=== PATIENT | male | born 1945 ===

== ENCOUNTER 2017-12-04 11:09 | Emergency (ER) | payer MEDICARE, BC ==
[2017-12-04 11:09] VITALS: BMI 26.3
--- NOTE | 2017-12-04 12:30 | C.PDOC ---
History Of Present Illness [id number] male with PMHx of kidney transplant 12 years ago, borderline diabetes, HTN, asthma, and implanted defibrillator presents to ED for complaints of abdominal pain associated with vomiting white phlegm and difficulty urinating that began at 2AM today. Denies headache, chest pain, SOB, fever, or diarrhea. Time Seen by Provider: 12/04/17 12:12 Chief Complaint (Nursing): Abdominal Pain History Per: Patient History/Exam Limitations: no limitations Onset/Duration Of Symptoms: Hrs, Sudden Onset Current Symptoms Are (Timing): Still Present Location Of Pain/Discomfort: Diffuse Radiation Of Pain To:: None Quality Of Discomfort: "Pain" Associated Symptoms: Vomiting, Urinary Symptoms. denies: Fever, Chills, Diarrhea Exacerbating Factors: None Alleviating Factors: None Last Bowel Movement: Today Recent travel outside of the [place]: No Past Medical History Reviewed: Historical Data, Nursing Documentation, Vital Signs Vital Signs: Last Vital Signs Temp 98.5 F 12/04/17 14:08 Pulse 90 12/04/17 14:08 Resp 20 12/04/17 14:08 BP 137/63 12/04/17 14:08 Pulse Ox 100 12/04/17 15:46 - Medical History PMH: Anemia, Arthritis, Asthma, Atrial Fibrillation, Bronchitis, CAD ( CARDIOMYOPATHY), Cardia Arrhythmia, CHF, COPD, Diabetes (NIDDM), Emphysema, Gastritis, Gastrointestinal Ulcer, HTN, Hypercholesterolemia, Hypothyroidism, Pneumonia, End Stage Renal Disease, Chronic Kidney Disease Surgical History: Pacemaker (Patient has a [facility] with ventricular tachycardia and an ICD.) - [employer] Procedures C.A.T. SCAN OF THORAX (02/06/13) CLOSED [PERCUTANEOUS] [NEEDLE] BIOPSY OF LUNG (02/06/13) COLONOSCOPY (08/17/06) ENDOSC POLYPECTOMY OF LG INTEST (01/01/15) ESOPHAGOGASTRODUODENOSCOPY [EGD] W/CLOSED BIOPSY (01/01/15) NAIL REMOVAL (12/31/13) PACKED CELL TRANSFUSION (01/01/15) Family History: States: Unknown Family Hx - Social History Hx Tobacco Use: No Hx Alcohol Use: Yes (OCCASIONAL) Hx Substance Use: No - Immunization History Hx Tetanus Toxoid Vaccination: Yes Hx Influenza Vaccination: Yes Hx Pneumococcal Vaccination: Yes Review Of Systems Constitutional: Negative for: Fever, Chills Cardiovascular: Negative for: Chest Pain Respiratory: Negative for: Shortness of Breath Gastrointestinal: Positive for: Vomiting, Abdominal Pain. Negative for: Diarrhea, Constipation Genitourinary: Positive for: Dysuria Skin: Negative for: Rash Neurological: Negative for: Weakness, Numbness Physical Exam - Physical Exam Appears: Non-toxic, No Acute Distress Skin: Warm, Dry Head: Atraumatic, Normacephalic Eye(s): bilateral: Scleral Icterus Oral Mucosa: Moist Neck: Supple Chest: Symmetrical, No Tenderness Cardiovascular: Rhythm Regular, No Murmur Respiratory: Normal Breath Sounds, No Decreased Breath Sounds, No Rales, No Rhonchi, No Wheezing Gastrointestinal/Abdominal: Soft, Tenderness (Right sided ), Distention (Right sided ), Guarding, No Rebound Extremity: Normal ROM, No Tenderness, No Pedal Edema, No Deformity Extremity: Bilateral: Normal Color And Temperature, Normal ROM Neurological/Psych: Oriented x3, Normal Speech, Normal Cognition Gait: Steady ED Course And Treatment - Laboratory Results Result Diagrams: 12/04/17 12:30 12/04/17 12:30 O2 Sat by Pulse Oximetry: 100 (RA) Pulse Ox Interpretation: Normal - Other Rad Abdomen Obstructive Series X-Ray X-Ray: Viewed By Me, Read By Radiologist Interpretation: PROCEDURE: Radiographs of the chest and abdomen (obstructive series). HISTORY: abd pain. COMPARISON: No prior. TECHNIQUE: AP radiograph of the chest, with upright and supine radiographs of the abdomen. FINDINGS: CHEST: Cardiomegaly is now apparent with mild pulmonary vascular congestion evident. Reticular markings are bilaterally increased which may indicate an element of CHF or underlying chronic interstitial pulmonary disease occurring in the interval. ACD generator is in replaced with added leads deployed into the heart as well. No pneumothorax or pleural effusion. Right apical fibrosis and pleural thickening are reiterated. Left apical fibrosis is also again evident. ABDOMEN AND PELVIS: Central bowel loops distended with gas and fluid and exhibit air-fluid levels on the erect view are identified which are suspicious for potential remainder partial disc small-bowel obstruction the an obstruction involving the transverse colon is not excluded with sigmoid colon felt to be more inferior at the left lower quadrant. No definite free intrarenal gas. Splenomegaly is not excluded. CT should be consider follow-up clinically warranted. Surgical clips in the right upper quadrant abdomen. IMPRESSION: 1. Questioned CHF pattern overlying interstitial pulmonary disease with AICD of dated/upgraded in the interval. There is no cardiomegaly. 2. Potential bowel obstruction pattern. Follow-up CT can be performed as clinically warranted splenomegaly not excluded. - CT Scan/US Abdomen US Other Rad Studies (CT/US): Read By Radiologist, Radiology Report Reviewed CT/US Interpretation: HISTORY: abd pain. COMPARISON: Abdomen ultrasound 11/18. TECHNIQUE: Sonographic evaluation of the abdomen. FINDINGS: LIVER: Measures 16.0 cm. Normal echogenicity of the liver parenchyma. No mass. No intrahepatic bile duct dilatation. GALLBLADDER: Mural thickening gallbladder is appreciated without sonographic Gilmore sign although cholelithiasis identified. No pericholecystic fluid collection. Clinically correlate nevertheless for potential cholecystitis. Small polyp or adenomyosis is in question at the gallbladder wall. COMMON BILE DUCT: Measures 7.3 mm. No stones. No dilatation. PANCREAS: The pancreas is completely obscured by overlying bowel gas. RIGHT KIDNEY: Measures 5.3cm. Grossly atrophic echogenic kidney without obstructive uropathy or defined mass related. There is difficult to exclude intrarenal calculus at the midpole region. LEFT KIDNEY: Measures 6.2cm. A grossly atrophic echogenic kidneys appreciate without obstructive uropathy. A 2.2 x 2.0 x 1.5 cm simple cyst is seen exophytic off the midpole anteriorly. No definite urolithiasis identified. SPLEEN: Normal in size and contour, 9.9 cm greatest dimension. No mass. AORTA: No aneurysmal dilatation. IVC: Unremarkable. OTHER FINDINGS: Two right renal transplant kidney seen in the right hemipelvis measuring 9.7 x 4.6 x 4.9 cm without hydronephrosis. Corticomedullary differentiation is quite poor in intrinsic medical renal disease is not excluded here. IMPRESSION: 1. Mild mural thickening of the gallbladder is appreciate with probable polyp or adenomyosis along with cholelithiasis. CBD is somewhat prominent at 7.3 mm but there is no choledocholithiasis or sonographic Gilmore sign. No pericholecystic fluid collection. Further clinical correlation required. 2. Nonvisualization of the pancreas. 3. Right pelvis transplant kidney with no evidence of hydronephrosis although intrinsic medical renal disease is possible here as described above. [place] kidneys are grossly atrophic and echogenic as discussed above. No hydronephrosis related however. Medical Decision Making Medical Decision Making: Administered Motrin for pain. Ordered EKG, blood work, Obstructive series X-Ray and Abdomen US. Differential diagnosis: -- Gallbladder disease -- Liver disease -- Pneumonia -- NH -- Colitis Disposition Counseled Patient/Family Regarding: Studies Performed, Diagnosis - Disposition Disposition: HOME/ ROUTINE Disposition Time: 15:54 Condition: IMPROVED Additional Instructions: Follow up with your doctor. Return to the Emergency Department if symptoms worsen. Prescriptions: Psyllium Husk/Aspartame [Metamucil Fiber Singles Packet] 3.4 gm PO DAILY #30 [email or web address] Instructions: Constipation, Adult (DC), Gallstones (DC) Forms: Rapid Vocabulary (Icelandic) - POA Present On Arrival: None - Clinical Impression Clinical Impression: Constipation - Scribe Statement The provider has reviewed the documentation as recorded by the Meronibkenneth Arora All medical record entries made by the Meronibkenneth were at my direction and personally dictated by me. I have reviewed the chart and agree that the record accurately reflects my personal performance of the history, physical exam, medical decision making, and the department course for this patient. I have also personally directed, reviewed, and agree with the discharge instructions and disposition.
[2017-12-04] MEDS ORDERED: Morphine 4 MG/ML VIAL ONE (12:37)
[2017-12-04 12:39] LABS: BASO % 0.3 % (0.0-2.0); EOS % 0.2 % (0.0-4.0); HEMOGLOBIN 10.8 g/dL (12.0-18.0); LYMPH # 0.5 K/uL (1.0-4.3); LYMPH % 4.9 % (20.0-40.0); MEAN CELL VOLUME 89.3 fL (80.0-94.0); MEAN CORPUSCULAR HEMOGLOBIN 29.7 pg (27.0-31.0); MEAN CORPUSCULAR HGB CONC 33.3 g/dL (33.0-37.0); MEAN PLATELET VOLUME 7.9 fL (7.2-11.7); MONO # 0.5 K/uL (0.0-0.8); MONO % 4.5 % (0.0-10.0); NEUT # 9.7 K/uL (1.8-7.0); NEUT % 90.1 % (50.0-75.0); PLATELET COUNT 213 K/uL (130-400); RBC 3.62 Mil/uL (4.40-5.90); WHITE BLOOD COUNT 10.7 K/uL (4.8-10.8)
[2017-12-04 12:50] LABS: ALB/GLOB RATIO 1.1 (1.0-2.1); ALBUMIN 3.5 g/dL (3.5-5.0); ALT/SGPT 63 U/L (21-72); AST/SGOT 223 U/L (17-59); BLOOD UREA NITROGEN 17 mg/dL (9-20); CALCIUM 9.4 mg/dl (8.6-10.4); GFR AFRICAN-AMERICAN > 60; GFR NON-AFRICAN AMERICAN 60; LIPASE 79 U/L (23-300)
[2017-12-04 13:01] LABS: B-TYPE NATRIURETIC PEPTIDE 4700 pg/mL (0-900)
--- NOTE | 2017-12-04 13:14 | RAD ---
PROCEDURE: Radiographs of the chest and abdomen (obstructive series) HISTORY: abd pain COMPARISON: No prior. TECHNIQUE: AP radiograph of the chest, with upright and supine radiographs of the abdomen. FINDINGS: CHEST: Cardiomegaly is now apparent with mild pulmonary vascular congestion evident. Reticular markings are bilaterally increased which may indicate an element of CHF or underlying chronic interstitial pulmonary disease occurring in the interval. ACD generator is in replaced with added leads deployed into the heart as well. No pneumothorax or pleural effusion. Right apical fibrosis and pleural thickening are reiterated. Left apical fibrosis is also again evident. ABDOMEN AND PELVIS: Central bowel loops distended with gas and fluid and exhibit air-fluid levels on the erect view are identified which are suspicious for potential remainder partial disc small-bowel obstruction the an obstruction involving the transverse colon is not excluded with sigmoid colon felt to be more inferior at the left lower quadrant. No definite free intrarenal gas. Splenomegaly is not excluded. CT should be consider follow-up clinically warranted. Surgical clips in the right upper quadrant abdomen. IMPRESSION: 1. Questioned CHF pattern overlying interstitial pulmonary disease with AICD of dated/upgraded in the interval. There is no cardiomegaly. 2. Potential bowel obstruction pattern. Follow-up CT can be performed as clinically warranted splenomegaly not excluded.
[2017-12-04 13:22] LABS: ANISOCYTOSIS SLIGHT; BANDS 1 % (0-2); HYPOCHROMIC SLIGHT; LYMPHOCYTE 3 % (20-40); MONOCYTE 4 % (0-10); NEUTROPHIL 92 % (50-75); PLATELET ESTIMATE NORMAL (NORMAL); TOTAL CELLS COUNTED 100
[2017-12-04 13:23] LABS: POLYCHROMIC SLIGHT; TOXIC GRANULATION PRESENT
--- NOTE | 2017-12-04 15:33 | US ---
HISTORY: abd pain COMPARISON: Abdomen ultrasound 11/18/2014. TECHNIQUE: Sonographic evaluation of the abdomen. FINDINGS: LIVER: Measures 16.0 cm. Normal echogenicity of the liver parenchyma. No mass. No intrahepatic bile duct dilatation. GALLBLADDER: Mural thickening gallbladder is appreciated without sonographic Gilmore sign although cholelithiasis identified. No pericholecystic fluid collection. Clinically correlate nevertheless for potential cholecystitis. Small polyp or adenomyosis is in question at the gallbladder wall. COMMON BILE DUCT: Measures 7.3 mm. No stones. No dilatation. PANCREAS: The pancreas is completely obscured by overlying bowel gas. RIGHT KIDNEY: Measures 5.3cm. Grossly atrophic echogenic kidney without obstructive uropathy or defined mass related. There is difficult to exclude intrarenal calculus at the midpole region. LEFT KIDNEY: Measures 6.2cm. A grossly atrophic echogenic kidneys appreciate without obstructive uropathy. A 2.2 x 2.0 x 1.5 cm simple cyst is seen exophytic off the midpole anteriorly. No definite urolithiasis identified. SPLEEN: Normal in size and contour, 9.9 cm greatest dimension. No mass. AORTA: No aneurysmal dilatation. IVC: Unremarkable. OTHER FINDINGS: Two right renal transplant kidney seen in the right hemipelvis measuring 9.7 x 4.6 x 4.9 cm without hydronephrosis. Corticomedullary differentiation is quite poor in intrinsic medical renal disease is not excluded here. IMPRESSION: 1. Mild mural thickening of the gallbladder is appreciate with probable polyp or adenomyosis along with cholelithiasis. CBD is somewhat prominent at 7.3 mm but there is no choledocholithiasis or sonographic Gilmore sign. No pericholecystic fluid collection. Further clinical correlation required. 2. Nonvisualization of the pancreas. 3. Right pelvis transplant kidney with no evidence of hydronephrosis although intrinsic medical renal disease is possible here as described above. [place] kidneys are grossly atrophic and echogenic as discussed above. No hydronephrosis related however.
[2017-12-04 16:02] VITALS: BP 155/81; PULSE 84; RESP 14; TEMP 98.1; O2SAT 99
== END 2017-12-04 16:05 | disposition home or self-care (01) ==
LOC: C.ER 11:09
DX: K59.00 Constipation, unspecified (principal); D64.9 Anemia, unspecified; E78.00 Pure hypercholesterolemia, unspecified; E11.22 Type 2 diabetes mellitus with diabetic chronic kidney disease; I12.0 Hypertensive chronic kidney disease with stage 5 chronic kidney disease or end stage renal disease; N18.6 End stage renal disease; Z94.0 Kidney transplant status; Z95.810 Presence of automatic (implantable) cardiac defibrillator; Z87.891 Personal history of nicotine dependence
CPT/HCPCS: 74022; 76700; 80053; 83690; 83880; 84484; 85025; 96374; 99285; J2270

== ENCOUNTER 2017-12-27 21:01 | Inpatient (IN) | payer MEDICARE, BC ==
[2017-12-27 21:02] VITALS: BMI 26.3
[2017-12-27] MEDS ORDERED: Sodium Chloride 0.9% 1,000 ML IV ONE (21:30)
[2017-12-27 21:42] LABS: BASO # 0.1 K/uL (0.0-0.2); EOS % 0.2 % (0.0-4.0); HEMOGLOBIN 10.4 g/dL (12.0-18.0); LYMPH # 0.6 K/uL (1.0-4.3); MONO # 0.4 K/uL (0.0-0.8); MONO % 1.6 % (0.0-10.0); NEUT # 21.9 K/uL (1.8-7.0)
[2017-12-27 21:49] LABS: VENOUS BLOOD GAS BASE EXCESS 6.9 mmol/L (0.0-2.0); VENOUS BLOOD GAS PCO2 52 mmHg (40-60); VENOUS BLOOD GAS PO2 21 mm/Hg (30-55); VENOUS BLOOD PH 7.41 (7.32-7.43)
[2017-12-27 21:51] LABS: INR 1.2
[2017-12-27 21:54] LABS: BASO % 0.2 % (0.0-2.0); LYMPH % 2.7 % (20.0-40.0); MEAN CELL VOLUME 85.1 fL (80.0-94.0); MEAN CORPUSCULAR HEMOGLOBIN 27.5 pg (27.0-31.0); MEAN CORPUSCULAR HGB CONC 32.3 g/dL (33.0-37.0); MEAN PLATELET VOLUME 7.9 fL (7.2-11.7); NEUT % 95.3 % (50.0-75.0); PLATELET COUNT 261 K/uL (130-400); RED CELL DISTRIBUTION WIDTH 17.2 % (11.5-14.5)
[2017-12-27] MEDS ORDERED: Sodium Chloride 0.9% 500 ML IV STA (21:55)
[2017-12-27 22:00] LABS: URINE BILIRUBIN NEGATIVE (NEGATIVE); URINE BLOOD NEGATIVE (NEGATIVE); URINE CLARITY Clear (Clear); URINE COLOR Straw (YELLOW); URINE GLUCOSE (UA) NORMAL (Normal); URINE LEUKOCYTE ESTERASE NEG Leu/uL (Negative); URINE PROTEIN 1+ mg/dL (NEGATIVE); URINE UROBILINOGEN NORMAL mg/dL (0.2-1.0)
[2017-12-27 22:02] LABS: ALB/GLOB RATIO 1.3 (1.0-2.1); ALBUMIN 4.1 g/dL (3.5-5.0); CALCIUM 7.6 mg/dl (8.6-10.4)
[2017-12-27] MEDS ORDERED: Moxifloxacin IV 400mg/250ml NS 400 MG/250 ML BAG IVPB STA (22:11)
[2017-12-27 22:13] LABS: TROPONIN I 0.154 ng/mL (0.00-0.120)
[2017-12-27] MEDS ORDERED: Piperacillin/Tazobact 3.375 gm 100 ML IVPB STA (22:13)
[2017-12-27] MEDS ORDERED: Piperacillin/Tazobact 3.375 gm 100 ML IVPB ONE (22:18)
[2017-12-27 22:26] LABS: FREE T4 1.24 ng/dL (0.78-2.19)
[2017-12-27 22:27] LABS: ANISOCYTOSIS SLIGHT; BANDS 17 % (0-2); HYPOCHROMIC SLIGHT; LYMPHOCYTE 2 % (20-40); MONOCYTE 1 % (0-10); NEUTROPHIL 80 % (50-75); PLATELET ESTIMATE NORMAL (NORMAL); POLYCHROMIC SLIGHT; TOTAL CELLS COUNTED 100
[2017-12-27 22:28] LABS: OVALOCYTES SLIGHT
[2017-12-27] MEDS ORDERED: Vancomycin 1 GM 1 GM/250 ML BAG IVPB STA (22:59)
[2017-12-27] MEDS ORDERED: Vancomycin 1 gm/NS 200 ml 1 GM/200 ML BAG IVPB STA (23:03)
--- NOTE | 2017-12-27 23:32 | C.PDOC ---
Time Seen by Provider: 12/27/17 21:10 Chief Complaint (Nursing): Fever History Per: Patient, Family History/Exam Limitations: clinical condition Onset/Duration Of Symptoms: Days (few) Current Symptoms Are (Timing): Worse Associated Symptoms: Fever Severity: Severe Additional History Per: Prior Records Past Medical History Reviewed: Historical Data, Nursing Documentation, Vital Signs Vital Signs: Last Vital Signs Temp 104 F H 12/27/17 21:45 Pulse 115 H 12/27/17 22:09 Resp 26 H 12/27/17 22:09 BP 126/74 12/27/17 22:09 Pulse Ox 94 L 12/27/17 23:34 - Medical History PMH: Anemia, Arthritis (Gout), Asthma, Atrial Fibrillation, Bronchitis, CAD ( CARDIOMYOPATHY), Cardia Arrhythmia, CHF, COPD, Diabetes (NIDDM), Emphysema, Gastritis, Gastrointestinal Ulcer, HTN, Hypercholesterolemia, Hypothyroidism, Pneumonia, End Stage Renal Disease, Chronic Kidney Disease Other PMH: Endocarditis Surgical History: Pacemaker (Patient has a [facility] with ventricular tachycardia and an ICD.) Other Surgeries: Renal transplant - [employer] Procedures C.A.T. SCAN OF THORAX (02/06/13) CLOSED [PERCUTANEOUS] [NEEDLE] BIOPSY OF LUNG (02/06/13) COLONOSCOPY (08/17/06) ENDOSC POLYPECTOMY OF LG INTEST (01/01/15) ESOPHAGOGASTRODUODENOSCOPY [EGD] W/CLOSED BIOPSY (01/01/15) NAIL REMOVAL (12/31/13) PACKED CELL TRANSFUSION (01/01/15) Family History: States: Unknown Family Hx - Social History Hx Tobacco Use: No Hx Alcohol Use: Yes (OCCASIONAL) Hx Substance Use: No - Immunization History Hx Tetanus Toxoid Vaccination: Yes Hx Influenza Vaccination: Yes Hx Pneumococcal Vaccination: Yes Review Of Systems Constitutional: Positive for: Fever, Weakness, Malaise Cardiovascular: Negative for: Chest Pain Respiratory: Negative for: Cough Gastrointestinal: Positive for: Diarrhea (chronic). Negative for: Vomiting, Abdominal Pain Musculoskeletal: Negative for: Neck Pain Neurological: Negative for: Seizures, Headache Physical Exam - Physical Exam Appears: In Acute Distress, Chronically Ill, Other (Lethargic) Skin: Warm, Dry Head: Atraumatic, Normacephalic Eye(s): bilateral: PERRL, EOMI Oral Mucosa: Dry Neck: Normal ROM, Supple Cardiovascular: Rhythm Irregular (tachycardia) Respiratory: No Accessory Muscle Use, Rhonchi Gastrointestinal/Abdominal: Soft, No Tenderness Extremity: Normal ROM, Swelling (left knee) Neurological/Psych: Oriented x3, Normal Motor, Normal Sensation ED Course And Treatment - Laboratory Results Result Diagrams: 12/27/17 21:37 12/27/17 21:37 Lab Interpretation: Abnormal Interpretation Of Abnormal: Leukocytosis with left shift. Elevated BUN/Cr. Positive Troponin. ECG: Interpreted By Me, Viewed By Me ECG Rhythm: Atrial Fibrillation, Nonspecific Changes ECG Interpretation: Abnormal Interpretation Of ECG: Afib with RVR Rate From EC O2 Sat by Pulse Oximetry: 94 Pulse Ox Interpretation: Other Interpretation Of Abnormal: Borderline - Radiology CXR: Interpreted by Me, Viewed By Me CXR Interpretation: Yes: Infiltrates - Physician Consult Information Physician Contacted: Dennis Orellana (ICU) Outcome Of Conversation: He evaluated pt in the ED and admitted to ICU. Progress - Interventions Interventions:: Observation, Intravenous fluid, Oxygen - Medications Administered Intravenous: Other (Abx) - Data Reviewed Data Reviewed: Lab, Diagnostic imaging, EKG, Old records - Patient Status Patient status: Partially improved, Critical - Critical Care Citical Care: Excluding Proc Time Critical Care Time: 60 minutes - Continuity of Care Discussed patient case with:: Patient, Family-HIPPA compliant, ED Nurse, PMD Discussed pt. case with training consultant/specialty: Pulmonary/Crit. Care - Patient Plan Patient Plan: Admission, ICU Disposition Discussed With : Reji Bradshaw Comment: He accepted pt on his service. Doctor Will See Patient In The: Hospital Counseled Patient/Family Regarding: Studies Performed, Diagnosis - Disposition Disposition: HOSPITALIZED Disposition Time: 23:37 Condition: SERIOUS - Clinical Impression Clinical Impression: Atrial fibrillation with rapid ventricular response, Severe sepsis
[2017-12-28] MEDS: Sodium Chloride 0.9% 1,000 ML IV SCH ×3 (00:01→21:05)
[2017-12-28] MEDS: Piperacill/Tazo 2.25gm in Dex 2.25 GM/50 ML BAG IVPB SCH ×5 (00:02→23:50)
--- NOTE | 2017-12-28 00:03 | CP.PCM.CON ---
History of Present Illness - History of Present Illness History of Present Illness: 72 M with h/o renal transplant 2004, h/o AICD 2011, h/o dm, htn, afib, recent gi bleeding, recent endocarditis when admitted in [facility], currently details not known, h/o recent left knee ? bursal tap and steroid injection. Patient presented to the ER with chills rigors, for 2-3 days, and noticed fever of 104 F in ER, tachycardic, in afib, leucocytosis. Patient denied, cough, cold, runny nose, any pain, sob, diarrhea. C/o some left knee pain post tap and was warmer as compared to the the right but on tap only scant fluid no to sufficient for the test. PMH as above Meds reviewed from prior record, recent meds being updated Allergies Metoprolol c/o itching Family history not contributory Social history, lives with family, denies smoking, alcohol, illicit drugs Review of Systems - Review of Systems All systems: reviewed and no additional remarkable complaints except (HPI) Past Patient History - Infectious Disease Hx of Infectious Diseases: None - Tetanus Immunizations Tetanus Immunization: Unknown - Past Medical History & Family History Past Medical History?: Yes - Past Social History Smoking Status: Former Smoker Alcohol: None Drugs: Denies Home Situation {Lives}: With Family - CARDIAC Hx Atrial Fibrillation: Yes Hx Cardia Arrhythmia: Yes Hx Congestive Heart Failure: Yes Hx Hypercholesterolemia: Yes Hx Hypertension: Yes Hx Pacemaker: Yes (Patient has a ISSH with ventricular tachycardia and an ICD.) - PULMONARY Hx Asthma: Yes Hx Bronchitis: Yes Hx Chronic Obstructive Pulmonary Disease (COPD): Yes Hx Emphysema: Yes Hx Pneumonia: Yes - NEUROLOGICAL Hx Neurological Disorder: No - HEENT Hx HEENT Problems: Yes Hx Cataracts: Yes (bilat iol) - RENAL Hx Chronic Kidney Disease: Yes - ENDOCRINE/METABOLIC Hx Hypothyroidism: Yes - HEMATOLOGICAL/ONCOLOGICAL Hx Anemia: Yes - INTEGUMENTARY Hx Dermatological Problems: Yes (sun sentivity) - MUSCULOSKELETAL/RHEUMATOLOGICAL Hx Arthritis: Yes (Gout) - GASTROINTESTINAL Hx Gastritis: Yes - GENITOURINARY/GYNECOLOGICAL Hx Genitourinary Disorders: No - PSYCHIATRIC Hx Substance Use: No - SURGICAL HISTORY Hx Kidney Transplant: Yes () Other/Comment: THYROID SURGERY-2004. Hx of perforated bowel corrected with surgery. AICD - ANESTHESIA Hx Anesthesia: Yes Hx Anesthesia Reactions: No Hx Malignant Hyperthermia: No Meds Allergies/Adverse Reactions: Allergies Allergy/AdvReac Type Severity Reaction Status Date / Time metoprolol Allergy Intermediate ITCHING Verified 12/27/17 21:09 - Medications Medications: Current Medications Acetaminophen (Tylenol 325mg Tab) 325 mg PO Q6 PRN PRN Reason: Fever >100.4 F Colchicine (Colocrys) 0.6 mg PO DAILY FAHEEM Heparin Sodium (Porcine) (Heparin) 3,000 units SC Q12 FAHEEM Home Med (Salmeterol Xinafoate/Fluticaso [Advair Hfa 230-21]) 60 puff IH BID PRN PRN Reason: Shortness of Breath Vancomycin/Sodium Chloride (Vancomycin 1 Gm/Ns 200 Ml) 1 gm in 200 mls @ 166.667 mls/hr IVPB STAT STA PRN Reason: Protocol Stop: 12/28/17 00:14 Last Admin: 12/27/17 23:13 Dose: 166.667 mls/hr Piperacillin Sod/Tazobactam Sod (Zosyn 2.25 Gm Iv Premix) 2.25 gm in 50 mls @ 100 mls/hr IVPB Q6H FAHEEM PRN Reason: Protocol Sodium Chloride (Sodium Chloride 0.9%) 1,000 mls @ 100 mls/hr IV .Q10H FAHEEM Vancomycin HCl 1 gm/ Sodium (Chloride) 250 mls @ 166.7 mls/hr IVPB Q24H FAHEEM PRN Reason: Protocol Levothyroxine Sodium (Synthroid) 150 mcg PO DAILY FAHEEM Montelukast Sodium (Singulair) 10 mg PO DAILY FAHEEM Pantoprazole Sodium (Protonix Ec Tab) 40 mg PO DAILY FAHEEM Tacrolimus (Prograf Cap) 1 mg PO BID FAHEEM Physical Exam - Additional Findings Additional findings: * HEENT ABILIO * Neck supple * Chest Clear, aicd on the left side * CVS irregular, no gallop or rub * PA soft, nt bs present * Ext in feet 2+ edema, left knee warmer then rest of the body good ROM, dry tap , despite being in the joint, bursa swelling noticed. * Skin normal turgor Results - Vital Signs Recent Vital Signs: Last Vital Signs Temp 104 F H 12/27/17 21:45 Pulse 115 H 12/27/17 22:09 Resp 26 H 12/27/17 22:09 BP 126/74 12/27/17 22:09 Pulse Ox 94 L 12/27/17 23:39 - Labs Result Diagrams: 12/27/17 21:37 12/27/17 21:37 Labs: Laboratory Results - last 24 hr 12/27/17 12/27/17 12/27/17 21:32 21:37 21:37 WBC 23.0 H D RBC 3.80 L Hgb 10.4 L Hct 32.3 L MCV 85.1 D MCH 27.5 MCHC 32.3 L RDW 17.2 H Plt Count 261 MPV 7.9 Neut % (Auto) 95.3 H Lymph % (Auto) 2.7 L [place] % (Auto) 1.6 Eos % (Auto) 0.2 Baso % (Auto) 0.2 Neut # (Auto) 21.9 H Lymph # (Auto) 0.6 L [place] # (Auto) 0.4 Eos # (Auto) 0.0 Baso # (Auto) 0.1 Neutrophils % (Manual) 80 H Band Neutrophils % 17 H* Lymphocytes % (Manual) 2 L Monocytes % (Manual) 1 Platelet Estimate Normal Polychromasia Slight Hypochromasia (manual) Slight Anisocytosis (manual) Slight Ovalocytes Slight PT INR APTT pO2 VBG pH VBG pCO2 VBG HCO3 VBG Total CO2 VBG O2 Sat (Calc) VBG Base Excess VBG Potassium Glucose Lactate Sodium 134 Potassium 3.7 Chloride 89 L Carbon Dioxide 30 Anion Gap 19 BUN 44 H Creatinine 1.7 H Est GFR ( Amer) 48 Est GFR (Non-Af Amer) 40 POC Glucose (mg/dL) 98 Random Glucose 82 Calcium 7.6 L Total Bilirubin 0.7 AST 45 ALT 71 Alkaline Phosphatase 110 Troponin I 0.1540 H* NT-Pro-B Natriuret Pep 7190 H Total Protein 7.2 Albumin 4.1 Globulin 3.1 Albumin/Globulin Ratio 1.3 Free T4 TSH 3rd Generation Venous Blood Potassium Urine Color Urine Clarity Urine pH Ur Specific [place] Urine Protein Urine Glucose (UA) Urine Ketones Urine Blood Urine Nitrate Urine Bilirubin Urine Urobilinogen Ur Leukocyte Esterase Urine RBC (Auto) B-Hydroxybutyrate 0.10 12/27/17 12/27/17 12/27/17 21:37 21:43 21:45 WBC RBC Hgb Hct MCV MCH MCHC RDW Plt Count MPV Neut % (Auto) Lymph % (Auto) [place] % (Auto) Eos % (Auto) Baso % (Auto) Neut # (Auto) Lymph # (Auto) [place] # (Auto) Eos # (Auto) Baso # (Auto) Neutrophils % (Manual) Band Neutrophils % Lymphocytes % (Manual) Monocytes % (Manual) Platelet Estimate Polychromasia Hypochromasia (manual) Anisocytosis (manual) Ovalocytes PT 13.0 H INR 1.2 APTT 30 pO2 21 L VBG pH 7.41 VBG pCO2 52 VBG HCO3 28.6 VBG Total CO2 34.6 H VBG O2 Sat (Calc) 34.9 L VBG Base Excess 6.9 H VBG Potassium 3.6 Glucose 81 Lactate 3.9 H Sodium 136.0 Potassium Chloride 92.0 L Carbon Dioxide Anion Gap BUN Creatinine Est GFR ( Amer) Est GFR (Non-Af Amer) POC Glucose (mg/dL) Random Glucose Calcium Total Bilirubin AST ALT Alkaline Phosphatase Troponin I NT-Pro-B Natriuret Pep Total Protein Albumin Globulin Albumin/Globulin Ratio Free T4 1.24 TSH 3rd Generation 20.40 H Venous Blood Potassium 3.6 Urine Color Urine Clarity Urine pH Ur Specific [place] Urine Protein Urine Glucose (UA) Urine Ketones Urine Blood Urine Nitrate Urine Bilirubin Urine Urobilinogen Ur Leukocyte Esterase Urine RBC (Auto) B-Hydroxybutyrate 12/27/17 21:53 WBC RBC Hgb Hct MCV MCH MCHC RDW Plt Count MPV Neut % (Auto) Lymph % (Auto) [place] % (Auto) Eos % (Auto) Baso % (Auto) Neut # (Auto) Lymph # (Auto) [place] # (Auto) Eos # (Auto) Baso # (Auto) Neutrophils % (Manual) Band Neutrophils % Lymphocytes % (Manual) Monocytes % (Manual) Platelet Estimate Polychromasia Hypochromasia (manual) Anisocytosis (manual) Ovalocytes PT INR APTT pO2 VBG pH VBG pCO2 VBG HCO3 VBG Total CO2 VBG O2 Sat (Calc) VBG Base Excess VBG Potassium Glucose Lactate Sodium Potassium Chloride Carbon Dioxide Anion Gap BUN Creatinine Est GFR ( Amer) Est GFR (Non-Af Amer) POC Glucose (mg/dL) Random Glucose Calcium Total Bilirubin AST ALT Alkaline Phosphatase Troponin I NT-Pro-B Natriuret Pep Total Protein Albumin Globulin Albumin/Globulin Ratio Free T4 TSH 3rd Generation Venous Blood Potassium Urine Color Straw Urine Clarity Clear Urine pH 7.0 Ur Specific [place] 1.005 Urine Protein 1+ H Urine Glucose (UA) Normal Urine Ketones Negative Urine Blood Negative Urine Nitrate Negative Urine Bilirubin Negative Urine Urobilinogen Normal Ur Leukocyte Esterase Neg Urine RBC (Auto) < 1 B-Hydroxybutyrate Assessment & Plan - Assessment and Plan (Free Text) Assessment: * High fever in patient immunocompromised, with recent left knee bursal tap, recent gi bleeding, recent h/o endocarditis, patient was in [facility] * Afib with RVR likey form fever, s/p aicd * H/o renal transplant * DM * HTN history * Allergic to pcn * slight elevation in troponin likely form sepsis * Plan: * Broad spectrum abx * maintenance fluid * BC repeat * Echo * Records form [facility] or PMD * Gi/DVT prophylaxis * Continue tacrolimus * Again confirm home meds * accuchecks * See orders for detail. * Due to multiple co-morbidities observe in ICU
[2017-12-28 00:33] LABS: VENOUS BLOOD GAS BASE EXCESS 3.2 mmol/L (0.0-2.0); VENOUS BLOOD GAS PCO2 37 mmHg (40-60); VENOUS BLOOD GAS PO2 48 mm/Hg (30-55); VENOUS BLOOD PH 7.47 (7.32-7.43)
[2017-12-28] MEDS ORDERED: Sodium Chloride 0.9% 500 ML IV ONE (03:02)
[2017-12-28 06:11] LABS: BASO # 0.1 K/uL (0.0-0.2); BASO % 0.3 % (0.0-2.0); EOS # 0.1 K/uL (0.0-0.7); EOS % 0.4 % (0.0-4.0); HEMOGLOBIN 8.5 g/dL (12.0-18.0); LYMPH # 0.5 K/uL (1.0-4.3); LYMPH % 2.2 % (20.0-40.0); MEAN CELL VOLUME 85.4 fL (80.0-94.0); MEAN CORPUSCULAR HEMOGLOBIN 27.7 pg (27.0-31.0); MEAN CORPUSCULAR HGB CONC 32.5 g/dL (33.0-37.0); MEAN PLATELET VOLUME 8.5 fL (7.2-11.7); MONO # 0.9 K/uL (0.0-0.8); MONO % 3.5 % (0.0-10.0); NEUT % 93.6 % (50.0-75.0); NRBC % 0.1 % (0.0-2.0); PLATELET COUNT 200 K/uL (130-400); RBC 3.06 Mil/uL (4.40-5.90); WHITE BLOOD COUNT 24.6 K/uL (4.8-10.8)
[2017-12-28] MEDS: Levothyroxine 150 MCG TAB PO SCH (06:21)
[2017-12-28 06:41] LABS: ALB/GLOB RATIO 1.1 (1.0-2.1); ALBUMIN 2.8 g/dL (3.5-5.0); ALT/SGPT 69 U/L (21-72); AST/SGOT 59 U/L (17-59); BLOOD UREA NITROGEN 42 mg/dL (9-20); CALCIUM 6.2 mg/dl (8.6-10.4); GFR AFRICAN-AMERICAN 48; GFR NON-AFRICAN AMERICAN 40
--- NOTE | 2017-12-28 07:41 | CP.CCUPN ---
<Nuvia Cheng - Last Filed: 12/28/17 15:44> CCU Subjective - Physician Review Subjective (Free Text): This is a 72 year old male with PMHx of HTN, Atrial Fibrillation (on Eliquis), HTN, T2DM, AICD, COPD, Hypothyroidism, renal transplant 2004, EGD 2014 - erosive gastritis, Colonoscopy 2014 - resection of polyp s/p resection of carcinoma of right colon, hx GI bleed 2014, Endocarditis recently treated in [facility], recent left knee tap (unclear what exactly was performed), admitted to the ICU for sepsis in an immunocompromised patient, atrial fibrillation with RVR , and NSTEMI. CCU Objective - Vital Signs / Intake & Output Vital Signs (Last 4 hours): Vital Signs Temp 12/28/17 04:00 98.3 F Intake and Output (Last 8hrs): Intake & Output 12/27/17 12/28/17 12/28/17 22:59 06:59 14:59 Intake Total 2400 Output Total 1750 Balance 650 Weight 113 lb 113 lb 11.2 oz Intake: IV 1250 Intake, IV Amount 1150 Right Forearm 1150 Output: Urine 1750 Urethral (Ramires) 500 Urine, Voided 550 Other: Voiding Method Indwelling Catheter - Physical Exam Head: Positive for: Atraumatic, Normocephalic Pupils: Positive for: PERRL Extroacular Muscles: Positive for: EOMI Conjunctiva: Positive for: Normal Mouth: Positive for: Moist Mucous Membranes, Dry Neck: Positive for: Normal Range of Motion Respiratory/Chest: Positive for: Decreased Breath Sounds Cardiovascular: Positive for: Tachycardic Abdomen: Positive for: Normal Bowel Sounds. Negative for: Tenderness, Distention Upper Extremity: Positive for: Normal Inspection, NORMAL PULSES, Neurovascularly Intact, Capillary Refill < 2s Lower Extremity: Positive for: Normal Inspection, NORMAL PULSES, Neurovascularly Intact, Capillary Refill < 2 s Neurological: Positive for: GCS=15, CN II-XII Intact Skin: Positive for: Warm, Dry, Normal Color Psychiatric: Positive for: Alert, Oriented x 3, Normal Insight, Normal Concentration - Medications Active Medications: Active Medications Generic Name Dose Route Start Last Admin Trade Name Freq PRN Reason Stop Dose Admin Acetaminophen 325 mg 12/27/17 23:38 Tylenol 325mg Tab PO Q6 PRN Fever >100.4 F Colchicine 0.6 mg 12/28/17 10:00 Colocrys PO DAILY FAHEEM Heparin Sodium (Porcine) 3,000 units 12/28/17 10:00 Heparin SC Q12 FAHEEM Piperacillin Sod/Tazobactam Sod 2.25 gm in 50 mls @ 100 mls/hr 12/27/17 23:45 12/28/17 06:06 Zosyn 2.25 Gm Iv Premix IVPB 100 mls/hr Q6H FAHEEM Administration Protocol Sodium Chloride 1,000 mls @ 100 mls/hr 12/27/17 23:45 12/28/17 00:01 Sodium Chloride 0.9% IV 100 mls/hr .Q10H FAHEEM Administration Vancomycin/Sodium Chloride 1 gm in 200 mls @ 133 mls/hr 12/28/17 23:30 Vancomycin 1 Gm/Ns 200 Ml IVPB 01/02/18 23:31 Q24H FAHEEM Protocol Levothyroxine Sodium 150 mcg 12/28/17 06:30 12/28/17 06:21 Synthroid PO 150 mcg DAILY@0630 FAHEEM Administration Montelukast Sodium 10 mg 12/28/17 10:00 Singulair PO DAILY FAHEEM Pantoprazole Sodium 40 mg 12/28/17 10:00 Protonix Ec Tab PO DAILY FAHEEM Fluticasone/Salmeterol 1 puff 12/28/17 08:00 Advair Diskus 250/50 INH RQ12 FAHEEM Tacrolimus 1 mg 12/28/17 10:00 Prograf Cap PO BID FAHEEM - Patient Studies Lab Studies: Lab Studies 12/28/17 12/28/17 12/28/17 Range/Units 07:12 05:56 05:56 WBC 24.6 H (4.8-10.8) K/uL RBC 3.06 L (4.40-5.90) Mil/uL Hgb 8.5 L (12.0-18.0) g/dL Hct 26.1 L (35.0-51.0) % MCV 85.4 (80.0-94.0) fL MCH 27.7 (27.0-31.0) pg MCHC 32.5 L (33.0-37.0) g/dL RDW 17.0 H (11.5-14.5) % Plt Count 200 (130-400) K/uL MPV 8.5 (7.2-11.7) fL Neut % (Auto) 93.6 H (50.0-75.0) % Lymph % (Auto) 2.2 L (20.0-40.0) % [place] % (Auto) 3.5 (0.0-10.0) % Eos % (Auto) 0.4 (0.0-4.0) % Baso % (Auto) 0.3 (0.0-2.0) % Neut # (Auto) 23.0 H (1.8-7.0) K/uL Lymph # (Auto) 0.5 L (1.0-4.3) K/uL [place] # (Auto) 0.9 H (0.0-0.8) K/uL Eos # (Auto) 0.1 (0.0-0.7) K/uL Baso # (Auto) 0.1 (0.0-0.2) K/uL Neutrophils % (Manual) (50-75) % Band Neutrophils % (0-2) % Lymphocytes % (Manual) (20-40) % Monocytes % (Manual) (0-10) % Platelet Estimate (NORMAL) Polychromasia Hypochromasia (manual) Anisocytosis (manual) Ovalocytes PT (9.7-12.2) SECONDS INR APTT (21-34) SECONDS pO2 (30-55) mm/Hg VBG pH (7.32-7.43) VBG pCO2 (40-60) mmHg VBG HCO3 mmol/L VBG Total CO2 (22-28) mmol/L VBG O2 Sat (Calc) (40-65) % VBG Base Excess (0.0-2.0) mmol/L VBG Potassium (3.6-5.2) mmol/L Glucose (75-110) mg/dl Lactate (0.7-2.1) mmol/L Sodium 137 (132-148) mmol/L Potassium 3.6 (3.6-5.2) mmol/L Chloride 100 (98-107) mmol/L Carbon Dioxide 27 (22-30) mmol/L Anion Gap 13 (10-20) BUN 42 H (9-20) mg/dL Creatinine 1.7 H (0.8-1.5) mg/dL Est GFR ( Amer) 48 Est GFR (Non-Af Amer) 40 POC Glucose (mg/dL) 99 (65-110) mg/dL Random Glucose 75 (75-110) mg/dL Calcium 6.2 L (8.6-10.4) mg/dl Total Bilirubin 0.7 (0.2-1.3) mg/dL AST 59 D (17-59) U/L ALT 69 (21-72) U/L Alkaline Phosphatase 127 H (38-126) U/L Total Creatine Kinase < 20 L (55-170) U/L Troponin I 0.2990 H* (0.00-0.120) ng/mL NT-Pro-B Natriuret Pep (0-900) pg/mL Total Protein 5.3 L (6.3-8.3) g/dL Albumin 2.8 L D (3.5-5.0) g/dL Globulin 2.5 (2.2-3.9) gm/dL Albumin/Globulin Ratio 1.1 (1.0-2.1) Free T4 (0.78-2.19) ng/dL TSH 3rd Generation (0.46-4.68) mIU/L Venous Blood Potassium (3.6-5.2) mmol/L Urine Color (YELLOW) Urine Clarity (Clear) Urine pH (5.0-8.0) Ur Specific [place] (1.003-1.030) Urine Protein (NEGATIVE) mg/dL Urine Glucose (UA) (Normal) mg/dL Urine Ketones (NEGATIVE) mg/dL Urine Blood (NEGATIVE) Urine Nitrate (NEGATIVE) Urine Bilirubin (NEGATIVE) Urine Urobilinogen (0.2-1.0) mg/dL Ur Leukocyte Esterase (Negative) Vicente/uL Urine RBC (Auto) (0-3) /hpf B-Hydroxybutyrate (0.02-0.27) mM 12/28/17 12/27/17 12/27/17 Range/Units 00:25 21:53 21:45 WBC (4.8-10.8) K/uL RBC (4.40-5.90) Mil/uL Hgb (12.0-18.0) g/dL Hct (35.0-51.0) % MCV (80.0-94.0) fL MCH (27.0-31.0) pg MCHC (33.0-37.0) g/dL RDW (11.5-14.5) % Plt Count (130-400) K/uL MPV (7.2-11.7) fL Neut % (Auto) (50.0-75.0) % Lymph % (Auto) (20.0-40.0) % [place] % (Auto) (0.0-10.0) % Eos % (Auto) (0.0-4.0) % Baso % (Auto) (0.0-2.0) % Neut # (Auto) (1.8-7.0) K/uL Lymph # (Auto) (1.0-4.3) K/uL [place] # (Auto) (0.0-0.8) K/uL Eos # (Auto) (0.0-0.7) K/uL Baso # (Auto) (0.0-0.2) K/uL Neutrophils % (Manual) (50-75) % Band Neutrophils % (0-2) % Lymphocytes % (Manual) (20-40) % Monocytes % (Manual) (0-10) % Platelet Estimate (NORMAL) Polychromasia Hypochromasia (manual) Anisocytosis (manual) Ovalocytes PT (9.7-12.2) SECONDS INR APTT (21-34) SECONDS pO2 48 21 L (30-55) mm/Hg VBG pH 7.47 H 7.41 (7.32-7.43) VBG pCO2 37 L 52 (40-60) mmHg VBG HCO3 27.1 28.6 mmol/L VBG Total CO2 28.0 34.6 H (22-28) mmol/L VBG O2 Sat (Calc) 85.6 H 34.9 L (40-65) % VBG Base Excess 3.2 H 6.9 H (0.0-2.0) mmol/L VBG Potassium 2.8 L 3.6 (3.6-5.2) mmol/L Glucose 75 81 (75-110) mg/dl Lactate 1.8 3.9 H (0.7-2.1) mmol/L Sodium 138.0 136.0 (132-148) mmol/L Potassium (3.6-5.2) mmol/L Chloride 103.0 92.0 L (98-107) mmol/L Carbon Dioxide (22-30) mmol/L Anion Gap (10-20) BUN (9-20) mg/dL Creatinine (0.8-1.5) mg/dL Est GFR ( Amer) Est GFR (Non-Af Amer) POC Glucose (mg/dL) (65-110) mg/dL Random Glucose (75-110) mg/dL Calcium (8.6-10.4) mg/dl Total Bilirubin (0.2-1.3) mg/dL AST (17-59) U/L ALT (21-72) U/L Alkaline Phosphatase (38-126) U/L Total Creatine Kinase (55-170) U/L Troponin I (0.00-0.120) ng/mL NT-Pro-B Natriuret Pep (0-900) pg/mL Total Protein (6.3-8.3) g/dL Albumin (3.5-5.0) g/dL Globulin (2.2-3.9) gm/dL Albumin/Globulin Ratio (1.0-2.1) Free T4 (0.78-2.19) ng/dL TSH 3rd Generation (0.46-4.68) mIU/L Venous Blood Potassium 2.8 L 3.6 (3.6-5.2) mmol/L Urine Color Straw (YELLOW) Urine Clarity Clear (Clear) Urine pH 7.0 (5.0-8.0) Ur Specific [place] 1.005 (1.003-1.030) Urine Protein 1+ H (NEGATIVE) mg/dL Urine Glucose (UA) Normal (Normal) mg/dL Urine Ketones Negative (NEGATIVE) mg/dL Urine Blood Negative (NEGATIVE) Urine Nitrate Negative (NEGATIVE) Urine Bilirubin Negative (NEGATIVE) Urine Urobilinogen Normal (0.2-1.0) mg/dL Ur Leukocyte Esterase Neg (Negative) Vicente/uL Urine RBC (Auto) < 1 (0-3) /hpf B-Hydroxybutyrate (0.02-0.27) mM 12/27/17 12/27/17 12/27/17 Range/Units 21:43 21:37 21:37 WBC 23.0 H D (4.8-10.8) K/uL RBC 3.80 L (4.40-5.90) Mil/uL Hgb 10.4 L (12.0-18.0) g/dL Hct 32.3 L (35.0-51.0) % MCV 85.1 D (80.0-94.0) fL MCH 27.5 (27.0-31.0) pg MCHC 32.3 L (33.0-37.0) g/dL RDW 17.2 H (11.5-14.5) % Plt Count 261 (130-400) K/uL MPV 7.9 (7.2-11.7) fL Neut % (Auto) 95.3 H (50.0-75.0) % Lymph % (Auto) 2.7 L (20.0-40.0) % [place] % (Auto) 1.6 (0.0-10.0) % Eos % (Auto) 0.2 (0.0-4.0) % Baso % (Auto) 0.2 (0.0-2.0) % Neut # (Auto) 21.9 H (1.8-7.0) K/uL Lymph # (Auto) 0.6 L (1.0-4.3) K/uL [place] # (Auto) 0.4 (0.0-0.8) K/uL Eos # (Auto) 0.0 (0.0-0.7) K/uL Baso # (Auto) 0.1 (0.0-0.2) K/uL Neutrophils % (Manual) 80 H (50-75) % Band Neutrophils % 17 H* (0-2) % Lymphocytes % (Manual) 2 L (20-40) % Monocytes % (Manual) 1 (0-10) % Platelet Estimate Normal (NORMAL) Polychromasia Slight Hypochromasia (manual) Slight Anisocytosis (manual) Slight Ovalocytes Slight PT 13.0 H (9.7-12.2) SECONDS INR 1.2 APTT 30 (21-34) SECONDS pO2 (30-55) mm/Hg VBG pH (7.32-7.43) VBG pCO2 (40-60) mmHg VBG HCO3 mmol/L VBG Total CO2 (22-28) mmol/L VBG O2 Sat (Calc) (40-65) % VBG Base Excess (0.0-2.0) mmol/L VBG Potassium (3.6-5.2) mmol/L Glucose (75-110) mg/dl Lactate (0.7-2.1) mmol/L Sodium (132-148) mmol/L Potassium (3.6-5.2) mmol/L Chloride (98-107) mmol/L Carbon Dioxide (22-30) mmol/L Anion Gap (10-20) BUN (9-20) mg/dL Creatinine (0.8-1.5) mg/dL Est GFR ( Amer) Est GFR (Non-Af Amer) POC Glucose (mg/dL) (65-110) mg/dL Random Glucose (75-110) mg/dL Calcium (8.6-10.4) mg/dl Total Bilirubin (0.2-1.3) mg/dL AST (17-59) U/L ALT (21-72) U/L Alkaline Phosphatase (38-126) U/L Total Creatine Kinase (55-170) U/L Troponin I (0.00-0.120) ng/mL NT-Pro-B Natriuret Pep (0-900) pg/mL Total Protein (6.3-8.3) g/dL Albumin (3.5-5.0) g/dL Globulin (2.2-3.9) gm/dL Albumin/Globulin Ratio (1.0-2.1) Free T4 1.24 (0.78-2.19) ng/dL TSH 3rd Generation 20.40 H (0.46-4.68) mIU/L Venous Blood Potassium (3.6-5.2) mmol/L Urine Color (YELLOW) Urine Clarity (Clear) Urine pH (5.0-8.0) Ur Specific [place] (1.003-1.030) Urine Protein (NEGATIVE) mg/dL Urine Glucose (UA) (Normal) mg/dL Urine Ketones (NEGATIVE) mg/dL Urine Blood (NEGATIVE) Urine Nitrate (NEGATIVE) Urine Bilirubin (NEGATIVE) Urine Urobilinogen (0.2-1.0) mg/dL Ur Leukocyte Esterase (Negative) Vicente/uL Urine RBC (Auto) (0-3) /hpf B-Hydroxybutyrate (0.02-0.27) mM 12/27/17 12/27/17 Range/Units 21:37 21:32 WBC (4.8-10.8) K/uL RBC (4.40-5.90) Mil/uL Hgb (12.0-18.0) g/dL Hct (35.0-51.0) % MCV (80.0-94.0) fL MCH (27.0-31.0) pg MCHC (33.0-37.0) g/dL RDW (11.5-14.5) % Plt Count (130-400) K/uL MPV (7.2-11.7) fL Neut % (Auto) (50.0-75.0) % Lymph % (Auto) (20.0-40.0) % [place] % (Auto) (0.0-10.0) % Eos % (Auto) (0.0-4.0) % Baso % (Auto) (0.0-2.0) % Neut # (Auto) (1.8-7.0) K/uL Lymph # (Auto) (1.0-4.3) K/uL [place] # (Auto) (0.0-0.8) K/uL Eos # (Auto) (0.0-0.7) K/uL Baso # (Auto) (0.0-0.2) K/uL Neutrophils % (Manual) (50-75) % Band Neutrophils % (0-2) % Lymphocytes % (Manual) (20-40) % Monocytes % (Manual) (0-10) % Platelet Estimate (NORMAL) Polychromasia Hypochromasia (manual) Anisocytosis (manual) Ovalocytes PT (9.7-12.2) SECONDS INR APTT (21-34) SECONDS pO2 (30-55) mm/Hg VBG pH (7.32-7.43) VBG pCO2 (40-60) mmHg VBG HCO3 mmol/L VBG Total CO2 (22-28) mmol/L VBG O2 Sat (Calc) (40-65) % VBG Base Excess (0.0-2.0) mmol/L VBG Potassium (3.6-5.2) mmol/L Glucose (75-110) mg/dl Lactate (0.7-2.1) mmol/L Sodium 134 (132-148) mmol/L Potassium 3.7 (3.6-5.2) mmol/L Chloride 89 L (98-107) mmol/L Carbon Dioxide 30 (22-30) mmol/L Anion Gap 19 (10-20) BUN 44 H (9-20) mg/dL Creatinine 1.7 H (0.8-1.5) mg/dL Est GFR ( Amer) 48 Est GFR (Non-Af Amer) 40 POC Glucose (mg/dL) 98 (65-110) mg/dL Random Glucose 82 (75-110) mg/dL Calcium 7.6 L (8.6-10.4) mg/dl Total Bilirubin 0.7 (0.2-1.3) mg/dL AST 45 (17-59) U/L ALT 71 (21-72) U/L Alkaline Phosphatase 110 (38-126) U/L Total Creatine Kinase (55-170) U/L Troponin I 0.1540 H* (0.00-0.120) ng/mL NT-Pro-B Natriuret Pep 7190 H (0-900) pg/mL Total Protein 7.2 (6.3-8.3) g/dL Albumin 4.1 (3.5-5.0) g/dL Globulin 3.1 (2.2-3.9) gm/dL Albumin/Globulin Ratio 1.3 (1.0-2.1) Free T4 (0.78-2.19) ng/dL TSH 3rd Generation (0.46-4.68) mIU/L Venous Blood Potassium (3.6-5.2) mmol/L Urine Color (YELLOW) Urine Clarity (Clear) Urine pH (5.0-8.0) Ur Specific [place] (1.003-1.030) Urine Protein (NEGATIVE) mg/dL Urine Glucose (UA) (Normal) mg/dL Urine Ketones (NEGATIVE) mg/dL Urine Blood (NEGATIVE) Urine Nitrate (NEGATIVE) Urine Bilirubin (NEGATIVE) Urine Urobilinogen (0.2-1.0) mg/dL Ur Leukocyte Esterase (Negative) Vicente/uL Urine RBC (Auto) (0-3) /hpf B-Hydroxybutyrate 0.10 (0.02-0.27) mM Laboratory Results - last 24 hr 12/27/17 12/27/17 12/27/17 21:32 21:37 21:37 WBC 23.0 H D RBC 3.80 L Hgb 10.4 L Hct 32.3 L MCV 85.1 D MCH 27.5 MCHC 32.3 L RDW 17.2 H Plt Count 261 MPV 7.9 Neut % (Auto) 95.3 H Lymph % (Auto) 2.7 L [place] % (Auto) 1.6 Eos % (Auto) 0.2 Baso % (Auto) 0.2 Neut # (Auto) 21.9 H Lymph # (Auto) 0.6 L [place] # (Auto) 0.4 Eos # (Auto) 0.0 Baso # (Auto) 0.1 Neutrophils % (Manual) 80 H Band Neutrophils % 17 H* Lymphocytes % (Manual) 2 L Monocytes % (Manual) 1 Platelet Estimate Normal Polychromasia Slight Hypochromasia (manual) Slight Anisocytosis (manual) Slight Ovalocytes Slight PT INR APTT pO2 VBG pH VBG pCO2 VBG HCO3 VBG Total CO2 VBG O2 Sat (Calc) VBG Base Excess VBG Potassium Glucose Lactate Sodium 134 Potassium 3.7 Chloride 89 L Carbon Dioxide 30 Anion Gap 19 BUN 44 H Creatinine 1.7 H Est GFR ( Amer) 48 Est GFR (Non-Af Amer) 40 POC Glucose (mg/dL) 98 Random Glucose 82 Calcium 7.6 L Total Bilirubin 0.7 AST 45 ALT 71 Alkaline Phosphatase 110 Total Creatine Kinase Troponin I 0.1540 H* NT-Pro-B Natriuret Pep 7190 H Total Protein 7.2 Albumin 4.1 Globulin 3.1 Albumin/Globulin Ratio 1.3 Free T4 TSH 3rd Generation Venous Blood Potassium Urine Color Urine Clarity Urine pH Ur Specific [place] Urine Protein Urine Glucose (UA) Urine Ketones Urine Blood Urine Nitrate Urine Bilirubin Urine Urobilinogen Ur Leukocyte Esterase Urine RBC (Auto) B-Hydroxybutyrate 0.10 12/27/17 12/27/17 12/27/17 21:37 21:43 21:45 WBC RBC Hgb Hct MCV MCH MCHC RDW Plt Count MPV Neut % (Auto) Lymph % (Auto) [place] % (Auto) Eos % (Auto) Baso % (Auto) Neut # (Auto) Lymph # (Auto) [place] # (Auto) Eos # (Auto) Baso # (Auto) Neutrophils % (Manual) Band Neutrophils % Lymphocytes % (Manual) Monocytes % (Manual) Platelet Estimate Polychromasia Hypochromasia (manual) Anisocytosis (manual) Ovalocytes PT 13.0 H INR 1.2 APTT 30 pO2 21 L VBG pH 7.41 VBG pCO2 52 VBG HCO3 28.6 VBG Total CO2 34.6 H VBG O2 Sat (Calc) 34.9 L VBG Base Excess 6.9 H VBG Potassium 3.6 Glucose 81 Lactate 3.9 H Sodium 136.0 Potassium Chloride 92.0 L Carbon Dioxide Anion Gap BUN Creatinine Est GFR ( Amer) Est GFR (Non-Af Amer) POC Glucose (mg/dL) Random Glucose Calcium Total Bilirubin AST ALT Alkaline Phosphatase Total Creatine Kinase Troponin I NT-Pro-B Natriuret Pep Total Protein Albumin Globulin Albumin/Globulin Ratio Free T4 1.24 TSH 3rd Generation 20.40 H Venous Blood Potassium 3.6 Urine Color Urine Clarity Urine pH Ur Specific [place] Urine Protein Urine Glucose (UA) Urine Ketones Urine Blood Urine Nitrate Urine Bilirubin Urine Urobilinogen Ur Leukocyte Esterase Urine RBC (Auto) B-Hydroxybutyrate 12/27/17 12/28/17 12/28/17 21:53 00:25 05:56 WBC 24.6 H RBC 3.06 L Hgb 8.5 L Hct 26.1 L MCV 85.4 MCH 27.7 MCHC 32.5 L RDW 17.0 H Plt Count 200 MPV 8.5 Neut % (Auto) 93.6 H Lymph % (Auto) 2.2 L [place] % (Auto) 3.5 Eos % (Auto) 0.4 Baso % (Auto) 0.3 Neut # (Auto) 23.0 H Lymph # (Auto) 0.5 L [place] # (Auto) 0.9 H Eos # (Auto) 0.1 Baso # (Auto) 0.1 Neutrophils % (Manual) Band Neutrophils % Lymphocytes % (Manual) Monocytes % (Manual) Platelet Estimate Polychromasia Hypochromasia (manual) Anisocytosis (manual) Ovalocytes PT INR APTT pO2 48 VBG pH 7.47 H VBG pCO2 37 L VBG HCO3 27.1 VBG Total CO2 28.0 VBG O2 Sat (Calc) 85.6 H VBG Base Excess 3.2 H VBG Potassium 2.8 L Glucose 75 Lactate 1.8 Sodium 138.0 Potassium Chloride 103.0 Carbon Dioxide Anion Gap BUN Creatinine Est GFR ( Amer) Est GFR (Non-Af Amer) POC Glucose (mg/dL) Random Glucose Calcium Total Bilirubin AST ALT Alkaline Phosphatase Total Creatine Kinase Troponin I NT-Pro-B Natriuret Pep Total Protein Albumin Globulin Albumin/Globulin Ratio Free T4 TSH 3rd Generation Venous Blood Potassium 2.8 L Urine Color Straw Urine Clarity Clear Urine pH 7.0 Ur Specific [place] 1.005 Urine Protein 1+ H Urine Glucose (UA) Normal Urine Ketones Negative Urine Blood Negative Urine Nitrate Negative Urine Bilirubin Negative Urine Urobilinogen Normal Ur Leukocyte Esterase Neg Urine RBC (Auto) < 1 B-Hydroxybutyrate 12/28/17 12/28/17 05:56 07:12 WBC RBC Hgb Hct MCV MCH MCHC RDW Plt Count MPV Neut % (Auto) Lymph % (Auto) [place] % (Auto) Eos % (Auto) Baso % (Auto) Neut # (Auto) Lymph # (Auto) [place] # (Auto) Eos # (Auto) Baso # (Auto) Neutrophils % (Manual) Band Neutrophils % Lymphocytes % (Manual) Monocytes % (Manual) Platelet Estimate Polychromasia Hypochromasia (manual) Anisocytosis (manual) Ovalocytes PT INR APTT pO2 VBG pH VBG pCO2 VBG HCO3 VBG Total CO2 VBG O2 Sat (Calc) VBG Base Excess VBG Potassium Glucose Lactate Sodium 137 Potassium 3.6 Chloride 100 Carbon Dioxide 27 Anion Gap 13 BUN 42 H Creatinine 1.7 H Est GFR ( Amer) 48 Est GFR (Non-Af Amer) 40 POC Glucose (mg/dL) 99 Random Glucose 75 Calcium 6.2 L Total Bilirubin 0.7 AST 59 D ALT 69 Alkaline Phosphatase 127 H Total Creatine Kinase < 20 L Troponin I 0.2990 H* NT-Pro-B Natriuret Pep Total Protein 5.3 L Albumin 2.8 L D Globulin 2.5 Albumin/Globulin Ratio 1.1 Free T4 TSH 3rd Generation Venous Blood Potassium Urine Color Urine Clarity Urine pH Ur Specific [place] Urine Protein Urine Glucose (UA) Urine Ketones Urine Blood Urine Nitrate Urine Bilirubin Urine Urobilinogen Ur Leukocyte Esterase Urine RBC (Auto) B-Hydroxybutyrate Fingerstick Blood Sugar Results: 98 Critical Care Progress Note - Nutrition Nutrition: Nutrition Category Date Time Status Heart Healthy Diet [DIET] Diets 12/27/17 Breakfast Active Assessment/Plan - Assessment and Plan (Free Text) Assessment: This is a 72 year old male with PMHx of HTN, Atrial Fibrillation (on Eliquis), HTN, T2DM, AICD, COPD, Hypothyroidism, renal transplant 2004, EGD 2014 - erosive gastritis, Colonoscopy 2014 - resection of polyp s/p resection of carcinoma of right colon, hx GI bleed 2014, Endocarditis recently treated in [facility], recent left knee tap (unclear what exactly was performed), admitted to the ICU for sepsis in an immunocompromised patient, atrial fibrillation with RVR , and NSTEMI. Plan: Cardio: A: Atrial Fibrillation with RVR on admission - Patient takes Eliquis 5mg PO BID - Will hold 2/2 anemia (hx recent GI bleed), will continue to monitor and resume when appropriate - Restarted home Cardizem 240mg daily A: Hx of Suspected Endocarditis; NO endocarditis - Last ECHO 2014: [id number]%, no obvious vegetation, mod pulm HTN - Spoke with Dr. Bradshaw- FERNANDO was done in [facility] - negative for Endocarditis A: NSTEMI - Troponins 0.1540, 0.2990, 0.2110 A: Hx HF with pEF -Diastolic Dysfunction with AICD - Seen on previous ECHO 2014 - Pending new ECHO A: HTN Pulm: A: COPD - Duonebs Q6H, Advair Endo: A: Hypothyroidism - Elevated TSH - Started synthroid 150 - Will need to follow up as outpatient A: T2DM - HgA1C 6.7 - Accuchecks, ISS low GI: A: Hx GI Bleed - Recent admission to [facility] - Hold ASA - Continue to monitor A: Hx Erosive Gastritis - EGD 2014 - erosive gastritis A: Hx Right Colon Ca s/p resection 2014 - Colonoscopy 2014 - resection of polyp s/p resection of carcinoma of right colon Renal: A: YVAN - Baseline 1.2 11/2017 - Currently 1.7 - Continue IVF A: Renal Transplant 2004 -- Dr. Morrissey consulted - Tacrolimus 3mg PO BID, Prednisone 20mg PO daily ID: A: Sepsis - Left knee? s/p tap gout? Septic arthritis - Procal 4.79, lactate 3.9 --> 1.8 - F/u roca cultures - Started Vanco, Zosyn 12/27 Heme/Onc: A: Anemia - Baseline 9 MSK: A: Gout - Resumed home medications: Colchicine 0.6mg daily Prophylaxis: - Protonix - SCDs, Heparin Q12 DW Nuvia Head DO, PGY-1 <Sarthak Booth S - Last Filed: 12/28/17 17:43> CCU Objective - Vital Signs / Intake & Output Vital Signs (Last 4 hours): Vital Signs Temp Pulse Resp BP Pulse Ox 12/28/17 16:20 107 H 18 100 12/28/17 16:10 137 H 16 100 12/28/17 16:00 97.2 F L 99 H 13 98 12/28/17 15:50 101 H 17 97 12/28/17 15:44 94 H 16 101/58 L 99 12/28/17 15:40 118 H 17 98 12/28/17 15:30 106 H 21 98 12/28/17 15:20 98 H 14 100 12/28/17 15:10 98 H 14 98 12/28/17 15:00 106 H 15 99 12/28/17 14:50 104 H 14 100 12/28/17 14:44 109 H 16 106/56 L 98 12/28/17 14:40 121 H 19 91 L 12/28/17 14:30 119 H 14 100 12/28/17 14:20 118 H 14 98 12/28/17 14:10 101 H 14 12/28/17 14:00 107 H 14 100 12/28/17 13:50 111 H 12 100 12/28/17 13:44 125 H 13 123/64 90 L Intake and Output (Last 8hrs): Intake & Output 12/28/17 12/28/17 12/28/17 06:59 14:59 22:59 Intake Total 2400 2210 300 Output Total 1750 1000 200 Balance 650 1210 100 Weight 113 lb 11.2 oz 113 lb 11.2 oz Intake: IV 1250 Intake, IV Amount 1150 810 200 Right Forearm 1150 800 200 Right Hand 10 Oral 1400 100 Output: Urine 1750 1000 200 Urethral (Ramires) 500 Urine, Voided 550 1000 200 Other: Voiding Method Indwelling Catheter # Bowel Movements 0 0 - Medications Active Medications: Active Medications Generic Name Dose Route Start Last Admin Trade Name Freq PRN Reason Stop Dose Admin Acetaminophen 325 mg 12/27/17 23:38 Tylenol 325mg Tab PO Q6 PRN Fever >100.4 F Albuterol/Ipratropium 3 ml 12/28/17 16:00 Duoneb 3 Mg/0.5 Mg (3 Ml) Ud INH RQ6 FAHEEM Colchicine 0.6 mg 12/28/17 10:00 12/28/17 10:35 Colocrys PO 0.6 mg DAILY FAHEEM Administration Diltiazem HCl 240 mg 12/29/17 10:00 Cardizem Cd PO DAILY FAHEEM Heparin Sodium (Porcine) 5,000 units 12/28/17 10:00 12/28/17 10:08 Heparin SC 5,000 units Q12 FAHEEM Administration Piperacillin Sod/Tazobactam Sod 2.25 gm in 50 mls @ 100 mls/hr 12/27/17 23:45 12/28/17 17:30 Zosyn 2.25 Gm Iv Premix IVPB 100 mls/hr Q6H FAHEEM Administration Protocol Sodium Chloride 1,000 mls @ 100 mls/hr 12/27/17 23:45 12/28/17 10:07 Sodium Chloride 0.9% IV 100 mls/hr .Q10H FAHEEM Administration Vancomycin/Sodium Chloride 1 gm in 200 mls @ 133 mls/hr 12/28/17 23:30 Vancomycin 1 Gm/Ns 200 Ml IVPB 01/02/18 23:31 Q24H [facility] Protocol Insulin Human Regular 0 unit 12/28/17 16:30 12/28/17 17:15 Novolin R SC Not Given ACHS [facility] Protocol Levothyroxine Sodium 150 mcg 12/28/17 06:30 12/28/17 06:21 Synthroid PO 150 mcg DAILY@0630 FAHEEM Administration Montelukast Sodium 10 mg 12/28/17 10:00 12/28/17 10:07 Singulair PO 10 mg DAILY FAHEEM Administration Pantoprazole Sodium 40 mg 12/28/17 10:00 12/28/17 10:07 Protonix Ec Tab PO 40 mg DAILY FAHEEM Administration Prednisone 20 mg 12/28/17 13:30 12/28/17 15:32 Prednisone Tab PO 20 mg DAILY FAHEEM Administration Fluticasone/Salmeterol 1 puff 12/28/17 10:00 12/28/17 10:05 Advair Diskus 250/50 INH 1 puff RQ12 FAHEEM Administration Tacrolimus 3 mg 12/28/17 10:59 12/28/17 17:30 Prograf Cap PO 3 mg BID FAHEEM Administration - Patient Studies Lab Studies: Microbiology Studies 12/27/17 22:04 Gram Stain - Final Blood 12/27/17 22:04 Gram Stain - Final Blood Lab Studies 12/28/17 12/28/17 12/28/17 Range/Units 12:47 11:32 08:48 WBC (4.8-10.8) K/uL RBC (4.40-5.90) Mil/uL Hgb (12.0-18.0) g/dL Hct (35.0-51.0) % MCV (80.0-94.0) fL MCH (27.0-31.0) pg MCHC (33.0-37.0) g/dL RDW (11.5-14.5) % Plt Count (130-400) K/uL MPV (7.2-11.7) fL Neut % (Auto) (50.0-75.0) % Lymph % (Auto) (20.0-40.0) % [place] % (Auto) (0.0-10.0) % Eos % (Auto) (0.0-4.0) % Baso % (Auto) (0.0-2.0) % Neut # (Auto) (1.8-7.0) K/uL Lymph # (Auto) (1.0-4.3) K/uL [place] # (Auto) (0.0-0.8) K/uL Eos # (Auto) (0.0-0.7) K/uL Baso # (Auto) (0.0-0.2) K/uL Neutrophils % (Manual) (50-75) % Band Neutrophils % (0-2) % Lymphocytes % (Manual) (20-40) % Monocytes % (Manual) (0-10) % Platelet Estimate (NORMAL) Large Platelets Giant Platelets Polychromasia Hypochromasia (manual) Poikilocytosis (manual Anisocytosis (manual) Ovalocytes Hazel Green Cells PT (9.7-12.2) SECONDS INR APTT (21-34) SECONDS pO2 (30-55) mm/Hg VBG pH (7.32-7.43) VBG pCO2 (40-60) mmHg VBG HCO3 mmol/L VBG Total CO2 (22-28) mmol/L VBG O2 Sat (Calc) (40-65) % VBG Base Excess (0.0-2.0) mmol/L VBG Potassium (3.6-5.2) mmol/L Glucose (75-110) mg/dl Lactate (0.7-2.1) mmol/L Sodium (132-148) mmol/L Potassium (3.6-5.2) mmol/L Chloride (98-107) mmol/L Carbon Dioxide (22-30) mmol/L Anion Gap (10-20) BUN (9-20) mg/dL Creatinine (0.8-1.5) mg/dL Est GFR ( Amer) Est GFR (Non-Af Amer) POC Glucose (mg/dL) 148 H (65-110) mg/dL Random Glucose (75-110) mg/dL Hemoglobin A1c (4.2-6.5) % Uric Acid (3.5-8.5) mg/dL Calcium (8.6-10.4) mg/dl Total Bilirubin (0.2-1.3) mg/dL AST (17-59) U/L ALT (21-72) U/L Alkaline Phosphatase (38-126) U/L Total Creatine Kinase (55-170) U/L CK-MB (Mass) (0.0-3.38) ng/mL Troponin I (0.00-0.120) ng/mL NT-Pro-B Natriuret Pep (0-900) pg/mL Total Protein (6.3-8.3) g/dL Albumin (3.5-5.0) g/dL Globulin (2.2-3.9) gm/dL Albumin/Globulin Ratio (1.0-2.1) Procalcitonin (0.19-0.49) NG/ML Free T4 1.80 (0.78-2.19) ng/dL TSH 3rd Generation (0.46-4.68) mIU/L Venous Blood Potassium (3.6-5.2) mmol/L Urine Color (YELLOW) Urine Clarity (Clear) Urine pH (5.0-8.0) Ur Specific [place] (1.003-1.030) Urine Protein (NEGATIVE) mg/dL Urine Glucose (UA) (Normal) mg/dL Urine Ketones (NEGATIVE) mg/dL Urine Blood (NEGATIVE) Urine Nitrate (NEGATIVE) Urine Bilirubin (NEGATIVE) Urine Urobilinogen (0.2-1.0) mg/dL Ur Leukocyte Esterase (Negative) [place]/uL Urine RBC (Auto) (0-3) /hpf Stool Occult Blood Positive H (NEGATIVE) B-Hydroxybutyrate (0.02-0.27) mM 12/28/17 12/28/17 12/28/17 Range/Units 08:48 08:48 07:12 WBC (4.8-10.8) K/uL RBC (4.40-5.90) Mil/uL Hgb (12.0-18.0) g/dL Hct (35.0-51.0) % MCV (80.0-94.0) fL MCH (27.0-31.0) pg MCHC (33.0-37.0) g/dL RDW (11.5-14.5) % Plt Count (130-400) K/uL MPV (7.2-11.7) fL Neut % (Auto) (50.0-75.0) % Lymph % (Auto) (20.0-40.0) % [place] % (Auto) (0.0-10.0) % Eos % (Auto) (0.0-4.0) % Baso % (Auto) (0.0-2.0) % Neut # (Auto) (1.8-7.0) K/uL Lymph # (Auto) (1.0-4.3) K/uL [place] # (Auto) (0.0-0.8) K/uL Eos # (Auto) (0.0-0.7) K/uL Baso # (Auto) (0.0-0.2) K/uL Neutrophils % (Manual) (50-75) % Band Neutrophils % (0-2) % Lymphocytes % (Manual) (20-40) % Monocytes % (Manual) (0-10) % Platelet Estimate (NORMAL) Large Platelets Giant Platelets Polychromasia Hypochromasia (manual) Poikilocytosis (manual Anisocytosis (manual) Ovalocytes [place] Green Cells PT (9.7-12.2) SECONDS INR APTT (21-34) SECONDS pO2 (30-55) mm/Hg VBG pH (7.32-7.43) VBG pCO2 (40-60) mmHg VBG HCO3 mmol/L VBG Total CO2 (22-28) mmol/L VBG O2 Sat (Calc) (40-65) % VBG Base Excess (0.0-2.0) mmol/L VBG Potassium (3.6-5.2) mmol/L Glucose (75-110) mg/dl Lactate (0.7-2.1) mmol/L Sodium (132-148) mmol/L Potassium (3.6-5.2) mmol/L Chloride (98-107) mmol/L Carbon Dioxide (22-30) mmol/L Anion Gap (10-20) BUN (9-20) mg/dL Creatinine (0.8-1.5) mg/dL Est GFR ( Amer) Est GFR (Non-Af Amer) POC Glucose (mg/dL) 99 (65-110) mg/dL Random Glucose (75-110) mg/dL Hemoglobin A1c 6.7 H (4.2-6.5) % Uric Acid 4.0 (3.5-8.5) mg/dL Calcium (8.6-10.4) mg/dl Total Bilirubin (0.2-1.3) mg/dL AST (17-59) U/L ALT (21-72) U/L Alkaline Phosphatase (38-126) U/L Total Creatine Kinase (55-170) U/L CK-MB (Mass) 0.90 (0.0-3.38) ng/mL Troponin I 0.2110 H* (0.00-0.120) ng/mL NT-Pro-B Natriuret Pep (0-900) pg/mL Total Protein (6.3-8.3) g/dL Albumin (3.5-5.0) g/dL Globulin (2.2-3.9) gm/dL Albumin/Globulin Ratio (1.0-2.1) Procalcitonin (0.19-0.49) NG/ML Free T4 (0.78-2.19) ng/dL TSH 3rd Generation 13.10 H (0.46-4.68) mIU/L Venous Blood Potassium (3.6-5.2) mmol/L Urine Color (YELLOW) Urine Clarity (Clear) Urine pH (5.0-8.0) Ur Specific [place] (1.003-1.030) Urine Protein (NEGATIVE) mg/dL Urine Glucose (UA) (Normal) mg/dL Urine Ketones (NEGATIVE) mg/dL Urine Blood (NEGATIVE) Urine Nitrate (NEGATIVE) Urine Bilirubin (NEGATIVE) Urine Urobilinogen (0.2-1.0) mg/dL Ur Leukocyte Esterase (Negative) [place]/uL Urine RBC (Auto) (0-3) /hpf Stool Occult Blood (NEGATIVE) B-Hydroxybutyrate (0.02-0.27) mM 12/28/17 12/28/17 12/28/17 Range/Units 05:56 05:56 05:56 WBC 24.6 H (4.8-10.8) K/uL RBC 3.06 L (4.40-5.90) Mil/uL Hgb 8.5 L (12.0-18.0) g/dL Hct 26.1 L (35.0-51.0) % MCV 85.4 (80.0-94.0) fL MCH 27.7 (27.0-31.0) pg MCHC 32.5 L (33.0-37.0) g/dL RDW 17.0 H (11.5-14.5) % Plt Count 200 (130-400) K/uL MPV 8.5 (7.2-11.7) fL Neut % (Auto) 93.6 H (50.0-75.0) % Lymph % (Auto) 2.2 L (20.0-40.0) % [place] % (Auto) 3.5 (0.0-10.0) % Eos % (Auto) 0.4 (0.0-4.0) % Baso % (Auto) 0.3 (0.0-2.0) % Neut # (Auto) 23.0 H (1.8-7.0) K/uL Lymph # (Auto) 0.5 L (1.0-4.3) K/uL [place] # (Auto) 0.9 H (0.0-0.8) K/uL Eos # (Auto) 0.1 (0.0-0.7) K/uL Baso # (Auto) 0.1 (0.0-0.2) K/uL Neutrophils % (Manual) 77 H (50-75) % Band Neutrophils % 18 H* (0-2) % Lymphocytes % (Manual) 1 L (20-40) % Monocytes % (Manual) 4 (0-10) % Platelet Estimate Normal (NORMAL) Large Platelets Present Giant Platelets Present Polychromasia Hypochromasia (manual) Moderate Poikilocytosis (manual Slight Anisocytosis (manual) Slight Ovalocytes David Cells Slight PT (9.7-12.2) SECONDS INR APTT (21-34) SECONDS pO2 (30-55) mm/Hg VBG pH (7.32-7.43) VBG pCO2 (40-60) mmHg VBG HCO3 mmol/L VBG Total CO2 (22-28) mmol/L VBG O2 Sat (Calc) (40-65) % VBG Base Excess (0.0-2.0) mmol/L VBG Potassium (3.6-5.2) mmol/L Glucose (75-110) mg/dl Lactate (0.7-2.1) mmol/L Sodium 137 (132-148) mmol/L Potassium 3.6 (3.6-5.2) mmol/L Chloride 100 (98-107) mmol/L Carbon Dioxide 27 (22-30) mmol/L Anion Gap 13 (10-20) BUN 42 H (9-20) mg/dL Creatinine 1.7 H (0.8-1.5) mg/dL Est GFR ( Amer) 48 Est GFR (Non-Af Amer) 40 POC Glucose (mg/dL) (65-110) mg/dL Random Glucose 75 (75-110) mg/dL Hemoglobin A1c (4.2-6.5) % Uric Acid (3.5-8.5) mg/dL Calcium 6.2 L (8.6-10.4) mg/dl Total Bilirubin 0.7 (0.2-1.3) mg/dL AST 59 D (17-59) U/L ALT 69 (21-72) U/L Alkaline Phosphatase 127 H (38-126) U/L Total Creatine Kinase < 20 L (55-170) U/L CK-MB (Mass) 0.84 (0.0-3.38) ng/mL Troponin I 0.2990 H* (0.00-0.120) ng/mL NT-Pro-B Natriuret Pep (0-900) pg/mL Total Protein 5.3 L (6.3-8.3) g/dL Albumin 2.8 L D (3.5-5.0) g/dL Globulin 2.5 (2.2-3.9) gm/dL Albumin/Globulin Ratio 1.1 (1.0-2.1) Procalcitonin 4.79 H (0.19-0.49) NG/ML Free T4 (0.78-2.19) ng/dL TSH 3rd Generation (0.46-4.68) mIU/L Venous Blood Potassium (3.6-5.2) mmol/L Urine Color (YELLOW) Urine Clarity (Clear) Urine pH (5.0-8.0) Ur Specific [place] (1.003-1.030) Urine Protein (NEGATIVE) mg/dL Urine Glucose (UA) (Normal) mg/dL Urine Ketones (NEGATIVE) mg/dL Urine Blood (NEGATIVE) Urine Nitrate (NEGATIVE) Urine Bilirubin (NEGATIVE) Urine Urobilinogen (0.2-1.0) mg/dL Ur Leukocyte Esterase (Negative) [place]/uL Urine RBC (Auto) (0-3) /hpf Stool Occult Blood (NEGATIVE) B-Hydroxybutyrate (0.02-0.27) mM 12/28/17 12/27/17 12/27/17 Range/Units 00:25 21:53 21:45 WBC (4.8-10.8) K/uL RBC (4.40-5.90) Mil/uL Hgb (12.0-18.0) g/dL Hct (35.0-51.0) % MCV (80.0-94.0) fL MCH (27.0-31.0) pg MCHC (33.0-37.0) g/dL RDW (11.5-14.5) % Plt Count (130-400) K/uL MPV (7.2-11.7) fL Neut % (Auto) (50.0-75.0) % Lymph % (Auto) (20.0-40.0) % [place] % (Auto) (0.0-10.0) % Eos % (Auto) (0.0-4.0) % Baso % (Auto) (0.0-2.0) % Neut # (Auto) (1.8-7.0) K/uL Lymph # (Auto) (1.0-4.3) K/uL [place] # (Auto) (0.0-0.8) K/uL Eos # (Auto) (0.0-0.7) K/uL Baso # (Auto) (0.0-0.2) K/uL Neutrophils % (Manual) (50-75) % Band Neutrophils % (0-2) % Lymphocytes % (Manual) (20-40) % Monocytes % (Manual) (0-10) % Platelet Estimate (NORMAL) Large Platelets Giant Platelets Polychromasia Hypochromasia (manual) Poikilocytosis (manual Anisocytosis (manual) Ovalocytes David Cells PT (9.7-12.2) SECONDS INR APTT (21-34) SECONDS pO2 48 21 L (30-55) mm/Hg VBG pH 7.47 H 7.41 (7.32-7.43) VBG pCO2 37 L 52 (40-60) mmHg VBG HCO3 27.1 28.6 mmol/L VBG Total CO2 28.0 34.6 H (22-28) mmol/L VBG O2 Sat (Calc) 85.6 H 34.9 L (40-65) % VBG Base Excess 3.2 H 6.9 H (0.0-2.0) mmol/L VBG Potassium 2.8 L 3.6 (3.6-5.2) mmol/L Glucose 75 81 (75-110) mg/dl Lactate 1.8 3.9 H (0.7-2.1) mmol/L Sodium 138.0 136.0 (132-148) mmol/L Potassium (3.6-5.2) mmol/L Chloride 103.0 92.0 L (98-107) mmol/L Carbon Dioxide (22-30) mmol/L Anion Gap (10-20) BUN (9-20) mg/dL Creatinine (0.8-1.5) mg/dL Est GFR ( Amer) Est GFR (Non-Af Amer) POC Glucose (mg/dL) (65-110) mg/dL Random Glucose (75-110) mg/dL Hemoglobin A1c (4.2-6.5) % Uric Acid (3.5-8.5) mg/dL Calcium (8.6-10.4) mg/dl Total Bilirubin (0.2-1.3) mg/dL AST (17-59) U/L ALT (21-72) U/L Alkaline Phosphatase (38-126) U/L Total Creatine Kinase (55-170) U/L CK-MB (Mass) (0.0-3.38) ng/mL Troponin I (0.00-0.120) ng/mL NT-Pro-B Natriuret Pep (0-900) pg/mL Total Protein (6.3-8.3) g/dL Albumin (3.5-5.0) g/dL Globulin (2.2-3.9) gm/dL Albumin/Globulin Ratio (1.0-2.1) Procalcitonin (0.19-0.49) NG/ML Free T4 (0.78-2.19) ng/dL TSH 3rd Generation (0.46-4.68) mIU/L Venous Blood Potassium 2.8 L 3.6 (3.6-5.2) mmol/L Urine Color Straw (YELLOW) Urine Clarity Clear (Clear) Urine pH 7.0 (5.0-8.0) Ur Specific [place] 1.005 (1.003-1.030) Urine Protein 1+ H (NEGATIVE) mg/dL Urine Glucose (UA) Normal (Normal) mg/dL Urine Ketones Negative (NEGATIVE) mg/dL Urine Blood Negative (NEGATIVE) Urine Nitrate Negative (NEGATIVE) Urine Bilirubin Negative (NEGATIVE) Urine Urobilinogen Normal (0.2-1.0) mg/dL Ur Leukocyte Esterase Neg (Negative) [place]/uL Urine RBC (Auto) < 1 (0-3) /hpf Stool Occult Blood (NEGATIVE) B-Hydroxybutyrate (0.02-0.27) mM 12/27/17 12/27/17 12/27/17 Range/Units 21:43 21:37 21:37 WBC 23.0 H D (4.8-10.8) K/uL RBC 3.80 L (4.40-5.90) Mil/uL Hgb 10.4 L (12.0-18.0) g/dL Hct 32.3 L (35.0-51.0) % MCV 85.1 D (80.0-94.0) fL MCH 27.5 (27.0-31.0) pg MCHC 32.3 L (33.0-37.0) g/dL RDW 17.2 H (11.5-14.5) % Plt Count 261 (130-400) K/uL MPV 7.9 (7.2-11.7) fL Neut % (Auto) 95.3 H (50.0-75.0) % Lymph % (Auto) 2.7 L (20.0-40.0) % [place] % (Auto) 1.6 (0.0-10.0) % Eos % (Auto) 0.2 (0.0-4.0) % Baso % (Auto) 0.2 (0.0-2.0) % Neut # (Auto) 21.9 H (1.8-7.0) K/uL Lymph # (Auto) 0.6 L (1.0-4.3) K/uL [place] # (Auto) 0.4 (0.0-0.8) K/uL Eos # (Auto) 0.0 (0.0-0.7) K/uL Baso # (Auto) 0.1 (0.0-0.2) K/uL Neutrophils % (Manual) 80 H (50-75) % Band Neutrophils % 17 H* (0-2) % Lymphocytes % (Manual) 2 L (20-40) % Monocytes % (Manual) 1 (0-10) % Platelet Estimate Normal (NORMAL) Large Platelets Giant Platelets Polychromasia Slight Hypochromasia (manual) Slight Poikilocytosis (manual Anisocytosis (manual) Slight Ovalocytes Slight David Cells PT 13.0 H (9.7-12.2) SECONDS INR 1.2 APTT 30 (21-34) SECONDS pO2 (30-55) mm/Hg VBG pH (7.32-7.43) VBG pCO2 (40-60) mmHg VBG HCO3 mmol/L VBG Total CO2 (22-28) mmol/L VBG O2 Sat (Calc) (40-65) % VBG Base Excess (0.0-2.0) mmol/L VBG Potassium (3.6-5.2) mmol/L Glucose (75-110) mg/dl Lactate (0.7-2.1) mmol/L Sodium (132-148) mmol/L Potassium (3.6-5.2) mmol/L Chloride (98-107) mmol/L Carbon Dioxide (22-30) mmol/L Anion Gap (10-20) BUN (9-20) mg/dL Creatinine (0.8-1.5) mg/dL Est GFR ( Amer) Est GFR (Non-Af Amer) POC Glucose (mg/dL) (65-110) mg/dL Random Glucose (75-110) mg/dL Hemoglobin A1c (4.2-6.5) % Uric Acid (3.5-8.5) mg/dL Calcium (8.6-10.4) mg/dl Total Bilirubin (0.2-1.3) mg/dL AST (17-59) U/L ALT (21-72) U/L Alkaline Phosphatase (38-126) U/L Total Creatine Kinase (55-170) U/L CK-MB (Mass) (0.0-3.38) ng/mL Troponin I (0.00-0.120) ng/mL NT-Pro-B Natriuret Pep (0-900) pg/mL Total Protein (6.3-8.3) g/dL Albumin (3.5-5.0) g/dL Globulin (2.2-3.9) gm/dL Albumin/Globulin Ratio (1.0-2.1) Procalcitonin (0.19-0.49) NG/ML Free T4 1.24 (0.78-2.19) ng/dL TSH 3rd Generation 20.40 H (0.46-4.68) mIU/L Venous Blood Potassium (3.6-5.2) mmol/L Urine Color (YELLOW) Urine Clarity (Clear) Urine pH (5.0-8.0) Ur Specific [place] (1.003-1.030) Urine Protein (NEGATIVE) mg/dL Urine Glucose (UA) (Normal) mg/dL Urine Ketones (NEGATIVE) mg/dL Urine Blood (NEGATIVE) Urine Nitrate (NEGATIVE) Urine Bilirubin (NEGATIVE) Urine Urobilinogen (0.2-1.0) mg/dL Ur Leukocyte Esterase (Negative) [place]/uL Urine RBC (Auto) (0-3) /hpf Stool Occult Blood (NEGATIVE) B-Hydroxybutyrate (0.02-0.27) mM 12/27/17 12/27/17 Range/Units 21:37 21:32 WBC (4.8-10.8) K/uL RBC (4.40-5.90) Mil/uL Hgb (12.0-18.0) g/dL Hct (35.0-51.0) % MCV (80.0-94.0) fL MCH (27.0-31.0) pg MCHC (33.0-37.0) g/dL RDW (11.5-14.5) % Plt Count (130-400) K/uL MPV (7.2-11.7) fL Neut % (Auto) (50.0-75.0) % Lymph % (Auto) (20.0-40.0) % [place] % (Auto) (0.0-10.0) % Eos % (Auto) (0.0-4.0) % Baso % (Auto) (0.0-2.0) % Neut # (Auto) (1.8-7.0) K/uL Lymph # (Auto) (1.0-4.3) K/uL [place] # (Auto) (0.0-0.8) K/uL Eos # (Auto) (0.0-0.7) K/uL Baso # (Auto) (0.0-0.2) K/uL Neutrophils % (Manual) (50-75) % Band Neutrophils % (0-2) % Lymphocytes % (Manual) (20-40) % Monocytes % (Manual) (0-10) % Platelet Estimate (NORMAL) Large Platelets Giant Platelets Polychromasia Hypochromasia (manual) Poikilocytosis (manual Anisocytosis (manual) Ovalocytes David Cells PT (9.7-12.2) SECONDS INR APTT (21-34) SECONDS pO2 (30-55) mm/Hg VBG pH (7.32-7.43) VBG pCO2 (40-60) mmHg VBG HCO3 mmol/L VBG Total CO2 (22-28) mmol/L VBG O2 Sat (Calc) (40-65) % VBG Base Excess (0.0-2.0) mmol/L VBG Potassium (3.6-5.2) mmol/L Glucose (75-110) mg/dl Lactate (0.7-2.1) mmol/L Sodium 134 (132-148) mmol/L Potassium 3.7 (3.6-5.2) mmol/L Chloride 89 L (98-107) mmol/L Carbon Dioxide 30 (22-30) mmol/L Anion Gap 19 (10-20) BUN 44 H (9-20) mg/dL Creatinine 1.7 H (0.8-1.5) mg/dL Est GFR ( Amer) 48 Est GFR (Non-Af Amer) 40 POC Glucose (mg/dL) 98 (65-110) mg/dL Random Glucose 82 (75-110) mg/dL Hemoglobin A1c (4.2-6.5) % Uric Acid (3.5-8.5) mg/dL Calcium 7.6 L (8.6-10.4) mg/dl Total Bilirubin 0.7 (0.2-1.3) mg/dL AST 45 (17-59) U/L ALT 71 (21-72) U/L Alkaline Phosphatase 110 (38-126) U/L Total Creatine Kinase (55-170) U/L CK-MB (Mass) (0.0-3.38) ng/mL Troponin I 0.1540 H* (0.00-0.120) ng/mL NT-Pro-B Natriuret Pep 7190 H (0-900) pg/mL Total Protein 7.2 (6.3-8.3) g/dL Albumin 4.1 (3.5-5.0) g/dL Globulin 3.1 (2.2-3.9) gm/dL Albumin/Globulin Ratio 1.3 (1.0-2.1) Procalcitonin (0.19-0.49) NG/ML Free T4 (0.78-2.19) ng/dL TSH 3rd Generation (0.46-4.68) mIU/L Venous Blood Potassium (3.6-5.2) mmol/L Urine Color (YELLOW) Urine Clarity (Clear) Urine pH (5.0-8.0) Ur Specific [place] (1.003-1.030) Urine Protein (NEGATIVE) mg/dL Urine Glucose (UA) (Normal) mg/dL Urine Ketones (NEGATIVE) mg/dL Urine Blood (NEGATIVE) Urine Nitrate (NEGATIVE) Urine Bilirubin (NEGATIVE) Urine Urobilinogen (0.2-1.0) mg/dL Ur Leukocyte Esterase (Negative) [place]/uL Urine RBC (Auto) (0-3) /hpf Stool Occult Blood (NEGATIVE) B-Hydroxybutyrate 0.10 (0.02-0.27) mM Laboratory Results - last 24 hr 12/27/17 12/27/17 12/27/17 21:32 21:37 21:37 WBC 23.0 H D RBC 3.80 L Hgb 10.4 L Hct 32.3 L MCV 85.1 D MCH 27.5 MCHC 32.3 L RDW 17.2 H Plt Count 261 MPV 7.9 Neut % (Auto) 95.3 H Lymph % (Auto) 2.7 L [place] % (Auto) 1.6 Eos % (Auto) 0.2 Baso % (Auto) 0.2 Neut # (Auto) 21.9 H Lymph # (Auto) 0.6 L [place] # (Auto) 0.4 Eos # (Auto) 0.0 Baso # (Auto) 0.1 Neutrophils % (Manual) 80 H Band Neutrophils % 17 H* Lymphocytes % (Manual) 2 L Monocytes % (Manual) 1 Platelet Estimate Normal Large Platelets Giant Platelets Polychromasia Slight Hypochromasia (manual) Slight Poikilocytosis (manual Anisocytosis (manual) Slight Ovalocytes Slight David Cells PT INR APTT pO2 VBG pH VBG pCO2 VBG HCO3 VBG Total CO2 VBG O2 Sat (Calc) VBG Base Excess VBG Potassium Glucose Lactate Sodium 134 Potassium 3.7 Chloride 89 L Carbon Dioxide 30 Anion Gap 19 BUN 44 H Creatinine 1.7 H Est GFR ( Amer) 48 Est GFR (Non-Af Amer) 40 POC Glucose (mg/dL) 98 Random Glucose 82 Hemoglobin A1c Uric Acid Calcium 7.6 L Total Bilirubin 0.7 AST 45 ALT 71 Alkaline Phosphatase 110 Total Creatine Kinase CK-MB (Mass) Troponin I 0.1540 H* NT-Pro-B Natriuret Pep 7190 H Total Protein 7.2 Albumin 4.1 Globulin 3.1 Albumin/Globulin Ratio 1.3 Procalcitonin Free T4 TSH 3rd Generation Venous Blood Potassium Urine Color Urine Clarity Urine pH Ur Specific [place] Urine Protein Urine Glucose (UA) Urine Ketones Urine Blood Urine Nitrate Urine Bilirubin Urine Urobilinogen Ur Leukocyte Esterase Urine RBC (Auto) Stool Occult Blood B-Hydroxybutyrate 0.10 12/27/17 12/27/17 12/27/17 21:37 21:43 21:45 WBC RBC Hgb Hct MCV MCH MCHC RDW Plt Count MPV Neut % (Auto) Lymph % (Auto) [place] % (Auto) Eos % (Auto) Baso % (Auto) Neut # (Auto) Lymph # (Auto) [place] # (Auto) Eos # (Auto) Baso # (Auto) Neutrophils % (Manual) Band Neutrophils % Lymphocytes % (Manual) Monocytes % (Manual) Platelet Estimate Large Platelets Giant Platelets Polychromasia Hypochromasia (manual) Poikilocytosis (manual Anisocytosis (manual) Ovalocytes [place] Green Cells PT 13.0 H INR 1.2 APTT 30 pO2 21 L VBG pH 7.41 VBG pCO2 52 VBG HCO3 28.6 VBG Total CO2 34.6 H VBG O2 Sat (Calc) 34.9 L VBG Base Excess 6.9 H VBG Potassium 3.6 Glucose 81 Lactate 3.9 H Sodium 136.0 Potassium Chloride 92.0 L Carbon Dioxide Anion Gap BUN Creatinine Est GFR ( Amer) Est GFR (Non-Af Amer) POC Glucose (mg/dL) Random Glucose Hemoglobin A1c Uric Acid Calcium Total Bilirubin AST ALT Alkaline Phosphatase Total Creatine Kinase CK-MB (Mass) Troponin I NT-Pro-B Natriuret Pep Total Protein Albumin Globulin Albumin/Globulin Ratio Procalcitonin Free T4 1.24 TSH 3rd Generation 20.40 H Venous Blood Potassium 3.6 Urine Color Urine Clarity Urine pH Ur Specific [place] Urine Protein Urine Glucose (UA) Urine Ketones Urine Blood Urine Nitrate Urine Bilirubin Urine Urobilinogen Ur Leukocyte Esterase Urine RBC (Auto) Stool Occult Blood B-Hydroxybutyrate 12/27/17 12/28/17 12/28/17 21:53 00:25 05:56 WBC 24.6 H RBC 3.06 L Hgb 8.5 L Hct 26.1 L MCV 85.4 MCH 27.7 MCHC 32.5 L RDW 17.0 H Plt Count 200 MPV 8.5 Neut % (Auto) 93.6 H Lymph % (Auto) 2.2 L [place] % (Auto) 3.5 Eos % (Auto) 0.4 Baso % (Auto) 0.3 Neut # (Auto) 23.0 H Lymph # (Auto) 0.5 L [place] # (Auto) 0.9 H Eos # (Auto) 0.1 Baso # (Auto) 0.1 Neutrophils % (Manual) 77 H Band Neutrophils % 18 H* Lymphocytes % (Manual) 1 L Monocytes % (Manual) 4 Platelet Estimate Normal Large Platelets Present Giant Platelets Present Polychromasia Hypochromasia (manual) Moderate Poikilocytosis (manual Slight Anisocytosis (manual) Slight Ovalocytes David Cells Slight PT INR APTT pO2 48 VBG pH 7.47 H VBG pCO2 37 L VBG HCO3 27.1 VBG Total CO2 28.0 VBG O2 Sat (Calc) 85.6 H VBG Base Excess 3.2 H VBG Potassium 2.8 L Glucose 75 Lactate 1.8 Sodium 138.0 Potassium Chloride 103.0 Carbon Dioxide Anion Gap BUN Creatinine Est GFR ( Amer) Est GFR (Non-Af Amer) POC Glucose (mg/dL) Random Glucose Hemoglobin A1c Uric Acid Calcium Total Bilirubin AST ALT Alkaline Phosphatase Total Creatine Kinase CK-MB (Mass) Troponin I NT-Pro-B Natriuret Pep Total Protein Albumin Globulin Albumin/Globulin Ratio Procalcitonin Free T4 TSH 3rd Generation Venous Blood Potassium 2.8 L Urine Color Straw Urine Clarity Clear Urine pH 7.0 Ur Specific [place] 1.005 Urine Protein 1+ H Urine Glucose (UA) Normal Urine Ketones Negative Urine Blood Negative Urine Nitrate Negative Urine Bilirubin Negative Urine Urobilinogen Normal Ur Leukocyte Esterase Neg Urine RBC (Auto) < 1 Stool Occult Blood B-Hydroxybutyrate 12/28/17 12/28/17 12/28/17 05:56 05:56 07:12 WBC RBC Hgb Hct MCV MCH MCHC RDW Plt Count MPV Neut % (Auto) Lymph % (Auto) [place] % (Auto) Eos % (Auto) Baso % (Auto) Neut # (Auto) Lymph # (Auto) [place] # (Auto) Eos # (Auto) Baso # (Auto) Neutrophils % (Manual) Band Neutrophils % Lymphocytes % (Manual) Monocytes % (Manual) Platelet Estimate Large Platelets Giant Platelets Polychromasia Hypochromasia (manual) Poikilocytosis (manual Anisocytosis (manual) Ovalocytes David Cells PT INR APTT pO2 VBG pH VBG pCO2 VBG HCO3 VBG Total CO2 VBG O2 Sat (Calc) VBG Base Excess VBG Potassium Glucose Lactate Sodium 137 Potassium 3.6 Chloride 100 Carbon Dioxide 27 Anion Gap 13 BUN 42 H Creatinine 1.7 H Est GFR ( Amer) 48 Est GFR (Non-Af Amer) 40 POC Glucose (mg/dL) 99 Random Glucose 75 Hemoglobin A1c Uric Acid Calcium 6.2 L Total Bilirubin 0.7 AST 59 D ALT 69 Alkaline Phosphatase 127 H Total Creatine Kinase < 20 L CK-MB (Mass) 0.84 Troponin I 0.2990 H* NT-Pro-B Natriuret Pep Total Protein 5.3 L Albumin 2.8 L D Globulin 2.5 Albumin/Globulin Ratio 1.1 Procalcitonin 4.79 H Free T4 TSH 3rd Generation Venous Blood Potassium Urine Color Urine Clarity Urine pH Ur Specific [place] Urine Protein Urine Glucose (UA) Urine Ketones Urine Blood Urine Nitrate Urine Bilirubin Urine Urobilinogen Ur Leukocyte Esterase Urine RBC (Auto) Stool Occult Blood B-Hydroxybutyrate 12/28/17 12/28/17 12/28/17 08:48 08:48 08:48 WBC RBC Hgb Hct MCV MCH MCHC RDW Plt Count MPV Neut % (Auto) Lymph % (Auto) [place] % (Auto) Eos % (Auto) Baso % (Auto) Neut # (Auto) Lymph # (Auto) [place] # (Auto) Eos # (Auto) Baso # (Auto) Neutrophils % (Manual) Band Neutrophils % Lymphocytes % (Manual) Monocytes % (Manual) Platelet Estimate Large Platelets Giant Platelets Polychromasia Hypochromasia (manual) Poikilocytosis (manual Anisocytosis (manual) Ovalocytes David Cells PT INR APTT pO2 VBG pH VBG pCO2 VBG HCO3 VBG Total CO2 VBG O2 Sat (Calc) VBG Base Excess VBG Potassium Glucose Lactate Sodium Potassium Chloride Carbon Dioxide Anion Gap BUN Creatinine Est GFR ( Amer) Est GFR (Non-Af Amer) POC Glucose (mg/dL) Random Glucose Hemoglobin A1c 6.7 H Uric Acid 4.0 Calcium Total Bilirubin AST ALT Alkaline Phosphatase Total Creatine Kinase CK-MB (Mass) 0.90 Troponin I 0.2110 H* NT-Pro-B Natriuret Pep Total Protein Albumin Globulin Albumin/Globulin Ratio Procalcitonin Free T4 1.80 TSH 3rd Generation 13.10 H Venous Blood Potassium Urine Color Urine Clarity Urine pH Ur Specific [place] Urine Protein Urine Glucose (UA) Urine Ketones Urine Blood Urine Nitrate Urine Bilirubin Urine Urobilinogen Ur Leukocyte Esterase Urine RBC (Auto) Stool Occult Blood B-Hydroxybutyrate 12/28/17 12/28/17 11:32 12:47 WBC RBC Hgb Hct MCV MCH MCHC RDW Plt Count MPV Neut % (Auto) Lymph % (Auto) [place] % (Auto) Eos % (Auto) Baso % (Auto) Neut # (Auto) Lymph # (Auto) [place] # (Auto) Eos # (Auto) Baso # (Auto) Neutrophils % (Manual) Band Neutrophils % Lymphocytes % (Manual) Monocytes % (Manual) Platelet Estimate Large Platelets Giant Platelets Polychromasia Hypochromasia (manual) Poikilocytosis (manual Anisocytosis (manual) Ovalocytes [place] Cells PT INR APTT pO2 VBG pH VBG pCO2 VBG HCO3 VBG Total CO2 VBG O2 Sat (Calc) VBG Base Excess VBG Potassium Glucose Lactate Sodium Potassium Chloride Carbon Dioxide Anion Gap BUN Creatinine Est GFR ( Amer) Est GFR (Non-Af Amer) POC Glucose (mg/dL) 148 H Random Glucose Hemoglobin A1c Uric Acid Calcium Total Bilirubin AST ALT Alkaline Phosphatase Total Creatine Kinase CK-MB (Mass) Troponin I NT-Pro-B Natriuret Pep Total Protein Albumin Globulin Albumin/Globulin Ratio Procalcitonin Free T4 TSH 3rd Generation Venous Blood Potassium Urine Color Urine Clarity Urine pH Ur Specific [place] Urine Protein Urine Glucose (UA) Urine Ketones Urine Blood Urine Nitrate Urine Bilirubin Urine Urobilinogen Ur Leukocyte Esterase Urine RBC (Auto) Stool Occult Blood Positive H B-Hydroxybutyrate EKG/Cardiology Studies: Cardiology / EKG Studies 12/27/17 21:12 EKG [ELECTROCARDIOGRAM] Stat Comment: Mode Of Transportation: BED Reason For Exam: cp 12/28/17 14:00 EKG [ELECTROCARDIOGRAM] Routine Comment: Mode Of Transportation: Reason For Exam: [id number] Critical Care Progress Note - Nutrition Nutrition: Nutrition Category Date Time Status Heart Healthy Diet [DIET] Diets 12/27/17 Breakfast Active Attending/Attestation - Attestation I have personally seen and examined this patient.: Yes I have fully participated in the care of the patient.: Yes I have reviewed all pertinent clinical information: Yes Notes (Text): 12/28/17 17:42 patient seen and examined in the intensive care unit. Assessment and plan as per resident note Continue IV antibiotics Follow-up culture and sensitivity hold Anticoagulation
[2017-12-28] MEDS ORDERED: Fluticasone-Salmeterol 250-50mcg Diskus INH SCH (08:00)
[2017-12-28 08:08] LABS: BANDS 18 % (0-2); LYMPHOCYTE 1 % (20-40); MONOCYTE 4 % (0-10); NEUTROPHIL 77 % (50-75); PLATELET ESTIMATE NORMAL (NORMAL); TOTAL CELLS COUNTED 100
[2017-12-28 08:09] LABS: ANISOCYTOSIS SLIGHT; BURR CELLS SLIGHT; GIANT PLATELETS PRESENT; HYPOCHROMIC MODERATE; LARGE PLATELETS PRESENT; POIKILOCYTOSIS SLIGHT
[2017-12-28 08:32] LABS: CK-MB 0.84 ng/mL (0.0-3.38)
[2017-12-28 09:30] LABS: CK-MB 0.9 ng/mL (0.0-3.38); TROPONIN I 0.211 ng/mL (0.00-0.120)
[2017-12-28] MEDS: Fluticasone-Salmeterol 250-50mcg Diskus INH SCH (10:05)
[2017-12-28] MEDS: Pantoprazole 40 mg EC Tab PO SCH (10:07)
--- NOTE | 2017-12-28 10:32 | RAD ---
PROCEDURE: CHEST RADIOGRAPH, 1 VIEW HISTORY: Fever COMPARISON: Abdomen Obstructive series with chest 12/04/2017. FINDINGS: LUNGS: Permanent pacemaker/ AICD unchanged in appearance. No acute infiltrate bilaterally. Underlying chronic interstitial pulmonary disease appreciated. PLEURA: No pneumothorax or pleural fluid seen. CARDIOVASCULAR: Cardiomegaly is again identified without interval change in pulmonary vascular pattern. No overt CHF pattern. OSSEOUS STRUCTURES: No significant abnormalities. VISUALIZED UPPER ABDOMEN: Normal. OTHER FINDINGS: None. IMPRESSION: Stable cardiomegaly and chronic interstitial pulmonary disease. No acute alveolitis, pleural effusion or pneumothorax bilaterally. Permanent pacemaker/AICD unchanged in appearance.
--- NOTE | 2017-12-28 13:08 | CP.PCM.CON ---
History of Present Illness - History of Present Illness History of Present Illness: 72 M with h/o donor renal transplant 2005, h/o AICD 2012, replaced 2017 , h/o post transplant dm, htn, chronic afib, recent gi bleeding, recent endocarditis when admitted in [facility], currently details not known but given prolonged course of IV ABs, h/o recent left knee ? bursal tap and steroid injection. Patient presented to the ER with chills rigors, for 2-3 days, and noticed fever of 104 F in ER, tachycardic, in afib, leucocytosis. Patient denied , cough, cold, runny nose, any pain, sob, diarrhea. C/o some left knee pain post tap and was warmer as compared to the the right but on tap only scant fluid no to sufficient for the test. Other PMH: COPD, CMP, CKD 3, colon CA post colectomy, recurrent gout, chronic interstitial fibrosis, hypothyroidism PSH: renal transplant colectomy ICD x 2 PMH as above Meds reviewed from prior record, recent meds being updated Allergies Metoprolol c/o itching Family history not contributory Social history, lives with family, former smoking, no alcohol, no illicit drugs Review of Systems - Constitutional Constitutional: Chills, Fatigue, Fever - EENT Eyes: absent: As Per HPI, Blind Spots, Blurred Vision, Change in Vision, Decreased Night Vision, Diplopia, Discharge, Dry Eye, Exophthalmos, Floaters, Irritation, Itchy Eyes, Loss of Peripheral Vision, Pain, Photophobia, Requires Corrective Lenses, Sees Flashes, Spots in Vision, Tunnel Vision, Other Visual Disturbances, Loss of Vision, Other Ears: absent: As Per HPI, Decreased Hearing, Ear Discharge, Ear Pain, Tinnitus, Abnormal Hearing, Disequilibrium, Dizziness, Other Nose/Mouth/Throat: absent: As Per HPI, Epistaxis, Nasal Congestion, Nasal Discharge, Nasal Obstruction, Nasal Trauma, Nose Pain, Post Nasal Drip, Sinus Pain, Sinus Pressure, Bleeding Gums, Change in Voice, Dental Pain, Dry Mouth, Dysphagia, Halitosis, Hoarsness, Lip Swelling, Mouth Lesions, Mouth Pain, Odynophagia, Sore Throat, Throat Swelling, Tongue Swelling, Facial Pain, Neck Pain, Neck Mass, Other - Cardiovascular Cardiovascular: Dyspnea on Exertion, Leg Edema - Respiratory Respiratory: Cough, Dyspnea on Exertion - Gastrointestinal Gastrointestinal: Diarrhea, Nausea - Genitourinary Genitourinary: As Per HPI - Musculoskeletal Musculoskeletal: Muscle Cramps, Muscle Weakness, Myalgias - Neurological Neurological: Weakness Past Patient History - Infectious Disease Hx of Infectious Diseases: None - Tetanus Immunizations Tetanus Immunization: Unknown - Past Medical History & Family History Past Medical History?: Yes Past Family History: Reviewed and not pertinent - Past Social History Smoking Status: Never Smoked Chewing Tobacco Use: No Cigar Use: No Alcohol: None Drugs: Denies Home Situation {Lives}: With Family - CARDIAC Hx Cardiac Disorders: Yes Hx Atrial Fibrillation: Yes Hx Cardia Arrhythmia: Yes Hx Congestive Heart Failure: Yes Hx Hypercholesterolemia: Yes Hx Hypertension: Yes Hx Pacemaker: Yes (Patient has a ISSH with ventricular tachycardia and an ICD.) - PULMONARY Hx Respiratory Disorders: Yes Hx Asthma: Yes Hx Bronchitis: Yes Hx Chronic Obstructive Pulmonary Disease (COPD): Yes Hx Emphysema: Yes Hx Pneumonia: Yes - NEUROLOGICAL Hx Neurological Disorder: No - HEENT Hx HEENT Problems: Yes Hx Cataracts: Yes (bilat iol) - RENAL Hx Chronic Kidney Disease: Yes Other/Comment: Hx of Kidney transplant 2004 - ENDOCRINE/METABOLIC Hx Endocrine Disorders: Yes Hx Diabetes Mellitus Type 2: Yes Hx Hypothyroidism: Yes - HEMATOLOGICAL/ONCOLOGICAL Hx Blood Disorders: Yes Hx Anemia: Yes - INTEGUMENTARY Hx Dermatological Problems: Yes (sun sentivity) - MUSCULOSKELETAL/RHEUMATOLOGICAL Hx Musculoskeletal Disorders: Yes Hx Arthritis: Yes (Gout) Hx Falls: No Hx Gout: Yes - GASTROINTESTINAL Hx Gastrointestinal Disorders: Yes Hx Gastritis: Yes - GENITOURINARY/GYNECOLOGICAL Hx Genitourinary Disorders: No - PSYCHIATRIC Hx Psychophysiologic Disorder: No Hx Substance Use: No - SURGICAL HISTORY Hx Surgeries: Yes Hx Kidney Transplant: Yes () Other/Comment: THYROID SURGERY-2004. Hx of perforated bowel corrected with surgery. AICD - ANESTHESIA Hx Anesthesia: Yes Hx Anesthesia Reactions: No Hx Malignant Hyperthermia: No Has any member of the family had a problem w/ anesthesia?: No Meds Allergies/Adverse Reactions: Allergies Allergy/AdvReac Type Severity Reaction Status Date / Time metoprolol Allergy Intermediate ITCHING Verified 12/27/17 21:09 - Medications Medications: Current Medications Acetaminophen (Tylenol 325mg Tab) 325 mg PO Q6 PRN PRN Reason: Fever >100.4 F Colchicine (Colocrys) 0.6 mg PO DAILY FAHEEM Last Admin: 12/28/17 10:35 Dose: 0.6 mg Heparin Sodium (Porcine) (Heparin) 5,000 units SC Q12 [facility] Last Admin: 12/28/17 10:08 Dose: 5,000 units Piperacillin Sod/Tazobactam Sod (Zosyn 2.25 Gm Iv Premix) 2.25 gm in 50 mls @ 100 mls/hr IVPB Q6H FAHEEM PRN Reason: Protocol Last Admin: 12/28/17 10:51 Dose: 100 mls/hr Sodium Chloride (Sodium Chloride 0.9%) 1,000 mls @ 100 mls/hr IV .Q10H [facility] Last Admin: 12/28/17 10:07 Dose: 100 mls/hr Vancomycin/Sodium Chloride (Vancomycin 1 Gm/Ns 200 Ml) 1 gm in 200 mls @ 133 mls/hr IVPB Q24H FAHEEM PRN Reason: Protocol Stop: 01/02/18 23:31 Levothyroxine Sodium (Synthroid) 150 mcg PO DAILY@0630 [facility] Last Admin: 12/28/17 06:21 Dose: 150 mcg Montelukast Sodium (Singulair) 10 mg PO DAILY [facility] Last Admin: 12/28/17 10:07 Dose: 10 mg Pantoprazole Sodium (Protonix Ec Tab) 40 mg PO DAILY [facility] Last Admin: 12/28/17 10:07 Dose: 40 mg Fluticasone/Salmeterol (Advair Diskus 250/50) 1 puff INH RQ12 [facility] Last Admin: 12/28/17 10:05 Dose: 1 puff Tacrolimus (Prograf Cap) 3 mg PO BID [facility] Physical Exam - Constitutional Appears: In Acute Distress, Chronically Ill - Head Exam Head Exam: ATRAUMATIC, NORMAL INSPECTION - Eye Exam Eye Exam: EOMI, Normal appearance - Neck Exam Neck exam: Positive for: Normal Inspection. Negative for: Tenderness - Respiratory Exam Respiratory Exam: Rhonchi - Cardiovascular Exam Cardiovascular Exam: Tachycardia, Irregular Rhythm - GI/Abdominal Exam GI & Abdominal Exam: Soft. absent: Tenderness - Extremities Exam Extremities exam: Positive for: pedal edema. Negative for: tenderness - Neurological Exam Neurological exam: Alert, CN II-XII Intact - Skin Skin Exam: Dry, Warm Results - Vital Signs Recent Vital Signs: Last Vital Signs Temp 97.2 F L 12/28/17 08:00 Pulse 107 H 12/28/17 11:30 Resp 24 12/28/17 11:30 BP 103/66 12/28/17 10:44 Pulse Ox 99 12/28/17 11:20 - Labs Result Diagrams: 12/28/17 05:56 12/28/17 05:56 Labs: Laboratory Results - last 24 hr 12/27/17 12/27/17 12/27/17 21:32 21:37 21:37 WBC 23.0 H D RBC 3.80 L Hgb 10.4 L Hct 32.3 L MCV 85.1 D MCH 27.5 MCHC 32.3 L RDW 17.2 H Plt Count 261 MPV 7.9 Neut % (Auto) 95.3 H Lymph % (Auto) 2.7 L Yancey % (Auto) 1.6 Eos % (Auto) 0.2 Baso % (Auto) 0.2 Neut # (Auto) 21.9 H Lymph # (Auto) 0.6 L Yancey # (Auto) 0.4 Eos # (Auto) 0.0 Baso # (Auto) 0.1 Neutrophils % (Manual) 80 H Band Neutrophils % 17 H* Lymphocytes % (Manual) 2 L Monocytes % (Manual) 1 Platelet Estimate Normal Large Platelets Giant Platelets Polychromasia Slight Hypochromasia (manual) Slight Poikilocytosis (manual Anisocytosis (manual) Slight Ovalocytes Slight [place] Cells PT INR APTT pO2 VBG pH VBG pCO2 VBG HCO3 VBG Total CO2 VBG O2 Sat (Calc) VBG Base Excess VBG Potassium Glucose Lactate Sodium 134 Potassium 3.7 Chloride 89 L Carbon Dioxide 30 Anion Gap 19 BUN 44 H Creatinine 1.7 H Est GFR ( Amer) 48 Est GFR (Non-Af Amer) 40 POC Glucose (mg/dL) 98 Random Glucose 82 Hemoglobin A1c Calcium 7.6 L Total Bilirubin 0.7 AST 45 ALT 71 Alkaline Phosphatase 110 Total Creatine Kinase CK-MB (Mass) Troponin I 0.1540 H* NT-Pro-B Natriuret Pep 7190 H Total Protein 7.2 Albumin 4.1 Globulin 3.1 Albumin/Globulin Ratio 1.3 Procalcitonin Free T4 TSH 3rd Generation Venous Blood Potassium Urine Color Urine Clarity Urine pH Ur Specific [place] Urine Protein Urine Glucose (UA) Urine Ketones Urine Blood Urine Nitrate Urine Bilirubin Urine Urobilinogen Ur Leukocyte Esterase Urine RBC (Auto) Stool Occult Blood B-Hydroxybutyrate 0.10 12/27/17 12/27/17 12/27/17 21:37 21:43 21:45 WBC RBC Hgb Hct MCV MCH MCHC RDW Plt Count MPV Neut % (Auto) Lymph % (Auto) Yancey % (Auto) Eos % (Auto) Baso % (Auto) Neut # (Auto) Lymph # (Auto) Yancey # (Auto) Eos # (Auto) Baso # (Auto) Neutrophils % (Manual) Band Neutrophils % Lymphocytes % (Manual) Monocytes % (Manual) Platelet Estimate Large Platelets Giant Platelets Polychromasia Hypochromasia (manual) Poikilocytosis (manual Anisocytosis (manual) Ovalocytes David Cells PT 13.0 H INR 1.2 APTT 30 pO2 21 L VBG pH 7.41 VBG pCO2 52 VBG HCO3 28.6 VBG Total CO2 34.6 H VBG O2 Sat (Calc) 34.9 L VBG Base Excess 6.9 H VBG Potassium 3.6 Glucose 81 Lactate 3.9 H Sodium 136.0 Potassium Chloride 92.0 L Carbon Dioxide Anion Gap BUN Creatinine Est GFR ( Amer) Est GFR (Non-Af Amer) POC Glucose (mg/dL) Random Glucose Hemoglobin A1c Calcium Total Bilirubin AST ALT Alkaline Phosphatase Total Creatine Kinase CK-MB (Mass) Troponin I NT-Pro-B Natriuret Pep Total Protein Albumin Globulin Albumin/Globulin Ratio Procalcitonin Free T4 1.24 TSH 3rd Generation 20.40 H Venous Blood Potassium 3.6 Urine Color Urine Clarity Urine pH Ur Specific [place] Urine Protein Urine Glucose (UA) Urine Ketones Urine Blood Urine Nitrate Urine Bilirubin Urine Urobilinogen Ur Leukocyte Esterase Urine RBC (Auto) Stool Occult Blood B-Hydroxybutyrate 12/27/17 12/28/17 12/28/17 21:53 00:25 05:56 WBC 24.6 H RBC 3.06 L Hgb 8.5 L Hct 26.1 L MCV 85.4 MCH 27.7 MCHC 32.5 L RDW 17.0 H Plt Count 200 MPV 8.5 Neut % (Auto) 93.6 H Lymph % (Auto) 2.2 L Yancey % (Auto) 3.5 Eos % (Auto) 0.4 Baso % (Auto) 0.3 Neut # (Auto) 23.0 H Lymph # (Auto) 0.5 L Y[place]y # (Auto) 0.9 H Eos # (Auto) 0.1 Baso # (Auto) 0.1 Neutrophils % (Manual) 77 H Band Neutrophils % 18 H* Lymphocytes % (Manual) 1 L Monocytes % (Manual) 4 Platelet Estimate Normal Large Platelets Present Giant Platelets Present Polychromasia Hypochromasia (manual) Moderate Poikilocytosis (manual Slight Anisocytosis (manual) Slight Ovalocytes [place] Cells Slight PT INR APTT pO2 48 VBG pH 7.47 H VBG pCO2 37 L VBG HCO3 27.1 VBG Total CO2 28.0 VBG O2 Sat (Calc) 85.6 H VBG Base Excess 3.2 H VBG Potassium 2.8 L Glucose 75 Lactate 1.8 Sodium 138.0 Potassium Chloride 103.0 Carbon Dioxide Anion Gap BUN Creatinine Est GFR ( Amer) Est GFR (Non-Af Amer) POC Glucose (mg/dL) Random Glucose Hemoglobin A1c Calcium Total Bilirubin AST ALT Alkaline Phosphatase Total Creatine Kinase CK-MB (Mass) Troponin I NT-Pro-B Natriuret Pep Total Protein Albumin Globulin Albumin/Globulin Ratio Procalcitonin Free T4 TSH 3rd Generation Venous Blood Potassium 2.8 L Urine Color Straw Urine Clarity Clear Urine pH 7.0 Ur Specific [place] 1.005 Urine Protein 1+ H Urine Glucose (UA) Normal Urine Ketones Negative Urine Blood Negative Urine Nitrate Negative Urine Bilirubin Negative Urine Urobilinogen Normal Ur Leukocyte Esterase Neg Urine RBC (Auto) < 1 Stool Occult Blood B-Hydroxybutyrate 12/28/17 12/28/17 12/28/17 05:56 05:56 07:12 WBC RBC Hgb Hct MCV MCH MCHC RDW Plt Count MPV Neut % (Auto) Lymph % (Auto) Yancey % (Auto) Eos % (Auto) Baso % (Auto) Neut # (Auto) Lymph # (Auto) Yancey # (Auto) Eos # (Auto) Baso # (Auto) Neutrophils % (Manual) Band Neutrophils % Lymphocytes % (Manual) Monocytes % (Manual) Platelet Estimate Large Platelets Giant Platelets Polychromasia Hypochromasia (manual) Poikilocytosis (manual Anisocytosis (manual) Ovalocytes David Cells PT INR APTT pO2 VBG pH VBG pCO2 VBG HCO3 VBG Total CO2 VBG O2 Sat (Calc) VBG Base Excess VBG Potassium Glucose Lactate Sodium 137 Potassium 3.6 Chloride 100 Carbon Dioxide 27 Anion Gap 13 BUN 42 H Creatinine 1.7 H Est GFR ( Amer) 48 Est GFR (Non-Af Amer) 40 POC Glucose (mg/dL) 99 Random Glucose 75 Hemoglobin A1c Calcium 6.2 L Total Bilirubin 0.7 AST 59 D ALT 69 Alkaline Phosphatase 127 H Total Creatine Kinase < 20 L CK-MB (Mass) 0.84 Troponin I 0.2990 H* NT-Pro-B Natriuret Pep Total Protein 5.3 L Albumin 2.8 L D Globulin 2.5 Albumin/Globulin Ratio 1.1 Procalcitonin 4.79 H Free T4 TSH 3rd Generation Venous Blood Potassium Urine Color Urine Clarity Urine pH Ur Specific [place] Urine Protein Urine Glucose (UA) Urine Ketones Urine Blood Urine Nitrate Urine Bilirubin Urine Urobilinogen Ur Leukocyte Esterase Urine RBC (Auto) Stool Occult Blood B-Hydroxybutyrate 12/28/17 12/28/17 12/28/17 08:48 08:48 08:48 WBC RBC Hgb Hct MCV MCH MCHC RDW Plt Count MPV Neut % (Auto) Lymph % (Auto) [place] % (Auto) Eos % (Auto) Baso % (Auto) Neut # (Auto) Lymph # (Auto) Yancey # (Auto) Eos # (Auto) Baso # (Auto) Neutrophils % (Manual) Band Neutrophils % Lymphocytes % (Manual) Monocytes % (Manual) Platelet Estimate Large Platelets Giant Platelets Polychromasia Hypochromasia (manual) Poikilocytosis (manual Anisocytosis (manual) Ovalocytes [place] Cells PT INR APTT pO2 VBG pH VBG pCO2 VBG HCO3 VBG Total CO2 VBG O2 Sat (Calc) VBG Base Excess VBG Potassium Glucose Lactate Sodium Potassium Chloride Carbon Dioxide Anion Gap BUN Creatinine Est GFR ( Amer) Est GFR (Non-Af Amer) POC Glucose (mg/dL) Random Glucose Hemoglobin A1c 6.7 H Calcium Total Bilirubin AST ALT Alkaline Phosphatase Total Creatine Kinase CK-MB (Mass) 0.90 Troponin I 0.2110 H* NT-Pro-B Natriuret Pep Total Protein Albumin Globulin Albumin/Globulin Ratio Procalcitonin Free T4 1.80 TSH 3rd Generation 13.10 H Venous Blood Potassium Urine Color Urine Clarity Urine pH Ur Specific [place] Urine Protein Urine Glucose (UA) Urine Ketones Urine Blood Urine Nitrate Urine Bilirubin Urine Urobilinogen Ur Leukocyte Esterase Urine RBC (Auto) Stool Occult Blood B-Hydroxybutyrate 12/28/17 12/28/17 11:32 12:47 WBC RBC Hgb Hct MCV MCH MCHC RDW Plt Count MPV Neut % (Auto) Lymph % (Auto) [place] % (Auto) Eos % (Auto) Baso % (Auto) Neut # (Auto) Lymph # (Auto) [place] # (Auto) Eos # (Auto) Baso # (Auto) Neutrophils % (Manual) Band Neutrophils % Lymphocytes % (Manual) Monocytes % (Manual) Platelet Estimate Large Platelets Giant Platelets Polychromasia Hypochromasia (manual) Poikilocytosis (manual Anisocytosis (manual) Ovalocytes [place] Cells PT INR APTT pO2 VBG pH VBG pCO2 VBG HCO3 VBG Total CO2 VBG O2 Sat (Calc) VBG Base Excess VBG Potassium Glucose Lactate Sodium Potassium Chloride Carbon Dioxide Anion Gap BUN Creatinine Est GFR ( Amer) Est GFR (Non-Af Amer) POC Glucose (mg/dL) 148 H Random Glucose Hemoglobin A1c Calcium Total Bilirubin AST ALT Alkaline Phosphatase Total Creatine Kinase CK-MB (Mass) Troponin I NT-Pro-B Natriuret Pep Total Protein Albumin Globulin Albumin/Globulin Ratio Procalcitonin Free T4 TSH 3rd Generation Venous Blood Potassium Urine Color Urine Clarity Urine pH Ur Specific [place] Urine Protein Urine Glucose (UA) Urine Ketones Urine Blood Urine Nitrate Urine Bilirubin Urine Urobilinogen Ur Leukocyte Esterase Urine RBC (Auto) Stool Occult Blood Positive H B-Hydroxybutyrate Assessment & Plan (1) Chronic kidney disease, stage III (moderate) Status: Acute (2) History of kidney transplant Status: Acute (3) Cardiomyopathy Status: Acute (4) Sepsis Status: Acute (5) Gout Status: Acute (6) Gout Status: Acute (7) Atrial fibrillation with rapid ventricular response Status: Acute - Assessment and Plan (Free Text) Plan: roca culture knee tap IV ABs check uric acid level check FK level serial chemistries trial steroids for possible gout same ISs
[2017-12-28] MEDS ORDERED: diltiaZEM 240 mg/24 Hours CD Cap PO ONE (15:00)
[2017-12-28] MEDS: Albuterol-Ipratrop 3 mg / 0.5 (3 ml) UD INH SCH ×2 (16:01→20:01)
[2017-12-28] MEDS: (Novolin R) Insulin Human Regular 100 units/ml vial SC SCH ×2 (17:15→21:10)
--- NOTE | 2017-12-28 18:11 | CP.PCM.CON ---
History of Present Illness - History of Present Illness History of Present Illness: [id number] male with PMHx of kidney transplant 12 years ago, AICD endocarditis borderline diabetes, HTN, asthma, and implanted defibrillator presents to ED with h/o recent left knee ? bursal tap and steroid injection. Patient presented to the ER with chills rigors, for 2-3 days, and noticed fever of 104 F in ER, tachycardic, in afib, leucocytosis. Patient denied, cough, cold , runny nose, any pain, sob, diarrhea. C/o some left knee pain post tap and was warmer as compared to the the right but on tap only scant fluid no to sufficient for the test. - Medical History PMH: Anemia, Arthritis, Asthma, Atrial Fibrillation, Bronchitis, CAD ( CARDIOMYOPATHY), Cardia Arrhythmia, CHF, COPD, Diabetes (NIDDM), Emphysema, Gastritis, Gastrointestinal Ulcer, HTN, Hypercholesterolemia, Hypothyroidism, Pneumonia, End Stage Renal Disease, Chronic Kidney Disease Surgical History: Pacemaker (Patient has a ISSH with ventricular tachycardia and an ICD.) - [employer] Procedures C.A.T. SCAN OF THORAX (02/06/13) CLOSED [PERCUTANEOUS] [NEEDLE] BIOPSY OF LUNG (02/06/13) COLONOSCOPY (08/17/06) ENDOSC POLYPECTOMY OF LG INTEST (01/01/15) ESOPHAGOGASTRODUODENOSCOPY [EGD] W/CLOSED BIOPSY (01/01/15) NAIL REMOVAL (12/31/13) PACKED CELL TRANSFUSION (01/01/15) Review of Systems - Review of Systems All systems: reviewed and no additional remarkable complaints except - Constitutional Constitutional: As Per HPI, Anorexia, Chills, Fever - EENT Eyes: absent: As Per HPI, Blind Spots, Blurred Vision, Change in Vision, Decreased Night Vision, Diplopia, Discharge, Dry Eye, Exophthalmos, Floaters, Irritation, Itchy Eyes, Loss of Peripheral Vision, Pain, Photophobia, Requires Corrective Lenses, Sees Flashes, Spots in Vision, Tunnel Vision, Other Visual Disturbances, Loss of Vision, Other Ears: absent: As Per HPI, Decreased Hearing, Ear Discharge, Ear Pain, Tinnitus, Abnormal Hearing, Disequilibrium, Dizziness, Other Nose/Mouth/Throat: absent: As Per HPI, Epistaxis, Nasal Congestion, Nasal Discharge, Nasal Obstruction, Nasal Trauma, Nose Pain, Post Nasal Drip, Sinus Pain, Sinus Pressure, Bleeding Gums, Change in Voice, Dental Pain, Dry Mouth, Dysphagia, Halitosis, Hoarsness, Lip Swelling, Mouth Lesions, Mouth Pain, Odynophagia, Sore Throat, Throat Swelling, Tongue Swelling, Facial Pain, Neck Pain, Neck Mass, Other - Cardiovascular Cardiovascular: As Per HPI - Respiratory Respiratory: As Per HPI, Cough, Dyspnea - Gastrointestinal Gastrointestinal: absent: As Per HPI, Abdominal Pain, Belching, Bloating, Change in Bowel Habits, Change in Stool Character, Coffee Ground Emesis, Constipation, Cramping, Diarrhea, Dyspepsia, Dysphagia, Early Satiety, Excessive Flatus, Fecal Incontinence, Heartburn, Hematemesis, Hematochezia, Loose Stools, Melena, Nausea, Odynophagia, Temesmus, Vomiting, Other - Genitourinary Genitourinary: absent: As Per HPI, Change in Urinary Stream, Difficulty Urinating, Dysuria, Flank Pain, Hematuria, Pyuria, Nocturia, Urinary Incontinence, Urinary Frequency, Urinary Hesitance, Urinary Urgency, Voiding Freq/Small Amts, Freq UTI, Hx Renal/Bladder Calculi, Hx /Renal Surgery, Bladder Distension, Other - Musculoskeletal Musculoskeletal: As Per HPI - Integumentary Integumentary: As Per HPI - Neurological Neurological: absent: As Per HPI, Abnormal Gait, Abnormal Hearing, Abnormal Movements, Abnormal Speech, Behavioral Changes, Burning Sensations, Confusion, Convulsions, Disequilibrium, Dizziness, Numbness, Focal Weakness, Frequent Falls , Headaches, Lack of Coordination, Loss of Vision, Memory Loss, Paresthesias, Radicular Pain, Restless Legs, Sensory Deficit, Syncope, Tingling, Tremor, Vertigo, Weakness, Other Visual Disturbances, Other - Psychiatric Psychiatric: absent: As Per HPI, Abnormal Sleep Pattern, Anhedonia, Anxiety, Auditory Hallucinations, Behavioral Changes, Change in Appetite, Change in Libido, Confusion, Depression, Difficulty Concentrating, Hallucinations, Homicidal Ideation, Hopelessness, Irritability, Memory Loss, Mood Swings, Panic Attacks, Paranoia, Suicidal Ideation, Visual Hallucinations, Tactile Hallucinations, Other - Endocrine Endocrine: absent: As Per HPI, Change in Body Appearance, Change in Libido, Cold Intolorance, Deepening of Voice, Excessive Sweating, Fatigue, Flushing, Heat Intolorance, Increase in Ring/Shoe/Hat Size, Palpitations, Polydipsia, Polyphagia, Polyuria, Other - Hematologic/Lymphatic Hematologic: absent: As Per HPI, Easy Bleeding, Easy Bruising, Lymphadenopathy, Other Past Patient History - Infectious Disease Hx of Infectious Diseases: None - Tetanus Immunizations Tetanus Immunization: Unknown - Past Medical History & Family History Past Medical History?: Yes Past Family History: Reviewed and not pertinent - Past Social History Smoking Status: Never Smoked Chewing Tobacco Use: No Cigar Use: No Alcohol: None Drugs: Denies Home Situation {Lives}: With Family - CARDIAC Hx Cardiac Disorders: Yes Hx Atrial Fibrillation: Yes Hx Cardia Arrhythmia: Yes Hx Congestive Heart Failure: Yes Hx Hypercholesterolemia: Yes Hx Hypertension: Yes Hx Pacemaker: Yes (Patient has a ISSH with ventricular tachycardia and an ICD.) - PULMONARY Hx Respiratory Disorders: Yes Hx Asthma: Yes Hx Bronchitis: Yes Hx Chronic Obstructive Pulmonary Disease (COPD): Yes Hx Emphysema: Yes Hx Pneumonia: Yes - NEUROLOGICAL Hx Neurological Disorder: No - HEENT Hx HEENT Problems: Yes Hx Cataracts: Yes (bilat iol) - RENAL Hx Chronic Kidney Disease: Yes Other/Comment: Hx of Kidney transplant 2004 - ENDOCRINE/METABOLIC Hx Endocrine Disorders: Yes Hx Diabetes Mellitus Type 2: Yes Hx Hypothyroidism: Yes - HEMATOLOGICAL/ONCOLOGICAL Hx Blood Disorders: Yes Hx Anemia: Yes - INTEGUMENTARY Hx Dermatological Problems: Yes (sun sentivity) - MUSCULOSKELETAL/RHEUMATOLOGICAL Hx Musculoskeletal Disorders: Yes Hx Arthritis: Yes (Gout) Hx Falls: No Hx Gout: Yes - GASTROINTESTINAL Hx Gastrointestinal Disorders: Yes Hx Gastritis: Yes - GENITOURINARY/GYNECOLOGICAL Hx Genitourinary Disorders: No - PSYCHIATRIC Hx Psychophysiologic Disorder: No Hx Substance Use: No - SURGICAL HISTORY Hx Surgeries: Yes Hx Kidney Transplant: Yes () Other/Comment: THYROID SURGERY-2004. Hx of perforated bowel corrected with surgery. AICD - ANESTHESIA Hx Anesthesia: Yes Hx Anesthesia Reactions: No Hx Malignant Hyperthermia: No Has any member of the family had a problem w/ anesthesia?: No Meds Allergies/Adverse Reactions: Allergies Allergy/AdvReac Type Severity Reaction Status Date / Time metoprolol Allergy Intermediate ITCHING Verified 12/27/17 21:09 - Medications Medications: Current Medications Acetaminophen (Tylenol 325mg Tab) 325 mg PO Q6 PRN PRN Reason: Fever >100.4 F Albuterol/Ipratropium (Duoneb 3 Mg/0.5 Mg (3 Ml) Ud) 3 ml INH RQ6 [facility] Colchicine (Colocrys) 0.6 mg PO DAILY [facility] Last Admin: 12/28/17 10:35 Dose: 0.6 mg Diltiazem HCl (Cardizem Cd) 240 mg PO DAILY [facility] Heparin Sodium (Porcine) (Heparin) 5,000 units SC Q12 [facility] Last Admin: 12/28/17 10:08 Dose: 5,000 units Piperacillin Sod/Tazobactam Sod (Zosyn 2.25 Gm Iv Premix) 2.25 gm in 50 mls @ 100 mls/hr IVPB Q6H [facility] PRN Reason: Protocol Last Admin: 12/28/17 17:30 Dose: 100 mls/hr Sodium Chloride (Sodium Chloride 0.9%) 1,000 mls @ 100 mls/hr IV .Q10H [facility] Last Admin: 12/28/17 10:07 Dose: 100 mls/hr Vancomycin/Sodium Chloride (Vancomycin 1 Gm/Ns 200 Ml) 1 gm in 200 mls @ 133 mls/hr IVPB Q24H [facility] PRN Reason: Protocol Stop: 01/02/18 23:31 Insulin Human Regular (Novolin R) 0 unit SC ACHS [facility] PRN Reason: Protocol Last Admin: 12/28/17 17:15 Dose: Not Given Levothyroxine Sodium (Synthroid) 150 mcg PO DAILY@0630 [facility] Last Admin: 12/28/17 06:21 Dose: 150 mcg Montelukast Sodium (Singulair) 10 mg PO DAILY [facility] Last Admin: 12/28/17 10:07 Dose: 10 mg Pantoprazole Sodium (Protonix Ec Tab) 40 mg PO DAILY [facility] Last Admin: 12/28/17 10:07 Dose: 40 mg Prednisone (Prednisone Tab) 20 mg PO DAILY [facility] Last Admin: 12/28/17 15:32 Dose: 20 mg Fluticasone/Salmeterol (Advair Diskus 250/50) 1 puff INH RQ12 [facility] Last Admin: 12/28/17 10:05 Dose: 1 puff Tacrolimus (Prograf Cap) 3 mg PO BID [facility] Last Admin: 12/28/17 17:30 Dose: 3 mg Physical Exam - Constitutional Appears: Toxic, Chronically Ill - Head Exam Head Exam: ATRAUMATIC, NORMAL INSPECTION, NORMOCEPHALIC - Eye Exam Eye Exam: PERRL. absent: Scleral icterus - ENT Exam ENT Exam: Mucous Membranes Dry, Normal External Ear Exam - Neck Exam Neck exam: Negative for: Lymphadenopathy - Respiratory Exam Respiratory Exam: Decreased Breath Sounds, Rhonchi - Cardiovascular Exam Cardiovascular Exam: Tachycardia, REGULAR RHYTHM, +S1, +S2 - GI/Abdominal Exam GI & Abdominal Exam: Diminished Bowel Sounds, Distended, Soft. absent: Tenderness - Rectal Exam Rectal Exam: Deferred - Exam Exam: NORMAL INSPECTION - Extremities Exam Extremities exam: Positive for: joint swelling, pedal pulses present. Negative for: calf tenderness, pedal edema, tenderness Additional comments: warm LLE / knee - Back Exam Back exam: absent: CVA tenderness (L), CVA tenderness (R), paraspinal tenderness - Neurological Exam Neurological exam: Alert, CN II-XII Intact, Oriented x3 - Psychiatric Exam Psychiatric exam: Anxious - Skin Skin Exam: Dry Results - Vital Signs Recent Vital Signs: Last Vital Signs Temp 97.2 F L 12/28/17 16:00 Pulse 107 H 12/28/17 16:20 Resp 18 12/28/17 16:20 BP 101/58 L 12/28/17 15:44 Pulse Ox 100 12/28/17 16:20 - Labs Result Diagrams: 12/28/17 05:56 12/28/17 05:56 Labs: Laboratory Results - last 24 hr 12/27/17 12/27/17 12/27/17 21:32 21:37 21:37 WBC 23.0 H D RBC 3.80 L Hgb 10.4 L Hct 32.3 L MCV 85.1 D MCH 27.5 MCHC 32.3 L RDW 17.2 H Plt Count 261 MPV 7.9 Neut % (Auto) 95.3 H Lymph % (Auto) 2.7 L [place] % (Auto) 1.6 Eos % (Auto) 0.2 Baso % (Auto) 0.2 Neut # (Auto) 21.9 H Lymph # (Auto) 0.6 L [place] # (Auto) 0.4 Eos # (Auto) 0.0 Baso # (Auto) 0.1 Neutrophils % (Manual) 80 H Band Neutrophils % 17 H* Lymphocytes % (Manual) 2 L Monocytes % (Manual) 1 Platelet Estimate Normal Large Platelets Giant Platelets Polychromasia Slight Hypochromasia (manual) Slight Poikilocytosis (manual Anisocytosis (manual) Slight Ovalocytes Slight [place] Cells PT INR APTT pO2 VBG pH VBG pCO2 VBG HCO3 VBG Total CO2 VBG O2 Sat (Calc) VBG Base Excess VBG Potassium Glucose Lactate Sodium 134 Potassium 3.7 Chloride 89 L Carbon Dioxide 30 Anion Gap 19 BUN 44 H Creatinine 1.7 H Est GFR ( Amer) 48 Est GFR (Non-Af Amer) 40 POC Glucose (mg/dL) 98 Random Glucose 82 Hemoglobin A1c Uric Acid Calcium 7.6 L Total Bilirubin 0.7 AST 45 ALT 71 Alkaline Phosphatase 110 Total Creatine Kinase CK-MB (Mass) Troponin I 0.1540 H* NT-Pro-B Natriuret Pep 7190 H Total Protein 7.2 Albumin 4.1 Globulin 3.1 Albumin/Globulin Ratio 1.3 Procalcitonin Free T4 TSH 3rd Generation Venous Blood Potassium Urine Color Urine Clarity Urine pH Ur Specific [place] Urine Protein Urine Glucose (UA) Urine Ketones Urine Blood Urine Nitrate Urine Bilirubin Urine Urobilinogen Ur Leukocyte Esterase Urine RBC (Auto) Stool Occult Blood B-Hydroxybutyrate 0.10 12/27/17 12/27/17 12/27/17 21:37 21:43 21:45 WBC RBC Hgb Hct MCV MCH MCHC RDW Plt Count MPV Neut % (Auto) Lymph % (Auto) [place] % (Auto) Eos % (Auto) Baso % (Auto) Neut # (Auto) Lymph # (Auto) [place] # (Auto) Eos # (Auto) Baso # (Auto) Neutrophils % (Manual) Band Neutrophils % Lymphocytes % (Manual) Monocytes % (Manual) Platelet Estimate Large Platelets Giant Platelets Polychromasia Hypochromasia (manual) Poikilocytosis (manual Anisocytosis (manual) Ovalocytes [place] Cells PT 13.0 H INR 1.2 APTT 30 pO2 21 L VBG pH 7.41 VBG pCO2 52 VBG HCO3 28.6 VBG Total CO2 34.6 H VBG O2 Sat (Calc) 34.9 L VBG Base Excess 6.9 H VBG Potassium 3.6 Glucose 81 Lactate 3.9 H Sodium 136.0 Potassium Chloride 92.0 L Carbon Dioxide Anion Gap BUN Creatinine Est GFR ( Amer) Est GFR (Non-Af Amer) POC Glucose (mg/dL) Random Glucose Hemoglobin A1c Uric Acid Calcium Total Bilirubin AST ALT Alkaline Phosphatase Total Creatine Kinase CK-MB (Mass) Troponin I NT-Pro-B Natriuret Pep Total Protein Albumin Globulin Albumin/Globulin Ratio Procalcitonin Free T4 1.24 TSH 3rd Generation 20.40 H Venous Blood Potassium 3.6 Urine Color Urine Clarity Urine pH Ur Specific [place] Urine Protein Urine Glucose (UA) Urine Ketones Urine Blood Urine Nitrate Urine Bilirubin Urine Urobilinogen Ur Leukocyte Esterase Urine RBC (Auto) Stool Occult Blood B-Hydroxybutyrate 12/27/17 12/28/17 12/28/17 21:53 00:25 05:56 WBC 24.6 H RBC 3.06 L Hgb 8.5 L Hct 26.1 L MCV 85.4 MCH 27.7 MCHC 32.5 L RDW 17.0 H Plt Count 200 MPV 8.5 Neut % (Auto) 93.6 H Lymph % (Auto) 2.2 L [place] % (Auto) 3.5 Eos % (Auto) 0.4 Baso % (Auto) 0.3 Neut # (Auto) 23.0 H Lymph # (Auto) 0.5 L [place] # (Auto) 0.9 H Eos # (Auto) 0.1 Baso # (Auto) 0.1 Neutrophils % (Manual) 77 H Band Neutrophils % 18 H* Lymphocytes % (Manual) 1 L Monocytes % (Manual) 4 Platelet Estimate Normal Large Platelets Present Giant Platelets Present Polychromasia Hypochromasia (manual) Moderate Poikilocytosis (manual Slight Anisocytosis (manual) Slight Ovalocytes [place] Cells Slight PT INR APTT pO2 48 VBG pH 7.47 H VBG pCO2 37 L VBG HCO3 27.1 VBG Total CO2 28.0 VBG O2 Sat (Calc) 85.6 H VBG Base Excess 3.2 H VBG Potassium 2.8 L Glucose 75 Lactate 1.8 Sodium 138.0 Potassium Chloride 103.0 Carbon Dioxide Anion Gap BUN Creatinine Est GFR ( Amer) Est GFR (Non-Af Amer) POC Glucose (mg/dL) Random Glucose Hemoglobin A1c Uric Acid Calcium Total Bilirubin AST ALT Alkaline Phosphatase Total Creatine Kinase CK-MB (Mass) Troponin I NT-Pro-B Natriuret Pep Total Protein Albumin Globulin Albumin/Globulin Ratio Procalcitonin Free T4 TSH 3rd Generation Venous Blood Potassium 2.8 L Urine Color Straw Urine Clarity Clear Urine pH 7.0 Ur Specific [place] 1.005 Urine Protein 1+ H Urine Glucose (UA) Normal Urine Ketones Negative Urine Blood Negative Urine Nitrate Negative Urine Bilirubin Negative Urine Urobilinogen Normal Ur Leukocyte Esterase Neg Urine RBC (Auto) < 1 Stool Occult Blood B-Hydroxybutyrate 12/28/17 12/28/17 12/28/17 05:56 05:56 07:12 WBC RBC Hgb Hct MCV MCH MCHC RDW Plt Count MPV Neut % (Auto) Lymph % (Auto) [place] % (Auto) Eos % (Auto) Baso % (Auto) Neut # (Auto) Lymph # (Auto) [place] # (Auto) Eos # (Auto) Baso # (Auto) Neutrophils % (Manual) Band Neutrophils % Lymphocytes % (Manual) Monocytes % (Manual) Platelet Estimate Large Platelets Giant Platelets Polychromasia Hypochromasia (manual) Poikilocytosis (manual Anisocytosis (manual) Ovalocytes [place] Cells PT INR APTT pO2 VBG pH VBG pCO2 VBG HCO3 VBG Total CO2 VBG O2 Sat (Calc) VBG Base Excess VBG Potassium Glucose Lactate Sodium 137 Potassium 3.6 Chloride 100 Carbon Dioxide 27 Anion Gap 13 BUN 42 H Creatinine 1.7 H Est GFR ( Amer) 48 Est GFR (Non-Af Amer) 40 POC Glucose (mg/dL) 99 Random Glucose 75 Hemoglobin A1c Uric Acid Calcium 6.2 L Total Bilirubin 0.7 AST 59 D ALT 69 Alkaline Phosphatase 127 H Total Creatine Kinase < 20 L CK-MB (Mass) 0.84 Troponin I 0.2990 H* NT-Pro-B Natriuret Pep Total Protein 5.3 L Albumin 2.8 L D Globulin 2.5 Albumin/Globulin Ratio 1.1 Procalcitonin 4.79 H Free T4 TSH 3rd Generation Venous Blood Potassium Urine Color Urine Clarity Urine pH Ur Specific [place] Urine Protein Urine Glucose (UA) Urine Ketones Urine Blood Urine Nitrate Urine Bilirubin Urine Urobilinogen Ur Leukocyte Esterase Urine RBC (Auto) Stool Occult Blood B-Hydroxybutyrate 12/28/17 12/28/17 12/28/17 08:48 08:48 08:48 WBC RBC Hgb Hct MCV MCH MCHC RDW Plt Count MPV Neut % (Auto) Lymph % (Auto) [place] % (Auto) Eos % (Auto) Baso % (Auto) Neut # (Auto) Lymph # (Auto) [place] # (Auto) Eos # (Auto) Baso # (Auto) Neutrophils % (Manual) Band Neutrophils % Lymphocytes % (Manual) Monocytes % (Manual) Platelet Estimate Large Platelets Giant Platelets Polychromasia Hypochromasia (manual) Poikilocytosis (manual Anisocytosis (manual) Ovalocytes [place] Cells PT INR APTT pO2 VBG pH VBG pCO2 VBG HCO3 VBG Total CO2 VBG O2 Sat (Calc) VBG Base Excess VBG Potassium Glucose Lactate Sodium Potassium Chloride Carbon Dioxide Anion Gap BUN Creatinine Est GFR ( Amer) Est GFR (Non-Af Amer) POC Glucose (mg/dL) Random Glucose Hemoglobin A1c 6.7 H Uric Acid 4.0 Calcium Total Bilirubin AST ALT Alkaline Phosphatase Total Creatine Kinase CK-MB (Mass) 0.90 Troponin I 0.2110 H* NT-Pro-B Natriuret Pep Total Protein Albumin Globulin Albumin/Globulin Ratio Procalcitonin Free T4 1.80 TSH 3rd Generation 13.10 H Venous Blood Potassium Urine Color Urine Clarity Urine pH Ur Specific [place] Urine Protein Urine Glucose (UA) Urine Ketones Urine Blood Urine Nitrate Urine Bilirubin Urine Urobilinogen Ur Leukocyte Esterase Urine RBC (Auto) Stool Occult Blood B-Hydroxybutyrate 12/28/17 12/28/17 12/28/17 11:32 12:47 16:09 WBC RBC Hgb Hct MCV MCH MCHC RDW Plt Count MPV Neut % (Auto) Lymph % (Auto) [place] % (Auto) Eos % (Auto) Baso % (Auto) Neut # (Auto) Lymph # (Auto) [place] # (Auto) Eos # (Auto) Baso # (Auto) Neutrophils % (Manual) Band Neutrophils % Lymphocytes % (Manual) Monocytes % (Manual) Platelet Estimate Large Platelets Giant Platelets Polychromasia Hypochromasia (manual) Poikilocytosis (manual Anisocytosis (manual) Ovalocytes [place] Cells PT INR APTT pO2 VBG pH VBG pCO2 VBG HCO3 VBG Total CO2 VBG O2 Sat (Calc) VBG Base Excess VBG Potassium Glucose Lactate Sodium Potassium Chloride Carbon Dioxide Anion Gap BUN Creatinine Est GFR ( Amer) Est GFR (Non-Af Amer) POC Glucose (mg/dL) 148 H 132 H Random Glucose Hemoglobin A1c Uric Acid Calcium Total Bilirubin AST ALT Alkaline Phosphatase Total Creatine Kinase CK-MB (Mass) Troponin I NT-Pro-B Natriuret Pep Total Protein Albumin Globulin Albumin/Globulin Ratio Procalcitonin Free T4 TSH 3rd Generation Venous Blood Potassium Urine Color Urine Clarity Urine pH Ur Specific [place] Urine Protein Urine Glucose (UA) Urine Ketones Urine Blood Urine Nitrate Urine Bilirubin Urine Urobilinogen Ur Leukocyte Esterase Urine RBC (Auto) Stool Occult Blood Positive H B-Hydroxybutyrate Assessment & Plan (1) Atrial fibrillation with rapid ventricular response Status: Acute (2) Cardiomyopathy Status: Acute (3) Chronic kidney disease, stage III (moderate) Status: Acute (4) Gout Status: Acute (5) History of kidney transplant Status: Acute (6) Sepsis Status: Acute (7) Severe sepsis Status: Acute (8) Bronchiectasis with acute exacerbation Status: Acute (9) COPD bronchitis Status: Acute (10) Chest pain Status: Acute (11) Fever Status: Acute - Assessment and Plan (Free Text) Assessment: severe sepsis- r/o endocarditis, r/o pneumonia, r/o infected left knee / OM ? await cultures consider CT Chest abd / pelvis and Left knee arthrocentesis with special cultures for bacteria, AFB, fungus contuinue empiric IV antibiotics Plan: guarded prognosis
[2017-12-28] MEDS ORDERED: Oxycodone/Acetaminophen 5/325 mg Tab PO ONE (18:30)
[2017-12-28] MEDS: Linezolid 600 mg in D5W 300 ml 600 MG/300 ML BAG IVPB SCH (21:57)
--- NOTE | 2017-12-28 22:31 | CP.PCM.HP ---
History of Present Illness - History of Present Illness History of Present Illness: 72 year old man with past medical history signifcant for HCM (s/p BIV ICD), COPD , HTN, atrial fibrillation, gout, s/p renal transplant, presented with fever of 100.4 and chills at home. He denies any chest pain or shortness of breath, cough. Present on Admission - Present on Admission Any Indicators Present on Admission: No Review of Systems - Review of Systems Systems not reviewed;Unavailable: Unstable Vital Signs - Constitutional Constitutional: Chills - Cardiovascular Cardiovascular: Irregular Heart Rhythm - Respiratory Respiratory: Cough Past Patient History - Infectious Disease Hx of Infectious Diseases: None, C.diff - Tetanus Immunizations Tetanus Immunization: Unknown - Past Medical History & Family History Past Medical History?: Yes Past Family History: Reviewed and not pertinent - Past Social History Smoking Status: Never Smoked Chewing Tobacco Use: No Cigar Use: No Alcohol: None Drugs: Denies Home Situation {Lives}: With Family - CARDIAC Hx Cardiac Disorders: Yes (HCM (s/p BIV ICD)) Hx Atrial Fibrillation: Yes Hx Cardia Arrhythmia: Yes Hx Congestive Heart Failure: Yes Hx Hypercholesterolemia: Yes Hx Hypertension: Yes Hx Pacemaker: Yes (Patient has a ISSH with ventricular tachycardia and an ICD.) - PULMONARY Hx Respiratory Disorders: Yes Hx Asthma: Yes Hx Bronchitis: Yes Hx Chronic Obstructive Pulmonary Disease (COPD): Yes Hx Emphysema: Yes Hx Pneumonia: Yes - NEUROLOGICAL Hx Neurological Disorder: No - HEENT Hx HEENT Problems: Yes Hx Cataracts: Yes (bilat iol) - RENAL Hx Chronic Kidney Disease: Yes (s/p renal transplant) Other/Comment: Hx of Kidney transplant 2004 - ENDOCRINE/METABOLIC Hx Endocrine Disorders: Yes Hx Diabetes Mellitus Type 2: Yes Hx Hypothyroidism: Yes - HEMATOLOGICAL/ONCOLOGICAL Hx Blood Disorders: Yes Hx Anemia: Yes - INTEGUMENTARY Hx Dermatological Problems: Yes (sun sentivity) - MUSCULOSKELETAL/RHEUMATOLOGICAL Hx Musculoskeletal Disorders: Yes Hx Arthritis: Yes (Gout) Hx Falls: No Hx Gout: Yes - GASTROINTESTINAL Hx Gastrointestinal Disorders: Yes Hx Gastritis: Yes - GENITOURINARY/GYNECOLOGICAL Hx Genitourinary Disorders: No - PSYCHIATRIC Hx Psychophysiologic Disorder: No Hx Substance Use: No - SURGICAL HISTORY Hx Surgeries: Yes Hx Kidney Transplant: Yes () Other/Comment: THYROID SURGERY-2004. Hx of perforated bowel corrected with surgery. AICD - ANESTHESIA Hx Anesthesia: Yes Hx Anesthesia Reactions: No Hx Malignant Hyperthermia: No Has any member of the family had a problem w/ anesthesia?: No Meds Allergies/Adverse Reactions: Allergies Allergy/AdvReac Type Severity Reaction Status Date / Time metoprolol Allergy Intermediate ITCHING Verified 12/27/17 21:09 Physical Exam - Constitutional Appears: In Acute Distress - Head Exam Head Exam: NORMAL INSPECTION - Neck Exam Neck exam: Positive for: Normal Inspection - Respiratory Exam Respiratory Exam: Clear to Auscultation Bilateral, Rhonchi - Cardiovascular Exam Cardiovascular Exam: Systolic Murmur - GI/Abdominal Exam GI & Abdominal Exam: Normal Bowel Sounds - Extremities Exam Extremities exam: Positive for: normal inspection - Back Exam Back exam: NORMAL INSPECTION - Neurological Exam Neurological exam: Oriented x3 - Psychiatric Exam Psychiatric exam: Normal Affect, Normal Mood Results - Vital Signs Recent Vital Signs: Last Vital Signs Temp 97.2 F L 12/28/17 16:00 Pulse 109 H 12/28/17 19:30 Resp 11 L 12/28/17 19:30 BP 95/51 L 12/28/17 18:43 Pulse Ox 98 12/28/17 19:30 - Labs Result Diagrams: 12/28/17 05:56 12/28/17 05:56 Labs: Laboratory Results - last 24 hr 12/27/17 12/27/17 12/27/17 21:37 21:37 21:43 WBC RBC Hgb Hct MCV MCH MCHC RDW Plt Count MPV Neut % (Auto) Lymph % (Auto) Meade % (Auto) Eos % (Auto) Baso % (Auto) Neut # (Auto) Lymph # (Auto) Meade # (Auto) Eos # (Auto) Baso # (Auto) Neutrophils % (Manual) 80 H Band Neutrophils % 17 H* Lymphocytes % (Manual) 2 L Monocytes % (Manual) 1 Platelet Estimate Normal Large Platelets Giant Platelets Polychromasia Slight Hypochromasia (manual) Slight Poikilocytosis (manual Anisocytosis (manual) Slight Ovalocytes Slight Early Cells pO2 VBG pH VBG pCO2 VBG HCO3 VBG Total CO2 VBG O2 Sat (Calc) VBG Base Excess VBG Potassium Sodium Chloride Glucose Lactate Potassium Carbon Dioxide Anion Gap BUN Creatinine Est GFR ( Amer) Est GFR (Non-Af Amer) POC Glucose (mg/dL) Random Glucose Hemoglobin A1c Uric Acid Calcium Total Bilirubin AST ALT Alkaline Phosphatase Total Creatine Kinase CK-MB (Mass) Troponin I Total Protein Albumin Globulin Albumin/Globulin Ratio Procalcitonin Free T4 1.24 TSH 3rd Generation 20.40 H Venous Blood Potassium Stool Occult Blood B-Hydroxybutyrate 0.10 12/28/17 12/28/17 12/28/17 00:25 05:56 05:56 WBC 24.6 H RBC 3.06 L Hgb 8.5 L Hct 26.1 L MCV 85.4 MCH 27.7 MCHC 32.5 L RDW 17.0 H Plt Count 200 MPV 8.5 Neut % (Auto) 93.6 H Lymph % (Auto) 2.2 L Meade % (Auto) 3.5 Eos % (Auto) 0.4 Baso % (Auto) 0.3 Neut # (Auto) 23.0 H Lymph # (Auto) 0.5 L Meade # (Auto) 0.9 H Eos # (Auto) 0.1 Baso # (Auto) 0.1 Neutrophils % (Manual) 77 H Band Neutrophils % 18 H* Lymphocytes % (Manual) 1 L Monocytes % (Manual) 4 Platelet Estimate Normal Large Platelets Present Giant Platelets Present Polychromasia Hypochromasia (manual) Moderate Poikilocytosis (manual Slight Anisocytosis (manual) Slight Ovalocytes David Cells Slight pO2 48 VBG pH 7.47 H VBG pCO2 37 L VBG HCO3 27.1 VBG Total CO2 28.0 VBG O2 Sat (Calc) 85.6 H VBG Base Excess 3.2 H VBG Potassium 2.8 L Sodium 138.0 137 Chloride 103.0 100 Glucose 75 Lactate 1.8 Potassium 3.6 Carbon Dioxide 27 Anion Gap 13 BUN 42 H Creatinine 1.7 H Est GFR ( Amer) 48 Est GFR (Non-Af Amer) 40 POC Glucose (mg/dL) Random Glucose 75 Hemoglobin A1c Uric Acid Calcium 6.2 L Total Bilirubin 0.7 AST 59 D ALT 69 Alkaline Phosphatase 127 H Total Creatine Kinase < 20 L CK-MB (Mass) 0.84 Troponin I 0.2990 H* Total Protein 5.3 L Albumin 2.8 L D Globulin 2.5 Albumin/Globulin Ratio 1.1 Procalcitonin Free T4 TSH 3rd Generation Venous Blood Potassium 2.8 L Stool Occult Blood B-Hydroxybutyrate 12/28/17 12/28/17 12/28/17 05:56 07:12 08:48 WBC RBC Hgb Hct MCV MCH MCHC RDW Plt Count MPV Neut % (Auto) Lymph % (Auto) Meade % (Auto) Eos % (Auto) Baso % (Auto) Neut # (Auto) Lymph # (Auto) Meade # (Auto) Eos # (Auto) Baso # (Auto) Neutrophils % (Manual) Band Neutrophils % Lymphocytes % (Manual) Monocytes % (Manual) Platelet Estimate Large Platelets Giant Platelets Polychromasia Hypochromasia (manual) Poikilocytosis (manual Anisocytosis (manual) Ovalocytes David Cells pO2 VBG pH VBG pCO2 VBG HCO3 VBG Total CO2 VBG O2 Sat (Calc) VBG Base Excess VBG Potassium Sodium Chloride Glucose Lactate Potassium Carbon Dioxide Anion Gap BUN Creatinine Est GFR ( Amer) Est GFR (Non-Af Amer) POC Glucose (mg/dL) 99 Random Glucose Hemoglobin A1c Uric Acid 4.0 Calcium Total Bilirubin AST ALT Alkaline Phosphatase Total Creatine Kinase CK-MB (Mass) 0.90 Troponin I 0.2110 H* Total Protein Albumin Globulin Albumin/Globulin Ratio Procalcitonin 4.79 H Free T4 TSH 3rd Generation 13.10 H Venous Blood Potassium Stool Occult Blood B-Hydroxybutyrate 12/28/17 12/28/17 12/28/17 08:48 08:48 11:32 WBC RBC Hgb Hct MCV MCH MCHC RDW Plt Count MPV Neut % (Auto) Lymph % (Auto) Meade % (Auto) Eos % (Auto) Baso % (Auto) Neut # (Auto) Lymph # (Auto) Meade # (Auto) Eos # (Auto) Baso # (Auto) Neutrophils % (Manual) Band Neutrophils % Lymphocytes % (Manual) Monocytes % (Manual) Platelet Estimate Large Platelets Giant Platelets Polychromasia Hypochromasia (manual) Poikilocytosis (manual Anisocytosis (manual) Ovalocytes David Cells pO2 VBG pH VBG pCO2 VBG HCO3 VBG Total CO2 VBG O2 Sat (Calc) VBG Base Excess VBG Potassium Sodium Chloride Glucose Lactate Potassium Carbon Dioxide Anion Gap BUN Creatinine Est GFR ( Amer) Est GFR (Non-Af Amer) POC Glucose (mg/dL) 148 H Random Glucose Hemoglobin A1c 6.7 H Uric Acid Calcium Total Bilirubin AST ALT Alkaline Phosphatase Total Creatine Kinase CK-MB (Mass) Troponin I Total Protein Albumin Globulin Albumin/Globulin Ratio Procalcitonin Free T4 1.80 TSH 3rd Generation Venous Blood Potassium Stool Occult Blood B-Hydroxybutyrate 12/28/17 12/28/17 12:47 16:09 WBC RBC Hgb Hct MCV MCH MCHC RDW Plt Count MPV Neut % (Auto) Lymph % (Auto) Meade % (Auto) Eos % (Auto) Baso % (Auto) Neut # (Auto) Lymph # (Auto) Meade # (Auto) Eos # (Auto) Baso # (Auto) Neutrophils % (Manual) Band Neutrophils % Lymphocytes % (Manual) Monocytes % (Manual) Platelet Estimate Large Platelets Giant Platelets Polychromasia Hypochromasia (manual) Poikilocytosis (manual Anisocytosis (manual) Ovalocytes Early Cells pO2 VBG pH VBG pCO2 VBG HCO3 VBG Total CO2 VBG O2 Sat (Calc) VBG Base Excess VBG Potassium Sodium Chloride Glucose Lactate Potassium Carbon Dioxide Anion Gap BUN Creatinine Est GFR ( Amer) Est GFR (Non-Af Amer) POC Glucose (mg/dL) 132 H Random Glucose Hemoglobin A1c Uric Acid Calcium Total Bilirubin AST ALT Alkaline Phosphatase Total Creatine Kinase CK-MB (Mass) Troponin I Total Protein Albumin Globulin Albumin/Globulin Ratio Procalcitonin Free T4 TSH 3rd Generation Venous Blood Potassium Stool Occult Blood Positive H B-Hydroxybutyrate Assessment & Plan (1) Sepsis Assessment and Plan: 1. Sepsis: likely pneumonia. Cont Vanc and Zosyn. Follow up blood cultures. ID consult with Dr. Nash Status: Acute Decision To Admit - Pt Status Changed To: Hospital Disposition Of: Inpatient - Admit Certification Admit to Inpatient:: After my assessment, the patient will require hospitalization for at least two midnights. This is because of the severity of symptoms shown, intensity of services needed, and/or the medical risk in this patient being treated as an outpatient. - InPatient: Physician Admission Certification:: after my assessment, the patient requires inpatient admission for at least two midnights. - . Bed Request Type: ICU
--- NOTE | 2017-12-28 22:47 | CP.PCM.PN ---
Subjective - Date & Time of Evaluation Date of Evaluation: 12/28/17 Time of Evaluation: 09:00 - Subjective Subjective: patient feels better today and is in no acute distress Objective - Vital Signs/Intake and Output Vital Signs (last 24 hours): Temp Pulse Resp BP Pulse Ox 97.2 F L 109 H 11 L 95/51 L 98 12/28/17 16:00 12/28/17 19:30 12/28/17 19:30 12/28/17 18:43 12/28/17 19:30 Intake and Output: 12/28/17 12/29/17 18:59 06:59 Intake Total 3230 Output Total 1600 Balance 1630 - Medications Medications: Current Medications Acetaminophen (Tylenol 325mg Tab) 325 mg PO Q6 PRN PRN Reason: Fever >100.4 F Albuterol/Ipratropium (Duoneb 3 Mg/0.5 Mg (3 Ml) Ud) 3 ml INH RQ6 [facility] Last Admin: 12/28/17 20:01 Dose: 3 ml Colchicine (Colocrys) 0.6 mg PO DAILY [facility] Last Admin: 12/28/17 10:35 Dose: 0.6 mg Diltiazem HCl (Cardizem Cd) 240 mg PO DAILY [facility] Heparin Sodium (Porcine) (Heparin) 5,000 units SC Q12 [facility] Last Admin: 12/28/17 21:05 Dose: 5,000 units Piperacillin Sod/Tazobactam Sod (Zosyn 2.25 Gm Iv Premix) 2.25 gm in 50 mls @ 100 mls/hr IVPB Q6H [facility] PRN Reason: Protocol Last Admin: 12/28/17 17:30 Dose: 100 mls/hr Sodium Chloride (Sodium Chloride 0.9%) 1,000 mls @ 100 mls/hr IV .Q10H [facility] Last Admin: 12/28/17 21:05 Dose: 100 mls/hr Linezolid (Zyvox 600mg/300ml D5w) 600 mg in 300 mls @ 200 mls/hr IVPB Q12 [facility] PRN Reason: Protocol Last Admin: 12/28/17 21:57 Dose: 200 mls/hr Insulin Human Regular (Novolin R) 0 unit SC ACHS [facility] PRN Reason: Protocol Last Admin: 12/28/17 21:10 Dose: Not Given Levothyroxine Sodium (Synthroid) 150 mcg PO DAILY@0630 [facility] Last Admin: 12/28/17 06:21 Dose: 150 mcg Montelukast Sodium (Singulair) 10 mg PO DAILY [facility] Last Admin: 12/28/17 10:07 Dose: 10 mg Pantoprazole Sodium (Protonix Ec Tab) 40 mg PO DAILY [facility] Last Admin: 12/28/17 10:07 Dose: 40 mg Prednisone (Prednisone Tab) 20 mg PO DAILY [facility] Last Admin: 12/28/17 15:32 Dose: 20 mg Fluticasone/Salmeterol (Advair Diskus 250/50) 1 puff INH RQ12 [facility] Last Admin: 12/28/17 10:05 Dose: 1 puff Tacrolimus (Prograf Cap) 3 mg PO BID [facility] Last Admin: 12/28/17 17:30 Dose: 3 mg - Labs Labs: 12/28/17 05:56 12/28/17 05:56 PT 13.0 SECONDS (9.7-12.2) H 12/27/17 21:37 INR 1.2 12/27/17 21:37 APTT 30 SECONDS (21-34) 12/27/17 21:37 - Constitutional Appears: Non-toxic - Head Exam Head Exam: ATRAUMATIC, NORMAL INSPECTION - Eye Exam Eye Exam: Normal appearance - ENT Exam ENT Exam: Normal Exam - Respiratory Exam Respiratory Exam: Clear to Ausculation Bilateral, Rhonchi, NORMAL BREATHING PATTERN - Cardiovascular Exam Cardiovascular Exam: Irregular Rhythm - GI/Abdominal Exam GI & Abdominal Exam: Normal Bowel Sounds - Neurological Exam Neurological Exam: Alert, Awake, Oriented x3 - Psychiatric Exam Psychiatric exam: Normal Affect, Normal Mood Assessment and Plan (1) Sepsis Status: Acute (2) Severe sepsis Assessment & Plan: 1. Sepsis: with gram positive bacteremia. F/U with ID recommedations for antibiotics. Currently on Vanco and Zosyn. will obtain 2D echo to rule out endocarditis and seeding of ICD wires. Status: Acute
--- NOTE | 2017-12-28 23:03 | CARD ---
APPROVED REPORT EKG Measurement Heart [id number] <Conclusion> Chaotic atrial tachycardia with PVC's or aberrant beat Left axis deviation Left ventricular hypertrophy with repolarization abnormality Abnormal ECG
[2017-12-28] MEDS ORDERED: Vancomycin 1 gm/NS 200 ml 1 GM/200 ML BAG IVPB SCH (23:30)
[2017-12-29] MEDS: Albuterol-Ipratrop 3 mg / 0.5 (3 ml) UD INH SCH ×4 (01:27→20:15)
[2017-12-29] MEDS: Levothyroxine 150 MCG TAB PO SCH (06:27)
[2017-12-29] MEDS: Piperacill/Tazo 2.25gm in Dex 2.25 GM/50 ML BAG IVPB SCH ×3 (06:29→17:22)
[2017-12-29 06:30] LABS: BASO # 0.1 K/uL (0.0-0.2); BASO % 0.4 % (0.0-2.0); EOS % 0.2 % (0.0-4.0); HEMOGLOBIN 8.2 g/dL (12.0-18.0); LYMPH # 0.1 K/uL (1.0-4.3); LYMPH % 0.8 % (20.0-40.0); MEAN CELL VOLUME 85.8 fL (80.0-94.0); MEAN CORPUSCULAR HEMOGLOBIN 27.7 pg (27.0-31.0); MEAN CORPUSCULAR HGB CONC 32.3 g/dL (33.0-37.0); MEAN PLATELET VOLUME 8.8 fL (7.2-11.7); MONO # 0.2 K/uL (0.0-0.8); MONO % 1.3 % (0.0-10.0); NEUT # 13.9 K/uL (1.8-7.0); NEUT % 97.3 % (50.0-75.0); PLATELET COUNT 182 K/uL (130-400); RBC 2.95 Mil/uL (4.40-5.90); RED CELL DISTRIBUTION WIDTH 17.2 % (11.5-14.5); WHITE BLOOD COUNT 14.3 K/uL (4.8-10.8)
[2017-12-29] MEDS: Sodium Chloride 0.9% 1,000 ML IV SCH (06:31)
[2017-12-29 06:53] LABS: ALBUMIN 2.7 g/dL (3.5-5.0); ALT/SGPT 57 U/L (21-72); AST/SGOT 23 U/L (17-59); BLOOD UREA NITROGEN 26 mg/dL (9-20); CALCIUM 5.8 mg/dl (8.6-10.4); GFR AFRICAN-AMERICAN > 60; GFR NON-AFRICAN AMERICAN 50
[2017-12-29] MEDS: Fluticasone-Salmeterol 250-50mcg Diskus INH SCH ×2 (07:48→20:16)
[2017-12-29] MEDS ORDERED: Calcium Gluconate 4.65 mEq/10 ml Inj IVP ONE (07:52)
[2017-12-29] MEDS: Magnesium Sulfate 1 gm in D5W 1 GM/100 ML BAG IVPB SCH ×2 (08:04→08:29)
[2017-12-29] MEDS: (Novolin R) Insulin Human Regular 100 units/ml vial SC SCH ×4 (08:09→22:00)
[2017-12-29] MEDS: Linezolid 600 mg in D5W 300 ml 600 MG/300 ML BAG IVPB SCH ×2 (09:08→22:10)
[2017-12-29] MEDS: Pantoprazole 40 mg EC Tab PO SCH (09:09)
--- NOTE | 2017-12-29 09:13 | CP.PCM.PN ---
Subjective - Date & Time of Evaluation Date of Evaluation: 12/29/17 Time of Evaluation: 09:11 - Subjective Subjective: feels much better today- afebrile +GPC bacteremia noted- on IV vanco renal function improved has low Ca, mag- needs repletion await FK level has stool with +OB; has been on eliquis for AFib no n, v, diarrhea, chills; has SPICER Objective - Vital Signs/Intake and Output Vital Signs (last 24 hours): Temp Pulse Resp BP Pulse Ox 98.3 F 117 H 18 118/68 100 12/29/17 08:00 12/29/17 09:00 12/29/17 09:00 12/29/17 09:00 12/29/17 09:00 Intake and Output: 12/29/17 12/29/17 06:59 18:59 Intake Total 1400 200 Output Total 925 150 Balance 475 50 - Medications Medications: Current Medications Acetaminophen (Tylenol 325mg Tab) 325 mg PO Q6 PRN PRN Reason: Fever >100.4 F Albuterol/Ipratropium (Duoneb 3 Mg/0.5 Mg (3 Ml) Ud) 3 ml INH RQ6 [facility] Last Admin: 12/29/17 07:48 Dose: 3 ml Colchicine (Colocrys) 0.6 mg PO DAILY [facility] Last Admin: 12/28/17 10:35 Dose: 0.6 mg Diltiazem HCl (Cardizem Cd) 240 mg PO DAILY [facility] Heparin Sodium (Porcine) (Heparin) 5,000 units SC Q12 [facility] Last Admin: 12/29/17 09:09 Dose: 5,000 units Piperacillin Sod/Tazobactam Sod (Zosyn 2.25 Gm Iv Premix) 2.25 gm in 50 mls @ 100 mls/hr IVPB Q6H [facility] PRN Reason: Protocol Last Admin: 12/29/17 06:29 Dose: 100 mls/hr Sodium Chloride (Sodium Chloride 0.9%) 1,000 mls @ 100 mls/hr IV .Q10H [facility] Last Admin: 12/29/17 06:31 Dose: Not Given Linezolid (Zyvox 600mg/300ml D5w) 600 mg in 300 mls @ 200 mls/hr IVPB Q12 [facility] PRN Reason: Protocol Last Admin: 12/29/17 09:08 Dose: 200 mls/hr Insulin Human Regular (Novolin R) 0 unit SC ACHS [facility] PRN Reason: Protocol Last Admin: 12/29/17 08:09 Dose: 2 units Levothyroxine Sodium (Synthroid) 150 mcg PO DAILY@0630 [facility] Last Admin: 12/29/17 06:27 Dose: 150 mcg Montelukast Sodium (Singulair) 10 mg PO DAILY [facility] Last Admin: 12/29/17 09:09 Dose: 10 mg Pantoprazole Sodium (Protonix Ec Tab) 40 mg PO DAILY [facility] Last Admin: 12/29/17 09:09 Dose: 40 mg Prednisone (Prednisone Tab) 20 mg PO DAILY [facility] Last Admin: 12/28/17 15:32 Dose: 20 mg Fluticasone/Salmeterol (Advair Diskus 250/50) 1 puff INH RQ12 [facility] Last Admin: 12/29/17 07:48 Dose: 1 puff Tacrolimus (Prograf Cap) 3 mg PO BID [facility] Last Admin: 12/28/17 17:30 Dose: 3 mg - Labs Labs: 12/29/17 06:21 12/29/17 06:14 PT 13.0 SECONDS (9.7-12.2) H 12/27/17 21:37 INR 1.2 12/27/17 21:37 APTT 30 SECONDS (21-34) 12/27/17 21:37 - Constitutional Appears: In Acute Distress, Chronically Ill - Head Exam Head Exam: ATRAUMATIC, NORMAL INSPECTION - Eye Exam Eye Exam: EOMI, Normal appearance - Neck Exam Neck Exam: Normal Inspection. absent: Tenderness - Respiratory Exam Respiratory Exam: Rhonchi, NORMAL BREATHING PATTERN - Cardiovascular Exam Cardiovascular Exam: Tachycardia, Irregular Rhythm, +S1 - GI/Abdominal Exam GI & Abdominal Exam: Soft. absent: Tenderness - Extremities Exam Extremities Exam: Normal Inspection, Tenderness - Neurological Exam Neurological Exam: Awake, CN II-XII Intact - Skin Skin Exam: Dry, Warm Assessment and Plan (1) Chronic kidney disease, stage III (moderate) Status: Acute (2) History of kidney transplant Status: Acute (3) Cardiomyopathy Status: Acute (4) Sepsis Status: Acute (5) Gout Status: Acute (6) Atrial fibrillation with rapid ventricular response Status: Acute - Assessment and Plan (Free Text) Plan: IV ABs as per ID replete mag, ca consider GI eval for low Hg, stools +OB source of GPC unclear- check another echo - FERNANDO had been done recently eventually taper prednisone to 5mg daily
[2017-12-29] MEDS: diltiaZEM 240 mg/24 Hours CD Cap PO SCH (09:22)
[2017-12-29 09:28] LABS: BANDS 7 % (0-2); NEUTROPHIL 91 % (50-75); TOTAL CELLS COUNTED 100
[2017-12-29 09:29] LABS: ANISOCYTOSIS SLIGHT; LYMPHOCYTE 1 % (20-40); MONOCYTE 1 % (0-10); PLATELET ESTIMATE NORMAL (NORMAL)
[2017-12-29 09:30] LABS: HYPOCHROMIC SLIGHT
--- NOTE | 2017-12-29 11:15 | CARD ---
APPROVED REPORT EXAM: Two-dimensional and M-mode echocardiogram with Doppler and color Doppler. Other Information Quality : GoodRhythm : INDICATION Infection:Rule out subacute bacterial endocarditis 2D DIMENSIONS IVSd2.5 (0.7-1.1cm)LVDd3.5 (3.9-5.9cm) PWd1.5 (0.7-1.1cm)LVDs2.6 (2.5-4.0cm) FS (%) 26.6 %LVEF (%)55.0 (>50%) M-Mode DIMENSIONS RVDd1.62 (2.1-3.2cm)Left Atrium (MM)4.23 (2.5-4.0cm) IVSd1.30 (0.7-1.1cm)Aortic Root3.49 (2.2-3.7cm) LVDd5.44 (4.0-5.6cm)Aortic Cusp Exc.1.57 (1.5-2.0cm) PWd1.40 (0.7-1.1cm)FS (%) 33 % LVDs3.67 (2.0-3.8cm)LVEF (%)60 (>50%) Mitral Valve MV E Bdmustab76.6cm/sMV A Kqyekens219.6cm/sE/A ratio0.7 TDI E/Lateral E'0.0E/Medial E'0.0 Tricuspid Valve TR Peak Lgtthlae990ks/sTR Peak Gr.[id number] LEFT VENTRICLE There is mild concentric left ventricular hypertrophy. Left ventricle systolic function is normal. The Ejection Fraction is55-60%. There is normal LV segmental wall motion. The left ventricular diastolic function is abnormal- Grade I-abnormal relaxation pattern. No left ventricle thrombus noted on this study. RIGHT VENTRICLE The right ventricle is normal size. The right ventricular systolic function is normal. There is a catheter in the right ventricle. ATRIA The left atrium is mildly dilated. The right atrium size is mildly dilated. AORTIC VALVE The aortic valve is mildly to moderately calcified. The aortic valve is probably trileaflet. There is trace to mild aortic regurgitation. There is no aortic valvular stenosis. Cannot exclude aortic valvular vegetation. MITRAL VALVE Mitral annular calcification is mild to moderate. There is no evidence of mitral valve prolapse. There is no mitral valve stenosis. Mitral regurgitation is mild. TRICUSPID VALVE The tricuspid valve is normal in structure. There is mild to moderate tricuspid regurgitation. Right ventricular systolic pressure is estimated at 30-40 mmHg. There is mild pulmonary hypertension. There is no tricuspid valve prolapse or vegetation. There is no tricuspid valve stenosis. PULMONIC VALVE The pulmonary valve is normal in structure. There is mild pulmonic valvular regurgitation. There is no pulmonic valvular stenosis. GREAT VESSELS The aortic root is normal in size. The IVC is normal in size and collapses >50% with inspiration. PERICARDIAL EFFUSION There is a small circumferential pericardial effusion. There is no pleural effusion. <Conclusion> There is mild concentric left ventricular hypertrophy. Left ventricle systolic function is normal. The Ejection Fraction is55-60%. The left ventricular diastolic function is abnormal- Grade I-abnormal relaxation pattern. The right ventricle is normal size. The right ventricular systolic function is normal. The left atrium is mildly dilated. The right atrium size is mildly dilated. There is trace to mild aortic regurgitation. Mitral regurgitation is mild. There is mild tricuspid regurgitation. There is mild pulmonary hypertension. There is mild pulmonic valvular regurgitation.
--- NOTE | 2017-12-29 13:41 | RAD ---
PROCEDURE: Left Knee Radiographs. HISTORY: Pain. COMPARISON: None. FINDINGS: BONES: No acute fracture. JOINTS: Mild tricompartmental narrowing. JOINT EFFUSION: Moderate suprapatellar joint effusion. OTHER FINDINGS: None. IMPRESSION: Joint effusion without demonstrated fracture or dislocation. Degenerative changes.
--- NOTE | 2017-12-29 15:45 | CARD ---
APPROVED REPORT EKG Measurement Heart [id number] <Conclusion> Atrial-paced rhythm with occasional sinus complexes Left axis deviation T wave abnormality, consider lateral ischemia Abnormal ECG
--- NOTE | 2017-12-29 17:23 | CP.PCM.PN ---
Subjective - Date & Time of Evaluation Date of Evaluation: 12/29/17 Time of Evaluation: 17:19 - Subjective Subjective: Patient is sitting in a cardiac chair in ICU, with no complaint of SOB, chills. Appetite is good. Afebrile. Telemetry reveals an atrial fibrillation with a VR 106 bpm. Blood culture is positive for a Staph Aureus coagulase negative. Solls for OB was positive. Patient had an EGD and a colonoscopy a few weeks ago at [facility] which revealed gastritis and inflammation of the colonic anastomosis and hemorrhoids. Objective - Vital Signs/Intake and Output Vital Signs (last 24 hours): Temp Pulse Resp BP Pulse Ox 98.1 F 97 H 22 128/64 100 12/29/17 16:00 12/29/17 16:00 12/29/17 16:00 12/29/17 16:00 12/29/17 16:00 Intake and Output: 12/29/17 12/29/17 06:59 18:59 Intake Total 1400 1050 Output Total 925 600 Balance 475 450 - Medications Medications: Current Medications Acetaminophen (Tylenol 325mg Tab) 325 mg PO Q6 PRN PRN Reason: Fever >100.4 F Albuterol/Ipratropium (Duoneb 3 Mg/0.5 Mg (3 Ml) Ud) 3 ml INH RQ6 [facility] Last Admin: 12/29/17 13:36 Dose: 3 ml Calcium Carbonate (Oscal) 500 mg PO TID [facility] Last Admin: 12/29/17 14:22 Dose: 500 mg Colchicine (Colocrys) 0.6 mg PO DAILY [facility] Last Admin: 12/29/17 09:22 Dose: 0.6 mg Diltiazem HCl (Cardizem Cd) 240 mg PO DAILY [facility] Last Admin: 12/29/17 09:22 Dose: 240 mg Heparin Sodium (Porcine) (Heparin) 5,000 units SC Q12 [facility] Last Admin: 12/29/17 09:09 Dose: 5,000 units Piperacillin Sod/Tazobactam Sod (Zosyn 2.25 Gm Iv Premix) 2.25 gm in 50 mls @ 100 mls/hr IVPB Q6H [facility] PRN Reason: Protocol Last Admin: 12/29/17 11:16 Dose: 100 mls/hr Linezolid (Zyvox 600mg/300ml D5w) 600 mg in 300 mls @ 200 mls/hr IVPB Q12 [facility] PRN Reason: Protocol Last Admin: 12/29/17 09:08 Dose: 200 mls/hr Insulin Human Regular (Novolin R) 0 unit SC ACHS [facility] PRN Reason: Protocol Last Admin: 12/29/17 16:35 Dose: 4 units Levothyroxine Sodium (Synthroid) 150 mcg PO DAILY@0630 [facility] Last Admin: 12/29/17 06:27 Dose: 150 mcg Montelukast Sodium (Singulair) 10 mg PO DAILY [facility] Last Admin: 12/29/17 09:09 Dose: 10 mg Pantoprazole Sodium (Protonix Ec Tab) 40 mg PO DAILY [facility] Last Admin: 12/29/17 09:09 Dose: 40 mg Prednisone (Prednisone Tab) 20 mg PO DAILY [facility] Last Admin: 12/29/17 09:22 Dose: 20 mg Fluticasone/Salmeterol (Advair Diskus 250/50) 1 puff INH RQ12 [facility] Last Admin: 12/29/17 07:48 Dose: 1 puff Tacrolimus (Prograf Cap) 3 mg PO BID [facility] Last Admin: 12/29/17 09:23 Dose: 3 mg - Labs Labs: 12/29/17 06:21 12/29/17 06:14 PT 13.0 SECONDS (9.7-12.2) H 12/27/17 21:37 INR 1.2 12/27/17 21:37 APTT 30 SECONDS (21-34) 12/27/17 21:37 - Constitutional Appears: No Acute Distress, Chronically Ill - Head Exam Head Exam: NORMAL INSPECTION - Eye Exam Eye Exam: Normal appearance - ENT Exam ENT Exam: Normal Exam - Neck Exam Neck Exam: Normal Inspection - Respiratory Exam Additional comments: Few rhonchi at both bases. - Cardiovascular Exam Cardiovascular Exam: Irregular Rhythm, Murmur - GI/Abdominal Exam GI & Abdominal Exam: Soft, Normal Bowel Sounds - Extremities Exam Extremities Exam: Normal Inspection - Back Exam Back Exam: NORMAL INSPECTION - Neurological Exam Neurological Exam: Alert, Awake, Oriented x3 - Psychiatric Exam Psychiatric exam: Anxious - Skin Skin Exam: Dry, Intact, Normal Color Assessment and Plan (1) Sepsis Status: Acute (2) Severe sepsis Assessment & Plan: IV antibiotics as per DR Nash. Status: Acute - Assessment and Plan (Free Text) Assessment: To continue Diltiazem. and Eliquis.
--- NOTE | 2017-12-29 18:18 | CP.PCM.PN ---
Subjective - Date & Time of Evaluation Date of Evaluation: 12/29/17 Time of Evaluation: 09:00 - Subjective Subjective: seen on rounds afebrile alert OOB denies chest pain or SOB appears weak and ill Objective - Vital Signs/Intake and Output Vital Signs (last 24 hours): Temp Pulse Resp BP Pulse Ox 98.1 F 102 H 18 130/67 100 12/29/17 16:00 12/29/17 17:00 12/29/17 17:00 12/29/17 17:00 12/29/17 17:00 Intake and Output: 12/29/17 12/29/17 06:59 18:59 Intake Total 1400 1050 Output Total 925 600 Balance 475 450 - Medications Medications: Current Medications Acetaminophen (Tylenol 325mg Tab) 325 mg PO Q6 PRN PRN Reason: Fever >100.4 F Albuterol/Ipratropium (Duoneb 3 Mg/0.5 Mg (3 Ml) Ud) 3 ml INH RQ6 [facility] Last Admin: 12/29/17 13:36 Dose: 3 ml Calcium Carbonate (Oscal) 500 mg PO TID [facility] Last Admin: 12/29/17 17:22 Dose: 500 mg Colchicine (Colocrys) 0.6 mg PO DAILY [facility] Last Admin: 12/29/17 09:22 Dose: 0.6 mg Diltiazem HCl (Cardizem Cd) 240 mg PO DAILY [facility] Last Admin: 12/29/17 09:22 Dose: 240 mg Heparin Sodium (Porcine) (Heparin) 5,000 units SC Q12 [facility] Last Admin: 12/29/17 09:09 Dose: 5,000 units Piperacillin Sod/Tazobactam Sod (Zosyn 2.25 Gm Iv Premix) 2.25 gm in 50 mls @ 100 mls/hr IVPB Q6H [facility] PRN Reason: Protocol Last Admin: 12/29/17 17:22 Dose: 100 mls/hr Linezolid (Zyvox 600mg/300ml D5w) 600 mg in 300 mls @ 200 mls/hr IVPB Q12 [facility] PRN Reason: Protocol Last Admin: 12/29/17 09:08 Dose: 200 mls/hr Insulin Human Regular (Novolin R) 0 unit SC ACHS [facility] PRN Reason: Protocol Last Admin: 12/29/17 16:35 Dose: 4 units Levothyroxine Sodium (Synthroid) 150 mcg PO DAILY@0630 [facility] Last Admin: 12/29/17 06:27 Dose: 150 mcg Montelukast Sodium (Singulair) 10 mg PO DAILY [facility] Last Admin: 12/29/17 09:09 Dose: 10 mg Pantoprazole Sodium (Protonix Ec Tab) 40 mg PO DAILY [facility] Last Admin: 12/29/17 09:09 Dose: 40 mg Prednisone (Prednisone Tab) 20 mg PO DAILY [facility] Last Admin: 12/29/17 09:22 Dose: 20 mg Fluticasone/Salmeterol (Advair Diskus 250/50) 1 puff INH RQ12 [facility] Last Admin: 12/29/17 07:48 Dose: 1 puff Tacrolimus (Prograf Cap) 3 mg PO BID [facility] Last Admin: 12/29/17 17:21 Dose: 3 mg - Labs Labs: 12/29/17 06:21 12/29/17 06:14 PT 13.0 SECONDS (9.7-12.2) H 12/27/17 21:37 INR 1.2 12/27/17 21:37 APTT 30 SECONDS (21-34) 12/27/17 21:37 - Constitutional Appears: Non-toxic, Chronically Ill - Head Exam Head Exam: NORMOCEPHALIC - Eye Exam Eye Exam: absent: Scleral icterus - ENT Exam ENT Exam: Mucous Membranes Dry - Neck Exam Neck Exam: absent: Lymphadenopathy - Respiratory Exam Respiratory Exam: Decreased Breath Sounds, Clear to Ausculation Bilateral - Cardiovascular Exam Cardiovascular Exam: REGULAR RHYTHM, +S1, +S2 - GI/Abdominal Exam GI & Abdominal Exam: Distended, Soft. absent: Tenderness - Rectal Exam Rectal Exam: Deferred - Exam Exam: NORMAL INSPECTION - Extremities Exam Extremities Exam: absent: Pedal Edema - Back Exam Back Exam: absent: CVA tenderness (L), CVA tenderness (R) - Neurological Exam Neurological Exam: Alert, Awake, CN II-XII Intact, Oriented x3 Neuro motor strength exam: Left Upper Extremity: 3, Right Upper Extremity: 3, Left Lower Extremity: 3, Right Lower Extremity: 3 - Psychiatric Exam Psychiatric exam: Normal Mood - Skin Skin Exam: Dry Assessment and Plan (1) Atrial fibrillation with rapid ventricular response Status: Acute (2) Cardiomyopathy Status: Acute (3) Chronic kidney disease, stage III (moderate) Status: Acute (4) Gout Status: Acute (5) History of kidney transplant Status: Acute (6) Sepsis Status: Acute (7) Severe sepsis Status: Acute (8) Bronchiectasis with acute exacerbation Status: Acute (9) COPD bronchitis Status: Acute (10) Chest pain Status: Acute (11) Fever Status: Acute - Assessment and Plan (Free Text) Assessment: severe sepsis- positive blood cultures 1/2 sets r/o endocarditis, r/o pneumonia, r/o infected left knee / OM ? await cultures consider CT Chest abd / pelvis consider FERNANDO consider bone scan left knee to r/o OM consider Left knee arthrocentesis with special cultures for bacteria, AFB, fungus
--- NOTE | 2017-12-29 20:06 | CP.CCUPN ---
<Nuvia Cheng - Last Filed: 12/29/17 20:03> CCU Subjective - Physician Review Subjective (Free Text): Patient seen and examined at bedside. No acute complaints. CCU Objective - Vital Signs / Intake & Output Vital Signs (Last 4 hours): Vital Signs Pulse Resp BP Pulse Ox 12/29/17 19:00 99 H 19 132/69 99 12/29/17 18:00 101 H 18 124/61 100 12/29/17 17:00 102 H 18 130/67 100 Intake and Output (Last 8hrs): Intake & Output 12/29/17 12/29/17 12/29/17 06:59 14:59 22:59 Intake Total 750 1050 250 Output Total 725 450 300 Balance 25 600 -50 Intake: Intake, IV Amount 750 550 50 Right Forearm 750 550 50 Oral 500 200 Output: Urine 725 450 300 Urine, Voided 725 450 300 Other: # Bowel Movements 0 0 0 - Physical Exam Head: Positive for: Atraumatic, Normocephalic Pupils: Positive for: PERRL Extroacular Muscles: Positive for: EOMI Conjunctiva: Positive for: Normal Mouth: Positive for: Moist Mucous Membranes, Dry Neck: Positive for: Normal Range of Motion Respiratory/Chest: Positive for: Decreased Breath Sounds Cardiovascular: Positive for: Tachycardic Abdomen: Positive for: Normal Bowel Sounds. Negative for: Tenderness, Distention Upper Extremity: Positive for: Normal Inspection, NORMAL PULSES, Neurovascularly Intact, Capillary Refill < 2s Lower Extremity: Positive for: Normal Inspection, NORMAL PULSES, Neurovascularly Intact, Capillary Refill < 2 s, Other (left knee warm to touch, swollen) Neurological: Positive for: GCS=15, CN II-XII Intact Skin: Positive for: Warm, Dry, Normal Color Psychiatric: Positive for: Alert, Oriented x 3, Normal Insight, Normal Concentration - Medications Active Medications: Active Medications Generic Name Dose Route Start Last Admin Trade Name Freq PRN Reason Stop Dose Admin Acetaminophen 325 mg 12/27/17 23:38 Tylenol 325mg Tab PO Q6 PRN Fever >100.4 F Albuterol/Ipratropium 3 ml 12/28/17 16:00 12/29/17 13:36 Duoneb 3 Mg/0.5 Mg (3 Ml) Ud INH 3 ml RQ6 FAHEEM Administration Calcium Carbonate 500 mg 12/29/17 10:00 12/29/17 17:22 Oscal PO 500 mg TID FAHEEM Administration Colchicine 0.6 mg 12/28/17 10:00 12/29/17 09:22 Colocrys PO 0.6 mg DAILY [facility]EM Administration Diltiazem HCl 240 mg 12/29/17 10:00 12/29/17 09:22 Cardizem Cd PO 240 mg DAILY [facility] Administration Heparin Sodium (Porcine) 5,000 units 12/28/17 10:00 12/29/17 09:09 Heparin SC 5,000 units Q12 [facility]EM Administration Piperacillin Sod/Tazobactam Sod 2.25 gm in 50 mls @ 100 mls/hr 12/27/17 23:45 12/29/17 17:22 Zosyn 2.25 Gm Iv Premix IVPB 100 mls/hr Q6H [facility]EM Administration Protocol Linezolid 600 mg in 300 mls @ 200 mls/hr 12/28/17 22:00 12/29/17 09:08 Zyvox 600mg/300ml D5w IVPB 200 mls/hr Q12 [facility] Administration Protocol Insulin Human Regular 0 unit 12/28/17 16:30 12/29/17 16:35 Novolin R SC 4 units ACHS [facility] Administration Protocol Levothyroxine Sodium 150 mcg 12/28/17 06:30 12/29/17 06:27 Synthroid PO 150 mcg DAILY@0630 [facility] Administration Montelukast Sodium 10 mg 12/28/17 10:00 12/29/17 09:09 Singulair PO 10 mg DAILY [facility] Administration Pantoprazole Sodium 40 mg 12/28/17 10:00 12/29/17 09:09 Protonix Ec Tab PO 40 mg DAILY [facility] Administration Prednisone 20 mg 12/28/17 13:30 12/29/17 09:22 Prednisone Tab PO 20 mg DAILY [facility] Administration Fluticasone/Salmeterol 1 puff 12/28/17 10:00 12/29/17 07:48 Advair Diskus 250/50 INH 1 puff RQ12 [facility] Administration Tacrolimus 3 mg 12/28/17 10:59 12/29/17 17:21 Prograf Cap PO 3 mg BID [facility]EM Administration - Patient Studies Lab Studies: Microbiology Studies 12/28/17 05:58 MRSA Culture (Admit) - Final Nose MRSA NOT DETECTED 12/27/17 22:04 Gram Stain - Final Blood 12/27/17 22:04 Gram Stain - Final Blood 12/28/17 05:58 Blood Culture - Preliminary Blood-Venous Gram Positive Cocci Gram Stain - Final 12/28/17 05:58 Blood Culture - Preliminary Blood-Venous NO GROWTH AFTER 24 HOURS Lab Studies 12/29/17 12/29/17 12/29/17 Range/Units 11:05 07:20 06:21 WBC 14.3 H (4.8-10.8) K/uL RBC 2.95 L (4.40-5.90) Mil/uL Hgb 8.2 L (12.0-18.0) g/dL Hct 25.3 L (35.0-51.0) % MCV 85.8 (80.0-94.0) fL MCH 27.7 (27.0-31.0) pg MCHC 32.3 L (33.0-37.0) g/dL RDW 17.2 H (11.5-14.5) % Plt Count 182 (130-400) K/uL MPV 8.8 (7.2-11.7) fL Neut % (Auto) 97.3 H (50.0-75.0) % Lymph % (Auto) 0.8 L (20.0-40.0) % [place] % (Auto) 1.3 (0.0-10.0) % Eos % (Auto) 0.2 (0.0-4.0) % Baso % (Auto) 0.4 (0.0-2.0) % Neut # (Auto) 13.9 H (1.8-7.0) K/uL Lymph # (Auto) 0.1 L (1.0-4.3) K/uL [place] # (Auto) 0.2 (0.0-0.8) K/uL Eos # (Auto) 0.0 (0.0-0.7) K/uL Baso # (Auto) 0.1 (0.0-0.2) K/uL Neutrophils % (Manual) 91 H (50-75) % Band Neutrophils % 7 H (0-2) % Lymphocytes % (Manual) 1 L (20-40) % Monocytes % (Manual) 1 (0-10) % Platelet Estimate Normal (NORMAL) Hypochromasia (manual) Slight Anisocytosis (manual) Slight Sodium (132-148) mmol/L Potassium (3.6-5.2) mmol/L Chloride (98-107) mmol/L Carbon Dioxide (22-30) mmol/L Anion Gap (10-20) BUN (9-20) mg/dL Creatinine (0.8-1.5) mg/dL Est GFR ( Amer) Est GFR (Non-Af Amer) POC Glucose (mg/dL) 275 H 236 H (65-110) mg/dL Random Glucose (75-110) mg/dL Calcium (8.6-10.4) mg/dl Phosphorus (2.5-4.5) mg/dL Magnesium (1.6-2.3) mg/dL Total Bilirubin (0.2-1.3) mg/dL AST (17-59) U/L ALT (21-72) U/L Alkaline Phosphatase (38-126) U/L Total Protein (6.3-8.3) g/dL Albumin (3.5-5.0) g/dL Globulin (2.2-3.9) gm/dL Albumin/Globulin Ratio (1.0-2.1) 12/29/17 12/28/17 Range/Units 06:14 21:08 WBC (4.8-10.8) K/uL RBC (4.40-5.90) Mil/uL Hgb (12.0-18.0) g/dL Hct (35.0-51.0) % MCV (80.0-94.0) fL MCH (27.0-31.0) pg MCHC (33.0-37.0) g/dL RDW (11.5-14.5) % Plt Count (130-400) K/uL MPV (7.2-11.7) fL Neut % (Auto) (50.0-75.0) % Lymph % (Auto) (20.0-40.0) % [place] % (Auto) (0.0-10.0) % Eos % (Auto) (0.0-4.0) % Baso % (Auto) (0.0-2.0) % Neut # (Auto) (1.8-7.0) K/uL Lymph # (Auto) (1.0-4.3) K/uL [place] # (Auto) (0.0-0.8) K/uL Eos # (Auto) (0.0-0.7) K/uL Baso # (Auto) (0.0-0.2) K/uL Neutrophils % (Manual) (50-75) % Band Neutrophils % (0-2) % Lymphocytes % (Manual) (20-40) % Monocytes % (Manual) (0-10) % Platelet Estimate (NORMAL) Hypochromasia (manual) Anisocytosis (manual) Sodium 136 (132-148) mmol/L Potassium 3.8 (3.6-5.2) mmol/L Chloride 103 (98-107) mmol/L Carbon Dioxide 21 L (22-30) mmol/L Anion Gap 16 (10-20) BUN 26 H (9-20) mg/dL Creatinine 1.4 (0.8-1.5) mg/dL Est GFR ( Amer) > 60 Est GFR (Non-Af Amer) 50 POC Glucose (mg/dL) 206 H (65-110) mg/dL Random Glucose 272 H (75-110) mg/dL Calcium 5.8 L* (8.6-10.4) mg/dl Phosphorus 3.5 (2.5-4.5) mg/dL Magnesium 1.2 L (1.6-2.3) mg/dL Total Bilirubin 0.5 (0.2-1.3) mg/dL AST 23 (17-59) U/L ALT 57 (21-72) U/L Alkaline Phosphatase 114 (38-126) U/L Total Protein 5.3 L (6.3-8.3) g/dL Albumin 2.7 L (3.5-5.0) g/dL Globulin 2.6 (2.2-3.9) gm/dL Albumin/Globulin Ratio 1.0 (1.0-2.1) Laboratory Results - last 24 hr 12/28/17 12/29/17 12/29/17 21:08 06:14 06:21 WBC 14.3 H RBC 2.95 L Hgb 8.2 L Hct 25.3 L MCV 85.8 MCH 27.7 MCHC 32.3 L RDW 17.2 H Plt Count 182 MPV 8.8 Neut % (Auto) 97.3 H Lymph % (Auto) 0.8 L [place] % (Auto) 1.3 Eos % (Auto) 0.2 Baso % (Auto) 0.4 Neut # (Auto) 13.9 H Lymph # (Auto) 0.1 L [place] # (Auto) 0.2 Eos # (Auto) 0.0 Baso # (Auto) 0.1 Neutrophils % (Manual) 91 H Band Neutrophils % 7 H Lymphocytes % (Manual) 1 L Monocytes % (Manual) 1 Platelet Estimate Normal Hypochromasia (manual) Slight Anisocytosis (manual) Slight Sodium 136 Potassium 3.8 Chloride 103 Carbon Dioxide 21 L Anion Gap 16 BUN 26 H Creatinine 1.4 Est GFR ( Amer) > 60 Est GFR (Non-Af Amer) 50 POC Glucose (mg/dL) 206 H Random Glucose 272 H Calcium 5.8 L* Phosphorus 3.5 Magnesium 1.2 L Total Bilirubin 0.5 AST 23 ALT 57 Alkaline Phosphatase 114 Total Protein 5.3 L Albumin 2.7 L Globulin 2.6 Albumin/Globulin Ratio 1.0 12/29/17 12/29/17 07:20 11:05 WBC RBC Hgb Hct MCV MCH MCHC RDW Plt Count MPV Neut % (Auto) Lymph % (Auto) [place] % (Auto) Eos % (Auto) Baso % (Auto) Neut # (Auto) Lymph # (Auto) [place] # (Auto) Eos # (Auto) Baso # (Auto) Neutrophils % (Manual) Band Neutrophils % Lymphocytes % (Manual) Monocytes % (Manual) Platelet Estimate Hypochromasia (manual) Anisocytosis (manual) Sodium Potassium Chloride Carbon Dioxide Anion Gap BUN Creatinine Est GFR ( Amer) Est GFR (Non-Af Amer) POC Glucose (mg/dL) 236 H 275 H Random Glucose Calcium Phosphorus Magnesium Total Bilirubin AST ALT Alkaline Phosphatase Total Protein Albumin Globulin Albumin/Globulin Ratio Fingerstick Blood Sugar Results: 331 Critical Care Progress Note - Nutrition Nutrition: Nutrition Category Date Time Status Heart Healthy Diet [DIET] Diets 12/27/17 Breakfast Active Assessment/Plan - Assessment and Plan (Free Text) Assessment: This is a 72 year old male with PMHx of HTN, Atrial Fibrillation (on Eliquis), HTN, T2DM, AICD, COPD, Hypothyroidism, renal transplant 2004, EGD 2014 - erosive gastritis, Colonoscopy 2014 - resection of polyp s/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 versus, septic knee?, versus PNA? in an immunocompromised patient, atrial fibrillation with RVR, and NSTEMI. Plan: Cardio: A: Atrial Fibrillation with RVR on admission - Patient takes Eliquis 5mg PO BID - Will hold 2/2 anemia (hx recent GI bleed), will continue to monitor and resume when appropriate - Restarted home Cardizem 240mg daily A: Hx of Suspected Endocarditis; Endocarditis was ruled out - Last ECHO 2014: LVEF 55%, no obvious vegetation, mod pulm HTN - Spoke with Dr. Bradshaw- FERNANDO was done in [facility] [place] - negative for Endocarditis A: NSTEMI - Troponins 0.1540, 0.2990, 0.2110 - AC on hold 2/2 previous GI bleed A: Hx HF with pEF -Diastolic Dysfunction with AICD - Seen on previous ECHO 2014 - New ECHO: LVH, LVEF 55-60%, no vegetation noted A: HTN Pulm: A: COPD - Duonebs Q6H, Advair Endo: A: Hypothyroidism - Elevated TSH - Started synthroid 150 - Will need to follow up as outpatient A: T2DM - HgA1C 6.7 - Accuchecks, ISS low GI: A: Hx GI Bleed - Recent admission to [facility] [place] - Hold ASA, Eliquis - Continue to monitor A: Hx Erosive Gastritis - EGD 2014 - erosive gastritis A: Hx Right Colon Ca s/p resection 2014 - Colonoscopy 2014 - resection of polyp s/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 Morrissey consulted - Tacrolimus 3mg PO BID, Prednisone 20mg PO daily ID: A: Sepsis - Left knee? s/p tap gout? Septic arthritis - Procal 4.79, lactate 3.9 --> 1.8 - BC + gram + cocci - Switched to Zyvox 12/29/17 and Zosyn 12/27 - PER ID RECCS: consider CT Chest abd / pelvis, consider FERNANDO, consider bone scan left knee to r/o OM, consider Left knee arthrocentesis with special cultures for bacteria, AFB, fungus - F/u roca cultures Heme/Onc: A: Anemia - Baseline 9 MSK: A: Gout - Resumed home medications: Colchicine 0.6mg daily Prophylaxis: - Protonix - SCDs, Heparin Q12 Disposition: PATIENT TRANSFERRED TO TELEMETRY. DW Dr. Castellano, Nuvia Cheng DO, PGY-1 <Vito Castellano M - Last Filed: 12/31/17 21:32> CCU Objective - Vital Signs / Intake & Output Vital Signs (Last 4 hours): Vital Signs Pulse 12/31/17 20:00 94 H Intake and Output (Last 8hrs): Intake & Output 12/31/17 12/31/17 12/31/17 06:59 14:59 22:59 Intake Total 520 Output Total 550 Balance -30 Intake: Intake, IV Amount 100 Right Forearm 100 Oral 420 Output: Urine 550 Urine, Voided 550 Other: # Bowel Movements 1 - Medications Active Medications: Active Medications Generic Name Dose Route Start Last Admin Trade Name Freq PRN Reason Stop Dose Admin Acetaminophen 325 mg 12/27/17 23:38 Tylenol 325mg Tab PO Q6 PRN Fever >100.4 F Albuterol/Ipratropium 3 ml 12/31/17 17:00 Duoneb 3 Mg/0.5 Mg (3 Ml) Ud INH Q8H FAHEEM Calcium Carbonate 500 mg 12/29/17 10:00 12/31/17 18:17 Oscal PO 500 mg TID FAHEEM Administration Colchicine 0.6 mg 12/28/17 10:00 12/31/17 10:10 Colocrys PO 0.6 mg DAILY FAHEEM Administration Diltiazem HCl 240 mg 12/29/17 10:00 12/31/17 10:10 Cardizem Cd PO 240 mg DAILY FAHEEM Administration Epoetin Jean Paul 10,000 unit 01/02/18 09:00 Procrit SC MWF [facility] Heparin Sodium (Porcine) 5,000 units 12/28/17 10:00 12/31/17 21:24 Heparin SC 5,000 units Q12 FAHEEM Administration Piperacillin Sod/Tazobactam Sod 2.25 gm in 50 mls @ 100 mls/hr 12/27/17 23:45 12/31/17 18:17 Zosyn 2.25 Gm Iv Premix IVPB 100 mls/hr Q6H FAHEEM Administration Protocol Insulin Human Regular 0 unit 12/28/17 16:30 12/31/17 21:19 Novolin R SC Not Given ACHS [facility] Protocol Levothyroxine Sodium 150 mcg 12/28/17 06:30 12/31/17 07:49 Synthroid PO 150 mcg DAILY@0630 [facility]EM Administration Montelukast Sodium 10 mg 12/28/17 10:00 12/31/17 10:10 Singulair PO 10 mg DAILY [facility] Administration Pantoprazole Sodium 40 mg 12/28/17 10:00 12/31/17 10:19 Protonix Ec Tab PO 40 mg DAILY [facility] Administration Potassium Phos/Sodium Phos 1 pkt 12/30/17 18:00 12/31/17 18:17 Neutra-Phos PO 01/02/18 06:00 1 pkt BID FAHEEM Administration Prednisone 15 mg 12/31/17 10:00 12/31/17 10:55 Prednisone Tab PO 15 mg DAILY [facility]EM Administration Fluticasone/Salmeterol 1 puff 12/28/17 10:00 12/31/17 20:44 Advair Diskus 250/50 INH Not Given RQ12 FAHEEM Tacrolimus 3 mg 12/28/17 10:59 12/31/17 18:17 Prograf Cap PO 3 mg BID FAHEEM Administration Tacrolimus 0.5 mg 12/31/17 10:00 12/31/17 10:55 Prograf Cap PO 0.5 mg DAILY FAHEEM Administration - Patient Studies Lab Studies: Microbiology Studies 12/28/17 05:58 Blood Culture - Final Blood-Venous Str.gallolyticus Ss Pasteurian Gram Stain - Final 12/28/17 05:58 Blood Culture - Preliminary Blood-Venous NO GROWTH AFTER 3 DAYS Lab Studies 12/31/17 12/31/17 12/31/17 Range/Units 21:11 17:36 11:15 WBC (4.8-10.8) K/uL RBC (4.40-5.90) Mil/uL Hgb (12.0-18.0) g/dL Hct (35.0-51.0) % MCV (80.0-94.0) fL MCH (27.0-31.0) pg MCHC (33.0-37.0) g/dL RDW (11.5-14.5) % Plt Count (130-400) K/uL MPV (7.2-11.7) fL Neut % (Auto) (50.0-75.0) % Lymph % (Auto) (20.0-40.0) % [place] % (Auto) (0.0-10.0) % Eos % (Auto) (0.0-4.0) % Baso % (Auto) (0.0-2.0) % Neut # (Auto) (1.8-7.0) K/uL Lymph # (Auto) (1.0-4.3) K/uL [place] # (Auto) (0.0-0.8) K/uL Eos # (Auto) (0.0-0.7) K/uL Baso # (Auto) (0.0-0.2) K/uL Neutrophils % (Manual) (50-75) % Band Neutrophils % (0-2) % Lymphocytes % (Manual) (20-40) % Monocytes % (Manual) (0-10) % Eosinophils % (Manual) (0-4) % Platelet Estimate (NORMAL) Polychromasia Hypochromasia (manual) Poikilocytosis (manual Anisocytosis (manual) Microcytosis (manual) Macrocytosis (manual) Spherocytes Tear Drop Cells Ovalocytes Sodium (132-148) mmol/L Potassium (3.6-5.2) mmol/L Chloride (98-107) mmol/L Carbon Dioxide (22-30) mmol/L Anion Gap (10-20) BUN (9-20) mg/dL Creatinine (0.8-1.5) mg/dL Est GFR ( Amer) Est GFR (Non-Af Amer) POC Glucose (mg/dL) 270 H 218 H 120 H (65-110) mg/dL Random Glucose (75-110) mg/dL Calcium (8.6-10.4) mg/dl Phosphorus (2.5-4.5) mg/dL Magnesium (1.6-2.3) mg/dL Total Bilirubin (0.2-1.3) mg/dL AST (17-59) U/L ALT (21-72) U/L Alkaline Phosphatase (38-126) U/L Total Protein (6.3-8.3) g/dL Albumin (3.5-5.0) g/dL Globulin (2.2-3.9) gm/dL Albumin/Globulin Ratio (1.0-2.1) 12/31/17 12/31/17 12/31/17 Range/Units 07:29 06:48 06:48 WBC 9.2 (4.8-10.8) K/uL RBC 3.13 L (4.40-5.90) Mil/uL Hgb 8.8 L (12.0-18.0) g/dL Hct 26.4 L (35.0-51.0) % MCV 84.4 (80.0-94.0) fL MCH 28.1 (27.0-31.0) pg MCHC 33.2 (33.0-37.0) g/dL RDW 17.2 H (11.5-14.5) % Plt Count 217 (130-400) K/uL MPV 8.0 (7.2-11.7) fL Neut % (Auto) 89.1 H (50.0-75.0) % Lymph % (Auto) 4.2 L (20.0-40.0) % [place] % (Auto) 5.4 (0.0-10.0) % Eos % (Auto) 0.9 (0.0-4.0) % Baso % (Auto) 0.4 (0.0-2.0) % Neut # (Auto) 8.2 H (1.8-7.0) K/uL Lymph # (Auto) 0.4 L (1.0-4.3) K/uL [place] # (Auto) 0.5 (0.0-0.8) K/uL Eos # (Auto) 0.1 (0.0-0.7) K/uL Baso # (Auto) 0.0 (0.0-0.2) K/uL Neutrophils % (Manual) 91 H (50-75) % Band Neutrophils % 1 (0-2) % Lymphocytes % (Manual) 4 L (20-40) % Monocytes % (Manual) 3 (0-10) % Eosinophils % (Manual) 1 (0-4) % Platelet Estimate Normal (NORMAL) Polychromasia Slight Hypochromasia (manual) Slight Poikilocytosis (manual Slight Anisocytosis (manual) Slight Microcytosis (manual) Slight Macrocytosis (manual) Slight Spherocytes Slight Tear Drop Cells Slight Ovalocytes Slight Sodium 140 (132-148) mmol/L Potassium 3.9 (3.6-5.2) mmol/L Chloride 106 (98-107) mmol/L Carbon Dioxide 22 (22-30) mmol/L Anion Gap 16 (10-20) BUN 16 (9-20) mg/dL Creatinine 1.3 (0.8-1.5) mg/dL Est GFR ( Amer) > 60 Est GFR (Non-Af Amer) 54 POC Glucose (mg/dL) 90 (65-110) mg/dL Random Glucose 69 L (75-110) mg/dL Calcium 8.0 L (8.6-10.4) mg/dl Phosphorus 1.8 L (2.5-4.5) mg/dL Magnesium 1.8 (1.6-2.3) mg/dL Total Bilirubin 0.4 (0.2-1.3) mg/dL AST 22 (17-59) U/L ALT 36 (21-72) U/L Alkaline Phosphatase 106 (38-126) U/L Total Protein 5.9 L (6.3-8.3) g/dL Albumin 3.4 L (3.5-5.0) g/dL Globulin 2.5 (2.2-3.9) gm/dL Albumin/Globulin Ratio 1.3 (1.0-2.1) Laboratory Results - last 24 hr 12/31/17 12/31/17 12/31/17 06:48 06:48 07:29 WBC 9.2 RBC 3.13 L Hgb 8.8 L Hct 26.4 L MCV 84.4 MCH 28.1 MCHC 33.2 RDW 17.2 H Plt Count 217 MPV 8.0 Neut % (Auto) 89.1 H Lymph % (Auto) 4.2 L [place] % (Auto) 5.4 Eos % (Auto) 0.9 Baso % (Auto) 0.4 Neut # (Auto) 8.2 H Lymph # (Auto) 0.4 L [place] # (Auto) 0.5 Eos # (Auto) 0.1 Baso # (Auto) 0.0 Neutrophils % (Manual) 91 H Band Neutrophils % 1 Lymphocytes % (Manual) 4 L Monocytes % (Manual) 3 Eosinophils % (Manual) 1 Platelet Estimate Normal Polychromasia Slight Hypochromasia (manual) Slight Poikilocytosis (manual Slight Anisocytosis (manual) Slight Microcytosis (manual) Slight Macrocytosis (manual) Slight Spherocytes Slight Tear Drop Cells Slight Ovalocytes Slight Sodium 140 Potassium 3.9 Chloride 106 Carbon Dioxide 22 Anion Gap 16 BUN 16 Creatinine 1.3 Est GFR ( Amer) > 60 Est GFR (Non-Af Amer) 54 POC Glucose (mg/dL) 90 Random Glucose 69 L Calcium 8.0 L Phosphorus 1.8 L Magnesium 1.8 Total Bilirubin 0.4 AST 22 ALT 36 Alkaline Phosphatase 106 Total Protein 5.9 L Albumin 3.4 L Globulin 2.5 Albumin/Globulin Ratio 1.3 12/31/17 12/31/17 12/31/17 11:15 17:36 21:11 WBC RBC Hgb Hct MCV MCH MCHC RDW Plt Count MPV Neut % (Auto) Lymph % (Auto) [place] % (Auto) Eos % (Auto) Baso % (Auto) Neut # (Auto) Lymph # (Auto) [place] # (Auto) Eos # (Auto) Baso # (Auto) Neutrophils % (Manual) Band Neutrophils % Lymphocytes % (Manual) Monocytes % (Manual) Eosinophils % (Manual) Platelet Estimate Polychromasia Hypochromasia (manual) Poikilocytosis (manual Anisocytosis (manual) Microcytosis (manual) Macrocytosis (manual) Spherocytes Tear Drop Cells Ovalocytes Sodium Potassium Chloride Carbon Dioxide Anion Gap BUN Creatinine Est GFR ( Amer) Est GFR (Non-Af Amer) POC Glucose (mg/dL) 120 H 218 H 270 H Random Glucose Calcium Phosphorus Magnesium Total Bilirubin AST ALT Alkaline Phosphatase Total Protein Albumin Globulin Albumin/Globulin Ratio Critical Care Progress Note - Nutrition Nutrition: Nutrition Category Date Time Status Heart Healthy Diet [DIET] Diets 12/27/17 Breakfast Active Attending/Attestation - Attestation I have personally seen and examined this patient.: Yes I have fully participated in the care of the patient.: Yes I have reviewed all pertinent clinical information: Yes Notes (Text): 12/29/17 Today: December The Patient was seen and examined at the bedside, Medical records reviewed, and management issues were discussed and formulated with the house staff. I have reviewed all the relevant clinical, laboratory, hemodynamic, radiographic data and medications Events reviewed Pain issues, skin care, head of the bed elevation, glycemic control were addressed. Agree with above resident's assessment and treatment plans of care as transcribed in Dr. Cheng note.
[2017-12-30] MEDS: Piperacill/Tazo 2.25gm in Dex 2.25 GM/50 ML BAG IVPB SCH ×4 (00:20→17:00)
[2017-12-30] MEDS: Albuterol-Ipratrop 3 mg / 0.5 (3 ml) UD INH SCH ×4 (01:30→20:41)
[2017-12-30] MEDS: Levothyroxine 150 MCG TAB PO SCH (06:05)
[2017-12-30 06:57] LABS: BASO # 0.1 K/uL (0.0-0.2); BASO % 0.8 % (0.0-2.0); EOS # 0.1 K/uL (0.0-0.7); EOS % 1.4 % (0.0-4.0); HEMOGLOBIN 8.5 g/dL (12.0-18.0); LYMPH # 0.3 K/uL (1.0-4.3); LYMPH % 3.1 % (20.0-40.0); MEAN CELL VOLUME 85.1 fL (80.0-94.0); MEAN CORPUSCULAR HEMOGLOBIN 28.3 pg (27.0-31.0); MEAN CORPUSCULAR HGB CONC 33.3 g/dL (33.0-37.0); MEAN PLATELET VOLUME 8.7 fL (7.2-11.7); MONO # 0.5 K/uL (0.0-0.8); MONO % 4.8 % (0.0-10.0); NEUT # 8.4 K/uL (1.8-7.0); NEUT % 89.9 % (50.0-75.0); PLATELET COUNT 199 K/uL (130-400); RBC 2.99 Mil/uL (4.40-5.90); RED CELL DISTRIBUTION WIDTH 16.9 % (11.5-14.5); WHITE BLOOD COUNT 9.4 K/uL (4.8-10.8)
[2017-12-30 07:04] LABS: ALB/GLOB RATIO 1.1 (1.0-2.1); ALBUMIN 3.2 g/dL (3.5-5.0); ALT/SGPT 41 U/L (21-72); AST/SGOT 39 U/L (17-59); BLOOD UREA NITROGEN 17 mg/dL (9-20); CALCIUM 7.2 mg/dl (8.6-10.4); GFR AFRICAN-AMERICAN > 60; GFR NON-AFRICAN AMERICAN 60
[2017-12-30] MEDS: Fluticasone-Salmeterol 250-50mcg Diskus INH SCH ×2 (07:19→20:41)
[2017-12-30] MEDS: (Novolin R) Insulin Human Regular 100 units/ml vial SC SCH ×4 (07:30→22:11)
[2017-12-30 08:20] LABS: ANISOCYTOSIS SLIGHT; BANDS 3 % (0-2); HYPOCHROMIC SLIGHT; LYMPHOCYTE 2 % (20-40); MONOCYTE 4 % (0-10); NEUTROPHIL 91 % (50-75); PLATELET ESTIMATE NORMAL (NORMAL); POIKILOCYTOSIS SLIGHT; TOTAL CELLS COUNTED 100
[2017-12-30 08:21] LABS: BURR CELLS SLIGHT; TEARDROP CELLS SLIGHT
[2017-12-30] MEDS: diltiaZEM 240 mg/24 Hours CD Cap PO SCH (09:18)
[2017-12-30] MEDS: Linezolid 600 mg in D5W 300 ml 600 MG/300 ML BAG IVPB SCH (09:18)
[2017-12-30] MEDS: Pantoprazole 40 mg EC Tab PO SCH (09:18)
--- NOTE | 2017-12-30 13:20 | CP.PCM.PN ---
Subjective - Date & Time of Evaluation Date of Evaluation: 12/30/17 Time of Evaluation: 13:16 - Subjective Subjective: Feels better, less dyspneic, less cough, afebrile left knee pain better- likely gout +strep bacteremia noted- on IV ABs no n,v, f, chills, diarrhea Objective - Vital Signs/Intake and Output Vital Signs (last 24 hours): Temp Pulse Resp BP Pulse Ox 97.6 F 119 H 22 135/77 100 12/30/17 08:00 12/30/17 10:58 12/30/17 10:58 12/30/17 10:58 12/30/17 10:58 Intake and Output: 12/30/17 12/30/17 06:59 18:59 Intake Total 220 Output Total 800 Balance -580 - Medications Medications: Current Medications Acetaminophen (Tylenol 325mg Tab) 325 mg PO Q6 PRN PRN Reason: Fever >100.4 F Albuterol/Ipratropium (Duoneb 3 Mg/0.5 Mg (3 Ml) Ud) 3 ml INH RQ6 [facility] Last Admin: 12/30/17 07:18 Dose: 3 ml Calcium Carbonate (Oscal) 500 mg PO TID [facility] Last Admin: 12/30/17 09:18 Dose: 500 mg Colchicine (Colocrys) 0.6 mg PO DAILY [facility] Last Admin: 12/30/17 09:18 Dose: 0.6 mg Diltiazem HCl (Cardizem Cd) 240 mg PO DAILY [facility] Last Admin: 12/30/17 09:18 Dose: 240 mg Heparin Sodium (Porcine) (Heparin) 5,000 units SC Q12 [facility] Last Admin: 12/30/17 10:00 Dose: 5,000 units Piperacillin Sod/Tazobactam Sod (Zosyn 2.25 Gm Iv Premix) 2.25 gm in 50 mls @ 100 mls/hr IVPB Q6H [facility] PRN Reason: Protocol Last Admin: 12/30/17 12:10 Dose: 100 mls/hr Linezolid (Zyvox 600mg/300ml D5w) 600 mg in 300 mls @ 200 mls/hr IVPB Q12 [facility] PRN Reason: Protocol Last Admin: 12/30/17 09:18 Dose: 200 mls/hr Insulin Human Regular (Novolin R) 0 unit SC ACHS [facility]HE[facility] PRN Reason: Protocol Last Admin: 12/30/17 12:04 Dose: 1 units Levothyroxine Sodium (Synthroid) 150 mcg PO DAILY@0630 [facility] Last Admin: 12/30/17 06:05 Dose: 150 mcg Montelukast Sodium (Singulair) 10 mg PO DAILY [facility] Last Admin: 12/30/17 09:18 Dose: 10 mg Pantoprazole Sodium (Protonix Ec Tab) 40 mg PO DAILY [facility] Last Admin: 12/30/17 09:18 Dose: 40 mg Prednisone (Prednisone Tab) 20 mg PO DAILY [facility] Last Admin: 12/30/17 09:18 Dose: 20 mg Fluticasone/Salmeterol (Advair Diskus 250/50) 1 puff INH RQ12 [facility] Last Admin: 12/30/17 07:19 Dose: 1 puff Tacrolimus (Prograf Cap) 3 mg PO BID [facility] Last Admin: 12/30/17 09:18 Dose: 3 mg - Labs Labs: 12/30/17 06:39 12/30/17 06:40 PT 13.0 SECONDS (9.7-12.2) H 12/27/17 21:37 INR 1.2 12/27/17 21:37 APTT 30 SECONDS (21-34) 12/27/17 21:37 - Constitutional Appears: No Acute Distress, Chronically Ill - Head Exam Head Exam: ATRAUMATIC, NORMAL INSPECTION - Eye Exam Eye Exam: EOMI, Normal appearance - Neck Exam Neck Exam: Normal Inspection. absent: Tenderness - Respiratory Exam Respiratory Exam: Rhonchi, NORMAL BREATHING PATTERN - GI/Abdominal Exam GI & Abdominal Exam: Soft. absent: Tenderness - Extremities Exam Extremities Exam: Normal Inspection, Tenderness - Neurological Exam Neurological Exam: Alert, CN II-XII Intact - Skin Skin Exam: Dry, Warm Assessment and Plan (1) Chronic kidney disease, stage III (moderate) Status: Acute (2) History of kidney transplant Status: Acute (3) Cardiomyopathy Status: Acute (4) Sepsis Status: Acute (5) Gout Status: Acute (6) Atrial fibrillation with rapid ventricular response Status: Acute - Assessment and Plan (Free Text) Plan: IV ABs as per ID consider FERNANDO to re-evaluate for SBE check FK level- pt on diltiazem which will increase level replete phos continue prednisone- taper to 5 mg soon
--- NOTE | 2017-12-30 14:57 | CT ---
PROCEDURE: CT chest abdomen pelvis 12/30/2017 HISTORY: Bacteremia, sepsis COMPARISON: None. TECHNIQUE: Contiguous helical/transaxial sections of the chest and pelvis performed without oral or intravenous contrast material. Additional 2D sagittal and coronal reformats generated. No prior studies available comparison. . Radiation dose: Total exam DLP = 432.29 mGy-cm. This CT exam was performed using one or more of the following dose reduction techniques: Automated exposure control, adjustment of the mA and/or kV according to patient size, and/or use of iterative reconstruction technique. FINDINGS: CT CHEST WITHOUT CONTRAST: LUNGS: Right apical pleural thickening and chronic atelectasis right upper lobe with air bronchograms minor localized bronchiectasis and scarring changes. There are also of localized areas of dense consolidation/ chronic atelectasis in the anterior aspect right upper lobe abutting the pleural surface. . In addition, there are diffuse tree-in-bud opacities and what probably represents interstitial fibrosis seen throughout the remaining right upper lobe and to a lesser degree left upper lobe. Irregular scarring changes are also present in the left upper lung field and to a lesser degree left lung base. . There is an - wedge-shaped -the wedge -elliptical shaped nodular opacity in the right middle lobe extending to the pleural surface associate with punctate calcifications felt be postinflammatory. Several small nodular densities also noted throughout the right lower and middle lobes as well as left lower lobe. . There also appears to be underlying mild centrilobular emphysematous changes. MEDIASTINUM: Heart is enlarged. There is also a large of pericardial effusion. In situ multi lead pacemaker/defibrillator again noted. . Ascending thoracic aorta measures approximately 3.2 cm and descending thoracic aorta measures approximately 2.6 cm. Pulmonary trunk measures approximately 3.5 cm ; rule out underlying pulmonary arterial hypertension. LYMPH NODES: There are several small nonspecific mediastinal lymph nodes. Evaluation for hilar adenopathy is limited due to the lack of circulating intravenous contrast material. The Central airways midline and patent. No large central endoluminal lesions. Small hiatal hernia with some minimal wall thickening of the distal esophagus likely to protrusion gastric mucosa. Questionable of layering hyperdense fluid within the distal esophagus suggestive of reflux. PLEURA: Right sided pleural effusion and mild compressive type atelectasis right lung base. Trace left-sided effusion and minimal left basilar atelectasis. The the BONES: Mild multilevel degenerative spondylosis of the thoracic spine. There are no acute compression fractures no retropulsed fragments. OTHER FINDINGS: None. CT ABDOMEN AND PELVIS: LIVER: Liver exhibits normal size and attenuation pattern. No obvious hepatic mass or collection seen on this noncontrast study. GALLBLADDER AND BILE DUCTS: Layering hyperdense sludge and/or small calculi within the dependent portion of the gallbladder near the gallbladder neck region. PANCREAS: Unremarkable. No gross lesion or ductal dilatation. SPLEEN: Unremarkable. ADRENALS: Unremarkable. No mass. KIDNEYS AND URETERS: Kidneys are atrophic bilaterally. . Findings could be secondary to chronic renal artery stenosis. Vascular calcifications are within renal hilar regions and parenchyma. There appears to be at least. The several left-sided renal cysts are felt be present as well. . 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 VASCULATURE: There are vascular calcifications of the abdominal aorta and origins of the branch vessels including the renal arteries BOWEL: Evaluation of the bowel limited due to the lack of oral contrast material. Stomach is incompletely distended which part accounts for thick-walled appearance. Gastritis or other intrinsic/ invasive wall lesion cannot be excluded. Several of distended loops of small bowel the are present some of which exhibit fecalized content suggesting stasis. There is an anastomosis at the level of the mid transverse colon which appears patulous. No evidence of acute mechanical bowel obstruction few scattered colonic diverticula without radiographic evidence of acute diverticulitis. . APPENDIX: Appendix is not seen with complete certainty. PERITONEUM: Unremarkable. No free fluid. No free air. LYMPH NODES: No significant intra abdominal adenopathy. BLADDER: Urinary bladder is physiologically distended. No evidence of intraluminal urinary bladder calculi. REPRODUCTIVE: Prostate gland appears unremarkable. BONES: No acute fracture. OTHER FINDINGS: None. Vascular calcifications IMPRESSION: Cardiomegaly with large pericardial effusion. Small right-sided effusion and trace right-sided effusion associate with some minor atelectasis. Right apical pleural thickening and chronic atelectasis right upper lobe with air bronchograms minor localized bronchiectasis and scarring changes. There are also of localized areas of dense consolidation/ chronic atelectasis in the anterior aspect right upper lobe abutting the pleural surface. . In addition, there are diffuse tree-in-bud opacities and what probably represents interstitial fibrosis seen throughout the remaining right upper lobe and to a lesser degree left upper lobe. Irregular scarring changes are also present in the left upper lung field and to a lesser degree left lung base. . There is an - wedge-shaped -the wedge -elliptical shaped nodular opacity in the right middle lobe extending to the pleural surface associate with punctate calcifications felt be postinflammatory. Several small nodular densities also noted throughout the right lower and middle lobes as well as left lower lobe. . There also appears to be underlying mild centrilobular emphysematous changes. The suspect hyperdense sludge and/or with small layering calculi within the gallbladder. Bilateral atrophic kidneys likely due to chronic renal artery stenosis. There is a transplant kidney right pelvis. There is an anastomosis at the level of the mid transverse colon which appears patulous. No evidence of acute mechanical bowel obstruction few scattered colonic diverticula without radiographic evidence of acute diverticulitis. . Atrophic [place] kidneys with a right pelvic kidney transplant.
--- NOTE | 2017-12-30 18:27 | CP.PCM.PN ---
Subjective - Date & Time of Evaluation Date of Evaluation: 12/30/17 Time of Evaluation: 09:00 - Subjective Subjective: has persistent bacteremia suggestive of an endovascular source Objective - Vital Signs/Intake and Output Vital Signs (last 24 hours): Temp Pulse Resp BP Pulse Ox 97.7 F 108 H 20 132/55 L 100 12/30/17 16:00 12/30/17 14:00 12/30/17 14:00 12/30/17 12:03 12/30/17 16:00 Intake and Output: 12/30/17 12/30/17 06:59 18:59 Intake Total 220 1090 Output Total 800 740 Balance -580 350 - Medications Medications: Current Medications Acetaminophen (Tylenol 325mg Tab) 325 mg PO Q6 PRN PRN Reason: Fever >100.4 F Albuterol/Ipratropium (Duoneb 3 Mg/0.5 Mg (3 Ml) Ud) 3 ml INH RQ6 [facility] Last Admin: 12/30/17 13:17 Dose: 3 ml Calcium Carbonate (Oscal) 500 mg PO TID [facility] Last Admin: 12/30/17 14:29 Dose: 500 mg Colchicine (Colocrys) 0.6 mg PO DAILY [facility] Last Admin: 12/30/17 09:18 Dose: 0.6 mg Diltiazem HCl (Cardizem Cd) 240 mg PO DAILY [facility] Last Admin: 12/30/17 09:18 Dose: 240 mg Epoetin Jean Paul (Procrit) 10,000 unit SC MWF [facility] Heparin Sodium (Porcine) (Heparin) 5,000 units SC Q12 [facility] Last Admin: 12/30/17 10:00 Dose: 5,000 units Piperacillin Sod/Tazobactam Sod (Zosyn 2.25 Gm Iv Premix) 2.25 gm in 50 mls @ 100 mls/hr IVPB Q6H [facility] PRN Reason: Protocol Last Admin: 12/30/17 12:10 Dose: 100 mls/hr Linezolid (Zyvox 600mg/300ml D5w) 600 mg in 300 mls @ 200 mls/hr IVPB Q12 [facility] PRN Reason: Protocol Last Admin: 12/30/17 09:18 Dose: 200 mls/hr Insulin Human Regular (Novolin R) 0 unit SC ACHS [facility] PRN Reason: Protocol Last Admin: 12/30/17 16:35 Dose: 5 units Levothyroxine Sodium (Synthroid) 150 mcg PO DAILY@0630 [facility] Last Admin: 12/30/17 06:05 Dose: 150 mcg Montelukast Sodium (Singulair) 10 mg PO DAILY [facility] Last Admin: 12/30/17 09:18 Dose: 10 mg Pantoprazole Sodium (Protonix Ec Tab) 40 mg PO DAILY [facility] Last Admin: 12/30/17 09:18 Dose: 40 mg Potassium Phos/Sodium Phos (Neutra-Phos) 1 pkt PO BID [facility] Stop: 01/02/18 06:00 Prednisone (Prednisone Tab) 20 mg PO DAILY [facility] Last Admin: 12/30/17 09:18 Dose: 20 mg Fluticasone/Salmeterol (Advair Diskus 250/50) 1 puff INH RQ12 [facility] Last Admin: 12/30/17 07:19 Dose: 1 puff Tacrolimus (Prograf Cap) 3 mg PO BID [facility] Last Admin: 12/30/17 09:18 Dose: 3 mg - Labs Labs: 12/30/17 06:39 12/30/17 06:40 PT 13.0 SECONDS (9.7-12.2) H 12/27/17 21:37 INR 1.2 12/27/17 21:37 APTT 30 SECONDS (21-34) 12/27/17 21:37 - Constitutional Appears: Non-toxic, Chronically Ill - Head Exam Head Exam: NORMOCEPHALIC - Eye Exam Eye Exam: PERRL - ENT Exam ENT Exam: Mucous Membranes Dry - Neck Exam Neck Exam: absent: Lymphadenopathy - Respiratory Exam Respiratory Exam: Decreased Breath Sounds - Cardiovascular Exam Cardiovascular Exam: REGULAR RHYTHM - GI/Abdominal Exam GI & Abdominal Exam: Distended, Soft - Rectal Exam Rectal Exam: Deferred - Exam Exam: NORMAL INSPECTION - Extremities Exam Extremities Exam: absent: Pedal Edema - Back Exam Back Exam: absent: CVA tenderness (L), CVA tenderness (R) - Neurological Exam Neurological Exam: Alert, Awake, Oriented x3 - Psychiatric Exam Psychiatric exam: Normal Mood - Skin Skin Exam: Dry Assessment and Plan (1) Atrial fibrillation with rapid ventricular response Status: Acute (2) Cardiomyopathy Status: Acute (3) Chronic kidney disease, stage III (moderate) Status: Acute (4) Gout Status: Acute (5) History of kidney transplant Status: Acute (6) Sepsis Status: Acute (7) Severe sepsis Status: Acute (8) Bronchiectasis with acute exacerbation Status: Acute (9) COPD bronchitis Status: Acute (10) Chest pain Status: Acute (11) Fever Status: Acute - Assessment and Plan (Free Text) Assessment: severe sepsis- positive blood cultures r/o endocarditis, OM less likely consider bone scan left knee to r/o OM cont iv antibiotics
[2017-12-30] MEDS: Potassium & Sodium Phosphate PO SCH (18:31)
--- NOTE | 2017-12-30 23:43 | CP.PCM.PN ---
Subjective - Date & Time of Evaluation Date of Evaluation: 12/30/17 Time of Evaluation: 23:41 - Subjective Subjective: Patient has no shortness of breath, chest pain, palpitation, weakness. Appetite is good. Objective - Vital Signs/Intake and Output Vital Signs (last 24 hours): Temp Pulse Resp BP Pulse Ox 98 F 108 H 21 145/73 100 12/30/17 20:00 12/30/17 22:00 12/30/17 22:00 12/30/17 20:03 12/30/17 22:00 Intake and Output: 12/30/17 12/31/17 18:59 06:59 Intake Total 1090 Output Total 740 Balance 350 - Medications Medications: Current Medications Acetaminophen (Tylenol 325mg Tab) 325 mg PO Q6 PRN PRN Reason: Fever >100.4 F Albuterol/Ipratropium (Duoneb 3 Mg/0.5 Mg (3 Ml) Ud) 3 ml INH RQ6 [facility] Last Admin: 12/30/17 20:41 Dose: 3 ml Calcium Carbonate (Oscal) 500 mg PO TID [facility] Last Admin: 12/30/17 18:26 Dose: 500 mg Colchicine (Colocrys) 0.6 mg PO DAILY [facility] Last Admin: 12/30/17 09:18 Dose: 0.6 mg Diltiazem HCl (Cardizem Cd) 240 mg PO DAILY [facility] Last Admin: 12/30/17 09:18 Dose: 240 mg Epoetin Jean Paul (Procrit) 10,000 unit SC MWF [facility] Heparin Sodium (Porcine) (Heparin) 5,000 units SC Q12 [facility] Last Admin: 12/30/17 22:07 Dose: 5,000 units Piperacillin Sod/Tazobactam Sod (Zosyn 2.25 Gm Iv Premix) 2.25 gm in 50 mls @ 100 mls/hr IVPB Q6H [facility] PRN Reason: Protocol Last Admin: 12/30/17 17:00 Dose: 100 mls/hr Insulin Human Regular (Novolin R) 0 unit SC ACHS [facility] PRN Reason: Protocol Last Admin: 12/30/17 22:11 Dose: Not Given Levothyroxine Sodium (Synthroid) 150 mcg PO DAILY@0630 [facility] Last Admin: 12/30/17 06:05 Dose: 150 mcg Montelukast Sodium (Singulair) 10 mg PO DAILY [facility] Last Admin: 12/30/17 09:18 Dose: 10 mg Pantoprazole Sodium (Protonix Ec Tab) 40 mg PO DAILY [facility] Last Admin: 12/30/17 09:18 Dose: 40 mg Potassium Phos/Sodium Phos (Neutra-Phos) 1 pkt PO BID [facility] Stop: 01/02/18 06:00 Last Admin: 12/30/17 18:31 Dose: 1 pkt Prednisone (Prednisone Tab) 20 mg PO DAILY [facility] Last Admin: 12/30/17 09:18 Dose: 20 mg Fluticasone/Salmeterol (Advair Diskus 250/50) 1 puff INH RQ12 [facility] Last Admin: 12/30/17 20:41 Dose: 1 puff Tacrolimus (Prograf Cap) 3 mg PO BID [facility] Last Admin: 12/30/17 18:26 Dose: 3 mg - Labs Labs: 12/30/17 06:39 12/30/17 06:40 PT 13.0 SECONDS (9.7-12.2) H 12/27/17 21:37 INR 1.2 12/27/17 21:37 APTT 30 SECONDS (21-34) 12/27/17 21:37 - Constitutional Appears: No Acute Distress, Chronically Ill - Head Exam Head Exam: NORMOCEPHALIC - Eye Exam Eye Exam: Normal appearance Pupil Exam: NORMAL ACCOMODATION - ENT Exam ENT Exam: Normal Exam - Neck Exam Neck Exam: Normal Inspection - Respiratory Exam Additional comments: Few wheeze bilaterally. - Cardiovascular Exam Cardiovascular Exam: REGULAR RHYTHM - GI/Abdominal Exam GI & Abdominal Exam: Soft, Normal Bowel Sounds - Rectal Exam Rectal Exam: Deferred - Exam Exam: NORMAL INSPECTION - Extremities Exam Extremities Exam: Normal Inspection - Back Exam Back Exam: NORMAL INSPECTION - Neurological Exam Neurological Exam: Alert, Awake, Oriented x3 - Psychiatric Exam Psychiatric exam: Anxious - Skin Skin Exam: Dry, Intact, Warm Assessment and Plan (1) Sepsis Assessment & Plan: To continue IV antibiotics. Echocardiogram did not show any obvious valvular vegetation Status: Acute (2) Severe sepsis Status: Acute (3) Atrial fibrillation with rapid ventricular response Assessment & Plan: To continue Diltiazem and Eliquis. Status: Acute
[2017-12-31] MEDS: Piperacill/Tazo 2.25gm in Dex 2.25 GM/50 ML BAG IVPB SCH ×4 (00:36→18:17)
[2017-12-31] MEDS: Albuterol-Ipratrop 3 mg / 0.5 (3 ml) UD INH SCH ×3 (02:02→13:24)
[2017-12-31 06:59] LABS: BASO % 0.4 % (0.0-2.0); EOS # 0.1 K/uL (0.0-0.7); EOS % 0.9 % (0.0-4.0); HEMOGLOBIN 8.8 g/dL (12.0-18.0); LYMPH # 0.4 K/uL (1.0-4.3); LYMPH % 4.2 % (20.0-40.0); MEAN CELL VOLUME 84.4 fL (80.0-94.0); MEAN CORPUSCULAR HEMOGLOBIN 28.1 pg (27.0-31.0); MEAN CORPUSCULAR HGB CONC 33.2 g/dL (33.0-37.0); MONO # 0.5 K/uL (0.0-0.8); MONO % 5.4 % (0.0-10.0); NEUT # 8.2 K/uL (1.8-7.0); NEUT % 89.1 % (50.0-75.0); NRBC % 0.1 % (0.0-2.0); PLATELET COUNT 217 K/uL (130-400); RBC 3.13 Mil/uL (4.40-5.90); RED CELL DISTRIBUTION WIDTH 17.2 % (11.5-14.5); WHITE BLOOD COUNT 9.2 K/uL (4.8-10.8)
[2017-12-31 07:19] LABS: ALB/GLOB RATIO 1.3 (1.0-2.1); ALBUMIN 3.4 g/dL (3.5-5.0); ALT/SGPT 36 U/L (21-72); AST/SGOT 22 U/L (17-59); BLOOD UREA NITROGEN 16 mg/dL (9-20); GFR AFRICAN-AMERICAN > 60; GFR NON-AFRICAN AMERICAN 54
[2017-12-31] MEDS: Fluticasone-Salmeterol 250-50mcg Diskus INH SCH ×2 (07:33→20:44)
[2017-12-31] MEDS: Levothyroxine 150 MCG TAB PO SCH (07:49)
[2017-12-31] MEDS: (Novolin R) Insulin Human Regular 100 units/ml vial SC SCH ×4 (08:46→21:19)
--- NOTE | 2017-12-31 09:15 | CP.PCM.PN ---
Subjective - Date & Time of Evaluation Date of Evaluation: 12/31/17 Time of Evaluation: 09:12 - Subjective Subjective: more alert, not dyspneic afebrile now- on treatment for bacteremia renal function has improved FK level low- needs increased dose tacro cautiuosly echo negative for vegetation Objective - Vital Signs/Intake and Output Vital Signs (last 24 hours): Temp Pulse Resp BP Pulse Ox 98.5 F 116 H 20 147/64 100 12/31/17 04:00 12/31/17 08:04 12/31/17 08:04 12/31/17 08:04 12/31/17 08:00 Intake and Output: 12/31/17 12/31/17 06:59 18:59 Intake Total 520 Output Total 550 Balance -30 - Medications Medications: Current Medications Acetaminophen (Tylenol 325mg Tab) 325 mg PO Q6 PRN PRN Reason: Fever >100.4 F Albuterol/Ipratropium (Duoneb 3 Mg/0.5 Mg (3 Ml) Ud) 3 ml INH RQ6 [facility] Last Admin: 12/31/17 07:31 Dose: 3 ml Calcium Carbonate (Oscal) 500 mg PO TID [facility] Last Admin: 12/30/17 18:26 Dose: 500 mg Colchicine (Colocrys) 0.6 mg PO DAILY [facility] Last Admin: 12/30/17 09:18 Dose: 0.6 mg Diltiazem HCl (Cardizem Cd) 240 mg PO DAILY [facility] Last Admin: 12/30/17 09:18 Dose: 240 mg Epoetin Jean Paul (Procrit) 10,000 unit SC MWF [facility] Heparin Sodium (Porcine) (Heparin) 5,000 units SC Q12 [facility] Last Admin: 12/30/17 22:07 Dose: 5,000 units Piperacillin Sod/Tazobactam Sod (Zosyn 2.25 Gm Iv Premix) 2.25 gm in 50 mls @ 100 mls/hr IVPB Q6H [facility] PRN Reason: Protocol Last Admin: 12/31/17 06:25 Dose: 100 mls/hr Insulin Human Regular (Novolin R) 0 unit SC ACHS [facility] PRN Reason: Protocol Last Admin: 12/31/17 08:46 Dose: Not Given Levothyroxine Sodium (Synthroid) 150 mcg PO DAILY@0630 [facility] Last Admin: 12/31/17 07:49 Dose: 150 mcg Montelukast Sodium (Singulair) 10 mg PO DAILY [facility] Last Admin: 12/30/17 09:18 Dose: 10 mg Pantoprazole Sodium (Protonix Ec Tab) 40 mg PO DAILY [facility] Last Admin: 12/30/17 09:18 Dose: 40 mg Potassium Phos/Sodium Phos (Neutra-Phos) 1 pkt PO BID [facility] Stop: 01/02/18 06:00 Last Admin: 12/30/17 18:31 Dose: 1 pkt Prednisone (Prednisone Tab) 20 mg PO DAILY [facility] Last Admin: 12/30/17 09:18 Dose: 20 mg Fluticasone/Salmeterol (Advair Diskus 250/50) 1 puff INH RQ12 [facility] Last Admin: 12/31/17 07:33 Dose: 1 puff Tacrolimus (Prograf Cap) 3 mg PO BID [facility] Last Admin: 12/30/17 18:26 Dose: 3 mg - Labs Labs: 12/31/17 06:48 12/31/17 06:48 PT 13.0 SECONDS (9.7-12.2) H 12/27/17 21:37 INR 1.2 12/27/17 21:37 APTT 30 SECONDS (21-34) 12/27/17 21:37 - Constitutional Appears: No Acute Distress, Chronically Ill - Head Exam Head Exam: ATRAUMATIC, NORMAL INSPECTION - Eye Exam Eye Exam: EOMI, Normal appearance - Neck Exam Neck Exam: Full ROM, Normal Inspection - Respiratory Exam Respiratory Exam: Rhonchi, NORMAL BREATHING PATTERN - Cardiovascular Exam Cardiovascular Exam: Tachycardia, Irregular Rhythm - GI/Abdominal Exam GI & Abdominal Exam: Soft. absent: Tenderness - Extremities Exam Extremities Exam: Normal Inspection. absent: Tenderness - Neurological Exam Neurological Exam: Alert, CN II-XII Intact - Skin Skin Exam: Dry, Warm Assessment and Plan (1) Chronic kidney disease, stage III (moderate) Status: Acute (2) History of kidney transplant Status: Acute (3) Cardiomyopathy Status: Acute (4) Sepsis Status: Acute (5) Gout Status: Acute (6) Atrial fibrillation with rapid ventricular response Status: Acute - Assessment and Plan (Free Text) Plan: IV ABs as per ID taper steroids increase tacro dose continue ca, phos supplements
[2017-12-31 09:38] LABS: BANDS 1 % (0-2); EOSINOPHIL 1 % (0-4); LYMPHOCYTE 4 % (20-40); MONOCYTE 3 % (0-10); NEUTROPHIL 91 % (50-75); PLATELET ESTIMATE NORMAL (NORMAL); TOTAL CELLS COUNTED 100
[2017-12-31 09:39] LABS: ANISOCYTOSIS SLIGHT; HYPOCHROMIC SLIGHT; MICROCYTOSIS SLIGHT; POIKILOCYTOSIS SLIGHT; POLYCHROMIC SLIGHT
[2017-12-31 09:40] LABS: OVALOCYTES SLIGHT; SPHEROCYTES SLIGHT; TEARDROP CELLS SLIGHT
[2017-12-31] MEDS: diltiaZEM 240 mg/24 Hours CD Cap PO SCH (10:10)
[2017-12-31] MEDS: Potassium & Sodium Phosphate PO SCH ×2 (10:11→18:17)
[2017-12-31] MEDS: Pantoprazole 40 mg EC Tab PO SCH (10:19)
--- NOTE | 2017-12-31 17:04 | CP.PCM.PN ---
Subjective - Date & Time of Evaluation Date of Evaluation: 12/31/17 Time of Evaluation: 17:02 - Subjective Subjective: Patient complaining of tremors. Will decrease Duoneb via nebulizer q 8H. Afebrile, with good appetite. Objective - Vital Signs/Intake and Output Vital Signs (last 24 hours): Temp Pulse Resp BP Pulse Ox 97.9 F 97 H 20 165/81 H 98 12/31/17 16:54 12/31/17 16:54 12/31/17 16:54 12/31/17 16:54 12/31/17 16:54 Intake and Output: 12/31/17 12/31/17 06:59 18:59 Intake Total 520 Output Total 550 Balance -30 - Medications Medications: Current Medications Acetaminophen (Tylenol 325mg Tab) 325 mg PO Q6 PRN PRN Reason: Fever >100.4 F Albuterol/Ipratropium (Duoneb 3 Mg/0.5 Mg (3 Ml) Ud) 3 ml INH Q8H [facility] Calcium Carbonate (Oscal) 500 mg PO TID [facility] Last Admin: 12/31/17 13:25 Dose: 500 mg Colchicine (Colocrys) 0.6 mg PO DAILY [facility] Last Admin: 12/31/17 10:10 Dose: 0.6 mg Diltiazem HCl (Cardizem Cd) 240 mg PO DAILY [facility] Last Admin: 12/31/17 10:10 Dose: 240 mg Epoetin Jean Paul (Procrit) 10,000 unit SC MWF [facility] Heparin Sodium (Porcine) (Heparin) 5,000 units SC Q12 [facility] Last Admin: 12/31/17 10:14 Dose: 5,000 units Piperacillin Sod/Tazobactam Sod (Zosyn 2.25 Gm Iv Premix) 2.25 gm in 50 mls @ 100 mls/hr IVPB Q6H [facility] PRN Reason: Protocol Last Admin: 12/31/17 13:25 Dose: 100 mls/hr Insulin Human Regular (Novolin R) 0 unit SC ACHS [facility] PRN Reason: Protocol Last Admin: 12/31/17 13:13 Dose: Not Given Levothyroxine Sodium (Synthroid) 150 mcg PO DAILY@0630 [facility] Last Admin: 12/31/17 07:49 Dose: 150 mcg Montelukast Sodium (Singulair) 10 mg PO DAILY [facility] Last Admin: 12/31/17 10:10 Dose: 10 mg Pantoprazole Sodium (Protonix Ec Tab) 40 mg PO DAILY [facility] Last Admin: 12/31/17 10:19 Dose: 40 mg Potassium Phos/Sodium Phos (Neutra-Phos) 1 pkt PO BID [facility] Stop: 01/02/18 06:00 Last Admin: 12/31/17 10:11 Dose: 1 pkt Prednisone (Prednisone Tab) 15 mg PO DAILY [facility] Last Admin: 12/31/17 10:55 Dose: 15 mg Fluticasone/Salmeterol (Advair Diskus 250/50) 1 puff INH RQ12 [facility] Last Admin: 12/31/17 07:33 Dose: 1 puff Tacrolimus (Prograf Cap) 3 mg PO BID [facility] Last Admin: 12/31/17 10:11 Dose: 3 mg Tacrolimus (Prograf Cap) 0.5 mg PO DAILY [facility] Last Admin: 12/31/17 10:55 Dose: 0.5 mg - Labs Labs: 12/31/17 06:48 12/31/17 06:48 PT 13.0 SECONDS (9.7-12.2) H 12/27/17 21:37 INR 1.2 12/27/17 21:37 APTT 30 SECONDS (21-34) 12/27/17 21:37 - Constitutional Appears: No Acute Distress, Chronically Ill - Head Exam Head Exam: NORMAL INSPECTION - Eye Exam Eye Exam: Normal appearance - ENT Exam ENT Exam: Normal Exam - Respiratory Exam Additional comments: Few rhonchi both bases. - Cardiovascular Exam Cardiovascular Exam: Irregular Rhythm - GI/Abdominal Exam GI & Abdominal Exam: Soft, Normal Bowel Sounds - Rectal Exam Rectal Exam: Deferred - Extremities Exam Extremities Exam: Normal Inspection - Back Exam Back Exam: NORMAL INSPECTION - Neurological Exam Neurological Exam: Alert, Awake, Oriented x3 - Psychiatric Exam Psychiatric exam: Anxious - Skin Skin Exam: Dry, Intact, Normal Color, Warm Assessment and Plan (1) Sepsis Assessment & Plan: IV antibiotics as per Dr Nash. Status: Acute (2) Severe sepsis Status: Acute (3) Atrial fibrillation with rapid ventricular response Assessment & Plan: To continue Cardizem and Apixaban Status: Acute
[2018-01-01] MEDS: Piperacill/Tazo 2.25gm in Dex 2.25 GM/50 ML BAG IVPB SCH ×4 (00:33→17:00)
[2018-01-01] MEDS: Albuterol-Ipratrop 3 mg / 0.5 (3 ml) UD INH SCH ×3 (01:31→16:57)
[2018-01-01] MEDS: Levothyroxine 150 MCG TAB PO SCH (07:49)
[2018-01-01] MEDS: (Novolin R) Insulin Human Regular 100 units/ml vial SC SCH ×4 (07:58→22:54)
[2018-01-01 08:01] LABS: BASO # 0.1 K/uL (0.0-0.2); BASO % 0.6 % (0.0-2.0); EOS # 0.2 K/uL (0.0-0.7); EOS % 2.2 % (0.0-4.0); HEMOGLOBIN 8.8 g/dL (12.0-18.0); LYMPH # 0.4 K/uL (1.0-4.3); LYMPH % 5.1 % (20.0-40.0); MEAN CELL VOLUME 84.4 fL (80.0-94.0); MEAN CORPUSCULAR HEMOGLOBIN 27.8 pg (27.0-31.0); MEAN CORPUSCULAR HGB CONC 32.9 g/dL (33.0-37.0); MEAN PLATELET VOLUME 7.8 fL (7.2-11.7); MONO # 0.5 K/uL (0.0-0.8); MONO % 5.9 % (0.0-10.0); NEUT % 86.2 % (50.0-75.0); PLATELET COUNT 213 K/uL (130-400); RBC 3.18 Mil/uL (4.40-5.90); RED CELL DISTRIBUTION WIDTH 17.1 % (11.5-14.5); WHITE BLOOD COUNT 8.1 K/uL (4.8-10.8)
[2018-01-01 08:23] LABS: ALB/GLOB RATIO 1.2 (1.0-2.1); ALBUMIN 3.3 g/dL (3.5-5.0); CALCIUM 8.9 mg/dl (8.6-10.4)
[2018-01-01 09:10] LABS: EOSINOPHIL 4 % (0-4); LYMPHOCYTE 9 % (20-40); MONOCYTE 4 % (0-10); NEUTROPHIL 83 % (50-75); PLATELET ESTIMATE NORMAL (NORMAL); TOTAL CELLS COUNTED 100
[2018-01-01 09:11] LABS: ANISOCYTOSIS SLIGHT; HYPOCHROMIC SLIGHT; POIKILOCYTOSIS SLIGHT
[2018-01-01 09:12] LABS: BURR CELLS SLIGHT; MICROCYTOSIS SLIGHT; OVALOCYTES SLIGHT; POLYCHROMIC SLIGHT; TEARDROP CELLS SLIGHT
[2018-01-01 09:13] LABS: SPHEROCYTES SLIGHT
[2018-01-01] MEDS: Fluticasone-Salmeterol 250-50mcg Diskus INH SCH ×2 (09:19→19:26)
[2018-01-01] MEDS: diltiaZEM 240 mg/24 Hours CD Cap PO SCH (11:16)
[2018-01-01] MEDS: Pantoprazole 40 mg EC Tab PO SCH (11:16)
[2018-01-01] MEDS: Potassium & Sodium Phosphate PO SCH ×2 (11:18→17:45)
--- NOTE | 2018-01-01 13:39 | CP.PCM.PN ---
Subjective - Date & Time of Evaluation Date of Evaluation: 01/01/18 Time of Evaluation: 10:00 - Subjective Subjective: iv rx in progress afeb alert rx recommended for 6 weeks Objective - Vital Signs/Intake and Output Vital Signs (last 24 hours): Temp Pulse Resp BP Pulse Ox 98.0 F 63 18 130/66 99 01/01/18 08:55 01/01/18 08:55 01/01/18 08:55 01/01/18 11:42 01/01/18 08:55 Intake and Output: 01/01/18 01/01/18 06:59 18:59 Intake Total 800 Balance 800 - Medications Medications: Current Medications Acetaminophen (Tylenol 325mg Tab) 325 mg PO Q6 PRN PRN Reason: Fever >100.4 F Albuterol/Ipratropium (Duoneb 3 Mg/0.5 Mg (3 Ml) Ud) 3 ml INH Q8H [facility] Last Admin: 01/01/18 09:19 Dose: 3 ml Calcium Carbonate (Oscal) 500 mg PO TID [facility] Last Admin: 01/01/18 13:03 Dose: 500 mg Colchicine (Colocrys) 0.6 mg PO DAILY [facility] Last Admin: 01/01/18 11:19 Dose: 0.6 mg Diltiazem HCl (Cardizem Cd) 240 mg PO DAILY [facility] Last Admin: 01/01/18 11:16 Dose: 240 mg Epoetin Jean Paul (Procrit) 10,000 unit SC MWF [facility] Heparin Sodium (Porcine) (Heparin) 5,000 units SC Q12 [facility] Last Admin: 01/01/18 11:21 Dose: 5,000 units Piperacillin Sod/Tazobactam Sod (Zosyn 2.25 Gm Iv Premix) 2.25 gm in 50 mls @ 100 mls/hr IVPB Q6H [facility] PRN Reason: Protocol Last Admin: 01/01/18 11:13 Dose: 100 mls/hr Insulin Human Regular (Novolin R) 0 unit SC ACHS [facility] PRN Reason: Protocol Last Admin: 01/01/18 12:53 Dose: Not Given Levothyroxine Sodium (Synthroid) 150 mcg PO DAILY@0630 [facility] Last Admin: 01/01/18 07:49 Dose: 150 mcg Montelukast Sodium (Singulair) 10 mg PO DAILY [facility] Last Admin: 01/01/18 11:16 Dose: 10 mg Pantoprazole Sodium (Protonix Ec Tab) 40 mg PO DAILY [facility] Last Admin: 01/01/18 11:16 Dose: 40 mg Potassium Phos/Sodium Phos (Neutra-Phos) 1 pkt PO BID [facility] Stop: 01/02/18 06:00 Last Admin: 01/01/18 11:18 Dose: 1 pkt Prednisone (Prednisone Tab) 15 mg PO DAILY [facility] Last Admin: 01/01/18 11:17 Dose: 15 mg Fluticasone/Salmeterol (Advair Diskus 250/50) 1 puff INH RQ12 [facility] Last Admin: 01/01/18 09:19 Dose: 1 puff Tacrolimus (Prograf Cap) 3 mg PO BID [facility] Last Admin: 01/01/18 11:19 Dose: 3 mg Tacrolimus (Prograf Cap) 0.5 mg PO DAILY [facility] Last Admin: 01/01/18 11:19 Dose: 0.5 mg - Labs Labs: 01/01/18 07:48 01/01/18 07:48 PT 13.0 SECONDS (9.7-12.2) H 12/27/17 21:37 INR 1.2 12/27/17 21:37 APTT 30 SECONDS (21-34) 12/27/17 21:37 - Constitutional Appears: Non-toxic - Head Exam Head Exam: NORMOCEPHALIC - Eye Exam Eye Exam: Normal appearance Pupil Exam: NORMAL ACCOMODATION - ENT Exam ENT Exam: Mucous Membranes Dry - Neck Exam Neck Exam: absent: Lymphadenopathy - Respiratory Exam Respiratory Exam: Clear to Ausculation Bilateral - Cardiovascular Exam Cardiovascular Exam: REGULAR RHYTHM - GI/Abdominal Exam GI & Abdominal Exam: Diminished Bowel Sounds - Rectal Exam Rectal Exam: Deferred - Exam Exam: NORMAL INSPECTION - Extremities Exam Extremities Exam: Normal Inspection - Back Exam Back Exam: absent: CVA tenderness (L), CVA tenderness (R) - Neurological Exam Neurological Exam: Alert, Awake - Psychiatric Exam Psychiatric exam: Normal Affect - Skin Skin Exam: Dry Assessment and Plan (1) Atrial fibrillation with rapid ventricular response Status: Acute (2) Cardiomyopathy Status: Acute (3) Chronic kidney disease, stage III (moderate) Status: Acute (4) Gout Status: Acute (5) History of kidney transplant Status: Acute (6) Sepsis Status: Acute (7) Severe sepsis Status: Acute (8) Bronchiectasis with acute exacerbation Status: Acute (9) COPD bronchitis Status: Acute (10) Chest pain Status: Acute (11) Fever Status: Acute - Assessment and Plan (Free Text) Assessment: cont rx for 6 weeks consider bone scan and FERNANDO
[2018-01-02] MEDS: Piperacill/Tazo 2.25gm in Dex 2.25 GM/50 ML BAG IVPB SCH ×3 (00:38→22:44)
[2018-01-02] MEDS: Albuterol-Ipratrop 3 mg / 0.5 (3 ml) UD INH SCH ×3 (02:50→19:21)
[2018-01-02] MEDS: Levothyroxine 150 MCG TAB PO SCH (05:39)
[2018-01-02 06:35] LABS: BASO % 0.5 % (0.0-2.0); EOS # 0.2 K/uL (0.0-0.7); EOS % 2.4 % (0.0-4.0); HEMOGLOBIN 9.9 g/dL (12.0-18.0); LYMPH # 0.4 K/uL (1.0-4.3); LYMPH % 5.3 % (20.0-40.0); MEAN CELL VOLUME 84.9 fL (80.0-94.0); MEAN CORPUSCULAR HEMOGLOBIN 27.2 pg (27.0-31.0); MEAN CORPUSCULAR HGB CONC 32.1 g/dL (33.0-37.0); MEAN PLATELET VOLUME 7.5 fL (7.2-11.7); MONO # 0.5 K/uL (0.0-0.8); MONO % 5.9 % (0.0-10.0); NEUT # 7.3 K/uL (1.8-7.0); NEUT % 85.9 % (50.0-75.0); NRBC % 0.1 % (0.0-2.0); PLATELET COUNT 217 K/uL (130-400); RBC 3.64 Mil/uL (4.40-5.90); RED CELL DISTRIBUTION WIDTH 17.3 % (11.5-14.5); WHITE BLOOD COUNT 8.5 K/uL (4.8-10.8)
[2018-01-02] MEDS: (Novolin R) Insulin Human Regular 100 units/ml vial SC SCH ×4 (07:29→21:52)
[2018-01-02] MEDS: Fluticasone-Salmeterol 250-50mcg Diskus INH SCH ×2 (07:34→19:21)
[2018-01-02 07:41] LABS: ALB/GLOB RATIO 1.3 (1.0-2.1); ALBUMIN 3.7 g/dL (3.5-5.0); CALCIUM 9.2 mg/dl (8.6-10.4)
[2018-01-02 08:45] LABS: ANISOCYTOSIS SLIGHT; BANDS 2 % (0-2); EOSINOPHIL 4 % (0-4); HYPOCHROMIC SLIGHT; LYMPHOCYTE 5 % (20-40); MONOCYTE 4 % (0-10); NEUTROPHIL 85 % (50-75); OVALOCYTES SLIGHT; PLATELET ESTIMATE NORMAL (NORMAL); TOTAL CELLS COUNTED 100
[2018-01-02] MEDS: diltiaZEM 240 mg/24 Hours CD Cap PO SCH (10:09)
[2018-01-02] MEDS: Pantoprazole 40 mg EC Tab PO SCH (10:09)
[2018-01-02] MEDS: Epoetin Alfa 10,000 unit/ml Dialysis SC SCH (10:41)
[2018-01-02] MEDS ORDERED: Oxycodone/Acetaminophen 5/325 mg Tab PO ONE (11:00)
--- NOTE | 2018-01-02 11:51 | CP.PCM.PN ---
Subjective - Date & Time of Evaluation Date of Evaluation: 01/02/18 Time of Evaluation: 09:00 - Subjective Subjective: blood + for strep on zosyn consider edith / ceretec scan knee however would rx for 6 weeks renal to decide on PICC if acceptable Objective - Vital Signs/Intake and Output Vital Signs (last 24 hours): Temp Pulse Resp BP Pulse Ox 98.0 F 97 H 20 143/77 98 01/02/18 08:59 01/02/18 08:59 01/02/18 08:59 01/02/18 08:59 01/02/18 08:59 - Medications Medications: Current Medications Acetaminophen (Tylenol 325mg Tab) 325 mg PO Q6 PRN PRN Reason: Fever >100.4 F Albuterol/Ipratropium (Duoneb 3 Mg/0.5 Mg (3 Ml) Ud) 3 ml INH Q8H [facility] Last Admin: 01/02/18 08:19 Dose: Not Given Calcium Carbonate (Oscal) 500 mg PO TID [facility] Last Admin: 01/02/18 10:09 Dose: 500 mg Colchicine (Colocrys) 0.6 mg PO DAILY [facility] Last Admin: 01/02/18 10:10 Dose: 0.6 mg Diltiazem HCl (Cardizem Cd) 240 mg PO DAILY [facility] Last Admin: 01/02/18 10:09 Dose: 240 mg Epoetin Jean Paul (Procrit) 10,000 unit SC MWF [facility] Last Admin: 01/02/18 10:41 Dose: 10,000 unit Heparin Sodium (Porcine) (Heparin) 5,000 units SC Q12 [facility] Last Admin: 01/02/18 10:15 Dose: 5,000 units Piperacillin Sod/Tazobactam Sod (Zosyn 2.25 Gm Iv Premix) 2.25 gm in 50 mls @ 100 mls/hr IVPB Q8 [facility] PRN Reason: Protocol Insulin Human Regular (Novolin R) 0 unit SC ACHS [facility] PRN Reason: Protocol Last Admin: 01/02/18 11:40 Dose: Not Given Levothyroxine Sodium (Synthroid) 150 mcg PO DAILY@0630 [facility] Last Admin: 01/02/18 05:39 Dose: 150 mcg Montelukast Sodium (Singulair) 10 mg PO DAILY [facility] Last Admin: 01/02/18 10:09 Dose: 10 mg Nystatin (Nystatin Oral Susp) 5 ml PO QID [facility] Pantoprazole Sodium (Protonix Ec Tab) 40 mg PO DAILY [facility] Last Admin: 01/02/18 10:09 Dose: 40 mg Prednisone (Prednisone Tab) 15 mg PO DAILY [facility] Last Admin: 01/02/18 10:09 Dose: 15 mg Fluticasone/Salmeterol (Advair Diskus 250/50) 1 puff INH RQ12 [facility] Last Admin: 01/02/18 07:34 Dose: Not Given Tacrolimus (Prograf Cap) 3 mg PO BID [facility] Last Admin: 01/02/18 10:10 Dose: 3 mg Tacrolimus (Prograf Cap) 0.5 mg PO DAILY [facility] Last Admin: 01/02/18 10:40 Dose: 0.5 mg - Labs Labs: 01/02/18 06:24 01/02/18 06:24 PT 13.0 SECONDS (9.7-12.2) H 12/27/17 21:37 INR 1.2 12/27/17 21:37 APTT 30 SECONDS (21-34) 12/27/17 21:37 Assessment and Plan (1) Atrial fibrillation with rapid ventricular response Status: Acute (2) Cardiomyopathy Status: Acute (3) Chronic kidney disease, stage III (moderate) Status: Acute (4) Gout Status: Acute (5) History of kidney transplant Status: Acute (6) Sepsis Status: Acute (7) Severe sepsis Status: Acute (8) Bronchiectasis with acute exacerbation Status: Acute (9) COPD bronchitis Status: Acute (10) Chest pain Status: Acute (11) Fever Status: Acute
--- NOTE | 2018-01-02 11:59 | CP.PCM.PN ---
Subjective - Date & Time of Evaluation Date of Evaluation: 01/02/18 Time of Evaluation: 11:56 - Subjective Subjective: c/o swollen left knee again not dyspneic Will need PICC for adequate bacteremia treatment renal function stable otherwise afebrile, no chills, n, v, diarrhea Objective - Vital Signs/Intake and Output Vital Signs (last 24 hours): Temp Pulse Resp BP Pulse Ox 98.0 F 97 H 20 143/77 98 01/02/18 08:59 01/02/18 08:59 01/02/18 08:59 01/02/18 08:59 01/02/18 08:59 - Medications Medications: Current Medications Acetaminophen (Tylenol 325mg Tab) 325 mg PO Q6 PRN PRN Reason: Fever >100.4 F Albuterol/Ipratropium (Duoneb 3 Mg/0.5 Mg (3 Ml) Ud) 3 ml INH Q8H [facility] Last Admin: 01/02/18 08:19 Dose: Not Given Calcium Carbonate (Oscal) 500 mg PO TID [facility] Last Admin: 01/02/18 10:09 Dose: 500 mg Colchicine (Colocrys) 0.6 mg PO DAILY [facility] Last Admin: 01/02/18 10:10 Dose: 0.6 mg Diltiazem HCl (Cardizem Cd) 240 mg PO DAILY [facility] Last Admin: 01/02/18 10:09 Dose: 240 mg Epoetin Jean Paul (Procrit) 10,000 unit SC MWF [facility] Last Admin: 01/02/18 10:41 Dose: 10,000 unit Heparin Sodium (Porcine) (Heparin) 5,000 units SC Q12 [facility] Last Admin: 01/02/18 10:15 Dose: 5,000 units Piperacillin Sod/Tazobactam Sod (Zosyn 2.25 Gm Iv Premix) 2.25 gm in 50 mls @ 100 mls/hr IVPB Q8 [facility] PRN Reason: Protocol Insulin Human Regular (Novolin R) 0 unit SC ACHS [facility] PRN Reason: Protocol Last Admin: 01/02/18 11:40 Dose: Not Given Levothyroxine Sodium (Synthroid) 150 mcg PO DAILY@0630 [facility] Last Admin: 01/02/18 05:39 Dose: 150 mcg Montelukast Sodium (Singulair) 10 mg PO DAILY [facility] Last Admin: 01/02/18 10:09 Dose: 10 mg Nystatin (Nystatin Oral Susp) 5 ml PO QID [facility] Pantoprazole Sodium (Protonix Ec Tab) 40 mg PO DAILY [facility] Last Admin: 01/02/18 10:09 Dose: 40 mg Prednisone (Prednisone Tab) 15 mg PO DAILY [facility] Last Admin: 01/02/18 10:09 Dose: 15 mg Fluticasone/Salmeterol (Advair Diskus 250/50) 1 puff INH RQ12 [facility] Last Admin: 01/02/18 07:34 Dose: Not Given Tacrolimus (Prograf Cap) 3 mg PO BID [facility] Last Admin: 01/02/18 10:10 Dose: 3 mg Tacrolimus (Prograf Cap) 0.5 mg PO DAILY [facility] Last Admin: 01/02/18 10:40 Dose: 0.5 mg - Labs Labs: 01/02/18 06:24 01/02/18 06:24 PT 13.0 SECONDS (9.7-12.2) H 12/27/17 21:37 INR 1.2 12/27/17 21:37 APTT 30 SECONDS (21-34) 12/27/17 21:37 - Constitutional Appears: No Acute Distress, Chronically Ill - Head Exam Head Exam: NORMAL INSPECTION, NORMOCEPHALIC - Eye Exam Eye Exam: EOMI, Normal appearance - Neck Exam Neck Exam: Normal Inspection. absent: Tenderness - Respiratory Exam Respiratory Exam: Clear to Ausculation Bilateral, NORMAL BREATHING PATTERN - Cardiovascular Exam Cardiovascular Exam: REGULAR RHYTHM, +S1 - GI/Abdominal Exam GI & Abdominal Exam: Soft. absent: Tenderness - Extremities Exam Extremities Exam: Normal Inspection. absent: Tenderness - Neurological Exam Neurological Exam: Alert, CN II-XII Intact - Skin Skin Exam: Dry, Warm Assessment and Plan (1) Chronic kidney disease, stage III (moderate) Status: Acute (2) History of kidney transplant Status: Acute (3) Cardiomyopathy Status: Acute (4) Sepsis Status: Acute (5) Gout Status: Acute (6) Atrial fibrillation with rapid ventricular response Status: Acute - Assessment and Plan (Free Text) Plan: recheck FK level might need re-tap knee OK for PICC for IV ABs Continue IV ABs Increase prednisone again for gout treatment
[2018-01-02] MEDS: Magnesium Oxide 400 mg Tab UD PO SCH (13:26)
[2018-01-02] MEDS: Nystatin 100,000 Units/ml Oral Susp 5 ml UD PO SCH ×3 (13:27→22:44)
[2018-01-02] MEDS ORDERED: Oxycodone/Acetaminophen 5/325 mg Tab PO PRN (15:00)
--- NOTE | 2018-01-03 00:19 | CP.PCM.PN ---
Subjective - Date & Time of Evaluation Date of Evaluation: 01/02/18 Time of Evaluation: 14:00 - Subjective Subjective: Patient has no complaint. Appetite is markedly improved, Afebrile, Blood culture reveals Str Gallolyticus ss, Pasteurian. Will do FERNANDO to r/o endocarditis. and order a PICC line for ferry terminal agent IV antibiotics as per Dr Nash. Objective - Vital Signs/Intake and Output Vital Signs (last 24 hours): Temp Pulse Resp BP Pulse Ox 98.3 F 76 20 145/80 99 01/02/18 15:00 01/02/18 15:00 01/02/18 15:00 01/02/18 15:00 01/02/18 15:00 - Medications Medications: Current Medications Acetaminophen (Tylenol 325mg Tab) 325 mg PO Q6 PRN PRN Reason: Fever >100.4 F Albuterol/Ipratropium (Duoneb 3 Mg/0.5 Mg (3 Ml) Ud) 3 ml INH Q8H [facility] Last Admin: 01/02/18 19:21 Dose: Not Given Calcium Carbonate (Oscal) 500 mg PO TID [facility] Last Admin: 01/02/18 18:21 Dose: 500 mg Colchicine (Colocrys) 0.6 mg PO DAILY [facility] Last Admin: 01/02/18 10:10 Dose: 0.6 mg Diltiazem HCl (Cardizem Cd) 240 mg PO DAILY [facility] Last Admin: 01/02/18 10:09 Dose: 240 mg Epoetin Jean Paul (Procrit) 10,000 unit SC MWF [facility] Last Admin: 01/02/18 10:41 Dose: 10,000 unit Piperacillin Sod/Tazobactam Sod (Zosyn 2.25 Gm Iv Premix) 2.25 gm in 50 mls @ 100 mls/hr IVPB Q8 [facility] PRN Reason: Protocol Last Admin: 01/02/18 22:44 Dose: 100 mls/hr Insulin Human Regular (Novolin R) 0 unit SC ACHS [facility] PRN Reason: Protocol Last Admin: 01/02/18 21:52 Dose: Not Given Levothyroxine Sodium (Synthroid) 150 mcg PO DAILY@0630 [facility] Last Admin: 01/02/18 05:39 Dose: 150 mcg Magnesium Oxide (Mag-Ox) 400 mg PO DAILY [facility] Last Admin: 01/02/18 13:26 Dose: 400 mg Montelukast Sodium (Singulair) 10 mg PO DAILY [facility] Last Admin: 01/02/18 10:09 Dose: 10 mg Nystatin (Nystatin Oral Susp) 5 ml PO QID [facility] Last Admin: 01/02/18 22:44 Dose: 5 ml Oxycodone/Acetaminophen (Percocet 5/325 Mg Tab) 1 tab PO Q6H PRN PRN Reason: Pain, severe (8-10) Stop: 01/05/18 15:01 Pantoprazole Sodium (Protonix Ec Tab) 40 mg PO DAILY [facility] Last Admin: 01/02/18 10:09 Dose: 40 mg Prednisone (Prednisone Tab) 5 mg PO DAILY [facility] Last Admin: 01/02/18 16:01 Dose: 5 mg Prednisone (Prednisone Tab) 20 mg PO DAILY [facility] Last Admin: 01/02/18 14:00 Dose: Not Given Fluticasone/Salmeterol (Advair Diskus 250/50) 1 puff INH RQ12 [facility] Last Admin: 01/02/18 19:21 Dose: Not Given Tacrolimus (Prograf Cap) 3 mg PO BID [facility] Last Admin: 01/02/18 18:23 Dose: 3 mg Tacrolimus (Prograf Cap) 0.5 mg PO DAILY [facility] Last Admin: 01/02/18 10:40 Dose: 0.5 mg - Labs Labs: 01/02/18 06:24 01/02/18 06:24 PT 13.0 SECONDS (9.7-12.2) H 12/27/17 21:37 INR 1.2 12/27/17 21:37 APTT 30 SECONDS (21-34) 12/27/17 21:37 - Constitutional Appears: No Acute Distress, Chronically Ill - Head Exam Head Exam: NORMOCEPHALIC - Eye Exam Eye Exam: Normal appearance Pupil Exam: NORMAL ACCOMODATION - ENT Exam ENT Exam: Normal Exam - Neck Exam Neck Exam: Normal Inspection - Respiratory Exam Respiratory Exam: Clear to Ausculation Bilateral, NORMAL BREATHING PATTERN - Cardiovascular Exam Cardiovascular Exam: Irregular Rhythm, Murmur - GI/Abdominal Exam GI & Abdominal Exam: Soft, Normal Bowel Sounds - Rectal Exam Rectal Exam: Deferred - Extremities Exam Extremities Exam: Normal Inspection - Back Exam Back Exam: NORMAL INSPECTION - Neurological Exam Neurological Exam: Alert, Awake, Oriented x3 - Psychiatric Exam Psychiatric exam: Normal Mood - Skin Skin Exam: Dry, Intact, Normal Color, Warm Assessment and Plan (1) Sepsis Assessment & Plan: To do FERNANDO to r/o infective endocarditis. Status: Acute (2) Severe sepsis Status: Acute (3) Atrial fibrillation with rapid ventricular response Status: Chronic
[2018-01-03] MEDS: Albuterol-Ipratrop 3 mg / 0.5 (3 ml) UD INH SCH ×3 (01:23→16:51)
[2018-01-03] MEDS: Levothyroxine 150 MCG TAB PO SCH (05:43)
[2018-01-03] MEDS: Piperacill/Tazo 2.25gm in Dex 2.25 GM/50 ML BAG IVPB SCH ×3 (05:44→21:24)
[2018-01-03] MEDS: (Novolin R) Insulin Human Regular 100 units/ml vial SC SCH ×4 (07:30→21:23)
[2018-01-03] MEDS: Fluticasone-Salmeterol 250-50mcg Diskus INH SCH ×2 (07:43→19:19)
[2018-01-03 07:47] LABS: ALB/GLOB RATIO 1.4 (1.0-2.1); ALBUMIN 3.8 g/dL (3.5-5.0); CALCIUM 9.2 mg/dl (8.6-10.4)
[2018-01-03] MEDS: Pantoprazole 40 mg EC Tab PO SCH (08:59)
[2018-01-03] MEDS: Magnesium Oxide 400 mg Tab UD PO SCH (08:59)
[2018-01-03] MEDS: Nystatin 100,000 Units/ml Oral Susp 5 ml UD PO SCH ×4 (08:59→21:24)
[2018-01-03] MEDS: diltiaZEM 240 mg/24 Hours CD Cap PO SCH (09:00)
--- NOTE | 2018-01-03 11:37 | CP.PCM.PN ---
Subjective - Date & Time of Evaluation Date of Evaluation: 01/03/18 Time of Evaluation: 09:00 - Subjective Subjective: await FERNANDO for d/c on IV antibiotics Objective - Vital Signs/Intake and Output Vital Signs (last 24 hours): Temp Pulse Resp BP Pulse Ox 98.3 F 95 H 20 137/73 95 01/03/18 07:30 01/03/18 07:30 01/03/18 07:30 01/03/18 07:30 01/03/18 07:30 - Medications Medications: Current Medications Acetaminophen (Tylenol 325mg Tab) 325 mg PO Q6 PRN PRN Reason: Fever >100.4 F Albuterol/Ipratropium (Duoneb 3 Mg/0.5 Mg (3 Ml) Ud) 3 ml INH Q8H [facility] Last Admin: 01/03/18 01:23 Dose: Not Given Calcium Carbonate (Oscal) 500 mg PO TID [facility] Last Admin: 01/03/18 08:59 Dose: 500 mg Colchicine (Colocrys) 0.6 mg PO DAILY [facility] Last Admin: 01/03/18 09:00 Dose: 0.6 mg Diltiazem HCl (Cardizem Cd) 240 mg PO DAILY [facility] Last Admin: 01/03/18 09:00 Dose: 240 mg Epoetin Jean Paul (Procrit) 10,000 unit SC MWF [facility] Last Admin: 01/02/18 10:41 Dose: 10,000 unit Piperacillin Sod/Tazobactam Sod (Zosyn 2.25 Gm Iv Premix) 2.25 gm in 50 mls @ 100 mls/hr IVPB Q8 [facility] PRN Reason: Protocol Last Admin: 01/03/18 05:44 Dose: 100 mls/hr Insulin Human Regular (Novolin R) 0 unit SC ACHS [facility] PRN Reason: Protocol Last Admin: 01/03/18 07:30 Dose: Not Given Levothyroxine Sodium (Synthroid) 150 mcg PO DAILY@0630 [facility] Last Admin: 01/03/18 05:43 Dose: 150 mcg Magnesium Oxide (Mag-Ox) 400 mg PO DAILY [facility] Last Admin: 01/03/18 08:59 Dose: 400 mg Montelukast Sodium (Singulair) 10 mg PO DAILY [facility] Last Admin: 01/03/18 09:06 Dose: 10 mg Nystatin (Nystatin Oral Susp) 5 ml PO QID [facility] Last Admin: 01/03/18 08:59 Dose: 5 ml Oxycodone/Acetaminophen (Percocet 5/325 Mg Tab) 1 tab PO Q6H PRN PRN Reason: Pain, severe (8-10) Stop: 01/05/18 15:01 Pantoprazole Sodium (Protonix Ec Tab) 40 mg PO DAILY [facility] Last Admin: 01/03/18 08:59 Dose: 40 mg Prednisone (Prednisone Tab) 5 mg PO DAILY [facility] Last Admin: 01/03/18 08:59 Dose: 5 mg Prednisone (Prednisone Tab) 20 mg PO DAILY [facility] Last Admin: 01/03/18 08:59 Dose: 20 mg Fluticasone/Salmeterol (Advair Diskus 250/50) 1 puff INH RQ12 [facility] Last Admin: 01/03/18 07:43 Dose: Not Given Tacrolimus (Prograf Cap) 3 mg PO BID [facility] Last Admin: 01/03/18 08:59 Dose: 3 mg Tacrolimus (Prograf Cap) 0.5 mg PO DAILY [facility] Last Admin: 01/03/18 09:00 Dose: 0.5 mg - Labs Labs: 01/02/18 06:24 01/03/18 07:17 PT 13.0 SECONDS (9.7-12.2) H 12/27/17 21:37 INR 1.2 12/27/17 21:37 APTT 30 SECONDS (21-34) 12/27/17 21:37 - Constitutional Appears: Non-toxic, Chronically Ill - Head Exam Head Exam: NORMOCEPHALIC - Eye Exam Eye Exam: PERRL - ENT Exam ENT Exam: Mucous Membranes Dry - Neck Exam Neck Exam: absent: Lymphadenopathy - Respiratory Exam Respiratory Exam: Decreased Breath Sounds - Cardiovascular Exam Cardiovascular Exam: REGULAR RHYTHM - GI/Abdominal Exam GI & Abdominal Exam: Distended - Rectal Exam Rectal Exam: Deferred - Exam Exam: NORMAL INSPECTION Assessment and Plan (1) Atrial fibrillation with rapid ventricular response Status: Chronic (2) Cardiomyopathy Status: Acute (3) Chronic kidney disease, stage III (moderate) Status: Acute (4) Gout Status: Acute (5) History of kidney transplant Status: Acute (6) Sepsis Status: Acute (7) Severe sepsis Status: Acute (8) Bronchiectasis with acute exacerbation Status: Acute (9) COPD bronchitis Status: Acute (10) Chest pain Status: Acute (11) Fever Status: Acute
--- NOTE | 2018-01-03 13:18 | CP.PCM.PN ---
Subjective - Date & Time of Evaluation Date of Evaluation: 01/03/18 Time of Evaluation: 13:16 - Subjective Subjective: seen and examiend on iv antibiotics left knee swelling improved no f/c/sob/cp/abd pain/n/v/d/dysuria/heamturia Objective - Vital Signs/Intake and Output Vital Signs (last 24 hours): Temp Pulse Resp BP Pulse Ox 98.3 F 95 H 20 137/73 95 01/03/18 07:30 01/03/18 07:30 01/03/18 07:30 01/03/18 07:30 01/03/18 07:30 - Medications Medications: Current Medications Acetaminophen (Tylenol 325mg Tab) 325 mg PO Q6 PRN PRN Reason: Fever >100.4 F Albuterol/Ipratropium (Duoneb 3 Mg/0.5 Mg (3 Ml) Ud) 3 ml INH Q8H [facility] Last Admin: 01/03/18 01:23 Dose: Not Given Calcium Carbonate (Oscal) 500 mg PO TID [facility] Last Admin: 01/03/18 13:00 Dose: 500 mg Colchicine (Colocrys) 0.6 mg PO DAILY [facility] Last Admin: 01/03/18 09:00 Dose: 0.6 mg Diltiazem HCl (Cardizem Cd) 240 mg PO DAILY [facility] Last Admin: 01/03/18 09:00 Dose: 240 mg Epoetin Jean Paul (Procrit) 10,000 unit SC MWF [facility] Last Admin: 01/02/18 10:41 Dose: 10,000 unit Piperacillin Sod/Tazobactam Sod (Zosyn 2.25 Gm Iv Premix) 2.25 gm in 50 mls @ 100 mls/hr IVPB Q8 [facility] PRN Reason: Protocol Last Admin: 01/03/18 05:44 Dose: 100 mls/hr Sodium Chloride (Sodium Chloride 0.9%) 1,000 mls @ 75 mls/hr IV .[id number] [facility] Insulin Human Regular (Novolin R) 0 unit SC ACHS [facility] PRN Reason: Protocol Last Admin: 01/03/18 12:00 Dose: Not Given Levothyroxine Sodium (Synthroid) 150 mcg PO DAILY@0630 [facility] Last Admin: 01/03/18 05:43 Dose: 150 mcg Magnesium Oxide (Mag-Ox) 400 mg PO DAILY [facility] Last Admin: 01/03/18 08:59 Dose: 400 mg Montelukast Sodium (Singulair) 10 mg PO DAILY [facility] Last Admin: 01/03/18 09:06 Dose: 10 mg Nystatin (Nystatin Oral Susp) 5 ml PO QID [facility] Last Admin: 01/03/18 13:00 Dose: 5 ml Oxycodone/Acetaminophen (Percocet 5/325 Mg Tab) 1 tab PO Q6H PRN PRN Reason: Pain, severe (8-10) Stop: 01/05/18 15:01 Pantoprazole Sodium (Protonix Ec Tab) 40 mg PO DAILY [facility] Last Admin: 01/03/18 08:59 Dose: 40 mg Prednisone (Prednisone Tab) 5 mg PO DAILY [facility] Last Admin: 01/03/18 08:59 Dose: 5 mg Prednisone (Prednisone Tab) 20 mg PO DAILY [facility] Last Admin: 01/03/18 08:59 Dose: 20 mg Fluticasone/Salmeterol (Advair Diskus 250/50) 1 puff INH RQ12 [facility] Last Admin: 01/03/18 07:43 Dose: Not Given Tacrolimus (Prograf Cap) 3 mg PO BID [facility] Last Admin: 01/03/18 08:59 Dose: 3 mg Tacrolimus (Prograf Cap) 0.5 mg PO DAILY [facility] Last Admin: 01/03/18 09:00 Dose: 0.5 mg - Labs Labs: 01/02/18 06:24 01/03/18 07:17 PT 13.0 SECONDS (9.7-12.2) H 12/27/17 21:37 INR 1.2 12/27/17 21:37 APTT 30 SECONDS (21-34) 12/27/17 21:37 - Constitutional Appears: No Acute Distress, Chronically Ill - Head Exam Head Exam: NORMAL INSPECTION, NORMOCEPHALIC - Eye Exam Eye Exam: Normal appearance, PERRL - ENT Exam ENT Exam: Mucous Membranes Moist, Normal Exam - Neck Exam Neck Exam: Full ROM, Normal Inspection - Respiratory Exam Respiratory Exam: Clear to Ausculation Bilateral, NORMAL BREATHING PATTERN - Cardiovascular Exam Cardiovascular Exam: REGULAR RHYTHM - GI/Abdominal Exam GI & Abdominal Exam: Distended, Soft - Extremities Exam Extremities Exam: Normal Inspection Additional comments: left knee swollen and tender - Neurological Exam Neurological Exam: Alert, Awake, Oriented x3 - Psychiatric Exam Psychiatric exam: Normal Affect, Normal Mood - Skin Skin Exam: Dry, Intact, Warm Assessment and Plan (1) Cardiomyopathy Status: Acute (2) Chronic kidney disease, stage III (moderate) Status: Acute (3) Gout Status: Acute (4) History of kidney transplant Status: Acute (5) Severe sepsis Status: Acute (6) Atrial fibrillation with rapid ventricular response Status: Chronic - Assessment and Plan (Free Text) Assessment: worsening renal function add iv fluids check ua transplant renal US ordered antibiotics per ID FERNANDO
--- NOTE | 2018-01-03 14:13 | US ---
PROCEDURE: Ultrasound right lower quadrant renal transplant HISTORY: renal transplant COMPARISON: . 12/04/2017. TECHNIQUE: Standard protocol for this study/examination. FINDINGS: Transplanted kidney in the right lower quadrant 4.7 x 5.3 x 10.3 cm Unremarkable appearance of the transplanted kidney without significant interval change. Nondiagnostic assessment of the urinary bladder common the patient voided immediately prior to the examination. The urinary bladder volume at the time of the study was 35.6 mL. IMPRESSION: Unremarkable renal transplant. Nondiagnostic assessment of the urinary bladder.
[2018-01-03] MEDS: Sodium Chloride 0.9% 1,000 ML IV SCH (14:25)
--- NOTE | 2018-01-03 19:26 | CP.PCM.PN ---
Subjective - Date & Time of Evaluation Date of Evaluation: 01/03/18 Time of Evaluation: 19:24 - Subjective Subjective: Patient has no complaint of SOB, chest pain, fever. Still on IV antibiotics. Objective - Vital Signs/Intake and Output Vital Signs (last 24 hours): Temp Pulse Resp BP Pulse Ox 98.6 F 99 H 20 106/49 L 100 01/03/18 15:00 01/03/18 16:00 01/03/18 15:00 01/03/18 15:00 01/03/18 15:00 Intake and Output: 01/03/18 01/04/18 18:59 06:59 Intake Total 450 Balance 450 - Medications Medications: Current Medications Acetaminophen (Tylenol 325mg Tab) 325 mg PO Q6 PRN PRN Reason: Fever >100.4 F Albuterol/Ipratropium (Duoneb 3 Mg/0.5 Mg (3 Ml) Ud) 3 ml INH Q8H [facility] Last Admin: 01/03/18 16:51 Dose: Not Given Calcium Carbonate (Oscal) 500 mg PO TID [facility] Last Admin: 01/03/18 17:57 Dose: 500 mg Colchicine (Colocrys) 0.6 mg PO DAILY [facility] Last Admin: 01/03/18 09:00 Dose: 0.6 mg Diltiazem HCl (Cardizem Cd) 240 mg PO DAILY [facility] Last Admin: 01/03/18 09:00 Dose: 240 mg Epoetin Jean Paul (Procrit) 10,000 unit SC MWF [facility] Last Admin: 01/02/18 10:41 Dose: 10,000 unit Piperacillin Sod/Tazobactam Sod (Zosyn 2.25 Gm Iv Premix) 2.25 gm in 50 mls @ 100 mls/hr IVPB Q8 [facility] PRN Reason: Protocol Last Admin: 01/03/18 13:18 Dose: 100 mls/hr Sodium Chloride (Sodium Chloride 0.9%) 1,000 mls @ 75 mls/hr IV .[id number] [facility] Last Admin: 01/03/18 14:25 Dose: 75 mls/hr Insulin Human Regular (Novolin R) 0 unit SC ACHS [facility] PRN Reason: Protocol Last Admin: 01/03/18 17:57 Dose: 3 units Levothyroxine Sodium (Synthroid) 150 mcg PO DAILY@0630 [facility] Last Admin: 01/03/18 05:43 Dose: 150 mcg Magnesium Oxide (Mag-Ox) 400 mg PO DAILY [facility] Last Admin: 01/03/18 08:59 Dose: 400 mg Montelukast Sodium (Singulair) 10 mg PO DAILY [facility] Last Admin: 01/03/18 09:06 Dose: 10 mg Nystatin (Nystatin Oral Susp) 5 ml PO QID [facility] Last Admin: 01/03/18 17:57 Dose: 5 ml Oxycodone/Acetaminophen (Percocet 5/325 Mg Tab) 1 tab PO Q6H PRN PRN Reason: Pain, severe (8-10) Stop: 01/05/18 15:01 Pantoprazole Sodium (Protonix Ec Tab) 40 mg PO DAILY [facility] Last Admin: 01/03/18 08:59 Dose: 40 mg Prednisone (Prednisone Tab) 5 mg PO DAILY [facility] Last Admin: 01/03/18 08:59 Dose: 5 mg Prednisone (Prednisone Tab) 20 mg PO DAILY [facility] Last Admin: 01/03/18 08:59 Dose: 20 mg Fluticasone/Salmeterol (Advair Diskus 250/50) 1 puff INH RQ12 [facility] Last Admin: 01/03/18 19:19 Dose: Not Given Tacrolimus (Prograf Cap) 0.5 mg PO DAILY [facility] Last Admin: 01/03/18 09:00 Dose: 0.5 mg Tacrolimus (Prograf Cap) 3 mg PO Q12H [facility] Last Admin: 01/03/18 18:49 Dose: 3 mg - Labs Labs: 01/02/18 06:24 01/03/18 07:17 PT 13.0 SECONDS (9.7-12.2) H 12/27/17 21:37 INR 1.2 12/27/17 21:37 APTT 30 SECONDS (21-34) 12/27/17 21:37 - Constitutional Appears: No Acute Distress, Chronically Ill - Head Exam Head Exam: NORMOCEPHALIC - Eye Exam Eye Exam: Normal appearance - ENT Exam ENT Exam: Normal Exam - Neck Exam Neck Exam: Normal Inspection - Respiratory Exam Respiratory Exam: Clear to Ausculation Bilateral Additional comments: Telemetry: RSR. - Cardiovascular Exam Cardiovascular Exam: REGULAR RHYTHM - GI/Abdominal Exam GI & Abdominal Exam: Soft, Normal Bowel Sounds - Rectal Exam Rectal Exam: Deferred - Extremities Exam Extremities Exam: Normal Inspection - Back Exam Back Exam: NORMAL INSPECTION - Neurological Exam Neurological Exam: Alert, Awake, Oriented x3 - Psychiatric Exam Psychiatric exam: Anxious - Skin Skin Exam: Dry, Intact, Normal Color Assessment and Plan (1) Sepsis Status: Acute (2) Severe sepsis Status: Acute (3) Atrial fibrillation with rapid ventricular response Status: Chronic
[2018-01-03 21:01] LABS: URINE BILIRUBIN NEGATIVE (NEGATIVE); URINE BLOOD NEGATIVE (NEGATIVE); URINE CLARITY Clear (Clear); URINE COLOR Straw (YELLOW); URINE GLUCOSE (UA) 3+ mg/dL (Normal); URINE LEUKOCYTE ESTERASE NEG Leu/uL (Negative); URINE PROTEIN 1+ mg/dL (NEGATIVE); URINE UROBILINOGEN NORMAL mg/dL (0.2-1.0)
[2018-01-04] MEDS: Albuterol-Ipratrop 3 mg / 0.5 (3 ml) UD INH SCH ×3 (00:10→16:02)
[2018-01-04] MEDS: Piperacill/Tazo 2.25gm in Dex 2.25 GM/50 ML BAG IVPB SCH ×3 (06:07→21:16)
[2018-01-04] MEDS: Levothyroxine 150 MCG TAB PO SCH (06:07)
[2018-01-04] MEDS: Sodium Chloride 0.9% 1,000 ML IV SCH ×3 (06:08→21:19)
[2018-01-04 06:44] LABS: ALB/GLOB RATIO 1.4 (1.0-2.1); ALBUMIN 3.8 g/dL (3.5-5.0); CALCIUM 9.1 mg/dl (8.6-10.4)
[2018-01-04] MEDS: Fluticasone-Salmeterol 250-50mcg Diskus INH SCH ×2 (07:44→20:36)
[2018-01-04] MEDS: (Novolin R) Insulin Human Regular 100 units/ml vial SC SCH ×4 (07:54→21:10)
[2018-01-04] MEDS ORDERED: Lidocaine Hydrochloride 10 ML INJ ONE (08:56)
--- NOTE | 2018-01-04 09:11 | PCM.SURG1 ---
Surgeon's Initial Post Op Note - Surgeon's Notes Surgeon: Garland Elizondo MD Acetylene Torch Operator: NONE Type of Anesthesia: Local Pre-Operative Diagnosis: ESRD, infection Operative Findings: Left AICD, left arm AVF, Central venous occlusion. Post-Operative Diagnosis: ESRD, infection Operation Performed: Dual lumen picc placed with tip in the subclavian vein. Unable to advance guidewire or picc into the SVC secondary to severely stenotic SVC. Specimen/Specimens Removed: None Estimated Blood Loss: EBL {In ML}: 3 Blood Products Given: N/A Drains Used: No Drains Post-Op Condition: Fair Date of Surgery/Procedure: 01/04/18 Time of Surgery/Procedure: 09:05
[2018-01-04] MEDS: diltiaZEM 240 mg/24 Hours CD Cap PO SCH (10:23)
[2018-01-04] MEDS: Pantoprazole 40 mg EC Tab PO SCH (10:23)
[2018-01-04] MEDS: Nystatin 100,000 Units/ml Oral Susp 5 ml UD PO SCH ×4 (10:23→21:17)
[2018-01-04] MEDS: Magnesium Oxide 400 mg Tab UD PO SCH (10:23)
[2018-01-04] MEDS: Epoetin Alfa 10,000 unit/ml Dialysis SC SCH (10:28)
--- NOTE | 2018-01-04 13:25 | SPECPROC ---
PROCEDURE: Date of procedure: 01/04/2018 Procedure: 1. Placement of a right arm PICC with ultrasound and fluoroscopic guidance, CPT 72995 2. PICC tip confirmation with spot radiograph and is in the superior vena cava Medications: 1 percent lidocaine Total Fluoro time: 1.15 minutes Radiation: 8 mGy EBL: 2 cc HISTORY: Infection requiring long-term IV antibiotics TECHNIQUE: Following informed consent and procedure time-out, the patient was placed supine on the interventional table and the right arm prepped and draped in the usual sterile fashion. Ultrasound showed a patent and compressible right brachial vein. After the skin was anesthetized with lidocaine, the brachial vein was accessed with micro micropuncture technique using ultrasound guidance. There was difficulty advancing guidewire centrally secondary to superior vena cava stenosis. The length of the dual-lumen 4 Divehi PICC was trimmed to 25 centimeters and advanced through a peel-away sheath. The PICC was position with tip of PICC confirm a spot radiograph the subclavian vein. The PICC was secured to the patient's skin. The PICC was flushed. A biopatch and sterile dressing was applied. IMPRESSION: Stenosis of the superior vena cava. Unable to place a PICC within the SVC. Midline dual-lumen PICC placed trimmed to 25 centimeter. Tip of the PICC is in the subclavian vein.
--- NOTE | 2018-01-04 14:21 | CP.PCM.PN ---
Subjective - Date & Time of Evaluation Date of Evaluation: 01/04/18 Time of Evaluation: 14:18 - Subjective Subjective: feels better now creat better at 1.9 FK levels still low PICC placed for IV ABs gout still bothersome despite meds on IV fluids- will continue as creat sl increased from baseline Objective - Vital Signs/Intake and Output Vital Signs (last 24 hours): Temp Pulse Resp BP Pulse Ox 98.0 F 95 H 18 157/85 H 100 01/04/18 07:00 01/04/18 08:51 01/04/18 07:00 01/04/18 07:00 01/04/18 07:00 Intake and Output: 01/04/18 01/04/18 06:59 18:59 Intake Total 1875 Balance 1875 - Medications Medications: Current Medications Acetaminophen (Tylenol 325mg Tab) 325 mg PO Q6 PRN PRN Reason: Fever >100.4 F Albuterol/Ipratropium (Duoneb 3 Mg/0.5 Mg (3 Ml) Ud) 3 ml INH Q8H [facility] Last Admin: 01/04/18 00:10 Dose: Not Given Calcium Carbonate (Oscal) 500 mg PO TID [facility] Last Admin: 01/04/18 13:16 Dose: 500 mg Colchicine (Colocrys) 0.6 mg PO DAILY [facility] Last Admin: 01/04/18 10:24 Dose: 0.6 mg Diltiazem HCl (Cardizem Cd) 240 mg PO DAILY [facility] Last Admin: 01/04/18 10:23 Dose: 240 mg Epoetin Jean Paul (Procrit) 10,000 unit SC MWF [facility] Last Admin: 01/04/18 10:28 Dose: 10,000 unit Piperacillin Sod/Tazobactam Sod (Zosyn 2.25 Gm Iv Premix) 2.25 gm in 50 mls @ 100 mls/hr IVPB Q8 [facility] PRN Reason: Protocol Last Admin: 01/04/18 13:16 Dose: 100 mls/hr Sodium Chloride (Sodium Chloride 0.9%) 1,000 mls @ 75 mls/hr IV .[id number] [facility] Last Admin: 01/04/18 06:08 Dose: 75 mls/hr Insulin Human Regular (Novolin R) 0 unit SC ACHS [facility] PRN Reason: Protocol Last Admin: 01/04/18 12:21 Dose: 1 units Levothyroxine Sodium (Synthroid) 150 mcg PO DAILY@0630 [facility] Last Admin: 01/04/18 06:07 Dose: 150 mcg Magnesium Oxide (Mag-Ox) 400 mg PO DAILY [facility] Last Admin: 01/04/18 10:23 Dose: 400 mg Montelukast Sodium (Singulair) 10 mg PO DAILY [facility] Last Admin: 01/04/18 10:24 Dose: 10 mg Nystatin (Nystatin Oral Susp) 5 ml PO QID [facility] Last Admin: 01/04/18 13:16 Dose: 5 ml Oxycodone/Acetaminophen (Percocet 5/325 Mg Tab) 1 tab PO Q6H PRN PRN Reason: Pain, severe (8-10) Stop: 01/05/18 15:01 Pantoprazole Sodium (Protonix Ec Tab) 40 mg PO DAILY [facility] Last Admin: 01/04/18 10:23 Dose: 40 mg Prednisone (Prednisone Tab) 5 mg PO DAILY [facility] Last Admin: 01/04/18 10:23 Dose: 5 mg Prednisone (Prednisone Tab) 20 mg PO DAILY [facility] Last Admin: 01/04/18 10:23 Dose: 20 mg Fluticasone/Salmeterol (Advair Diskus 250/50) 1 puff INH RQ12 [facility] Last Admin: 01/04/18 07:44 Dose: Not Given Tacrolimus (Prograf Cap) 3 mg PO Q12H [facility] Last Admin: 01/04/18 06:57 Dose: 3 mg Tacrolimus (Prograf Cap) 0.5 mg PO BID [facility] - Labs Labs: 01/02/18 06:24 01/04/18 06:21 PT 13.0 SECONDS (9.7-12.2) H 12/27/17 21:37 INR 1.2 12/27/17 21:37 APTT 30 SECONDS (21-34) 12/27/17 21:37 - Constitutional Appears: No Acute Distress, Chronically Ill - Head Exam Head Exam: ATRAUMATIC, NORMAL INSPECTION - Eye Exam Eye Exam: EOMI, Normal appearance - Neck Exam Neck Exam: Normal Inspection. absent: Tenderness - Respiratory Exam Respiratory Exam: Clear to Ausculation Bilateral, NORMAL BREATHING PATTERN - Cardiovascular Exam Cardiovascular Exam: REGULAR RHYTHM, +S1 - GI/Abdominal Exam GI & Abdominal Exam: Soft. absent: Tenderness - Extremities Exam Extremities Exam: Normal Inspection, Tenderness - Neurological Exam Neurological Exam: Alert, CN II-XII Intact - Skin Skin Exam: Dry, Warm Assessment and Plan (1) Chronic kidney disease, stage III (moderate) Status: Acute (2) History of kidney transplant Status: Acute (3) Cardiomyopathy Status: Acute (4) Sepsis Status: Acute (5) Gout Status: Acute (6) Atrial fibrillation with rapid ventricular response Status: Chronic - Assessment and Plan (Free Text) Plan: IV fluids increase tacro dose same treatment gout follow up chemistries
--- NOTE | 2018-01-04 15:28 | CP.PCM.PN ---
Subjective - Date & Time of Evaluation Date of Evaluation: 01/04/18 Time of Evaluation: 09:00 - Subjective Subjective: afeb on iv antibiotics picc line in place await FERNANDO Objective - Vital Signs/Intake and Output Vital Signs (last 24 hours): Temp Pulse Resp BP Pulse Ox 98.0 F 95 H 18 157/85 H 100 01/04/18 07:00 01/04/18 08:51 01/04/18 07:00 01/04/18 07:00 01/04/18 07:00 Intake and Output: 01/04/18 01/04/18 06:59 18:59 Intake Total 1875 Balance 1875 - Medications Medications: Current Medications Acetaminophen (Tylenol 325mg Tab) 325 mg PO Q6 PRN PRN Reason: Fever >100.4 F Albuterol/Ipratropium (Duoneb 3 Mg/0.5 Mg (3 Ml) Ud) 3 ml INH Q8H [facility] Last Admin: 01/04/18 00:10 Dose: Not Given Calcium Carbonate (Oscal) 500 mg PO DAILY [facility] Colchicine (Colocrys) 0.6 mg PO DAILY [facility] Last Admin: 01/04/18 10:24 Dose: 0.6 mg Diltiazem HCl (Cardizem Cd) 240 mg PO DAILY [facility] Last Admin: 01/04/18 10:23 Dose: 240 mg Epoetin Jean Paul (Procrit) 10,000 unit SC MWF [facility] Last Admin: 01/04/18 10:28 Dose: 10,000 unit Piperacillin Sod/Tazobactam Sod (Zosyn 2.25 Gm Iv Premix) 2.25 gm in 50 mls @ 100 mls/hr IVPB Q8 [facility] PRN Reason: Protocol Last Admin: 01/04/18 13:16 Dose: 100 mls/hr Sodium Chloride (Sodium Chloride 0.9%) 1,000 mls @ 75 mls/hr IV .[id number] [facility] Last Admin: 01/04/18 06:08 Dose: 75 mls/hr Insulin Human Regular (Novolin R) 0 unit SC ACHS [facility] PRN Reason: Protocol Last Admin: 01/04/18 12:21 Dose: 1 units Levothyroxine Sodium (Synthroid) 150 mcg PO DAILY@0630 [facility] Last Admin: 01/04/18 06:07 Dose: 150 mcg Magnesium Oxide (Mag-Ox) 400 mg PO DAILY [facility] Last Admin: 01/04/18 10:23 Dose: 400 mg Montelukast Sodium (Singulair) 10 mg PO DAILY [facility] Last Admin: 01/04/18 10:24 Dose: 10 mg Nystatin (Nystatin Oral Susp) 5 ml PO QID [facility] Last Admin: 01/04/18 13:16 Dose: 5 ml Oxycodone/Acetaminophen (Percocet 5/325 Mg Tab) 1 tab PO Q6H PRN PRN Reason: Pain, severe (8-10) Stop: 01/05/18 15:01 Pantoprazole Sodium (Protonix Ec Tab) 40 mg PO DAILY [facility] Last Admin: 01/04/18 10:23 Dose: 40 mg Prednisone (Prednisone Tab) 5 mg PO DAILY [facility] Last Admin: 01/04/18 10:23 Dose: 5 mg Prednisone (Prednisone Tab) 20 mg PO DAILY [facility] Last Admin: 01/04/18 10:23 Dose: 20 mg Fluticasone/Salmeterol (Advair Diskus 250/50) 1 puff INH RQ12 [facility] Last Admin: 01/04/18 07:44 Dose: Not Given Tacrolimus (Prograf Cap) 3 mg PO Q12H [facility] Last Admin: 01/04/18 06:57 Dose: 3 mg Tacrolimus (Prograf Cap) 0.5 mg PO BID [facility] - Labs Labs: 01/02/18 06:24 01/04/18 06:21 PT 13.0 SECONDS (9.7-12.2) H 12/27/17 21:37 INR 1.2 12/27/17 21:37 APTT 30 SECONDS (21-34) 12/27/17 21:37 - Constitutional Appears: Non-toxic, Chronically Ill - Head Exam Head Exam: NORMOCEPHALIC - ENT Exam ENT Exam: Mucous Membranes Dry - Neck Exam Neck Exam: absent: Lymphadenopathy - Respiratory Exam Respiratory Exam: Decreased Breath Sounds, Clear to Ausculation Bilateral - Cardiovascular Exam Cardiovascular Exam: REGULAR RHYTHM - GI/Abdominal Exam GI & Abdominal Exam: Distended, Soft - Rectal Exam Rectal Exam: Deferred - Exam Exam: NORMAL INSPECTION Assessment and Plan (1) Atrial fibrillation with rapid ventricular response Status: Chronic (2) Cardiomyopathy Status: Acute (3) Chronic kidney disease, stage III (moderate) Status: Acute (4) Gout Status: Acute (5) History of kidney transplant Status: Acute (6) Sepsis Status: Acute (7) Severe sepsis Status: Acute (8) Bronchiectasis with acute exacerbation Status: Acute (9) COPD bronchitis Status: Acute (10) Chest pain Status: Acute (11) Fever Status: Acute
[2018-01-04 16:55] VITALS: RESP 20
--- NOTE | 2018-01-04 20:45 | CP.PCM.PN ---
Subjective - Date & Time of Evaluation Date of Evaluation: 01/04/18 Time of Evaluation: 14:00 - Subjective Subjective: Patient has no complaint. Had PICC line inserted today. For a FERNANDO in AM. Objective - Vital Signs/Intake and Output Vital Signs (last 24 hours): Temp Pulse Resp BP Pulse Ox 97.7 F 96 H 20 111/46 L 100 01/04/18 15:00 01/04/18 15:15 01/04/18 15:00 01/04/18 15:00 01/04/18 15:00 - Medications Medications: Current Medications Acetaminophen (Tylenol 325mg Tab) 325 mg PO Q6 PRN PRN Reason: Fever >100.4 F Albuterol/Ipratropium (Duoneb 3 Mg/0.5 Mg (3 Ml) Ud) 3 ml INH Q8H [facility] Last Admin: 01/04/18 16:02 Dose: Not Given Calcium Carbonate (Oscal) 500 mg PO DAILY [facility] Colchicine (Colocrys) 0.6 mg PO DAILY [facility] Last Admin: 01/04/18 10:24 Dose: 0.6 mg Diltiazem HCl (Cardizem Cd) 240 mg PO DAILY [facility] Last Admin: 01/04/18 10:23 Dose: 240 mg Epoetin Jean Paul (Procrit) 10,000 unit SC MWF [facility] Last Admin: 01/04/18 10:28 Dose: 10,000 unit Piperacillin Sod/Tazobactam Sod (Zosyn 2.25 Gm Iv Premix) 2.25 gm in 50 mls @ 100 mls/hr IVPB Q8 [facility] PRN Reason: Protocol Last Admin: 01/04/18 13:16 Dose: 100 mls/hr Sodium Chloride (Sodium Chloride 0.9%) 1,000 mls @ 75 mls/hr IV .[id number] [facility] Last Admin: 01/04/18 16:20 Dose: Not Given Insulin Human Regular (Novolin R) 0 unit SC ACHS [facility] PRN Reason: Protocol Last Admin: 01/04/18 17:00 Dose: 4 units Levothyroxine Sodium (Synthroid) 150 mcg PO DAILY@0630 [facility] Last Admin: 01/04/18 06:07 Dose: 150 mcg Magnesium Oxide (Mag-Ox) 400 mg PO DAILY [facility] Last Admin: 01/04/18 10:23 Dose: 400 mg Montelukast Sodium (Singulair) 10 mg PO DAILY [facility] Last Admin: 01/04/18 10:24 Dose: 10 mg Nystatin (Nystatin Oral Susp) 5 ml PO QID [facility] Last Admin: 01/04/18 17:05 Dose: 5 ml Oxycodone/Acetaminophen (Percocet 5/325 Mg Tab) 1 tab PO Q6H PRN PRN Reason: Pain, severe (8-10) Stop: 01/05/18 15:01 Pantoprazole Sodium (Protonix Ec Tab) 40 mg PO DAILY [facility] Last Admin: 01/04/18 10:23 Dose: 40 mg Prednisone (Prednisone Tab) 5 mg PO DAILY [facility] Last Admin: 01/04/18 10:23 Dose: 5 mg Prednisone (Prednisone Tab) 20 mg PO DAILY [facility] Last Admin: 01/04/18 10:23 Dose: 20 mg Fluticasone/Salmeterol (Advair Diskus 250/50) 1 puff INH RQ12 [facility] Last Admin: 01/04/18 20:36 Dose: Not Given Tacrolimus (Prograf Cap) 3 mg PO Q12H [facility] Last Admin: 01/04/18 19:09 Dose: 3 mg Tacrolimus (Prograf Cap) 0.5 mg PO BID [facility] Last Admin: 01/04/18 17:37 Dose: 0.5 mg - Labs Labs: 01/02/18 06:24 01/04/18 06:21 PT 13.0 SECONDS (9.7-12.2) H 12/27/17 21:37 INR 1.2 12/27/17 21:37 APTT 30 SECONDS (21-34) 12/27/17 21:37 - Constitutional Appears: No Acute Distress, Chronically Ill - Head Exam Head Exam: NORMAL INSPECTION - Eye Exam Eye Exam: Normal appearance - ENT Exam ENT Exam: Normal Exam - Neck Exam Neck Exam: Normal Inspection - Respiratory Exam Additional comments: Few rhonchi bibasilarly. - Cardiovascular Exam Cardiovascular Exam: REGULAR RHYTHM, Murmur - GI/Abdominal Exam GI & Abdominal Exam: Soft, Normal Bowel Sounds - Rectal Exam Rectal Exam: Deferred - Extremities Exam Extremities Exam: Normal Inspection - Back Exam Back Exam: NORMAL INSPECTION - Neurological Exam Neurological Exam: Alert, Awake, Oriented x3 - Psychiatric Exam Psychiatric exam: Anxious - Skin Skin Exam: Dry, Intact, Normal Color, Warm Assessment and Plan (1) Sepsis Status: Acute (2) Severe sepsis Status: Acute (3) Atrial fibrillation with rapid ventricular response Status: Chronic
[2018-01-05] MEDS: Albuterol-Ipratrop 3 mg / 0.5 (3 ml) UD INH SCH ×2 (00:46→08:01)
[2018-01-05] MEDS: Piperacill/Tazo 2.25gm in Dex 2.25 GM/50 ML BAG IVPB SCH (05:56)
[2018-01-05] MEDS: Sodium Chloride 0.9% 1,000 ML IV SCH ×2 (06:00→14:09)
[2018-01-05] MEDS: Levothyroxine 150 MCG TAB PO SCH (06:00)
[2018-01-05 06:44] LABS: HEMOGLOBIN 9.4 g/dL (12.0-18.0); MEAN CELL VOLUME 84.3 fL (80.0-94.0); MEAN CORPUSCULAR HEMOGLOBIN 27.2 pg (27.0-31.0); MEAN CORPUSCULAR HGB CONC 32.3 g/dL (33.0-37.0); MEAN PLATELET VOLUME 7.5 fL (7.2-11.7); RBC 3.43 Mil/uL (4.40-5.90); WHITE BLOOD COUNT 8.1 K/uL (4.8-10.8)
[2018-01-05 07:44] LABS: ALB/GLOB RATIO 1.3 (1.0-2.1); ALBUMIN 3.4 g/dL (3.5-5.0); ALT/SGPT 68 U/L (21-72); AST/SGOT 32 U/L (17-59); BLOOD UREA NITROGEN 24 mg/dL (9-20); CALCIUM 8.5 mg/dl (8.6-10.4); GFR AFRICAN-AMERICAN > 60; GFR NON-AFRICAN AMERICAN 54
[2018-01-05] MEDS: Fluticasone-Salmeterol 250-50mcg Diskus INH SCH (08:02)
[2018-01-05] MEDS ORDERED: Midazolam 2 MG/2 ML VIAL ONE (08:13)
[2018-01-05] MEDS ORDERED: Propofol 10 mg/ml Inj (20 ML) ONE (08:14)
[2018-01-05] MEDS: (Novolin R) Insulin Human Regular 100 units/ml vial SC SCH ×2 (08:15→13:14)
--- NOTE | 2018-01-05 10:50 | CP.PCM.PN ---
Subjective - Date & Time of Evaluation Date of Evaluation: 01/05/18 Time of Evaluation: 10:48 - Subjective Subjective: feels better FK level -5.6- good range now creat decreased to 1.3 gout controlled awaiting FERNANDO on IV ABs for bacteremia via PICC Objective - Vital Signs/Intake and Output Vital Signs (last 24 hours): Temp Pulse Resp BP Pulse Ox 97.8 F 79 20 139/77 97 01/05/18 10:09 01/05/18 10:09 01/05/18 10:09 01/05/18 10:09 01/05/18 10:09 Intake and Output: 01/05/18 01/05/18 06:59 18:59 Intake Total 1200 Balance 1200 - Medications Medications: Current Medications Acetaminophen (Tylenol 325mg Tab) 325 mg PO Q6 PRN PRN Reason: Fever >100.4 F Albuterol/Ipratropium (Duoneb 3 Mg/0.5 Mg (3 Ml) Ud) 3 ml INH RQ8 [facility] Last Admin: 01/05/18 08:01 Dose: Not Given Calcium Carbonate (Oscal) 500 mg PO DAILY [facility] Colchicine (Colocrys) 0.6 mg PO DAILY [facility] Last Admin: 01/04/18 10:24 Dose: 0.6 mg Diltiazem HCl (Cardizem Cd) 240 mg PO DAILY [facility] Last Admin: 01/04/18 10:23 Dose: 240 mg Epoetin Jean Paul (Procrit) 10,000 unit SC MWF [facility] Last Admin: 01/04/18 10:28 Dose: 10,000 unit Piperacillin Sod/Tazobactam Sod (Zosyn 2.25 Gm Iv Premix) 2.25 gm in 50 mls @ 100 mls/hr IVPB Q8 [facility] PRN Reason: Protocol Last Admin: 01/05/18 05:56 Dose: 100 mls/hr Sodium Chloride (Sodium Chloride 0.9%) 1,000 mls @ 75 mls/hr IV .[id number] [facility] Last Admin: 01/05/18 06:00 Dose: Not Given Insulin Human Regular (Novolin R) 0 unit SC ACHS [facility] PRN Reason: Protocol Last Admin: 01/05/18 08:15 Dose: Not Given Levothyroxine Sodium (Synthroid) 150 mcg PO DAILY@0630 [facility] Last Admin: 01/05/18 06:00 Dose: Not Given Magnesium Oxide (Mag-Ox) 400 mg PO DAILY [facility] Last Admin: 01/04/18 10:23 Dose: 400 mg Montelukast Sodium (Singulair) 10 mg PO DAILY [facility] Last Admin: 01/04/18 10:24 Dose: 10 mg Nystatin (Nystatin Oral Susp) 5 ml PO QID [facility] Last Admin: 01/04/18 21:17 Dose: 5 ml Oxycodone/Acetaminophen (Percocet 5/325 Mg Tab) 1 tab PO Q6H PRN PRN Reason: Pain, severe (8-10) Stop: 01/05/18 15:01 Pantoprazole Sodium (Protonix Ec Tab) 40 mg PO DAILY [facility] Last Admin: 01/04/18 10:23 Dose: 40 mg Prednisone (Prednisone Tab) 20 mg PO DAILY [facility] Last Admin: 01/04/18 10:23 Dose: 20 mg Fluticasone/Salmeterol (Advair Diskus 250/50) 1 puff INH RQ12 [facility] Last Admin: 01/05/18 08:02 Dose: Not Given Tacrolimus (Prograf Cap) 3 mg PO Q12H [facility] Last Admin: 01/05/18 06:01 Dose: Not Given Tacrolimus (Prograf Cap) 0.5 mg PO BID [facility] Last Admin: 01/04/18 17:37 Dose: 0.5 mg - Labs Labs: 01/05/18 06:34 01/05/18 06:34 PT 13.0 SECONDS (9.7-12.2) H 12/27/17 21:37 INR 1.2 12/27/17 21:37 APTT 30 SECONDS (21-34) 12/27/17 21:37 - Constitutional Appears: No Acute Distress, Chronically Ill - Head Exam Head Exam: ATRAUMATIC, NORMAL INSPECTION - Eye Exam Eye Exam: EOMI, Normal appearance - Neck Exam Neck Exam: Normal Inspection. absent: Tenderness - Respiratory Exam Respiratory Exam: Clear to Ausculation Bilateral, NORMAL BREATHING PATTERN - Cardiovascular Exam Cardiovascular Exam: REGULAR RHYTHM, +S1 - GI/Abdominal Exam GI & Abdominal Exam: Soft. absent: Tenderness - Extremities Exam Extremities Exam: Normal Inspection. absent: Tenderness - Neurological Exam Neurological Exam: Awake, CN II-XII Intact - Skin Skin Exam: Dry, Warm Assessment and Plan (1) Chronic kidney disease, stage III (moderate) Status: Acute (2) History of kidney transplant Status: Acute (3) Cardiomyopathy Status: Acute (4) Sepsis Status: Acute (5) Gout Status: Acute (6) Atrial fibrillation with rapid ventricular response Status: Chronic - Assessment and Plan (Free Text) Plan: FERNANDO IV ABs Same tacro dose taper prednisone
[2018-01-05] MEDS: Nystatin 100,000 Units/ml Oral Susp 5 ml UD PO SCH ×2 (11:00→14:16)
--- NOTE | 2018-01-05 12:18 | CP.PCM.PN ---
Subjective - Date & Time of Evaluation Date of Evaluation: 01/05/18 Time of Evaluation: 08:00 - Subjective Subjective: patient seen and examined. he has no new complaints. FERNANDO done this morning. Objective - Vital Signs/Intake and Output Vital Signs (last 24 hours): Temp Pulse Resp BP Pulse Ox 97.8 F 79 20 139/77 97 01/05/18 10:09 01/05/18 10:09 01/05/18 10:09 01/05/18 10:09 01/05/18 10:09 Intake and Output: 01/05/18 01/05/18 06:59 18:59 Intake Total 1200 Balance 1200 - Medications Medications: Current Medications Acetaminophen (Tylenol 325mg Tab) 325 mg PO Q6 PRN PRN Reason: Fever >100.4 F Albuterol/Ipratropium (Duoneb 3 Mg/0.5 Mg (3 Ml) Ud) 3 ml INH RQ8 [facility] Last Admin: 01/05/18 08:01 Dose: Not Given Calcium Carbonate (Oscal) 500 mg PO DAILY [facility] Colchicine (Colocrys) 0.6 mg PO DAILY [facility] Last Admin: 01/04/18 10:24 Dose: 0.6 mg Diltiazem HCl (Cardizem Cd) 240 mg PO DAILY [facility] Last Admin: 01/04/18 10:23 Dose: 240 mg Epoetin Jean Paul (Procrit) 10,000 unit SC MWF [facility] Last Admin: 01/04/18 10:28 Dose: 10,000 unit Sodium Chloride (Sodium Chloride 0.9%) 1,000 mls @ 75 mls/hr IV .[id number] [facility] Last Admin: 01/05/18 06:00 Dose: Not Given Ceftriaxone Sodium (Rocephin 2 Gm Ivpb) 2 gm in 100 mls @ 100 mls/hr IVPB Q24H [facility] PRN Reason: Protocol Insulin Human Regular (Novolin R) 0 unit SC ACHS [facility] PRN Reason: Protocol Last Admin: 01/05/18 08:15 Dose: Not Given Levothyroxine Sodium (Synthroid) 150 mcg PO DAILY@0630 [facility] Last Admin: 01/05/18 06:00 Dose: Not Given Magnesium Oxide (Mag-Ox) 400 mg PO DAILY [facility] Last Admin: 01/04/18 10:23 Dose: 400 mg Montelukast Sodium (Singulair) 10 mg PO DAILY [facility] Last Admin: 01/04/18 10:24 Dose: 10 mg Nystatin (Nystatin Oral Susp) 5 ml PO QID [facility] Last Admin: 01/04/18 21:17 Dose: 5 ml Oxycodone/Acetaminophen (Percocet 5/325 Mg Tab) 1 tab PO Q6H PRN PRN Reason: Pain, severe (8-10) Stop: 01/05/18 15:01 Pantoprazole Sodium (Protonix Ec Tab) 40 mg PO DAILY [facility] Last Admin: 01/04/18 10:23 Dose: 40 mg Prednisone (Prednisone Tab) 20 mg PO DAILY [facility] Last Admin: 01/04/18 10:23 Dose: 20 mg Fluticasone/Salmeterol (Advair Diskus 250/50) 1 puff INH RQ12 [facility] Last Admin: 01/05/18 08:02 Dose: Not Given Tacrolimus (Prograf Cap) 3 mg PO Q12H [facility] Last Admin: 01/05/18 06:01 Dose: Not Given Tacrolimus (Prograf Cap) 0.5 mg PO BID [facility] Last Admin: 01/04/18 17:37 Dose: 0.5 mg - Labs Labs: 01/05/18 06:34 01/05/18 06:34 PT 13.0 SECONDS (9.7-12.2) H 12/27/17 21:37 INR 1.2 12/27/17 21:37 APTT 30 SECONDS (21-34) 12/27/17 21:37 - Constitutional Appears: Well - Head Exam Head Exam: ATRAUMATIC, NORMAL INSPECTION - Eye Exam Eye Exam: Normal appearance, PERRL - ENT Exam ENT Exam: Normal Exam - Neck Exam Neck Exam: Full ROM - Respiratory Exam Respiratory Exam: Clear to Ausculation Bilateral - Cardiovascular Exam Cardiovascular Exam: Irregular Rhythm - GI/Abdominal Exam GI & Abdominal Exam: Normal Bowel Sounds - Exam External exam: NORMAL EXTERNAL EXAM - Extremities Exam Extremities Exam: Normal Inspection - Neurological Exam Neurological Exam: Alert, Awake, CN II-XII Intact - Psychiatric Exam Psychiatric exam: Normal Affect, Normal Mood - Skin Skin Exam: Normal Color Assessment and Plan (1) Sepsis Assessment & Plan: 1. Staph bacteremia: s/p PICC line insertion. pt is currently on Ceftriaxone per ID. s/p FERNANDO today with no evidence of infective endocarditis. Status: Acute (2) Severe sepsis Status: Acute (3) Atrial fibrillation with rapid ventricular response Status: Chronic
--- NOTE | 2018-01-05 12:33 | CP.PCM.PN ---
Subjective - Date & Time of Evaluation Date of Evaluation: 01/05/18 Time of Evaluation: 11:00 - Subjective Subjective: Patient seen today , denies any chest pain, sob, dizziness, fever, chills, N/V/d , states wants to go home today s/p FERNANDO - negative a febrile cr- improved and stable -1.3<1.9<2.2 wbc-8.1 s/p PICC line insertion 01/04/18 Objective - Vital Signs/Intake and Output Vital Signs (last 24 hours): Temp Pulse Resp BP Pulse Ox 97.8 F 79 20 139/77 97 01/05/18 10:09 01/05/18 10:09 01/05/18 10:09 01/05/18 10:09 01/05/18 10:09 Intake and Output: 01/05/18 01/05/18 06:59 18:59 Intake Total 1200 Balance 1200 - Medications Medications: Current Medications Acetaminophen (Tylenol 325mg Tab) 325 mg PO Q6 PRN PRN Reason: Fever >100.4 F Albuterol/Ipratropium (Duoneb 3 Mg/0.5 Mg (3 Ml) Ud) 3 ml INH RQ8 [facility] Last Admin: 01/05/18 08:01 Dose: Not Given Calcium Carbonate (Oscal) 500 mg PO DAILY [facility] Colchicine (Colocrys) 0.6 mg PO DAILY [facility] Last Admin: 01/04/18 10:24 Dose: 0.6 mg Diltiazem HCl (Cardizem Cd) 240 mg PO DAILY [facility] Last Admin: 01/04/18 10:23 Dose: 240 mg Epoetin Jean Paul (Procrit) 10,000 unit SC MWF [facility] Last Admin: 01/04/18 10:28 Dose: 10,000 unit Sodium Chloride (Sodium Chloride 0.9%) 1,000 mls @ 75 mls/hr IV .[id number] [facility] Last Admin: 01/05/18 06:00 Dose: Not Given Ceftriaxone Sodium (Rocephin 2 Gm Ivpb) 2 gm in 100 mls @ 100 mls/hr IVPB Q24H [facility] PRN Reason: Protocol Insulin Human Regular (Novolin R) 0 unit SC ACHS [facility] PRN Reason: Protocol Last Admin: 01/05/18 08:15 Dose: Not Given Levothyroxine Sodium (Synthroid) 150 mcg PO DAILY@0630 [facility] Last Admin: 01/05/18 06:00 Dose: Not Given Magnesium Oxide (Mag-Ox) 400 mg PO DAILY [facility] Last Admin: 01/04/18 10:23 Dose: 400 mg Montelukast Sodium (Singulair) 10 mg PO DAILY [facility] Last Admin: 01/04/18 10:24 Dose: 10 mg Nystatin (Nystatin Oral Susp) 5 ml PO QID [facility] Last Admin: 01/04/18 21:17 Dose: 5 ml Oxycodone/Acetaminophen (Percocet 5/325 Mg Tab) 1 tab PO Q6H PRN PRN Reason: Pain, severe (8-10) Stop: 01/05/18 15:01 Pantoprazole Sodium (Protonix Ec Tab) 40 mg PO DAILY [facility] Last Admin: 01/04/18 10:23 Dose: 40 mg Prednisone (Prednisone Tab) 20 mg PO DAILY [facility] Last Admin: 01/04/18 10:23 Dose: 20 mg Fluticasone/Salmeterol (Advair Diskus 250/50) 1 puff INH RQ12 [facility] Last Admin: 01/05/18 08:02 Dose: Not Given Tacrolimus (Prograf Cap) 3 mg PO Q12H [facility] Last Admin: 01/05/18 06:01 Dose: Not Given Tacrolimus (Prograf Cap) 0.5 mg PO BID [facility] Last Admin: 01/04/18 17:37 Dose: 0.5 mg - Labs Labs: 01/05/18 06:34 01/05/18 06:34 PT 13.0 SECONDS (9.7-12.2) H 12/27/17 21:37 INR 1.2 12/27/17 21:37 APTT 30 SECONDS (21-34) 12/27/17 21:37 Assessment and Plan - Assessment and Plan (Free Text) Assessment: A/P 72 yr old male with pmhx of Anemia, Arthritis Gout, Asthma, Atrial Fibrillation , Bronchitis, CAD , CHF, COPD, Diabetes (NIDDM), Emphysema, presented to [facility] ER with fever and chills and admitted with sepsis wbc- today - 8.1 blood culture- + on admission repeat blood culture- negative for 5 days Patient require antibiotics for 6 weeks for bacterimia and pt refused CESAR and insisted to go home with home infusion s/p FERNANDO- negative for endocarditis D/W patient regarding duration of antibiotics ( 5 weeks) and patient stated he had previous experience of home IV infusion in the past for 8 weeks and very comfortable to do at home also knows since patient wants home infusion , D/W Dr. Nash , recommends to continue rocephin 2 gm ivbp for 5 weeks CM arranged home infusion D/W Dr. Bradshaw , cleared for discharge home today and f/u wiht his office in 1 week 1st dose of rocephin given prior discharge and adverse reaction noted RX given for rocephin and lab work for home infusion company ,and lab work to be repeated q weekly and fax result to Dr. Nash an Rios. raad office All discharge plan including f/u vis t, medications and lab work while on rocephin discussed with patient in details , who understands and agrees with plan Pateint instructed to returns to ED if symptoms returns or any othe r concerning symptoms .
[2018-01-05] MEDS ORDERED: cefTRIAXone 2 GM IN NS 2 GM/100 ML BAG IVPB SCH (13:00)
[2018-01-05] MEDS: Pantoprazole 40 mg EC Tab PO SCH (14:16)
[2018-01-05] MEDS: Magnesium Oxide 400 mg Tab UD PO SCH (14:18)
[2018-01-05] MEDS: diltiaZEM 240 mg/24 Hours CD Cap PO SCH (14:18)
--- NOTE | 2018-01-05 15:20 | CP.PCM.DIS ---
Provider - Provider Date of Admission: 12/27/17 23:39 Attending physician: Reji Bradshaw MD Primary care physician: Penny Bradshaw M.D. Consults: Dr Todd Nash ( ID) Dr Srikanth Morrissey ( Nephrology ) Time Spent in preparation of Discharge (in minutes): 45 Diagnosis - Discharge Diagnosis (1) Sepsis Status: Acute (2) Severe sepsis Status: Acute (3) Atrial fibrillation with rapid ventricular response Status: Chronic Hospital Course - Lab Results Lab Results: Micro Results 12/31/17 10:41 Blood-Venous Blood Culture - Final NO GROWTH AFTER 5 DAYS 12/31/17 10:41 Blood-Venous Gram Stain - Final TEST NOT PERFORMED 12/31/17 10:41 Blood-Venous Blood Culture - Final NO GROWTH AFTER 5 DAYS 12/31/17 10:41 Blood-Venous Gram Stain - Final TEST NOT PERFORMED 12/28/17 05:58 Blood-Venous Blood Culture - Final NO GROWTH AFTER 5 DAYS 12/28/17 05:58 Blood-Venous Gram Stain - Final TEST NOT PERFORMED 12/31/17 15:19 Naris MRSA Culture - Final MRSA NOT DETECTED 12/30/17 15:32 Rectum Ova and Parasite Concentrate Exam - Final 12/28/17 05:58 Blood-Venous Blood Culture - Final Str.gallolyticus Pasteurian 12/28/17 05:58 Blood-Venous Gram Stain - Final 12/27/17 22:04 Blood S.aureus & Coag-Neg Staph PNA FISH - Final 12/27/17 22:04 Blood Blood Culture - Final Str.gallolyticus Pasteurian 12/27/17 22:04 Blood Gram Stain - Final 12/27/17 22:04 Blood Blood Culture - Final Str.gallolyticus Pasteurnemours foundation 12/27/17 22:04 Blood Gram Stain - Final 12/28/17 05:58 Nose MRSA Culture (Admit) - Final MRSA NOT DETECTED Most Recent Lab Values WBC 8.1 K/uL (4.8-10.8) 01/05/18 06:34 RBC 3.43 Mil/uL (4.40-5.90) L 01/05/18 06:34 Hgb 9.4 g/dL (12.0-18.0) L 01/05/18 06:34 Hct 28.9 % (35.0-51.0) L 01/05/18 06:34 MCV 84.3 fL (80.0-94.0) 01/05/18 06:34 MCH 27.2 pg (27.0-31.0) 01/05/18 06:34 MCHC 32.3 g/dL (33.0-37.0) L 01/05/18 06:34 RDW 18.0 % (11.5-14.5) H 01/05/18 06:34 Plt Count 211 K/uL (130-400) 01/05/18 06:34 MPV 7.5 fL (7.2-11.7) 01/05/18 06:34 Neut % (Auto) 85.9 % (50.0-75.0) H 01/02/18 06:24 Lymph % (Auto) 5.3 % (20.0-40.0) L 01/02/18 06:24 Marion % (Auto) 5.9 % (0.0-10.0) 01/02/18 06:24 Eos % (Auto) 2.4 % (0.0-4.0) 01/02/18 06:24 Baso % (Auto) 0.5 % (0.0-2.0) 01/02/18 06:24 Neut # (Auto) 7.3 K/uL (1.8-7.0) H 01/02/18 06:24 Lymph # (Auto) 0.4 K/uL (1.0-4.3) L 01/02/18 06:24 Marion # (Auto) 0.5 K/uL (0.0-0.8) 01/02/18 06:24 Eos # (Auto) 0.2 K/uL (0.0-0.7) 01/02/18 06:24 Baso # (Auto) 0.0 K/uL (0.0-0.2) 01/02/18 06:24 Neutrophils % (Manual) 85 % (50-75) H 01/02/18 06:24 Band Neutrophils % 2 % (0-2) 01/02/18 06:24 Lymphocytes % (Manual) 5 % (20-40) L 01/02/18 06:24 Monocytes % (Manual) 4 % (0-10) 01/02/18 06:24 Eosinophils % (Manual) 4 % (0-4) 01/02/18 06:24 Platelet Estimate Normal (NORMAL) 01/02/18 06:24 Large Platelets Present 12/28/17 05:56 Giant Platelets Present 12/28/17 05:56 Polychromasia Slight 01/01/18 07:48 Hypochromasia (manual) Slight 01/02/18 06:24 Poikilocytosis (manual Slight 01/01/18 07:48 Basophilic Stippling Slight 12/30/17 06:39 Anisocytosis (manual) Slight 01/02/18 06:24 Microcytosis (manual) Slight 01/01/18 07:48 Macrocytosis (manual) Slight 12/31/17 06:48 Spherocytes Slight 01/01/18 07:48 Tear Drop Cells Slight 01/01/18 07:48 Ovalocytes Slight 01/02/18 06:24 [place] Cells Slight 01/01/18 07:48 PT 13.0 SECONDS (9.7-12.2) H 12/27/17 21:37 INR 1.2 12/27/17 21:37 APTT 30 SECONDS (21-34) 12/27/17 21:37 pO2 48 mm/Hg (30-55) 12/28/17 00:25 VBG pH 7.47 (7.32-7.43) H 12/28/17 00:25 VBG pCO2 37 mmHg (40-60) L 12/28/17 00:25 VBG HCO3 27.1 mmol/L 12/28/17 00:25 VBG Total CO2 28.0 mmol/L (22-28) 12/28/17 00:25 VBG O2 Sat (Calc) 85.6 % (40-65) H 12/28/17 00:25 VBG Base Excess 3.2 mmol/L (0.0-2.0) H 12/28/17 00:25 VBG Potassium 2.8 mmol/L (3.6-5.2) L 12/28/17 00:25 Sodium 138.0 mmol/l (132-148) 12/28/17 00:25 Chloride 103.0 mmol/L (98-107) 12/28/17 00:25 Glucose 75 mg/dl (75-110) 12/28/17 00:25 Lactate 1.8 mmol/L (0.7-2.1) 12/28/17 00:25 Sodium 139 mmol/L (132-148) 01/05/18 06:34 Potassium 4.2 mmol/L (3.6-5.2) 01/05/18 06:34 Chloride 110 mmol/L (98-107) H 01/05/18 06:34 Carbon Dioxide 19 mmol/L (22-30) L 01/05/18 06:34 Anion Gap 14 (10-20) 01/05/18 06:34 BUN 24 mg/dL (9-20) H 01/05/18 06:34 Creatinine 1.3 mg/dL (0.8-1.5) 01/05/18 06:34 Est GFR ( Amer) > 60 01/05/18 06:34 Est GFR (Non-Af Amer) 54 01/05/18 06:34 POC Glucose (mg/dL) 186 mg/dL (65-110) H 01/05/18 11:10 Random Glucose 106 mg/dL (75-110) 01/05/18 06:34 Hemoglobin A1c 6.7 % (4.2-6.5) H 12/28/17 08:48 Uric Acid 4.0 mg/dL (3.5-8.5) 12/28/17 08:48 Calcium 8.5 mg/dl (8.6-10.4) L 01/05/18 06:34 Phosphorus 2.3 mg/dL (2.5-4.5) L 01/05/18 06:34 Magnesium 1.3 mg/dL (1.6-2.3) L 01/05/18 06:34 Total Bilirubin 0.4 mg/dL (0.2-1.3) 01/05/18 06:34 AST 32 U/L (17-59) 01/05/18 06:34 ALT 68 U/L (21-72) 01/05/18 06:34 Alkaline Phosphatase 78 U/L (38-126) 01/05/18 06:34 Total Creatine Kinase < 20 U/L (55-170) L 12/28/17 05:56 CK-MB (Mass) 0.90 ng/mL (0.0-3.38) 12/28/17 08:48 Troponin I 0.2110 ng/mL (0.00-0.120) H* 12/28/17 08:48 NT-Pro-B Natriuret Pep 7190 pg/mL (0-900) H 12/27/17 21:37 Total Protein 5.9 g/dL (6.3-8.3) L 01/05/18 06:34 Albumin 3.4 g/dL (3.5-5.0) L 01/05/18 06:34 Globulin 2.5 gm/dL (2.2-3.9) 01/05/18 06:34 Albumin/Globulin Ratio 1.3 (1.0-2.1) 01/05/18 06:34 Procalcitonin 4.79 NG/ML (0.19-0.49) H 12/28/17 05:56 Free T4 1.80 ng/dL (0.78-2.19) 12/28/17 08:48 TSH 3rd Generation 13.10 mIU/L (0.46-4.68) H 12/28/17 08:48 PTH Intact Whole Molec 104 pg/mL (14-64) H 12/31/17 06:48 Venous Blood Potassium 2.8 mmol/L (3.6-5.2) L 12/28/17 00:25 Urine Color Straw (YELLOW) 01/03/18 20:49 Urine Clarity Clear (Clear) 01/03/18 20:49 Urine pH 5.0 (5.0-8.0) 01/03/18 20:49 Ur Specific [place] 1.013 (1.003-1.030) 01/03/18 20:49 Urine Protein 1+ mg/dL (NEGATIVE) H 01/03/18 20:49 Urine Glucose (UA) 3+ mg/dL (Normal) H 01/03/18 20:49 Urine Ketones Negative mg/dL (NEGATIVE) 01/03/18 20:49 Urine Blood Negative (NEGATIVE) 01/03/18 20:49 Urine Nitrate Negative (NEGATIVE) 01/03/18 20:49 Urine Bilirubin Negative (NEGATIVE) 01/03/18 20:49 Urine Urobilinogen Normal mg/dL (0.2-1.0) 01/03/18 20:49 Ur Leukocyte Esterase Neg Vicente/uL (Negative) 01/03/18 20:49 Urine WBC (Auto) < 1 /hpf (0-5) 01/03/18 20:49 Urine RBC (Auto) < 1 /hpf (0-3) 01/03/18 20:49 Stool Occult Blood Positive (NEGATIVE) H 12/28/17 12:47 Vancomycin Trough < 5.0 ug/mL (5.0-10.0) L 12/30/17 06:40 Tacrolimus (LC/MS/MS) 5.2 mcg/L (5.0-20.0) 01/03/18 07:17 B-Hydroxybutyrate 0.10 mM (0.02-0.27) 12/27/17 21:37 - Hospital Course Hospital Course: 72 years old male was brought to [facility] ED because of high fever and chills for the past 2 days. Recently discharged from [facility] for a rectal bleeding , he denies any cough, any abdominal pain, any burning micturation. He is known to have a hypertrophic cardiomyopathy with an ICD, a COPD, a HPTN, a NIDDM, a s/ p renal transplant, a hypothyroidism, an intermittent atrial fibrillation. His WBC was 23,000 with 17 Bands and 80 PMN. BUN: 44 creatinine 1.7 Hgb A1C: 6.7 TNI: 0.1540 TSH: 13.10. A CXR revealed diffuse, chronic interstitial disease. A left knee XR disclosed moderate effusion. CT scan of the chest, abdomen and pelvis revealed RUL air bronchogram, sludge in the gallbladder, atrophic kidneys and a transplanted kidney in the right pelvis. He was given IVF, IV Vancomycin and IV Zosyn and monitored in ICU for sepsis, dehydration. Hospital course: The patient responded well and quickly to to the antibiotics. He became afebrile the next day. Blood cultures grew [facility] lyticus Ss. Pasteurian sensitive to Penicillin. This is the same bacteria that grew in is blood a few months ago at [facility]. His antibiotic was switched to Rocephin by Dr Nash ( ID). His serum Tacrolimus was 3.[address] Morrissey increase his Tacrolimus dose to 5mg PO qd. He continue to improve. He was transferred to Telemetry floor on 12/29/2017. His appetite was good. He underwent a PICC line insertion on 01/04/2018 and a FERNANDO on 01/05/2018 which failed to show any vegetation. He was discharged home on 01/05/2018 in a stable condition. He will continue Rocephin 2 g IV for 5 more days and have a follow up with Dr Nash at that time. - Date & Time of H&P Date of H&P: 12/28/17 Discharge Exam - Head Exam Head Exam: ATRAUMATIC, NORMAL INSPECTION - Eye Exam Eye Exam: Normal appearance Pupil Exam: NORMAL ACCOMODATION - ENT Exam ENT Exam: Normal Exam - Neck Exam Neck exam: Normal Inspection - Respiratory Exam Respiratory Exam: Clear to PA & Lateral, NORMAL BREATHING PATTERN - Cardiovascular Exam Cardiovascular Exam: REGULAR RHYTHM, Systolic Murmur - GI/Abdominal Exam GI & Abdominal Exam: Normal Bowel Sounds, Soft - Rectal Exam Rectal Exam: Deferred - Exam Exam: NORMAL INSPECTION - Extremities Exam Extremities exam: normal inspection - Back Exam Back exam: NORMAL INSPECTION - Psychiatric Exam Psychiatric exam: Anxious - Skin Skin Exam: Dry, Intact, Normal Color, Warm Discharge Plan - Discharge Medications Prescriptions: cefTRIAXone [Rocephin] 2 gm IV DAILY 35 Days #35 vial - Follow Up Plan Condition: STABLE Disposition: HOME/ ROUTINE Instructions: Heart Healthy Diet, Atrial Fibrillation (DC), Coronary Heart Disease (DC), Peripherally-Inserted Central Catheter (DC) Additional Instructions: Please f/u with Dr. Morrissey office in 1 week - call and make appointment Rocephin 2 gm IVBP daily x 5 weeks -Home infusion company will deliver medications and RN visit your home- Instruction and rx given to home infusion company - ( medication and lab work ) resume all your home medications Any questions please call Dr. Bradshaw office Clinical Quality Measures - CQM - Heart Failure Will be discharged to: Home Follow Up Date (must be within 7 days from discharge): 01/11/18 (Dr Nash) Follow Up Time: 09:00 - Date & Time of Discharge Summary Date of Discharge Summary: 01/05/18 Time of Discharge Summary: 15:53
[2018-01-05 15:52] VITALS: BP 182/83; PULSE 77; TEMP 97.4; O2SAT 100
== END 2018-01-05 16:33 | disposition home or self-care (01) | DRG 871 ==
LOC: C.ER 21:01 → C.9I 23:39 → C.6T 12-31 14:53
PROVIDERS: ADMIT Internal Medicine Cardiovascular Disease; ATTEND Internal Medicine Cardiovascular Disease
PROC: 02HV33Z Insertion of Infusion Device into Superior Vena Cava, Percutaneous Approach (ICD-10-PCS; principal; 2018-01-04)
DX: A40.8 Other streptococcal sepsis (principal); I21.4 Non-ST elevation (NSTEMI) myocardial infarction; J18.9 Pneumonia, unspecified organism; I13.2 Hypertensive heart and chronic kidney disease with heart failure and with stage 5 chronic kidney disease, or end stage renal disease; I42.2 Other hypertrophic cardiomyopathy; M00.9 Pyogenic arthritis, unspecified; Z94.0 Kidney transplant status; I47.2 Ventricular tachycardia; I13.0 Hypertensive heart and chronic kidney disease with heart failure and stage 1 through stage 4 chronic kidney disease, or unspecified chronic kidney disease; J47.1 Bronchiectasis with (acute) exacerbation; D64.9 Anemia, unspecified; R65.20 Severe sepsis without septic shock; E03.9 Hypothyroidism, unspecified; E11.22 Type 2 diabetes mellitus with diabetic chronic kidney disease; E78.00 Pure hypercholesterolemia, unspecified; E86.0 Dehydration; I25.10 Atherosclerotic heart disease of native coronary artery without angina pectoris; I48.91 Unspecified atrial fibrillation; I50.9 Heart failure, unspecified; Z87.891 Personal history of nicotine dependence; Z88.0 Allergy status to penicillin; Z85.038 Personal history of other malignant neoplasm of large intestine; M10.9 Gout, unspecified; N18.3 Chronic kidney disease, stage 3 (moderate); Z95.810 Presence of automatic (implantable) cardiac defibrillator; Z79.4 Long term (current) use of insulin

== ENCOUNTER 2018-02-01 11:10 | Inpatient (IN) | payer MEDICARE, BC ==
[2018-02-01 11:10] VITALS: BMI 26.3
[2018-02-01] MEDS ORDERED: Sodium Chloride 0.9% 1,000 ML IV ONE (11:33)
--- NOTE | 2018-02-01 11:44 | C.PDOC ---
History Of Present Illness 72 y/o male with history of Sepsis, DM, HTN presents to ED with c/o fever, left knee pain and swelling for 2 weeks. Patient has picc line on right upper arm secondary to home antibiotics. At ED patient O2 stat is low, put on oxygen and admits he is on oxygen at home. Patient admits to vomiting and denies chest pain , sob or any other complaints at this time. Time Seen by Provider: 02/01/18 11:17 Chief Complaint (Nursing): Fever History Per: Patient History/Exam Limitations: no limitations Onset/Duration Of Symptoms: Days Current Symptoms Are (Timing): Still Present Past Medical History Reviewed: Historical Data, Nursing Documentation, Vital Signs Vital Signs: Last Vital Signs Temp 98.3 F 02/01/18 14:31 Pulse 89 02/01/18 14:31 Resp 18 02/01/18 14:31 BP 121/65 02/01/18 14:31 Pulse Ox 99 02/01/18 14:31 - Medical History PMH: Anemia, Arthritis (Gout), Asthma, Atrial Fibrillation, Bronchitis, CAD ( CARDIOMYOPATHY), Cardia Arrhythmia, CHF, COPD (Emphysema,), Diabetes (NIDDM), Emphysema, Gastritis, Gastrointestinal Ulcer, HTN, Hypercholesterolemia, Hypothyroidism, Pneumonia, End Stage Renal Disease, Chronic Kidney Disease (s/p renal transplant) Surgical History: Pacemaker (Patient has a ISSH with ventricular tachycardia and an ICD.) - Kuli Kuli Procedures C.A.T. SCAN OF THORAX (02/06/13) CLOSED [PERCUTANEOUS] [NEEDLE] BIOPSY OF LUNG (02/06/13) COLONOSCOPY (08/17/06) ENDOSC POLYPECTOMY OF LG INTEST (01/01/15) ESOPHAGOGASTRODUODENOSCOPY [EGD] W/CLOSED BIOPSY (01/01/15) INSERTION OF INFUSION DEV INTO SUP VENA CAVA, PERC APPROACH (12/27/17) NAIL REMOVAL (12/31/13) PACKED CELL TRANSFUSION (01/01/15) ULTRASONOGRAPHY OF HEART WITH AORTA, TRANSESOPHAGEAL (12/27/17) Family History: States: No Known Family Hx - Social History Hx Tobacco Use: No Hx Alcohol Use: Yes (occasionally) Hx Substance Use: No - Immunization History Hx Tetanus Toxoid Vaccination: Yes Hx Influenza Vaccination: Yes Hx Pneumococcal Vaccination: Yes Review Of Systems Constitutional: Positive for: Fever. Negative for: Chills Gastrointestinal: Negative for: Nausea, Vomiting Musculoskeletal: Positive for: Leg Pain (and swelling) Skin: Negative for: Rash Neurological: Negative for: Numbness Physical Exam - Physical Exam Appears: Non-toxic, No Acute Distress, Other (lethargic but answering to questions properly) Skin: Warm, Dry, No Rash Head: Atraumatic, Normacephalic Eye(s): bilateral: Normal Inspection Oral Mucosa: Moist Neck: Normal ROM, Supple Cardiovascular: Rhythm Regular Respiratory: Normal Breath Sounds, No Rales, No Rhonchi, No Wheezing Gastrointestinal/Abdominal: Soft, No Tenderness, No Guarding, No Rebound Back: No CVA Tenderness Neurological/Psych: Oriented x3, Normal Speech, Normal Cognition ED Course And Treatment - Laboratory Results Result Diagrams: 02/01/18 12:15 02/01/18 12:15 Lab Interpretation: Abnormal ECG: Interpreted By Me ECG Rhythm: Sinus Tachycardia, ST/T Changes ECG Interpretation: Abnormal Rate From EC O2 Sat by Pulse Oximetry: 90 (RA) Pulse Ox Interpretation: Abnormal - Radiology CXR: Interpreted by Me CXR Interpretation: Yes: No Acute Disease Progress Note: Treated with IVF NSS. Call placed to Dr Nash (ID) Reassessment Condition: Unchanged - Physician Consult Information Physician Contacted: Penny Bradshaw Outcome Of Conversation: admit Disposition Discussed With : Penny Bradshaw Doctor Will See Patient In The: Hospital - Disposition Disposition: HOSPITALIZED Disposition Time: 14:00 Condition: GUARDED - POA Present On Arrival: None - Clinical Impression Clinical Impression: Fever, Renal insufficiency, Status post kidney transplant, HTN (hypertension) - PA / CORE BLOWER OPERATOR / Resident Statement MD/DO has reviewed & agrees with the documentation as recorded. - Scribe Statement The provider has reviewed the documentation as recorded by the Pedro Constantino All medical record entries made by the Pedro were at my direction and personally dictated by me. I have reviewed the chart and agree that the record accurately reflects my personal performance of the history, physical exam, medical decision making, and the department course for this patient. I have also personally directed, reviewed, and agree with the discharge instructions and disposition. Decision To Admit - Pt Status Changed To: Hospital Disposition Of: Inpatient - Admit Certification Admit to Inpatient:: After my assessment, the patient will require hospitalization for at least two midnights. This is because of the severity of symptoms shown, intensity of services needed, and/or the medical risk in this patient being treated as an outpatient. - InPatient: Physician Admission Certification:: Sepsis. Renal transplant - . Bed Request Type: Telemetry Admitting Physician: Penny Bradshaw Patient Diagnosis: Fever, Renal insufficiency, Status post kidney transplant, HTN (hypertension)
--- NOTE | 2018-02-01 12:00 | RAD ---
Date of service: 02/01/2018 HISTORY: Sepsis Patient COMPARISON: Chest radiograph dated 12/27/2017. FINDINGS: LUNGS: Stable chronic prominence of the bilateral interstitial markings with right apical pleural parenchymal scarring/bronchiectasis. PLEURA: No significant pleural effusion identified, no pneumothorax apparent. CARDIOVASCULAR: Left subclavian access AICD/ pacemaker. Atherosclerotic aortic calcifications. Cardiomediastinal silhouette stably enlarged. OSSEOUS STRUCTURES: Unchanged. VISUALIZED UPPER ABDOMEN: Normal. OTHER FINDINGS: None. IMPRESSION: Stable chronic prominence of the bilateral interstitial markings with biapical pleural-parenchymal scarring/bronchiectasis.
[2018-02-01 12:18] LABS: VENOUS BLOOD GAS BASE EXCESS 1.1 mmol/L (0.0-2.0); VENOUS BLOOD GAS PCO2 37 mmHg (40-60); VENOUS BLOOD GAS PO2 53 mm/Hg (30-55); VENOUS BLOOD PH 7.44 (7.32-7.43)
[2018-02-01 12:20] LABS: BASO % 0.1 % (0.0-2.0); EOS % 0.4 % (0.0-4.0); LYMPH # 0.3 K/uL (1.0-4.3); MEAN CORPUSCULAR HEMOGLOBIN 26.5 pg (27.0-31.0); MEAN CORPUSCULAR HGB CONC 32.5 g/dL (33.0-37.0); MONO # 0.6 K/uL (0.0-0.8); MONO % 4.4 % (0.0-10.0); NEUT # 11.8 K/uL (1.8-7.0); NEUT % 93.1 % (50.0-75.0); NRBC % 0.1 % (0.0-2.0); PLATELET COUNT 263 K/uL (130-400); RBC 3.39 Mil/uL (4.40-5.90); RED CELL DISTRIBUTION WIDTH 20.2 % (11.5-14.5)
[2018-02-01 12:22] LABS: MEAN CELL VOLUME 81.7 fL (80.0-94.0); WHITE BLOOD COUNT 12.7 K/uL (4.8-10.8)
[2018-02-01 12:32] LABS: INR 2.1; PROTHROMBIN TIME 22.5 SECONDS (9.7-12.2)
[2018-02-01 12:45] LABS: ANISOCYTOSIS MODERATE; BANDS 2 % (0-2); EOSINOPHIL 1 % (0-4); HYPOCHROMIC SLIGHT; LYMPHOCYTE 2 % (20-40); MONOCYTE 4 % (0-10); NEUTROPHIL 91 % (50-75); PLATELET ESTIMATE NORMAL (NORMAL); TOTAL CELLS COUNTED 100
[2018-02-01 12:46] LABS: OVALOCYTES SLIGHT
[2018-02-01 13:17] LABS: TROPONIN I 0.133 ng/mL (0.00-0.120)
[2018-02-01] MEDS ORDERED: Magnesium Sulfate 1 gm in D5W 1 GM/100 ML BAG IV ONE (13:36)
[2018-02-01 13:38] LABS: ALBUMIN 3.2 g/dL (3.5-5.0); CALCIUM 7.4 mg/dl (8.6-10.4)
[2018-02-01] MEDS ORDERED: Magnesium Sulfate 1 gm in D5W 1 GM/100 ML BAG IVPB ONE (13:41)
[2018-02-01 13:56] LABS: SQUAMOUS EPITHIAL < 1 /hpf (0-5); URINE BACTERIA RARE (<OCC); URINE BILIRUBIN NEGATIVE (NEGATIVE); URINE BLOOD NEGATIVE (NEGATIVE); URINE CLARITY Clear (Clear); URINE COLOR Yellow (YELLOW); URINE GLUCOSE (UA) NORMAL (Normal); URINE LEUKOCYTE ESTERASE NEG Leu/uL (Negative); URINE PROTEIN 1+ mg/dL (NEGATIVE); URINE UROBILINOGEN NORMAL mg/dL (0.2-1.0)
[2018-02-01 14:39] LABS: VENOUS BLOOD GAS BASE EXCESS -2.3 mmol/L (0.0-2.0); VENOUS BLOOD GAS PCO2 38 mmHg (40-60); VENOUS BLOOD GAS PO2 49 mm/Hg (30-55); VENOUS BLOOD PH 7.38 (7.32-7.43)
--- NOTE | 2018-02-01 16:48 | CP.PCM.CON ---
History of Present Illness - History of Present Illness History of Present Illness: [id number] male with PMHx of kidney transplant 12 years ago, AICD endocarditis borderline diabetes, HTN, asthma, and implanted defibrillator presents to ED with h/o recent left knee ? bursal tap c/o fever, left knee pain and swelling for 2 weeks. Patient has picc line on right upper arm secondary to home antibiotics. was treated here for bacteremia sepsis last admission and cultures grew strep - sent home on IV antibiotics did not folllow up with myself Had recent left nurys tap dr Herbert - Medical History PMH: Anemia, Arthritis, Asthma, Atrial Fibrillation, Bronchitis, CAD ( CARDIOMYOPATHY), Cardia Arrhythmia, CHF, COPD, Diabetes (NIDDM), Emphysema, Gastritis, Gastrointestinal Ulcer, HTN, Hypercholesterolemia, Hypothyroidism, Pneumonia, End Stage Renal Disease, Chronic Kidney Disease Surgical History: Pacemaker (Patient has a ISSH with ventricular tachycardia and an ICD.) - [employer] Procedures C.A.T. SCAN OF THORAX (02/06/13) CLOSED [PERCUTANEOUS] [NEEDLE] BIOPSY OF LUNG (02/06/13) COLONOSCOPY (08/17/06) ENDOSC POLYPECTOMY OF LG INTEST (01/01/15) ESOPHAGOGASTRODUODENOSCOPY [EGD] W/CLOSED BIOPSY (01/01/15) NAIL REMOVAL (12/31/13) PACKED CELL TRANSFUSION (01/01/15) Review of Systems - Review of Systems All systems: reviewed and no additional remarkable complaints except - Constitutional Constitutional: As Per HPI, Anorexia, Chills, Fever - EENT Eyes: absent: As Per HPI, Blind Spots, Blurred Vision, Change in Vision, Decreased Night Vision, Diplopia, Discharge, Dry Eye, Exophthalmos, Floaters, Irritation, Itchy Eyes, Loss of Peripheral Vision, Pain, Photophobia, Requires Corrective Lenses, Sees Flashes, Spots in Vision, Tunnel Vision, Other Visual Disturbances, Loss of Vision, Other Ears: absent: As Per HPI, Decreased Hearing, Ear Discharge, Ear Pain, Tinnitus, Abnormal Hearing, Disequilibrium, Dizziness, Other Nose/Mouth/Throat: absent: As Per HPI, Epistaxis, Nasal Congestion, Nasal Discharge, Nasal Obstruction, Nasal Trauma, Nose Pain, Post Nasal Drip, Sinus Pain, Sinus Pressure, Bleeding Gums, Change in Voice, Dental Pain, Dry Mouth, Dysphagia, Halitosis, Hoarsness, Lip Swelling, Mouth Lesions, Mouth Pain, Odynophagia, Sore Throat, Throat Swelling, Tongue Swelling, Facial Pain, Neck Pain, Neck Mass, Other - Cardiovascular Cardiovascular: As Per HPI - Respiratory Respiratory: As Per HPI, Cough, Dyspnea - Gastrointestinal Gastrointestinal: absent: As Per HPI, Abdominal Pain, Belching, Bloating, Change in Bowel Habits, Change in Stool Character, Coffee Ground Emesis, Constipation, Cramping, Diarrhea, Dyspepsia, Dysphagia, Early Satiety, Excessive Flatus, Fecal Incontinence, Heartburn, Hematemesis, Hematochezia, Loose Stools, Melena, Nausea, Odynophagia, Temesmus, Vomiting, Other - Genitourinary Genitourinary: absent: As Per HPI, Change in Urinary Stream, Difficulty Urinating, Dysuria, Flank Pain, Hematuria, Pyuria, Nocturia, Urinary Incontinence, Urinary Frequency, Urinary Hesitance, Urinary Urgency, Voiding Freq/Small Amts, Freq UTI, Hx Renal/Bladder Calculi, Hx /Renal Surgery, Bladder Distension, Other - Musculoskeletal Musculoskeletal: As Per HPI - Integumentary Integumentary: As Per HPI - Neurological Neurological: absent: As Per HPI, Abnormal Gait, Abnormal Hearing, Abnormal Movements, Abnormal Speech, Behavioral Changes, Burning Sensations, Confusion, Convulsions, Disequilibrium, Dizziness, Numbness, Focal Weakness, Frequent Falls , Headaches, Lack of Coordination, Loss of Vision, Memory Loss, Paresthesias, Radicular Pain, Restless Legs, Sensory Deficit, Syncope, Tingling, Tremor, Vertigo, Weakness, Other Visual Disturbances, Other - Psychiatric Psychiatric: absent: As Per HPI, Abnormal Sleep Pattern, Anhedonia, Anxiety, Auditory Hallucinations, Behavioral Changes, Change in Appetite, Change in Libido, Confusion, Depression, Difficulty Concentrating, Hallucinations, Homicidal Ideation, Hopelessness, Irritability, Memory Loss, Mood Swings, Panic Attacks, Paranoia, Suicidal Ideation, Visual Hallucinations, Tactile Hallucinations, Other - Endocrine Endocrine: absent: As Per HPI, Change in Body Appearance, Change in Libido, Cold Intolorance, Deepening of Voice, Excessive Sweating, Fatigue, Flushing, Heat Intolorance, Increase in Ring/Shoe/Hat Size, Palpitations, Polydipsia, Polyphagia, Polyuria, Other - Hematologic/Lymphatic Hematologic: absent: As Per HPI, Easy Bleeding, Easy Bruising, Lymphadenopathy, Other Past Patient History - Infectious Disease Hx of Infectious Diseases: None, C.diff - Tetanus Immunizations Tetanus Immunization: Unknown - Past Medical History & Family History Past Medical History?: Yes - Past Social History Smoking Status: Never Smoked - CARDIAC Hx Atrial Fibrillation: Yes Hx Cardia Arrhythmia: Yes Hx Congestive Heart Failure: Yes Hx Hypercholesterolemia: Yes Hx Hypertension: Yes Hx Pacemaker: Yes (Patient has a ISSH with ventricular tachycardia and an ICD.) - PULMONARY Hx Asthma: Yes Hx Bronchitis: Yes Hx Chronic Obstructive Pulmonary Disease (COPD): Yes (Emphysema,) Hx Emphysema: Yes Hx Pneumonia: Yes - NEUROLOGICAL HX Cerebrovascular Accident: Yes - HEENT Hx HEENT Problems: Yes Hx Cataracts: Yes (bilat iol) - RENAL Hx Chronic Kidney Disease: Yes (s/p renal transplant) - ENDOCRINE/METABOLIC Hx Hypothyroidism: Yes - HEMATOLOGICAL/ONCOLOGICAL Hx Anemia: Yes - INTEGUMENTARY Hx Dermatological Problems: Yes (sun sentivity) - MUSCULOSKELETAL/RHEUMATOLOGICAL Hx Arthritis: Yes (Gout) - GASTROINTESTINAL Hx Gastritis: Yes - GENITOURINARY/GYNECOLOGICAL Hx Genitourinary Disorders: No - PSYCHIATRIC Hx Substance Use: No - SURGICAL HISTORY Hx Surgeries: Yes Hx Kidney Transplant: Yes () Other/Comment: THYROID SURGERY-2004. Hx of perforated bowel corrected with surgery. AICD - ANESTHESIA Hx Anesthesia: Yes Hx Anesthesia Reactions: No Hx Malignant Hyperthermia: No Meds Allergies/Adverse Reactions: Allergies Allergy/AdvReac Type Severity Reaction Status Date / Time metoprolol Allergy Intermediate ITCHING Verified 02/01/18 11:29 Physical Exam - Constitutional Appears: Toxic, Cachectic, Chronically Ill - Head Exam Head Exam: ATRAUMATIC, NORMAL INSPECTION, NORMOCEPHALIC - Eye Exam Eye Exam: absent: Scleral icterus - ENT Exam ENT Exam: Mucous Membranes Dry - Neck Exam Neck exam: Negative for: Lymphadenopathy - Respiratory Exam Respiratory Exam: Decreased Breath Sounds, Rhonchi - Cardiovascular Exam Cardiovascular Exam: Tachycardia, Irregular Rhythm, +S1, +S2 - GI/Abdominal Exam GI & Abdominal Exam: Diminished Bowel Sounds, Soft. absent: Guarding, Rebound, Rigid, Tenderness - Rectal Exam Rectal Exam: Deferred - Exam Exam: NORMAL INSPECTION - Extremities Exam Extremities exam: Positive for: pedal edema, tenderness, pedal pulses present. Negative for: calf tenderness Additional comments: left knee swollen warm tender - Back Exam Back exam: absent: CVA tenderness (L), CVA tenderness (R) - Neurological Exam Neurological exam: Alert, CN II-XII Intact, Oriented x3, Reflexes Normal - Psychiatric Exam Psychiatric exam: Normal Mood - Skin Skin Exam: Petechiae Results - Vital Signs Recent Vital Signs: Last Vital Signs Temp 98.3 F 02/01/18 14:31 Pulse 89 02/01/18 14:31 Resp 18 02/01/18 14:31 BP 121/65 02/01/18 14:31 Pulse Ox 90 L 02/01/18 16:22 - Labs Result Diagrams: 02/01/18 12:15 02/01/18 12:15 Labs: Laboratory Results - last 24 hr 02/01/18 02/01/18 02/01/18 12:14 12:15 12:15 WBC 12.7 H D RBC 3.39 L Hgb 9.0 L Hct 27.7 L MCV 81.7 D MCH 26.5 L MCHC 32.5 L RDW 20.2 H Plt Count 263 MPV 8.0 Neut % (Auto) 93.1 H Lymph % (Auto) 2.0 L [place] % (Auto) 4.4 Eos % (Auto) 0.4 Baso % (Auto) 0.1 Neut # (Auto) 11.8 H Lymph # (Auto) 0.3 L [place] # (Auto) 0.6 Eos # (Auto) 0.0 Baso # (Auto) 0.0 Neutrophils % (Manual) 91 H Band Neutrophils % 2 Lymphocytes % (Manual) 2 L Monocytes % (Manual) 4 Eosinophils % (Manual) 1 Platelet Estimate Normal Hypochromasia (manual) Slight Anisocytosis (manual) Moderate Ovalocytes Slight PT 22.5 H INR 2.1 APTT 28 pO2 53 VBG pH 7.44 H VBG pCO2 37 L VBG HCO3 25.5 VBG Total CO2 26.2 VBG O2 Sat (Calc) 90.8 H VBG Base Excess 1.1 VBG Potassium 3.3 L Sodium 135.0 Chloride 101.0 Glucose 61 L Lactate 0.9 Potassium Carbon Dioxide Anion Gap BUN Creatinine Est GFR ( Amer) Est GFR (Non-Af Amer) Random Glucose Calcium Phosphorus Magnesium Total Bilirubin AST ALT Alkaline Phosphatase CK-MB (Mass) Troponin I Total Protein Albumin Globulin Albumin/Globulin Ratio Venous Blood Potassium 3.3 L Urine Color Urine Clarity Urine pH Ur Specific [place] Urine Protein Urine Glucose (UA) Urine Ketones Urine Blood Urine Nitrate Urine Bilirubin Urine Urobilinogen Ur Leukocyte Esterase Urine WBC (Auto) Urine RBC (Auto) Ur Squamous Epith Cells Urine Bacteria 02/01/18 02/01/18 02/01/18 12:15 13:36 14:16 WBC RBC Hgb Hct MCV MCH MCHC RDW Plt Count MPV Neut % (Auto) Lymph % (Auto) [place] % (Auto) Eos % (Auto) Baso % (Auto) Neut # (Auto) Lymph # (Auto) [place] # (Auto) Eos # (Auto) Baso # (Auto) Neutrophils % (Manual) Band Neutrophils % Lymphocytes % (Manual) Monocytes % (Manual) Eosinophils % (Manual) Platelet Estimate Hypochromasia (manual) Anisocytosis (manual) Ovalocytes PT INR APTT pO2 VBG pH VBG pCO2 VBG HCO3 VBG Total CO2 VBG O2 Sat (Calc) VBG Base Excess VBG Potassium Sodium 135 Chloride 100 Glucose Lactate Potassium 3.9 Carbon Dioxide 21 L Anion Gap 18 BUN 36 H Creatinine 1.7 H Est GFR ( Amer) 48 Est GFR (Non-Af Amer) 40 Random Glucose 57 L Calcium 7.4 L Phosphorus 3.9 Magnesium 1.0 L* D Total Bilirubin 0.4 AST 38 ALT 24 Alkaline Phosphatase 62 CK-MB (Mass) 0.87 Troponin I 0.1330 H* Total Protein 6.5 Albumin 3.2 L Globulin 3.2 Albumin/Globulin Ratio 1.0 Venous Blood Potassium Urine Color Yellow Urine Clarity Clear Urine pH 6.0 Ur Specific [place] 1.014 Urine Protein 1+ H Urine Glucose (UA) Normal Urine Ketones Negative Urine Blood Negative Urine Nitrate Negative Urine Bilirubin Negative Urine Urobilinogen Normal Ur Leukocyte Esterase Neg Urine WBC (Auto) 2 Urine RBC (Auto) < 1 Ur Squamous Epith Cells < 1 Urine Bacteria Rare 02/01/18 14:36 WBC RBC Hgb Hct MCV MCH MCHC RDW Plt Count MPV Neut % (Auto) Lymph % (Auto) [place] % (Auto) Eos % (Auto) Baso % (Auto) Neut # (Auto) Lymph # (Auto) [place] # (Auto) Eos # (Auto) Baso # (Auto) Neutrophils % (Manual) Band Neutrophils % Lymphocytes % (Manual) Monocytes % (Manual) Eosinophils % (Manual) Platelet Estimate Hypochromasia (manual) Anisocytosis (manual) Ovalocytes PT INR APTT pO2 49 VBG pH 7.38 VBG pCO2 38 L VBG HCO3 22.8 VBG Total CO2 23.7 VBG O2 Sat (Calc) 89.0 H VBG Base Excess -2.3 L VBG Potassium 3.2 L Sodium 134.0 Chloride 101.0 Glucose 140 H Lactate 0.7 Potassium Carbon Dioxide Anion Gap BUN Creatinine Est GFR ( Amer) Est GFR (Non-Af Amer) Random Glucose Calcium Phosphorus Magnesium Total Bilirubin AST ALT Alkaline Phosphatase CK-MB (Mass) Troponin I Total Protein Albumin Globulin Albumin/Globulin Ratio Venous Blood Potassium 3.2 L Urine Color Urine Clarity Urine pH Ur Specific [place] Urine Protein Urine Glucose (UA) Urine Ketones Urine Blood Urine Nitrate Urine Bilirubin Urine Urobilinogen Ur Leukocyte Esterase Urine WBC (Auto) Urine RBC (Auto) Ur Squamous Epith Cells Urine Bacteria Assessment & Plan (1) Fever Status: Acute (2) Status post kidney transplant Status: Acute (3) HTN (hypertension) Status: Chronic Priority: Medium (4) Renal insufficiency Status: Chronic Priority: High (5) Atrial fibrillation Status: Acute - Assessment and Plan (Free Text) Assessment: will need arthrocentesis - gout flare ? check cultures IV antibiotics
[2018-02-01] MEDS ORDERED: Vancomycin 1 gm/NS 200 ml 1 GM/200 ML BAG IVPB ONE (17:00)
[2018-02-01] MEDS: Piperacill/Tazo 3.375gm in Dex 3.375 GM/50 ML BAG IVPB SCH (18:37)
[2018-02-01] MEDS: (Novolog) Insulin Aspart, Recombinant 100 u/ml 10 ml vial SC SCH (22:13)
--- NOTE | 2018-02-02 00:17 | CP.PCM.HP ---
History of Present Illness - History of Present Illness History of Present Illness: 72 years old male complaining of weakness, poor appetite and a low grade fever for the past few days. He is being treated with Rocephin IV for the past 5 weeks for a bacteremia. A FERNANDO done on last admission was negative for valvular vegetation. He is known to have a kidney transplant, a hypertrophic cardiomyopathy, a gout, a s/p colectomy for colon cancer, a NIDDM, a HPTN, a bronchial asthma, s/p ICD insertion. Present on Admission - Present on Admission Any Indicators Present on Admission: No Review of Systems - Constitutional Constitutional: Anorexia, Fatigue, Fever, Weakness - Musculoskeletal Additional comments: Swelling and tender left knee. Past Patient History - Infectious Disease Hx of Infectious Diseases: None, C.diff - Tetanus Immunizations Tetanus Immunization: Unknown - Past Medical History & Family History Past Medical History?: Yes - Past Social History Smoking Status: Former Smoker Alcohol: None Drugs: Denies Home Situation {Lives}: With Family Domestic Violence: Negative - CARDIAC Hx Cardiac Disorders: Yes Hx Atrial Fibrillation: Yes Hx Cardia Arrhythmia: Yes Hx Congestive Heart Failure: Yes Hx Hypercholesterolemia: Yes Hx Hypertension: Yes Hx Internal Defibrillator: Yes Hx Pacemaker: (Patient has a ISSH with ventricular tachycardia and an ICD.) - PULMONARY Hx Respiratory Disorders: Yes Hx Asthma: Yes Hx Bronchitis: Yes Hx Chronic Obstructive Pulmonary Disease (COPD): Yes (Emphysema,) Hx Emphysema: Yes Hx Pneumonia: Yes Hx Respiratory Tract Infection: Yes Hx Sleep Apnea: Yes - NEUROLOGICAL Hx Neurological Disorder: Yes - HEENT Hx HEENT Problems: Yes Hx Cataracts: Yes (bilat iol,had surgery) - RENAL Hx Chronic Kidney Disease: Yes (s/p renal transplant) Hx Dialysis: Yes Type of Dialysis Access: old left arm fistula - ENDOCRINE/METABOLIC Hx Endocrine Disorders: Yes Hx Diabetes Mellitus Type 2: Yes Hx Hypothyroidism: Yes - HEMATOLOGICAL/ONCOLOGICAL Hx Blood Disorders: Yes Hx Anemia: Yes Hx Blood Transfusions: Yes Hx Blood Transfusion Reaction: No Hx Cancer: Yes (colon) - INTEGUMENTARY Hx Dermatological Problems: Yes (sun sentivity) Hx Eczema: Yes - MUSCULOSKELETAL/RHEUMATOLOGICAL Hx Falls: No - GASTROINTESTINAL Hx Gastrointestinal Disorders: Yes Hx Bowel Surgery: Yes Hx Clostridium Difficile: Yes Hx Constipation: Yes Hx Gastritis: Yes - GENITOURINARY/GYNECOLOGICAL Hx Genitourinary Disorders: No - PSYCHIATRIC Hx Substance Use: No - SURGICAL HISTORY Hx Surgeries: Yes Hx Cataract Extraction: Yes Hx Kidney Transplant: Yes () Other/Comment: THYROID SURGERY-2004. Hx of perforated bowel corrected with surgery. AICD - ANESTHESIA Hx Anesthesia: Yes Hx Anesthesia Reactions: No Hx Malignant Hyperthermia: No Meds Allergies/Adverse Reactions: Allergies Allergy/AdvReac Type Severity Reaction Status Date / Time metoprolol Allergy Intermediate ITCHING Verified 02/01/18 11:29 Physical Exam - Constitutional Appears: No Acute Distress, Cachectic, Chronically Ill - Head Exam Head Exam: NORMAL INSPECTION - Eye Exam Eye Exam: Normal appearance Pupil Exam: NORMAL ACCOMODATION - ENT Exam ENT Exam: Normal Exam - Neck Exam Neck exam: Positive for: Normal Inspection - Respiratory Exam Respiratory Exam: Clear to Auscultation Bilateral, NORMAL BREATHING PATTERN - Cardiovascular Exam Cardiovascular Exam: REGULAR RHYTHM, Systolic Murmur - GI/Abdominal Exam GI & Abdominal Exam: Normal Bowel Sounds, Soft - Rectal Exam Rectal Exam: Deferred - Exam Exam: NORMAL INSPECTION - Extremities Exam Extremities exam: Positive for: normal inspection - Back Exam Back exam: NORMAL INSPECTION - Neurological Exam Neurological exam: Alert, Normal Gait, Oriented x3 - Psychiatric Exam Psychiatric exam: Anxious - Skin Skin Exam: Dry, Normal Color, Warm Results - Vital Signs Recent Vital Signs: Last Vital Signs Temp 98.6 F 02/01/18 16:54 Pulse 99 H 02/01/18 21:05 Resp 20 02/01/18 16:54 BP 125/71 02/01/18 16:54 Pulse Ox 98 02/01/18 16:54 - Labs Result Diagrams: 02/01/18 12:15 02/01/18 12:15 Labs: Laboratory Results - last 24 hr 02/01/18 02/01/18 02/01/18 12:14 12:15 12:15 WBC 12.7 H D RBC 3.39 L Hgb 9.0 L Hct 27.7 L MCV 81.7 D MCH 26.5 L MCHC 32.5 L RDW 20.2 H Plt Count 263 MPV 8.0 Neut % (Auto) 93.1 H Lymph % (Auto) 2.0 L [place] % (Auto) 4.4 Eos % (Auto) 0.4 Baso % (Auto) 0.1 Neut # (Auto) 11.8 H Lymph # (Auto) 0.3 L [place] # (Auto) 0.6 Eos # (Auto) 0.0 Baso # (Auto) 0.0 Neutrophils % (Manual) 91 H Band Neutrophils % 2 Lymphocytes % (Manual) 2 L Monocytes % (Manual) 4 Eosinophils % (Manual) 1 Platelet Estimate Normal Hypochromasia (manual) Slight Anisocytosis (manual) Moderate Ovalocytes Slight PT 22.5 H INR 2.1 APTT 28 pO2 53 VBG pH 7.44 H VBG pCO2 37 L VBG HCO3 25.5 VBG Total CO2 26.2 VBG O2 Sat (Calc) 90.8 H VBG Base Excess 1.1 VBG Potassium 3.3 L Sodium 135.0 Chloride 101.0 Glucose 61 L Lactate 0.9 Potassium Carbon Dioxide Anion Gap BUN Creatinine Est GFR ( Amer) Est GFR (Non-Af Amer) POC Glucose (mg/dL) Random Glucose Lactic Acid Uric Acid Calcium Phosphorus Magnesium Total Bilirubin AST ALT Alkaline Phosphatase CK-MB (Mass) Troponin I Total Protein Albumin Globulin Albumin/Globulin Ratio Procalcitonin Venous Blood Potassium 3.3 L Urine Color Urine Clarity Urine pH Ur Specific [place] Urine Protein Urine Glucose (UA) Urine Ketones Urine Blood Urine Nitrate Urine Bilirubin Urine Urobilinogen Ur Leukocyte Esterase Urine WBC (Auto) Urine RBC (Auto) Ur Squamous Epith Cells Urine Bacteria 02/01/18 02/01/18 02/01/18 12:15 13:36 14:16 WBC RBC Hgb Hct MCV MCH MCHC RDW Plt Count MPV Neut % (Auto) Lymph % (Auto) [place] % (Auto) Eos % (Auto) Baso % (Auto) Neut # (Auto) Lymph # (Auto) [place] # (Auto) Eos # (Auto) Baso # (Auto) Neutrophils % (Manual) Band Neutrophils % Lymphocytes % (Manual) Monocytes % (Manual) Eosinophils % (Manual) Platelet Estimate Hypochromasia (manual) Anisocytosis (manual) Ovalocytes PT INR APTT pO2 VBG pH VBG pCO2 VBG HCO3 VBG Total CO2 VBG O2 Sat (Calc) VBG Base Excess VBG Potassium Sodium 135 Chloride 100 Glucose Lactate Potassium 3.9 Carbon Dioxide 21 L Anion Gap 18 BUN 36 H Creatinine 1.7 H Est GFR ( Amer) 48 Est GFR (Non-Af Amer) 40 POC Glucose (mg/dL) Random Glucose 57 L Lactic Acid Uric Acid Calcium 7.4 L Phosphorus 3.9 Magnesium 1.0 L* D Total Bilirubin 0.4 AST 38 ALT 24 Alkaline Phosphatase 62 CK-MB (Mass) 0.87 Troponin I 0.1330 H* Total Protein 6.5 Albumin 3.2 L Globulin 3.2 Albumin/Globulin Ratio 1.0 Procalcitonin Venous Blood Potassium Urine Color Yellow Urine Clarity Clear Urine pH 6.0 Ur Specific [place] 1.014 Urine Protein 1+ H Urine Glucose (UA) Normal Urine Ketones Negative Urine Blood Negative Urine Nitrate Negative Urine Bilirubin Negative Urine Urobilinogen Normal Ur Leukocyte Esterase Neg Urine WBC (Auto) 2 Urine RBC (Auto) < 1 Ur Squamous Epith Cells < 1 Urine Bacteria Rare 02/01/18 02/01/18 02/01/18 14:36 16:58 17:01 WBC RBC Hgb Hct MCV MCH MCHC RDW Plt Count MPV Neut % (Auto) Lymph % (Auto) [place] % (Auto) Eos % (Auto) Baso % (Auto) Neut # (Auto) Lymph # (Auto) [place] # (Auto) Eos # (Auto) Baso # (Auto) Neutrophils % (Manual) Band Neutrophils % Lymphocytes % (Manual) Monocytes % (Manual) Eosinophils % (Manual) Platelet Estimate Hypochromasia (manual) Anisocytosis (manual) Ovalocytes PT INR APTT pO2 49 VBG pH 7.38 VBG pCO2 38 L VBG HCO3 22.8 VBG Total CO2 23.7 VBG O2 Sat (Calc) 89.0 H VBG Base Excess -2.3 L VBG Potassium 3.2 L Sodium 134.0 Chloride 101.0 Glucose 140 H Lactate 0.7 Potassium Carbon Dioxide Anion Gap BUN Creatinine Est GFR ( Amer) Est GFR (Non-Af Amer) POC Glucose (mg/dL) 66 65 Random Glucose Lactic Acid Uric Acid Calcium Phosphorus Magnesium Total Bilirubin AST ALT Alkaline Phosphatase CK-MB (Mass) Troponin I Total Protein Albumin Globulin Albumin/Globulin Ratio Procalcitonin Venous Blood Potassium 3.2 L Urine Color Urine Clarity Urine pH Ur Specific [place] Urine Protein Urine Glucose (UA) Urine Ketones Urine Blood Urine Nitrate Urine Bilirubin Urine Urobilinogen Ur Leukocyte Esterase Urine WBC (Auto) Urine RBC (Auto) Ur Squamous Epith Cells Urine Bacteria 02/01/18 02/01/18 02/01/18 17:36 20:34 20:34 WBC RBC Hgb Hct MCV MCH MCHC RDW Plt Count MPV Neut % (Auto) Lymph % (Auto) [place] % (Auto) Eos % (Auto) Baso % (Auto) Neut # (Auto) Lymph # (Auto) [place] # (Auto) Eos # (Auto) Baso # (Auto) Neutrophils % (Manual) Band Neutrophils % Lymphocytes % (Manual) Monocytes % (Manual) Eosinophils % (Manual) Platelet Estimate Hypochromasia (manual) Anisocytosis (manual) Ovalocytes PT INR APTT pO2 VBG pH VBG pCO2 VBG HCO3 VBG Total CO2 VBG O2 Sat (Calc) VBG Base Excess VBG Potassium Sodium Chloride Glucose Lactate Potassium Carbon Dioxide Anion Gap BUN Creatinine Est GFR ( Amer) Est GFR (Non-Af Amer) POC Glucose (mg/dL) 89 Random Glucose Lactic Acid Uric Acid 5.7 Calcium Phosphorus Magnesium Total Bilirubin AST ALT Alkaline Phosphatase CK-MB (Mass) Troponin I Total Protein Albumin Globulin Albumin/Globulin Ratio Procalcitonin 1.05 H Venous Blood Potassium Urine Color Urine Clarity Urine pH Ur Specific [place] Urine Protein Urine Glucose (UA) Urine Ketones Urine Blood Urine Nitrate Urine Bilirubin Urine Urobilinogen Ur Leukocyte Esterase Urine WBC (Auto) Urine RBC (Auto) Ur Squamous Epith Cells Urine Bacteria 02/01/18 02/01/18 20:38 22:11 WBC RBC Hgb Hct MCV MCH MCHC RDW Plt Count MPV Neut % (Auto) Lymph % (Auto) [place] % (Auto) Eos % (Auto) Baso % (Auto) Neut # (Auto) Lymph # (Auto) [place] # (Auto) Eos # (Auto) Baso # (Auto) Neutrophils % (Manual) Band Neutrophils % Lymphocytes % (Manual) Monocytes % (Manual) Eosinophils % (Manual) Platelet Estimate Hypochromasia (manual) Anisocytosis (manual) Ovalocytes PT INR APTT pO2 VBG pH VBG pCO2 VBG HCO3 VBG Total CO2 VBG O2 Sat (Calc) VBG Base Excess VBG Potassium Sodium Chloride Glucose Lactate Potassium Carbon Dioxide Anion Gap BUN Creatinine Est GFR ( Amer) Est GFR (Non-Af Amer) POC Glucose (mg/dL) 77 Random Glucose Lactic Acid 0.9 Uric Acid Calcium Phosphorus Magnesium Total Bilirubin AST ALT Alkaline Phosphatase CK-MB (Mass) Troponin I Total Protein Albumin Globulin Albumin/Globulin Ratio Procalcitonin Venous Blood Potassium Urine Color Urine Clarity Urine pH Ur Specific [place] Urine Protein Urine Glucose (UA) Urine Ketones Urine Blood Urine Nitrate Urine Bilirubin Urine Urobilinogen Ur Leukocyte Esterase Urine WBC (Auto) Urine RBC (Auto) Ur Squamous Epith Cells Urine Bacteria Assessment & Plan (1) Fever Assessment and Plan: IV antibiotics as per DR Nash after blood and urine cultures. Status: Acute (2) Status post kidney transplant Status: Acute (3) Atrial fibrillation Assessment and Plan: To continue Eliquis. Status: Acute (4) Hypertrophic cardiomyopathy Status: Acute Decision To Admit - Pt Status Changed To: Hospital Disposition Of: Inpatient - Admit Certification Admit to Inpatient:: After my assessment, the patient will require hospitalization for at least two midnights. This is because of the severity of symptoms shown, intensity of services needed, and/or the medical risk in this patient being treated as an outpatient. - InPatient: Physician Admission Certification:: After my assessments, the patient hospitalization for at least two midnights. - . Bed Request Type: Telemetry Admitting Physician: Reji Bradshaw
[2018-02-02] MEDS: Piperacill/Tazo 3.375gm in Dex 3.375 GM/50 ML BAG IVPB SCH ×3 (01:13→17:47)
[2018-02-02] MEDS: Levothyroxine 175 MCG TAB PO SCH (05:51)
[2018-02-02 06:48] LABS: BASO % 0.4 % (0.0-2.0); EOS # 0.1 K/uL (0.0-0.7); EOS % 0.6 % (0.0-4.0); HEMOGLOBIN 9.8 g/dL (12.0-18.0); LYMPH # 0.6 K/uL (1.0-4.3); LYMPH % 4.7 % (20.0-40.0); MEAN CELL VOLUME 81.8 fL (80.0-94.0); MEAN CORPUSCULAR HEMOGLOBIN 25.8 pg (27.0-31.0); MEAN CORPUSCULAR HGB CONC 31.6 g/dL (33.0-37.0); MONO # 0.5 K/uL (0.0-0.8); NEUT # 11.6 K/uL (1.8-7.0); NEUT % 90.3 % (50.0-75.0); PLATELET COUNT 299 K/uL (130-400); RBC 3.81 Mil/uL (4.40-5.90); RED CELL DISTRIBUTION WIDTH 20.3 % (11.5-14.5); WHITE BLOOD COUNT 12.8 K/uL (4.8-10.8)
[2018-02-02 07:50] LABS: ALB/GLOB RATIO 0.9 (1.0-2.1); ALBUMIN 3.1 g/dL (3.5-5.0); CALCIUM 7.7 mg/dl (8.6-10.4)
[2018-02-02] MEDS: (Novolog) Insulin Aspart, Recombinant 100 u/ml 10 ml vial SC SCH ×4 (07:56→22:42)
[2018-02-02] MEDS ORDERED: Tiotropium 18 mcg Cap For Inhalation INH SCH (08:00)
[2018-02-02 08:31] LABS: ANISOCYTOSIS SLIGHT; BANDS 1 % (0-2); EOSINOPHIL 1 % (0-4); LYMPHOCYTE 3 % (20-40); MONOCYTE 3 % (0-10); NEUTROPHIL 92 % (50-75); PLATELET ESTIMATE NORMAL (NORMAL); POIKILOCYTOSIS SLIGHT; TOTAL CELLS COUNTED 100
[2018-02-02 08:32] LABS: HYPOCHROMIC SLIGHT; OVALOCYTES SLIGHT; TEARDROP CELLS SLIGHT
[2018-02-02] MEDS: diltiaZEM 240 mg/24 Hours CD Cap PO SCH (09:35)
[2018-02-02] MEDS: Pantoprazole 40 mg EC Tab PO SCH (09:35)
[2018-02-02] MEDS: Magnesium Oxide 400 mg Tab UD PO SCH ×3 (09:35→17:48)
[2018-02-02] MEDS: Potassium & Sodium Phosphate PO SCH ×2 (09:38→17:49)
[2018-02-02] MEDS: GlipiZIDE 2.5 mg SR Tab PO SCH (09:39)
--- NOTE | 2018-02-02 09:56 | CP.PCM.CON ---
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 bursal tap -likely from gout c/o fever x 2 days on IV rocephin daily for strep bacteremia, left elbow pain and swelling for 2 weeks. Patient has picc line on right upper arm secondary to home antibiotics. Recent FERNANDO negative for vegetation no diarrhea s/p treated here for bacteremia sepsis last admission and cultures grew strep - sent home on IV antibiotics did not folllow up but immunosuppressant regimen same. Had recent left knee tap dr Herbert Review of Systems - Constitutional Constitutional: Chills, Fever, Weakness - EENT Eyes: absent: As Per HPI, Blind Spots, Blurred Vision, Change in Vision, Decreased Night Vision, Diplopia, Discharge, Dry Eye, Exophthalmos, Floaters, Irritation, Itchy Eyes, Loss of Peripheral Vision, Pain, Photophobia, Requires Corrective Lenses, Sees Flashes, Spots in Vision, Tunnel Vision, Other Visual Disturbances, Loss of Vision, Other Ears: absent: As Per HPI, Decreased Hearing, Ear Discharge, Ear Pain, Tinnitus, Abnormal Hearing, Disequilibrium, Dizziness, Other Nose/Mouth/Throat: absent: As Per HPI, Epistaxis, Nasal Congestion, Nasal Discharge, Nasal Obstruction, Nasal Trauma, Nose Pain, Post Nasal Drip, Sinus Pain, Sinus Pressure, Bleeding Gums, Change in Voice, Dental Pain, Dry Mouth, Dysphagia, Halitosis, Hoarsness, Lip Swelling, Mouth Lesions, Mouth Pain, Odynophagia, Sore Throat, Throat Swelling, Tongue Swelling, Facial Pain, Neck Pain, Neck Mass, Other - Cardiovascular Cardiovascular: Dyspnea on Exertion, Leg Edema - Respiratory Respiratory: Cough, Dyspnea - Gastrointestinal Gastrointestinal: Nausea - Genitourinary Genitourinary: absent: As Per HPI, Change in Urinary Stream, Difficulty Urinating, Dysuria, Flank Pain, Hematuria, Pyuria, Nocturia, Urinary Incontinence, Urinary Frequency, Urinary Hesitance, Urinary Urgency, Voiding Freq/Small Amts, Freq UTI, Hx Renal/Bladder Calculi, Hx /Renal Surgery, Bladder Distension, Other - Musculoskeletal Musculoskeletal: Arthralgias, Muscle Cramps, Muscle Weakness - Neurological Neurological: Weakness Past Patient History - Infectious Disease Hx of Infectious Diseases: None, C.diff - Tetanus Immunizations Tetanus Immunization: Unknown - Past Medical History & Family History Past Medical History?: Yes Past Family History: Reviewed and not pertinent - Past Social History Smoking Status: Former Smoker Chewing Tobacco Use: No Cigar Use: No Alcohol: None Drugs: Denies Home Situation {Lives}: With Family Domestic Violence: Negative - CARDIAC Hx Cardiac Disorders: Yes Hx Atrial Fibrillation: Yes Hx Cardia Arrhythmia: Yes Hx Congestive Heart Failure: Yes Hx Hypercholesterolemia: Yes Hx Hypertension: Yes Hx Internal Defibrillator: Yes Hx Pacemaker: (Patient has a ISSH with ventricular tachycardia and an ICD.) - PULMONARY Hx Respiratory Disorders: Yes Hx Asthma: Yes Hx Bronchitis: Yes Hx Chronic Obstructive Pulmonary Disease (COPD): Yes (Emphysema,) Hx Emphysema: Yes Hx Pneumonia: Yes Hx Respiratory Tract Infection: Yes Hx Sleep Apnea: Yes - NEUROLOGICAL Hx Neurological Disorder: Yes - HEENT Hx HEENT Problems: Yes Hx Cataracts: Yes (bilat iol,had surgery) - RENAL Hx Chronic Kidney Disease: Yes (s/p renal transplant) Hx Dialysis: Yes Type of Dialysis Access: old left arm fistula - ENDOCRINE/METABOLIC Hx Endocrine Disorders: Yes Hx Diabetes Mellitus Type 2: Yes Hx Hypothyroidism: Yes - HEMATOLOGICAL/ONCOLOGICAL Hx Blood Disorders: Yes Hx Anemia: Yes Hx Blood Transfusions: Yes Hx Blood Transfusion Reaction: No Hx Cancer: Yes (colon) - INTEGUMENTARY Hx Dermatological Problems: Yes (sun sentivity) Hx Eczema: Yes - MUSCULOSKELETAL/RHEUMATOLOGICAL Hx Falls: No - GASTROINTESTINAL Hx Gastrointestinal Disorders: Yes Hx Bowel Surgery: Yes Hx Clostridium Difficile: Yes Hx Constipation: Yes Hx Gastritis: Yes - GENITOURINARY/GYNECOLOGICAL Hx Genitourinary Disorders: No - PSYCHIATRIC Hx Substance Use: No - SURGICAL HISTORY Hx Surgeries: Yes Hx Cataract Extraction: Yes Hx Kidney Transplant: Yes () Other/Comment: THYROID SURGERY-2004. Hx of perforated bowel corrected with surgery. AICD - ANESTHESIA Hx Anesthesia: Yes Hx Anesthesia Reactions: No Hx Malignant Hyperthermia: No Meds Allergies/Adverse Reactions: Allergies Allergy/AdvReac Type Severity Reaction Status Date / Time metoprolol Allergy Intermediate ITCHING Verified 02/01/18 11:29 - Medications Medications: Current Medications Apixaban (Eliquis) 5 mg PO BID [facility] Last Admin: 02/02/18 09:35 Dose: 5 mg Clonazepam (Klonopin) 1 mg PO DAILY [facility] Last Admin: 02/02/18 09:36 Dose: 1 mg Colchicine (Colocrys) 0.6 mg PO DAILY [facility] Last Admin: 02/02/18 09:39 Dose: 0.6 mg Diltiazem HCl (Cardizem Cd) 240 mg PO DAILY [facility] Last Admin: 02/02/18 09:35 Dose: 240 mg Folic Acid (Folic Acid) 1 mg PO DAILY [facility] Last Admin: 02/02/18 09:35 Dose: 1 mg Glipizide (Glucotrol Xl) 2.5 mg PO DAILY [facility] Last Admin: 02/02/18 09:39 Dose: Not Given Hydralazine HCl (Apresoline) 25 mg PO TID [facility] Last Admin: 02/02/18 09:35 Dose: 25 mg Piperacillin Sod/Tazobactam Sod (Zosyn 3.375 Gm Iv Premix) 3.375 gm in 50 mls @ 100 mls/hr IVPB Q8H [facility] PRN Reason: Protocol Last Admin: 02/02/18 09:47 Dose: 100 mls/hr Insulin Aspart (Novolog) 0 unit SC ACHS [facility] PRN Reason: Protocol Last Admin: 02/02/18 07:56 Dose: Not Given Isosorbide Mononitrate (Ismo) 20 mg PO TID [facility] Last Admin: 02/02/18 09:38 Dose: 20 mg Levothyroxine Sodium (Synthroid) 175 mcg PO DAILY@0630 [facility] Last Admin: 02/02/18 05:51 Dose: 175 mcg Magnesium Oxide (Mag-Ox) 400 mg PO TID [facility] Last Admin: 02/02/18 09:35 Dose: 400 mg Pantoprazole Sodium (Protonix Ec Tab) 40 mg PO DAILY [facility] Last Admin: 02/02/18 09:35 Dose: 40 mg Potassium Phos/Sodium Phos (Neutra-Phos) 1 pkt PO BID [facility] Last Admin: 02/02/18 09:38 Dose: 1 pkt Prednisone (Prednisone Tab) 5 mg PO DAILY [facility] Last Admin: 02/02/18 09:35 Dose: 5 mg Rosuvastatin Calcium (Crestor) 10 mg PO HS [facility] Last Admin: 02/01/18 22:23 Dose: 10 mg Sodium Bicarbonate (Sodium Bicarbonate Tab) 650 mg PO TID [facility] Last Admin: 02/02/18 09:35 Dose: 650 mg Tacrolimus (Prograf Cap) 3 mg PO BID [facility] Last Admin: 02/02/18 09:36 Dose: 3 mg Tiotropium [place] (Spiriva) 18 mcg INH RQ24 [facility] Tramadol HCl (Ultram) 50 mg PO TID PRN PRN Reason: Pain, moderate (4-7) Last Admin: 02/02/18 09:35 Dose: 50 mg Physical Exam - Constitutional Appears: Non-toxic, Chronically Ill - Head Exam Head Exam: ATRAUMATIC, NORMAL INSPECTION - Eye Exam Eye Exam: EOMI, Normal appearance - Neck Exam Neck exam: Positive for: Normal Inspection. Negative for: Tenderness - Respiratory Exam Respiratory Exam: Rhonchi, NORMAL BREATHING PATTERN - Cardiovascular Exam Cardiovascular Exam: REGULAR RHYTHM, +S1 - GI/Abdominal Exam GI & Abdominal Exam: Soft. absent: Tenderness - Extremities Exam Extremities exam: Positive for: normal inspection. Negative for: tenderness - Neurological Exam Neurological exam: Alert, CN II-XII Intact - Skin Skin Exam: Dry, Warm Results - Vital Signs Recent Vital Signs: Last Vital Signs Temp 101.3 F H 02/02/18 07:40 Pulse 91 H 02/02/18 07:40 Resp 20 02/02/18 07:40 BP 110/67 02/02/18 07:40 Pulse Ox 95 02/02/18 07:40 - Labs Result Diagrams: 02/02/18 06:38 02/02/18 06:38 Labs: Laboratory Results - last 24 hr 02/01/18 02/01/18 02/01/18 12:14 12:15 12:15 WBC 12.7 H D RBC 3.39 L Hgb 9.0 L Hct 27.7 L MCV 81.7 D MCH 26.5 L MCHC 32.5 L RDW 20.2 H Plt Count 263 MPV 8.0 Neut % (Auto) 93.1 H Lymph % (Auto) 2.0 L [place] % (Auto) 4.4 Eos % (Auto) 0.4 Baso % (Auto) 0.1 Neut # (Auto) 11.8 H Lymph # (Auto) 0.3 L [place] # (Auto) 0.6 Eos # (Auto) 0.0 Baso # (Auto) 0.0 Neutrophils % (Manual) 91 H Band Neutrophils % 2 Lymphocytes % (Manual) 2 L Monocytes % (Manual) 4 Eosinophils % (Manual) 1 Platelet Estimate Normal Hypochromasia (manual) Slight Poikilocytosis (manual Anisocytosis (manual) Moderate Tear Drop Cells Ovalocytes Slight PT 22.5 H INR 2.1 APTT 28 pO2 53 VBG pH 7.44 H VBG pCO2 37 L VBG HCO3 25.5 VBG Total CO2 26.2 VBG O2 Sat (Calc) 90.8 H VBG Base Excess 1.1 VBG Potassium 3.3 L Sodium 135.0 Chloride 101.0 Glucose 61 L Lactate 0.9 Potassium Carbon Dioxide Anion Gap BUN Creatinine Est GFR ( Amer) Est GFR (Non-Af Amer) POC Glucose (mg/dL) Random Glucose Lactic Acid Uric Acid Calcium Phosphorus Magnesium Total Bilirubin AST ALT Alkaline Phosphatase CK-MB (Mass) Troponin I Total Protein Albumin Globulin Albumin/Globulin Ratio Procalcitonin Venous Blood Potassium 3.3 L Urine Color Urine Clarity Urine pH Ur Specific [place] Urine Protein Urine Glucose (UA) Urine Ketones Urine Blood Urine Nitrate Urine Bilirubin Urine Urobilinogen Ur Leukocyte Esterase Urine WBC (Auto) Urine RBC (Auto) Ur Squamous Epith Cells Urine Bacteria 02/01/18 02/01/18 02/01/18 12:15 13:36 14:16 WBC RBC Hgb Hct MCV MCH MCHC RDW Plt Count MPV Neut % (Auto) Lymph % (Auto) [place] % (Auto) Eos % (Auto) Baso % (Auto) Neut # (Auto) Lymph # (Auto) [place] # (Auto) Eos # (Auto) Baso # (Auto) Neutrophils % (Manual) Band Neutrophils % Lymphocytes % (Manual) Monocytes % (Manual) Eosinophils % (Manual) Platelet Estimate Hypochromasia (manual) Poikilocytosis (manual Anisocytosis (manual) Tear Drop Cells Ovalocytes PT INR APTT pO2 VBG pH VBG pCO2 VBG HCO3 VBG Total CO2 VBG O2 Sat (Calc) VBG Base Excess VBG Potassium Sodium 135 Chloride 100 Glucose Lactate Potassium 3.9 Carbon Dioxide 21 L Anion Gap 18 BUN 36 H Creatinine 1.7 H Est GFR ( Amer) 48 Est GFR (Non-Af Amer) 40 POC Glucose (mg/dL) Random Glucose 57 L Lactic Acid Uric Acid Calcium 7.4 L Phosphorus 3.9 Magnesium 1.0 L* D Total Bilirubin 0.4 AST 38 ALT 24 Alkaline Phosphatase 62 CK-MB (Mass) 0.87 Troponin I 0.1330 H* Total Protein 6.5 Albumin 3.2 L Globulin 3.2 Albumin/Globulin Ratio 1.0 Procalcitonin Venous Blood Potassium Urine Color Yellow Urine Clarity Clear Urine pH 6.0 Ur Specific [place] 1.014 Urine Protein 1+ H Urine Glucose (UA) Normal Urine Ketones Negative Urine Blood Negative Urine Nitrate Negative Urine Bilirubin Negative Urine Urobilinogen Normal Ur Leukocyte Esterase Neg Urine WBC (Auto) 2 Urine RBC (Auto) < 1 Ur Squamous Epith Cells < 1 Urine Bacteria Rare 02/01/18 02/01/18 02/01/18 14:36 16:58 17:01 WBC RBC Hgb Hct MCV MCH MCHC RDW Plt Count MPV Neut % (Auto) Lymph % (Auto) [place] % (Auto) Eos % (Auto) Baso % (Auto) Neut # (Auto) Lymph # (Auto) [place] # (Auto) Eos # (Auto) Baso # (Auto) Neutrophils % (Manual) Band Neutrophils % Lymphocytes % (Manual) Monocytes % (Manual) Eosinophils % (Manual) Platelet Estimate Hypochromasia (manual) Poikilocytosis (manual Anisocytosis (manual) Tear Drop Cells Ovalocytes PT INR APTT pO2 49 VBG pH 7.38 VBG pCO2 38 L VBG HCO3 22.8 VBG Total CO2 23.7 VBG O2 Sat (Calc) 89.0 H VBG Base Excess -2.3 L VBG Potassium 3.2 L Sodium 134.0 Chloride 101.0 Glucose 140 H Lactate 0.7 Potassium Carbon Dioxide Anion Gap BUN Creatinine Est GFR ( Amer) Est GFR (Non-Af Amer) POC Glucose (mg/dL) 66 65 Random Glucose Lactic Acid Uric Acid Calcium Phosphorus Magnesium Total Bilirubin AST ALT Alkaline Phosphatase CK-MB (Mass) Troponin I Total Protein Albumin Globulin Albumin/Globulin Ratio Procalcitonin Venous Blood Potassium 3.2 L Urine Color Urine Clarity Urine pH Ur Specific [place] Urine Protein Urine Glucose (UA) Urine Ketones Urine Blood Urine Nitrate Urine Bilirubin Urine Urobilinogen Ur Leukocyte Esterase Urine WBC (Auto) Urine RBC (Auto) Ur Squamous Epith Cells Urine Bacteria 02/01/18 02/01/18 02/01/18 17:36 20:34 20:34 WBC RBC Hgb Hct MCV MCH MCHC RDW Plt Count MPV Neut % (Auto) Lymph % (Auto) [place] % (Auto) Eos % (Auto) Baso % (Auto) Neut # (Auto) Lymph # (Auto) [place] # (Auto) Eos # (Auto) Baso # (Auto) Neutrophils % (Manual) Band Neutrophils % Lymphocytes % (Manual) Monocytes % (Manual) Eosinophils % (Manual) Platelet Estimate Hypochromasia (manual) Poikilocytosis (manual Anisocytosis (manual) Tear Drop Cells Ovalocytes PT INR APTT pO2 VBG pH VBG pCO2 VBG HCO3 VBG Total CO2 VBG O2 Sat (Calc) VBG Base Excess VBG Potassium Sodium Chloride Glucose Lactate Potassium Carbon Dioxide Anion Gap BUN Creatinine Est GFR ( Amer) Est GFR (Non-Af Amer) POC Glucose (mg/dL) 89 Random Glucose Lactic Acid Uric Acid 5.7 Calcium Phosphorus Magnesium Total Bilirubin AST ALT Alkaline Phosphatase CK-MB (Mass) Troponin I Total Protein Albumin Globulin Albumin/Globulin Ratio Procalcitonin 1.05 H Venous Blood Potassium Urine Color Urine Clarity Urine pH Ur Specific [place] Urine Protein Urine Glucose (UA) Urine Ketones Urine Blood Urine Nitrate Urine Bilirubin Urine Urobilinogen Ur Leukocyte Esterase Urine WBC (Auto) Urine RBC (Auto) Ur Squamous Epith Cells Urine Bacteria 02/01/18 02/01/18 02/02/18 20:38 22:11 06:25 WBC RBC Hgb Hct MCV MCH MCHC RDW Plt Count MPV Neut % (Auto) Lymph % (Auto) [place] % (Auto) Eos % (Auto) Baso % (Auto) Neut # (Auto) Lymph # (Auto) [place] # (Auto) Eos # (Auto) Baso # (Auto) Neutrophils % (Manual) Band Neutrophils % Lymphocytes % (Manual) Monocytes % (Manual) Eosinophils % (Manual) Platelet Estimate Hypochromasia (manual) Poikilocytosis (manual Anisocytosis (manual) Tear Drop Cells Ovalocytes PT INR APTT pO2 VBG pH VBG pCO2 VBG HCO3 VBG Total CO2 VBG O2 Sat (Calc) VBG Base Excess VBG Potassium Sodium Chloride Glucose Lactate Potassium Carbon Dioxide Anion Gap BUN Creatinine Est GFR ( Amer) Est GFR (Non-Af Amer) POC Glucose (mg/dL) 77 81 Random Glucose Lactic Acid 0.9 Uric Acid Calcium Phosphorus Magnesium Total Bilirubin AST ALT Alkaline Phosphatase CK-MB (Mass) Troponin I Total Protein Albumin Globulin Albumin/Globulin Ratio Procalcitonin Venous Blood Potassium Urine Color Urine Clarity Urine pH Ur Specific [place] Urine Protein Urine Glucose (UA) Urine Ketones Urine Blood Urine Nitrate Urine Bilirubin Urine Urobilinogen Ur Leukocyte Esterase Urine WBC (Auto) Urine RBC (Auto) Ur Squamous Epith Cells Urine Bacteria 02/02/18 02/02/18 06:38 06:38 WBC 12.8 H RBC 3.81 L Hgb 9.8 L Hct 31.2 L MCV 81.8 MCH 25.8 L MCHC 31.6 L RDW 20.3 H Plt Count 299 MPV 8.0 Neut % (Auto) 90.3 H Lymph % (Auto) 4.7 L [place] % (Auto) 4.0 Eos % (Auto) 0.6 Baso % (Auto) 0.4 Neut # (Auto) 11.6 H Lymph # (Auto) 0.6 L [place] # (Auto) 0.5 Eos # (Auto) 0.1 Baso # (Auto) 0.0 Neutrophils % (Manual) 92 H Band Neutrophils % 1 Lymphocytes % (Manual) 3 L Monocytes % (Manual) 3 Eosinophils % (Manual) 1 Platelet Estimate Normal Hypochromasia (manual) Slight Poikilocytosis (manual Slight Anisocytosis (manual) Slight Tear Drop Cells Slight Ovalocytes Slight PT INR APTT pO2 VBG pH VBG pCO2 VBG HCO3 VBG Total CO2 VBG O2 Sat (Calc) VBG Base Excess VBG Potassium Sodium 136 Chloride 99 Glucose Lactate Potassium 4.0 Carbon Dioxide 26 Anion Gap 15 BUN 28 H Creatinine 1.6 H Est GFR ( Amer) 52 Est GFR (Non-Af Amer) 43 POC Glucose (mg/dL) Random Glucose 74 L Lactic Acid Uric Acid Calcium 7.7 L Phosphorus Magnesium Total Bilirubin 0.4 AST 28 ALT 20 L Alkaline Phosphatase 76 CK-MB (Mass) Troponin I Total Protein 6.4 Albumin 3.1 L Globulin 3.3 Albumin/Globulin Ratio 0.9 L Procalcitonin Venous Blood Potassium Urine Color Urine Clarity Urine pH Ur Specific [place] Urine Protein Urine Glucose (UA) Urine Ketones Urine Blood Urine Nitrate Urine Bilirubin Urine Urobilinogen Ur Leukocyte Esterase Urine WBC (Auto) Urine RBC (Auto) Ur Squamous Epith Cells Urine Bacteria Assessment & Plan (1) Renal transplant recipient Status: Acute (2) DM type 2 (diabetes mellitus, type 2) Status: Acute (3) Chronic atrial fibrillation Status: Acute (4) Hypothyroidism Status: Acute (5) Sepsis Status: Acute (6) Pulmonary fibrosis Status: Acute (7) Gout Status: Acute - Assessment and Plan (Free Text) Plan: blood and urine cultures check FK level IV ABs as per ID If culture positive again would consider changing central lines- eg PICC, ICD repeat chemistries
[2018-02-02] MEDS: Magnesium Sulfate 1 gm in D5W 1 GM/100 ML BAG IVPB SCH ×2 (11:23→13:42)
--- NOTE | 2018-02-02 11:30 | CARD ---
APPROVED REPORT Date of service: 02/01/2018 EKG Measurement Heart [id number] <Conclusion> Sinus tachycardia with premature atrial complexes with aberrant conduction Left axis deviation Left ventricular hypertrophy with repolarization abnormality Prolonged QT Abnormal ECG
[2018-02-02] MEDS ORDERED: Magnesium Sulfate 1 gm in D5W 1 GM/100 ML BAG IVPB SCH (14:00)
--- NOTE | 2018-02-02 17:55 | CP.PCM.PN ---
Subjective - Date & Time of Evaluation Date of Evaluation: 02/02/18 Time of Evaluation: 09:00 - Subjective Subjective: no fever wbc remains elevated c/o left knee pain and swelling afeb Objective - Vital Signs/Intake and Output Vital Signs (last 24 hours): Temp Pulse Resp BP Pulse Ox 98.0 F 78 20 120/53 L 100 02/02/18 15:52 02/02/18 15:59 02/02/18 15:52 02/02/18 15:52 02/02/18 15:52 Intake and Output: 02/02/18 02/02/18 06:59 18:59 Intake Total 670 Output Total 700 Balance -30 - Medications Medications: Current Medications Apixaban (Eliquis) 5 mg PO BID [facility] Last Admin: 02/02/18 17:48 Dose: 5 mg Clonazepam (Klonopin) 1 mg PO DAILY [facility] Last Admin: 02/02/18 09:36 Dose: 1 mg Colchicine (Colocrys) 0.6 mg PO DAILY [facility] Last Admin: 02/02/18 09:39 Dose: 0.6 mg Diltiazem HCl (Cardizem Cd) 240 mg PO DAILY [facility] Last Admin: 02/02/18 09:35 Dose: 240 mg Folic Acid (Folic Acid) 1 mg PO DAILY [facility] Last Admin: 02/02/18 09:35 Dose: 1 mg Glipizide (Glucotrol Xl) 2.5 mg PO DAILY [facility] Last Admin: 02/02/18 09:39 Dose: Not Given Hydralazine HCl (Apresoline) 25 mg PO TID [facility] Last Admin: 02/02/18 17:48 Dose: 25 mg Piperacillin Sod/Tazobactam Sod (Zosyn 3.375 Gm Iv Premix) 3.375 gm in 50 mls @ 100 mls/hr IVPB Q8H [facility] PRN Reason: Protocol Last Admin: 02/02/18 17:47 Dose: 100 mls/hr Insulin Aspart (Novolog) 0 unit SC ACHS [facility] PRN Reason: Protocol Last Admin: 02/02/18 17:47 Dose: 4 units Isosorbide Mononitrate (Ismo) 20 mg PO TID [facility] Last Admin: 02/02/18 17:48 Dose: 20 mg Levothyroxine Sodium (Synthroid) 175 mcg PO DAILY@0630 [facility] Last Admin: 02/02/18 05:51 Dose: 175 mcg Magnesium Oxide (Mag-Ox) 400 mg PO TID [facility] Last Admin: 02/02/18 17:48 Dose: 400 mg Pantoprazole Sodium (Protonix Ec Tab) 40 mg PO DAILY [facility] Last Admin: 02/02/18 09:35 Dose: 40 mg Potassium Phos/Sodium Phos (Neutra-Phos) 1 pkt PO BID [facility] Last Admin: 02/02/18 17:49 Dose: 1 pkt Prednisone (Prednisone Tab) 5 mg PO DAILY [facility] Last Admin: 02/02/18 09:35 Dose: 5 mg Rosuvastatin Calcium (Crestor) 10 mg PO HS [facility] Last Admin: 02/01/18 22:23 Dose: 10 mg Sodium Bicarbonate (Sodium Bicarbonate Tab) 650 mg PO TID [facility] Last Admin: 02/02/18 13:42 Dose: 650 mg Tacrolimus (Prograf Cap) 3 mg PO BID [facility] Last Admin: 02/02/18 17:48 Dose: 3 mg Tiotropium [place] (Spiriva) 18 mcg INH RQ24 [facility] Tramadol HCl (Ultram) 50 mg PO TID PRN PRN Reason: Pain, moderate (4-7) Last Admin: 02/02/18 09:35 Dose: 50 mg - Labs Labs: 02/02/18 06:38 02/02/18 06:38 PT 22.5 SECONDS (9.7-12.2) H 02/01/18 12:15 INR 2.1 02/01/18 12:15 APTT 28 SECONDS (21-34) 02/01/18 12:15 - Constitutional Appears: Non-toxic, Chronically Ill - Head Exam Head Exam: NORMOCEPHALIC - Eye Exam Eye Exam: PERRL - ENT Exam ENT Exam: Mucous Membranes Dry - Neck Exam Neck Exam: absent: Lymphadenopathy - Respiratory Exam Respiratory Exam: Decreased Breath Sounds - Cardiovascular Exam Cardiovascular Exam: REGULAR RHYTHM - GI/Abdominal Exam GI & Abdominal Exam: Distended, Soft - Rectal Exam Rectal Exam: Deferred - Exam Exam: NORMAL INSPECTION - Extremities Exam Extremities Exam: Pedal Edema, Tenderness. absent: Calf Tenderness Additional comments: left knee wth painful swelling and tenderness - Back Exam Back Exam: absent: CVA tenderness (L), CVA tenderness (R) - Neurological Exam Neurological Exam: Alert, Awake, Oriented x3 - Psychiatric Exam Psychiatric exam: Depressed - Skin Skin Exam: Dry Assessment and Plan (1) Fever Status: Acute (2) Status post kidney transplant Status: Acute (3) HTN (hypertension) Status: Chronic (4) Renal insufficiency Status: Chronic (5) Atrial fibrillation Status: Acute - Assessment and Plan (Free Text) Assessment: consider arthrocentesis/ ortho eval/ imaging of left knee all cultures neg thus far
[2018-02-02] MEDS ORDERED: Vancomycin 1 gm/NS 200 ml 1 GM/200 ML BAG IVPB SCH (19:00)
--- NOTE | 2018-02-02 23:41 | CP.PCM.PN ---
Subjective - Date & Time of Evaluation Date of Evaluation: 02/02/18 Time of Evaluation: 20:20 - Subjective Subjective: Patient feels better, Afebrile. Still with swelling and pain of the left knee. Serum uric acid normal. Blood cultures negative. Will ask Dr Avery to evaluate. Objective - Vital Signs/Intake and Output Vital Signs (last 24 hours): Temp Pulse Resp BP Pulse Ox 98.0 F 78 20 120/53 L 100 02/02/18 15:52 02/02/18 15:59 02/02/18 15:52 02/02/18 15:52 02/02/18 15:52 - Medications Medications: Current Medications Apixaban (Eliquis) 5 mg PO BID [facility] Last Admin: 02/02/18 17:48 Dose: 5 mg Clonazepam (Klonopin) 1 mg PO DAILY [facility] Last Admin: 02/02/18 09:36 Dose: 1 mg Colchicine (Colocrys) 0.6 mg PO DAILY [facility] Last Admin: 02/02/18 09:39 Dose: 0.6 mg Diltiazem HCl (Cardizem Cd) 240 mg PO DAILY [facility] Last Admin: 02/02/18 09:35 Dose: 240 mg Folic Acid (Folic Acid) 1 mg PO DAILY [facility] Last Admin: 02/02/18 09:35 Dose: 1 mg Glipizide (Glucotrol Xl) 2.5 mg PO DAILY [facility] Last Admin: 02/02/18 09:39 Dose: Not Given Hydralazine HCl (Apresoline) 25 mg PO TID [facility] Last Admin: 02/02/18 17:48 Dose: 25 mg Piperacillin Sod/Tazobactam Sod (Zosyn 3.375 Gm Iv Premix) 3.375 gm in 50 mls @ 100 mls/hr IVPB Q8H [facility] PRN Reason: Protocol Last Admin: 02/02/18 17:47 Dose: 100 mls/hr Vancomycin/Sodium Chloride (Vancomycin 1 Gm/Ns 200 Ml) 1 gm in 200 mls @ 166.7 mls/hr IVPB Q24H [facility] PRN Reason: Protocol Stop: 02/07/18 19:01 Last Admin: 02/02/18 19:54 Dose: 166.7 mls/hr Insulin Aspart (Novolog) 0 unit SC ACHS [facility] PRN Reason: Protocol Last Admin: 02/02/18 22:42 Dose: Not Given Isosorbide Mononitrate (Ismo) 20 mg PO TID [facility] Last Admin: 02/02/18 17:48 Dose: 20 mg Levothyroxine Sodium (Synthroid) 175 mcg PO DAILY@0630 [facility] Last Admin: 02/02/18 05:51 Dose: 175 mcg Magnesium Oxide (Mag-Ox) 400 mg PO TID [facility] Last Admin: 02/02/18 17:48 Dose: 400 mg Pantoprazole Sodium (Protonix Ec Tab) 40 mg PO DAILY [facility] Last Admin: 02/02/18 09:35 Dose: 40 mg Potassium Phos/Sodium Phos (Neutra-Phos) 1 pkt PO BID [facility] Last Admin: 02/02/18 17:49 Dose: 1 pkt Prednisone (Prednisone Tab) 5 mg PO DAILY [facility] Last Admin: 02/02/18 09:35 Dose: 5 mg Rosuvastatin Calcium (Crestor) 10 mg PO HS [facility] Last Admin: 02/02/18 22:29 Dose: 10 mg Sodium Bicarbonate (Sodium Bicarbonate Tab) 650 mg PO TID [facility] Last Admin: 02/02/18 17:56 Dose: 650 mg Tacrolimus (Prograf Cap) 3 mg PO BID [facility] Last Admin: 02/02/18 17:48 Dose: 3 mg Tiotropium [place] (Spiriva) 18 mcg INH RQ24 [facility] Tramadol HCl (Ultram) 50 mg PO TID PRN PRN Reason: Pain, moderate (4-7) Last Admin: 02/02/18 09:35 Dose: 50 mg - Labs Labs: 02/02/18 06:38 02/02/18 06:38 PT 22.5 SECONDS (9.7-12.2) H 02/01/18 12:15 INR 2.1 02/01/18 12:15 APTT 28 SECONDS (21-34) 02/01/18 12:15 - Constitutional Appears: No Acute Distress, Chronically Ill - Head Exam Head Exam: NORMOCEPHALIC - Eye Exam Eye Exam: Normal appearance - ENT Exam ENT Exam: Normal Exam - Neck Exam Neck Exam: Normal Inspection - Respiratory Exam Respiratory Exam: Clear to Ausculation Bilateral, NORMAL BREATHING PATTERN - Cardiovascular Exam Cardiovascular Exam: REGULAR RHYTHM - GI/Abdominal Exam GI & Abdominal Exam: Soft, Normal Bowel Sounds - Rectal Exam Rectal Exam: Deferred - Exam Exam: NORMAL INSPECTION - Extremities Exam Extremities Exam: Normal Inspection - Back Exam Back Exam: NORMAL INSPECTION - Neurological Exam Neurological Exam: Alert, Awake, Oriented x3 - Psychiatric Exam Psychiatric exam: Anxious - Skin Skin Exam: Dry, Intact, Normal Color, Warm Assessment and Plan (1) Fever Assessment & Plan: IV antibiotic as per Dr Nash. Status: Acute (2) Status post kidney transplant Status: Acute (3) Atrial fibrillation Status: Acute (4) Hypertrophic cardiomyopathy Status: Acute
[2018-02-03] MEDS: Piperacill/Tazo 3.375gm in Dex 3.375 GM/50 ML BAG IVPB SCH ×3 (01:36→17:32)
[2018-02-03] MEDS: Levothyroxine 175 MCG TAB PO SCH (06:06)
[2018-02-03 06:25] LABS: MEAN CELL VOLUME 82.1 fL (80.0-94.0); MEAN CORPUSCULAR HEMOGLOBIN 26.3 pg (27.0-31.0); MEAN CORPUSCULAR HGB CONC 32.1 g/dL (33.0-37.0); MEAN PLATELET VOLUME 8.1 fL (7.2-11.7); RBC 2.94 Mil/uL (4.40-5.90); RED CELL DISTRIBUTION WIDTH 20.2 % (11.5-14.5); WHITE BLOOD COUNT 7.3 K/uL (4.8-10.8)
[2018-02-03 06:35] LABS: HEMOGLOBIN 7.7 g/dL (12.0-18.0)
[2018-02-03] MEDS: (Novolog) Insulin Aspart, Recombinant 100 u/ml 10 ml vial SC SCH ×4 (07:56→22:05)
[2018-02-03 09:19] LABS: ALB/GLOB RATIO 0.9 (1.0-2.1); ALBUMIN 2.5 g/dL (3.5-5.0); CALCIUM 7.4 mg/dl (8.6-10.4)
[2018-02-03] MEDS: Magnesium Oxide 400 mg Tab UD PO SCH ×3 (09:46→17:32)
[2018-02-03] MEDS: diltiaZEM 240 mg/24 Hours CD Cap PO SCH (09:46)
[2018-02-03] MEDS: Pantoprazole 40 mg EC Tab PO SCH (09:46)
[2018-02-03] MEDS: Potassium & Sodium Phosphate PO SCH ×2 (09:47→17:36)
[2018-02-03] MEDS: GlipiZIDE 2.5 mg SR Tab PO SCH (09:47)
--- NOTE | 2018-02-03 10:19 | CT ---
Date of service: 02/02/2018 PROCEDURE: CT of the left knee. HISTORY: pain and swelling r/o OM COMPARISON: None available. TECHNIQUE: Contiguous axial images of the left knee were obtained. Coronal and sagittal reformats were generated. This CT exam was performed using one or more of the following dose reduction techniques: Automated exposure control, adjustment of the mA and/or kV according to patient size, and/or use of iterative reconstruction technique. FINDINGS: BONES: There is diffuse bone demineralization. There is no acute displaced fracture or bone destruction. Bone alignment is normal. There is mild tricompartmental degenerative osteoarthrosis with mild reduced joint spaces and marginal spurring, worse in the medial compartment. There is a large suprapatellar joint effusion. Also noted is a 4.8 x 3.2 x 6.6 cm fluid collection anterior to the lateral head of the gastrocnemius and posterior to the fibular head. Also noted is a fluid collection anterior to the biceps femoris measuring 1.8 x 3.0 x 3.2 cm. Incompletely imaged are fluid collections posterior lateral to the visualized distal diaphysis of the femur. The periarticular muscles demonstrate fatty atrophy. The periarticular subcutaneous tissues are normal. SOFT TISSUES: There are advanced atherosclerotic vascular calcifications. IMPRESSION: Large joint effusion and multilocular periarticular fluid collections in the distal thigh and proximal knee as described above. The sterility of these collections cannot be determined on the basis of imaging. Clinical and laboratory correlation is advised. No CT evidence for acute osteomyelitis. A preliminary report was provided by [facility] services.
[2018-02-03 11:28] LABS: ANTI SREPTOLYSIN O NEGATIVE (NEGATIVE)
--- NOTE | 2018-02-03 13:34 | CP.PCM.PN ---
Subjective - Date & Time of Evaluation Date of Evaluation: 02/03/18 Time of Evaluation: 13:31 - Subjective Subjective: now afebrile repeat cultures so far negative maintained on IV ABs per ID left knee still painful and swollen- for rheum evaluation creat 1.7- about baseline awaiting FK levels Objective - Vital Signs/Intake and Output Vital Signs (last 24 hours): Temp Pulse Resp BP Pulse Ox 97.7 F 76 20 117/74 96 02/03/18 07:40 02/03/18 11:50 02/03/18 07:40 02/03/18 07:40 02/03/18 07:40 Intake and Output: 02/03/18 02/03/18 06:59 18:59 Output Total 100 Balance -100 - Medications Medications: Current Medications Apixaban (Eliquis) 5 mg PO BID [facility] Last Admin: 02/03/18 09:46 Dose: 5 mg Clonazepam (Klonopin) 1 mg PO DAILY [facility] Last Admin: 02/03/18 09:46 Dose: 1 mg Colchicine (Colocrys) 0.6 mg PO DAILY [facility] Last Admin: 02/03/18 09:46 Dose: 0.6 mg Diltiazem HCl (Cardizem Cd) 240 mg PO DAILY [facility] Last Admin: 02/03/18 09:46 Dose: 240 mg Folic Acid (Folic Acid) 1 mg PO DAILY [facility] Last Admin: 02/03/18 09:46 Dose: 1 mg Glipizide (Glucotrol Xl) 2.5 mg PO DAILY [facility] Last Admin: 02/03/18 09:47 Dose: 2.5 mg Hydralazine HCl (Apresoline) 25 mg PO TID [facility] Last Admin: 02/03/18 13:17 Dose: 25 mg Piperacillin Sod/Tazobactam Sod (Zosyn 3.375 Gm Iv Premix) 3.375 gm in 50 mls @ 100 mls/hr IVPB Q8H [facility] PRN Reason: Protocol Last Admin: 02/03/18 08:33 Dose: 100 mls/hr Vancomycin/Sodium Chloride (Vancomycin 1 Gm/Ns 200 Ml) 1 gm in 200 mls @ 166.7 mls/hr IVPB Q24H [facility] PRN Reason: Protocol Stop: 02/07/18 19:01 Last Admin: 02/02/18 19:54 Dose: 166.7 mls/hr Insulin Aspart (Novolog) 0 unit SC ACHS [facility] PRN Reason: Protocol Last Admin: 02/03/18 12:30 Dose: Not Given Isosorbide Mononitrate (Ismo) 20 mg PO TID [facility] Last Admin: 02/03/18 13:17 Dose: 20 mg Levothyroxine Sodium (Synthroid) 175 mcg PO DAILY@0630 [facility] Last Admin: 02/03/18 06:06 Dose: 175 mcg Magnesium Oxide (Mag-Ox) 400 mg PO TID [facility] Last Admin: 02/03/18 13:17 Dose: 400 mg Pantoprazole Sodium (Protonix Ec Tab) 40 mg PO DAILY [facility] Last Admin: 02/03/18 09:46 Dose: 40 mg Potassium Phos/Sodium Phos (Neutra-Phos) 1 pkt PO BID [facility] Last Admin: 02/03/18 09:47 Dose: 1 pkt Prednisone (Prednisone Tab) 5 mg PO DAILY [facility] Last Admin: 02/03/18 09:46 Dose: 5 mg Rosuvastatin Calcium (Crestor) 10 mg PO HS [facility] Last Admin: 02/02/18 22:29 Dose: 10 mg Sodium Bicarbonate (Sodium Bicarbonate Tab) 650 mg PO TID [facility] Last Admin: 02/03/18 13:17 Dose: 650 mg Tacrolimus (Prograf Cap) 3 mg PO BID [facility] Last Admin: 02/03/18 09:47 Dose: 3 mg Tiotropium [place] (Spiriva) 18 mcg INH RQ24 [facility] Tramadol HCl (Ultram) 50 mg PO TID PRN PRN Reason: Pain, moderate (4-7) Last Admin: 02/02/18 09:35 Dose: 50 mg - Labs Labs: 02/03/18 06:18 02/03/18 06:18 PT 22.5 SECONDS (9.7-12.2) H 02/01/18 12:15 INR 2.1 02/01/18 12:15 APTT 28 SECONDS (21-34) 02/01/18 12:15 - Constitutional Appears: No Acute Distress, Chronically Ill - Head Exam Head Exam: ATRAUMATIC, NORMAL INSPECTION - Eye Exam Eye Exam: EOMI, Normal appearance - Neck Exam Neck Exam: Normal Inspection. absent: Tenderness - Respiratory Exam Respiratory Exam: Clear to Ausculation Bilateral, NORMAL BREATHING PATTERN - Cardiovascular Exam Cardiovascular Exam: REGULAR RHYTHM, +S1 - GI/Abdominal Exam GI & Abdominal Exam: Soft. absent: Tenderness - Extremities Exam Extremities Exam: Normal Inspection. absent: Tenderness - Neurological Exam Neurological Exam: Alert, CN II-XII Intact - Skin Skin Exam: Dry, Warm Assessment and Plan (1) Renal transplant recipient Status: Acute (2) DM type 2 (diabetes mellitus, type 2) Status: Acute (3) Chronic atrial fibrillation Status: Acute (4) Hypothyroidism Status: Acute (5) Pulmonary fibrosis Status: Acute (6) Gout Status: Acute - Assessment and Plan (Free Text) Plan: IV ABs rheum eval- ? gout as cause of fevers check repeat cultures- if + might need change in lines monitor renal function and check FK levels
--- NOTE | 2018-02-03 16:49 | CP.PCM.PN ---
Subjective - Date & Time of Evaluation Date of Evaluation: 02/03/18 Time of Evaluation: 08:00 - Subjective Subjective: CT shows large effusions left knee unclear etiology so far cultures neg t max lower had beenon IV antibiotics as out pt will need ortho eval/ aspiration consider MRI Objective - Vital Signs/Intake and Output Vital Signs (last 24 hours): Temp Pulse Resp BP Pulse Ox 98 F 80 20 105/57 L 100 02/03/18 15:58 02/03/18 15:58 02/03/18 15:58 02/03/18 15:58 02/03/18 15:58 Intake and Output: 02/03/18 02/03/18 06:59 18:59 Output Total 100 Balance -100 - Medications Medications: Current Medications Apixaban (Eliquis) 5 mg PO BID [facility] Last Admin: 02/03/18 09:46 Dose: 5 mg Clonazepam (Klonopin) 1 mg PO DAILY [facility] Last Admin: 02/03/18 09:46 Dose: 1 mg Colchicine (Colocrys) 0.6 mg PO DAILY [facility] Last Admin: 02/03/18 09:46 Dose: 0.6 mg Diltiazem HCl (Cardizem Cd) 240 mg PO DAILY [facility] Last Admin: 02/03/18 09:46 Dose: 240 mg Folic Acid (Folic Acid) 1 mg PO DAILY [facility] Last Admin: 02/03/18 09:46 Dose: 1 mg Glipizide (Glucotrol Xl) 2.5 mg PO DAILY [facility] Last Admin: 02/03/18 09:47 Dose: 2.5 mg Hydralazine HCl (Apresoline) 25 mg PO TID [facility] Last Admin: 02/03/18 13:17 Dose: 25 mg Piperacillin Sod/Tazobactam Sod (Zosyn 3.375 Gm Iv Premix) 3.375 gm in 50 mls @ 100 mls/hr IVPB Q8H [facility] PRN Reason: Protocol Last Admin: 02/03/18 08:33 Dose: 100 mls/hr Vancomycin/Sodium Chloride (Vancomycin 1 Gm/Ns 200 Ml) 1 gm in 200 mls @ 166.7 mls/hr IVPB Q24H [facility] PRN Reason: Protocol Stop: 02/07/18 19:01 Last Admin: 02/02/18 19:54 Dose: 166.7 mls/hr Insulin Aspart (Novolog) 0 unit SC ACHS [facility] PRN Reason: Protocol Last Admin: 02/03/18 12:30 Dose: Not Given Isosorbide Mononitrate (Ismo) 20 mg PO TID [facility] Last Admin: 02/03/18 13:17 Dose: 20 mg Levothyroxine Sodium (Synthroid) 175 mcg PO DAILY@0630 [facility] Last Admin: 02/03/18 06:06 Dose: 175 mcg Magnesium Oxide (Mag-Ox) 400 mg PO TID [facility] Last Admin: 02/03/18 13:17 Dose: 400 mg Pantoprazole Sodium (Protonix Ec Tab) 40 mg PO DAILY [facility] Last Admin: 02/03/18 09:46 Dose: 40 mg Potassium Phos/Sodium Phos (Neutra-Phos) 1 pkt PO BID [facility] Last Admin: 02/03/18 09:47 Dose: 1 pkt Prednisone (Prednisone Tab) 5 mg PO DAILY [facility] Last Admin: 02/03/18 09:46 Dose: 5 mg Rosuvastatin Calcium (Crestor) 10 mg PO HS [facility] Last Admin: 02/02/18 22:29 Dose: 10 mg Sodium Bicarbonate (Sodium Bicarbonate Tab) 650 mg PO TID [facility] Last Admin: 02/03/18 13:17 Dose: 650 mg Tacrolimus (Prograf Cap) 3 mg PO BID [facility] Last Admin: 02/03/18 09:47 Dose: 3 mg Tiotropium [place] (Spiriva) 18 mcg INH RQ24 [facility] Tramadol HCl (Ultram) 50 mg PO TID PRN PRN Reason: Pain, moderate (4-7) Last Admin: 02/02/18 09:35 Dose: 50 mg - Labs Labs: 02/03/18 06:18 02/03/18 06:18 PT 22.5 SECONDS (9.7-12.2) H 02/01/18 12:15 INR 2.1 02/01/18 12:15 APTT 28 SECONDS (21-34) 02/01/18 12:15 - Constitutional Appears: Non-toxic, Cachectic, Chronically Ill - Head Exam Head Exam: NORMOCEPHALIC - Eye Exam Eye Exam: PERRL. absent: Scleral icterus - ENT Exam ENT Exam: Mucous Membranes Dry - Neck Exam Neck Exam: absent: Lymphadenopathy - Respiratory Exam Respiratory Exam: Decreased Breath Sounds - Cardiovascular Exam Cardiovascular Exam: REGULAR RHYTHM - GI/Abdominal Exam GI & Abdominal Exam: Distended, Soft - Rectal Exam Rectal Exam: Deferred - Exam Exam: NORMAL INSPECTION - Extremities Exam Extremities Exam: absent: Pedal Edema - Back Exam Back Exam: absent: CVA tenderness (L), CVA tenderness (R) - Neurological Exam Neurological Exam: Alert, Awake, Oriented x3 - Psychiatric Exam Psychiatric exam: Depressed Assessment and Plan (1) Fever Status: Acute (2) Status post kidney transplant Status: Acute (3) HTN (hypertension) Status: Chronic (4) Renal insufficiency Status: Chronic (5) Atrial fibrillation Status: Acute - Assessment and Plan (Free Text) Assessment: CT shows large effusions left knee unclear etiology so far cultures neg t max lower had beenon IV antibiotics as out pt will need ortho eval/ aspiration consider MRI
--- NOTE | 2018-02-03 16:55 | CP.PCM.PCO ---
Physician Communication Note - Physician Communication Note Physician Communication Note: rosuvastatin hed as cubicin added ( risk of interaction)
[2018-02-03] MEDS ORDERED: Linezolid 600 mg in D5W 300 ml 600 MG/300 ML BAG IVPB SCH (17:00)
[2018-02-03] MEDS: DAPTOmycin 500 MG in Sodium Chloride 0.9% 100 ML IV SCH (17:51)
[2018-02-03] MEDS: Linezolid 600 mg in D5W 300 ml 600 MG/300 ML BAG IVPB SCH (17:52)
--- NOTE | 2018-02-03 19:55 | CP.PCM.PN ---
Subjective - Date & Time of Evaluation Date of Evaluation: 02/03/18 Time of Evaluation: 19:52 - Subjective Subjective: Patient has less swelling and less pain of the left knee. Torsemide is on hold. Patient's noticed episodes of hallucinations with Tramadol. Hgb: 7.7. Patient now feels better with better appetite. Remains afebrile. On IV Cubicin and IV Linezoid. Will order PRC transfusion and discontinue Tramadol. Objective - Vital Signs/Intake and Output Vital Signs (last 24 hours): Temp Pulse Resp BP Pulse Ox 98 F 80 20 105/57 L 100 02/03/18 15:58 02/03/18 15:58 02/03/18 15:58 02/03/18 15:58 02/03/18 15:58 - Medications Medications: Current Medications Apixaban (Eliquis) 5 mg PO BID [facility] Last Admin: 02/03/18 17:36 Dose: 5 mg Clonazepam (Klonopin) 1 mg PO DAILY [facility] Colchicine (Colocrys) 0.6 mg PO DAILY [facility] Last Admin: 02/03/18 09:46 Dose: 0.6 mg Diltiazem HCl (Cardizem Cd) 240 mg PO DAILY [facility] Last Admin: 02/03/18 09:46 Dose: 240 mg Folic Acid (Folic Acid) 1 mg PO DAILY [facility] Last Admin: 02/03/18 09:46 Dose: 1 mg Glipizide (Glucotrol Xl) 2.5 mg PO DAILY [facility] Last Admin: 02/03/18 09:47 Dose: 2.5 mg Hydralazine HCl (Apresoline) 25 mg PO TID [facility] Last Admin: 02/03/18 17:36 Dose: Not Given Piperacillin Sod/Tazobactam Sod (Zosyn 3.375 Gm Iv Premix) 3.375 gm in 50 mls @ 100 mls/hr IVPB Q8H [facility] PRN Reason: Protocol Last Admin: 02/03/18 17:32 Dose: 100 mls/hr Linezolid (Zyvox 600mg/300ml D5w) 600 mg in 300 mls @ 200 mls/hr IVPB Q12H [facility] PRN Reason: Protocol Last Admin: 02/03/18 17:52 Dose: 200 mls/hr Daptomycin 500 mg/ Sodium (Chloride) 100 mls @ 100 mls/hr IV Q24H [facility] PRN Reason: Protocol Stop: 02/08/18 17:01 Last Admin: 02/03/18 17:51 Dose: 100 mls/hr Insulin Aspart (Novolog) 0 unit SC ACHS [facility] PRN Reason: Protocol Last Admin: 02/03/18 17:31 Dose: 1 units Isosorbide Mononitrate (Ismo) 20 mg PO TID [facility] Last Admin: 02/03/18 13:17 Dose: 20 mg Levothyroxine Sodium (Synthroid) 175 mcg PO DAILY@0630 [facility] Last Admin: 02/03/18 06:06 Dose: 175 mcg Magnesium Oxide (Mag-Ox) 400 mg PO TID [facility] Last Admin: 02/03/18 17:32 Dose: 400 mg Pantoprazole Sodium (Protonix Ec Tab) 40 mg PO DAILY [facility] Last Admin: 02/03/18 09:46 Dose: 40 mg Potassium Phos/Sodium Phos (Neutra-Phos) 1 pkt PO BID [facility] Last Admin: 02/03/18 17:36 Dose: 1 pkt Prednisone (Prednisone Tab) 5 mg PO DAILY [facility] Last Admin: 02/03/18 09:46 Dose: 5 mg Sodium Bicarbonate (Sodium Bicarbonate Tab) 650 mg PO TID [facility] Last Admin: 02/03/18 17:32 Dose: 650 mg Tacrolimus (Prograf Cap) 3 mg PO BID [facility] Last Admin: 02/03/18 17:36 Dose: 3 mg Tiotropium [place] (Spiriva) 18 mcg INH RQ24 [facility] Tramadol HCl (Ultram) 50 mg PO TID PRN PRN Reason: Pain, moderate (4-7) Last Admin: 02/03/18 18:11 Dose: 50 mg - Labs Labs: 02/03/18 06:18 02/03/18 06:18 PT 22.5 SECONDS (9.7-12.2) H 02/01/18 12:15 INR 2.1 02/01/18 12:15 APTT 28 SECONDS (21-34) 02/01/18 12:15 - Constitutional Appears: No Acute Distress, Chronically Ill - Head Exam Head Exam: NORMAL INSPECTION - Eye Exam Eye Exam: Normal appearance Pupil Exam: NORMAL ACCOMODATION - ENT Exam ENT Exam: Normal Exam - Neck Exam Neck Exam: Normal Inspection - Respiratory Exam Respiratory Exam: Rhonchi - Cardiovascular Exam Cardiovascular Exam: REGULAR RHYTHM, Murmur - GI/Abdominal Exam GI & Abdominal Exam: Soft, Normal Bowel Sounds - Rectal Exam Rectal Exam: Deferred - Extremities Exam Additional comments: Left knee less swollen and less tender. - Back Exam Back Exam: NORMAL INSPECTION - Neurological Exam Neurological Exam: Alert, Awake, Oriented x3 - Psychiatric Exam Psychiatric exam: Anxious - Skin Skin Exam: Dry, Intact, Normal Color, Warm Assessment and Plan (1) Fever Assessment & Plan: IV antibiotics as per Dr Nash( ID). Status: Resolved (2) Status post kidney transplant Status: Acute (3) Atrial fibrillation Status: Chronic (4) Hypertrophic cardiomyopathy Status: Chronic (5) Knee effusion, left Assessment & Plan: R/O gout. Better now. Status: Acute (6) Anemia Assessment & Plan: repeat CBC in AM. Status: Acute
[2018-02-04] MEDS: Albuterol 0.083% Inhal Sol (2.5 mg/3 mL) UD INH SCH ×4 (01:16→19:41)
[2018-02-04] MEDS: Piperacill/Tazo 3.375gm in Dex 3.375 GM/50 ML BAG IVPB SCH ×3 (02:14→17:45)
[2018-02-04] MEDS: Linezolid 600 mg in D5W 300 ml 600 MG/300 ML BAG IVPB SCH ×2 (05:09→18:22)
[2018-02-04] MEDS: Levothyroxine 175 MCG TAB PO SCH (05:31)
[2018-02-04 07:18] LABS: BASO % 0.4 % (0.0-2.0); EOS # 0.1 K/uL (0.0-0.7); EOS % 1.8 % (0.0-4.0); LYMPH # 0.5 K/uL (1.0-4.3); LYMPH % 6.3 % (20.0-40.0); MEAN CELL VOLUME 81.8 fL (80.0-94.0); MEAN CORPUSCULAR HEMOGLOBIN 26.1 pg (27.0-31.0); MEAN PLATELET VOLUME 7.8 fL (7.2-11.7); MONO # 0.6 K/uL (0.0-0.8); MONO % 7.6 % (0.0-10.0); NEUT % 83.9 % (50.0-75.0); NRBC % 0.1 % (0.0-2.0); PLATELET COUNT 261 K/uL (130-400); RBC 3.08 Mil/uL (4.40-5.90); RED CELL DISTRIBUTION WIDTH 20.1 % (11.5-14.5); WHITE BLOOD COUNT 8.3 K/uL (4.8-10.8)
[2018-02-04 08:01] LABS: ALB/GLOB RATIO 0.9 (1.0-2.1); ALBUMIN 2.7 g/dL (3.5-5.0); CALCIUM 7.7 mg/dl (8.6-10.4)
[2018-02-04] MEDS: (Novolog) Insulin Aspart, Recombinant 100 u/ml 10 ml vial SC SCH ×4 (08:26→22:41)
[2018-02-04 09:07] LABS: BANDS 1 % (0-2); LYMPHOCYTE 6 % (20-40); MONOCYTE 7 % (0-10); NEUTROPHIL 86 % (50-75); TOTAL CELLS COUNTED 100
[2018-02-04 09:08] LABS: ANISOCYTOSIS MODERATE; HYPOCHROMIC SLIGHT; PLATELET ESTIMATE NORMAL (NORMAL); POIKILOCYTOSIS SLIGHT; POLYCHROMIC SLIGHT
[2018-02-04 09:13] LABS: OVALOCYTES SLIGHT
[2018-02-04 09:14] LABS: SCHISTOCYTES SLIGHT
[2018-02-04 09:22] LABS: LARGE PLATELETS PRESENT
[2018-02-04] MEDS: Pantoprazole 40 mg EC Tab PO SCH (09:51)
[2018-02-04] MEDS: Magnesium Oxide 400 mg Tab UD PO SCH ×3 (09:51→17:45)
[2018-02-04] MEDS: diltiaZEM 240 mg/24 Hours CD Cap PO SCH (09:52)
[2018-02-04] MEDS: Potassium & Sodium Phosphate PO SCH ×2 (09:53→17:44)
[2018-02-04] MEDS: GlipiZIDE 2.5 mg SR Tab PO SCH (09:54)
--- NOTE | 2018-02-04 10:26 | CP.PCM.PN ---
Subjective - Date & Time of Evaluation Date of Evaluation: 02/04/18 Time of Evaluation: 10:24 - Subjective Subjective: in bed, ongoing knee pain afebrile this morning no chest pain mild SOB with exertion mentions that gets knee tapped every week by Dr disha RODRIGUEZ- as per HPI, other than that 10 point ROS negative Objective - Vital Signs/Intake and Output Vital Signs (last 24 hours): Temp Pulse Resp BP Pulse Ox 97.5 F L 94 H 20 120/72 100 02/04/18 07:00 02/04/18 07:31 02/04/18 07:00 02/04/18 09:54 02/04/18 07:00 Intake and Output: 02/04/18 02/04/18 06:59 18:59 Intake Total 350 Output Total 1000 Balance -650 - Medications Medications: Current Medications Albuterol Sulfate (Albuterol 0.083% Inhal Renu (2.5 Mg/3 Ml) Ud) 2.5 mg INH RQ6 [facility] Last Admin: 02/04/18 08:25 Dose: 2.5 mg Apixaban (Eliquis) 5 mg PO BID [facility] Last Admin: 02/04/18 09:51 Dose: 5 mg Clonazepam (Klonopin) 1 mg PO DAILY [facility] Last Admin: 02/04/18 09:51 Dose: 1 mg Colchicine (Colocrys) 0.6 mg PO DAILY [facility] Last Admin: 02/04/18 09:53 Dose: 0.6 mg Diltiazem HCl (Cardizem Cd) 240 mg PO DAILY [facility] Last Admin: 02/04/18 09:52 Dose: 240 mg Folic Acid (Folic Acid) 1 mg PO DAILY [facility] Last Admin: 02/04/18 09:51 Dose: 1 mg Furosemide (Lasix) 20 mg PO DAILY [facility] Last Admin: 02/04/18 09:54 Dose: 20 mg Glipizide (Glucotrol Xl) 2.5 mg PO DAILY [facility] Last Admin: 02/04/18 09:54 Dose: 2.5 mg Hydralazine HCl (Apresoline) 25 mg PO TID [facility] Last Admin: 02/04/18 09:51 Dose: 25 mg Piperacillin Sod/Tazobactam Sod (Zosyn 3.375 Gm Iv Premix) 3.375 gm in 50 mls @ 100 mls/hr IVPB Q8H [facility] PRN Reason: Protocol Last Admin: 02/04/18 08:35 Dose: 100 mls/hr Linezolid (Zyvox 600mg/300ml D5w) 600 mg in 300 mls @ 200 mls/hr IVPB Q12H [facility] PRN Reason: Protocol Last Admin: 02/04/18 05:09 Dose: 200 mls/hr Daptomycin 500 mg/ Sodium (Chloride) 100 mls @ 100 mls/hr IV Q24H [facility] PRN Reason: Protocol Stop: 02/08/18 17:01 Last Admin: 02/03/18 17:51 Dose: 100 mls/hr Insulin Aspart (Novolog) 0 unit SC ACHS [facility] PRN Reason: Protocol Last Admin: 02/04/18 08:26 Dose: Not Given Isosorbide Mononitrate (Ismo) 20 mg PO TID [facility] Last Admin: 02/04/18 09:53 Dose: 20 mg Levothyroxine Sodium (Synthroid) 175 mcg PO DAILY@0630 [facility] Last Admin: 02/04/18 05:31 Dose: 175 mcg Magnesium Oxide (Mag-Ox) 400 mg PO TID [facility] Last Admin: 02/04/18 09:51 Dose: 400 mg Pantoprazole Sodium (Protonix Ec Tab) 40 mg PO DAILY [facility] Last Admin: 02/04/18 09:51 Dose: 40 mg Potassium Phos/Sodium Phos (Neutra-Phos) 1 pkt PO BID [facility] Last Admin: 02/04/18 09:53 Dose: 1 pkt Prednisone (Prednisone Tab) 5 mg PO DAILY [facility] Last Admin: 02/04/18 09:51 Dose: 5 mg Sodium Bicarbonate (Sodium Bicarbonate Tab) 650 mg PO TID [facility] Last Admin: 02/04/18 09:52 Dose: 650 mg Tacrolimus (Prograf Cap) 3 mg PO BID [facility] Last Admin: 02/04/18 09:53 Dose: 3 mg Tiotropium [place] (Spiriva) 18 mcg INH RQ24 [facility] Tramadol HCl (Ultram) 50 mg PO TID PRN PRN Reason: Pain, moderate (4-7) Last Admin: 02/03/18 18:11 Dose: 50 mg - Labs Labs: 02/04/18 06:55 02/04/18 06:55 PT 22.5 SECONDS (9.7-12.2) H 02/01/18 12:15 INR 2.1 02/01/18 12:15 APTT 28 SECONDS (21-34) 02/01/18 12:15 - Constitutional Appears: Non-toxic, Chronically Ill - Head Exam Head Exam: ATRAUMATIC, NORMOCEPHALIC - Eye Exam Eye Exam: EOMI, PERRL Pupil Exam: NORMAL ACCOMODATION - ENT Exam ENT Exam: Mucous Membranes Moist - Neck Exam Neck Exam: Full ROM - Respiratory Exam Respiratory Exam: Prolonged Expiratory Phase, Wheezes. absent: Rhonchi - Cardiovascular Exam Cardiovascular Exam: REGULAR RHYTHM, +S1, +S2 - GI/Abdominal Exam GI & Abdominal Exam: Soft. absent: Tenderness - Extremities Exam Extremities Exam: absent: Pedal Edema - Neurological Exam Neurological Exam: Alert, Awake, Oriented x3 - Psychiatric Exam Psychiatric exam: Normal Affect, Normal Mood - Skin Skin Exam: Dry, Intact Assessment and Plan (1) Chronic atrial fibrillation Status: Acute (2) DM type 2 (diabetes mellitus, type 2) Status: Acute (3) Hypothyroidism Status: Acute (4) Knee effusion, left Status: Acute (5) Status post kidney transplant Status: Acute (6) HTN (hypertension) Status: Chronic (7) Fever Status: Resolved (8) COPD bronchitis Status: Acute (9) Cardiomyopathy Status: Acute - Assessment and Plan (Free Text) Plan: cr 1.8 today prograf levels pending on cardiazem- monitor closely bp stable cultures remain negative Abx- as per ID ? change PICC line
[2018-02-04] MEDS: DAPTOmycin 500 MG in Sodium Chloride 0.9% 100 ML IV SCH (16:34)
--- NOTE | 2018-02-04 18:32 | CP.PCM.PN ---
Subjective - Date & Time of Evaluation Date of Evaluation: 02/04/18 Time of Evaluation: 18:29 - Subjective Subjective: Patient afebrile, with better appetite. Had left knee arthrocentesis by Dr Avery this AM. Hgb: 8.0 Objective - Vital Signs/Intake and Output Vital Signs (last 24 hours): Temp Pulse Resp BP Pulse Ox 98.4 F 105 H 20 108/74 99 02/04/18 15:01 02/04/18 16:00 02/04/18 15:01 02/04/18 15:01 02/04/18 15:01 Intake and Output: 02/04/18 02/04/18 06:59 18:59 Intake Total 350 Output Total 1000 Balance -650 - Medications Medications: Current Medications Albuterol Sulfate (Albuterol 0.083% Inhal Renu (2.5 Mg/3 Ml) Ud) 2.5 mg INH RQ6 [facility] Last Admin: 02/04/18 14:01 Dose: 2.5 mg Apixaban (Eliquis) 5 mg PO BID [facility] Last Admin: 02/04/18 17:45 Dose: 5 mg Clonazepam (Klonopin) 1 mg PO DAILY [facility] Last Admin: 02/04/18 09:51 Dose: 1 mg Colchicine (Colocrys) 0.6 mg PO DAILY [facility] Last Admin: 02/04/18 09:53 Dose: 0.6 mg Diltiazem HCl (Cardizem Cd) 240 mg PO DAILY [facility] Last Admin: 02/04/18 09:52 Dose: 240 mg Folic Acid (Folic Acid) 1 mg PO DAILY [facility] Last Admin: 02/04/18 09:51 Dose: 1 mg Furosemide (Lasix) 20 mg PO DAILY [facility] Last Admin: 02/04/18 09:54 Dose: 20 mg Glipizide (Glucotrol Xl) 2.5 mg PO DAILY [facility] Last Admin: 02/04/18 09:54 Dose: 2.5 mg Hydralazine HCl (Apresoline) 25 mg PO TID [facility] Last Admin: 02/04/18 17:45 Dose: 25 mg Linezolid (Zyvox 600mg/300ml D5w) 600 mg in 300 mls @ 200 mls/hr IVPB Q12H [facility] PRN Reason: Protocol Last Admin: 02/04/18 18:22 Dose: 200 mls/hr Daptomycin 500 mg/ Sodium (Chloride) 100 mls @ 100 mls/hr IV Q24H [facility] PRN Reason: Protocol Stop: 02/08/18 17:01 Last Admin: 02/04/18 16:34 Dose: 100 mls/hr Insulin Aspart (Novolog) 0 unit SC ACHS [facility] PRN Reason: Protocol Last Admin: 02/04/18 17:43 Dose: 1 units Isosorbide Mononitrate (Ismo) 20 mg PO TID [facility] Last Admin: 02/04/18 17:45 Dose: 20 mg Levothyroxine Sodium (Synthroid) 175 mcg PO DAILY@0630 [facility] Last Admin: 02/04/18 05:31 Dose: 175 mcg Magnesium Oxide (Mag-Ox) 400 mg PO TID [facility] Last Admin: 02/04/18 17:45 Dose: 400 mg Pantoprazole Sodium (Protonix Ec Tab) 40 mg PO DAILY [facility] Last Admin: 02/04/18 09:51 Dose: 40 mg Potassium Phos/Sodium Phos (Neutra-Phos) 1 pkt PO BID [facility] Last Admin: 02/04/18 17:44 Dose: 1 pkt Prednisone (Prednisone Tab) 5 mg PO DAILY [facility] Last Admin: 02/04/18 09:51 Dose: 5 mg Sodium Bicarbonate (Sodium Bicarbonate Tab) 650 mg PO TID [facility] Last Admin: 02/04/18 17:44 Dose: 650 mg Tacrolimus (Prograf Cap) 3 mg PO BID [facility] Last Admin: 02/04/18 17:44 Dose: 3 mg Tiotropium [place] (Spiriva) 18 mcg INH RQ24 [facility] Tramadol HCl (Ultram) 50 mg PO TID PRN PRN Reason: Pain, moderate (4-7) Last Admin: 02/04/18 13:13 Dose: 50 mg - Labs Labs: 02/04/18 06:55 02/04/18 06:55 PT 22.5 SECONDS (9.7-12.2) H 02/01/18 12:15 INR 2.1 02/01/18 12:15 APTT 28 SECONDS (21-34) 02/01/18 12:15 - Constitutional Appears: No Acute Distress, Chronically Ill - Head Exam Head Exam: NORMAL INSPECTION - Eye Exam Eye Exam: Normal appearance - ENT Exam ENT Exam: Normal Exam - Neck Exam Neck Exam: Normal Inspection - Respiratory Exam Respiratory Exam: Wheezes - Cardiovascular Exam Cardiovascular Exam: REGULAR RHYTHM, Murmur - GI/Abdominal Exam GI & Abdominal Exam: Soft, Normal Bowel Sounds - Rectal Exam Rectal Exam: Deferred - Extremities Exam Additional comments: Mild swelling and tenderness of the left knee. - Back Exam Back Exam: NORMAL INSPECTION - Neurological Exam Neurological Exam: Alert, Awake, Oriented x3 - Psychiatric Exam Psychiatric exam: Anxious - Skin Skin Exam: Dry, Intact, Normal Color, Warm Assessment and Plan (1) Fever Assessment & Plan: IV antibiotics as per DR Nash. Status: Resolved (2) Status post kidney transplant Status: Chronic (3) Atrial fibrillation Assessment & Plan: To continue Eliquis and Diltiazem. Status: Chronic (4) Hypertrophic cardiomyopathy Status: Chronic (5) Knee effusion, left Assessment & Plan: Had left knee aspiration this AM by Dr Avery. Status: Chronic (6) Anemia Status: Chronic
--- NOTE | 2018-02-04 22:13 | CP.PCM.PN ---
Subjective - Date & Time of Evaluation Date of Evaluation: 02/04/18 Time of Evaluation: 16:15 - Subjective Subjective: 72 y/o male with a rcurrent left knee effusion. Patient received a kidney transplant 12 years ago. Patient is under treatment for pulmonary fibrosis, hypothyroidism, atrial fibrillation, diabetes mellitus, hypertension, and gout. He recently had an ICD filter changed. Patient is alert, responsive and very cooperative. I explained to the patient that gout is very common in transplant recipients. However, we were not sure of the cause of the knee effusion in his case. He consented to having a knee aspiration. Using sterile technique 38 cc's of yellowish fluid was removed and sent to the lab for culture and analysis. The fluid did not appear to be purulent. Objective - Vital Signs/Intake and Output Vital Signs (last 24 hours): Temp Pulse Resp BP Pulse Ox 98.4 F 105 H 20 108/74 99 02/04/18 15:01 02/04/18 16:00 02/04/18 15:01 02/04/18 15:01 02/04/18 15:01 - Medications Medications: Current Medications Albuterol Sulfate (Albuterol 0.083% Inhal Renu (2.5 Mg/3 Ml) Ud) 2.5 mg INH RQ6 [facility] Last Admin: 02/04/18 19:41 Dose: 2.5 mg Apixaban (Eliquis) 5 mg PO BID [facility] Last Admin: 02/04/18 17:45 Dose: 5 mg Clonazepam (Klonopin) 1 mg PO DAILY [facility] Last Admin: 02/04/18 09:51 Dose: 1 mg Colchicine (Colocrys) 0.6 mg PO DAILY [facility] Last Admin: 02/04/18 09:53 Dose: 0.6 mg Diltiazem HCl (Cardizem Cd) 240 mg PO DAILY [facility] Last Admin: 02/04/18 09:52 Dose: 240 mg Folic Acid (Folic Acid) 1 mg PO DAILY [facility] Last Admin: 02/04/18 09:51 Dose: 1 mg Furosemide (Lasix) 20 mg PO DAILY [facility] Last Admin: 02/04/18 09:54 Dose: 20 mg Glipizide (Glucotrol Xl) 2.5 mg PO DAILY [facility] Last Admin: 02/04/18 09:54 Dose: 2.5 mg Hydralazine HCl (Apresoline) 25 mg PO TID [facility] Last Admin: 02/04/18 17:45 Dose: 25 mg Linezolid (Zyvox 600mg/300ml D5w) 600 mg in 300 mls @ 200 mls/hr IVPB Q12H [facility] PRN Reason: Protocol Last Admin: 02/04/18 18:22 Dose: 200 mls/hr Daptomycin 500 mg/ Sodium (Chloride) 100 mls @ 100 mls/hr IV Q24H [facility] PRN Reason: Protocol Stop: 02/08/18 17:01 Last Admin: 02/04/18 16:34 Dose: 100 mls/hr Insulin Aspart (Novolog) 0 unit SC ACHS [facility] PRN Reason: Protocol Last Admin: 02/04/18 17:43 Dose: 1 units Isosorbide Mononitrate (Ismo) 20 mg PO TID [facility] Last Admin: 02/04/18 17:45 Dose: 20 mg Levothyroxine Sodium (Synthroid) 175 mcg PO DAILY@0630 [facility] Last Admin: 02/04/18 05:31 Dose: 175 mcg Magnesium Oxide (Mag-Ox) 400 mg PO TID [facility] Last Admin: 02/04/18 17:45 Dose: 400 mg Pantoprazole Sodium (Protonix Ec Tab) 40 mg PO DAILY [facility] Last Admin: 02/04/18 09:51 Dose: 40 mg Potassium Phos/Sodium Phos (Neutra-Phos) 1 pkt PO BID [facility] Last Admin: 02/04/18 17:44 Dose: 1 pkt Prednisone (Prednisone Tab) 5 mg PO DAILY [facility] Last Admin: 02/04/18 09:51 Dose: 5 mg Sodium Bicarbonate (Sodium Bicarbonate Tab) 650 mg PO TID [facility] Last Admin: 02/04/18 17:44 Dose: 650 mg Tacrolimus (Prograf Cap) 3 mg PO BID [facility] Last Admin: 02/04/18 17:44 Dose: 3 mg Tiotropium [place] (Spiriva) 18 mcg INH RQ24 [facility] Tramadol HCl (Ultram) 50 mg PO TID PRN PRN Reason: Pain, moderate (4-7) Last Admin: 02/04/18 13:13 Dose: 50 mg - Labs Labs: 02/04/18 06:55 02/04/18 06:55 PT 22.5 SECONDS (9.7-12.2) H 02/01/18 12:15 INR 2.1 02/01/18 12:15 APTT 28 SECONDS (21-34) 02/01/18 12:15 - Constitutional Appears: No Acute Distress - Head Exam Head Exam: NORMOCEPHALIC - Eye Exam Eye Exam: Normal appearance Pupil Exam: NORMAL ACCOMODATION - ENT Exam ENT Exam: Normal Exam - Neck Exam Neck Exam: Normal Inspection - Respiratory Exam Respiratory Exam: Decreased Breath Sounds - Cardiovascular Exam Cardiovascular Exam: Irregular Rhythm - GI/Abdominal Exam GI & Abdominal Exam: Normal Bowel Sounds - Rectal Exam Rectal Exam: Deferred - Exam Exam: NORMAL INSPECTION - Extremities Exam Extremities Exam: Joint Swelling - Back Exam Back Exam: NORMAL INSPECTION - Neurological Exam Neurological Exam: Oriented x3 - Psychiatric Exam Psychiatric exam: Normal Affect - Skin Skin Exam: Normal Color Assessment and Plan (1) Knee effusion, left Status: Chronic (2) Chronic atrial fibrillation Status: Acute (3) DM type 2 (diabetes mellitus, type 2) Status: Acute (4) Gout Status: Acute (5) Hypothyroidism Status: Acute (6) Pulmonary fibrosis Status: Acute
[2018-02-05] MEDS: Albuterol 0.083% Inhal Sol (2.5 mg/3 mL) UD INH SCH ×4 (01:07→19:18)
[2018-02-05] MEDS: Levothyroxine 175 MCG TAB PO SCH (05:43)
[2018-02-05] MEDS: Linezolid 600 mg in D5W 300 ml 600 MG/300 ML BAG IVPB SCH (05:43)
[2018-02-05 06:30] LABS: CALCIUM 7.9 mg/dl (8.6-10.4)
[2018-02-05] MEDS: (Novolog) Insulin Aspart, Recombinant 100 u/ml 10 ml vial SC SCH ×4 (07:43→22:10)
[2018-02-05] MEDS: Magnesium Oxide 400 mg Tab UD PO SCH ×3 (09:14→17:15)
[2018-02-05] MEDS: Pantoprazole 40 mg EC Tab PO SCH (09:14)
[2018-02-05] MEDS: Potassium & Sodium Phosphate PO SCH ×2 (09:14→17:14)
[2018-02-05] MEDS: diltiaZEM 240 mg/24 Hours CD Cap PO SCH (09:14)
[2018-02-05] MEDS: GlipiZIDE 2.5 mg SR Tab PO SCH (09:16)
--- NOTE | 2018-02-05 15:32 | CP.PCM.PN ---
Subjective - Date & Time of Evaluation Date of Evaluation: 02/05/18 Time of Evaluation: 08:00 - Subjective Subjective: renal function worse afeb less pain seen by Rheum IV rx in progress Objective - Vital Signs/Intake and Output Vital Signs (last 24 hours): Temp Pulse Resp BP Pulse Ox 98.1 F 90 20 103/61 94 L 02/05/18 15:18 02/05/18 15:18 02/05/18 15:18 02/05/18 15:18 02/05/18 15:18 Intake and Output: 02/05/18 02/05/18 06:59 18:59 Output Total 100 Balance -100 - Medications Medications: Current Medications Albuterol Sulfate (Albuterol 0.083% Inhal Renu (2.5 Mg/3 Ml) Ud) 2.5 mg INH RQ6 [facility] Last Admin: 02/05/18 13:30 Dose: 2.5 mg Apixaban (Eliquis) 5 mg PO BID [facility] Last Admin: 02/05/18 09:14 Dose: 5 mg Clonazepam (Klonopin) 1 mg PO DAILY [facility] Last Admin: 02/05/18 09:14 Dose: 1 mg Colchicine (Colocrys) 0.6 mg PO DAILY [facility] Last Admin: 02/05/18 09:16 Dose: 0.6 mg Diltiazem HCl (Cardizem Cd) 240 mg PO DAILY [facility] Last Admin: 02/05/18 09:14 Dose: 240 mg Folic Acid (Folic Acid) 1 mg PO DAILY [facility] Last Admin: 02/05/18 09:14 Dose: 1 mg Furosemide (Lasix) 20 mg PO DAILY [facility] Last Admin: 02/05/18 09:14 Dose: 20 mg Glipizide (Glucotrol Xl) 2.5 mg PO DAILY [facility] Last Admin: 02/05/18 09:16 Dose: 2.5 mg Hydralazine HCl (Apresoline) 25 mg PO TID [facility] Last Admin: 02/05/18 13:48 Dose: 25 mg Linezolid (Zyvox 600mg/300ml D5w) 600 mg in 300 mls @ 200 mls/hr IVPB Q12H [facility] PRN Reason: Protocol Last Admin: 02/05/18 05:43 Dose: 200 mls/hr Daptomycin 500 mg/ Sodium (Chloride) 100 mls @ 100 mls/hr IV Q24H [facility] PRN Reason: Protocol Stop: 02/08/18 17:01 Last Admin: 02/04/18 16:34 Dose: 100 mls/hr Insulin Aspart (Novolog) 0 unit SC ACHS [facility] PRN Reason: Protocol Last Admin: 02/05/18 12:40 Dose: Not Given Isosorbide Mononitrate (Ismo) 20 mg PO TID [facility] Last Admin: 02/05/18 13:48 Dose: 20 mg Levothyroxine Sodium (Synthroid) 175 mcg PO DAILY@0630 [facility] Last Admin: 02/05/18 05:43 Dose: 175 mcg Magnesium Oxide (Mag-Ox) 400 mg PO TID [facility] Last Admin: 02/05/18 13:47 Dose: 400 mg Pantoprazole Sodium (Protonix Ec Tab) 40 mg PO DAILY [facility] Last Admin: 02/05/18 09:14 Dose: 40 mg Potassium Phos/Sodium Phos (Neutra-Phos) 1 pkt PO BID [facility] Last Admin: 02/05/18 09:14 Dose: 1 pkt Prednisone (Prednisone Tab) 5 mg PO DAILY [facility] Last Admin: 02/05/18 09:14 Dose: 5 mg Sodium Bicarbonate (Sodium Bicarbonate Tab) 650 mg PO TID [facility] Last Admin: 02/05/18 13:47 Dose: 650 mg Tacrolimus (Prograf Cap) 3 mg PO BID [facility] Last Admin: 02/05/18 09:15 Dose: 3 mg Tiotropium [place] (Spiriva) 18 mcg INH RQ24 [facility] Tramadol HCl (Ultram) 50 mg PO TID PRN PRN Reason: Pain, moderate (4-7) Last Admin: 02/04/18 13:13 Dose: 50 mg - Labs Labs: 02/04/18 06:55 02/05/18 06:14 PT 22.5 SECONDS (9.7-12.2) H 02/01/18 12:15 INR 2.1 02/01/18 12:15 APTT 28 SECONDS (21-34) 02/01/18 12:15 - Constitutional Appears: Non-toxic, Cachectic, Chronically Ill - Head Exam Head Exam: NORMOCEPHALIC - Eye Exam Eye Exam: PERRL - ENT Exam ENT Exam: Mucous Membranes Dry - Neck Exam Neck Exam: absent: Lymphadenopathy - Respiratory Exam Respiratory Exam: Decreased Breath Sounds - Cardiovascular Exam Cardiovascular Exam: REGULAR RHYTHM - GI/Abdominal Exam GI & Abdominal Exam: Distended, Soft - Rectal Exam Rectal Exam: Deferred - Exam Exam: NORMAL INSPECTION Assessment and Plan (1) Fever Status: Resolved (2) Status post kidney transplant Status: Chronic (3) HTN (hypertension) Status: Chronic (4) Renal insufficiency Status: Chronic (5) Atrial fibrillation Status: Chronic - Assessment and Plan (Free Text) Assessment: cont iv rx consider ortho eval await arthrocentesis
[2018-02-05] MEDS: DAPTOmycin 500 MG in Sodium Chloride 0.9% 100 ML IV SCH (17:15)
[2018-02-06] MEDS: Albuterol 0.083% Inhal Sol (2.5 mg/3 mL) UD INH SCH ×4 (01:02→20:01)
[2018-02-06] MEDS: Levothyroxine 175 MCG TAB PO SCH (05:35)
[2018-02-06] MEDS: (Novolog) Insulin Aspart, Recombinant 100 u/ml 10 ml vial SC SCH ×4 (07:40→22:22)
[2018-02-06] MEDS: Pantoprazole 40 mg EC Tab PO SCH (09:24)
[2018-02-06] MEDS: diltiaZEM 240 mg/24 Hours CD Cap PO SCH (09:24)
[2018-02-06] MEDS: Magnesium Oxide 400 mg Tab UD PO SCH (09:24)
[2018-02-06] MEDS: Potassium & Sodium Phosphate PO SCH ×2 (09:25→18:42)
[2018-02-06] MEDS: GlipiZIDE 2.5 mg SR Tab PO SCH (09:25)
--- NOTE | 2018-02-06 11:01 | CP.PCM.PN ---
Subjective - Date & Time of Evaluation Date of Evaluation: 02/06/18 Time of Evaluation: 10:58 - Subjective Subjective: afebrile now on IV ABs- daptomycin, all C+S negative so far s/p left knee tap- no evidence of infection creat increased 2.0, FK level sl decreased 2.9 Objective - Vital Signs/Intake and Output Vital Signs (last 24 hours): Temp Pulse Resp BP Pulse Ox 98.5 F 94 H 20 145/77 99 02/06/18 07:00 02/06/18 07:45 02/06/18 07:00 02/06/18 09:24 02/06/18 07:00 Intake and Output: 02/06/18 02/06/18 06:59 18:59 Intake Total 800 Output Total 100 Balance 700 - Medications Medications: Current Medications Albuterol Sulfate (Albuterol 0.083% Inhal Renu (2.5 Mg/3 Ml) Ud) 2.5 mg INH RQ6 [facility] Last Admin: 02/06/18 07:15 Dose: 2.5 mg Apixaban (Eliquis) 5 mg PO BID [facility] Last Admin: 02/06/18 09:24 Dose: 5 mg Clonazepam (Klonopin) 1 mg PO DAILY [facility] Last Admin: 02/06/18 09:24 Dose: 1 mg Colchicine (Colocrys) 0.6 mg PO DAILY [facility] Last Admin: 02/06/18 09:25 Dose: 0.6 mg Diltiazem HCl (Cardizem Cd) 240 mg PO DAILY [facility] Last Admin: 02/06/18 09:24 Dose: 240 mg Folic Acid (Folic Acid) 1 mg PO DAILY [facility] Last Admin: 02/06/18 09:24 Dose: 1 mg Furosemide (Lasix) 20 mg PO DAILY [facility] Last Admin: 02/06/18 09:24 Dose: 20 mg Glipizide (Glucotrol Xl) 2.5 mg PO DAILY [facility] Last Admin: 02/06/18 09:25 Dose: 2.5 mg Hydralazine HCl (Apresoline) 25 mg PO TID [facility] Last Admin: 02/06/18 09:24 Dose: 25 mg Daptomycin 500 mg/ Sodium (Chloride) 100 mls @ 100 mls/hr IV Q48H [facility] PRN Reason: Protocol Stop: 02/12/18 17:01 Insulin Aspart (Novolog) 0 unit SC ACHS [facility] PRN Reason: Protocol Last Admin: 02/06/18 07:40 Dose: Not Given Isosorbide Mononitrate (Ismo) 20 mg PO TID [facility] Last Admin: 02/06/18 09:25 Dose: 20 mg Levothyroxine Sodium (Synthroid) 175 mcg PO DAILY@0630 [facility] Last Admin: 02/06/18 05:35 Dose: 175 mcg Magnesium Oxide (Mag-Ox) 400 mg PO DAILY [facility] Pantoprazole Sodium (Protonix Ec Tab) 40 mg PO DAILY [facility] Last Admin: 02/06/18 09:24 Dose: 40 mg Potassium Phos/Sodium Phos (Neutra-Phos) 1 pkt PO BID [facility] Last Admin: 02/06/18 09:25 Dose: 1 pkt Prednisone (Prednisone Tab) 5 mg PO DAILY [facility] Last Admin: 02/06/18 09:24 Dose: 5 mg Tacrolimus (Prograf Cap) 3 mg PO BID [facility] Last Admin: 02/06/18 09:25 Dose: 3 mg Tiotropium [place] (Spiriva) 18 mcg INH RQ24 [facility] Tramadol HCl (Ultram) 50 mg PO TID PRN PRN Reason: Pain, moderate (4-7) Last Admin: 02/04/18 13:13 Dose: 50 mg - Labs Labs: 02/04/18 06:55 02/05/18 06:14 PT 22.5 SECONDS (9.7-12.2) H 02/01/18 12:15 INR 2.1 02/01/18 12:15 APTT 28 SECONDS (21-34) 02/01/18 12:15 - Constitutional Appears: No Acute Distress, Chronically Ill - Head Exam Head Exam: ATRAUMATIC, NORMAL INSPECTION - Eye Exam Eye Exam: EOMI, Normal appearance - Neck Exam Neck Exam: Normal Inspection. absent: Tenderness - Respiratory Exam Respiratory Exam: Rhonchi, Respiratory Distress - Cardiovascular Exam Cardiovascular Exam: Irregular Rhythm, +S1 - GI/Abdominal Exam GI & Abdominal Exam: Soft. absent: Tenderness - Extremities Exam Extremities Exam: Normal Inspection. absent: Tenderness - Neurological Exam Neurological Exam: Awake, CN II-XII Intact - Skin Skin Exam: Dry, Warm Assessment and Plan (1) Renal transplant recipient Status: Acute (2) DM type 2 (diabetes mellitus, type 2) Status: Acute (3) Chronic atrial fibrillation Status: Acute (4) Hypothyroidism Status: Acute (5) Pulmonary fibrosis Status: Acute (6) Gout Status: Acute - Assessment and Plan (Free Text) Plan: hold na bicarb decrease mag dose monitor fevers reprat chemistries, FK ;level IV ABs as per ID
--- NOTE | 2018-02-06 12:48 | CP.PCM.PN ---
Subjective - Date & Time of Evaluation Date of Evaluation: 02/06/18 Time of Evaluation: 09:00 - Subjective Subjective: events noted switched to cubiciin drainage neg thus far Objective - Vital Signs/Intake and Output Vital Signs (last 24 hours): Temp Pulse Resp BP Pulse Ox 98.5 F 93 H 20 145/77 99 02/06/18 07:00 02/06/18 11:45 02/06/18 07:00 02/06/18 09:24 02/06/18 07:00 Intake and Output: 02/06/18 02/06/18 06:59 18:59 Intake Total 800 Output Total 100 Balance 700 - Medications Medications: Current Medications Albuterol Sulfate (Albuterol 0.083% Inhal Renu (2.5 Mg/3 Ml) Ud) 2.5 mg INH RQ6 [facility] Last Admin: 02/06/18 07:15 Dose: 2.5 mg Apixaban (Eliquis) 5 mg PO BID [facility] Last Admin: 02/06/18 09:24 Dose: 5 mg Clonazepam (Klonopin) 1 mg PO DAILY [facility] Last Admin: 02/06/18 09:24 Dose: 1 mg Colchicine (Colocrys) 0.6 mg PO DAILY [facility] Last Admin: 02/06/18 09:25 Dose: 0.6 mg Diltiazem HCl (Cardizem Cd) 240 mg PO DAILY [facility] Last Admin: 02/06/18 09:24 Dose: 240 mg Folic Acid (Folic Acid) 1 mg PO DAILY [facility] Last Admin: 02/06/18 09:24 Dose: 1 mg Furosemide (Lasix) 20 mg PO DAILY [facility] Last Admin: 02/06/18 09:24 Dose: 20 mg Glipizide (Glucotrol Xl) 2.5 mg PO DAILY [facility] Last Admin: 02/06/18 09:25 Dose: 2.5 mg Hydralazine HCl (Apresoline) 25 mg PO TID [facility] Last Admin: 02/06/18 09:24 Dose: 25 mg Daptomycin 500 mg/ Sodium (Chloride) 100 mls @ 100 mls/hr IV Q48H [facility] PRN Reason: Protocol Stop: 02/12/18 17:01 Insulin Aspart (Novolog) 0 unit SC ACHS [facility] PRN Reason: Protocol Last Admin: 02/06/18 11:33 Dose: Not Given Isosorbide Mononitrate (Ismo) 20 mg PO TID [facility] Last Admin: 02/06/18 09:25 Dose: 20 mg Levothyroxine Sodium (Synthroid) 175 mcg PO DAILY@0630 [facility] Last Admin: 02/06/18 05:35 Dose: 175 mcg Magnesium Oxide (Mag-Ox) 400 mg PO DAILY [facility] Pantoprazole Sodium (Protonix Ec Tab) 40 mg PO DAILY [facility] Last Admin: 02/06/18 09:24 Dose: 40 mg Potassium Phos/Sodium Phos (Neutra-Phos) 1 pkt PO BID [facility] Last Admin: 02/06/18 09:25 Dose: 1 pkt Prednisone (Prednisone Tab) 5 mg PO DAILY [facility] Last Admin: 02/06/18 09:24 Dose: 5 mg Tacrolimus (Prograf Cap) 3 mg PO BID [facility] Last Admin: 02/06/18 09:25 Dose: 3 mg Tiotropium [place] (Spiriva) 18 mcg INH RQ24 [facility] Tramadol HCl (Ultram) 50 mg PO TID PRN PRN Reason: Pain, moderate (4-7) Last Admin: 02/04/18 13:13 Dose: 50 mg - Labs Labs: 02/04/18 06:55 02/05/18 06:14 PT 22.5 SECONDS (9.7-12.2) H 02/01/18 12:15 INR 2.1 02/01/18 12:15 APTT 28 SECONDS (21-34) 02/01/18 12:15 Assessment and Plan (1) Fever Status: Resolved (2) Status post kidney transplant Status: Chronic (3) HTN (hypertension) Status: Chronic (4) Renal insufficiency Status: Chronic (5) Atrial fibrillation Status: Chronic
[2018-02-06 15:34] LABS: CALCIUM 8.3 mg/dl (8.6-10.4)
--- NOTE | 2018-02-06 18:17 | CP.PCM.PN ---
Subjective - Date & Time of Evaluation Date of Evaluation: 02/06/18 Time of Evaluation: 18:15 - Subjective Subjective: Patient had a short run of v-tach this evening, asymptomatic, afebrile, with less left knee pain. Objective - Vital Signs/Intake and Output Vital Signs (last 24 hours): Temp Pulse Resp BP Pulse Ox 98.5 F 93 H 22 110/78 99 02/06/18 16:00 02/06/18 16:12 02/06/18 16:00 02/06/18 16:00 02/06/18 16:00 Intake and Output: 02/06/18 02/06/18 06:59 18:59 Intake Total 800 Output Total 100 Balance 700 - Medications Medications: Current Medications Albuterol Sulfate (Albuterol 0.083% Inhal Renu (2.5 Mg/3 Ml) Ud) 2.5 mg INH RQ6 [facility] Last Admin: 02/06/18 13:49 Dose: 2.5 mg Apixaban (Eliquis) 5 mg PO BID [facility] Last Admin: 02/06/18 09:24 Dose: 5 mg Clonazepam (Klonopin) 1 mg PO DAILY [facility] Last Admin: 02/06/18 09:24 Dose: 1 mg Colchicine (Colocrys) 0.6 mg PO DAILY [facility] Last Admin: 02/06/18 09:25 Dose: 0.6 mg Diltiazem HCl (Cardizem Cd) 240 mg PO DAILY [facility] Last Admin: 02/06/18 09:24 Dose: 240 mg Folic Acid (Folic Acid) 1 mg PO DAILY [facility] Last Admin: 02/06/18 09:24 Dose: 1 mg Furosemide (Lasix) 20 mg PO DAILY [facility] Last Admin: 02/06/18 09:24 Dose: 20 mg Glipizide (Glucotrol Xl) 2.5 mg PO DAILY [facility] Last Admin: 02/06/18 09:25 Dose: 2.5 mg Hydralazine HCl (Apresoline) 25 mg PO TID [facility] Last Admin: 02/06/18 13:16 Dose: 25 mg Daptomycin 500 mg/ Sodium (Chloride) 100 mls @ 100 mls/hr IV Q48H [facility] PRN Reason: Protocol Stop: 02/12/18 17:01 Insulin Aspart (Novolog) 0 unit SC ACHS [facility] PRN Reason: Protocol Last Admin: 02/06/18 17:06 Dose: Not Given Isosorbide Mononitrate (Ismo) 20 mg PO TID [facility] Last Admin: 02/06/18 13:16 Dose: 20 mg Levothyroxine Sodium (Synthroid) 175 mcg PO DAILY@0630 [facility] Last Admin: 02/06/18 05:35 Dose: 175 mcg Magnesium Oxide (Mag-Ox) 400 mg PO DAILY [facility] Pantoprazole Sodium (Protonix Ec Tab) 40 mg PO DAILY [facility] Last Admin: 02/06/18 09:24 Dose: 40 mg Potassium Phos/Sodium Phos (Neutra-Phos) 1 pkt PO BID [facility] Last Admin: 02/06/18 09:25 Dose: 1 pkt Prednisone (Prednisone Tab) 5 mg PO DAILY [facility] Last Admin: 02/06/18 09:24 Dose: 5 mg Tacrolimus (Prograf Cap) 3 mg PO BID [facility] Last Admin: 02/06/18 09:25 Dose: 3 mg Tiotropium [place] (Spiriva) 18 mcg INH RQ24 [facility] Tramadol HCl (Ultram) 50 mg PO TID PRN PRN Reason: Pain, moderate (4-7) Last Admin: 02/04/18 13:13 Dose: 50 mg - Labs Labs: 02/04/18 06:55 02/06/18 15:14 PT 22.5 SECONDS (9.7-12.2) H 02/01/18 12:15 INR 2.1 02/01/18 12:15 APTT 28 SECONDS (21-34) 02/01/18 12:15 - Constitutional Appears: No Acute Distress, Chronically Ill - Head Exam Head Exam: NORMAL INSPECTION - Eye Exam Eye Exam: Normal appearance Pupil Exam: NORMAL ACCOMODATION - ENT Exam ENT Exam: Normal Exam - Neck Exam Neck Exam: Full ROM - Respiratory Exam Respiratory Exam: Clear to Ausculation Bilateral, NORMAL BREATHING PATTERN - Cardiovascular Exam Cardiovascular Exam: REGULAR RHYTHM, Murmur - GI/Abdominal Exam GI & Abdominal Exam: Soft, Normal Bowel Sounds - Rectal Exam Rectal Exam: Deferred - Exam Exam: NORMAL INSPECTION - Extremities Exam Extremities Exam: Normal Inspection Additional comments: Mild tenderness of the left knee. - Back Exam Back Exam: NORMAL INSPECTION - Neurological Exam Neurological Exam: Alert, Awake, Oriented x3 - Psychiatric Exam Psychiatric exam: Anxious - Skin Skin Exam: Dry, Intact, Normal Color, Warm Assessment and Plan (1) Fever Assessment & Plan: To continue Cubicin and discontinue Vancomycin( worsening of renal function). Status: Resolved (2) Status post kidney transplant Status: Chronic (3) Atrial fibrillation Status: Chronic (4) Hypertrophic cardiomyopathy Status: Chronic (5) Knee effusion, left Status: Chronic (6) Anemia Status: Chronic
[2018-02-07] MEDS: Albuterol 0.083% Inhal Sol (2.5 mg/3 mL) UD INH SCH ×4 (01:57→19:18)
[2018-02-07] MEDS: Levothyroxine 175 MCG TAB PO SCH (06:48)
[2018-02-07] MEDS: (Novolog) Insulin Aspart, Recombinant 100 u/ml 10 ml vial SC SCH ×4 (07:34→21:30)
[2018-02-07 08:15] VITALS: O2SAT 100
[2018-02-07 08:39] LABS: CALCIUM 8.6 mg/dl (8.6-10.4)
[2018-02-07] MEDS: diltiaZEM 240 mg/24 Hours CD Cap PO SCH (09:21)
[2018-02-07] MEDS: Pantoprazole 40 mg EC Tab PO SCH (09:21)
[2018-02-07] MEDS: Potassium & Sodium Phosphate PO SCH ×2 (09:22→18:19)
[2018-02-07] MEDS: GlipiZIDE 2.5 mg SR Tab PO SCH (09:23)
[2018-02-07] MEDS: Magnesium Oxide 400 mg Tab UD PO SCH (09:31)
--- NOTE | 2018-02-07 10:10 | CP.PCM.PN ---
Subjective - Date & Time of Evaluation Date of Evaluation: 02/07/18 Time of Evaluation: 10:08 - Subjective Subjective: seen and examined left knee painful after walk to bathroom no f/c/dizziness/headache/n/v/d/sob/cough Objective - Vital Signs/Intake and Output Vital Signs (last 24 hours): Temp Pulse Resp BP Pulse Ox 98.2 F 95 H 18 159/81 H 100 02/07/18 07:30 02/07/18 07:30 02/07/18 07:30 02/07/18 09:21 02/07/18 07:30 - Medications Medications: Current Medications Albuterol Sulfate (Albuterol 0.083% Inhal Renu (2.5 Mg/3 Ml) Ud) 2.5 mg INH RQ6 [facility] Last Admin: 02/07/18 01:57 Dose: 2.5 mg Apixaban (Eliquis) 5 mg PO BID [facility] Last Admin: 02/07/18 09:21 Dose: 5 mg Clonazepam (Klonopin) 1 mg PO DAILY [facility] Last Admin: 02/07/18 09:21 Dose: 1 mg Colchicine (Colocrys) 0.6 mg PO DAILY [facility] Last Admin: 02/07/18 09:22 Dose: 0.6 mg Diltiazem HCl (Cardizem Cd) 240 mg PO DAILY [facility] Last Admin: 02/07/18 09:21 Dose: 240 mg Folic Acid (Folic Acid) 1 mg PO DAILY [facility] Last Admin: 02/07/18 09:21 Dose: 1 mg Furosemide (Lasix) 20 mg PO DAILY [facility] Last Admin: 02/07/18 09:21 Dose: 20 mg Glipizide (Glucotrol Xl) 2.5 mg PO DAILY [facility] Last Admin: 02/07/18 09:23 Dose: 2.5 mg Hydralazine HCl (Apresoline) 25 mg PO TID [facility] Last Admin: 02/07/18 09:21 Dose: 25 mg Daptomycin 500 mg/ Sodium (Chloride) 100 mls @ 100 mls/hr IV Q48H [facility] PRN Reason: Protocol Stop: 02/12/18 17:01 Insulin Aspart (Novolog) 0 unit SC ACHS [facility] PRN Reason: Protocol Last Admin: 02/07/18 07:34 Dose: Not Given Isosorbide Mononitrate (Ismo) 20 mg PO TID [facility] Last Admin: 02/07/18 09:23 Dose: 20 mg Levothyroxine Sodium (Synthroid) 175 mcg PO DAILY@0630 [facility] Last Admin: 02/07/18 06:48 Dose: 175 mcg Magnesium Oxide (Mag-Ox) 400 mg PO DAILY [facility] Last Admin: 02/07/18 09:31 Dose: 400 mg Pantoprazole Sodium (Protonix Ec Tab) 40 mg PO DAILY [facility] Last Admin: 02/07/18 09:21 Dose: 40 mg Potassium Phos/Sodium Phos (Neutra-Phos) 1 pkt PO BID [facility] Last Admin: 02/07/18 09:22 Dose: 1 pkt Prednisone (Prednisone Tab) 5 mg PO DAILY [facility] Last Admin: 02/07/18 09:21 Dose: 5 mg Tacrolimus (Prograf Cap) 3 mg PO BID [facility] Last Admin: 02/07/18 09:21 Dose: 3 mg Tiotropium [place] (Spiriva) 18 mcg INH RQ24 [facility] Tramadol HCl (Ultram) 50 mg PO TID PRN PRN Reason: Pain, moderate (4-7) Last Admin: 02/04/18 13:13 Dose: 50 mg - Labs Labs: 02/04/18 06:55 02/07/18 08:07 PT 22.5 SECONDS (9.7-12.2) H 02/01/18 12:15 INR 2.1 02/01/18 12:15 APTT 28 SECONDS (21-34) 02/01/18 12:15 - Constitutional Appears: No Acute Distress, Cachectic, Chronically Ill - Head Exam Head Exam: NORMAL INSPECTION, NORMOCEPHALIC - Eye Exam Eye Exam: Normal appearance Pupil Exam: NORMAL ACCOMODATION - ENT Exam ENT Exam: Mucous Membranes Moist, Normal Exam - Neck Exam Neck Exam: Full ROM, Normal Inspection - Respiratory Exam Respiratory Exam: Clear to Ausculation Bilateral, NORMAL BREATHING PATTERN - Cardiovascular Exam Cardiovascular Exam: REGULAR RHYTHM, RRR - GI/Abdominal Exam GI & Abdominal Exam: Distended, Soft - Extremities Exam Extremities Exam: Normal Inspection (left knee swelling) - Back Exam Back Exam: NORMAL INSPECTION - Neurological Exam Neurological Exam: Alert, Awake, Oriented x3 - Psychiatric Exam Psychiatric exam: Normal Affect, Normal Mood - Skin Skin Exam: Normal Color, Warm Assessment and Plan (1) Chronic atrial fibrillation Status: Acute (2) DM type 2 (diabetes mellitus, type 2) Status: Acute (3) Gout Status: Acute (4) Renal transplant recipient Status: Acute (5) HTN (hypertension) Status: Chronic (6) Knee effusion, left Status: Chronic - Assessment and Plan (Free Text) Assessment: chronic left knee effusion hx of gout renal transplant recipient, ckd 3 stable htn dm plan: stable renal function. watch potassium, consider dc neutra phos antibiotic course per ID monitor fk level
[2018-02-07 17:09] VITALS: RESP 20
--- NOTE | 2018-02-07 23:26 | CP.PCM.PN ---
Subjective - Date & Time of Evaluation Date of Evaluation: 02/07/18 Time of Evaluation: 20:30 - Subjective Subjective: Patient afebrile, feels better, with less left knee pain. Left knee aspirate culture shows no bacterial grow, and gram stain was normal. Existing PICC line not working. Have PICC line inserted by IR in Am and will be discharged home on Cubicin qod as per Dr Nash. Objective - Vital Signs/Intake and Output Vital Signs (last 24 hours): Temp Pulse Resp BP Pulse Ox 98.8 F 90 20 126/74 100 02/07/18 16:00 02/07/18 16:00 02/07/18 16:00 02/07/18 16:00 02/07/18 16:00 Intake and Output: 02/07/18 02/08/18 18:59 06:59 Intake Total 480 Balance 480 - Medications Medications: Current Medications Albuterol Sulfate (Albuterol 0.083% Inhal Renu (2.5 Mg/3 Ml) Ud) 2.5 mg INH RQ6 [facility] Last Admin: 02/07/18 19:18 Dose: Not Given Apixaban (Eliquis) 5 mg PO BID [facility] Last Admin: 02/07/18 18:19 Dose: 5 mg Clonazepam (Klonopin) 1 mg PO DAILY [facility] Last Admin: 02/07/18 09:21 Dose: 1 mg Colchicine (Colocrys) 0.6 mg PO DAILY [facility] Last Admin: 02/07/18 09:22 Dose: 0.6 mg Diltiazem HCl (Cardizem Cd) 240 mg PO DAILY [facility] Last Admin: 02/07/18 09:21 Dose: 240 mg Folic Acid (Folic Acid) 1 mg PO DAILY [facility] Last Admin: 02/07/18 09:21 Dose: 1 mg Furosemide (Lasix) 20 mg PO DAILY [facility] Last Admin: 02/07/18 09:21 Dose: 20 mg Glipizide (Glucotrol Xl) 2.5 mg PO DAILY [facility] Last Admin: 02/07/18 09:23 Dose: 2.5 mg Hydralazine HCl (Apresoline) 25 mg PO TID [facility] Last Admin: 02/07/18 18:19 Dose: 25 mg Daptomycin 320 mg/ Sodium (Chloride) 100 mls @ 100 mls/hr IV Q48H [facility] PRN Reason: Protocol Stop: 02/12/18 17:01 Last Admin: 02/07/18 17:23 Dose: Not Given Insulin Aspart (Novolog) 0 unit SC ACHS [facility] PRN Reason: Protocol Last Admin: 02/07/18 21:30 Dose: Not Given Isosorbide Mononitrate (Ismo) 20 mg PO TID [facility] Last Admin: 02/07/18 18:19 Dose: 20 mg Levothyroxine Sodium (Synthroid) 175 mcg PO DAILY@0630 [facility] Last Admin: 02/07/18 06:48 Dose: 175 mcg Magnesium Oxide (Mag-Ox) 400 mg PO DAILY [facility] Last Admin: 02/07/18 09:31 Dose: 400 mg Pantoprazole Sodium (Protonix Ec Tab) 40 mg PO DAILY [facility] Last Admin: 02/07/18 09:21 Dose: 40 mg Potassium Phos/Sodium Phos (Neutra-Phos) 1 pkt PO BID [facility] Last Admin: 02/07/18 18:19 Dose: 1 pkt Prednisone (Prednisone Tab) 5 mg PO DAILY [facility] Last Admin: 02/07/18 09:21 Dose: 5 mg Tacrolimus (Prograf Cap) 3 mg PO BID [facility] Last Admin: 02/07/18 18:19 Dose: 3 mg Tiotropium [place] (Spiriva) 18 mcg INH RQ24 [facility] Tramadol HCl (Ultram) 50 mg PO TID PRN PRN Reason: Pain, moderate (4-7) Last Admin: 02/04/18 13:13 Dose: 50 mg - Labs Labs: 02/04/18 06:55 02/07/18 08:07 PT 22.5 SECONDS (9.7-12.2) H 02/01/18 12:15 INR 2.1 02/01/18 12:15 APTT 28 SECONDS (21-34) 02/01/18 12:15 - Constitutional Appears: No Acute Distress, Chronically Ill - Head Exam Head Exam: NORMAL INSPECTION - Eye Exam Eye Exam: Normal appearance - ENT Exam ENT Exam: Normal Exam - Neck Exam Neck Exam: Normal Inspection - Respiratory Exam Respiratory Exam: Clear to Ausculation Bilateral, NORMAL BREATHING PATTERN - Cardiovascular Exam Cardiovascular Exam: REGULAR RHYTHM, Murmur - GI/Abdominal Exam GI & Abdominal Exam: Soft, Normal Bowel Sounds - Rectal Exam Rectal Exam: Deferred - Exam Exam: NORMAL INSPECTION - Extremities Exam Extremities Exam: Normal Inspection Additional comments: Left knee slightly swollen but not tender. - Back Exam Back Exam: NORMAL INSPECTION - Neurological Exam Neurological Exam: Alert, Awake, Oriented x3 - Psychiatric Exam Psychiatric exam: Anxious - Skin Skin Exam: Dry, Intact, Normal Color Assessment and Plan (1) Fever Assessment & Plan: To continue IV Cubicin as per Dr Nash. Status: Resolved (2) Status post kidney transplant Status: Chronic (3) Atrial fibrillation Status: Chronic (4) Hypertrophic cardiomyopathy Status: Chronic (5) Knee effusion, left Status: Chronic (6) Anemia Status: Chronic
[2018-02-08] MEDS: Albuterol 0.083% Inhal Sol (2.5 mg/3 mL) UD INH SCH ×3 (01:19→14:00)
[2018-02-08] MEDS: Levothyroxine 175 MCG TAB PO SCH (06:24)
[2018-02-08] MEDS: (Novolog) Insulin Aspart, Recombinant 100 u/ml 10 ml vial SC SCH ×2 (08:21→11:38)
[2018-02-08 08:22] VITALS: PULSE 89; TEMP 98.9
[2018-02-08] MEDS: Potassium & Sodium Phosphate PO SCH (10:28)
[2018-02-08] MEDS: diltiaZEM 240 mg/24 Hours CD Cap PO SCH (10:28)
[2018-02-08] MEDS: Magnesium Oxide 400 mg Tab UD PO SCH (10:28)
[2018-02-08 10:29] VITALS: BP 190/78
[2018-02-08] MEDS: Pantoprazole 40 mg EC Tab PO SCH (10:29)
[2018-02-08] MEDS: GlipiZIDE 2.5 mg SR Tab PO SCH (10:40)
--- NOTE | 2018-02-08 13:32 | CP.PCM.PN ---
Subjective - Date & Time of Evaluation Date of Evaluation: 02/08/18 Time of Evaluation: 13:30 - Subjective Subjective: feels weak afebrile still left knee better renal function stable needs new PICC repeat FK level better Objective - Vital Signs/Intake and Output Vital Signs (last 24 hours): Temp Pulse Resp BP Pulse Ox 98.9 F 89 20 190/78 H 100 02/08/18 07:00 02/08/18 07:00 02/08/18 07:00 02/08/18 10:29 02/08/18 07:00 Intake and Output: 02/08/18 02/08/18 06:59 18:59 Intake Total 480 Output Total 150 Balance 330 - Medications Medications: Current Medications Albuterol Sulfate (Albuterol 0.083% Inhal Renu (2.5 Mg/3 Ml) Ud) 2.5 mg INH RQ6 [facility] Last Admin: 02/08/18 07:30 Dose: 2.5 mg Apixaban (Eliquis) 5 mg PO BID [facility] Last Admin: 02/08/18 10:29 Dose: 5 mg Clonazepam (Klonopin) 1 mg PO DAILY [facility] Last Admin: 02/08/18 10:28 Dose: 1 mg Colchicine (Colocrys) 0.6 mg PO DAILY [facility] Last Admin: 02/08/18 10:28 Dose: 0.6 mg Diltiazem HCl (Cardizem Cd) 240 mg PO DAILY [facility] Last Admin: 02/08/18 10:28 Dose: 240 mg Folic Acid (Folic Acid) 1 mg PO DAILY [facility] Last Admin: 02/08/18 10:28 Dose: 1 mg Furosemide (Lasix) 20 mg PO DAILY [facility] Last Admin: 02/08/18 10:29 Dose: 20 mg Glipizide (Glucotrol Xl) 2.5 mg PO DAILY [facility] Last Admin: 02/08/18 10:40 Dose: Not Given Hydralazine HCl (Apresoline) 25 mg PO TID [facility] Last Admin: 02/08/18 10:29 Dose: 25 mg Daptomycin 320 mg/ Sodium (Chloride) 100 mls @ 100 mls/hr IV Q48H [facility] PRN Reason: Protocol Stop: 02/12/18 17:01 Last Admin: 02/07/18 17:23 Dose: Not Given Insulin Aspart (Novolog) 0 unit SC ACHS [facility] PRN Reason: Protocol Last Admin: 02/08/18 11:38 Dose: Not Given Isosorbide Mononitrate (Ismo) 20 mg PO TID [facility] Last Admin: 02/08/18 10:28 Dose: 20 mg Levothyroxine Sodium (Synthroid) 175 mcg PO DAILY@0630 [facility] Last Admin: 02/08/18 06:24 Dose: 175 mcg Magnesium Oxide (Mag-Ox) 400 mg PO DAILY [facility] Last Admin: 02/08/18 10:28 Dose: 400 mg Pantoprazole Sodium (Protonix Ec Tab) 40 mg PO DAILY [facility] Last Admin: 02/08/18 10:29 Dose: 40 mg Potassium Phos/Sodium Phos (Neutra-Phos) 1 pkt PO BID [facility] Last Admin: 02/08/18 10:28 Dose: 1 pkt Prednisone (Prednisone Tab) 5 mg PO DAILY [facility] Last Admin: 02/08/18 10:28 Dose: 5 mg Tacrolimus (Prograf Cap) 3 mg PO BID [facility] Last Admin: 02/08/18 10:28 Dose: 3 mg Tiotropium [place] (Spiriva) 18 mcg INH RQ24 [facility] Tramadol HCl (Ultram) 50 mg PO TID PRN PRN Reason: Pain, moderate (4-7) Last Admin: 02/08/18 10:28 Dose: 50 mg - Labs Labs: 02/04/18 06:55 02/07/18 08:07 PT 22.5 SECONDS (9.7-12.2) H 02/01/18 12:15 INR 2.1 02/01/18 12:15 APTT 28 SECONDS (21-34) 02/01/18 12:15 - Constitutional Appears: No Acute Distress, Chronically Ill - Head Exam Head Exam: ATRAUMATIC, NORMAL INSPECTION - Eye Exam Eye Exam: EOMI, Normal appearance - Neck Exam Neck Exam: Normal Inspection. absent: Tenderness - Respiratory Exam Respiratory Exam: Rhonchi, Respiratory Distress - Cardiovascular Exam Cardiovascular Exam: REGULAR RHYTHM, +S1 - GI/Abdominal Exam GI & Abdominal Exam: Soft. absent: Tenderness - Extremities Exam Extremities Exam: Normal Inspection. absent: Tenderness - Neurological Exam Neurological Exam: Awake, CN II-XII Intact - Skin Skin Exam: Dry, Warm Assessment and Plan (1) Renal transplant recipient Status: Acute (2) DM type 2 (diabetes mellitus, type 2) Status: Acute (3) Chronic atrial fibrillation Status: Acute (4) Hypothyroidism Status: Acute (5) Pulmonary fibrosis Status: Acute (6) Gout Status: Acute - Assessment and Plan (Free Text) Plan: continue to monitor renal function same IV ABs as per ID monitor for fevers
--- NOTE | 2018-02-08 15:38 | CP.PCM.PN ---
Subjective - Date & Time of Evaluation Date of Evaluation: 02/08/18 Time of Evaluation: 10:00 - Subjective Subjective: IMPROVING ON CUBICIN NEW PICC IN PLACE AFEBRILE ALL CULTURES NEG Objective - Vital Signs/Intake and Output Vital Signs (last 24 hours): Temp Pulse Resp BP Pulse Ox 98.9 F 89 20 190/78 H 100 02/08/18 07:00 02/08/18 07:00 02/08/18 07:00 02/08/18 10:29 02/08/18 07:00 Intake and Output: 02/08/18 02/08/18 06:59 18:59 Intake Total 480 Output Total 150 Balance 330 - Medications Medications: Current Medications Albuterol Sulfate (Albuterol 0.083% Inhal Renu (2.5 Mg/3 Ml) Ud) 2.5 mg INH RQ6 [facility] Last Admin: 02/08/18 14:00 Dose: 2.5 mg Apixaban (Eliquis) 5 mg PO BID [facility] Last Admin: 02/08/18 10:29 Dose: 5 mg Clonazepam (Klonopin) 1 mg PO DAILY [facility] Last Admin: 02/08/18 10:28 Dose: 1 mg Colchicine (Colocrys) 0.6 mg PO DAILY [facility] Last Admin: 02/08/18 10:28 Dose: 0.6 mg Diltiazem HCl (Cardizem Cd) 240 mg PO DAILY [facility] Last Admin: 02/08/18 10:28 Dose: 240 mg Folic Acid (Folic Acid) 1 mg PO DAILY [facility] Last Admin: 02/08/18 10:28 Dose: 1 mg Furosemide (Lasix) 20 mg PO DAILY [facility] Last Admin: 02/08/18 10:29 Dose: 20 mg Glipizide (Glucotrol Xl) 2.5 mg PO DAILY [facility] Last Admin: 02/08/18 10:40 Dose: Not Given Hydralazine HCl (Apresoline) 25 mg PO TID [facility] Last Admin: 02/08/18 14:13 Dose: 25 mg Daptomycin 320 mg/ Sodium (Chloride) 100 mls @ 100 mls/hr IV Q48H [facility] PRN Reason: Protocol Stop: 02/12/18 17:01 Last Admin: 02/07/18 17:23 Dose: Not Given Insulin Aspart (Novolog) 0 unit SC ACHS [facility] PRN Reason: Protocol Last Admin: 02/08/18 11:38 Dose: Not Given Isosorbide Mononitrate (Ismo) 20 mg PO TID [facility] Last Admin: 02/08/18 14:13 Dose: 20 mg Levothyroxine Sodium (Synthroid) 175 mcg PO DAILY@0630 [facility] Last Admin: 02/08/18 06:24 Dose: 175 mcg Magnesium Oxide (Mag-Ox) 400 mg PO DAILY [facility] Last Admin: 02/08/18 10:28 Dose: 400 mg Pantoprazole Sodium (Protonix Ec Tab) 40 mg PO DAILY [facility] Last Admin: 02/08/18 10:29 Dose: 40 mg Potassium Phos/Sodium Phos (Neutra-Phos) 1 pkt PO BID [facility] Last Admin: 02/08/18 10:28 Dose: 1 pkt Prednisone (Prednisone Tab) 5 mg PO DAILY [facility] Last Admin: 02/08/18 10:28 Dose: 5 mg Tacrolimus (Prograf Cap) 3 mg PO BID [facility] Last Admin: 02/08/18 10:28 Dose: 3 mg Tiotropium [place] (Spiriva) 18 mcg INH RQ24 [facility] Tramadol HCl (Ultram) 50 mg PO TID PRN PRN Reason: Pain, moderate (4-7) Last Admin: 02/08/18 10:28 Dose: 50 mg - Labs Labs: 02/04/18 06:55 02/07/18 08:07 PT 22.5 SECONDS (9.7-12.2) H 02/01/18 12:15 INR 2.1 02/01/18 12:15 APTT 28 SECONDS (21-34) 02/01/18 12:15 - Constitutional Appears: Non-toxic, Chronically Ill - Head Exam Head Exam: NORMOCEPHALIC - Eye Exam Eye Exam: PERRL - ENT Exam ENT Exam: Mucous Membranes Dry - Neck Exam Neck Exam: absent: Lymphadenopathy - Respiratory Exam Respiratory Exam: Decreased Breath Sounds - Cardiovascular Exam Cardiovascular Exam: REGULAR RHYTHM - GI/Abdominal Exam GI & Abdominal Exam: Distended, Soft - Rectal Exam Rectal Exam: Deferred - Exam Exam: NORMAL INSPECTION - Extremities Exam Extremities Exam: absent: Pedal Edema - Back Exam Back Exam: absent: CVA tenderness (L), CVA tenderness (R) - Neurological Exam Neurological Exam: Alert, Awake, Oriented x3 - Psychiatric Exam Psychiatric exam: Normal Mood - Skin Skin Exam: Dry Assessment and Plan (1) Fever Status: Resolved (2) Status post kidney transplant Status: Chronic (3) HTN (hypertension) Status: Chronic (4) Renal insufficiency Status: Chronic (5) Atrial fibrillation Status: Chronic - Assessment and Plan (Free Text) Assessment: CONT CUBICIN X 6 MORE DOSES TO COMPLETE 3 WEEKS TOTAL FOLLOW UP WITH DR JUAREZ AND [facility]
--- NOTE | 2018-02-09 07:55 | CP.PCM.PN ---
Subjective - Date & Time of Evaluation Date of Evaluation: 02/09/18 Time of Evaluation: 14:00 Objective - Vital Signs/Intake and Output Vital Signs (last 24 hours): Temp Pulse Resp BP Pulse Ox 98.9 F 89 20 190/78 H 100 02/08/18 07:00 02/08/18 07:00 02/08/18 07:00 02/08/18 10:29 02/08/18 07:00 - Labs Labs: 02/04/18 06:55 02/07/18 08:07 PT 22.5 SECONDS (9.7-12.2) H 02/01/18 12:15 INR 2.1 02/01/18 12:15 APTT 28 SECONDS (21-34) 02/01/18 12:15
--- NOTE | 2018-02-09 08:41 | CP.PCM.DIS ---
Provider - Provider Date of Admission: 02/01/18 12:06 Attending physician: Reji Bradshaw MD Primary care physician: Dr CHRISTIAN Kohler Consults: Dr Nash (ID ) Dr Morrissey ( Renal) Dr Avery ( Rheumatology). Time Spent in preparation of Discharge (in minutes): 45 Diagnosis - Discharge Diagnosis (1) Fever Status: Resolved (2) Status post kidney transplant Status: Chronic (3) Atrial fibrillation Status: Chronic (4) Hypertrophic cardiomyopathy Status: Chronic (5) Knee effusion, left Status: Chronic (6) Anemia Status: Chronic Hospital Course - Lab Results Lab Results: Micro Results 02/04/18 19:23 Body Fluid - Knee-Left Gram Stain - Final 02/04/18 19:23 Body Fluid - Knee-Left Body Fluid Culture - Final No growth. 02/01/18 15:08 Blood Blood Culture - Final NO GROWTH AFTER 5 DAYS 02/01/18 15:08 Blood Gram Stain - Final TEST NOT PERFORMED 02/01/18 15:08 Blood Blood Culture - Final NO GROWTH AFTER 5 DAYS 02/01/18 15:08 Blood Gram Stain - Final TEST NOT PERFORMED 02/05/18 06:14 Urine,Clean Catch Urine Culture - Final No Growth (<1,000 CFU/ML) 02/01/18 13:36 Urine,Clean Catch Urine Culture - Final No Growth (<1,000 CFU/ML) Most Recent Lab Values WBC 8.3 K/uL (4.8-10.8) 02/04/18 06:55 RBC 3.08 Mil/uL (4.40-5.90) L 02/04/18 06:55 Hgb 8.0 g/dL (12.0-18.0) L 02/04/18 06:55 Hct 25.2 % (35.0-51.0) L 02/04/18 06:55 MCV 81.8 fL (80.0-94.0) 02/04/18 06:55 MCH 26.1 pg (27.0-31.0) L 02/04/18 06:55 MCHC 32.0 g/dL (33.0-37.0) L 02/04/18 06:55 RDW 20.1 % (11.5-14.5) H 02/04/18 06:55 Plt Count 261 K/uL (130-400) 02/04/18 06:55 MPV 7.8 fL (7.2-11.7) 02/04/18 06:55 Neut % (Auto) 83.9 % (50.0-75.0) H 02/04/18 06:55 Lymph % (Auto) 6.3 % (20.0-40.0) L 02/04/18 06:55 [place] % (Auto) 7.6 % (0.0-10.0) 02/04/18 06:55 Eos % (Auto) 1.8 % (0.0-4.0) 02/04/18 06:55 Baso % (Auto) 0.4 % (0.0-2.0) 02/04/18 06:55 Neut # (Auto) 7.0 K/uL (1.8-7.0) 02/04/18 06:55 Lymph # (Auto) 0.5 K/uL (1.0-4.3) L 02/04/18 06:55 [place] # (Auto) 0.6 K/uL (0.0-0.8) 02/04/18 06:55 Eos # (Auto) 0.1 K/uL (0.0-0.7) 02/04/18 06:55 Baso # (Auto) 0.0 K/uL (0.0-0.2) 02/04/18 06:55 Neutrophils % (Manual) 86 % (50-75) H 02/04/18 06:55 Band Neutrophils % 1 % (0-2) 02/04/18 06:55 Lymphocytes % (Manual) 6 % (20-40) L 02/04/18 06:55 Monocytes % (Manual) 7 % (0-10) 02/04/18 06:55 Eosinophils % (Manual) 1 % (0-4) 02/02/18 06:38 Platelet Estimate Normal (NORMAL) 02/04/18 06:55 Large Platelets Present 02/04/18 06:55 Polychromasia Slight 02/04/18 06:55 Hypochromasia (manual) Slight 02/04/18 06:55 Poikilocytosis (manual Slight 02/04/18 06:55 Anisocytosis (manual) Moderate 02/04/18 06:55 Tear Drop Cells Slight 02/02/18 06:38 Ovalocytes Slight 02/04/18 06:55 Schistocytes Slight 02/04/18 06:55 ESR 127 mm/hr (0-15) H 02/03/18 06:18 PT 22.5 SECONDS (9.7-12.2) H 02/01/18 12:15 INR 2.1 02/01/18 12:15 APTT 28 SECONDS (21-34) 02/01/18 12:15 pO2 49 mm/Hg (30-55) 02/01/18 14:36 VBG pH 7.38 (7.32-7.43) 02/01/18 14:36 VBG pCO2 38 mmHg (40-60) L 02/01/18 14:36 VBG HCO3 22.8 mmol/L 02/01/18 14:36 VBG Total CO2 23.7 mmol/L (22-28) 02/01/18 14:36 VBG O2 Sat (Calc) 89.0 % (40-65) H 02/01/18 14:36 VBG Base Excess -2.3 mmol/L (0.0-2.0) L 02/01/18 14:36 VBG Potassium 3.2 mmol/L (3.6-5.2) L 02/01/18 14:36 Sodium 134.0 mmol/l (132-148) 02/01/18 14:36 Chloride 101.0 mmol/L (98-107) 02/01/18 14:36 Glucose 140 mg/dl (75-110) H 02/01/18 14:36 Lactate 0.7 mmol/L (0.7-2.1) 02/01/18 14:36 Sodium 136 mmol/L (132-148) 02/07/18 08:07 Potassium 5.0 mmol/L (3.6-5.2) 02/07/18 08:07 Chloride 101 mmol/L (98-107) 02/07/18 08:07 Carbon Dioxide 27 mmol/L (22-30) 02/07/18 08:07 Anion Gap 13 (10-20) 02/07/18 08:07 BUN 22 mg/dL (9-20) H 02/07/18 08:07 Creatinine 1.8 mg/dL (0.8-1.5) H 02/07/18 08:07 Est GFR ( Amer) 45 02/07/18 08:07 Est GFR (Non-Af Amer) 37 02/07/18 08:07 POC Glucose (mg/dL) 108 mg/dL (65-110) 02/08/18 11:37 Random Glucose 79 mg/dL (75-110) 02/07/18 08:07 Lactic Acid 0.9 mmol/L (0.7-2.1) 02/01/18 20:38 Uric Acid 6.0 mg/dL (3.5-8.5) 02/04/18 06:55 Calcium 8.6 mg/dl (8.6-10.4) 02/07/18 08:07 Phosphorus 4.0 mg/dL (2.5-4.5) 02/07/18 08:07 Magnesium 1.8 mg/dL (1.6-2.3) 02/07/18 08:07 Total Bilirubin 0.3 mg/dL (0.2-1.3) 02/07/18 08:07 AST 21 U/L (17-59) 02/07/18 08:07 ALT 21 U/L (21-72) D 02/07/18 08:07 Alkaline Phosphatase 63 U/L (38-126) 02/07/18 08:07 CK-MB (Mass) 0.87 ng/mL (0.0-3.38) 02/01/18 14:16 Troponin I 0.1330 ng/mL (0.00-0.120) H* 02/01/18 12:15 Total Protein 6.1 g/dL (6.3-8.3) L 02/07/18 08:07 Albumin 3.0 g/dL (3.5-5.0) L 02/07/18 08:07 Globulin 3.1 gm/dL (2.2-3.9) 02/07/18 08:07 Albumin/Globulin Ratio 1.0 (1.0-2.1) 02/07/18 08:07 Procalcitonin 0.75 NG/ML (0.19-0.49) H 02/06/18 07:11 Venous Blood Potassium 3.2 mmol/L (3.6-5.2) L 02/01/18 14:36 Urine Color Yellow (YELLOW) 02/01/18 13:36 Urine Clarity Clear (Clear) 02/01/18 13:36 Urine pH 6.0 (5.0-8.0) 02/01/18 13:36 Ur Specific [place] 1.014 (1.003-1.030) 02/01/18 13:36 Urine Protein 1+ mg/dL (NEGATIVE) H 02/01/18 13:36 Urine Glucose (UA) Normal mg/dL (Normal) 02/01/18 13:36 Urine Ketones Negative mg/dL (NEGATIVE) 02/01/18 13:36 Urine Blood Negative (NEGATIVE) 02/01/18 13:36 Urine Nitrate Negative (NEGATIVE) 02/01/18 13:36 Urine Bilirubin Negative (NEGATIVE) 02/01/18 13:36 Urine Urobilinogen Normal mg/dL (0.2-1.0) 02/01/18 13:36 Ur Leukocyte Esterase Neg Vicente/uL (Negative) 02/01/18 13:36 Urine WBC (Auto) 2 /hpf (0-5) 02/01/18 13:36 Urine RBC (Auto) < 1 /hpf (0-3) 02/01/18 13:36 Ur Squamous Epith Cells < 1 /hpf (0-5) 02/01/18 13:36 Urine Bacteria Rare (<OCC) 02/01/18 13:36 Vancomycin Trough 19.0 ug/mL (5.0-10.0) H 02/03/18 06:18 Tacrolimus (LC/MS/MS) 3.5 mcg/L (5.0-20.0) L 02/07/18 08:07 Cycl Citrul Peptide IgG <16 Units 02/03/18 06:18 AMANUEL 6 Profile Negative (NEGATIVE) 02/03/18 06:18 Anti-Staphylolysin O Negative (NEGATIVE) 02/03/18 06:18 - Hospital Course Hospital Course: 72 years old [place] male was brought to the ED at [facility] on 02/01/2018 because of fever, weakness, poor appetite and vomiting for one day. He was also complaining of a painful swelling of the left knee. He was recently hospitalized for a bacteremia with Streptococcus Gallolyticus Pasteurian and is receiving Rocephin via a PICC line. A FERNANDO on last admission failed to demonstrate any valvular vegetation. The patient denies any chest pain, shortness of breath, palpitation, abdominal pain. He is known to have a Hypertension, a non-insulin dependent diabetes mellitus, a hypothyroidism, a bronchial asthma, a hypertrophic cardiomyopathy, a history of atrial fibrillation, a ventricular tachycardia, a s/p ICD insertion, a s/p renal transplant, a s/p hemicolectomy for cancer, an anemia of chronic disease, a s/p GI bleeding, a s/p infective endocarditis. On admission, his WBC: 12,700 with 93.1% PMN and 2 % bands BUN 36 creatinine: 1.7 Mg++: 1.0 TNI: 0.1330 U/A: 1+ protein. CXR: cardiomegaly, no acute infiltrate. Ct scan of the left knee: large left knee effusion . ECG: sinus tachycardia with frequent PAC's, LVH and left axis deviation. The patient was evaluated by Dr Nash (ID) and Dr Morrissey ( renal). He was put on IV Vancomycin and Zosyn, IVF and PO magnesium. He became afebrile the next day, but his creatinine went up to 2.0 and Vancomycin and Zosyn were replaced by Cubicin IV. Urine and blood cultures were negative. Patient was also evaluated by Dr Avery ( [employer] [employer]), who performed a left knee aspiration. Gram stain of the joint aspirate was unyielding, and culture was also negative. The patient improved gradually and was discharged home on 02/09/2018 in a stable condition. He will receive Cubicin IV qod for 6 more doses, and will resume all his home medications, except Rocephin. He will see his PMD, Dr Kohler in one week and Dr Nash in one week, along with home PT. - Date & Time of H&P Date of H&P: 02/02/18 Discharge Exam - Head Exam Head Exam: NORMOCEPHALIC - Eye Exam Eye Exam: Normal appearance Pupil Exam: NORMAL ACCOMODATION - ENT Exam ENT Exam: TM's Normal Bilaterally - Neck Exam Neck exam: Normal Inspection - Respiratory Exam Respiratory Exam: Clear to PA & Lateral, NORMAL BREATHING PATTERN - Cardiovascular Exam Cardiovascular Exam: Irregular Rhythm, Systolic Murmur - GI/Abdominal Exam GI & Abdominal Exam: Normal Bowel Sounds, Soft, Unremarkable - Rectal Exam Rectal Exam: Deferred - Exam Exam: NORMAL INSPECTION - Extremities Exam Additional comments: Left knee slightly swollen and tender. - Back Exam Back exam: NORMAL INSPECTION - Neurological Exam Neurological exam: Alert, Oriented x3 - Psychiatric Exam Psychiatric exam: Anxious - Skin Skin Exam: Dry, Intact, Normal Color, Warm Discharge Plan - Discharge Medications Prescriptions: DAPTOmycin [Cubicin] 320 mg IV Q48H #6 vial - Follow Up Plan Condition: GUARDED Disposition: DISCHARGED TO HOME CARE Instructions: Heart Healthy Diet, Atrial Fibrillation (DC), Heart Failure, Adult (DC), Fever, Adult (DC) Additional Instructions: Please continue Cubicin IVBP q 48 hrs x 6 doses starting tomorrow Please resume all you home medications Please follow up with Dr. Bradshaw office in 1 week- Please follow up with Dr. morrissey office in 1n 1-2 weeks Infusion company will come to your home tomorrow for IV infusions Please infusion company to do cbc, cmp and liver profile starting Tuesday and q weekly and let them fax result to Dr. Bradshaw office and Dr. Nash office Please keep mid line in place Referrals: Srikanth Morrissey MD [Staff Provider] - Reji Bradshaw MD [Staff Provider] - Clinical Quality Measures - CQM - Heart Failure Ejection Fraction: 40 % or Greater Left Ventricular Function to be assessed after discharge: No HUSSEIN Inhibitor Prescribed: No Contraindication/Reason for not providing: Renal failure Beta-Miryam Prescribed: None Contraindication/Reason for not providing: Bronchial asthma Angiotensin II Receptor Miryam Prescribed: No Contraindication/Reason for not providing: Renal failure AnticoagulationTherapy for Atrial Fibrillation/Atrialflutter: Yes Aldosterone Antagonist Prescribed: No Contraindication/Reason for not providing: Hyperkalemia from renal failure Hydralazine Nitrate Prescribed: No Contraindication/Reason for not providing: Low BP Implantable Cardioverter Defibrillator Therapy: Yes Cardiac Resynchronization Therapy Prescribed: No Contraindication/Reason for not providing: Not indicated. Will be discharged to: Home Follow Up Date (must be within 7 days from discharge): 02/15/18 Follow Up Time: 09:00 - Date & Time of Discharge Summary Date of Discharge Summary: 02/09/18 Time of Discharge Summary: 09:17
== END 2018-02-08 16:08 | disposition home health service (06) | DRG 864 ==
LOC: C.ER 11:10 → C.9E 12:06 → C.6T 15:12
PROVIDERS: ADMIT Internal Medicine Cardiovascular Disease; ATTEND Internal Medicine Cardiovascular Disease
PROC: 0S9D3ZX Drainage of Left Knee Joint, Percutaneous Approach, Diagnostic (ICD-10-PCS; principal; 2018-02-04)
DX: R50.9 Fever, unspecified (principal); N18.6 End stage renal disease; I42.2 Other hypertrophic cardiomyopathy; Z94.0 Kidney transplant status; I13.2 Hypertensive heart and chronic kidney disease with heart failure and with stage 5 chronic kidney disease, or end stage renal disease; E03.9 Hypothyroidism, unspecified; G47.30 Sleep apnea, unspecified; E78.00 Pure hypercholesterolemia, unspecified; I25.10 Atherosclerotic heart disease of native coronary artery without angina pectoris; I48.2 Chronic atrial fibrillation; I50.9 Heart failure, unspecified; E11.22 Type 2 diabetes mellitus with diabetic chronic kidney disease; J43.9 Emphysema, unspecified; J84.10 Pulmonary fibrosis, unspecified; M10.9 Gout, unspecified; Z85.038 Personal history of other malignant neoplasm of large intestine; Z86.73 Personal history of transient ischemic attack (TIA), and cerebral infarction without residual deficits; Z87.01 Personal history of pneumonia (recurrent); Z87.11 Personal history of peptic ulcer disease; Z79.84 Long term (current) use of oral hypoglycemic drugs; Z79.01 Long term (current) use of anticoagulants; Z87.891 Personal history of nicotine dependence; Z95.810 Presence of automatic (implantable) cardiac defibrillator; Z99.81 Dependence on supplemental oxygen; Z90.49 Acquired absence of other specified parts of digestive tract; Z79.4 Long term (current) use of insulin

== ENCOUNTER 2018-02-22 10:36 | Inpatient (IN) | payer MEDICARE, BC ==
[2018-02-22 10:36] VITALS: BMI 26.3
[2018-02-22] MEDS ORDERED: Lidocaine 1% Inj (20ml) INFIL STA (11:57)
[2018-02-22] MEDS ORDERED: Oxycodone/Acetaminophen 5/325 mg Tab PO STA (12:01)
[2018-02-22] MEDS ORDERED: Lidocaine Hydrochloride 20 ML INJ ONE (12:13)
[2018-02-22] MEDS ORDERED: Oxycodone/Acetaminophen 5/325 mg Tab ONE (12:14)
--- NOTE | 2018-02-22 12:21 | RAD ---
Date of service: 02/22/2018 PROCEDURE: CHEST RADIOGRAPH, 1 VIEW HISTORY: SOB COMPARISON: 02/01/2018 . FINDINGS: LUNGS: Stable ill-defined right apical opacity consistent with scar/ bronchiectasis pleural thickening seen on CT examination of 12/30/2017 and unchanged in appearance from prior plain radiograph of 02/01/2018. Decreasing opacity at right base compared to prior chest radiograph. Likely resolving infiltrate. PLEURA: No pneumothorax or pleural fluid seen. CARDIOVASCULAR: Normal heart size. AICD noted. Right PICC catheter removed. OSSEOUS STRUCTURES: No significant abnormalities. VISUALIZED UPPER ABDOMEN: Normal. OTHER FINDINGS: None. IMPRESSION: Resolving right basilar opacity. Persistent right apical opacity consistent with chronic pleural and parenchymal changes. AICD noted. Right PICC catheter has been removed.
[2018-02-22 12:37] LABS: BASO # 0.1 K/uL (0.0-0.2); BASO % 0.5 % (0.0-2.0); EOS # 0.2 K/uL (0.0-0.7); EOS % 1.2 % (0.0-4.0); HEMOGLOBIN 9.6 g/dL (12.0-18.0); LYMPH # 0.9 K/uL (1.0-4.3); LYMPH % 5.7 % (20.0-40.0); MEAN CORPUSCULAR HEMOGLOBIN 25.4 pg (27.0-31.0); MONO # 0.9 K/uL (0.0-0.8); MONO % 5.5 % (0.0-10.0); NEUT # 13.9 K/uL (1.8-7.0); NEUT % 87.1 % (50.0-75.0); PLATELET COUNT 273 K/uL (130-400); RBC 3.79 Mil/uL (4.40-5.90)
[2018-02-22 12:39] LABS: MEAN CELL VOLUME 79.2 fL (80.0-94.0); WHITE BLOOD COUNT 15.9 K/uL (4.8-10.8)
[2018-02-22 12:46] LABS: INR 1.7
[2018-02-22 12:51] LABS: URINE BILIRUBIN NEGATIVE (NEGATIVE); URINE BLOOD NEGATIVE (NEGATIVE); URINE CLARITY Clear (Clear); URINE COLOR Yellow (YELLOW); URINE GLUCOSE (UA) NORMAL (Normal); URINE LEUKOCYTE ESTERASE NEG Leu/uL (Negative); URINE PROTEIN 1+ mg/dL (NEGATIVE); URINE UROBILINOGEN NORMAL mg/dL (0.2-1.0)
[2018-02-22 12:51] LABS: ALBUMIN 3.3 g/dL (3.5-5.0); ALT/SGPT 39 U/L (21-72); AST/SGOT 36 U/L (17-59); BLOOD UREA NITROGEN 37 mg/dL (9-20); CALCIUM 8.9 mg/dl (8.6-10.4); GFR NON-AFRICAN AMERICAN 54
[2018-02-22 13:02] LABS: ANISOCYTOSIS SLIGHT; BANDS 3 % (0-2); EOSINOPHIL 3 % (0-4); HYPOCHROMIC SLIGHT; LYMPHOCYTE 9 % (20-40); MICROCYTOSIS SLIGHT; MONOCYTE 5 % (0-10); NEUTROPHIL 80 % (50-75); PLATELET ESTIMATE NORMAL (NORMAL); POIKILOCYTOSIS SLIGHT; TOTAL CELLS COUNTED 100
[2018-02-22 13:03] LABS: BURR CELLS SLIGHT; OVALOCYTES SLIGHT; TARGET CELLS SLIGHT; TEARDROP CELLS SLIGHT
--- NOTE | 2018-02-22 13:15 | C.PDOC ---
History Of Present Illness 72yo male, brought to ER by and daughter for evaluation of left knee joint effusion. Patient has been getting a tap weekly for an unknown amount of time and per family, patient missed his orthopedics appointment, prompting his visit today. Otherwise, no new injuries or trauma to the site. Of note, patient has a history of renal transplant and is on chronic immunosuppresants and steroids. Time Seen by Provider: 02/22/18 11:46 Chief Complaint (Nursing): Lower Extremity Problem/Injury History Per: Patient, Family History/Exam Limitations: no limitations Onset/Duration Of Symptoms: Persistent Current Symptoms Are (Timing): Still Present Past Medical History Reviewed: Historical Data, Nursing Documentation, Vital Signs Vital Signs: Last Vital Signs Temp 97.9 F 02/22/18 16:45 Pulse 109 H 02/22/18 16:45 Resp 15 02/22/18 16:45 BP 89/49 L 02/22/18 16:45 Pulse Ox 98 02/22/18 16:51 - Medical History PMH: Anemia, Arthritis (Gout), Asthma, Atrial Fibrillation, Bronchitis, CAD ( CARDIOMYOPATHY), Cardia Arrhythmia, CHF, COPD (Emphysema,), Diabetes (NIDDM), Emphysema, Gastritis, Gastrointestinal Ulcer, HTN, Hypercholesterolemia, Hypothyroidism, Pneumonia, End Stage Renal Disease, Chronic Kidney Disease (s/p renal transplant), Sleep Apnea Surgical History: Comment Only: Pacemaker (Patient has a ISSH with ventricular tachycardia and an ICD.) - Modular Patterns Procedures C.A.T. SCAN OF THORAX (02/06/13) CLOSED [PERCUTANEOUS] [NEEDLE] BIOPSY OF LUNG (02/06/13) COLONOSCOPY (08/17/06) DRAINAGE OF LEFT KNEE JOINT, PERCUTANEOUS APPROACH, DIAGN (02/01/18) ENDOSC POLYPECTOMY OF LG INTEST (01/01/15) ESOPHAGOGASTRODUODENOSCOPY [EGD] W/CLOSED BIOPSY (01/01/15) INSERTION OF INFUSION DEV INTO SUP VENA CAVA, PERC APPROACH (12/27/17) NAIL REMOVAL (12/31/13) PACKED CELL TRANSFUSION (01/01/15) ULTRASONOGRAPHY OF HEART WITH AORTA, TRANSESOPHAGEAL (12/27/17) Family History: States: No Known Family Hx - Social History Hx Tobacco Use: No Hx Alcohol Use: No Hx Substance Use: No - Immunization History Hx Tetanus Toxoid Vaccination: Yes Hx Influenza Vaccination: Yes Hx Pneumococcal Vaccination: Yes Review Of Systems Except As Marked, All Systems Reviewed And Found Negative. Constitutional: Negative for: Fever, Chills Musculoskeletal: Positive for: Other (left knee joint effusion) Physical Exam - Physical Exam Appears: Non-toxic, Chronically Ill Skin: Other (icteric) Head: Normacephalic Eye(s): bilateral: Normal Inspection Neck: Supple Chest: Symmetrical Cardiovascular: Rhythm Irregular (+tachycardia) Respiratory: Rales (mild) Gastrointestinal/Abdominal: Soft, No Tenderness Back: Normal Inspection Extremity: No Normal ROM (+ painful limited ROM at left knee) Extremity: Left: Joint Effusion (left knee joint effusion. warm to touch. no erythema) Neurological/Psych: Oriented x3 ED Course And Treatment - Laboratory Results Result Diagrams: 02/22/18 12:32 02/22/18 12:32 Lab Interpretation: Abnormal (L knee arthrocentesis with 79,000 WBC's and monosodium urate crystals) ECG: Interpreted By Ar ECG Rhythm: Atrial Fibrillation ECG Interpretation: Abnormal Rate From EC O2 Sat by Pulse Oximetry: 98 (RA) Pulse Ox Interpretation: Normal - Radiology CXR: Interpreted by Ar CXR Interpretation: Yes: Heart Size, Other (no sig pulm edema) Reevaluation Time: 16:35 (pt noted hypotensive approx 1500, empiric IV ABX for sepsis and IV fluid bolus started. After 1 hour BP not significantly improved. ) - Physician Consult Information Outcome Of Conversation: 1630: d/w Dr. Booth- ICU- ok to ICU Critical Care Time - Critical Care Note Total Time (in mins): 90 Documented critical care: time excludes all time spent performing seperately billable procedures. Procedure: Blank - Time Time Performed: 14:15 - Time Out Time Out: Side verified, Site verified, Patient ID confirmed - Procedure Procedure:: Arthrocentesis of left knee joint effusion - Consent obtained: Consent obtained: Written - Anesthetic Technique Anesthetic Technique: Local - Topical: Local/Regional Anesthetic:: Lidocaine 1% - Location Location: Left, Knee - Needle Size Needle Size:: 19 g - Result Result: Successful (purulent synovial fluid 5cc) - Post-Procedure Post-procedure:: Dressing applied, Neurovascular status nml, Vital signs stable - Specimens/Tests Ordered Specimens/Tests Ordered: Cell count, crystal, wound culture, blood culture. - Patient Tolerated Procedure Patient Tolerated Procedure:: Well Medical Decision Making Medical Decision Making: Plan: -- Labs -- CXR -- Percocet 1 tab PO 1250 Plan for arthrocentesis. Lidocaine 1% ordered. Ordered for cell count, wound cultures and fluid crystals placed. See procedure note. 1400 Dr. Tucker called and per office, he is away for vacation with no covering doctor. Discussed with Dr. Bradshaw, who recommends Dr. Tovar for ortho consult. boarderline elevated WBC's in L knee arthrocentesis WBC 79K ddx recurrent gouty athropathy vs septic knee pt became septic in ED, argues more for septic arthritis WBC response to knee infection and sepsis may be significantly blunted due to immunosuppression regimen related to renal transplant. Multiple recent bacteremia and central lines R lower arm MID line placed for poor access PICC line when able as inpt Code Status: d/w family @ bedside DNR per pt's wishes. [address] Tovar, pending call back [address] Booth and patient to be admitted to the ICU. 1637 Dr. Bradshaw informed of admission to ICU [address] Tovar, and is requesting a left knee XR. Disposition Doctor Will See Patient In The: Hospital Counseled Patient/Family Regarding: Studies Performed, Diagnosis - Disposition Disposition: HOSPITALIZED Disposition Time: 16:41 Condition: FAIR - Clinical Impression Clinical Impression: Severe sepsis, Septic arthritis - Scribe Statement The provider has reviewed the documentation as recorded by the Pedro Salas Provider Attestation: All medical record entries made by the Pedro were at my direction and personally dictated by me. I have reviewed the chart and agree that the record accurately reflects my personal performance of the history, physical exam, medical decision making, and the department course for this patient. I have also personally directed, reviewed, and agree with the discharge instructions and disposition.
[2018-02-22 14:39] LABS: FLUID TYPE SYNOVIAL FLUID
[2018-02-22] MEDS ORDERED: Vancomycin 1 GM 1 GM/250 ML BAG IV SCH (15:00)
[2018-02-22 15:02] LABS: FLUID CRYSTALS POSITIVE (NEGATIVE)
[2018-02-22] MEDS ORDERED: Piperacill/Tazo 2.25gm in Dex 2.25 GM/50 ML BAG IVPB STA (15:02)
[2018-02-22] MEDS ORDERED: Sodium Chloride 0.9% 500 ML IV ONE ×2 (15:03→15:23)
[2018-02-22] MEDS ORDERED: Sodium Chloride 0.9% 1,000 ML IV ONE ×2 (15:05→16:33)
[2018-02-22] MEDS ORDERED: Vancomycin 1 GM 1 GM/250 ML BAG IV STA (15:27)
[2018-02-22] MEDS ORDERED: Vancomycin 1 gm/NS 200 ml 1 GM/200 ML BAG IVPB STA (15:31)
[2018-02-22 15:55] LABS: SF GROSS APPEARANCE TURBID (CLEAR); SYNOVIAL FLUID MONO/MACROPHAGE 1 % (0-0)
--- NOTE | 2018-02-22 17:32 | RAD ---
Date of service: 02/22/2018 PROCEDURE: Left Knee Radiographs. HISTORY: 10/27/2012 COMPARISON: None. FINDINGS: BONES: There is diffuse bone demineralization. There is no acute displaced fracture or bone destruction. Bone alignment is normal. JOINTS: Mild tricompartmental degenerative osteoarthrosis, worse in the lateral compartment. JOINT EFFUSION: There is a large suprapatellar joint effusion. OTHER FINDINGS: There are extensive advanced atherosclerotic vascular calcifications. IMPRESSION: No acute fracture or dislocation. Large suprapatellar joint effusion.
--- NOTE | 2018-02-22 18:18 | CP.PCM.CON ---
<Sarthak Booth - Last Filed: 02/22/18 18:44> Meds Allergies/Adverse Reactions: Allergies Allergy/AdvReac Type Severity Reaction Status Date / Time metoprolol Allergy Intermediate ITCHING Verified 02/01/18 11:29 Results - Vital Signs Recent Vital Signs: Last Vital Signs Temp 97.9 F 02/22/18 16:45 Pulse 109 H 02/22/18 16:45 Resp 15 02/22/18 16:45 BP 89/49 L 02/22/18 16:45 Pulse Ox 98 02/22/18 16:52 - Labs Result Diagrams: 02/22/18 12:32 02/22/18 12:32 Labs: Laboratory Results - last 24 hr 02/22/18 02/22/18 02/22/18 12:32 12:32 12:32 WBC 15.9 H D RBC 3.79 L Hgb 9.6 L Hct 30.0 L MCV 79.2 L D MCH 25.4 L MCHC 32.0 L RDW 20.0 H Plt Count 273 MPV 8.0 Neut % (Auto) 87.1 H Lymph % (Auto) 5.7 L Leake % (Auto) 5.5 Eos % (Auto) 1.2 Baso % (Auto) 0.5 Neut # (Auto) 13.9 H Lymph # (Auto) 0.9 L [place] # (Auto) 0.9 H Eos # (Auto) 0.2 Baso # (Auto) 0.1 Neutrophils % (Manual) 80 H Band Neutrophils % 3 H Lymphocytes % (Manual) 9 L Monocytes % (Manual) 5 Eosinophils % (Manual) 3 Platelet Estimate Normal Hypochromasia (manual) Slight Poikilocytosis (manual Slight Anisocytosis (manual) Slight Microcytosis (manual) Slight Macrocytosis (manual) Slight Target Cells Slight Tear Drop Cells Slight Ovalocytes Slight David Cells Slight PT 19.0 H INR 1.7 APTT 34 Sodium 131 L Potassium 4.4 Chloride 90 L Carbon Dioxide 30 Anion Gap 14 BUN 37 H Creatinine 1.3 Est GFR ( Amer) > 60 Est GFR (Non-Af Amer) 54 Random Glucose 119 H Calcium 8.9 Total Bilirubin 0.8 AST 36 ALT 39 Alkaline Phosphatase 78 Troponin I 0.1590 H* Total Protein 6.7 Albumin 3.3 L Globulin 3.4 Albumin/Globulin Ratio 1.0 Urine Color Urine Clarity Urine pH Ur Specific [place] Urine Protein Urine Glucose (UA) Urine Ketones Urine Blood Urine Nitrate Urine Bilirubin Urine Urobilinogen Ur Leukocyte Esterase Urine WBC (Auto) Urine RBC (Auto) Fluid Type Fluid Crystals Synovial WBC Synovial RBC Synovial Neutrophils Synovial Lymphocytes Synov Monos/Macrophage Synovial Crystal Type Synovial Fluid Comment 02/22/18 02/22/18 02/22/18 12:45 14:36 14:50 WBC RBC Hgb Hct MCV MCH MCHC RDW Plt Count MPV Neut % (Auto) Lymph % (Auto) [place] % (Auto) Eos % (Auto) Baso % (Auto) Neut # (Auto) Lymph # (Auto) [place] # (Auto) Eos # (Auto) Baso # (Auto) Neutrophils % (Manual) Band Neutrophils % Lymphocytes % (Manual) Monocytes % (Manual) Eosinophils % (Manual) Platelet Estimate Hypochromasia (manual) Poikilocytosis (manual Anisocytosis (manual) Microcytosis (manual) Macrocytosis (manual) Target Cells Tear Drop Cells Ovalocytes David Cells PT INR APTT Sodium Potassium Chloride Carbon Dioxide Anion Gap BUN Creatinine Est GFR ( Amer) Est GFR (Non-Af Amer) Random Glucose Calcium Total Bilirubin AST ALT Alkaline Phosphatase Troponin I Total Protein Albumin Globulin Albumin/Globulin Ratio Urine Color Yellow Urine Clarity Clear Urine pH 7.0 Ur Specific [place] 1.013 Urine Protein 1+ H Urine Glucose (UA) Normal Urine Ketones Negative Urine Blood Negative Urine Nitrate Negative Urine Bilirubin Negative Urine Urobilinogen Normal Ur Leukocyte Esterase Neg Urine WBC (Auto) 1 Urine RBC (Auto) < 1 Fluid Type Synovial fluid Fluid Crystals Positive H Synovial WBC 53123.0 H Synovial RBC 72972.0 H Synovial Neutrophils 98.0 H Synovial Lymphocytes 1.0 H Synov Monos/Macrophage 1 H Synovial Crystal Type Monosodium urate Synovial Fluid Comment Attending/Attestation - Attestation I have personally seen and examined this patient.: Yes I have fully participated in the care of the patient.: Yes I have reviewed all pertinent clinical information: Yes Notes (Text): 02/22/18 18:44 atient seen and examined 72-year-old male with history of renal transplant presented with left knee swelling status post arthrocentesis postprocedure patient became hypotensive No response to fluid resuscitation Admitted to ICU IV antibiotics Follow-up culture and sensitivity Patient with a history of cardiomyopathy status post AICD <Priyanka Cox P - Last Filed: 02/22/18 23:00> History of Present Illness - History of Present Illness History of Present Illness: Critical Care Consult Note for Dr. Booth Reason for consult: Sepsis HPI: Patient is a 72 year old male with a PMHx of donor kidney transplant, hypertrophic cardiomyopathy s/p ICD, hx of endocarditis requiring ICD replacement (2016), chronic atrial fibrillation, gout, colon CA with colectomy, NIDDM post-transplant, HTN, COPD, pulmonary fibrosis, hypothyroid s/ p thyroidectomy who presented to the ED for severely increased left knee pain and swelling. The knee pain and swelling has been intermittent for several months. Per chart review, patient gets weekly knee taps for effusion of the left knee however missed recent ortho appointment. Of note, patient is chronically on immunosuppressants (tacrolimus) and steroids (prednisone) due to hx of renal transplant. The knee was tapped at bedside in the ED, and BP dropped from 130s systolic to 70s systolic. He has a history of HTN and his normal blood pressure, per family , is 120s-130s systolic. He was given 1 liter of fluid in the ED with improvement of blood pressure to 90s/40s. WBC elevated at 15.9. Per family, patient has been in and out of the hospital multiple times since July 2017. He has been admitted for sepsis in the past. Three most recent admissions have been at [facility]. Last discharge from [facility] was 02/09/18. Prior admissions were at [facility]. Family states that patient is generally lethargic and sleepy at baseline. ROS: positive: pain and swelling in left elbow negative: chest pain, palpitations, SOB, abdominal pain, nausea, vomiting PMD: Dr CHRISTIAN Kohler Cardio: Penny Bradshaw PMH: donor kidney transplant, hypertrophic cardiomyopathy s/p ICD, hx of endocarditis requiring ICD replacement (2016), chronic atrial fibrillation, gout, colon CA with colectomy, NIDDM post-transplant, HTN, COPD, pulmonary fibrosis, hypothyroid s/p thyroidectomy PSH: kidney transplant (June 2005 in [facility]), thyroidectomy 2009, colectomy due to colon CA (?2009) Medications: Tramadol 50mg po tid prn folic acid 1mg po daily tacrolimus 3mg po bid sodium bicarbonate 10 gra po tid prednisone 5mg po daily Pitavastatin calcium 1pkt po bid protonix 40mg po daily Singulair 10mg po daily Magnesium oxide 500mg po tid Synthroid 175 mcg po daily isosorbide dinitrate 20mg po tid hyralazine 25mg po tid glipizide 2.5mg po daily Febuxostat 80mg po daily Ergocalciferol 1.25mg po weekly dilitiazem 240mg po daily clonazepam 1 tab po daily Cholecalciferol 2000 unit po daily Calcium 600 + vit D 400 1 tab po daily Apixaban (eliquis) 5mg po bid Allergy: Metoprolol (itchiness) FH: mother-heart disease; father-asthma Social history: smoker x 37 years (quit 1995) Proxy: Patient's Marah Suero: cell-[phone]; home-[phone]. Code status: DNR/DNI. Patient's has signed documentation at home. Review of Systems - Constitutional Constitutional: absent: Chills, Fever, Headache - Cardiovascular Cardiovascular: absent: Chest Pain, Diaphoresis, Lightheadedness, Palpitations - Respiratory Respiratory: absent: Cough - Gastrointestinal Gastrointestinal: absent: Abdominal Pain - Musculoskeletal Musculoskeletal: Arthralgias, Joint Swelling Past Patient History - Infectious Disease Hx of Infectious Diseases: C.diff - Tetanus Immunizations Tetanus Immunization: Unknown - Past Medical History & Family History Past Medical History?: Yes - Past Social History Smoking Status: Former Smoker - CARDIAC Hx Atrial Fibrillation: Yes Hx Cardia Arrhythmia: Yes Hx Congestive Heart Failure: Yes Hx Hypercholesterolemia: Yes Hx Hypertension: Yes Hx Pacemaker: (Patient has a ISSH with ventricular tachycardia and an ICD.) - PULMONARY Hx Asthma: Yes Hx Bronchitis: Yes Hx Chronic Obstructive Pulmonary Disease (COPD): Yes (Emphysema,) Hx Emphysema: Yes Hx Pneumonia: Yes Hx Sleep Apnea: Yes - NEUROLOGICAL Hx Neurological Disorder: Yes - HEENT Hx HEENT Problems: Yes Hx Cataracts: Yes (bilat iol,had surgery) - RENAL Hx Chronic Kidney Disease: Yes (s/p renal transplant) - ENDOCRINE/METABOLIC Hx Hypothyroidism: Yes - HEMATOLOGICAL/ONCOLOGICAL Hx Anemia: Yes - INTEGUMENTARY Hx Dermatological Problems: Yes (sun sentivity) Hx Eczema: Yes - MUSCULOSKELETAL/RHEUMATOLOGICAL Hx Arthritis: Yes (Gout) - GASTROINTESTINAL Hx Gastritis: Yes - GENITOURINARY/GYNECOLOGICAL Hx Genitourinary Disorders: No - PSYCHIATRIC Hx Substance Use: No - SURGICAL HISTORY Hx Surgeries: Yes Hx Cataract Extraction: Yes Hx Kidney Transplant: Yes () Other/Comment: THYROID SURGERY-2004. Hx of perforated bowel corrected with surgery. AICD - ANESTHESIA Hx Anesthesia: Yes Hx Anesthesia Reactions: No Hx Malignant Hyperthermia: No Physical Exam - Head Exam Head Exam: ATRAUMATIC, NORMOCEPHALIC - Eye Exam Eye Exam: EOMI, PERRL (pupils ) - ENT Exam ENT Exam: Mucous Membranes Moist, Normal Exam Additional comments: white film noted to lateral aspects tongue - Neck Exam Neck exam: Positive for: Full Rom, Normal Inspection - Respiratory Exam Respiratory Exam: Clear to Auscultation Bilateral. absent: Rales, Rhonchi, Wheezes - Cardiovascular Exam Cardiovascular Exam: REGULAR RHYTHM, +S1, +S2 - GI/Abdominal Exam GI & Abdominal Exam: Normal Bowel Sounds, Soft. absent: Guarding, Rebound, Tenderness - Extremities Exam Additional comments: L elbow is warm, errythematous, swollen, tender to palpation; ROM intact. L knee is warm and swollen, ROM intact. - Neurological Exam Additional comments: Patient somnolent but arousable. CN 2-12 intact. Sensation intact. 5/5 muscle strength bilateral upper extremities. 3/5 muscle strength bilateral lower extremities - Psychiatric Exam Psychiatric exam: Normal Mood - Skin Skin Exam: Normal Color Results - Vital Signs Recent Vital Signs: Last Vital Signs Temp 97.9 F 02/22/18 16:45 Pulse 109 H 02/22/18 16:45 Resp 15 02/22/18 16:45 BP 89/49 L 02/22/18 16:45 Pulse Ox 98 02/22/18 16:52 - Labs Result Diagrams: 02/22/18 12:32 02/22/18 12:32 Labs: Laboratory Results - last 24 hr 02/22/18 02/22/18 02/22/18 12:32 12:32 12:32 WBC 15.9 H D RBC 3.79 L Hgb 9.6 L Hct 30.0 L MCV 79.2 L D MCH 25.4 L MCHC 32.0 L RDW 20.0 H Plt Count 273 MPV 8.0 Neut % (Auto) 87.1 H Lymph % (Auto) 5.7 L [place] % (Auto) 5.5 Eos % (Auto) 1.2 Baso % (Auto) 0.5 Neut # (Auto) 13.9 H Lymph # (Auto) 0.9 L [place] # (Auto) 0.9 H Eos # (Auto) 0.2 Baso # (Auto) 0.1 Neutrophils % (Manual) 80 H Band Neutrophils % 3 H Lymphocytes % (Manual) 9 L Monocytes % (Manual) 5 Eosinophils % (Manual) 3 Platelet Estimate Normal Hypochromasia (manual) Slight Poikilocytosis (manual Slight Anisocytosis (manual) Slight Microcytosis (manual) Slight Macrocytosis (manual) Slight Target Cells Slight Tear Drop Cells Slight Ovalocytes Slight David Cells Slight PT 19.0 H INR 1.7 APTT 34 Sodium 131 L Potassium 4.4 Chloride 90 L Carbon Dioxide 30 Anion Gap 14 BUN 37 H Creatinine 1.3 Est GFR ( Amer) > 60 Est GFR (Non-Af Amer) 54 Random Glucose 119 H Calcium 8.9 Total Bilirubin 0.8 AST 36 ALT 39 Alkaline Phosphatase 78 Troponin I 0.1590 H* Total Protein 6.7 Albumin 3.3 L Globulin 3.4 Albumin/Globulin Ratio 1.0 Urine Color Urine Clarity Urine pH Ur Specific [place] Urine Protein Urine Glucose (UA) Urine Ketones Urine Blood Urine Nitrate Urine Bilirubin Urine Urobilinogen Ur Leukocyte Esterase Urine WBC (Auto) Urine RBC (Auto) Fluid Type Fluid Crystals Synovial WBC Synovial RBC Synovial Neutrophils Synovial Lymphocytes Synov Monos/Macrophage Synovial Crystal Type Synovial Fluid Comment 02/22/18 02/22/18 02/22/18 12:45 14:36 14:50 WBC RBC Hgb Hct MCV MCH MCHC RDW Plt Count MPV Neut % (Auto) Lymph % (Auto) [place] % (Auto) Eos % (Auto) Baso % (Auto) Neut # (Auto) Lymph # (Auto) [place] # (Auto) Eos # (Auto) Baso # (Auto) Neutrophils % (Manual) Band Neutrophils % Lymphocytes % (Manual) Monocytes % (Manual) Eosinophils % (Manual) Platelet Estimate Hypochromasia (manual) Poikilocytosis (manual Anisocytosis (manual) Microcytosis (manual) Macrocytosis (manual) Target Cells Tear Drop Cells Ovalocytes [place] Cells PT INR APTT Sodium Potassium Chloride Carbon Dioxide Anion Gap BUN Creatinine Est GFR ( Amer) Est GFR (Non-Af Amer) Random Glucose Calcium Total Bilirubin AST ALT Alkaline Phosphatase Troponin I Total Protein Albumin Globulin Albumin/Globulin Ratio Urine Color Yellow Urine Clarity Clear Urine pH 7.0 Ur Specific [place] 1.013 Urine Protein 1+ H Urine Glucose (UA) Normal Urine Ketones Negative Urine Blood Negative Urine Nitrate Negative Urine Bilirubin Negative Urine Urobilinogen Normal Ur Leukocyte Esterase Neg Urine WBC (Auto) 1 Urine RBC (Auto) < 1 Fluid Type Synovial fluid Fluid Crystals Positive H Synovial WBC 38653.0 H Synovial RBC 35658.0 H Synovial Neutrophils 98.0 H Synovial Lymphocytes 1.0 H Synov Monos/Macrophage 1 H Synovial Crystal Type Monosodium urate Synovial Fluid Comment Assessment & Plan - Assessment and Plan (Free Text) Plan: Patient is a 72 year old male with a PMHx of donor kidney transplant, hypertrophic cardiomyopathy s/p ICD, hx of endocarditis requiring ICD replacement (2016), chronic atrial fibrillation, gout, colon CA with colectomy, NIDDM post-transplant, HTN, COPD, pulmonary fibrosis, hypothyroid s/ p thyroidectomy complaining of worsening knee pain and swelling, admitted for sepsis. Neuro: patient lethargic at baseline Tramadol PRN pain Cardio: Troponin: 0.159, follow up repeat EKG: sinus tachycardia with PVCs Hold antihypertensive meds due to hypotension IVF Pulm: Montelukast GI: NPO, as per ortho Renal: Hx of renal transplant Tacrolemus prednisone 5mg PO daily Endo: Aspart sliding scale Levothyroxine 175mcg daily ID: follow up synovial fluid studies f/u blood cx f/u urine cx ID, Dr. Nash consulted. Help appreciated. Zosyn 2.25 Heme: h/h: 9.6/30 monitor MSK: Ortho consulted. Help appreciated PPX: Protonix 40 daily, Eliquis (home med), SCDs ergocalciferol 1 cap per week folic acid Magnesium oxide phospherus sodium bicarb Dispo: Continue ICU management. FLO Booth.
--- NOTE | 2018-02-22 18:18 | CP.PCM.CON ---
History of Present Illness - History of Present Illness History of Present Illness: 72yo male, brought to ER by and daughter for evaluation of left knee joint effusion. Patient has been getting a tap weekly for an unknown amount of time and per family, patient missed his orthopedics appointment, prompting his visit today. Otherwise, no new injuries or trauma to the site. Of note, patient has a history of renal transplant and is on chronic immunosuppresants and steroids. recently finished 3 week course IV antibiotics The knee pain and swelling has been intermittent for several months. Per chart review, patient gets weekly knee taps for effusion of the left knee however missed recent ortho appointment. Of note, patient is chronically on immunosuppressants (tacrolimus) and steroids (prednisone) due to hx of renal transplant. - Medical History PMH: Anemia, Arthritis (Gout), Asthma, Atrial Fibrillation, Bronchitis, CAD ( CARDIOMYOPATHY), Cardia Arrhythmia, CHF, COPD (Emphysema,), Diabetes (NIDDM), Emphysema, Gastritis, Gastrointestinal Ulcer, HTN, Hypercholesterolemia, Hypothyroidism, Pneumonia, End Stage Renal Disease, Chronic Kidney Disease (s/p renal transplant), Sleep Apnea Surgical History: Comment Only: Pacemaker (Patient has a ISSH with ventricular tachycardia and an ICD.) - [employer] Procedures C.A.T. SCAN OF THORAX (02/06/13) CLOSED [PERCUTANEOUS] [NEEDLE] BIOPSY OF LUNG (02/06/13) COLONOSCOPY (08/17/06) DRAINAGE OF LEFT KNEE JOINT, PERCUTANEOUS APPROACH, DIAGN (02/01/18) ENDOSC POLYPECTOMY OF LG INTEST (01/01/15) ESOPHAGOGASTRODUODENOSCOPY [EGD] W/CLOSED BIOPSY (01/01/15) INSERTION OF INFUSION DEV INTO SUP VENA CAVA, PERC APPROACH (12/27/17) NAIL REMOVAL (12/31/13) PACKED CELL TRANSFUSION (01/01/15) ULTRASONOGRAPHY OF HEART WITH AORTA, TRANSESOPHAGEAL (12/27/17) Review of Systems - Review of Systems All systems: reviewed and no additional remarkable complaints except - Constitutional Constitutional: As Per HPI, Anorexia, Chills, Fever - EENT Eyes: absent: As Per HPI, Blind Spots, Blurred Vision, Change in Vision, Decreased Night Vision, Diplopia, Discharge, Dry Eye, Exophthalmos, Floaters, Irritation, Itchy Eyes, Loss of Peripheral Vision, Pain, Photophobia, Requires Corrective Lenses, Sees Flashes, Spots in Vision, Tunnel Vision, Other Visual Disturbances, Loss of Vision, Other Ears: absent: As Per HPI, Decreased Hearing, Ear Discharge, Ear Pain, Tinnitus, Abnormal Hearing, Disequilibrium, Dizziness, Other Nose/Mouth/Throat: absent: As Per HPI, Epistaxis, Nasal Congestion, Nasal Discharge, Nasal Obstruction, Nasal Trauma, Nose Pain, Post Nasal Drip, Sinus Pain, Sinus Pressure, Bleeding Gums, Change in Voice, Dental Pain, Dry Mouth, Dysphagia, Halitosis, Hoarsness, Lip Swelling, Mouth Lesions, Mouth Pain, Odynophagia, Sore Throat, Throat Swelling, Tongue Swelling, Facial Pain, Neck Pain, Neck Mass, Other - Cardiovascular Cardiovascular: As Per HPI - Respiratory Respiratory: As Per HPI, Cough, Dyspnea - Gastrointestinal Gastrointestinal: absent: As Per HPI, Abdominal Pain, Belching, Bloating, Change in Bowel Habits, Change in Stool Character, Coffee Ground Emesis, Constipation, Cramping, Diarrhea, Dyspepsia, Dysphagia, Early Satiety, Excessive Flatus, Fecal Incontinence, Heartburn, Hematemesis, Hematochezia, Loose Stools, Melena, Nausea, Odynophagia, Temesmus, Vomiting, Other - Genitourinary Genitourinary: absent: As Per HPI, Change in Urinary Stream, Difficulty Urinating, Dysuria, Flank Pain, Hematuria, Pyuria, Nocturia, Urinary Incontinence, Urinary Frequency, Urinary Hesitance, Urinary Urgency, Voiding Freq/Small Amts, Freq UTI, Hx Renal/Bladder Calculi, Hx /Renal Surgery, Bladder Distension, Other - Musculoskeletal Musculoskeletal: As Per HPI - Integumentary Integumentary: As Per HPI - Neurological Neurological: absent: As Per HPI, Abnormal Gait, Abnormal Hearing, Abnormal Movements, Abnormal Speech, Behavioral Changes, Burning Sensations, Confusion, Convulsions, Disequilibrium, Dizziness, Numbness, Focal Weakness, Frequent Falls , Headaches, Lack of Coordination, Loss of Vision, Memory Loss, Paresthesias, Radicular Pain, Restless Legs, Sensory Deficit, Syncope, Tingling, Tremor, Vertigo, Weakness, Other Visual Disturbances, Other - Psychiatric Psychiatric: absent: As Per HPI, Abnormal Sleep Pattern, Anhedonia, Anxiety, Auditory Hallucinations, Behavioral Changes, Change in Appetite, Change in Libido, Confusion, Depression, Difficulty Concentrating, Hallucinations, Homicidal Ideation, Hopelessness, Irritability, Memory Loss, Mood Swings, Panic Attacks, Paranoia, Suicidal Ideation, Visual Hallucinations, Tactile Hallucinations, Other - Endocrine Endocrine: absent: As Per HPI, Change in Body Appearance, Change in Libido, Cold Intolorance, Deepening of Voice, Excessive Sweating, Fatigue, Flushing, Heat Intolorance, Increase in Ring/Shoe/Hat Size, Palpitations, Polydipsia, Polyphagia, Polyuria, Other - Hematologic/Lymphatic Hematologic: absent: As Per HPI, Easy Bleeding, Easy Bruising, Lymphadenopathy, Other Past Patient History - Infectious Disease Hx of Infectious Diseases: C.diff - Tetanus Immunizations Tetanus Immunization: Unknown - Past Medical History & Family History Past Medical History?: Yes - Past Social History Smoking Status: Former Smoker - CARDIAC Hx Atrial Fibrillation: Yes Hx Cardia Arrhythmia: Yes Hx Congestive Heart Failure: Yes Hx Hypercholesterolemia: Yes Hx Hypertension: Yes Hx Pacemaker: (Patient has a ISSH with ventricular tachycardia and an ICD.) - PULMONARY Hx Asthma: Yes Hx Bronchitis: Yes Hx Chronic Obstructive Pulmonary Disease (COPD): Yes (Emphysema,) Hx Emphysema: Yes Hx Pneumonia: Yes Hx Sleep Apnea: Yes - NEUROLOGICAL Hx Neurological Disorder: Yes - HEENT Hx HEENT Problems: Yes Hx Cataracts: Yes (bilat iol,had surgery) - RENAL Hx Chronic Kidney Disease: Yes (s/p renal transplant) - ENDOCRINE/METABOLIC Hx Hypothyroidism: Yes - HEMATOLOGICAL/ONCOLOGICAL Hx Anemia: Yes - INTEGUMENTARY Hx Dermatological Problems: Yes (sun sentivity) Hx Eczema: Yes - MUSCULOSKELETAL/RHEUMATOLOGICAL Hx Arthritis: Yes (Gout) - GASTROINTESTINAL Hx Gastritis: Yes - GENITOURINARY/GYNECOLOGICAL Hx Genitourinary Disorders: No - PSYCHIATRIC Hx Substance Use: No - SURGICAL HISTORY Hx Surgeries: Yes Hx Cataract Extraction: Yes Hx Kidney Transplant: Yes () Other/Comment: THYROID SURGERY-2004. Hx of perforated bowel corrected with surgery. AICD - ANESTHESIA Hx Anesthesia: Yes Hx Anesthesia Reactions: No Hx Malignant Hyperthermia: No Meds Allergies/Adverse Reactions: Allergies Allergy/AdvReac Type Severity Reaction Status Date / Time metoprolol Allergy Intermediate ITCHING Verified 02/01/18 11:29 Physical Exam - Constitutional Appears: Non-toxic, Cachectic, Chronically Ill - Head Exam Head Exam: ATRAUMATIC, NORMOCEPHALIC - Eye Exam Eye Exam: EOMI, PERRL. absent: Scleral icterus - ENT Exam ENT Exam: Mucous Membranes Dry - Neck Exam Neck exam: Negative for: Lymphadenopathy, Thyromegaly - Respiratory Exam Respiratory Exam: Decreased Breath Sounds, Clear to Auscultation Bilateral - Cardiovascular Exam Cardiovascular Exam: REGULAR RHYTHM, +S1, +S2 - GI/Abdominal Exam GI & Abdominal Exam: Diminished Bowel Sounds, Soft. absent: Tenderness - Rectal Exam Rectal Exam: Deferred - Exam Exam: NORMAL INSPECTION - Extremities Exam Extremities exam: Negative for: pedal edema Additional comments: left knee with massive swelliong - Back Exam Back exam: absent: CVA tenderness (L), CVA tenderness (R) - Neurological Exam Neurological exam: Alert, Altered, CN II-XII Intact, Reflexes Normal - Psychiatric Exam Psychiatric exam: Depressed - Skin Skin Exam: Dry Results - Vital Signs Recent Vital Signs: Last Vital Signs Temp 97.9 F 02/22/18 16:45 Pulse 109 H 02/22/18 16:45 Resp 15 02/22/18 16:45 BP 89/49 L 02/22/18 16:45 Pulse Ox 98 02/22/18 16:52 - Labs Result Diagrams: 02/22/18 12:32 02/22/18 12:32 Labs: Laboratory Results - last 24 hr 02/22/18 02/22/18 02/22/18 12:32 12:32 12:32 WBC 15.9 H D RBC 3.79 L Hgb 9.6 L Hct 30.0 L MCV 79.2 L D MCH 25.4 L MCHC 32.0 L RDW 20.0 H Plt Count 273 MPV 8.0 Neut % (Auto) 87.1 H Lymph % (Auto) 5.7 L [place] % (Auto) 5.5 Eos % (Auto) 1.2 Baso % (Auto) 0.5 Neut # (Auto) 13.9 H Lymph # (Auto) 0.9 L [place] # (Auto) 0.9 H Eos # (Auto) 0.2 Baso # (Auto) 0.1 Neutrophils % (Manual) 80 H Band Neutrophils % 3 H Lymphocytes % (Manual) 9 L Monocytes % (Manual) 5 Eosinophils % (Manual) 3 Platelet Estimate Normal Hypochromasia (manual) Slight Poikilocytosis (manual Slight Anisocytosis (manual) Slight Microcytosis (manual) Slight Macrocytosis (manual) Slight Target Cells Slight Tear Drop Cells Slight Ovalocytes Slight Rosie Cells Slight PT 19.0 H INR 1.7 APTT 34 Sodium 131 L Potassium 4.4 Chloride 90 L Carbon Dioxide 30 Anion Gap 14 BUN 37 H Creatinine 1.3 Est GFR ( Amer) > 60 Est GFR (Non-Af Amer) 54 Random Glucose 119 H Calcium 8.9 Total Bilirubin 0.8 AST 36 ALT 39 Alkaline Phosphatase 78 Troponin I 0.1590 H* Total Protein 6.7 Albumin 3.3 L Globulin 3.4 Albumin/Globulin Ratio 1.0 Urine Color Urine Clarity Urine pH Ur Specific [place] Urine Protein Urine Glucose (UA) Urine Ketones Urine Blood Urine Nitrate Urine Bilirubin Urine Urobilinogen Ur Leukocyte Esterase Urine WBC (Auto) Urine RBC (Auto) Fluid Type Fluid Crystals Synovial WBC Synovial RBC Synovial Neutrophils Synovial Lymphocytes Synov Monos/Macrophage Synovial Crystal Type Synovial Fluid Comment 02/22/18 02/22/18 02/22/18 12:45 14:36 14:50 WBC RBC Hgb Hct MCV MCH MCHC RDW Plt Count MPV Neut % (Auto) Lymph % (Auto) [place] % (Auto) Eos % (Auto) Baso % (Auto) Neut # (Auto) Lymph # (Auto) [place] # (Auto) Eos # (Auto) Baso # (Auto) Neutrophils % (Manual) Band Neutrophils % Lymphocytes % (Manual) Monocytes % (Manual) Eosinophils % (Manual) Platelet Estimate Hypochromasia (manual) Poikilocytosis (manual Anisocytosis (manual) Microcytosis (manual) Macrocytosis (manual) Target Cells Tear Drop Cells Ovalocytes David Cells PT INR APTT Sodium Potassium Chloride Carbon Dioxide Anion Gap BUN Creatinine Est GFR ( Amer) Est GFR (Non-Af Amer) Random Glucose Calcium Total Bilirubin AST ALT Alkaline Phosphatase Troponin I Total Protein Albumin Globulin Albumin/Globulin Ratio Urine Color Yellow Urine Clarity Clear Urine pH 7.0 Ur Specific [place] 1.013 Urine Protein 1+ H Urine Glucose (UA) Normal Urine Ketones Negative Urine Blood Negative Urine Nitrate Negative Urine Bilirubin Negative Urine Urobilinogen Normal Ur Leukocyte Esterase Neg Urine WBC (Auto) 1 Urine RBC (Auto) < 1 Fluid Type Synovial fluid Fluid Crystals Positive H Synovial WBC 30937.0 H Synovial RBC 33653.0 H Synovial Neutrophils 98.0 H Synovial Lymphocytes 1.0 H Synov Monos/Macrophage 1 H Synovial Crystal Type Monosodium urate Synovial Fluid Comment Assessment & Plan (1) Septic arthritis Status: Acute (2) Bronchiectasis with acute exacerbation Status: Acute (3) COPD bronchitis Status: Acute (4) Cardiomyopathy Status: Acute (5) Chest pain Status: Acute (6) Chronic atrial fibrillation Status: Acute (7) Chronic kidney disease, stage III (moderate) Status: Acute (8) DM type 2 (diabetes mellitus, type 2) Status: Acute (9) Gout Status: Acute - Assessment and Plan (Free Text) Assessment: left knee tap sent consider ortho eval, bone scan and MRI knee consider FERNANDO cont IV antibiotics
[2018-02-22] MEDS ORDERED: Glucagon Recombinant 1 mg Inj IM PRN (20:17)
[2018-02-22] MEDS ORDERED: Dextrose 50% SYRINGE Inj (50 ml) IV PRN (20:28)
[2018-02-22] MEDS ORDERED: (Novolog) Insulin Aspart, Recombinant 100 u/ml 10 ml vial SC SCH (20:30)
[2018-02-22] MEDS: Sodium Chloride 0.9% 1,000 ML IV SCH (21:00)
--- NOTE | 2018-02-22 23:40 | CP.PCM.HP ---
History of Present Illness - History of Present Illness History of Present Illness: 72 years old [place] male is brought by the family to the ED at [facility] complaining of swelling and painful left knee, inability to walk, poor appetite, increasing weakness and lethargy for the past one week. The patient just finished a three weeks course of Cubicin IV for a bacteremia with a Streptococcus GalloLyticus P[place]. Before discharge, he underwent a left knee aspiration, a culture of the aspirate was unyielding. He denies any recent fever, chills. The patient is known to have a s/p kidney transplant on Prednisone and Tacrolimus, a NIDDM, a CKD, a COPD, a hypothyroidism, a gout, a HPTN, a hypertrophic cardiomyopathy with episodes of ventricular tachycardia requiring ICD, a chronic atrial fibrillation, a s/p hemicolectomy for colon cancer. 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 He underwent an arthrocentesis of the left knee in the ED, after which he became hypotensive and was given IVF NS ( 2 L) and IV Zosyn with some improvement of the BP. He was sent to ICU for monitoring his low BP. This time, the left knee aspirate looks like pus, and an orthopedic consultation was called with DR Tovar for a septic arthritis of the left knee. Present on Admission - Present on Admission Any Indicators Present on Admission: No Review of Systems - Constitutional Constitutional: Anorexia, Fatigue, Lethargy, Malaise, Weight Loss, Weakness - Musculoskeletal Additional comments: Swelling and painful left knee. Past Patient History - Infectious Disease Hx of Infectious Diseases: C.diff - Tetanus Immunizations Tetanus Immunization: Unknown - Past Medical History & Family History Past Medical History?: Yes - Past Social History Smoking Status: Former Smoker Alcohol: None Drugs: Denies Home Situation {Lives}: With Family Domestic Violence: Negative - CARDIAC Hx Atrial Fibrillation: Yes Hx Cardia Arrhythmia: Yes Hx Congestive Heart Failure: Yes Hx Hypercholesterolemia: Yes Hx Hypertension: Yes Hx Pacemaker: (Patient has a ISSH with ventricular tachycardia and an ICD.) - PULMONARY Hx Asthma: Yes Hx Bronchitis: Yes Hx Chronic Obstructive Pulmonary Disease (COPD): Yes (Emphysema,) Hx Emphysema: Yes Hx Pneumonia: Yes Hx Sleep Apnea: Yes - NEUROLOGICAL Hx Neurological Disorder: Yes - HEENT Hx HEENT Problems: Yes Hx Cataracts: Yes (bilat iol,had surgery) - RENAL Hx Chronic Kidney Disease: Yes (s/p renal transplant) - ENDOCRINE/METABOLIC Hx Hypothyroidism: Yes - HEMATOLOGICAL/ONCOLOGICAL Hx Anemia: Yes - INTEGUMENTARY Hx Dermatological Problems: Yes (sun sentivity) Hx Eczema: Yes - MUSCULOSKELETAL/RHEUMATOLOGICAL Hx Arthritis: Yes (Gout) Hx Gout: Yes Hx Osteoarthritis: Yes - GASTROINTESTINAL Hx Gastrointestinal Disorders: Yes (Colon cancer) Hx Bowel Surgery: Yes (HEMICOLECTOMY FOR COLON CANCER) Hx Gastritis: Yes Hx Hemorrhoids: Yes - GENITOURINARY/GYNECOLOGICAL Hx Genitourinary Disorders: No - PSYCHIATRIC Hx Substance Use: No - SURGICAL HISTORY Hx Surgeries: Yes (Hemicolectomy for colon cancer) Hx Angiogram: Yes (ICD insertion for ventricular tachycardia.) Hx Cataract Extraction: Yes Hx Cardiac Catheterization: Yes Hx Kidney Transplant: Yes () Other/Comment: THYROID SURGERY-2004. Hx of perforated bowel corrected with surgery. AICD - ANESTHESIA Hx Anesthesia: Yes Hx Anesthesia Reactions: No Hx Malignant Hyperthermia: No Meds Allergies/Adverse Reactions: Allergies Allergy/AdvReac Type Severity Reaction Status Date / Time metoprolol Allergy Intermediate ITCHING Verified 02/01/18 11:29 Physical Exam - Constitutional Appears: No Acute Distress, Cachectic, Chronically Ill - Head Exam Head Exam: NORMAL INSPECTION - Eye Exam Pupil Exam: NORMAL ACCOMODATION - ENT Exam ENT Exam: Normal Exam - Neck Exam Neck exam: Positive for: Normal Inspection - Respiratory Exam Respiratory Exam: Clear to Auscultation Bilateral, NORMAL BREATHING PATTERN - Cardiovascular Exam Cardiovascular Exam: Irregular Rhythm - GI/Abdominal Exam GI & Abdominal Exam: Normal Bowel Sounds, Soft - Rectal Exam Rectal Exam: Deferred - Extremities Exam Additional comments: Swollen and tender left knee. - Back Exam Back exam: NORMAL INSPECTION - Neurological Exam Additional comments: Lethargic. - Skin Skin Exam: Dry, Intact, Normal Color, Warm Results - Vital Signs Recent Vital Signs: Last Vital Signs Temp 97.6 F 02/22/18 20:00 Pulse 100 H 02/22/18 22:01 Resp 13 02/22/18 22:01 BP 104/65 02/22/18 23:00 Pulse Ox 100 02/22/18 22:01 - Labs Result Diagrams: 02/22/18 12:32 02/22/18 12:32 Labs: Laboratory Results - last 24 hr 02/22/18 02/22/18 02/22/18 12:32 12:32 12:32 WBC 15.9 H D RBC 3.79 L Hgb 9.6 L Hct 30.0 L MCV 79.2 L D MCH 25.4 L MCHC 32.0 L RDW 20.0 H Plt Count 273 MPV 8.0 Neut % (Auto) 87.1 H Lymph % (Auto) 5.7 L [place] % (Auto) 5.5 Eos % (Auto) 1.2 Baso % (Auto) 0.5 Neut # (Auto) 13.9 H Lymph # (Auto) 0.9 L [place] # (Auto) 0.9 H Eos # (Auto) 0.2 Baso # (Auto) 0.1 Neutrophils % (Manual) 80 H Band Neutrophils % 3 H Lymphocytes % (Manual) 9 L Monocytes % (Manual) 5 Eosinophils % (Manual) 3 Platelet Estimate Normal Hypochromasia (manual) Slight Poikilocytosis (manual Slight Anisocytosis (manual) Slight Microcytosis (manual) Slight Macrocytosis (manual) Slight Target Cells Slight Tear Drop Cells Slight Ovalocytes Slight David Cells Slight PT 19.0 H INR 1.7 APTT 34 Sodium 131 L Potassium 4.4 Chloride 90 L Carbon Dioxide 30 Anion Gap 14 BUN 37 H Creatinine 1.3 Est GFR ( Amer) > 60 Est GFR (Non-Af Amer) 54 POC Glucose (mg/dL) Random Glucose 119 H Calcium 8.9 Total Bilirubin 0.8 AST 36 ALT 39 Alkaline Phosphatase 78 Troponin I 0.1590 H* Total Protein 6.7 Albumin 3.3 L Globulin 3.4 Albumin/Globulin Ratio 1.0 Procalcitonin Urine Color Urine Clarity Urine pH Ur Specific [place] Urine Protein Urine Glucose (UA) Urine Ketones Urine Blood Urine Nitrate Urine Bilirubin Urine Urobilinogen Ur Leukocyte Esterase Urine WBC (Auto) Urine RBC (Auto) Fluid Type Fluid Crystals Synovial WBC Synovial RBC Synovial Neutrophils Synovial Lymphocytes Synov Monos/Macrophage Synovial Crystal Type Synovial Fluid Comment 02/22/18 02/22/18 02/22/18 12:45 14:36 14:50 WBC RBC Hgb Hct MCV MCH MCHC RDW Plt Count MPV Neut % (Auto) Lymph % (Auto) [place] % (Auto) Eos % (Auto) Baso % (Auto) Neut # (Auto) Lymph # (Auto) [place] # (Auto) Eos # (Auto) Baso # (Auto) Neutrophils % (Manual) Band Neutrophils % Lymphocytes % (Manual) Monocytes % (Manual) Eosinophils % (Manual) Platelet Estimate Hypochromasia (manual) Poikilocytosis (manual Anisocytosis (manual) Microcytosis (manual) Macrocytosis (manual) Target Cells Tear Drop Cells Ovalocytes David Cells PT INR APTT Sodium Potassium Chloride Carbon Dioxide Anion Gap BUN Creatinine Est GFR ( Amer) Est GFR (Non-Af Amer) POC Glucose (mg/dL) Random Glucose Calcium Total Bilirubin AST ALT Alkaline Phosphatase Troponin I Total Protein Albumin Globulin Albumin/Globulin Ratio Procalcitonin Urine Color Yellow Urine Clarity Clear Urine pH 7.0 Ur Specific [place] 1.013 Urine Protein 1+ H Urine Glucose (UA) Normal Urine Ketones Negative Urine Blood Negative Urine Nitrate Negative Urine Bilirubin Negative Urine Urobilinogen Normal Ur Leukocyte Esterase Neg Urine WBC (Auto) 1 Urine RBC (Auto) < 1 Fluid Type Synovial fluid Fluid Crystals Positive H Synovial WBC 96712.0 H Synovial RBC 04273.0 H Synovial Neutrophils 98.0 H Synovial Lymphocytes 1.0 H Synov Monos/Macrophage 1 H Synovial Crystal Type Monosodium urate Synovial Fluid Comment 02/22/18 02/22/18 21:09 23:28 WBC RBC Hgb Hct MCV MCH MCHC RDW Plt Count MPV Neut % (Auto) Lymph % (Auto) [place] % (Auto) Eos % (Auto) Baso % (Auto) Neut # (Auto) Lymph # (Auto) [place] # (Auto) Eos # (Auto) Baso # (Auto) Neutrophils % (Manual) Band Neutrophils % Lymphocytes % (Manual) Monocytes % (Manual) Eosinophils % (Manual) Platelet Estimate Hypochromasia (manual) Poikilocytosis (manual Anisocytosis (manual) Microcytosis (manual) Macrocytosis (manual) Target Cells Tear Drop Cells Ovalocytes David Cells PT INR APTT Sodium Potassium Chloride Carbon Dioxide Anion Gap BUN Creatinine Est GFR ( Amer) Est GFR (Non-Af Amer) POC Glucose (mg/dL) 145 H Random Glucose Calcium Total Bilirubin AST ALT Alkaline Phosphatase Troponin I Total Protein Albumin Globulin Albumin/Globulin Ratio Procalcitonin 4.91 H Urine Color Urine Clarity Urine pH Ur Specific [place] Urine Protein Urine Glucose (UA) Urine Ketones Urine Blood Urine Nitrate Urine Bilirubin Urine Urobilinogen Ur Leukocyte Esterase Urine WBC (Auto) Urine RBC (Auto) Fluid Type Fluid Crystals Synovial WBC Synovial RBC Synovial Neutrophils Synovial Lymphocytes Synov Monos/Macrophage Synovial Crystal Type Synovial Fluid Comment Assessment & Plan (1) Septic arthritis of knee, left Assessment and Plan: IV antibiotic as per Dr Nash, Needs Drainage by Ortho. Status: Acute (2) Severe sepsis Status: Acute (3) History of renal transplant Assessment and Plan: Continue Prednisone and Tacrolimus Status: Chronic Priority: Medium Decision To Admit - Pt Status Changed To: Hospital Disposition Of: Inpatient - Admit Certification Admit to Inpatient:: After my assessment, the patient will require hospitalization for at least two midnights. This is because of the severity of symptoms shown, intensity of services needed, and/or the medical risk in this patient being treated as an outpatient. - InPatient: Physician Admission Certification:: After my assessments, the patient requires hospitalization for at least two midnights. - . Bed Request Type: ICU Admitting Physician: Reji Bradshaw
[2018-02-22 23:59] LABS: CK-MB 0.95 ng/mL (0.0-3.38); TROPONIN I 0.086 ng/mL (0.00-0.120)
[2018-02-23] MEDS: Piperacill/Tazo 2.25gm in Dex 2.25 GM/50 ML BAG IVPB SCH ×3 (01:30→17:05)
[2018-02-23] MEDS: Levothyroxine 175 MCG TAB PO SCH (05:45)
[2018-02-23] MEDS: (Novolog) Insulin Aspart, Recombinant 100 u/ml 10 ml vial SC SCH ×5 (06:00→22:00)
--- NOTE | 2018-02-23 06:24 | CP.PCM.CON ---
History of Present Illness - History of Present Illness History of Present Illness: Orthopedic consult Dr. Tovar 72M complains of left knee pain and swelling worsening over the last week. He is unable to walk due to pain. He says that he has been getting serial aspirations from his agricultural engineering technician Dr. Herbert, but did not see his doctor this week. He says he gets relief from the aspirations but this pain is worse than usual. He says every week he aspirates the knee and gives him a steroid injection also. He has known history of gout in this knee. Denies pain or swelling in other joints. Denies trauma/falls. Denies fever/ chills. Denies CP/SOB/dizziness/palp. He had prior knee aspiration 02/04/[address] Avery with negative cultures. He has prior admission 12/2017 for bacteremia. Review of Systems - Review of Systems All systems: reviewed and no additional remarkable complaints except - Musculoskeletal Musculoskeletal: As Per HPI Past Patient History - Infectious Disease Hx of Infectious Diseases: C.diff - Tetanus Immunizations Tetanus Immunization: Unknown - Past Medical History & Family History Past Medical History?: Yes - Past Social History Smoking Status: Former Smoker Alcohol: None Drugs: Denies Home Situation {Lives}: With Family Domestic Violence: Negative - CARDIAC Hx Atrial Fibrillation: Yes Hx Cardia Arrhythmia: Yes Hx Congestive Heart Failure: Yes Hx Hypercholesterolemia: Yes Hx Hypertension: Yes Hx Pacemaker: ([facility] with ventricular tachycardia and an ICD.) - PULMONARY Hx Asthma: Yes Hx Bronchitis: Yes Hx Chronic Obstructive Pulmonary Disease (COPD): Yes (Emphysema,) Hx Emphysema: Yes Hx Pneumonia: Yes Hx Sleep Apnea: Yes - NEUROLOGICAL Hx Neurological Disorder: Yes - HEENT Hx HEENT Problems: Yes Hx Cataracts: Yes (bilat iol,had surgery) - RENAL Hx Chronic Kidney Disease: Yes (s/p renal transplant) - ENDOCRINE/METABOLIC Hx Hypothyroidism: Yes - HEMATOLOGICAL/ONCOLOGICAL Hx Anemia: Yes - INTEGUMENTARY Hx Dermatological Problems: Yes (sun sentivity) Hx Eczema: Yes - MUSCULOSKELETAL/RHEUMATOLOGICAL Hx Arthritis: Yes (Gout) Hx Gout: Yes Hx Osteoarthritis: Yes - GASTROINTESTINAL Hx Gastrointestinal Disorders: Yes (Colon cancer) Hx Bowel Surgery: Yes (HEMICOLECTOMY FOR COLON CANCER) Hx Gastritis: Yes Hx Hemorrhoids: Yes - GENITOURINARY/GYNECOLOGICAL Hx Genitourinary Disorders: No - PSYCHIATRIC Hx Substance Use: No - SURGICAL HISTORY Hx Surgeries: Yes (Hemicolectomy for colon cancer) Hx Angiogram: Yes (ICD insertion for ventricular tachycardia.) Hx Cataract Extraction: Yes Hx Cardiac Catheterization: Yes Hx Kidney Transplant: Yes () Other/Comment: THYROID SURGERY-2004. Hx of perforated bowel corrected with surgery. AICD - ANESTHESIA Hx Anesthesia: Yes Hx Anesthesia Reactions: No Hx Malignant Hyperthermia: No Meds Allergies/Adverse Reactions: Allergies Allergy/AdvReac Type Severity Reaction Status Date / Time metoprolol Allergy Intermediate ITCHING Verified 02/01/18 11:29 - Medications Medications: Current Medications Albuterol (Ventolin Hfa 90 Mcg/Actuation (8 G)) 1 puff IH RQD FAHEEM Apixaban (Eliquis) 5 mg PO BID FAHEEM Calcium/Vitamin D (Oyster Shell Calcium/Vitamin D 500 Mg-200 Iu) 1 tab PO DAILY FAHEEM Clonazepam (Klonopin) 1 mg PO DAILY FAHEEM Dextrose (Dextrose 50% Inj) 0 ml IV STAT PRN; Protocol PRN Reason: Hypoglycemia Protocol Dextrose (Glutose 15) 0 gm PO ONCE PRN; Protocol PRN Reason: Hypoglycemia Protocol Ergocalciferol (Drisdol 50,000 Intl Units Cap) 1 cap PO QWK FAHEEM Folic Acid (Folic Acid) 1 mg PO DAILY FAHEEM Glucagon (Glucagen Diagnostic Kit) 0 mg IM STAT PRN; Protocol PRN Reason: Hypoglycemia Protocol Home Med (Febuxostat [Uloric]) 80 mg PO DAILY FAHEEM Piperacillin Sod/Tazobactam Sod (Zosyn 2.25 Gm Iv Premix) 2.25 gm in 50 mls @ 100 mls/hr IVPB Q8H FAHEEM PRN Reason: Protocol Last Admin: 02/23/18 01:30 Dose: 100 mls/hr Sodium Chloride (Sodium Chloride 0.9%) 1,000 mls @ 80 mls/hr IV .[id number] FAHEEM Last Admin: 02/22/18 21:00 Dose: 80 mls/hr Dextrose (Dextrose 5% In Water 1000 Ml) 1,000 mls @ 0 mls/hr IV .Q0M PRN; Protocol; Per Protocol PRN Reason: Hypoglycemia Protocol Insulin Aspart (Novolog) 0 unit SC Q6H FAHEEM PRN Reason: Protocol Last Admin: 02/23/18 00:00 Dose: Not Given Levothyroxine Sodium (Synthroid) 175 mcg PO DAILY@0630 [facility] Last Admin: 02/23/18 05:45 Dose: 175 mcg Magnesium Oxide (Mag-Ox) 400 mg PO TID [facility] Montelukast Sodium (Singulair) 10 mg PO DAILY [facility] Pantoprazole Sodium (Protonix Ec Tab) 40 mg PO DAILY [facility] Potassium Phos/Sodium Phos (Neutra-Phos) 1 pkt PO BID [facility] Prednisone (Prednisone Tab) 5 mg PO DAILY [facility] Rosuvastatin Calcium (Crestor) 5 mg PO HS [facility] Last Admin: 02/22/18 22:10 Dose: 5 mg Sodium Bicarbonate (Sodium Bicarbonate Tab) 650 mg PO TID FAHEEM Tacrolimus (Prograf Cap) 3 mg PO Q12 [facility] Last Admin: 02/22/18 22:10 Dose: 3 mg Tramadol HCl (Ultram) 50 mg PO TID PRN PRN Reason: Pain, Mild (1-3) Physical Exam - Constitutional Appears: Well, No Acute Distress - Head Exam Head Exam: ATRAUMATIC - Respiratory Exam Respiratory Exam: NORMAL BREATHING PATTERN - Cardiovascular Exam Additional comments: +dp/pt pulses - Expanded Lower Extremities Exam Left Knee exam: effusion (large effusion, no erythema, +warmth, mild, generalized tenderness to knee, skin intact. Pain with any active ROM), tenderness Ankle exam: FULL ROM, NORMAL INSPECTION Foot/Toe exam: full ROM, normal inspection - Neurological Exam Neurological exam: Alert, Oriented x3 - Psychiatric Exam Psychiatric exam: Normal Affect, Normal Mood - Skin Skin Exam: Dry, Intact, Normal Color, Warm Results - Vital Signs Recent Vital Signs: Last Vital Signs Temp 97.8 F 02/23/18 04:00 Pulse 98 H 02/23/18 04:01 Resp 16 02/23/18 04:01 BP 126/66 02/23/18 04:01 Pulse Ox 100 02/23/18 04:01 - Labs Result Diagrams: 02/23/18 06:20 02/23/18 06:20 Labs: Laboratory Results - last 24 hr 02/22/18 02/22/18 02/22/18 12:32 12:32 12:32 WBC 15.9 H D RBC 3.79 L Hgb 9.6 L Hct 30.0 L MCV 79.2 L D MCH 25.4 L MCHC 32.0 L RDW 20.0 H Plt Count 273 MPV 8.0 Neut % (Auto) 87.1 H Lymph % (Auto) 5.7 L Merrick % (Auto) 5.5 Eos % (Auto) 1.2 Baso % (Auto) 0.5 Neut # (Auto) 13.9 H Lymph # (Auto) 0.9 L Merrick # (Auto) 0.9 H Eos # (Auto) 0.2 Baso # (Auto) 0.1 Neutrophils % (Manual) 80 H Band Neutrophils % 3 H Lymphocytes % (Manual) 9 L Monocytes % (Manual) 5 Eosinophils % (Manual) 3 Platelet Estimate Normal Hypochromasia (manual) Slight Poikilocytosis (manual Slight Anisocytosis (manual) Slight Microcytosis (manual) Slight Macrocytosis (manual) Slight Target Cells Slight Tear Drop Cells Slight Ovalocytes Slight David Cells Slight PT 19.0 H INR 1.7 APTT 34 Sodium 131 L Potassium 4.4 Chloride 90 L Carbon Dioxide 30 Anion Gap 14 BUN 37 H Creatinine 1.3 Est GFR ( Amer) > 60 Est GFR (Non-Af Amer) 54 POC Glucose (mg/dL) Random Glucose 119 H Calcium 8.9 Total Bilirubin 0.8 AST 36 ALT 39 Alkaline Phosphatase 78 Total Creatine Kinase CK-MB (Mass) Troponin I 0.1590 H* Total Protein 6.7 Albumin 3.3 L Globulin 3.4 Albumin/Globulin Ratio 1.0 Procalcitonin Urine Color Urine Clarity Urine pH Ur Specific Lynn Urine Protein Urine Glucose (UA) Urine Ketones Urine Blood Urine Nitrate Urine Bilirubin Urine Urobilinogen Ur Leukocyte Esterase Urine WBC (Auto) Urine RBC (Auto) Fluid Type Fluid Crystals Synovial WBC Synovial RBC Synovial Neutrophils Synovial Lymphocytes Synov Monos/Macrophage Synovial Crystal Type Synovial Fluid Comment 02/22/18 02/22/18 02/22/18 12:45 14:36 14:50 WBC RBC Hgb Hct MCV MCH MCHC RDW Plt Count MPV Neut % (Auto) Lymph % (Auto) Merrick % (Auto) Eos % (Auto) Baso % (Auto) Neut # (Auto) Lymph # (Auto) Merrick # (Auto) Eos # (Auto) Baso # (Auto) Neutrophils % (Manual) Band Neutrophils % Lymphocytes % (Manual) Monocytes % (Manual) Eosinophils % (Manual) Platelet Estimate Hypochromasia (manual) Poikilocytosis (manual Anisocytosis (manual) Microcytosis (manual) Macrocytosis (manual) Target Cells Tear Drop Cells Ovalocytes David Cells PT INR APTT Sodium Potassium Chloride Carbon Dioxide Anion Gap BUN Creatinine Est GFR ( Amer) Est GFR (Non-Af Amer) POC Glucose (mg/dL) Random Glucose Calcium Total Bilirubin AST ALT Alkaline Phosphatase Total Creatine Kinase CK-MB (Mass) Troponin I Total Protein Albumin Globulin Albumin/Globulin Ratio Procalcitonin Urine Color Yellow Urine Clarity Clear Urine pH 7.0 Ur Specific Lynn 1.013 Urine Protein 1+ H Urine Glucose (UA) Normal Urine Ketones Negative Urine Blood Negative Urine Nitrate Negative Urine Bilirubin Negative Urine Urobilinogen Normal Ur Leukocyte Esterase Neg Urine WBC (Auto) 1 Urine RBC (Auto) < 1 Fluid Type Synovial fluid Fluid Crystals Positive H Synovial WBC 49329.0 H Synovial RBC 35084.0 H Synovial Neutrophils 98.0 H Synovial Lymphocytes 1.0 H Synov Monos/Macrophage 1 H Synovial Crystal Type Monosodium urate Synovial Fluid Comment 02/22/18 02/22/18 02/22/18 21:09 23:28 23:32 WBC RBC Hgb Hct MCV MCH MCHC RDW Plt Count MPV Neut % (Auto) Lymph % (Auto) Merrick % (Auto) Eos % (Auto) Baso % (Auto) Neut # (Auto) Lymph # (Auto) Merrick # (Auto) Eos # (Auto) Baso # (Auto) Neutrophils % (Manual) Band Neutrophils % Lymphocytes % (Manual) Monocytes % (Manual) Eosinophils % (Manual) Platelet Estimate Hypochromasia (manual) Poikilocytosis (manual Anisocytosis (manual) Microcytosis (manual) Macrocytosis (manual) Target Cells Tear Drop Cells Ovalocytes [place] Cells PT INR APTT Sodium Potassium Chloride Carbon Dioxide Anion Gap BUN Creatinine Est GFR ( Amer) Est GFR (Non-Af Amer) POC Glucose (mg/dL) 145 H Random Glucose Calcium Total Bilirubin AST ALT Alkaline Phosphatase Total Creatine Kinase 82 CK-MB (Mass) 0.95 Troponin I 0.0860 Total Protein Albumin Globulin Albumin/Globulin Ratio Procalcitonin 4.91 H Urine Color Urine Clarity Urine pH Ur Specific Lynn Urine Protein Urine Glucose (UA) Urine Ketones Urine Blood Urine Nitrate Urine Bilirubin Urine Urobilinogen Ur Leukocyte Esterase Urine WBC (Auto) Urine RBC (Auto) Fluid Type Fluid Crystals Synovial WBC Synovial RBC Synovial Neutrophils Synovial Lymphocytes Synov Monos/Macrophage Synovial Crystal Type Synovial Fluid Comment 02/23/18 05:54 WBC RBC Hgb Hct MCV MCH MCHC RDW Plt Count MPV Neut % (Auto) Lymph % (Auto) Merrick % (Auto) Eos % (Auto) Baso % (Auto) Neut # (Auto) Lymph # (Auto) Merrick # (Auto) Eos # (Auto) Baso # (Auto) Neutrophils % (Manual) Band Neutrophils % Lymphocytes % (Manual) Monocytes % (Manual) Eosinophils % (Manual) Platelet Estimate Hypochromasia (manual) Poikilocytosis (manual Anisocytosis (manual) Microcytosis (manual) Macrocytosis (manual) Target Cells Tear Drop Cells Ovalocytes David Cells PT INR APTT Sodium Potassium Chloride Carbon Dioxide Anion Gap BUN Creatinine Est GFR ( Amer) Est GFR (Non-Af Amer) POC Glucose (mg/dL) 77 Random Glucose Calcium Total Bilirubin AST ALT Alkaline Phosphatase Total Creatine Kinase CK-MB (Mass) Troponin I Total Protein Albumin Globulin Albumin/Globulin Ratio Procalcitonin Urine Color Urine Clarity Urine pH Ur Specific Lynn Urine Protein Urine Glucose (UA) Urine Ketones Urine Blood Urine Nitrate Urine Bilirubin Urine Urobilinogen Ur Leukocyte Esterase Urine WBC (Auto) Urine RBC (Auto) Fluid Type Fluid Crystals Synovial WBC Synovial RBC Synovial Neutrophils Synovial Lymphocytes Synov Monos/Macrophage Synovial Crystal Type Synovial Fluid Comment - Impressions Impression: Patient Name / ID : GRADY PATEL / [id number] Exam Date : 02/23/2018 11:23:05 ( Approved ) Study Comment : Sex / Age : M / 72Y Creator : Milagros Bethea Dictator : Yeyo Calloway MD Comic Artist : Resident Physician : Yeyo Calloway MD Approver2 : Report Date : 02/23/2018 11:47:24 My Comment : CT left knee History: Effusion. Comparison: CT dated 02/02/2018 Technique: Multiple contiguous axial images were performed through the left knee without the use of intravenous contrast. Subsequently, sagittal and coronal reformatted images were obtained. Findings: Persistent large multiloculated knee joint effusion with associated synovial debris and hypertrophy. Lateral subluxation of the patella. Prominent narrowing of the patellofemoral joint space laterally with subchondral sclerosis and osteophytosis. Moderate medial compartment joint space narrowing of the femorotibial joint space with subchondral sclerosis. Mild to moderate lateral compartment joint space narrowing of femorotibial joint space with subchondral sclerosis and or osteochondral change at the lateral proximal tibial plateau. Extensive vascular calcifications. Moderate posterior Landaverde's cyst. Impression: Persistent large multiloculated knee joint effusion with associated synovial debris and hypertrophy. Lateral subluxation of the patella. Prominent narrowing of the patellofemoral joint space laterally with subchondral sclerosis and osteophytosis. Moderate medial compartment joint space narrowing of the femorotibial joint space with subchondral sclerosis. Mild to moderate lateral compartment joint space narrowing of femorotibial joint space with subchondral sclerosis and or osteochondral change at the lateral proximal tibial plateau. Extensive vascular calcifications. Moderate posterior Landaverde's cyst. If there is concern for septic arthritis, correlation with MRI and or joint aspiration with culture sampling is recommended. Assessment & Plan (1) Acute gout of left knee Assessment and Plan: r/o septic arthritis fluid cell count not convincing for septic arthritis, + crystals, but worsening and patient is immunocompromised chronic effusions, known history of gouty arthritis of left knee, last cx 3 weeks ago negative NPO, will d/w Dr. Tovar addendum: wound cx neg x 24 hours will monitor at this time per Dr. Tovar f/u blood cultures MRI contraindicated due to pacemaker CT appreciated. lateral patellar subluxation is chronic (noted PF sclerosis/ subchondral cysts, also with large effusion) will check serum uric acid no orthopedic intervention planned today per Dr. Tovar, will monitor Status: Acute
[2018-02-23 06:28] LABS: BASO % 0.4 % (0.0-2.0); EOS # 0.3 K/uL (0.0-0.7); EOS % 3.1 % (0.0-4.0); HEMOGLOBIN 8.6 g/dL (12.0-18.0); LYMPH # 0.7 K/uL (1.0-4.3); LYMPH % 6.8 % (20.0-40.0); MEAN CELL VOLUME 78.9 fL (80.0-94.0); MEAN CORPUSCULAR HEMOGLOBIN 25.5 pg (27.0-31.0); MEAN CORPUSCULAR HGB CONC 32.3 g/dL (33.0-37.0); MEAN PLATELET VOLUME 8.2 fL (7.2-11.7); MONO # 0.6 K/uL (0.0-0.8); MONO % 6.4 % (0.0-10.0); NEUT # 8.3 K/uL (1.8-7.0); NEUT % 83.3 % (50.0-75.0); NRBC % 0.1 % (0.0-2.0); PLATELET COUNT 265 K/uL (130-400); RBC 3.36 Mil/uL (4.40-5.90); RED CELL DISTRIBUTION WIDTH 20.3 % (11.5-14.5)
[2018-02-23 06:48] LABS: COMPLEMENT C4 42.6 mg/dL (14.0-44.0); IMMUNOGLOBULIN A 268.2 mg/dL (70.0-400.0); IMMUNOGLOBULIN G 863.1 mg/dL (700.0-1600.0); IMMUNOGLOBULIN M 81.4 mg/dL (40.0-230.0)
[2018-02-23 06:49] LABS: ALB/GLOB RATIO 0.9 (1.0-2.1); ALBUMIN 2.6 g/dL (3.5-5.0); ALT/SGPT 31 U/L (21-72); AST/SGOT 30 U/L (17-59); BLOOD UREA NITROGEN 23 mg/dL (9-20); CALCIUM 8.3 mg/dl (8.6-10.4); GFR NON-AFRICAN AMERICAN > 60
[2018-02-23 06:51] LABS: CK-MB 1.01 ng/mL (0.0-3.38)
[2018-02-23 08:32] LABS: ANISOCYTOSIS SLIGHT; EOSINOPHIL 3 % (0-4); HYPOCHROMIC SLIGHT; LYMPHOCYTE 6 % (20-40); MONOCYTE 6 % (0-10); NEUTROPHIL 85 % (50-75); PLATELET ESTIMATE NORMAL (NORMAL); POIKILOCYTOSIS SLIGHT; TOTAL CELLS COUNTED 100
[2018-02-23 08:33] LABS: BURR CELLS SLIGHT; OVALOCYTES SLIGHT; TEARDROP CELLS SLIGHT
[2018-02-23] MEDS: Albuterol HFA 90 mcg/actuation (8 g) IH SCH (08:37)
[2018-02-23] MEDS: diltiaZEM 240 mg/24 Hours CD Cap PO SCH (09:17)
[2018-02-23] MEDS: Calcium-Vit D 500 mg-200 Units Tab UD PO SCH (09:18)
[2018-02-23] MEDS: Magnesium Oxide 400 mg Tab UD PO SCH ×3 (09:18→17:05)
[2018-02-23] MEDS: Potassium & Sodium Phosphate PO SCH ×2 (09:18→17:05)
[2018-02-23] MEDS: Pantoprazole 40 mg EC Tab PO SCH (09:19)
[2018-02-23] MEDS: Sodium Chloride 0.9% 1,000 ML IV SCH ×2 (09:22→22:05)
[2018-02-23] MEDS ORDERED: CALCIUM PO SCH (10:00)
[2018-02-23] MEDS ORDERED: Ergocalciferol 50,000 Intl Units Cap PO SCH (10:00)
[2018-02-23] MEDS ORDERED: CHOLECALCIFEROL PO SCH (10:00)
[2018-02-23] MEDS ORDERED: GlipiZIDE 2.5 mg SR Tab PO SCH (10:00)
--- NOTE | 2018-02-23 10:57 | CARD ---
APPROVED REPORT Date of service: 02/22/2018 EKG Measurement Heart [id number] <Conclusion> Sinus tachycardia with occasional ventricular-paced complexes and premature atrial complexes with aberrant conduction Left axis deviation ST & T wave abnormality, consider lateral ischemia Abnormal ECG
--- NOTE | 2018-02-23 11:41 | CP.CCUPN ---
<Priyanka Cox P - Last Filed: 02/23/18 15:34> CCU Subjective - Physician Review Subjective (Free Text): PGY-1 critical care progress note. Patient seen and examined at bedside. Patient states pain is very severe today. Denies fevers, chills, dizziness, lightheadedness, chest pain, nausea, vomiting , abdominal pain. CCU Objective - Vital Signs / Intake & Output Vital Signs (Last 4 hours): Vital Signs Temp Pulse Resp BP Pulse Ox 02/23/18 10:01 106 H 16 123/63 100 02/23/18 10:00 97 H 21 100 02/23/18 09:00 107 H 18 124/68 98 02/23/18 08:01 102 H 19 132/72 100 02/23/18 08:00 98 F 93 H 12 100 Intake and Output (Last 8hrs): Intake & Output 02/22/18 02/23/18 02/23/18 22:59 06:59 14:59 Intake Total 280 730 790 Output Total 200 1000 350 Balance 80 -270 440 Weight 115 lb 11.883 oz Intake: Intake, IV Amount 160 610 340 Right AC Midline 160 610 340 Oral 120 120 450 Output: Urine 200 1000 350 Urine, Voided 200 1000 350 Emesis 0 Other: Voiding Method Urinal # Voids Urine, Voided 1 2 # Bowel Movements 0 - Physical Exam Head: Positive for: Atraumatic, Normocephalic Pupils: Positive for: PERRL Extroacular Muscles: Positive for: EOMI Mouth: Positive for: Moist Mucous Membranes Neck: Positive for: Normal Range of Motion Respiratory/Chest: Positive for: Clear to Auscultation. Negative for: Wheezes, Rales, Rhonchi Cardiovascular: Positive for: Regular Rate and Rhythm, Normal S1, S2 Abdomen: Positive for: Normal Bowel Sounds. Negative for: Tenderness, Distention Lower Extremity: Positive for: Other (warmth, swelling and tenderness to L knee) . Negative for: CALF TENDERNESS Skin: Positive for: Warm, Dry, Normal Color Psychiatric: Positive for: Alert, Oriented x 3 - Medications Active Medications: Active Medications Generic Name Dose Route Start Last Admin Trade Name Freq PRN Reason Stop Dose Admin Albuterol 1 puff 02/23/18 10:00 02/23/18 08:37 Ventolin Hfa 90 Mcg/Actuation (8 G) IH 1 puff RQD FAHEEM Administration Apixaban 5 mg 02/23/18 10:00 Eliquis PO BID FAHEEM Calcium/Vitamin D 1 tab 02/23/18 10:00 02/23/18 09:18 Oyster Shell Calcium/Vitamin D 500 Mg-200 Iu PO 1 tab DAILY FAHEEM Administration Clonazepam 1 mg 02/23/18 10:00 02/23/18 09:18 Klonopin PO 1 mg DAILY FAHEEM Administration Dextrose 0 ml 02/22/18 20:28 Dextrose 50% Inj IV STAT PRN Hypoglycemia Protocol Protocol Dextrose 0 gm 02/22/18 20:29 Glutose 15 PO ONCE PRN Hypoglycemia Protocol Protocol Diltiazem HCl 240 mg 02/23/18 10:00 02/23/18 09:17 Cardizem Cd PO 240 mg DAILY FAHEEM Administration Ergocalciferol 1 cap 03/01/18 10:00 Drisdol 50,000 Intl Units Cap PO QWK FAHEEM Folic Acid 1 mg 02/23/18 10:00 02/23/18 09:17 Folic Acid PO 1 mg DAILY FAHEEM Administration Glucagon 0 mg 02/22/18 20:17 Glucagen Diagnostic Kit IM STAT PRN Hypoglycemia Protocol Protocol Home Med 80 mg 02/23/18 10:00 Febuxostat [Uloric] PO DAILY [facility] Piperacillin Sod/Tazobactam Sod 2.25 gm in 50 mls @ 100 mls/hr 02/23/18 02:00 02/23/18 09:19 Zosyn 2.25 Gm Iv Premix IVPB 100 mls/hr Q8H FAHEEM Administration Protocol Sodium Chloride 1,000 mls @ 80 mls/hr 02/22/18 20:30 02/23/18 09:22 Sodium Chloride 0.9% IV 80 mls/hr .[id number] FAHEEM Administration Dextrose 1,000 mls @ 0 mls/hr 02/22/18 20:35 Dextrose 5% In Water 1000 Ml IV .Q0M PRN Hypoglycemia Protocol Protocol Per Protocol Insulin Aspart 0 unit 02/23/18 00:00 02/23/18 06:00 Novolog SC Not Given Q6H [facility] Protocol Levothyroxine Sodium 175 mcg 02/23/18 06:30 02/23/18 05:45 Synthroid PO 175 mcg DAILY@0630 FAHEEM Administration Magnesium Oxide 400 mg 02/23/18 10:00 08/16/18 09:18 Mag-Ox PO 400 mg TID FAHEEM Administration Montelukast Sodium 10 mg 02/23/18 10:00 02/23/18 09:19 Singulair PO 10 mg DAILY FAHEEM Administration Pantoprazole Sodium 40 mg 02/23/18 10:00 02/23/18 09:19 Protonix Ec Tab PO 40 mg DAILY FAHEEM Administration Potassium Phos/Sodium Phos 1 pkt 02/23/18 10:00 02/23/18 09:18 Neutra-Phos PO 1 pkt BID FAHEEM Administration Prednisone 5 mg 02/23/18 10:00 02/23/18 09:18 Prednisone Tab PO 5 mg DAILY FAHEEM Administration Rosuvastatin Calcium 5 mg 02/22/18 22:00 02/22/18 22:10 Crestor PO 5 mg HS FAHEEM Administration Sodium Bicarbonate 650 mg 02/23/18 10:00 02/23/18 09:19 Sodium Bicarbonate Tab PO 650 mg TID FAHEEM Administration Tacrolimus 3 mg 02/22/18 22:00 02/23/18 09:18 Prograf Cap PO 3 mg Q12 FAHEEM Administration Tramadol HCl 50 mg 02/22/18 19:04 02/23/18 07:57 Ultram PO 50 mg TID PRN Administration Pain, Mild (1-3) - Patient Studies Lab Studies: Microbiology Studies 02/22/18 14:40 Gram Stain - Final Knee - Left Wound Culture - Preliminary NO GROWTH AFTER 24 HOURS Lab Studies 02/23/18 02/23/18 02/23/18 Range/Units 06:20 06:20 06:20 WBC (4.8-10.8) K/uL RBC (4.40-5.90) Mil/uL Hgb (12.0-18.0) g/dL Hct (35.0-51.0) % MCV (80.0-94.0) fL MCH (27.0-31.0) pg MCHC (33.0-37.0) g/dL RDW (11.5-14.5) % Plt Count (130-400) K/uL MPV (7.2-11.7) fL Neut % (Auto) (50.0-75.0) % Lymph % (Auto) (20.0-40.0) % Wirt % (Auto) (0.0-10.0) % Eos % (Auto) (0.0-4.0) % Baso % (Auto) (0.0-2.0) % Neut # (Auto) (1.8-7.0) K/uL Lymph # (Auto) (1.0-4.3) K/uL Wirt # (Auto) (0.0-0.8) K/uL Eos # (Auto) (0.0-0.7) K/uL Baso # (Auto) (0.0-0.2) K/uL Neutrophils % (Manual) (50-75) % Band Neutrophils % (0-2) % Lymphocytes % (Manual) (20-40) % Monocytes % (Manual) (0-10) % Eosinophils % (Manual) (0-4) % Platelet Estimate (NORMAL) Hypochromasia (manual) Poikilocytosis (manual Anisocytosis (manual) Microcytosis (manual) Macrocytosis (manual) Target Cells Tear Drop Cells Ovalocytes Fraser Cells PT (9.7-12.2) SECONDS INR APTT (21-34) SECONDS Sodium (132-148) mmol/L Potassium (3.6-5.2) mmol/L Chloride (98-107) mmol/L Carbon Dioxide (22-30) mmol/L Anion Gap (10-20) BUN (9-20) mg/dL Creatinine (0.8-1.5) mg/dL Est GFR ( Amer) Est GFR (Non-Af Amer) POC Glucose (mg/dL) (65-110) mg/dL Random Glucose (75-110) mg/dL Calcium (8.6-10.4) mg/dl Phosphorus (2.5-4.5) mg/dL Magnesium (1.6-2.3) mg/dL Total Bilirubin (0.2-1.3) mg/dL AST (17-59) U/L ALT (21-72) U/L Alkaline Phosphatase (38-126) U/L Total Creatine Kinase < 20 L (55-170) U/L CK-MB (Mass) 1.01 (0.0-3.38) ng/mL Troponin I 0.0850 (0.00-0.120) ng/mL Total Protein (6.3-8.3) g/dL Albumin (3.5-5.0) g/dL Globulin (2.2-3.9) gm/dL Albumin/Globulin Ratio (1.0-2.1) Procalcitonin (0.19-0.49) NG/ML Urine Color (YELLOW) Urine Clarity (Clear) Urine pH (5.0-8.0) Ur Specific [place] (1.003-1.030) Urine Protein (NEGATIVE) mg/dL Urine Glucose (UA) (Normal) mg/dL Urine Ketones (NEGATIVE) mg/dL Urine Blood (NEGATIVE) Urine Nitrate (NEGATIVE) Urine Bilirubin (NEGATIVE) Urine Urobilinogen (0.2-1.0) mg/dL Ur Leukocyte Esterase (Negative) Vicente/uL Urine WBC (Auto) (0-5) /hpf Urine RBC (Auto) (0-3) /hpf Fluid Type Fluid Crystals (NEGATIVE) Synovial WBC (0.0-150.0) /mm3 Synovial RBC (0.0-0.0) /mm3 Synovial Neutrophils (0-0) % Synovial Lymphocytes (0-0) % Synov Monos/Macrophage (0-0) % Synovial Crystal Type Synovial Fluid Comment Random Vancomycin 8.2 ug/mL IgG 863.1 (700.0-1600.0) mg/dL IgA 268.2 (70.0-400.0) mg/dL IgM 81.4 (40.0-230.0) mg/dL Complement C3 110.0 (88.0-165.0) mg/dL Complement C4 42.6 (14.0-44.0) mg/dL 02/23/18 02/23/18 02/23/18 Range/Units 06:20 06:20 05:54 WBC 10.0 (4.8-10.8) K/uL RBC 3.36 L (4.40-5.90) Mil/uL Hgb 8.6 L (12.0-18.0) g/dL Hct 26.6 L (35.0-51.0) % MCV 78.9 L (80.0-94.0) fL MCH 25.5 L (27.0-31.0) pg MCHC 32.3 L (33.0-37.0) g/dL RDW 20.3 H (11.5-14.5) % Plt Count 265 (130-400) K/uL MPV 8.2 (7.2-11.7) fL Neut % (Auto) 83.3 H (50.0-75.0) % Lymph % (Auto) 6.8 L (20.0-40.0) % Wirt % (Auto) 6.4 (0.0-10.0) % Eos % (Auto) 3.1 (0.0-4.0) % Baso % (Auto) 0.4 (0.0-2.0) % Neut # (Auto) 8.3 H (1.8-7.0) K/uL Lymph # (Auto) 0.7 L (1.0-4.3) K/uL Wirt # (Auto) 0.6 (0.0-0.8) K/uL Eos # (Auto) 0.3 (0.0-0.7) K/uL Baso # (Auto) 0.0 (0.0-0.2) K/uL Neutrophils % (Manual) 85 H (50-75) % Band Neutrophils % (0-2) % Lymphocytes % (Manual) 6 L (20-40) % Monocytes % (Manual) 6 (0-10) % Eosinophils % (Manual) 3 (0-4) % Platelet Estimate Normal (NORMAL) Hypochromasia (manual) Slight Poikilocytosis (manual Slight Anisocytosis (manual) Slight Microcytosis (manual) Macrocytosis (manual) Target Cells Tear Drop Cells Slight Ovalocytes Slight David Cells Slight PT (9.7-12.2) SECONDS INR APTT (21-34) SECONDS Sodium 132 (132-148) mmol/L Potassium 3.7 (3.6-5.2) mmol/L Chloride 100 (98-107) mmol/L Carbon Dioxide 23 (22-30) mmol/L Anion Gap 12 (10-20) BUN 23 H (9-20) mg/dL Creatinine 1.1 (0.8-1.5) mg/dL Est GFR ( Amer) > 60 Est GFR (Non-Af Amer) > 60 POC Glucose (mg/dL) 77 (65-110) mg/dL Random Glucose 71 L (75-110) mg/dL Calcium 8.3 L (8.6-10.4) mg/dl Phosphorus 2.9 (2.5-4.5) mg/dL Magnesium 1.2 L (1.6-2.3) mg/dL Total Bilirubin 0.5 (0.2-1.3) mg/dL AST 30 (17-59) U/L ALT 31 (21-72) U/L Alkaline Phosphatase 70 (38-126) U/L Total Creatine Kinase (55-170) U/L CK-MB (Mass) (0.0-3.38) ng/mL Troponin I (0.00-0.120) ng/mL Total Protein 5.7 L (6.3-8.3) g/dL Albumin 2.6 L D (3.5-5.0) g/dL Globulin 3.1 (2.2-3.9) gm/dL Albumin/Globulin Ratio 0.9 L (1.0-2.1) Procalcitonin (0.19-0.49) NG/ML Urine Color (YELLOW) Urine Clarity (Clear) Urine pH (5.0-8.0) Ur Specific [place] (1.003-1.030) Urine Protein (NEGATIVE) mg/dL Urine Glucose (UA) (Normal) mg/dL Urine Ketones (NEGATIVE) mg/dL Urine Blood (NEGATIVE) Urine Nitrate (NEGATIVE) Urine Bilirubin (NEGATIVE) Urine Urobilinogen (0.2-1.0) mg/dL Ur Leukocyte Esterase (Negative) Vicente/uL Urine WBC (Auto) (0-5) /hpf Urine RBC (Auto) (0-3) /hpf Fluid Type Fluid Crystals (NEGATIVE) Synovial WBC (0.0-150.0) /mm3 Synovial RBC (0.0-0.0) /mm3 Synovial Neutrophils (0-0) % Synovial Lymphocytes (0-0) % Synov Monos/Macrophage (0-0) % Synovial Crystal Type Synovial Fluid Comment Random Vancomycin ug/mL IgG (700.0-1600.0) mg/dL IgA (70.0-400.0) mg/dL IgM (40.0-230.0) mg/dL Complement C3 (88.0-165.0) mg/dL Complement C4 (14.0-44.0) mg/dL 02/22/18 02/22/18 02/22/18 Range/Units 23:32 23:28 21:09 WBC (4.8-10.8) K/uL RBC (4.40-5.90) Mil/uL Hgb (12.0-18.0) g/dL Hct (35.0-51.0) % MCV (80.0-94.0) fL MCH (27.0-31.0) pg MCHC (33.0-37.0) g/dL RDW (11.5-14.5) % Plt Count (130-400) K/uL MPV (7.2-11.7) fL Neut % (Auto) (50.0-75.0) % Lymph % (Auto) (20.0-40.0) % Wirt % (Auto) (0.0-10.0) % Eos % (Auto) (0.0-4.0) % Baso % (Auto) (0.0-2.0) % Neut # (Auto) (1.8-7.0) K/uL Lymph # (Auto) (1.0-4.3) K/uL Wirt # (Auto) (0.0-0.8) K/uL Eos # (Auto) (0.0-0.7) K/uL Baso # (Auto) (0.0-0.2) K/uL Neutrophils % (Manual) (50-75) % Band Neutrophils % (0-2) % Lymphocytes % (Manual) (20-40) % Monocytes % (Manual) (0-10) % Eosinophils % (Manual) (0-4) % Platelet Estimate (NORMAL) Hypochromasia (manual) Poikilocytosis (manual Anisocytosis (manual) Microcytosis (manual) Macrocytosis (manual) Target Cells Tear Drop Cells Ovalocytes David Cells PT (9.7-12.2) SECONDS INR APTT (21-34) SECONDS Sodium (132-148) mmol/L Potassium (3.6-5.2) mmol/L Chloride (98-107) mmol/L Carbon Dioxide (22-30) mmol/L Anion Gap (10-20) BUN (9-20) mg/dL Creatinine (0.8-1.5) mg/dL Est GFR ( Amer) Est GFR (Non-Af Amer) POC Glucose (mg/dL) 145 H (65-110) mg/dL Random Glucose (75-110) mg/dL Calcium (8.6-10.4) mg/dl Phosphorus (2.5-4.5) mg/dL Magnesium (1.6-2.3) mg/dL Total Bilirubin (0.2-1.3) mg/dL AST (17-59) U/L ALT (21-72) U/L Alkaline Phosphatase (38-126) U/L Total Creatine Kinase 82 (55-170) U/L CK-MB (Mass) 0.95 (0.0-3.38) ng/mL Troponin I 0.0860 (0.00-0.120) ng/mL Total Protein (6.3-8.3) g/dL Albumin (3.5-5.0) g/dL Globulin (2.2-3.9) gm/dL Albumin/Globulin Ratio (1.0-2.1) Procalcitonin 4.91 H (0.19-0.49) NG/ML Urine Color (YELLOW) Urine Clarity (Clear) Urine pH (5.0-8.0) Ur Specific [place] (1.003-1.030) Urine Protein (NEGATIVE) mg/dL Urine Glucose (UA) (Normal) mg/dL Urine Ketones (NEGATIVE) mg/dL Urine Blood (NEGATIVE) Urine Nitrate (NEGATIVE) Urine Bilirubin (NEGATIVE) Urine Urobilinogen (0.2-1.0) mg/dL Ur Leukocyte Esterase (Negative) Vicente/uL Urine WBC (Auto) (0-5) /hpf Urine RBC (Auto) (0-3) /hpf Fluid Type Fluid Crystals (NEGATIVE) Synovial WBC (0.0-150.0) /mm3 Synovial RBC (0.0-0.0) /mm3 Synovial Neutrophils (0-0) % Synovial Lymphocytes (0-0) % Synov Monos/Macrophage (0-0) % Synovial Crystal Type Synovial Fluid Comment Random Vancomycin ug/mL IgG (700.0-1600.0) mg/dL IgA (70.0-400.0) mg/dL IgM (40.0-230.0) mg/dL Complement C3 (88.0-165.0) mg/dL Complement C4 (14.0-44.0) mg/dL 02/22/18 02/22/18 02/22/18 Range/Units 14:50 14:36 12:45 WBC (4.8-10.8) K/uL RBC (4.40-5.90) Mil/uL Hgb (12.0-18.0) g/dL Hct (35.0-51.0) % MCV (80.0-94.0) fL MCH (27.0-31.0) pg MCHC (33.0-37.0) g/dL RDW (11.5-14.5) % Plt Count (130-400) K/uL MPV (7.2-11.7) fL Neut % (Auto) (50.0-75.0) % Lymph % (Auto) (20.0-40.0) % Wirt % (Auto) (0.0-10.0) % Eos % (Auto) (0.0-4.0) % Baso % (Auto) (0.0-2.0) % Neut # (Auto) (1.8-7.0) K/uL Lymph # (Auto) (1.0-4.3) K/uL Wirt # (Auto) (0.0-0.8) K/uL Eos # (Auto) (0.0-0.7) K/uL Baso # (Auto) (0.0-0.2) K/uL Neutrophils % (Manual) (50-75) % Band Neutrophils % (0-2) % Lymphocytes % (Manual) (20-40) % Monocytes % (Manual) (0-10) % Eosinophils % (Manual) (0-4) % Platelet Estimate (NORMAL) Hypochromasia (manual) Poikilocytosis (manual Anisocytosis (manual) Microcytosis (manual) Macrocytosis (manual) Target Cells Tear Drop Cells Ovalocytes Fraser Cells PT (9.7-12.2) SECONDS INR APTT (21-34) SECONDS Sodium (132-148) mmol/L Potassium (3.6-5.2) mmol/L Chloride (98-107) mmol/L Carbon Dioxide (22-30) mmol/L Anion Gap (10-20) BUN (9-20) mg/dL Creatinine (0.8-1.5) mg/dL Est GFR ( Amer) Est GFR (Non-Af Amer) POC Glucose (mg/dL) (65-110) mg/dL Random Glucose (75-110) mg/dL Calcium (8.6-10.4) mg/dl Phosphorus (2.5-4.5) mg/dL Magnesium (1.6-2.3) mg/dL Total Bilirubin (0.2-1.3) mg/dL AST (17-59) U/L ALT (21-72) U/L Alkaline Phosphatase (38-126) U/L Total Creatine Kinase (55-170) U/L CK-MB (Mass) (0.0-3.38) ng/mL Troponin I (0.00-0.120) ng/mL Total Protein (6.3-8.3) g/dL Albumin (3.5-5.0) g/dL Globulin (2.2-3.9) gm/dL Albumin/Globulin Ratio (1.0-2.1) Procalcitonin (0.19-0.49) NG/ML Urine Color Yellow (YELLOW) Urine Clarity Clear (Clear) Urine pH 7.0 (5.0-8.0) Ur Specific [place] 1.013 (1.003-1.030) Urine Protein 1+ H (NEGATIVE) mg/dL Urine Glucose (UA) Normal (Normal) mg/dL Urine Ketones Negative (NEGATIVE) mg/dL Urine Blood Negative (NEGATIVE) Urine Nitrate Negative (NEGATIVE) Urine Bilirubin Negative (NEGATIVE) Urine Urobilinogen Normal (0.2-1.0) mg/dL Ur Leukocyte Esterase Neg (Negative) Vicente/uL Urine WBC (Auto) 1 (0-5) /hpf Urine RBC (Auto) < 1 (0-3) /hpf Fluid Type Synovial fluid Fluid Crystals Positive H (NEGATIVE) Synovial WBC 33502.0 H (0.0-150.0) /mm3 Synovial RBC 64135.0 H (0.0-0.0) /mm3 Synovial Neutrophils 98.0 H (0-0) % Synovial Lymphocytes 1.0 H (0-0) % Synov Monos/Macrophage 1 H (0-0) % Synovial Crystal Type Monosodium urate Synovial Fluid Comment Random Vancomycin ug/mL IgG (700.0-1600.0) mg/dL IgA (70.0-400.0) mg/dL IgM (40.0-230.0) mg/dL Complement C3 (88.0-165.0) mg/dL Complement C4 (14.0-44.0) mg/dL 02/22/18 02/22/18 02/22/18 Range/Units 12:32 12:32 12:32 WBC 15.9 H D (4.8-10.8) K/uL RBC 3.79 L (4.40-5.90) Mil/uL Hgb 9.6 L (12.0-18.0) g/dL Hct 30.0 L (35.0-51.0) % MCV 79.2 L D (80.0-94.0) fL MCH 25.4 L (27.0-31.0) pg MCHC 32.0 L (33.0-37.0) g/dL RDW 20.0 H (11.5-14.5) % Plt Count 273 (130-400) K/uL MPV 8.0 (7.2-11.7) fL Neut % (Auto) 87.1 H (50.0-75.0) % Lymph % (Auto) 5.7 L (20.0-40.0) % Wirt % (Auto) 5.5 (0.0-10.0) % Eos % (Auto) 1.2 (0.0-4.0) % Baso % (Auto) 0.5 (0.0-2.0) % Neut # (Auto) 13.9 H (1.8-7.0) K/uL Lymph # (Auto) 0.9 L (1.0-4.3) K/uL Wirt # (Auto) 0.9 H (0.0-0.8) K/uL Eos # (Auto) 0.2 (0.0-0.7) K/uL Baso # (Auto) 0.1 (0.0-0.2) K/uL Neutrophils % (Manual) 80 H (50-75) % Band Neutrophils % 3 H (0-2) % Lymphocytes % (Manual) 9 L (20-40) % Monocytes % (Manual) 5 (0-10) % Eosinophils % (Manual) 3 (0-4) % Platelet Estimate Normal (NORMAL) Hypochromasia (manual) Slight Poikilocytosis (manual Slight Anisocytosis (manual) Slight Microcytosis (manual) Slight Macrocytosis (manual) Slight Target Cells Slight Tear Drop Cells Slight Ovalocytes Slight David Cells Slight PT 19.0 H (9.7-12.2) SECONDS INR 1.7 APTT 34 (21-34) SECONDS Sodium 131 L (132-148) mmol/L Potassium 4.4 (3.6-5.2) mmol/L Chloride 90 L (98-107) mmol/L Carbon Dioxide 30 (22-30) mmol/L Anion Gap 14 (10-20) BUN 37 H (9-20) mg/dL Creatinine 1.3 (0.8-1.5) mg/dL Est GFR ( Amer) > 60 Est GFR (Non-Af Amer) 54 POC Glucose (mg/dL) (65-110) mg/dL Random Glucose 119 H (75-110) mg/dL Calcium 8.9 (8.6-10.4) mg/dl Phosphorus (2.5-4.5) mg/dL Magnesium (1.6-2.3) mg/dL Total Bilirubin 0.8 (0.2-1.3) mg/dL AST 36 (17-59) U/L ALT 39 (21-72) U/L Alkaline Phosphatase 78 (38-126) U/L Total Creatine Kinase (55-170) U/L CK-MB (Mass) (0.0-3.38) ng/mL Troponin I 0.1590 H* (0.00-0.120) ng/mL Total Protein 6.7 (6.3-8.3) g/dL Albumin 3.3 L (3.5-5.0) g/dL Globulin 3.4 (2.2-3.9) gm/dL Albumin/Globulin Ratio 1.0 (1.0-2.1) Procalcitonin (0.19-0.49) NG/ML Urine Color (YELLOW) Urine Clarity (Clear) Urine pH (5.0-8.0) Ur Specific [place] (1.003-1.030) Urine Protein (NEGATIVE) mg/dL Urine Glucose (UA) (Normal) mg/dL Urine Ketones (NEGATIVE) mg/dL Urine Blood (NEGATIVE) Urine Nitrate (NEGATIVE) Urine Bilirubin (NEGATIVE) Urine Urobilinogen (0.2-1.0) mg/dL Ur Leukocyte Esterase (Negative) Vicente/uL Urine WBC (Auto) (0-5) /hpf Urine RBC (Auto) (0-3) /hpf Fluid Type Fluid Crystals (NEGATIVE) Synovial WBC (0.0-150.0) /mm3 Synovial RBC (0.0-0.0) /mm3 Synovial Neutrophils (0-0) % Synovial Lymphocytes (0-0) % Synov Monos/Macrophage (0-0) % Synovial Crystal Type Synovial Fluid Comment Random Vancomycin ug/mL IgG (700.0-1600.0) mg/dL IgA (70.0-400.0) mg/dL IgM (40.0-230.0) mg/dL Complement C3 (88.0-165.0) mg/dL Complement C4 (14.0-44.0) mg/dL Laboratory Results - last 24 hr 02/22/18 02/22/18 02/22/18 12:32 12:32 12:32 WBC 15.9 H D RBC 3.79 L Hgb 9.6 L Hct 30.0 L MCV 79.2 L D MCH 25.4 L MCHC 32.0 L RDW 20.0 H Plt Count 273 MPV 8.0 Neut % (Auto) 87.1 H Lymph % (Auto) 5.7 L Wirt % (Auto) 5.5 Eos % (Auto) 1.2 Baso % (Auto) 0.5 Neut # (Auto) 13.9 H Lymph # (Auto) 0.9 L Wirt # (Auto) 0.9 H Eos # (Auto) 0.2 Baso # (Auto) 0.1 Neutrophils % (Manual) 80 H Band Neutrophils % 3 H Lymphocytes % (Manual) 9 L Monocytes % (Manual) 5 Eosinophils % (Manual) 3 Platelet Estimate Normal Hypochromasia (manual) Slight Poikilocytosis (manual Slight Anisocytosis (manual) Slight Microcytosis (manual) Slight Macrocytosis (manual) Slight Target Cells Slight Tear Drop Cells Slight Ovalocytes Slight Fraser Cells Slight PT 19.0 H INR 1.7 APTT 34 Sodium 131 L Potassium 4.4 Chloride 90 L Carbon Dioxide 30 Anion Gap 14 BUN 37 H Creatinine 1.3 Est GFR ( Amer) > 60 Est GFR (Non-Af Amer) 54 POC Glucose (mg/dL) Random Glucose 119 H Calcium 8.9 Phosphorus Magnesium Total Bilirubin 0.8 AST 36 ALT 39 Alkaline Phosphatase 78 Total Creatine Kinase CK-MB (Mass) Troponin I 0.1590 H* Total Protein 6.7 Albumin 3.3 L Globulin 3.4 Albumin/Globulin Ratio 1.0 Procalcitonin Urine Color Urine Clarity Urine pH Ur Specific [place] Urine Protein Urine Glucose (UA) Urine Ketones Urine Blood Urine Nitrate Urine Bilirubin Urine Urobilinogen Ur Leukocyte Esterase Urine WBC (Auto) Urine RBC (Auto) Fluid Type Fluid Crystals Synovial WBC Synovial RBC Synovial Neutrophils Synovial Lymphocytes Synov Monos/Macrophage Synovial Crystal Type Synovial Fluid Comment Random Vancomycin IgG IgA IgM Complement C3 Complement C4 02/22/18 02/22/18 02/22/18 12:45 14:36 14:50 WBC RBC Hgb Hct MCV MCH MCHC RDW Plt Count MPV Neut % (Auto) Lymph % (Auto) Wirt % (Auto) Eos % (Auto) Baso % (Auto) Neut # (Auto) Lymph # (Auto) Wirt # (Auto) Eos # (Auto) Baso # (Auto) Neutrophils % (Manual) Band Neutrophils % Lymphocytes % (Manual) Monocytes % (Manual) Eosinophils % (Manual) Platelet Estimate Hypochromasia (manual) Poikilocytosis (manual Anisocytosis (manual) Microcytosis (manual) Macrocytosis (manual) Target Cells Tear Drop Cells Ovalocytes David Cells PT INR APTT Sodium Potassium Chloride Carbon Dioxide Anion Gap BUN Creatinine Est GFR ( Amer) Est GFR (Non-Af Amer) POC Glucose (mg/dL) Random Glucose Calcium Phosphorus Magnesium Total Bilirubin AST ALT Alkaline Phosphatase Total Creatine Kinase CK-MB (Mass) Troponin I Total Protein Albumin Globulin Albumin/Globulin Ratio Procalcitonin Urine Color Yellow Urine Clarity Clear Urine pH 7.0 Ur Specific [place] 1.013 Urine Protein 1+ H Urine Glucose (UA) Normal Urine Ketones Negative Urine Blood Negative Urine Nitrate Negative Urine Bilirubin Negative Urine Urobilinogen Normal Ur Leukocyte Esterase Neg Urine WBC (Auto) 1 Urine RBC (Auto) < 1 Fluid Type Synovial fluid Fluid Crystals Positive H Synovial WBC 06989.0 H Synovial RBC 96815.0 H Synovial Neutrophils 98.0 H Synovial Lymphocytes 1.0 H Synov Monos/Macrophage 1 H Synovial Crystal Type Monosodium urate Synovial Fluid Comment Random Vancomycin IgG IgA IgM Complement C3 Complement C4 02/22/18 02/22/18 02/22/18 21:09 23:28 23:32 WBC RBC Hgb Hct MCV MCH MCHC RDW Plt Count MPV Neut % (Auto) Lymph % (Auto) Wirt % (Auto) Eos % (Auto) Baso % (Auto) Neut # (Auto) Lymph # (Auto) Wirt # (Auto) Eos # (Auto) Baso # (Auto) Neutrophils % (Manual) Band Neutrophils % Lymphocytes % (Manual) Monocytes % (Manual) Eosinophils % (Manual) Platelet Estimate Hypochromasia (manual) Poikilocytosis (manual Anisocytosis (manual) Microcytosis (manual) Macrocytosis (manual) Target Cells Tear Drop Cells Ovalocytes Fraser Cells PT INR APTT Sodium Potassium Chloride Carbon Dioxide Anion Gap BUN Creatinine Est GFR ( Amer) Est GFR (Non-Af Amer) POC Glucose (mg/dL) 145 H Random Glucose Calcium Phosphorus Magnesium Total Bilirubin AST ALT Alkaline Phosphatase Total Creatine Kinase 82 CK-MB (Mass) 0.95 Troponin I 0.0860 Total Protein Albumin Globulin Albumin/Globulin Ratio Procalcitonin 4.91 H Urine Color Urine Clarity Urine pH Ur Specific [place] Urine Protein Urine Glucose (UA) Urine Ketones Urine Blood Urine Nitrate Urine Bilirubin Urine Urobilinogen Ur Leukocyte Esterase Urine WBC (Auto) Urine RBC (Auto) Fluid Type Fluid Crystals Synovial WBC Synovial RBC Synovial Neutrophils Synovial Lymphocytes Synov Monos/Macrophage Synovial Crystal Type Synovial Fluid Comment Random Vancomycin IgG IgA IgM Complement C3 Complement C4 02/23/18 02/23/18 02/23/18 05:54 06:20 06:20 WBC 10.0 RBC 3.36 L Hgb 8.6 L Hct 26.6 L MCV 78.9 L MCH 25.5 L MCHC 32.3 L RDW 20.3 H Plt Count 265 MPV 8.2 Neut % (Auto) 83.3 H Lymph % (Auto) 6.8 L Wirt % (Auto) 6.4 Eos % (Auto) 3.1 Baso % (Auto) 0.4 Neut # (Auto) 8.3 H Lymph # (Auto) 0.7 L Wirt # (Auto) 0.6 Eos # (Auto) 0.3 Baso # (Auto) 0.0 Neutrophils % (Manual) 85 H Band Neutrophils % Lymphocytes % (Manual) 6 L Monocytes % (Manual) 6 Eosinophils % (Manual) 3 Platelet Estimate Normal Hypochromasia (manual) Slight Poikilocytosis (manual Slight Anisocytosis (manual) Slight Microcytosis (manual) Macrocytosis (manual) Target Cells Tear Drop Cells Slight Ovalocytes Slight David Cells Slight PT INR APTT Sodium 132 Potassium 3.7 Chloride 100 Carbon Dioxide 23 Anion Gap 12 BUN 23 H Creatinine 1.1 Est GFR ( Amer) > 60 Est GFR (Non-Af Amer) > 60 POC Glucose (mg/dL) 77 Random Glucose 71 L Calcium 8.3 L Phosphorus 2.9 Magnesium 1.2 L Total Bilirubin 0.5 AST 30 ALT 31 Alkaline Phosphatase 70 Total Creatine Kinase CK-MB (Mass) Troponin I Total Protein 5.7 L Albumin 2.6 L D Globulin 3.1 Albumin/Globulin Ratio 0.9 L Procalcitonin Urine Color Urine Clarity Urine pH Ur Specific [place] Urine Protein Urine Glucose (UA) Urine Ketones Urine Blood Urine Nitrate Urine Bilirubin Urine Urobilinogen Ur Leukocyte Esterase Urine WBC (Auto) Urine RBC (Auto) Fluid Type Fluid Crystals Synovial WBC Synovial RBC Synovial Neutrophils Synovial Lymphocytes Synov Monos/Macrophage Synovial Crystal Type Synovial Fluid Comment Random Vancomycin IgG IgA IgM Complement C3 Complement C4 02/23/18 02/23/18 02/23/18 06:20 06:20 06:20 WBC RBC Hgb Hct MCV MCH MCHC RDW Plt Count MPV Neut % (Auto) Lymph % (Auto) Wirt % (Auto) Eos % (Auto) Baso % (Auto) Neut # (Auto) Lymph # (Auto) Wirt # (Auto) Eos # (Auto) Baso # (Auto) Neutrophils % (Manual) Band Neutrophils % Lymphocytes % (Manual) Monocytes % (Manual) Eosinophils % (Manual) Platelet Estimate Hypochromasia (manual) Poikilocytosis (manual Anisocytosis (manual) Microcytosis (manual) Macrocytosis (manual) Target Cells Tear Drop Cells Ovalocytes David Cells PT INR APTT Sodium Potassium Chloride Carbon Dioxide Anion Gap BUN Creatinine Est GFR ( Amer) Est GFR (Non-Af Amer) POC Glucose (mg/dL) Random Glucose Calcium Phosphorus Magnesium Total Bilirubin AST ALT Alkaline Phosphatase Total Creatine Kinase < 20 L CK-MB (Mass) 1.01 Troponin I 0.0850 Total Protein Albumin Globulin Albumin/Globulin Ratio Procalcitonin Urine Color Urine Clarity Urine pH Ur Specific [place] Urine Protein Urine Glucose (UA) Urine Ketones Urine Blood Urine Nitrate Urine Bilirubin Urine Urobilinogen Ur Leukocyte Esterase Urine WBC (Auto) Urine RBC (Auto) Fluid Type Fluid Crystals Synovial WBC Synovial RBC Synovial Neutrophils Synovial Lymphocytes Synov Monos/Macrophage Synovial Crystal Type Synovial Fluid Comment Random Vancomycin 8.2 IgG 863.1 IgA 268.2 IgM 81.4 Complement C3 110.0 Complement C4 42.6 EKG/Cardiology Studies: Cardiology / EKG Studies 02/22/18 11:55 ELECTROCARDIOGRAM Stat Comment: Mode Of Transportation: BED Reason For Exam: SOB 02/22/18 22:50 EKG [ELECTROCARDIOGRAM] Q8H Comment: Mode Of Transportation: Reason For Exam: elevated troponin 02/23/18 06:50 EKG [ELECTROCARDIOGRAM] Q8H Comment: Mode Of Transportation: Reason For Exam: elevated troponin Fingerstick Blood Sugar Results: 77 Review of Systems - Review of Systems All systems: reviewed and no additional remarkable complaints except (as per HPI ) Critical Care Progress Note - Prophylaxis GI Prophylaxis GI: PPI - Nutrition Nutrition: Nutrition Category Date Time Status Heart Healthy Diet [DIET] Diets 02/23/18 Breakfast Active Assessment/Plan - Assessment and Plan (Free Text) Plan: Patient is a 72 year old male with a PMHx of donor kidney transplant, hypertrophic cardiomyopathy s/p ICD, hx of endocarditis requiring ICD replacement (2016), chronic atrial fibrillation, gout, colon CA with colectomy, NIDDM post-transplant, HTN, COPD, pulmonary fibrosis, hypothyroid s/ p thyroidectomy complaining of worsening knee pain and swelling, admitted for sepsis. 02/23/18 Patient afebrile, bp improved, will obtain CT L knee. Neuro: patient much more awake and alert today Tramadol PRN pain Cardio: Troponin initially positive, downtrending to normal: 0.1590, 0.0860, 0.0850 EKG: Sinus tachycardia, occassional PVCs, LA deviation. Cardizem 240mg PO daily Echocardiogram 01/05/2018: EF 58%. (see full report) IVF Pulm: Montelukast maintain SpO2 > 95% GI: Heart Healthy Diet Renal: hx of renal transplant Tacrolimus. f/u Tacrolimus level. Prednisone 5mg PO daily BUN/Cr 23/1.1 (downtrending) Endocrine: Aspart sliding scale hx of hypothyroid s/p thyroidectomy Levyothyroxine 175 mcg PO daily Infectious disease: afebrile: 98F WBC 10.0 (down from 15.9 yesterday) synovial fluid: crystals positive (monosodium urate); WBC 78,618; RBC 70,105; neutrophils 98; lymphocytes 1.0, monos/macrophage 1 MRSA screen: pending blood culture: pending urine culture: pending synovial fluid culture: prelim shows no growth after [address] Nash consulted, who recommends: synovial fluid studies, consider ortho eval/bone scan/MRI knee, consider FERNANDO, continue IV antibiotics. Zosyn 2.25gm IVPB q8h MSK: Ortho Dr. Tovar consulted. Help appreciated. will check serum uric acid f/u blood cultures MRI contra-indicated due to PM no orthopedic intervention planned today per Dr. Tovar, will monitor CT left knee: Persistent large multiloculated knee joint effusion with associated synovial debris and hypertrophy. Lateral subluxation of the patella. Prominent narrowing of the patellofemoral joint space laterally with subchondral sclersos and osteophytosis. Landaverde's cyst (see full report) cold compresses to left knee OOB to chair Heme: H/H 8.6/26.6 Hold Eliquis continue to monitor Prophylaxis: Protonix 40mg PO daily ergocalciferol 1 cap per week folic acid Magnesium oxide phosphorus sodium bicarb Dispo: Continue ICU management. Case discussed with Dr. Joe Barnett. <Roman Barnett - Last Filed: 02/23/18 15:56> CCU Objective - Vital Signs / Intake & Output Vital Signs (Last 4 hours): Vital Signs Temp Pulse Resp BP Pulse Ox 02/23/18 15:01 81 26 H 126/62 100 02/23/18 15:00 87 20 100 02/23/18 14:00 90 28 H 118/61 100 02/23/18 13:00 93 H 30 H 121/53 L 100 02/23/18 12:01 95 H 23 130/59 L 100 02/23/18 12:00 98.7 F 95 H 21 100 Intake and Output (Last 8hrs): Intake & Output 02/23/18 02/23/18 02/23/18 06:59 14:59 22:59 Intake Total 730 1230 80 Output Total 1000 350 250 Balance -270 880 -170 Weight 115 lb 11.883 oz Intake: Intake, IV Amount 610 660 80 Right AC Midline 610 660 80 Oral 120 570 0 Output: Urine 1000 350 250 Urine, Voided 1000 350 250 Emesis 0 Other: # Voids Urine, Voided 2 # Bowel Movements 0 0 - Medications Active Medications: Active Medications Generic Name Dose Route Start Last Admin Trade Name Freq PRN Reason Stop Dose Admin Albuterol 1 puff 02/23/18 10:00 02/23/18 08:37 Ventolin Hfa 90 Mcg/Actuation (8 G) IH 1 puff RQD FAHEEM Administration Calcium/Vitamin D 1 tab 02/23/18 10:00 02/23/18 09:18 Oyster Shell Calcium/Vitamin D 500 Mg-200 Iu PO 1 tab DAILY FAHEEM Administration Clonazepam 1 mg 02/23/18 10:00 02/23/18 09:18 Klonopin PO 1 mg DAILY FAHEEM Administration Dextrose 0 ml 02/22/18 20:28 Dextrose 50% Inj IV STAT PRN Hypoglycemia Protocol Protocol Dextrose 0 gm 02/22/18 20:29 Glutose 15 PO ONCE PRN Hypoglycemia Protocol Protocol Diltiazem HCl 240 mg 02/23/18 10:00 02/23/18 09:17 Cardizem Cd PO 240 mg DAILY FAHEEM Administration Ergocalciferol 1 cap 03/01/18 10:00 Drisdol 50,000 Intl Units Cap PO QWK FAHEEM Folic Acid 1 mg 02/23/18 10:00 02/23/18 09:17 Folic Acid PO 1 mg DAILY FAHEEM Administration Glucagon 0 mg 02/22/18 20:17 Glucagen Diagnostic Kit IM STAT PRN Hypoglycemia Protocol Protocol Home Med 1 tab 02/23/18 12:00 02/23/18 13:24 Patient's Own Medication PO 1 tab DAILY FAHEEM Administration Piperacillin Sod/Tazobactam Sod 2.25 gm in 50 mls @ 100 mls/hr 02/23/18 02:00 02/23/18 09:19 Zosyn 2.25 Gm Iv Premix IVPB 100 mls/hr Q8H FAHEEM Administration Protocol Sodium Chloride 1,000 mls @ 80 mls/hr 02/22/18 20:30 02/23/18 09:22 Sodium Chloride 0.9% IV 80 mls/hr .[id number] FAHEEM Administration Dextrose 1,000 mls @ 0 mls/hr 02/22/18 20:35 Dextrose 5% In Water 1000 Ml IV .Q0M PRN Hypoglycemia Protocol Protocol Per Protocol Insulin Aspart 0 unit 02/23/18 00:00 02/23/18 11:50 Novolog SC Not Given Q6H [facility] Protocol Levothyroxine Sodium 175 mcg 02/23/18 06:30 02/23/18 05:45 Synthroid PO 175 mcg DAILY@0630 FAHEEM Administration Magnesium Oxide 400 mg 02/23/18 10:00 02/23/18 13:23 Mag-Ox PO 400 mg TID FAHEEM Administration Montelukast Sodium 10 mg 02/23/18 10:00 02/23/18 09:19 Singulair PO 10 mg DAILY FAHEEM Administration Pantoprazole Sodium 40 mg 02/23/18 10:00 02/23/18 09:19 Protonix Ec Tab PO 40 mg DAILY FAHEEM Administration Potassium Phos/Sodium Phos 1 pkt 02/23/18 10:00 02/23/18 09:18 Neutra-Phos PO 1 pkt BID FAHEEM Administration Prednisone 5 mg 02/23/18 10:00 02/23/18 09:18 Prednisone Tab PO 5 mg DAILY FAHEEM Administration Rosuvastatin Calcium 5 mg 02/22/18 22:00 02/22/18 22:10 Crestor PO 5 mg HS FAHEEM Administration Sodium Bicarbonate 650 mg 02/23/18 10:00 02/23/18 13:24 Sodium Bicarbonate Tab PO 650 mg TID FAHEEM Administration Tacrolimus 3 mg 02/22/18 22:00 02/23/18 09:18 Prograf Cap PO 3 mg Q12 FAHEEM Administration Tramadol HCl 50 mg 02/22/18 19:04 02/23/18 07:57 Ultram PO 50 mg TID PRN Administration Pain, Mild (1-3) - Patient Studies Lab Studies: Microbiology Studies 02/22/18 14:54 Blood Culture - Preliminary Blood NO GROWTH AFTER 24 HOURS 02/22/18 14:54 Blood Culture - Preliminary Blood NO GROWTH AFTER 24 HOURS 02/22/18 14:40 Gram Stain - Final Knee - Left Wound Culture - Preliminary NO GROWTH AFTER 24 HOURS Lab Studies 02/23/18 02/23/18 02/23/18 Range/Units 12:50 11:37 06:20 WBC (4.8-10.8) K/uL RBC (4.40-5.90) Mil/uL Hgb (12.0-18.0) g/dL Hct (35.0-51.0) % MCV (80.0-94.0) fL MCH (27.0-31.0) pg MCHC (33.0-37.0) g/dL RDW (11.5-14.5) % Plt Count (130-400) K/uL MPV (7.2-11.7) fL Neut % (Auto) (50.0-75.0) % Lymph % (Auto) (20.0-40.0) % Wirt % (Auto) (0.0-10.0) % Eos % (Auto) (0.0-4.0) % Baso % (Auto) (0.0-2.0) % Neut # (Auto) (1.8-7.0) K/uL Lymph # (Auto) (1.0-4.3) K/uL Wirt # (Auto) (0.0-0.8) K/uL Eos # (Auto) (0.0-0.7) K/uL Baso # (Auto) (0.0-0.2) K/uL Neutrophils % (Manual) (50-75) % Lymphocytes % (Manual) (20-40) % Monocytes % (Manual) (0-10) % Eosinophils % (Manual) (0-4) % Platelet Estimate (NORMAL) Hypochromasia (manual) Poikilocytosis (manual Anisocytosis (manual) Tear Drop Cells Ovalocytes Fraser Cells Sodium (132-148) mmol/L Potassium (3.6-5.2) mmol/L Chloride (98-107) mmol/L Carbon Dioxide (22-30) mmol/L Anion Gap (10-20) BUN (9-20) mg/dL Creatinine (0.8-1.5) mg/dL Est GFR ( Amer) Est GFR (Non-Af Amer) POC Glucose (mg/dL) 118 H (65-110) mg/dL Random Glucose (75-110) mg/dL Lactic Acid 1.6 (0.7-2.1) mmol/L Uric Acid 3.2 L (3.5-8.5) mg/dL Calcium (8.6-10.4) mg/dl Phosphorus (2.5-4.5) mg/dL Magnesium (1.6-2.3) mg/dL Total Bilirubin (0.2-1.3) mg/dL AST (17-59) U/L ALT (21-72) U/L Alkaline Phosphatase (38-126) U/L Total Creatine Kinase < 20 L (55-170) U/L CK-MB (Mass) 1.01 (0.0-3.38) ng/mL Troponin I 0.0850 (0.00-0.120) ng/mL Total Protein (6.3-8.3) g/dL Albumin (3.5-5.0) g/dL Globulin (2.2-3.9) gm/dL Albumin/Globulin Ratio (1.0-2.1) Procalcitonin (0.19-0.49) NG/ML Synovial WBC (0.0-150.0) /mm3 Synovial RBC (0.0-0.0) /mm3 Synovial Neutrophils (0-0) % Synovial Lymphocytes (0-0) % Synov Monos/Macrophage (0-0) % Synovial Fluid Comment Random Vancomycin ug/mL IgG (700.0-1600.0) mg/dL IgA (70.0-400.0) mg/dL IgM (40.0-230.0) mg/dL Complement C3 (88.0-165.0) mg/dL Complement C4 (14.0-44.0) mg/dL 02/23/18 02/23/18 02/23/18 Range/Units 06:20 06:20 06:20 WBC (4.8-10.8) K/uL RBC (4.40-5.90) Mil/uL Hgb (12.0-18.0) g/dL Hct (35.0-51.0) % MCV (80.0-94.0) fL MCH (27.0-31.0) pg MCHC (33.0-37.0) g/dL RDW (11.5-14.5) % Plt Count (130-400) K/uL MPV (7.2-11.7) fL Neut % (Auto) (50.0-75.0) % Lymph % (Auto) (20.0-40.0) % Wirt % (Auto) (0.0-10.0) % Eos % (Auto) (0.0-4.0) % Baso % (Auto) (0.0-2.0) % Neut # (Auto) (1.8-7.0) K/uL Lymph # (Auto) (1.0-4.3) K/uL Wirt # (Auto) (0.0-0.8) K/uL Eos # (Auto) (0.0-0.7) K/uL Baso # (Auto) (0.0-0.2) K/uL Neutrophils % (Manual) (50-75) % Lymphocytes % (Manual) (20-40) % Monocytes % (Manual) (0-10) % Eosinophils % (Manual) (0-4) % Platelet Estimate (NORMAL) Hypochromasia (manual) Poikilocytosis (manual Anisocytosis (manual) Tear Drop Cells Ovalocytes Fraser Cells Sodium 132 (132-148) mmol/L Potassium 3.7 (3.6-5.2) mmol/L Chloride 100 (98-107) mmol/L Carbon Dioxide 23 (22-30) mmol/L Anion Gap 12 (10-20) BUN 23 H (9-20) mg/dL Creatinine 1.1 (0.8-1.5) mg/dL Est GFR ( Amer) > 60 Est GFR (Non-Af Amer) > 60 POC Glucose (mg/dL) (65-110) mg/dL Random Glucose 71 L (75-110) mg/dL Lactic Acid (0.7-2.1) mmol/L Uric Acid (3.5-8.5) mg/dL Calcium 8.3 L (8.6-10.4) mg/dl Phosphorus 2.9 (2.5-4.5) mg/dL Magnesium 1.2 L (1.6-2.3) mg/dL Total Bilirubin 0.5 (0.2-1.3) mg/dL AST 30 (17-59) U/L ALT 31 (21-72) U/L Alkaline Phosphatase 70 (38-126) U/L Total Creatine Kinase (55-170) U/L CK-MB (Mass) (0.0-3.38) ng/mL Troponin I (0.00-0.120) ng/mL Total Protein 5.7 L (6.3-8.3) g/dL Albumin 2.6 L D (3.5-5.0) g/dL Globulin 3.1 (2.2-3.9) gm/dL Albumin/Globulin Ratio 0.9 L (1.0-2.1) Procalcitonin (0.19-0.49) NG/ML Synovial WBC (0.0-150.0) /mm3 Synovial RBC (0.0-0.0) /mm3 Synovial Neutrophils (0-0) % Synovial Lymphocytes (0-0) % Synov Monos/Macrophage (0-0) % Synovial Fluid Comment Random Vancomycin 8.2 ug/mL IgG 863.1 (700.0-1600.0) mg/dL IgA 268.2 (70.0-400.0) mg/dL IgM 81.4 (40.0-230.0) mg/dL Complement C3 110.0 (88.0-165.0) mg/dL Complement C4 42.6 (14.0-44.0) mg/dL 02/23/18 02/23/18 02/22/18 Range/Units 06:20 05:54 23:32 WBC 10.0 (4.8-10.8) K/uL RBC 3.36 L (4.40-5.90) Mil/uL Hgb 8.6 L (12.0-18.0) g/dL Hct 26.6 L (35.0-51.0) % MCV 78.9 L (80.0-94.0) fL MCH 25.5 L (27.0-31.0) pg MCHC 32.3 L (33.0-37.0) g/dL RDW 20.3 H (11.5-14.5) % Plt Count 265 (130-400) K/uL MPV 8.2 (7.2-11.7) fL Neut % (Auto) 83.3 H (50.0-75.0) % Lymph % (Auto) 6.8 L (20.0-40.0) % Wirt % (Auto) 6.4 (0.0-10.0) % Eos % (Auto) 3.1 (0.0-4.0) % Baso % (Auto) 0.4 (0.0-2.0) % Neut # (Auto) 8.3 H (1.8-7.0) K/uL Lymph # (Auto) 0.7 L (1.0-4.3) K/uL Wirt # (Auto) 0.6 (0.0-0.8) K/uL Eos # (Auto) 0.3 (0.0-0.7) K/uL Baso # (Auto) 0.0 (0.0-0.2) K/uL Neutrophils % (Manual) 85 H (50-75) % Lymphocytes % (Manual) 6 L (20-40) % Monocytes % (Manual) 6 (0-10) % Eosinophils % (Manual) 3 (0-4) % Platelet Estimate Normal (NORMAL) Hypochromasia (manual) Slight Poikilocytosis (manual Slight Anisocytosis (manual) Slight Tear Drop Cells Slight Ovalocytes Slight Fraser Cells Slight Sodium (132-148) mmol/L Potassium (3.6-5.2) mmol/L Chloride (98-107) mmol/L Carbon Dioxide (22-30) mmol/L Anion Gap (10-20) BUN (9-20) mg/dL Creatinine (0.8-1.5) mg/dL Est GFR ( Amer) Est GFR (Non-Af Amer) POC Glucose (mg/dL) 77 (65-110) mg/dL Random Glucose (75-110) mg/dL Lactic Acid (0.7-2.1) mmol/L Uric Acid (3.5-8.5) mg/dL Calcium (8.6-10.4) mg/dl Phosphorus (2.5-4.5) mg/dL Magnesium (1.6-2.3) mg/dL Total Bilirubin (0.2-1.3) mg/dL AST (17-59) U/L ALT (21-72) U/L Alkaline Phosphatase (38-126) U/L Total Creatine Kinase 82 (55-170) U/L CK-MB (Mass) 0.95 (0.0-3.38) ng/mL Troponin I 0.0860 (0.00-0.120) ng/mL Total Protein (6.3-8.3) g/dL Albumin (3.5-5.0) g/dL Globulin (2.2-3.9) gm/dL Albumin/Globulin Ratio (1.0-2.1) Procalcitonin (0.19-0.49) NG/ML Synovial WBC (0.0-150.0) /mm3 Synovial RBC (0.0-0.0) /mm3 Synovial Neutrophils (0-0) % Synovial Lymphocytes (0-0) % Synov Monos/Macrophage (0-0) % Synovial Fluid Comment Random Vancomycin ug/mL IgG (700.0-1600.0) mg/dL IgA (70.0-400.0) mg/dL IgM (40.0-230.0) mg/dL Complement C3 (88.0-165.0) mg/dL Complement C4 (14.0-44.0) mg/dL 02/22/18 02/22/18 02/22/18 Range/Units 23:28 21:09 14:36 WBC (4.8-10.8) K/uL RBC (4.40-5.90) Mil/uL Hgb (12.0-18.0) g/dL Hct (35.0-51.0) % MCV (80.0-94.0) fL MCH (27.0-31.0) pg MCHC (33.0-37.0) g/dL RDW (11.5-14.5) % Plt Count (130-400) K/uL MPV (7.2-11.7) fL Neut % (Auto) (50.0-75.0) % Lymph % (Auto) (20.0-40.0) % Wirt % (Auto) (0.0-10.0) % Eos % (Auto) (0.0-4.0) % Baso % (Auto) (0.0-2.0) % Neut # (Auto) (1.8-7.0) K/uL Lymph # (Auto) (1.0-4.3) K/uL Wirt # (Auto) (0.0-0.8) K/uL Eos # (Auto) (0.0-0.7) K/uL Baso # (Auto) (0.0-0.2) K/uL Neutrophils % (Manual) (50-75) % Lymphocytes % (Manual) (20-40) % Monocytes % (Manual) (0-10) % Eosinophils % (Manual) (0-4) % Platelet Estimate (NORMAL) Hypochromasia (manual) Poikilocytosis (manual Anisocytosis (manual) Tear Drop Cells Ovalocytes David Cells Sodium (132-148) mmol/L Potassium (3.6-5.2) mmol/L Chloride (98-107) mmol/L Carbon Dioxide (22-30) mmol/L Anion Gap (10-20) BUN (9-20) mg/dL Creatinine (0.8-1.5) mg/dL Est GFR ( Amer) Est GFR (Non-Af Amer) POC Glucose (mg/dL) 145 H (65-110) mg/dL Random Glucose (75-110) mg/dL Lactic Acid (0.7-2.1) mmol/L Uric Acid (3.5-8.5) mg/dL Calcium (8.6-10.4) mg/dl Phosphorus (2.5-4.5) mg/dL Magnesium (1.6-2.3) mg/dL Total Bilirubin (0.2-1.3) mg/dL AST (17-59) U/L ALT (21-72) U/L Alkaline Phosphatase (38-126) U/L Total Creatine Kinase (55-170) U/L CK-MB (Mass) (0.0-3.38) ng/mL Troponin I (0.00-0.120) ng/mL Total Protein (6.3-8.3) g/dL Albumin (3.5-5.0) g/dL Globulin (2.2-3.9) gm/dL Albumin/Globulin Ratio (1.0-2.1) Procalcitonin 4.91 H (0.19-0.49) NG/ML Synovial WBC 72769.0 H (0.0-150.0) /mm3 Synovial RBC 67830.0 H (0.0-0.0) /mm3 Synovial Neutrophils 98.0 H (0-0) % Synovial Lymphocytes 1.0 H (0-0) % Synov Monos/Macrophage 1 H (0-0) % Synovial Fluid Comment Random Vancomycin ug/mL IgG (700.0-1600.0) mg/dL IgA (70.0-400.0) mg/dL IgM (40.0-230.0) mg/dL Complement C3 (88.0-165.0) mg/dL Complement C4 (14.0-44.0) mg/dL Laboratory Results - last 24 hr 02/22/18 02/22/18 02/22/18 14:36 21:09 23:28 WBC RBC Hgb Hct MCV MCH MCHC RDW Plt Count MPV Neut % (Auto) Lymph % (Auto) Wirt % (Auto) Eos % (Auto) Baso % (Auto) Neut # (Auto) Lymph # (Auto) Wirt # (Auto) Eos # (Auto) Baso # (Auto) Neutrophils % (Manual) Lymphocytes % (Manual) Monocytes % (Manual) Eosinophils % (Manual) Platelet Estimate Hypochromasia (manual) Poikilocytosis (manual Anisocytosis (manual) Tear Drop Cells Ovalocytes Fraser Cells Sodium Potassium Chloride Carbon Dioxide Anion Gap BUN Creatinine Est GFR ( Amer) Est GFR (Non-Af Amer) POC Glucose (mg/dL) 145 H Random Glucose Lactic Acid Uric Acid Calcium Phosphorus Magnesium Total Bilirubin AST ALT Alkaline Phosphatase Total Creatine Kinase CK-MB (Mass) Troponin I Total Protein Albumin Globulin Albumin/Globulin Ratio Procalcitonin 4.91 H Synovial WBC 56121.0 H Syn[place] RBC 44975.0 H Synovial Neutrophils 98.0 H Synovial Lymphocytes 1.0 H Synov Monos/Macrophage 1 H Synovial Fluid Comment Random Vancomycin IgG IgA IgM Complement C3 Complement C4 02/22/18 02/23/18 02/23/18 23:32 05:54 06:20 WBC 10.0 RBC 3.36 L Hgb 8.6 L Hct 26.6 L MCV 78.9 L MCH 25.5 L MCHC 32.3 L RDW 20.3 H Plt Count 265 MPV 8.2 Neut % (Auto) 83.3 H Lymph % (Auto) 6.8 L Wirt % (Auto) 6.4 Eos % (Auto) 3.1 Baso % (Auto) 0.4 Neut # (Auto) 8.3 H Lymph # (Auto) 0.7 L Wirt # (Auto) 0.6 Eos # (Auto) 0.3 Baso # (Auto) 0.0 Neutrophils % (Manual) 85 H Lymphocytes % (Manual) 6 L Monocytes % (Manual) 6 Eosinophils % (Manual) 3 Platelet Estimate Normal Hypochromasia (manual) Slight Poikilocytosis (manual Slight Anisocytosis (manual) Slight Tear Drop Cells Slight Ovalocytes Slight David Cells Slight Sodium Potassium Chloride Carbon Dioxide Anion Gap BUN Creatinine Est GFR ( Amer) Est GFR (Non-Af Amer) POC Glucose (mg/dL) 77 Random Glucose Lactic Acid Uric Acid Calcium Phosphorus Magnesium Total Bilirubin AST ALT Alkaline Phosphatase Total Creatine Kinase 82 CK-MB (Mass) 0.95 Troponin I 0.0860 Total Protein Albumin Globulin Albumin/Globulin Ratio Procalcitonin Synovial WBC Synovial RBC Synovial Neutrophils Synovial Lymphocytes Synov Monos/Macrophage Synovial Fluid Comment Random Vancomycin IgG IgA IgM Complement C3 Complement C4 02/23/18 02/23/18 02/23/18 06:20 06:20 06:20 WBC RBC Hgb Hct MCV MCH MCHC RDW Plt Count MPV Neut % (Auto) Lymph % (Auto) Wirt % (Auto) Eos % (Auto) Baso % (Auto) Neut # (Auto) Lymph # (Auto) Wirt # (Auto) Eos # (Auto) Baso # (Auto) Neutrophils % (Manual) Lymphocytes % (Manual) Monocytes % (Manual) Eosinophils % (Manual) Platelet Estimate Hypochromasia (manual) Poikilocytosis (manual Anisocytosis (manual) Tear Drop Cells Ovalocytes Fraser Cells Sodium 132 Potassium 3.7 Chloride 100 Carbon Dioxide 23 Anion Gap 12 BUN 23 H Creatinine 1.1 Est GFR ( Amer) > 60 Est GFR (Non-Af Amer) > 60 POC Glucose (mg/dL) Random Glucose 71 L Lactic Acid Uric Acid Calcium 8.3 L Phosphorus 2.9 Magnesium 1.2 L Total Bilirubin 0.5 AST 30 ALT 31 Alkaline Phosphatase 70 Total Creatine Kinase CK-MB (Mass) Troponin I Total Protein 5.7 L Albumin 2.6 L D Globulin 3.1 Albumin/Globulin Ratio 0.9 L Procalcitonin Synovial WBC Synovial RBC Synovial Neutrophils Synovial Lymphocytes Synov Monos/Macrophage Synovial Fluid Comment Random Vancomycin 8.2 IgG 863.1 IgA 268.2 IgM 81.4 Complement C3 110.0 Complement C4 42.6 02/23/18 02/23/18 02/23/18 06:20 11:37 12:50 WBC RBC Hgb Hct MCV MCH MCHC RDW Plt Count MPV Neut % (Auto) Lymph % (Auto) Wirt % (Auto) Eos % (Auto) Baso % (Auto) Neut # (Auto) Lymph # (Auto) Wirt # (Auto) Eos # (Auto) Baso # (Auto) Neutrophils % (Manual) Lymphocytes % (Manual) Monocytes % (Manual) Eosinophils % (Manual) Platelet Estimate Hypochromasia (manual) Poikilocytosis (manual Anisocytosis (manual) Tear Drop Cells Ovalocytes David Cells Sodium Potassium Chloride Carbon Dioxide Anion Gap BUN Creatinine Est GFR ( Amer) Est GFR (Non-Af Amer) POC Glucose (mg/dL) 118 H Random Glucose Lactic Acid 1.6 Uric Acid 3.2 L Calcium Phosphorus Magnesium Total Bilirubin AST ALT Alkaline Phosphatase Total Creatine Kinase < 20 L CK-MB (Mass) 1.01 Troponin I 0.0850 Total Protein Albumin Globulin Albumin/Globulin Ratio Procalcitonin Synovial WBC Synovial RBC Synovial Neutrophils Synovial Lymphocytes Synov Monos/Macrophage Synovial Fluid Comment Random Vancomycin IgG IgA IgM Complement C3 Complement C4 EKG/Cardiology Studies: Cardiology / EKG Studies 02/22/18 22:50 EKG [ELECTROCARDIOGRAM] Q8H Comment: Mode Of Transportation: Reason For Exam: elevated troponin 02/23/18 06:50 EKG [ELECTROCARDIOGRAM] Q8H Comment: Mode Of Transportation: Reason For Exam: elevated troponin Critical Care Progress Note - Nutrition Nutrition: Nutrition Category Date Time Status Heart Healthy Diet [DIET] Diets 02/23/18 Breakfast Active Assessment/Plan - Assessment and Plan (Free Text) Plan: Patient seen and examined at bedside. Patient with h/o gouth arthropathy admitted to [facility] for left knee arthrocentesis and develops hypotension post procedure. Patient admitted to ICU for observation. Patient remains hemodynamically stable. Tolerating gentle hydration. PAtient does not require pressors, does not have high fevers, WBC decreasing. Above resident documents my clinical finding and management. -cold compresses for swollen left knee -Patient remains hemodynamically stable. -At risk of CAD, will restart dual antiplatelet ad eliquis once no procedure anticipated. d/w ICU team, nursing, resident and patient. -ALL questions answered. - Date & Time Date: 02/23/18 Time: 15:56
--- NOTE | 2018-02-23 13:13 | CT ---
CT left knee History: Effusion. Comparison: CT dated 02/02/2018 Technique: Multiple contiguous axial images were performed through the left knee without the use of intravenous contrast. Subsequently, sagittal and coronal reformatted images were obtained. Findings: Persistent large multiloculated knee joint effusion with associated synovial debris and hypertrophy. Lateral subluxation of the patella. Prominent narrowing of the patellofemoral joint space laterally with subchondral sclerosis and osteophytosis. Moderate medial compartment joint space narrowing of the femorotibial joint space with subchondral sclerosis. Mild to moderate lateral compartment joint space narrowing of femorotibial joint space with subchondral sclerosis and or osteochondral change at the lateral proximal tibial plateau. Extensive vascular calcifications. Moderate posterior Landaverde's cyst. Impression: Persistent large multiloculated knee joint effusion with associated synovial debris and hypertrophy. Lateral subluxation of the patella. Prominent narrowing of the patellofemoral joint space laterally with subchondral sclerosis and osteophytosis. Moderate medial compartment joint space narrowing of the femorotibial joint space with subchondral sclerosis. Mild to moderate lateral compartment joint space narrowing of femorotibial joint space with subchondral sclerosis and or osteochondral change at the lateral proximal tibial plateau. Extensive vascular calcifications. Moderate posterior Landaverde's cyst. If there is concern for septic arthritis, correlation with MRI and or joint aspiration with culture sampling is recommended.
[2018-02-23] MEDS: Febuxostat [Uloric] 80 MG PO SCH (13:24)
[2018-02-23 14:25] LABS: URIC ACID 3.2 mg/dL (3.5-8.5)
--- NOTE | 2018-02-23 17:05 | CP.PCM.PN ---
Subjective - Date & Time of Evaluation Date of Evaluation: 02/23/18 Time of Evaluation: 09:00 - Subjective Subjective: cultures neg thus far arthrocentesis + for uric acid crystals and cultures negative Objective - Vital Signs/Intake and Output Vital Signs (last 24 hours): Temp Pulse Resp BP Pulse Ox 99.1 F 86 35 H 122/53 L 99 02/23/18 16:00 02/23/18 16:01 02/23/18 16:01 02/23/18 16:01 02/23/18 16:01 Intake and Output: 02/23/18 02/23/18 06:59 18:59 Intake Total 1010 1390 Output Total 1200 600 Balance -190 790 - Medications Medications: Current Medications Albuterol (Ventolin Hfa 90 Mcg/Actuation (8 G)) 1 puff IH RQD [facility] Last Admin: 02/23/18 08:37 Dose: 1 puff Calcium/Vitamin D (Oyster Shell Calcium/Vitamin D 500 Mg-200 Iu) 1 tab PO DAILY [facility] Last Admin: 02/23/18 09:18 Dose: 1 tab Clonazepam (Klonopin) 1 mg PO DAILY [facility] Last Admin: 02/23/18 09:18 Dose: 1 mg Dextrose (Dextrose 50% Inj) 0 ml IV STAT PRN; Protocol PRN Reason: Hypoglycemia Protocol Dextrose (Glutose 15) 0 gm PO ONCE PRN; Protocol PRN Reason: Hypoglycemia Protocol Diltiazem HCl (Cardizem Cd) 240 mg PO DAILY [facility] Last Admin: 02/23/18 09:17 Dose: 240 mg Ergocalciferol (Drisdol 50,000 Intl Units Cap) 1 cap PO QWK [facility] Folic Acid (Folic Acid) 1 mg PO DAILY [facility] Last Admin: 02/23/18 09:17 Dose: 1 mg Glucagon (Glucagen Diagnostic Kit) 0 mg IM STAT PRN; Protocol PRN Reason: Hypoglycemia Protocol Home Med (Patient's Own Medication) 1 tab PO DAILY [facility] Last Admin: 02/23/18 13:24 Dose: 1 tab Piperacillin Sod/Tazobactam Sod (Zosyn 2.25 Gm Iv Premix) 2.25 gm in 50 mls @ 100 mls/hr IVPB Q8H [facility] PRN Reason: Protocol Last Admin: 02/23/18 09:19 Dose: 100 mls/hr Sodium Chloride (Sodium Chloride 0.9%) 1,000 mls @ 80 mls/hr IV .[id number] [facility] Last Admin: 02/23/18 09:22 Dose: 80 mls/hr Dextrose (Dextrose 5% In Water 1000 Ml) 1,000 mls @ 0 mls/hr IV .Q0M PRN; Protocol; Per Protocol PRN Reason: Hypoglycemia Protocol Insulin Aspart (Novolog) 0 unit SC Q6H [facility] PRN Reason: Protocol Last Admin: 02/23/18 11:50 Dose: Not Given Levothyroxine Sodium (Synthroid) 175 mcg PO DAILY@0630 [facility] Last Admin: 02/23/18 05:45 Dose: 175 mcg Magnesium Oxide (Mag-Ox) 400 mg PO TID [facility] Last Admin: 02/23/18 13:23 Dose: 400 mg Montelukast Sodium (Singulair) 10 mg PO DAILY [facility] Last Admin: 02/23/18 09:19 Dose: 10 mg Pantoprazole Sodium (Protonix Ec Tab) 40 mg PO DAILY [facility] Last Admin: 02/23/18 09:19 Dose: 40 mg Potassium Phos/Sodium Phos (Neutra-Phos) 1 pkt PO BID [facility] Last Admin: 02/23/18 09:18 Dose: 1 pkt Prednisone (Prednisone Tab) 5 mg PO DAILY [facility] Last Admin: 02/23/18 09:18 Dose: 5 mg Rosuvastatin Calcium (Crestor) 5 mg PO HS [facility] Last Admin: 02/22/18 22:10 Dose: 5 mg Sodium Bicarbonate (Sodium Bicarbonate Tab) 650 mg PO TID [facility] Last Admin: 02/23/18 13:24 Dose: 650 mg Tacrolimus (Prograf Cap) 3 mg PO Q12 [facility] Last Admin: 02/23/18 09:18 Dose: 3 mg Tramadol HCl (Ultram) 50 mg PO TID PRN PRN Reason: Pain, Mild (1-3) Last Admin: 02/23/18 07:57 Dose: 50 mg - Labs Labs: 02/23/18 06:20 02/23/18 06:20 PT 19.0 SECONDS (9.7-12.2) H 02/22/18 12:32 INR 1.7 02/22/18 12:32 APTT 34 SECONDS (21-34) 02/22/18 12:32 Assessment and Plan (1) Septic arthritis Status: Deleted (2) Bronchiectasis with acute exacerbation Status: Acute (3) COPD bronchitis Status: Acute (4) Cardiomyopathy Status: Acute (5) Chest pain Status: Acute (6) Chronic atrial fibrillation Status: Acute (7) Chronic kidney disease, stage III (moderate) Status: Acute (8) DM type 2 (diabetes mellitus, type 2) Status: Acute (9) Gout Status: Acute
--- NOTE | 2018-02-23 17:20 | CP.PCM.PN ---
Subjective - Date & Time of Evaluation Date of Evaluation: 02/23/18 Time of Evaluation: 17:18 - Subjective Subjective: Patient complaining of left knee pain. Afebrile. less lethargic with better foods intake. Left joint aspirate revealed crystals, but no bacterial growth. Objective - Vital Signs/Intake and Output Vital Signs (last 24 hours): Temp Pulse Resp BP Pulse Ox 99.1 F 93 H 26 H 121/45 L 98 02/23/18 16:00 02/23/18 17:00 02/23/18 17:00 02/23/18 17:00 02/23/18 17:00 Intake and Output: 02/23/18 02/23/18 06:59 18:59 Intake Total 1010 1620 Output Total 1200 700 Balance -190 920 - Medications Medications: Current Medications Albuterol (Ventolin Hfa 90 Mcg/Actuation (8 G)) 1 puff IH RQD [facility] Last Admin: 02/23/18 08:37 Dose: 1 puff Calcium/Vitamin D (Oyster Shell Calcium/Vitamin D 500 Mg-200 Iu) 1 tab PO DAILY [facility] Last Admin: 02/23/18 09:18 Dose: 1 tab Clonazepam (Klonopin) 1 mg PO DAILY [facility] Last Admin: 02/23/18 09:18 Dose: 1 mg Dextrose (Dextrose 50% Inj) 0 ml IV STAT PRN; Protocol PRN Reason: Hypoglycemia Protocol Dextrose (Glutose 15) 0 gm PO ONCE PRN; Protocol PRN Reason: Hypoglycemia Protocol Diltiazem HCl (Cardizem Cd) 240 mg PO DAILY [facility] Last Admin: 02/23/18 09:17 Dose: 240 mg Ergocalciferol (Drisdol 50,000 Intl Units Cap) 1 cap PO QWK [facility] Folic Acid (Folic Acid) 1 mg PO DAILY [facility] Last Admin: 02/23/18 09:17 Dose: 1 mg Glucagon (Glucagen Diagnostic Kit) 0 mg IM STAT PRN; Protocol PRN Reason: Hypoglycemia Protocol Home Med (Patient's Own Medication) 1 tab PO DAILY [facility] Last Admin: 02/23/18 13:24 Dose: 1 tab Piperacillin Sod/Tazobactam Sod (Zosyn 2.25 Gm Iv Premix) 2.25 gm in 50 mls @ 100 mls/hr IVPB Q8H [facility] PRN Reason: Protocol Last Admin: 02/23/18 17:05 Dose: 100 mls/hr Sodium Chloride (Sodium Chloride 0.9%) 1,000 mls @ 80 mls/hr IV .[id number] [facility] Last Admin: 02/23/18 09:22 Dose: 80 mls/hr Dextrose (Dextrose 5% In Water 1000 Ml) 1,000 mls @ 0 mls/hr IV .Q0M PRN; Protocol; Per Protocol PRN Reason: Hypoglycemia Protocol Insulin Aspart (Novolog) 0 unit SC Q6H [facility] PRN Reason: Protocol Last Admin: 02/23/18 11:50 Dose: Not Given Levothyroxine Sodium (Synthroid) 175 mcg PO DAILY@0630 [facility] Last Admin: 02/23/18 05:45 Dose: 175 mcg Magnesium Oxide (Mag-Ox) 400 mg PO TID [facility] Last Admin: 02/23/18 17:05 Dose: 400 mg Montelukast Sodium (Singulair) 10 mg PO DAILY [facility] Last Admin: 02/23/18 09:19 Dose: 10 mg Pantoprazole Sodium (Protonix Ec Tab) 40 mg PO DAILY [facility] Last Admin: 02/23/18 09:19 Dose: 40 mg Potassium Phos/Sodium Phos (Neutra-Phos) 1 pkt PO BID [facility] Last Admin: 02/23/18 17:05 Dose: 1 pkt Prednisone (Prednisone Tab) 5 mg PO DAILY [facility] Last Admin: 02/23/18 09:18 Dose: 5 mg Rosuvastatin Calcium (Crestor) 5 mg PO HS [facility] Last Admin: 02/22/18 22:10 Dose: 5 mg Sodium Bicarbonate (Sodium Bicarbonate Tab) 650 mg PO TID [facility] Last Admin: 02/23/18 17:05 Dose: 650 mg Tacrolimus (Prograf Cap) 3 mg PO Q12 [facility] Last Admin: 02/23/18 09:18 Dose: 3 mg Tramadol HCl (Ultram) 50 mg PO TID PRN PRN Reason: Pain, Mild (1-3) Last Admin: 02/23/18 07:57 Dose: 50 mg - Labs Labs: 02/23/18 06:20 02/23/18 06:20 PT 19.0 SECONDS (9.7-12.2) H 02/22/18 12:32 INR 1.7 02/22/18 12:32 APTT 34 SECONDS (21-34) 02/22/18 12:32 - Constitutional Appears: No Acute Distress, Cachectic, Chronically Ill - Head Exam Head Exam: NORMAL INSPECTION - Eye Exam Eye Exam: Normal appearance - ENT Exam ENT Exam: Normal Exam - Neck Exam Neck Exam: Normal Inspection - Respiratory Exam Respiratory Exam: Clear to Ausculation Bilateral, NORMAL BREATHING PATTERN - Cardiovascular Exam Cardiovascular Exam: Irregular Rhythm, Murmur - GI/Abdominal Exam GI & Abdominal Exam: Soft, Normal Bowel Sounds - Rectal Exam Rectal Exam: Deferred - Exam Exam: NORMAL INSPECTION - Extremities Exam Extremities Exam: Joint Swelling, Tenderness Additional comments: Left knee swollen and tender. - Back Exam Back Exam: NORMAL INSPECTION - Neurological Exam Neurological Exam: Alert, Awake, Oriented x3 - Psychiatric Exam Psychiatric exam: Anxious - Skin Skin Exam: Dry, Intact, Normal Color, Warm Assessment and Plan (1) Septic arthritis of knee, left Assessment & Plan: Sofar left knee aspirate culture shows no bacterial growth. Status: Acute (2) Severe sepsis Assessment & Plan: To continue IV antibiotic as per Dr Nash, pending blood cultures and wound culture. Status: Acute (3) History of renal transplant Status: Chronic (4) Hypotension Assessment & Plan: Corrected with IVF and IV antibiotics. Status: Resolved
[2018-02-23] MEDS: Oxycodone/Acetaminophen 5/325 mg Tab PO PRN ×2 (17:42→22:05)
[2018-02-24] MEDS: Piperacill/Tazo 2.25gm in Dex 2.25 GM/50 ML BAG IVPB SCH ×3 (02:30→18:20)
[2018-02-24] MEDS: Levothyroxine 175 MCG TAB PO SCH (05:40)
[2018-02-24 06:22] LABS: BASO % 0.2 % (0.0-2.0); EOS # 0.3 K/uL (0.0-0.7); EOS % 4.5 % (0.0-4.0); HEMOGLOBIN 8.4 g/dL (12.0-18.0); LYMPH # 0.5 K/uL (1.0-4.3); LYMPH % 6.7 % (20.0-40.0); MEAN CELL VOLUME 79.8 fL (80.0-94.0); MEAN CORPUSCULAR HEMOGLOBIN 25.1 pg (27.0-31.0); MEAN CORPUSCULAR HGB CONC 31.5 g/dL (33.0-37.0); MEAN PLATELET VOLUME 7.9 fL (7.2-11.7); MONO # 0.6 K/uL (0.0-0.8); MONO % 7.3 % (0.0-10.0); NEUT # 6.2 K/uL (1.8-7.0); NEUT % 81.3 % (50.0-75.0); NRBC % 0.1 % (0.0-2.0); PLATELET COUNT 251 K/uL (130-400); RBC 3.33 Mil/uL (4.40-5.90); RED CELL DISTRIBUTION WIDTH 19.7 % (11.5-14.5); WHITE BLOOD COUNT 7.6 K/uL (4.8-10.8)
[2018-02-24 06:42] LABS: ALB/GLOB RATIO 0.9 (1.0-2.1); ALBUMIN 2.7 g/dL (3.5-5.0); ALT/SGPT 26 U/L (21-72); AST/SGOT 32 U/L (17-59); BLOOD UREA NITROGEN 16 mg/dL (9-20); GFR NON-AFRICAN AMERICAN > 60
[2018-02-24] MEDS: (Novolog) Insulin Aspart, Recombinant 100 u/ml 10 ml vial SC SCH ×4 (08:18→21:38)
[2018-02-24 08:22] LABS: ANISOCYTOSIS SLIGHT; BANDS 1 % (0-2); EOSINOPHIL 4 % (0-4); HYPOCHROMIC MODERATE; LYMPHOCYTE 5 % (20-40); MICROCYTOSIS SLIGHT; MONOCYTE 6 % (0-10); NEUTROPHIL 84 % (50-75); PLATELET ESTIMATE NORMAL (NORMAL); POIKILOCYTOSIS SLIGHT; TOTAL CELLS COUNTED 100
[2018-02-24 08:23] LABS: BURR CELLS SLIGHT; OVALOCYTES SLIGHT; TARGET CELLS SLIGHT; TEARDROP CELLS SLIGHT
[2018-02-24] MEDS: Febuxostat [Uloric] 80 MG PO SCH (09:27)
[2018-02-24] MEDS: Oxycodone/Acetaminophen 5/325 mg Tab PO PRN ×2 (09:29→19:05)
[2018-02-24] MEDS: Potassium & Sodium Phosphate PO SCH ×2 (09:29→18:11)
[2018-02-24] MEDS: Magnesium Oxide 400 mg Tab UD PO SCH ×3 (09:29→18:10)
[2018-02-24] MEDS: diltiaZEM 240 mg/24 Hours CD Cap PO SCH (09:29)
[2018-02-24] MEDS: Pantoprazole 40 mg EC Tab PO SCH (09:29)
[2018-02-24] MEDS: Calcium-Vit D 500 mg-200 Units Tab UD PO SCH (09:59)
--- NOTE | 2018-02-24 10:35 | CP.PCM.PN ---
Subjective - Date & Time of Evaluation Date of Evaluation: 02/24/18 Time of Evaluation: 10:33 - Subjective Subjective: Patient states his knee feels the same. He says if it gets drained it will feel better. Objective - Vital Signs/Intake and Output Vital Signs (last 24 hours): Temp Pulse Resp BP Pulse Ox 97.7 F 49 L 20 129/50 L 100 02/24/18 07:35 02/24/18 07:35 02/24/18 07:35 02/24/18 07:35 02/24/18 07:35 Intake and Output: 02/24/18 02/24/18 06:59 18:59 Intake Total 1210 Output Total 900 Balance 310 - Medications Medications: Current Medications Albuterol (Ventolin Hfa 90 Mcg/Actuation (8 G)) 1 puff IH RQD [facility] Last Admin: 02/23/18 08:37 Dose: 1 puff Calcium/Vitamin D (Oyster Shell Calcium/Vitamin D 500 Mg-200 Iu) 1 tab PO DAILY [facility] Last Admin: 02/24/18 09:59 Dose: 1 tab Clonazepam (Klonopin) 1 mg PO DAILY [facility] Last Admin: 02/24/18 09:29 Dose: 1 mg Dextrose (Dextrose 50% Inj) 0 ml IV STAT PRN; Protocol PRN Reason: Hypoglycemia Protocol Dextrose (Glutose 15) 0 gm PO ONCE PRN; Protocol PRN Reason: Hypoglycemia Protocol Diltiazem HCl (Cardizem Cd) 240 mg PO DAILY [facility] Last Admin: 02/24/18 09:29 Dose: 240 mg Ergocalciferol (Drisdol 50,000 Intl Units Cap) 1 cap PO QWK [facility] Folic Acid (Folic Acid) 1 mg PO DAILY [facility] Last Admin: 02/24/18 09:29 Dose: 1 mg Glucagon (Glucagen Diagnostic Kit) 0 mg IM STAT PRN; Protocol PRN Reason: Hypoglycemia Protocol Home Med (Patient's Own Medication) 1 tab PO DAILY [facility] Last Admin: 02/24/18 09:27 Dose: 1 tab Piperacillin Sod/Tazobactam Sod (Zosyn 2.25 Gm Iv Premix) 2.25 gm in 50 mls @ 100 mls/hr IVPB Q8H [facility] PRN Reason: Protocol Last Admin: 02/24/18 09:59 Dose: 100 mls/hr Sodium Chloride (Sodium Chloride 0.9%) 1,000 mls @ 80 mls/hr IV .[id number] [facility] Last Admin: 02/23/18 22:05 Dose: 80 mls/hr Dextrose (Dextrose 5% In Water 1000 Ml) 1,000 mls @ 0 mls/hr IV .Q0M PRN; Protocol; Per Protocol PRN Reason: Hypoglycemia Protocol Insulin Aspart (Novolog) 0 unit SC ACHS [facility] PRN Reason: Protocol Last Admin: 02/24/18 08:18 Dose: Not Given Levothyroxine Sodium (Synthroid) 175 mcg PO DAILY@0630 [facility] Last Admin: 02/24/18 05:40 Dose: 175 mcg Magnesium Oxide (Mag-Ox) 400 mg PO TID [facility] Last Admin: 02/24/18 09:29 Dose: 400 mg Montelukast Sodium (Singulair) 10 mg PO DAILY [facility] Last Admin: 02/23/18 09:19 Dose: 10 mg Oxycodone/Acetaminophen (Percocet 5/325 Mg Tab) 1 tab PO Q4H PRN PRN Reason: Pain, moderate (4-7) Stop: 02/26/18 17:26 Last Admin: 02/24/18 09:29 Dose: 1 tab Pantoprazole Sodium (Protonix Ec Tab) 40 mg PO DAILY [facility] Last Admin: 02/24/18 09:29 Dose: 40 mg Potassium Phos/Sodium Phos (Neutra-Phos) 1 pkt PO BID [facility] Last Admin: 02/24/18 09:29 Dose: 1 pkt Prednisone (Prednisone Tab) 5 mg PO DAILY [facility] Last Admin: 02/24/18 09:29 Dose: 5 mg Rosuvastatin Calcium (Crestor) 5 mg PO HS [facility] Last Admin: 02/23/18 22:05 Dose: 5 mg Sodium Bicarbonate (Sodium Bicarbonate Tab) 650 mg PO TID [facility] Last Admin: 02/24/18 09:35 Dose: Not Given Tacrolimus (Prograf Cap) 3 mg PO Q12 [facility] Last Admin: 02/24/18 09:59 Dose: 3 mg - Labs Labs: 02/24/18 06:14 02/24/18 06:14 PT 19.0 SECONDS (9.7-12.2) H 02/22/18 12:32 INR 1.7 02/22/18 12:32 APTT 34 SECONDS (21-34) 02/22/18 12:32 - Extremities Exam Additional comments: left knee: moderate effusion, not warm today. Clinically better than yesterday. Patient still reluctant to move knee. calves soft NT neg homans +ROM ankle/ toes sensation intact +DP/PT pulses Assessment and Plan (1) Acute gout of left knee Assessment & Plan: f/u culutres, neg x 24 hrs clinically appears better than yesterday PT/OT continue conservative tx of gout a this time and monitor d/w Dr. Tovar, agrees with above Status: Acute
[2018-02-24] MEDS: Sodium Chloride 0.9% 1,000 ML IV SCH ×2 (13:22→13:55)
--- NOTE | 2018-02-24 17:33 | CP.PCM.PN ---
Subjective - Date & Time of Evaluation Date of Evaluation: 02/24/18 Time of Evaluation: 08:00 - Subjective Subjective: improving all cultures negative afebrile Objective - Vital Signs/Intake and Output Vital Signs (last 24 hours): Temp Pulse Resp BP Pulse Ox 97.7 F 89 20 111/64 100 02/24/18 07:35 02/24/18 13:55 02/24/18 07:35 02/24/18 13:55 02/24/18 07:35 Intake and Output: 02/24/18 02/24/18 06:59 18:59 Intake Total 1210 1040 Output Total 900 500 Balance 310 540 - Medications Medications: Current Medications Albuterol (Ventolin Hfa 90 Mcg/Actuation (8 G)) 1 puff IH RQD [facility] Last Admin: 02/23/18 08:37 Dose: 1 puff Calcium/Vitamin D (Oyster Shell Calcium/Vitamin D 500 Mg-200 Iu) 1 tab PO DAILY [facility] Last Admin: 02/24/18 09:59 Dose: 1 tab Clonazepam (Klonopin) 1 mg PO DAILY [facility] Last Admin: 02/24/18 09:29 Dose: 1 mg Dextrose (Dextrose 50% Inj) 0 ml IV STAT PRN; Protocol PRN Reason: Hypoglycemia Protocol Dextrose (Glutose 15) 0 gm PO ONCE PRN; Protocol PRN Reason: Hypoglycemia Protocol Diltiazem HCl (Cardizem Cd) 240 mg PO DAILY [facility] Last Admin: 02/24/18 09:29 Dose: 240 mg Ergocalciferol (Drisdol 50,000 Intl Units Cap) 1 cap PO QWK [facility] Folic Acid (Folic Acid) 1 mg PO DAILY [facility] Last Admin: 02/24/18 09:29 Dose: 1 mg Glucagon (Glucagen Diagnostic Kit) 0 mg IM STAT PRN; Protocol PRN Reason: Hypoglycemia Protocol Home Med (Patient's Own Medication) 1 tab PO DAILY [facility] Last Admin: 02/24/18 09:27 Dose: 1 tab Piperacillin Sod/Tazobactam Sod (Zosyn 2.25 Gm Iv Premix) 2.25 gm in 50 mls @ 100 mls/hr IVPB Q8H [facility] PRN Reason: Protocol Last Admin: 02/24/18 09:59 Dose: 100 mls/hr Sodium Chloride (Sodium Chloride 0.9%) 1,000 mls @ 80 mls/hr IV .[id number] [facility] Last Admin: 02/24/18 13:55 Dose: Not Given Dextrose (Dextrose 5% In Water 1000 Ml) 1,000 mls @ 0 mls/hr IV .Q0M PRN; Protocol; Per Protocol PRN Reason: Hypoglycemia Protocol Insulin Aspart (Novolog) 0 unit SC ACHS [facility] PRN Reason: Protocol Last Admin: 02/24/18 12:15 Dose: Not Given Levothyroxine Sodium (Synthroid) 175 mcg PO DAILY@0630 [facility] Last Admin: 02/24/18 05:40 Dose: 175 mcg Magnesium Oxide (Mag-Ox) 400 mg PO TID [facility] Last Admin: 02/24/18 13:44 Dose: 400 mg Montelukast Sodium (Singulair) 10 mg PO DAILY [facility] Last Admin: 02/24/18 09:25 Dose: 10 mg Oxycodone/Acetaminophen (Percocet 5/325 Mg Tab) 1 tab PO Q4H PRN PRN Reason: Pain, moderate (4-7) Stop: 02/26/18 17:26 Last Admin: 02/24/18 09:29 Dose: 1 tab Pantoprazole Sodium (Protonix Ec Tab) 40 mg PO DAILY [facility] Last Admin: 02/24/18 09:29 Dose: 40 mg Potassium Phos/Sodium Phos (Neutra-Phos) 1 pkt PO BID [facility] Last Admin: 02/24/18 09:29 Dose: 1 pkt Prednisone (Prednisone Tab) 5 mg PO DAILY [facility] Last Admin: 02/24/18 09:29 Dose: 5 mg Rosuvastatin Calcium (Crestor) 5 mg PO HS [facility] Last Admin: 02/23/18 22:05 Dose: 5 mg Sodium Bicarbonate (Sodium Bicarbonate Tab) 650 mg PO TID [facility] Last Admin: 02/24/18 13:44 Dose: 650 mg Tacrolimus (Prograf Cap) 3 mg PO Q12 [facility] Last Admin: 02/24/18 09:59 Dose: 3 mg - Labs Labs: 02/24/18 06:14 02/24/18 06:14 PT 19.0 SECONDS (9.7-12.2) H 02/22/18 12:32 INR 1.7 02/22/18 12:32 APTT 34 SECONDS (21-34) 02/22/18 12:32 - Constitutional Appears: Non-toxic, Chronically Ill - Head Exam Head Exam: NORMOCEPHALIC - Eye Exam Eye Exam: PERRL - ENT Exam ENT Exam: Mucous Membranes Dry - Neck Exam Neck Exam: absent: Lymphadenopathy - Respiratory Exam Respiratory Exam: Decreased Breath Sounds - Cardiovascular Exam Cardiovascular Exam: REGULAR RHYTHM - GI/Abdominal Exam GI & Abdominal Exam: Distended - Rectal Exam Rectal Exam: Deferred - Exam Exam: NORMAL INSPECTION - Extremities Exam Extremities Exam: absent: Pedal Edema - Back Exam Back Exam: absent: CVA tenderness (L), CVA tenderness (R) - Neurological Exam Neurological Exam: Alert, Awake, CN II-XII Intact - Psychiatric Exam Psychiatric exam: Normal Mood - Skin Skin Exam: Dry Assessment and Plan (1) Bronchiectasis with acute exacerbation Status: Acute (2) COPD bronchitis Status: Acute (3) Cardiomyopathy Status: Acute (4) Chest pain Status: Acute (5) Chronic atrial fibrillation Status: Acute (6) Chronic kidney disease, stage III (moderate) Status: Acute (7) DM type 2 (diabetes mellitus, type 2) Status: Acute (8) Gout Status: Acute
--- NOTE | 2018-02-24 19:23 | CP.PCM.PN ---
Subjective - Date & Time of Evaluation Date of Evaluation: 02/24/18 Time of Evaluation: 19:21 - Subjective Subjective: Patient still with pain an swelling of the left knee. Afebrile. On IV Zosyn. Sofar, all cultures are negative. But the patient feels better with better appetite. Will ask Dr Avery to evaluate the patient for the left knee pain. Will also discontinue IVF. Objective - Vital Signs/Intake and Output Vital Signs (last 24 hours): Temp Pulse Resp BP Pulse Ox 97.7 F 89 20 111/64 100 02/24/18 07:35 02/24/18 13:55 02/24/18 07:35 02/24/18 13:55 02/24/18 07:35 Intake and Output: 02/24/18 02/25/18 18:59 06:59 Intake Total 1040 Output Total 500 Balance 540 - Medications Medications: Current Medications Albuterol (Ventolin Hfa 90 Mcg/Actuation (8 G)) 1 puff IH RQD [facility] Last Admin: 02/23/18 08:37 Dose: 1 puff Calcium/Vitamin D (Oyster Shell Calcium/Vitamin D 500 Mg-200 Iu) 1 tab PO DAILY [facility] Last Admin: 02/24/18 09:59 Dose: 1 tab Clonazepam (Klonopin) 1 mg PO DAILY [facility] Last Admin: 02/24/18 09:29 Dose: 1 mg Dextrose (Dextrose 50% Inj) 0 ml IV STAT PRN; Protocol PRN Reason: Hypoglycemia Protocol Dextrose (Glutose 15) 0 gm PO ONCE PRN; Protocol PRN Reason: Hypoglycemia Protocol Diltiazem HCl (Cardizem Cd) 240 mg PO DAILY [facility] Last Admin: 02/24/18 09:29 Dose: 240 mg Ergocalciferol (Drisdol 50,000 Intl Units Cap) 1 cap PO QWK [facility] Folic Acid (Folic Acid) 1 mg PO DAILY [facility] Last Admin: 02/24/18 09:29 Dose: 1 mg Glucagon (Glucagen Diagnostic Kit) 0 mg IM STAT PRN; Protocol PRN Reason: Hypoglycemia Protocol Home Med (Patient's Own Medication) 1 tab PO DAILY [facility] Last Admin: 02/24/18 09:27 Dose: 1 tab Piperacillin Sod/Tazobactam Sod (Zosyn 2.25 Gm Iv Premix) 2.25 gm in 50 mls @ 100 mls/hr IVPB Q8H [facility] PRN Reason: Protocol Last Admin: 02/24/18 18:20 Dose: 100 mls/hr Dextrose (Dextrose 5% In Water 1000 Ml) 1,000 mls @ 0 mls/hr IV .Q0M PRN; Protocol; Per Protocol PRN Reason: Hypoglycemia Protocol Insulin Aspart (Novolog) 0 unit SC ACHS [facility] PRN Reason: Protocol Last Admin: 02/24/18 18:12 Dose: 3 u Levothyroxine Sodium (Synthroid) 175 mcg PO DAILY@0630 [facility] Last Admin: 02/24/18 05:40 Dose: 175 mcg Magnesium Oxide (Mag-Ox) 400 mg PO TID [facility] Last Admin: 02/24/18 18:10 Dose: 400 mg Montelukast Sodium (Singulair) 10 mg PO DAILY [facility] Last Admin: 02/24/18 09:25 Dose: 10 mg Oxycodone/Acetaminophen (Percocet 5/325 Mg Tab) 1 tab PO Q4H PRN PRN Reason: Pain, moderate (4-7) Stop: 02/26/18 17:26 Last Admin: 02/24/18 19:05 Dose: 1 tab Pantoprazole Sodium (Protonix Ec Tab) 40 mg PO DAILY [facility] Last Admin: 02/24/18 09:29 Dose: 40 mg Potassium Phos/Sodium Phos (Neutra-Phos) 1 pkt PO BID [facility] Last Admin: 02/24/18 18:11 Dose: 1 pkt Prednisone (Prednisone Tab) 5 mg PO DAILY [facility] Last Admin: 02/24/18 09:29 Dose: 5 mg Rosuvastatin Calcium (Crestor) 5 mg PO HS [facility] Last Admin: 02/23/18 22:05 Dose: 5 mg Sodium Bicarbonate (Sodium Bicarbonate Tab) 650 mg PO TID [facility] Last Admin: 02/24/18 18:11 Dose: 650 mg Tacrolimus (Prograf Cap) 3 mg PO Q12 [facility] Last Admin: 02/24/18 09:59 Dose: 3 mg - Labs Labs: 02/24/18 06:14 02/24/18 06:14 PT 19.0 SECONDS (9.7-12.2) H 02/22/18 12:32 INR 1.7 02/22/18 12:32 APTT 34 SECONDS (21-34) 02/22/18 12:32 - Constitutional Appears: No Acute Distress, Chronically Ill - Head Exam Head Exam: NORMAL INSPECTION - Eye Exam Eye Exam: Normal appearance - ENT Exam ENT Exam: Normal Exam - Neck Exam Neck Exam: Normal Inspection - Respiratory Exam Respiratory Exam: Clear to Ausculation Bilateral, NORMAL BREATHING PATTERN - Cardiovascular Exam Cardiovascular Exam: REGULAR RHYTHM, Murmur - GI/Abdominal Exam GI & Abdominal Exam: Soft, Normal Bowel Sounds - Rectal Exam Rectal Exam: Deferred - Extremities Exam Additional comments: Swollen and tender left knee. - Back Exam Back Exam: NORMAL INSPECTION - Neurological Exam Neurological Exam: Alert, Awake, Oriented x3 - Psychiatric Exam Psychiatric exam: Anxious - Skin Skin Exam: Dry, Intact, Normal Color, Warm Assessment and Plan (1) Septic arthritis of knee, left Assessment & Plan: All cultures from the left knee aspirate show no bacterial growth. Status: Acute (2) Severe sepsis Assessment & Plan: To continue IV antibiotic empirically as per Dr Nash. Status: Acute (3) History of renal transplant Status: Chronic (4) Hypotension Assessment & Plan: Patient has normal BP and is eating better. Will discontinue IVF. Status: Resolved
[2018-02-25] MEDS: Piperacill/Tazo 2.25gm in Dex 2.25 GM/50 ML BAG IVPB SCH ×3 (01:57→17:57)
[2018-02-25 07:13] LABS: BASO # 0.1 K/uL (0.0-0.2); BASO % 0.9 % (0.0-2.0); EOS # 0.3 K/uL (0.0-0.7); EOS % 3.1 % (0.0-4.0); HEMOGLOBIN 8.6 g/dL (12.0-18.0); LYMPH # 0.9 K/uL (1.0-4.3); LYMPH % 8.6 % (20.0-40.0); MEAN CELL VOLUME 79.1 fL (80.0-94.0); MEAN CORPUSCULAR HEMOGLOBIN 25.2 pg (27.0-31.0); MEAN CORPUSCULAR HGB CONC 31.9 g/dL (33.0-37.0); MEAN PLATELET VOLUME 7.7 fL (7.2-11.7); MONO # 0.8 K/uL (0.0-0.8); MONO % 7.2 % (0.0-10.0); NEUT # 8.7 K/uL (1.8-7.0); NEUT % 80.2 % (50.0-75.0); PLATELET COUNT 293 K/uL (130-400); RBC 3.43 Mil/uL (4.40-5.90); RED CELL DISTRIBUTION WIDTH 19.1 % (11.5-14.5); WHITE BLOOD COUNT 10.9 K/uL (4.8-10.8)
[2018-02-25 07:41] LABS: ALBUMIN 2.8 g/dL (3.5-5.0); ALT/SGPT 34 U/L (21-72); AST/SGOT 27 U/L (17-59); BLOOD UREA NITROGEN 12 mg/dL (9-20); CALCIUM 8.1 mg/dl (8.6-10.4); GFR NON-AFRICAN AMERICAN > 60
[2018-02-25] MEDS: (Novolog) Insulin Aspart, Recombinant 100 u/ml 10 ml vial SC SCH ×4 (07:44→21:35)
[2018-02-25] MEDS: Levothyroxine 175 MCG TAB PO SCH (07:50)
[2018-02-25] MEDS: Albuterol HFA 90 mcg/actuation (8 g) IH SCH (07:55)
[2018-02-25] MEDS: diltiaZEM 240 mg/24 Hours CD Cap PO SCH (10:16)
[2018-02-25] MEDS: Magnesium Oxide 400 mg Tab UD PO SCH ×3 (10:16→17:58)
[2018-02-25] MEDS: Calcium-Vit D 500 mg-200 Units Tab UD PO SCH (10:17)
[2018-02-25] MEDS: Potassium & Sodium Phosphate PO SCH ×2 (10:17→17:58)
[2018-02-25] MEDS: Pantoprazole 40 mg EC Tab PO SCH (10:17)
[2018-02-25 10:54] LABS: BANDS 4 % (0-2); EOSINOPHIL 3 % (0-4); LYMPHOCYTE 7 % (20-40); MONOCYTE 7 % (0-10); NEUTROPHIL 79 % (50-75); TOTAL CELLS COUNTED 100
[2018-02-25 10:55] LABS: ANISOCYTOSIS SLIGHT; HYPOCHROMIC SLIGHT; OVALOCYTES SLIGHT; PLATELET ESTIMATE NORMAL (NORMAL); POIKILOCYTOSIS SLIGHT; POLYCHROMIC SLIGHT; SCHISTOCYTES SLIGHT
[2018-02-25 10:56] LABS: LARGE PLATELETS PRESENT
[2018-02-25 10:57] LABS: TOXIC GRANULATION PRESENT
[2018-02-25 10:58] LABS: MICROCYTOSIS SLIGHT
[2018-02-25 10:59] LABS: BURR CELLS SLIGHT
[2018-02-25] MEDS: Oxycodone/Acetaminophen 5/325 mg Tab PO PRN (11:18)
[2018-02-25 11:27] LABS: % CD4 (T HELPER CELL) 17 Percent (30-61); % CD8 (SUPPRESSOR T CELL) 34 Percent (12-42); ABSOLUTE CD4 CELLS 115 Cells/mcL (490-1740); ABSOLUTE CD8 CELLS 226 Cells/mcL (180-1170); ABSOLUTE LYMPHOCYTES 668 Cells/mcL (850-3900); HELPER/SUPPRESSOR RATIO 0.51 Ratio (0.86-5.00)
[2018-02-25] MEDS: Febuxostat [Uloric] 80 MG PO SCH (13:45)
[2018-02-25] MEDS ORDERED: Albuterol-Ipratrop 3 mg / 0.5 (3 ml) UD INH SCH (14:00)
--- NOTE | 2018-02-25 16:46 | CP.PCM.PN ---
Subjective - Date & Time of Evaluation Date of Evaluation: 02/25/18 Time of Evaluation: 16:44 - Subjective Subjective: Patient had left knee arthrocentesis by DR Avery today. Still with left knee pain, but feels better with better appetite. Afebrile but WBC: 10.6 with shift to the left and toxic granules. Objective - Vital Signs/Intake and Output Vital Signs (last 24 hours): Temp Pulse Resp BP Pulse Ox 98.9 F 102 H 22 105/62 100 02/25/18 13:57 02/25/18 13:57 02/25/18 13:57 02/25/18 13:57 02/25/18 07:25 Intake and Output: 02/25/18 02/25/18 06:59 18:59 Intake Total 1200 Balance 1200 - Medications Medications: Current Medications Albuterol (Ventolin Hfa 90 Mcg/Actuation (8 G)) 1 puff IH RQD [facility] Last Admin: 02/25/18 07:55 Dose: 1 puff Albuterol/Ipratropium (Duoneb 3 Mg/0.5 Mg (3 Ml) Ud) 3 ml INH RQ6 [facility] Calcium/Vitamin D (Oyster Shell Calcium/Vitamin D 500 Mg-200 Iu) 1 tab PO DAILY [facility] Last Admin: 02/25/18 10:17 Dose: 1 tab Clonazepam (Klonopin) 1 mg PO DAILY [facility] Last Admin: 02/25/18 10:16 Dose: 1 mg Dextrose (Dextrose 50% Inj) 0 ml IV STAT PRN; Protocol PRN Reason: Hypoglycemia Protocol Dextrose (Glutose 15) 0 gm PO ONCE PRN; Protocol PRN Reason: Hypoglycemia Protocol Diltiazem HCl (Cardizem Cd) 240 mg PO DAILY [facility] Last Admin: 02/25/18 10:16 Dose: 240 mg Ergocalciferol (Drisdol 50,000 Intl Units Cap) 1 cap PO QWK [facility] Folic Acid (Folic Acid) 1 mg PO DAILY [facility] Last Admin: 02/25/18 10:16 Dose: 1 mg Glucagon (Glucagen Diagnostic Kit) 0 mg IM STAT PRN; Protocol PRN Reason: Hypoglycemia Protocol Home Med (Patient's Own Medication) 1 tab PO DAILY [facility] Last Admin: 02/25/18 13:45 Dose: 1 tab Piperacillin Sod/Tazobactam Sod (Zosyn 2.25 Gm Iv Premix) 2.25 gm in 50 mls @ 100 mls/hr IVPB Q8H [facility] PRN Reason: Protocol Last Admin: 02/25/18 10:18 Dose: 100 mls/hr Dextrose (Dextrose 5% In Water 1000 Ml) 1,000 mls @ 0 mls/hr IV .Q0M PRN; Protocol; Per Protocol PRN Reason: Hypoglycemia Protocol Insulin Aspart (Novolog) 0 unit SC ACHS [facility] PRN Reason: Protocol Last Admin: 02/25/18 13:03 Dose: Not Given Levothyroxine Sodium (Synthroid) 175 mcg PO DAILY@0630 [facility] Last Admin: 02/25/18 07:50 Dose: 175 mcg Magnesium Oxide (Mag-Ox) 400 mg PO TID [facility] Last Admin: 02/25/18 13:45 Dose: 400 mg Montelukast Sodium (Singulair) 10 mg PO DAILY [facility] Last Admin: 02/25/18 10:17 Dose: 10 mg Oxycodone/Acetaminophen (Percocet 5/325 Mg Tab) 1 tab PO Q4H PRN PRN Reason: Pain, moderate (4-7) Stop: 02/26/18 17:26 Last Admin: 02/25/18 11:18 Dose: 1 tab Pantoprazole Sodium (Protonix Ec Tab) 40 mg PO DAILY [facility] Last Admin: 02/25/18 10:17 Dose: 40 mg Potassium Phos/Sodium Phos (Neutra-Phos) 1 pkt PO BID [facility] Last Admin: 02/25/18 10:17 Dose: 1 pkt Prednisone (Prednisone Tab) 5 mg PO DAILY [facility] Last Admin: 02/25/18 10:16 Dose: 5 mg Rosuvastatin Calcium (Crestor) 5 mg PO HS [facility] Last Admin: 02/24/18 21:37 Dose: 5 mg Sodium Bicarbonate (Sodium Bicarbonate Tab) 650 mg PO TID [facility] Last Admin: 02/25/18 13:45 Dose: 650 mg Tacrolimus (Prograf Cap) 3 mg PO Q12 [facility] Last Admin: 02/25/18 10:18 Dose: 3 mg - Labs Labs: 02/25/18 06:59 02/25/18 06:59 PT 19.0 SECONDS (9.7-12.2) H 02/22/18 12:32 INR 1.7 02/22/18 12:32 APTT 34 SECONDS (21-34) 02/22/18 12:32 - Constitutional Appears: No Acute Distress, Chronically Ill - Head Exam Head Exam: NORMAL INSPECTION - Eye Exam Eye Exam: Normal appearance Pupil Exam: NORMAL ACCOMODATION - ENT Exam ENT Exam: Normal Exam - Neck Exam Neck Exam: Normal Inspection - Respiratory Exam Respiratory Exam: Clear to Ausculation Bilateral, NORMAL BREATHING PATTERN - Cardiovascular Exam Cardiovascular Exam: REGULAR RHYTHM, Murmur - GI/Abdominal Exam GI & Abdominal Exam: Soft, Normal Bowel Sounds - Rectal Exam Rectal Exam: Deferred - Extremities Exam Extremities Exam: Normal Inspection Additional comments: Swollen and tender left knee. - Back Exam Back Exam: NORMAL INSPECTION - Neurological Exam Neurological Exam: Alert, Awake, Oriented x3 - Psychiatric Exam Psychiatric exam: Anxious - Skin Skin Exam: Dry, Intact, Normal Color Assessment and Plan (1) Septic arthritis of knee, left Assessment & Plan: Had left knee aspiration today. Awaiting culture. Status: Acute (2) Severe sepsis Assessment & Plan: Patient is better with IV Zosyn, but all cultures are negative, and patient remains afebrile. ? Sepsis ? Source of infection. Status: Acute (3) History of renal transplant Status: Chronic (4) Hypotension Status: Resolved
--- NOTE | 2018-02-25 23:43 | CP.PCM.PN ---
Subjective - Date & Time of Evaluation Date of Evaluation: 02/25/18 Time of Evaluation: 15:20 - Subjective Subjective: 72 year old [place] male with recurrent painful left knee pain and effusion. Patient has had weekly knee aspirations for the past six weeks. He also has a history of gout. Mr Suero has had negative fluid cultures. Patient has received 21 days of IV Cubicin. He denies any fever or chills. Presently, left knee is swollen but not hot to the touch. Using sterile technique, another aspiration was performed . The fluid seems to be localized above the patella. 32cc's of thick, yellowish fluid was aspirated. The remaining fluid seems loculated. Aspirate was again sent for culture. Objective - Vital Signs/Intake and Output Vital Signs (last 24 hours): Temp Pulse Resp BP Pulse Ox 98.1 F 90 20 113/71 100 02/25/18 15:11 02/25/18 18:30 02/25/18 15:11 02/25/18 15:11 02/25/18 15:11 - Medications Medications: Current Medications Albuterol (Ventolin Hfa 90 Mcg/Actuation (8 G)) 1 puff IH RQD [facility] Last Admin: 02/25/18 07:55 Dose: 1 puff Albuterol/Ipratropium (Duoneb 3 Mg/0.5 Mg (3 Ml) Ud) 3 ml INH RQ6 [facility] Calcium/Vitamin D (Oyster Shell Calcium/Vitamin D 500 Mg-200 Iu) 1 tab PO DAILY [facility] Last Admin: 02/25/18 10:17 Dose: 1 tab Clonazepam (Klonopin) 1 mg PO DAILY [facility] Last Admin: 02/25/18 10:16 Dose: 1 mg Dextrose (Dextrose 50% Inj) 0 ml IV STAT PRN; Protocol PRN Reason: Hypoglycemia Protocol Dextrose (Glutose 15) 0 gm PO ONCE PRN; Protocol PRN Reason: Hypoglycemia Protocol Diltiazem HCl (Cardizem Cd) 240 mg PO DAILY [facility] Last Admin: 02/25/18 10:16 Dose: 240 mg Ergocalciferol (Drisdol 50,000 Intl Units Cap) 1 cap PO QWK [facility] Folic Acid (Folic Acid) 1 mg PO DAILY [facility] Last Admin: 02/25/18 10:16 Dose: 1 mg Glucagon (Glucagen Diagnostic Kit) 0 mg IM STAT PRN; Protocol PRN Reason: Hypoglycemia Protocol Home Med (Patient's Own Medication) 1 tab PO DAILY [facility] Last Admin: 02/25/18 13:45 Dose: 1 tab Piperacillin Sod/Tazobactam Sod (Zosyn 2.25 Gm Iv Premix) 2.25 gm in 50 mls @ 100 mls/hr IVPB Q8H [facility] PRN Reason: Protocol Last Admin: 02/25/18 17:57 Dose: 100 mls/hr Insulin Aspart (Novolog) 0 unit SC ACHS [facility] PRN Reason: Protocol Last Admin: 02/25/18 21:35 Dose: Not Given Levothyroxine Sodium (Synthroid) 175 mcg PO DAILY@0630 [facility] Last Admin: 02/25/18 07:50 Dose: 175 mcg Magnesium Oxide (Mag-Ox) 400 mg PO TID [facility] Last Admin: 02/25/18 17:58 Dose: 400 mg Montelukast Sodium (Singulair) 10 mg PO DAILY [facility] Last Admin: 02/25/18 10:17 Dose: 10 mg Oxycodone/Acetaminophen (Percocet 5/325 Mg Tab) 1 tab PO Q4H PRN PRN Reason: Pain, moderate (4-7) Stop: 02/26/18 17:26 Last Admin: 02/25/18 11:18 Dose: 1 tab Pantoprazole Sodium (Protonix Ec Tab) 40 mg PO DAILY [facility] Last Admin: 02/25/18 10:17 Dose: 40 mg Potassium Phos/Sodium Phos (Neutra-Phos) 1 pkt PO BID [facility] Last Admin: 02/25/18 17:58 Dose: 1 pkt Prednisone (Prednisone Tab) 5 mg PO DAILY [facility] Last Admin: 02/25/18 10:16 Dose: 5 mg Rosuvastatin Calcium (Crestor) 5 mg PO HS [facility] Last Admin: 02/25/18 21:28 Dose: 5 mg Sodium Bicarbonate (Sodium Bicarbonate Tab) 650 mg PO TID [facility] Last Admin: 02/25/18 17:58 Dose: 650 mg Tacrolimus (Prograf Cap) 3 mg PO Q12 [facility] Last Admin: 02/25/18 21:28 Dose: 3 mg - Labs Labs: 02/25/18 06:59 02/25/18 06:59 PT 19.0 SECONDS (9.7-12.2) H 02/22/18 12:32 INR 1.7 02/22/18 12:32 APTT 34 SECONDS (21-34) 02/22/18 12:32 - Constitutional Appears: Chronically Ill - Head Exam Head Exam: NORMOCEPHALIC - Eye Exam Eye Exam: Normal appearance Pupil Exam: NORMAL ACCOMODATION - ENT Exam ENT Exam: Normal Exam - Neck Exam Neck Exam: Normal Inspection - Respiratory Exam Respiratory Exam: Decreased Breath Sounds - Cardiovascular Exam Cardiovascular Exam: REGULAR RHYTHM - GI/Abdominal Exam GI & Abdominal Exam: Normal Bowel Sounds - Rectal Exam Rectal Exam: Deferred - Exam Exam: NORMAL INSPECTION - Extremities Exam Extremities Exam: Joint Swelling - Back Exam Back Exam: NORMAL INSPECTION - Neurological Exam Neurological Exam: Oriented x3 - Psychiatric Exam Psychiatric exam: Depressed - Skin Skin Exam: Dry Assessment and Plan (1) Septic arthritis of knee, left Status: Acute (2) Gout Status: Acute
[2018-02-26] MEDS: Piperacill/Tazo 2.25gm in Dex 2.25 GM/50 ML BAG IVPB SCH ×3 (01:44→18:16)
[2018-02-26] MEDS: Levothyroxine 175 MCG TAB PO SCH (05:40)
[2018-02-26] MEDS: (Novolog) Insulin Aspart, Recombinant 100 u/ml 10 ml vial SC SCH ×4 (07:54→22:35)
[2018-02-26] MEDS: Albuterol HFA 90 mcg/actuation (8 g) IH SCH (08:17)
[2018-02-26] MEDS: Febuxostat [Uloric] 80 MG PO SCH (09:57)
[2018-02-26] MEDS: Calcium-Vit D 500 mg-200 Units Tab UD PO SCH (09:58)
[2018-02-26] MEDS: Magnesium Oxide 400 mg Tab UD PO SCH ×3 (09:59→22:32)
[2018-02-26] MEDS: diltiaZEM 240 mg/24 Hours CD Cap PO SCH (09:59)
[2018-02-26] MEDS: Potassium & Sodium Phosphate PO SCH ×2 (09:59→22:34)
[2018-02-26] MEDS: Pantoprazole 40 mg EC Tab PO SCH (10:00)
[2018-02-26 10:01] LABS: BASO # 0.1 K/uL (0.0-0.2); BASO % 0.9 % (0.0-2.0); EOS # 0.2 K/uL (0.0-0.7); EOS % 1.7 % (0.0-4.0); HEMOGLOBIN 8.6 g/dL (12.0-18.0); LYMPH # 1.2 K/uL (1.0-4.3); LYMPH % 10.2 % (20.0-40.0); MEAN CELL VOLUME 78.5 fL (80.0-94.0); MEAN CORPUSCULAR HGB CONC 31.8 g/dL (33.0-37.0); MEAN PLATELET VOLUME 7.9 fL (7.2-11.7); MONO # 0.8 K/uL (0.0-0.8); MONO % 7.4 % (0.0-10.0); NEUT # 9.1 K/uL (1.8-7.0); NEUT % 79.8 % (50.0-75.0); RBC 3.42 Mil/uL (4.40-5.90); RED CELL DISTRIBUTION WIDTH 20.1 % (11.5-14.5); WHITE BLOOD COUNT 11.4 K/uL (4.8-10.8)
[2018-02-26] MEDS: Albuterol-Ipratrop 3 mg / 0.5 (3 ml) UD INH SCH ×2 (13:40→19:43)
[2018-02-26 14:20] LABS: ALBUMIN 3.2 g/dL (3.5-5.0); ALT/SGPT 23 U/L (21-72); AST/SGOT 21 U/L (17-59); BLOOD UREA NITROGEN 13 mg/dL (9-20); CALCIUM 8.6 mg/dl (8.6-10.4); GFR NON-AFRICAN AMERICAN 60
--- NOTE | 2018-02-26 15:17 | CP.PCM.PN ---
Subjective - Date & Time of Evaluation Date of Evaluation: 02/26/18 Time of Evaluation: 09:00 - Subjective Subjective: febrile again repeat aspiration sent cont iv antibiotics consider ortho eval as well as MRI Objective - Vital Signs/Intake and Output Vital Signs (last 24 hours): Temp Pulse Resp BP Pulse Ox 101.1 F H 88 20 143/67 100 02/26/18 13:17 02/26/18 09:14 02/26/18 09:14 02/26/18 09:14 02/26/18 09:14 Intake and Output: 02/26/18 02/26/18 06:59 18:59 Intake Total 360 Output Total 250 Balance 110 - Medications Medications: Current Medications Acetaminophen (Tylenol 325mg Tab) 650 mg PO Q4 PRN PRN Reason: Fever >100.4 F Last Admin: 02/26/18 13:17 Dose: 650 mg Albuterol/Ipratropium (Duoneb 3 Mg/0.5 Mg (3 Ml) Ud) 3 ml INH RQ6 [facility] Last Admin: 02/26/18 13:40 Dose: Not Given Calcium/Vitamin D (Oyster Shell Calcium/Vitamin D 500 Mg-200 Iu) 1 tab PO DAILY [facility] Last Admin: 02/26/18 09:58 Dose: 1 tab Clonazepam (Klonopin) 1 mg PO DAILY [facility] Last Admin: 02/26/18 10:00 Dose: 1 mg Dextrose (Dextrose 50% Inj) 0 ml IV STAT PRN; Protocol PRN Reason: Hypoglycemia Protocol Dextrose (Glutose 15) 0 gm PO ONCE PRN; Protocol PRN Reason: Hypoglycemia Protocol Diltiazem HCl (Cardizem Cd) 240 mg PO DAILY [facility] Last Admin: 02/26/18 09:59 Dose: 240 mg Ergocalciferol (Drisdol 50,000 Intl Units Cap) 1 cap PO QWK [facility] Folic Acid (Folic Acid) 1 mg PO DAILY [facility] Last Admin: 02/26/18 09:59 Dose: 1 mg Glucagon (Glucagen Diagnostic Kit) 0 mg IM STAT PRN; Protocol PRN Reason: Hypoglycemia Protocol Home Med (Patient's Own Medication) 1 tab PO DAILY [facility] Last Admin: 02/26/18 09:57 Dose: 1 tab Piperacillin Sod/Tazobactam Sod (Zosyn 2.25 Gm Iv Premix) 2.25 gm in 50 mls @ 100 mls/hr IVPB Q8H [facility] PRN Reason: Protocol Last Admin: 02/26/18 09:57 Dose: 100 mls/hr Insulin Aspart (Novolog) 0 unit SC ACHS [facility] PRN Reason: Protocol Last Admin: 02/26/18 11:54 Dose: Not Given Levothyroxine Sodium (Synthroid) 175 mcg PO DAILY@0630 [facility] Last Admin: 02/26/18 05:40 Dose: 175 mcg Magnesium Oxide (Mag-Ox) 400 mg PO TID [facility] Last Admin: 02/26/18 13:18 Dose: 400 mg Montelukast Sodium (Singulair) 10 mg PO DAILY [facility] Last Admin: 02/26/18 10:00 Dose: 10 mg Oxycodone/Acetaminophen (Percocet 5/325 Mg Tab) 1 tab PO Q4H PRN PRN Reason: Pain, moderate (4-7) Stop: 02/26/18 17:26 Last Admin: 02/25/18 11:18 Dose: 1 tab Pantoprazole Sodium (Protonix Ec Tab) 40 mg PO DAILY [facility] Last Admin: 02/26/18 10:00 Dose: 40 mg Potassium Phos/Sodium Phos (Neutra-Phos) 1 pkt PO BID [facility] Last Admin: 02/26/18 09:59 Dose: 1 pkt Prednisone (Prednisone Tab) 5 mg PO DAILY [facility] Last Admin: 02/26/18 09:59 Dose: 5 mg Rosuvastatin Calcium (Crestor) 5 mg PO HS [facility] Last Admin: 02/25/18 21:28 Dose: 5 mg Sodium Bicarbonate (Sodium Bicarbonate Tab) 650 mg PO TID [facility] Last Admin: 02/26/18 13:18 Dose: 650 mg Tacrolimus (Prograf Cap) 3 mg PO Q12 [facility] Last Admin: 02/26/18 09:58 Dose: 3 mg - Labs Labs: 02/26/18 08:21 02/26/18 13:48 PT 19.0 SECONDS (9.7-12.2) H 02/22/18 12:32 INR 1.7 02/22/18 12:32 APTT 34 SECONDS (21-34) 02/22/18 12:32 - Constitutional Appears: Non-toxic, Chronically Ill - Head Exam Head Exam: NORMOCEPHALIC - Eye Exam Eye Exam: PERRL - ENT Exam ENT Exam: Mucous Membranes Dry - Neck Exam Neck Exam: absent: Lymphadenopathy - Respiratory Exam Respiratory Exam: Decreased Breath Sounds - Cardiovascular Exam Cardiovascular Exam: REGULAR RHYTHM - GI/Abdominal Exam GI & Abdominal Exam: Distended Assessment and Plan (1) Bronchiectasis with acute exacerbation Status: Acute (2) COPD bronchitis Status: Acute (3) Cardiomyopathy Status: Acute (4) Chest pain Status: Acute (5) Chronic atrial fibrillation Status: Acute (6) Chronic kidney disease, stage III (moderate) Status: Acute (7) DM type 2 (diabetes mellitus, type 2) Status: Acute (8) Gout Status: Acute - Assessment and Plan (Free Text) Assessment: febrile again repeat aspiration sent cont iv antibiotics consider ortho eval as well as MRI
[2018-02-26] MEDS: Oxycodone/Acetaminophen 5/325 mg Tab PO PRN (15:20)
[2018-02-27] MEDS: Albuterol-Ipratrop 3 mg / 0.5 (3 ml) UD INH SCH ×4 (01:35→19:41)
[2018-02-27] MEDS ORDERED: Oxycodone/Acetaminophen 5/325 mg Tab PO STA (04:57)
[2018-02-27] MEDS: Levothyroxine 175 MCG TAB PO SCH (05:51)
[2018-02-27] MEDS: (Novolog) Insulin Aspart, Recombinant 100 u/ml 10 ml vial SC SCH ×4 (07:13→21:51)
[2018-02-27 07:21] LABS: BASO # 0.1 K/uL (0.0-0.2); BASO % 0.9 % (0.0-2.0); EOS # 0.3 K/uL (0.0-0.7); EOS % 2.8 % (0.0-4.0); HEMOGLOBIN 8.5 g/dL (12.0-18.0); LYMPH # 0.7 K/uL (1.0-4.3); LYMPH % 7.2 % (20.0-40.0); MEAN CELL VOLUME 78.5 fL (80.0-94.0); MEAN CORPUSCULAR HEMOGLOBIN 25.4 pg (27.0-31.0); MEAN CORPUSCULAR HGB CONC 32.4 g/dL (33.0-37.0); MEAN PLATELET VOLUME 8.1 fL (7.2-11.7); MONO # 0.8 K/uL (0.0-0.8); MONO % 8.3 % (0.0-10.0); NEUT # 7.8 K/uL (1.8-7.0); NEUT % 80.8 % (50.0-75.0); PLATELET COUNT 285 K/uL (130-400); RBC 3.34 Mil/uL (4.40-5.90); RED CELL DISTRIBUTION WIDTH 20.1 % (11.5-14.5); WHITE BLOOD COUNT 9.6 K/uL (4.8-10.8)
[2018-02-27 07:56] LABS: ALB/GLOB RATIO 0.9 (1.0-2.1); ALBUMIN 2.7 g/dL (3.5-5.0); ALT/SGPT 17 U/L (21-72); AST/SGOT 37 U/L (17-59); BLOOD UREA NITROGEN 16 mg/dL (9-20); CALCIUM 8.2 mg/dl (8.6-10.4); GFR NON-AFRICAN AMERICAN 60
[2018-02-27 08:28] LABS: ANISOCYTOSIS SLIGHT; BANDS 5 % (0-2); EOSINOPHIL 1 % (0-4); HYPOCHROMIC SLIGHT; LYMPHOCYTE 8 % (20-40); MONOCYTE 6 % (0-10); NEUTROPHIL 80 % (50-75); PLATELET ESTIMATE NORMAL (NORMAL); POIKILOCYTOSIS SLIGHT; TOTAL CELLS COUNTED 100
[2018-02-27 08:29] LABS: BURR CELLS SLIGHT; MICROCYTOSIS SLIGHT; OVALOCYTES SLIGHT
[2018-02-27] MEDS: Potassium & Sodium Phosphate PO SCH ×2 (09:11→18:03)
[2018-02-27] MEDS: Magnesium Oxide 400 mg Tab UD PO SCH ×3 (09:11→18:03)
[2018-02-27] MEDS: Pantoprazole 40 mg EC Tab PO SCH (09:12)
[2018-02-27] MEDS: Calcium-Vit D 500 mg-200 Units Tab UD PO SCH (09:13)
[2018-02-27] MEDS: Febuxostat [Uloric] 80 MG PO SCH (09:20)
[2018-02-27] MEDS: Sodium Chloride 0.9% 1,000 ML IV SCH ×2 (10:09→18:45)
--- NOTE | 2018-02-27 10:44 | CP.PCM.PN ---
Subjective - Date & Time of Evaluation Date of Evaluation: 02/27/18 Time of Evaluation: 10:41 - Subjective Subjective: Patient states his left knee is feeling a little bit better. He says he hasn't been out of bed. No new complaints. Denies numbness/tingling/pain in other joints/cp/sob/dizziness/palp/n/v Review of Systems - Review of Systems All systems: reviewed and no additional remarkable complaints except - Musculoskeletal Musculoskeletal: As Par HPI Objective - Vital Signs/Intake and Output Vital Signs (last 24 hours): Temp Pulse Resp BP Pulse Ox 97.6 F 69 20 96/62 L 100 02/27/18 07:50 02/27/18 07:50 02/27/18 07:50 02/27/18 07:50 02/27/18 07:50 Intake and Output: 02/27/18 02/27/18 06:59 18:59 Intake Total 350 Output Total 400 Balance -50 - Medications Medications: Current Medications Acetaminophen (Tylenol 325mg Tab) 650 mg PO Q4 PRN PRN Reason: Fever >100.4 F Last Admin: 02/26/18 13:17 Dose: 650 mg Albuterol/Ipratropium (Duoneb 3 Mg/0.5 Mg (3 Ml) Ud) 3 ml INH RQ6 [facility] Last Admin: 02/27/18 01:35 Dose: Not Given Calcium/Vitamin D (Oyster Shell Calcium/Vitamin D 500 Mg-200 Iu) 1 tab PO DAILY [facility] Last Admin: 02/27/18 09:13 Dose: 1 tab Clonazepam (Klonopin) 1 mg PO DAILY [facility] Last Admin: 02/27/18 09:12 Dose: 1 mg Dextrose (Dextrose 50% Inj) 0 ml IV STAT PRN; Protocol PRN Reason: Hypoglycemia Protocol Dextrose (Glutose 15) 0 gm PO ONCE PRN; Protocol PRN Reason: Hypoglycemia Protocol Diltiazem HCl (Cardizem Cd) 240 mg PO DAILY [facility] Last Admin: 02/26/18 09:59 Dose: 240 mg Ergocalciferol (Drisdol 50,000 Intl Units Cap) 1 cap PO QWK [facility] Folic Acid (Folic Acid) 1 mg PO DAILY [facility] Last Admin: 02/27/18 09:12 Dose: 1 mg Glucagon (Glucagen Diagnostic Kit) 0 mg IM STAT PRN; Protocol PRN Reason: Hypoglycemia Protocol Home Med (Patient's Own Medication) 1 tab PO DAILY [facility] Last Admin: 02/27/18 09:20 Dose: 1 tab Daptomycin 310 mg/ Sodium (Chloride) 100 mls @ 100 mls/hr IV Q24H [facility] PRN Reason: Protocol Stop: 03/03/18 20:01 Last Admin: 02/26/18 20:42 Dose: 100 mls/hr Sodium Chloride (Sodium Chloride 0.9%) 1,000 mls @ 100 mls/hr IV .Q10H [facility] Last Admin: 02/27/18 10:09 Dose: 100 mls/hr Insulin Aspart (Novolog) 0 unit SC ACHS [facility] PRN Reason: Protocol Last Admin: 02/27/18 07:13 Dose: Not Given Levothyroxine Sodium (Synthroid) 175 mcg PO DAILY@0630 [facility] Last Admin: 02/27/18 05:51 Dose: 175 mcg Magnesium Oxide (Mag-Ox) 400 mg PO TID [facility] Last Admin: 02/27/18 09:11 Dose: 400 mg Montelukast Sodium (Singulair) 10 mg PO DAILY [facility] Last Admin: 02/27/18 09:12 Dose: 10 mg Pantoprazole Sodium (Protonix Ec Tab) 40 mg PO DAILY [facility] Last Admin: 02/27/18 09:12 Dose: 40 mg Potassium Phos/Sodium Phos (Neutra-Phos) 1 pkt PO BID [facility] Last Admin: 02/27/18 09:11 Dose: 1 pkt Prednisone (Prednisone Tab) 5 mg PO DAILY [facility] Last Admin: 02/27/18 09:11 Dose: 5 mg Rosuvastatin Calcium (Crestor) 5 mg PO HS [facility] Last Admin: 02/26/18 22:32 Dose: 5 mg Sodium Bicarbonate (Sodium Bicarbonate Tab) 650 mg PO TID [facility] Last Admin: 02/27/18 09:12 Dose: 650 mg Tacrolimus (Prograf Cap) 3 mg PO Q12 [facility] Last Admin: 02/27/18 09:13 Dose: 3 mg - Labs Labs: 02/27/18 07:00 02/27/18 07:09 PT 19.0 SECONDS (9.7-12.2) H 02/22/18 12:32 INR 1.7 02/22/18 12:32 APTT 34 SECONDS (21-34) 02/22/18 12:32 - Constitutional Appears: Well, No Acute Distress - Head Exam Head Exam: ATRAUMATIC - Respiratory Exam Respiratory Exam: NORMAL BREATHING PATTERN - Cardiovascular Exam Additional comments: +DP/PT pulses - Extremities Exam Additional comments: knee effusion improving no erythema not warm AROM still limited due to pain,but improved slightly minimally tender - Neurological Exam Neurological Exam: Alert, Awake, Oriented x3 Neuro motor strength exam: Left Lower Extremity: 5 (+great toe ext/df/pf, AROM left knee improving) - Psychiatric Exam Psychiatric exam: Normal Affect, Normal Mood - Skin Skin Exam: Dry, Intact, Normal Color, Warm Assessment and Plan (1) Acute gout of left knee Assessment & Plan: cultures left knee from ED negative for growth clinically improving no orthopedic intervention indicated at this time +uric acid crystals PT/OT needs to be out of bed several times daily VTE proph d/w DR. Tovar, agrees with above Status: Acute
[2018-02-27] MEDS: diltiaZEM 240 mg/24 Hours CD Cap PO SCH (11:47)
--- NOTE | 2018-02-27 13:46 | CP.PCM.PN ---
Subjective - Date & Time of Evaluation Date of Evaluation: 02/27/18 Time of Evaluation: 09:00 - Subjective Subjective: restarted cubicin dr figueroa oadrian board Objective - Vital Signs/Intake and Output Vital Signs (last 24 hours): Temp Pulse Resp BP Pulse Ox 97.6 F 69 20 96/62 L 100 02/27/18 07:50 02/27/18 07:50 02/27/18 07:50 02/27/18 07:50 02/27/18 07:50 Intake and Output: 02/27/18 02/27/18 06:59 18:59 Intake Total 350 Output Total 400 Balance -50 - Medications Medications: Current Medications Acetaminophen (Tylenol 325mg Tab) 650 mg PO Q4 PRN PRN Reason: Fever >100.4 F Last Admin: 02/26/18 13:17 Dose: 650 mg Albuterol/Ipratropium (Duoneb 3 Mg/0.5 Mg (3 Ml) Ud) 3 ml INH RQ6 [facility] Last Admin: 02/27/18 01:35 Dose: Not Given Calcium/Vitamin D (Oyster Shell Calcium/Vitamin D 500 Mg-200 Iu) 1 tab PO DAILY [facility] Last Admin: 02/27/18 09:13 Dose: 1 tab Clonazepam (Klonopin) 1 mg PO DAILY [facility] Last Admin: 02/27/18 09:12 Dose: 1 mg Dextrose (Dextrose 50% Inj) 0 ml IV STAT PRN; Protocol PRN Reason: Hypoglycemia Protocol Dextrose (Glutose 15) 0 gm PO ONCE PRN; Protocol PRN Reason: Hypoglycemia Protocol Diltiazem HCl (Cardizem Cd) 240 mg PO DAILY [facility] Last Admin: 02/27/18 11:47 Dose: Not Given Ergocalciferol (Drisdol 50,000 Intl Units Cap) 1 cap PO QWK [facility] Folic Acid (Folic Acid) 1 mg PO DAILY [facility] Last Admin: 02/27/18 09:12 Dose: 1 mg Glucagon (Glucagen Diagnostic Kit) 0 mg IM STAT PRN; Protocol PRN Reason: Hypoglycemia Protocol Home Med (Patient's Own Medication) 1 tab PO DAILY [facility] Last Admin: 02/27/18 09:20 Dose: 1 tab Daptomycin 310 mg/ Sodium (Chloride) 100 mls @ 100 mls/hr IV Q24H [facility] PRN Reason: Protocol Stop: 03/03/18 20:01 Last Admin: 02/26/18 20:42 Dose: 100 mls/hr Sodium Chloride (Sodium Chloride 0.9%) 1,000 mls @ 100 mls/hr IV .Q10H [facility] Last Admin: 02/27/18 10:09 Dose: 100 mls/hr Insulin Aspart (Novolog) 0 unit SC ACHS [facility] PRN Reason: Protocol Last Admin: 02/27/18 12:00 Dose: 2 u Levothyroxine Sodium (Synthroid) 175 mcg PO DAILY@0630 [facility] Last Admin: 02/27/18 05:51 Dose: 175 mcg Magnesium Oxide (Mag-Ox) 400 mg PO TID [facility] Last Admin: 02/27/18 13:42 Dose: 400 mg Montelukast Sodium (Singulair) 10 mg PO DAILY [facility] Last Admin: 02/27/18 09:12 Dose: 10 mg Pantoprazole Sodium (Protonix Ec Tab) 40 mg PO DAILY [facility] Last Admin: 02/27/18 09:12 Dose: 40 mg Potassium Phos/Sodium Phos (Neutra-Phos) 1 pkt PO BID [facility] Last Admin: 02/27/18 09:11 Dose: 1 pkt Prednisone (Prednisone Tab) 5 mg PO DAILY [facility] Last Admin: 02/27/18 09:11 Dose: 5 mg Rosuvastatin Calcium (Crestor) 5 mg PO HS [facility] Last Admin: 02/26/18 22:32 Dose: 5 mg Sodium Bicarbonate (Sodium Bicarbonate Tab) 650 mg PO TID [facility] Last Admin: 02/27/18 13:42 Dose: 650 mg Tacrolimus (Prograf Cap) 3 mg PO Q12 [facility] Last Admin: 02/27/18 09:13 Dose: 3 mg - Labs Labs: 02/27/18 07:00 02/27/18 07:09 PT 19.0 SECONDS (9.7-12.2) H 02/22/18 12:32 INR 1.7 02/22/18 12:32 APTT 34 SECONDS (21-34) 02/22/18 12:32 - Constitutional Appears: Non-toxic, Cachectic, Chronically Ill - Head Exam Head Exam: NORMOCEPHALIC - Eye Exam Eye Exam: PERRL - ENT Exam ENT Exam: Mucous Membranes Dry - Neck Exam Neck Exam: absent: Lymphadenopathy - Respiratory Exam Respiratory Exam: Decreased Breath Sounds Assessment and Plan (1) Bronchiectasis with acute exacerbation Status: Acute (2) COPD bronchitis Status: Acute (3) Cardiomyopathy Status: Acute (4) Chest pain Status: Acute (5) Chronic atrial fibrillation Status: Acute (6) Chronic kidney disease, stage III (moderate) Status: Acute (7) DM type 2 (diabetes mellitus, type 2) Status: Acute (8) Gout Status: Acute
--- NOTE | 2018-02-27 17:15 | CP.PCM.PN ---
Subjective - Date & Time of Evaluation Date of Evaluation: 02/27/18 Time of Evaluation: 13:45 - Subjective Subjective: Patient had fever yesterday and hypotension this AM. Antibiotic changed to Cubicin IV. Patient still with pain in the left knee, and poor appetite. According to Dr Nieves, the patient will need 6 weeks of IV Cubicin. He will need a PICC line. Objective - Vital Signs/Intake and Output Vital Signs (last 24 hours): Temp Pulse Resp BP Pulse Ox 99.1 F 83 18 103/71 100 02/27/18 16:00 02/27/18 16:00 02/27/18 16:00 02/27/18 16:00 02/27/18 16:00 Intake and Output: 02/27/18 02/27/18 06:59 18:59 Intake Total 350 Output Total 400 Balance -50 - Medications Medications: Current Medications Acetaminophen (Tylenol 325mg Tab) 650 mg PO Q4 PRN PRN Reason: Fever >100.4 F Last Admin: 02/26/18 13:17 Dose: 650 mg Albuterol/Ipratropium (Duoneb 3 Mg/0.5 Mg (3 Ml) Ud) 3 ml INH RQ6 [facility] Last Admin: 02/27/18 15:03 Dose: Not Given Calcium/Vitamin D (Oyster Shell Calcium/Vitamin D 500 Mg-200 Iu) 1 tab PO DAILY [facility] Last Admin: 02/27/18 09:13 Dose: 1 tab Clonazepam (Klonopin) 1 mg PO DAILY [facility] Last Admin: 02/27/18 09:12 Dose: 1 mg Dextrose (Dextrose 50% Inj) 0 ml IV STAT PRN; Protocol PRN Reason: Hypoglycemia Protocol Dextrose (Glutose 15) 0 gm PO ONCE PRN; Protocol PRN Reason: Hypoglycemia Protocol Diltiazem HCl (Cardizem Cd) 240 mg PO DAILY [facility] Last Admin: 02/27/18 11:47 Dose: Not Given Ergocalciferol (Drisdol 50,000 Intl Units Cap) 1 cap PO QWK [facility] Folic Acid (Folic Acid) 1 mg PO DAILY [facility] Last Admin: 02/27/18 09:12 Dose: 1 mg Glucagon (Glucagen Diagnostic Kit) 0 mg IM STAT PRN; Protocol PRN Reason: Hypoglycemia Protocol Home Med (Patient's Own Medication) 1 tab PO DAILY [facility] Last Admin: 02/27/18 09:20 Dose: 1 tab Daptomycin 310 mg/ Sodium (Chloride) 100 mls @ 100 mls/hr IV Q24H [facility] PRN Reason: Protocol Stop: 03/03/18 20:01 Last Admin: 02/26/18 20:42 Dose: 100 mls/hr Sodium Chloride (Sodium Chloride 0.9%) 1,000 mls @ 100 mls/hr IV .Q10H [facility] Last Admin: 02/27/18 10:09 Dose: 100 mls/hr Insulin Aspart (Novolog) 0 unit SC ACHS [facility] PRN Reason: Protocol Last Admin: 02/27/18 12:00 Dose: 2 u Levothyroxine Sodium (Synthroid) 175 mcg PO DAILY@0630 [facility] Last Admin: 02/27/18 05:51 Dose: 175 mcg Magnesium Oxide (Mag-Ox) 400 mg PO TID [facility] Last Admin: 02/27/18 13:42 Dose: 400 mg Montelukast Sodium (Singulair) 10 mg PO DAILY [facility] Last Admin: 02/27/18 09:12 Dose: 10 mg Pantoprazole Sodium (Protonix Ec Tab) 40 mg PO DAILY [facility] Last Admin: 02/27/18 09:12 Dose: 40 mg Potassium Phos/Sodium Phos (Neutra-Phos) 1 pkt PO BID [facility] Last Admin: 02/27/18 09:11 Dose: 1 pkt Prednisone (Prednisone Tab) 5 mg PO DAILY [facility] Last Admin: 02/27/18 09:11 Dose: 5 mg Rosuvastatin Calcium (Crestor) 5 mg PO HS [facility] Last Admin: 02/26/18 22:32 Dose: 5 mg Sodium Bicarbonate (Sodium Bicarbonate Tab) 650 mg PO TID [facility] Last Admin: 02/27/18 13:42 Dose: 650 mg Tacrolimus (Prograf Cap) 3 mg PO Q12 [facility] Last Admin: 02/27/18 09:13 Dose: 3 mg - Labs Labs: 02/27/18 07:00 02/27/18 07:09 PT 19.0 SECONDS (9.7-12.2) H 02/22/18 12:32 INR 1.7 02/22/18 12:32 APTT 34 SECONDS (21-34) 02/22/18 12:32 - Constitutional Appears: Cachectic, Chronically Ill - Head Exam Head Exam: NORMAL INSPECTION - Eye Exam Eye Exam: Normal appearance - ENT Exam ENT Exam: Normal Exam - Neck Exam Neck Exam: Normal Inspection - Respiratory Exam Respiratory Exam: Clear to Ausculation Bilateral - Cardiovascular Exam Cardiovascular Exam: REGULAR RHYTHM - GI/Abdominal Exam GI & Abdominal Exam: Soft, Normal Bowel Sounds - Rectal Exam Rectal Exam: Deferred - Exam Exam: NORMAL INSPECTION - Extremities Exam Extremities Exam: Normal Inspection - Back Exam Back Exam: NORMAL INSPECTION - Neurological Exam Neurological Exam: Alert, Awake, Normal Gait - Psychiatric Exam Psychiatric exam: Anxious - Skin Skin Exam: Dry, Intact, Normal Color, Warm Assessment and Plan (1) Septic arthritis of knee, left Assessment & Plan: Second left knee aspiration shows no bacterial growth after 24 hours. Status: Acute (2) Severe sepsis Assessment & Plan: Patient switched to new antibiotic ( Cubicin ) because he spiked a fever of 101 last night. Status: Acute (3) History of renal transplant Status: Chronic (4) Hypotension Assessment & Plan: Patient was hypotensive again this AM. Now on NS IV at 100 ml/Hr. Status: Acute
[2018-02-27] MEDS: Oxycodone/Acetaminophen 5/325 mg Tab PO PRN (19:17)
[2018-02-28] MEDS: Albuterol-Ipratrop 3 mg / 0.5 (3 ml) UD INH SCH ×4 (02:53→20:38)
[2018-02-28] MEDS: Oxycodone/Acetaminophen 5/325 mg Tab PO PRN ×2 (04:05→09:41)
[2018-02-28] MEDS: Levothyroxine 175 MCG TAB PO SCH (05:58)
[2018-02-28] MEDS: Sodium Chloride 0.9% 1,000 ML IV SCH ×2 (05:59→16:00)
[2018-02-28 07:22] LABS: BASO # 0.1 K/uL (0.0-0.2); BASO % 0.9 % (0.0-2.0); EOS # 0.2 K/uL (0.0-0.7); EOS % 1.9 % (0.0-4.0); HEMOGLOBIN 8.3 g/dL (12.0-18.0); LYMPH # 0.6 K/uL (1.0-4.3); LYMPH % 5.9 % (20.0-40.0); MEAN CELL VOLUME 78.3 fL (80.0-94.0); MEAN CORPUSCULAR HEMOGLOBIN 25.9 pg (27.0-31.0); MEAN CORPUSCULAR HGB CONC 33.1 g/dL (33.0-37.0); MEAN PLATELET VOLUME 7.5 fL (7.2-11.7); MONO # 0.6 K/uL (0.0-0.8); MONO % 6.1 % (0.0-10.0); NEUT # 8.6 K/uL (1.8-7.0); NEUT % 85.2 % (50.0-75.0); PLATELET COUNT 282 K/uL (130-400); RBC 3.19 Mil/uL (4.40-5.90); RED CELL DISTRIBUTION WIDTH 19.7 % (11.5-14.5); WHITE BLOOD COUNT 10.1 K/uL (4.8-10.8)
[2018-02-28 07:29] LABS: ALBUMIN 2.8 g/dL (3.5-5.0); ALT/SGPT 28 U/L (21-72); AST/SGOT 56 U/L (17-59); BLOOD UREA NITROGEN 13 mg/dL (9-20); CALCIUM 8.5 mg/dl (8.6-10.4); GFR NON-AFRICAN AMERICAN 60
[2018-02-28] MEDS: (Novolog) Insulin Aspart, Recombinant 100 u/ml 10 ml vial SC SCH ×4 (07:37→22:27)
--- NOTE | 2018-02-28 07:59 | CP.PCM.CON ---
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 Multiple recent admissions for the same. REcently treated w/ iv antibiotics 3 week course for strep gallolyticus bacteremia. REcent FERNANDO negative. Hx of colon ca s/p colectomy During hospital stay, he had arthrocentesis, cultures negative so far. On iv cubicin. Still spiking fevers off and on. On prednisone and prograf for renal transplant + fever, chills. c/o left knee pain. no n/v/d/headache/sob/dizziness/chest pain PMHx: as above Allergies: metoprolol soc hx: n o etoh/tobacco/drug use family hx: non contributary ROS: Detailed 10 point ROS obtained, as above in HPI Review of Systems - Review of Systems All systems: reviewed and no additional remarkable complaints except (as per HPI ) Past Patient History - Infectious Disease Hx of Infectious Diseases: C.diff - Tetanus Immunizations Tetanus Immunization: Unknown - Past Medical History & Family History Past Medical History?: Yes - Past Social History Smoking Status: Former Smoker Alcohol: None Drugs: Denies Home Situation {Lives}: With Family Domestic Violence: Negative - CARDIAC Hx Congestive Heart Failure: Yes Hx Hypercholesterolemia: Yes Hx Hypertension: Yes - PULMONARY Hx Chronic Obstructive Pulmonary Disease (COPD): Yes (Emphysema,) - NEUROLOGICAL Hx Neurological Disorder: Yes - HEENT Hx HEENT Problems: Yes Hx Cataracts: Yes (bilat iol,had surgery) - RENAL Hx Chronic Kidney Disease: Yes (s/p renal transplant) - ENDOCRINE/METABOLIC Hx Hypothyroidism: Yes - HEMATOLOGICAL/ONCOLOGICAL Hx Anemia: Yes - INTEGUMENTARY Hx Dermatological Problems: Yes (sun sentivity) Hx Eczema: Yes - MUSCULOSKELETAL/RHEUMATOLOGICAL Hx Arthritis: Yes (Gout) - GASTROINTESTINAL Hx Gastrointestinal Disorders: Yes (Colon cancer) Hx Bowel Surgery: Yes (HEMICOLECTOMY FOR COLON CANCER) Hx Gastritis: Yes Hx Hemorrhoids: Yes - GENITOURINARY/GYNECOLOGICAL Hx Genitourinary Disorders: No - PSYCHIATRIC Hx Substance Use: No - SURGICAL HISTORY Hx Surgeries: Yes (Hemicolectomy for colon cancer) Hx Angiogram: Yes (ICD insertion for ventricular tachycardia.) Hx Cataract Extraction: Yes Hx Cardiac Catheterization: Yes Hx Kidney Transplant: Yes () Other/Comment: THYROID SURGERY-2004. Hx of perforated bowel corrected with surgery. AICD - ANESTHESIA Hx Anesthesia: Yes Hx Anesthesia Reactions: No Hx Malignant Hyperthermia: No Meds Allergies/Adverse Reactions: Allergies Allergy/AdvReac Type Severity Reaction Status Date / Time metoprolol Allergy Intermediate ITCHING Verified 02/01/18 11:29 - Medications Medications: Current Medications Acetaminophen (Tylenol 325mg Tab) 650 mg PO Q4 PRN PRN Reason: Fever >100.4 F Last Admin: 02/26/18 13:17 Dose: 650 mg Albuterol/Ipratropium (Duoneb 3 Mg/0.5 Mg (3 Ml) Ud) 3 ml INH RQ6 [facility] Last Admin: 02/28/18 02:53 Dose: 3 ml Calcium/Vitamin D (Oyster Shell Calcium/Vitamin D 500 Mg-200 Iu) 1 tab PO DAILY [facility] Last Admin: 02/27/18 09:13 Dose: 1 tab Clonazepam (Klonopin) 1 mg PO DAILY [facility] Last Admin: 02/27/18 09:12 Dose: 1 mg Dextrose (Dextrose 50% Inj) 0 ml IV STAT PRN; Protocol PRN Reason: Hypoglycemia Protocol Dextrose (Glutose 15) 0 gm PO ONCE PRN; Protocol PRN Reason: Hypoglycemia Protocol Diltiazem HCl (Cardizem Cd) 240 mg PO DAILY [facility] Last Admin: 02/27/18 11:47 Dose: Not Given Ergocalciferol (Drisdol 50,000 Intl Units Cap) 1 cap PO QWK [facility] Folic Acid (Folic Acid) 1 mg PO DAILY [facility] Last Admin: 02/27/18 09:12 Dose: 1 mg Glucagon (Glucagen Diagnostic Kit) 0 mg IM STAT PRN; Protocol PRN Reason: Hypoglycemia Protocol Home Med (Patient's Own Medication) 1 tab PO DAILY [facility] Last Admin: 02/27/18 09:20 Dose: 1 tab Daptomycin 310 mg/ Sodium (Chloride) 100 mls @ 100 mls/hr IV Q24H [facility] PRN Reason: Protocol Stop: 03/03/18 20:01 Last Admin: 02/27/18 20:45 Dose: 100 mls/hr Sodium Chloride (Sodium Chloride 0.9%) 1,000 mls @ 100 mls/hr IV .Q10H [facility] Last Admin: 02/28/18 05:59 Dose: 100 mls/hr Insulin Aspart (Novolog) 0 unit SC ACHS [facility] PRN Reason: Protocol Last Admin: 02/28/18 07:37 Dose: Not Given Levothyroxine Sodium (Synthroid) 175 mcg PO DAILY@0630 [facility] Last Admin: 02/28/18 05:58 Dose: 175 mcg Magnesium Oxide (Mag-Ox) 400 mg PO TID [facility] Last Admin: 02/27/18 18:03 Dose: 400 mg Montelukast Sodium (Singulair) 10 mg PO DAILY [facility] Last Admin: 02/27/18 09:12 Dose: 10 mg Oxycodone/Acetaminophen (Percocet 5/325 Mg Tab) 1 tab PO Q4H PRN PRN Reason: Pain, moderate (4-7) Stop: 03/02/18 18:54 Last Admin: 02/28/18 04:05 Dose: 1 tab Pantoprazole Sodium (Protonix Ec Tab) 40 mg PO DAILY [facility] Last Admin: 02/27/18 09:12 Dose: 40 mg Potassium Phos/Sodium Phos (Neutra-Phos) 1 pkt PO BID [facility] Last Admin: 02/27/18 18:03 Dose: 1 pkt Prednisone (Prednisone Tab) 5 mg PO DAILY [facility] Last Admin: 02/27/18 09:11 Dose: 5 mg Rosuvastatin Calcium (Crestor) 5 mg PO HS [facility] Last Admin: 02/27/18 21:46 Dose: 5 mg Sodium Bicarbonate (Sodium Bicarbonate Tab) 650 mg PO TID [facility] Last Admin: 02/27/18 18:03 Dose: 650 mg Tacrolimus (Prograf Cap) 3 mg PO Q12 [facility] Last Admin: 02/27/18 21:46 Dose: 3 mg Physical Exam - Constitutional Appears: Non-toxic, No Acute Distress, Chronically Ill - Head Exam Head Exam: NORMAL INSPECTION, NORMOCEPHALIC - Eye Exam Eye Exam: EOMI, Normal appearance, PERRL - ENT Exam ENT Exam: Mucous Membranes Moist, Normal Exam - Neck Exam Neck exam: Positive for: Normal Inspection - Respiratory Exam Respiratory Exam: Clear to Auscultation Bilateral, NORMAL BREATHING PATTERN - Cardiovascular Exam Cardiovascular Exam: REGULAR RHYTHM - GI/Abdominal Exam GI & Abdominal Exam: Distended, Normal Bowel Sounds, Soft - Extremities Exam Extremities exam: Positive for: normal inspection - Neurological Exam Neurological exam: Alert, Oriented x3 Results - Vital Signs Recent Vital Signs: Last Vital Signs Temp 97.7 F 02/28/18 07:00 Pulse 97 H 02/28/18 07:00 Resp 20 02/28/18 07:00 BP 94/60 L 02/28/18 07:00 Pulse Ox 100 02/28/18 07:00 - Labs Result Diagrams: 02/28/18 07:06 02/28/18 07:06 Labs: Laboratory Results - last 24 hr 02/24/18 02/25/18 02/25/18 21:14 06:31 12:11 WBC RBC Hgb Hct MCV MCH MCHC RDW Plt Count MPV Neut % (Auto) Lymph % (Auto) [place] % (Auto) Eos % (Auto) Baso % (Auto) Neut # (Auto) Lymph # (Auto) [place] # (Auto) Eos # (Auto) Baso # (Auto) Neutrophils % (Manual) Band Neutrophils % Lymphocytes % (Manual) Monocytes % (Manual) Eosinophils % (Manual) Platelet Estimate Hypochromasia (manual) Poikilocytosis (manual Anisocytosis (manual) Microcytosis (manual) Ovalocytes [place] Cells Sodium Potassium Chloride Carbon Dioxide Anion Gap BUN Creatinine Est GFR ( Amer) Est GFR (Non-Af Amer) POC Glucose (mg/dL) 163 H 106 105 Random Glucose Calcium Phosphorus Magnesium Total Bilirubin AST ALT Alkaline Phosphatase Total Creatine Kinase Total Protein Albumin Globulin Albumin/Globulin Ratio 02/25/18 02/25/18 02/26/18 16:41 21:23 07:16 WBC RBC Hgb Hct MCV MCH MCHC RDW Plt Count MPV Neut % (Auto) Lymph % (Auto) [place] % (Auto) Eos % (Auto) Baso % (Auto) Neut # (Auto) Lymph # (Auto) [place] # (Auto) Eos # (Auto) Baso # (Auto) Neutrophils % (Manual) Band Neutrophils % Lymphocytes % (Manual) Monocytes % (Manual) Eosinophils % (Manual) Platelet Estimate Hypochromasia (manual) Poikilocytosis (manual Anisocytosis (manual) Microcytosis (manual) Ovalocytes David Cells Sodium Potassium Chloride Carbon Dioxide Anion Gap BUN Creatinine Est GFR ( Amer) Est GFR (Non-Af Amer) POC Glucose (mg/dL) 207 H 168 H 89 Random Glucose Calcium Phosphorus Magnesium Total Bilirubin AST ALT Alkaline Phosphatase Total Creatine Kinase Total Protein Albumin Globulin Albumin/Globulin Ratio 02/26/18 02/26/18 02/26/18 11:26 17:15 20:38 WBC RBC Hgb Hct MCV MCH MCHC RDW Plt Count MPV Neut % (Auto) Lymph % (Auto) [place] % (Auto) Eos % (Auto) Baso % (Auto) Neut # (Auto) Lymph # (Auto) [place] # (Auto) Eos # (Auto) Baso # (Auto) Neutrophils % (Manual) Band Neutrophils % Lymphocytes % (Manual) Monocytes % (Manual) Eosinophils % (Manual) Platelet Estimate Hypochromasia (manual) Poikilocytosis (manual Anisocytosis (manual) Microcytosis (manual) Ovalocytes [place] Cells Sodium Potassium Chloride Carbon Dioxide Anion Gap BUN Creatinine Est GFR ( Amer) Est GFR (Non-Af Amer) POC Glucose (mg/dL) 98 154 H 143 H Random Glucose Calcium Phosphorus Magnesium Total Bilirubin AST ALT Alkaline Phosphatase Total Creatine Kinase Total Protein Albumin Globulin Albumin/Globulin Ratio 02/27/18 02/27/18 02/27/18 06:31 07:00 11:39 WBC RBC Hgb Hct MCV MCH MCHC RDW Plt Count MPV Neut % (Auto) Lymph % (Auto) [place] % (Auto) Eos % (Auto) Baso % (Auto) Neut # (Auto) Lymph # (Auto) [place] # (Auto) Eos # (Auto) Baso # (Auto) Neutrophils % (Manual) 80 H Band Neutrophils % 5 H Lymphocytes % (Manual) 8 L Monocytes % (Manual) 6 Eosinophils % (Manual) 1 Platelet Estimate Normal Hypochromasia (manual) Slight Poikilocytosis (manual Slight Anisocytosis (manual) Slight Microcytosis (manual) Slight Ovalocytes Slight David Cells Slight Sodium Potassium Chloride Carbon Dioxide Anion Gap BUN Creatinine Est GFR ( Amer) Est GFR (Non-Af Amer) POC Glucose (mg/dL) 87 220 H Random Glucose Calcium Phosphorus Magnesium Total Bilirubin AST ALT Alkaline Phosphatase Total Creatine Kinase Total Protein Albumin Globulin Albumin/Globulin Ratio 02/27/18 02/27/18 02/28/18 16:01 21:27 06:55 WBC RBC Hgb Hct MCV MCH MCHC RDW Plt Count MPV Neut % (Auto) Lymph % (Auto) [place] % (Auto) Eos % (Auto) Baso % (Auto) Neut # (Auto) Lymph # (Auto) [place] # (Auto) Eos # (Auto) Baso # (Auto) Neutrophils % (Manual) Band Neutrophils % Lymphocytes % (Manual) Monocytes % (Manual) Eosinophils % (Manual) Platelet Estimate Hypochromasia (manual) Poikilocytosis (manual Anisocytosis (manual) Microcytosis (manual) Ovalocytes [place] Cells Sodium Potassium Chloride Carbon Dioxide Anion Gap BUN Creatinine Est GFR ( Amer) Est GFR (Non-Af Amer) POC Glucose (mg/dL) 324 H 223 H 101 Random Glucose Calcium Phosphorus Magnesium Total Bilirubin AST ALT Alkaline Phosphatase Total Creatine Kinase Total Protein Albumin Globulin Albumin/Globulin Ratio 02/28/18 02/28/18 02/28/18 07:06 07:06 07:06 WBC 10.1 RBC 3.19 L Hgb 8.3 L Hct 25.0 L MCV 78.3 L MCH 25.9 L MCHC 33.1 RDW 19.7 H Plt Count 282 MPV 7.5 Neut % (Auto) 85.2 H Lymph % (Auto) 5.9 L [place] % (Auto) 6.1 Eos % (Auto) 1.9 Baso % (Auto) 0.9 Neut # (Auto) 8.6 H Lymph # (Auto) 0.6 L [place] # (Auto) 0.6 Eos # (Auto) 0.2 Baso # (Auto) 0.1 Neutrophils % (Manual) Band Neutrophils % Lymphocytes % (Manual) Monocytes % (Manual) Eosinophils % (Manual) Platelet Estimate Hypochromasia (manual) Poikilocytosis (manual Anisocytosis (manual) Microcytosis (manual) Ovalocytes [place] Cells Sodium 134 Potassium 4.3 Chloride 99 Carbon Dioxide 29 Anion Gap 10 BUN 13 Creatinine 1.2 Est GFR ( Amer) > 60 Est GFR (Non-Af Amer) 60 POC Glucose (mg/dL) Random Glucose 105 Calcium 8.5 L Phosphorus 2.7 Magnesium 1.4 L Total Bilirubin 0.2 AST 56 ALT 28 Alkaline Phosphatase 69 Total Creatine Kinase < 20 L Total Protein 5.6 L Albumin 2.8 L Globulin 2.8 Albumin/Globulin Ratio 1.0 Assessment & Plan (1) Acute gout of left knee Status: Acute (2) Hypotension Status: Acute (3) Septic arthritis of knee, left Status: Acute (4) Chronic atrial fibrillation Status: Acute (5) Chronic kidney disease, stage III (moderate) Status: Acute (6) DM type 2 (diabetes mellitus, type 2) Status: Acute (7) HTN (hypertension), benign Status: Acute - Assessment and Plan (Free Text) Assessment: Renal transplant Left knee effusion - ? septic febrile illness hypotension DM plan: Antibiotics per ID, recommend blood cultures. Pt spiking fevers off and on agree w/ iv fluids maintain prograf and prednisone, tacrolimus level ordered
[2018-02-28 09:30] LABS: ANISOCYTOSIS SLIGHT; BANDS 1 % (0-2); LYMPHOCYTE 6 % (20-40); MONOCYTE 7 % (0-10); MYELOCYTE 1 % (0-0); NEUTROPHIL 85 % (50-75); PLATELET ESTIMATE NORMAL (NORMAL); TOTAL CELLS COUNTED 100
[2018-02-28 09:31] LABS: BURR CELLS SLIGHT; HYPOCHROMIC MODERATE; OVALOCYTES SLIGHT; POIKILOCYTOSIS SLIGHT; TARGET CELLS SLIGHT
[2018-02-28] MEDS: Pantoprazole 40 mg EC Tab PO SCH (09:32)
[2018-02-28] MEDS: diltiaZEM 240 mg/24 Hours CD Cap PO SCH (09:32)
[2018-02-28] MEDS: Potassium & Sodium Phosphate PO SCH ×2 (09:32→17:52)
[2018-02-28] MEDS: Febuxostat [Uloric] 80 MG PO SCH (09:33)
[2018-02-28] MEDS: Calcium-Vit D 500 mg-200 Units Tab UD PO SCH (09:33)
[2018-02-28] MEDS: Magnesium Oxide 400 mg Tab UD PO SCH ×3 (09:33→17:52)
--- NOTE | 2018-02-28 09:33 | CP.PCM.PN ---
Subjective - Date & Time of Evaluation Date of Evaluation: 02/28/18 Time of Evaluation: 09:00 - Subjective Subjective: pain and swelling worse will need OR/ washout please send AFB and Fungus cultures all bacterial cultures neg Objective - Vital Signs/Intake and Output Vital Signs (last 24 hours): Temp Pulse Resp BP Pulse Ox 97.8 F 109 H 18 151/70 H 96 02/28/18 09:31 02/28/18 09:31 02/28/18 09:31 02/28/18 09:31 02/28/18 09:31 Intake and Output: 02/28/18 02/28/18 06:59 18:59 Intake Total 1850 Output Total 300 Balance 1550 - Medications Medications: Current Medications Acetaminophen (Tylenol 325mg Tab) 650 mg PO Q4 PRN PRN Reason: Fever >100.4 F Last Admin: 02/26/18 13:17 Dose: 650 mg Albuterol/Ipratropium (Duoneb 3 Mg/0.5 Mg (3 Ml) Ud) 3 ml INH RQ6 [facility] Last Admin: 02/28/18 09:25 Dose: 3 ml Calcium/Vitamin D (Oyster Shell Calcium/Vitamin D 500 Mg-200 Iu) 1 tab PO DAILY [facility] Last Admin: 02/27/18 09:13 Dose: 1 tab Clonazepam (Klonopin) 1 mg PO DAILY [facility] Last Admin: 02/27/18 09:12 Dose: 1 mg Dextrose (Dextrose 50% Inj) 0 ml IV STAT PRN; Protocol PRN Reason: Hypoglycemia Protocol Dextrose (Glutose 15) 0 gm PO ONCE PRN; Protocol PRN Reason: Hypoglycemia Protocol Diltiazem HCl (Cardizem Cd) 240 mg PO DAILY [facility] Last Admin: 02/27/18 11:47 Dose: Not Given Ergocalciferol (Drisdol 50,000 Intl Units Cap) 1 cap PO QWK [facility] Folic Acid (Folic Acid) 1 mg PO DAILY [facility] Last Admin: 02/27/18 09:12 Dose: 1 mg Glucagon (Glucagen Diagnostic Kit) 0 mg IM STAT PRN; Protocol PRN Reason: Hypoglycemia Protocol Home Med (Patient's Own Medication) 1 tab PO DAILY [facility] Last Admin: 02/27/18 09:20 Dose: 1 tab Daptomycin 310 mg/ Sodium (Chloride) 100 mls @ 100 mls/hr IV Q24H [facility] PRN Reason: Protocol Stop: 03/03/18 20:01 Last Admin: 02/27/18 20:45 Dose: 100 mls/hr Sodium Chloride (Sodium Chloride 0.9%) 1,000 mls @ 100 mls/hr IV .Q10H [facility] Last Admin: 02/28/18 05:59 Dose: 100 mls/hr Insulin Aspart (Novolog) 0 unit SC ACHS [facility] PRN Reason: Protocol Last Admin: 02/28/18 07:37 Dose: Not Given Levothyroxine Sodium (Synthroid) 175 mcg PO DAILY@0630 [facility] Last Admin: 02/28/18 05:58 Dose: 175 mcg Magnesium Oxide (Mag-Ox) 400 mg PO TID [facility] Last Admin: 02/27/18 18:03 Dose: 400 mg Montelukast Sodium (Singulair) 10 mg PO DAILY [facility] Last Admin: 02/27/18 09:12 Dose: 10 mg Oxycodone/Acetaminophen (Percocet 5/325 Mg Tab) 1 tab PO Q4H PRN PRN Reason: Pain, moderate (4-7) Stop: 03/02/18 18:54 Last Admin: 02/28/18 04:05 Dose: 1 tab Pantoprazole Sodium (Protonix Ec Tab) 40 mg PO DAILY [facility] Last Admin: 02/27/18 09:12 Dose: 40 mg Potassium Phos/Sodium Phos (Neutra-Phos) 1 pkt PO BID [facility] Last Admin: 02/27/18 18:03 Dose: 1 pkt Prednisone (Prednisone Tab) 5 mg PO DAILY [facility] Last Admin: 02/27/18 09:11 Dose: 5 mg Rosuvastatin Calcium (Crestor) 5 mg PO HS [facility] Last Admin: 02/27/18 21:46 Dose: 5 mg Sodium Bicarbonate (Sodium Bicarbonate Tab) 650 mg PO TID [facility] Last Admin: 02/27/18 18:03 Dose: 650 mg Tacrolimus (Prograf Cap) 3 mg PO Q12 [facility] Last Admin: 02/27/18 21:46 Dose: 3 mg - Labs Labs: 02/28/18 07:06 02/28/18 07:06 PT 19.0 SECONDS (9.7-12.2) H 02/22/18 12:32 INR 1.7 02/22/18 12:32 APTT 34 SECONDS (21-34) 02/22/18 12:32 - Constitutional Appears: Non-toxic, Chronically Ill - Head Exam Head Exam: NORMOCEPHALIC - Eye Exam Eye Exam: absent: Scleral icterus - ENT Exam ENT Exam: Mucous Membranes Dry - Neck Exam Neck Exam: absent: Lymphadenopathy - Respiratory Exam Respiratory Exam: Decreased Breath Sounds - Cardiovascular Exam Cardiovascular Exam: REGULAR RHYTHM - GI/Abdominal Exam GI & Abdominal Exam: Distended - Rectal Exam Rectal Exam: Deferred - Exam Exam: NORMAL INSPECTION Assessment and Plan (1) Bronchiectasis with acute exacerbation Status: Acute (2) COPD bronchitis Status: Acute (3) Cardiomyopathy Status: Acute (4) Chest pain Status: Acute (5) Chronic atrial fibrillation Status: Acute (6) Chronic kidney disease, stage III (moderate) Status: Acute (7) DM type 2 (diabetes mellitus, type 2) Status: Acute (8) Gout Status: Acute
--- NOTE | 2018-02-28 09:51 | CP.PCM.PN ---
Subjective - Date & Time of Evaluation Date of Evaluation: 02/28/18 Time of Evaluation: 09:48 - Subjective Subjective: Patient complaining of knee pain. Seems a little more confused than yesterday. Review of Systems - Constitutional Constitutional: Fever - Musculoskeletal Musculoskeletal: As Par HPI Objective - Vital Signs/Intake and Output Vital Signs (last 24 hours): Temp Pulse Resp BP Pulse Ox 97.8 F 109 H 18 151/70 H 96 02/28/18 09:31 02/28/18 09:31 02/28/18 09:31 02/28/18 09:31 02/28/18 09:31 Intake and Output: 02/28/18 02/28/18 06:59 18:59 Intake Total 1850 Output Total 300 Balance 1550 - Medications Medications: Current Medications Acetaminophen (Tylenol 325mg Tab) 650 mg PO Q4 PRN PRN Reason: Fever >100.4 F Last Admin: 02/26/18 13:17 Dose: 650 mg Albuterol/Ipratropium (Duoneb 3 Mg/0.5 Mg (3 Ml) Ud) 3 ml INH RQ6 [facility] Last Admin: 02/28/18 09:25 Dose: 3 ml Calcium/Vitamin D (Oyster Shell Calcium/Vitamin D 500 Mg-200 Iu) 1 tab PO DAILY [facility] Last Admin: 02/28/18 09:33 Dose: 1 tab Clonazepam (Klonopin) 1 mg PO DAILY [facility] Last Admin: 02/28/18 09:32 Dose: 1 mg Dextrose (Dextrose 50% Inj) 0 ml IV STAT PRN; Protocol PRN Reason: Hypoglycemia Protocol Dextrose (Glutose 15) 0 gm PO ONCE PRN; Protocol PRN Reason: Hypoglycemia Protocol Diltiazem HCl (Cardizem Cd) 240 mg PO DAILY [facility] Last Admin: 02/28/18 09:32 Dose: 240 mg Ergocalciferol (Drisdol 50,000 Intl Units Cap) 1 cap PO QWK [facility] Folic Acid (Folic Acid) 1 mg PO DAILY [facility] Last Admin: 02/28/18 09:32 Dose: 1 mg Glucagon (Glucagen Diagnostic Kit) 0 mg IM STAT PRN; Protocol PRN Reason: Hypoglycemia Protocol Home Med (Patient's Own Medication) 1 tab PO DAILY [facility] Last Admin: 02/28/18 09:33 Dose: 1 tab Daptomycin 310 mg/ Sodium (Chloride) 100 mls @ 100 mls/hr IV Q24H [facility] PRN Reason: Protocol Stop: 03/03/18 20:01 Last Admin: 02/27/18 20:45 Dose: 100 mls/hr Sodium Chloride (Sodium Chloride 0.9%) 1,000 mls @ 100 mls/hr IV .Q10H [facility] Last Admin: 02/28/18 05:59 Dose: 100 mls/hr Insulin Aspart (Novolog) 0 unit SC ACHS [facility] PRN Reason: Protocol Last Admin: 02/28/18 07:37 Dose: Not Given Levothyroxine Sodium (Synthroid) 175 mcg PO DAILY@0630 [facility] Last Admin: 02/28/18 05:58 Dose: 175 mcg Magnesium Oxide (Mag-Ox) 400 mg PO TID [facility] Last Admin: 02/28/18 09:33 Dose: 400 mg Montelukast Sodium (Singulair) 10 mg PO DAILY [facility] Last Admin: 02/28/18 09:32 Dose: 10 mg Oxycodone/Acetaminophen (Percocet 5/325 Mg Tab) 1 tab PO Q4H PRN PRN Reason: Pain, moderate (4-7) Stop: 03/02/18 18:54 Last Admin: 02/28/18 09:41 Dose: 1 tab Pantoprazole Sodium (Protonix Ec Tab) 40 mg PO DAILY [facility] Last Admin: 02/28/18 09:32 Dose: 40 mg Potassium Phos/Sodium Phos (Neutra-Phos) 1 pkt PO BID [facility] Last Admin: 02/28/18 09:32 Dose: 1 pkt Prednisone (Prednisone Tab) 5 mg PO DAILY [facility] Last Admin: 02/28/18 09:33 Dose: 5 mg Rosuvastatin Calcium (Crestor) 5 mg PO HS [facility] Last Admin: 02/27/18 21:46 Dose: 5 mg Sodium Bicarbonate (Sodium Bicarbonate Tab) 650 mg PO TID [facility] Last Admin: 02/28/18 09:32 Dose: 650 mg Tacrolimus (Prograf Cap) 3 mg PO Q12 [facility] Last Admin: 02/28/18 09:34 Dose: 3 mg - Labs Labs: 02/28/18 07:06 02/28/18 07:06 PT 19.0 SECONDS (9.7-12.2) H 02/22/18 12:32 INR 1.7 02/22/18 12:32 APTT 34 SECONDS (21-34) 02/22/18 12:32 - Constitutional Appears: In Acute Distress, Confused - Head Exam Head Exam: ATRAUMATIC - Respiratory Exam Respiratory Exam: NORMAL BREATHING PATTERN - Extremities Exam Additional comments: Left knee: increased effusion overnight, now mod-severe, warm, more tenderness and unwilling to tolerate any ROM Calves soft NT neg homans +DP/PT pulses sensation intact Assessment and Plan (1) Acute gout of left knee Assessment & Plan: noted significant change overnight, worsening of joint effusion, warm, tmax 99.7 overnight d/w Dr. Tovar, NPO for arthroscopic I&D today d/w Patient's Vale, will be present at time of surgery d/w Dr. Bradshaw, patient is optimized for OR, r/o septic arthritis Status: Acute
[2018-02-28 11:46] LABS: PROTHROMBIN TIME 10.8 SECONDS (9.7-12.2)
--- NOTE | 2018-02-28 13:41 | CP.PCM.PN ---
Subjective - Date & Time of Evaluation Date of Evaluation: 02/28/18 Time of Evaluation: 13:38 - Subjective Subjective: Patient c/o of left knee pain. Had fever last night. Left knee much more painful and swollen than yesterday. Scheduled for a L knee D&C tonight. Patient had normal pharmacological nuclear stress test last year at my office. Objective - Vital Signs/Intake and Output Vital Signs (last 24 hours): Temp Pulse Resp BP Pulse Ox 97.8 F 109 H 18 151/70 H 96 02/28/18 09:31 02/28/18 09:31 02/28/18 09:31 02/28/18 09:31 02/28/18 09:31 Intake and Output: 02/28/18 02/28/18 06:59 18:59 Intake Total 1850 Output Total 300 Balance 1550 - Medications Medications: Current Medications Acetaminophen (Tylenol 325mg Tab) 650 mg PO Q4 PRN PRN Reason: Fever >100.4 F Last Admin: 02/26/18 13:17 Dose: 650 mg Albuterol/Ipratropium (Duoneb 3 Mg/0.5 Mg (3 Ml) Ud) 3 ml INH RQ6 [facility] Last Admin: 02/28/18 13:20 Dose: Not Given Calcium/Vitamin D (Oyster Shell Calcium/Vitamin D 500 Mg-200 Iu) 1 tab PO DAILY [facility] Last Admin: 02/28/18 09:33 Dose: 1 tab Clonazepam (Klonopin) 1 mg PO DAILY [facility] Last Admin: 02/28/18 09:32 Dose: 1 mg Dextrose (Dextrose 50% Inj) 0 ml IV STAT PRN; Protocol PRN Reason: Hypoglycemia Protocol Dextrose (Glutose 15) 0 gm PO ONCE PRN; Protocol PRN Reason: Hypoglycemia Protocol Diltiazem HCl (Cardizem Cd) 240 mg PO DAILY [facility] Last Admin: 02/28/18 09:32 Dose: 240 mg Ergocalciferol (Drisdol 50,000 Intl Units Cap) 1 cap PO QWK [facility] Folic Acid (Folic Acid) 1 mg PO DAILY [facility] Last Admin: 02/28/18 09:32 Dose: 1 mg Glucagon (Glucagen Diagnostic Kit) 0 mg IM STAT PRN; Protocol PRN Reason: Hypoglycemia Protocol Home Med (Patient's Own Medication) 1 tab PO DAILY [facility] Last Admin: 02/28/18 09:33 Dose: 1 tab Daptomycin 310 mg/ Sodium (Chloride) 100 mls @ 100 mls/hr IV Q24H [facility] PRN Reason: Protocol Stop: 03/03/18 20:01 Last Admin: 02/27/18 20:45 Dose: 100 mls/hr Sodium Chloride (Sodium Chloride 0.9%) 1,000 mls @ 100 mls/hr IV .Q10H [facility] Last Admin: 02/28/18 05:59 Dose: 100 mls/hr Insulin Aspart (Novolog) 0 unit SC ACHS [facility] PRN Reason: Protocol Last Admin: 02/28/18 12:08 Dose: Not Given Levothyroxine Sodium (Synthroid) 175 mcg PO DAILY@0630 [facility] Last Admin: 02/28/18 05:58 Dose: 175 mcg Magnesium Oxide (Mag-Ox) 400 mg PO TID [facility] Last Admin: 02/28/18 13:12 Dose: Not Given Montelukast Sodium (Singulair) 10 mg PO DAILY [facility] Last Admin: 02/28/18 09:32 Dose: 10 mg Oxycodone/Acetaminophen (Percocet 5/325 Mg Tab) 1 tab PO Q4H PRN PRN Reason: Pain, moderate (4-7) Stop: 03/02/18 18:54 Last Admin: 02/28/18 09:41 Dose: 1 tab Pantoprazole Sodium (Protonix Ec Tab) 40 mg PO DAILY [facility] Last Admin: 02/28/18 09:32 Dose: 40 mg Potassium Phos/Sodium Phos (Neutra-Phos) 1 pkt PO BID [facility] Last Admin: 02/28/18 09:32 Dose: 1 pkt Prednisone (Prednisone Tab) 5 mg PO DAILY [facility] Last Admin: 02/28/18 09:33 Dose: 5 mg Rosuvastatin Calcium (Crestor) 5 mg PO HS [facility] Last Admin: 02/27/18 21:46 Dose: 5 mg Sodium Bicarbonate (Sodium Bicarbonate Tab) 650 mg PO TID [facility] Last Admin: 02/28/18 13:12 Dose: Not Given Tacrolimus (Prograf Cap) 3 mg PO Q12 [facility] Last Admin: 02/28/18 09:34 Dose: 3 mg - Labs Labs: 02/28/18 07:06 02/28/18 07:06 PT 10.8 SECONDS (9.7-12.2) 02/28/18 11:22 INR 1.0 02/28/18 11:22 APTT 29 SECONDS (21-34) 02/28/18 11:22 - Constitutional Appears: No Acute Distress, Cachectic, Chronically Ill - Head Exam Head Exam: NORMAL INSPECTION - Eye Exam Eye Exam: Normal appearance - ENT Exam ENT Exam: Normal Exam - Neck Exam Neck Exam: Normal Inspection - Respiratory Exam Respiratory Exam: Clear to Ausculation Bilateral, NORMAL BREATHING PATTERN - Cardiovascular Exam Cardiovascular Exam: Murmur - GI/Abdominal Exam GI & Abdominal Exam: Soft, Normal Bowel Sounds - Rectal Exam Rectal Exam: Deferred - Extremities Exam Additional comments: Tender and swollen left knee. - Back Exam Back Exam: NORMAL INSPECTION - Neurological Exam Neurological Exam: Alert, Awake - Psychiatric Exam Additional comments: Slightly confused. - Skin Skin Exam: Dry, Intact, Normal Color, Warm Assessment and Plan (1) Septic arthritis of knee, left Assessment & Plan: For left knee D&C today. Status: Acute (2) Severe sepsis Assessment & Plan: On IV Cubicin. Status: Acute (3) History of renal transplant Status: Chronic (4) Hypotension Status: Resolved
--- NOTE | 2018-02-28 14:34 | CP.PCM.PN ---
Subjective - Date & Time of Evaluation Date of Evaluation: 02/28/18 Time of Evaluation: 14:28 - Subjective Subjective: PT SEEN BY DR. ROSE AND IS PENDING OR THIS EVENING. BLOOD TRANSFUSION ORDERED BY DR. ROSE. I DISCUSSED THE TRANSFUSION WELL SIGNS OF AN ALLERGIC REACTION WITH PT AND FAMILY AT BEDSIDE. PT AND FAMILY VERBALIZE UNDERSTAND FOR THE NEED OF TRANSFUSION. CONSENT SIGNED W GABRIELA PAYAN WITNESS. NO FURTHER ORDERS. Objective - Vital Signs/Intake and Output Vital Signs (last 24 hours): Temp Pulse Resp BP Pulse Ox 97.8 F 109 H 18 151/70 H 96 02/28/18 09:31 02/28/18 09:31 02/28/18 09:31 02/28/18 09:31 02/28/18 09:31 Intake and Output: 02/28/18 02/28/18 06:59 18:59 Intake Total 1850 Output Total 300 Balance 1550 - Medications Medications: Current Medications Acetaminophen (Tylenol 325mg Tab) 650 mg PO Q4 PRN PRN Reason: Fever >100.4 F Last Admin: 02/26/18 13:17 Dose: 650 mg Albuterol/Ipratropium (Duoneb 3 Mg/0.5 Mg (3 Ml) Ud) 3 ml INH RQ6 [facility] Last Admin: 02/28/18 13:20 Dose: Not Given Calcium/Vitamin D (Oyster Shell Calcium/Vitamin D 500 Mg-200 Iu) 1 tab PO DAILY [facility] Last Admin: 02/28/18 09:33 Dose: 1 tab Clonazepam (Klonopin) 1 mg PO DAILY [facility] Last Admin: 02/28/18 09:32 Dose: 1 mg Dextrose (Dextrose 50% Inj) 0 ml IV STAT PRN; Protocol PRN Reason: Hypoglycemia Protocol Dextrose (Glutose 15) 0 gm PO ONCE PRN; Protocol PRN Reason: Hypoglycemia Protocol Diltiazem HCl (Cardizem Cd) 240 mg PO DAILY [facility] Last Admin: 02/28/18 09:32 Dose: 240 mg Ergocalciferol (Drisdol 50,000 Intl Units Cap) 1 cap PO QWK [facility] Folic Acid (Folic Acid) 1 mg PO DAILY [facility] Last Admin: 02/28/18 09:32 Dose: 1 mg Glucagon (Glucagen Diagnostic Kit) 0 mg IM STAT PRN; Protocol PRN Reason: Hypoglycemia Protocol Home Med (Patient's Own Medication) 1 tab PO DAILY [facility] Last Admin: 02/28/18 09:33 Dose: 1 tab Daptomycin 310 mg/ Sodium (Chloride) 100 mls @ 100 mls/hr IV Q24H [facility] PRN Reason: Protocol Stop: 03/03/18 20:01 Last Admin: 02/27/18 20:45 Dose: 100 mls/hr Sodium Chloride (Sodium Chloride 0.9%) 1,000 mls @ 100 mls/hr IV .Q10H [facility] Last Admin: 02/28/18 05:59 Dose: 100 mls/hr Insulin Aspart (Novolog) 0 unit SC ACHS [facility] PRN Reason: Protocol Last Admin: 02/28/18 12:08 Dose: Not Given Levothyroxine Sodium (Synthroid) 175 mcg PO DAILY@0630 [facility] Last Admin: 02/28/18 05:58 Dose: 175 mcg Magnesium Oxide (Mag-Ox) 400 mg PO TID [facility] Last Admin: 02/28/18 13:12 Dose: Not Given Montelukast Sodium (Singulair) 10 mg PO DAILY [facility] Last Admin: 02/28/18 09:32 Dose: 10 mg Oxycodone/Acetaminophen (Percocet 5/325 Mg Tab) 1 tab PO Q4H PRN PRN Reason: Pain, moderate (4-7) Stop: 03/02/18 18:54 Last Admin: 02/28/18 09:41 Dose: 1 tab Pantoprazole Sodium (Protonix Ec Tab) 40 mg PO DAILY [facility] Last Admin: 02/28/18 09:32 Dose: 40 mg Potassium Phos/Sodium Phos (Neutra-Phos) 1 pkt PO BID [facility] Last Admin: 02/28/18 09:32 Dose: 1 pkt Prednisone (Prednisone Tab) 5 mg PO DAILY [facility] Last Admin: 02/28/18 09:33 Dose: 5 mg Rosuvastatin Calcium (Crestor) 5 mg PO HS [facility] Last Admin: 02/27/18 21:46 Dose: 5 mg Sodium Bicarbonate (Sodium Bicarbonate Tab) 650 mg PO TID [facility] Last Admin: 02/28/18 13:12 Dose: Not Given Tacrolimus (Prograf Cap) 3 mg PO Q12 [facility] Last Admin: 02/28/18 09:34 Dose: 3 mg - Labs Labs: 02/28/18 07:06 02/28/18 07:06 PT 10.8 SECONDS (9.7-12.2) 02/28/18 11:22 INR 1.0 02/28/18 11:22 APTT 29 SECONDS (21-34) 02/28/18 11:22
[2018-02-28] MEDS ORDERED: Lidocaine Hydrochloride 15 ML INJ ONE (16:34)
[2018-02-28] MEDS ORDERED: EPINEPHrine 1:1000 Nasal Sol(30mL) ONE (17:06)
[2018-02-28] MEDS ORDERED: Bacitracin 50,000 UNIT in Sodium Chloride 0.9% Irrig 1,000 ML IR SCH (17:15)
[2018-02-28] MEDS ORDERED: Propofol 10 mg/ml Inj (20 ML) ONE (19:05)
[2018-02-28] MEDS ORDERED: Lidocaine Hydrochloride 5 ML INJ ONE (19:10)
[2018-02-28] MEDS ORDERED: Lidocaine 4% (Laryng-O-Jet) Kit MM ONE (19:10)
[2018-02-28] MEDS ORDERED: Rocuronium 10 mg/ml (10 ml) ONE (19:10)
[2018-02-28] MEDS ORDERED: Etomidate 20 mg/10ml Inj IV ONE (19:10)
[2018-02-28] MEDS ORDERED: Midazolam 2 MG/2 ML VIAL ONE (19:22)
[2018-02-28] MEDS ORDERED: Phenylephrine 10 mg/ml Inj ONE (19:23)
[2018-02-28] MEDS ORDERED: ceFAZolin 1 gm in NS 1 GM/100 ML BAG IVPB ONE (19:27)
[2018-02-28] MEDS ORDERED: Bacitracin 500 Units/gm Oint Foilpak UD ONE (19:52)
[2018-02-28] MEDS ORDERED: HYDROmorphone 0.5 mg/0.5 ml ISec IVP PRN (20:14)
--- NOTE | 2018-02-28 20:26 | PCM.SURG1 ---
Surgeon's Initial Post Op Note - Surgeon's Notes Surgeon: La Walking Dragline Operator: ROBY Burch Type of Anesthesia: General Endo Anesthesia Administered By: DR Reynolds Pre-Operative Diagnosis: septic L knee. gouty arthropathy L knee Operative Findings: tear medial meniscus/tear lateral meniscus. severe synvoitis. chondrocalcinosis. purulence Post-Operative Diagnosis: as above. septic L knee. tricompartmental synovitis. chondrocalcinosis(r/o Gout). tear medial meniscus. tear lateral meniscus Operation Performed: arthroscopic tricompartmental synovectomy. arthroscopic incision/draionage L knee(sepsis). arthroscopic ireriogation/debridement ( chonrdocalcinosis/gout). arthroscopic partial medial/partial lateral meniscectomy. applx akin hurst dressing and knee immobilizer Specimen/Specimens Removed: synvoium/cartilage Estimated Blood Loss: EBL {In ML}: 10 Blood Products Given: N/A Drains Used: No Drains Post-Op Condition: Poor Date of Surgery/Procedure: 02/28/18 Time of Surgery/Procedure: 17:40 (time in room 1710/anaesthesia indcution time 1710)
[2018-02-28 20:43] LABS: FLUID TYPE SYNOVIAL FLUID
[2018-02-28 21:37] LABS: SF GROSS APPEARANCE BLOODY (CLEAR)
[2018-02-28 21:38] LABS: SYNOVIAL FLUID MONO/MACROPHAGE 3 % (0-0)
[2018-03-01] MEDS: Albuterol-Ipratrop 3 mg / 0.5 (3 ml) UD INH SCH ×3 (01:26→20:55)
[2018-03-01] MEDS: Sodium Chloride 0.9% 1,000 ML IV SCH ×2 (02:00→22:59)
[2018-03-01] MEDS: Levothyroxine 175 MCG TAB PO SCH (06:22)
[2018-03-01] MEDS: (Novolog) Insulin Aspart, Recombinant 100 u/ml 10 ml vial SC SCH ×4 (07:45→21:41)
[2018-03-01 07:53] LABS: BASO # 0.1 K/uL (0.0-0.2); BASO % 1.1 % (0.0-2.0); EOS # 0.2 K/uL (0.0-0.7); EOS % 1.4 % (0.0-4.0); HEMOGLOBIN 10.2 g/dL (12.0-18.0); LYMPH # 1.7 K/uL (1.0-4.3); LYMPH % 14.1 % (20.0-40.0); MEAN CELL VOLUME 78.9 fL (80.0-94.0); MEAN CORPUSCULAR HEMOGLOBIN 25.4 pg (27.0-31.0); MEAN CORPUSCULAR HGB CONC 32.1 g/dL (33.0-37.0); MEAN PLATELET VOLUME 7.4 fL (7.2-11.7); MONO # 0.8 K/uL (0.0-0.8); MONO % 6.9 % (0.0-10.0); NEUT # 9.2 K/uL (1.8-7.0); NEUT % 76.5 % (50.0-75.0); RBC 4.03 Mil/uL (4.40-5.90); RED CELL DISTRIBUTION WIDTH 19.3 % (11.5-14.5)
[2018-03-01 08:31] LABS: ALBUMIN 3.1 g/dL (3.5-5.0); ALT/SGPT 21 U/L (21-72); AST/SGOT 21 U/L (17-59); BLOOD UREA NITROGEN 13 mg/dL (9-20); CALCIUM 8.5 mg/dl (8.6-10.4); GFR NON-AFRICAN AMERICAN > 60
[2018-03-01] MEDS: Febuxostat [Uloric] 80 MG PO SCH (09:17)
[2018-03-01] MEDS: Pantoprazole 40 mg EC Tab PO SCH (09:18)
[2018-03-01] MEDS: Magnesium Oxide 400 mg Tab UD PO SCH ×2 (09:18→17:15)
[2018-03-01] MEDS: diltiaZEM 240 mg/24 Hours CD Cap PO SCH (09:18)
[2018-03-01] MEDS: Potassium & Sodium Phosphate PO SCH ×2 (09:18→18:22)
[2018-03-01] MEDS: Calcium-Vit D 500 mg-200 Units Tab UD PO SCH (09:19)
[2018-03-01] MEDS: Oxycodone/Acetaminophen 5/325 mg Tab PO PRN ×2 (09:30→19:51)
--- NOTE | 2018-03-01 12:35 | PCM.SURG1 ---
Surgeon's Initial Post Op Note - Surgeon's Notes Surgeon: Garland Elizondo MD Event Services Manager: NONE Type of Anesthesia: Local Pre-Operative Diagnosis: Poor venous access Operative Findings: Patent right brachial vein. Stenotic RIGHT innominate vein. Left pacemaker Post-Operative Diagnosis: Poor venous access, central venous stenosis Operation Performed: Single lumen picc, 25 cm. Tip is in subclavian vein. Specimen/Specimens Removed: NONE Estimated Blood Loss: EBL {In ML}: 3 Blood Products Given: N/A Drains Used: No Drains Post-Op Condition: Fair Date of Surgery/Procedure: 03/01/18 Time of Surgery/Procedure: 12:30
--- NOTE | 2018-03-01 12:53 | CP.PCM.PN ---
Subjective - Date & Time of Evaluation Date of Evaluation: 03/01/18 Time of Evaluation: 12:50 - Subjective Subjective: s/p arthroscopy knee so far C+S negative creat stable tacro levels high less fevers now very weak , not dyspneic Objective - Vital Signs/Intake and Output Vital Signs (last 24 hours): Temp Pulse Resp BP Pulse Ox 99.3 F 91 H 20 144/60 99 03/01/18 10:10 03/01/18 09:17 03/01/18 07:00 03/01/18 09:17 03/01/18 07:00 Intake and Output: 03/01/18 03/01/18 06:59 18:59 Intake Total 1355 Output Total 500 Balance 855 - Medications Medications: Current Medications Acetaminophen (Tylenol 325mg Tab) 650 mg PO Q4 PRN PRN Reason: Fever >100.4 F Last Admin: 02/26/18 13:17 Dose: 650 mg Albuterol/Ipratropium (Duoneb 3 Mg/0.5 Mg (3 Ml) Ud) 3 ml INH RQ6 [facility] Last Admin: 03/01/18 07:40 Dose: 3 ml Calcium/Vitamin D (Oyster Shell Calcium/Vitamin D 500 Mg-200 Iu) 1 tab PO DAILY [facility] Last Admin: 03/01/18 09:19 Dose: 1 tab Clonazepam (Klonopin) 1 mg PO DAILY [facility] Last Admin: 03/01/18 09:18 Dose: 1 mg Dextrose (Dextrose 50% Inj) 0 ml IV STAT PRN; Protocol PRN Reason: Hypoglycemia Protocol Dextrose (Glutose 15) 0 gm PO ONCE PRN; Protocol PRN Reason: Hypoglycemia Protocol Diltiazem HCl (Cardizem Cd) 240 mg PO DAILY [facility] Last Admin: 03/01/18 09:18 Dose: 240 mg Ergocalciferol (Drisdol 50,000 Intl Units Cap) 1 cap PO QWK [facility] Folic Acid (Folic Acid) 1 mg PO DAILY [facility] Last Admin: 03/01/18 09:18 Dose: 1 mg Glucagon (Glucagen Diagnostic Kit) 0 mg IM STAT PRN; Protocol PRN Reason: Hypoglycemia Protocol Home Med (Patient's Own Medication) 1 tab PO DAILY [facility] Last Admin: 03/01/18 09:17 Dose: 1 tab Daptomycin 310 mg/ Sodium (Chloride) 100 mls @ 100 mls/hr IV Q24H [facility] PRN Reason: Protocol Stop: 03/03/18 20:01 Last Admin: 02/28/18 22:08 Dose: 100 mls/hr Sodium Chloride (Sodium Chloride 0.9%) 1,000 mls @ 100 mls/hr IV .Q10H [facility] Last Admin: 03/01/18 02:00 Dose: Not Given Insulin Aspart (Novolog) 0 unit SC ACHS [facility] PRN Reason: Protocol Last Admin: 03/01/18 12:29 Dose: Not Given Levothyroxine Sodium (Synthroid) 175 mcg PO DAILY@0630 [facility] Last Admin: 03/01/18 06:22 Dose: 175 mcg Magnesium Oxide (Mag-Ox) 400 mg PO TID [facility] Last Admin: 03/01/18 09:18 Dose: 400 mg Montelukast Sodium (Singulair) 10 mg PO DAILY [facility] Last Admin: 03/01/18 09:18 Dose: 10 mg Oxycodone/Acetaminophen (Percocet 5/325 Mg Tab) 1 tab PO Q4H PRN PRN Reason: Pain, moderate (4-7) Stop: 03/02/18 18:54 Last Admin: 03/01/18 09:30 Dose: 1 tab Pantoprazole Sodium (Protonix Ec Tab) 40 mg PO DAILY [facility] Last Admin: 03/01/18 09:18 Dose: 40 mg Potassium Phos/Sodium Phos (Neutra-Phos) 1 pkt PO BID [facility] Last Admin: 03/01/18 09:18 Dose: 1 pkt Prednisone (Prednisone Tab) 5 mg PO DAILY [facility] Last Admin: 03/01/18 09:18 Dose: 5 mg Rosuvastatin Calcium (Crestor) 5 mg PO HS [facility] Last Admin: 02/28/18 22:09 Dose: 5 mg Sodium Bicarbonate (Sodium Bicarbonate Tab) 650 mg PO TID [facility] Last Admin: 03/01/18 09:18 Dose: 650 mg Tacrolimus (Prograf Cap) 3 mg PO Q12 [facility] Last Admin: 03/01/18 09:19 Dose: 3 mg - Labs Labs: 03/01/18 07:44 03/01/18 07:44 PT 10.8 SECONDS (9.7-12.2) 02/28/18 11:22 INR 1.0 02/28/18 11:22 APTT 29 SECONDS (21-34) 02/28/18 11:22 - Constitutional Appears: No Acute Distress, Chronically Ill - Head Exam Head Exam: ATRAUMATIC, NORMAL INSPECTION - Eye Exam Eye Exam: EOMI, Normal appearance - Neck Exam Neck Exam: Normal Inspection. absent: Tenderness - Respiratory Exam Respiratory Exam: Rhonchi, NORMAL BREATHING PATTERN - Cardiovascular Exam Cardiovascular Exam: Irregular Rhythm, +S1 - GI/Abdominal Exam GI & Abdominal Exam: Soft. absent: Tenderness - Extremities Exam Extremities Exam: Normal Inspection. absent: Tenderness - Neurological Exam Neurological Exam: Awake, CN II-XII Intact - Skin Skin Exam: Dry, Warm Assessment and Plan (1) Kidney transplant recipient Status: Acute (2) CKD (chronic kidney disease) stage 3, GFR 30-59 ml/min Status: Acute (3) Acute gout of left knee Status: Acute (4) Septic arthritis of knee, left Status: Acute (5) Cardiomyopathy Status: Acute (6) Atrial fibrillation Status: Chronic - Assessment and Plan (Free Text) Plan: IV ABs as per ID repeat chemistries decrease tacro dose add mag ox
[2018-03-01 13:42] LABS: URIC ACID 2.9 mg/dL (3.5-8.5)
--- NOTE | 2018-03-01 13:57 | RAD ---
Date of service: 03/01/2018 PROCEDURE: Intraoperative Fluoroscopy. HISTORY: LONG TIME ANTIBIOTIC FINDINGS: Fluoroscopic assistance was provided for right-sided PICC line placement. Please refer to the operative report from KOTA Jones.
--- NOTE | 2018-03-01 14:06 | CP.PCM.PN ---
Subjective - Date & Time of Evaluation Date of Evaluation: 03/01/18 Time of Evaluation: 14:02 - Subjective Subjective: Family at bedside. Patient drowsy, but easily aroused. Complains of some knee pain. No new complaints Objective - Vital Signs/Intake and Output Vital Signs (last 24 hours): Temp Pulse Resp BP Pulse Ox 99.3 F 91 H 20 144/60 99 03/01/18 10:10 03/01/18 09:17 03/01/18 07:00 03/01/18 09:17 03/01/18 07:00 Intake and Output: 03/01/18 03/01/18 06:59 18:59 Intake Total 1355 Output Total 500 Balance 855 - Medications Medications: Current Medications Acetaminophen (Tylenol 325mg Tab) 650 mg PO Q4 PRN PRN Reason: Fever >100.4 F Last Admin: 02/26/18 13:17 Dose: 650 mg Albuterol/Ipratropium (Duoneb 3 Mg/0.5 Mg (3 Ml) Ud) 3 ml INH RQ6 [facility] Last Admin: 03/01/18 07:40 Dose: 3 ml Calcium/Vitamin D (Oyster Shell Calcium/Vitamin D 500 Mg-200 Iu) 1 tab PO DAILY [facility] Last Admin: 03/01/18 09:19 Dose: 1 tab Clonazepam (Klonopin) 1 mg PO DAILY [facility] Last Admin: 03/01/18 09:18 Dose: 1 mg Dextrose (Dextrose 50% Inj) 0 ml IV STAT PRN; Protocol PRN Reason: Hypoglycemia Protocol Dextrose (Glutose 15) 0 gm PO ONCE PRN; Protocol PRN Reason: Hypoglycemia Protocol Diltiazem HCl (Cardizem Cd) 240 mg PO DAILY [facility] Last Admin: 03/01/18 09:18 Dose: 240 mg Ergocalciferol (Drisdol 50,000 Intl Units Cap) 1 cap PO QWK [facility] Folic Acid (Folic Acid) 1 mg PO DAILY [facility] Last Admin: 03/01/18 09:18 Dose: 1 mg Glucagon (Glucagen Diagnostic Kit) 0 mg IM STAT PRN; Protocol PRN Reason: Hypoglycemia Protocol Home Med (Patient's Own Medication) 1 tab PO DAILY [facility] Last Admin: 03/01/18 09:17 Dose: 1 tab Daptomycin 310 mg/ Sodium (Chloride) 100 mls @ 100 mls/hr IV Q24H [facility] PRN Reason: Protocol Stop: 03/03/18 20:01 Last Admin: 02/28/18 22:08 Dose: 100 mls/hr Sodium Chloride (Sodium Chloride 0.9%) 1,000 mls @ 100 mls/hr IV .Q10H [facility] Last Admin: 03/01/18 02:00 Dose: Not Given Insulin Aspart (Novolog) 0 unit SC ACHS [facility] PRN Reason: Protocol Last Admin: 03/01/18 12:29 Dose: Not Given Levothyroxine Sodium (Synthroid) 175 mcg PO DAILY@0630 [facility] Last Admin: 03/01/18 06:22 Dose: 175 mcg Magnesium Oxide (Mag-Ox) 800 mg PO BID [facility] Montelukast Sodium (Singulair) 10 mg PO DAILY [facility] Last Admin: 03/01/18 09:18 Dose: 10 mg Oxycodone/Acetaminophen (Percocet 5/325 Mg Tab) 1 tab PO Q4H PRN PRN Reason: Pain, moderate (4-7) Stop: 03/02/18 18:54 Last Admin: 03/01/18 09:30 Dose: 1 tab Pantoprazole Sodium (Protonix Ec Tab) 40 mg PO DAILY [facility] Last Admin: 03/01/18 09:18 Dose: 40 mg Potassium Phos/Sodium Phos (Neutra-Phos) 1 pkt PO BID [facility] Last Admin: 03/01/18 09:18 Dose: 1 pkt Prednisone (Prednisone Tab) 5 mg PO DAILY [facility] Last Admin: 03/01/18 09:18 Dose: 5 mg Rosuvastatin Calcium (Crestor) 5 mg PO HS [facility] Last Admin: 02/28/18 22:09 Dose: 5 mg Sodium Bicarbonate (Sodium Bicarbonate Tab) 650 mg PO TID [facility] Last Admin: 03/01/18 13:49 Dose: 650 mg Tacrolimus (Prograf Cap) 2 mg PO Q12 [facility] - Labs Labs: 03/01/18 07:44 03/01/18 07:44 PT 10.8 SECONDS (9.7-12.2) 02/28/18 11:22 INR 1.0 02/28/18 11:22 APTT 29 SECONDS (21-34) 02/28/18 11:22 - Extremities Exam Additional comments: Left knee: +ROM ankle;/toes, sensation intact, dressing intact, mildly tender to knee, knee immob intact, dressing change tomorrow Assessment and Plan (1) Septic arthritis of knee, left Assessment & Plan: POD#1 s/p left knee I&D gross purulence noted in OR per Dr. Tovar cx on admission and on 02/25 no growth f/u intraoperative cx 10-20 WBC per [facility] intraop (high) IV abx x 6 weeks recommended dressing change tomorrow will monitor for reaccumulation d/w DR. Tovar, agrees with above Status: Acute (2) Acute gout of left knee Status: Acute
--- NOTE | 2018-03-01 14:18 | US ---
PROCEDURE: Date of procedure: 03/01/2018 Procedure: 1. Placement of a right arm PICC with ultrasound and fluoroscopic guidance, CPT 23504 Medications: 3cc 1 percent lidocaine Total Fluoro time: 12.9 seconds Radiation: 4.1 mGy EBL: 2 cc HISTORY: Infection requiring long-term IV antibiotics TECHNIQUE: Following informed consent and procedure time-out, the patient was placed supine on the interventional table and the right arm prepped and draped in the usual sterile fashion. Ultrasound showed a patent and compressible right brachial vein. After the skin was anesthetized with lidocaine, the brachial vein was accessed with micro micropuncture technique using ultrasound guidance. A guidewire was then advanced under fluoroscopic guidance into the vein. An image documenting ultrasound guidance for vascular access was permanently saved. There was difficulty advancing guidewire centrally secondary to vein stenosis. The length of the single-lumen 4 [place] PICC was trimmed to 25 centimeters and advanced through a peel-away sheath. The PICC was position with tip of PICC confirm a spot radiograph the subclavian vein. The PICC was secured to the patient's skin. The PICC was flushed. A biopatch and sterile dressing was applied. IMPRESSION: Placement of a single-lumen 4 [place]oth[place] PICC trimmed to 25 centimeters via right brachial vein. The tip of the PICC is confirmed with spot radiograph and is in the subclavian. The patient has stenosis vein
--- NOTE | 2018-03-01 19:04 | CP.PCM.PN ---
Subjective - Date & Time of Evaluation Date of Evaluation: 03/01/18 Time of Evaluation: 09:00 - Subjective Subjective: gross purulence noted await special stain and cultures for AFB/ fungus Objective - Vital Signs/Intake and Output Vital Signs (last 24 hours): Temp Pulse Resp BP Pulse Ox 98.3 F 97 H 20 97/67 L 100 03/01/18 16:00 03/01/18 16:00 03/01/18 16:00 03/01/18 16:00 03/01/18 16:00 - Medications Medications: Current Medications Acetaminophen (Tylenol 325mg Tab) 650 mg PO Q4 PRN PRN Reason: Fever >100.4 F Last Admin: 02/26/18 13:17 Dose: 650 mg Albuterol/Ipratropium (Duoneb 3 Mg/0.5 Mg (3 Ml) Ud) 3 ml INH RQ6 [facility] Last Admin: 03/01/18 07:40 Dose: 3 ml Calcium/Vitamin D (Oyster Shell Calcium/Vitamin D 500 Mg-200 Iu) 1 tab PO DAILY [facility] Last Admin: 03/01/18 09:19 Dose: 1 tab Clonazepam (Klonopin) 1 mg PO DAILY [facility] Last Admin: 03/01/18 09:18 Dose: 1 mg Dextrose (Dextrose 50% Inj) 0 ml IV STAT PRN; Protocol PRN Reason: Hypoglycemia Protocol Dextrose (Glutose 15) 0 gm PO ONCE PRN; Protocol PRN Reason: Hypoglycemia Protocol Diltiazem HCl (Cardizem Cd) 240 mg PO DAILY [facility] Last Admin: 03/01/18 09:18 Dose: 240 mg Ergocalciferol (Drisdol 50,000 Intl Units Cap) 1 cap PO QWK [facility] Folic Acid (Folic Acid) 1 mg PO DAILY [facility] Last Admin: 03/01/18 09:18 Dose: 1 mg Glucagon (Glucagen Diagnostic Kit) 0 mg IM STAT PRN; Protocol PRN Reason: Hypoglycemia Protocol Home Med (Patient's Own Medication) 1 tab PO DAILY [facility] Last Admin: 03/01/18 09:17 Dose: 1 tab Daptomycin 310 mg/ Sodium (Chloride) 100 mls @ 100 mls/hr IV Q24H [facility] PRN Reason: Protocol Stop: 03/03/18 20:01 Last Admin: 02/28/18 22:08 Dose: 100 mls/hr Sodium Chloride (Sodium Chloride 0.9%) 1,000 mls @ 100 mls/hr IV .Q10H [facility] Last Admin: 03/01/18 02:00 Dose: Not Given Insulin Aspart (Novolog) 0 unit SC ACHS [facility] PRN Reason: Protocol Last Admin: 03/01/18 17:15 Dose: 1 units Levothyroxine Sodium (Synthroid) 175 mcg PO DAILY@0630 [facility] Last Admin: 03/01/18 06:22 Dose: 175 mcg Magnesium Oxide (Mag-Ox) 800 mg PO BID [facility] Last Admin: 03/01/18 17:15 Dose: 800 mg Montelukast Sodium (Singulair) 10 mg PO DAILY [facility] Last Admin: 03/01/18 09:18 Dose: 10 mg Oxycodone/Acetaminophen (Percocet 5/325 Mg Tab) 1 tab PO Q4H PRN PRN Reason: Pain, moderate (4-7) Stop: 03/02/18 18:54 Last Admin: 03/01/18 09:30 Dose: 1 tab Pantoprazole Sodium (Protonix Ec Tab) 40 mg PO DAILY [facility] Last Admin: 03/01/18 09:18 Dose: 40 mg Potassium Phos/Sodium Phos (Neutra-Phos) 1 pkt PO BID [facility] Last Admin: 03/01/18 18:22 Dose: 1 pkt Prednisone (Prednisone Tab) 5 mg PO DAILY [facility] Last Admin: 03/01/18 09:18 Dose: 5 mg Rosuvastatin Calcium (Crestor) 5 mg PO HS [facility] Last Admin: 02/28/18 22:09 Dose: 5 mg Sodium Bicarbonate (Sodium Bicarbonate Tab) 650 mg PO TID [facility] Last Admin: 03/01/18 17:14 Dose: 650 mg Tacrolimus (Prograf Cap) 2 mg PO Q12 [facility] - Labs Labs: 03/01/18 07:44 03/01/18 07:44 PT 10.8 SECONDS (9.7-12.2) 02/28/18 11:22 INR 1.0 02/28/18 11:22 APTT 29 SECONDS (21-34) 02/28/18 11:22 Assessment and Plan (1) Bronchiectasis with acute exacerbation Status: Acute (2) COPD bronchitis Status: Acute (3) Cardiomyopathy Status: Acute (4) Chest pain Status: Acute (5) Chronic atrial fibrillation Status: Acute (6) Chronic kidney disease, stage III (moderate) Status: Acute (7) DM type 2 (diabetes mellitus, type 2) Status: Acute (8) Gout Status: Acute
--- NOTE | 2018-03-01 20:27 | OP ---
Copied To: Talon Tovar MD Attending MD: Talon Tovar MD PROCEDURE DATE: 02/28/2018 LOCATION: [facility]. The patient presents as a 72-year-old gentleman with multiple comorbidities including renal transplant with chronic renal disease. The patient presented to the emergency room and then to the ICU with apparently a gouty arthropathy with multiple comorbidities. The patient was admitted to the ICU. The patient was stabilized. Apparently, the patient had been treated with serial aspiration and injection over the last two months by Dr. Ernst Tucker. The patient presented with increasing pain and swelling in the knee. The initial aspect was consistent with gouty arthropathy, which the patient was diagnosed with. Secondary to multiple comorbidities, the patient was treated conservatively. The patient's clinical course with respect to the knee changed over the last one day. The patient presents with increasing swelling and temperature. The diagnosis of septic knee was entertained. Pros, cons, risks and benefits of surgical arthroscopy and lavage were discussed. The possibility of later arthrotomy and irrigation and debridement were discussed. Again, it is to be defined that this patient had a baseline gouty arthropathy with a septic left knee. Pros, cons, risks and benefits were discussed at length. The possibility of infection, thromboembolic disease secondary or tertiary surgeries discussed. The concept of repeating lavage with the arthroscope was discussed and the possibility of an open debridement was discussed. SURGEON: Talon Tovar MD WATER FILTERER: Leslie Vieira, Certified registered nursing first aid teacher. ANESTHESIA: General endotracheal anesthesia. ANESTHESIA ADMINISTERED BY: Christian Smart MD PREOPERATIVE DIAGNOSES: 1. Septic left knee. 2. Gouty arthropathy, left knee. OPERATIVE FINDINGS: 1. Chondrocalcinosis. 2. Purulence. 3. Severe synovitis, tear of medial meniscus, tear of lateral meniscus and severe tricompartmental reactive synovitis. POSTOPERATIVE DIAGNOSES: As above: 1. Septic left knee. 2. Severe tricompartmental synovitis. 3. Chondrocalcinosis (rule out gout). 4. Tear of medial meniscus. 5. Tear of lateral meniscus. OPERATIONS PERFORMED: 1. Arthroscopic tricompartmental synovectomy. 2. Arthroscopic incision and drainage, left knee. 3. Arthroscopic irrigation and debridement (of chondrocalcinosis and the gouty aspect of this presentation). 4. Arthroscopic partial medial meniscectomy. 5. Partial lateral meniscectomy. 6. Application of Yuan Muniz dressing and knee immobilizer. SPECIMENS REMOVED: Synovium and cartilage. BLOOD LOSS: Approximately 10 mL. BLOOD PRODUCTS: No blood products given. DRAINS: No drains. POSTOPERATIVE CONDITION: Guarded/poor. TIME OF SURGERY: 1939. Time in the room 1909. Anesthesia induction time 1909. OPERATIVE PROCEDURE: After having obtained informed consent in the above fashion, in the presence of an approved witness after having identified the site, side and procedure and a critical pause/time-out, after the satisfactory induction of the anesthetic, the patient identified as Sameer Suero in the supine position with all bony prominences well padded, the left lower extremity was prepped and free-draped in the usual fashion for lower extremity surgery. No tourniquet was employed because of this possible septic nature of the presentation. After having identified the site, side, and procedure, and a critical pause/time-out after employing the lateral post, the left lower extremity was prepped and free-draped in the usual fashion for lower extremity surgery. The joint was insufflated with 10 mL of 1% lidocaine without epinephrine. An anterolateral portal was described using #11 blade followed by spreading, followed by introduction of blunt trocar. With the arthroscope anterolaterally, a careful and partial tricompartmental synovitis was noted. On introduction of the arthroscopic cannula, there was an egress of purulent material and synovial fluid. This was sent down to the lab for stat Gram stain with number of white cells per high power field, aerobic, anaerobic, AFB and fungal cultures. This having been accomplished, partial tricompartmental synovectomy was accomplished: Triangulation was accomplished from the anteromedial portal using #18-gauge spinal needle, followed by #11 blade, followed by spreading, followed by introduction of the blunt trocar. With the arthroscope anterolaterally, a careful and partial tricompartmental synovectomy was completed both to improve visualization and to ablate irritative tissue. With the arthroscope anterolaterally, a careful partial tricompartmental synovectomy was completed using a 5.5 [place] shaver. The synovium was very much injected. There was evidence of chondrocalcinosis in the articular cartilage of the knee, most particularly on the femoral condyle. Careful partial tricompartmental synovectomy was completed. Bleeding points were controlled with the arthroscopic wand. A superolateral portal was described using #18-gauge spinal needle, followed by #11 blade, followed by spreading. With the arthroscope anterolaterally, thorough suprapatellar synovectomy was accomplished as well. There were adhesions, fibrin bands and these were removed using a combination of the 5.5 shaver and the 5.2 mm Dyonics suction punch. Irrigation and debridement had been accomplished at this point through all three portals of the purulent material. Irrigation with high flow through the knee was accomplished with high flow to the arthroscopic fluid. Irrigation and debridement was accomplished using the arthroscopic shaver. Partial tricompartmental synovectomy was accomplished using a combination of the 3.4 mm Dyonics suction punch and the 4.0 arthroscopic shaver. The chondrocalcinosis was debrided as well from the femoral condyles to the best of the ability. The anterior cruciate ligament was found to be partially torn, but was essentially preserved. With the arthroscope now anteromedially, the medial compartment was exposed to advantage. There was found to be a complex tear of the medial meniscus. Using a combination of the straight-biting basket forceps and the side-biting basket forceps, a partial medial meniscectomy was accomplished. The arthroscope was transferred anterolaterally and with the surgeon exerting a very gentle valgus stress, the medial compartment was exposed and the inner free edge of the meniscus was smoothed and further meniscal resection was accomplished using a 4.0 [place] shaver. The inner free edge was smoothed using the arthroscopic wand. With the arthroscope now anterolaterally, with the knee in [id number] position, there was found to be a complex tear of the lateral meniscus. Again using a combination of the straight-biting basket forceps and the side-biting basket forceps, a partial lateral meniscectomy was accomplished. Please refer to the video photographs. With the arthroscope anterolaterally, partial lateral meniscectomy was accomplished, inner free edge was smoothed. Partial tricompartmental synovectomy was completed. Incision and drainage had been accomplished with the introduction of the arthroscope. The purulent material was drained and irrigation and debridement was accomplished as well in the above fashion. Partial tricompartmental synovectomy was completed. Again in the suprapatellar pouch, medial and lateral gutters and in the posterior aspect of the fat pad. Hemostasis was controlled with the arthroscopic wand. Medial and lateral meniscectomies having been completed, the chondrocalcinosis having been debrided, the wound was thoroughly irrigated. Closure was in layers with interrupted Vicryl and nylon. Yuan Muniz compression dressing and knee immobilizer was applied. Again as this patient was followed in his hospital course, the patient could not be operated because of his initial comorbidities at this time in the ICU. At that point in time, the diagnosis of sepsis was not entertained. The patient presented as gouty arthropathy. After the period of time in the ICU, the patient did develop a septic knee and as soon as this was diagnosed and a turn in the clinical course was noted, the patient was taken to Surgery as an emergency and was operated in the evening of 02/28/2018. The concept that this sepsis may be life threatening have been discussed with the patient in preoperative informed consent. Talon Tovar MD
--- NOTE | 2018-03-01 22:25 | CP.PCM.PN ---
Subjective - Date & Time of Evaluation Date of Evaluation: 03/01/18 Time of Evaluation: 13:30 - Subjective Subjective: Patient had incision and drainage of purulent materials from the left knee yesterday. Now complaining of left knee pain, but is afebrile and is on IV antibiotics. PICC line was also inserted by Dr Elizondo. Objective - Vital Signs/Intake and Output Vital Signs (last 24 hours): Temp Pulse Resp BP Pulse Ox 98.3 F 97 H 20 97/67 L 100 03/01/18 16:00 03/01/18 16:00 03/01/18 16:00 03/01/18 16:00 03/01/18 16:00 - Medications Medications: Current Medications Acetaminophen (Tylenol 325mg Tab) 650 mg PO Q4 PRN PRN Reason: Fever >100.4 F Last Admin: 02/26/18 13:17 Dose: 650 mg Albuterol/Ipratropium (Duoneb 3 Mg/0.5 Mg (3 Ml) Ud) 3 ml INH RQ6 [facility] Last Admin: 03/01/18 20:55 Dose: 3 ml Calcium/Vitamin D (Oyster Shell Calcium/Vitamin D 500 Mg-200 Iu) 1 tab PO DAILY [facility] Last Admin: 03/01/18 09:19 Dose: 1 tab Clonazepam (Klonopin) 1 mg PO DAILY [facility] Last Admin: 03/01/18 09:18 Dose: 1 mg Dextrose (Dextrose 50% Inj) 0 ml IV STAT PRN; Protocol PRN Reason: Hypoglycemia Protocol Dextrose (Glutose 15) 0 gm PO ONCE PRN; Protocol PRN Reason: Hypoglycemia Protocol Diltiazem HCl (Cardizem Cd) 240 mg PO DAILY [facility] Last Admin: 03/01/18 09:18 Dose: 240 mg Ergocalciferol (Drisdol 50,000 Intl Units Cap) 1 cap PO QWK [facility] Folic Acid (Folic Acid) 1 mg PO DAILY [facility] Last Admin: 03/01/18 09:18 Dose: 1 mg Glucagon (Glucagen Diagnostic Kit) 0 mg IM STAT PRN; Protocol PRN Reason: Hypoglycemia Protocol Home Med (Patient's Own Medication) 1 tab PO DAILY [facility] Last Admin: 03/01/18 09:17 Dose: 1 tab Daptomycin 310 mg/ Sodium (Chloride) 100 mls @ 100 mls/hr IV Q24H [facility] PRN Reason: Protocol Stop: 03/03/18 20:01 Last Admin: 03/01/18 19:56 Dose: 100 mls/hr Sodium Chloride (Sodium Chloride 0.9%) 1,000 mls @ 100 mls/hr IV .Q10H [facility] Last Admin: 03/01/18 02:00 Dose: Not Given Insulin Aspart (Novolog) 0 unit SC ACHS [facility] PRN Reason: Protocol Last Admin: 03/01/18 21:41 Dose: Not Given Levothyroxine Sodium (Synthroid) 175 mcg PO DAILY@0630 [facility] Last Admin: 03/01/18 06:22 Dose: 175 mcg Magnesium Oxide (Mag-Ox) 800 mg PO BID [facility] Last Admin: 03/01/18 17:15 Dose: 800 mg Montelukast Sodium (Singulair) 10 mg PO DAILY [facility] Last Admin: 03/01/18 09:18 Dose: 10 mg Oxycodone/Acetaminophen (Percocet 5/325 Mg Tab) 1 tab PO Q4H PRN PRN Reason: Pain, moderate (4-7) Stop: 03/02/18 18:54 Last Admin: 03/01/18 19:51 Dose: 1 tab Pantoprazole Sodium (Protonix Ec Tab) 40 mg PO DAILY [facility] Last Admin: 03/01/18 09:18 Dose: 40 mg Potassium Phos/Sodium Phos (Neutra-Phos) 1 pkt PO BID [facility] Last Admin: 03/01/18 18:22 Dose: 1 pkt Prednisone (Prednisone Tab) 5 mg PO DAILY [facility] Last Admin: 03/01/18 09:18 Dose: 5 mg Rosuvastatin Calcium (Crestor) 5 mg PO HS [facility] Last Admin: 03/01/18 21:42 Dose: 5 mg Sodium Bicarbonate (Sodium Bicarbonate Tab) 650 mg PO TID [facility] Last Admin: 03/01/18 17:14 Dose: 650 mg Tacrolimus (Prograf Cap) 2 mg PO Q12 [facility] Last Admin: 03/01/18 21:42 Dose: 2 mg - Labs Labs: 03/01/18 07:44 03/01/18 07:44 PT 10.8 SECONDS (9.7-12.2) 02/28/18 11:22 INR 1.0 02/28/18 11:22 APTT 29 SECONDS (21-34) 02/28/18 11:22 - Constitutional Appears: Chronically Ill - Head Exam Head Exam: NORMAL INSPECTION - Eye Exam Eye Exam: Normal appearance - ENT Exam ENT Exam: Mucous Membranes Moist - Neck Exam Neck Exam: Normal Inspection - Respiratory Exam Respiratory Exam: Clear to Ausculation Bilateral - Cardiovascular Exam Cardiovascular Exam: REGULAR RHYTHM, Murmur - GI/Abdominal Exam GI & Abdominal Exam: Soft, Normal Bowel Sounds - Rectal Exam Rectal Exam: Deferred - Exam Exam: NORMAL INSPECTION - Extremities Exam Additional comments: Left knee under bandage. - Back Exam Back Exam: NORMAL INSPECTION - Neurological Exam Additional comments: Arousable. - Psychiatric Exam Psychiatric exam: Anxious - Skin Skin Exam: Dry, Normal Color Assessment and Plan (1) Septic arthritis of knee, left Status: Acute (2) Severe sepsis Assessment & Plan: S/p I &D of the left knee. Awaiting culture of the purulent drainage. Status: Acute (3) History of renal transplant Status: Chronic (4) Hypotension Status: Resolved
[2018-03-02] MEDS: Sodium Chloride 0.9% 1,000 ML IV SCH ×3 (02:33→13:15)
[2018-03-02] MEDS: Albuterol-Ipratrop 3 mg / 0.5 (3 ml) UD INH SCH ×4 (03:19→20:04)
[2018-03-02] MEDS: Levothyroxine 175 MCG TAB PO SCH (05:53)
[2018-03-02] MEDS: (Novolog) Insulin Aspart, Recombinant 100 u/ml 10 ml vial SC SCH ×4 (07:35→21:43)
[2018-03-02 07:43] LABS: ALB/GLOB RATIO 0.9 (1.0-2.1); ALBUMIN 2.7 g/dL (3.5-5.0); ALT/SGPT 17 U/L (21-72); AST/SGOT 16 U/L (17-59); BLOOD UREA NITROGEN 14 mg/dL (9-20); CALCIUM 8.1 mg/dl (8.6-10.4); GFR NON-AFRICAN AMERICAN > 60
--- NOTE | 2018-03-02 08:48 | CP.PCM.PN ---
Subjective - Date & Time of Evaluation Date of Evaluation: 03/02/18 Time of Evaluation: 08:45 - Subjective Subjective: More lethargic, confused now Has been afebrile all C+S negative to date renal function stable mag still low despite po mag Objective - Vital Signs/Intake and Output Vital Signs (last 24 hours): Temp Pulse Resp BP Pulse Ox 97.8 F 95 H 18 103/60 100 03/02/18 07:51 03/02/18 07:51 03/02/18 07:51 03/02/18 07:51 03/02/18 07:51 Intake and Output: 03/02/18 03/02/18 06:59 18:59 Intake Total 1040 Balance 1040 - Medications Medications: Current Medications Acetaminophen (Tylenol 325mg Tab) 650 mg PO Q4 PRN PRN Reason: Fever >100.4 F Last Admin: 02/26/18 13:17 Dose: 650 mg Albuterol/Ipratropium (Duoneb 3 Mg/0.5 Mg (3 Ml) Ud) 3 ml INH RQ6 [facility] Last Admin: 03/02/18 07:18 Dose: 3 ml Calcium/Vitamin D (Oyster Shell Calcium/Vitamin D 500 Mg-200 Iu) 1 tab PO DAILY [facility] Last Admin: 03/01/18 09:19 Dose: 1 tab Clonazepam (Klonopin) 1 mg PO DAILY [facility] Last Admin: 03/01/18 09:18 Dose: 1 mg Dextrose (Dextrose 50% Inj) 0 ml IV STAT PRN; Protocol PRN Reason: Hypoglycemia Protocol Dextrose (Glutose 15) 0 gm PO ONCE PRN; Protocol PRN Reason: Hypoglycemia Protocol Diltiazem HCl (Cardizem Cd) 240 mg PO DAILY [facility] Last Admin: 03/01/18 09:18 Dose: 240 mg Ergocalciferol (Drisdol 50,000 Intl Units Cap) 1 cap PO QWK [facility] Folic Acid (Folic Acid) 1 mg PO DAILY [facility] Last Admin: 03/01/18 09:18 Dose: 1 mg Glucagon (Glucagen Diagnostic Kit) 0 mg IM STAT PRN; Protocol PRN Reason: Hypoglycemia Protocol Home Med (Patient's Own Medication) 1 tab PO DAILY [facility] Last Admin: 03/01/18 09:17 Dose: 1 tab Daptomycin 310 mg/ Sodium (Chloride) 100 mls @ 100 mls/hr IV Q24H [facility] PRN Reason: Protocol Stop: 03/03/18 20:01 Last Admin: 03/01/18 19:56 Dose: 100 mls/hr Sodium Chloride (Sodium Chloride 0.9%) 1,000 mls @ 100 mls/hr IV .Q10H [facility] Last Admin: 03/02/18 07:37 Dose: Not Given Insulin Aspart (Novolog) 0 unit SC ACHS [facility] PRN Reason: Protocol Last Admin: 03/02/18 07:35 Dose: Not Given Levothyroxine Sodium (Synthroid) 175 mcg PO DAILY@0630 [facility] Last Admin: 03/02/18 05:53 Dose: 175 mcg Magnesium Oxide (Mag-Ox) 800 mg PO BID [facility] Last Admin: 03/01/18 17:15 Dose: 800 mg Montelukast Sodium (Singulair) 10 mg PO DAILY [facility] Last Admin: 03/01/18 09:18 Dose: 10 mg Oxycodone/Acetaminophen (Percocet 5/325 Mg Tab) 1 tab PO Q4H PRN PRN Reason: Pain, moderate (4-7) Stop: 03/02/18 18:54 Last Admin: 03/01/18 19:51 Dose: 1 tab Pantoprazole Sodium (Protonix Ec Tab) 40 mg PO DAILY [facility] Last Admin: 03/01/18 09:18 Dose: 40 mg Potassium Phos/Sodium Phos (Neutra-Phos) 1 pkt PO BID [facility] Last Admin: 03/01/18 18:22 Dose: 1 pkt Prednisone (Prednisone Tab) 5 mg PO DAILY [facility] Last Admin: 03/01/18 09:18 Dose: 5 mg Rosuvastatin Calcium (Crestor) 5 mg PO HS [facility] Last Admin: 03/01/18 21:42 Dose: 5 mg Sodium Bicarbonate (Sodium Bicarbonate Tab) 650 mg PO TID [facility] Last Admin: 03/01/18 17:14 Dose: 650 mg Tacrolimus (Prograf Cap) 2 mg PO Q12 [facility] Last Admin: 03/01/18 21:42 Dose: 2 mg - Labs Labs: 03/01/18 07:44 03/02/18 07:06 PT 10.8 SECONDS (9.7-12.2) 02/28/18 11:22 INR 1.0 02/28/18 11:22 APTT 29 SECONDS (21-34) 02/28/18 11:22 - Constitutional Appears: No Acute Distress, Confused, Chronically Ill - Head Exam Head Exam: ATRAUMATIC, NORMAL INSPECTION - Eye Exam Eye Exam: EOMI, Normal appearance - Neck Exam Neck Exam: Normal Inspection. absent: Tenderness - Respiratory Exam Respiratory Exam: Clear to Ausculation Bilateral, NORMAL BREATHING PATTERN - Cardiovascular Exam Cardiovascular Exam: Irregular Rhythm, +S1 - GI/Abdominal Exam GI & Abdominal Exam: Soft. absent: Tenderness - Extremities Exam Extremities Exam: Normal Inspection, Tenderness - Neurological Exam Neurological Exam: Altered - Skin Skin Exam: Dry, Warm Assessment and Plan (1) Kidney transplant recipient Status: Acute (2) CKD (chronic kidney disease) stage 3, GFR 30-59 ml/min Status: Acute (3) Acute gout of left knee Status: Acute (4) Septic arthritis of knee, left Status: Acute (5) Cardiomyopathy Status: Acute (6) Atrial fibrillation Status: Chronic - Assessment and Plan (Free Text) Plan: monitor for knee re-accumulation Replete mag further check repeat tacro level hold clonazepam as pt confused
[2018-03-02] MEDS ORDERED: Magnesium Sulfate 1 gm in D5W 1 GM/100 ML BAG IVPB ONE (08:50)
--- NOTE | 2018-03-02 09:04 | CP.PCM.PN ---
Subjective - Date & Time of Evaluation Date of Evaluation: 03/02/18 Time of Evaluation: 10:16 - Subjective Subjective: Patient more awake, answers some questions. Complains of pain, but does not localize where pain is. at bedside Objective - Vital Signs/Intake and Output Vital Signs (last 24 hours): Temp Pulse Resp BP Pulse Ox 97.8 F 95 H 18 103/60 100 03/02/18 07:51 03/02/18 07:51 03/02/18 07:51 03/02/18 07:51 03/02/18 07:51 Intake and Output: 03/02/18 03/02/18 06:59 18:59 Intake Total 1040 Balance 1040 - Medications Medications: Current Medications Acetaminophen (Tylenol 325mg Tab) 650 mg PO Q4 PRN PRN Reason: Fever >100.4 F Last Admin: 02/26/18 13:17 Dose: 650 mg Albuterol/Ipratropium (Duoneb 3 Mg/0.5 Mg (3 Ml) Ud) 3 ml INH RQ6 [facility] Last Admin: 03/02/18 07:18 Dose: 3 ml Calcium/Vitamin D (Oyster Shell Calcium/Vitamin D 500 Mg-200 Iu) 1 tab PO DAILY [facility] Last Admin: 03/01/18 09:19 Dose: 1 tab Dextrose (Dextrose 50% Inj) 0 ml IV STAT PRN; Protocol PRN Reason: Hypoglycemia Protocol Dextrose (Glutose 15) 0 gm PO ONCE PRN; Protocol PRN Reason: Hypoglycemia Protocol Diltiazem HCl (Cardizem Cd) 240 mg PO DAILY [facility] Last Admin: 03/01/18 09:18 Dose: 240 mg Ergocalciferol (Drisdol 50,000 Intl Units Cap) 1 cap PO QWK [facility] Folic Acid (Folic Acid) 1 mg PO DAILY [facility] Last Admin: 03/01/18 09:18 Dose: 1 mg Glucagon (Glucagen Diagnostic Kit) 0 mg IM STAT PRN; Protocol PRN Reason: Hypoglycemia Protocol Home Med (Patient's Own Medication) 1 tab PO DAILY [facility] Last Admin: 03/01/18 09:17 Dose: 1 tab Daptomycin 310 mg/ Sodium (Chloride) 100 mls @ 100 mls/hr IV Q24H [facility] PRN Reason: Protocol Stop: 03/03/18 20:01 Last Admin: 03/01/18 19:56 Dose: 100 mls/hr Sodium Chloride (Sodium Chloride 0.9%) 1,000 mls @ 100 mls/hr IV .Q10H [facility] Last Admin: 03/02/18 07:37 Dose: Not Given Magnesium Sulfate/Dextrose (Magnesium Sulfate 1 Gm/100 Ml D5w) 1 gm in 100 mls @ 200 mls/hr IVPB ONCE ONE Stop: 03/02/18 09:19 Insulin Aspart (Novolog) 0 unit SC ACHS [facility] PRN Reason: Protocol Last Admin: 03/02/18 07:35 Dose: Not Given Levothyroxine Sodium (Synthroid) 175 mcg PO DAILY@0630 [facility] Last Admin: 03/02/18 05:53 Dose: 175 mcg Magnesium Oxide (Mag-Ox) 800 mg PO BID [facility] Last Admin: 03/01/18 17:15 Dose: 800 mg Montelukast Sodium (Singulair) 10 mg PO DAILY [facility] Last Admin: 03/01/18 09:18 Dose: 10 mg Oxycodone/Acetaminophen (Percocet 5/325 Mg Tab) 1 tab PO Q4H PRN PRN Reason: Pain, moderate (4-7) Stop: 03/02/18 18:54 Last Admin: 03/01/18 19:51 Dose: 1 tab Pantoprazole Sodium (Protonix Ec Tab) 40 mg PO DAILY [facility] Last Admin: 03/01/18 09:18 Dose: 40 mg Potassium Phos/Sodium Phos (Neutra-Phos) 1 pkt PO BID [facility] Last Admin: 03/01/18 18:22 Dose: 1 pkt Prednisone (Prednisone Tab) 5 mg PO DAILY [facility] Last Admin: 03/01/18 09:18 Dose: 5 mg Rosuvastatin Calcium (Crestor) 5 mg PO HS [facility] Last Admin: 03/01/18 21:42 Dose: 5 mg Sodium Bicarbonate (Sodium Bicarbonate Tab) 650 mg PO TID [facility] Last Admin: 03/01/18 17:14 Dose: 650 mg Tacrolimus (Prograf Cap) 2 mg PO Q12 [facility] Last Admin: 03/01/18 21:42 Dose: 2 mg - Labs Labs: 03/01/18 07:44 03/02/18 07:06 PT 10.8 SECONDS (9.7-12.2) 02/28/18 11:22 INR 1.0 02/28/18 11:22 APTT 29 SECONDS (21-34) 02/28/18 11:22 - Extremities Exam Additional comments: Left knee: scant sang drainage from incision site, moderate effusion, knee not any warmer than rest of leg, complains of pain with attempts of ROM No erythema calves soft NT neg homans knee immobilizer intact +ROM ankle/toes, sensation intact Assessment and Plan (1) Septic arthritis of knee, left Assessment & Plan: f/u cultures, negative sending afb and fungal as well (micro called, still have intraoperative specimen and can add on), d/w Dr. Nash who also requested afb/fungal PT/OT VTE proph Encourage OOB will monitor knee, still swollen and painful, will reeval tomorrow again as potential for reaccumulation d/w Dr. Tovar, agrees with above Status: Acute (2) Acute gout of left knee Status: Acute
[2018-03-02] MEDS: Magnesium Oxide 400 mg Tab UD PO SCH ×2 (10:40→17:00)
[2018-03-02] MEDS: diltiaZEM 240 mg/24 Hours CD Cap PO SCH (10:40)
[2018-03-02] MEDS: Calcium-Vit D 500 mg-200 Units Tab UD PO SCH (10:40)
[2018-03-02] MEDS: Potassium & Sodium Phosphate PO SCH ×2 (10:40→17:00)
[2018-03-02] MEDS: Pantoprazole 40 mg EC Tab PO SCH (10:40)
[2018-03-02] MEDS: Febuxostat [Uloric] 80 MG PO SCH (10:41)
[2018-03-02] MEDS: Oxycodone/Acetaminophen 5/325 mg Tab PO PRN ×2 (11:06→16:58)
[2018-03-02 11:25] LABS: BASO # 0.1 K/uL (0.0-0.2); BASO % 0.9 % (0.0-2.0); EOS # 0.2 K/uL (0.0-0.7); EOS % 1.5 % (0.0-4.0); HEMOGLOBIN 10.1 g/dL (12.0-18.0); LYMPH # 0.8 K/uL (1.0-4.3); LYMPH % 7.9 % (20.0-40.0); MEAN CELL VOLUME 78.7 fL (80.0-94.0); MEAN CORPUSCULAR HEMOGLOBIN 25.7 pg (27.0-31.0); MEAN CORPUSCULAR HGB CONC 32.7 g/dL (33.0-37.0); MEAN PLATELET VOLUME 7.5 fL (7.2-11.7); MONO # 0.6 K/uL (0.0-0.8); MONO % 5.9 % (0.0-10.0); NEUT # 8.7 K/uL (1.8-7.0); NEUT % 83.8 % (50.0-75.0); PLATELET COUNT 259 K/uL (130-400); RBC 3.91 Mil/uL (4.40-5.90); RED CELL DISTRIBUTION WIDTH 19.4 % (11.5-14.5); WHITE BLOOD COUNT 10.4 K/uL (4.8-10.8)
[2018-03-02 12:06] LABS: EOSINOPHIL 1 % (0-4); LYMPHOCYTE 10 % (20-40); MONOCYTE 7 % (0-10); PLATELET ESTIMATE NORMAL (NORMAL); TOTAL CELLS COUNTED 100
[2018-03-02 12:07] LABS: ANISOCYTOSIS SLIGHT; HYPOCHROMIC SLIGHT; NEUTROPHIL 82 % (50-75); POIKILOCYTOSIS SLIGHT; TEARDROP CELLS SLIGHT
[2018-03-02 12:08] LABS: BURR CELLS SLIGHT; OVALOCYTES SLIGHT
--- NOTE | 2018-03-02 18:07 | CP.PCM.PN ---
Subjective - Date & Time of Evaluation Date of Evaluation: 03/02/18 Time of Evaluation: 18:05 - Subjective Subjective: Patient slightly confused, complaining of left knee pain, but is afebrile and in no respiratory distress. Objective - Vital Signs/Intake and Output Vital Signs (last 24 hours): Temp Pulse Resp BP Pulse Ox 98.5 F 89 18 117/58 L 100 03/02/18 15:00 03/02/18 15:00 03/02/18 15:00 03/02/18 15:00 03/02/18 15:00 Intake and Output: 03/02/18 03/02/18 06:59 18:59 Intake Total 1040 1500 Balance 1040 1500 - Medications Medications: Current Medications Acetaminophen (Tylenol 325mg Tab) 650 mg PO Q4 PRN PRN Reason: Fever >100.4 F Last Admin: 02/26/18 13:17 Dose: 650 mg Albuterol/Ipratropium (Duoneb 3 Mg/0.5 Mg (3 Ml) Ud) 3 ml INH RQ6 [facility] Last Admin: 03/02/18 13:19 Dose: 3 ml Calcium/Vitamin D (Oyster Shell Calcium/Vitamin D 500 Mg-200 Iu) 1 tab PO DAILY [facility] Last Admin: 03/02/18 10:40 Dose: 1 tab Dextrose (Dextrose 50% Inj) 0 ml IV STAT PRN; Protocol PRN Reason: Hypoglycemia Protocol Dextrose (Glutose 15) 0 gm PO ONCE PRN; Protocol PRN Reason: Hypoglycemia Protocol Diltiazem HCl (Cardizem Cd) 240 mg PO DAILY [facility] Last Admin: 03/02/18 10:40 Dose: 240 mg Ergocalciferol (Drisdol 50,000 Intl Units Cap) 1 cap PO QWK [facility] Folic Acid (Folic Acid) 1 mg PO DAILY [facility] Last Admin: 03/02/18 10:40 Dose: 1 mg Glucagon (Glucagen Diagnostic Kit) 0 mg IM STAT PRN; Protocol PRN Reason: Hypoglycemia Protocol Home Med (Patient's Own Medication) 1 tab PO DAILY [facility] Last Admin: 03/02/18 10:41 Dose: 1 tab Daptomycin 310 mg/ Sodium (Chloride) 100 mls @ 100 mls/hr IV Q24H [facility] PRN Reason: Protocol Stop: 03/03/18 20:01 Last Admin: 08/22/18 19:56 Dose: 100 mls/hr Sodium Chloride (Sodium Chloride 0.9%) 1,000 mls @ 100 mls/hr IV .Q10H [facility] Last Admin: 03/02/18 13:15 Dose: 100 mls/hr Insulin Aspart (Novolog) 0 unit SC ACHS [facility] PRN Reason: Protocol Last Admin: 03/02/18 16:57 Dose: 2 units Levothyroxine Sodium (Synthroid) 175 mcg PO DAILY@0630 [facility] Last Admin: 03/02/18 05:53 Dose: 175 mcg Magnesium Oxide (Mag-Ox) 800 mg PO BID [facility] Last Admin: 03/02/18 17:00 Dose: 800 mg Montelukast Sodium (Singulair) 10 mg PO DAILY [facility] Last Admin: 03/02/18 10:40 Dose: 10 mg Oxycodone/Acetaminophen (Percocet 5/325 Mg Tab) 1 tab PO Q4H PRN PRN Reason: Pain, moderate (4-7) Stop: 03/02/18 18:54 Last Admin: 03/02/18 16:58 Dose: 1 tab Pantoprazole Sodium (Protonix Ec Tab) 40 mg PO DAILY [facility] Last Admin: 03/02/18 10:40 Dose: 40 mg Potassium Phos/Sodium Phos (Neutra-Phos) 1 pkt PO BID [facility] Last Admin: 03/02/18 17:00 Dose: 1 pkt Prednisone (Prednisone Tab) 5 mg PO DAILY [facility] Last Admin: 03/02/18 10:40 Dose: 5 mg Rosuvastatin Calcium (Crestor) 5 mg PO HS [facility] Last Admin: 03/01/18 21:42 Dose: 5 mg Sodium Bicarbonate (Sodium Bicarbonate Tab) 650 mg PO TID [facility] Last Admin: 03/02/18 17:00 Dose: 650 mg Tacrolimus (Prograf Cap) 2 mg PO Q12 [facility] Last Admin: 03/02/18 10:40 Dose: 2 mg - Labs Labs: 03/02/18 11:15 03/02/18 07:06 PT 10.8 SECONDS (9.7-12.2) 02/28/18 11:22 INR 1.0 02/28/18 11:22 APTT 29 SECONDS (21-34) 02/28/18 11:22 - Constitutional Appears: No Acute Distress, Chronically Ill - Head Exam Head Exam: NORMAL INSPECTION - Eye Exam Eye Exam: Normal appearance - ENT Exam ENT Exam: Normal Exam - Neck Exam Neck Exam: Normal Inspection - Respiratory Exam Respiratory Exam: Rhonchi Additional comments: Few rhonchi heard at both bases. - Cardiovascular Exam Cardiovascular Exam: REGULAR RHYTHM, Murmur - GI/Abdominal Exam GI & Abdominal Exam: Soft, Normal Bowel Sounds - Rectal Exam Rectal Exam: Deferred - Exam Exam: NORMAL INSPECTION - Back Exam Back Exam: NORMAL INSPECTION - Neurological Exam Neurological Exam: Alert, Awake Additional comments: Slightly confused. Assessment and Plan (1) Septic arthritis of knee, left Assessment & Plan: On IV antibiotics. Status: Acute (2) Severe sepsis Status: Acute (3) History of renal transplant Status: Chronic (4) Hypotension Status: Resolved
--- NOTE | 2018-03-02 19:18 | CP.PCM.PN ---
Subjective - Date & Time of Evaluation Date of Evaluation: 03/02/18 Time of Evaluation: 09:00 - Subjective Subjective: no fever on cubicin await special stains and smears consider further imaging Objective - Vital Signs/Intake and Output Vital Signs (last 24 hours): Temp Pulse Resp BP Pulse Ox 98.5 F 89 18 117/58 L 100 03/02/18 15:00 03/02/18 15:00 03/02/18 15:00 03/02/18 15:00 03/02/18 15:00 Intake and Output: 03/02/18 03/03/18 18:59 06:59 Intake Total 1500 Balance 1500 - Medications Medications: Current Medications Acetaminophen (Tylenol 325mg Tab) 650 mg PO Q4 PRN PRN Reason: Fever >100.4 F Last Admin: 02/26/18 13:17 Dose: 650 mg Albuterol/Ipratropium (Duoneb 3 Mg/0.5 Mg (3 Ml) Ud) 3 ml INH RQ6 [facility] Last Admin: 03/02/18 13:19 Dose: 3 ml Calcium/Vitamin D (Oyster Shell Calcium/Vitamin D 500 Mg-200 Iu) 1 tab PO DAILY [facility] Last Admin: 03/02/18 10:40 Dose: 1 tab Dextrose (Dextrose 50% Inj) 0 ml IV STAT PRN; Protocol PRN Reason: Hypoglycemia Protocol Dextrose (Glutose 15) 0 gm PO ONCE PRN; Protocol PRN Reason: Hypoglycemia Protocol Diltiazem HCl (Cardizem Cd) 240 mg PO DAILY [facility] Last Admin: 03/02/18 10:40 Dose: 240 mg Ergocalciferol (Drisdol 50,000 Intl Units Cap) 1 cap PO QWK [facility] Folic Acid (Folic Acid) 1 mg PO DAILY [facility] Last Admin: 03/02/18 10:40 Dose: 1 mg Glucagon (Glucagen Diagnostic Kit) 0 mg IM STAT PRN; Protocol PRN Reason: Hypoglycemia Protocol Heparin Sodium (Porcine) (Heparin) 5,000 units SC Q8 [facility] Home Med (Patient's Own Medication) 1 tab PO DAILY [facility] Last Admin: 03/02/18 10:41 Dose: 1 tab Daptomycin 310 mg/ Sodium (Chloride) 100 mls @ 100 mls/hr IV Q24H [facility] PRN Reason: Protocol Stop: 03/03/18 20:01 Last Admin: 03/01/18 19:56 Dose: 100 mls/hr Sodium Chloride (Sodium Chloride 0.9%) 1,000 mls @ 100 mls/hr IV .Q10H [facility] Last Admin: 03/02/18 13:15 Dose: 100 mls/hr Insulin Aspart (Novolog) 0 unit SC ACHS [facility] PRN Reason: Protocol Last Admin: 03/02/18 16:57 Dose: 2 units Levothyroxine Sodium (Synthroid) 175 mcg PO DAILY@0630 [facility] Last Admin: 03/02/18 05:53 Dose: 175 mcg Magnesium Oxide (Mag-Ox) 800 mg PO BID [facility] Last Admin: 03/02/18 17:00 Dose: 800 mg Montelukast Sodium (Singulair) 10 mg PO DAILY [facility] Last Admin: 03/02/18 10:40 Dose: 10 mg Pantoprazole Sodium (Protonix Ec Tab) 40 mg PO DAILY [facility] Last Admin: 03/02/18 10:40 Dose: 40 mg Potassium Phos/Sodium Phos (Neutra-Phos) 1 pkt PO BID [facility] Last Admin: 03/02/18 17:00 Dose: 1 pkt Prednisone (Prednisone Tab) 5 mg PO DAILY [facility] Last Admin: 03/02/18 10:40 Dose: 5 mg Rosuvastatin Calcium (Crestor) 5 mg PO HS [facility] Last Admin: 03/01/18 21:42 Dose: 5 mg Sodium Bicarbonate (Sodium Bicarbonate Tab) 650 mg PO TID [facility] Last Admin: 03/02/18 17:00 Dose: 650 mg Tacrolimus (Prograf Cap) 2 mg PO Q12 [facility] Last Admin: 03/02/18 10:40 Dose: 2 mg - Labs Labs: 03/02/18 11:15 03/02/18 07:06 PT 10.8 SECONDS (9.7-12.2) 02/28/18 11:22 INR 1.0 02/28/18 11:22 APTT 29 SECONDS (21-34) 02/28/18 11:22 - Constitutional Appears: Non-toxic, Chronically Ill - Head Exam Head Exam: NORMOCEPHALIC - Eye Exam Eye Exam: PERRL - ENT Exam ENT Exam: Mucous Membranes Dry - Neck Exam Neck Exam: absent: Lymphadenopathy - Respiratory Exam Respiratory Exam: Decreased Breath Sounds - Cardiovascular Exam Cardiovascular Exam: REGULAR RHYTHM - GI/Abdominal Exam GI & Abdominal Exam: Distended, Soft Assessment and Plan (1) Bronchiectasis with acute exacerbation Status: Acute (2) COPD bronchitis Status: Acute (3) Cardiomyopathy Status: Acute (4) Chest pain Status: Acute (5) Chronic atrial fibrillation Status: Acute (6) Chronic kidney disease, stage III (moderate) Status: Acute (7) DM type 2 (diabetes mellitus, type 2) Status: Acute (8) Gout Status: Acute
[2018-03-03] MEDS: Albuterol-Ipratrop 3 mg / 0.5 (3 ml) UD INH SCH ×3 (02:34→14:10)
[2018-03-03] MEDS: Sodium Chloride 0.9% 1,000 ML IV SCH ×2 (05:41→10:29)
[2018-03-03] MEDS: Levothyroxine 175 MCG TAB PO SCH (06:20)
[2018-03-03] MEDS: (Novolog) Insulin Aspart, Recombinant 100 u/ml 10 ml vial SC SCH ×4 (07:09→21:32)
[2018-03-03 07:40] LABS: BASO % 0.4 % (0.0-2.0); EOS # 0.1 K/uL (0.0-0.7); EOS % 1.2 % (0.0-4.0); HEMOGLOBIN 8.8 g/dL (12.0-18.0); LYMPH # 0.6 K/uL (1.0-4.3); LYMPH % 7.4 % (20.0-40.0); MEAN CELL VOLUME 78.8 fL (80.0-94.0); MEAN CORPUSCULAR HEMOGLOBIN 25.6 pg (27.0-31.0); MEAN CORPUSCULAR HGB CONC 32.5 g/dL (33.0-37.0); MEAN PLATELET VOLUME 7.5 fL (7.2-11.7); MONO # 0.4 K/uL (0.0-0.8); MONO % 5.8 % (0.0-10.0); NEUT # 6.6 K/uL (1.8-7.0); NEUT % 85.2 % (50.0-75.0); PLATELET COUNT 241 K/uL (130-400); RBC 3.42 Mil/uL (4.40-5.90); RED CELL DISTRIBUTION WIDTH 19.3 % (11.5-14.5); WHITE BLOOD COUNT 7.7 K/uL (4.8-10.8)
[2018-03-03 07:50] LABS: ALB/GLOB RATIO 0.9 (1.0-2.1); ALBUMIN 2.6 g/dL (3.5-5.0); ALT/SGPT 22 U/L (21-72); AST/SGOT 36 U/L (17-59); BLOOD UREA NITROGEN 14 mg/dL (9-20); CALCIUM 8.2 mg/dl (8.6-10.4); GFR NON-AFRICAN AMERICAN > 60; URIC ACID 2.9 mg/dL (3.5-8.5)
--- NOTE | 2018-03-03 08:33 | CP.PCM.PN ---
Subjective - Date & Time of Evaluation Date of Evaluation: 03/03/18 Time of Evaluation: 08:30 - Subjective Subjective: Patient still complaining of left knee pain. He says it feels better than it did before though. No new complaints. Patient more awake and alert today. Objective - Vital Signs/Intake and Output Vital Signs (last 24 hours): Temp Pulse Resp BP Pulse Ox 97.6 F 85 20 137/56 L 100 03/03/18 00:00 03/03/18 00:00 03/03/18 00:00 03/03/18 00:00 03/03/18 00:00 Intake and Output: 03/03/18 03/03/18 06:59 18:59 Intake Total 2300 Balance 2300 - Medications Medications: Current Medications Acetaminophen (Tylenol 325mg Tab) 650 mg PO Q4 PRN PRN Reason: Fever >100.4 F Last Admin: 03/03/18 01:08 Dose: 650 mg Albuterol/Ipratropium (Duoneb 3 Mg/0.5 Mg (3 Ml) Ud) 3 ml INH RQ6 [facility] Last Admin: 03/03/18 08:29 Dose: 3 ml Calcium/Vitamin D (Oyster Shell Calcium/Vitamin D 500 Mg-200 Iu) 1 tab PO DAILY [facility] Last Admin: 03/02/18 10:40 Dose: 1 tab Dextrose (Dextrose 50% Inj) 0 ml IV STAT PRN; Protocol PRN Reason: Hypoglycemia Protocol Dextrose (Glutose 15) 0 gm PO ONCE PRN; Protocol PRN Reason: Hypoglycemia Protocol Diltiazem HCl (Cardizem Cd) 240 mg PO DAILY [facility] Last Admin: 03/02/18 10:40 Dose: 240 mg Ergocalciferol (Drisdol 50,000 Intl Units Cap) 1 cap PO QWK [facility] Folic Acid (Folic Acid) 1 mg PO DAILY [facility] Last Admin: 03/02/18 10:40 Dose: 1 mg Glucagon (Glucagen Diagnostic Kit) 0 mg IM STAT PRN; Protocol PRN Reason: Hypoglycemia Protocol Heparin Sodium (Porcine) (Heparin) 5,000 units SC Q8 [facility] Last Admin: 03/03/18 06:20 Dose: 5,000 units Home Med (Patient's Own Medication) 1 tab PO DAILY [facility] Last Admin: 03/02/18 10:41 Dose: 1 tab Daptomycin 310 mg/ Sodium (Chloride) 100 mls @ 100 mls/hr IV Q24H [facility] PRN Reason: Protocol Stop: 03/03/18 20:01 Last Admin: 03/02/18 19:45 Dose: 100 mls/hr Sodium Chloride (Sodium Chloride 0.9%) 1,000 mls @ 100 mls/hr IV .Q10H [facility] Last Admin: 03/03/18 05:41 Dose: Not Given Insulin Aspart (Novolog) 0 unit SC ACHS [facility] PRN Reason: Protocol Last Admin: 03/03/18 07:09 Dose: Not Given Levothyroxine Sodium (Synthroid) 175 mcg PO DAILY@0630 [facility] Last Admin: 03/03/18 06:20 Dose: 175 mcg Magnesium Oxide (Mag-Ox) 800 mg PO BID [facility] Last Admin: 03/02/18 17:00 Dose: 800 mg Montelukast Sodium (Singulair) 10 mg PO DAILY [facility] Last Admin: 03/02/18 10:40 Dose: 10 mg Pantoprazole Sodium (Protonix Ec Tab) 40 mg PO DAILY [facility] Last Admin: 03/02/18 10:40 Dose: 40 mg Potassium Phos/Sodium Phos (Neutra-Phos) 1 pkt PO BID [facility] Last Admin: 03/02/18 17:00 Dose: 1 pkt Prednisone (Prednisone Tab) 5 mg PO DAILY [facility] Last Admin: 03/02/18 10:40 Dose: 5 mg Rosuvastatin Calcium (Crestor) 5 mg PO HS [facility] Last Admin: 03/02/18 21:43 Dose: 5 mg Sodium Bicarbonate (Sodium Bicarbonate Tab) 650 mg PO TID [facility] Last Admin: 03/02/18 17:00 Dose: 650 mg Tacrolimus (Prograf Cap) 2 mg PO Q12 [facility] Last Admin: 03/02/18 21:49 Dose: 2 mg - Labs Labs: 03/03/18 07:15 03/03/18 07:15 PT 10.8 SECONDS (9.7-12.2) 02/28/18 11:22 INR 1.0 02/28/18 11:22 APTT 29 SECONDS (21-34) 02/28/18 11:22 - Extremities Exam Additional comments: Left knee: still moderate effusion, no change since yesterday. No erythema, incisions dry. Patient tolerated dressing change much better than yesterday, and complains of mild pain with PROM 5-30 degrees, which is improvement from yesterday. He says it feels better today when I bend it. (yesterday patient did not tolerate any PROM) calves soft NT neg homans +DP/PT pulses sensation intact +ROM ankle/toes Assessment and Plan (1) Septic arthritis of knee, left Assessment & Plan: POD#3 s/p I&D f/u cx, fungal, afb no fungal elements seen all bacterial cx prelim neg afb sent to outside lab knee still appears swollen, but pain and ROM improved a little today will monitor for increased swelling/need for repeat wash out d/w Dr. Tovar, agrees with above Status: Acute (2) Acute gout of left knee Status: Acute
[2018-03-03 10:13] LABS: ANISOCYTOSIS MODERATE; BANDS 5 % (0-2); EOSINOPHIL 2 % (0-4); LYMPHOCYTE 7 % (20-40); MONOCYTE 5 % (0-10); NEUTROPHIL 81 % (50-75); PLATELET ESTIMATE NORMAL (NORMAL); TOTAL CELLS COUNTED 100
[2018-03-03 10:14] LABS: BURR CELLS SLIGHT; OVALOCYTES SLIGHT; POIKILOCYTOSIS SLIGHT
[2018-03-03] MEDS: Calcium-Vit D 500 mg-200 Units Tab UD PO SCH (10:18)
[2018-03-03] MEDS: diltiaZEM 240 mg/24 Hours CD Cap PO SCH (10:18)
[2018-03-03] MEDS: Febuxostat [Uloric] 80 MG PO SCH (10:19)
[2018-03-03] MEDS: Magnesium Oxide 400 mg Tab UD PO SCH ×2 (10:19→17:48)
[2018-03-03] MEDS: Pantoprazole 40 mg EC Tab PO SCH (10:19)
[2018-03-03] MEDS: Potassium & Sodium Phosphate PO SCH ×2 (10:19→17:47)
[2018-03-03] MEDS: Oxycodone/Acetaminophen 5/325 mg Tab PO PRN (11:19)
--- NOTE | 2018-03-03 13:47 | CP.PCM.PN ---
Subjective - Date & Time of Evaluation Date of Evaluation: 03/03/18 Time of Evaluation: 13:44 - Subjective Subjective: remains afebrile Still weak, less confused off clonazepam tacro levels still elevated- due to diltiazem use- previously dose decreased all C+S negative from knee wound renal function stable, lytes acceptable Objective - Vital Signs/Intake and Output Vital Signs (last 24 hours): Temp Pulse Resp BP Pulse Ox 97.6 F 72 20 140/75 97 03/03/18 07:23 03/03/18 10:17 03/03/18 00:00 03/03/18 10:17 03/03/18 07:23 Intake and Output: 03/03/18 03/03/18 06:59 18:59 Intake Total 2300 Balance 2300 - Medications Medications: Current Medications Acetaminophen (Tylenol 325mg Tab) 650 mg PO Q4 PRN PRN Reason: Fever >100.4 F Last Admin: 03/03/18 01:08 Dose: 650 mg Albuterol/Ipratropium (Duoneb 3 Mg/0.5 Mg (3 Ml) Ud) 3 ml INH RQ6 [facility] Last Admin: 03/03/18 08:29 Dose: 3 ml Calcium/Vitamin D (Oyster Shell Calcium/Vitamin D 500 Mg-200 Iu) 1 tab PO DAILY [facility] Last Admin: 03/03/18 10:18 Dose: 1 tab Dextrose (Dextrose 50% Inj) 0 ml IV STAT PRN; Protocol PRN Reason: Hypoglycemia Protocol Dextrose (Glutose 15) 0 gm PO ONCE PRN; Protocol PRN Reason: Hypoglycemia Protocol Diltiazem HCl (Cardizem Cd) 240 mg PO DAILY [facility] Last Admin: 03/03/18 10:18 Dose: 240 mg Ergocalciferol (Drisdol 50,000 Intl Units Cap) 1 cap PO QWK [facility] Folic Acid (Folic Acid) 1 mg PO DAILY [facility] Last Admin: 03/03/18 10:19 Dose: 1 mg Glucagon (Glucagen Diagnostic Kit) 0 mg IM STAT PRN; Protocol PRN Reason: Hypoglycemia Protocol Heparin Sodium (Porcine) (Heparin) 5,000 units SC Q8 [facility] Last Admin: 03/03/18 13:29 Dose: 5,000 units Home Med (Patient's Own Medication) 1 tab PO DAILY [facility] Last Admin: 03/03/18 10:19 Dose: 1 tab Daptomycin 310 mg/ Sodium (Chloride) 100 mls @ 100 mls/hr IV Q24H [facility] PRN Reason: Protocol Stop: 03/03/18 20:01 Last Admin: 03/02/18 19:45 Dose: 100 mls/hr Insulin Aspart (Novolog) 0 unit SC ACHS [facility] PRN Reason: Protocol Last Admin: 03/03/18 12:30 Dose: Not Given Levothyroxine Sodium (Synthroid) 175 mcg PO DAILY@0630 [facility] Last Admin: 03/03/18 06:20 Dose: 175 mcg Magnesium Oxide (Mag-Ox) 800 mg PO BID [facility] Last Admin: 03/03/18 10:19 Dose: 800 mg Montelukast Sodium (Singulair) 10 mg PO DAILY [facility] Last Admin: 03/03/18 10:18 Dose: 10 mg Oxycodone/Acetaminophen (Percocet 5/325 Mg Tab) 1 tab PO Q4H PRN PRN Reason: Pain, moderate (4-7) Stop: 03/06/18 11:05 Last Admin: 03/03/18 11:19 Dose: 1 tab Pantoprazole Sodium (Protonix Ec Tab) 40 mg PO DAILY [facility] Last Admin: 03/03/18 10:19 Dose: 40 mg Potassium Phos/Sodium Phos (Neutra-Phos) 1 pkt PO BID [facility] Last Admin: 03/03/18 10:19 Dose: 1 pkt Prednisone (Prednisone Tab) 5 mg PO DAILY [facility] Last Admin: 03/03/18 10:21 Dose: 5 mg Rosuvastatin Calcium (Crestor) 5 mg PO HS [facility] Last Admin: 03/02/18 21:43 Dose: 5 mg Sodium Bicarbonate (Sodium Bicarbonate Tab) 650 mg PO TID [facility] Last Admin: 03/03/18 13:30 Dose: 650 mg Tacrolimus (Prograf Cap) 2 mg PO Q12 [facility] Last Admin: 03/03/18 10:18 Dose: 2 mg - Labs Labs: 03/03/18 07:15 03/03/18 07:15 PT 10.8 SECONDS (9.7-12.2) 02/28/18 11:22 INR 1.0 02/28/18 11:22 APTT 29 SECONDS (21-34) 02/28/18 11:22 - Constitutional Appears: No Acute Distress - Head Exam Head Exam: ATRAUMATIC, NORMAL INSPECTION - Eye Exam Eye Exam: EOMI, Normal appearance - Neck Exam Neck Exam: Normal Inspection. absent: Tenderness - Respiratory Exam Respiratory Exam: Clear to Ausculation Bilateral, NORMAL BREATHING PATTERN - Cardiovascular Exam Cardiovascular Exam: REGULAR RHYTHM, +S1 - GI/Abdominal Exam GI & Abdominal Exam: Soft. absent: Tenderness - Extremities Exam Extremities Exam: Normal Inspection. absent: Tenderness - Neurological Exam Neurological Exam: Awake, CN II-XII Intact - Skin Skin Exam: Dry, Warm Assessment and Plan (1) Kidney transplant recipient Status: Acute (2) CKD (chronic kidney disease) stage 3, GFR 30-59 ml/min Status: Acute (3) Acute gout of left knee Status: Acute (4) Septic arthritis of knee, left Status: Acute (5) Cardiomyopathy Status: Acute (6) Atrial fibrillation Status: Chronic - Assessment and Plan (Free Text) Plan: continue mag repletion follow up tacro levels IV ABs as per ID for sacral wound care follow up labs
--- NOTE | 2018-03-03 19:20 | CP.PCM.PN ---
Subjective - Date & Time of Evaluation Date of Evaluation: 03/03/18 Time of Evaluation: 08:00 - Subjective Subjective: left knee effusion + AFB 2+ has hx TB 1975 ( treated) could also be nocardia await ID of organism will start INH RIF ETH but need to monitor tacrolimus levels Objective - Vital Signs/Intake and Output Vital Signs (last 24 hours): Temp Pulse Resp BP Pulse Ox 99.4 F 96 H 18 143/79 99 03/03/18 15:00 03/03/18 15:00 03/03/18 15:00 03/03/18 15:00 03/03/18 15:00 - Medications Medications: Current Medications Acetaminophen (Tylenol 325mg Tab) 650 mg PO Q4 PRN PRN Reason: Fever >100.4 F Last Admin: 03/03/18 01:08 Dose: 650 mg Calcium/Vitamin D (Oyster Shell Calcium/Vitamin D 500 Mg-200 Iu) 1 tab PO DAILY [facility] Last Admin: 03/03/18 10:18 Dose: 1 tab Dextrose (Dextrose 50% Inj) 0 ml IV STAT PRN; Protocol PRN Reason: Hypoglycemia Protocol Dextrose (Glutose 15) 0 gm PO ONCE PRN; Protocol PRN Reason: Hypoglycemia Protocol Diltiazem HCl (Cardizem Cd) 240 mg PO DAILY [facility] Last Admin: 03/03/18 10:18 Dose: 240 mg Ergocalciferol (Drisdol 50,000 Intl Units Cap) 1 cap PO QWK [facility] Ethambutol HCl (Myambutol) 400 mg PO Q8H [facility] PRN Reason: Protocol Folic Acid (Folic Acid) 1 mg PO DAILY [facility] Last Admin: 03/03/18 10:19 Dose: 1 mg Glucagon (Glucagen Diagnostic Kit) 0 mg IM STAT PRN; Protocol PRN Reason: Hypoglycemia Protocol Heparin Sodium (Porcine) (Heparin) 5,000 units SC Q8 [facility] Last Admin: 03/03/18 13:29 Dose: 5,000 units Home Med (Patient's Own Medication) 1 tab PO DAILY [facility] Last Admin: 03/03/18 10:19 Dose: 1 tab Daptomycin 310 mg/ Sodium (Chloride) 100 mls @ 100 mls/hr IV Q24H [facility] PRN Reason: Protocol Stop: 03/03/18 20:01 Last Admin: 03/02/18 19:45 Dose: 100 mls/hr Insulin Aspart (Novolog) 0 unit SC ACHS [facility] PRN Reason: Protocol Last Admin: 03/03/18 17:20 Dose: 2 units Isoniazid (Niazid) 300 mg PO DAILY [facility] PRN Reason: Protocol Levothyroxine Sodium (Synthroid) 175 mcg PO DAILY@0630 [facility] Last Admin: 03/03/18 06:20 Dose: 175 mcg Magnesium Oxide (Mag-Ox) 800 mg PO BID [facility] Last Admin: 03/03/18 17:48 Dose: 800 mg Montelukast Sodium (Singulair) 10 mg PO DAILY [facility] Last Admin: 03/03/18 10:18 Dose: 10 mg Oxycodone/Acetaminophen (Percocet 5/325 Mg Tab) 1 tab PO Q4H PRN PRN Reason: Pain, moderate (4-7) Stop: 03/06/18 11:05 Last Admin: 03/03/18 11:19 Dose: 1 tab Pantoprazole Sodium (Protonix Ec Tab) 40 mg PO DAILY [facility] Last Admin: 03/03/18 10:19 Dose: 40 mg Potassium Phos/Sodium Phos (Neutra-Phos) 1 pkt PO BID [facility] Last Admin: 03/03/18 17:47 Dose: 1 pkt Prednisone (Prednisone Tab) 5 mg PO DAILY [facility] Last Admin: 03/03/18 10:21 Dose: 5 mg Rifampin (Rifampin) 600 mg PO DAILY [facility] PRN Reason: Protocol Rosuvastatin Calcium (Crestor) 5 mg PO HS [facility] Last Admin: 03/02/18 21:43 Dose: 5 mg Sodium Bicarbonate (Sodium Bicarbonate Tab) 650 mg PO TID [facility] Last Admin: 03/03/18 17:47 Dose: 650 mg Tacrolimus (Prograf Cap) 2 mg PO Q12 [facility] Last Admin: 03/03/18 10:18 Dose: 2 mg - Labs Labs: 03/03/18 07:15 03/03/18 07:15 PT 10.8 SECONDS (9.7-12.2) 02/28/18 11:22 INR 1.0 02/28/18 11:22 APTT 29 SECONDS (21-34) 02/28/18 11:22 - Constitutional Appears: Non-toxic, Chronically Ill - Head Exam Head Exam: NORMOCEPHALIC - Eye Exam Eye Exam: PERRL - ENT Exam ENT Exam: Mucous Membranes Dry - Neck Exam Neck Exam: absent: Lymphadenopathy - Respiratory Exam Respiratory Exam: Decreased Breath Sounds - Cardiovascular Exam Cardiovascular Exam: REGULAR RHYTHM - GI/Abdominal Exam GI & Abdominal Exam: Distended - Rectal Exam Rectal Exam: Deferred - Exam Exam: NORMAL INSPECTION Assessment and Plan (1) Bronchiectasis with acute exacerbation Status: Acute (2) COPD bronchitis Status: Acute (3) Cardiomyopathy Status: Acute (4) Chest pain Status: Acute (5) Chronic atrial fibrillation Status: Acute (6) Chronic kidney disease, stage III (moderate) Status: Acute (7) DM type 2 (diabetes mellitus, type 2) Status: Acute (8) Gout Status: Acute - Assessment and Plan (Free Text) Assessment: left knee effusion + AFB 2+ has hx TB 1975 ( treated) could also be nocardia await ID of organism will start INH RIF ETH but need to monitor tacrolimus levels
--- NOTE | 2018-03-03 20:15 | CP.PCM.PN ---
Subjective - Date & Time of Evaluation Date of Evaluation: 03/03/18 Time of Evaluation: 20:14 - Subjective Subjective: Patient still has left knee pain. CT scan of the left knee : still with large left knee effusion. Left knee aspirate is positive for AFB. Now on anti TB medications by Dr Nash. Objective - Vital Signs/Intake and Output Vital Signs (last 24 hours): Temp Pulse Resp BP Pulse Ox 99.4 F 96 H 18 143/79 99 03/03/18 15:00 03/03/18 15:00 03/03/18 15:00 03/03/18 15:00 03/03/18 15:00 - Medications Medications: Current Medications Acetaminophen (Tylenol 325mg Tab) 650 mg PO Q4 PRN PRN Reason: Fever >100.4 F Last Admin: 03/03/18 01:08 Dose: 650 mg Calcium/Vitamin D (Oyster Shell Calcium/Vitamin D 500 Mg-200 Iu) 1 tab PO DAILY [facility] Last Admin: 03/03/18 10:18 Dose: 1 tab Dextrose (Dextrose 50% Inj) 0 ml IV STAT PRN; Protocol PRN Reason: Hypoglycemia Protocol Dextrose (Glutose 15) 0 gm PO ONCE PRN; Protocol PRN Reason: Hypoglycemia Protocol Diltiazem HCl (Cardizem Cd) 240 mg PO DAILY [facility] Last Admin: 03/03/18 10:18 Dose: 240 mg Ergocalciferol (Drisdol 50,000 Intl Units Cap) 1 cap PO QWK [facility] Ethambutol HCl (Myambutol) 400 mg PO Q8H [facility] PRN Reason: Protocol Folic Acid (Folic Acid) 1 mg PO DAILY [facility] Last Admin: 03/03/18 10:19 Dose: 1 mg Glucagon (Glucagen Diagnostic Kit) 0 mg IM STAT PRN; Protocol PRN Reason: Hypoglycemia Protocol Heparin Sodium (Porcine) (Heparin) 5,000 units SC Q8 [facility] Last Admin: 03/03/18 13:29 Dose: 5,000 units Home Med (Patient's Own Medication) 1 tab PO DAILY [facility] Last Admin: 03/03/18 10:19 Dose: 1 tab Insulin Aspart (Novolog) 0 unit SC ACHS [facility] PRN Reason: Protocol Last Admin: 03/03/18 17:20 Dose: 2 units Isoniazid (Niazid) 300 mg PO DAILY [facility] PRN Reason: Protocol Levothyroxine Sodium (Synthroid) 175 mcg PO DAILY@0630 [facility] Last Admin: 03/03/18 06:20 Dose: 175 mcg Magnesium Oxide (Mag-Ox) 800 mg PO BID [facility] Last Admin: 03/03/18 17:48 Dose: 800 mg Montelukast Sodium (Singulair) 10 mg PO DAILY [facility] Last Admin: 03/03/18 10:18 Dose: 10 mg Oxycodone/Acetaminophen (Percocet 5/325 Mg Tab) 1 tab PO Q4H PRN PRN Reason: Pain, moderate (4-7) Stop: 03/06/18 11:05 Last Admin: 03/03/18 11:19 Dose: 1 tab Pantoprazole Sodium (Protonix Ec Tab) 40 mg PO DAILY [facility] Last Admin: 03/03/18 10:19 Dose: 40 mg Potassium Phos/Sodium Phos (Neutra-Phos) 1 pkt PO BID [facility] Last Admin: 03/03/18 17:47 Dose: 1 pkt Prednisone (Prednisone Tab) 5 mg PO DAILY [facility] Last Admin: 03/03/18 10:21 Dose: 5 mg Rifampin (Rifampin Cap) 600 mg PO DAILY [facility] PRN Reason: Protocol Rosuvastatin Calcium (Crestor) 5 mg PO HS [facility] Last Admin: 03/02/18 21:43 Dose: 5 mg Sodium Bicarbonate (Sodium Bicarbonate Tab) 650 mg PO TID [facility] Last Admin: 03/03/18 17:47 Dose: 650 mg Tacrolimus (Prograf Cap) 2 mg PO Q12 [facility] Last Admin: 03/03/18 10:18 Dose: 2 mg - Labs Labs: 03/03/18 07:15 03/03/18 07:15 PT 10.8 SECONDS (9.7-12.2) 02/28/18 11:22 INR 1.0 02/28/18 11:22 APTT 29 SECONDS (21-34) 02/28/18 11:22 - Constitutional Appears: No Acute Distress, Cachectic, Chronically Ill - Head Exam Head Exam: NORMAL INSPECTION, NORMOCEPHALIC - Eye Exam Eye Exam: Normal appearance Pupil Exam: NORMAL ACCOMODATION - ENT Exam ENT Exam: Normal Exam - Neck Exam Neck Exam: Normal Inspection - Respiratory Exam Respiratory Exam: Clear to Ausculation Bilateral, NORMAL BREATHING PATTERN - Cardiovascular Exam Cardiovascular Exam: REGULAR RHYTHM, Murmur - GI/Abdominal Exam GI & Abdominal Exam: Soft, Normal Bowel Sounds - Rectal Exam Rectal Exam: Deferred - Extremities Exam Additional comments: Tender left knee. - Back Exam Back Exam: NORMAL INSPECTION - Neurological Exam Neurological Exam: Alert, Awake, Oriented x3 - Psychiatric Exam Psychiatric exam: Anxious - Skin Skin Exam: Dry, Intact, Normal Color Assessment and Plan (1) Septic arthritis of knee, left Assessment & Plan: AFB positive left knee aspirate. Status: Acute (2) Severe sepsis Status: Acute (3) History of renal transplant Status: Chronic (4) Hypotension Status: Resolved
[2018-03-04] MEDS: Levothyroxine 175 MCG TAB PO SCH (06:14)
[2018-03-04 06:48] LABS: HEMOGLOBIN 9.4 g/dL (12.0-18.0); MEAN CELL VOLUME 77.1 fL (80.0-94.0); MEAN CORPUSCULAR HEMOGLOBIN 25.4 pg (27.0-31.0); MEAN CORPUSCULAR HGB CONC 32.9 g/dL (33.0-37.0); MEAN PLATELET VOLUME 7.3 fL (7.2-11.7); RBC 3.71 Mil/uL (4.40-5.90); RED CELL DISTRIBUTION WIDTH 18.7 % (11.5-14.5); WHITE BLOOD COUNT 10.6 K/uL (4.8-10.8)
[2018-03-04] MEDS: (Novolog) Insulin Aspart, Recombinant 100 u/ml 10 ml vial SC SCH ×4 (07:16→21:27)
[2018-03-04 07:19] LABS: ALB/GLOB RATIO 0.9 (1.0-2.1); ALBUMIN 2.9 g/dL (3.5-5.0); ALT/SGPT 15 U/L (21-72); AST/SGOT 20 U/L (17-59); BLOOD UREA NITROGEN 14 mg/dL (9-20); CALCIUM 8.5 mg/dl (8.6-10.4); GFR NON-AFRICAN AMERICAN > 60
--- NOTE | 2018-03-04 08:14 | CP.PCM.PN ---
Subjective - Date & Time of Evaluation Date of Evaluation: 03/04/18 Time of Evaluation: 08:11 - Subjective Subjective: pt seen and examined very confused- says to call police as people are going to debo him knee cultures- + AFB started on rifampin, INH and ethambutol by ID ROS- unable to obtain as pt confused Objective - Vital Signs/Intake and Output Vital Signs (last 24 hours): Temp Pulse Resp BP Pulse Ox 98.1 F 83 20 123/75 98 03/04/18 07:00 03/04/18 07:00 03/04/18 07:00 03/04/18 07:00 03/04/18 07:00 Intake and Output: 03/04/18 03/04/18 06:59 18:59 Intake Total 880 Balance 880 - Medications Medications: Current Medications Acetaminophen (Tylenol 325mg Tab) 650 mg PO Q4 PRN PRN Reason: Fever >100.4 F Last Admin: 03/03/18 01:08 Dose: 650 mg Calcium/Vitamin D (Oyster Shell Calcium/Vitamin D 500 Mg-200 Iu) 1 tab PO DAILY [facility] Last Admin: 03/03/18 10:18 Dose: 1 tab Dextrose (Dextrose 50% Inj) 0 ml IV STAT PRN; Protocol PRN Reason: Hypoglycemia Protocol Dextrose (Glutose 15) 0 gm PO ONCE PRN; Protocol PRN Reason: Hypoglycemia Protocol Diltiazem HCl (Cardizem Cd) 240 mg PO DAILY [facility] Last Admin: 03/03/18 10:18 Dose: 240 mg Ergocalciferol (Drisdol 50,000 Intl Units Cap) 1 cap PO QWK [facility] Ethambutol HCl (Myambutol) 400 mg PO Q8H [facility] PRN Reason: Protocol Last Admin: 03/04/18 02:57 Dose: 400 mg Folic Acid (Folic Acid) 1 mg PO DAILY [facility] Last Admin: 03/03/18 10:19 Dose: 1 mg Glucagon (Glucagen Diagnostic Kit) 0 mg IM STAT PRN; Protocol PRN Reason: Hypoglycemia Protocol Heparin Sodium (Porcine) (Heparin) 5,000 units SC Q8 [facility] Last Admin: 03/04/18 06:14 Dose: 5,000 units Home Med (Patient's Own Medication) 1 tab PO DAILY [facility] Last Admin: 03/03/18 10:19 Dose: 1 tab Insulin Aspart (Novolog) 0 unit SC ACHS [facility] PRN Reason: Protocol Last Admin: 03/04/18 07:16 Dose: Not Given Isoniazid (Niazid) 300 mg PO DAILY [facility] PRN Reason: Protocol Levothyroxine Sodium (Synthroid) 175 mcg PO DAILY@0630 [facility] Last Admin: 03/04/18 06:14 Dose: 175 mcg Magnesium Oxide (Mag-Ox) 800 mg PO BID [facility] Last Admin: 03/03/18 17:48 Dose: 800 mg Montelukast Sodium (Singulair) 10 mg PO DAILY [facility] Last Admin: 03/03/18 10:18 Dose: 10 mg Oxycodone/Acetaminophen (Percocet 5/325 Mg Tab) 1 tab PO Q4H PRN PRN Reason: Pain, moderate (4-7) Stop: 03/06/18 11:05 Last Admin: 03/03/18 11:19 Dose: 1 tab Pantoprazole Sodium (Protonix Ec Tab) 40 mg PO DAILY [facility] Last Admin: 03/03/18 10:19 Dose: 40 mg Potassium Phos/Sodium Phos (Neutra-Phos) 1 pkt PO BID [facility] Last Admin: 03/03/18 17:47 Dose: 1 pkt Prednisone (Prednisone Tab) 5 mg PO DAILY [facility] Last Admin: 03/03/18 10:21 Dose: 5 mg Rifampin (Rifampin Cap) 600 mg PO DAILY [facility] PRN Reason: Protocol Rosuvastatin Calcium (Crestor) 5 mg PO HS [facility] Last Admin: 03/03/18 21:31 Dose: 5 mg Sodium Bicarbonate (Sodium Bicarbonate Tab) 650 mg PO TID [facility] Last Admin: 03/03/18 17:47 Dose: 650 mg Tacrolimus (Prograf Cap) 2 mg PO Q12 [facility] Last Admin: 03/03/18 21:31 Dose: 2 mg - Labs Labs: 03/04/18 06:45 03/04/18 06:45 PT 10.8 SECONDS (9.7-12.2) 02/28/18 11:22 INR 1.0 02/28/18 11:22 APTT 29 SECONDS (21-34) 02/28/18 11:22 - Constitutional Appears: Confused, Chronically Ill - Head Exam Head Exam: ATRAUMATIC, NORMOCEPHALIC - Eye Exam Eye Exam: EOMI, PERRL - ENT Exam ENT Exam: Mucous Membranes Moist - Respiratory Exam Respiratory Exam: Wheezes, NORMAL BREATHING PATTERN - Cardiovascular Exam Cardiovascular Exam: REGULAR RHYTHM, +S1, +S2 - GI/Abdominal Exam GI & Abdominal Exam: Soft. absent: Distended, Tenderness - Extremities Exam Extremities Exam: absent: Pedal Edema Additional comments: left leg in immobilizer - Neurological Exam Neurological Exam: Awake. absent: Alert, Oriented x3 - Skin Skin Exam: Dry, Warm Assessment and Plan (1) Altered mental status Status: Acute (2) CKD (chronic kidney disease) stage 3, GFR 30-59 ml/min Status: Acute (3) Kidney transplant recipient Status: Acute (4) Septic arthritis of knee, left Status: Acute (5) Bronchiectasis with acute exacerbation Status: Acute (6) Cardiomyopathy Status: Acute (7) Chronic atrial fibrillation Status: Acute (8) DM type 2 (diabetes mellitus, type 2) Status: Acute - Assessment and Plan (Free Text) Plan: stable renal allograft function concern for drug interaction- rifampin will lower prograf level will leave pt on diltiazem check prograf level in am might need dose increase AMS- ? related to narcotics is off clonazepam consider neuro eval
[2018-03-04] MEDS: Potassium & Sodium Phosphate PO SCH ×2 (10:52→17:35)
[2018-03-04] MEDS: Magnesium Oxide 400 mg Tab UD PO SCH ×2 (10:52→17:35)
[2018-03-04] MEDS: Calcium-Vit D 500 mg-200 Units Tab UD PO SCH (10:53)
[2018-03-04] MEDS: Pantoprazole 40 mg EC Tab PO SCH (10:53)
[2018-03-04] MEDS: Febuxostat [Uloric] 80 MG PO SCH (10:54)
[2018-03-04] MEDS: diltiaZEM 240 mg/24 Hours CD Cap PO SCH (10:54)
[2018-03-04] MEDS: Oxycodone/Acetaminophen 5/325 mg Tab PO PRN ×2 (12:17→16:01)
--- NOTE | 2018-03-04 12:52 | CT ---
Date of service: 03/03/2018 PROCEDURE: LEFT KNEE CT WITHOUT CONTRAST HISTORY: LEFT KNEE SEPTIC ARTHRITIS COMPARISON: Left knee CT without contrast 02/23/2018. TECHNIQUE: A volumetric CT acquisition was performed through the left knee without intravenous contrast via serial axial sections. Contrast Dose: None Radiation dose:Total exam DLP = 402.18 mGy-cm. This CT exam was performed using one or more of the following dose reduction techniques: Automated exposure control, adjustment of the mA and/or kV according to patient size, and/or use of iterative reconstruction technique. FINDINGS: No definitive fracture appreciable, subluxation or dislocation. No destructive bony lesion identified. Stable moderate osteoarthritis as identified primarily at the patellofemoral and medial femorotibial compartments once again with stable appearance. Lateral femoral compartment remains least affected. No erosive or periosteal changes are identified to suggest overt CT sign of septic arthrosis. MRI is far more sensitive however the patient has a pacemaker/AICD inserted and MRI is not possible. Trace gas is now identified minimally in the suprapatellar bursa potentially from recent instrumentation though infectious bursitis is not excluded. Large multilocular joint effusion with synovial debris and hypertrophy reiterated. Extensive vascular calcifications are identified including involving the popliteal artery and visualized proximal lower extremity runoff. Moderate posterior Landaverde's cyst again identified. IMPRESSION: Minimal pneumo arthrosis is now identified at the suprasellar bursa potentially from recent instrumentation. Clinically correlate. Infection bursitis not excluded. No overt CT sign of osteomyelitis. Extensive multilocular joint effusion as well as moderate posterior Landaverde's cyst reiterated. MRI is not possible in this patient to further evaluate osteomyelitis potentially, with greater sensitivity, and consideration of three-phase nuclear bone scan or Ceretec scan should be considered.
--- NOTE | 2018-03-04 14:35 | CP.PCM.PN ---
Subjective - Date & Time of Evaluation Date of Evaluation: 03/04/18 Time of Evaluation: 14:32 - Subjective Subjective: Patient confused. Afebrile, in no respiratory distress. Still complaining of left knee roca. On Cubicin and anti-TB meds. Also on Heparin 5000iu q [address] get a CT scan of the head without contrast. Objective - Vital Signs/Intake and Output Vital Signs (last 24 hours): Temp Pulse Resp BP Pulse Ox 99.4 F 98 H 20 154/75 H 98 03/04/18 11:50 03/04/18 10:47 03/04/18 07:00 03/04/18 10:47 03/04/18 07:00 Intake and Output: 03/04/18 03/04/18 06:59 18:59 Intake Total 880 Balance 880 - Medications Medications: Current Medications Acetaminophen (Tylenol 325mg Tab) 650 mg PO Q4 PRN PRN Reason: Fever >100.4 F Last Admin: 03/04/18 10:51 Dose: 650 mg Calcium/Vitamin D (Oyster Shell Calcium/Vitamin D 500 Mg-200 Iu) 1 tab PO DAILY [facility] Last Admin: 03/04/18 10:53 Dose: 1 tab Dextrose (Dextrose 50% Inj) 0 ml IV STAT PRN; Protocol PRN Reason: Hypoglycemia Protocol Dextrose (Glutose 15) 0 gm PO ONCE PRN; Protocol PRN Reason: Hypoglycemia Protocol Diltiazem HCl (Cardizem Cd) 240 mg PO DAILY [facility] Last Admin: 03/04/18 10:54 Dose: 240 mg Ergocalciferol (Drisdol 50,000 Intl Units Cap) 1 cap PO QWK [facility] Ethambutol HCl (Myambutol) 400 mg PO Q8H [facility] PRN Reason: Protocol Last Admin: 03/04/18 12:15 Dose: 400 mg Folic Acid (Folic Acid) 1 mg PO DAILY [facility] Last Admin: 03/04/18 10:53 Dose: 1 mg Glucagon (Glucagen Diagnostic Kit) 0 mg IM STAT PRN; Protocol PRN Reason: Hypoglycemia Protocol Heparin Sodium (Porcine) (Heparin) 5,000 units SC Q8 [facility] Last Admin: 03/04/18 13:22 Dose: 5,000 units Home Med (Patient's Own Medication) 1 tab PO DAILY [facility] Last Admin: 03/04/18 10:54 Dose: 1 tab Insulin Aspart (Novolog) 0 unit SC ACHS [facility] PRN Reason: Protocol Last Admin: 03/04/18 11:55 Dose: Not Given Isoniazid (Niazid) 300 mg PO DAILY [facility] PRN Reason: Protocol Last Admin: 03/04/18 10:53 Dose: 300 mg Levothyroxine Sodium (Synthroid) 175 mcg PO DAILY@0630 [facility] Last Admin: 03/04/18 06:14 Dose: 175 mcg Magnesium Oxide (Mag-Ox) 800 mg PO BID [facility] Last Admin: 03/04/18 10:52 Dose: 800 mg Montelukast Sodium (Singulair) 10 mg PO DAILY [facility] Last Admin: 03/04/18 10:53 Dose: 10 mg Oxycodone/Acetaminophen (Percocet 5/325 Mg Tab) 1 tab PO Q4H PRN PRN Reason: Pain, moderate (4-7) Stop: 03/06/18 11:05 Last Admin: 03/04/18 12:17 Dose: 1 tab Pantoprazole Sodium (Protonix Ec Tab) 40 mg PO DAILY [facility] Last Admin: 03/04/18 10:53 Dose: 40 mg Potassium Phos/Sodium Phos (Neutra-Phos) 1 pkt PO BID [facility] Last Admin: 03/04/18 10:52 Dose: 1 pkt Prednisone (Prednisone Tab) 5 mg PO DAILY [facility] Last Admin: 03/04/18 10:53 Dose: 5 mg Rifampin (Rifampin Cap) 600 mg PO DAILY [facility] PRN Reason: Protocol Last Admin: 03/04/18 10:52 Dose: 600 mg Rosuvastatin Calcium (Crestor) 5 mg PO HS [facility] Last Admin: 03/03/18 21:31 Dose: 5 mg Sodium Bicarbonate (Sodium Bicarbonate Tab) 650 mg PO TID [facility] Last Admin: 03/04/18 13:22 Dose: 650 mg Tacrolimus (Prograf Cap) 2 mg PO Q12 [facility] Last Admin: 03/04/18 10:52 Dose: 2 mg - Labs Labs: 03/04/18 06:45 03/04/18 06:45 PT 10.8 SECONDS (9.7-12.2) 02/28/18 11:22 INR 1.0 02/28/18 11:22 APTT 29 SECONDS (21-34) 02/28/18 11:22 - Constitutional Appears: No Acute Distress, Chronically Ill - Head Exam Head Exam: NORMAL INSPECTION - Eye Exam Eye Exam: Normal appearance Pupil Exam: NORMAL ACCOMODATION - ENT Exam ENT Exam: Normal Exam - Neck Exam Neck Exam: Normal Inspection - Respiratory Exam Respiratory Exam: Rhonchi Additional comments: Few rhonchi bilaterally. - GI/Abdominal Exam GI & Abdominal Exam: Soft, Normal Bowel Sounds - Rectal Exam Rectal Exam: Deferred - Exam Exam: NORMAL INSPECTION - Extremities Exam Extremities Exam: Full ROM, Normal Inspection, Tenderness Additional comments: Tender left knee. - Back Exam Back Exam: NORMAL INSPECTION - Neurological Exam Neurological Exam: Alert, Awake Additional comments: Slightly confused. - Psychiatric Exam Psychiatric exam: Anxious - Skin Skin Exam: Normal Color, Warm Assessment and Plan (1) Septic arthritis of knee, left Assessment & Plan: On Cubicin and Anti-TB meds. Status: Acute (2) Severe sepsis Status: Acute (3) History of renal transplant Status: Chronic (4) Hypotension Status: Resolved
[2018-03-04] MEDS: Albuterol-Ipratrop 3 mg / 0.5 (3 ml) UD INH SCH (20:03)
--- NOTE | 2018-03-04 21:55 | CARD ---
APPROVED REPORT Date of service: 02/23/2018 EKG Measurement Heart [id number] [place] [id number] [id number] <Conclusion> Sinus rhythm with occasional atrial-paced complexes and premature atrial complexes Left axis deviation ST & T wave abnormality, consider lateral ischemia Prolonged QT Abnormal ECG
--- NOTE | 2018-03-04 21:59 | CARD ---
APPROVED REPORT Date of service: 02/23/2018 EKG Measurement Heart [id number] <Conclusion> Atrial-paced rhythm Left anterior fascicular block Left ventricular hypertrophy with QRS widening and repolarization abnormality Prolonged QT Abnormal ECG
[2018-03-05] MEDS: Oxycodone/Acetaminophen 5/325 mg Tab PO PRN ×3 (00:25→19:12)
[2018-03-05] MEDS: Levothyroxine 175 MCG TAB PO SCH (05:34)
[2018-03-05] MEDS: (Novolog) Insulin Aspart, Recombinant 100 u/ml 10 ml vial SC SCH ×4 (07:57→21:23)
[2018-03-05 08:12] LABS: ALB/GLOB RATIO 0.9 (1.0-2.1); ALBUMIN 2.6 g/dL (3.5-5.0); ALT/SGPT 21 U/L (21-72); AST/SGOT 22 U/L (17-59); BLOOD UREA NITROGEN 14 mg/dL (9-20); CALCIUM 8.4 mg/dl (8.6-10.4); GFR NON-AFRICAN AMERICAN > 60
[2018-03-05] MEDS: Albuterol-Ipratrop 3 mg / 0.5 (3 ml) UD INH SCH ×3 (08:20→20:21)
[2018-03-05] MEDS: Magnesium Oxide 400 mg Tab UD PO SCH ×2 (09:36→17:25)
[2018-03-05] MEDS: diltiaZEM 240 mg/24 Hours CD Cap PO SCH (09:36)
[2018-03-05] MEDS: Potassium & Sodium Phosphate PO SCH ×2 (09:37→17:25)
[2018-03-05] MEDS: Calcium-Vit D 500 mg-200 Units Tab UD PO SCH (09:37)
[2018-03-05] MEDS: Febuxostat [Uloric] 80 MG PO SCH (09:37)
[2018-03-05] MEDS: Pantoprazole 40 mg EC Tab PO SCH (09:38)
--- NOTE | 2018-03-05 10:05 | CT ---
Date of service: 03/05/2018 PROCEDURE: CT HEAD WITHOUT CONTRAST. HISTORY: Acute confusion COMPARISON: None available. TECHNIQUE: Axial computed tomography images were obtained through the head/brain without intravenous contrast. Radiation dose: Total exam DLP = 771.25 mGy-cm. This CT exam was performed using one or more of the following dose reduction techniques: Automated exposure control, adjustment of the mA and/or kV according to patient size, and/or use of iterative reconstruction technique. FINDINGS: HEMORRHAGE: No intracranial hemorrhage. BRAIN: Good corticomedullary differentiation is seen. Proportional, diffuse expansion of the ventriculosulcal and cisternal spaces is appreciated with white matter lucency compatible with diffuse cerebral atrophy and chronic microangiopathy. No suspicious extra-axial fluid collection is identified and the midline brain anatomy appears grossly nonfocal as imaged. There is no mass effect throughout. A small chronic lacune is suggested at the left basal ganglia. There is a small extra-axial fluid collection measuring 1.3 x 2.7 cm in the left frontal region suggestive of probable small arachnoid cyst or possible focal atrophy. VENTRICLES: Unremarkable. No hydrocephalus. CALVARIUM: Unremarkable. PARANASAL SINUSES: Unremarkable as visualized. No significant inflammatory changes. MASTOID AIR CELLS: Unremarkable as visualized. No inflammatory changes. OTHER FINDINGS: None. IMPRESSION: Age-appropriate age related neuro degenerative findings throughout the cerebrum. A small left frontal arachnoid cyst is questioned versus possible focal atrophy. Follow-up CT or MRI are available if there is clinical concern for brain infarction acutely subacutely, or is otherwise may be indicated.
[2018-03-06] MEDS: Albuterol-Ipratrop 3 mg / 0.5 (3 ml) UD INH SCH ×4 (01:21→19:59)
[2018-03-06] MEDS: Oxycodone/Acetaminophen 5/325 mg Tab PO PRN ×2 (02:42→16:50)
[2018-03-06] MEDS: Levothyroxine 175 MCG TAB PO SCH (05:49)
[2018-03-06] MEDS: (Novolog) Insulin Aspart, Recombinant 100 u/ml 10 ml vial SC SCH ×4 (07:28→21:43)
[2018-03-06 07:38] LABS: ALB/GLOB RATIO 0.8 (1.0-2.1); ALBUMIN 2.6 g/dL (3.5-5.0); ALT/SGPT 17 U/L (21-72); AST/SGOT 18 U/L (17-59); BLOOD UREA NITROGEN 14 mg/dL (9-20); CALCIUM 8.4 mg/dl (8.6-10.4); GFR NON-AFRICAN AMERICAN > 60
[2018-03-06] MEDS: Magnesium Oxide 400 mg Tab UD PO SCH ×2 (10:05→18:41)
[2018-03-06] MEDS: Potassium & Sodium Phosphate PO SCH ×2 (10:05→18:42)
[2018-03-06] MEDS: Febuxostat [Uloric] 80 MG PO SCH (10:05)
[2018-03-06] MEDS: Calcium-Vit D 500 mg-200 Units Tab UD PO SCH (10:05)
[2018-03-06] MEDS: diltiaZEM 240 mg/24 Hours CD Cap PO SCH (10:05)
[2018-03-06] MEDS: Pantoprazole 40 mg EC Tab PO SCH (10:05)
[2018-03-06 11:37] LABS: BASO # 0.1 K/uL (0.0-0.2); BASO % 0.8 % (0.0-2.0); EOS # 0.2 K/uL (0.0-0.7); EOS % 2.2 % (0.0-4.0); HEMOGLOBIN 9.6 g/dL (12.0-18.0); LYMPH # 0.6 K/uL (1.0-4.3); LYMPH % 7.6 % (20.0-40.0); MEAN CELL VOLUME 78.7 fL (80.0-94.0); MEAN CORPUSCULAR HEMOGLOBIN 25.4 pg (27.0-31.0); MEAN CORPUSCULAR HGB CONC 32.3 g/dL (33.0-37.0); MEAN PLATELET VOLUME 7.5 fL (7.2-11.7); MONO # 0.6 K/uL (0.0-0.8); MONO % 7.8 % (0.0-10.0); NEUT # 6.5 K/uL (1.8-7.0); NEUT % 81.6 % (50.0-75.0); PLATELET COUNT 312 K/uL (130-400); RBC 3.78 Mil/uL (4.40-5.90); RED CELL DISTRIBUTION WIDTH 19.2 % (11.5-14.5)
--- NOTE | 2018-03-06 12:03 | CP.PCM.PN ---
Subjective - Date & Time of Evaluation Date of Evaluation: 03/06/18 Time of Evaluation: 12:00 - Subjective Subjective: More alert this AM; advised to use pain meds cautiously renal function remains stable on anti TB meds as afb smears positive on knee fluid- cultures pending tacro levels sl elevated- but might decrease with ethambutal use HTN stable, afebrile now; left knee still painful Objective - Vital Signs/Intake and Output Vital Signs (last 24 hours): Temp Pulse Resp BP Pulse Ox 98.3 F 93 H 18 111/51 L 100 03/06/18 07:00 03/06/18 07:00 03/06/18 07:00 03/06/18 07:00 03/06/18 07:00 Intake and Output: 03/06/18 03/06/18 06:59 18:59 Intake Total 200 Output Total 1000 Balance -800 - Medications Medications: Current Medications Albuterol/Ipratropium (Duoneb 3 Mg/0.5 Mg (3 Ml) Ud) 3 ml INH RQ6 [facility] Last Admin: 03/06/18 01:21 Dose: Not Given Apixaban (Eliquis) 2.5 mg PO BID [facility] Last Admin: 03/06/18 10:05 Dose: 2.5 mg Calcium/Vitamin D (Oyster Shell Calcium/Vitamin D 500 Mg-200 Iu) 1 tab PO DAILY [facility] Last Admin: 03/06/18 10:05 Dose: 1 tab Dextrose (Dextrose 50% Inj) 0 ml IV STAT PRN; Protocol PRN Reason: Hypoglycemia Protocol Dextrose (Glutose 15) 0 gm PO ONCE PRN; Protocol PRN Reason: Hypoglycemia Protocol Diltiazem HCl (Cardizem Cd) 240 mg PO DAILY [facility] Last Admin: 03/06/18 10:05 Dose: 240 mg Ergocalciferol (Drisdol 50,000 Intl Units Cap) 1 cap PO QWK [facility] Ethambutol HCl (Myambutol) 400 mg PO Q8H [facility] PRN Reason: Protocol Last Admin: 03/06/18 02:38 Dose: 400 mg Folic Acid (Folic Acid) 1 mg PO DAILY [facility] Last Admin: 03/06/18 10:05 Dose: 1 mg Glucagon (Glucagen Diagnostic Kit) 0 mg IM STAT PRN; Protocol PRN Reason: Hypoglycemia Protocol Home Med (Patient's Own Medication) 1 tab PO DAILY [facility] Last Admin: 03/06/18 10:05 Dose: 1 tab Insulin Aspart (Novolog) 0 unit SC ACHS [facility] PRN Reason: Protocol Last Admin: 03/06/18 07:28 Dose: Not Given Isoniazid (Niazid) 300 mg PO DAILY [facility] PRN Reason: Protocol Last Admin: 03/06/18 10:05 Dose: 300 mg Levothyroxine Sodium (Synthroid) 175 mcg PO DAILY@0630 [facility] Last Admin: 03/06/18 05:49 Dose: 175 mcg Magnesium Oxide (Mag-Ox) 800 mg PO BID [facility] Last Admin: 03/06/18 10:05 Dose: 800 mg Montelukast Sodium (Singulair) 10 mg PO DAILY [facility] Last Admin: 03/06/18 10:05 Dose: 10 mg Pantoprazole Sodium (Protonix Ec Tab) 40 mg PO DAILY [facility] Last Admin: 03/06/18 10:05 Dose: 40 mg Potassium Phos/Sodium Phos (Neutra-Phos) 1 pkt PO BID [facility] Last Admin: 03/06/18 10:05 Dose: 1 pkt Prednisone (Prednisone Tab) 5 mg PO DAILY [facility] Last Admin: 03/06/18 10:05 Dose: 5 mg Rifampin (Rifampin Cap) 600 mg PO DAILY [facility] PRN Reason: Protocol Last Admin: 03/06/18 10:05 Dose: 600 mg Rosuvastatin Calcium (Crestor) 5 mg PO HS [facility] Last Admin: 03/05/18 21:25 Dose: 5 mg Sodium Bicarbonate (Sodium Bicarbonate Tab) 650 mg PO TID [facility] Last Admin: 03/06/18 10:05 Dose: 650 mg Tacrolimus (Prograf Cap) 2 mg PO Q12 [facility] Last Admin: 03/06/18 10:05 Dose: 2 mg - Labs Labs: 03/06/18 11:40 03/06/18 07:11 PT 10.8 SECONDS (9.7-12.2) 02/28/18 11:22 INR 1.0 02/28/18 11:22 APTT 29 SECONDS (21-34) 02/28/18 11:22 - Constitutional Appears: No Acute Distress, Chronically Ill - Head Exam Head Exam: ATRAUMATIC, NORMAL INSPECTION - Eye Exam Eye Exam: EOMI, Normal appearance - Neck Exam Neck Exam: Normal Inspection. absent: Tenderness - Respiratory Exam Respiratory Exam: Clear to Ausculation Bilateral, NORMAL BREATHING PATTERN - Cardiovascular Exam Cardiovascular Exam: REGULAR RHYTHM, +S1 - GI/Abdominal Exam GI & Abdominal Exam: Soft. absent: Tenderness - Extremities Exam Extremities Exam: Tenderness. absent: Full ROM - Neurological Exam Neurological Exam: Awake, CN II-XII Intact - Skin Skin Exam: Dry, Warm Assessment and Plan (1) Kidney transplant recipient Status: Acute (2) CKD (chronic kidney disease) stage 3, GFR 30-59 ml/min Status: Acute (3) Acute gout of left knee Status: Acute (4) Septic arthritis of knee, left Status: Acute (5) Cardiomyopathy Status: Acute (6) Atrial fibrillation Status: Chronic - Assessment and Plan (Free Text) Plan: Antimicrobials as per ID Repeat chemistries, tacro levels Monitor mental status- cautious use percocets
[2018-03-06 12:19] LABS: ANISOCYTOSIS MODERATE; BANDS 10 % (0-2); EOSINOPHIL 3 % (0-4); HYPOCHROMIC SLIGHT; LYMPHOCYTE 3 % (20-40); MONOCYTE 4 % (0-10); NEUTROPHIL 80 % (50-75); PLATELET ESTIMATE NORMAL (NORMAL); TOTAL CELLS COUNTED 100
[2018-03-06 12:20] LABS: OVALOCYTES SLIGHT; POIKILOCYTOSIS SLIGHT
--- NOTE | 2018-03-06 14:50 | CP.PCM.PN ---
Subjective - Date & Time of Evaluation Date of Evaluation: 03/06/18 Time of Evaluation: 14:48 - Subjective Subjective: Patient with at bedside. Spoke to son on phone at request of patient and . Patient states he is still having pain in his left knee. NO new complaints. Objective - Vital Signs/Intake and Output Vital Signs (last 24 hours): Temp Pulse Resp BP Pulse Ox 98.3 F 93 H 18 111/51 L 100 03/06/18 07:00 03/06/18 07:00 03/06/18 07:00 03/06/18 07:00 03/06/18 07:00 Intake and Output: 03/06/18 03/06/18 06:59 18:59 Intake Total 200 800 Output Total 1000 Balance -800 800 - Medications Medications: Current Medications Albuterol/Ipratropium (Duoneb 3 Mg/0.5 Mg (3 Ml) Ud) 3 ml INH RQ6 [facility] Last Admin: 03/06/18 01:21 Dose: Not Given Apixaban (Eliquis) 2.5 mg PO BID [facility] Last Admin: 03/06/18 10:05 Dose: 2.5 mg Calcium/Vitamin D (Oyster Shell Calcium/Vitamin D 500 Mg-200 Iu) 1 tab PO DAILY [facility] Last Admin: 03/06/18 10:05 Dose: 1 tab Dextrose (Dextrose 50% Inj) 0 ml IV STAT PRN; Protocol PRN Reason: Hypoglycemia Protocol Dextrose (Glutose 15) 0 gm PO ONCE PRN; Protocol PRN Reason: Hypoglycemia Protocol Diltiazem HCl (Cardizem Cd) 240 mg PO DAILY [facility] Last Admin: 03/06/18 10:05 Dose: 240 mg Ergocalciferol (Drisdol 50,000 Intl Units Cap) 1 cap PO QWK [facility] Ethambutol HCl (Myambutol) 400 mg PO Q8H [facility] PRN Reason: Protocol Last Admin: 03/06/18 12:15 Dose: 400 mg Folic Acid (Folic Acid) 1 mg PO DAILY [facility] Last Admin: 03/06/18 10:05 Dose: 1 mg Glucagon (Glucagen Diagnostic Kit) 0 mg IM STAT PRN; Protocol PRN Reason: Hypoglycemia Protocol Home Med (Patient's Own Medication) 1 tab PO DAILY [facility] Last Admin: 03/06/18 10:05 Dose: 1 tab Daptomycin 310 mg/ Sodium (Chloride) 100 mls @ 100 mls/hr IV Q24H [facility] PRN Reason: Protocol Stop: 03/11/18 16:01 Insulin Aspart (Novolog) 0 unit SC ACHS [facility] PRN Reason: Protocol Last Admin: 03/06/18 12:13 Dose: Not Given Isoniazid (Niazid) 300 mg PO DAILY [facility] PRN Reason: Protocol Last Admin: 03/06/18 10:05 Dose: 300 mg Levothyroxine Sodium (Synthroid) 175 mcg PO DAILY@0630 [facility] Last Admin: 03/06/18 05:49 Dose: 175 mcg Magnesium Oxide (Mag-Ox) 800 mg PO BID [facility] Last Admin: 03/06/18 10:05 Dose: 800 mg Montelukast Sodium (Singulair) 10 mg PO DAILY [facility] Last Admin: 03/06/18 10:05 Dose: 10 mg Pantoprazole Sodium (Protonix Ec Tab) 40 mg PO DAILY [facility] Last Admin: 03/06/18 10:05 Dose: 40 mg Potassium Phos/Sodium Phos (Neutra-Phos) 1 pkt PO BID [facility] Last Admin: 03/06/18 10:05 Dose: 1 pkt Prednisone (Prednisone Tab) 5 mg PO DAILY [facility] Last Admin: 03/06/18 10:05 Dose: 5 mg Rifampin (Rifampin Cap) 600 mg PO DAILY [facility] PRN Reason: Protocol Last Admin: 03/06/18 10:05 Dose: 600 mg Rosuvastatin Calcium (Crestor) 5 mg PO HS [facility] Last Admin: 03/05/18 21:25 Dose: 5 mg Sodium Bicarbonate (Sodium Bicarbonate Tab) 650 mg PO TID [facility] Last Admin: 03/06/18 13:32 Dose: 650 mg Tacrolimus (Prograf Cap) 2 mg PO Q12 [facility] Last Admin: 03/06/18 10:05 Dose: 2 mg - Labs Labs: 03/06/18 11:40 03/06/18 07:11 PT 10.8 SECONDS (9.7-12.2) 02/28/18 11:22 INR 1.0 02/28/18 11:22 APTT 29 SECONDS (21-34) 02/28/18 11:22 - Extremities Exam Additional comments: left knee: decrease in effusion and some wrinkling over weekend. cloth printing back tender, not warm. Patient with active flexion to 90 with mild pain only (up from 30 degrees 3 days ago) calves soft NT neg homans, sensation intact +DP pulse Assessment and Plan (1) Tuberculosis of left knee joint Assessment & Plan: +afb on smear awaiting mycobacterial cultures Dr. Nash aware improving clinically PT/OT d/c immobilizer will monitor, no intervention indicated at this time d/w Dr. Tovar, agrees with above Status: Acute (2) Septic arthritis of knee, left Assessment & Plan: +AFB aerobic cx neg Status: Acute (3) Acute gout of left knee Status: Acute
--- NOTE | 2018-03-06 16:53 | CP.PCM.PN ---
Subjective - Date & Time of Evaluation Date of Evaluation: 03/06/18 Time of Evaluation: 04:50 - Subjective Subjective: dictated Objective - Vital Signs/Intake and Output Vital Signs (last 24 hours): Temp Pulse Resp BP Pulse Ox 98.7 F 91 H 20 148/76 100 03/06/18 15:52 03/06/18 15:52 03/06/18 15:52 03/06/18 15:52 03/06/18 15:52 Intake and Output: 03/06/18 03/06/18 06:59 18:59 Intake Total 200 800 Output Total 1000 Balance -800 800 - Medications Medications: Current Medications Albuterol/Ipratropium (Duoneb 3 Mg/0.5 Mg (3 Ml) Ud) 3 ml INH RQ6 [facility] Last Admin: 03/06/18 01:21 Dose: Not Given Apixaban (Eliquis) 2.5 mg PO BID [facility] Last Admin: 03/06/18 10:05 Dose: 2.5 mg Calcium/Vitamin D (Oyster Shell Calcium/Vitamin D 500 Mg-200 Iu) 1 tab PO DAILY [facility] Last Admin: 03/06/18 10:05 Dose: 1 tab Dextrose (Dextrose 50% Inj) 0 ml IV STAT PRN; Protocol PRN Reason: Hypoglycemia Protocol Dextrose (Glutose 15) 0 gm PO ONCE PRN; Protocol PRN Reason: Hypoglycemia Protocol Diltiazem HCl (Cardizem Cd) 240 mg PO DAILY [facility] Last Admin: 03/06/18 10:05 Dose: 240 mg Ergocalciferol (Drisdol 50,000 Intl Units Cap) 1 cap PO QWK [facility] Ethambutol HCl (Myambutol) 400 mg PO Q8H [facility] PRN Reason: Protocol Last Admin: 03/06/18 12:15 Dose: 400 mg Folic Acid (Folic Acid) 1 mg PO DAILY [facility] Last Admin: 03/06/18 10:05 Dose: 1 mg Glucagon (Glucagen Diagnostic Kit) 0 mg IM STAT PRN; Protocol PRN Reason: Hypoglycemia Protocol Home Med (Patient's Own Medication) 1 tab PO DAILY [facility] Last Admin: 03/06/18 10:05 Dose: 1 tab Daptomycin 310 mg/ Sodium (Chloride) 100 mls @ 100 mls/hr IV Q24H [facility] PRN Reason: Protocol Stop: 03/11/18 16:01 Last Admin: 03/06/18 16:52 Dose: 100 mls/hr Insulin Aspart (Novolog) 0 unit SC ACHS [facility] PRN Reason: Protocol Last Admin: 03/06/18 12:13 Dose: Not Given Isoniazid (Niazid) 300 mg PO DAILY [facility] PRN Reason: Protocol Last Admin: 03/06/18 10:05 Dose: 300 mg Levothyroxine Sodium (Synthroid) 175 mcg PO DAILY@0630 [facility] Last Admin: 03/06/18 05:49 Dose: 175 mcg Magnesium Oxide (Mag-Ox) 800 mg PO BID [facility] Last Admin: 03/06/18 10:05 Dose: 800 mg Montelukast Sodium (Singulair) 10 mg PO DAILY [facility] Last Admin: 03/06/18 10:05 Dose: 10 mg Oxycodone/Acetaminophen (Percocet 5/325 Mg Tab) 1 tab PO Q4H PRN PRN Reason: Pain, moderate (4-7) Stop: 03/13/18 16:07 Last Admin: 03/06/18 16:50 Dose: 1 tab Pantoprazole Sodium (Protonix Ec Tab) 40 mg PO DAILY [facility] Last Admin: 03/06/18 10:05 Dose: 40 mg Potassium Phos/Sodium Phos (Neutra-Phos) 1 pkt PO BID [facility] Last Admin: 03/06/18 10:05 Dose: 1 pkt Prednisone (Prednisone Tab) 5 mg PO DAILY [facility] Last Admin: 03/06/18 10:05 Dose: 5 mg Rifampin (Rifampin Cap) 600 mg PO DAILY [facility] PRN Reason: Protocol Last Admin: 03/06/18 10:05 Dose: 600 mg Rosuvastatin Calcium (Crestor) 5 mg PO HS [facility] Last Admin: 03/05/18 21:25 Dose: 5 mg Sodium Bicarbonate (Sodium Bicarbonate Tab) 650 mg PO TID [facility] Last Admin: 03/06/18 13:32 Dose: 650 mg Tacrolimus (Prograf Cap) 2 mg PO Q12 [facility] Last Admin: 03/06/18 10:05 Dose: 2 mg - Labs Labs: 03/06/18 11:40 03/06/18 07:11 PT 10.8 SECONDS (9.7-12.2) 02/28/18 11:22 INR 1.0 02/28/18 11:22 APTT 29 SECONDS (21-34) 02/28/18 11:22
--- NOTE | 2018-03-06 23:25 | CP.PCM.PN ---
Subjective - Date & Time of Evaluation Date of Evaluation: 03/06/18 Time of Evaluation: 14:00 - Subjective Subjective: Patient still with left knee pain, but the left knee is less swollen and with better flexion. Back on Eliquis PO. Objective - Vital Signs/Intake and Output Vital Signs (last 24 hours): Temp Pulse Resp BP Pulse Ox 98.7 F 91 H 20 148/76 100 03/06/18 15:52 03/06/18 15:52 03/06/18 15:52 03/06/18 15:52 03/06/18 15:52 Intake and Output: 03/06/18 03/07/18 18:59 06:59 Intake Total 800 Balance 800 - Medications Medications: Current Medications Albuterol/Ipratropium (Duoneb 3 Mg/0.5 Mg (3 Ml) Ud) 3 ml INH RQ6 [facility] Last Admin: 03/06/18 19:59 Dose: 3 ml Apixaban (Eliquis) 2.5 mg PO BID [facility] Last Admin: 03/06/18 18:42 Dose: 2.5 mg Calcium/Vitamin D (Oyster Shell Calcium/Vitamin D 500 Mg-200 Iu) 1 tab PO DAILY [facility] Last Admin: 03/06/18 10:05 Dose: 1 tab Dextrose (Dextrose 50% Inj) 0 ml IV STAT PRN; Protocol PRN Reason: Hypoglycemia Protocol Dextrose (Glutose 15) 0 gm PO ONCE PRN; Protocol PRN Reason: Hypoglycemia Protocol Diltiazem HCl (Cardizem Cd) 240 mg PO DAILY [facility] Last Admin: 03/06/18 10:05 Dose: 240 mg Ergocalciferol (Drisdol 50,000 Intl Units Cap) 1 cap PO QWK [facility] Ethambutol HCl (Myambutol) 400 mg PO Q8H [facility] PRN Reason: Protocol Last Admin: 03/06/18 18:42 Dose: 400 mg Folic Acid (Folic Acid) 1 mg PO DAILY [facility] Last Admin: 03/06/18 10:05 Dose: 1 mg Glucagon (Glucagen Diagnostic Kit) 0 mg IM STAT PRN; Protocol PRN Reason: Hypoglycemia Protocol Home Med (Patient's Own Medication) 1 tab PO DAILY [facility] Last Admin: 03/06/18 10:05 Dose: 1 tab Daptomycin 310 mg/ Sodium (Chloride) 100 mls @ 100 mls/hr IV Q24H [facility] PRN Reason: Protocol Stop: 03/11/18 16:01 Last Admin: 03/06/18 16:52 Dose: 100 mls/hr Insulin Aspart (Novolog) 0 unit SC ACHS [facility] PRN Reason: Protocol Last Admin: 03/06/18 21:43 Dose: Not Given Isoniazid (Niazid) 300 mg PO DAILY [facility] PRN Reason: Protocol Last Admin: 03/06/18 10:05 Dose: 300 mg Levothyroxine Sodium (Synthroid) 175 mcg PO DAILY@0630 [facility] Last Admin: 03/06/18 05:49 Dose: 175 mcg Magnesium Oxide (Mag-Ox) 800 mg PO BID [facility] Last Admin: 03/06/18 18:41 Dose: 800 mg Montelukast Sodium (Singulair) 10 mg PO DAILY [facility] Last Admin: 03/06/18 10:05 Dose: 10 mg Oxycodone/Acetaminophen (Percocet 5/325 Mg Tab) 1 tab PO Q4H PRN PRN Reason: Pain, moderate (4-7) Stop: 03/13/18 16:07 Last Admin: 03/06/18 16:50 Dose: 1 tab Pantoprazole Sodium (Protonix Ec Tab) 40 mg PO DAILY [facility] Last Admin: 03/06/18 10:05 Dose: 40 mg Potassium Phos/Sodium Phos (Neutra-Phos) 1 pkt PO BID [facility] Last Admin: 03/06/18 18:42 Dose: 1 pkt Prednisone (Prednisone Tab) 5 mg PO DAILY [facility] Last Admin: 03/06/18 10:05 Dose: 5 mg Rifampin (Rifampin Cap) 600 mg PO DAILY [facility] PRN Reason: Protocol Last Admin: 03/06/18 10:05 Dose: 600 mg Rosuvastatin Calcium (Crestor) 5 mg PO HS [facility] Last Admin: 03/06/18 21:56 Dose: 5 mg Sodium Bicarbonate (Sodium Bicarbonate Tab) 650 mg PO TID [facility] Last Admin: 03/06/18 18:41 Dose: 650 mg Tacrolimus (Prograf Cap) 2 mg PO Q12 [facility] Last Admin: 03/06/18 21:56 Dose: 2 mg - Labs Labs: 03/06/18 11:40 03/06/18 07:11 PT 10.8 SECONDS (9.7-12.2) 02/28/18 11:22 INR 1.0 02/28/18 11:22 APTT 29 SECONDS (21-34) 02/28/18 11:22 - Constitutional Appears: No Acute Distress, Chronically Ill - Head Exam Head Exam: NORMAL INSPECTION - Eye Exam Eye Exam: Normal appearance - ENT Exam ENT Exam: Normal Exam - Neck Exam Neck Exam: Normal Inspection - Respiratory Exam Respiratory Exam: Clear to Ausculation Bilateral, NORMAL BREATHING PATTERN - Cardiovascular Exam Cardiovascular Exam: REGULAR RHYTHM, Murmur - GI/Abdominal Exam GI & Abdominal Exam: Soft, Normal Bowel Sounds - Rectal Exam Rectal Exam: Deferred - Extremities Exam Additional comments: Swollen and tender left knee. - Back Exam Back Exam: NORMAL INSPECTION - Neurological Exam Neurological Exam: Alert, Awake - Psychiatric Exam Psychiatric exam: Anxious - Skin Skin Exam: Dry, Normal Color, Warm Assessment and Plan (1) Septic arthritis of knee, left Assessment & Plan: On IV Cubicin and anti-TB medications. Status: Acute (2) Severe sepsis Status: Acute (3) History of renal transplant Status: Chronic (4) Hypotension Status: Resolved
[2018-03-07] MEDS: Albuterol-Ipratrop 3 mg / 0.5 (3 ml) UD INH SCH ×4 (02:00→20:01)
--- NOTE | 2018-03-07 05:01 | PN ---
Copied To: Sarai Perea MD Attending MD: Sarai Perea MD DATE: 03/06/2018 INFECTIOUS DISEASE FOLLOWUP NOTE SUBJECTIVE: The patient is seen. I am covering for Dr. Nash team. 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 The patient has lot of bands. I went to see him. He is awake and alert. The family members are there. They showed me that he has skin abrasion in the back and has been having a rash. He has some powder on top of it, and the knee is flexed. He is lying in a semi-flexed position. Complaining of pain. PHYSICAL EXAMINATION: GENERAL: He is on oxygen but no respiratory distress. VITAL SIGNS: T-max is 98.7, pulse 91, blood pressure 148/76, respirations are 20. HEENT: Head is atraumatic, normocephalic. NECK: Supple. LUNGS: Clear. There are occasional rhonchi. HEART: S1, S2 are regular. ABDOMEN: Soft, nontender. EXTREMITIES: Knee is flexed but there is no redness. He is, however, in pain. Leg has no swelling. He was seen by Dr. Tovar, the orthopedic doctor, and remains afebrile. He is on daptomycin and on HIV medications at this time. Right leg is unremarkable. LABORATORY DATA: Labs are noted. Labs show white count is 8, hemoglobin 9.6, hematocrit 29.7, platelet count is 312. I was told bands are 10. His chemistry came out, BUN is 14, creatinine 0.9, sodium 130. His liver enzymes are not elevated. ASSESSMENT AND PLAN: Body fluids came out no growth. 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 He is on treatment for that. He remains with bandemia. Cubicin has been added. We will follow. He is also on Eliquis. He is also on prednisone. He is also on tacrolimus. We will follow. Sarai Perea MD
[2018-03-07] MEDS: Levothyroxine 175 MCG TAB PO SCH (06:00)
[2018-03-07] MEDS: (Novolog) Insulin Aspart, Recombinant 100 u/ml 10 ml vial SC SCH ×4 (07:47→21:59)
[2018-03-07 08:35] LABS: HEMOGLOBIN 9.6 g/dL (12.0-18.0); MEAN CORPUSCULAR HEMOGLOBIN 25.7 pg (27.0-31.0); MEAN CORPUSCULAR HGB CONC 33.6 g/dL (33.0-37.0); MEAN PLATELET VOLUME 7.4 fL (7.2-11.7); RBC 3.72 Mil/uL (4.40-5.90); RED CELL DISTRIBUTION WIDTH 19.4 % (11.5-14.5); WHITE BLOOD COUNT 8.3 K/uL (4.8-10.8)
[2018-03-07 08:38] LABS: MEAN CELL VOLUME 76.7 fL (80.0-94.0)
--- NOTE | 2018-03-07 09:07 | CP.PCM.PN ---
Subjective - Date & Time of Evaluation Date of Evaluation: 03/07/18 Time of Evaluation: 09:05 - Subjective Subjective: seen and examined bp stable afebrile c/o left knee pain no n/v/d/sob/dizziness/cp very lethargic Objective - Vital Signs/Intake and Output Vital Signs (last 24 hours): Temp Pulse Resp BP Pulse Ox 98.0 F 96 H 20 147/59 L 100 03/07/18 08:00 03/07/18 08:00 03/07/18 08:00 03/07/18 08:00 03/07/18 08:00 Intake and Output: 03/07/18 03/07/18 06:59 18:59 Intake Total 250 Output Total 300 Balance -50 - Medications Medications: Current Medications Albuterol/Ipratropium (Duoneb 3 Mg/0.5 Mg (3 Ml) Ud) 3 ml INH RQ6 [facility] Last Admin: 03/07/18 07:11 Dose: 3 ml Apixaban (Eliquis) 2.5 mg PO BID [facility] Last Admin: 03/06/18 18:42 Dose: 2.5 mg Calcium/Vitamin D (Oyster Shell Calcium/Vitamin D 500 Mg-200 Iu) 1 tab PO DAILY [facility] Last Admin: 03/06/18 10:05 Dose: 1 tab Dextrose (Dextrose 50% Inj) 0 ml IV STAT PRN; Protocol PRN Reason: Hypoglycemia Protocol Dextrose (Glutose 15) 0 gm PO ONCE PRN; Protocol PRN Reason: Hypoglycemia Protocol Diltiazem HCl (Cardizem Cd) 240 mg PO DAILY [facility] Last Admin: 03/06/18 10:05 Dose: 240 mg Ergocalciferol (Drisdol 50,000 Intl Units Cap) 1 cap PO QWK [facility] Ethambutol HCl (Myambutol) 400 mg PO Q8H [facility] PRN Reason: Protocol Last Admin: 03/07/18 03:59 Dose: 400 mg Folic Acid (Folic Acid) 1 mg PO DAILY [facility] Last Admin: 03/06/18 10:05 Dose: 1 mg Glucagon (Glucagen Diagnostic Kit) 0 mg IM STAT PRN; Protocol PRN Reason: Hypoglycemia Protocol Home Med (Patient's Own Medication) 1 tab PO DAILY [facility] Last Admin: 03/06/18 10:05 Dose: 1 tab Daptomycin 310 mg/ Sodium (Chloride) 100 mls @ 100 mls/hr IV Q24H [facility] PRN Reason: Protocol Stop: 03/11/18 16:01 Last Admin: 03/06/18 16:52 Dose: 100 mls/hr Insulin Aspart (Novolog) 0 unit SC ACHS [facility] PRN Reason: Protocol Last Admin: 03/07/18 07:47 Dose: Not Given Isoniazid (Niazid) 300 mg PO DAILY [facility] PRN Reason: Protocol Last Admin: 03/06/18 10:05 Dose: 300 mg Levothyroxine Sodium (Synthroid) 175 mcg PO DAILY@0630 [facility] Last Admin: 03/07/18 06:00 Dose: 175 mcg Magnesium Oxide (Mag-Ox) 800 mg PO BID [facility] Last Admin: 03/06/18 18:41 Dose: 800 mg Montelukast Sodium (Singulair) 10 mg PO DAILY [facility] Last Admin: 03/06/18 10:05 Dose: 10 mg Oxycodone/Acetaminophen (Percocet 5/325 Mg Tab) 1 tab PO Q4H PRN PRN Reason: Pain, moderate (4-7) Stop: 03/13/18 16:07 Last Admin: 03/06/18 16:50 Dose: 1 tab Pantoprazole Sodium (Protonix Ec Tab) 40 mg PO DAILY [facility] Last Admin: 03/06/18 10:05 Dose: 40 mg Potassium Phos/Sodium Phos (Neutra-Phos) 1 pkt PO BID [facility] Last Admin: 03/06/18 18:42 Dose: 1 pkt Prednisone (Prednisone Tab) 5 mg PO DAILY [facility] Last Admin: 03/06/18 10:05 Dose: 5 mg Rifampin (Rifampin Cap) 600 mg PO DAILY [facility] PRN Reason: Protocol Last Admin: 03/06/18 10:05 Dose: 600 mg Rosuvastatin Calcium (Crestor) 5 mg PO HS [facility] Last Admin: 03/06/18 21:56 Dose: 5 mg Sodium Bicarbonate (Sodium Bicarbonate Tab) 650 mg PO TID [facility] Last Admin: 03/06/18 18:41 Dose: 650 mg Tacrolimus (Prograf Cap) 2 mg PO Q12 [facility] Last Admin: 03/06/18 21:56 Dose: 2 mg - Labs Labs: 03/07/18 08:16 03/06/18 07:11 PT 10.8 SECONDS (9.7-12.2) 02/28/18 11:22 INR 1.0 02/28/18 11:22 APTT 29 SECONDS (21-34) 02/28/18 11:22 - Constitutional Appears: No Acute Distress, Chronically Ill - Head Exam Head Exam: NORMAL INSPECTION, NORMOCEPHALIC - Eye Exam Eye Exam: Normal appearance Pupil Exam: PERRL - ENT Exam ENT Exam: Mucous Membranes Moist, Normal Exam - Neck Exam Neck Exam: Normal Inspection - Respiratory Exam Respiratory Exam: Clear to Ausculation Bilateral, NORMAL BREATHING PATTERN - Cardiovascular Exam Cardiovascular Exam: REGULAR RHYTHM, RRR - GI/Abdominal Exam GI & Abdominal Exam: Soft, Normal Bowel Sounds - Back Exam Back Exam: NORMAL INSPECTION (left knee tenderness ) - Neurological Exam Neurological Exam: Alert, Awake, Oriented x3 Assessment and Plan (1) Acute gout of left knee Status: Acute (2) Hypotension Status: Resolved (3) Septic arthritis of knee, left Status: Acute (4) Chronic atrial fibrillation Status: Acute (5) Chronic kidney disease, stage III (moderate) Status: Acute (6) DM type 2 (diabetes mellitus, type 2) Status: Acute (7) HTN (hypertension), benign Status: Acute - Assessment and Plan (Free Text) Assessment: # renal transplant , ckd 3 # TB knee effusion # htn # dm plan: renal function stable. check prograf levels antitubercular drugs
[2018-03-07 09:13] LABS: ALB/GLOB RATIO 0.9 (1.0-2.1); ALBUMIN 2.9 g/dL (3.5-5.0); ALT/SGPT 19 U/L (21-72); AST/SGOT 51 U/L (17-59); BLOOD UREA NITROGEN 14 mg/dL (9-20); CALCIUM 8.7 mg/dl (8.6-10.4); GFR NON-AFRICAN AMERICAN > 60
[2018-03-07] MEDS: Febuxostat [Uloric] 80 MG PO SCH (10:00)
[2018-03-07] MEDS: Calcium-Vit D 500 mg-200 Units Tab UD PO SCH (10:01)
[2018-03-07] MEDS: Pantoprazole 40 mg EC Tab PO SCH (10:01)
[2018-03-07] MEDS: diltiaZEM 240 mg/24 Hours CD Cap PO SCH (10:01)
[2018-03-07] MEDS: Potassium & Sodium Phosphate PO SCH ×2 (10:01→18:22)
[2018-03-07] MEDS: Magnesium Oxide 400 mg Tab UD PO SCH ×2 (10:01→18:22)
--- NOTE | 2018-03-07 11:00 | CP.PCM.PN ---
Subjective - Date & Time of Evaluation Date of Evaluation: 03/07/18 Time of Evaluation: 10:58 - Subjective Subjective: Patient still complaining of knee pain. Objective - Vital Signs/Intake and Output Vital Signs (last 24 hours): Temp Pulse Resp BP Pulse Ox 98.0 F 96 H 20 147/59 L 100 03/07/18 08:00 03/07/18 08:00 03/07/18 08:00 03/07/18 08:00 03/07/18 08:00 Intake and Output: 03/07/18 03/07/18 06:59 18:59 Intake Total 250 Output Total 300 Balance -50 - Medications Medications: Current Medications Albuterol/Ipratropium (Duoneb 3 Mg/0.5 Mg (3 Ml) Ud) 3 ml INH RQ6 [facility] Last Admin: 03/07/18 07:11 Dose: 3 ml Apixaban (Eliquis) 2.5 mg PO BID [facility] Last Admin: 03/07/18 10:01 Dose: 2.5 mg Calcium/Vitamin D (Oyster Shell Calcium/Vitamin D 500 Mg-200 Iu) 1 tab PO DAILY [facility] Last Admin: 03/07/18 10:01 Dose: 1 tab Dextrose (Dextrose 50% Inj) 0 ml IV STAT PRN; Protocol PRN Reason: Hypoglycemia Protocol Dextrose (Glutose 15) 0 gm PO ONCE PRN; Protocol PRN Reason: Hypoglycemia Protocol Diltiazem HCl (Cardizem Cd) 240 mg PO DAILY [facility] Last Admin: 03/07/18 10:01 Dose: 240 mg Ergocalciferol (Drisdol 50,000 Intl Units Cap) 1 cap PO QWK [facility] Ethambutol HCl (Myambutol) 400 mg PO Q8H [facility] PRN Reason: Protocol Last Admin: 03/07/18 03:59 Dose: 400 mg Folic Acid (Folic Acid) 1 mg PO DAILY [facility] Last Admin: 03/07/18 10:01 Dose: 1 mg Glucagon (Glucagen Diagnostic Kit) 0 mg IM STAT PRN; Protocol PRN Reason: Hypoglycemia Protocol Home Med (Patient's Own Medication) 1 tab PO DAILY [facility] Last Admin: 03/07/18 10:00 Dose: 1 tab Daptomycin 310 mg/ Sodium (Chloride) 100 mls @ 100 mls/hr IV Q24H [facility] PRN Reason: Protocol Stop: 03/11/18 16:01 Last Admin: 03/06/18 16:52 Dose: 100 mls/hr Insulin Aspart (Novolog) 0 unit SC ACHS [facility] PRN Reason: Protocol Last Admin: 03/07/18 07:47 Dose: Not Given Isoniazid (Niazid) 300 mg PO DAILY [facility] PRN Reason: Protocol Last Admin: 03/07/18 10:01 Dose: 300 mg Levothyroxine Sodium (Synthroid) 175 mcg PO DAILY@0630 [facility] Last Admin: 03/07/18 06:00 Dose: 175 mcg Magnesium Oxide (Mag-Ox) 800 mg PO BID [facility] Last Admin: 03/07/18 10:01 Dose: 800 mg Montelukast Sodium (Singulair) 10 mg PO DAILY [facility] Last Admin: 03/07/18 10:01 Dose: 10 mg Oxycodone/Acetaminophen (Percocet 5/325 Mg Tab) 1 tab PO Q4H PRN PRN Reason: Pain, moderate (4-7) Stop: 03/13/18 16:07 Last Admin: 03/06/18 16:50 Dose: 1 tab Pantoprazole Sodium (Protonix Ec Tab) 40 mg PO DAILY [facility] Last Admin: 03/07/18 10:01 Dose: 40 mg Potassium Phos/Sodium Phos (Neutra-Phos) 1 pkt PO BID [facility] Last Admin: 03/07/18 10:01 Dose: 1 pkt Prednisone (Prednisone Tab) 5 mg PO DAILY [facility] Last Admin: 03/07/18 10:01 Dose: 5 mg Rifampin (Rifampin Cap) 600 mg PO DAILY [facility] PRN Reason: Protocol Last Admin: 03/07/18 10:01 Dose: 600 mg Rosuvastatin Calcium (Crestor) 5 mg PO HS [facility] Last Admin: 03/06/18 21:56 Dose: 5 mg Sodium Bicarbonate (Sodium Bicarbonate Tab) 650 mg PO TID [facility] Last Admin: 03/07/18 10:01 Dose: 650 mg Tacrolimus (Prograf Cap) 2 mg PO Q12 [facility] Last Admin: 03/07/18 10:01 Dose: 2 mg - Labs Labs: 03/07/18 08:16 03/07/18 08:16 PT 10.8 SECONDS (9.7-12.2) 02/28/18 11:22 INR 1.0 02/28/18 11:22 APTT 29 SECONDS (21-34) 02/28/18 11:22 - Extremities Exam Additional comments: joint effusion no change since yesterday, ROM 5-60 with mild pain today incisions intact dry no erythema calves soft NT neg homANS +dp/pt PULSES Assessment and Plan (1) Tuberculosis of left knee joint Assessment & Plan: treatment as per ID improving clinically PT/OT VTE proph monitor for worsening/need for repeat I&D f/u mycobac cx d/w Dr. Tovar, agrees with above Status: Acute (2) Septic arthritis of knee, left Status: Acute (3) Acute gout of left knee Status: Acute
--- NOTE | 2018-03-07 22:31 | CP.PCM.PN ---
Subjective - Date & Time of Evaluation Date of Evaluation: 03/07/18 Time of Evaluation: 16:30 - Subjective Subjective: Patient with severe pain of the left knee, but remains afefrile with less swelling of the left knee and improved flexion of the left knee. On IV Cubicin and anti-TB meds. Objective - Vital Signs/Intake and Output Vital Signs (last 24 hours): Temp Pulse Resp BP Pulse Ox 99.3 F 98 H 20 92/31 L 100 03/07/18 15:30 03/07/18 15:30 03/07/18 15:30 03/07/18 15:30 03/07/18 15:30 Intake and Output: 03/07/18 03/08/18 18:59 06:59 Intake Total 750 Output Total 300 Balance 450 - Medications Medications: Current Medications Albuterol/Ipratropium (Duoneb 3 Mg/0.5 Mg (3 Ml) Ud) 3 ml INH RQ6 [facility] Last Admin: 03/07/18 20:01 Dose: 3 ml Apixaban (Eliquis) 2.5 mg PO BID [facility] Last Admin: 03/07/18 18:22 Dose: 2.5 mg Calcium/Vitamin D (Oyster Shell Calcium/Vitamin D 500 Mg-200 Iu) 1 tab PO DAILY [facility] Last Admin: 03/07/18 10:01 Dose: 1 tab Dextrose (Dextrose 50% Inj) 0 ml IV STAT PRN; Protocol PRN Reason: Hypoglycemia Protocol Dextrose (Glutose 15) 0 gm PO ONCE PRN; Protocol PRN Reason: Hypoglycemia Protocol Diltiazem HCl (Cardizem Cd) 240 mg PO DAILY [facility] Last Admin: 03/07/18 10:01 Dose: 240 mg Ergocalciferol (Drisdol 50,000 Intl Units Cap) 1 cap PO QWK [facility] Ethambutol HCl (Myambutol) 400 mg PO Q8H [facility] PRN Reason: Protocol Last Admin: 03/07/18 20:10 Dose: 400 mg Folic Acid (Folic Acid) 1 mg PO DAILY [facility] Last Admin: 03/07/18 10:01 Dose: 1 mg Glucagon (Glucagen Diagnostic Kit) 0 mg IM STAT PRN; Protocol PRN Reason: Hypoglycemia Protocol Home Med (Patient's Own Medication) 1 tab PO DAILY [facility] Last Admin: 03/07/18 10:00 Dose: 1 tab Daptomycin 310 mg/ Sodium (Chloride) 100 mls @ 100 mls/hr IV Q24H [facility] PRN Reason: Protocol Stop: 03/11/18 16:01 Last Admin: 03/07/18 17:00 Dose: 100 mls/hr Insulin Aspart (Novolog) 0 unit SC ACHS [facility] PRN Reason: Protocol Last Admin: 03/07/18 21:59 Dose: Not Given Isoniazid (Niazid) 300 mg PO DAILY [facility] PRN Reason: Protocol Last Admin: 03/07/18 10:01 Dose: 300 mg Levothyroxine Sodium (Synthroid) 175 mcg PO DAILY@0630 [facility] Last Admin: 03/07/18 06:00 Dose: 175 mcg Magnesium Oxide (Mag-Ox) 800 mg PO BID [facility] Last Admin: 03/07/18 18:22 Dose: 800 mg Montelukast Sodium (Singulair) 10 mg PO DAILY [facility] Last Admin: 03/07/18 10:01 Dose: 10 mg Oxycodone/Acetaminophen (Percocet 5/325 Mg Tab) 1 tab PO Q4H PRN PRN Reason: Pain, moderate (4-7) Stop: 03/13/18 16:07 Last Admin: 03/06/18 16:50 Dose: 1 tab Pantoprazole Sodium (Protonix Ec Tab) 40 mg PO DAILY [facility] Last Admin: 03/07/18 10:01 Dose: 40 mg Potassium Phos/Sodium Phos (Neutra-Phos) 1 pkt PO BID [facility] Last Admin: 03/07/18 18:22 Dose: 1 pkt Prednisone (Prednisone Tab) 5 mg PO DAILY [facility] Last Admin: 03/07/18 10:01 Dose: 5 mg Pyridoxine HCl (Vitamin B6 50 Mg Tab) 50 mg PO DAILY [facility] Last Admin: 03/07/18 13:11 Dose: 50 mg Rifampin (Rifampin Cap) 600 mg PO DAILY [facility] PRN Reason: Protocol Last Admin: 03/07/18 10:01 Dose: 600 mg Rosuvastatin Calcium (Crestor) 5 mg PO HS [facility] Last Admin: 03/07/18 21:54 Dose: 5 mg Sodium Bicarbonate (Sodium Bicarbonate Tab) 650 mg PO TID [facility] Last Admin: 03/07/18 18:22 Dose: 650 mg Tacrolimus (Prograf Cap) 2 mg PO Q12 [facility] Last Admin: 08/28/18 21:54 Dose: 2 mg - Labs Labs: 03/07/18 08:16 03/07/18 08:16 PT 10.8 SECONDS (9.7-12.2) 02/28/18 11:22 INR 1.0 02/28/18 11:22 APTT 29 SECONDS (21-34) 02/28/18 11:22 - Constitutional Appears: No Acute Distress, Chronically Ill - Head Exam Head Exam: NORMAL INSPECTION - Eye Exam Eye Exam: Normal appearance Pupil Exam: NORMAL ACCOMODATION - ENT Exam ENT Exam: Normal Exam - Neck Exam Neck Exam: Normal Inspection - Respiratory Exam Respiratory Exam: Clear to Ausculation Bilateral, NORMAL BREATHING PATTERN - Cardiovascular Exam Cardiovascular Exam: REGULAR RHYTHM - GI/Abdominal Exam GI & Abdominal Exam: Soft, Normal Bowel Sounds - Rectal Exam Rectal Exam: Deferred - Exam Exam: NORMAL INSPECTION - Extremities Exam Additional comments: Swollen and tender left knee. - Back Exam Back Exam: NORMAL INSPECTION - Neurological Exam Neurological Exam: Alert, Awake, Oriented x3 - Psychiatric Exam Psychiatric exam: Anxious - Skin Skin Exam: Normal Color, Warm Assessment and Plan (1) Septic arthritis of knee, left Assessment & Plan: On antibiotic and anti-TB meds. Status: Acute (2) Severe sepsis Status: Acute (3) History of renal transplant Status: Chronic (4) Hypotension Status: Resolved
[2018-03-08] MEDS: Albuterol-Ipratrop 3 mg / 0.5 (3 ml) UD INH SCH ×4 (01:16→19:41)
[2018-03-08] MEDS: Levothyroxine 175 MCG TAB PO SCH (05:58)
[2018-03-08] MEDS: (Novolog) Insulin Aspart, Recombinant 100 u/ml 10 ml vial SC SCH ×4 (07:42→21:50)
[2018-03-08 08:33] LABS: ALB/GLOB RATIO 0.9 (1.0-2.1); ALT/SGPT 22 U/L (21-72); AST/SGOT 35 U/L (17-59); BLOOD UREA NITROGEN 14 mg/dL (9-20); CALCIUM 8.8 mg/dl (8.6-10.4); GFR NON-AFRICAN AMERICAN > 60
[2018-03-08] MEDS: Febuxostat [Uloric] 80 MG PO SCH (11:01)
[2018-03-08] MEDS: Pantoprazole 40 mg EC Tab PO SCH (11:01)
[2018-03-08] MEDS: Ergocalciferol 50,000 Intl Units Cap PO SCH ×2 (11:01→11:02)
[2018-03-08] MEDS: Potassium & Sodium Phosphate PO SCH ×2 (11:01→17:20)
[2018-03-08] MEDS: Calcium-Vit D 500 mg-200 Units Tab UD PO SCH (11:02)
[2018-03-08] MEDS: Magnesium Oxide 400 mg Tab UD PO SCH ×2 (11:03→17:20)
[2018-03-08] MEDS: diltiaZEM 240 mg/24 Hours CD Cap PO SCH (11:04)
[2018-03-08] MEDS: Oxycodone/Acetaminophen 5/325 mg Tab PO PRN (11:08)
--- NOTE | 2018-03-08 13:17 | CP.PCM.PN ---
Subjective - Date & Time of Evaluation Date of Evaluation: 03/08/18 Time of Evaluation: 13:17 - Subjective Subjective: Patient still complaining of left knee pain, no new complaints. Objective - Vital Signs/Intake and Output Vital Signs (last 24 hours): Temp Pulse Resp BP Pulse Ox 98.2 F 96 H 20 176/89 H 100 03/08/18 08:38 03/08/18 08:00 03/08/18 08:00 03/08/18 08:00 03/08/18 08:00 Intake and Output: 03/08/18 03/08/18 06:59 18:59 Intake Total 300 Output Total 300 Balance 0 - Medications Medications: Current Medications Albuterol/Ipratropium (Duoneb 3 Mg/0.5 Mg (3 Ml) Ud) 3 ml INH RQ6 [facility] Last Admin: 03/08/18 07:53 Dose: 3 ml Apixaban (Eliquis) 2.5 mg PO BID [facility] Last Admin: 03/08/18 11:01 Dose: 2.5 mg Calcium/Vitamin D (Oyster Shell Calcium/Vitamin D 500 Mg-200 Iu) 1 tab PO DAILY [facility] Last Admin: 03/08/18 11:02 Dose: 1 tab Dextrose (Dextrose 50% Inj) 0 ml IV STAT PRN; Protocol PRN Reason: Hypoglycemia Protocol Dextrose (Glutose 15) 0 gm PO ONCE PRN; Protocol PRN Reason: Hypoglycemia Protocol Diltiazem HCl (Cardizem Cd) 240 mg PO DAILY [facility] Last Admin: 03/08/18 11:04 Dose: 240 mg Ergocalciferol (Drisdol 50,000 Intl Units Cap) 1 cap PO QWK [facility] Last Admin: 03/08/18 11:02 Dose: 1 cap Ethambutol HCl (Myambutol) 400 mg PO Q8H [facility] PRN Reason: Protocol Last Admin: 03/08/18 11:03 Dose: 400 mg Folic Acid (Folic Acid) 1 mg PO DAILY [facility] Last Admin: 03/08/18 11:03 Dose: 1 mg Glucagon (Glucagen Diagnostic Kit) 0 mg IM STAT PRN; Protocol PRN Reason: Hypoglycemia Protocol Home Med (Patient's Own Medication) 1 tab PO DAILY [facility] Last Admin: 03/08/18 11:01 Dose: 1 tab Daptomycin 310 mg/ Sodium (Chloride) 100 mls @ 100 mls/hr IV Q24H [facility] PRN Reason: Protocol Stop: 03/11/18 16:01 Last Admin: 03/07/18 17:00 Dose: 100 mls/hr Insulin Aspart (Novolog) 0 unit SC ACHS [facility] PRN Reason: Protocol Last Admin: 03/08/18 12:00 Dose: Not Given Isoniazid (Niazid) 300 mg PO DAILY [facility] PRN Reason: Protocol Last Admin: 03/08/18 11:02 Dose: 300 mg Levothyroxine Sodium (Synthroid) 175 mcg PO DAILY@0630 [facility] Last Admin: 03/08/18 05:58 Dose: 175 mcg Magnesium Oxide (Mag-Ox) 800 mg PO BID [facility] Last Admin: 03/08/18 11:03 Dose: 800 mg Montelukast Sodium (Singulair) 10 mg PO DAILY [facility] Last Admin: 03/08/18 11:03 Dose: 10 mg Oxycodone/Acetaminophen (Percocet 5/325 Mg Tab) 1 tab PO Q4H PRN PRN Reason: Pain, moderate (4-7) Stop: 03/13/18 16:07 Last Admin: 03/08/18 11:08 Dose: 1 tab Pantoprazole Sodium (Protonix Ec Tab) 40 mg PO DAILY [facility] Last Admin: 03/08/18 11:01 Dose: 40 mg Potassium Phos/Sodium Phos (Neutra-Phos) 1 pkt PO BID [facility] Last Admin: 03/08/18 11:01 Dose: 1 pkt Prednisone (Prednisone Tab) 5 mg PO DAILY [facility] Last Admin: 03/08/18 11:01 Dose: 5 mg Pyridoxine HCl (Vitamin B6 50 Mg Tab) 50 mg PO DAILY [facility] Last Admin: 03/08/18 11:02 Dose: 50 mg Rifampin (Rifampin Cap) 600 mg PO DAILY [facility] PRN Reason: Protocol Last Admin: 03/08/18 11:04 Dose: 600 mg Rosuvastatin Calcium (Crestor) 5 mg PO HS [facility] Last Admin: 03/07/18 21:54 Dose: 5 mg Sodium Bicarbonate (Sodium Bicarbonate Tab) 650 mg PO TID [facility] Last Admin: 03/08/18 11:02 Dose: 650 mg Tacrolimus (Prograf Cap) 2 mg PO Q12 [facility] Last Admin: 03/08/18 11:03 Dose: 2 mg - Labs Labs: 03/07/18 08:16 03/08/18 08:06 PT 10.8 SECONDS (9.7-12.2) 02/28/18 11:22 INR 1.0 02/28/18 11:22 APTT 29 SECONDS (21-34) 02/28/18 11:22 - Extremities Exam Additional comments: joint effusion appears slightly improved, now noted popliteal cyst ROM 0-100 with mild pain, actively calves sosft NT neg homans incisions intact, no erythema +DP/PT pulses Assessment and Plan (1) Tuberculosis of left knee joint Assessment & Plan: cont tx as per ID monitor knee f/u cx d/w Dr. Tovar, agrees with above, continue antibiotics Status: Acute (2) Septic arthritis of knee, left Status: Acute (3) Acute gout of left knee Status: Acute
--- NOTE | 2018-03-08 14:44 | CP.PCM.PN ---
Subjective - Date & Time of Evaluation Date of Evaluation: 03/08/18 Time of Evaluation: 14:41 - Subjective Subjective: weak remains confused family at bedside note poor po intake noted dropping Na Objective - Vital Signs/Intake and Output Vital Signs (last 24 hours): Temp Pulse Resp BP Pulse Ox 98.2 F 96 H 20 176/89 H 100 03/08/18 08:38 03/08/18 08:00 03/08/18 08:00 03/08/18 08:00 03/08/18 08:00 Intake and Output: 03/08/18 03/08/18 06:59 18:59 Intake Total 300 Output Total 300 Balance 0 - Medications Medications: Current Medications Albuterol/Ipratropium (Duoneb 3 Mg/0.5 Mg (3 Ml) Ud) 3 ml INH RQ6 [facility] Last Admin: 03/08/18 07:53 Dose: 3 ml Apixaban (Eliquis) 2.5 mg PO BID [facility] Last Admin: 03/08/18 11:01 Dose: 2.5 mg Calcium/Vitamin D (Oyster Shell Calcium/Vitamin D 500 Mg-200 Iu) 1 tab PO DAILY [facility] Last Admin: 03/08/18 11:02 Dose: 1 tab Dextrose (Dextrose 50% Inj) 0 ml IV STAT PRN; Protocol PRN Reason: Hypoglycemia Protocol Dextrose (Glutose 15) 0 gm PO ONCE PRN; Protocol PRN Reason: Hypoglycemia Protocol Diltiazem HCl (Cardizem Cd) 240 mg PO DAILY [facility] Last Admin: 03/08/18 11:04 Dose: 240 mg Ergocalciferol (Drisdol 50,000 Intl Units Cap) 1 cap PO QWK [facility] Last Admin: 03/08/18 11:02 Dose: 1 cap Ethambutol HCl (Myambutol) 400 mg PO Q8H [facility] PRN Reason: Protocol Last Admin: 03/08/18 11:03 Dose: 400 mg Folic Acid (Folic Acid) 1 mg PO DAILY [facility] Last Admin: 03/08/18 11:03 Dose: 1 mg Glucagon (Glucagen Diagnostic Kit) 0 mg IM STAT PRN; Protocol PRN Reason: Hypoglycemia Protocol Home Med (Patient's Own Medication) 1 tab PO DAILY [facility] Last Admin: 03/08/18 11:01 Dose: 1 tab Daptomycin 310 mg/ Sodium (Chloride) 100 mls @ 100 mls/hr IV Q24H [facility] PRN Reason: Protocol Stop: 03/11/18 16:01 Last Admin: 03/07/18 17:00 Dose: 100 mls/hr Insulin Aspart (Novolog) 0 unit SC ACHS [facility] PRN Reason: Protocol Last Admin: 03/08/18 12:00 Dose: Not Given Isoniazid (Niazid) 300 mg PO DAILY [facility] PRN Reason: Protocol Last Admin: 03/08/18 11:02 Dose: 300 mg Levothyroxine Sodium (Synthroid) 175 mcg PO DAILY@0630 [facility] Last Admin: 03/08/18 05:58 Dose: 175 mcg Magnesium Oxide (Mag-Ox) 800 mg PO BID [facility] Last Admin: 03/08/18 11:03 Dose: 800 mg Montelukast Sodium (Singulair) 10 mg PO DAILY [facility] Last Admin: 03/08/18 11:03 Dose: 10 mg Oxycodone/Acetaminophen (Percocet 5/325 Mg Tab) 1 tab PO Q4H PRN PRN Reason: Pain, moderate (4-7) Stop: 03/13/18 16:07 Last Admin: 03/08/18 11:08 Dose: 1 tab Pantoprazole Sodium (Protonix Ec Tab) 40 mg PO DAILY [facility] Last Admin: 03/08/18 11:01 Dose: 40 mg Potassium Phos/Sodium Phos (Neutra-Phos) 1 pkt PO BID [facility] Last Admin: 03/08/18 11:01 Dose: 1 pkt Prednisone (Prednisone Tab) 5 mg PO DAILY [facility] Last Admin: 03/08/18 11:01 Dose: 5 mg Pyridoxine HCl (Vitamin B6 50 Mg Tab) 50 mg PO DAILY [facility] Last Admin: 03/08/18 11:02 Dose: 50 mg Rifampin (Rifampin Cap) 600 mg PO DAILY [facility] PRN Reason: Protocol Last Admin: 03/08/18 11:04 Dose: 600 mg Rosuvastatin Calcium (Crestor) 5 mg PO HS [facility] Last Admin: 03/07/18 21:54 Dose: 5 mg Sodium Bicarbonate (Sodium Bicarbonate Tab) 650 mg PO TID [facility] Last Admin: 03/08/18 11:02 Dose: 650 mg Tacrolimus (Prograf Cap) 2 mg PO Q12 [facility] Last Admin: 03/08/18 11:03 Dose: 2 mg - Labs Labs: 03/07/18 08:16 08/29/18 08:06 PT 10.8 SECONDS (9.7-12.2) 02/28/18 11:22 INR 1.0 02/28/18 11:22 APTT 29 SECONDS (21-34) 02/28/18 11:22 - Constitutional Appears: Confused, Chronically Ill - Head Exam Head Exam: ATRAUMATIC, NORMAL INSPECTION - Eye Exam Eye Exam: EOMI, Normal appearance - ENT Exam ENT Exam: Mucous Membranes Moist - Neck Exam Neck Exam: Full ROM. absent: Lymphadenopathy - Respiratory Exam Respiratory Exam: Decreased Breath Sounds. absent: Rhonchi - Cardiovascular Exam Cardiovascular Exam: REGULAR RHYTHM. absent: Rubs - GI/Abdominal Exam GI & Abdominal Exam: Soft. absent: Tenderness - Extremities Exam Extremities Exam: Pedal Edema Additional comments: left knee bandaged - Neurological Exam Neurological Exam: Alert. absent: Oriented x3 Assessment and Plan - Assessment and Plan (Free Text) Plan: w/u for acute hyponatremia ns for time being, family describe poor po intake if Na drops further, consideration to SIADH also consider transfer to hospital where FK is drawn daily, concerned about multiple meds affecting p450 system
[2018-03-08] MEDS ORDERED: Sodium Chloride 0.9% 1,000 ML IV SCH (14:45)
[2018-03-08 16:49] LABS: OSMOLALITY,URINE 396 mosm/kg (300-1000)
[2018-03-08 20:21] LABS: ALBUMIN 2.9 g/dL (3.5-5.0); ALT/SGPT 20 U/L (21-72); AST/SGOT 19 U/L (17-59); BLOOD UREA NITROGEN 15 mg/dL (9-20); CALCIUM 8.7 mg/dl (8.6-10.4); GFR NON-AFRICAN AMERICAN 60
--- NOTE | 2018-03-08 23:39 | CP.PCM.PN ---
Subjective - Date & Time of Evaluation Date of Evaluation: 03/08/18 Time of Evaluation: 19:15 - Subjective Subjective: Patient still with pain of the left knee, but remains afebrile. His appetite also improves. Objective - Vital Signs/Intake and Output Vital Signs (last 24 hours): Temp Pulse Resp BP Pulse Ox 97.8 F 87 20 94/55 L 98 03/08/18 16:00 03/08/18 18:00 03/08/18 16:00 03/08/18 18:00 03/08/18 16:00 Intake and Output: 03/08/18 03/09/18 18:59 06:59 Intake Total 700 Output Total 300 Balance 400 - Medications Medications: Current Medications Albuterol/Ipratropium (Duoneb 3 Mg/0.5 Mg (3 Ml) Ud) 3 ml INH RQ6 [facility] Last Admin: 03/08/18 19:41 Dose: 3 ml Apixaban (Eliquis) 2.5 mg PO BID [facility] Last Admin: 03/08/18 17:20 Dose: 2.5 mg Calcium/Vitamin D (Oyster Shell Calcium/Vitamin D 500 Mg-200 Iu) 1 tab PO DAILY [facility] Last Admin: 03/08/18 11:02 Dose: 1 tab Dextrose (Dextrose 50% Inj) 0 ml IV STAT PRN; Protocol PRN Reason: Hypoglycemia Protocol Dextrose (Glutose 15) 0 gm PO ONCE PRN; Protocol PRN Reason: Hypoglycemia Protocol Diltiazem HCl (Cardizem Cd) 240 mg PO DAILY [facility] Last Admin: 03/08/18 11:04 Dose: 240 mg Ergocalciferol (Drisdol 50,000 Intl Units Cap) 1 cap PO QWK [facility] Last Admin: 03/08/18 11:02 Dose: 1 cap Ethambutol HCl (Myambutol) 400 mg PO Q8H [facility] PRN Reason: Protocol Last Admin: 03/08/18 20:20 Dose: 400 mg Folic Acid (Folic Acid) 1 mg PO DAILY [facility] Last Admin: 03/08/18 11:03 Dose: 1 mg Glucagon (Glucagen Diagnostic Kit) 0 mg IM STAT PRN; Protocol PRN Reason: Hypoglycemia Protocol Home Med (Patient's Own Medication) 1 tab PO DAILY [facility] Last Admin: 03/08/18 11:01 Dose: 1 tab Daptomycin 310 mg/ Sodium (Chloride) 100 mls @ 100 mls/hr IV Q24H [facility] PRN Reason: Protocol Stop: 03/11/18 16:01 Last Admin: 03/08/18 17:00 Dose: 100 mls/hr Sodium Chloride (Sodium Chloride 0.9%) 1,000 mls @ 50 mls/hr IV .Q20H [facility] Last Admin: 03/08/18 14:57 Dose: 50 mls/hr Insulin Aspart (Novolog) 0 unit SC ACHS [facility] PRN Reason: Protocol Last Admin: 03/08/18 21:50 Dose: Not Given Isoniazid (Niazid) 300 mg PO DAILY [facility] PRN Reason: Protocol Last Admin: 03/08/18 11:02 Dose: 300 mg Levothyroxine Sodium (Synthroid) 175 mcg PO DAILY@0630 [facility] Last Admin: 03/08/18 05:58 Dose: 175 mcg Magnesium Oxide (Mag-Ox) 800 mg PO BID [facility] Last Admin: 03/08/18 17:20 Dose: 800 mg Montelukast Sodium (Singulair) 10 mg PO DAILY [facility] Last Admin: 03/08/18 11:03 Dose: 10 mg Oxycodone/Acetaminophen (Percocet 5/325 Mg Tab) 1 tab PO Q4H PRN PRN Reason: Pain, moderate (4-7) Stop: 03/13/18 16:07 Last Admin: 03/08/18 11:08 Dose: 1 tab Pantoprazole Sodium (Protonix Ec Tab) 40 mg PO DAILY [facility] Last Admin: 03/08/18 11:01 Dose: 40 mg Potassium Phos/Sodium Phos (Neutra-Phos) 1 pkt PO BID [facility] Last Admin: 03/08/18 17:20 Dose: 1 pkt Prednisone (Prednisone Tab) 5 mg PO DAILY [facility] Last Admin: 03/08/18 11:01 Dose: 5 mg Pyridoxine HCl (Vitamin B6 50 Mg Tab) 50 mg PO DAILY [facility] Last Admin: 03/08/18 11:02 Dose: 50 mg Rifampin (Rifampin Cap) 600 mg PO DAILY [facility] PRN Reason: Protocol Last Admin: 03/08/18 11:04 Dose: 600 mg Rosuvastatin Calcium (Crestor) 5 mg PO HS [facility] Last Admin: 03/08/18 21:53 Dose: 5 mg Sodium Bicarbonate (Sodium Bicarbonate Tab) 650 mg PO TID [facility] Last Admin: 03/08/18 17:20 Dose: 650 mg Tacrolimus (Prograf Cap) 2 mg PO Q12 [facility] Last Admin: 03/08/18 21:53 Dose: 2 mg - Labs Labs: 03/07/18 08:16 03/08/18 19:58 PT 10.8 SECONDS (9.7-12.2) 02/28/18 11:22 INR 1.0 02/28/18 11:22 APTT 29 SECONDS (21-34) 02/28/18 11:22 - Constitutional Appears: No Acute Distress, Cachectic, Chronically Ill - Head Exam Head Exam: NORMAL INSPECTION - Eye Exam Eye Exam: Normal appearance - ENT Exam ENT Exam: Normal Exam - Neck Exam Neck Exam: Normal Inspection - Respiratory Exam Respiratory Exam: Clear to Ausculation Bilateral, NORMAL BREATHING PATTERN - Cardiovascular Exam Cardiovascular Exam: REGULAR RHYTHM, Murmur - GI/Abdominal Exam GI & Abdominal Exam: Soft, Normal Bowel Sounds - Rectal Exam Rectal Exam: Deferred - Extremities Exam Additional comments: Tender and swollen left knee. - Back Exam Back Exam: NORMAL INSPECTION - Neurological Exam Neurological Exam: Alert, Awake, Oriented x3 - Psychiatric Exam Psychiatric exam: Anxious - Skin Skin Exam: Dry, Intact, Normal Color Assessment and Plan (1) Septic arthritis of knee, left Assessment & Plan: On IV antiibiotic and PO anti-TB meds. Status: Acute (2) Severe sepsis Status: Acute (3) History of renal transplant Status: Chronic (4) Hypotension Status: Resolved (5) Hyponatremia Assessment & Plan: On IV NS. Status: Acute
--- NOTE | 2018-03-09 00:06 | CARD ---
APPROVED REPORT Date of service: 03/07/2018 EKG Measurement Heart [id number] <Conclusion> Normal sinus rhythm Possible Left atrial enlargement Left axis deviation T wave abnormality, consider lateral ischemia Abnormal ECG
[2018-03-09] MEDS: Oxycodone/Acetaminophen 5/325 mg Tab PO PRN (00:31)
[2018-03-09] MEDS: Albuterol-Ipratrop 3 mg / 0.5 (3 ml) UD INH SCH ×4 (01:09→21:08)
[2018-03-09] MEDS: Levothyroxine 175 MCG TAB PO SCH (05:38)
[2018-03-09 07:34] LABS: ALB/GLOB RATIO 0.8 (1.0-2.1); ALBUMIN 2.6 g/dL (3.5-5.0); ALT/SGPT 19 U/L (21-72); AST/SGOT 21 U/L (17-59); BLOOD UREA NITROGEN 16 mg/dL (9-20); CALCIUM 8.4 mg/dl (8.6-10.4); GFR NON-AFRICAN AMERICAN > 60
[2018-03-09] MEDS: (Novolog) Insulin Aspart, Recombinant 100 u/ml 10 ml vial SC SCH ×3 (07:50→16:30)
--- NOTE | 2018-03-09 09:38 | CP.PCM.PN ---
Subjective - Date & Time of Evaluation Date of Evaluation: 03/09/18 Time of Evaluation: 09:36 - Subjective Subjective: For repeat CT scan knee Still with knee pains on treatment for +afb, gouty arthritis knee renal function stable, FK levels acceptable Na has been low- was on IV saline; switched to D10W for low BSs Objective - Vital Signs/Intake and Output Vital Signs (last 24 hours): Temp Pulse Resp BP Pulse Ox 97.9 F 87 18 142/50 L 100 03/09/18 07:00 03/09/18 07:00 03/09/18 07:00 03/09/18 07:00 03/09/18 07:00 Intake and Output: 03/09/18 03/09/18 06:59 18:59 Intake Total 700 Output Total 300 Balance 400 - Medications Medications: Current Medications Albuterol/Ipratropium (Duoneb 3 Mg/0.5 Mg (3 Ml) Ud) 3 ml INH RQ6 [facility] Last Admin: 03/09/18 07:12 Dose: 3 ml Apixaban (Eliquis) 2.5 mg PO BID [facility] Last Admin: 03/08/18 17:20 Dose: 2.5 mg Calcium/Vitamin D (Oyster Shell Calcium/Vitamin D 500 Mg-200 Iu) 1 tab PO DAILY [facility] Last Admin: 03/08/18 11:02 Dose: 1 tab Dextrose (Dextrose 50% Inj) 0 ml IV STAT PRN; Protocol PRN Reason: Hypoglycemia Protocol Dextrose (Glutose 15) 0 gm PO ONCE PRN; Protocol PRN Reason: Hypoglycemia Protocol Diltiazem HCl (Cardizem Cd) 240 mg PO DAILY [facility] Last Admin: 03/08/18 11:04 Dose: 240 mg Ergocalciferol (Drisdol 50,000 Intl Units Cap) 1 cap PO QWK [facility] Last Admin: 03/08/18 11:02 Dose: 1 cap Ethambutol HCl (Myambutol) 400 mg PO Q8H [facility] PRN Reason: Protocol Last Admin: 03/09/18 03:51 Dose: 400 mg Folic Acid (Folic Acid) 1 mg PO DAILY [facility] Last Admin: 03/08/18 11:03 Dose: 1 mg Glucagon (Glucagen Diagnostic Kit) 0 mg IM STAT PRN; Protocol PRN Reason: Hypoglycemia Protocol Home Med (Patient's Own Medication) 1 tab PO DAILY [facility] Last Admin: 03/08/18 11:01 Dose: 1 tab Daptomycin 310 mg/ Sodium (Chloride) 100 mls @ 100 mls/hr IV Q24H [facility] PRN Reason: Protocol Stop: 03/11/18 16:01 Last Admin: 03/08/18 17:00 Dose: 100 mls/hr Dextrose (Dextrose 10% In Water) 1,000 mls @ 50 mls/hr IV .Q20H [facility] Last Admin: 03/09/18 07:53 Dose: 50 mls/hr Insulin Aspart (Novolog) 0 unit SC ACHS [facility] PRN Reason: Protocol Last Admin: 03/09/18 07:50 Dose: Not Given Isoniazid (Niazid) 300 mg PO DAILY [facility] PRN Reason: Protocol Last Admin: 03/08/18 11:02 Dose: 300 mg Levothyroxine Sodium (Synthroid) 175 mcg PO DAILY@0630 [facility] Last Admin: 03/09/18 05:38 Dose: 175 mcg Magnesium Oxide (Mag-Ox) 800 mg PO BID [facility] Last Admin: 03/08/18 17:20 Dose: 800 mg Montelukast Sodium (Singulair) 10 mg PO DAILY [facility] Last Admin: 03/08/18 11:03 Dose: 10 mg Oxycodone/Acetaminophen (Percocet 5/325 Mg Tab) 1 tab PO Q4H PRN PRN Reason: Pain, moderate (4-7) Stop: 03/13/18 16:07 Last Admin: 03/09/18 00:31 Dose: 1 tab Pantoprazole Sodium (Protonix Ec Tab) 40 mg PO DAILY [facility] Last Admin: 03/08/18 11:01 Dose: 40 mg Potassium Phos/Sodium Phos (Neutra-Phos) 1 pkt PO BID [facility] Last Admin: 03/08/18 17:20 Dose: 1 pkt Prednisone (Prednisone Tab) 5 mg PO DAILY [facility] Last Admin: 03/08/18 11:01 Dose: 5 mg Pyridoxine HCl (Vitamin B6 50 Mg Tab) 50 mg PO DAILY [facility] Last Admin: 03/08/18 11:02 Dose: 50 mg Rifampin (Rifampin Cap) 600 mg PO DAILY [facility] PRN Reason: Protocol Last Admin: 03/08/18 11:04 Dose: 600 mg Rosuvastatin Calcium (Crestor) 5 mg PO [facility] Last Admin: 03/08/18 21:53 Dose: 5 mg Sodium Bicarbonate (Sodium Bicarbonate Tab) 650 mg PO TID [facility] Last Admin: 03/08/18 17:20 Dose: 650 mg Tacrolimus (Prograf Cap) 2 mg PO Q12 [facility] Last Admin: 03/08/18 21:53 Dose: 2 mg - Labs Labs: 03/07/18 08:16 03/09/18 07:10 PT 10.8 SECONDS (9.7-12.2) 02/28/18 11:22 INR 1.0 02/28/18 11:22 APTT 29 SECONDS (21-34) 02/28/18 11:22 - Constitutional Appears: No Acute Distress, Confused, Chronically Ill - Head Exam Head Exam: ATRAUMATIC, NORMAL INSPECTION - Eye Exam Eye Exam: EOMI, Normal appearance - Neck Exam Neck Exam: Normal Inspection. absent: Tenderness - Respiratory Exam Respiratory Exam: Clear to Ausculation Bilateral, NORMAL BREATHING PATTERN - Cardiovascular Exam Cardiovascular Exam: REGULAR RHYTHM, +S1 - GI/Abdominal Exam GI & Abdominal Exam: Soft. absent: Tenderness - Extremities Exam Extremities Exam: Normal Inspection, Tenderness - Neurological Exam Neurological Exam: Altered - Psychiatric Exam Psychiatric exam: Depressed - Skin Skin Exam: Dry, Warm Assessment and Plan (1) Kidney transplant recipient Status: Acute (2) CKD (chronic kidney disease) stage 3, GFR 30-59 ml/min Status: Acute (3) Acute gout of left knee Status: Acute (4) Septic arthritis of knee, left Status: Acute (5) Cardiomyopathy Status: Acute (6) Atrial fibrillation Status: Chronic - Assessment and Plan (Free Text) Plan: CT scan; drainage left knee Change to d5NS IV fluids follow lytes closely check for SIADH
[2018-03-09] MEDS ORDERED: Dextrose 5%/0.9% NS 1,000 ML IV ONE ×2 (09:41→11:46)
[2018-03-09 09:43] LABS: BASO # 0.1 K/uL (0.0-0.2); BASO % 1.3 % (0.0-2.0); EOS # 0.2 K/uL (0.0-0.7); EOS % 3.2 % (0.0-4.0); LYMPH # 0.6 K/uL (1.0-4.3); LYMPH % 7.6 % (20.0-40.0); MEAN CELL VOLUME 76.9 fL (80.0-94.0); MEAN CORPUSCULAR HEMOGLOBIN 25.1 pg (27.0-31.0); MEAN CORPUSCULAR HGB CONC 32.6 g/dL (33.0-37.0); MEAN PLATELET VOLUME 7.5 fL (7.2-11.7); MONO # 0.5 K/uL (0.0-0.8); MONO % 6.6 % (0.0-10.0); NEUT # 6.2 K/uL (1.8-7.0); NEUT % 81.3 % (50.0-75.0); PLATELET COUNT 322 K/uL (130-400); RBC 3.61 Mil/uL (4.40-5.90); RED CELL DISTRIBUTION WIDTH 18.9 % (11.5-14.5); WHITE BLOOD COUNT 7.7 K/uL (4.8-10.8)
[2018-03-09 10:13] LABS: ANISOCYTOSIS SLIGHT; BANDS 1 % (0-2); EOSINOPHIL 2 % (0-4); LYMPHOCYTE 8 % (20-40); MONOCYTE 3 % (0-10); NEUTROPHIL 86 % (50-75); PLATELET ESTIMATE NORMAL (NORMAL); TOTAL CELLS COUNTED 100
[2018-03-09 10:14] LABS: HYPOCHROMIC SLIGHT; MICROCYTOSIS SLIGHT; OVALOCYTES SLIGHT; POLYCHROMIC SLIGHT; TARGET CELLS SLIGHT
[2018-03-09] MEDS: Magnesium Oxide 400 mg Tab UD PO SCH ×2 (11:21→18:37)
[2018-03-09] MEDS: Febuxostat [Uloric] 80 MG PO SCH (11:21)
[2018-03-09] MEDS: diltiaZEM 240 mg/24 Hours CD Cap PO SCH ×2 (11:24→11:29)
[2018-03-09] MEDS: Calcium-Vit D 500 mg-200 Units Tab UD PO SCH (11:24)
[2018-03-09] MEDS: Pantoprazole 40 mg EC Tab PO SCH (11:24)
[2018-03-09] MEDS: Potassium & Sodium Phosphate PO SCH (11:25)
--- NOTE | 2018-03-09 11:50 | CT ---
Date of service: 03/09/2018 PROCEDURE: CT left knee HISTORY: knee pain, r/o collection COMPARISON: Multiple examinations dating back to 02/02/2018 TECHNIQUE: 2.5 mm contiguous axial sections were acquired through the left knee. Sagittal and coronal images were reformatted from the axial scan. No intravenous contrast material was administered for this examination. Total exam DLP: 304.[address] exam was performed using 1 or more of the following dose reduction techniques: Automated exposure control, adjustment of the mA and/or kV according to patient size, and/or use of iterative reconstruction technique. FINDINGS: There is no acute fracture. There is what appears to be a sequestrum forming beneath the patellar articular surface along the lateral condyles. This represents interval change from the CT of 02/02/2018. This may be the result of chronic osteomyelitis with early sequestrum formation. Alternatively, this may represent ischemic necrosis. . There is fragmentation of the lateral tibial articular surface medially of uncertain significance. If there is no history of trauma, then this may be the result of articular erosion due to an infectious arthritis. The medial tibial articular surfaces preserved. The femoral condylar articular surfaces are preserved. There is a moderate suprapatellar bursal effusion. This is substantially increased in extent when compared to the prior CT of 03/03/2018. There is an increasingly large collection in the popliteal fossa with extension once again demonstrated post oral laterally to the distal femur in addition to extension medial to the proximal fibular head and along the dorsal aspect of the proximal tibia. IMPRESSION: Suprapatellar bursal collection and large popliteal fossa collection increased in size from prior examination. There is possible sequestrum formation in the patellar articular surface and there is articular destruction or fragmentation of the lateral tibial articular surface as described. This represents interval change when compared to examination of 1 month previous. Possible infectious arthritis. Please correlate with any history of trauma.
[2018-03-09] MEDS ORDERED: Dextrose 5%/0.9% NS 1,000 ML IV PRN (12:00)
[2018-03-09] MEDS: Dextrose 5%/0.9% NS 1,000 ML IV SCH ×2 (12:15→23:15)
[2018-03-09] MEDS ORDERED: Rocuronium 10 mg/ml (10 ml) ONE (13:10)
[2018-03-09] MEDS ORDERED: Succinylcholine Chloride 20 mg/ml Syr (5 ml) IV ONE (13:10)
[2018-03-09] MEDS ORDERED: Etomidate 20 mg/10ml Inj IV ONE (13:10)
[2018-03-09] MEDS ORDERED: Phenylephrine 10 mg/ml Inj ONE (13:11)
[2018-03-09] MEDS ORDERED: Dextrose 50% SYRINGE Inj (50 ml) ONE (13:14)
--- NOTE | 2018-03-09 13:21 | CP.PCM.PN ---
Subjective - Date & Time of Evaluation Date of Evaluation: 03/09/18 Time of Evaluation: 13:16 - Subjective Subjective: Patient seen and examined at 7:30am. Patient complaining of continued pain in his left knee. Says it feels the same and still severe pain. No new complaints. Patient reexamined at 1:00pm, more lethargic, wakes up but does not answer all questions. BS 105. at bedside, risks/benefits/alt of procedure and anesthesia explained, including rescind of DNR while in OR/recovery. consents. Patient Name / ID : GRADY PATEL / [id number] Exam Date : 03/09/2018 10:18:45 ( Approved ) Study Comment : Sex / Age : M / 72Y Creator : Milagros Bethea Dictator : Kevin Horowitz MD Machine Cloth Examiner : Cyber Security Consultant : Kevin Horowitz MD Approver2 : Report Date : 03/09/2018 10:23:02 My Comment : Date of service: 03/09/2018 PROCEDURE: CT left knee HISTORY: knee pain, r/o collection COMPARISON: Multiple examinations dating back to 02/02/2018 TECHNIQUE: 2.5 mm contiguous axial sections were acquired through the left knee. Sagittal and coronal images were reformatted from the axial scan. No intravenous contrast material was administered for this examination. Total exam DLP: 304.[address] exam was performed using 1 or more of the following dose reduction techniques: Automated exposure control, adjustment of the mA and/or kV according to patient size, and/or use of iterative reconstruction technique. FINDINGS: There is no acute fracture. There is what appears to be a sequestrum forming beneath the patellar articular surface along the lateral condyles. This represents interval change from the CT of 02/02/2018. This may be the result of chronic osteomyelitis with early sequestrum formation. Alternatively, this may represent ischemic necrosis. . There is fragmentation of the lateral tibial articular surface medially of uncertain significance. If there is no history of trauma, then this may be the result of articular erosion due to an infectious arthritis. The medial tibial articular surfaces preserved. The femoral condylar articular surfaces are preserved. There is a moderate suprapatellar bursal effusion. This is substantially increased in extent when compared to the prior CT of 03/03/2018. There is an increasingly large collection in the popliteal fossa with extension once again demonstrated post oral laterally to the distal femur in addition to extension medial to the proximal fibular head and along the dorsal aspect of the proximal tibia. IMPRESSION: Suprapatellar bursal collection and large popliteal fossa collection increased in size from prior examination. There is possible sequestrum formation in the patellar articular surface and there is articular destruction or fragmentation of the lateral tibial articular surface as described. This represents interval change when compared to examination of 1 month previous. Possible infectious arthritis. Please correlate with any history of trauma. Objective - Vital Signs/Intake and Output Vital Signs (last 24 hours): Temp Pulse Resp BP Pulse Ox 99.6 F 89 20 106/52 L 100 03/09/18 12:48 03/09/18 12:48 03/09/18 12:48 03/09/18 12:48 03/09/18 12:48 Intake and Output: 03/09/18 03/09/18 06:59 18:59 Intake Total 700 Output Total 300 Balance 400 - Medications Medications: Current Medications Albuterol/Ipratropium (Duoneb 3 Mg/0.5 Mg (3 Ml) Ud) 3 ml INH RQ6 [facility] Last Admin: 03/09/18 07:12 Dose: 3 ml Apixaban (Eliquis) 2.5 mg PO BID [facility] Last Admin: 03/09/18 11:26 Dose: Not Given Calcium/Vitamin D (Oyster Shell Calcium/Vitamin D 500 Mg-200 Iu) 1 tab PO DAILY [facility] Last Admin: 03/09/18 11:24 Dose: 1 tab Dextrose (Glutose 15) 0 gm PO ONCE PRN; Protocol PRN Reason: Hypoglycemia Protocol Diltiazem HCl (Cardizem Cd) 240 mg PO DAILY [facility] Last Admin: 03/09/18 11:29 Dose: Not Given Ergocalciferol (Drisdol 50,000 Intl Units Cap) 1 cap PO QWK [facility] Last Admin: 03/08/18 11:02 Dose: 1 cap Ethambutol HCl (Myambutol) 400 mg PO Q8H [facility] PRN Reason: Protocol Last Admin: 03/09/18 11:24 Dose: 400 mg Folic Acid (Folic Acid) 1 mg PO DAILY [facility] Last Admin: 03/09/18 11:24 Dose: 1 mg Glucagon (Glucagen Diagnostic Kit) 0 mg IM STAT PRN; Protocol PRN Reason: Hypoglycemia Protocol Home Med (Patient's Own Medication) 1 tab PO DAILY [facility] Last Admin: 03/09/18 11:21 Dose: 1 tab Daptomycin 310 mg/ Sodium (Chloride) 100 mls @ 100 mls/hr IV Q24H [facility] PRN Reason: Protocol Stop: 03/11/18 16:01 Last Admin: 03/08/18 17:00 Dose: 100 mls/hr Dextrose/Sodium Chloride (Dextrose 5%/0.9% Ns 1000 Ml) 1,000 mls @ 100 mls/hr IV .Q10H [facility] Last Admin: 03/09/18 12:15 Dose: 100 mls/hr Insulin Aspart (Novolog) 0 unit SC ACHS [facility] PRN Reason: Protocol Last Admin: 03/09/18 12:32 Dose: Not Given Isoniazid (Niazid) 300 mg PO DAILY [facility] PRN Reason: Protocol Last Admin: 03/09/18 11:24 Dose: 300 mg Levothyroxine Sodium (Synthroid) 175 mcg PO DAILY@0630 [facility] Last Admin: 03/09/18 05:38 Dose: 175 mcg Magnesium Oxide (Mag-Ox) 800 mg PO BID [facility] Last Admin: 03/09/18 11:21 Dose: 800 mg Montelukast Sodium (Singulair) 10 mg PO DAILY [facility] Last Admin: 03/09/18 11:24 Dose: 10 mg Oxycodone/Acetaminophen (Percocet 5/325 Mg Tab) 1 tab PO Q4H PRN PRN Reason: Pain, moderate (4-7) Stop: 03/13/18 16:07 Last Admin: 03/09/18 00:31 Dose: 1 tab Pantoprazole Sodium (Protonix Ec Tab) 40 mg PO DAILY [facility] Last Admin: 03/09/18 11:24 Dose: 40 mg Potassium Phos/Sodium Phos (Neutra-Phos) 1 pkt PO BID [facility] Last Admin: 03/09/18 11:25 Dose: 1 pkt Prednisone (Prednisone Tab) 5 mg PO DAILY [facility] Last Admin: 03/09/18 11:25 Dose: 5 mg Pyridoxine HCl (Vitamin B6 50 Mg Tab) 50 mg PO DAILY [facility] Last Admin: 03/09/18 11:23 Dose: 50 mg Rifampin (Rifampin Cap) 600 mg PO DAILY [facility] PRN Reason: Protocol Last Admin: 03/09/18 11:26 Dose: 600 mg Rosuvastatin Calcium (Crestor) 5 mg PO HS [facility] Last Admin: 03/08/18 21:53 Dose: 5 mg Sodium Bicarbonate (Sodium Bicarbonate Tab) 650 mg PO TID [facility] Last Admin: 03/09/18 11:24 Dose: 650 mg Tacrolimus (Prograf Cap) 2 mg PO Q12 [facility] Last Admin: 03/09/18 11:23 Dose: 2 mg - Labs Labs: 03/09/18 09:27 03/09/18 07:10 PT 10.8 SECONDS (9.7-12.2) 02/28/18 11:22 INR 1.0 02/28/18 11:22 APTT 29 SECONDS (21-34) 02/28/18 11:22 - Extremities Exam Additional comments: Left knee: noted popliteal cyst, warm, very tender, no marked change from yesterday AROM 0-95 complains of pain with flexion, pain in back of knee calves soft NT neg homans ++DP/PT pulses Assessment and Plan (1) Tuberculosis of left knee joint Assessment & Plan: for I&D of popliteal collection per Dr. Tovar per Dr. Bradshaw pt ok for OR NPO for OR Status: Acute (2) Septic arthritis of knee, left Status: Acute (3) Acute gout of left knee Status: Acute
[2018-03-09 14:42] LABS: OSMOLALITY,URINE 485 mosm/kg (300-1000)
[2018-03-09] MEDS ORDERED: Lidocaine/Epinephrine 1% 1:100000 10 ML IJ ONE (15:01)
[2018-03-09] MEDS ORDERED: Neostigmine Methylsulfate 3mg/3ml Syringe IV ONE (15:18)
[2018-03-09 15:27] LABS: FLUID TYPE SYNOVIAL FLUID
[2018-03-09] MEDS ORDERED: Absorbable Gelatin Sponge Size 100 ONE (15:57)
[2018-03-09 16:05] LABS: SF GROSS APPEARANCE BLOODY (CLEAR); SYNOVIAL FLUID MONO/MACROPHAGE 2 % (0-0)
[2018-03-09] MEDS ORDERED: HYDROmorphone 0.5 mg/0.5 ml ISec IVP PRN (16:12)
--- NOTE | 2018-03-09 16:36 | PCM.SURG1 ---
Surgeon's Initial Post Op Note - Surgeon's Notes Surgeon: La Lab Tech: Joselito Long PA-C Type of Anesthesia: General Endo, Spinal Anesthesia Administered By: DR Lopez Pre-Operative Diagnosis: Tuberculous arthritis L knee. Coolection posterolateral aspect L knee, tracking to fibula. ?compression peroneal nerve Operative Findings: tuberculous arthritis/synovitis L knee. tear medial meniscus/tear lateral meniscus. compression peroneal nerve Post-Operative Diagnosis: as above Operation Performed: arthrotomy/exploration L knee - posterolateral corner/ popliteal fossa. exploration Peroneal nerve(2.5 eyeglass magnification). peroneal neurolysis. surgical arthroscopy partial tricompartmental synovectomy. surgical arthroscopy- partial medial/lateral meniscectomy. surgical arthroscopy- irrigation debridement/inciison drainage Specimen/Specimens Removed: synvoium/cartilasge/epineurium Estimated Blood Loss: EBL {In ML}: 65 Blood Products Given: N/A Drains Used: No Drains Post-Op Condition: Good Date of Surgery/Procedure: 03/09/18 Time of Surgery/Procedure: 14:50 (14:04/anaesthesia induction time time 1404)
--- NOTE | 2018-03-09 23:11 | CP.PCM.PN ---
Subjective - Date & Time of Evaluation Date of Evaluation: 03/09/18 Time of Evaluation: 18:30 - Subjective Subjective: Patient underwent a drainage of the left knee today because of fever and increased swelling and tenderness of the left knee. Now confused, but afebrile and in no respiratory difficulty. Objective - Vital Signs/Intake and Output Vital Signs (last 24 hours): Temp Pulse Resp BP Pulse Ox 97.7 F 96 H 18 134/39 L 100 03/09/18 18:20 03/09/18 18:20 03/09/18 18:20 03/09/18 18:20 03/09/18 18:20 Intake and Output: 03/09/18 03/10/18 18:59 06:59 Intake Total 425 500 Balance 425 500 - Medications Medications: Current Medications Albuterol/Ipratropium (Duoneb 3 Mg/0.5 Mg (3 Ml) Ud) 3 ml INH RQ6 [facility] Last Admin: 03/09/18 21:08 Dose: Not Given Apixaban (Eliquis) 2.5 mg PO BID [facility] Last Admin: 03/09/18 18:37 Dose: 2.5 mg Calcium/Vitamin D (Oyster Shell Calcium/Vitamin D 500 Mg-200 Iu) 1 tab PO DAILY [facility] Last Admin: 03/09/18 11:24 Dose: 1 tab Dextrose (Glutose 15) 0 gm PO ONCE PRN; Protocol PRN Reason: Hypoglycemia Protocol Diltiazem HCl (Cardizem Cd) 240 mg PO DAILY [facility] Last Admin: 03/09/18 11:29 Dose: Not Given Ergocalciferol (Drisdol 50,000 Intl Units Cap) 1 cap PO QWK [facility] Last Admin: 03/08/18 11:02 Dose: 1 cap Ethambutol HCl (Myambutol) 400 mg PO Q8H [facility] PRN Reason: Protocol Last Admin: 03/09/18 18:37 Dose: 400 mg Folic Acid (Folic Acid) 1 mg PO DAILY [facility] Last Admin: 03/09/18 11:24 Dose: 1 mg Glucagon (Glucagen Diagnostic Kit) 0 mg IM STAT PRN; Protocol PRN Reason: Hypoglycemia Protocol Home Med (Patient's Own Medication) 1 tab PO DAILY [facility] Last Admin: 03/09/18 11:21 Dose: 1 tab Daptomycin 310 mg/ Sodium (Chloride) 100 mls @ 100 mls/hr IV Q24H [facility] PRN Reason: Protocol Stop: 03/11/18 16:01 Last Admin: 03/09/18 18:29 Dose: 100 mls/hr Dextrose/Sodium Chloride (Dextrose 5%/0.9% Ns 1000 Ml) 1,000 mls @ 100 mls/hr IV .Q10H [facility] Last Admin: 03/09/18 12:15 Dose: 100 mls/hr Insulin Aspart (Novolog) 0 unit SC ACHS [facility] PRN Reason: Protocol Last Admin: 03/09/18 16:30 Dose: Not Given Isoniazid (Niazid) 300 mg PO DAILY [facility] PRN Reason: Protocol Last Admin: 03/09/18 11:24 Dose: 300 mg Levothyroxine Sodium (Synthroid) 175 mcg PO DAILY@0630 [facility] Last Admin: 03/09/18 05:38 Dose: 175 mcg Magnesium Oxide (Mag-Ox) 800 mg PO BID [facility] Last Admin: 03/09/18 18:37 Dose: 800 mg Montelukast Sodium (Singulair) 10 mg PO DAILY [facility] Last Admin: 03/09/18 11:24 Dose: 10 mg Oxycodone/Acetaminophen (Percocet 5/325 Mg Tab) 1 tab PO Q4H PRN PRN Reason: Pain, moderate (4-7) Stop: 03/13/18 16:07 Last Admin: 03/09/18 00:31 Dose: 1 tab Pantoprazole Sodium (Protonix Ec Tab) 40 mg PO DAILY [facility] Last Admin: 03/09/18 11:24 Dose: 40 mg Potassium Phos/Sodium Phos (Neutra-Phos) 1 pkt PO BID [facility] Last Admin: 03/09/18 11:25 Dose: 1 pkt Prednisone (Prednisone Tab) 5 mg PO DAILY [facility] Last Admin: 03/09/18 11:25 Dose: 5 mg Pyridoxine HCl (Vitamin B6 50 Mg Tab) 50 mg PO DAILY [facility] Last Admin: 03/09/18 11:23 Dose: 50 mg Rifampin (Rifampin Cap) 600 mg PO DAILY [facility] PRN Reason: Protocol Last Admin: 03/09/18 11:26 Dose: 600 mg Rosuvastatin Calcium (Crestor) 5 mg PO HS [facility] Last Admin: 03/09/18 21:31 Dose: Not Given Sodium Bicarbonate (Sodium Bicarbonate Tab) 650 mg PO TID [facility] Last Admin: 03/09/18 18:37 Dose: 650 mg Tacrolimus (Prograf Cap) 2 mg PO Q12 [facility] Last Admin: 03/09/18 21:31 Dose: Not Given - Labs Labs: 03/09/18 09:27 03/09/18 07:10 PT 10.8 SECONDS (9.7-12.2) 02/28/18 11:22 INR 1.0 02/28/18 11:22 APTT 29 SECONDS (21-34) 02/28/18 11:22 - Constitutional Appears: Toxic, No Acute Distress, Confused, Chronically Ill - Head Exam Head Exam: NORMAL INSPECTION - Eye Exam Eye Exam: Normal appearance - ENT Exam ENT Exam: Normal Exam - Neck Exam Neck Exam: Normal Inspection - Respiratory Exam Respiratory Exam: Clear to Ausculation Bilateral - Cardiovascular Exam Cardiovascular Exam: REGULAR RHYTHM - GI/Abdominal Exam GI & Abdominal Exam: Soft, Normal Bowel Sounds - Rectal Exam Rectal Exam: Deferred - Extremities Exam Additional comments: Left knee under bandage . Assessment and Plan (1) Septic arthritis of knee, left Assessment & Plan: To continue antibiotics. Status: Acute (2) Severe sepsis Status: Acute (3) History of renal transplant Status: Chronic (4) Hypotension Status: Resolved (5) Hyponatremia Status: Acute
[2018-03-10] MEDS: Oxycodone/Acetaminophen 5/325 mg Tab PO PRN ×2 (00:03→13:51)
[2018-03-10] MEDS: Albuterol-Ipratrop 3 mg / 0.5 (3 ml) UD INH SCH ×4 (01:02→19:57)
[2018-03-10] MEDS: Levothyroxine 175 MCG TAB PO SCH (06:18)
[2018-03-10] MEDS: (Novolog) Insulin Aspart, Recombinant 100 u/ml 10 ml vial SC SCH ×4 (07:37→21:51)
[2018-03-10 08:51] LABS: HEMOGLOBIN 8.3 g/dL (12.0-18.0); MEAN CELL VOLUME 76.6 fL (80.0-94.0); MEAN CORPUSCULAR HEMOGLOBIN 24.8 pg (27.0-31.0); MEAN CORPUSCULAR HGB CONC 32.3 g/dL (33.0-37.0); RBC 3.37 Mil/uL (4.40-5.90); RED CELL DISTRIBUTION WIDTH 18.9 % (11.5-14.5); WHITE BLOOD COUNT 9.2 K/uL (4.8-10.8)
[2018-03-10] MEDS: Pantoprazole 40 mg EC Tab PO SCH (09:05)
[2018-03-10] MEDS: Potassium & Sodium Phosphate PO SCH ×2 (09:05→18:41)
[2018-03-10] MEDS: Calcium-Vit D 500 mg-200 Units Tab UD PO SCH (09:05)
[2018-03-10] MEDS: diltiaZEM 240 mg/24 Hours CD Cap PO SCH (09:05)
[2018-03-10] MEDS: Magnesium Oxide 400 mg Tab UD PO SCH ×2 (09:05→18:42)
[2018-03-10] MEDS: Febuxostat [Uloric] 80 MG PO SCH (09:06)
[2018-03-10 09:10] LABS: ALB/GLOB RATIO 0.9 (1.0-2.1); ALBUMIN 2.6 g/dL (3.5-5.0); ALT/SGPT 12 U/L (21-72); AST/SGOT 19 U/L (17-59); BLOOD UREA NITROGEN 12 mg/dL (9-20); CALCIUM 8.3 mg/dl (8.6-10.4); GFR NON-AFRICAN AMERICAN > 60
[2018-03-10] MEDS: Dextrose 5%/0.9% NS 1,000 ML IV SCH (10:39)
--- NOTE | 2018-03-10 12:30 | CP.PCM.PN ---
Subjective - Date & Time of Evaluation Date of Evaluation: 03/10/18 Time of Evaluation: 12:26 - Subjective Subjective: Patient more lethargic today. opens eyes and follows some commands. Objective - Vital Signs/Intake and Output Vital Signs (last 24 hours): Temp Pulse Resp BP Pulse Ox 97.9 F 100 H 20 109/62 99 03/10/18 07:00 03/10/18 07:00 03/10/18 07:00 03/10/18 07:00 03/10/18 07:00 Intake and Output: 03/10/18 03/10/18 06:59 18:59 Intake Total 910 Balance 910 - Medications Medications: Current Medications Albuterol/Ipratropium (Duoneb 3 Mg/0.5 Mg (3 Ml) Ud) 3 ml INH RQ6 [facility] Last Admin: 03/10/18 07:51 Dose: Not Given Apixaban (Eliquis) 2.5 mg PO BID [facility] Last Admin: 03/10/18 09:05 Dose: 2.5 mg Calcium/Vitamin D (Oyster Shell Calcium/Vitamin D 500 Mg-200 Iu) 1 tab PO DAILY [facility] Last Admin: 03/10/18 09:05 Dose: 1 tab Dextrose (Glutose 15) 0 gm PO ONCE PRN; Protocol PRN Reason: Hypoglycemia Protocol Diltiazem HCl (Cardizem Cd) 240 mg PO DAILY [facility] Last Admin: 03/10/18 09:05 Dose: 240 mg Ergocalciferol (Drisdol 50,000 Intl Units Cap) 1 cap PO QWK [facility] Last Admin: 03/08/18 11:02 Dose: 1 cap Ethambutol HCl (Myambutol) 400 mg PO Q8H [facility] PRN Reason: Protocol Last Admin: 03/10/18 10:42 Dose: 400 mg Folic Acid (Folic Acid) 1 mg PO DAILY [facility] Last Admin: 03/10/18 09:05 Dose: 1 mg Glucagon (Glucagen Diagnostic Kit) 0 mg IM STAT PRN; Protocol PRN Reason: Hypoglycemia Protocol Home Med (Patient's Own Medication) 1 tab PO DAILY [facility] Last Admin: 03/10/18 09:06 Dose: 1 tab Daptomycin 310 mg/ Sodium (Chloride) 100 mls @ 100 mls/hr IV Q24H [facility] PRN Reason: Protocol Stop: 03/11/18 16:01 Last Admin: 03/09/18 18:29 Dose: 100 mls/hr Dextrose/Sodium Chloride (Dextrose 5%/0.9% Ns 1000 Ml) 1,000 mls @ 100 mls/hr IV .Q10H [facility] Last Admin: 03/10/18 10:39 Dose: 100 mls/hr Insulin Aspart (Novolog) 0 unit SC ACHS [facility] PRN Reason: Protocol Last Admin: 03/10/18 11:26 Dose: Not Given Isoniazid (Niazid) 300 mg PO DAILY [facility] PRN Reason: Protocol Last Admin: 03/10/18 09:05 Dose: 300 mg Levothyroxine Sodium (Synthroid) 175 mcg PO DAILY@0630 [facility] Last Admin: 03/10/18 06:18 Dose: 175 mcg Magnesium Oxide (Mag-Ox) 800 mg PO BID [facility] Last Admin: 03/10/18 09:05 Dose: 800 mg Montelukast Sodium (Singulair) 10 mg PO DAILY [facility] Last Admin: 03/10/18 09:05 Dose: 10 mg Oxycodone/Acetaminophen (Percocet 5/325 Mg Tab) 1 tab PO Q4H PRN PRN Reason: Pain, moderate (4-7) Stop: 03/13/18 16:07 Last Admin: 03/10/18 00:03 Dose: 1 tab Pantoprazole Sodium (Protonix Ec Tab) 40 mg PO DAILY [facility] Last Admin: 03/10/18 09:05 Dose: 40 mg Potassium Phos/Sodium Phos (Neutra-Phos) 1 pkt PO BID [facility] Last Admin: 03/10/18 09:05 Dose: 1 pkt Prednisone (Prednisone Tab) 5 mg PO DAILY [facility] Last Admin: 03/10/18 09:05 Dose: 5 mg Pyridoxine HCl (Vitamin B6 50 Mg Tab) 50 mg PO DAILY [facility] Last Admin: 03/10/18 09:05 Dose: 50 mg Rifampin (Rifampin Cap) 600 mg PO DAILY [facility] PRN Reason: Protocol Last Admin: 03/10/18 09:05 Dose: 600 mg Rosuvastatin Calcium (Crestor) 5 mg PO HS [facility] Last Admin: 03/09/18 21:31 Dose: Not Given Sodium Bicarbonate (Sodium Bicarbonate Tab) 650 mg PO TID [facility] Last Admin: 03/10/18 09:04 Dose: 650 mg Tacrolimus (Prograf Cap) 2 mg PO Q12 [facility] Last Admin: 03/10/18 09:05 Dose: 2 mg - Labs Labs: 03/10/18 08:46 03/10/18 08:46 PT 10.8 SECONDS (9.7-12.2) 02/28/18 11:22 INR 1.0 02/28/18 11:22 APTT 29 SECONDS (21-34) 02/28/18 11:22 - Extremities Exam Additional comments: LLE: +ROM toes (palpable extension) unclear if patient unable to dorsiflex or if unable to follow commands, sensation intact to dorsum of foot reacts to light touch +DP pulse calves soft NT neg homans, dressing/knee immob intct Assessment and Plan (1) Tuberculosis of left knee joint Assessment & Plan: POD#1 s/p repeat arthroscopic I&D and I&D of popliteal fossa repeat cultures sent aerobic/anaerobic/afb/fungal PT/OT when appropriate medical mgmt as per Dr. Bradshaw d/w Dr. Tovar, agrees with above Status: Acute (2) Septic arthritis of knee, left Status: Acute (3) Acute gout of left knee Status: Acute
--- NOTE | 2018-03-10 13:18 | CP.PCM.PN ---
Subjective - Date & Time of Evaluation Date of Evaluation: 03/10/18 Time of Evaluation: 13:14 - Subjective Subjective: s/p knee drainage, arthroscopy Na remains low- urine parameters consistent with SIADH FK levels low- will adjust dose- likely from ethambutol use Confusion remains As pt immunosuppressed would consider LP Discussed case with family at bedside Objective - Vital Signs/Intake and Output Vital Signs (last 24 hours): Temp Pulse Resp BP Pulse Ox 97.9 F 100 H 20 109/62 99 03/10/18 07:00 03/10/18 07:00 03/10/18 07:00 03/10/18 07:00 03/10/18 07:00 Intake and Output: 03/10/18 03/10/18 06:59 18:59 Intake Total 910 Balance 910 - Medications Medications: Current Medications Albuterol/Ipratropium (Duoneb 3 Mg/0.5 Mg (3 Ml) Ud) 3 ml INH RQ6 [facility] Last Admin: 03/10/18 07:51 Dose: Not Given Apixaban (Eliquis) 2.5 mg PO BID [facility] Last Admin: 03/10/18 09:05 Dose: 2.5 mg Calcium/Vitamin D (Oyster Shell Calcium/Vitamin D 500 Mg-200 Iu) 1 tab PO DAILY [facility] Last Admin: 03/10/18 09:05 Dose: 1 tab Dextrose (Glutose 15) 0 gm PO ONCE PRN; Protocol PRN Reason: Hypoglycemia Protocol Diltiazem HCl (Cardizem Cd) 240 mg PO DAILY [facility] Last Admin: 03/10/18 09:05 Dose: 240 mg Ergocalciferol (Drisdol 50,000 Intl Units Cap) 1 cap PO QWK [facility] Last Admin: 03/08/18 11:02 Dose: 1 cap Ethambutol HCl (Myambutol) 400 mg PO Q8H [facility] PRN Reason: Protocol Last Admin: 03/10/18 10:42 Dose: 400 mg Folic Acid (Folic Acid) 1 mg PO DAILY [facility] Last Admin: 03/10/18 09:05 Dose: 1 mg Glucagon (Glucagen Diagnostic Kit) 0 mg IM STAT PRN; Protocol PRN Reason: Hypoglycemia Protocol Home Med (Patient's Own Medication) 1 tab PO DAILY [facility] Last Admin: 03/10/18 09:06 Dose: 1 tab Daptomycin 310 mg/ Sodium (Chloride) 100 mls @ 100 mls/hr IV Q24H [facility] PRN Reason: Protocol Stop: 03/11/18 16:01 Last Admin: 03/09/18 18:29 Dose: 100 mls/hr Dextrose/Sodium Chloride (Dextrose 5%/0.9% Ns 1000 Ml) 1,000 mls @ 100 mls/hr IV .Q10H [facility] Last Admin: 03/10/18 10:39 Dose: 100 mls/hr Insulin Aspart (Novolog) 0 unit SC ACHS [facility] PRN Reason: Protocol Last Admin: 03/10/18 11:26 Dose: Not Given Isoniazid (Niazid) 300 mg PO DAILY [facility] PRN Reason: Protocol Last Admin: 03/10/18 09:05 Dose: 300 mg Levothyroxine Sodium (Synthroid) 175 mcg PO DAILY@0630 [facility] Last Admin: 03/10/18 06:18 Dose: 175 mcg Magnesium Oxide (Mag-Ox) 800 mg PO BID [facility] Last Admin: 03/10/18 09:05 Dose: 800 mg Montelukast Sodium (Singulair) 10 mg PO DAILY [facility] Last Admin: 03/10/18 09:05 Dose: 10 mg Oxycodone/Acetaminophen (Percocet 5/325 Mg Tab) 1 tab PO Q4H PRN PRN Reason: Pain, moderate (4-7) Stop: 03/13/18 16:07 Last Admin: 03/10/18 00:03 Dose: 1 tab Pantoprazole Sodium (Protonix Ec Tab) 40 mg PO DAILY [facility] Last Admin: 03/10/18 09:05 Dose: 40 mg Potassium Phos/Sodium Phos (Neutra-Phos) 1 pkt PO BID [facility] Last Admin: 03/10/18 09:05 Dose: 1 pkt Prednisone (Prednisone Tab) 5 mg PO DAILY [facility] Last Admin: 03/10/18 09:05 Dose: 5 mg Pyridoxine HCl (Vitamin B6 50 Mg Tab) 50 mg PO DAILY [facility] Last Admin: 03/10/18 09:05 Dose: 50 mg Rifampin (Rifampin Cap) 600 mg PO DAILY [facility] PRN Reason: Protocol Last Admin: 03/10/18 09:05 Dose: 600 mg Rosuvastatin Calcium (Crestor) 5 mg PO HS [facility] Last Admin: 03/09/18 21:31 Dose: Not Given Sodium Bicarbonate (Sodium Bicarbonate Tab) 650 mg PO TID [facility] Last Admin: 03/10/18 09:04 Dose: 650 mg Tacrolimus (Prograf Cap) 2 mg PO Q12 [facility] Last Admin: 03/10/18 09:05 Dose: 2 mg - Labs Labs: 03/10/18 08:46 03/10/18 08:46 PT 10.8 SECONDS (9.7-12.2) 02/28/18 11:22 INR 1.0 02/28/18 11:22 APTT 29 SECONDS (21-34) 02/28/18 11:22 - Constitutional Appears: Confused, Cachectic, Chronically Ill - Head Exam Head Exam: ATRAUMATIC, NORMAL INSPECTION - Eye Exam Eye Exam: EOMI, Normal appearance - Neck Exam Neck Exam: Normal Inspection. absent: Tenderness - Respiratory Exam Respiratory Exam: Clear to Ausculation Bilateral, NORMAL BREATHING PATTERN - Cardiovascular Exam Cardiovascular Exam: REGULAR RHYTHM, +S1 - GI/Abdominal Exam GI & Abdominal Exam: Soft. absent: Tenderness - Extremities Exam Extremities Exam: Normal Inspection. absent: Tenderness - Neurological Exam Neurological Exam: Altered - Skin Skin Exam: Dry, Warm Assessment and Plan (1) Kidney transplant recipient Status: Acute (2) CKD (chronic kidney disease) stage 3, GFR 30-59 ml/min Status: Acute (3) Acute gout of left knee Status: Acute (4) Septic arthritis of knee, left Status: Acute (5) Cardiomyopathy Status: Acute (6) Atrial fibrillation Status: Chronic - Assessment and Plan (Free Text) Plan: Call neuro - possible LP Increase tacro dose 1 dose tovalptan Decrease IV fluids Await identification afb IV mag
[2018-03-10] MEDS ORDERED: Tolvaptan 15 MG TAB PO ONE (13:24)
[2018-03-10] MEDS: Magnesium Sulfate 1 gm in D5W 1 GM/100 ML BAG IVPB SCH ×2 (14:21→14:48)
--- NOTE | 2018-03-10 23:51 | CP.PCM.PN ---
Subjective - Date & Time of Evaluation Date of Evaluation: 03/10/18 Time of Evaluation: 13:45 - Subjective Subjective: Patient confused, with low grade fever, poor appetite, and coughing. Objective - Vital Signs/Intake and Output Vital Signs (last 24 hours): Temp Pulse Resp BP Pulse Ox 99.0 F 90 20 166/93 H 100 03/10/18 16:15 03/10/18 16:15 03/10/18 16:15 03/10/18 16:15 03/10/18 16:15 Intake and Output: 03/10/18 03/11/18 18:59 06:59 Intake Total 737 Output Total 800 Balance -63 - Medications Medications: Current Medications Acetaminophen (Tylenol 325mg Tab) 650 mg PO Q6H PRN PRN Reason: Pain, moderate (4-7) Albuterol/Ipratropium (Duoneb 3 Mg/0.5 Mg (3 Ml) Ud) 3 ml INH RQ6 [facility] Last Admin: 03/10/18 19:57 Dose: Not Given Apixaban (Eliquis) 2.5 mg PO BID [facility] Last Admin: 03/10/18 18:41 Dose: 2.5 mg Calcium/Vitamin D (Oyster Shell Calcium/Vitamin D 500 Mg-200 Iu) 1 tab PO DAILY [facility] Last Admin: 03/10/18 09:05 Dose: 1 tab Dextrose (Glutose 15) 0 gm PO ONCE PRN; Protocol PRN Reason: Hypoglycemia Protocol Diltiazem HCl (Cardizem Cd) 240 mg PO DAILY [facility] Last Admin: 03/10/18 09:05 Dose: 240 mg Ergocalciferol (Drisdol 50,000 Intl Units Cap) 1 cap PO QWK [facility] Last Admin: 03/08/18 11:02 Dose: 1 cap Ethambutol HCl (Myambutol) 400 mg PO Q8H [facility] PRN Reason: Protocol Last Admin: 03/10/18 18:41 Dose: 400 mg Folic Acid (Folic Acid) 1 mg PO DAILY [facility] Last Admin: 03/10/18 09:05 Dose: 1 mg Glucagon (Glucagen Diagnostic Kit) 0 mg IM STAT PRN; Protocol PRN Reason: Hypoglycemia Protocol Home Med (Patient's Own Medication) 1 tab PO DAILY [facility] Last Admin: 03/10/18 09:06 Dose: 1 tab Daptomycin 310 mg/ Sodium (Chloride) 100 mls @ 100 mls/hr IV Q24H [facility] PRN Reason: Protocol Stop: 03/11/18 16:01 Last Admin: 03/10/18 16:48 Dose: 100 mls/hr Dextrose/Sodium Chloride (Dextrose 5%/0.9% Ns 1000 Ml) 1,000 mls @ 50 mls/hr IV .Q20H [facility] Insulin Aspart (Novolog) 0 unit SC ACHS [facility] PRN Reason: Protocol Last Admin: 03/10/18 21:51 Dose: Not Given Isoniazid (Niazid) 300 mg PO DAILY [facility] PRN Reason: Protocol Last Admin: 03/10/18 09:05 Dose: 300 mg Levothyroxine Sodium (Synthroid) 175 mcg PO DAILY@0630 [facility] Last Admin: 03/10/18 06:18 Dose: 175 mcg Magnesium Oxide (Mag-Ox) 800 mg PO BID [facility] Last Admin: 03/10/18 18:42 Dose: 800 mg Montelukast Sodium (Singulair) 10 mg PO DAILY [facility] Last Admin: 03/10/18 09:05 Dose: 10 mg Pantoprazole Sodium (Protonix Ec Tab) 40 mg PO DAILY [facility] Last Admin: 03/10/18 09:05 Dose: 40 mg Potassium Phos/Sodium Phos (Neutra-Phos) 1 pkt PO BID [facility] Last Admin: 03/10/18 18:41 Dose: 1 pkt Prednisone (Prednisone Tab) 5 mg PO DAILY [facility] Last Admin: 03/10/18 09:05 Dose: 5 mg Pyridoxine HCl (Vitamin B6 50 Mg Tab) 50 mg PO DAILY [facility] Last Admin: 03/10/18 09:05 Dose: 50 mg Rifampin (Rifampin Cap) 600 mg PO DAILY [facility] PRN Reason: Protocol Last Admin: 03/10/18 09:05 Dose: 600 mg Rosuvastatin Calcium (Crestor) 5 mg PO HS [facility] Last Admin: 03/10/18 22:03 Dose: 5 mg Sodium Bicarbonate (Sodium Bicarbonate Tab) 650 mg PO TID [facility] Last Admin: 03/10/18 18:41 Dose: 650 mg Tacrolimus (Prograf Cap) 3 mg PO Q12 [facility] Last Admin: 03/10/18 22:04 Dose: 3 mg - Labs Labs: 03/10/18 08:46 03/10/18 08:46 PT 10.8 SECONDS (9.7-12.2) 02/28/18 11:22 INR 1.0 02/28/18 11:22 APTT 29 SECONDS (21-34) 02/28/18 11:22 - Constitutional Appears: No Acute Distress, Cachectic, Chronically Ill - Head Exam Head Exam: NORMAL INSPECTION - Eye Exam Eye Exam: Normal appearance - ENT Exam ENT Exam: Normal Exam - Neck Exam Neck Exam: Normal Inspection - Respiratory Exam Respiratory Exam: Rhonchi - Cardiovascular Exam Cardiovascular Exam: REGULAR RHYTHM, Murmur - GI/Abdominal Exam GI & Abdominal Exam: Soft, Normal Bowel Sounds - Rectal Exam Rectal Exam: Deferred - Extremities Exam Additional comments: Swollen and tender left knee. - Back Exam Back Exam: NORMAL INSPECTION - Neurological Exam Additional comments: Confuse, lethargic. - Skin Skin Exam: Dry, Intact, Warm Assessment and Plan (1) Septic arthritis of knee, left Assessment & Plan: On IV antibiotic and anti-TB meds. Status: Acute (2) Severe sepsis Status: Acute (3) History of renal transplant Status: Chronic (4) Hypotension Status: Resolved (5) Hyponatremia Assessment & Plan: On IV NS. Status: Acute (6) Altered mental status Assessment & Plan: Will ask Dr Cristopher Velasquez ( neuroly) to assess the patient. Status: Acute
--- NOTE | 2018-03-11 00:59 | OP ---
Copied To: Talon Tovar MD Attending MD: Talon Tovar MD PROCEDURE DATE: 03/09/2018 LOCATION: [facility]. PREOPERATIVE DIAGNOSES: 1. Tuberculosis sepsis/tuberculosis arthritis, left knee. 2. Septic collection tuberculosis in the posterolateral aspect of the left knee. POSTOPERATIVE DIAGNOSES: 1. Tuberculosis arthritis of the left knee. 2. Tricompartmental synovitis, left knee. 3. Tuberculosis collection in the posterolateral aspect of the knee and in the posterior aspect of the knee. 4. Compression of the peroneal nerve. 5. Tear of medial meniscus and tear of lateral meniscus. OPERATIVE FINDINGS: As above. OPERATIVE PROCEDURE: 1. Arthrotomy, incision and drainage of the left knee posterolateral aspect and the popliteal fossa. 2. Decompression of the peroneal nerve with neurolysis under eyeglass magnification. 3. Repair of peroneal nerve epineural. 4. Surgical arthroscopy, incision and drainage tuberculosis and septic left knee. 5. Surgical arthroscopy and partial and medial meniscotomy. 6. Surgical arthroscopy and partial and lateral meniscotomy. TYPE OF ANESTHESIA: General endotracheal anesthesia. ANESTHESIA ADMINISTERED BY: Tawny Guan MD SURGEON: Talon Tovar M.D. PARKING LOT ATTENDANT: Mandi Long PA-C. DRAINS: None. OPERATIVE INDICATIONS: Sameer Suero is a gentleman who is well known to my practice. The patient had been admitted to the [facility] after a period of time in the ICU. He developed septic knee. The knee was arthroscoped and AFB cultures were positive for tuberculosis. At this point in time, the patient has had recurrent swelling of the knee and also there was evidence of fullness in the posterolateral aspect of the knee in the popliteal fossa tracking to the fibula. Pros, cons, risks and benefits of repeat arthroscopy and incision and drainage and exploration of the nerve were discussed at length with the family. The possibility of nerve injury, mechanical failure, infection, thromboembolic disease, secondary or tertiary surgery discussed with the family. The patient is aware of the pros, cons, risks, and benefits as is his family. Informed consent was obtained. If his clinical course improves, the ultimate treatment for tuberculosis arthritis of the knee is fusion and the family was made aware of the operative procedure. After having obtained informed consent in the above fashion, after the satisfactory induction of the general endotracheal anesthesia, after having identified side, site and procedure, and a critical pause/time-out, the patient identified as Sameer Suero in the supine position with all bony prominence well padded, the left lower extremity is prepped and free draped in usual fashion for lower extremity surgery. The tourniquet had been applied, but was not yet inflated. After exsanguinating the limb using a 6-inch Esmarch bandage, the tourniquet which had been applied was inflated to 350 mmHg. The joints were infiltrated with 10 mL of 1% lidocaine without epinephrine from an inferolateral portal using #11 blade followed by spreading followed by introduction of blunt trocar, the arthroscope was introduced. There was found to be an egress of pus and purulent material mixed with blood on insertion of the arthroscope. Stat Gram stain was obtained, number of white cells per high-powered field, aerobic, anaerobic, AFB, and fungal cultures were obtained. This having been accomplished, triangulation is accomplished using #18 gauge spinal needle, followed by #11 blade, followed by spreading and introduction of the blunt trocar. With the arthroscope anterolaterally with the blunt trocar now anteromedially, again thorough debridement of the joint was carried out, incision and drainage were accomplished, irrigation and debridement. The arthroscope was placed now anteromedially using a combination of the 5.2 mm arthroscopic shaver. A careful partial tricompartmental synovectomy was accomplished with the arthroscope anteromedially and there was found to be tear of the medial meniscus and tear of the lateral meniscus. With the arthroscope anterolaterally, careful partial tricompartmental synovectomy was completed. Hemostasis was controlled with the arthroscopic wand. This having been accomplished, a superolateral portal was accomplished as well. There was massive effusions and inflammation of the synovium in the suprapatellar pouch. The arthroscope was placed in the suprapatellar pouch and with the shaver on the superolateral portal, an aggressive synovectomy was accomplished as well. Bleeding points were controlled with the arthroscopic wand. With the arthroscope anterolaterally, there was found to be a tear of the inner free edge of the medial meniscus. Using a combination of the arthroscopic shaver, the arthroscopic binders, and the arthroscopic wand, inner free edge was smoothed using the ArthroCare wand. With the arthroscope anterolaterally with the knee in figure-four position, the lateral meniscus was found to be torn, no remnant, exuberant synovitis as well. A partial lateral meniscotomy was accomplished. This having been accomplished, partial lateral meniscotomy was accomplished as well. Inner free edge was smoothed using the arthroscopic wand. Meniscectomy was accomplished using the bitter and the shaver. Again, this having being completed, partial tricompartmental synovectomy was completed. Portals were closed with interrupted Vicryl. At this point in time, an incision described to the patient was placed in the modified lateral decubitus position exposing the posterolateral aspect of the knee. Incision was described in the area of fullness from the fibular head curvilinearly superficial and somewhat posterior to the biceps femoris tendon. Skin incision was carried down through the skin and subcutaneous tissue. Hemostasis was controlled. At this point in time, the biceps tendon sheath was divided and the peroneal nerve was identified. There was found to be evidence of hemorrhage and compression in the area of the peroneal nerve. Great care was taken to protect the peroneal nerve. There was found to be a massive epineurial inflammation in the area of the peroneal nerve. Using the combination of the dissecting scissors, the peroneal nerve was explored posteriorly and distally to approximate two fingerbreadths below the biceps tendon below the fibular head in the in the direction of the fibular head. Careful peroneal neurolysis was accomplished. The peroneal nerve was explored. At this point in time, there was found to be a small rent in the peroneal nerve. Using 5-0 nylon suture, an epineural repair of the peroneal nerve was accomplished. Epineural repair of the peroneal nerve was accomplished using the interrupted 5-0 nylon sutures. Repair having been found to be successful, the interval anterior of the biceps tendon and down the biceps tendon sheath was developed to the posterior aspect of the popliteal fossa. At this point in time, using the Pulsavac, the area noted on CT scan of flexion is carefully irrigated and washed down. The peroneal region is decompressed and it was tracking down the calf, so the entire lateral aspect of the calf was not opened, but thorough debridement of that region posteriorly to the area of the tibial head was carefully irrigated using pulse lavage with antibiotics. The wound was thoroughly irrigated. The peroneal nerve having been explored and repaired and decompressed, the popliteal space having been entered and decompressed, FloSeal was employed for hemostasis, tourniquet was deflated, hemostasis is controlled with the electrocautery, closed with wires with interrupted Vicryl and darcy. The arthroscopic portals were closed with Vicryl and nylon. Yuan Muniz compression dressing and knee immobilizer were applied. This operation could not have been brought to conclusion without the assistantship of Mandi Long PA-C. Talon Tovar MD
[2018-03-11] MEDS: Albuterol-Ipratrop 3 mg / 0.5 (3 ml) UD INH SCH ×4 (02:32→19:28)
[2018-03-11] MEDS: Dextrose 5%/0.9% NS 1,000 ML IV SCH (04:45)
[2018-03-11] MEDS: Levothyroxine 175 MCG TAB PO SCH (06:13)
--- NOTE | 2018-03-11 06:37 | CON ---
Copied To: Cristopher Velasquez MD Attending MD: DATE: 03/10/2018 REASON FOR CONSULTATION: Change in mental status. HISTORY OF PRESENTING ILLNESS: The patient is a 72-year-old male who has been asked for evaluation of change in mental status. The patient was admitted on 02/22/2018 after the patient's and daughter brought him to the emergency room for left knee swelling and effusion. Now the patient is status post surgery of the left knee. After the surgery, the patient has been noted to be lethargic and confused that is why neurology consultation was called. The patient did have IV antibiotic for bacteremia prior to recent admission. The patient unable to give history, history is mainly from the and the chart. REVIEW OF SYSTEMS: Denies any headache or dizziness. Denies any chest pain, shortness of breath, abdominal pain, constipation or diarrhea. Does complain of some pain in the left knee. PAST MEDICAL HISTORY: COPD, hypothyroidism, gout, hypertension, hypertrophic cardiomyopathy, atrial fibrillation, infective endocarditis, diabetes mellitus. PAST SURGICAL HISTORY: Kidney transplant. CURRENT MEDICATIONS: Cardizem, Crestor, daptomycin, dextrose, ergocalciferol, albuterol/ipratropium, Eliquis, folic acid, Isoniazid, insulin, calcium, Percocet every 4 hours, prednisone, tacrolimus, pantoprazole, rifampin, tolvaptan, Singulair, levothyroxine, pyridoxine. ALLERGIES: METOPROLOL. SOCIAL HISTORY: The patient is a nonsmoker, nonalcoholic, does not use any illicit drugs. FAMILY HISTORY: Reviewed and noncontributory to the case. PHYSICAL EXAMINATION: GENERAL: The patient is elderly male lying in the bed in no acute distress. VITAL SIGNS: His blood pressure is 166/93, heart rate 90 per minute, breathing at a rate of 18 per minute, and temperature is 99 degrees Fahrenheit. HEENT: Head is normocephalic and atraumatic. NECK: Supple. There are no carotid bruits. LUNGS: Clear. CARDIOVASCULAR SYSTEM: S1 and S2 audible. No murmurs. ABDOMEN: Soft and nontender. Bowel sounds are present. NEUROLOGY EXAM: Mental status: The patient lethargic but arousable. He follows all simple commands. He knows his name. He knows he is in the hospital. Year is 2016, month is November. He does not remember the name of the president. He follows simple commands. Cranial nerve: Pupils are 3 mm, bilaterally reactive to light. Visual clark are full. Extraocular movements are intact. There is no facial asymmetry. Palate is upgoing bilaterally and tongue is midline. Motor: Tone is normal. Power in the upper extremities 3-4/5. In the lower extremities 2-3/5. Left lower extremity is in knee immobilizer. Gait is deferred at the moment. Sensory: Decreased vibration sense in the feet. Reflexes are 1+ in the upper extremities and absent in the right lower extremity, unable to assess in the left lower extremity. Plantar is downgoing bilaterally. LABORATORY DATA: Labs reviewed shows WBC 9.2, hemoglobin of 8.3; hematocrit 25.8 and platelets of 310,000. Sodium is 125, potassium 4.2, chloride 94, carbon dioxide content of 24, BUN of 12, creatinine 1 and glucose of 125. IMPRESSION: 1. Altered mental status which appears to be secondary to toxic metabolic encephalopathy. 2. History of diabetic neuropathy. 3. History of renal transplant, on tacrolimus and prednisolone. RECOMMENDATION: 1. The patient had a CT scan of the head done which showed no acute intracranial pathology. 2. The patient to have an electroencephalogram. 3. The patient to have serum ammonia levels done. 4. The patient's Percocet is to be discontinue and the patient to be given only Tylenol as needed. 5. Unable to obtain MRI of the brain because of the presence of defibrillator. 6. Please continue supportive care and other treatment. Thank you for the opportunity to participate in the care of this patient. Cristopher Velasquez MD [facility]
[2018-03-11] MEDS: (Novolog) Insulin Aspart, Recombinant 100 u/ml 10 ml vial SC SCH ×4 (07:23→21:41)
[2018-03-11 07:39] LABS: MEAN CELL VOLUME 77.3 fL (80.0-94.0); MEAN CORPUSCULAR HEMOGLOBIN 25.6 pg (27.0-31.0); MEAN CORPUSCULAR HGB CONC 33.1 g/dL (33.0-37.0); MEAN PLATELET VOLUME 7.8 fL (7.2-11.7); RBC 3.12 Mil/uL (4.40-5.90); RED CELL DISTRIBUTION WIDTH 19.2 % (11.5-14.5); WHITE BLOOD COUNT 9.2 K/uL (4.8-10.8)
[2018-03-11 07:54] LABS: ALB/GLOB RATIO 0.8 (1.0-2.1); ALBUMIN 2.4 g/dL (3.5-5.0); ALT/SGPT 22 U/L (21-72); AST/SGOT 20 U/L (17-59); BLOOD UREA NITROGEN 13 mg/dL (9-20); CALCIUM 8.1 mg/dl (8.6-10.4); GFR NON-AFRICAN AMERICAN > 60
[2018-03-11] MEDS: Potassium & Sodium Phosphate PO SCH ×2 (09:00→17:25)
[2018-03-11] MEDS: Calcium-Vit D 500 mg-200 Units Tab UD PO SCH (09:00)
[2018-03-11] MEDS: Magnesium Oxide 400 mg Tab UD PO SCH ×2 (09:01→17:24)
[2018-03-11] MEDS: diltiaZEM 240 mg/24 Hours CD Cap PO SCH (09:01)
[2018-03-11] MEDS: Pantoprazole 40 mg EC Tab PO SCH (09:01)
--- NOTE | 2018-03-11 09:16 | CP.PCM.PN ---
Subjective - Date & Time of Evaluation Date of Evaluation: 03/11/18 Time of Evaluation: 09:14 - Subjective Subjective: Notes reviewed s/p knee drainage, arthroscopy Received tolvaptan, minimal change in na FK level pending Confusion remains Neuro eval requested Discussed care with nurse at bedside Unable to obtain ros due to ams Objective - Vital Signs/Intake and Output Vital Signs (last 24 hours): Temp Pulse Resp BP Pulse Ox 100.6 F H 85 20 128/60 97 03/11/18 08:50 03/11/18 08:50 03/11/18 08:50 03/11/18 08:50 03/11/18 08:50 Intake and Output: 03/11/18 03/11/18 06:59 18:59 Intake Total 1257 Output Total 1100 Balance 157 - Medications Medications: Current Medications Acetaminophen (Tylenol 325mg Tab) 650 mg PO Q6H PRN PRN Reason: Pain, moderate (4-7) Albuterol/Ipratropium (Duoneb 3 Mg/0.5 Mg (3 Ml) Ud) 3 ml INH RQ6 [facility] Last Admin: 03/11/18 08:23 Dose: Not Given Apixaban (Eliquis) 2.5 mg PO BID [facility] Last Admin: 03/11/18 09:01 Dose: 2.5 mg Calcium/Vitamin D (Oyster Shell Calcium/Vitamin D 500 Mg-200 Iu) 1 tab PO DAILY [facility] Last Admin: 03/11/18 09:00 Dose: 1 tab Dextrose (Glutose 15) 0 gm PO ONCE PRN; Protocol PRN Reason: Hypoglycemia Protocol Diltiazem HCl (Cardizem Cd) 240 mg PO DAILY [facility] Last Admin: 03/11/18 09:01 Dose: 240 mg Ergocalciferol (Drisdol 50,000 Intl Units Cap) 1 cap PO QWK [facility] Last Admin: 03/08/18 11:02 Dose: 1 cap Ethambutol HCl (Myambutol) 400 mg PO Q8H [facility] PRN Reason: Protocol Last Admin: 03/11/18 03:18 Dose: 400 mg Folic Acid (Folic Acid) 1 mg PO DAILY [facility] Last Admin: 03/11/18 09:01 Dose: 1 mg Glucagon (Glucagen Diagnostic Kit) 0 mg IM STAT PRN; Protocol PRN Reason: Hypoglycemia Protocol Home Med (Patient's Own Medication) 1 tab PO DAILY [facility] Last Admin: 03/10/18 09:06 Dose: 1 tab Daptomycin 310 mg/ Sodium (Chloride) 100 mls @ 100 mls/hr IV Q24H [facility] PRN Reason: Protocol Stop: 03/11/18 16:01 Last Admin: 03/10/18 16:48 Dose: 100 mls/hr Dextrose/Sodium Chloride (Dextrose 5%/0.9% Ns 1000 Ml) 1,000 mls @ 50 mls/hr IV .Q20H [facility] Last Admin: 03/11/18 04:45 Dose: 50 mls/hr Insulin Aspart (Novolog) 0 unit SC ACHS [facility] PRN Reason: Protocol Last Admin: 03/11/18 07:23 Dose: Not Given Isoniazid (Niazid) 300 mg PO DAILY [facility] PRN Reason: Protocol Last Admin: 03/11/18 09:01 Dose: 300 mg Levothyroxine Sodium (Synthroid) 175 mcg PO DAILY@0630 [facility] Last Admin: 03/11/18 06:13 Dose: 175 mcg Magnesium Oxide (Mag-Ox) 800 mg PO BID [facility] Last Admin: 03/11/18 09:01 Dose: 800 mg Montelukast Sodium (Singulair) 10 mg PO DAILY [facility] Last Admin: 03/11/18 09:00 Dose: 10 mg Pantoprazole Sodium (Protonix Ec Tab) 40 mg PO DAILY [facility] Last Admin: 03/11/18 09:01 Dose: 40 mg Potassium Phos/Sodium Phos (Neutra-Phos) 1 pkt PO BID [facility] Last Admin: 03/11/18 09:00 Dose: 1 pkt Prednisone (Prednisone Tab) 5 mg PO DAILY [facility] Last Admin: 03/11/18 09:01 Dose: 5 mg Pyridoxine HCl (Vitamin B6 50 Mg Tab) 50 mg PO DAILY [facility] Last Admin: 03/11/18 09:00 Dose: 50 mg Rifampin (Rifampin Cap) 600 mg PO DAILY [facility] PRN Reason: Protocol Last Admin: 03/11/18 09:00 Dose: 600 mg Rosuvastatin Calcium (Crestor) 5 mg PO HS [facility] Last Admin: 03/10/18 22:03 Dose: 5 mg Sodium Bicarbonate (Sodium Bicarbonate Tab) 650 mg PO TID [facility] Last Admin: 03/11/18 09:01 Dose: 650 mg Tacrolimus (Prograf Cap) 3 mg PO Q12 [facility] Last Admin: 03/11/18 09:00 Dose: 3 mg - Labs Labs: 03/11/18 07:26 03/11/18 07:26 PT 10.8 SECONDS (9.7-12.2) 02/28/18 11:22 INR 1.0 02/28/18 11:22 APTT 29 SECONDS (21-34) 02/28/18 11:22 - Constitutional Appears: Confused, Chronically Ill - Head Exam Head Exam: ATRAUMATIC, NORMAL INSPECTION - Eye Exam Eye Exam: Normal appearance - ENT Exam ENT Exam: Mucous Membranes Moist, Normal Oropharynx - Neck Exam Neck Exam: absent: Lymphadenopathy, Thyromegaly - Respiratory Exam Respiratory Exam: absent: Rales, Rhonchi, Wheezes - Cardiovascular Exam Cardiovascular Exam: +S1, +S2. absent: JVD - GI/Abdominal Exam GI & Abdominal Exam: Soft, Normal Bowel Sounds. absent: Tenderness - Extremities Exam Extremities Exam: absent: Pedal Edema, Tenderness - Neurological Exam Neurological Exam: Awake. absent: Alert, Oriented x3 - Skin Skin Exam: Dry, Intact Assessment and Plan (1) Altered mental status Status: Acute (2) CKD (chronic kidney disease) stage 3, GFR 30-59 ml/min Status: Acute (3) Hyponatremia Status: Acute (4) Kidney transplant recipient Status: Acute (5) Septic arthritis of knee, left Status: Acute (6) Severe sepsis Status: Acute (7) COPD bronchitis Status: Acute (8) HTN (hypertension), benign Status: Acute - Assessment and Plan (Free Text) Assessment: Renal function stable Sodium minimally responding to tolvaptan, repeat dose today Monitor I/O's Await ID follow up for fever on multiple abx Maintain immunosuppression
[2018-03-11] MEDS ORDERED: Tolvaptan 15 MG TAB PO ONE (09:19)
[2018-03-11] MEDS: Febuxostat [Uloric] 80 MG PO SCH (11:55)
--- NOTE | 2018-03-11 14:50 | PN ---
Copied To: Cristopher Velasquez MD Attending MD: Cristopher Velasquez MD DATE: 03/11/2018 NEUROLOGY PROGRESS NOTE SUBJECTIVE: The patient is lying in the bed, in no acute distress. Denies having any headache or dizziness. PHYSICAL EXAMINATION: VITAL SIGNS: His blood pressure is 128/60, heart rate 85 per minute, breathing at a rate of 16 per minute, temperature is 100.6 degrees Fahrenheit. HEENT: Head normocephalic and atraumatic. NECK: Supple. There is no carotid bruits. LUNGS: Clear. CARDIOVASCULAR SYSTEM: S1 and S2 audible. No murmur. ABDOMEN: Soft and nontender. Bowel sounds present. NEUROLOGIC: Mental status: The patient is awake and alert. He follows simple commands. He does not know the year, the month. Cranial nerve: Pupils 3 mm bilateral and reactive to light. Visual clark are full. Extraocular movements are intact. There is no facial asymmetry. Tongue is midline. Motor: Tone is normal. Power in the upper extremities 4/5, in the lower extremities 3/5. Left lower extremity is in knee immobilizer. Plantars are downgoing bilaterally. LABORATORY DATA: Labs reviewed shows WBC 9.2, hemoglobin 8, hematocrit 24.2, and platelets 322. Sodium is 126, potassium 3.9, chloride 94, carbon dioxide 23, BUN of 13, creatinine 0.9, and glucose of 101. IMPRESSION: 1. Altered mental status, which is likely secondary to toxic metabolic encephalopathy. 2. Possible tuberculosis involving the left knee. 3. Diabetic neuropathy. 4. History of kidney transplant. RECOMMENDATION: 1. The patient is more alert since his Percocet was stopped. 2. The patient to continue to take Tylenol as needed. 3. The patient to have serum ammonia level. 4. The patient to have an electroencephalogram. 5. Please continue supportive care and other treatment. Thank you for the opportunity to participate in the care of this patient. Cristopher Velasquez MD
--- NOTE | 2018-03-11 23:47 | CP.PCM.PN ---
Subjective - Date & Time of Evaluation Date of Evaluation: 03/11/18 Time of Evaluation: 20:15 - Subjective Subjective: Patient still confused, but less. Left knee pain improved, Low grade fever. Objective - Vital Signs/Intake and Output Vital Signs (last 24 hours): Temp Pulse Resp BP Pulse Ox 99.1 F 90 20 96/51 L 99 03/11/18 15:00 03/11/18 15:00 03/11/18 15:00 03/11/18 17:41 03/11/18 15:00 Intake and Output: 03/11/18 03/12/18 18:59 06:59 Output Total 350 Balance -350 - Medications Medications: Current Medications Acetaminophen (Tylenol 325mg Tab) 650 mg PO Q6H PRN PRN Reason: Pain, moderate (4-7) Albuterol/Ipratropium (Duoneb 3 Mg/0.5 Mg (3 Ml) Ud) 3 ml INH RQ6 [facility] Last Admin: 03/11/18 19:28 Dose: 3 ml Apixaban (Eliquis) 2.5 mg PO BID [facility] Last Admin: 03/11/18 17:25 Dose: 2.5 mg Calcium/Vitamin D (Oyster Shell Calcium/Vitamin D 500 Mg-200 Iu) 1 tab PO DAILY [facility] Last Admin: 03/11/18 09:00 Dose: 1 tab Dextrose (Glutose 15) 0 gm PO ONCE PRN; Protocol PRN Reason: Hypoglycemia Protocol Diltiazem HCl (Cardizem Cd) 240 mg PO DAILY [facility] Last Admin: 03/11/18 09:01 Dose: 240 mg Ergocalciferol (Drisdol 50,000 Intl Units Cap) 1 cap PO QWK [facility] Last Admin: 03/08/18 11:02 Dose: 1 cap Ethambutol HCl (Myambutol) 400 mg PO Q8H [facility] PRN Reason: Protocol Last Admin: 03/11/18 20:15 Dose: 400 mg Folic Acid (Folic Acid) 1 mg PO DAILY [facility] Last Admin: 03/11/18 09:01 Dose: 1 mg Glucagon (Glucagen Diagnostic Kit) 0 mg IM STAT PRN; Protocol PRN Reason: Hypoglycemia Protocol Home Med (Patient's Own Medication) 1 tab PO DAILY [facility] Last Admin: 03/11/18 11:55 Dose: 1 tab Dextrose/Sodium Chloride (Dextrose 5%/0.9% Ns 1000 Ml) 1,000 mls @ 50 mls/hr IV .Q20H [facility] Last Admin: 03/11/18 04:45 Dose: 50 mls/hr Insulin Aspart (Novolog) 0 unit SC ACHS [facility] PRN Reason: Protocol Last Admin: 03/11/18 21:41 Dose: Not Given Isoniazid (Niazid) 300 mg PO DAILY [facility] PRN Reason: Protocol Last Admin: 03/11/18 09:01 Dose: 300 mg Levothyroxine Sodium (Synthroid) 175 mcg PO DAILY@0630 [facility] Last Admin: 03/11/18 06:13 Dose: 175 mcg Magnesium Oxide (Mag-Ox) 800 mg PO BID [facility] Last Admin: 03/11/18 17:24 Dose: 800 mg Montelukast Sodium (Singulair) 10 mg PO DAILY [facility] Last Admin: 03/11/18 09:00 Dose: 10 mg Pantoprazole Sodium (Protonix Ec Tab) 40 mg PO DAILY [facility] Last Admin: 03/11/18 09:01 Dose: 40 mg Potassium Phos/Sodium Phos (Neutra-Phos) 1 pkt PO BID [facility] Last Admin: 03/11/18 17:25 Dose: 1 pkt Prednisone (Prednisone Tab) 5 mg PO DAILY [facility] Last Admin: 03/11/18 09:01 Dose: 5 mg Pyridoxine HCl (Vitamin B6 50 Mg Tab) 50 mg PO DAILY [facility] Last Admin: 03/11/18 09:00 Dose: 50 mg Rifampin (Rifampin Cap) 600 mg PO DAILY [facility] PRN Reason: Protocol Last Admin: 03/11/18 09:00 Dose: 600 mg Rosuvastatin Calcium (Crestor) 5 mg PO HS [facility] Last Admin: 03/11/18 21:36 Dose: 5 mg Sodium Bicarbonate (Sodium Bicarbonate Tab) 650 mg PO TID [facility] Last Admin: 03/11/18 17:24 Dose: 650 mg Tacrolimus (Prograf Cap) 3 mg PO Q12 [facility] Last Admin: 03/11/18 21:35 Dose: 3 mg - Labs Labs: 03/11/18 07:26 03/11/18 07:26 PT 10.8 SECONDS (9.7-12.2) 02/28/18 11:22 INR 1.0 02/28/18 11:22 APTT 29 SECONDS (21-34) 02/28/18 11:22 - Constitutional Appears: No Acute Distress, Confused, Cachectic, Chronically Ill - Head Exam Head Exam: NORMAL INSPECTION - Eye Exam Eye Exam: Normal appearance Pupil Exam: NORMAL ACCOMODATION - ENT Exam ENT Exam: Normal Exam - Neck Exam Neck Exam: Normal Inspection - Respiratory Exam Respiratory Exam: Rhonchi - Cardiovascular Exam Cardiovascular Exam: REGULAR RHYTHM, Murmur - GI/Abdominal Exam GI & Abdominal Exam: Soft, Normal Bowel Sounds - Rectal Exam Rectal Exam: Deferred - Extremities Exam Additional comments: Left knee under bandage. - Back Exam Back Exam: NORMAL INSPECTION - Neurological Exam Neurological Exam: Awake - Psychiatric Exam Psychiatric exam: Depressed Assessment and Plan (1) Septic arthritis of knee, left Status: Acute (2) Severe sepsis Status: Acute (3) History of renal transplant Status: Chronic (4) Hypotension Status: Resolved (5) Hyponatremia Status: Acute (6) Altered mental status Status: Acute
[2018-03-12] MEDS: Albuterol-Ipratrop 3 mg / 0.5 (3 ml) UD INH SCH ×4 (01:03→20:58)
[2018-03-12] MEDS: Dextrose 5%/0.9% NS 1,000 ML IV SCH ×2 (02:06→20:00)
[2018-03-12] MEDS: Levothyroxine 175 MCG TAB PO SCH (07:41)
[2018-03-12 07:46] LABS: ALB/GLOB RATIO 0.7 (1.0-2.1); ALBUMIN 2.1 g/dL (3.5-5.0); ALT/SGPT 17 U/L (21-72); AST/SGOT 15 U/L (17-59); BLOOD UREA NITROGEN 13 mg/dL (9-20); CALCIUM 7.5 mg/dl (8.6-10.4); GFR NON-AFRICAN AMERICAN > 60
[2018-03-12] MEDS: (Novolog) Insulin Aspart, Recombinant 100 u/ml 10 ml vial SC SCH ×4 (08:22→22:06)
[2018-03-12] MEDS: Pantoprazole 40 mg EC Tab PO SCH (09:42)
[2018-03-12] MEDS: Calcium-Vit D 500 mg-200 Units Tab UD PO SCH (09:42)
[2018-03-12] MEDS: Magnesium Oxide 400 mg Tab UD PO SCH ×2 (09:42→17:10)
[2018-03-12] MEDS: Potassium & Sodium Phosphate PO SCH ×2 (09:48→17:10)
[2018-03-12] MEDS: Febuxostat [Uloric] 80 MG PO SCH (09:50)
[2018-03-12] MEDS: diltiaZEM 240 mg/24 Hours CD Cap PO SCH (10:36)
[2018-03-12] MEDS ORDERED: Potassium Chloride 20 mEq ER Tab PO ONE (11:00)
--- NOTE | 2018-03-12 16:01 | CP.PCM.PN ---
Subjective - Date & Time of Evaluation Date of Evaluation: 03/12/18 Time of Evaluation: 09:00 - Subjective Subjective: afebrile on anti TB meds with less pain and swelling synovial fluid + for MTB complex await sensitivities Ideally should receive 4 drugs PZA is relatively contraindicated in view of + Gout sputum smears are negative x 3- isolation can be d/c'd Objective - Vital Signs/Intake and Output Vital Signs (last 24 hours): Temp Pulse Resp BP Pulse Ox 97.6 F 62 20 119/61 99 03/12/18 07:06 03/12/18 10:34 03/12/18 07:06 03/12/18 10:34 03/12/18 07:06 Intake and Output: 03/12/18 03/12/18 06:59 18:59 Intake Total 400 Output Total 350 1125 Balance -350 -725 - Medications Medications: Current Medications Acetaminophen (Tylenol 325mg Tab) 650 mg PO Q6H PRN PRN Reason: Pain, moderate (4-7) Last Admin: 03/12/18 02:54 Dose: 650 mg Albuterol/Ipratropium (Duoneb 3 Mg/0.5 Mg (3 Ml) Ud) 3 ml INH RQ6 [facility] Last Admin: 03/12/18 13:48 Dose: Not Given Apixaban (Eliquis) 2.5 mg PO BID [facility] Last Admin: 03/12/18 09:49 Dose: 2.5 mg Calcium/Vitamin D (Oyster Shell Calcium/Vitamin D 500 Mg-200 Iu) 1 tab PO DAILY [facility] Last Admin: 03/12/18 09:42 Dose: 1 tab Dextrose (Glutose 15) 0 gm PO ONCE PRN; Protocol PRN Reason: Hypoglycemia Protocol Diltiazem HCl (Cardizem Cd) 240 mg PO DAILY [facility] Last Admin: 03/12/18 10:36 Dose: 240 mg Ergocalciferol (Drisdol 50,000 Intl Units Cap) 1 cap PO QWK [facility] Last Admin: 03/08/18 11:02 Dose: 1 cap Ethambutol HCl (Myambutol) 400 mg PO Q8H [facility] PRN Reason: Protocol Last Admin: 03/12/18 10:36 Dose: 400 mg Folic Acid (Folic Acid) 1 mg PO DAILY [facility] Last Admin: 03/12/18 09:42 Dose: 1 mg Glucagon (Glucagen Diagnostic Kit) 0 mg IM STAT PRN; Protocol PRN Reason: Hypoglycemia Protocol Home Med (Patient's Own Medication) 1 tab PO DAILY [facility] Last Admin: 03/12/18 09:50 Dose: 1 tab Dextrose/Sodium Chloride (Dextrose 5%/0.9% Ns 1000 Ml) 1,000 mls @ 50 mls/hr IV .Q20H [facility] Last Admin: 03/12/18 02:06 Dose: 50 mls/hr Insulin Aspart (Novolog) 0 unit SC ACHS [facility] PRN Reason: Protocol Last Admin: 03/12/18 12:30 Dose: Not Given Isoniazid (Niazid) 300 mg PO DAILY [facility] PRN Reason: Protocol Last Admin: 03/12/18 10:36 Dose: 300 mg Levothyroxine Sodium (Synthroid) 175 mcg PO DAILY@0630 [facility] Last Admin: 03/12/18 07:41 Dose: 175 mcg Magnesium Oxide (Mag-Ox) 800 mg PO BID [facility] Last Admin: 03/12/18 09:42 Dose: 800 mg Montelukast Sodium (Singulair) 10 mg PO DAILY [facility] Last Admin: 03/12/18 10:36 Dose: 10 mg Pantoprazole Sodium (Protonix Ec Tab) 40 mg PO DAILY [facility] Last Admin: 03/12/18 09:42 Dose: 40 mg Potassium Phos/Sodium Phos (Neutra-Phos) 1 pkt PO BID [facility] Last Admin: 03/12/18 09:48 Dose: 1 pkt Prednisone (Prednisone Tab) 5 mg PO DAILY [facility] Last Admin: 03/12/18 09:42 Dose: 5 mg Pyridoxine HCl (Vitamin B6 50 Mg Tab) 50 mg PO DAILY [facility] Last Admin: 03/12/18 09:49 Dose: 50 mg Rifampin (Rifampin Cap) 600 mg PO DAILY [facility] PRN Reason: Protocol Last Admin: 03/12/18 09:42 Dose: 600 mg Rosuvastatin Calcium (Crestor) 5 mg PO HS [facility] Last Admin: 03/11/18 21:36 Dose: 5 mg Sodium Bicarbonate (Sodium Bicarbonate Tab) 650 mg PO TID [facility] Last Admin: 03/12/18 13:02 Dose: 650 mg Tacrolimus (Prograf Cap) 3 mg PO Q12 [facility] Last Admin: 03/12/18 09:49 Dose: 3 mg - Labs Labs: 03/11/18 07:26 09/02/18 07:22 PT 10.8 SECONDS (9.7-12.2) 02/28/18 11:22 INR 1.0 02/28/18 11:22 APTT 29 SECONDS (21-34) 02/28/18 11:22 - Constitutional Appears: Non-toxic, Chronically Ill - Head Exam Head Exam: NORMOCEPHALIC - Eye Exam Eye Exam: EOMI. absent: Scleral icterus - ENT Exam ENT Exam: Mucous Membranes Dry - Neck Exam Neck Exam: absent: Lymphadenopathy - Respiratory Exam Respiratory Exam: Decreased Breath Sounds - Cardiovascular Exam Cardiovascular Exam: REGULAR RHYTHM - GI/Abdominal Exam GI & Abdominal Exam: Distended - Rectal Exam Rectal Exam: Deferred - Exam Exam: NORMAL INSPECTION - Extremities Exam Extremities Exam: absent: Pedal Edema - Back Exam Back Exam: absent: CVA tenderness (L), CVA tenderness (R) - Neurological Exam Neurological Exam: Alert, Awake, Oriented x3 - Psychiatric Exam Psychiatric exam: Depressed - Skin Skin Exam: Dry Assessment and Plan (1) Bronchiectasis with acute exacerbation Status: Acute (2) COPD bronchitis Status: Acute (3) Cardiomyopathy Status: Acute (4) Chest pain Status: Acute (5) Chronic atrial fibrillation Status: Acute (6) Chronic kidney disease, stage III (moderate) Status: Acute (7) DM type 2 (diabetes mellitus, type 2) Status: Acute (8) Gout Status: Acute - Assessment and Plan (Free Text) Assessment: afebrile on anti TB meds with less pain and swelling synovial fluid + for MTB complex await sensitivities Ideally should receive 4 drugs PZA is relatively contraindicated in view of + Gout sputum smears are negative x 3- isolation can be d/c'd
[2018-03-13] MEDS: Dextrose 5%/0.9% NS 1,000 ML IV SCH (01:00)
[2018-03-13] MEDS: Albuterol-Ipratrop 3 mg / 0.5 (3 ml) UD INH SCH ×4 (02:12→19:58)
[2018-03-13] MEDS: Levothyroxine 175 MCG TAB PO SCH (06:49)
[2018-03-13] MEDS: (Novolog) Insulin Aspart, Recombinant 100 u/ml 10 ml vial SC SCH ×4 (07:30→21:33)
[2018-03-13] MEDS: Magnesium Oxide 400 mg Tab UD PO SCH ×2 (09:42→17:37)
[2018-03-13] MEDS: diltiaZEM 240 mg/24 Hours CD Cap PO SCH (09:43)
[2018-03-13] MEDS: Potassium & Sodium Phosphate PO SCH ×2 (09:44→17:37)
[2018-03-13] MEDS: Calcium-Vit D 500 mg-200 Units Tab UD PO SCH (09:44)
[2018-03-13] MEDS: Febuxostat [Uloric] 80 MG PO SCH (09:44)
[2018-03-13] MEDS: Pantoprazole 40 mg EC Tab PO SCH (09:44)
--- NOTE | 2018-03-13 11:26 | CP.PCM.PN ---
Subjective - Date & Time of Evaluation Date of Evaluation: 03/13/18 Time of Evaluation: 11:22 - Subjective Subjective: More alert; still rather weak afebrile Still await afb cultures knee still painful- maybe better Renal function stable Na better at 128 [place] low- dose recently increased- repeat level Objective - Vital Signs/Intake and Output Vital Signs (last 24 hours): Temp Pulse Resp BP Pulse Ox 97.6 F 79 18 175/51 H 100 03/13/18 08:02 03/13/18 08:02 03/13/18 08:02 03/13/18 08:02 03/13/18 08:02 Intake and Output: 03/13/18 03/13/18 06:59 18:59 Intake Total 800 Output Total 1650 Balance -850 - Medications Medications: Current Medications Acetaminophen (Tylenol 325mg Tab) 650 mg PO Q6H PRN PRN Reason: Pain, moderate (4-7) Last Admin: 03/12/18 22:05 Dose: 650 mg Albuterol/Ipratropium (Duoneb 3 Mg/0.5 Mg (3 Ml) Ud) 3 ml INH RQ6 [facility] Last Admin: 03/13/18 07:31 Dose: Not Given Apixaban (Eliquis) 2.5 mg PO BID [facility] Last Admin: 03/13/18 09:45 Dose: 2.5 mg Calcium/Vitamin D (Oyster Shell Calcium/Vitamin D 500 Mg-200 Iu) 1 tab PO DAILY [facility] Last Admin: 03/13/18 09:44 Dose: 1 tab Dextrose (Glutose 15) 0 gm PO ONCE PRN; Protocol PRN Reason: Hypoglycemia Protocol Diltiazem HCl (Cardizem Cd) 240 mg PO DAILY [facility] Last Admin: 03/13/18 09:43 Dose: 240 mg Ergocalciferol (Drisdol 50,000 Intl Units Cap) 1 cap PO QWK [facility] Last Admin: 03/08/18 11:02 Dose: 1 cap Ethambutol HCl (Myambutol) 400 mg PO Q8H [facility] PRN Reason: Protocol Last Admin: 03/13/18 03:28 Dose: 400 mg Folic Acid (Folic Acid) 1 mg PO DAILY [facility] Last Admin: 03/13/18 09:49 Dose: 1 mg Glucagon (Glucagen Diagnostic Kit) 0 mg IM STAT PRN; Protocol PRN Reason: Hypoglycemia Protocol Home Med (Patient's Own Medication) 1 tab PO DAILY [facility] Last Admin: 03/13/18 09:44 Dose: 1 tab Dextrose/Sodium Chloride (Dextrose 5%/0.9% Ns 1000 Ml) 1,000 mls @ 50 mls/hr IV .Q20H [facility] Last Admin: 03/13/18 01:00 Dose: Not Given Insulin Aspart (Novolog) 0 unit SC ACHS [facility] PRN Reason: Protocol Last Admin: 03/13/18 07:30 Dose: Not Given Isoniazid (Niazid) 300 mg PO DAILY [facility] PRN Reason: Protocol Last Admin: 03/13/18 09:43 Dose: 300 mg Levothyroxine Sodium (Synthroid) 175 mcg PO DAILY@0630 [facility] Last Admin: 03/13/18 06:49 Dose: 175 mcg Magnesium Oxide (Mag-Ox) 800 mg PO BID [facility] Last Admin: 03/13/18 09:42 Dose: 800 mg Montelukast Sodium (Singulair) 10 mg PO DAILY [facility] Last Admin: 03/13/18 09:49 Dose: 10 mg Pantoprazole Sodium (Protonix Ec Tab) 40 mg PO DAILY [facility] Last Admin: 03/13/18 09:44 Dose: 40 mg Potassium Phos/Sodium Phos (Neutra-Phos) 1 pkt PO BID [facility] Last Admin: 03/13/18 09:44 Dose: 1 pkt Prednisone (Prednisone Tab) 5 mg PO DAILY [facility] Last Admin: 03/13/18 09:43 Dose: 5 mg Pyridoxine HCl (Vitamin B6 50 Mg Tab) 50 mg PO DAILY [facility] Last Admin: 03/13/18 09:45 Dose: 50 mg Rifampin (Rifampin Cap) 600 mg PO DAILY [facility] PRN Reason: Protocol Last Admin: 03/13/18 09:43 Dose: 600 mg Rosuvastatin Calcium (Crestor) 5 mg PO HS [facility] Last Admin: 03/12/18 22:05 Dose: 5 mg Sodium Bicarbonate (Sodium Bicarbonate Tab) 650 mg PO TID [facility] Last Admin: 03/13/18 09:43 Dose: 650 mg Tacrolimus (Prograf Cap) 3 mg PO Q12 [facility] Last Admin: 03/13/18 09:44 Dose: 3 mg - Labs Labs: 03/11/18 07:26 03/12/18 07:22 PT 10.8 SECONDS (9.7-12.2) 02/28/18 11:22 INR 1.0 02/28/18 11:22 APTT 29 SECONDS (21-34) 02/28/18 11:22 - Constitutional Appears: No Acute Distress, Confused, Chronically Ill - Head Exam Head Exam: ATRAUMATIC, NORMAL INSPECTION - Eye Exam Eye Exam: EOMI, Normal appearance - Neck Exam Neck Exam: Normal Inspection. absent: Tenderness - Respiratory Exam Respiratory Exam: Clear to Ausculation Bilateral, NORMAL BREATHING PATTERN - GI/Abdominal Exam GI & Abdominal Exam: Soft. absent: Tenderness - Extremities Exam Extremities Exam: Normal Inspection. absent: Tenderness - Neurological Exam Neurological Exam: Awake, CN II-XII Intact - Skin Skin Exam: Dry, Warm Assessment and Plan (1) Kidney transplant recipient Status: Acute (2) CKD (chronic kidney disease) stage 3, GFR 30-59 ml/min Status: Acute (3) Acute gout of left knee Status: Acute (4) Septic arthritis of knee, left Status: Acute (5) Cardiomyopathy Status: Acute (6) Atrial fibrillation Status: Chronic - Assessment and Plan (Free Text) Plan: Antimicrobials as per ID Recheck chemistries Tovalptan as needed Check tacro level
[2018-03-13 15:54] VITALS: RESP 20
--- NOTE | 2018-03-13 23:57 | CP.PCM.PN ---
Subjective - Date & Time of Evaluation Date of Evaluation: 03/13/18 Time of Evaluation: 19:30 - Subjective Subjective: Patient is afebrile, much less confused, and has less pain and swelling of the left knee. Appetite much improved. 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 Objective - Vital Signs/Intake and Output Vital Signs (last 24 hours): Temp Pulse Resp BP Pulse Ox 97.9 F 90 20 148/80 100 03/13/18 15:53 03/13/18 15:53 03/13/18 15:53 03/13/18 15:53 03/13/18 15:53 Intake and Output: 03/13/18 03/14/18 18:59 06:59 Intake Total 400 220 Output Total 825 1000 Balance -425 -780 - Medications Medications: Current Medications Acetaminophen (Tylenol 325mg Tab) 650 mg PO Q6H PRN PRN Reason: Pain, moderate (4-7) Last Admin: 03/12/18 22:05 Dose: 650 mg Albuterol/Ipratropium (Duoneb 3 Mg/0.5 Mg (3 Ml) Ud) 3 ml INH RQ6 [facility] Last Admin: 03/13/18 19:58 Dose: Not Given Apixaban (Eliquis) 2.5 mg PO BID [facility] Last Admin: 03/13/18 17:37 Dose: 2.5 mg Calcium/Vitamin D (Oyster Shell Calcium/Vitamin D 500 Mg-200 Iu) 1 tab PO DAILY [facility] Last Admin: 03/13/18 09:44 Dose: 1 tab Dextrose (Glutose 15) 0 gm PO ONCE PRN; Protocol PRN Reason: Hypoglycemia Protocol Diltiazem HCl (Cardizem Cd) 240 mg PO DAILY [facility] Last Admin: 03/13/18 09:43 Dose: 240 mg Ergocalciferol (Drisdol 50,000 Intl Units Cap) 1 cap PO QWK [facility] Last Admin: 03/08/18 11:02 Dose: 1 cap Ethambutol HCl (Myambutol) 400 mg PO Q8H [facility] PRN Reason: Protocol Last Admin: 03/13/18 19:34 Dose: 400 mg Folic Acid (Folic Acid) 1 mg PO DAILY [facility] Last Admin: 03/13/18 09:49 Dose: 1 mg Glucagon (Glucagen Diagnostic Kit) 0 mg IM STAT PRN; Protocol PRN Reason: Hypoglycemia Protocol Home Med (Patient's Own Medication) 1 tab PO DAILY [facility] Last Admin: 03/13/18 09:44 Dose: 1 tab Insulin Aspart (Novolog) 0 unit SC ACHS [facility] PRN Reason: Protocol Last Admin: 03/13/18 21:33 Dose: Not Given Isoniazid (Niazid) 300 mg PO DAILY [facility] PRN Reason: Protocol Last Admin: 03/13/18 09:43 Dose: 300 mg Levothyroxine Sodium (Synthroid) 175 mcg PO DAILY@0630 [facility] Last Admin: 03/13/18 06:49 Dose: 175 mcg Magnesium Oxide (Mag-Ox) 800 mg PO BID [facility] Last Admin: 03/13/18 17:37 Dose: 800 mg Montelukast Sodium (Singulair) 10 mg PO DAILY [facility] Last Admin: 03/13/18 09:49 Dose: 10 mg Pantoprazole Sodium (Protonix Ec Tab) 40 mg PO DAILY [facility] Last Admin: 03/13/18 09:44 Dose: 40 mg Potassium Phos/Sodium Phos (Neutra-Phos) 1 pkt PO BID [facility] Last Admin: 03/13/18 17:37 Dose: 1 pkt Prednisone (Prednisone Tab) 5 mg PO DAILY [facility] Last Admin: 03/13/18 09:43 Dose: 5 mg Pyridoxine HCl (Vitamin B6 50 Mg Tab) 50 mg PO DAILY [facility] Last Admin: 03/13/18 09:45 Dose: 50 mg Rifampin (Rifampin Cap) 600 mg PO DAILY [facility] PRN Reason: Protocol Last Admin: 03/13/18 09:43 Dose: 600 mg Rosuvastatin Calcium (Crestor) 5 mg PO HS [facility] Last Admin: 03/13/18 21:34 Dose: 5 mg Sodium Bicarbonate (Sodium Bicarbonate Tab) 650 mg PO TID [facility] Last Admin: 03/13/18 19:42 Dose: 650 mg Tacrolimus (Prograf Cap) 3 mg PO Q12H [facility] - Labs Labs: 03/11/18 07:26 03/12/18 07:22 PT 10.8 SECONDS (9.7-12.2) 02/28/18 11:22 INR 1.0 02/28/18 11:22 APTT 29 SECONDS (21-34) 02/28/18 11:22 - Constitutional Appears: Non-toxic, Chronically Ill - Head Exam Head Exam: NORMAL INSPECTION - Eye Exam Eye Exam: Normal appearance - ENT Exam ENT Exam: Normal Exam - Neck Exam Neck Exam: Normal Inspection - Respiratory Exam Respiratory Exam: Clear to Ausculation Bilateral - Cardiovascular Exam Cardiovascular Exam: REGULAR RHYTHM - GI/Abdominal Exam GI & Abdominal Exam: Soft, Normal Bowel Sounds - Rectal Exam Rectal Exam: Deferred - Exam Exam: NORMAL INSPECTION - Extremities Exam Additional comments: Tender and swollen left knee. 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 Status: Acute (2) Severe sepsis Assessment & Plan: On IV antibiotic. Status: Acute (3) History of renal transplant Status: Chronic (4) Hypotension Status: Resolved (5) Hyponatremia Status: Acute (6) Altered mental status Status: Resolved
[2018-03-14] MEDS: Albuterol-Ipratrop 3 mg / 0.5 (3 ml) UD INH SCH ×4 (01:37→20:13)
[2018-03-14] MEDS: Levothyroxine 175 MCG TAB PO SCH (06:22)
[2018-03-14] MEDS ORDERED: Oxycodone/Acetaminophen 5/325 mg Tab PO STA (06:51)
[2018-03-14 07:19] LABS: HEMOGLOBIN 8.7 g/dL (12.0-18.0); MEAN CELL VOLUME 76.8 fL (80.0-94.0); MEAN CORPUSCULAR HEMOGLOBIN 24.6 pg (27.0-31.0); MEAN PLATELET VOLUME 7.4 fL (7.2-11.7); RED CELL DISTRIBUTION WIDTH 19.2 % (11.5-14.5)
[2018-03-14 07:20] LABS: RBC 3.56 Mil/uL (4.40-5.90); WHITE BLOOD COUNT 7.3 K/uL (4.8-10.8)
[2018-03-14] MEDS: (Novolog) Insulin Aspart, Recombinant 100 u/ml 10 ml vial SC SCH ×4 (07:39→21:22)
[2018-03-14 08:16] LABS: ALBUMIN 2.7 g/dL (3.5-5.0); ALT/SGPT 25 U/L (21-72); AST/SGOT 29 U/L (17-59); BLOOD UREA NITROGEN 8 mg/dL (9-20); CALCIUM 8.4 mg/dl (8.6-10.4); GFR NON-AFRICAN AMERICAN > 60
--- NOTE | 2018-03-14 08:16 | CP.PCM.PN ---
Subjective - Date & Time of Evaluation Date of Evaluation: 03/14/18 Time of Evaluation: 08:10 - Subjective Subjective: Patient states his knee feels a little better. No new complaints. Objective - Vital Signs/Intake and Output Vital Signs (last 24 hours): Temp Pulse Resp BP Pulse Ox 98.2 F 76 20 111/48 L 100 03/13/18 23:20 03/13/18 23:20 03/13/18 23:20 03/13/18 23:20 03/13/18 23:20 Intake and Output: 03/14/18 03/14/18 06:59 18:59 Intake Total 480 Output Total 1600 Balance -1120 - Medications Medications: Current Medications Acetaminophen (Tylenol 325mg Tab) 650 mg PO Q6H PRN PRN Reason: Pain, moderate (4-7) Last Admin: 03/12/18 22:05 Dose: 650 mg Albuterol/Ipratropium (Duoneb 3 Mg/0.5 Mg (3 Ml) Ud) 3 ml INH RQ6 [facility] Last Admin: 03/14/18 07:16 Dose: Not Given Apixaban (Eliquis) 2.5 mg PO BID [facility] Last Admin: 03/13/18 17:37 Dose: 2.5 mg Calcium/Vitamin D (Oyster Shell Calcium/Vitamin D 500 Mg-200 Iu) 1 tab PO DAILY [facility] Last Admin: 03/13/18 09:44 Dose: 1 tab Dextrose (Glutose 15) 0 gm PO ONCE PRN; Protocol PRN Reason: Hypoglycemia Protocol Diltiazem HCl (Cardizem Cd) 240 mg PO DAILY [facility] Last Admin: 03/13/18 09:43 Dose: 240 mg Ergocalciferol (Drisdol 50,000 Intl Units Cap) 1 cap PO QWK [facility] Last Admin: 03/08/18 11:02 Dose: 1 cap Ethambutol HCl (Myambutol) 400 mg PO Q8H [facility] PRN Reason: Protocol Last Admin: 03/14/18 04:01 Dose: 400 mg Folic Acid (Folic Acid) 1 mg PO DAILY [facility] Last Admin: 03/13/18 09:49 Dose: 1 mg Glucagon (Glucagen Diagnostic Kit) 0 mg IM STAT PRN; Protocol PRN Reason: Hypoglycemia Protocol Home Med (Patient's Own Medication) 1 tab PO DAILY [facility] Last Admin: 03/13/18 09:44 Dose: 1 tab Insulin Aspart (Novolog) 0 unit SC ACHS [facility] PRN Reason: Protocol Last Admin: 03/14/18 07:39 Dose: Not Given Isoniazid (Niazid) 300 mg PO DAILY [facility] PRN Reason: Protocol Last Admin: 03/13/18 09:43 Dose: 300 mg Levothyroxine Sodium (Synthroid) 175 mcg PO DAILY@0630 [facility] Last Admin: 03/14/18 06:22 Dose: 175 mcg Magnesium Oxide (Mag-Ox) 800 mg PO BID [facility] Last Admin: 03/13/18 17:37 Dose: 800 mg Montelukast Sodium (Singulair) 10 mg PO DAILY [facility] Last Admin: 03/13/18 09:49 Dose: 10 mg Pantoprazole Sodium (Protonix Ec Tab) 40 mg PO DAILY [facility] Last Admin: 03/13/18 09:44 Dose: 40 mg Potassium Phos/Sodium Phos (Neutra-Phos) 1 pkt PO BID [facility] Last Admin: 03/13/18 17:37 Dose: 1 pkt Prednisone (Prednisone Tab) 5 mg PO DAILY [facility] Last Admin: 03/13/18 09:43 Dose: 5 mg Pyridoxine HCl (Vitamin B6 50 Mg Tab) 50 mg PO DAILY [facility] Last Admin: 03/13/18 09:45 Dose: 50 mg Rifampin (Rifampin Cap) 600 mg PO DAILY [facility] PRN Reason: Protocol Last Admin: 03/13/18 09:43 Dose: 600 mg Rosuvastatin Calcium (Crestor) 5 mg PO HS [facility] Last Admin: 03/13/18 21:34 Dose: 5 mg Sodium Bicarbonate (Sodium Bicarbonate Tab) 650 mg PO TID [facility] Last Admin: 03/13/18 19:42 Dose: 650 mg Tacrolimus (Prograf Cap) 3 mg PO Q12H [facility] Last Admin: 03/14/18 04:01 Dose: 3 mg - Labs Labs: 03/14/18 07:14 03/12/18 07:22 PT 10.8 SECONDS (9.7-12.2) 02/28/18 11:22 INR 1.0 02/28/18 11:22 APTT 29 SECONDS (21-34) 02/28/18 11:22 - Extremities Exam Additional comments: left knee dressing change. incisions intact, minimal swelling, minimal effusion , improved post op. No erythema, mild tenderness +DF ankle, +toe extension, 4/5 patient more alert today sensation intact to LLE calves soft NT neg homans Assessment and Plan (1) Tuberculosis of left knee joint Assessment & Plan: POD#5 s/p repeat I&D arthroscopic knee, open popliteal fossa WBAT with PT tx as per ID orthopedically stable VTE proph encourage OOB knee immobilizer prn with PT d/w Dr. Isaac, agrees with above Status: Acute (2) Septic arthritis of knee, left Status: Acute (3) Acute gout of left knee Status: Acute
[2018-03-14] MEDS: Calcium-Vit D 500 mg-200 Units Tab UD PO SCH (09:20)
[2018-03-14] MEDS: Febuxostat [Uloric] 80 MG PO SCH (09:20)
[2018-03-14] MEDS: Potassium & Sodium Phosphate PO SCH ×2 (09:20→17:03)
[2018-03-14] MEDS: diltiaZEM 240 mg/24 Hours CD Cap PO SCH (09:20)
[2018-03-14] MEDS: Magnesium Oxide 400 mg Tab UD PO SCH ×2 (09:20→17:02)
[2018-03-14] MEDS: Pantoprazole 40 mg EC Tab PO SCH (09:20)
--- NOTE | 2018-03-14 10:45 | CP.PCM.PN ---
Subjective - Date & Time of Evaluation Date of Evaluation: 03/14/18 Time of Evaluation: 10:43 - Subjective Subjective: seen and examined c/o knee pain weak, working with PT chart reviewed. labs noted na 131 Objective - Vital Signs/Intake and Output Vital Signs (last 24 hours): Temp Pulse Resp BP Pulse Ox 98.4 F 87 20 117/82 99 03/14/18 08:20 03/14/18 08:20 03/14/18 08:20 03/14/18 08:20 03/14/18 08:20 Intake and Output: 03/14/18 03/14/18 06:59 18:59 Intake Total 480 Output Total 1600 Balance -1120 - Medications Medications: Current Medications Acetaminophen (Tylenol 325mg Tab) 650 mg PO Q6H PRN PRN Reason: Pain, moderate (4-7) Last Admin: 03/12/18 22:05 Dose: 650 mg Albuterol/Ipratropium (Duoneb 3 Mg/0.5 Mg (3 Ml) Ud) 3 ml INH RQ6 [facility] Last Admin: 03/14/18 07:16 Dose: Not Given Apixaban (Eliquis) 2.5 mg PO BID [facility] Last Admin: 03/14/18 09:19 Dose: 2.5 mg Calcium/Vitamin D (Oyster Shell Calcium/Vitamin D 500 Mg-200 Iu) 1 tab PO DAILY [facility] Last Admin: 03/14/18 09:20 Dose: 1 tab Dextrose (Glutose 15) 0 gm PO ONCE PRN; Protocol PRN Reason: Hypoglycemia Protocol Diltiazem HCl (Cardizem Cd) 240 mg PO DAILY [facility] Last Admin: 03/14/18 09:20 Dose: 240 mg Ergocalciferol (Drisdol 50,000 Intl Units Cap) 1 cap PO QWK [facility] Last Admin: 03/08/18 11:02 Dose: 1 cap Ethambutol HCl (Myambutol) 400 mg PO Q8H [facility] PRN Reason: Protocol Last Admin: 03/14/18 04:01 Dose: 400 mg Folic Acid (Folic Acid) 1 mg PO DAILY [facility] Last Admin: 03/14/18 09:19 Dose: 1 mg Glucagon (Glucagen Diagnostic Kit) 0 mg IM STAT PRN; Protocol PRN Reason: Hypoglycemia Protocol Home Med (Patient's Own Medication) 1 tab PO DAILY [facility] Last Admin: 03/14/18 09:20 Dose: 1 tab Insulin Aspart (Novolog) 0 unit SC ACHS [facility] PRN Reason: Protocol Last Admin: 03/14/18 07:39 Dose: Not Given Isoniazid (Niazid) 300 mg PO DAILY [facility] PRN Reason: Protocol Last Admin: 03/14/18 09:19 Dose: 300 mg Levothyroxine Sodium (Synthroid) 175 mcg PO DAILY@0630 [facility] Last Admin: 03/14/18 06:22 Dose: 175 mcg Magnesium Oxide (Mag-Ox) 800 mg PO BID [facility] Last Admin: 03/14/18 09:20 Dose: 800 mg Montelukast Sodium (Singulair) 10 mg PO DAILY [facility] Last Admin: 03/14/18 09:20 Dose: 10 mg Pantoprazole Sodium (Protonix Ec Tab) 40 mg PO DAILY [facility] Last Admin: 03/14/18 09:20 Dose: 40 mg Potassium Phos/Sodium Phos (Neutra-Phos) 1 pkt PO BID [facility] Last Admin: 03/14/18 09:20 Dose: 1 pkt Prednisone (Prednisone Tab) 5 mg PO DAILY [facility] Last Admin: 03/14/18 09:20 Dose: 5 mg Pyridoxine HCl (Vitamin B6 50 Mg Tab) 50 mg PO DAILY [facility] Last Admin: 03/14/18 09:20 Dose: 50 mg Rifampin (Rifampin Cap) 600 mg PO DAILY [facility] PRN Reason: Protocol Last Admin: 03/14/18 09:20 Dose: 600 mg Rosuvastatin Calcium (Crestor) 5 mg PO HS [facility] Last Admin: 03/13/18 21:34 Dose: 5 mg Sodium Bicarbonate (Sodium Bicarbonate Tab) 650 mg PO TID [facility] Last Admin: 03/14/18 09:19 Dose: 650 mg Sodium Chloride (Sodium Chloride Tab) 1 gm PO BID [facility] Tacrolimus (Prograf Cap) 3 mg PO Q12H [facility] Last Admin: 03/14/18 04:01 Dose: 3 mg - Labs Labs: 03/14/18 07:14 03/14/18 07:14 PT 10.8 SECONDS (9.7-12.2) 02/28/18 11:22 INR 1.0 02/28/18 11:22 APTT 29 SECONDS (21-34) 02/28/18 11:22 - Constitutional Appears: No Acute Distress, Cachectic, Chronically Ill - Head Exam Head Exam: NORMAL INSPECTION, NORMOCEPHALIC - Eye Exam Eye Exam: Normal appearance, PERRL - ENT Exam ENT Exam: Mucous Membranes Moist, Normal Exam - Neck Exam Neck Exam: Full ROM, Normal Inspection - Respiratory Exam Respiratory Exam: Clear to Ausculation Bilateral, NORMAL BREATHING PATTERN - Cardiovascular Exam Cardiovascular Exam: REGULAR RHYTHM, RRR - GI/Abdominal Exam GI & Abdominal Exam: Soft, Normal Bowel Sounds - Extremities Exam Extremities Exam: Normal Inspection (left knee dressing) - Neurological Exam Neurological Exam: Alert, Awake, Oriented x3 - Psychiatric Exam Psychiatric exam: Normal Affect, Normal Mood - Skin Skin Exam: Dry, Intact Assessment and Plan (1) Acute gout of left knee Status: Acute (2) Hypotension Status: Resolved (3) Septic arthritis of knee, left Status: Acute (4) Chronic atrial fibrillation Status: Acute (5) Chronic kidney disease, stage III (moderate) Status: Acute (6) DM type 2 (diabetes mellitus, type 2) Status: Acute (7) HTN (hypertension), benign Status: Acute - Assessment and Plan (Free Text) Assessment: knee arthritis - ? septic/ TB renal transplant hypona plan: fluid restriction, po nacl tabs watch tacro levels on cardizem ID management
--- NOTE | 2018-03-14 11:58 | CP.PCM.PN ---
Subjective - Date & Time of Evaluation Date of Evaluation: 03/14/18 Time of Evaluation: 08:00 - Subjective Subjective: awaiting [facility] culture reports afeb on anti TB Meds + cubicin to cont same at home Objective - Vital Signs/Intake and Output Vital Signs (last 24 hours): Temp Pulse Resp BP Pulse Ox 98.4 F 87 20 117/82 99 03/14/18 08:20 03/14/18 08:20 03/14/18 08:20 03/14/18 08:20 03/14/18 08:20 Intake and Output: 03/14/18 03/14/18 06:59 18:59 Intake Total 480 Output Total 1600 Balance -1120 - Medications Medications: Current Medications Acetaminophen (Tylenol 325mg Tab) 650 mg PO Q6H PRN PRN Reason: Pain, moderate (4-7) Last Admin: 03/12/18 22:05 Dose: 650 mg Albuterol/Ipratropium (Duoneb 3 Mg/0.5 Mg (3 Ml) Ud) 3 ml INH RQ6 [facility] Last Admin: 03/14/18 07:16 Dose: Not Given Apixaban (Eliquis) 2.5 mg PO BID [facility] Last Admin: 03/14/18 09:19 Dose: 2.5 mg Calcium/Vitamin D (Oyster Shell Calcium/Vitamin D 500 Mg-200 Iu) 1 tab PO DAILY [facility] Last Admin: 03/14/18 09:20 Dose: 1 tab Dextrose (Glutose 15) 0 gm PO ONCE PRN; Protocol PRN Reason: Hypoglycemia Protocol Diltiazem HCl (Cardizem Cd) 240 mg PO DAILY [facility] Last Admin: 03/14/18 09:20 Dose: 240 mg Ergocalciferol (Drisdol 50,000 Intl Units Cap) 1 cap PO QWK [facility] Last Admin: 03/08/18 11:02 Dose: 1 cap Ethambutol HCl (Myambutol) 400 mg PO Q8H [facility] PRN Reason: Protocol Last Admin: 03/14/18 04:01 Dose: 400 mg Folic Acid (Folic Acid) 1 mg PO DAILY [facility] Last Admin: 03/14/18 09:19 Dose: 1 mg Glucagon (Glucagen Diagnostic Kit) 0 mg IM STAT PRN; Protocol PRN Reason: Hypoglycemia Protocol Home Med (Patient's Own Medication) 1 tab PO DAILY [facility] Last Admin: 03/14/18 09:20 Dose: 1 tab Daptomycin 310 mg/ Sodium (Chloride) 100 mls @ 100 mls/hr IV Q24H [facility] PRN Reason: Protocol Stop: 03/19/18 16:01 Insulin Aspart (Novolog) 0 unit SC ACHS [facility] PRN Reason: Protocol Last Admin: 03/14/18 07:39 Dose: Not Given Isoniazid (Niazid) 300 mg PO DAILY [facility] PRN Reason: Protocol Last Admin: 03/14/18 09:19 Dose: 300 mg Levothyroxine Sodium (Synthroid) 175 mcg PO DAILY@0630 [facility] Last Admin: 03/14/18 06:22 Dose: 175 mcg Magnesium Oxide (Mag-Ox) 800 mg PO BID [facility] Last Admin: 03/14/18 09:20 Dose: 800 mg Montelukast Sodium (Singulair) 10 mg PO DAILY [facility] Last Admin: 03/14/18 09:20 Dose: 10 mg Pantoprazole Sodium (Protonix Ec Tab) 40 mg PO DAILY [facility] Last Admin: 03/14/18 09:20 Dose: 40 mg Potassium Phos/Sodium Phos (Neutra-Phos) 1 pkt PO BID [facility] Last Admin: 03/14/18 09:20 Dose: 1 pkt Prednisone (Prednisone Tab) 5 mg PO DAILY [facility] Last Admin: 03/14/18 09:20 Dose: 5 mg Pyridoxine HCl (Vitamin B6 50 Mg Tab) 50 mg PO DAILY [facility] Last Admin: 03/14/18 09:20 Dose: 50 mg Rifampin (Rifampin Cap) 600 mg PO DAILY [facility] PRN Reason: Protocol Last Admin: 03/14/18 09:20 Dose: 600 mg Rosuvastatin Calcium (Crestor) 5 mg PO HS [facility] Last Admin: 03/13/18 21:34 Dose: 5 mg Sodium Bicarbonate (Sodium Bicarbonate Tab) 650 mg PO TID [facility] Last Admin: 03/14/18 09:19 Dose: 650 mg Sodium Chloride (Sodium Chloride Tab) 1 gm PO BID [facility] Tacrolimus (Prograf Cap) 3 mg PO Q12H [facility] Last Admin: 03/14/18 04:01 Dose: 3 mg - Labs Labs: 03/14/18 07:14 03/14/18 07:14 PT 10.8 SECONDS (9.7-12.2) 02/28/18 11:22 INR 1.0 02/28/18 11:22 APTT 29 SECONDS (21-34) 02/28/18 11:22 - Constitutional Appears: Non-toxic, Cachectic, Chronically Ill - Head Exam Head Exam: NORMOCEPHALIC - Eye Exam Eye Exam: PERRL - ENT Exam ENT Exam: Mucous Membranes Dry - Neck Exam Neck Exam: absent: Lymphadenopathy - Respiratory Exam Respiratory Exam: Decreased Breath Sounds - Cardiovascular Exam Cardiovascular Exam: REGULAR RHYTHM - GI/Abdominal Exam GI & Abdominal Exam: Distended - Rectal Exam Rectal Exam: Deferred - Exam Exam: NORMAL INSPECTION - Extremities Exam Extremities Exam: absent: Pedal Edema - Back Exam Back Exam: absent: CVA tenderness (L), CVA tenderness (R) Assessment and Plan (1) Bronchiectasis with acute exacerbation Status: Acute (2) COPD bronchitis Status: Acute (3) Cardiomyopathy Status: Acute (4) Chest pain Status: Acute (5) Chronic atrial fibrillation Status: Acute (6) Chronic kidney disease, stage III (moderate) Status: Acute (7) DM type 2 (diabetes mellitus, type 2) Status: Acute (8) Gout Status: Acute
[2018-03-14 16:52] VITALS: O2SAT 100
--- NOTE | 2018-03-14 22:46 | PN ---
Copied To: Cristopher Velasquez MD Attending MD: Cristopher Velsaquez MD DATE: 03/14/2018 NEUROLOGY PROGRESS NOTE SUBJECTIVE: The patient is lying in the bed, in no acute distress. Denies having any headache or dizziness. PHYSICAL EXAMINATION: VITAL SIGNS: His blood pressure is 105/51, heart rate 89 per minute, breathing at a rate of 16 per minute, temperature is 97.6 degrees Fahrenheit. HEENT: Head is normocephalic and atraumatic. NECK: Supple. There are no carotid bruits. LUNGS: Clear. CARDIOVASCULAR SYSTEM: S1 and S2 audible. No murmur. ABDOMEN: Soft and nontender with bowel sounds present. NEUROLOGIC: Mental status: The patient is awake, alert, oriented to place; the year is 2018, month is March, the president is [place]. He follows all simple commands. Cranial nerve: Pupils 3 mm bilateral and reactive to light. Visual clark are full. Extraocular movements are intact. There is no facial asymmetry. He is moving all four extremities. The plantars are downgoing bilaterally. Cerebellar: [id number] shows no dysmetria. LABORATORY DATA: Labs reviewed shows WBC 97.3, hemoglobin 8.7, hematocrit 27.3, and platelets of 420. His sodium is 131, potassium 4.3, chloride 98, carbon dioxide 22, BUN of 8, creatinine of 0.8, and glucose of 79. IMPRESSION: 1. Status post altered mental status which was likely toxic metabolic encephalopathy. 2. Diabetic neuropathy. 3. History of renal transplant. RECOMMENDATIONS: 1. The patient's mental status is significantly better. 2. The patient to continue to take Tylenol as needed. 3. The patient to have an electroencephalogram if not already done. 4. Please continue supportive care and the treatment. Thank you for the opportunity to participate in the care of this patient. Cristopher Velasquez MD
[2018-03-15] MEDS: Albuterol-Ipratrop 3 mg / 0.5 (3 ml) UD INH SCH ×3 (01:57→14:00)
[2018-03-15] MEDS: Levothyroxine 175 MCG TAB PO SCH (06:10)
[2018-03-15] MEDS: (Novolog) Insulin Aspart, Recombinant 100 u/ml 10 ml vial SC SCH ×3 (07:46→16:59)
[2018-03-15 07:48] VITALS: TEMP 98.3
[2018-03-15 08:01] LABS: ALB/GLOB RATIO 0.8 (1.0-2.1); ALBUMIN 2.5 g/dL (3.5-5.0); ALT/SGPT 23 U/L (21-72); AST/SGOT 26 U/L (17-59); BLOOD UREA NITROGEN 12 mg/dL (9-20); CALCIUM 8.2 mg/dl (8.6-10.4); GFR NON-AFRICAN AMERICAN > 60
[2018-03-15] MEDS: Calcium-Vit D 500 mg-200 Units Tab UD PO SCH (10:28)
[2018-03-15] MEDS: Febuxostat [Uloric] 80 MG PO SCH (10:29)
[2018-03-15] MEDS: Magnesium Oxide 400 mg Tab UD PO SCH (10:29)
[2018-03-15] MEDS: Potassium & Sodium Phosphate PO SCH (10:29)
[2018-03-15] MEDS: Pantoprazole 40 mg EC Tab PO SCH (10:29)
[2018-03-15] MEDS: diltiaZEM 240 mg/24 Hours CD Cap PO SCH (10:29)
[2018-03-15] MEDS: Ergocalciferol 50,000 Intl Units Cap PO SCH (10:30)
--- NOTE | 2018-03-15 12:58 | CP.PCM.PN ---
Subjective - Date & Time of Evaluation Date of Evaluation: 03/15/18 Time of Evaluation: 17:31 - Subjective Subjective: Patient more lethargic today. Follows commands. Objective - Vital Signs/Intake and Output Vital Signs (last 24 hours): Temp Pulse Resp BP Pulse Ox 98.3 F 93 H 20 162/68 H 100 03/15/18 07:00 03/15/18 07:00 03/15/18 07:00 03/15/18 07:00 03/15/18 07:00 Intake and Output: 03/15/18 03/15/18 06:59 18:59 Output Total 150 Balance -150 - Medications Medications: Current Medications Acetaminophen (Tylenol 325mg Tab) 650 mg PO Q6H PRN PRN Reason: Pain, moderate (4-7) Last Admin: 03/12/18 22:05 Dose: 650 mg Albuterol/Ipratropium (Duoneb 3 Mg/0.5 Mg (3 Ml) Ud) 3 ml INH RQ6 [facility] Last Admin: 03/15/18 07:59 Dose: Not Given Apixaban (Eliquis) 2.5 mg PO BID [facility] Last Admin: 03/15/18 10:29 Dose: 2.5 mg Calcium/Vitamin D (Oyster Shell Calcium/Vitamin D 500 Mg-200 Iu) 1 tab PO DAILY [facility] Last Admin: 03/15/18 10:28 Dose: 1 tab Dextrose (Glutose 15) 0 gm PO ONCE PRN; Protocol PRN Reason: Hypoglycemia Protocol Diltiazem HCl (Cardizem Cd) 240 mg PO DAILY [facility] Last Admin: 03/15/18 10:29 Dose: 240 mg Ergocalciferol (Drisdol 50,000 Intl Units Cap) 1 cap PO QWK [facility] Last Admin: 03/15/18 10:30 Dose: 1 cap Ethambutol HCl (Myambutol) 400 mg PO Q8H [facility] PRN Reason: Protocol Last Admin: 03/15/18 02:41 Dose: 400 mg Folic Acid (Folic Acid) 1 mg PO DAILY [facility] Last Admin: 03/15/18 10:29 Dose: 1 mg Glucagon (Glucagen Diagnostic Kit) 0 mg IM STAT PRN; Protocol PRN Reason: Hypoglycemia Protocol Home Med (Patient's Own Medication) 1 tab PO DAILY [facility] Last Admin: 03/15/18 10:29 Dose: 1 tab Daptomycin 310 mg/ Sodium (Chloride) 100 mls @ 100 mls/hr IV Q24H [facility] PRN Reason: Protocol Stop: 03/19/18 16:01 Last Admin: 03/14/18 17:01 Dose: 100 mls/hr Insulin Aspart (Novolog) 0 unit SC ACHS [facility] PRN Reason: Protocol Last Admin: 03/15/18 11:45 Dose: Not Given Isoniazid (Niazid) 300 mg PO DAILY [facility] PRN Reason: Protocol Last Admin: 03/15/18 10:29 Dose: 300 mg Levothyroxine Sodium (Synthroid) 175 mcg PO DAILY@0630 [facility] Last Admin: 03/15/18 06:10 Dose: 175 mcg Magnesium Oxide (Mag-Ox) 800 mg PO BID [facility] Last Admin: 03/15/18 10:29 Dose: 800 mg Montelukast Sodium (Singulair) 10 mg PO DAILY [facility] Last Admin: 03/15/18 10:29 Dose: 10 mg Pantoprazole Sodium (Protonix Ec Tab) 40 mg PO DAILY [facility] Last Admin: 03/15/18 10:29 Dose: 40 mg Potassium Phos/Sodium Phos (Neutra-Phos) 1 pkt PO BID [facility] Last Admin: 03/15/18 10:29 Dose: 1 pkt Prednisone (Prednisone Tab) 5 mg PO DAILY [facility] Last Admin: 03/15/18 10:29 Dose: 5 mg Pyridoxine HCl (Vitamin B6 50 Mg Tab) 50 mg PO DAILY [facility] Last Admin: 03/15/18 10:29 Dose: 50 mg Rifampin (Rifampin Cap) 600 mg PO DAILY [facility] PRN Reason: Protocol Last Admin: 03/15/18 10:28 Dose: 600 mg Rosuvastatin Calcium (Crestor) 5 mg PO HS [facility] Last Admin: 03/14/18 21:25 Dose: 5 mg Sodium Bicarbonate (Sodium Bicarbonate Tab) 650 mg PO TID [facility] Last Admin: 03/15/18 10:29 Dose: 650 mg Sodium Chloride (Sodium Chloride Tab) 1 gm PO BID [facility] Last Admin: 03/15/18 10:28 Dose: 1 gm Tacrolimus (Prograf Cap) 3 mg PO Q12H [facility] Last Admin: 03/15/18 03:45 Dose: 3 mg - Labs Labs: 03/14/18 07:14 03/15/18 07:15 PT 10.8 SECONDS (9.7-12.2) 02/28/18 11:22 INR 1.0 02/28/18 11:22 APTT 29 SECONDS (21-34) 02/28/18 11:22 - Extremities Exam Additional comments: Left knee: incisions intact, dcry, no erythema, no increase, minimal residual effusion, mild pain with knee flexion, knee immob d/c'd. gabriel reapplied+ROM ankel /toes, still mild weakness to DF, sensation appears intact. +DP, calves soft NT neg homans Assessment and Plan (1) Tuberculosis of left knee joint Assessment & Plan: POD#6 s/p repeat I&D and open I&D orthopedically stable PT/OT OOB kne immob d/c'd, WBAT d/w Dr. Tovar, agrees with above patient to f/u approx [address] Tovar as outpt Status: Acute (2) Septic arthritis of knee, left Status: Acute (3) Acute gout of left knee Status: Acute
--- NOTE | 2018-03-15 14:01 | CP.PCM.PN ---
Subjective - Date & Time of Evaluation Date of Evaluation: 03/15/18 Time of Evaluation: 14:00 - Subjective Subjective: still with severe knee pains Na 129- acceptable renal function stable tacro levels low has been afebrile, afb cultures pending Objective - Vital Signs/Intake and Output Vital Signs (last 24 hours): Temp Pulse Resp BP Pulse Ox 98.3 F 93 H 20 162/68 H 100 03/15/18 07:00 03/15/18 07:00 03/15/18 07:00 03/15/18 07:00 03/15/18 07:00 Intake and Output: 03/15/18 03/15/18 06:59 18:59 Output Total 150 Balance -150 - Medications Medications: Current Medications Acetaminophen (Tylenol 325mg Tab) 650 mg PO Q6H PRN PRN Reason: Pain, moderate (4-7) Last Admin: 03/12/18 22:05 Dose: 650 mg Albuterol/Ipratropium (Duoneb 3 Mg/0.5 Mg (3 Ml) Ud) 3 ml INH RQ6 [facility] Last Admin: 03/15/18 07:59 Dose: Not Given Apixaban (Eliquis) 2.5 mg PO BID [facility] Last Admin: 03/15/18 10:29 Dose: 2.5 mg Calcium/Vitamin D (Oyster Shell Calcium/Vitamin D 500 Mg-200 Iu) 1 tab PO DAILY [facility] Last Admin: 03/15/18 10:28 Dose: 1 tab Dextrose (Glutose 15) 0 gm PO ONCE PRN; Protocol PRN Reason: Hypoglycemia Protocol Diltiazem HCl (Cardizem Cd) 240 mg PO DAILY [facility] Last Admin: 03/15/18 10:29 Dose: 240 mg Ergocalciferol (Drisdol 50,000 Intl Units Cap) 1 cap PO QWK [facility] Last Admin: 03/15/18 10:30 Dose: 1 cap Ethambutol HCl (Myambutol) 400 mg PO Q8H [facility] PRN Reason: Protocol Last Admin: 03/15/18 02:41 Dose: 400 mg Folic Acid (Folic Acid) 1 mg PO DAILY [facility] Last Admin: 03/15/18 10:29 Dose: 1 mg Glucagon (Glucagen Diagnostic Kit) 0 mg IM STAT PRN; Protocol PRN Reason: Hypoglycemia Protocol Home Med (Patient's Own Medication) 1 tab PO DAILY [facility] Last Admin: 03/15/18 10:29 Dose: 1 tab Daptomycin 310 mg/ Sodium (Chloride) 100 mls @ 100 mls/hr IV Q24H [facility] PRN Reason: Protocol Stop: 03/19/18 16:01 Last Admin: 03/14/18 17:01 Dose: 100 mls/hr Insulin Aspart (Novolog) 0 unit SC ACHS [facility] PRN Reason: Protocol Last Admin: 03/15/18 11:45 Dose: Not Given Isoniazid (Niazid) 300 mg PO DAILY [facility] PRN Reason: Protocol Last Admin: 03/15/18 10:29 Dose: 300 mg Levothyroxine Sodium (Synthroid) 175 mcg PO DAILY@0630 [facility] Last Admin: 03/15/18 06:10 Dose: 175 mcg Magnesium Oxide (Mag-Ox) 800 mg PO BID [facility] Last Admin: 03/15/18 10:29 Dose: 800 mg Montelukast Sodium (Singulair) 10 mg PO DAILY [facility] Last Admin: 03/15/18 10:29 Dose: 10 mg Pantoprazole Sodium (Protonix Ec Tab) 40 mg PO DAILY [facility] Last Admin: 03/15/18 10:29 Dose: 40 mg Potassium Phos/Sodium Phos (Neutra-Phos) 1 pkt PO BID [facility] Last Admin: 03/15/18 10:29 Dose: 1 pkt Prednisone (Prednisone Tab) 5 mg PO DAILY [facility] Last Admin: 03/15/18 10:29 Dose: 5 mg Pyridoxine HCl (Vitamin B6 50 Mg Tab) 50 mg PO DAILY [facility] Last Admin: 03/15/18 10:29 Dose: 50 mg Rifampin (Rifampin Cap) 600 mg PO DAILY [facility] PRN Reason: Protocol Last Admin: 03/15/18 10:28 Dose: 600 mg Rosuvastatin Calcium (Crestor) 5 mg PO HS [facility] Last Admin: 03/14/18 21:25 Dose: 5 mg Sodium Bicarbonate (Sodium Bicarbonate Tab) 650 mg PO TID [facility] Last Admin: 03/15/18 10:29 Dose: 650 mg Sodium Chloride (Sodium Chloride Tab) 1 gm PO BID [facility] Last Admin: 03/15/18 10:28 Dose: 1 gm Tacrolimus (Prograf Cap) 4 mg PO Q12H [facility] - Labs Labs: 03/14/18 07:14 03/15/18 07:15 PT 10.8 SECONDS (9.7-12.2) 02/28/18 11:22 INR 1.0 02/28/18 11:22 APTT 29 SECONDS (21-34) 02/28/18 11:22 - Constitutional Appears: Confused, Cachectic, Chronically Ill - Head Exam Head Exam: ATRAUMATIC, NORMAL INSPECTION - Eye Exam Eye Exam: EOMI, Normal appearance - Neck Exam Neck Exam: Normal Inspection. absent: Tenderness - Respiratory Exam Respiratory Exam: Clear to Ausculation Bilateral, NORMAL BREATHING PATTERN - Cardiovascular Exam Cardiovascular Exam: REGULAR RHYTHM, +S1 - GI/Abdominal Exam GI & Abdominal Exam: Soft. absent: Tenderness - Extremities Exam Extremities Exam: Normal Inspection, Pedal Edema, Tenderness - Neurological Exam Neurological Exam: Awake, CN II-XII Intact - Skin Skin Exam: Dry, Warm Assessment and Plan (1) Kidney transplant recipient Status: Acute (2) CKD (chronic kidney disease) stage 3, GFR 30-59 ml/min Status: Acute (3) Acute gout of left knee Status: Acute (4) Septic arthritis of knee, left Status: Acute (5) Cardiomyopathy Status: Acute (6) Atrial fibrillation Status: Chronic - Assessment and Plan (Free Text) Plan: incease tacro dose add colchicine - for rx gouty arthritis follow up chemistries await afb cultures
[2018-03-15 16:06] VITALS: BP 91/52; PULSE 84
--- NOTE | 2018-03-15 17:01 | CP.PCM.PN ---
Subjective - Date & Time of Evaluation Date of Evaluation: 03/15/18 Time of Evaluation: 11:30 - Subjective Subjective: [employer] NOTES seen by rep from [facility] clinic , cleared for discharge home and RN will see ladonna pt in home tmw Patient has picc line and needs 6 weeks of antibiotics as per pharmacy pt received 14 days of cuabcin CM contacted infusion company and they will start IV home infusion tmw and RX for antibiotics- cubicin and lab work to done weekly seen by Dr. johnson today, cleared for discharge from nephrology stand point an df/u out pt and continue sodium bicarb seen by Lindsey cleared for discharge from ortho stands point and f/u with Dr. Fan office in [address] Bradshaw, cleared fro discharge home today and f/u with Dr. julian office and Dr. johnson office in 1 week VNA service arranged by CM for PT, and wound care Objective - Vital Signs/Intake and Output Vital Signs (last 24 hours): Temp Pulse Resp BP Pulse Ox 98.3 F 84 20 91/52 L 100 03/15/18 15:50 03/15/18 15:50 03/15/18 15:50 03/15/18 15:50 03/15/18 15:50 Intake and Output: 03/15/18 03/15/18 06:59 18:59 Output Total 150 Balance -150 - Medications Medications: Current Medications Acetaminophen (Tylenol 325mg Tab) 650 mg PO Q6H PRN PRN Reason: Pain, moderate (4-7) Last Admin: 03/12/18 22:05 Dose: 650 mg Albuterol/Ipratropium (Duoneb 3 Mg/0.5 Mg (3 Ml) Ud) 3 ml INH RQ6 [facility] Last Admin: 03/15/18 14:00 Dose: Not Given Apixaban (Eliquis) 2.5 mg PO BID [facility] Last Admin: 03/15/18 10:29 Dose: 2.5 mg Calcium/Vitamin D (Oyster Shell Calcium/Vitamin D 500 Mg-200 Iu) 1 tab PO DAILY [facility] Last Admin: 03/15/18 10:28 Dose: 1 tab Colchicine (Colocrys) 0.6 mg PO DAILY [facility] Last Admin: 03/15/18 16:58 Dose: Not Given Dextrose (Glutose 15) 0 gm PO ONCE PRN; Protocol PRN Reason: Hypoglycemia Protocol Diltiazem HCl (Cardizem Cd) 240 mg PO DAILY [facility] Last Admin: 03/15/18 10:29 Dose: 240 mg Ergocalciferol (Drisdol 50,000 Intl Units Cap) 1 cap PO QWK [facility] Last Admin: 03/15/18 10:30 Dose: 1 cap Ethambutol HCl (Myambutol) 400 mg PO Q8H [facility] PRN Reason: Protocol Last Admin: 03/15/18 14:46 Dose: 400 mg Folic Acid (Folic Acid) 1 mg PO DAILY [facility] Last Admin: 03/15/18 10:29 Dose: 1 mg Glucagon (Glucagen Diagnostic Kit) 0 mg IM STAT PRN; Protocol PRN Reason: Hypoglycemia Protocol Home Med (Patient's Own Medication) 1 tab PO DAILY [facility] Last Admin: 03/15/18 10:29 Dose: 1 tab Daptomycin 310 mg/ Sodium (Chloride) 100 mls @ 100 mls/hr IV Q24H [facility] PRN Reason: Protocol Stop: 03/19/18 16:01 Last Admin: 03/15/18 16:58 Dose: Not Given Insulin Aspart (Novolog) 0 unit SC ACHS [facility] PRN Reason: Protocol Last Admin: 03/15/18 16:59 Dose: Not Given Isoniazid (Niazid) 300 mg PO DAILY [facility] PRN Reason: Protocol Last Admin: 03/15/18 10:29 Dose: 300 mg Levothyroxine Sodium (Synthroid) 175 mcg PO DAILY@0630 [facility] Last Admin: 03/15/18 06:10 Dose: 175 mcg Magnesium Oxide (Mag-Ox) 800 mg PO BID [facility] Last Admin: 03/15/18 10:29 Dose: 800 mg Montelukast Sodium (Singulair) 10 mg PO DAILY [facility] Last Admin: 03/15/18 10:29 Dose: 10 mg Pantoprazole Sodium (Protonix Ec Tab) 40 mg PO DAILY [facility] Last Admin: 03/15/18 10:29 Dose: 40 mg Potassium Phos/Sodium Phos (Neutra-Phos) 1 pkt PO BID [facility] Last Admin: 03/15/18 10:29 Dose: 1 pkt Prednisone (Prednisone Tab) 5 mg PO DAILY [facility] Last Admin: 03/15/18 10:29 Dose: 5 mg Pyridoxine HCl (Vitamin B6 50 Mg Tab) 50 mg PO DAILY [facility] Last Admin: 03/15/18 10:29 Dose: 50 mg Rifampin (Rifampin Cap) 600 mg PO DAILY [facility] PRN Reason: Protocol Last Admin: 03/15/18 10:28 Dose: 600 mg Rosuvastatin Calcium (Crestor) 5 mg PO HS [facility] Last Admin: 03/14/18 21:25 Dose: 5 mg Sodium Bicarbonate (Sodium Bicarbonate Tab) 650 mg PO TID [facility] Last Admin: 03/15/18 14:46 Dose: 650 mg Sodium Chloride (Sodium Chloride Tab) 1 gm PO BID [facility] Last Admin: 03/15/18 10:28 Dose: 1 gm Tacrolimus (Prograf Cap) 4 mg PO Q12H [facility] Last Admin: 03/15/18 16:57 Dose: 4 mg - Labs Labs: 03/14/18 07:14 03/15/18 07:15 PT 10.8 SECONDS (9.7-12.2) 02/28/18 11:22 INR 1.0 02/28/18 11:22 APTT 29 SECONDS (21-34) 02/28/18 11:22
--- NOTE | 2018-03-15 17:30 | PCM.HF ---
Heart Failure Core Measure - Heart Failure Ejection Fraction: 40 % or Greater HUSSEIN Inhibitor Prescribed: No Contraindication/Reason for not providing: ARF Beta-Miryam Prescribed: Metoprolol Succinate Angiotensin II Receptor Miryam Prescribed: No Contraindication/Reason for not providing: ARF AnticoagulationTherapy for Atrial Fibrillation/Atrialflutter: Yes Aldosterone Antagonist Prescribed: No Contraindication/Reason for not providing: ARF Hydralazine Nitrate Prescribed: Yes Implantable Cardioverter Defibrillator Therapy: No Contraindication/Reason for not providing: PT HAS AICD Cardiac Resynchronization Therapy Prescribed: No Contraindication/Reason for not providing: PT HAS AICD - Follow up Will be discharged to: Home Follow Up Date (must be within 7 days from discharge): 03/20/18 Follow Up Time: 09:00
--- NOTE | 2018-03-19 15:47 | CP.PCM.DIS ---
Provider - Provider Date of Admission: 02/22/18 16:33 Attending physician: Reji Bradshaw MD Primary care physician: Reji Bradshaw M.D. Consults: Dr Nash ( infectious disease) Dr Avery( Rheumatolody), Dr Morrissey( Nephrology ) Dr Booth ( Emery Wheel Worker), Dr Tovar ( Orthopedy).Dr Cristopher Velasquez ( Neurology). Time Spent in preparation of Discharge (in minutes): 45 Diagnosis - Discharge Diagnosis (1) Septic arthritis of knee, left Status: Acute (2) Severe sepsis Status: Acute (3) History of renal transplant Status: Chronic Priority: Medium (4) Hyponatremia Status: Acute Hospital Course - Lab Results Lab Results: Micro Results 03/04/18 14:07 Other: Please Indicate Mycobacterial Culture - Preliminary 02/25/18 Unknown Other: Please Indicate Body Fluid Culture - Final No growth. 03/02/18 12:28 Knee Left Fungal Culture - Preliminary NO FUNGUS GROWTH IN 1 WEEK. 03/06/18 11:10 Other: Please Indicate Mycobacterial Culture - Preliminary 03/06/18 08:50 Other: Please Indicate Mycobacterial Culture - Preliminary 03/09/18 17:15 Knee Left Fungal Culture - Preliminary 03/05/18 09:14 Other: Please Indicate Mycobacterial Culture - Preliminary 03/09/18 Unknown Knee - Left Gram Stain - Final 03/09/18 Unknown Knee - Left Wound Culture - Final No growth. 03/09/18 Unknown Knee - Left Anaerobic Culture - Final NO ANAEROBES ISOLATED. 03/02/18 Unknown Other: Please Indicate Mycobacterial Culture - Preliminary 02/28/18 20:48 Knee Left Gram Stain - Final 02/28/18 20:35 Other: Please Indicate Gram Stain - Final 02/28/18 20:35 Other: Please Indicate Body Fluid Culture - Final No growth. 02/28/18 20:35 Other: Please Indicate Gram Stain - Final 02/28/18 20:35 Other: Please Indicate Body Fluid Culture - Final No growth. 02/28/18 20:35 Other: Please Indicate Gram Stain - Final 02/28/18 20:35 Other: Please Indicate Body Fluid Culture - Final No growth. 02/26/18 19:30 Blood Blood Culture - Final NO GROWTH AFTER 5 DAYS 02/26/18 19:30 Blood Gram Stain - Final TEST NOT PERFORMED 02/26/18 19:00 Blood Blood Culture - Final NO GROWTH AFTER 5 DAYS 02/26/18 19:00 Blood Gram Stain - Final TEST NOT PERFORMED 02/28/18 20:35 Other: Please Indicate Gram Stain - Final 02/28/18 20:35 Other: Please Indicate Body Fluid Culture - Final No growth. 02/28/18 20:35 Other: Please Indicate Gram Stain - Final 02/28/18 20:35 Other: Please Indicate Body Fluid Culture - Final No growth. 02/28/18 20:35 Other: Please Indicate Gram Stain - Final 02/28/18 20:35 Other: Please Indicate Body Fluid Culture - Final No growth. 02/28/18 20:35 Other: Please Indicate Gram Stain - Final 02/28/18 20:35 Other: Please Indicate Body Fluid Culture - Final No growth. 02/28/18 20:35 Other: Please Indicate Gram Stain - Final 02/28/18 20:35 Other: Please Indicate Body Fluid Culture - Final No growth. 03/02/18 Unknown Knee Left Fungal Smear - Final 02/22/18 14:54 Blood Blood Culture - Final NO GROWTH AFTER 5 DAYS 02/22/18 14:54 Blood Gram Stain - Final TEST NOT PERFORMED 02/22/18 14:54 Blood Blood Culture - Final NO GROWTH AFTER 5 DAYS 02/22/18 14:54 Blood Gram Stain - Final TEST NOT PERFORMED 02/24/18 06:14 Naris MRSA Culture - Final MRSA NOT DETECTED 02/22/18 14:40 Knee - Left Gram Stain - Final 02/22/18 14:40 Knee - Left Wound Culture - Final No growth. 02/22/18 08:48 Urine,Catheterized Urine Culture - Final No Growth (<1,000 CFU/ML) 02/22/18 20:47 Nose MRSA Culture (Admit) - Final MRSA NOT DETECTED Most Recent Lab Values WBC 7.3 K/uL (4.8-10.8) 03/14/18 07:14 RBC 3.56 Mil/uL (4.40-5.90) L 03/14/18 07:14 Hgb 8.7 g/dL (12.0-18.0) L 03/14/18 07:14 Hct 27.3 % (35.0-51.0) L 03/14/18 07:14 MCV 76.8 fL (80.0-94.0) L 03/14/18 07:14 MCH 24.6 pg (27.0-31.0) L 03/14/18 07:14 MCHC 32.0 g/dL (33.0-37.0) L 03/14/18 07:14 RDW 19.2 % (11.5-14.5) H 03/14/18 07:14 Plt Count 420 K/uL (130-400) H 03/14/18 07:14 MPV 7.4 fL (7.2-11.7) 03/14/18 07:14 Neut % (Auto) 81.3 % (50.0-75.0) H 03/09/18 09:27 Lymph % (Auto) 7.6 % (20.0-40.0) L 03/09/18 09:27 Cook % (Auto) 6.6 % (0.0-10.0) 03/09/18 09:27 Eos % (Auto) 3.2 % (0.0-4.0) 03/09/18 09:27 Baso % (Auto) 1.3 % (0.0-2.0) 03/09/18 09:27 Neut # (Auto) 6.2 K/uL (1.8-7.0) 03/09/18 09:27 Lymph # (Auto) 0.6 K/uL (1.0-4.3) L 03/09/18 09:27 Cook # (Auto) 0.5 K/uL (0.0-0.8) 03/09/18 09:27 Eos # (Auto) 0.2 K/uL (0.0-0.7) 03/09/18 09:27 Baso # (Auto) 0.1 K/uL (0.0-0.2) 03/09/18 09:27 Neutrophils % (Manual) 86 % (50-75) H 03/09/18 09:27 Band Neutrophils % 1 % (0-2) 03/09/18 09:27 Lymphocytes % (Manual) 8 % (20-40) L 03/09/18 09:27 Monocytes % (Manual) 3 % (0-10) 03/09/18 09:27 Eosinophils % (Manual) 2 % (0-4) 03/09/18 09:27 Myelocytes % 1 % (0-0) H 02/28/18 07:06 Toxic Granulation Present 02/25/18 06:59 Platelet Estimate Normal (NORMAL) 03/09/18 09:27 Large Platelets Present 02/25/18 06:59 Polychromasia Slight 03/09/18 09:27 Hypochromasia (manual) Slight 03/09/18 09:27 Poikilocytosis (manual Slight 03/06/18 11:40 Anisocytosis (manual) Slight 03/09/18 09:27 Microcytosis (manual) Slight 03/09/18 09:27 Macrocytosis (manual) Slight 02/22/18 12:32 Target Cells Slight 03/09/18 09:27 Tear Drop Cells Slight 03/02/18 11:15 Ovalocytes Slight 03/09/18 09:27 [place] Cells Slight 03/03/18 07:15 Schistocytes Slight 02/25/18 06:59 ESR 110 mm/hr (0-15) H 03/01/18 07:44 PT 10.8 SECONDS (9.7-12.2) 02/28/18 11:22 INR 1.0 02/28/18 11:22 APTT 29 SECONDS (21-34) 02/28/18 11:22 Sodium 129 mmol/L (132-148) L 03/15/18 07:15 Potassium 4.4 mmol/L (3.6-5.2) 03/15/18 07:15 Chloride 96 mmol/L (98-107) L 03/15/18 07:15 Carbon Dioxide 23 mmol/L (22-30) 03/15/18 07:15 Anion Gap 15 (10-20) 03/15/18 07:15 BUN 12 mg/dL (9-20) 03/15/18 07:15 Creatinine 1.1 mg/dL (0.8-1.5) 03/15/18 07:15 Est GFR ( Amer) > 60 03/15/18 07:15 Est GFR (Non-Af Amer) > 60 03/15/18 07:15 POC Glucose (mg/dL) 96 mg/dL (65-110) 03/15/18 16:43 Random Glucose 64 mg/dL (75-110) L 03/15/18 07:15 Serum Osmolality 259 mosm/kg (272-300) L 03/08/18 14:37 Lactic Acid 1.6 mmol/L (0.7-2.1) 02/23/18 12:50 Uric Acid 3.9 mg/dL (3.5-8.5) 03/08/18 14:37 Calcium 8.2 mg/dl (8.6-10.4) L 03/15/18 07:15 Phosphorus 2.9 mg/dL (2.5-4.5) 03/14/18 07:14 Magnesium 1.4 mg/dL (1.6-2.3) L 03/14/18 07:14 Total Bilirubin 1.1 mg/dL (0.2-1.3) 03/15/18 07:15 AST 26 U/L (17-59) 03/15/18 07:15 ALT 23 U/L (21-72) 03/15/18 07:15 Alkaline Phosphatase 197 U/L (38-126) H 03/15/18 07:15 Ammonia < 9 umol/L (9-33) L 03/11/18 14:50 Total Creatine Kinase < 20 U/L (55-170) L 03/03/18 07:15 CK-MB (Mass) 1.01 ng/mL (0.0-3.38) 02/23/18 06:20 Troponin I 0.0850 ng/mL (0.00-0.120) 02/23/18 06:20 Total Protein 5.6 g/dL (6.3-8.3) L 03/15/18 07:15 Albumin 2.5 g/dL (3.5-5.0) L 03/15/18 07:15 Globulin 3.1 gm/dL (2.2-3.9) 03/15/18 07:15 Albumin/Globulin Ratio 0.8 (1.0-2.1) L 03/15/18 07:15 Procalcitonin 0.72 NG/ML (0.19-0.49) H 03/03/18 07:15 Urine Color Yellow (YELLOW) 02/22/18 12:45 Urine Clarity Clear (Clear) 02/22/18 12:45 Urine pH 7.0 (5.0-8.0) 02/22/18 12:45 Ur Specific [place] 1.013 (1.003-1.030) 02/22/18 12:45 Urine Protein 1+ mg/dL (NEGATIVE) H 02/22/18 12:45 Urine Glucose (UA) Normal mg/dL (Normal) 02/22/18 12:45 Urine Ketones Negative mg/dL (NEGATIVE) 02/22/18 12:45 Urine Blood Negative (NEGATIVE) 02/22/18 12:45 Urine Nitrate Negative (NEGATIVE) 02/22/18 12:45 Urine Bilirubin Negative (NEGATIVE) 02/22/18 12:45 Urine Urobilinogen Normal mg/dL (0.2-1.0) 02/22/18 12:45 Ur Leukocyte Esterase Neg Vicente/uL (Negative) 02/22/18 12:45 Urine WBC (Auto) 1 /hpf (0-5) 02/22/18 12:45 Urine RBC (Auto) < 1 /hpf (0-3) 02/22/18 12:45 Urine Osmolality 485 mosm/kg (300-1000) 03/09/18 14:14 Ur Random Sodium 169 mmol/L 03/09/18 14:14 Fluid Type Synovial fluid 03/09/18 15:26 Fluid Crystals Positive (NEGATIVE) H 02/22/18 14:50 Synovial WBC 65600.0 /mm3 (0.0-150.0) H 03/09/18 15:26 Synovial RBC 795415.0 /mm3 (0.0-0.0) H 03/09/18 15:26 Synovial Neutrophils 97.0 % (0-0) H 03/09/18 15:26 Synovial Lymphocytes 1.0 % (0-0) H 03/09/18 15:26 Synov Monos/Macrophage 2 % (0-0) H 03/09/18 15:26 Synovial Crystal Type Monosodium urate 02/22/18 14:50 Synovial Fluid Comment 03/09/18 15:26 Random Vancomycin 8.2 ug/mL 02/23/18 06:20 Tacrolimus (LC/MS/MS) 5.7 mcg/L (5.0-20.0) 03/14/18 07:14 IgG 863.1 mg/dL (700.0-1600.0) 02/23/18 06:20 IgA 268.2 mg/dL (70.0-400.0) 02/23/18 06:20 IgM 81.4 mg/dL (40.0-230.0) 02/23/18 06:20 IgE 223 kU/L (<ro=461) H 02/23/18 07:37 Rheumatoid Factor IgG <5 U (<=6) 03/02/18 11:15 Rheumatoid Factor IgA <5 U (<=6) 03/02/18 11:15 Rheumatoid Factor IgM 24 U (<=6) H 03/02/18 11:15 Complement C3 110.0 mg/dL (88.0-165.0) 02/23/18 06:20 Complement C4 42.6 mg/dL (14.0-44.0) 02/23/18 06:20 Tot Complement (CH50) >60 U/mL (31-60) H 02/23/18 07:37 Absolute Lymphs (Flow) 668 Cells/mcL (850-3900) L 02/23/18 07:37 % CD4 Cells 17 Percent (30-61) L 02/23/18 07:37 Absolute CD4 Count 115 Cells/mcL (490-1740) L 02/23/18 07:37 T-Help/Suppress Ratio 0.51 Ratio (0.86-5.00) L 02/23/18 07:37 % CD8 Cells 34 Percent (12-42) 02/23/18 07:37 Absolute CD8 Count 226 Cells/mcL (180-1170) 02/23/18 07:37 T-Lymph Analys Comment See note 02/23/18 07:37 TB Test (QFT) Nil 0.46 IU/mL 03/03/18 20:45 TB Test Mitogen - Nil 0.55 IU/mL 03/03/18 20:45 TB Test TB - Nil 0.01 IU/mL 03/03/18 20:45 TB Test (QFT) Negative (Negative) 03/03/18 20:45 Blood Type O POSITIVE 03/09/18 13:10 Antibody Screen Negative 03/09/18 13:10 - Hospital Course Hospital Course: 72 years old Mong[place]ian male was brought to the ED at [facility] on 2017 because of increasing pain and swelling of the left knee, increasing weakness, lethary, poor appetite. He recently finished his 3 weeks course of Cubicin IV for a strep bacteremia. In the ED, an arthrocentesis was performed under local anesthesia, but the patient became hypotensive. IVF and IV Vancomycin and Zosyn were given IV with improvement of the BP, and the patient was admitted to ICU for a septic shock. Left knee joint aspirate revealed 79, 000 WBC and Monosodium urate crystals. Dr Nash ( ID )restarted the patient on Cubicin 310 mg IVPB q d. The patient was also evaluated by Dr Tovar ( Ortho) who advised medical treatment for an acute gouty arthritis of the left knee, because previous left knee joint aspirates were aseptic. The patient is known to have a NIDDM, HPTN, chronic atrial fibrillation, gout, hypertrophic cardiomyopathy, s/p ICD insertion for ventricular tachycardia, hypothyroidism, s/p renal transplant on Prednisone and Tacrolimus, osteoarthritis, s/p .hemicolectomy for colon cancer, recent infective endocarditis, recent lower GI bleeding Because of persistent left knee swelling and pain, a left aspiration was performed by Dr Avery. Again, the aspirate culture yielded no bacterial growth. But, the patient became febrile, and on 03/01/2018, a PICC line was inserted by Dr. Garland Elizondo, and an arthroscopic drainage and partial synovectomy were performed by Dr Tovar. 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 Dr Nash started the patient on INH 300 mg PO qd, Rifampin 600 mg PO qd, and Ethambutol 400 mg PO q8H. Post-operatively, the patient became progressively more confused. A Ct scan of the head without contrast was essential normal. Dr Cristopher Velasquez( Neurologist) was called to evaluate the patient. He thought the patient mental status change was secondady to his complicated medical conditions , and suggested to discontinue Percocet, and delay a lumbar puncture. But the patient developed fever and increased pain and swelling of the left knee. He underwent a debridement and drainage of the left knee again on 03/09/[address] Tovar. Since then, the patient's mental status and appetite impwoved. His left pain and swelling also improved. He was evaluated by the [facility], and he was cleared and stable to be discharged home on 03/15/2018. He will continue all his home medications, including Cubicin IV, and IINH, Rifampin and Ethambutol. His Tacrolimus was increased to 4 mg PO BID by Dr Morrissey. He will have a FU with Dr Nash next week. with Dr Tovar in 10 days and the chest Clinics in 1 week. He will also receive home PT, home wound care. - Date & Time of H&P Date of H&P: 03/19/18 Time of H&P: 15:48 Discharge Exam - Head Exam Head Exam: ATRAUMATIC, NORMAL INSPECTION - Eye Exam Eye Exam: Normal appearance - ENT Exam ENT Exam: Normal Exam - Neck Exam Neck exam: Normal Inspection - Respiratory Exam Respiratory Exam: Clear to PA & Lateral, NORMAL BREATHING PATTERN - Cardiovascular Exam Cardiovascular Exam: REGULAR RHYTHM, Systolic Murmur - GI/Abdominal Exam GI & Abdominal Exam: Normal Bowel Sounds, Soft, Unremarkable - Rectal Exam Rectal Exam: Deferred - Exam Exam: NORMAL INSPECTION - Extremities Exam Additional comments: Mild swelling and tenderness of the left knee. - Back Exam Back exam: NORMAL INSPECTION - Neurological Exam Neurological exam: Alert, Oriented x3 - Psychiatric Exam Psychiatric exam: Anxious - Skin Skin Exam: Dry, Normal Color, Warm Discharge Plan - Discharge Medications Prescriptions: DAPTOmycin [Cubicin] 310 mg IV Q24H #28 vial Ethambutol [Myambutol] 400 mg PO Q8H #90 tab Isoniazid [Niazid] 300 mg PO DAILY #30 tab rifAMPin [Rifampin Cap] 600 mg PO DAILY #300 cap Sodium Bicarbonate Tab 650 mg PO TID #90 tab Pyridoxine [Vitamin B6 50 mg Tab] 50 mg PO DAILY #30 tab - Follow Up Plan Condition: FAIR Disposition: HOME/ ROUTINE Instructions: Septic Arthritis, Heart Failure, Adult (DC), Gout (DC), Chronic Kidney Disease (DC) Additional Instructions: Please f/u with Dr. iesha ortiz 1 week Please f/u with Dr. Cifuentes office in 10 days- call and make appointment Please f/u with Dr. Morrissey office in 1 week- call and make appointment Continue antibiotics for 4 weeks- Home infusion company will come and give your instructions PT/OT OOB ,WBAT patient to f/u approx [address] Tovar - call and make appointment knee immobilizer prn with PT VNA service for home detention PT/ot Referrals: Talon Tovar III, MD [Staff Provider] - Srikanth Morrissey MD [Staff Provider] - Yuan Avery MD [Staff Provider] - Reji Bradshaw MD [Staff Provider] - Clinical Quality Measures - CQM - Heart Failure Will be discharged to: Home Follow Up Date (must be within 7 days from discharge): 03/22/18 Follow Up Time: 09:00 - Date & Time of Discharge Summary Date of Discharge Summary: 03/19/18 Time of Discharge Summary: 16:35
== END 2018-03-15 17:06 | disposition home or self-care (01) | DRG 853 ==
LOC: C.ER 10:36 → C.9E 16:33 → C.9I 16:46 → C.5S 02-24 06:06 → C.6T 02-24 06:21 → C.5S 03-01 11:29
PROVIDERS: ADMIT Internal Medicine Cardiovascular Disease; ATTEND Internal Medicine Cardiovascular Disease
PROC: 0S9D3ZX Drainage of Left Knee Joint, Percutaneous Approach, Diagnostic (ICD-10-PCS; 2018-02-22)
PROC: 0SBD4ZZ Excision of Left Knee Joint, Percutaneous Endoscopic Approach (ICD-10-PCS; 2018-02-28)
PROC: 0S9D4ZX Drainage of Left Knee Joint, Percutaneous Endoscopic Approach, Diagnostic (ICD-10-PCS; 2018-02-28)
PROC: 0SBD4ZZ Excision of Left Knee Joint, Percutaneous Endoscopic Approach (ICD-10-PCS; principal; 2018-02-28 19:30)
PROC: 02HV33Z Insertion of Infusion Device into Superior Vena Cava, Percutaneous Approach (ICD-10-PCS; 2018-03-01)
PROC: 01NH0ZZ Release Peroneal Nerve, Open Approach (ICD-10-PCS; 2018-03-09)
PROC: 01QH0ZZ Repair Peroneal Nerve, Open Approach (ICD-10-PCS; 2018-03-09)
PROC: 0SBD4ZZ Excision of Left Knee Joint, Percutaneous Endoscopic Approach (ICD-10-PCS; 2018-03-09)
PROC: 0SBD4ZZ Excision of Left Knee Joint, Percutaneous Endoscopic Approach (ICD-10-PCS; 2018-03-09)
PROC: 0S9D0ZX Drainage of Left Knee Joint, Open Approach, Diagnostic (ICD-10-PCS; 2018-03-09)
DX: A41.9 Sepsis, unspecified organism (principal); G93.41 Metabolic encephalopathy; R65.21 Severe sepsis with septic shock; M00.9 Pyogenic arthritis, unspecified; E22.2 Syndrome of inappropriate secretion of antidiuretic hormone; Z94.0 Kidney transplant status; I42.2 Other hypertrophic cardiomyopathy; J47.1 Bronchiectasis with (acute) exacerbation; I47.2 Ventricular tachycardia; A18.0 Tuberculosis of bones and joints; I13.0 Hypertensive heart and chronic kidney disease with heart failure and stage 1 through stage 4 chronic kidney disease, or unspecified chronic kidney disease; M10.9 Gout, unspecified; E11.22 Type 2 diabetes mellitus with diabetic chronic kidney disease; E11.40 Type 2 diabetes mellitus with diabetic neuropathy, unspecified; E78.00 Pure hypercholesterolemia, unspecified; G47.30 Sleep apnea, unspecified; I25.10 Atherosclerotic heart disease of native coronary artery without angina pectoris; I48.2 Chronic atrial fibrillation; I50.9 Heart failure, unspecified; J84.10 Pulmonary fibrosis, unspecified; M17.12 Unilateral primary osteoarthritis, left knee; M65.9 Synovitis and tenosynovitis, unspecified; Z66 Do not resuscitate; Z79.01 Long term (current) use of anticoagulants; Z85.038 Personal history of other malignant neoplasm of large intestine; Z95.0 Presence of cardiac pacemaker; M11.262 Other chondrocalcinosis, left knee; M23.242 Derangement of anterior horn of lateral meniscus due to old tear or injury, left knee; M23.212 Derangement of anterior horn of medial meniscus due to old tear or injury, left knee; G57.82 Other specified mononeuropathies of left lower limb; M71.22 Synovial cyst of popliteal space [Baker], left knee; N18.3 Chronic kidney disease, stage 3 (moderate)

== ENCOUNTER 2018-05-08 11:32 | Inpatient (IN) | payer MEDICARE, BC ==
[2018-05-08 11:32] VITALS: BMI 26.3
[2018-05-08] MEDS ORDERED: Sodium Chloride 0.9% 1,000 ML IV ONE ×4 (12:30→20:16)
[2018-05-08] MEDS ORDERED: Sodium Chloride 0.9% 500 ML IV STA (12:30)
--- NOTE | 2018-05-08 12:41 | C.PDOC ---
History Of Present Illness The patient is a 72 year old male brought in by family for evaluation. As per family, patient underwent a kidney transplant around 15 years ago and still has a shunt in his right upper extremity. Patient has also had left knee pain for a very long time, for which he underwent a procedure by Dr. Tovar but the area never fully healed. Patient was also diagnosed with bone TB. He was placed on medication and antibiotics for superinfection. Patient was receiving Vancomycin and Zosyn via PICC line on left side. He was taken off Vancomycin because the level was very high. Patient has been taking Zosyn, and his last dose will be on 05/12. As per family, patient's bilateral arms have appeared to be increasingly red and swollen. Patient has some scaling to the skin of his right arm. Patient's symptoms worsened today; his visiting nurse advised family to present to the ED for further evaluation. Family also states that patient appears confused and less active than usual today. As per infectious disease nurse, patient has three sputum negative for TB, and does not need to be in isolation room. History obtained via patient's family. PMD: Dr. Kohler Hands Parter: Dr. Morrissey Infectious Disease: Dr. Nash Shipping Clerk: Dr. Bradshaw Orthopedist: Dr. Tovar Time Seen by Provider: 05/08/18 12:19 Chief Complaint (Nursing): Abnormal Skin Integrity History Per: Patient, Family History/Exam Limitations: no limitations Onset/Duration Of Symptoms: Days Current Symptoms Are (Timing): Worse Additional History Per: Patient, Family Past Medical History Reviewed: Historical Data, Nursing Documentation, Vital Signs Vital Signs: Last Vital Signs Temp 89.3 F L 05/08/18 11:51 Pulse 72 05/08/18 11:51 Resp 24 05/08/18 11:51 BP 101/68 05/08/18 11:51 Pulse Ox 100 05/08/18 11:51 - Medical History PMH: Anemia, Arthritis (Gout), Asthma, Atrial Fibrillation, Bronchitis, CAD (CARDIOMYOPATHY), Cardia Arrhythmia, CHF, COPD (Emphysema,), Diabetes (NIDDM), Emphysema, Gastritis, Gastrointestinal Ulcer, HTN, Hypercholesterolemia, Hypothyroidism, Pneumonia, End Stage Renal Disease, Chronic Kidney Disease (s/p renal transplant), Sleep Apnea Surgical History: No Surg Hx Comment Only: Pacemaker (Patient has a ISSH with ventricular tachycardia and an ICD.) - [facility] Procedures C.A.T. SCAN OF THORAX (02/06/13) CLOSED [PERCUTANEOUS] [NEEDLE] BIOPSY OF LUNG (02/06/13) COLONOSCOPY (08/17/06) DRAINAGE OF LEFT KNEE JOINT, OPEN APPROACH, DIAGNOSTIC (02/22/18) DRAINAGE OF LEFT KNEE JOINT, PERC ENDO APPROACH, DIAGN (02/22/18) DRAINAGE OF LEFT KNEE JOINT, PERCUTANEOUS APPROACH, DIAGN (02/22/18) ENDOSC POLYPECTOMY OF LG INTEST (01/01/15) ESOPHAGOGASTRODUODENOSCOPY [EGD] W/CLOSED BIOPSY (01/01/15) EXCISION OF LEFT KNEE JOINT, PERC ENDO APPROACH (02/22/18) INSERTION OF INFUSION DEV INTO SUP VENA CAVA, PERC APPROACH (02/22/18) NAIL REMOVAL (12/31/13) PACKED CELL TRANSFUSION (01/01/15) RELEASE PERONEAL NERVE, OPEN APPROACH (02/22/18) REPAIR PERONEAL NERVE, OPEN APPROACH (02/22/18) TRANSFUSE NONAUT RED BLOOD CELLS IN PERIPH VEIN, PERC (03/24/18) ULTRASONOGRAPHY OF HEART WITH AORTA, TRANSESOPHAGEAL (03/24/18) Family History: States: Unknown Family Hx - Social History Hx Tobacco Use: No Hx Alcohol Use: No Hx Substance Use: No - Immunization History Hx Tetanus Toxoid Vaccination: Yes Hx Influenza Vaccination: Yes Hx Pneumococcal Vaccination: Yes Review Of Systems Skin: Positive for: Other (redness to upper extremities ) Neurological: Positive for: Confusion Physical Exam - Physical Exam Appears: Non-toxic, No Acute Distress, Other (lethargic ) Skin: Normal Color, Warm, Dry, Other (erythema to bilateral arms (right>left) and neck region. erythematous scaly skin to right arm ) Head: Atraumatic, Normacephalic Eye(s): bilateral: Normal Inspection Oral Mucosa: Moist Neck: Supple Chest: Symmetrical, No Deformity, No Tenderness, Other (pacemaker) Cardiovascular: Rhythm Regular, No Murmur Respiratory: Normal Breath Sounds, No Rales, No Rhonchi, No Wheezing Extremity: Normal ROM (bilateral upper extremities ), Capillary Refill (less than 2 seconds ) Neurological/Psych: Other (confused, answering questions ) ED Course And Treatment - Laboratory Results Result Diagrams: 05/08/18 12:44 05/08/18 12:44 O2 Sat by Pulse Oximetry: 100 (on RA) Pulse Ox Interpretation: Normal - Other Rad CXR X-Ray: Viewed By Me, Read By Radiologist Interpretation: Date of service: 05/08/2018. PROCEDURE: CHEST RADIOGRAPH, 1 VIEW. HISTORY: confirm picc placement. COMPARISON: Chest radiograph dated 03/25/2018. FINDINGS: LUNGS: Stable chronic prominence of the bilateral interstitial markings. No focal consolidation. PLEURA: No pneumothorax or pleural fluid seen. CARDIOVASCULAR: Left subclavian AICD/pacemaker redemonstrated. Aortic atherosclerotic calcifications. Cardiomediastinal silhouette stably enlarged. OSSEOUS STRUCTURES: Unchanged. VISUALIZED UPPER ABDOMEN: Right upper quadrant surgical clips. OTHER FINDINGS: Right upper extremity PICC line catheter terminating in the subclavian vein. IMPRESSION: No active disease. Medical Decision Making Medical Decision Making: Progress: Patient found to be hypothermic with rectal temperature of 88.9. Bear hugger given. Bloodwork, urinalysis, CXR, EKG ordered and reviewed. Secondary to patient's kidney problems, his hydration with IV Fluids will be con servative. Case discussed with Dr. Nash. Dr. Nash states patient's sputum was negative but his culture was positive for TB and requests patient to be placed in isolation. Also requests and to add Vancomycin and Azactam to orders. Requests to order cortisol level and consult ICU. Case discussed with Dr. Morrissey, who states to give patient 100/hour hydration. Case discussed with Dr. Bradshaw, who accepts the patient under his service. Azactam IVP, Solu-Medrol IVP, Vancomycin IV, and IV Fluids ordered. Case discussed with Dr. Cobb (ICU), who requests to order TSH level. Dr. Cobb states he will evaluate the patient at bedside. Patient will be admitted to ICU. Disposition - Disposition Disposition: HOSPITALIZED Disposition Time: 15:33 Condition: SERIOUS - Clinical Impression Clinical Impression: Sepsis, Hypothermia - PA / ADMISSIONS ADVISOR / Resident Statement MD/DO has reviewed & agrees with the documentation as recorded. - Scribe Statement The provider has reviewed the documentation as recorded by the Scribe (Belem Barnett) All medical record entries made by the Scribe were at my direction and personally dictated by me. I have reviewed the chart and agree that the record accurately reflects my personal performance of the history, physical exam, medical decision making, and the department course for this patient. I have also personally directed, reviewed, and agree with the discharge instructions and disposition. Decision To Admit - Pt Status Changed To: Hospital Disposition Of: Inpatient - Admit Certification Admit to Inpatient:: After my assessment, the patient will require hospitalization for at least two midnights. This is because of the severity of symptoms shown, intensity of services needed, and/or the medical risk in this patient being treated as an outpatient. - InPatient: Physician Admission Certification: I certify that this patient requires 2 or more midnights of care for the following reason:: septic patient, needs ICU - . Bed Request Type: ICU Admitting Physician: Reji Bradshaw Patient Diagnosis: Sepsis, Hypothermia
[2018-05-08] MEDS ORDERED: Sodium Chloride 0.9% 1,000 ML ONE (12:50)
[2018-05-08] MEDS ORDERED: Sodium Chloride 0.9% 500 ML IV ONE (12:50)
[2018-05-08 12:51] LABS: VENOUS BLOOD GAS BASE EXCESS -4.4 mmol/L (0.0-2.0); VENOUS BLOOD GAS PCO2 39 mmHg (40-60); VENOUS BLOOD GAS PO2 44 mm/Hg (30-55); VENOUS BLOOD PH 7.34 (7.32-7.43)
[2018-05-08 12:53] LABS: BASO % 0.6 % (0.0-2.0); EOS # 1.1 K/uL (0.0-0.7); EOS % 18.4 % (0.0-4.0); LYMPH # 0.8 K/uL (1.0-4.3); LYMPH % 12.4 % (20.0-40.0); MEAN CORPUSCULAR HEMOGLOBIN 29.8 pg (27.0-31.0); MEAN CORPUSCULAR HGB CONC 33.1 g/dL (33.0-37.0); MEAN PLATELET VOLUME 7.3 fL (7.2-11.7); MONO # 0.3 K/uL (0.0-0.8); MONO % 4.6 % (0.0-10.0); NEUT # 3.9 K/uL (1.8-7.0); NRBC % 0.2 % (0.0-2.0); RBC 3.69 Mil/uL (4.40-5.90); RED CELL DISTRIBUTION WIDTH 24.6 % (11.5-14.5); WHITE BLOOD COUNT 6.1 K/uL (4.8-10.8)
[2018-05-08 12:57] LABS: MEAN CELL VOLUME 90.1 fL (80.0-94.0)
[2018-05-08 13:05] LABS: ALB/GLOB RATIO 0.8 (1.0-2.1); ALBUMIN 2.3 g/dL (3.5-5.0); ALT/SGPT 15 U/L (21-72); AMYLASE < 30 U/L (30-110); AST/SGOT 26 U/L (17-59); BLOOD UREA NITROGEN 23 mg/dL (9-20); CALCIUM 8.2 mg/dl (8.6-10.4); GFR NON-AFRICAN AMERICAN 30
[2018-05-08 13:08] LABS: LIPASE < 10 U/L (23-300)
--- NOTE | 2018-05-08 13:08 | RAD ---
Date of service: 05/08/2018 PROCEDURE: CHEST RADIOGRAPH, 1 VIEW HISTORY: confirm picc placement COMPARISON: Chest radiograph dated 03/25/2018. FINDINGS: LUNGS: Stable chronic prominence of the bilateral interstitial markings. No focal consolidation. PLEURA: No pneumothorax or pleural fluid seen. CARDIOVASCULAR: Left subclavian AICD/pacemaker redemonstrated. Aortic atherosclerotic calcifications. Cardiomediastinal silhouette stably enlarged OSSEOUS STRUCTURES: Unchanged. VISUALIZED UPPER ABDOMEN: Right upper quadrant surgical clips. OTHER FINDINGS: Right upper extremity PICC line catheter terminating in the subclavian vein. IMPRESSION: No active disease.
[2018-05-08 13:09] LABS: INR 1.9; PROTHROMBIN TIME 20.6 SECONDS (9.7-12.2)
[2018-05-08 13:16] LABS: CK-MB 2.48 ng/mL (0.0-3.38)
[2018-05-08 14:02] LABS: URINE AMORPHOUS SEDIMENT RARE /ul (<OCC); URINE BACTERIA RARE (<OCC); URINE BILIRUBIN NEGATIVE (NEGATIVE); URINE BLOOD 1+ (NEGATIVE); URINE CLARITY Clear (Clear); URINE COLOR Amber (YELLOW); URINE GLUCOSE (UA) NORMAL (Normal); URINE HYALINE CAST 0-2 /lpf (0-2); URINE LEUKOCYTE ESTERASE NEG Leu/uL (Negative); URINE PROTEIN NEGATIVE (NEGATIVE); URINE UROBILINOGEN NORMAL mg/dL (0.2-1.0)
[2018-05-08] MEDS ORDERED: MethylPREDNISolone 40 mg Vial IVP STA (14:30)
[2018-05-08] MEDS ORDERED: Aztreonam 1 GM in Sodium Chloride 0.9% 100 ML IVPB STA (14:38)
[2018-05-08] MEDS ORDERED: Vancomycin 1 GM 1 GM/250 ML BAG IV SCH (14:45)
[2018-05-08] MEDS ORDERED: MethylPREDNISolone 40 mg Vial ONE (14:53)
[2018-05-08] MEDS ORDERED: Vancomycin 1 GM 1 GM/250 ML BAG IVPB ONE (14:53)
[2018-05-08] MEDS ORDERED: Magnesium Sulfate 1 gm in D5W 1 GM/100 ML BAG IV STA (15:26)
[2018-05-08] MEDS ORDERED: Magnesium Sulfate 1 gm in D5W 1 GM/100 ML BAG IVPB ONE (16:00)
--- NOTE | 2018-05-08 16:27 | CP.PCM.CON ---
<Natasha Khan - Last Filed: 05/08/18 18:39> History of Present Illness - History of Present Illness History of Present Illness: Patient is a 72 yo male with multiple medical issues, including TB of the knee and kidney transplant who presents to the ED with slurred speech. Patient was found to be hypothermic in the ED. Patient's speech is low and unintelligible. History is obtained from family (mother, sister, son) and medical records. Patient lives with family (mother). Family states that patient was in his normal state of health until today. They do note a nonproductive cough that began about 1 week ago. Additionally, patient has been receiving IV abx via PICC line at home for bacteremia. Patient's family states that his arms have been red, swollen, with slouhging skin for awhile- he was scheduled to see outpatient derm this week. They deny fever, change in appetite, change in mental status, change in bowel/bladder habits. At baseline, patient is A&O and able to have a con versation. He occasionally uses a walker to ambulate. PMH: R kidney transplant TB- L knee Hypertrophic cardiomyopathy Vtach- s/p pacemaker (May 2017) Afib COPD T2DM Hypothyroidism Anemia Colon CA s/p R hemicolectomy OA h/o gout h/o infective endocarditis h/o Strep bacteremia h/o C. diff Meds: Rifampin 600 mg PO daily Isoniazid 300 mg PO daily Vit B6 50 mg PO daily Ethambutol 99772 mg PO TTS Zosyn 2.25 g IV TID Tacrolimus 5 mg PO BID Synthroid 200 mcg PO daily Eliquis 2.4 mg PO BID Diltiazem ER 240 mg PO daily Hydralazine 25 mg PO TID Isosorbide mononitrate 20 mg PO TID Pitavastatin calcium QHS Glipizide 2.5 mg PO daily Protonix 40 mg PO daily Klonopin 0.5 mg PO daily Tramadol 50 mg PO TID PRN Albuterol sulfate 1 puff daily Singulair 10 mg PO daily Febuxostat 80 mg PO daily Sodium Bicarb 650 mg PO TID Neutra-phos 1 pkt BID Mg Ox 500 mg PO TID Folic acid 1 mg PO daily Vit D2 1.25 mg PO QWK Vit D3 2000 mg PO daily All: metoprolol (rash) FH: no h/o TB SH: lives with mother former smoker denies tobacco, alcohol, illicit drug use PMD: Dr. Kohler, Dr. Bradshaw Review of Systems - Review of Systems Systems not reviewed;Unavailable: Altered Mental Status Past Patient History - Infectious Disease Hx of Infectious Diseases: C.diff - Tetanus Immunizations Tetanus Immunization: Unknown - Past Medical History & Family History Past Medical History?: Yes - Past Social History Smoking Status: Former Smoker Chewing Tobacco Use: No Cigar Use: No Alcohol: None Drugs: Denies Home Situation {Lives}: With Family (mother) - CARDIAC Hx Atrial Fibrillation: Yes Hx Cardia Arrhythmia: Yes Hx Congestive Heart Failure: Yes Hx Hypercholesterolemia: Yes Hx Hypertension: Yes Hx Pacemaker: (Patient has a ISSH with ventricular tachycardia and an ICD.) - PULMONARY Hx Asthma: Yes Hx Bronchitis: Yes Hx Chronic Obstructive Pulmonary Disease (COPD): Yes (Emphysema,) Hx Emphysema: Yes Hx Pneumonia: Yes Hx Sleep Apnea: Yes - NEUROLOGICAL Hx Neurological Disorder: Yes - HEENT Hx HEENT Problems: Yes Hx Cataracts: Yes (bilat iol,had surgery) - RENAL Hx Chronic Kidney Disease: Yes (s/p renal transplant) - ENDOCRINE/METABOLIC Hx Hypothyroidism: Yes - HEMATOLOGICAL/ONCOLOGICAL Hx Anemia: Yes - INTEGUMENTARY Hx Dermatological Problems: Yes (sun sentivity) Hx Eczema: Yes - MUSCULOSKELETAL/RHEUMATOLOGICAL Hx Arthritis: Yes (Gout) - GASTROINTESTINAL Hx Gastritis: Yes - GENITOURINARY/GYNECOLOGICAL Hx Genitourinary Disorders: No - PSYCHIATRIC Hx Substance Use: No - SURGICAL HISTORY Hx Surgeries: Yes (Hemicolectomy for colon cancer) Hx Angiogram: Yes (ICD insertion for ventricular tachycardia.) Hx Cataract Extraction: Yes Hx Cardiac Catheterization: Yes Hx Kidney Transplant: Yes () Other/Comment: THYROID SURGERY-2004. Hx of perforated bowel corrected with surgery. AICD - ANESTHESIA Hx Anesthesia: Yes Hx Anesthesia Reactions: No Hx Malignant Hyperthermia: No Meds Allergies/Adverse Reactions: Allergies Allergy/AdvReac Type Severity Reaction Status Date / Time metoprolol Allergy Intermediate ITCHING Verified 02/01/18 11:29 - Medications Medications: Current Medications Apixaban (Eliquis) 2.5 mg PO BID FAHEEM Ethambutol HCl (Myambutol) 1,200 mg PO TTS FAHEEM; Protocol Folic Acid (Folic Acid) 1 mg PO DAILY FAHEEM Vancomycin HCl (Vancomycin 1gm In Normal Saline Addvantage) 1 gm in 250 mls @ 166.667 mls/hr IV STAT FAHEEM; Protocol Sodium Chloride (Sodium Chloride 0.9%) 1,000 mls @ 125 mls/hr IV .Q8H ONE Stop: 05/08/18 20:29 Aztreonam 1 gm/ Sodium (Chloride) 100 mls @ 200 mls/hr IVPB Q8H FAHEEM; Protocol Isoniazid (Niazid) 300 mg PO DAILY FAHE[facility]; Protocol Levothyroxine Sodium (Synthroid) 200 mcg PO DAILY@0630 [facility] Levothyroxine Sodium (Levothyroxine) 100 mcg IVP ONCE ONE Stop: 05/08/18 15:48 Levothyroxine Sodium (Synthroid) 100 mcg IVP DAILY [facility] Pantoprazole Sodium (Protonix Ec Tab) 40 mg PO DAILY [facility] Pyridoxine HCl (Vitamin B6 50 Mg Tab) 50 mg PO DAILY [facility] Rifampin (Rifampin Cap) 600 mg PO DAILY [facility]HE[facility]; Protocol Sodium Bicarbonate (Sodium Bicarbonate Tab) 650 mg PO TID FAHEEM Tacrolimus (Prograf) 5 mg PO BID FAHE[facility] Physical Exam - Constitutional Appears: No Acute Distress, Confused, Chronically Ill - Head Exam Head Exam: ATRAUMATIC, NORMAL INSPECTION - Eye Exam Eye Exam: EOMI, Normal appearance, PERRL - ENT Exam ENT Exam: Mucous Membranes Dry - Neck Exam Neck exam: Positive for: Normal Inspection - Respiratory Exam Respiratory Exam: Decreased Breath Sounds, Rhonchi, NORMAL BREATHING PATTERN. absent: Accessory Muscle Use, Respiratory Distress - Cardiovascular Exam Cardiovascular Exam: REGULAR RHYTHM, +S1, +S2 - GI/Abdominal Exam GI & Abdominal Exam: Soft. absent: Tenderness - Rectal Exam Rectal Exam: Deferred - Extremities Exam Additional comments: b/l UEs erythema, skin sloughing RUE PICC line - Neurological Exam Neurological exam: Alert, Altered - Skin Additional comments: cold to touch Results - Vital Signs Recent Vital Signs: Last Vital Signs Temp 88.9 F L 05/08/18 13:49 Pulse 86 05/08/18 13:53 Resp 15 05/08/18 13:53 BP 88/52 L 05/08/18 13:53 Pulse Ox 100 05/08/18 15:41 - Labs Result Diagrams: 05/08/18 12:44 05/08/18 12:44 Labs: Laboratory Results - last 24 hr 05/08/18 05/08/18 05/08/18 12:44 12:44 12:44 WBC 6.1 RBC 3.69 L Hgb 11.0 L Hct 33.2 L MCV 90.1 D MCH 29.8 MCHC 33.1 RDW 24.6 H Plt Count 158 D MPV 7.3 Neut % (Auto) 64.0 Lymph % (Auto) 12.4 L [place] % (Auto) 4.6 Eos % (Auto) 18.4 H Baso % (Auto) 0.6 Neut # (Auto) 3.9 Lymph # (Auto) 0.8 L [place] # (Auto) 0.3 Eos # (Auto) 1.1 H Baso # (Auto) 0.0 PT 20.6 H INR 1.9 APTT 59 H pO2 VBG pH VBG pCO2 VBG HCO3 VBG Total CO2 VBG O2 Sat (Calc) VBG Base Excess VBG Potassium Glucose Lactate Sodium 132 Potassium 4.1 Chloride 100 Carbon Dioxide 20 L Anion Gap 16 BUN 23 H Creatinine 2.2 H Est GFR ( Amer) 36 Est GFR (Non-Af Amer) 30 Random Glucose 47 L Lactic Acid Calcium 8.2 L Phosphorus 6.2 H Magnesium 1.1 L Total Bilirubin 0.4 AST 26 ALT 15 L D Alkaline Phosphatase 67 Total Creatine Kinase < 20 L CK-MB (Mass) 2.48 Troponin I 0.0740 Total Protein 5.2 L Albumin 2.3 L Globulin 2.8 Albumin/Globulin Ratio 0.8 L Amylase < 30 L Lipase < 10 L TSH 3rd Generation 42.60 H Plasma Cortisol PM Venous Blood Potassium Urine Color Urine Clarity Urine pH Ur Specific [place] Urine Protein Urine Glucose (UA) Urine Ketones Urine Blood Urine Nitrate Urine Bilirubin Urine Urobilinogen Ur Leukocyte Esterase Urine WBC (Auto) Urine RBC (Auto) Amorphous Sediment Urine Bacteria Hyaline Casts 05/08/18 05/08/18 05/08/18 12:48 13:35 14:58 WBC RBC Hgb Hct MCV MCH MCHC RDW Plt Count MPV Neut % (Auto) Lymph % (Auto) [place] % (Auto) Eos % (Auto) Baso % (Auto) Neut # (Auto) Lymph # (Auto) [place] # (Auto) Eos # (Auto) Baso # (Auto) PT INR APTT pO2 44 VBG pH 7.34 VBG pCO2 39 L VBG HCO3 20.9 VBG Total CO2 22.2 VBG O2 Sat (Calc) 82.0 H VBG Base Excess -4.4 L VBG Potassium 3.8 Glucose 52 L Lactate 1.9 Sodium 131.0 L Potassium Chloride 103.0 Carbon Dioxide Anion Gap BUN Creatinine Est GFR ( Amer) Est GFR (Non-Af Amer) Random Glucose Lactic Acid Calcium Phosphorus Magnesium Total Bilirubin AST ALT Alkaline Phosphatase Total Creatine Kinase CK-MB (Mass) Troponin I Total Protein Albumin Globulin Albumin/Globulin Ratio Amylase Lipase TSH 3rd Generation Plasma Cortisol PM 2.00 Venous Blood Potassium 3.8 Urine Color Jing Urine Clarity Clear Urine pH 5.0 Ur Specific [place] 1.019 Urine Protein Negative Urine Glucose (UA) Normal Urine Ketones Negative Urine Blood 1+ H Urine Nitrate Negative Urine Bilirubin Negative Urine Urobilinogen Normal Ur Leukocyte Esterase Neg Urine WBC (Auto) 3 Urine RBC (Auto) 8 H Amorphous Sediment Rare H Urine Bacteria Rare Hyaline Casts 0-2 05/08/18 15:18 WBC RBC Hgb Hct MCV MCH MCHC RDW Plt Count MPV Neut % (Auto) Lymph % (Auto) [place] % (Auto) Eos % (Auto) Baso % (Auto) Neut # (Auto) Lymph # (Auto) [place] # (Auto) Eos # (Auto) Baso # (Auto) PT INR APTT pO2 VBG pH VBG pCO2 VBG HCO3 VBG Total CO2 VBG O2 Sat (Calc) VBG Base Excess VBG Potassium Glucose Lactate Sodium Potassium Chloride Carbon Dioxide Anion Gap BUN Creatinine Est GFR ( Amer) Est GFR (Non-Af Amer) Random Glucose Lactic Acid 1.7 Calcium Phosphorus Magnesium Total Bilirubin AST ALT Alkaline Phosphatase Total Creatine Kinase CK-MB (Mass) Troponin I Total Protein Albumin Globulin Albumin/Globulin Ratio Amylase Lipase TSH 3rd Generation Plasma Cortisol PM Venous Blood Potassium Urine Color Urine Clarity Urine pH Ur Specific [place] Urine Protein Urine Glucose (UA) Urine Ketones Urine Blood Urine Nitrate Urine Bilirubin Urine Urobilinogen Ur Leukocyte Esterase Urine WBC (Auto) Urine RBC (Auto) Amorphous Sediment Urine Bacteria Hyaline Casts Assessment & Plan - Assessment and Plan (Free Text) Assessment: Patient is a 72 yo male with multiple medical issues who presented with slurred speech and edematous upper extremities. patient was found to be hypothermic. 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 He is currently on isolation pending ID evaluation. Plan: Neuro: - Neuro checks CV: - Monitor vitals - Echo pending - IVF - Continue Eliquis 2.5 mg PO BID Pulm: - CXR: no active disease - Maintain spO2>92%- supplemental O2 PRN - Duoneb Q8H GI: - Clear liquids- pending [employer] eval - Protonix 40 mg PO daily Renal: - s/p R kidney transplant - CMP daily - Replete electrolytes PRN - Continue Tacrolimus 5 mg PO BID - Nephrology consulted (Ghanshyam) Endo: - Maintain euglycemia - D10 @ 30 mL/hr - Hypoglycemia protocol - Accuchecks Q6H - TSH 42.6 - Synthroid 200 mcg PO daily - Synthroid 100 mcg IV daily - Endocrinology consulted (Acosta) Heme: - Anemic at BL - Repeat CBC in AM - Monitor H&H - Folic acid 1 mg PO daily ID: - Temp 88.6 on admission - WBC, lactate wnl - Active warming protocol - Warm IVF - Blood, urine Cx pending - Continue Rifampin 600 mg PO daily - Continue Isoniazid 300 mg PO daily - Continue Ethambutol 1200 mg PO TTS - Continue vit B6 50 mg PO daily - Aztreonam 1 g IV Q8H - ID consulted (Charity) PPx: VTE: Eliquis 2.5 mg PO BID GI: PTX 40 mg PO daily IVF: NS @ 75 mL/hr Code status: DNR/DNI (POLST) Case discussed with attending, Dr. Cobb. PGY-1 Natasha Khan D.O. <Ajay Cobb - Last Filed: 05/15/18 13:46> Meds - Medications Medications: Current Medications Albumin Human (Albumin Human 25% (12.5 Gm/50 Ml)) 37.5 gm IV DAILY PRN PRN Reason: PER HD IF SBP IS LESS THAN 90 Albuterol/Ipratropium (Duoneb 3 Mg/0.5 Mg (3 Ml) Ud) 3 ml INH RQ4 FAHEEM Last Admin: 05/15/18 11:48 Dose: 3 ml Calcium Acetate (Phoslo) 1,334 mg PO TIDCC FAHEEM Last Admin: 05/15/18 13:02 Dose: 1,334 mg Collagenase (Santyl) 0 gm TOP DAILY FAHEEM Last Admin: 05/15/18 10:41 Dose: 1 oin Cyanocobalamin (Vitamin B12 1000 Mcg Tab) 1,000 mcg PO DAILY [facility] Last Admin: 05/15/18 10:35 Dose: 1,000 mcg Dextrose (Dextrose 50% Inj) 0 ml IV STAT PRN; Protocol PRN Reason: Hypoglycemia Protocol Dextrose (Glutose 15) 0 gm PO ONCE PRN; Protocol PRN Reason: Hypoglycemia Protocol Diltiazem HCl (Cardizem Cd) 180 mg PO DAILY [facility] Last Admin: 05/15/18 10:31 Dose: 180 mg Folic Acid (Folic Acid) 1 mg PO DAILY [facility] Last Admin: 05/15/18 10:31 Dose: 1 mg Glucagon (Glucagen Diagnostic Kit) 0 mg IM STAT PRN; Protocol PRN Reason: Hypoglycemia Protocol Heparin Sodium (Porcine) (Heparin) 5,000 units SC Q12 [facility]HEEM Last Admin: 05/15/18 10:32 Dose: 5,000 units Dextrose (Dextrose 5% In Water 1000 Ml) 1,000 mls @ 0 mls/hr IV .Q0M PRN; Pro tocol PRN Reason: Hypoglycemia Protocol Daptomycin 300 mg/ Sodium (Chloride) 100 mls @ 200 mls/hr IV Q48H [facility]HEEM Last Admin: 05/14/18 17:30 Dose: 200 mls/hr Micafungin Sodium 100 mg/ (Sodium Chloride) 100 mls @ 100 mls/hr IV Q24H [facility]; Protocol Last Admin: 05/14/18 20:35 Dose: 100 mls/hr Phenylephrine HCl 30 mg/ (Dextrose) 253 mls @ 20.24 mls/hr IV .[id number] PRN; Protocol PRN Reason: TITRATE PER MD ORDER Last Titration: 05/13/18 18:30 Dose: 0 mcg/min, 0 mls/hr Meropenem 500 mg/ Sodium (Chloride) 100 mls @ 100 mls/hr IVPB Q12H [facility]; Protocol Last Admin: 05/15/18 10:32 Dose: 100 mls/hr Insulin Human Regular (Novolin R) 0 unit SC ACHS [facility]HE[facility]; Protocol Last Admin: 05/15/18 11:30 Dose: Not Given Isoniazid (Niazid) 300 mg PO DAILY [facility]; Protocol Last Admin: 05/15/18 13:05 Dose: 300 mg Lactic Acid (Lac-Hydrin 12% Lotion (225 G)) 0 gm EXT Q8 [facility] Last Admin: 05/15/18 13:11 Dose: 1 applic Levothyroxine Sodium (Synthroid) 150 mcg PO DAILY@0630 [facility] Last Admin: 05/15/18 06:19 Dose: 150 mcg Multivitamins (Hexavitamin) 1 tab PO DAILY [facility] Last Admin: 05/15/18 13:09 Dose: 1 tab Pantoprazole Sodium (Protonix Inj) 40 mg IVP Q12H [facility] Last Admin: 05/15/18 08:28 Dose: 40 mg Pyridoxine HCl (Vitamin B6 50 Mg Tab) 50 mg PO DAILY [facility] Last Admin: 05/15/18 10:36 Dose: 50 mg Rifampin (Rifampin Cap) 600 mg PO DAILY [facility]; Protocol Last Admin: 05/15/18 13:03 Dose: 600 mg Tacrolimus (Prograf Cap) 4 mg PO BID [facility] Thiamine HCl (Vitamin B1 Inj) 200 mg IV Q8H [facility] Last Admin: 05/15/18 10:34 Dose: 200 mg Verapamil HCl (Verapamil Inj) 2.5 mg IVP Q6H PRN PRN Reason: Heart rate Last Admin: 05/15/18 03:35 Dose: 2.5 mg Vitamin A (Vitamin A & D Oint Ud Foilpak) 0 ea TOP BID [facility] Last Admin: 05/15/18 10:34 Dose: 1 ea Results - Vital Signs Recent Vital Signs: Last Vital Signs Temp 97.6 F 05/15/18 08:00 Pulse 148 H 05/15/18 09:00 Resp 29 H 05/15/18 09:00 BP 144/96 H 05/15/18 09:03 Pulse Ox 99 05/15/18 09:00 - Labs Result Diagrams: 05/15/18 06:26 05/15/18 06:27 Labs: Laboratory Results - last 24 hr 05/14/18 05/14/18 05/15/18 16:11 21:16 01:16 WBC RBC Hgb Hct MCV MCH MCHC RDW Plt Count MPV Neut % (Auto) Lymph % (Auto) [place] % (Auto) Eos % (Auto) Baso % (Auto) Neut # (Auto) Lymph # (Auto) [place] # (Auto) Eos # (Auto) Baso # (Auto) Neutrophils % (Manual) Band Neutrophils % Lymphocytes % (Manual) Monocytes % (Manual) Eosinophils % (Manual) Myelocytes % Nucleated RBC % Platelet Estimate Polychromasia Hypochromasia (manual) Anisocytosis (manual) Tear Drop Cells Ovalocytes Sodium Potassium Chloride Carbon Dioxide Anion Gap BUN Creatinine Est GFR ( Amer) Est GFR (Non-Af Amer) POC Glucose (mg/dL) 197 H 151 H 129 H Random Glucose Calcium Phosphorus Magnesium Total Bilirubin AST ALT Alkaline Phosphatase Total Protein Albumin Globulin Albumin/Globulin Ratio Free T4 Thyroxine (T4) 05/15/18 05/15/18 05/15/18 06:26 06:27 06:27 WBC 12.7 H RBC 3.04 L Hgb 9.1 L Hct 27.8 L MCV 91.3 MCH 29.9 MCHC 32.7 L RDW 24.9 H Plt Count 104 L MPV 8.8 Neut % (Auto) 86.8 H Lymph % (Auto) 7.2 L [place] % (Auto) 5.2 Eos % (Auto) 0.7 Baso % (Auto) 0.1 Neut # (Auto) 11.0 H Lymph # (Auto) 0.9 L [place] # (Auto) 0.7 Eos # (Auto) 0.1 Baso # (Auto) 0.0 Neutrophils % (Manual) 72 Band Neutrophils % 8 H Lymphocytes % (Manual) 11 L Monocytes % (Manual) 6 Eosinophils % (Manual) 1 Myelocytes % 2 H Nucleated RBC % 5 H Platelet Estimate Slightly decreased L Polychromasia Slight Hypochromasia (manual) Slight Anisocytosis (manual) Moderate Tear Drop Cells Slight Ovalocytes Slight Sodium 148 Potassium 3.5 L Chloride 110 H Carbon Dioxide 24 Anion Gap 17 BUN 45 H Creatinine 3.3 H Est GFR ( Amer) 22 Est GFR (Non-Af Amer) 19 POC Glucose (mg/dL) Random Glucose 107 Calcium 8.2 L Phosphorus 5.1 H Magnesium 1.9 Total Bilirubin 1.2 AST 88 H D ALT 75 H Alkaline Phosphatase 75 Total Protein 6.1 L Albumin 3.8 Globulin 2.3 Albumin/Globulin Ratio 1.6 Free T4 0.45 L Thyroxine (T4) 1.22 L 05/15/18 05/15/18 07:23 11:06 WBC RBC Hgb Hct MCV MCH MCHC RDW Plt Count MPV Neut % (Auto) Lymph % (Auto) [place] % (Auto) Eos % (Auto) Baso % (Auto) Neut # (Auto) Lymph # (Auto) [place] # (Auto) Eos # (Auto) Baso # (Auto) Neutrophils % (Manual) Band Neutrophils % Lymphocytes % (Manual) Monocytes % (Manual) Eosinophils % (Manual) Myelocytes % Nucleated RBC % Platelet Estimate Polychromasia Hypochromasia (manual) Anisocytosis (manual) Tear Drop Cells Ovalocytes Sodium Potassium Chloride Carbon Dioxide Anion Gap BUN Creatinine Est GFR ( Amer) Est GFR (Non-Af Amer) POC Glucose (mg/dL) 93 88 Random Glucose Calcium Phosphorus Magnesium Total Bilirubin AST ALT Alkaline Phosphatase Total Protein Albumin Globulin Albumin/Globulin Ratio Free T4 Thyroxine (T4) Assessment & Plan - Assessment and Plan (Free Text) Plan: Patient was examined by me with the resident. Currently patient is doing very poorly Hypothermic. I agree with the current plan. Infectious disease follow-up. Overall prognosis very poor intensive care unit monitoring.
[2018-05-08] MEDS ORDERED: Vancomycin 1 GM 1 GM/250 ML BAG IV ONE (17:00)
[2018-05-08] MEDS ORDERED: Albuterol-Ipratrop 3 mg / 0.5 (3 ml) UD INH STA (17:36)
[2018-05-08] MEDS ORDERED: Dextrose 50% SYRINGE Inj (50 ml) IV STA ×2 (17:52→17:53)
[2018-05-08] MEDS ORDERED: Glucagon Recombinant 1 mg Inj IM PRN (17:53)
[2018-05-08] MEDS ORDERED: Levothyroxine 200 mcg (0.2 mg) Inj IVP ONE (18:00)
[2018-05-08] MEDS ORDERED: Levothyroxine 100 mcg (0.1 mg) Inj IVP ONE (18:00)
--- NOTE | 2018-05-08 18:54 | RAD ---
Date of service: 05/08/2018 HISTORY: cough COMPARISON: Chest radiograph performed approximately 6 hours prior. FINDINGS: LUNGS: Stable chronic prominence of the bilateral interstitial markings. No focal consolidation. PLEURA: No significant pleural effusion identified, no pneumothorax apparent. CARDIOVASCULAR: Left subclavian access AICD/pacemaker redemonstrated. Aortic atherosclerotic calcifications. Cardiomediastinal silhouette stably enlarged OSSEOUS STRUCTURES: Unchanged. VISUALIZED UPPER ABDOMEN: Right upper quadrant surgical clips. OTHER FINDINGS: Right upper extremity midline catheter, unchanged. IMPRESSION: No active disease.
[2018-05-08] MEDS: Aztreonam 1 GM in Sodium Chloride 0.9% 100 ML IVPB SCH (21:00)
--- NOTE | 2018-05-08 23:47 | CP.PCM.HP ---
History of Present Illness - History of Present Illness History of Present Illness: 72 years old [place] male was brought to the ED at [facility] because of sudden onset of confusion and slurred speech this AM after a blood test. In the ED, he was found to be very hypothermic with a blood glucose of 20 mg%. The patient is being treated for a tuberculosis of the left knee, and an infectious endocarditis with Rifampin, Ethambutol, INH, Vancomycin, and Zosyn. He underwent an incision and drainage of the left knee by Dr Tovar about a month ago with slow healing of the surgical wound. There is no recent fever, chills, loss of appetite. But there is an appearance of an erythematous rash with exfoliation starting from the right arm and expanding to the whole body in a period of about a week. Serum TSH remains elevated, In the ED he was given D50 IV, D10W, Solumedrol and Synthroid IV. He is known to have a hypertrophic cardiomyopathy with episodes of ventricular tachycardia and insertion of an ICD. He also has a chronic atrial fibrillation, a hypertension, a hypothyroidism, a COPD, a gout, a s/p colon resection for colon cancer, a s/p renal transplant, a NIDDM. Present on Admission - Present on Admission Any Indicators Present on Admission: No Review of Systems - Review of Systems Systems not reviewed;Unavailable: Altered Mental Status - Constitutional Constitutional: Weakness - Integumentary Integumentary: Erythema - Neurological Neurological: Abnormal Speech, Confusion - Psychiatric Psychiatric: Confusion Past Patient History - Infectious Disease Hx of Infectious Diseases: C.diff - Tetanus Immunizations Tetanus Immunization: Unknown - Past Medical History & Family History Past Medical History?: Yes - Past Social History Smoking Status: Former Smoker Chewing Tobacco Use: No Cigar Use: No Alcohol: None Drugs: Denies Home Situation {Lives}: With Family (mother) - CARDIAC Hx Atrial Fibrillation: Yes Hx Cardia Arrhythmia: Yes Hx Congestive Heart Failure: Yes Hx Hypercholesterolemia: Yes Hx Hypertension: Yes Hx Pacemaker: (Patient has a ISSH with ventricular tachycardia and an ICD.) - PULMONARY Hx Asthma: Yes Hx Bronchitis: Yes Hx Chronic Obstructive Pulmonary Disease (COPD): Yes (Emphysema,) Hx Emphysema: Yes Hx Pneumonia: Yes Hx Sleep Apnea: Yes - NEUROLOGICAL Hx Neurological Disorder: Yes - HEENT Hx HEENT Problems: Yes Hx Cataracts: Yes (bilat iol,had surgery) - RENAL Hx Chronic Kidney Disease: Yes (s/p renal transplant) - ENDOCRINE/METABOLIC Hx Hypothyroidism: Yes - HEMATOLOGICAL/ONCOLOGICAL Hx Anemia: Yes - INTEGUMENTARY Hx Dermatological Problems: Yes (sun sentivity) Hx Eczema: Yes - MUSCULOSKELETAL/RHEUMATOLOGICAL Hx Arthritis: Yes (Gout) - GASTROINTESTINAL Hx Gastritis: Yes - GENITOURINARY/GYNECOLOGICAL Hx Genitourinary Disorders: No - PSYCHIATRIC Hx Substance Use: No - SURGICAL HISTORY Hx Surgeries: Yes (Hemicolectomy for colon cancer) Hx Angiogram: Yes (ICD insertion for ventricular tachycardia.) Hx Cataract Extraction: Yes Hx Cardiac Catheterization: Yes Hx Kidney Transplant: Yes () Other/Comment: THYROID SURGERY-2004. Hx of perforated bowel corrected with surgery. AICD - ANESTHESIA Hx Anesthesia: Yes Hx Anesthesia Reactions: No Hx Malignant Hyperthermia: No Meds Allergies/Adverse Reactions: Allergies Allergy/AdvReac Type Severity Reaction Status Date / Time metoprolol Allergy Intermediate ITCHING Verified 02/01/18 11:29 Physical Exam - Constitutional Appears: Confused, Chronically Ill - Head Exam Head Exam: NORMAL INSPECTION - Eye Exam Eye Exam: Normal appearance - ENT Exam ENT Exam: Normal Exam - Respiratory Exam Respiratory Exam: Clear to Auscultation Bilateral, NORMAL BREATHING PATTERN - Cardiovascular Exam Cardiovascular Exam: Irregular Rhythm, Systolic Murmur - GI/Abdominal Exam GI & Abdominal Exam: Normal Bowel Sounds - Rectal Exam Rectal Exam: Deferred - Exam Exam: NORMAL INSPECTION - Back Exam Back exam: NORMAL INSPECTION - Neurological Exam Neurological exam: Alert Additional comments: Confused. - Psychiatric Exam Psychiatric exam: Agitated, Anxious - Skin Skin Exam: Rash Additional comments: Exfiolative erythematous rash all over body. Results - Vital Signs Recent Vital Signs: Last Vital Signs Temp 96 F L 05/08/18 20:00 Pulse 79 05/08/18 22:10 Resp 19 05/08/18 22:10 BP 125/102 H 05/08/18 22:07 Pulse Ox 100 05/08/18 22:10 - Labs Result Diagrams: 05/08/18 12:44 05/08/18 12:44 Labs: Laboratory Results - last 24 hr 05/08/18 05/08/18 05/08/18 12:44 12:44 12:44 WBC 6.1 RBC 3.69 L Hgb 11.0 L Hct 33.2 L MCV 90.1 D MCH 29.8 MCHC 33.1 RDW 24.6 H Plt Count 158 D MPV 7.3 Neut % (Auto) 64.0 Lymph % (Auto) 12.4 L [place] % (Auto) 4.6 Eos % (Auto) 18.4 H Baso % (Auto) 0.6 Neut # (Auto) 3.9 Lymph # (Auto) 0.8 L [place] # (Auto) 0.3 Eos # (Auto) 1.1 H Baso # (Auto) 0.0 PT 20.6 H INR 1.9 APTT 59 H pO2 VBG pH VBG pCO2 VBG HCO3 VBG Total CO2 VBG O2 Sat (Calc) VBG Base Excess VBG Potassium Glucose Lactate Sodium 132 Potassium 4.1 Chloride 100 Carbon Dioxide 20 L Anion Gap 16 BUN 23 H Creatinine 2.2 H Est GFR ( Amer) 36 Est GFR (Non-Af Amer) 30 POC Glucose (mg/dL) Random Glucose 47 L Lactic Acid Calcium 8.2 L Phosphorus 6.2 H Magnesium 1.1 L Total Bilirubin 0.4 AST 26 ALT 15 L D Alkaline Phosphatase 67 Total Creatine Kinase < 20 L CK-MB (Mass) 2.48 Troponin I 0.0740 Total Protein 5.2 L Albumin 2.3 L Globulin 2.8 Albumin/Globulin Ratio 0.8 L Amylase < 30 L Lipase < 10 L TSH 3rd Generation 42.60 H Plasma Cortisol PM Venous Blood Potassium Urine Color Urine Clarity Urine pH Ur Specific [place] Urine Protein Urine Glucose (UA) Urine Ketones Urine Blood Urine Nitrate Urine Bilirubin Urine Urobilinogen Ur Leukocyte Esterase Urine WBC (Auto) Urine RBC (Auto) Amorphous Sediment Urine Bacteria Hyaline Casts 05/08/18 05/08/18 05/08/18 12:48 13:35 14:58 WBC RBC Hgb Hct MCV MCH MCHC RDW Plt Count MPV Neut % (Auto) Lymph % (Auto) [place] % (Auto) Eos % (Auto) Baso % (Auto) Neut # (Auto) Lymph # (Auto) [place] # (Auto) Eos # (Auto) Baso # (Auto) PT INR APTT pO2 44 VBG pH 7.34 VBG pCO2 39 L VBG HCO3 20.9 VBG Total CO2 22.2 VBG O2 Sat (Calc) 82.0 H VBG Base Excess -4.4 L VBG Potassium 3.8 Glucose 52 L Lactate 1.9 Sodium 131.0 L Potassium Chloride 103.0 Carbon Dioxide Anion Gap BUN Creatinine Est GFR ( Amer) Est GFR (Non-Af Amer) POC Glucose (mg/dL) Random Glucose Lactic Acid Calcium Phosphorus Magnesium Total Bilirubin AST ALT Alkaline Phosphatase Total Creatine Kinase CK-MB (Mass) Troponin I Total Protein Albumin Globulin Albumin/Globulin Ratio Amylase Lipase TSH 3rd Generation Plasma Cortisol PM 2.00 Venous Blood Potassium 3.8 Urine Color Jing Urine Clarity Clear Urine pH 5.0 Ur Specific [place] 1.019 Urine Protein Negative Urine Glucose (UA) Normal Urine Ketones Negative Urine Blood 1+ H Urine Nitrate Negative Urine Bilirubin Negative Urine Urobilinogen Normal Ur Leukocyte Esterase Neg Urine WBC (Auto) 3 Urine RBC (Auto) 8 H Amorphous Sediment Rare H Urine Bacteria Rare Hyaline Casts 0-2 05/08/18 05/08/18 05/08/18 15:18 17:48 17:51 WBC RBC Hgb Hct MCV MCH MCHC RDW Plt Count MPV Neut % (Auto) Lymph % (Auto) [place] % (Auto) Eos % (Auto) Baso % (Auto) Neut # (Auto) Lymph # (Auto) [place] # (Auto) Eos # (Auto) Baso # (Auto) PT INR APTT pO2 VBG pH VBG pCO2 VBG HCO3 VBG Total CO2 VBG O2 Sat (Calc) VBG Base Excess VBG Potassium Glucose Lactate Sodium Potassium Chloride Carbon Dioxide Anion Gap BUN Creatinine Est GFR ( Amer) Est GFR (Non-Af Amer) POC Glucose (mg/dL) 20 L* 20 L* Random Glucose Lactic Acid 1.7 Calcium Phosphorus Magnesium Total Bilirubin AST ALT Alkaline Phosphatase Total Creatine Kinase CK-MB (Mass) Troponin I Total Protein Albumin Globulin Albumin/Globulin Ratio Amylase Lipase TSH 3rd Generation Plasma Cortisol PM Venous Blood Potassium Urine Color Urine Clarity Urine pH Ur Specific [place] Urine Protein Urine Glucose (UA) Urine Ketones Urine Blood Urine Nitrate Urine Bilirubin Urine Urobilinogen Ur Leukocyte Esterase Urine WBC (Auto) Urine RBC (Auto) Amorphous Sediment Urine Bacteria Hyaline Casts 05/08/18 05/08/18 18:34 18:37 WBC RBC Hgb Hct MCV MCH MCHC RDW Plt Count MPV Neut % (Auto) Lymph % (Auto) [place] % (Auto) Eos % (Auto) Baso % (Auto) Neut # (Auto) Lymph # (Auto) [place] # (Auto) Eos # (Auto) Baso # (Auto) PT INR APTT pO2 VBG pH VBG pCO2 VBG HCO3 VBG Total CO2 VBG O2 Sat (Calc) VBG Base Excess VBG Potassium Glucose Lactate Sodium Potassium Chloride Carbon Dioxide Anion Gap BUN Creatinine Est GFR ( Amer) Est GFR (Non-Af Amer) POC Glucose (mg/dL) 234 H 224 H Random Glucose Lactic Acid Calcium Phosphorus Magnesium Total Bilirubin AST ALT Alkaline Phosphatase Total Creatine Kinase CK-MB (Mass) Troponin I Total Protein Albumin Globulin Albumin/Globulin Ratio Amylase Lipase TSH 3rd Generation Plasma Cortisol PM Venous Blood Potassium Urine Color Urine Clarity Urine pH Ur Specific [place] Urine Protein Urine Glucose (UA) Urine Ketones Urine Blood Urine Nitrate Urine Bilirubin Urine Urobilinogen Ur Leukocyte Esterase Urine WBC (Auto) Urine RBC (Auto) Amorphous Sediment Urine Bacteria Hyaline Casts Assessment & Plan (1) Hypothermia Assessment and Plan: Probably from a hypothyroidism, hypotension. On Levothyroxin and IV NS. Status: Acute (2) Hypoglycemia Assessment and Plan: On IV D10W, Solumedrol IV. Status: Resolved (3) Hypotension Assessment and Plan: Scondary to hypovolemia and/or sepsis. Patient is receiving IV NS, IV Cubicin and Azactam. Status: Resolved (4) Acute confusion Assessment and Plan: Probably from sepsis, and or hypoglycemia. Status: Acute (5) Exfoliative dermatitis Assessment and Plan: Probably from a drug allergy. Patient is on Solumedrol. Status: Acute Decision To Admit - Pt Status Changed To: Hospital Disposition Of: Inpatient - Admit Certification Admit to Inpatient:: After my assessment, the patient will require hospitalization for at least two midnights. This is because of the severity of symptoms shown, intensity of services needed, and/or the medical risk in this patient being treated as an outpatient. - InPatient: Physician Admission Certification:: After my assessments, the patient requires hospitalization for at least 2 midnights. - . Bed Request Type: ICU Admitting Physician: Reji Bradshaw
[2018-05-09] MEDS: Albuterol-Ipratrop 3 mg / 0.5 (3 ml) UD INH SCH ×3 (01:30→19:39)
[2018-05-09] MEDS: Aztreonam 1 GM in Sodium Chloride 0.9% 100 ML IVPB SCH ×3 (05:45→21:41)
[2018-05-09] MEDS ORDERED: Levothyroxine 200 MCG TAB PO SCH (06:30)
[2018-05-09 06:39] LABS: BASO % 0.6 % (0.0-2.0); EOS % 0.1 % (0.0-4.0); HEMOGLOBIN 8.8 g/dL (12.0-18.0); LYMPH # 0.5 K/uL (1.0-4.3); LYMPH % 7.7 % (20.0-40.0); MEAN CELL VOLUME 90.2 fL (80.0-94.0); MEAN CORPUSCULAR HEMOGLOBIN 29.8 pg (27.0-31.0); MEAN PLATELET VOLUME 8.2 fL (7.2-11.7); MONO # 0.1 K/uL (0.0-0.8); MONO % 0.9 % (0.0-10.0); NEUT # 5.6 K/uL (1.8-7.0); NEUT % 90.7 % (50.0-75.0); NRBC % 0.4 % (0.0-2.0); PLATELET COUNT 183 K/uL (130-400); RBC 2.96 Mil/uL (4.40-5.90); RED CELL DISTRIBUTION WIDTH 25.3 % (11.5-14.5); WHITE BLOOD COUNT 6.1 K/uL (4.8-10.8)
[2018-05-09 07:01] LABS: ALB/GLOB RATIO 0.8 (1.0-2.1); ALBUMIN 2.1 g/dL (3.5-5.0); CALCIUM 7.4 mg/dl (8.6-10.4)
--- NOTE | 2018-05-09 07:26 | CP.CCUPN ---
<Natasha Khan - Last Filed: 05/09/18 12:38> CCU Subjective - Physician Review Events Since Last Encounter (Free Text): 05/09/18 07:24 no over night events, patient continues to be hypotensive, temperature is improving Subjective (Free Text): 05/09/18 07:24 Patient is seen and examined this morning. He is much calmer than yesterday. He is alert and oriented x4. His speech is still low and difficult to understand. He has no acute complaints. Critical Care Time Spent (in minutes): 35 CCU Objective - Vital Signs / Intake & Output Vital Signs (Last 4 hours): Vital Signs Temp Pulse Resp BP Pulse Ox 05/09/18 06:29 89 19 80/60 L 100 05/09/18 06:00 83 13 100 05/09/18 05:50 77/25 L 05/09/18 05:33 80 21 75/29 L 100 05/09/18 05:18 84 12 77/30 L 100 05/09/18 05:09 84 21 76/26 L 100 05/09/18 05:00 84 22 100 05/09/18 04:06 85/25 L 05/09/18 04:00 96.5 F L 85 17 100 05/09/18 03:30 106/24 L Intake and Output (Last 8hrs): Intake & Output 05/08/18 05/09/18 05/09/18 22:59 06:59 14:59 Intake Total 1570 1145 Output Total 0 400 Balance 1570 745 Weight 108 lb 9.6 oz 109 lb Intake: Intake, IV Amount 1520 1145 Right 1100 200 Right PICC 300 675 Right PICC Distal Port 120 270 Oral 50 Output: Urine 400 Urine, Voided 400 Emesis 0 Other: Voiding Method Urinal # Voids Urine, Voided 0 # Bowel Movements 0 1 - Physical Exam Physical Exam Limitations: Positive for: Clinical Condition Head: Positive for: Atraumatic, Normocephalic Pupils: Positive for: PERRL Extroacular Muscles: Positive for: EOMI Conjunctiva: Positive for: Normal Mouth: Positive for: Dry Pharnyx: Negative for: ERYTHEMA Respiratory/Chest: Positive for: Clear to Auscultation. Negative for: Respiratory Distress, Accessory Muscle Use Cardiovascular: Positive for: Regular Rate and Rhythm, Normal S1, S2. Negative for: Murmurs Abdomen: Positive for: Normal Bowel Sounds. Negative for: Tenderness, Distention, Peritoneal Signs Upper Extremity: Positive for: Swelling, Erythema, Neurovascularly Intact, Other (PICC in RUE, skin sloughing) Lower Extremity: Positive for: Erythema, Neurovascularly Intact Neurological: Positive for: GCS=15, Other (much improved from presentation yesterday) Psychiatric: Positive for: Alert, Oriented x 3. Negative for: Agitated - Medications Active Medications: Active Medications Generic Name Dose Route Start Last Admin Trade Name Freq PRN Reason Stop Dose Admin Albuterol/Ipratropium 3 ml 05/09/18 00:00 05/09/18 01:30 Duoneb 3 Mg/0.5 Mg (3 Ml) Ud INH 3 ml RQ8 FAHEEM Administration Apixaban 2.5 mg 05/08/18 18:00 05/08/18 18:48 Eliquis PO Not Given BID FAHEEM Dextrose 0 ml 05/08/18 17:53 Dextrose 50% Inj IV STAT PRN Hypoglycemia Protocol Protocol Dextrose 0 gm 05/08/18 17:53 Glutose 15 PO ONCE PRN Hypoglycemia Protocol Protocol Ethambutol HCl 1,200 mg 05/09/18 10:00 Myambutol PO TTS FAHEEM Protocol Folic Acid 1 mg 05/09/18 10:00 Folic Acid PO DAILY FAHEEM Glucagon 0 mg 05/08/18 17:53 Glucagen Diagnostic Kit IM STAT PRN Hypoglycemia Protocol Protocol Aztreonam 1 gm/ Sodium 100 mls @ 200 mls/hr 05/08/18 22:00 05/09/18 05:45 Chloride IVPB 200 mls/hr Q8H FAHEEM Administration Protocol Daptomycin 630 mg/ Sodium 100 mls @ 200 mls/hr 05/08/18 18:30 05/08/18 20:48 Chloride IV 05/13/18 18:31 200 mls/hr Q48H FAHEEM Administration Dextrose 1,000 mls @ 0 mls/hr 05/08/18 17:53 Dextrose 5% In Water 1000 Ml IV .Q0M PRN Hypoglycemia Protocol Protocol Per Protocol Dextrose 500 mls @ 30 mls/hr 05/08/18 18:30 05/08/18 18:47 Dextrose 10% In Water IV 30 mls/hr .[id number] FAHEEM Administration Magnesium Sulfate/Dextrose 1 gm in 100 mls @ 200 mls/hr 05/09/18 07:30 Magnesium Sulfate 1 Gm/100 Ml D5w IVPB 05/09/18 08:29 Q30M [facility] Isoniazid 300 mg 05/09/18 10:00 Niazid PO DAILY [facility] Protocol Levothyroxine Sodium 200 mcg 05/09/18 06:30 05/09/18 05:44 Synthroid PO 200 mcg DAILY@0630 FAHEEM Administration Levothyroxine Sodium 100 mcg 05/09/18 10:00 Synthroid IVP DAILY [facility] Pantoprazole Sodium 40 mg 05/09/18 10:00 Protonix Ec Tab PO DAILY [facility] Pyridoxine HCl 50 mg 05/09/18 10:00 Vitamin B6 50 Mg Tab PO DAILY [facility] Rifampin 600 mg 05/09/18 10:00 Rifampin Cap PO DAILY [facility] Protocol Sodium Bicarbonate 650 mg 05/08/18 18:00 05/08/18 18:48 Sodium Bicarbonate Tab PO Not Given TID FAHEEM Tacrolimus 5 mg 05/08/18 18:00 05/08/18 18:48 Prograf PO Not Given BID [facility] - Patient Studies Lab Studies: Lab Studies 05/09/18 05/09/18 05/08/18 Range/Units 06:28 06:28 21:15 WBC 6.1 (4.8-10.8) K/uL RBC 2.96 L (4.40-5.90) Mil/uL Hgb 8.8 L D (12.0-18.0) g/dL Hct 26.7 L (35.0-51.0) % MCV 90.2 (80.0-94.0) fL MCH 29.8 (27.0-31.0) pg MCHC 33.0 (33.0-37.0) g/dL RDW 25.3 H (11.5-14.5) % Plt Count 183 (130-400) K/uL MPV 8.2 (7.2-11.7) fL Neut % (Auto) 90.7 H (50.0-75.0) % Lymph % (Auto) 7.7 L (20.0-40.0) % Carroll % (Auto) 0.9 (0.0-10.0) % Eos % (Auto) 0.1 (0.0-4.0) % Baso % (Auto) 0.6 (0.0-2.0) % Neut # (Auto) 5.6 (1.8-7.0) K/uL Lymph # (Auto) 0.5 L (1.0-4.3) K/uL Carroll # (Auto) 0.1 (0.0-0.8) K/uL Eos # (Auto) 0.0 (0.0-0.7) K/uL Baso # (Auto) 0.0 (0.0-0.2) K/uL PT (9.7-12.2) SECONDS INR APTT (21-34) SECONDS pO2 (30-55) mm/Hg VBG pH (7.32-7.43) VBG pCO2 (40-60) mmHg VBG HCO3 mmol/L VBG Total CO2 (22-28) mmol/L VBG O2 Sat (Calc) (40-65) % VBG Base Excess (0.0-2.0) mmol/L VBG Potassium (3.6-5.2) mmol/L Glucose (75-110) mg/dl Lactate (0.7-2.1) mmol/L Sodium 137 (132-148) mmol/L Potassium 4.9 (3.6-5.2) mmol/L Chloride 108 H (98-107) mmol/L Carbon Dioxide 14 L (22-30) mmol/L Anion Gap 20 (10-20) BUN 23 H (9-20) mg/dL Creatinine 2.2 H (0.8-1.5) mg/dL Est GFR ( Amer) 36 Est GFR (Non-Af Amer) 30 POC Glucose (mg/dL) 152 H (65-110) mg/dL Random Glucose 159 H (75-110) mg/dL Lactic Acid (0.7-2.1) mmol/L Calcium 7.4 L (8.6-10.4) mg/dl Phosphorus 6.8 H (2.5-4.5) mg/dL Magnesium 1.3 L (1.6-2.3) mg/dL Total Bilirubin 0.2 (0.2-1.3) mg/dL AST 25 (17-59) U/L ALT 19 L D (21-72) U/L Alkaline Phosphatase 58 (38-126) U/L Total Creatine Kinase (55-170) U/L CK-MB (Mass) (0.0-3.38) ng/mL Troponin I (0.00-0.120) ng/mL Total Protein 4.6 L (6.3-8.3) g/dL Albumin 2.1 L (3.5-5.0) g/dL Globulin 2.5 (2.2-3.9) gm/dL Albumin/Globulin Ratio 0.8 L (1.0-2.1) Amylase (30-110) U/L Lipase (23-300) U/L TSH 3rd Generation (0.46-4.68) mIU/L Plasma Cortisol PM (1.7-14.1) ug/dL Venous Blood Potassium (3.6-5.2) mmol/L Urine Color (YELLOW) Urine Clarity (Clear) Urine pH (5.0-8.0) Ur Specific [place] (1.003-1.030) Urine Protein (NEGATIVE) mg/dL Urine Glucose (UA) (Normal) mg/dL Urine Ketones (NEGATIVE) mg/dL Urine Blood (NEGATIVE) Urine Nitrate (NEGATIVE) Urine Bilirubin (NEGATIVE) Urine Urobilinogen (0.2-1.0) mg/dL Ur Leukocyte Esterase (Negative) Vicente/uL Urine WBC (Auto) (0-5) /hpf Urine RBC (Auto) (0-3) /hpf Amorphous Sediment (<OCC) /ul Urine Bacteria (<OCC) Hyaline Casts (0-2) /lpf 05/08/18 05/08/18 05/08/18 Range/Units 18:37 18:34 17:51 WBC (4.8-10.8) K/uL RBC (4.40-5.90) Mil/uL Hgb (12.0-18.0) g/dL Hct (35.0-51.0) % MCV (80.0-94.0) fL MCH (27.0-31.0) pg MCHC (33.0-37.0) g/dL RDW (11.5-14.5) % Plt Count (130-400) K/uL MPV (7.2-11.7) fL Neut % (Auto) (50.0-75.0) % Lymph % (Auto) (20.0-40.0) % Carroll % (Auto) (0.0-10.0) % Eos % (Auto) (0.0-4.0) % Baso % (Auto) (0.0-2.0) % Neut # (Auto) (1.8-7.0) K/uL Lymph # (Auto) (1.0-4.3) K/uL Carroll # (Auto) (0.0-0.8) K/uL Eos # (Auto) (0.0-0.7) K/uL Baso # (Auto) (0.0-0.2) K/uL PT (9.7-12.2) SECONDS INR APTT (21-34) SECONDS pO2 (30-55) mm/Hg VBG pH (7.32-7.43) VBG pCO2 (40-60) mmHg VBG HCO3 mmol/L VBG Total CO2 (22-28) mmol/L VBG O2 Sat (Calc) (40-65) % VBG Base Excess (0.0-2.0) mmol/L VBG Potassium (3.6-5.2) mmol/L Glucose (75-110) mg/dl Lactate (0.7-2.1) mmol/L Sodium (132-148) mmol/L Potassium (3.6-5.2) mmol/L Chloride (98-107) mmol/L Carbon Dioxide (22-30) mmol/L Anion Gap (10-20) BUN (9-20) mg/dL Creatinine (0.8-1.5) mg/dL Est GFR ( Amer) Est GFR (Non-Af Amer) POC Glucose (mg/dL) 224 H 234 H 20 L* (65-110) mg/dL Random Glucose (75-110) mg/dL Lactic Acid (0.7-2.1) mmol/L Calcium (8.6-10.4) mg/dl Phosphorus (2.5-4.5) mg/dL Magnesium (1.6-2.3) mg/dL Total Bilirubin (0.2-1.3) mg/dL AST (17-59) U/L ALT (21-72) U/L Alkaline Phosphatase (38-126) U/L Total Creatine Kinase (55-170) U/L CK-MB (Mass) (0.0-3.38) ng/mL Troponin I (0.00-0.120) ng/mL Total Protein (6.3-8.3) g/dL Albumin (3.5-5.0) g/dL Globulin (2.2-3.9) gm/dL Albumin/Globulin Ratio (1.0-2.1) Amylase (30-110) U/L Lipase (23-300) U/L TSH 3rd Generation (0.46-4.68) mIU/L Plasma Cortisol PM (1.7-14.1) ug/dL Venous Blood Potassium (3.6-5.2) mmol/L Urine Color (YELLOW) Urine Clarity (Clear) Urine pH (5.0-8.0) Ur Specific [place] (1.003-1.030) Urine Protein (NEGATIVE) mg/dL Urine Glucose (UA) (Normal) mg/dL Urine Ketones (NEGATIVE) mg/dL Urine Blood (NEGATIVE) Urine Nitrate (NEGATIVE) Urine Bilirubin (NEGATIVE) Urine Urobilinogen (0.2-1.0) mg/dL Ur Leukocyte Esterase (Negative) Vicente/uL Urine WBC (Auto) (0-5) /hpf Urine RBC (Auto) (0-3) /hpf Amorphous Sediment (<OCC) /ul Urine Bacteria (<OCC) Hyaline Casts (0-2) /lpf 05/08/18 05/08/18 05/08/18 Range/Units 17:48 15:18 14:58 WBC (4.8-10.8) K/uL RBC (4.40-5.90) Mil/uL Hgb (12.0-18.0) g/dL Hct (35.0-51.0) % MCV (80.0-94.0) fL MCH (27.0-31.0) pg MCHC (33.0-37.0) g/dL RDW (11.5-14.5) % Plt Count (130-400) K/uL MPV (7.2-11.7) fL Neut % (Auto) (50.0-75.0) % Lymph % (Auto) (20.0-40.0) % Carroll % (Auto) (0.0-10.0) % Eos % (Auto) (0.0-4.0) % Baso % (Auto) (0.0-2.0) % Neut # (Auto) (1.8-7.0) K/uL Lymph # (Auto) (1.0-4.3) K/uL Carroll # (Auto) (0.0-0.8) K/uL Eos # (Auto) (0.0-0.7) K/uL Baso # (Auto) (0.0-0.2) K/uL PT (9.7-12.2) SECONDS INR APTT (21-34) SECONDS pO2 (30-55) mm/Hg VBG pH (7.32-7.43) VBG pCO2 (40-60) mmHg VBG HCO3 mmol/L VBG Total CO2 (22-28) mmol/L VBG O2 Sat (Calc) (40-65) % VBG Base Excess (0.0-2.0) mmol/L VBG Potassium (3.6-5.2) mmol/L Glucose (75-110) mg/dl Lactate (0.7-2.1) mmol/L Sodium (132-148) mmol/L Potassium (3.6-5.2) mmol/L Chloride (98-107) mmol/L Carbon Dioxide (22-30) mmol/L Anion Gap (10-20) BUN (9-20) mg/dL Creatinine (0.8-1.5) mg/dL Est GFR ( Amer) Est GFR (Non-Af Amer) POC Glucose (mg/dL) 20 L* (65-110) mg/dL Random Glucose (75-110) mg/dL Lactic Acid 1.7 (0.7-2.1) mmol/L Calcium (8.6-10.4) mg/dl Phosphorus (2.5-4.5) mg/dL Magnesium (1.6-2.3) mg/dL Total Bilirubin (0.2-1.3) mg/dL AST (17-59) U/L ALT (21-72) U/L Alkaline Phosphatase (38-126) U/L Total Creatine Kinase (55-170) U/L CK-MB (Mass) (0.0-3.38) ng/mL Troponin I (0.00-0.120) ng/mL Total Protein (6.3-8.3) g/dL Albumin (3.5-5.0) g/dL Globulin (2.2-3.9) gm/dL Albumin/Globulin Ratio (1.0-2.1) Amylase (30-110) U/L Lipase (23-300) U/L TSH 3rd Generation (0.46-4.68) mIU/L Plasma Cortisol PM 2.00 (1.7-14.1) ug/dL Venous Blood Potassium (3.6-5.2) mmol/L Urine Color (YELLOW) Urine Clarity (Clear) Urine pH (5.0-8.0) Ur Specific [place] (1.003-1.030) Urine Protein (NEGATIVE) mg/dL Urine Glucose (UA) (Normal) mg/dL Urine Ketones (NEGATIVE) mg/dL Urine Blood (NEGATIVE) Urine Nitrate (NEGATIVE) Urine Bilirubin (NEGATIVE) Urine Urobilinogen (0.2-1.0) mg/dL Ur Leukocyte Esterase (Negative) Vicente/uL Urine WBC (Auto) (0-5) /hpf Urine RBC (Auto) (0-3) /hpf Amorphous Sediment (<OCC) /ul Urine Bacteria (<OCC) Hyaline Casts (0-2) /lpf 05/08/18 05/08/18 05/08/18 Range/Units 13:35 12:48 12:44 WBC (4.8-10.8) K/uL RBC (4.40-5.90) Mil/uL Hgb (12.0-18.0) g/dL Hct (35.0-51.0) % MCV (80.0-94.0) fL MCH (27.0-31.0) pg MCHC (33.0-37.0) g/dL RDW (11.5-14.5) % Plt Count (130-400) K/uL MPV (7.2-11.7) fL Neut % (Auto) (50.0-75.0) % Lymph % (Auto) (20.0-40.0) % Carroll % (Auto) (0.0-10.0) % Eos % (Auto) (0.0-4.0) % Baso % (Auto) (0.0-2.0) % Neut # (Auto) (1.8-7.0) K/uL Lymph # (Auto) (1.0-4.3) K/uL Carroll # (Auto) (0.0-0.8) K/uL Eos # (Auto) (0.0-0.7) K/uL Baso # (Auto) (0.0-0.2) K/uL PT (9.7-12.2) SECONDS INR APTT (21-34) SECONDS pO2 44 (30-55) mm/Hg VBG pH 7.34 (7.32-7.43) VBG pCO2 39 L (40-60) mmHg VBG HCO3 20.9 mmol/L VBG Total CO2 22.2 (22-28) mmol/L VBG O2 Sat (Calc) 82.0 H (40-65) % VBG Base Excess -4.4 L (0.0-2.0) mmol/L VBG Potassium 3.8 (3.6-5.2) mmol/L Glucose 52 L (75-110) mg/dl Lactate 1.9 (0.7-2.1) mmol/L Sodium 131.0 L 132 (132-148) mmol/L Potassium 4.1 (3.6-5.2) mmol/L Chloride 103.0 100 (98-107) mmol/L Carbon Dioxide 20 L (22-30) mmol/L Anion Gap 16 (10-20) BUN 23 H (9-20) mg/dL Creatinine 2.2 H (0.8-1.5) mg/dL Est GFR ( Amer) 36 Est GFR (Non-Af Amer) 30 POC Glucose (mg/dL) (65-110) mg/dL Random Glucose 47 L (75-110) mg/dL Lactic Acid (0.7-2.1) mmol/L Calcium 8.2 L (8.6-10.4) mg/dl Phosphorus 6.2 H (2.5-4.5) mg/dL Magnesium 1.1 L (1.6-2.3) mg/dL Total Bilirubin 0.4 (0.2-1.3) mg/dL AST 26 (17-59) U/L ALT 15 L D (21-72) U/L Alkaline Phosphatase 67 (38-126) U/L Total Creatine Kinase < 20 L (55-170) U/L CK-MB (Mass) 2.48 (0.0-3.38) ng/mL Troponin I 0.0740 (0.00-0.120) ng/mL Total Protein 5.2 L (6.3-8.3) g/dL Albumin 2.3 L (3.5-5.0) g/dL Globulin 2.8 (2.2-3.9) gm/dL Albumin/Globulin Ratio 0.8 L (1.0-2.1) Amylase < 30 L (30-110) U/L Lipase < 10 L (23-300) U/L TSH 3rd Generation 42.60 H (0.46-4.68) mIU/L Plasma Cortisol PM (1.7-14.1) ug/dL Venous Blood Potassium 3.8 (3.6-5.2) mmol/L Urine Color Jing (YELLOW) Urine Clarity Clear (Clear) Urine pH 5.0 (5.0-8.0) Ur Specific [place] 1.019 (1.003-1.030) Urine Protein Negative (NEGATIVE) mg/dL Urine Glucose (UA) Normal (Normal) mg/dL Urine Ketones Negative (NEGATIVE) mg/dL Urine Blood 1+ H (NEGATIVE) Urine Nitrate Negative (NEGATIVE) Urine Bilirubin Negative (NEGATIVE) Urine Urobilinogen Normal (0.2-1.0) mg/dL Ur Leukocyte Esterase Neg (Negative) Vicente/uL Urine WBC (Auto) 3 (0-5) /hpf Urine RBC (Auto) 8 H (0-3) /hpf Amorphous Sediment Rare H (<OCC) /ul Urine Bacteria Rare (<OCC) Hyaline Casts 0-2 (0-2) /lpf 05/08/18 05/08/18 Range/Units 12:44 12:44 WBC 6.1 (4.8-10.8) K/uL RBC 3.69 L (4.40-5.90) Mil/uL Hgb 11.0 L (12.0-18.0) g/dL Hct 33.2 L (35.0-51.0) % MCV 90.1 D (80.0-94.0) fL MCH 29.8 (27.0-31.0) pg MCHC 33.1 (33.0-37.0) g/dL RDW 24.6 H (11.5-14.5) % Plt Count 158 D (130-400) K/uL MPV 7.3 (7.2-11.7) fL Neut % (Auto) 64.0 (50.0-75.0) % Lymph % (Auto) 12.4 L (20.0-40.0) % Carroll % (Auto) 4.6 (0.0-10.0) % Eos % (Auto) 18.4 H (0.0-4.0) % Baso % (Auto) 0.6 (0.0-2.0) % Neut # (Auto) 3.9 (1.8-7.0) K/uL Lymph # (Auto) 0.8 L (1.0-4.3) K/uL Carroll # (Auto) 0.3 (0.0-0.8) K/uL Eos # (Auto) 1.1 H (0.0-0.7) K/uL Baso # (Auto) 0.0 (0.0-0.2) K/uL PT 20.6 H (9.7-12.2) SECONDS INR 1.9 APTT 59 H (21-34) SECONDS pO2 (30-55) mm/Hg VBG pH (7.32-7.43) VBG pCO2 (40-60) mmHg VBG HCO3 mmol/L VBG Total CO2 (22-28) mmol/L VBG O2 Sat (Calc) (40-65) % VBG Base Excess (0.0-2.0) mmol/L VBG Potassium (3.6-5.2) mmol/L Glucose (75-110) mg/dl Lactate (0.7-2.1) mmol/L Sodium (132-148) mmol/L Potassium (3.6-5.2) mmol/L Chloride (98-107) mmol/L Carbon Dioxide (22-30) mmol/L Anion Gap (10-20) BUN (9-20) mg/dL Creatinine (0.8-1.5) mg/dL Est GFR ( Amer) Est GFR (Non-Af Amer) POC Glucose (mg/dL) (65-110) mg/dL Random Glucose (75-110) mg/dL Lactic Acid (0.7-2.1) mmol/L Calcium (8.6-10.4) mg/dl Phosphorus (2.5-4.5) mg/dL Magnesium (1.6-2.3) mg/dL Total Bilirubin (0.2-1.3) mg/dL AST (17-59) U/L ALT (21-72) U/L Alkaline Phosphatase (38-126) U/L Total Creatine Kinase (55-170) U/L CK-MB (Mass) (0.0-3.38) ng/mL Troponin I (0.00-0.120) ng/mL Total Protein (6.3-8.3) g/dL Albumin (3.5-5.0) g/dL Globulin (2.2-3.9) gm/dL Albumin/Globulin Ratio (1.0-2.1) Amylase (30-110) U/L Lipase (23-300) U/L TSH 3rd Generation (0.46-4.68) mIU/L Plasma Cortisol PM (1.7-14.1) ug/dL Venous Blood Potassium (3.6-5.2) mmol/L Urine Color (YELLOW) Urine Clarity (Clear) Urine pH (5.0-8.0) Ur Specific [place] (1.003-1.030) Urine Protein (NEGATIVE) mg/dL Urine Glucose (UA) (Normal) mg/dL Urine Ketones (NEGATIVE) mg/dL Urine Blood (NEGATIVE) Urine Nitrate (NEGATIVE) Urine Bilirubin (NEGATIVE) Urine Urobilinogen (0.2-1.0) mg/dL Ur Leukocyte Esterase (Negative) Vicente/uL Urine WBC (Auto) (0-5) /hpf Urine RBC (Auto) (0-3) /hpf Amorphous Sediment (<OCC) /ul Urine Bacteria (<OCC) Hyaline Casts (0-2) /lpf Laboratory Results - last 24 hr 05/08/18 05/08/18 05/08/18 12:44 12:44 12:44 WBC 6.1 RBC 3.69 L Hgb 11.0 L Hct 33.2 L MCV 90.1 D MCH 29.8 MCHC 33.1 RDW 24.6 H Plt Count 158 D MPV 7.3 Neut % (Auto) 64.0 Lymph % (Auto) 12.4 L [place] % (Auto) 4.6 Eos % (Auto) 18.4 H Baso % (Auto) 0.6 Neut # (Auto) 3.9 Lymph # (Auto) 0.8 L [place] # (Auto) 0.3 Eos # (Auto) 1.1 H Baso # (Auto) 0.0 PT 20.6 H INR 1.9 APTT 59 H pO2 VBG pH VBG pCO2 VBG HCO3 VBG Total CO2 VBG O2 Sat (Calc) VBG Base Excess VBG Potassium Glucose Lactate Sodium 132 Potassium 4.1 Chloride 100 Carbon Dioxide 20 L Anion Gap 16 BUN 23 H Creatinine 2.2 H Est GFR ( Amer) 36 Est GFR (Non-Af Amer) 30 POC Glucose (mg/dL) Random Glucose 47 L Lactic Acid Calcium 8.2 L Phosphorus 6.2 H Magnesium 1.1 L Total Bilirubin 0.4 AST 26 ALT 15 L D Alkaline Phosphatase 67 Total Creatine Kinase < 20 L CK-MB (Mass) 2.48 Troponin I 0.0740 Total Protein 5.2 L Albumin 2.3 L Globulin 2.8 Albumin/Globulin Ratio 0.8 L Amylase < 30 L Lipase < 10 L TSH 3rd Generation 42.60 H Plasma Cortisol PM Venous Blood Potassium Urine Color Urine Clarity Urine pH Ur Specific [place] Urine Protein Urine Glucose (UA) Urine Ketones Urine Blood Urine Nitrate Urine Bilirubin Urine Urobilinogen Ur Leukocyte Esterase Urine WBC (Auto) Urine RBC (Auto) Amorphous Sediment Urine Bacteria Hyaline Casts 05/08/18 05/08/18 05/08/18 12:48 13:35 14:58 WBC RBC Hgb Hct MCV MCH MCHC RDW Plt Count MPV Neut % (Auto) Lymph % (Auto) Carroll % (Auto) Eos % (Auto) Baso % (Auto) Neut # (Auto) Lymph # (Auto) Carroll # (Auto) Eos # (Auto) Baso # (Auto) PT INR APTT pO2 44 VBG pH 7.34 VBG pCO2 39 L VBG HCO3 20.9 VBG Total CO2 22.2 VBG O2 Sat (Calc) 82.0 H VBG Base Excess -4.4 L VBG Potassium 3.8 Glucose 52 L Lactate 1.9 Sodium 131.0 L Potassium Chloride 103.0 Carbon Dioxide Anion Gap BUN Creatinine Est GFR ( Amer) Est GFR (Non-Af Amer) POC Glucose (mg/dL) Random Glucose Lactic Acid Calcium Phosphorus Magnesium Total Bilirubin AST ALT Alkaline Phosphatase Total Creatine Kinase CK-MB (Mass) Troponin I Total Protein Albumin Globulin Albumin/Globulin Ratio Amylase Lipase TSH 3rd Generation Plasma Cortisol PM 2.00 Venous Blood Potassium 3.8 Urine Color Jing Urine Clarity Clear Urine pH 5.0 Ur Specific [place] 1.019 Urine Protein Negative Urine Glucose (UA) Normal Urine Ketones Negative Urine Blood 1+ H Urine Nitrate Negative Urine Bilirubin Negative Urine Urobilinogen Normal Ur Leukocyte Esterase Neg Urine WBC (Auto) 3 Urine RBC (Auto) 8 H Amorphous Sediment Rare H Urine Bacteria Rare Hyaline Casts 0-2 05/08/18 05/08/18 05/08/18 15:18 17:48 17:51 WBC RBC Hgb Hct MCV MCH MCHC RDW Plt Count MPV Neut % (Auto) Lymph % (Auto) Carroll % (Auto) Eos % (Auto) Baso % (Auto) Neut # (Auto) Lymph # (Auto) Carroll # (Auto) Eos # (Auto) Baso # (Auto) PT INR APTT pO2 VBG pH VBG pCO2 VBG HCO3 VBG Total CO2 VBG O2 Sat (Calc) VBG Base Excess VBG Potassium Glucose Lactate Sodium Potassium Chloride Carbon Dioxide Anion Gap BUN Creatinine Est GFR ( Amer) Est GFR (Non-Af Amer) POC Glucose (mg/dL) 20 L* 20 L* Random Glucose Lactic Acid 1.7 Calcium Phosphorus Magnesium Total Bilirubin AST ALT Alkaline Phosphatase Total Creatine Kinase CK-MB (Mass) Troponin I Total Protein Albumin Globulin Albumin/Globulin Ratio Amylase Lipase TSH 3rd Generation Plasma Cortisol PM Venous Blood Potassium Urine Color Urine Clarity Urine pH Ur Specific [place] Urine Protein Urine Glucose (UA) Urine Ketones Urine Blood Urine Nitrate Urine Bilirubin Urine Urobilinogen Ur Leukocyte Esterase Urine WBC (Auto) Urine RBC (Auto) Amorphous Sediment Urine Bacteria Hyaline Casts 05/08/18 05/08/18 05/08/18 18:34 18:37 21:15 WBC RBC Hgb Hct MCV MCH MCHC RDW Plt Count MPV Neut % (Auto) Lymph % (Auto) Carroll % (Auto) Eos % (Auto) Baso % (Auto) Neut # (Auto) Lymph # (Auto) Carroll # (Auto) Eos # (Auto) Baso # (Auto) PT INR APTT pO2 VBG pH VBG pCO2 VBG HCO3 VBG Total CO2 VBG O2 Sat (Calc) VBG Base Excess VBG Potassium Glucose Lactate Sodium Potassium Chloride Carbon Dioxide Anion Gap BUN Creatinine Est GFR ( Amer) Est GFR (Non-Af Amer) POC Glucose (mg/dL) 234 H 224 H 152 H Random Glucose Lactic Acid Calcium Phosphorus Magnesium Total Bilirubin AST ALT Alkaline Phosphatase Total Creatine Kinase CK-MB (Mass) Troponin I Total Protein Albumin Globulin Albumin/Globulin Ratio Amylase Lipase TSH 3rd Generation Plasma Cortisol PM Venous Blood Potassium Urine Color Urine Clarity Urine pH Ur Specific [place] Urine Protein Urine Glucose (UA) Urine Ketones Urine Blood Urine Nitrate Urine Bilirubin Urine Urobilinogen Ur Leukocyte Esterase Urine WBC (Auto) Urine RBC (Auto) Amorphous Sediment Urine Bacteria Hyaline Casts 05/09/18 05/09/18 06:28 06:28 WBC 6.1 RBC 2.96 L Hgb 8.8 L D Hct 26.7 L MCV 90.2 MCH 29.8 MCHC 33.0 RDW 25.3 H Plt Count 183 MPV 8.2 Neut % (Auto) 90.7 H Lymph % (Auto) 7.7 L Carroll % (Auto) 0.9 Eos % (Auto) 0.1 Baso % (Auto) 0.6 Neut # (Auto) 5.6 Lymph # (Auto) 0.5 L [place] # (Auto) 0.1 Eos # (Auto) 0.0 Baso # (Auto) 0.0 PT INR APTT pO2 VBG pH VBG pCO2 VBG HCO3 VBG Total CO2 VBG O2 Sat (Calc) VBG Base Excess VBG Potassium Glucose Lactate Sodium 137 Potassium 4.9 Chloride 108 H Carbon Dioxide 14 L Anion Gap 20 BUN 23 H Creatinine 2.2 H Est GFR ( Amer) 36 Est GFR (Non-Af Amer) 30 POC Glucose (mg/dL) Random Glucose 159 H Lactic Acid Calcium 7.4 L Phosphorus 6.8 H Magnesium 1.3 L Total Bilirubin 0.2 AST 25 ALT 19 L D Alkaline Phosphatase 58 Total Creatine Kinase CK-MB (Mass) Troponin I Total Protein 4.6 L Albumin 2.1 L Globulin 2.5 Albumin/Globulin Ratio 0.8 L Amylase Lipase TSH 3rd Generation Plasma Cortisol PM Venous Blood Potassium Urine Color Urine Clarity Urine pH Ur Specific [place] Urine Protein Urine Glucose (UA) Urine Ketones Urine Blood Urine Nitrate Urine Bilirubin Urine Urobilinogen Ur Leukocyte Esterase Urine WBC (Auto) Urine RBC (Auto) Amorphous Sediment Urine Bacteria Hyaline Casts EKG/Cardiology Studies: Cardiology / EKG Studies 05/08/18 12:30 ELECTROCARDIOGRAM DAILY Comment: Ed 12 Mode Of Transportation: STRETCHER Reason For Exam: sepsis Fingerstick Blood Sugar Results: 152 Results Reviewed to Date: Yes Review of Systems - Review of Systems Systems not reviewed;Unavailable: Language Barrier Critical Care Progress Note - Extremities/Vascular Does the Patient have a Central Venous Catheter?: No Does the Patient need a Central Venous Catheter?: No Does the Patient have a Ramires Catheter?: No Does the Patient need a Ramires Catheter?: No - Prophylaxis GI Prophylaxis GI: PPI - Prophylaxis DVT Prophylaxis DVT: Not Indicated (Eliquis) - Nutrition Nutrition: Nutrition Category Date Time Status Liquid Diet [DIET] Diets 05/08/18 Dinner Active Assessment/Plan - Assessment and Plan (Free Text) Assessment: Patient is a 72 yo male with multiple medical issues who presented with slurred speech and edematous upper extremities. Patient was found to be hypothermic, hypoglycemic, and hypotensive. 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 His AMS has improved. He has been taken off isolation. Plan: Neuro: - Delirium improved - Neuro checks CV: - Monitor vitals- hypotensive - Echo pending - IVF: D5W with Na Bicarb 8.4% @ 100 mL/hr - Eliquis 2.5 mg PO BID Pulm: - CXR: no active disease - Maintain spO2>92%- supplemental O2 PRN - Duoneb Q8H GI: - Regular diet - Albumin 25% x1 - Protonix 40 mg PO daily - CMP daily Renal: - s/p R kidney transplant - CMP daily - Replete electrolytes PRN - Stress dose steroids- Solu-medrol 60 mg IV Q8H - Tacrolimus 5 mg PO BID - Tacrolimus slevel pending - Nephrology consulted (Ghanshyam) Endo: - Maintain euglycemia - Hypoglycemia protocol - Accuchecks ACHS with low dose regular ISS - TSH 42.6 - Thyroid studies pending - Synthroid 200 mcg IV daily - PM cortisol wnl (2) - On dexamethasone 0.75 mg PO QHS at home - Endocrinology consulted (Acosta) Heme: - Elevated coags - Anemic at BL - Monitor H&H - Folic acid 1 mg PO daily ID: - Isolation discontinued - Temp 88.6 on admission, improved to 97.2 - WBC, lactate wnl- 25 bands - Active warming protocol - Urine Cx no growth - Blood Cx pending - HIV pending - Continue Rifampin 600 mg PO daily - Continue Isoniazid 300 mg PO daily - Continue Ethambutol 1200 mg PO TTS - Continue Vit B6 50 mg PO daily - Aztreonam 1 g IV Q8H - Daptomycin 630 mg IV Q48H - ID consulted (Charity) PPx: VTE: Eliquis 2.5 mg PO BID GI: PTX 40 mg PO daily PT/OT/ST Code status: DNR/DNI (POLST) Case discussed with attending, Dr. Booth. PGY-1 Natasha Khan D.O. <Sarthak Booth S - Last Filed: 05/09/18 18:14> CCU Objective - Vital Signs / Intake & Output Vital Signs (Last 4 hours): Vital Signs Pulse Resp BP Pulse Ox 05/09/18 17:00 77 23 104/77 100 05/09/18 15:09 83 19 75/27 L 100 05/09/18 15:00 83 21 100 05/09/18 14:35 83 20 61/28 L 100 05/09/18 14:33 80 21 55/25 L 100 05/09/18 14:30 79 23 100 Intake and Output (Last 8hrs): Intake & Output 05/09/18 05/09/18 05/09/18 06:59 14:59 22:59 Intake Total 1145 1890 100 Output Total 400 0 0 Balance 745 1890 100 Weight 109 lb Intake: Intake, IV Amount 1145 1510 100 Right 200 Right PICC 675 350 100 Right PICC Distal Port 270 1160 0 Oral 380 Output: Urine 400 Urine, Voided 400 Emesis 0 0 Other: # Voids Urine, Voided 0 0 # Bowel Movements 1 0 0 - Medications Active Medications: Active Medications Generic Name Dose Route Start Last Admin Trade Name Freq PRN Reason Stop Dose Admin Albuterol/Ipratropium 3 ml 05/09/18 00:00 05/09/18 07:30 Duoneb 3 Mg/0.5 Mg (3 Ml) Ud INH 3 ml RQ8 FAHEEM Administration Apixaban 2.5 mg 05/08/18 18:00 05/09/18 10:28 Eliquis PO 2.5 mg BID FAHEEM Administration Dextrose 0 ml 05/08/18 17:53 Dextrose 50% Inj IV STAT PRN Hypoglycemia Protocol Protocol Dextrose 0 gm 05/08/18 17:53 Glutose 15 PO ONCE PRN Hypoglycemia Protocol Protocol Ethambutol HCl 1,200 mg 05/09/18 10:00 05/09/18 10:41 Myambutol PO 1,200 mg TTS FAHEEM Administration Protocol Folic Acid 1 mg 05/09/18 10:00 05/09/18 10:27 Folic Acid PO 1 mg DAILY FAHEEM Administration Glucagon 0 mg 05/08/18 17:53 Glucagen Diagnostic Kit IM STAT PRN Hypoglycemia Protocol Protocol Aztreonam 1 gm/ Sodium 100 mls @ 200 mls/hr 05/08/18 22:00 05/09/18 13:08 Chloride IVPB 200 mls/hr Q8H FAHEEM Administration Protocol Dextrose 1,000 mls @ 0 mls/hr 05/08/18 17:53 Dextrose 5% In Water 1000 Ml IV .Q0M PRN Hypoglycemia Protocol Protocol Per Protocol Sodium Bicarbonate 150 meq/ 1,150 mls @ 100 mls/hr 05/09/18 11:45 05/09/18 13:08 Dextrose IV 100 mls/hr .[id number] FAHEEM Administration Daptomycin 300 mg/ Sodium 100 mls @ 200 mls/hr 05/10/18 18:30 Chloride IV Q48H FAHEEM Norepinephrine Bitartrate 4 mg 254 mls @ 19.05 mls/hr 05/09/18 15:13 05/09/18 17:00 / Sodium Chloride IV 4 mcg/min .[id number] PRN 15.24 mls/hr TITRATE PER MD ORDER Administration Protocol 5 MCG/MIN Insulin Human Regular 0 unit 05/09/18 16:30 05/09/18 18:02 Novolin R SC 2 u ACHS FAHEEM Administration Protocol Isoniazid 300 mg 05/09/18 10:00 05/09/18 10:27 Niazid PO 300 mg DAILY FAHEEM Administration Protocol Levothyroxine Sodium 200 mcg 05/10/18 10:00 Levothyroxine IVP DAILY@0630 FAHEEM Methylprednisolone 60 mg 05/09/18 14:00 05/09/18 13:20 Solu-Medrol IVP 60 mg Q8H FAHEEM Administration Pantoprazole Sodium 40 mg 05/09/18 10:00 05/09/18 10:28 Protonix Ec Tab PO 40 mg DAILY FAHEEM Administration Pyridoxine HCl 50 mg 05/09/18 10:00 05/09/18 10:28 Vitamin B6 50 Mg Tab PO 50 mg DAILY FAHEEM Administration Rifampin 600 mg 05/09/18 10:00 05/09/18 10:28 Rifampin Cap PO 600 mg DAILY FAHEEM Administration Protocol Tacrolimus 5 mg 05/08/18 18:00 05/09/18 10:29 Prograf PO 5 mg BID FAHEEM Administration - Patient Studies Lab Studies: Microbiology Studies 05/08/18 12:50 Blood Culture - Preliminary Blood NO GROWTH AFTER 24 HOURS 05/08/18 12:20 Blood Culture - Preliminary Blood NO GROWTH AFTER 24 HOURS 05/08/18 13:35 Urine Culture - Final Urine No Growth (<1,000 CFU/ML) Lab Studies 05/09/18 05/09/18 05/09/18 Range/Units 16:37 11:13 10:51 WBC (4.8-10.8) K/uL RBC (4.40-5.90) Mil/uL Hgb (12.0-18.0) g/dL Hct (35.0-51.0) % MCV (80.0-94.0) fL MCH (27.0-31.0) pg MCHC (33.0-37.0) g/dL RDW (11.5-14.5) % Plt Count (130-400) K/uL MPV (7.2-11.7) fL Neut % (Auto) (50.0-75.0) % Lymph % (Auto) (20.0-40.0) % Carroll % (Auto) (0.0-10.0) % Eos % (Auto) (0.0-4.0) % Baso % (Auto) (0.0-2.0) % Neut # (Auto) (1.8-7.0) K/uL Lymph # (Auto) (1.0-4.3) K/uL Carroll # (Auto) (0.0-0.8) K/uL Eos # (Auto) (0.0-0.7) K/uL Baso # (Auto) (0.0-0.2) K/uL Neutrophils % (Manual) (50-75) % Band Neutrophils % (0-2) % Lymphocytes % (Manual) (20-40) % Monocytes % (Manual) (0-10) % Nucleated RBC % (0-0) % Platelet Estimate (NORMAL) Polychromasia Hypochromasia (manual) Anisocytosis (manual) Ovalocytes Sunshine Cells Sodium (132-148) mmol/L Potassium (3.6-5.2) mmol/L Chloride (98-107) mmol/L Carbon Dioxide (22-30) mmol/L Anion Gap (10-20) BUN (9-20) mg/dL Creatinine (0.8-1.5) mg/dL Est GFR ( Amer) Est GFR (Non-Af Amer) POC Glucose (mg/dL) 224 H 209 H (65-110) mg/dL Random Glucose (75-110) mg/dL Calcium (8.6-10.4) mg/dl Phosphorus (2.5-4.5) mg/dL Magnesium (1.6-2.3) mg/dL Total Bilirubin (0.2-1.3) mg/dL AST (17-59) U/L ALT (21-72) U/L Alkaline Phosphatase (38-126) U/L Total Protein (6.3-8.3) g/dL Albumin (3.5-5.0) g/dL Globulin (2.2-3.9) gm/dL Albumin/Globulin Ratio (1.0-2.1) HIV 1&2 Antibody Screen Negative (NEGATIVE) 05/09/18 05/09/18 05/09/18 Range/Units 07:23 06:28 06:28 WBC 6.1 (4.8-10.8) K/uL RBC 2.96 L (4.40-5.90) Mil/uL Hgb 8.8 L D (12.0-18.0) g/dL Hct 26.7 L (35.0-51.0) % MCV 90.2 (80.0-94.0) fL MCH 29.8 (27.0-31.0) pg MCHC 33.0 (33.0-37.0) g/dL RDW 25.3 H (11.5-14.5) % Plt Count 183 (130-400) K/uL MPV 8.2 (7.2-11.7) fL Neut % (Auto) 90.7 H (50.0-75.0) % Lymph % (Auto) 7.7 L (20.0-40.0) % Carroll % (Auto) 0.9 (0.0-10.0) % Eos % (Auto) 0.1 (0.0-4.0) % Baso % (Auto) 0.6 (0.0-2.0) % Neut # (Auto) 5.6 (1.8-7.0) K/uL Lymph # (Auto) 0.5 L (1.0-4.3) K/uL Carroll # (Auto) 0.1 (0.0-0.8) K/uL Eos # (Auto) 0.0 (0.0-0.7) K/uL Baso # (Auto) 0.0 (0.0-0.2) K/uL Neutrophils % (Manual) 65 (50-75) % Band Neutrophils % 25 H* (0-2) % Lymphocytes % (Manual) 9 L (20-40) % Monocytes % (Manual) 1 (0-10) % Nucleated RBC % 1 H (0-0) % Platelet Estimate Normal (NORMAL) Polychromasia Slight Hypochromasia (manual) Slight Anisocytosis (manual) Moderate Ovalocytes Slight David Cells Moderate Sodium 137 (132-148) mmol/L Potassium 4.9 (3.6-5.2) mmol/L Chloride 108 H (98-107) mmol/L Carbon Dioxide 14 L (22-30) mmol/L Anion Gap 20 (10-20) BUN 23 H (9-20) mg/dL Creatinine 2.2 H (0.8-1.5) mg/dL Est GFR ( Amer) 36 Est GFR (Non-Af Amer) 30 POC Glucose (mg/dL) 197 H (65-110) mg/dL Random Glucose 159 H (75-110) mg/dL Calcium 7.4 L (8.6-10.4) mg/dl Phosphorus 6.8 H (2.5-4.5) mg/dL Magnesium 1.3 L (1.6-2.3) mg/dL Total Bilirubin 0.2 (0.2-1.3) mg/dL AST 25 (17-59) U/L ALT 19 L D (21-72) U/L Alkaline Phosphatase 58 (38-126) U/L Total Protein 4.6 L (6.3-8.3) g/dL Albumin 2.1 L (3.5-5.0) g/dL Globulin 2.5 (2.2-3.9) gm/dL Albumin/Globulin Ratio 0.8 L (1.0-2.1) HIV 1&2 Antibody Screen (NEGATIVE) 05/08/18 05/08/18 05/08/18 Range/Units 21:15 18:37 18:34 WBC (4.8-10.8) K/uL RBC (4.40-5.90) Mil/uL Hgb (12.0-18.0) g/dL Hct (35.0-51.0) % MCV (80.0-94.0) fL MCH (27.0-31.0) pg MCHC (33.0-37.0) g/dL RDW (11.5-14.5) % Plt Count (130-400) K/uL MPV (7.2-11.7) fL Neut % (Auto) (50.0-75.0) % Lymph % (Auto) (20.0-40.0) % Carroll % (Auto) (0.0-10.0) % Eos % (Auto) (0.0-4.0) % Baso % (Auto) (0.0-2.0) % Neut # (Auto) (1.8-7.0) K/uL Lymph # (Auto) (1.0-4.3) K/uL Carroll # (Auto) (0.0-0.8) K/uL Eos # (Auto) (0.0-0.7) K/uL Baso # (Auto) (0.0-0.2) K/uL Neutrophils % (Manual) (50-75) % Band Neutrophils % (0-2) % Lymphocytes % (Manual) (20-40) % Monocytes % (Manual) (0-10) % Nucleated RBC % (0-0) % Platelet Estimate (NORMAL) Polychromasia Hypochromasia (manual) Anisocytosis (manual) Ovalocytes David Cells Sodium (132-148) mmol/L Potassium (3.6-5.2) mmol/L Chloride (98-107) mmol/L Carbon Dioxide (22-30) mmol/L Anion Gap (10-20) BUN (9-20) mg/dL Creatinine (0.8-1.5) mg/dL Est GFR ( Amer) Est GFR (Non-Af Amer) POC Glucose (mg/dL) 152 H 224 H 234 H (65-110) mg/dL Random Glucose (75-110) mg/dL Calcium (8.6-10.4) mg/dl Phosphorus (2.5-4.5) mg/dL Magnesium (1.6-2.3) mg/dL Total Bilirubin (0.2-1.3) mg/dL AST (17-59) U/L ALT (21-72) U/L Alkaline Phosphatase (38-126) U/L Total Protein (6.3-8.3) g/dL Albumin (3.5-5.0) g/dL Globulin (2.2-3.9) gm/dL Albumin/Globulin Ratio (1.0-2.1) HIV 1&2 Antibody Screen (NEGATIVE) 05/08/18 05/08/18 Range/Units 17:51 17:48 WBC (4.8-10.8) K/uL RBC (4.40-5.90) Mil/uL Hgb (12.0-18.0) g/dL Hct (35.0-51.0) % MCV (80.0-94.0) fL MCH (27.0-31.0) pg MCHC (33.0-37.0) g/dL RDW (11.5-14.5) % Plt Count (130-400) K/uL MPV (7.2-11.7) fL Neut % (Auto) (50.0-75.0) % Lymph % (Auto) (20.0-40.0) % Carroll % (Auto) (0.0-10.0) % Eos % (Auto) (0.0-4.0) % Baso % (Auto) (0.0-2.0) % Neut # (Auto) (1.8-7.0) K/uL Lymph # (Auto) (1.0-4.3) K/uL Carroll # (Auto) (0.0-0.8) K/uL Eos # (Auto) (0.0-0.7) K/uL Baso # (Auto) (0.0-0.2) K/uL Neutrophils % (Manual) (50-75) % Band Neutrophils % (0-2) % Lymphocytes % (Manual) (20-40) % Monocytes % (Manual) (0-10) % Nucleated RBC % (0-0) % Platelet Estimate (NORMAL) Polychromasia Hypochromasia (manual) Anisocytosis (manual) Ovalocytes Sunshine Cells Sodium (132-148) mmol/L Potassium (3.6-5.2) mmol/L Chloride (98-107) mmol/L Carbon Dioxide (22-30) mmol/L Anion Gap (10-20) BUN (9-20) mg/dL Creatinine (0.8-1.5) mg/dL Est GFR ( Amer) Est GFR (Non-Af Amer) POC Glucose (mg/dL) 20 L* 20 L* (65-110) mg/dL Random Glucose (75-110) mg/dL Calcium (8.6-10.4) mg/dl Phosphorus (2.5-4.5) mg/dL Magnesium (1.6-2.3) mg/dL Total Bilirubin (0.2-1.3) mg/dL AST (17-59) U/L ALT (21-72) U/L Alkaline Phosphatase (38-126) U/L Total Protein (6.3-8.3) g/dL Albumin (3.5-5.0) g/dL Globulin (2.2-3.9) gm/dL Albumin/Globulin Ratio (1.0-2.1) HIV 1&2 Antibody Screen (NEGATIVE) Laboratory Results - last 24 hr 05/08/18 05/08/18 05/08/18 17:48 17:51 18:34 WBC RBC Hgb Hct MCV MCH MCHC RDW Plt Count MPV Neut % (Auto) Lymph % (Auto) Carroll % (Auto) Eos % (Auto) Baso % (Auto) Neut # (Auto) Lymph # (Auto) Carroll # (Auto) Eos # (Auto) Baso # (Auto) Neutrophils % (Manual) Band Neutrophils % Lymphocytes % (Manual) Monocytes % (Manual) Nucleated RBC % Platelet Estimate Polychromasia Hypochromasia (manual) Anisocytosis (manual) Ovalocytes David Cells Sodium Potassium Chloride Carbon Dioxide Anion Gap BUN Creatinine Est GFR ( Amer) Est GFR (Non-Af Amer) POC Glucose (mg/dL) 20 L* 20 L* 234 H Random Glucose Calcium Phosphorus Magnesium Total Bilirubin AST ALT Alkaline Phosphatase Total Protein Albumin Globulin Albumin/Globulin Ratio HIV 1&2 Antibody Screen 05/08/18 05/08/18 05/09/18 18:37 21:15 06:28 WBC 6.1 RBC 2.96 L Hgb 8.8 L D Hct 26.7 L MCV 90.2 MCH 29.8 MCHC 33.0 RDW 25.3 H Plt Count 183 MPV 8.2 Neut % (Auto) 90.7 H Lymph % (Auto) 7.7 L Carroll % (Auto) 0.9 Eos % (Auto) 0.1 Baso % (Auto) 0.6 Neut # (Auto) 5.6 Lymph # (Auto) 0.5 L Carroll # (Auto) 0.1 Eos # (Auto) 0.0 Baso # (Auto) 0.0 Neutrophils % (Manual) 65 Band Neutrophils % 25 H* Lymphocytes % (Manual) 9 L Monocytes % (Manual) 1 Nucleated RBC % 1 H Platelet Estimate Normal Polychromasia Slight Hypochromasia (manual) Slight Anisocytosis (manual) Moderate Ovalocytes Slight Sunshine Cells Moderate Sodium Potassium Chloride Carbon Dioxide Anion Gap BUN Creatinine Est GFR ( Amer) Est GFR (Non-Af Amer) POC Glucose (mg/dL) 224 H 152 H Random Glucose Calcium Phosphorus Magnesium Total Bilirubin AST ALT Alkaline Phosphatase Total Protein Albumin Globulin Albumin/Globulin Ratio HIV 1&2 Antibody Screen 05/09/18 05/09/18 05/09/18 06:28 07:23 10:51 WBC RBC Hgb Hct MCV MCH MCHC RDW Plt Count MPV Neut % (Auto) Lymph % (Auto) Carroll % (Auto) Eos % (Auto) Baso % (Auto) Neut # (Auto) Lymph # (Auto) Carroll # (Auto) Eos # (Auto) Baso # (Auto) Neutrophils % (Manual) Band Neutrophils % Lymphocytes % (Manual) Monocytes % (Manual) Nucleated RBC % Platelet Estimate Polychromasia Hypochromasia (manual) Anisocytosis (manual) Ovalocytes David Cells Sodium 137 Potassium 4.9 Chloride 108 H Carbon Dioxide 14 L Anion Gap 20 BUN 23 H Creatinine 2.2 H Est GFR ( Amer) 36 Est GFR (Non-Af Amer) 30 POC Glucose (mg/dL) 197 H Random Glucose 159 H Calcium 7.4 L Phosphorus 6.8 H Magnesium 1.3 L Total Bilirubin 0.2 AST 25 ALT 19 L D Alkaline Phosphatase 58 Total Protein 4.6 L Albumin 2.1 L Globulin 2.5 Albumin/Globulin Ratio 0.8 L HIV 1&2 Antibody Screen Negative 05/09/18 05/09/18 11:13 16:37 WBC RBC Hgb Hct MCV MCH MCHC RDW Plt Count MPV Neut % (Auto) Lymph % (Auto) Carroll % (Auto) Eos % (Auto) Baso % (Auto) Neut # (Auto) Lymph # (Auto) Carroll # (Auto) Eos # (Auto) Baso # (Auto) Neutrophils % (Manual) Band Neutrophils % Lymphocytes % (Manual) Monocytes % (Manual) Nucleated RBC % Platelet Estimate Polychromasia Hypochromasia (manual) Anisocytosis (manual) Ovalocytes David Cells Sodium Potassium Chloride Carbon Dioxide Anion Gap BUN Creatinine Est GFR ( Amer) Est GFR (Non-Af Amer) POC Glucose (mg/dL) 209 H 224 H Random Glucose Calcium Phosphorus Magnesium Total Bilirubin AST ALT Alkaline Phosphatase Total Protein Albumin Globulin Albumin/Globulin Ratio HIV 1&2 Antibody Screen Critical Care Progress Note - Nutrition Nutrition: Nutrition Category Date Time Status Regular Diet [DIET] Diets 05/09/18 Dinner Active Attending/Attestation - Attestation I have personally seen and examined this patient.: Yes I have fully participated in the care of the patient.: Yes I have reviewed all pertinent clinical information: Yes Notes (Text): 05/09/18 18:12 patient seen and examined in the intensive care unit. 72 yo male with multiple medical issues who presented with slurred speech and edematous upper extremities. Patient was found to be hypothermic, hypoglycemic, and hypotensive. 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 His AMS has improved. He has been taken off isolation. Patient started on Levophed for hypotension IV fluids and IV albumin On bicarbonate drip Continue present treatment for now Accu-Cheks
[2018-05-09] MEDS: Magnesium Sulfate 1 gm in D5W 1 GM/100 ML BAG IVPB SCH ×2 (08:22→08:27)
[2018-05-09 09:23] LABS: BANDS 25 % (0-2); LYMPHOCYTE 9 % (20-40); MONOCYTE 1 % (0-10); NEUTROPHIL 65 % (50-75); NUCLEATED RED BLOOD CELL 1 % (0-0); PLATELET ESTIMATE NORMAL (NORMAL); TOTAL CELLS COUNTED 100
[2018-05-09 09:24] LABS: ANISOCYTOSIS MODERATE; HYPOCHROMIC SLIGHT; OVALOCYTES SLIGHT; POLYCHROMIC SLIGHT
[2018-05-09 09:25] LABS: BURR CELLS MODERATE
[2018-05-09] MEDS ORDERED: Albumin Human 25% (12.5 gm/50 ml) IV ONE ×2 (09:50→18:50)
[2018-05-09] MEDS ORDERED: Levothyroxine 100 mcg (0.1 mg) Inj IVP SCH ×2 (10:00→10:24)
--- NOTE | 2018-05-09 10:19 | CP.PCM.CON ---
History of Present Illness - History of Present Illness History of Present Illness: 72 years old [place] male was brought to the ED at [facility] because of sudden onset of confusion and slurred speech this AM after a blood test. In the ED, he was found to be very hypothermic with a blood glucose of 20 mg%. The patient is being treated for a tuberculosis of the left knee, and an infectious endocarditis with Rifampin, Ethambutol, INH, Vancomycin, and Zosyn. He underwent an incision and drainage of the left knee by Dr Tovar about a month ago with slow healing of the surgical wound. There is no recent fever, chills, loss of appetite. But there is an appearance of an erythematous rash with exfoliation starting from the right arm and expanding to the whole body in a period of about a week. Serum TSH remains elevated, In the ED he was given D50 IV, D10W, Solumedrol and Synthroid IV. He is known to have a hypertrophic cardiomyopathy with episodes of ventricular tachycardia and insertion of an ICD. He also has a chronic atrial fibrillation, a hypertension, a hypothyroidism, a COPD, a gout, a s/p colon resection for colon cancer, a s/p renal transplant, a NIDDM. baseline creat 1.2 mg/dl pt on tacrolimus 5mg bid and prednisone 5mg daily Review of Systems - Review of Systems All systems: reviewed and no additional remarkable complaints except (as per HPI) Past Patient History - Infectious Disease Hx of Infectious Diseases: C.diff - Tetanus Immunizations Tetanus Immunization: Unknown - Past Medical History & Family History Past Medical History?: Yes - Past Social History Smoking Status: Former Smoker Chewing Tobacco Use: No Cigar Use: No Alcohol: None Drugs: Denies Home Situation {Lives}: With Family (mother) - CARDIAC Hx Atrial Fibrillation: Yes Hx Cardia Arrhythmia: Yes Hx Congestive Heart Failure: Yes Hx Hypercholesterolemia: Yes Hx Hypertension: Yes Hx Pacemaker: (Patient has a ISSH with ventricular tachycardia and an ICD.) - PULMONARY Hx Asthma: Yes Hx Bronchitis: Yes Hx Chronic Obstructive Pulmonary Disease (COPD): Yes (Emphysema,) Hx Emphysema: Yes Hx Pneumonia: Yes Hx Sleep Apnea: Yes - NEUROLOGICAL Hx Neurological Disorder: Yes - HEENT Hx HEENT Problems: Yes Hx Cataracts: Yes (bilat iol,had surgery) - RENAL Hx Chronic Kidney Disease: Yes (s/p renal transplant) - ENDOCRINE/METABOLIC Hx Hypothyroidism: Yes - HEMATOLOGICAL/ONCOLOGICAL Hx Anemia: Yes - INTEGUMENTARY Hx Dermatological Problems: Yes (sun sentivity) Hx Eczema: Yes - MUSCULOSKELETAL/RHEUMATOLOGICAL Hx Arthritis: Yes (Gout) - GASTROINTESTINAL Hx Gastritis: Yes - GENITOURINARY/GYNECOLOGICAL Hx Genitourinary Disorders: No - PSYCHIATRIC Hx Substance Use: No - SURGICAL HISTORY Hx Surgeries: Yes (Hemicolectomy for colon cancer) Hx Angiogram: Yes (ICD insertion for ventricular tachycardia.) Hx Cataract Extraction: Yes Hx Cardiac Catheterization: Yes Hx Kidney Transplant: Yes () Other/Comment: THYROID SURGERY-2004. Hx of perforated bowel corrected with surgery. AICD - ANESTHESIA Hx Anesthesia: Yes Hx Anesthesia Reactions: No Hx Malignant Hyperthermia: No Meds Allergies/Adverse Reactions: Allergies Allergy/AdvReac Type Severity Reaction Status Date / Time metoprolol Allergy Intermediate ITCHING Verified 02/01/18 11:29 - Medications Medications: Current Medications Albuterol/Ipratropium (Duoneb 3 Mg/0.5 Mg (3 Ml) Ud) 3 ml INH RQ8 FAHEEM Last Admin: 05/09/18 07:30 Dose: 3 ml Apixaban (Eliquis) 2.5 mg PO BID FAHEEM Last Admin: 05/08/18 18:48 Dose: Not Given Dextrose (Dextrose 50% Inj) 0 ml IV STAT PRN; Protocol PRN Reason: Hypoglycemia Protocol Dextrose (Glutose 15) 0 gm PO ONCE PRN; Protocol PRN Reason: Hypoglycemia Protocol Ethambutol HCl (Myambutol) 1,200 mg PO TTS FAHEEM; Protocol Folic Acid (Folic Acid) 1 mg PO DAILY FAHEEM Glucagon (Glucagen Diagnostic Kit) 0 mg IM STAT PRN; Protocol PRN Reason: Hypoglycemia Protocol Aztreonam 1 gm/ Sodium (Chloride) 100 mls @ 200 mls/hr IVPB Q8H FAHEEM; Protocol Last Admin: 05/09/18 05:45 Dose: 200 mls/hr Daptomycin 630 mg/ Sodium (Chloride) 100 mls @ 200 mls/hr IV Q48H FAHEEM Stop: 05/13/18 18:31 Last Admin: 05/08/18 20:48 Dose: 200 mls/hr Dextrose (Dextrose 5% In Water 1000 Ml) 1,000 mls @ 0 mls/hr IV .Q0M PRN; Protocol PRN Reason: Hypoglycemia Protocol Dextrose (Dextrose 10% In Water) 500 mls @ 30 mls/hr IV .[id number] [facility] Last Admin: 05/08/18 18:47 Dose: 30 mls/hr Isoniazid (Niazid) 300 mg PO DAILY [facility]; Protocol Levothyroxine Sodium (Synthroid) 200 mcg PO DAILY@0630 [facility] Last Admin: 05/09/18 05:44 Dose: 200 mcg Levothyroxine Sodium (Synthroid) 100 mcg IVP DAILY [facility] Pantoprazole Sodium (Protonix Ec Tab) 40 mg PO DAILY [facility] Pyridoxine HCl (Vitamin B6 50 Mg Tab) 50 mg PO DAILY [facility] Rifampin (Rifampin Cap) 600 mg PO DAILY [facility]; Protocol Sodium Bicarbonate (Sodium Bicarbonate Tab) 650 mg PO TID [facility] Last Admin: 05/08/18 18:48 Dose: Not Given Tacrolimus (Prograf) 5 mg PO BID [facility] Last Admin: 05/08/18 18:48 Dose: Not Given Physical Exam - Constitutional Appears: Non-toxic, Older Than Stated Age, Confused, Cachectic, Chronically Ill - Head Exam Head Exam: NORMAL INSPECTION, NORMOCEPHALIC - Eye Exam Eye Exam: EOMI, Normal appearance - ENT Exam ENT Exam: Mucous Membranes Dry, Normal Exam - Respiratory Exam Respiratory Exam: Clear to Auscultation Bilateral, NORMAL BREATHING PATTERN - Cardiovascular Exam Cardiovascular Exam: Irregular Rhythm, RRR - GI/Abdominal Exam GI & Abdominal Exam: Distended, Normal Bowel Sounds, Soft - Extremities Exam Extremities exam: Positive for: normal inspection - Neurological Exam Neurological exam: Alert - Psychiatric Exam Psychiatric exam: Normal Affect, Normal Mood - Skin Skin Exam: Warm Additional comments: diffuse rash - erythematous, desquamative Results - Vital Signs Recent Vital Signs: Last Vital Signs Temp 96.5 F L 05/09/18 04:00 Pulse 89 05/09/18 06:29 Resp 19 05/09/18 06:29 BP 80/60 L 05/09/18 06:29 Pulse Ox 100 05/09/18 06:29 - Labs Result Diagrams: 05/09/18 06:28 05/09/18 06:28 Labs: Laboratory Results - last 24 hr 05/08/18 05/08/18 05/08/18 12:44 12:44 12:44 WBC 6.1 RBC 3.69 L Hgb 11.0 L Hct 33.2 L MCV 90.1 D MCH 29.8 MCHC 33.1 RDW 24.6 H Plt Count 158 D MPV 7.3 Neut % (Auto) 64.0 Lymph % (Auto) 12.4 L [place] % (Auto) 4.6 Eos % (Auto) 18.4 H Baso % (Auto) 0.6 Neut # (Auto) 3.9 Lymph # (Auto) 0.8 L [place] # (Auto) 0.3 Eos # (Auto) 1.1 H Baso # (Auto) 0.0 Neutrophils % (Manual) Band Neutrophils % Lymphocytes % (Manual) Monocytes % (Manual) Nucleated RBC % Platelet Estimate Polychromasia Hypochromasia (manual) Anisocytosis (manual) Ovalocytes [place] Cells PT 20.6 H INR 1.9 APTT 59 H pO2 VBG pH VBG pCO2 VBG HCO3 VBG Total CO2 VBG O2 Sat (Calc) VBG Base Excess VBG Potassium Glucose Lactate Sodium 132 Potassium 4.1 Chloride 100 Carbon Dioxide 20 L Anion Gap 16 BUN 23 H Creatinine 2.2 H Est GFR ( Amer) 36 Est GFR (Non-Af Amer) 30 POC Glucose (mg/dL) Random Glucose 47 L Lactic Acid Calcium 8.2 L Phosphorus 6.2 H Magnesium 1.1 L Total Bilirubin 0.4 AST 26 ALT 15 L D Alkaline Phosphatase 67 Total Creatine Kinase < 20 L CK-MB (Mass) 2.48 Troponin I 0.0740 Total Protein 5.2 L Albumin 2.3 L Globulin 2.8 Albumin/Globulin Ratio 0.8 L Amylase < 30 L Lipase < 10 L TSH 3rd Generation 42.60 H Plasma Cortisol PM Venous Blood Potassium Urine Color Urine Clarity Urine pH Ur Specific [place] Urine Protein Urine Glucose (UA) Urine Ketones Urine Blood Urine Nitrate Urine Bilirubin Urine Urobilinogen Ur Leukocyte Esterase Urine WBC (Auto) Urine RBC (Auto) Amorphous Sediment Urine Bacteria Hyaline Casts 05/08/18 05/08/18 05/08/18 12:48 13:35 14:58 WBC RBC Hgb Hct MCV MCH MCHC RDW Plt Count MPV Neut % (Auto) Lymph % (Auto) [place] % (Auto) Eos % (Auto) Baso % (Auto) Neut # (Auto) Lymph # (Auto) [place] # (Auto) Eos # (Auto) Baso # (Auto) Neutrophils % (Manual) Band Neutrophils % Lymphocytes % (Manual) Monocytes % (Manual) Nucleated RBC % Platelet Estimate Polychromasia Hypochromasia (manual) Anisocytosis (manual) Ovalocytes [place] Cells PT INR APTT pO2 44 VBG pH 7.34 VBG pCO2 39 L VBG HCO3 20.9 VBG Total CO2 22.2 VBG O2 Sat (Calc) 82.0 H VBG Base Excess -4.4 L VBG Potassium 3.8 Glucose 52 L Lactate 1.9 Sodium 131.0 L Potassium Chloride 103.0 Carbon Dioxide Anion Gap BUN Creatinine Est GFR ( Amer) Est GFR (Non-Af Amer) POC Glucose (mg/dL) Random Glucose Lactic Acid Calcium Phosphorus Magnesium Total Bilirubin AST ALT Alkaline Phosphatase Total Creatine Kinase CK-MB (Mass) Troponin I Total Protein Albumin Globulin Albumin/Globulin Ratio Amylase Lipase TSH 3rd Generation Plasma Cortisol PM 2.00 Venous Blood Potassium 3.8 Urine Color Jing Urine Clarity Clear Urine pH 5.0 Ur Specific [place] 1.019 Urine Protein Negative Urine Glucose (UA) Normal Urine Ketones Negative Urine Blood 1+ H Urine Nitrate Negative Urine Bilirubin Negative Urine Urobilinogen Normal Ur Leukocyte Esterase Neg Urine WBC (Auto) 3 Urine RBC (Auto) 8 H Amorphous Sediment Rare H Urine Bacteria Rare Hyaline Casts 0-2 05/08/18 05/08/18 05/08/18 15:18 17:48 17:51 WBC RBC Hgb Hct MCV MCH MCHC RDW Plt Count MPV Neut % (Auto) Lymph % (Auto) [place] % (Auto) Eos % (Auto) Baso % (Auto) Neut # (Auto) Lymph # (Auto) [place] # (Auto) Eos # (Auto) Baso # (Auto) Neutrophils % (Manual) Band Neutrophils % Lymphocytes % (Manual) Monocytes % (Manual) Nucleated RBC % Platelet Estimate Polychromasia Hypochromasia (manual) Anisocytosis (manual) Ovalocytes [place] Cells PT INR APTT pO2 VBG pH VBG pCO2 VBG HCO3 VBG Total CO2 VBG O2 Sat (Calc) VBG Base Excess VBG Potassium Glucose Lactate Sodium Potassium Chloride Carbon Dioxide Anion Gap BUN Creatinine Est GFR ( Amer) Est GFR (Non-Af Amer) POC Glucose (mg/dL) 20 L* 20 L* Random Glucose Lactic Acid 1.7 Calcium Phosphorus Magnesium Total Bilirubin AST ALT Alkaline Phosphatase Total Creatine Kinase CK-MB (Mass) Troponin I Total Protein Albumin Globulin Albumin/Globulin Ratio Amylase Lipase TSH 3rd Generation Plasma Cortisol PM Venous Blood Potassium Urine Color Urine Clarity Urine pH Ur Specific [place] Urine Protein Urine Glucose (UA) Urine Ketones Urine Blood Urine Nitrate Urine Bilirubin Urine Urobilinogen Ur Leukocyte Esterase Urine WBC (Auto) Urine RBC (Auto) Amorphous Sediment Urine Bacteria Hyaline Casts 05/08/18 05/08/18 05/08/18 18:34 18:37 21:15 WBC RBC Hgb Hct MCV MCH MCHC RDW Plt Count MPV Neut % (Auto) Lymph % (Auto) [place] % (Auto) Eos % (Auto) Baso % (Auto) Neut # (Auto) Lymph # (Auto) [place] # (Auto) Eos # (Auto) Baso # (Auto) Neutrophils % (Manual) Band Neutrophils % Lymphocytes % (Manual) Monocytes % (Manual) Nucleated RBC % Platelet Estimate Polychromasia Hypochromasia (manual) Anisocytosis (manual) Ovalocytes [place] Cells PT INR APTT pO2 VBG pH VBG pCO2 VBG HCO3 VBG Total CO2 VBG O2 Sat (Calc) VBG Base Excess VBG Potassium Glucose Lactate Sodium Potassium Chloride Carbon Dioxide Anion Gap BUN Creatinine Est GFR ( Amer) Est GFR (Non-Af Amer) POC Glucose (mg/dL) 234 H 224 H 152 H Random Glucose Lactic Acid Calcium Phosphorus Magnesium Total Bilirubin AST ALT Alkaline Phosphatase Total Creatine Kinase CK-MB (Mass) Troponin I Total Protein Albumin Globulin Albumin/Globulin Ratio Amylase Lipase TSH 3rd Generation Plasma Cortisol PM Venous Blood Potassium Urine Color Urine Clarity Urine pH Ur Specific [place] Urine Protein Urine Glucose (UA) Urine Ketones Urine Blood Urine Nitrate Urine Bilirubin Urine Urobilinogen Ur Leukocyte Esterase Urine WBC (Auto) Urine RBC (Auto) Amorphous Sediment Urine Bacteria Hyaline Casts 05/09/18 05/09/18 06:28 06:28 WBC 6.1 RBC 2.96 L Hgb 8.8 L D Hct 26.7 L MCV 90.2 MCH 29.8 MCHC 33.0 RDW 25.3 H Plt Count 183 MPV 8.2 Neut % (Auto) 90.7 H Lymph % (Auto) 7.7 L [place] % (Auto) 0.9 Eos % (Auto) 0.1 Baso % (Auto) 0.6 Neut # (Auto) 5.6 Lymph # (Auto) 0.5 L [place] # (Auto) 0.1 Eos # (Auto) 0.0 Baso # (Auto) 0.0 Neutrophils % (Manual) 65 Band Neutrophils % 25 H* Lymphocytes % (Manual) 9 L Monocytes % (Manual) 1 Nucleated RBC % 1 H Platelet Estimate Normal Polychromasia Slight Hypochromasia (manual) Slight Anisocytosis (manual) Moderate Ovalocytes Slight [place] Cells Moderate PT INR APTT pO2 VBG pH VBG pCO2 VBG HCO3 VBG Total CO2 VBG O2 Sat (Calc) VBG Base Excess VBG Potassium Glucose Lactate Sodium 137 Potassium 4.9 Chloride 108 H Carbon Dioxide 14 L Anion Gap 20 BUN 23 H Creatinine 2.2 H Est GFR ( Amer) 36 Est GFR (Non-Af Amer) 30 POC Glucose (mg/dL) Random Glucose 159 H Lactic Acid Calcium 7.4 L Phosphorus 6.8 H Magnesium 1.3 L Total Bilirubin 0.2 AST 25 ALT 19 L D Alkaline Phosphatase 58 Total Creatine Kinase CK-MB (Mass) Troponin I Total Protein 4.6 L Albumin 2.1 L Globulin 2.5 Albumin/Globulin Ratio 0.8 L Amylase Lipase TSH 3rd Generation Plasma Cortisol PM Venous Blood Potassium Urine Color Urine Clarity Urine pH Ur Specific [place] Urine Protein Urine Glucose (UA) Urine Ketones Urine Blood Urine Nitrate Urine Bilirubin Urine Urobilinogen Ur Leukocyte Esterase Urine WBC (Auto) Urine RBC (Auto) Amorphous Sediment Urine Bacteria Hyaline Casts Assessment & Plan (1) Acute confusion Status: Acute (2) Exfoliative dermatitis Status: Acute (3) Sepsis Status: Acute (4) CKD (chronic kidney disease) stage 3, GFR 30-59 ml/min Status: Acute (5) Chronic atrial fibrillation Status: Acute (6) DM type 2 (diabetes mellitus, type 2) Status: Acute (7) History of kidney transplant Status: Acute - Assessment and Plan (Free Text) Assessment: panculture, broad spectrum antibiotics recommend stress dose steroids maintain prograf 5mg bid check vancomycin level check tacro levels renal US when stable aggressive iv fluids, pt is volume depleted
[2018-05-09] MEDS ORDERED: Lactated Ringer's 1,000 ML IV ONE (10:21)
[2018-05-09] MEDS: Pantoprazole 40 mg EC Tab PO SCH (10:28)
[2018-05-09] MEDS ORDERED: Sodium Bicarbonate 8.4% 150 MEQ in Dextrose 5% In Water 1,000 ML IV SCH (10:30)
--- NOTE | 2018-05-09 12:29 | CARD ---
APPROVED REPORT Date of service: 05/08/2018 EKG Measurement Heart [id number] <Conclusion> Atrial-paced rhythm ST & T wave abnormality, consider lateral ischemia Abnormal ECG
--- NOTE | 2018-05-09 12:45 | CP.PCM.CON ---
History of Present Illness - History of Present Illness History of Present Illness: seen on rounds latest smears from clinic are negative x3 72-year-old male, is brought to the emergency department accompanied by family with complaints of low blood sugar and low blood pressure while at home. 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 Also has pulmonary TB being treated Code sepsis called in ER IV antibiotics started - Medical History PMH: Anemia, Arthritis (Gout), AICD endocarditis Asthma, Atrial Fibrillation, Bronchitis, CAD (CARDIOMYOPATHY), Cardia Arrhythmia, CHF, COPD (Emphysema,), Diabetes (NIDDM), Emphysema, Gastritis, Gastrointestinal Ulcer, HTN, Hypercholesterolemia, Hypothyroidism, Pneumonia, End Stage Renal Disease, Chronic Kidney Disease (s/p renal transplant), Sleep Apnea Surgical History: Comment Only: Pacemaker (Patient has a ISSH with ventricular tachycardia and an ICD.) - [place] Procedures C.A.T. SCAN OF THORAX (02/06/13) CLOSED [PERCUTANEOUS] [NEEDLE] BIOPSY OF LUNG (02/06/13) COLONOSCOPY (08/17/06) DRAINAGE OF LEFT KNEE JOINT, OPEN APPROACH, DIAGNOSTIC (02/22/18) DRAINAGE OF LEFT KNEE JOINT, PERC ENDO APPROACH, DIAGN (02/22/18) DRAINAGE OF LEFT KNEE JOINT, PERCUTANEOUS APPROACH, DIAGN (02/22/18) ENDOSC POLYPECTOMY OF LG INTEST (01/01/15) ESOPHAGOGASTRODUODENOSCOPY [EGD] W/CLOSED BIOPSY (01/01/15) EXCISION OF LEFT KNEE JOINT, PERC ENDO APPROACH (02/22/18) INSERTION OF INFUSION DEV INTO SUP VENA CAVA, PERC APPROACH (02/22/18) NAIL REMOVAL (12/31/13) PACKED CELL TRANSFUSION (01/01/15) RELEASE PERONEAL NERVE, OPEN APPROACH (02/22/18) REPAIR PERONEAL NERVE, OPEN APPROACH (02/22/18) ULTRASONOGRAPHY OF HEART WITH AORTA, TRANSESOPHAGEAL (12/27/17) Review of Systems - Review of Systems Systems not reviewed;Unavailable: Altered Mental Status All systems: reviewed and no additional remarkable complaints except - Constitutional Constitutional: Chills, Fever, Lethargy - EENT Eyes: absent: As Per HPI, Blind Spots, Blurred Vision, Change in Vision, Decreased Night Vision, Diplopia, Discharge, Dry Eye, Exophthalmos, Floaters, Irritation, Itchy Eyes, Loss of Peripheral Vision, Pain, Photophobia, Requires Corrective Lenses, Sees Flashes, Spots in Vision, Tunnel Vision, Other Visual Disturbances, Loss of Vision, Other Ears: absent: As Per HPI, Decreased Hearing, Ear Discharge, Ear Pain, Tinnitus, Abnormal Hearing, Disequilibrium, Dizziness, Other Nose/Mouth/Throat: absent: As Per HPI, Epistaxis, Nasal Congestion, Nasal Discharge, Nasal Obstruction, Nasal Trauma, Nose Pain, Post Nasal Drip, Sinus Pain, Sinus Pressure, Bleeding Gums, Change in Voice, Dental Pain, Dry Mouth, Dysphagia, Halitosis, Hoarsness, Lip Swelling, Mouth Lesions, Mouth Pain, Odynophagia, Sore Throat, Throat Swelling, Tongue Swelling, Facial Pain, Neck Pain, Neck Mass, Other - Cardiovascular Cardiovascular: As Per HPI - Respiratory Respiratory: absent: As Per HPI, Cough, Dyspnea, Hemoptysis, Dyspnea on Exertion, Wheezing, Snoring, Stridor, Pain on Inspiration, Chest Congestion, Excessive Mucous Production, Change in Mucous Color, Pain with Coughing, Other - Gastrointestinal Gastrointestinal: absent: As Per HPI, Abdominal Pain, Belching, Bloating, Change in Bowel Habits, Change in Stool Character, Coffee Ground Emesis, Constipation, Cramping, Diarrhea, Dyspepsia, Dysphagia, Early Satiety, Excessive Flatus, Fecal Incontinence, Heartburn, Hematemesis, Hematochezia, Loose Stools, Melena, Nausea, Odynophagia, Temesmus, Vomiting, Other - Genitourinary Genitourinary: As Per HPI - Musculoskeletal Musculoskeletal: As Per HPI, Arthralgias, Joint Swelling, Limited Range of Motion - Integumentary Integumentary: absent: As Per HPI, Acne, Alopecia, Bleeding Lesions, Change in Hair, Change in Nails, Change in Pigmentation, Changing Lesions, Dry Skin, Erythema, Furuncle, Hirsutism, Lesions, New Lesions, Non-Healing Lesions, Photosensitivity, Pruritus, Rash, Skin Pain, Skin Ulcer, Sores, Striae, Swel ling, Unusual Bruising, Wounds, Jaundice, Other - Neurological Neurological: Confusion - Psychiatric Psychiatric: absent: As Per HPI, Abnormal Sleep Pattern, Anhedonia, Anxiety, Auditory Hallucinations, Behavioral Changes, Change in Appetite, Change in Libido, Confusion, Depression, Difficulty Concentrating, Hallucinations, Homicidal Ideation, Hopelessness, Irritability, Memory Loss, Mood Swings, Panic Attacks, Paranoia, Suicidal Ideation, Visual Hallucinations, Tactile Hallucinations, Other - Endocrine Endocrine: absent: As Per HPI, Change in Body Appearance, Change in Libido, Cold Intolorance, Deepening of Voice, Excessive Sweating, Fatigue, Flushing, Heat Intolorance, Increase in Ring/Shoe/Hat Size, Palpitations, Polydipsia, Polyphagia, Polyuria, Other - Hematologic/Lymphatic Hematologic: absent: As Per HPI, Easy Bleeding, Easy Bruising, Lymphadenopathy, Other Past Patient History - Infectious Disease Hx of Infectious Diseases: C.diff - Tetanus Immunizations Tetanus Immunization: Unknown - Past Medical History & Family History Past Medical History?: Yes - Past Social History Smoking Status: Former Smoker Chewing Tobacco Use: No Cigar Use: No Alcohol: None Drugs: Denies Home Situation {Lives}: With Family (mother) - CARDIAC Hx Atrial Fibrillation: Yes Hx Cardia Arrhythmia: Yes Hx Congestive Heart Failure: Yes Hx Hypercholesterolemia: Yes Hx Hypertension: Yes Hx Pacemaker: (Patient has a ISSH with ventricular tachycardia and an ICD.) - PULMONARY Hx Asthma: Yes Hx Bronchitis: Yes Hx Chronic Obstructive Pulmonary Disease (COPD): Yes (Emphysema,) Hx Emphysema: Yes Hx Pneumonia: Yes Hx Sleep Apnea: Yes - NEUROLOGICAL Hx Neurological Disorder: Yes - HEENT Hx HEENT Problems: Yes Hx Cataracts: Yes (bilat iol,had surgery) - RENAL Hx Chronic Kidney Disease: Yes (s/p renal transplant) - ENDOCRINE/METABOLIC Hx Hypothyroidism: Yes - HEMATOLOGICAL/ONCOLOGICAL Hx Anemia: Yes - INTEGUMENTARY Hx Dermatological Problems: Yes (sun sentivity) Hx Eczema: Yes - MUSCULOSKELETAL/RHEUMATOLOGICAL Hx Arthritis: Yes (Gout) - GASTROINTESTINAL Hx Gastritis: Yes - GENITOURINARY/GYNECOLOGICAL Hx Genitourinary Disorders: No - PSYCHIATRIC Hx Substance Use: No - SURGICAL HISTORY Hx Surgeries: Yes (Hemicolectomy for colon cancer) Hx Angiogram: Yes (ICD insertion for ventricular tachycardia.) Hx Cataract Extraction: Yes Hx Cardiac Catheterization: Yes Hx Kidney Transplant: Yes () Other/Comment: THYROID SURGERY-2004. Hx of perforated bowel corrected with surgery. AICD - ANESTHESIA Hx Anesthesia: Yes Hx Anesthesia Reactions: No Hx Malignant Hyperthermia: No Meds Allergies/Adverse Reactions: Allergies Allergy/AdvReac Type Severity Reaction Status Date / Time metoprolol Allergy Intermediate ITCHING Verified 02/01/18 11:29 - Medications Medications: Current Medications Albuterol/Ipratropium (Duoneb 3 Mg/0.5 Mg (3 Ml) Ud) 3 ml INH RQ8 [facility] Last Admin: 05/09/18 07:30 Dose: 3 ml Apixaban (Eliquis) 2.5 mg PO BID [facility] Last Admin: 05/09/18 10:28 Dose: 2.5 mg Dextrose (Dextrose 50% Inj) 0 ml IV STAT PRN; Protocol PRN Reason: Hypoglycemia Protocol Dextrose (Glutose 15) 0 gm PO ONCE PRN; Protocol PRN Reason: Hypoglycemia Protocol Ethambutol HCl (Myambutol) 1,200 mg PO TTS [facility]; Protocol Last Admin: 05/09/18 10:41 Dose: 1,200 mg Folic Acid (Folic Acid) 1 mg PO DAILY [facility] Last Admin: 05/09/18 10:27 Dose: 1 mg Glucagon (Glucagen Diagnostic Kit) 0 mg IM STAT PRN; Protocol PRN Reason: Hypoglycemia Protocol Aztreonam 1 gm/ Sodium (Chloride) 100 mls @ 200 mls/hr IVPB Q8H [facility]; Protocol Last Admin: 05/09/18 05:45 Dose: 200 mls/hr Daptomycin 630 mg/ Sodium (Chloride) 100 mls @ 200 mls/hr IV Q48H [facility] Stop: 05/13/18 18:31 Last Admin: 05/08/18 20:48 Dose: 200 mls/hr Dextrose (Dextrose 5% In Water 1000 Ml) 1,000 mls @ 0 mls/hr IV .Q0M PRN; Protocol PRN Reason: Hypoglycemia Protocol Sodium Bicarbonate 150 meq/ (Dextrose) 1,150 mls @ 100 mls/hr IV .[id number] [facility] Methylprednisolone 60 mg/ (Sodium Chloride) 100 mls @ 200 mls/hr IVPB Q8 [facility] Isoniazid (Niazid) 300 mg PO DAILY [facility]; Protocol Last Admin: 05/09/18 10:27 Dose: 300 mg Levothyroxine Sodium (Levothyroxine) 200 mcg IVP DAILY@0630 [facility] Pantoprazole Sodium (Protonix Ec Tab) 40 mg PO DAILY [facility] Last Admin: 05/09/18 10:28 Dose: 40 mg Pyridoxine HCl (Vitamin B6 50 Mg Tab) 50 mg PO DAILY [facility] Last Admin: 05/09/18 10:28 Dose: 50 mg Rifampin (Rifampin Cap) 600 mg PO DAILY [facility]; Protocol Last Admin: 05/09/18 10:28 Dose: 600 mg Tacrolimus (Prograf) 5 mg PO BID [facility] Last Admin: 05/09/18 10:29 Dose: 5 mg Physical Exam - Constitutional Appears: Confused, Cachectic, Chronically Ill - Head Exam Head Exam: ATRAUMATIC, NORMAL INSPECTION, NORMOCEPHALIC - Eye Exam Eye Exam: PERRL - ENT Exam ENT Exam: Mucous Membranes Dry - Respiratory Exam Respiratory Exam: Decreased Breath Sounds, Rhonchi - Cardiovascular Exam Cardiovascular Exam: REGULAR RHYTHM, +S1, +S2, Systolic Murmur - GI/Abdominal Exam GI & Abdominal Exam: Diminished Bowel Sounds, Soft - Rectal Exam Rectal Exam: Deferred - Exam Exam: NORMAL INSPECTION - Extremities Exam Extremities exam: Positive for: joint swelling, tenderness - Back Exam Back exam: rash noted. absent: CVA tenderness (L), CVA tenderness (R), FULL ROM, muscle spasm, NORMAL INSPECTION, paraspinal tenderness, tenderness, vertebral tenderness - Neurological Exam Neurological exam: Altered, CN II-XII Intact, Motor Sensory Deficit - Psychiatric Exam Psychiatric exam: Depressed - Skin Skin Exam: Dry, Intact Results - Vital Signs Recent Vital Signs: Last Vital Signs Temp 97.2 F L 05/09/18 08:00 Pulse 82 05/09/18 12:31 Resp 23 05/09/18 12:31 BP 72/15 L 05/09/18 12:31 Pulse Ox 100 05/09/18 12:31 - Labs Result Diagrams: 05/09/18 06:28 05/09/18 06:28 Labs: Laboratory Results - last 24 hr 05/08/18 05/08/18 05/08/18 12:44 12:44 12:44 WBC 6.1 RBC 3.69 L Hgb 11.0 L Hct 33.2 L MCV 90.1 D MCH 29.8 MCHC 33.1 RDW 24.6 H Plt Count 158 D MPV 7.3 Neut % (Auto) 64.0 Lymph % (Auto) 12.4 L [place] % (Auto) 4.6 Eos % (Auto) 18.4 H Baso % (Auto) 0.6 Neut # (Auto) 3.9 Lymph # (Auto) 0.8 L [place] # (Auto) 0.3 Eos # (Auto) 1.1 H Baso # (Auto) 0.0 Neutrophils % (Manual) Band Neutrophils % Lymphocytes % (Manual) Monocytes % (Manual) Nucleated RBC % Platelet Estimate Polychromasia Hypochromasia (manual) Anisocytosis (manual) Ovalocytes [place] Cells PT 20.6 H INR 1.9 APTT 59 H pO2 VBG pH VBG pCO2 VBG HCO3 VBG Total CO2 VBG O2 Sat (Calc) VBG Base Excess VBG Potassium Glucose Lactate Sodium 132 Potassium 4.1 Chloride 100 Carbon Dioxide 20 L Anion Gap 16 BUN 23 H Creatinine 2.2 H Est GFR ( Amer) 36 Est GFR (Non-Af Amer) 30 POC Glucose (mg/dL) Random Glucose 47 L Lactic Acid Calcium 8.2 L Phosphorus 6.2 H Magnesium 1.1 L Total Bilirubin 0.4 AST 26 ALT 15 L D Alkaline Phosphatase 67 Total Creatine Kinase < 20 L CK-MB (Mass) 2.48 Troponin I 0.0740 Total Protein 5.2 L Albumin 2.3 L Globulin 2.8 Albumin/Globulin Ratio 0.8 L Amylase < 30 L Lipase < 10 L TSH 3rd Generation 42.60 H Plasma Cortisol PM Venous Blood Potassium Urine Color Urine Clarity Urine pH Ur Specific [place] Urine Protein Urine Glucose (UA) Urine Ketones Urine Blood Urine Nitrate Urine Bilirubin Urine Urobilinogen Ur Leukocyte Esterase Urine WBC (Auto) Urine RBC (Auto) Amorphous Sediment Urine Bacteria Hyaline Casts 05/08/18 05/08/18 05/08/18 12:48 13:35 14:58 WBC RBC Hgb Hct MCV MCH MCHC RDW Plt Count MPV Neut % (Auto) Lymph % (Auto) [place] % (Auto) Eos % (Auto) Baso % (Auto) Neut # (Auto) Lymph # (Auto) [place] # (Auto) Eos # (Auto) Baso # (Auto) Neutrophils % (Manual) Band Neutrophils % Lymphocytes % (Manual) Monocytes % (Manual) Nucleated RBC % Platelet Estimate Polychromasia Hypochromasia (manual) Anisocytosis (manual) Ovalocytes David Cells PT INR APTT pO2 44 VBG pH 7.34 VBG pCO2 39 L VBG HCO3 20.9 VBG Total CO2 22.2 VBG O2 Sat (Calc) 82.0 H VBG Base Excess -4.4 L VBG Potassium 3.8 Glucose 52 L Lactate 1.9 Sodium 131.0 L Potassium Chloride 103.0 Carbon Dioxide Anion Gap BUN Creatinine Est GFR ( Amer) Est GFR (Non-Af Amer) POC Glucose (mg/dL) Random Glucose Lactic Acid Calcium Phosphorus Magnesium Total Bilirubin AST ALT Alkaline Phosphatase Total Creatine Kinase CK-MB (Mass) Troponin I Total Protein Albumin Globulin Albumin/Globulin Ratio Amylase Lipase TSH 3rd Generation Plasma Cortisol PM 2.00 Venous Blood Potassium 3.8 Urine Color Jing Urine Clarity Clear Urine pH 5.0 Ur Specific [place] 1.019 Urine Protein Negative Urine Glucose (UA) Normal Urine Ketones Negative Urine Blood 1+ H Urine Nitrate Negative Urine Bilirubin Negative Urine Urobilinogen Normal Ur Leukocyte Esterase Neg Urine WBC (Auto) 3 Urine RBC (Auto) 8 H Amorphous Sediment Rare H Urine Bacteria Rare Hyaline Casts 0-2 05/08/18 05/08/18 05/08/18 15:18 17:48 17:51 WBC RBC Hgb Hct MCV MCH MCHC RDW Plt Count MPV Neut % (Auto) Lymph % (Auto) [place] % (Auto) Eos % (Auto) Baso % (Auto) Neut # (Auto) Lymph # (Auto) [place] # (Auto) Eos # (Auto) Baso # (Auto) Neutrophils % (Manual) Band Neutrophils % Lymphocytes % (Manual) Monocytes % (Manual) Nucleated RBC % Platelet Estimate Polychromasia Hypochromasia (manual) Anisocytosis (manual) Ovalocytes [place] Cells PT INR APTT pO2 VBG pH VBG pCO2 VBG HCO3 VBG Total CO2 VBG O2 Sat (Calc) VBG Base Excess VBG Potassium Glucose Lactate Sodium Potassium Chloride Carbon Dioxide Anion Gap BUN Creatinine Est GFR ( Amer) Est GFR (Non-Af Amer) POC Glucose (mg/dL) 20 L* 20 L* Random Glucose Lactic Acid 1.7 Calcium Phosphorus Magnesium Total Bilirubin AST ALT Alkaline Phosphatase Total Creatine Kinase CK-MB (Mass) Troponin I Total Protein Albumin Globulin Albumin/Globulin Ratio Amylase Lipase TSH 3rd Generation Plasma Cortisol PM Venous Blood Potassium Urine Color Urine Clarity Urine pH Ur Specific [place] Urine Protein Urine Glucose (UA) Urine Ketones Urine Blood Urine Nitrate Urine Bilirubin Urine Urobilinogen Ur Leukocyte Esterase Urine WBC (Auto) Urine RBC (Auto) Amorphous Sediment Urine Bacteria Hyaline Casts 05/08/18 05/08/18 05/08/18 18:34 18:37 21:15 WBC RBC Hgb Hct MCV MCH MCHC RDW Plt Count MPV Neut % (Auto) Lymph % (Auto) [place] % (Auto) Eos % (Auto) Baso % (Auto) Neut # (Auto) Lymph # (Auto) [place] # (Auto) Eos # (Auto) Baso # (Auto) Neutrophils % (Manual) Band Neutrophils % Lymphocytes % (Manual) Monocytes % (Manual) Nucleated RBC % Platelet Estimate Polychromasia Hypochromasia (manual) Anisocytosis (manual) Ovalocytes David Cells PT INR APTT pO2 VBG pH VBG pCO2 VBG HCO3 VBG Total CO2 VBG O2 Sat (Calc) VBG Base Excess VBG Potassium Glucose Lactate Sodium Potassium Chloride Carbon Dioxide Anion Gap BUN Creatinine Est GFR ( Amer) Est GFR (Non-Af Amer) POC Glucose (mg/dL) 234 H 224 H 152 H Random Glucose Lactic Acid Calcium Phosphorus Magnesium Total Bilirubin AST ALT Alkaline Phosphatase Total Creatine Kinase CK-MB (Mass) Troponin I Total Protein Albumin Globulin Albumin/Globulin Ratio Amylase Lipase TSH 3rd Generation Plasma Cortisol PM Venous Blood Potassium Urine Color Urine Clarity Urine pH Ur Specific [place] Urine Protein Urine Glucose (UA) Urine Ketones Urine Blood Urine Nitrate Urine Bilirubin Urine Urobilinogen Ur Leukocyte Esterase Urine WBC (Auto) Urine RBC (Auto) Amorphous Sediment Urine Bacteria Hyaline Casts 05/09/18 05/09/18 05/09/18 06:28 06:28 07:23 WBC 6.1 RBC 2.96 L Hgb 8.8 L D Hct 26.7 L MCV 90.2 MCH 29.8 MCHC 33.0 RDW 25.3 H Plt Count 183 MPV 8.2 Neut % (Auto) 90.7 H Lymph % (Auto) 7.7 L [place] % (Auto) 0.9 Eos % (Auto) 0.1 Baso % (Auto) 0.6 Neut # (Auto) 5.6 Lymph # (Auto) 0.5 L [place] # (Auto) 0.1 Eos # (Auto) 0.0 Baso # (Auto) 0.0 Neutrophils % (Manual) 65 Band Neutrophils % 25 H* Lymphocytes % (Manual) 9 L Monocytes % (Manual) 1 Nucleated RBC % 1 H Platelet Estimate Normal Polychromasia Slight Hypochromasia (manual) Slight Anisocytosis (manual) Moderate Ovalocytes Slight [place] Cells Moderate PT INR APTT pO2 VBG pH VBG pCO2 VBG HCO3 VBG Total CO2 VBG O2 Sat (Calc) VBG Base Excess VBG Potassium Glucose Lactate Sodium 137 Potassium 4.9 Chloride 108 H Carbon Dioxide 14 L Anion Gap 20 BUN 23 H Creatinine 2.2 H Est GFR ( Amer) 36 Est GFR (Non-Af Amer) 30 POC Glucose (mg/dL) 197 H Random Glucose 159 H Lactic Acid Calcium 7.4 L Phosphorus 6.8 H Magnesium 1.3 L Total Bilirubin 0.2 AST 25 ALT 19 L D Alkaline Phosphatase 58 Total Creatine Kinase CK-MB (Mass) Troponin I Total Protein 4.6 L Albumin 2.1 L Globulin 2.5 Albumin/Globulin Ratio 0.8 L Amylase Lipase TSH 3rd Generation Plasma Cortisol PM Venous Blood Potassium Urine Color Urine Clarity Urine pH Ur Specific [place] Urine Protein Urine Glucose (UA) Urine Ketones Urine Blood Urine Nitrate Urine Bilirubin Urine Urobilinogen Ur Leukocyte Esterase Urine WBC (Auto) Urine RBC (Auto) Amorphous Sediment Urine Bacteria Hyaline Casts 05/09/18 11:13 WBC RBC Hgb Hct MCV MCH MCHC RDW Plt Count MPV Neut % (Auto) Lymph % (Auto) [place] % (Auto) Eos % (Auto) Baso % (Auto) Neut # (Auto) Lymph # (Auto) [place] # (Auto) Eos # (Auto) Baso # (Auto) Neutrophils % (Manual) Band Neutrophils % Lymphocytes % (Manual) Monocytes % (Manual) Nucleated RBC % Platelet Estimate Polychromasia Hypochromasia (manual) Anisocytosis (manual) Ovalocytes [place] Cells PT INR APTT pO2 VBG pH VBG pCO2 VBG HCO3 VBG Total CO2 VBG O2 Sat (Calc) VBG Base Excess VBG Potassium Glucose Lactate Sodium Potassium Chloride Carbon Dioxide Anion Gap BUN Creatinine Est GFR ( Amer) Est GFR (Non-Af Amer) POC Glucose (mg/dL) 209 H Random Glucose Lactic Acid Calcium Phosphorus Magnesium Total Bilirubin AST ALT Alkaline Phosphatase Total Creatine Kinase CK-MB (Mass) Troponin I Total Protein Albumin Globulin Albumin/Globulin Ratio Amylase Lipase TSH 3rd Generation Plasma Cortisol PM Venous Blood Potassium Urine Color Urine Clarity Urine pH Ur Specific [place] Urine Protein Urine Glucose (UA) Urine Ketones Urine Blood Urine Nitrate Urine Bilirubin Urine Urobilinogen Ur Leukocyte Esterase Urine WBC (Auto) Urine RBC (Auto) Amorphous Sediment Urine Bacteria Hyaline Casts Assessment & Plan (1) Acute confusion Status: Acute (2) Exfoliative dermatitis Status: Acute (3) Hypothermia Status: Acute (4) Sepsis Status: Acute (5) Anemia Status: Acute (6) Bronchiectasis with acute exacerbation Status: Acute (7) CKD (chronic kidney disease) stage 3, GFR 30-59 ml/min Status: Acute (8) COPD bronchitis Status: Acute (9) Cardiomyopathy Status: Acute (10) Chronic atrial fibrillation Status: Acute (11) Chronic kidney disease, stage III (moderate) Status: Acute (12) DM type 2 (diabetes mellitus, type 2) Status: Acute (13) Gout Status: Acute (14) HTN (hypertension), benign Status: Acute (15) History of kidney transplant Status: Acute (16) Kidney transplant recipient Status: Acute (17) SIRS (systemic inflammatory response syndrome) Status: Acute (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 - Assessment and Plan (Free Text) Assessment: panculture start broad spectrum antibiotics
[2018-05-09] MEDS: Sodium Bicarbonate 8.4% 150 MEQ in Dextrose 5% In Water 1,000 ML IV SCH ×2 (13:08→23:15)
[2018-05-09] MEDS: MethylPREDNISolone 40 mg Vial IVP SCH ×2 (13:20→21:42)
[2018-05-09] MEDS ORDERED: methylPREDNISolone 60 MG in Sodium Chloride 0.9% 100 ML IVPB SCH (14:00)
--- NOTE | 2018-05-09 14:15 | CP.PCM.PN ---
Subjective - Date & Time of Evaluation Date of Evaluation: 05/09/18 Time of Evaluation: 14:11 - Subjective Subjective: Patient much less confused and with very little slurring of the speech. Still hypothermic. On IV Azactam and Cubicin, IV Solumedrol, IV NS, and IV D10W. Objective - Vital Signs/Intake and Output Vital Signs (last 24 hours): Temp Pulse Resp BP Pulse Ox 97.2 F L 82 23 72/15 L 100 05/09/18 08:00 05/09/18 12:31 05/09/18 12:31 05/09/18 12:31 05/09/18 12:31 Intake and Output: 05/09/18 05/09/18 06:59 18:59 Intake Total 2715 1590 Output Total 400 0 Balance 2315 1590 - Medications Medications: Current Medications Albuterol/Ipratropium (Duoneb 3 Mg/0.5 Mg (3 Ml) Ud) 3 ml INH RQ8 [facility] Last Admin: 05/09/18 07:30 Dose: 3 ml Apixaban (Eliquis) 2.5 mg PO BID [facility] Last Admin: 05/09/18 10:28 Dose: 2.5 mg Dextrose (Dextrose 50% Inj) 0 ml IV STAT PRN; Protocol PRN Reason: Hypoglycemia Protocol Dextrose (Glutose 15) 0 gm PO ONCE PRN; Protocol PRN Reason: Hypoglycemia Protocol Ethambutol HCl (Myambutol) 1,200 mg PO TTS [facility]; Protocol Last Admin: 05/09/18 10:41 Dose: 1,200 mg Folic Acid (Folic Acid) 1 mg PO DAILY [facility] Last Admin: 05/09/18 10:27 Dose: 1 mg Glucagon (Glucagen Diagnostic Kit) 0 mg IM STAT PRN; Protocol PRN Reason: Hypoglycemia Protocol Aztreonam 1 gm/ Sodium (Chloride) 100 mls @ 200 mls/hr IVPB Q8H [facility]; Protocol Last Admin: 05/09/18 13:08 Dose: 200 mls/hr Daptomycin 630 mg/ Sodium (Chloride) 100 mls @ 200 mls/hr IV Q48H [facility] Stop: 05/13/18 18:31 Last Admin: 05/08/18 20:48 Dose: 200 mls/hr Dextrose (Dextrose 5% In Water 1000 Ml) 1,000 mls @ 0 mls/hr IV .Q0M PRN; Protocol PRN Reason: Hypoglycemia Protocol Sodium Bicarbonate 150 meq/ (Dextrose) 1,150 mls @ 100 mls/hr IV .[id number] [facility] Last Admin: 05/09/18 13:08 Dose: 100 mls/hr Insulin Human Regular (Novolin R) 0 unit SC ACHS [facility]; Protocol Isoniazid (Niazid) 300 mg PO DAILY [facility]; Protocol Last Admin: 05/09/18 10:27 Dose: 300 mg Levothyroxine Sodium (Levothyroxine) 200 mcg IVP DAILY@0630 [facility] Methylprednisolone (Solu-Medrol) 60 mg IVP Q8H [facility] Last Admin: 05/09/18 13:20 Dose: 60 mg Pantoprazole Sodium (Protonix Ec Tab) 40 mg PO DAILY [facility] Last Admin: 05/09/18 10:28 Dose: 40 mg Pyridoxine HCl (Vitamin B6 50 Mg Tab) 50 mg PO DAILY [facility] Last Admin: 05/09/18 10:28 Dose: 50 mg Rifampin (Rifampin Cap) 600 mg PO DAILY [facility]; Protocol Last Admin: 05/09/18 10:28 Dose: 600 mg Tacrolimus (Prograf) 5 mg PO BID [facility] Last Admin: 05/09/18 10:29 Dose: 5 mg - Labs Labs: 05/09/18 06:28 05/09/18 06:28 PT 20.6 SECONDS (9.7-12.2) H 05/08/18 12:44 INR 1.9 05/08/18 12:44 APTT 59 SECONDS (21-34) H 05/08/18 12:44 - Constitutional Appears: No Acute Distress, Cachectic, Chronically Ill - Head Exam Head Exam: NORMAL INSPECTION - Eye Exam Eye Exam: Normal appearance - ENT Exam ENT Exam: Normal Exam - Neck Exam Neck Exam: Normal Inspection - Respiratory Exam Respiratory Exam: Rhonchi - Cardiovascular Exam Cardiovascular Exam: Irregular Rhythm - GI/Abdominal Exam GI & Abdominal Exam: Soft, Normal Bowel Sounds - Rectal Exam Rectal Exam: Deferred - Extremities Exam Additional comments: Small open wound of the lateral aspect of the left knee, - Back Exam Back Exam: NORMAL INSPECTION - Neurological Exam Neurological Exam: Alert, Awake - Psychiatric Exam Psychiatric exam: Anxious - Skin Skin Exam: Rash Additional comments: Exfoliative erythematous rash all over his body. Assessment and Plan (1) Hypothermia Assessment & Plan: On thermal blanket. Status: Acute (2) Hypoglycemia Assessment & Plan: On Solumedrol and D10W. IV. Status: Resolved (3) Hypotension Status: Resolved (4) Acute confusion Assessment & Plan: Markedly improved. Status: Acute (5) Exfoliative dermatitis Assessment & Plan: Patient is on IV Solumedrol. Status: Acute
[2018-05-09] MEDS ORDERED: Sodium Chloride 0.9% 500 ML IV ONE (15:13)
[2018-05-09] MEDS: (Novolin R) Insulin Human Regular 100 units/ml vial SC SCH ×2 (18:02→21:39)
--- NOTE | 2018-05-09 22:19 | CON ---
DATE: 05/09/2018 LOCATION: ICU, room 10. HISTORY OF PRESENT ILLNESS: This is a 72-year-old male presenting here with altered mental status and increasing hypersomnolence, lethargy and hypothermia with hypotension and is now being referred for endocrine evaluation of persistent hypothyroidism despite high-dose levothyroxine replacement therapy given on the outpatient. PAST MEDICAL HISTORY: History of hypothyroidism, currently on levothyroxine given as 200 mcg daily; history of hypertension and dyslipidemia; history of coronary artery disease with underlying cardiomyopathy and bradyarrhythmias, currently with a pacemaker and a defibrillator in place; history of chronic obstructive lung disease with previous admissions for acute exacerbations of the same; history of chronic kidney disease with a previous renal transplant, currently on immunosuppressive therapy with progressively worsening renal insufficiency at this time; history of obstructive sleep apnea with a BiPAP mask at home; history of diffuse osteoarthritis with underlying gouty arthritis and he had a previous left knee surgical procedure with persistent pain and apparently has not been fully healed at this time and is followed closely by Dr. 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 There is also ongoing IV antibiotic management through his PICC line, receiving vancomycin and Zosyn therapy and is followed closely by Dr. Nash, his infectious disease specialist. FAMILY HISTORY: Positive for hypertension and heart disease. SOCIAL HISTORY: The patient has a supportive family. No known substance use. REVIEW OF SYSTEMS: Has been noted by the family to have increasing generalized body weakness with hypersomnolence and lethargy with episodic bouts of altered mental status and confusion. No chest pains or palpitations or PND. His oral intake has been variable with nausea and dyspepsia and vague upper abdominal pains. No recent alterations of bowel and urinary patterns. PHYSICAL EXAMINATION: GENERAL: This is an average built male, in no apparent distress. VITAL SIGNS: Blood pressure of 100/60, pulse of 70 beats per minute and regular, temperature , respirations 20. HEENT: Head: Normocephalic. Eyes: Anicteric with pink conjunctivae. Funduscopy not possible at this time. Ears, nose and throat: Otherwise normal. NECK: Supple. Thyroid gland is normal in size. No carotid bruits or any cervical adenopathy. CARDIOPULMONARY: Adynamic precordium. S1 and S2 rapid and regular. LUNGS: Clear to auscultation. ABDOMEN: Flat and soft with positive bowel sounds. EXTREMITIES: No peripheral edema. Pulses are +2 bilaterally. LABORATORY DATA: Chemistry showed a BUN of 23, sodium 132, potassium 4.1, chloride 100, CO2 of 20, glucose 47 with subsequent glucose levels of 20 to 152 mg/dL. His creatinine is 2.2. ASSESSMENT: This is a 72-year-old male with moderate hypothyroidism noted both historically, clinically and biochemically, most likely related to underlying autoimmune thyroiditis and clearly has a suboptimal therapeutic regimen as noted above. He also has a multiplicity of comorbid medical conditions with cardiac tachyarrhythmias and currently has a pacemaker and defibrillator in place with significant cardiomyopathy as noted. Moreover, he also has some ongoing treatment for tuberculosis of the bone with also intravenous antibiotic management for bacteremia as noted. PLAN OF MANAGEMENT: We will switch him over at this time to just parenteral levothyroxine replacement therapy as there is very poor absorption in the gastric mucosa of oral levothyroxine, especially with underlying moderate hypothyroidism and mucosal edema in the intestinal mucosa as noted. We will hold oral levothyroxine for now and switch him over to levothyroxine given as 200 mcg IV push daily as ordered. We will obtain thyroid antibodies which will confirm the presence of thyroid autoimmunity. We will obtain serial chemistries and supplement accordingly as needed. We will follow. Isamar Shane MD
[2018-05-10] MEDS: Albuterol-Ipratrop 3 mg / 0.5 (3 ml) UD INH SCH ×3 (00:57→16:45)
[2018-05-10] MEDS: Sodium Bicarbonate 8.4% 150 MEQ in Dextrose 5% In Water 1,000 ML IV SCH ×3 (02:04→14:49)
[2018-05-10] MEDS: MethylPREDNISolone 40 mg Vial IVP SCH ×3 (05:37→21:10)
[2018-05-10] MEDS: Aztreonam 1 GM in Sodium Chloride 0.9% 100 ML IVPB SCH ×2 (05:43→13:09)
[2018-05-10 06:14] LABS: BASO % 0.1 % (0.0-2.0); EOS % 0.3 % (0.0-4.0); HEMOGLOBIN 8.1 g/dL (12.0-18.0); LYMPH # 0.7 K/uL (1.0-4.3); LYMPH % 4.8 % (20.0-40.0); MEAN CORPUSCULAR HEMOGLOBIN 29.7 pg (27.0-31.0); MEAN CORPUSCULAR HGB CONC 33.4 g/dL (33.0-37.0); MEAN PLATELET VOLUME 8.1 fL (7.2-11.7); MONO # 0.4 K/uL (0.0-0.8); MONO % 2.6 % (0.0-10.0); NEUT # 12.5 K/uL (1.8-7.0); NEUT % 92.2 % (50.0-75.0); NRBC % 0.3 % (0.0-2.0); PLATELET COUNT 204 K/uL (130-400); RBC 2.73 Mil/uL (4.40-5.90); RED CELL DISTRIBUTION WIDTH 25.9 % (11.5-14.5); WHITE BLOOD COUNT 13.6 K/uL (4.8-10.8)
[2018-05-10 06:26] LABS: INR 2.6; PROTHROMBIN TIME 28.3 SECONDS (9.7-12.2)
[2018-05-10 06:45] LABS: ALBUMIN 2.7 g/dL (3.5-5.0); CALCIUM 6.8 mg/dl (8.6-10.4)
[2018-05-10 06:47] LABS: T4 4.19 ug/dL (5.5-11.0)
[2018-05-10] MEDS: (Novolin R) Insulin Human Regular 100 units/ml vial SC SCH ×4 (07:30→21:31)
--- NOTE | 2018-05-10 07:53 | CP.CCUPN ---
<Natasha Khan - Last Filed: 05/10/18 11:27> CCU Subjective - Physician Review Events Since Last Encounter (Free Text): 05/10/18 07:51 Levophed drip for BP control Continues to be hypothermic Subjective (Free Text): 05/10/18 07:51 Patient is seen and examined this morning. He is alert and oriented. He is visibly shivering. He states that he is not hungry or thirsty. Critical Care Time Spent (in minutes): 35 CCU Objective - Vital Signs / Intake & Output Vital Signs (Last 4 hours): Vital Signs Temp Pulse Resp BP Pulse Ox 05/10/18 07:16 85 18 113/52 L 100 05/10/18 07:00 90 12 100 05/10/18 06:32 80 18 72/50 L 100 05/10/18 06:30 81 18 100 05/10/18 06:00 80 100 05/10/18 05:32 88 115/88 100 05/10/18 05:30 87 100 05/10/18 05:02 104/31 L 05/10/18 05:01 91 H 100 05/10/18 05:00 92 H 100 05/10/18 04:46 89 83/33 L 100 05/10/18 04:42 89 77/26 L 100 05/10/18 04:31 89 100 05/10/18 04:30 84 100 05/10/18 04:00 96.1 F L 93 H 100 Intake and Output (Last 8hrs): Intake & Output 05/09/18 05/10/18 05/10/18 22:59 06:59 14:59 Intake Total 1971.5 1223.3 109.3 Output Total 0 100 100 Balance 1971.5 1123.3 9.3 Weight 110 lb 0.25 oz Intake: IV 49 79.7 Intake, IV Amount 1502.5 963.6 109.3 Right 100 100 Right PICC 800 800 100 Right PICC Distal Port 602.5 63.6 9.3 Oral 420 180 Output: Urine 100 100 Urine, Voided 100 100 Emesis 0 0 0 Other: # Voids Urine, Voided 120 # Bowel Movements 0 0 0 - Physical Exam Head: Positive for: Atraumatic, Normocephalic Pupils: Positive for: PERRL Extroacular Muscles: Positive for: EOMI Conjunctiva: Positive for: Normal Mouth: Positive for: Dry Pharnyx: Negative for: ERYTHEMA Respiratory/Chest: Positive for: Clear to Auscultation. Negative for: Respiratory Distress, Accessory Muscle Use Cardiovascular: Positive for: Regular Rate and Rhythm, Normal S1, S2. Negative for: Murmurs Abdomen: Positive for: Normal Bowel Sounds. Negative for: Tenderness, Distention, Peritoneal Signs Upper Extremity: Positive for: Swelling, Erythema, Neurovascularly Intact, Other (PICC in RUE, skin sloughing) Lower Extremity: Positive for: Erythema, Neurovascularly Intact Neurological: Positive for: GCS=15, Other (much improved from presentation yesterday) Psychiatric: Positive for: Alert, Oriented x 3. Negative for: Agitated - Medications Active Medications: Active Medications Generic Name Dose Route Start Last Admin Trade Name Freq PRN Reason Stop Dose Admin Albuterol/Ipratropium 3 ml 05/09/18 00:00 05/10/18 07:47 Duoneb 3 Mg/0.5 Mg (3 Ml) Ud INH 3 ml RQ8 FAHEEM Administration Apixaban 2.5 mg 05/08/18 18:00 05/09/18 19:03 Eliquis PO 2.5 mg BID FAHEEM Administration Dextrose 0 ml 05/08/18 17:53 Dextrose 50% Inj IV STAT PRN Hypoglycemia Protocol Protocol Dextrose 0 gm 05/08/18 17:53 Glutose 15 PO ONCE PRN Hypoglycemia Protocol Protocol Ethambutol HCl 1,200 mg 05/09/18 10:00 05/09/18 10:41 Myambutol PO 1,200 mg TTS FAHEEM Administration Protocol Folic Acid 1 mg 05/09/18 10:00 05/09/18 10:27 Folic Acid PO 1 mg DAILY FAHEEM Administration Glucagon 0 mg 05/08/18 17:53 Glucagen Diagnostic Kit IM STAT PRN Hypoglycemia Protocol Protocol Aztreonam 1 gm/ Sodium 100 mls @ 200 mls/hr 05/08/18 22:00 05/10/18 05:43 Chloride IVPB 200 mls/hr Q8H FAHEEM Administration Protocol Dextrose 1,000 mls @ 0 mls/hr 05/08/18 17:53 Dextrose 5% In Water 1000 Ml IV .Q0M PRN Hypoglycemia Protocol Protocol Per Protocol Sodium Bicarbonate 150 meq/ 1,150 mls @ 100 mls/hr 05/09/18 11:45 05/10/18 02:04 Dextrose IV 100 mls/hr .[id number] FAHEEM Administration Daptomycin 300 mg/ Sodium 100 mls @ 200 mls/hr 05/10/18 18:30 Chloride IV Q48H FAHEEM Norepinephrine Bitartrate 4 mg 254 mls @ 19.05 mls/hr 05/09/18 15:13 05/10/18 04:30 / Sodium Chloride IV 2.96 mcg/min .[id number] PRN 11.3 mls/hr TITRATE PER MD ORDER Titration Protocol 5 MCG/MIN Insulin Human Regular 0 unit 05/09/18 16:30 05/09/18 21:39 Novolin R SC Not Given ACHS FAHEEM Protocol Isoniazid 300 mg 05/09/18 10:00 05/09/18 10:27 Niazid PO 300 mg DAILY FAHEEM Administration Protocol Levothyroxine Sodium 200 mcg 05/10/18 10:00 Levothyroxine IVP DAILY@0630 FAHEEM Methylprednisolone 60 mg 05/09/18 14:00 05/10/18 05:37 Solu-Medrol IVP 60 mg Q8H FAHEEM Administration Pantoprazole Sodium 40 mg 05/09/18 10:00 05/09/18 10:28 Protonix Ec Tab PO 40 mg DAILY FAHEEM Administration Pyridoxine HCl 50 mg 05/09/18 10:00 05/09/18 10:28 Vitamin B6 50 Mg Tab PO 50 mg DAILY FAHEEM Administration Rifampin 600 mg 05/09/18 10:00 05/09/18 10:28 Rifampin Cap PO 600 mg DAILY FAHEEM Administration Protocol Tacrolimus 5 mg 05/08/18 18:00 05/09/18 19:03 Prograf PO 5 mg BID FAHEEM Administration - Patient Studies Lab Studies: Microbiology Studies 05/08/18 19:26 MRSA Culture (Admit) - Final Nose MRSA NOT DETECTED 05/08/18 12:50 Blood Culture - Preliminary Blood NO GROWTH AFTER 24 HOURS 05/08/18 12:20 Blood Culture - Preliminary Blood NO GROWTH AFTER 24 HOURS 05/08/18 13:35 Urine Culture - Final Urine No Growth (<1,000 CFU/ML) Lab Studies 05/10/18 05/10/18 05/10/18 Range/Units 06:11 06:11 06:11 WBC (4.8-10.8) K/uL RBC (4.40-5.90) Mil/uL Hgb (12.0-18.0) g/dL Hct (35.0-51.0) % MCV (80.0-94.0) fL MCH (27.0-31.0) pg MCHC (33.0-37.0) g/dL RDW (11.5-14.5) % Plt Count (130-400) K/uL MPV (7.2-11.7) fL Neut % (Auto) (50.0-75.0) % Lymph % (Auto) (20.0-40.0) % [place] % (Auto) (0.0-10.0) % Eos % (Auto) (0.0-4.0) % Baso % (Auto) (0.0-2.0) % Neut # (Auto) (1.8-7.0) K/uL Lymph # (Auto) (1.0-4.3) K/uL [place] # (Auto) (0.0-0.8) K/uL Eos # (Auto) (0.0-0.7) K/uL Baso # (Auto) (0.0-0.2) K/uL Neutrophils % (Manual) (50-75) % Band Neutrophils % (0-2) % Lymphocytes % (Manual) (20-40) % Monocytes % (Manual) (0-10) % Nucleated RBC % (0-0) % Platelet Estimate (NORMAL) Polychromasia Hypochromasia (manual) Anisocytosis (manual) Ovalocytes [place] Cells PT 28.3 H D (9.7-12.2) SECONDS INR 2.6 D APTT 62 H (21-34) SECONDS Sodium (132-148) mmol/L Potassium (3.6-5.2) mmol/L Chloride (98-107) mmol/L Carbon Dioxide (22-30) mmol/L Anion Gap (10-20) BUN (9-20) mg/dL Creatinine (0.8-1.5) mg/dL Est GFR ( Amer) Est GFR (Non-Af Amer) POC Glucose (mg/dL) (65-110) mg/dL Random Glucose (75-110) mg/dL Calcium (8.6-10.4) mg/dl Phosphorus (2.5-4.5) mg/dL Magnesium (1.6-2.3) mg/dL Total Bilirubin (0.2-1.3) mg/dL AST (17-59) U/L ALT (21-72) U/L Alkaline Phosphatase (38-126) U/L Total Protein (6.3-8.3) g/dL Albumin (3.5-5.0) g/dL Globulin (2.2-3.9) gm/dL Albumin/Globulin Ratio (1.0-2.1) 25-OH Vitamin D Total 52.2 (30.0-100.0) NG/ML Procalcitonin (0.19-0.49) NG/ML Free T4 1.78 (0.78-2.19) ng/dL Thyroxine (T4) (5.5-11.0) ug/dL TSH 3rd Generation (0.46-4.68) mIU/L HIV 1&2 Antibody Screen (NEGATIVE) 05/10/18 05/10/18 05/09/18 Range/Units 06:11 06:11 21:32 WBC 13.6 H D (4.8-10.8) K/uL RBC 2.73 L (4.40-5.90) Mil/uL Hgb 8.1 L (12.0-18.0) g/dL Hct 24.3 L (35.0-51.0) % MCV 89.0 (80.0-94.0) fL MCH 29.7 (27.0-31.0) pg MCHC 33.4 (33.0-37.0) g/dL RDW 25.9 H (11.5-14.5) % Plt Count 204 (130-400) K/uL MPV 8.1 (7.2-11.7) fL Neut % (Auto) 92.2 H (50.0-75.0) % Lymph % (Auto) 4.8 L (20.0-40.0) % [place] % (Auto) 2.6 (0.0-10.0) % Eos % (Auto) 0.3 (0.0-4.0) % Baso % (Auto) 0.1 (0.0-2.0) % Neut # (Auto) 12.5 H (1.8-7.0) K/uL Lymph # (Auto) 0.7 L (1.0-4.3) K/uL [place] # (Auto) 0.4 (0.0-0.8) K/uL Eos # (Auto) 0.0 (0.0-0.7) K/uL Baso # (Auto) 0.0 (0.0-0.2) K/uL Neutrophils % (Manual) (50-75) % Band Neutrophils % (0-2) % Lymphocytes % (Manual) (20-40) % Monocytes % (Manual) (0-10) % Nucleated RBC % (0-0) % Platelet Estimate (NORMAL) Polychromasia Hypochromasia (manual) Anisocytosis (manual) Ovalocytes [place] Cells PT (9.7-12.2) SECONDS INR APTT (21-34) SECONDS Sodium 141 (132-148) mmol/L Potassium 4.6 (3.6-5.2) mmol/L Chloride 105 (98-107) mmol/L Carbon Dioxide 21 L (22-30) mmol/L Anion Gap 20 (10-20) BUN 27 H (9-20) mg/dL Creatinine 2.6 H (0.8-1.5) mg/dL Est GFR ( Amer) 30 Est GFR (Non-Af Amer) 24 POC Glucose (mg/dL) 176 H (65-110) mg/dL Random Glucose 167 H (75-110) mg/dL Calcium 6.8 L (8.6-10.4) mg/dl Phosphorus 6.5 H (2.5-4.5) mg/dL Magnesium 1.8 (1.6-2.3) mg/dL Total Bilirubin 0.4 (0.2-1.3) mg/dL AST 25 (17-59) U/L ALT 17 L (21-72) U/L Alkaline Phosphatase 65 (38-126) U/L Total Protein 5.4 L (6.3-8.3) g/dL Albumin 2.7 L D (3.5-5.0) g/dL Globulin 2.7 (2.2-3.9) gm/dL Albumin/Globulin Ratio 1.0 (1.0-2.1) 25-OH Vitamin D Total (30.0-100.0) NG/ML Procalcitonin (0.19-0.49) NG/ML Free T4 (0.78-2.19) ng/dL Thyroxine (T4) 4.19 L (5.5-11.0) ug/dL TSH 3rd Generation 19.30 H (0.46-4.68) mIU/L HIV 1&2 Antibody Screen (NEGATIVE) 05/09/18 05/09/18 05/09/18 Range/Units 17:26 16:37 11:13 WBC (4.8-10.8) K/uL RBC (4.40-5.90) Mil/uL Hgb (12.0-18.0) g/dL Hct (35.0-51.0) % MCV (80.0-94.0) fL MCH (27.0-31.0) pg MCHC (33.0-37.0) g/dL RDW (11.5-14.5) % Plt Count (130-400) K/uL MPV (7.2-11.7) fL Neut % (Auto) (50.0-75.0) % Lymph % (Auto) (20.0-40.0) % [place] % (Auto) (0.0-10.0) % Eos % (Auto) (0.0-4.0) % Baso % (Auto) (0.0-2.0) % Neut # (Auto) (1.8-7.0) K/uL Lymph # (Auto) (1.0-4.3) K/uL [place] # (Auto) (0.0-0.8) K/uL Eos # (Auto) (0.0-0.7) K/uL Baso # (Auto) (0.0-0.2) K/uL Neutrophils % (Manual) (50-75) % Band Neutrophils % (0-2) % Lymphocytes % (Manual) (20-40) % Monocytes % (Manual) (0-10) % Nucleated RBC % (0-0) % Platelet Estimate (NORMAL) Polychromasia Hypochromasia (manual) Anisocytosis (manual) Ovalocytes [place] Cells PT (9.7-12.2) SECONDS INR APTT (21-34) SECONDS Sodium (132-148) mmol/L Potassium (3.6-5.2) mmol/L Chloride (98-107) mmol/L Carbon Dioxide (22-30) mmol/L Anion Gap (10-20) BUN (9-20) mg/dL Creatinine (0.8-1.5) mg/dL Est GFR ( Amer) Est GFR (Non-Af Amer) POC Glucose (mg/dL) 224 H 209 H (65-110) mg/dL Random Glucose (75-110) mg/dL Calcium (8.6-10.4) mg/dl Phosphorus (2.5-4.5) mg/dL Magnesium (1.6-2.3) mg/dL Total Bilirubin (0.2-1.3) mg/dL AST (17-59) U/L ALT (21-72) U/L Alkaline Phosphatase (38-126) U/L Total Protein (6.3-8.3) g/dL Albumin (3.5-5.0) g/dL Globulin (2.2-3.9) gm/dL Albumin/Globulin Ratio (1.0-2.1) 25-OH Vitamin D Total (30.0-100.0) NG/ML Procalcitonin 3.68 H (0.19-0.49) NG/ML Free T4 (0.78-2.19) ng/dL Thyroxine (T4) (5.5-11.0) ug/dL TSH 3rd Generation (0.46-4.68) mIU/L HIV 1&2 Antibody Screen (NEGATIVE) 05/09/18 05/09/18 05/09/18 Range/Units 10:51 07:23 06:28 WBC (4.8-10.8) K/uL RBC (4.40-5.90) Mil/uL Hgb (12.0-18.0) g/dL Hct (35.0-51.0) % MCV (80.0-94.0) fL MCH (27.0-31.0) pg MCHC (33.0-37.0) g/dL RDW (11.5-14.5) % Plt Count (130-400) K/uL MPV (7.2-11.7) fL Neut % (Auto) (50.0-75.0) % Lymph % (Auto) (20.0-40.0) % [place] % (Auto) (0.0-10.0) % Eos % (Auto) (0.0-4.0) % Baso % (Auto) (0.0-2.0) % Neut # (Auto) (1.8-7.0) K/uL Lymph # (Auto) (1.0-4.3) K/uL [place] # (Auto) (0.0-0.8) K/uL Eos # (Auto) (0.0-0.7) K/uL Baso # (Auto) (0.0-0.2) K/uL Neutrophils % (Manual) 65 (50-75) % Band Neutrophils % 25 H* (0-2) % Lymphocytes % (Manual) 9 L (20-40) % Monocytes % (Manual) 1 (0-10) % Nucleated RBC % 1 H (0-0) % Platelet Estimate Normal (NORMAL) Polychromasia Slight Hypochromasia (manual) Slight Anisocytosis (manual) Moderate Ovalocytes Slight [place] Cells Moderate PT (9.7-12.2) SECONDS INR APTT (21-34) SECONDS Sodium (132-148) mmol/L Potassium (3.6-5.2) mmol/L Chloride (98-107) mmol/L Carbon Dioxide (22-30) mmol/L Anion Gap (10-20) BUN (9-20) mg/dL Creatinine (0.8-1.5) mg/dL Est GFR ( Amer) Est GFR (Non-Af Amer) POC Glucose (mg/dL) 197 H (65-110) mg/dL Random Glucose (75-110) mg/dL Calcium (8.6-10.4) mg/dl Phosphorus (2.5-4.5) mg/dL Magnesium (1.6-2.3) mg/dL Total Bilirubin (0.2-1.3) mg/dL AST (17-59) U/L ALT (21-72) U/L Alkaline Phosphatase (38-126) U/L Total Protein (6.3-8.3) g/dL Albumin (3.5-5.0) g/dL Globulin (2.2-3.9) gm/dL Albumin/Globulin Ratio (1.0-2.1) 25-OH Vitamin D Total (30.0-100.0) NG/ML Procalcitonin (0.19-0.49) NG/ML Free T4 (0.78-2.19) ng/dL Thyroxine (T4) (5.5-11.0) ug/dL TSH 3rd Generation (0.46-4.68) mIU/L HIV 1&2 Antibody Screen Negative (NEGATIVE) Laboratory Results - last 24 hr 05/09/18 05/09/18 05/09/18 06:28 07:23 10:51 WBC RBC Hgb Hct MCV MCH MCHC RDW Plt Count MPV Neut % (Auto) Lymph % (Auto) [place] % (Auto) Eos % (Auto) Baso % (Auto) Neut # (Auto) Lymph # (Auto) [place] # (Auto) Eos # (Auto) Baso # (Auto) Neutrophils % (Manual) 65 Band Neutrophils % 25 H* Lymphocytes % (Manual) 9 L Monocytes % (Manual) 1 Nucleated RBC % 1 H Platelet Estimate Normal Polychromasia Slight Hypochromasia (manual) Slight Anisocytosis (manual) Moderate Ovalocytes Slight [place] Cells Moderate PT INR APTT Sodium Potassium Chloride Carbon Dioxide Anion Gap BUN Creatinine Est GFR ( Amer) Est GFR (Non-Af Amer) POC Glucose (mg/dL) 197 H Random Glucose Calcium Phosphorus Magnesium Total Bilirubin AST ALT Alkaline Phosphatase Total Protein Albumin Globulin Albumin/Globulin Ratio 25-OH Vitamin D Total Procalcitonin Free T4 Thyroxine (T4) TSH 3rd Generation HIV 1&2 Antibody Screen Negative 05/09/18 05/09/18 05/09/18 11:13 16:37 17:26 WBC RBC Hgb Hct MCV MCH MCHC RDW Plt Count MPV Neut % (Auto) Lymph % (Auto) [place] % (Auto) Eos % (Auto) Baso % (Auto) Neut # (Auto) Lymph # (Auto) [place] # (Auto) Eos # (Auto) Baso # (Auto) Neutrophils % (Manual) Band Neutrophils % Lymphocytes % (Manual) Monocytes % (Manual) Nucleated RBC % Platelet Estimate Polychromasia Hypochromasia (manual) Anisocytosis (manual) Ovalocytes [place] Cells PT INR APTT Sodium Potassium Chloride Carbon Dioxide Anion Gap BUN Creatinine Est GFR ( Amer) Est GFR (Non-Af Amer) POC Glucose (mg/dL) 209 H 224 H Random Glucose Calcium Phosphorus Magnesium Total Bilirubin AST ALT Alkaline Phosphatase Total Protein Albumin Globulin Albumin/Globulin Ratio 25-OH Vitamin D Total Procalcitonin 3.68 H Free T4 Thyroxine (T4) TSH 3rd Generation HIV 1&2 Antibody Screen 05/09/18 05/10/18 05/10/18 21:32 06:11 06:11 WBC 13.6 H D RBC 2.73 L Hgb 8.1 L Hct 24.3 L MCV 89.0 MCH 29.7 MCHC 33.4 RDW 25.9 H Plt Count 204 MPV 8.1 Neut % (Auto) 92.2 H Lymph % (Auto) 4.8 L [place] % (Auto) 2.6 Eos % (Auto) 0.3 Baso % (Auto) 0.1 Neut # (Auto) 12.5 H Lymph # (Auto) 0.7 L [place] # (Auto) 0.4 Eos # (Auto) 0.0 Baso # (Auto) 0.0 Neutrophils % (Manual) Band Neutrophils % Lymphocytes % (Manual) Monocytes % (Manual) Nucleated RBC % Platelet Estimate Polychromasia Hypochromasia (manual) Anisocytosis (manual) Ovalocytes [place] Cells PT INR APTT Sodium 141 Potassium 4.6 Chloride 105 Carbon Dioxide 21 L Anion Gap 20 BUN 27 H Creatinine 2.6 H Est GFR ( Amer) 30 Est GFR (Non-Af Amer) 24 POC Glucose (mg/dL) 176 H Random Glucose 167 H Calcium 6.8 L Phosphorus 6.5 H Magnesium 1.8 Total Bilirubin 0.4 AST 25 ALT 17 L Alkaline Phosphatase 65 Total Protein 5.4 L Albumin 2.7 L D Globulin 2.7 Albumin/Globulin Ratio 1.0 25-OH Vitamin D Total Procalcitonin Free T4 Thyroxine (T4) 4.19 L TSH 3rd Generation 19.30 H HIV 1&2 Antibody Screen 05/10/18 05/10/18 05/10/18 06:11 06:11 06:11 WBC RBC Hgb Hct MCV MCH MCHC RDW Plt Count MPV Neut % (Auto) Lymph % (Auto) [place] % (Auto) Eos % (Auto) Baso % (Auto) Neut # (Auto) Lymph # (Auto) [place] # (Auto) Eos # (Auto) Baso # (Auto) Neutrophils % (Manual) Band Neutrophils % Lymphocytes % (Manual) Monocytes % (Manual) Nucleated RBC % Platelet Estimate Polychromasia Hypochromasia (manual) Anisocytosis (manual) Ovalocytes [place] Cells PT 28.3 H D INR 2.6 D APTT 62 H Sodium Potassium Chloride Carbon Dioxide Anion Gap BUN Creatinine Est GFR ( Amer) Est GFR (Non-Af Amer) POC Glucose (mg/dL) Random Glucose Calcium Phosphorus Magnesium Total Bilirubin AST ALT Alkaline Phosphatase Total Protein Albumin Globulin Albumin/Globulin Ratio 25-OH Vitamin D Total 52.2 Procalcitonin Free T4 1.78 Thyroxine (T4) TSH 3rd Generation HIV 1&2 Antibody Screen Fingerstick Blood Sugar Results: 176 Review of Systems - Review of Systems Systems not reviewed;Unavailable: Language Barrier Critical Care Progress Note - Extremities/Vascular Does the Patient have a Central Venous Catheter?: No Does the Patient need a Central Venous Catheter?: No Does the Patient have a Ramires Catheter?: No Does the Patient need a [place] Catheter?: No - Prophylaxis GI Prophylaxis GI: PPI - Prophylaxis DVT Prophylaxis DVT: Not Indicated - Nutrition Nutrition: Nutrition Category Date Time Status Regular Diet [DIET] Diets 05/09/18 Dinner Active Assessment/Plan - Assessment and Plan (Free Text) Assessment: Patient is a 72 yo male with multiple medical issues who presented with slurred speech and edematous upper extremities. Patient was found to be hypothermic, hypoglycemic, and hypotensive. 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 His AMS has improved. He has been taken off isolation. He continues to be hypothermic. Plan: Neuro: - Delirium improved - Neuro checks CV: - Monitor vitals- hypotensive - Start Levophed drip - Echo pending - IVF: D5W with Na Bicarb 8.4% @ 100 mL/hr - Eliquis 2.5 mg PO BID Pulm: - CXR: no active disease - CT chest/abd/pelvis pending - Maintain spO2>92%- supplemental O2 PRN - Duoneb Q8H GI: - Regular diet with glucerna supplements x3 - Decreased albumin (2.7)- replete - Protonix 40 mg PO daily - CMP daily - Mechanical Maintenance consulted Renal: - s/p R kidney transplant - Oliguric - Renal u/s pending - CMP daily - Replete electrolytes PRN - Stress dose steroids- Solu-medrol 60 mg IV Q8H - Tacrolimus 5 mg PO BID - Tacrolimus level pending - Nephrology consulted (Ghanshyam) Endo: - Maintain euglycemia - Hypoglycemia protocol - Accuchecks ACHS with low dose regular ISS - TSH improving (42.6->19.3), free T4 wnl - Thyroid Abs pending - Synthroid 200 mcg IV daily - PM cortisol wnl (2) - On dexamethasone 0.75 mg PO QHS at home - Endocrinology consulted (Acosta) Heme: - PT/INR/PTT increasing- hold Eliquis - Fibrin and fibrinogen degradation products pending - Anemic at BL- stable Hgb (8.1) - Monitor H&H - Folic acid 1 mg PO daily ID: - Temp 88.6 on admission, improved to 97.2; however now decreased to 93.7 - Lactate wnl - Leukocytosis (spesis vs steroids)- 29 bands - Procal 3.68 - Active warming protocol - Urine Cx no growth - Blood Cx no growth >24hrs - MRSA screen negative - HIV negative - C. diff pending - CT chest/abd/pelvis pending - Will insert new PICC and remove old as possible source of infection - Continue Rifampin 600 mg PO daily - Continue Isoniazid 300 mg PO daily - Continue Ethambutol 1200 mg PO TTS - Continue Vit B6 50 mg PO daily - Aztreonam 1 g IV Q8H - Daptomycin 630 mg IV Q48H - IR consulted (Mikhail)- L knee joint aspiration - ID consulted (Charity) PPx: VTE: Eliquis 2.5 mg PO BID GI: PTX 40 mg PO daily PT/OT/ST Code status: DNR/DNI (POLST) Case discussed with attending, Dr. Booth. PGY-1 Natasha Khan D.O. <Sarthak Booth - Last Filed: 05/10/18 17:42> CCU Subjective - Physician Review Critical Care Time Spent (in minutes): 45 CCU Objective - Vital Signs / Intake & Output Vital Signs (Last 4 hours): Vital Signs Pulse Resp BP Pulse Ox 05/10/18 15:00 87 24 100 05/10/18 14:45 93 H 22 79/44 L 100 05/10/18 14:30 84 22 100 05/10/18 14:00 88 21 100 10/31/18 13:50 89 19 79/40 L 100 Intake and Output (Last 8hrs): Intake & Output 05/10/18 05/10/18 05/10/18 06:59 14:59 22:59 Intake Total 1223.3 988.4 111.3 Output Total 100 100 0 Balance 1123.3 888.4 111.3 Weight 110 lb 0.25 oz Intake: IV 79.7 Intake, IV Amount 963.6 988.4 111.3 Right 100 100 Right PICC 800 800 100 Right PICC Distal Port 63.6 88.4 11.3 Oral 180 Output: Urine 100 100 0 Urine, Voided 100 100 0 Stool 0 0 Emesis 0 0 0 Other: # Bowel Movements 0 0 - Medications Active Medications: Active Medications Generic Name Dose Route Start Last Admin Trade Name Freq PRN Reason Stop Dose Admin Albuterol/Ipratropium 3 ml 05/09/18 00:00 05/10/18 07:47 Duoneb 3 Mg/0.5 Mg (3 Ml) Ud INH 3 ml RQ8 FAHEEM Administration Dextrose 0 ml 05/08/18 17:53 Dextrose 50% Inj IV STAT PRN Hypoglycemia Protocol Protocol Dextrose 0 gm 05/08/18 17:53 Glutose 15 PO ONCE PRN Hypoglycemia Protocol Protocol Ethambutol HCl 1,200 mg 05/09/18 10:00 05/09/18 10:41 Myambutol PO 1,200 mg TTS FAHEEM Administration Protocol Folic Acid 1 mg 05/09/18 10:00 05/10/18 10:24 Folic Acid PO 1 mg DAILY FAHEEM Administration Glucagon 0 mg 05/08/18 17:53 Glucagen Diagnostic Kit IM STAT PRN Hypoglycemia Protocol Protocol Aztreonam 1 gm/ Sodium 100 mls @ 200 mls/hr 05/08/18 22:00 05/10/18 13:09 Chloride IVPB 200 mls/hr Q8H FAHEEM Administration Protocol Dextrose 1,000 mls @ 0 mls/hr 05/08/18 17:53 Dextrose 5% In Water 1000 Ml IV .Q0M PRN Hypoglycemia Protocol Protocol Per Protocol Sodium Bicarbonate 150 meq/ 1,150 mls @ 100 mls/hr 05/09/18 11:45 05/10/18 14:49 Dextrose IV 100 mls/hr .[id number] FAHEEM Administration Daptomycin 300 mg/ Sodium 100 mls @ 200 mls/hr 10/31/18 18:30 Chloride IV Q48H FAHEEM Norepinephrine Bitartrate 4 mg 254 mls @ 19.05 mls/hr 05/09/18 15:13 05/10/18 04:30 / Sodium Chloride IV 2.96 mcg/min .[id number] PRN 11.3 mls/hr TITRATE PER MD ORDER Titration Protocol 5 MCG/MIN Insulin Human Regular 0 unit 05/09/18 16:30 05/10/18 17:10 Novolin R SC 2 u ACHS FAHEEM Administration Protocol Isoniazid 300 mg 05/09/18 10:00 05/10/18 10:24 Niazid PO 300 mg DAILY FAHEEM Administration Protocol Levothyroxine Sodium 200 mcg 05/10/18 10:00 05/10/18 10:23 Levothyroxine IVP 200 mcg DAILY@0630 FAHEEM Administration Methylprednisolone 60 mg 05/09/18 14:00 05/10/18 13:09 Solu-Medrol IVP 60 mg Q8H FAHEEM Administration Pantoprazole Sodium 40 mg 05/09/18 10:00 05/10/18 10:23 Protonix Ec Tab PO 40 mg DAILY FAHEEM Administration Pyridoxine HCl 50 mg 05/09/18 10:00 05/10/18 10:23 Vitamin B6 50 Mg Tab PO 50 mg DAILY FAHEEM Administration Rifampin 600 mg 05/09/18 10:00 05/10/18 10:22 Rifampin Cap PO 600 mg DAILY FAHEEM Administration Protocol Tacrolimus 5 mg 05/08/18 18:00 05/10/18 10:22 Prograf PO 5 mg BID FAHEEM Administration - Patient Studies Lab Studies: Microbiology Studies 05/08/18 12:50 Blood Culture - Preliminary Blood NO GROWTH AFTER 48 HOURS 05/08/18 12:20 Blood Culture - Preliminary Blood NO GROWTH AFTER 48 HOURS 05/08/18 19:26 MRSA Culture (Admit) - Final Nose MRSA NOT DETECTED Lab Studies 05/10/18 05/10/18 05/10/18 Range/Units 16:04 14:24 11:29 WBC (4.8-10.8) K/uL RBC (4.40-5.90) Mil/uL Hgb (12.0-18.0) g/dL Hct (35.0-51.0) % MCV (80.0-94.0) fL MCH (27.0-31.0) pg MCHC (33.0-37.0) g/dL RDW (11.5-14.5) % Plt Count (130-400) K/uL MPV (7.2-11.7) fL Neut % (Auto) (50.0-75.0) % Lymph % (Auto) (20.0-40.0) % [place] % (Auto) (0.0-10.0) % Eos % (Auto) (0.0-4.0) % Baso % (Auto) (0.0-2.0) % Neut # (Auto) (1.8-7.0) K/uL Lymph # (Auto) (1.0-4.3) K/uL [place] # (Auto) (0.0-0.8) K/uL Eos # (Auto) (0.0-0.7) K/uL Baso # (Auto) (0.0-0.2) K/uL Neutrophils % (Manual) (50-75) % Band Neutrophils % (0-2) % Lymphocytes % (Manual) (20-40) % Monocytes % (Manual) (0-10) % Nucleated RBC % (0-0) % Toxic Granulation Platelet Estimate (NORMAL) Poikilocytosis (manual Anisocytosis (manual) Target Cells Ovalocytes [place] Cells PT (9.7-12.2) SECONDS INR APTT (21-34) SECONDS Fibrinogen 279 (200-400) mg/dL Fibrin Degrad Products Positive H (NEGATIVE) Fibrin Degrad Prod, Qt >40 H (<10) ug/mL Sodium (132-148) mmol/L Potassium (3.6-5.2) mmol/L Chloride (98-107) mmol/L Carbon Dioxide (22-30) mmol/L Anion Gap (10-20) BUN (9-20) mg/dL Creatinine (0.8-1.5) mg/dL Est GFR ( Amer) Est GFR (Non-Af Amer) POC Glucose (mg/dL) 210 H 190 H (65-110) mg/dL Random Glucose (75-110) mg/dL Hemoglobin A1c (4.2-6.5) % Calcium (8.6-10.4) mg/dl Phosphorus (2.5-4.5) mg/dL Magnesium (1.6-2.3) mg/dL Total Bilirubin (0.2-1.3) mg/dL AST (17-59) U/L ALT (21-72) U/L Alkaline Phosphatase (38-126) U/L Total Protein (6.3-8.3) g/dL Albumin (3.5-5.0) g/dL Globulin (2.2-3.9) gm/dL Albumin/Globulin Ratio (1.0-2.1) 25-OH Vitamin D Total (30.0-100.0) NG/ML Procalcitonin (0.19-0.49) NG/ML Free T4 (0.78-2.19) ng/dL Thyroxine (T4) (5.5-11.0) ug/dL TSH 3rd Generation (0.46-4.68) mIU/L 05/10/18 05/10/18 05/10/18 Range/Units 07:29 06:11 06:11 WBC (4.8-10.8) K/uL RBC (4.40-5.90) Mil/uL Hgb (12.0-18.0) g/dL Hct (35.0-51.0) % MCV (80.0-94.0) fL MCH (27.0-31.0) pg MCHC (33.0-37.0) g/dL RDW (11.5-14.5) % Plt Count (130-400) K/uL MPV (7.2-11.7) fL Neut % (Auto) (50.0-75.0) % Lymph % (Auto) (20.0-40.0) % [place] % (Auto) (0.0-10.0) % Eos % (Auto) (0.0-4.0) % Baso % (Auto) (0.0-2.0) % Neut # (Auto) (1.8-7.0) K/uL Lymph # (Auto) (1.0-4.3) K/uL [place] # (Auto) (0.0-0.8) K/uL Eos # (Auto) (0.0-0.7) K/uL Baso # (Auto) (0.0-0.2) K/uL Neutrophils % (Manual) (50-75) % Band Neutrophils % (0-2) % Lymphocytes % (Manual) (20-40) % Monocytes % (Manual) (0-10) % Nucleated RBC % (0-0) % Toxic Granulation Platelet Estimate (NORMAL) Poikilocytosis (manual Anisocytosis (manual) Target Cells Ovalocytes [place] Cells PT 28.3 H D (9.7-12.2) SECONDS INR 2.6 D APTT 62 H (21-34) SECONDS Fibrinogen (200-400) mg/dL Fibrin Degrad Products (NEGATIVE) Fibrin Degrad Prod, Qt (<10) ug/mL Sodium (132-148) mmol/L Potassium (3.6-5.2) mmol/L Chloride (98-107) mmol/L Carbon Dioxide (22-30) mmol/L Anion Gap (10-20) BUN (9-20) mg/dL Creatinine (0.8-1.5) mg/dL Est GFR ( Amer) Est GFR (Non-Af Amer) POC Glucose (mg/dL) 192 H (65-110) mg/dL Random Glucose (75-110) mg/dL Hemoglobin A1c (4.2-6.5) % Calcium (8.6-10.4) mg/dl Phosphorus (2.5-4.5) mg/dL Magnesium (1.6-2.3) mg/dL Total Bilirubin (0.2-1.3) mg/dL AST (17-59) U/L ALT (21-72) U/L Alkaline Phosphatase (38-126) U/L Total Protein (6.3-8.3) g/dL Albumin (3.5-5.0) g/dL Globulin (2.2-3.9) gm/dL Albumin/Globulin Ratio (1.0-2.1) 25-OH Vitamin D Total 52.2 (30.0-100.0) NG/ML Procalcitonin (0.19-0.49) NG/ML Free T4 (0.78-2.19) ng/dL Thyroxine (T4) (5.5-11.0) ug/dL TSH 3rd Generation (0.46-4.68) mIU/L 05/10/18 05/10/18 05/10/18 Range/Units 06:11 06:11 06:11 WBC (4.8-10.8) K/uL RBC (4.40-5.90) Mil/uL Hgb (12.0-18.0) g/dL Hct (35.0-51.0) % MCV (80.0-94.0) fL MCH (27.0-31.0) pg MCHC (33.0-37.0) g/dL RDW (11.5-14.5) % Plt Count (130-400) K/uL MPV (7.2-11.7) fL Neut % (Auto) (50.0-75.0) % Lymph % (Auto) (20.0-40.0) % [place] % (Auto) (0.0-10.0) % Eos % (Auto) (0.0-4.0) % Baso % (Auto) (0.0-2.0) % Neut # (Auto) (1.8-7.0) K/uL Lymph # (Auto) (1.0-4.3) K/uL [place] # (Auto) (0.0-0.8) K/uL Eos # (Auto) (0.0-0.7) K/uL Baso # (Auto) (0.0-0.2) K/uL Neutrophils % (Manual) (50-75) % Band Neutrophils % (0-2) % Lymphocytes % (Manual) (20-40) % Monocytes % (Manual) (0-10) % Nucleated RBC % (0-0) % Toxic Granulation Platelet Estimate (NORMAL) Poikilocytosis (manual Anisocytosis (manual) Target Cells Ovalocytes [place] Cells PT (9.7-12.2) SECONDS INR APTT (21-34) SECONDS Fibrinogen (200-400) mg/dL Fibrin Degrad Products (NEGATIVE) Fibrin Degrad Prod, Qt (<10) ug/mL Sodium 141 (132-148) mmol/L Potassium 4.6 (3.6-5.2) mmol/L Chloride 105 (98-107) mmol/L Carbon Dioxide 21 L (22-30) mmol/L Anion Gap 20 (10-20) BUN 27 H (9-20) mg/dL Creatinine 2.6 H (0.8-1.5) mg/dL Est GFR ( Amer) 30 Est GFR (Non-Af Amer) 24 POC Glucose (mg/dL) (65-110) mg/dL Random Glucose 167 H (75-110) mg/dL Hemoglobin A1c 5.1 (4.2-6.5) % Calcium 6.8 L (8.6-10.4) mg/dl Phosphorus 6.5 H (2.5-4.5) mg/dL Magnesium 1.8 (1.6-2.3) mg/dL Total Bilirubin 0.4 (0.2-1.3) mg/dL AST 25 (17-59) U/L ALT 17 L (21-72) U/L Alkaline Phosphatase 65 (38-126) U/L Total Protein 5.4 L (6.3-8.3) g/dL Albumin 2.7 L D (3.5-5.0) g/dL Globulin 2.7 (2.2-3.9) gm/dL Albumin/Globulin Ratio 1.0 (1.0-2.1) 25-OH Vitamin D Total (30.0-100.0) NG/ML Procalcitonin (0.19-0.49) NG/ML Free T4 1.78 (0.78-2.19) ng/dL Thyroxine (T4) 4.19 L (5.5-11.0) ug/dL TSH 3rd Generation 19.30 H (0.46-4.68) mIU/L 05/10/18 05/09/18 05/09/18 Range/Units 06:11 21:32 17:26 WBC 13.6 H D (4.8-10.8) K/uL RBC 2.73 L (4.40-5.90) Mil/uL Hgb 8.1 L (12.0-18.0) g/dL Hct 24.3 L (35.0-51.0) % MCV 89.0 (80.0-94.0) fL MCH 29.7 (27.0-31.0) pg MCHC 33.4 (33.0-37.0) g/dL RDW 25.9 H (11.5-14.5) % Plt Count 204 (130-400) K/uL MPV 8.1 (7.2-11.7) fL Neut % (Auto) 92.2 H (50.0-75.0) % Lymph % (Auto) 4.8 L (20.0-40.0) % [place] % (Auto) 2.6 (0.0-10.0) % Eos % (Auto) 0.3 (0.0-4.0) % Baso % (Auto) 0.1 (0.0-2.0) % Neut # (Auto) 12.5 H (1.8-7.0) K/uL Lymph # (Auto) 0.7 L (1.0-4.3) K/uL [place] # (Auto) 0.4 (0.0-0.8) K/uL Eos # (Auto) 0.0 (0.0-0.7) K/uL Baso # (Auto) 0.0 (0.0-0.2) K/uL Neutrophils % (Manual) 68 (50-75) % Band Neutrophils % 29 H* (0-2) % Lymphocytes % (Manual) 1 L (20-40) % Monocytes % (Manual) 2 (0-10) % Nucleated RBC % 1 H (0-0) % Toxic Granulation Present Platelet Estimate Normal (NORMAL) Poikilocytosis (manual Moderate Anisocytosis (manual) Moderate Target Cells Slight Ovalocytes Moderate [place] Cells Moderate PT (9.7-12.2) SECONDS INR APTT (21-34) SECONDS Fibrinogen (200-400) mg/dL Fibrin Degrad Products (NEGATIVE) Fibrin Degrad Prod, Qt (<10) ug/mL Sodium (132-148) mmol/L Potassium (3.6-5.2) mmol/L Chloride (98-107) mmol/L Carbon Dioxide (22-30) mmol/L Anion Gap (10-20) BUN (9-20) mg/dL Creatinine (0.8-1.5) mg/dL Est GFR ( Amer) Est GFR (Non-Af Amer) POC Glucose (mg/dL) 176 H (65-110) mg/dL Random Glucose (75-110) mg/dL Hemoglobin A1c (4.2-6.5) % Calcium (8.6-10.4) mg/dl Phosphorus (2.5-4.5) mg/dL Magnesium (1.6-2.3) mg/dL Total Bilirubin (0.2-1.3) mg/dL AST (17-59) U/L ALT (21-72) U/L Alkaline Phosphatase (38-126) U/L Total Protein (6.3-8.3) g/dL Albumin (3.5-5.0) g/dL Globulin (2.2-3.9) gm/dL Albumin/Globulin Ratio (1.0-2.1) 25-OH Vitamin D Total (30.0-100.0) NG/ML Procalcitonin 3.68 H (0.19-0.49) NG/ML Free T4 (0.78-2.19) ng/dL Thyroxine (T4) (5.5-11.0) ug/dL TSH 3rd Generation (0.46-4.68) mIU/L Laboratory Results - last 24 hr 05/09/18 05/09/18 05/10/18 17:26 21:32 06:11 WBC 13.6 H D RBC 2.73 L Hgb 8.1 L Hct 24.3 L MCV 89.0 MCH 29.7 MCHC 33.4 RDW 25.9 H Plt Count 204 MPV 8.1 Neut % (Auto) 92.2 H Lymph % (Auto) 4.8 L [place] % (Auto) 2.6 Eos % (Auto) 0.3 Baso % (Auto) 0.1 Neut # (Auto) 12.5 H Lymph # (Auto) 0.7 L [place] # (Auto) 0.4 Eos # (Auto) 0.0 Baso # (Auto) 0.0 Neutrophils % (Manual) 68 Band Neutrophils % 29 H* Lymphocytes % (Manual) 1 L Monocytes % (Manual) 2 Nucleated RBC % 1 H Toxic Granulation Present Platelet Estimate Normal Poikilocytosis (manual Moderate Anisocytosis (manual) Moderate Target Cells Slight Ovalocytes Moderate [place] Cells Moderate PT INR APTT Fibrinogen Fibrin Degrad Products Fibrin Degrad Prod, Qt Sodium Potassium Chloride Carbon Dioxide Anion Gap BUN Creatinine Est GFR ( Amer) Est GFR (Non-Af Amer) POC Glucose (mg/dL) 176 H Random Glucose Hemoglobin A1c Calcium Phosphorus Magnesium Total Bilirubin AST ALT Alkaline Phosphatase Total Protein Albumin Globulin Albumin/Globulin Ratio 25-OH Vitamin D Total Procalcitonin 3.68 H Free T4 Thyroxine (T4) TSH 3rd Generation 05/10/18 05/10/18 05/10/18 06:11 06:11 06:11 WBC RBC Hgb Hct MCV MCH MCHC RDW Plt Count MPV Neut % (Auto) Lymph % (Auto) [place] % (Auto) Eos % (Auto) Baso % (Auto) Neut # (Auto) Lymph # (Auto) [place] # (Auto) Eos # (Auto) Baso # (Auto) Neutrophils % (Manual) Band Neutrophils % Lymphocytes % (Manual) Monocytes % (Manual) Nucleated RBC % Toxic Granulation Platelet Estimate Poikilocytosis (manual Anisocytosis (manual) Target Cells Ovalocytes [place] Cells PT INR APTT Fibrinogen Fibrin Degrad Products Fibrin Degrad Prod, Qt Sodium 141 Potassium 4.6 Chloride 105 Carbon Dioxide 21 L Anion Gap 20 BUN 27 H Creatinine 2.6 H Est GFR ( Amer) 30 Est GFR (Non-Af Amer) 24 POC Glucose (mg/dL) Random Glucose 167 H Hemoglobin A1c 5.1 Calcium 6.8 L Phosphorus 6.5 H Magnesium 1.8 Total Bilirubin 0.4 AST 25 ALT 17 L Alkaline Phosphatase 65 Total Protein 5.4 L Albumin 2.7 L D Globulin 2.7 Albumin/Globulin Ratio 1.0 25-OH Vitamin D Total Procalcitonin Free T4 1.78 Thyroxine (T4) 4.19 L TSH 3rd Generation 19.30 H 05/10/18 05/10/18 05/10/18 06:11 06:11 07:29 WBC RBC Hgb Hct MCV MCH MCHC RDW Plt Count MPV Neut % (Auto) Lymph % (Auto) [place] % (Auto) Eos % (Auto) Baso % (Auto) Neut # (Auto) Lymph # (Auto) [place] # (Auto) Eos # (Auto) Baso # (Auto) Neutrophils % (Manual) Band Neutrophils % Lymphocytes % (Manual) Monocytes % (Manual) Nucleated RBC % Toxic Granulation Platelet Estimate Poikilocytosis (manual Anisocytosis (manual) Target Cells Ovalocytes [place] Cells PT 28.3 H D INR 2.6 D APTT 62 H Fibrinogen Fibrin Degrad Products Fibrin Degrad Prod, Qt Sodium Potassium Chloride Carbon Dioxide Anion Gap BUN Creatinine Est GFR ( Amer) Est GFR (Non-Af Amer) POC Glucose (mg/dL) 192 H Random Glucose Hemoglobin A1c Calcium Phosphorus Magnesium Total Bilirubin AST ALT Alkaline Phosphatase Total Protein Albumin Globulin Albumin/Globulin Ratio 25-OH Vitamin D Total 52.2 Procalcitonin Free T4 Thyroxine (T4) TSH 3rd Generation 05/10/18 05/10/18 05/10/18 11:29 14:24 16:04 WBC RBC Hgb Hct MCV MCH MCHC RDW Plt Count MPV Neut % (Auto) Lymph % (Auto) [place] % (Auto) Eos % (Auto) Baso % (Auto) Neut # (Auto) Lymph # (Auto) [place] # (Auto) Eos # (Auto) Baso # (Auto) Neutrophils % (Manual) Band Neutrophils % Lymphocytes % (Manual) Monocytes % (Manual) Nucleated RBC % Toxic Granulation Platelet Estimate Poikilocytosis (manual Anisocytosis (manual) Target Cells Ovalocytes [place] Cells PT INR APTT Fibrinogen 279 Fibrin Degrad Products Positive H Fibrin Degrad Prod, Qt >40 H Sodium Potassium Chloride Carbon Dioxide Anion Gap BUN Creatinine Est GFR ( Amer) Est GFR (Non-Af Amer) POC Glucose (mg/dL) 190 H 210 H Random Glucose Hemoglobin A1c Calcium Phosphorus Magnesium Total Bilirubin AST ALT Alkaline Phosphatase Total Protein Albumin Globulin Albumin/Globulin Ratio 25-OH Vitamin D Total Procalcitonin Free T4 Thyroxine (T4) TSH 3rd Generation Critical Care Progress Note - Nutrition Nutrition: Nutrition Category Date Time Status Regular Diet [DIET] Diets 05/09/18 Dinner Active Attending/Attestation - Attestation I have personally seen and examined this patient.: Yes I have fully participated in the care of the patient.: Yes I have reviewed all pertinent clinical information: Yes Notes (Text): 05/10/18 17:39 patient seen and examined in the intensive care unit. cAT scan of the chest consistent with fibrotic changes and atelectasis On anti-TB meds for tuberculous arthritis Continue IV antibiotics Follow-up culture and sensitivity Monitor renal function RENAL ultrasound noted on bicarbonate drip follow-up ABG
[2018-05-10 08:46] LABS: BANDS 29 % (0-2); LYMPHOCYTE 1 % (20-40); MONOCYTE 2 % (0-10); NEUTROPHIL 68 % (50-75); NUCLEATED RED BLOOD CELL 1 % (0-0); TOTAL CELLS COUNTED 100
[2018-05-10 08:47] LABS: ANISOCYTOSIS MODERATE; OVALOCYTES MODERATE; PLATELET ESTIMATE NORMAL (NORMAL); POIKILOCYTOSIS MODERATE
[2018-05-10 08:48] LABS: BURR CELLS MODERATE
[2018-05-10 08:49] LABS: TARGET CELLS SLIGHT; TOXIC GRANULATION PRESENT
[2018-05-10] MEDS ORDERED: Albumin Human 25% (12.5 gm/50 ml) IV ONE ×2 (09:00→10:00)
[2018-05-10] MEDS: Levothyroxine 200 mcg (0.2 mg) Inj IVP SCH (10:23)
[2018-05-10] MEDS: Pantoprazole 40 mg EC Tab PO SCH (10:23)
--- NOTE | 2018-05-10 12:26 | CARD ---
APPROVED REPORT Date of service: 05/09/2018 EXAM: Two-dimensional and M-mode echocardiogram with Doppler and color Doppler. Other Information Quality : GoodRhythm : INDICATION Pericardial Effusion 2D DIMENSIONS IVSd1.3 (0.7-1.1cm)LVDd4.1 (3.9-5.9cm) PWd1.2 (0.7-1.1cm)LA Uskecx77 (18-58mL) LVDs2.6 (2.5-4.0cm)FS (%) 36.3 % LVEF (%)66.4 (>50%) M-Mode DIMENSIONS Left Atrium (MM)3.94 (2.5-4.0cm)IVSd1.33 (0.7-1.1cm) Aortic Root3.30 (2.2-3.7cm)LVDd3.19 (4.0-5.6cm) Aortic Cusp Exc.1.42 (1.5-2.0cm)PWd1.04 (0.7-1.1cm) FS (%) 13 %LVDs2.79 (2.0-3.8cm) LVEF (%)28 (>50%) Mitral Valve MV E Saaicjyg76.7cm/sMV A Yxduhtbn420.7cm/sE/A ratio0.7 TDI Lateral E' Peak V5.84cm/sMedial E' Peak V3.58cm/sE/Lateral E'15.0 E/Medial E'24.5 Tricuspid Valve TR Peak Bevfqdvl444go/sTR Peak Gr.[id number] LEFT VENTRICLE The left ventricle is normal size. There is normal left ventricular wall thickness. The left ventricular function is normal. The left ventricular ejection fraction is within the normal range. No regional wall motion abnormalities noted. Transmitral Doppler flow pattern is Grade I-abnormal relaxation pattern. No left ventricle thrombus noted on this study. There is no ventricular septal defect visualized. There is no left ventricular aneurysm. There is no mass noted in the left ventricle. RIGHT VENTRICLE The right ventricle is normal size. There is normal right ventricular wall thickness. The right ventricular systolic function is normal. There is a pacemaker lead in the right ventricle. ATRIA The left atrium size is normal. The right atrium size is normal. The interatrial septum is intact with no evidence for an atrial septal defect. AORTIC VALVE The aortic valve is normal in structure and function. No aortic regurgitation is present. There is no aortic valvular stenosis. There is no aortic valvular vegetation. MITRAL VALVE The mitral valve is normal in structure and function. Mitral annular calcification is mild to moderate. There is no evidence of mitral valve prolapse. There is no mitral valve stenosis. There is no mitral valve regurgitation noted. TRICUSPID VALVE The tricuspid valve is normal in structure and function. There is mild to moderate tricuspid regurgitation. Right ventricular systolic pressure is estimated at 40-50 mmHg. There is no tricuspid valve prolapse or vegetation. There is no tricuspid valve stenosis. PULMONIC VALVE The pulmonary valve is normal in structure and function. There is no pulmonic valvular regurgitation. There is no pulmonic valvular stenosis. GREAT VESSELS The aortic root is normal in size. The ascending aorta is normal in size. The pulmonary artery is normal. The IVC is normal in size and collapses >50% with inspiration. PERICARDIAL EFFUSION The pericardium appears normal. There is a small-moderate circumferential pericardial effusion. There is no pleural effusion. <Conclusion> The left ventricular function is normal. The left ventricular ejection fraction is within the normal range. No regional wall motion abnormalities noted. There is mild to moderate tricuspid regurgitation. Right ventricular systolic pressure is estimated at 40-50 mmHg. The pericardium appears normal. There is a small-moderate circumferential pericardial effusion.
--- NOTE | 2018-05-10 13:09 | CP.PCM.PN ---
Subjective - Date & Time of Evaluation Date of Evaluation: 05/10/18 Time of Evaluation: 13:06 - Subjective Subjective: Events noted Presents with sepsis syndrome, hypotension, AMS More alert than described 05/09 Oliguric now On levo 5 mcg/min, bicarb gtt creat increased to 2.6, baseline creat around 1.5-1.8UE swollen Cultures so far negative On multiple antimicrobials [place] level pending On stress dose steroids Objective - Vital Signs/Intake and Output Vital Signs (last 24 hours): Temp Pulse Resp BP Pulse Ox 93.7 F L 89 14 113/73 100 05/10/18 08:00 05/10/18 12:30 05/10/18 12:30 05/10/18 11:50 05/10/18 12:30 Intake and Output: 05/10/18 05/10/18 06:59 18:59 Intake Total 2125.8 777.1 Output Total 100 100 Balance 2025.8 677.1 - Medications Medications: Current Medications Albuterol/Ipratropium (Duoneb 3 Mg/0.5 Mg (3 Ml) Ud) 3 ml INH RQ8 FAHEEM Last Admin: 05/10/18 07:47 Dose: 3 ml Dextrose (Dextrose 50% Inj) 0 ml IV STAT PRN; Protocol PRN Reason: Hypoglycemia Protocol Dextrose (Glutose 15) 0 gm PO ONCE PRN; Protocol PRN Reason: Hypoglycemia Protocol Ethambutol HCl (Myambutol) 1,200 mg PO TTS FAHEEM; Protocol Last Admin: 05/09/18 10:41 Dose: 1,200 mg Folic Acid (Folic Acid) 1 mg PO DAILY [facility] Last Admin: 05/10/18 10:24 Dose: 1 mg Glucagon (Glucagen Diagnostic Kit) 0 mg IM STAT PRN; Protocol PRN Reason: Hypoglycemia Protocol Aztreonam 1 gm/ Sodium (Chloride) 100 mls @ 200 mls/hr IVPB Q8H FAHEEM; Protocol Last Admin: 05/10/18 05:43 Dose: 200 mls/hr Dextrose (Dextrose 5% In Water 1000 Ml) 1,000 mls @ 0 mls/hr IV .Q0M PRN; Protocol PRN Reason: Hypoglycemia Protocol Sodium Bicarbonate 150 meq/ (Dextrose) 1,150 mls @ 100 mls/hr IV .[id number] [facility] Last Admin: 05/10/18 02:04 Dose: 100 mls/hr Daptomycin 300 mg/ Sodium (Chloride) 100 mls @ 200 mls/hr IV Q48H FAHEEM Norepinephrine Bitartrate 4 mg (/ Sodium Chloride) 254 mls @ 19.05 mls/hr IV .[id number] PRN; Protocol PRN Reason: TITRATE PER MD ORDER Last Titration: 05/10/18 04:30 Dose: 2.96 mcg/min, 11.3 mls/hr Insulin Human Regular (Novolin R) 0 unit SC ACHS [facility]; Protocol Last Admin: 05/10/18 12:10 Dose: 1 u Isoniazid (Niazid) 300 mg PO DAILY [facility]; Protocol Last Admin: 05/10/18 10:24 Dose: 300 mg Levothyroxine Sodium (Levothyroxine) 200 mcg IVP DAILY@0630 [facility] Last Admin: 05/10/18 10:23 Dose: 200 mcg Methylprednisolone (Solu-Medrol) 60 mg IVP Q8H [facility] Last Admin: 05/10/18 05:37 Dose: 60 mg Pantoprazole Sodium (Protonix Ec Tab) 40 mg PO DAILY [facility] Last Admin: 05/10/18 10:23 Dose: 40 mg Pyridoxine HCl (Vitamin B6 50 Mg Tab) 50 mg PO DAILY [facility] Last Admin: 05/10/18 10:23 Dose: 50 mg Rifampin (Rifampin Cap) 600 mg PO DAILY [facility]; Protocol Last Admin: 05/10/18 10:22 Dose: 600 mg Tacrolimus (Prograf) 5 mg PO BID [facility] Last Admin: 05/10/18 10:22 Dose: 5 mg - Labs Labs: 05/10/18 06:11 05/10/18 06:11 PT 28.3 SECONDS (9.7-12.2) H D 05/10/18 06:11 INR 2.6 D 05/10/18 06:11 APTT 62 SECONDS (21-34) H 05/10/18 06:11 - Constitutional Appears: Toxic, In Acute Distress, Chronically Ill - Head Exam Head Exam: ATRAUMATIC, NORMAL INSPECTION - Eye Exam Eye Exam: EOMI, Normal appearance - Neck Exam Neck Exam: Normal Inspection. absent: Tenderness - Respiratory Exam Respiratory Exam: Rhonchi, Respiratory Distress - Cardiovascular Exam Cardiovascular Exam: Tachycardia, +S1 - GI/Abdominal Exam GI & Abdominal Exam: Distended, Soft. 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 chack ABG- might have to decrease rate of bicarb, acidosis partly from respiratory acidosis Monitor YVAN closely
--- NOTE | 2018-05-10 13:57 | PQF ---
PROVIDER RESPONSE TEXT: Metabolic Encephalopathy in the setting of Hypoglycemia and Sepsis manifested by Acute Confusion, AMS treated with D 50 IV and IV Abx REVIEWER QUERY TEXT: Clarification of Clinical Diagnostic Findings Please clarify documentation or clinical relevance for the clinical / diagnostic findings or whether those are insignificant or unable to be further specified. Metabolic Encephalopathy in the setting of Hypoglycemia and Sepsis manifested by Acute Confusion, AM S trated with D 50 IV and IV Abx . -Other Explanation. - Unable to Determine The patient's Clinical Indicators include: Clinical Findings : AMS, Acute Confusion, Hypoglycemia with Glu= 20, Hypothermia w/ T= 89.3, Sepsis Treatment: D 50 IV , IV Abx Cubicin , Aztreonam Rrisk factors : Infection , Hypoglycemia Query created by: Maya Henderson on 05/09/2018 5:07 PM Electronically signed by: Reji Bradshaw MD 05/10/2018 1:54 PM
--- NOTE | 2018-05-10 14:32 | CT ---
Date of service: 05/10/2018 PROCEDURE: CT Chest, Abdomen and Pelvis without intravenous contrast HISTORY: Sepsis COMPARISON: 12/30/2017. TECHNIQUE: Radiation dose: Total exam DLP = 582.32 mGy-cm. This CT exam was performed using one or more of the following dose reduction techniques: Automated exposure control, adjustment of the mA and/or kV according to patient size, and/or use of iterative reconstruction technique. FINDINGS: CT CHEST WITHOUT CONTRAST: LUNGS: There is redemonstration of extensive centrilobular emphysema in the right upper lobe, chronic scarring in both lungs, extensive tree-in-bud opacities and chronic multifocal atelectasis. There is extensive biapical pleural parenchymal scarring. There is mild diffuse bronchial wall thickening. There are no endobronchial lesions. MEDIASTINUM: Mild cardiomegaly and moderate pericardial effusion. Atherosclerotic aortic calcifications are present. There are also a atherosclerotic coronary artery calcifications. The aorta is not dilated. There is mild dilatation of the main pulmonary artery. LYMPH NODES: No pathologic lymphadenopathy. PLEURA: No pneumothorax. No pleural fluid. BONES: Diffuse bone demineralization and mild multilevel degenerative disc disease.. OTHER FINDINGS: None. CT ABDOMEN AND PELVIS: LIVER: Normal in size. No gross lesion or ductal dilatation. GALLBLADDER AND BILE DUCTS: Calcified gallstones. PANCREAS: Unremarkable. No gross lesion or ductal dilatation. SPLEEN: Unremarkable. ADRENALS: Unremarkable. No mass. KIDNEYS AND URETERS: Severe renal cortical atrophy. Stable cortical cysts in the left kidney. Right lower quadrant renal transplant. No hydronephrosis or nephrolithiasis. VASCULATURE: No aortic atherosclerotic calcification or mural plaque present. Unremarkable. No aortic aneurysm. BOWEL: There are moderately dilated fluid-filled small bowel loops and mild dilatation of fluid filled colon. This APPENDIX: Normal appendix. PERITONEUM: There is small amount of fluid in the left paracolic gutter. No free air. LYMPH NODES: No enlarged lymph nodes. BLADDER: Unremarkable. REPRODUCTIVE: The prostate gland is normal in size. BONES: No acute fracture. Diffuse bone demineralization and multilevel degenerative changes. OTHER FINDINGS: There is diffuse anasarca. There are extensive atherosclerotic vascular calcifications. IMPRESSION: 1. Fluid-filled moderately dilated small bowel loops and colon and fluid in the left paracolic gutter. Findings could be related to nonspecific enterocolitis. 2. Chronic fibrotic changes, tree-in-bud opacities and multifocal atelectasis in the lungs. No significant interval change. 3. Moderate bilateral pleural effusions, moderate pericardial effusion and diffuse anasarca.
[2018-05-10 14:39] LABS: FIBRINOGEN 279 mg/dL (200-400)
--- NOTE | 2018-05-10 14:42 | CP.PCM.PN ---
Subjective - Date & Time of Evaluation Date of Evaluation: 05/10/18 Time of Evaluation: 14:00 - Subjective Subjective: Patient still hypotensive, hypothermic and slightly confused. Still with swelling and tenderness of the left knee. On IV Daptomycin and Azactam, Solumedrol. Echo: ISSH with normal LVEF, small pericardial effusion, MR, TR, thickened AV and no obvious vegetation. Objective - Vital Signs/Intake and Output Vital Signs (last 24 hours): Temp Pulse Resp BP Pulse Ox 93.7 F L 88 21 79/40 L 100 05/10/18 08:00 05/10/18 14:00 05/10/18 14:00 05/10/18 13:50 05/10/18 14:00 Intake and Output: 05/10/18 05/10/18 06:59 18:59 Intake Total 2125.8 888.4 Output Total 100 100 Balance 2025.8 788.4 - Medications Medications: Current Medications Albuterol/Ipratropium (Duoneb 3 Mg/0.5 Mg (3 Ml) Ud) 3 ml INH RQ8 [facility] Last Admin: 05/10/18 07:47 Dose: 3 ml Dextrose (Dextrose 50% Inj) 0 ml IV STAT PRN; Protocol PRN Reason: Hypoglycemia Protocol Dextrose (Glutose 15) 0 gm PO ONCE PRN; Protocol PRN Reason: Hypoglycemia Protocol Ethambutol HCl (Myambutol) 1,200 mg PO TTS [facility]; Protocol Last Admin: 05/09/18 10:41 Dose: 1,200 mg Folic Acid (Folic Acid) 1 mg PO DAILY [facility] Last Admin: 05/10/18 10:24 Dose: 1 mg Glucagon (Glucagen Diagnostic Kit) 0 mg IM STAT PRN; Protocol PRN Reason: Hypoglycemia Protocol Aztreonam 1 gm/ Sodium (Chloride) 100 mls @ 200 mls/hr IVPB Q8H [facility]; Protocol Last Admin: 05/10/18 13:09 Dose: 200 mls/hr Dextrose (Dextrose 5% In Water 1000 Ml) 1,000 mls @ 0 mls/hr IV .Q0M PRN; Protocol PRN Reason: Hypoglycemia Protocol Sodium Bicarbonate 150 meq/ (Dextrose) 1,150 mls @ 100 mls/hr IV .[id number] [facility] Last Admin: 05/10/18 13:12 Dose: Not Given Daptomycin 300 mg/ Sodium (Chloride) 100 mls @ 200 mls/hr IV Q48H [facility] Norepinephrine Bitartrate 4 mg (/ Sodium Chloride) 254 mls @ 19.05 mls/hr IV .[id number] PRN; Protocol PRN Reason: TITRATE PER MD ORDER Last Titration: 05/10/18 04:30 Dose: 2.96 mcg/min, 11.3 mls/hr Insulin Human Regular (Novolin R) 0 unit SC ACHS [facility]; Protocol Last Admin: 05/10/18 12:10 Dose: 1 u Isoniazid (Niazid) 300 mg PO DAILY [facility]; Protocol Last Admin: 05/10/18 10:24 Dose: 300 mg Levothyroxine Sodium (Levothyroxine) 200 mcg IVP DAILY@0630 [facility] Last Admin: 05/10/18 10:23 Dose: 200 mcg Methylprednisolone (Solu-Medrol) 60 mg IVP Q8H [facility] Last Admin: 05/10/18 13:09 Dose: 60 mg Pantoprazole Sodium (Protonix Ec Tab) 40 mg PO DAILY [facility] Last Admin: 05/10/18 10:23 Dose: 40 mg Pyridoxine HCl (Vitamin B6 50 Mg Tab) 50 mg PO DAILY [facility] Last Admin: 05/10/18 10:23 Dose: 50 mg Rifampin (Rifampin Cap) 600 mg PO DAILY [facility]; Protocol Last Admin: 05/10/18 10:22 Dose: 600 mg Tacrolimus (Prograf) 5 mg PO BID [facility] Last Admin: 05/10/18 10:22 Dose: 5 mg - Labs Labs: 05/10/18 06:11 05/10/18 06:11 PT 28.3 SECONDS (9.7-12.2) H D 05/10/18 06:11 INR 2.6 D 05/10/18 06:11 APTT 62 SECONDS (21-34) H 05/10/18 06:11 - Constitutional Appears: Toxic, No Acute Distress, Cachectic, Chronically Ill - Head Exam Head Exam: NORMAL INSPECTION - Eye Exam Eye Exam: Normal appearance - ENT Exam ENT Exam: Normal Exam - Neck Exam Neck Exam: Normal Inspection - Respiratory Exam Respiratory Exam: Rhonchi - Cardiovascular Exam Cardiovascular Exam: Irregular Rhythm, Murmur - GI/Abdominal Exam GI & Abdominal Exam: Soft, Normal Bowel Sounds - Rectal Exam Rectal Exam: Deferred - Extremities Exam Additional comments: Tender an swollen left knee. - Back Exam Back Exam: NORMAL INSPECTION - Neurological Exam Neurological Exam: Alert, Awake - Psychiatric Exam Psychiatric exam: Anxious - Skin Skin Exam: Dry, Erythema, Normal Color, Warm Assessment and Plan (1) Hypothermia Assessment & Plan: On IV antibiotics and vasopressors. Status: Acute (2) Hypoglycemia Assessment & Plan: On Solumedrol IV Status: Resolved (3) Hypotension Assessment & Plan: On IV antibiotics and vasopressor. Status: Resolved (4) Acute confusion Assessment & Plan: Improving Status: Acute (5) Exfoliative dermatitis Assessment & Plan: Better. Status: Acute
[2018-05-10 14:58] LABS: FDP INTERPRETATION POSITIVE (NEGATIVE); FDP QUANTITY >40 ug/mL (<10)
--- NOTE | 2018-05-10 15:04 | US ---
Date of service: 05/10/2018 PROCEDURE: Ultrasound of the Kidneys HISTORY: renal transplant, sepsis COMPARISON: None available. TECHNIQUE: Sonogram of the kidneys. FINDINGS: RIGHT KIDNEY: The [place] kidneys not visualized in the right renal fossa. LEFT KIDNEY: The [place] kidney is not visualized in the left renal fossa. OTHER FINDINGS: There is a right lower quadrant renal transplant which measures 9.7 x 4.7 x 6.5 cm. There is normal cortical echogenicity, corticomedullary differentiation and contour. No hydronephrosis or nephrolithiasis. IMPRESSION: Normal ultrasound examination of right lower quadrant renal transplant.
--- NOTE | 2018-05-10 17:16 | CP.PCM.CON ---
History of Present Illness - History of Present Illness History of Present Illness: Orthopedic consultation Dr. Tovar 72M known to service s/p I&D arthroscopic 02/28/2018 and I&D open popliteal space/arthroscopic 03/09/2018 found to have septic arthritis +TB. Patient has followed up wiht Dr. Tovar in office since last admission approx 6 weeks ago. at bedside. Patient had been walking until about a week ago when he started getting weaker and more confused. He was readmitted 05/08/2018 for sepsis, found to be hypotensive and hypothermic. Patient denies pain in his knee at this time, he answers some questions appropriately, but is confused at times also. Review of Systems - Review of Systems All systems: reviewed and no additional remarkable complaints except - Musculoskeletal Musculoskeletal: As Per HPI Past Patient History - Infectious Disease Hx of Infectious Diseases: C.diff - Tetanus Immunizations Tetanus Immunization: Unknown - Past Medical History & Family History Past Medical History?: Yes Past Family History: Reviewed and not pertinent - Past Social History Smoking Status: Former Smoker Chewing Tobacco Use: No Cigar Use: No Alcohol: None Drugs: Denies Home Situation {Lives}: With Family (mother) - CARDIAC Hx Congestive Heart Failure: Yes Hx Hypercholesterolemia: Yes Hx Hypertension: Yes - PULMONARY Hx Chronic Obstructive Pulmonary Disease (COPD): Yes (Emphysema,) - NEUROLOGICAL Hx Neurological Disorder: Yes - HEENT Hx HEENT Problems: Yes Hx Cataracts: Yes (bilat iol,had surgery) - RENAL Hx Chronic Kidney Disease: Yes (s/p renal transplant) - ENDOCRINE/METABOLIC Hx Hypothyroidism: Yes - HEMATOLOGICAL/ONCOLOGICAL Hx Anemia: Yes - INTEGUMENTARY Hx Dermatological Problems: Yes (sun sentivity) Hx Eczema: Yes - MUSCULOSKELETAL/RHEUMATOLOGICAL Hx Arthritis: Yes (Gout) - GASTROINTESTINAL Hx Gastritis: Yes - GENITOURINARY/GYNECOLOGICAL Hx Genitourinary Disorders: No - PSYCHIATRIC Hx Substance Use: No - SURGICAL HISTORY Hx Surgeries: Yes (Hemicolectomy for colon cancer) Hx Angiogram: Yes (ICD insertion for ventricular tachycardia.) Hx Cataract Extraction: Yes Hx Cardiac Catheterization: Yes Hx Kidney Transplant: Yes () Other/Comment: THYROID SURGERY-2004. Hx of perforated bowel corrected with s urgery. AICD - ANESTHESIA Hx Anesthesia: Yes Hx Anesthesia Reactions: No Hx Malignant Hyperthermia: No Meds Allergies/Adverse Reactions: Allergies Allergy/AdvReac Type Severity Reaction Status Date / Time metoprolol Allergy Intermediate ITCHING Verified 02/01/18 11:29 - Medications Medications: Current Medications Albuterol/Ipratropium (Duoneb 3 Mg/0.5 Mg (3 Ml) Ud) 3 ml INH RQ8 [facility] Last Admin: 05/10/18 07:47 Dose: 3 ml Dextrose (Dextrose 50% Inj) 0 ml IV STAT PRN; Protocol PRN Reason: Hypoglycemia Protocol Dextrose (Glutose 15) 0 gm PO ONCE PRN; Protocol PRN Reason: Hypoglycemia Protocol Ethambutol HCl (Myambutol) 1,200 mg PO TTS [facility]; Protocol Last Admin: 05/09/18 10:41 Dose: 1,200 mg Folic Acid (Folic Acid) 1 mg PO DAILY [facility] Last Admin: 05/10/18 10:24 Dose: 1 mg Glucagon (Glucagen Diagnostic Kit) 0 mg IM STAT PRN; Protocol PRN Reason: Hypoglycemia Protocol Aztreonam 1 gm/ Sodium (Chloride) 100 mls @ 200 mls/hr IVPB Q8H [facility]; Protocol Last Admin: 05/10/18 13:09 Dose: 200 mls/hr Dextrose (Dextrose 5% In Water 1000 Ml) 1,000 mls @ 0 mls/hr IV .Q0M PRN; Protocol PRN Reason: Hypoglycemia Protocol Sodium Bicarbonate 150 meq/ (Dextrose) 1,150 mls @ 100 mls/hr IV .[id number] [facility] Last Admin: 05/10/18 14:49 Dose: 100 mls/hr Daptomycin 300 mg/ Sodium (Chloride) 100 mls @ 200 mls/hr IV Q48H [facility] Norepinephrine Bitartrate 4 mg (/ Sodium Chloride) 254 mls @ 19.05 mls/hr IV .[id number] PRN; Protocol PRN Reason: TITRATE PER MD ORDER Last Titration: 05/10/18 04:30 Dose: 2.96 mcg/min, 11.3 mls/hr Insulin Human Regular (Novolin R) 0 unit SC ACHS [facility]; Protocol Last Admin: 05/10/18 17:10 Dose: 2 u Isoniazid (Niazid) 300 mg PO DAILY [facility]; Protocol Last Admin: 05/10/18 10:24 Dose: 300 mg Levothyroxine Sodium (Levothyroxine) 200 mcg IVP DAILY@0630 [facility] Last Admin: 05/10/18 10:23 Dose: 200 mcg Methylprednisolone (Solu-Medrol) 60 mg IVP Q8H [facility] Last Admin: 05/10/18 13:09 Dose: 60 mg Pantoprazole Sodium (Protonix Ec Tab) 40 mg PO DAILY [facility] Last Admin: 05/10/18 10:23 Dose: 40 mg Pyridoxine HCl (Vitamin B6 50 Mg Tab) 50 mg PO DAILY [facility] Last Admin: 05/10/18 10:23 Dose: 50 mg Rifampin (Rifampin Cap) 600 mg PO DAILY [facility]; Protocol Last Admin: 05/10/18 10:22 Dose: 600 mg Tacrolimus (Prograf) 5 mg PO BID [facility] Last Admin: 05/10/18 10:22 Dose: 5 mg Physical Exam - Constitutional Appears: Chronically Ill - Extremities Exam Additional comments: Left knee: no change in swelling since last exam. PROM 0-90 degrees without any pain. Knee not warm, non tender to knee or popliteal fossa. Calves osft NT neg homans sensation appears intact. Patient has active ext of toes and DF/PF ankle, ?weakness compared to right but difficult to assess as patient follows most but not all commands - Skin Additional comments: skin scaling to chest and arms Left knee: lateral incision mostly healed, distal 2cm still scab but does not appear full thickness superior and medial portal sites no active drainage, still with approx 3mm openings, unclear if full thickness lateral portal site open 1cm clearly full thickness, scant serous drainage during exam. No erythema to any site. Results - Vital Signs Recent Vital Signs: Last Vital Signs Temp 93.7 F L 05/10/18 08:00 Pulse 87 05/10/18 15:00 Resp 24 05/10/18 15:00 BP 79/44 L 05/10/18 14:45 Pulse Ox 100 05/10/18 15:00 - Labs Result Diagrams: 05/11/18 06:32 05/11/18 06:32 Labs: Laboratory Results - last 24 hr 05/09/18 05/09/18 05/10/18 17:26 21:32 06:11 WBC 13.6 H D RBC 2.73 L Hgb 8.1 L Hct 24.3 L MCV 89.0 MCH 29.7 MCHC 33.4 RDW 25.9 H Plt Count 204 MPV 8.1 Neut % (Auto) 92.2 H Lymph % (Auto) 4.8 L [place] % (Auto) 2.6 Eos % (Auto) 0.3 Baso % (Auto) 0.1 Neut # (Auto) 12.5 H Lymph # (Auto) 0.7 L [place] # (Auto) 0.4 Eos # (Auto) 0.0 Baso # (Auto) 0.0 Neutrophils % (Manual) 68 Band Neutrophils % 29 H* Lymphocytes % (Manual) 1 L Monocytes % (Manual) 2 Nucleated RBC % 1 H Toxic Granulation Present Platelet Estimate Normal Poikilocytosis (manual Moderate Anisocytosis (manual) Moderate Target Cells Slight Ovalocytes Moderate David Cells Moderate PT INR APTT Fibrinogen Fibrin Degrad Products Fibrin Degrad Prod, Qt Sodium Potassium Chloride Carbon Dioxide Anion Gap BUN Creatinine Est GFR ( Amer) Est GFR (Non-Af Amer) POC Glucose (mg/dL) 176 H Random Glucose Hemoglobin A1c Calcium Phosphorus Magnesium Total Bilirubin AST ALT Alkaline Phosphatase Total Protein Albumin Globulin Albumin/Globulin Ratio 25-OH Vitamin D Total Procalcitonin 3.68 H Free T4 Thyroxine (T4) TSH 3rd Generation 05/10/18 05/10/18 05/10/18 06:11 06:11 06:11 WBC RBC Hgb Hct MCV MCH MCHC RDW Plt Count MPV Neut % (Auto) Lymph % (Auto) [place] % (Auto) Eos % (Auto) Baso % (Auto) Neut # (Auto) Lymph # (Auto) [place] # (Auto) Eos # (Auto) Baso # (Auto) Neutrophils % (Manual) Band Neutrophils % Lymphocytes % (Manual) Monocytes % (Manual) Nucleated RBC % Toxic Granulation Platelet Estimate Poikilocytosis (manual Anisocytosis (manual) Target Cells Ovalocytes David Cells PT INR APTT Fibrinogen Fibrin Degrad Products Fibrin Degrad Prod, Qt Sodium 141 Potassium 4.6 Chloride 105 Carbon Dioxide 21 L Anion Gap 20 BUN 27 H Creatinine 2.6 H Est GFR ( Amer) 30 Est GFR (Non-Af Amer) 24 POC Glucose (mg/dL) Random Glucose 167 H Hemoglobin A1c 5.1 Calcium 6.8 L Phosphorus 6.5 H Magnesium 1.8 Total Bilirubin 0.4 AST 25 ALT 17 L Alkaline Phosphatase 65 Total Protein 5.4 L Albumin 2.7 L D Globulin 2.7 Albumin/Globulin Ratio 1.0 25-OH Vitamin D Total Procalcitonin Free T4 1.78 Thyroxine (T4) 4.19 L TSH 3rd Generation 19.30 H 05/10/18 05/10/18 05/10/18 06:11 06:11 07:29 WBC RBC Hgb Hct MCV MCH MCHC RDW Plt Count MPV Neut % (Auto) Lymph % (Auto) [place] % (Auto) Eos % (Auto) Baso % (Auto) Neut # (Auto) Lymph # (Auto) [place] # (Auto) Eos # (Auto) Baso # (Auto) Neutrophils % (Manual) Band Neutrophils % Lymphocytes % (Manual) Monocytes % (Manual) Nucleated RBC % Toxic Granulation Platelet Estimate Poikilocytosis (manual Anisocytosis (manual) Target Cells Ovalocytes Coleman Cells PT 28.3 H D INR 2.6 D APTT 62 H Fibrinogen Fibrin Degrad Products Fibrin Degrad Prod, Qt Sodium Potassium Chloride Carbon Dioxide Anion Gap BUN Creatinine Est GFR ( Amer) Est GFR (Non-Af Amer) POC Glucose (mg/dL) 192 H Random Glucose Hemoglobin A1c Calcium Phosphorus Magnesium Total Bilirubin AST ALT Alkaline Phosphatase Total Protein Albumin Globulin Albumin/Globulin Ratio 25-OH Vitamin D Total 52.2 Procalcitonin Free T4 Thyroxine (T4) TSH 3rd Generation 05/10/18 05/10/18 05/10/18 11:29 14:24 16:04 WBC RBC Hgb Hct MCV MCH MCHC RDW Plt Count MPV Neut % (Auto) Lymph % (Auto) [place] % (Auto) Eos % (Auto) Baso % (Auto) Neut # (Auto) Lymph # (Auto) [place] # (Auto) Eos # (Auto) Baso # (Auto) Neutrophils % (Manual) Band Neutrophils % Lymphocytes % (Manual) Monocytes % (Manual) Nucleated RBC % Toxic Granulation Platelet Estimate Poikilocytosis (manual Anisocytosis (manual) Target Cells Ovalocytes David Cells PT INR APTT Fibrinogen 279 Fibrin Degrad Products Positive H Fibrin Degrad Prod, Qt >40 H Sodium Potassium Chloride Carbon Dioxide Anion Gap BUN Creatinine Est GFR ( Amer) Est GFR (Non-Af Amer) POC Glucose (mg/dL) 190 H 210 H Random Glucose Hemoglobin A1c Calcium Phosphorus Magnesium Total Bilirubin AST ALT Alkaline Phosphatase Total Protein Albumin Globulin Albumin/Globulin Ratio 25-OH Vitamin D Total Procalcitonin Free T4 Thyroxine (T4) TSH 3rd Generation Assessment & Plan (1) Surgical wound dehiscence Assessment and Plan: lateral portal wound especially d/w Dr. Tovar wound care consult pending at this time, does not clinically appear that there is increased effusion/infection of left knee to indicate need for another I&D, wound dehiscence and potential for superficial wound infection or deep superinfection due to wounds is concern, will d/w Dr. 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
[2018-05-10 17:52] LABS: VENOUS BLOOD GAS BASE EXCESS 18.3 mmol/L (0.0-2.0); VENOUS BLOOD GAS PCO2 59 mmHg (40-60); VENOUS BLOOD GAS PO2 26 mm/Hg (30-55); VENOUS BLOOD PH 7.49 (7.32-7.43)
--- NOTE | 2018-05-10 18:08 | RAD ---
Date of service: 05/10/2018 PROCEDURE: Left Knee Radiographs. HISTORY: Pain. COMPARISON: None. FINDINGS: BONES: There is diffuse bone demineralization. There is no acute fracture or bone destruction. Bone alignment is normal. JOINTS: There is mild tricompartmental degenerative osteoarthrosis with reduced joint spaces, marginal osteophytes and tibial spiking, worse in the media compartment. JOINT EFFUSION: There is a moderate suprapatellar joint effusion. OTHER FINDINGS: Moderate suprapatellar soft tissue swelling. There are advanced atherosclerotic vascular calcifications. IMPRESSION: No acute fracture or dislocation. Moderate suprapatellar joint effusion and soft tissue swelling
--- NOTE | 2018-05-10 18:12 | CP.PCM.PN ---
Subjective - Date & Time of Evaluation Date of Evaluation: 05/10/18 Time of Evaluation: 08:00 - Subjective Subjective: events noted remains septic cardio on board - to eval echo ortho on board all cultures neg thus far cont Dapto/ Merrem/ Mycamine / TB meds Objective - Vital Signs/Intake and Output Vital Signs (last 24 hours): Temp Pulse Resp BP Pulse Ox 93.7 F L 87 24 79/44 L 100 05/10/18 08:00 05/10/18 15:00 05/10/18 15:00 05/10/18 14:45 05/10/18 15:00 Intake and Output: 05/10/18 05/10/18 06:59 18:59 Intake Total 2125.8 1099.7 Output Total 100 100 Balance 2025.8 999.7 - Medications Medications: Current Medications Albuterol/Ipratropium (Duoneb 3 Mg/0.5 Mg (3 Ml) Ud) 3 ml INH RQ8 [facility] Last Admin: 05/10/18 07:47 Dose: 3 ml Dextrose (Dextrose 50% Inj) 0 ml IV STAT PRN; Protocol PRN Reason: Hypoglycemia Protocol Dextrose (Glutose 15) 0 gm PO ONCE PRN; Protocol PRN Reason: Hypoglycemia Protocol Ethambutol HCl (Myambutol) 1,200 mg PO TTS [facility]; Protocol Last Admin: 05/09/18 10:41 Dose: 1,200 mg Folic Acid (Folic Acid) 1 mg PO DAILY [facility] Last Admin: 05/10/18 10:24 Dose: 1 mg Glucagon (Glucagen Diagnostic Kit) 0 mg IM STAT PRN; Protocol PRN Reason: Hypoglycemia Protocol Aztreonam 1 gm/ Sodium (Chloride) 100 mls @ 200 mls/hr IVPB Q8H [facility]; Protocol Last Admin: 05/10/18 13:09 Dose: 200 mls/hr Dextrose (Dextrose 5% In Water 1000 Ml) 1,000 mls @ 0 mls/hr IV .Q0M PRN; Protocol PRN Reason: Hypoglycemia Protocol Daptomycin 300 mg/ Sodium (Chloride) 100 mls @ 200 mls/hr IV Q48H [facility] Norepinephrine Bitartrate 4 mg (/ Sodium Chloride) 254 mls @ 19.05 mls/hr IV .[id number] PRN; Protocol PRN Reason: TITRATE PER MD ORDER Last Titration: 05/10/18 04:30 Dose: 2.96 mcg/min, 11.3 mls/hr Sodium Chloride (Sodium Chloride 0.9%) 1,000 mls @ 100 mls/hr IV .Q10H [facility] Insulin Human Regular (Novolin R) 0 unit SC ACHS [facility]; Protocol Last Admin: 05/10/18 17:10 Dose: 2 u Isoniazid (Niazid) 300 mg PO DAILY [facility]; Protocol Last Admin: 05/10/18 10:24 Dose: 300 mg Levothyroxine Sodium (Levothyroxine) 200 mcg IVP DAILY@0630 [facility] Last Admin: 05/10/18 10:23 Dose: 200 mcg Methylprednisolone (Solu-Medrol) 60 mg IVP Q8H [facility] Last Admin: 05/10/18 13:09 Dose: 60 mg Pantoprazole Sodium (Protonix Ec Tab) 40 mg PO DAILY [facility] Last Admin: 05/10/18 10:23 Dose: 40 mg Pyridoxine HCl (Vitamin B6 50 Mg Tab) 50 mg PO DAILY [facility] Last Admin: 05/10/18 10:23 Dose: 50 mg Rifampin (Rifampin Cap) 600 mg PO DAILY [facility]; Protocol Last Admin: 05/10/18 10:22 Dose: 600 mg Tacrolimus (Prograf) 5 mg PO BID [facility] Last Admin: 05/10/18 10:22 Dose: 5 mg - Labs Labs: 05/10/18 06:11 05/10/18 06:11 PT 28.3 SECONDS (9.7-12.2) H D 05/10/18 06:11 INR 2.6 D 05/10/18 06:11 APTT 62 SECONDS (21-34) H 05/10/18 06:11 - Constitutional Appears: Toxic, Confused, Cachectic, Chronically Ill - Head Exam Head Exam: NORMOCEPHALIC - Eye Exam Eye Exam: absent: Scleral icterus Pupil Exam: NORMAL ACCOMODATION - ENT Exam ENT Exam: Mucous Membranes Dry - Neck Exam Neck Exam: absent: Lymphadenopathy - Respiratory Exam Respiratory Exam: Decreased Breath Sounds - Cardiovascular Exam Cardiovascular Exam: REGULAR RHYTHM - GI/Abdominal Exam GI & Abdominal Exam: Distended, Soft. absent: Tenderness - Rectal Exam Rectal Exam: Deferred - Extremities Exam Extremities Exam: absent: Pedal Edema Additional comments: left knee swelling less - Back Exam Back Exam: absent: CVA tenderness (L), CVA tenderness (R) - Neurological Exam Neurological Exam: Alert, Altered, Awake - Psychiatric Exam Psychiatric exam: Depressed - Skin Skin Exam: Dry Assessment and Plan (1) Acute confusion Status: Acute (2) Exfoliative dermatitis Status: Acute (3) Hypothermia Status: Acute (4) Sepsis Status: Acute (5) Anemia Status: Acute (6) Bronchiectasis with acute exacerbation Status: Acute (7) CKD (chronic kidney disease) stage 3, GFR 30-59 ml/min Status: Acute (8) COPD bronchitis Status: Acute (9) Cardiomyopathy Status: Acute (10) Chronic atrial fibrillation Status: Acute (11) Chronic kidney disease, stage III (moderate) Status: Acute (12) DM type 2 (diabetes mellitus, type 2) Status: Acute (13) Gout Status: Acute (14) HTN (hypertension), benign Status: Acute (15) History of kidney transplant Status: Acute (16) Kidney transplant recipient Status: Acute (17) SIRS (systemic inflammatory response syndrome) Status: Acute (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 - Assessment and Plan (Free Text) Assessment: remains septic cardio on board - to eval echo ortho on board all cultures neg thus far cont Dapto/ Merrem/ Mycamine / TB meds
[2018-05-10] MEDS: Sodium Chloride 0.9% 1,000 ML IV SCH (18:44)
[2018-05-10] MEDS ORDERED: Meropenem 1 GM in Sodium Chloride 0.9% 100 ML IVPB ONE (19:30)
[2018-05-10] MEDS ORDERED: Meropenem 500 MG in Sodium Chloride 0.9% 100 ML IVPB SCH (20:00)
[2018-05-10] MEDS: Micafungin 100 MG in Sodium Chloride 0.9% 100 ML IV SCH (20:48)
[2018-05-10] MEDS ORDERED: Digoxin 500 mcg/2ml (0.5 mg/2ml) Inj IVP ONE (20:56)
[2018-05-10 21:10] VITALS: PULSE 156
[2018-05-10] MEDS: Phenylephrine 30 MG in Dextrose 5% In Water 250 ML IV PRN (21:22)
--- NOTE | 2018-05-10 22:58 | PN ---
DATE: 05/10/2018 ENDOCRINOLOGY FOLLOWUP NOTE LOCATION: ICU room 10. 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 He also has underlying hypertrophic cardiomyopathy and also with a defibrillator in place as noted. His glucose levels are fluctuating but improved at the range of 190 to 210 mg/dL. His latest chemistry showed a BUN of 27, sodium 141, potassium 4.6, chloride 105, CO2 of 21, glucose 167, and creatinine 2.6. His latest thyroid studies showed a T4 of 4.19 with a free T4 of 1.78 and a TSH of 19.34. This is remarkably improved since admission. So at this time, we will continue the levothyroxine given parenterally at 200 mcg IV push once daily in the morning as ordered. We will obtain serum chemistries and supplement accordingly as needed. We will also obtain serial thyroid studies and adjust levothyroxine dose accordingly. We will follow. Isamar Shane MD
[2018-05-11] MEDS: Albuterol-Ipratrop 3 mg / 0.5 (3 ml) UD INH SCH ×3 (01:00→16:40)
[2018-05-11] MEDS ORDERED: Meropenem 500 MG in Sodium Chloride 0.9% 100 ML IVPB SCH ×2 (03:30→10:00)
[2018-05-11] MEDS: Sodium Chloride 0.9% 1,000 ML IV SCH ×2 (04:00→06:31)
[2018-05-11] MEDS: MethylPREDNISolone 40 mg Vial IVP SCH (06:22)
[2018-05-11] MEDS: Levothyroxine 200 mcg (0.2 mg) Inj IVP SCH (06:23)
[2018-05-11 06:42] LABS: BASO % 0.5 % (0.0-2.0); EOS % 0.1 % (0.0-4.0); HEMOGLOBIN 7.4 g/dL (12.0-18.0); LYMPH # 0.4 K/uL (1.0-4.3); LYMPH % 3.7 % (20.0-40.0); MEAN CELL VOLUME 89.5 fL (80.0-94.0); MEAN CORPUSCULAR HEMOGLOBIN 30.5 pg (27.0-31.0); MEAN CORPUSCULAR HGB CONC 34.1 g/dL (33.0-37.0); MEAN PLATELET VOLUME 8.4 fL (7.2-11.7); MONO # 0.4 K/uL (0.0-0.8); MONO % 4.3 % (0.0-10.0); NEUT # 9.3 K/uL (1.8-7.0); NEUT % 91.4 % (50.0-75.0); PLATELET COUNT 178 K/uL (130-400); RBC 2.41 Mil/uL (4.40-5.90); RED CELL DISTRIBUTION WIDTH 26.1 % (11.5-14.5); WHITE BLOOD COUNT 10.2 K/uL (4.8-10.8)
[2018-05-11 06:51] LABS: INR 2.9; PROTHROMBIN TIME 32.2 SECONDS (9.7-12.2)
[2018-05-11 06:54] LABS: ALB/GLOB RATIO 1.1 (1.0-2.1); ALBUMIN 2.8 g/dL (3.5-5.0); CALCIUM 6.6 mg/dl (8.6-10.4)
[2018-05-11] MEDS: (Novolin R) Insulin Human Regular 100 units/ml vial SC SCH ×4 (07:40→21:37)
--- NOTE | 2018-05-11 08:42 | CP.PCM.PN ---
Subjective - Date & Time of Evaluation Date of Evaluation: 05/11/18 Time of Evaluation: 08:39 - Subjective Subjective: More confused Now tachy- appears to be AFib, VR-130s; poor response to dig. earlier Increasingly oliguric- 200ml/ 24 hrs; creat incresed to 2.8 pressors changed to phenylephrine due to tachycardia tacro level pending; remains on oral tacro, iv steroids for IS Multiple antimicrobials in place for presumed sepsis; pancultures sent Remains on supportive IV NS fluids Objective - Vital Signs/Intake and Output Vital Signs (last 24 hours): Temp Pulse Resp BP Pulse Ox 97.5 F L 89 14 118/29 L 98 05/11/18 04:00 05/11/18 06:30 05/11/18 06:30 05/11/18 06:02 05/11/18 06:30 Intake and Output: 05/11/18 05/11/18 06:59 18:59 Intake Total 1428.4 100 Output Total 200 Balance 1228.4 100 - Medications Medications: Current Medications Albuterol/Ipratropium (Duoneb 3 Mg/0.5 Mg (3 Ml) Ud) 3 ml INH RQ8 [facility] Last Admin: 05/11/18 07:28 Dose: 3 ml Dextrose (Dextrose 50% Inj) 0 ml IV STAT PRN; Protocol PRN Reason: Hypoglycemia Protocol Dextrose (Glutose 15) 0 gm PO ONCE PRN; Protocol PRN Reason: Hypoglycemia Protocol Ethambutol HCl (Myambutol) 1,200 mg PO TTS [facility]; Protocol Last Admin: 05/09/18 10:41 Dose: 1,200 mg Folic Acid (Folic Acid) 1 mg PO DAILY [facility] Last Admin: 05/10/18 10:24 Dose: 1 mg Glucagon (Glucagen Diagnostic Kit) 0 mg IM STAT PRN; Protocol PRN Reason: Hypoglycemia Protocol Dextrose (Dextrose 5% In Water 1000 Ml) 1,000 mls @ 0 mls/hr IV .Q0M PRN; Protocol PRN Reason: Hypoglycemia Protocol Daptomycin 300 mg/ Sodium (Chloride) 100 mls @ 200 mls/hr IV Q48H [facility] Last Admin: 05/10/18 18:31 Dose: 200 mls/hr Sodium Chloride (Sodium Chloride 0.9%) 1,000 mls @ 100 mls/hr IV .Q10H [facility] Last Admin: 05/11/18 06:31 Dose: 100 mls/hr Micafungin Sodium 100 mg/ (Sodium Chloride) 100 mls @ 100 mls/hr IV Q24H [facility]; Protocol Last Admin: 05/10/18 20:48 Dose: 100 mls/hr Meropenem 500 mg/ Sodium (Chloride) 100 mls @ 100 mls/hr IVPB Q8H [facility]; Protocol Last Admin: 05/11/18 02:52 Dose: 100 mls/hr Phenylephrine HCl 30 mg/ (Dextrose) 253 mls @ 10.12 mls/hr IV .Q24H PRN; Protocol PRN Reason: TITRATE PER MD ORDER Last Titration: 05/11/18 05:30 Dose: 0 mcg/min, 0 mls/hr Insulin Human Regular (Novolin R) 0 unit SC ACHS [facility]; Protocol Last Admin: 05/11/18 07:40 Dose: Not Given Isoniazid (Niazid) 300 mg PO DAILY [facility]; Protocol Last Admin: 05/10/18 10:24 Dose: 300 mg Levothyroxine Sodium (Levothyroxine) 200 mcg IVP DAILY@0630 [facility] Last Admin: 05/11/18 06:23 Dose: 200 mcg Methylprednisolone (Solu-Medrol) 60 mg IVP Q8H [facility] Last Admin: 05/11/18 06:22 Dose: 60 mg Pantoprazole Sodium (Protonix Ec Tab) 40 mg PO DAILY [facility] Last Admin: 05/10/18 10:23 Dose: 40 mg Pyridoxine HCl (Vitamin B6 50 Mg Tab) 50 mg PO DAILY [facility] Last Admin: 05/10/18 10:23 Dose: 50 mg Rifampin (Rifampin Cap) 600 mg PO DAILY [facility]; Protocol Last Admin: 05/10/18 10:22 Dose: 600 mg Tacrolimus (Prograf) 5 mg PO BID [facility] Last Admin: 05/10/18 18:16 Dose: 5 mg - Labs Labs: 05/11/18 06:32 05/11/18 06:32 PT 32.2 SECONDS (9.7-12.2) H 05/11/18 06:32 INR 2.9 05/11/18 06:32 APTT 54 SECONDS (21-34) H D 05/11/18 06:32 - Constitutional Appears: Toxic, In Acute Distress, Chronically Ill - Head Exam Head Exam: ATRAUMATIC, NORMAL INSPECTION - Eye Exam Eye Exam: EOMI, Normal appearance - Neck Exam Neck Exam: Normal Inspection. absent: Tenderness - Respiratory Exam Respiratory Exam: Rhonchi, Respiratory Distress - Cardiovascular Exam Cardiovascular Exam: Tachycardia, Irregular Rhythm - GI/Abdominal Exam GI & Abdominal Exam: Soft. absent: Tenderness - Extremities Exam Extremities Exam: Normal Inspection. 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
--- NOTE | 2018-05-11 08:46 | CP.PCM.PN ---
Subjective - Date & Time of Evaluation Date of Evaluation: 05/11/18 Time of Evaluation: 10:00 - Subjective Subjective: Family outside of patient room. Objective - Vital Signs/Intake and Output Vital Signs (last 24 hours): Temp Pulse Resp BP Pulse Ox 97.5 F L 89 14 118/29 L 98 05/11/18 04:00 05/11/18 06:30 05/11/18 06:30 05/11/18 06:02 05/11/18 06:30 Intake and Output: 05/11/18 05/11/18 06:59 18:59 Intake Total 1428.4 100 Output Total 200 Balance 1228.4 100 - Medications Medications: Current Medications Albuterol/Ipratropium (Duoneb 3 Mg/0.5 Mg (3 Ml) Ud) 3 ml INH RQ8 [facility] Last Admin: 05/11/18 07:28 Dose: 3 ml Dextrose (Dextrose 50% Inj) 0 ml IV STAT PRN; Protocol PRN Reason: Hypoglycemia Protocol Dextrose (Glutose 15) 0 gm PO ONCE PRN; Protocol PRN Reason: Hypoglycemia Protocol Ethambutol HCl (Myambutol) 1,200 mg PO TTS [facility]; Protocol Last Admin: 05/09/18 10:41 Dose: 1,200 mg Folic Acid (Folic Acid) 1 mg PO DAILY [facility] Last Admin: 05/10/18 10:24 Dose: 1 mg Glucagon (Glucagen Diagnostic Kit) 0 mg IM STAT PRN; Protocol PRN Reason: Hypoglycemia Protocol Dextrose (Dextrose 5% In Water 1000 Ml) 1,000 mls @ 0 mls/hr IV .Q0M PRN; Protocol PRN Reason: Hypoglycemia Protocol Daptomycin 300 mg/ Sodium (Chloride) 100 mls @ 200 mls/hr IV Q48H [facility] Last Admin: 05/10/18 18:31 Dose: 200 mls/hr Sodium Chloride (Sodium Chloride 0.9%) 1,000 mls @ 100 mls/hr IV .Q10H [facility] Last Admin: 05/11/18 06:31 Dose: 100 mls/hr Micafungin Sodium 100 mg/ (Sodium Chloride) 100 mls @ 100 mls/hr IV Q24H [facility]; Protocol Last Admin: 05/10/18 20:48 Dose: 100 mls/hr Meropenem 500 mg/ Sodium (Chloride) 100 mls @ 100 mls/hr IVPB Q8H [facility]; Protocol Last Admin: 05/11/18 02:52 Dose: 100 mls/hr Phenylephrine HCl 30 mg/ (Dextrose) 253 mls @ 10.12 mls/hr IV .Q24H PRN; Protocol PRN Reason: TITRATE PER MD ORDER Last Titration: 05/11/18 05:30 Dose: 0 mcg/min, 0 mls/hr Insulin Human Regular (Novolin R) 0 unit SC ACHS [facility]; Protocol Last Admin: 05/11/18 07:40 Dose: Not Given Isoniazid (Niazid) 300 mg PO DAILY [facility]; Protocol Last Admin: 05/10/18 10:24 Dose: 300 mg Levothyroxine Sodium (Levothyroxine) 200 mcg IVP DAILY@0630 [facility] Last Admin: 05/11/18 06:23 Dose: 200 mcg Methylprednisolone (Solu-Medrol) 60 mg IVP Q8H [facility] Last Admin: 05/11/18 06:22 Dose: 60 mg Pantoprazole Sodium (Protonix Ec Tab) 40 mg PO DAILY [facility] Last Admin: 05/10/18 10:23 Dose: 40 mg Pyridoxine HCl (Vitamin B6 50 Mg Tab) 50 mg PO DAILY [facility] Last Admin: 05/10/18 10:23 Dose: 50 mg Rifampin (Rifampin Cap) 600 mg PO DAILY [facility]; Protocol Last Admin: 05/10/18 10:22 Dose: 600 mg Tacrolimus (Prograf) 5 mg PO BID [facility] Last Admin: 05/10/18 18:16 Dose: 5 mg - Labs Labs: 05/11/18 06:32 05/11/18 06:32 PT 32.2 SECONDS (9.7-12.2) H 05/11/18 06:32 INR 2.9 05/11/18 06:32 APTT 54 SECONDS (21-34) H D 05/11/18 06:32 Assessment and Plan (1) Surgical wound dehiscence Assessment & Plan: d/w Dr. Tovar, no orthopedic intervention indicated at this time Dr. Tovar recommends plastic surgery consultation for non healing surgical wounds f/u wound care nurse evaluation PT/OT as appropriate d/w Dr. 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
[2018-05-11 08:52] LABS: BANDS 9 % (0-2); LYMPHOCYTE 2 % (20-40); MONOCYTE 3 % (0-10); NEUTROPHIL 86 % (50-75); PLATELET ESTIMATE NORMAL (NORMAL); TOTAL CELLS COUNTED 100
[2018-05-11 08:53] LABS: ANISOCYTOSIS MODERATE; HYPOCHROMIC SLIGHT; OVALOCYTES SLIGHT; POLYCHROMIC SLIGHT
[2018-05-11 08:54] LABS: BURR CELLS SLIGHT
[2018-05-11] MEDS: Pantoprazole 40 mg EC Tab PO SCH (09:47)
[2018-05-11] MEDS ORDERED: Multiple Vitamins Oral Solution PO SCH (10:00)
[2018-05-11] MEDS: Thiamine 100 mg/ml Inj IV SCH ×2 (10:45→17:35)
--- NOTE | 2018-05-11 10:47 | RAD ---
Chest x-ray single frontal view HISTORY: Congestion. COMPARISON: 05/08/2018 FINDINGS: Persistent mild to moderate venous congestion. Persistent patchy airspace opacities at both lung bases. Worsening small bilateral pleural effusions. Biapical pleural thickening with upper lobe granulomatous changes. Reticulated opacification seen within the right upper to mid lung zone as well as the left lung apex. Cardiomegaly. Calcification at the aortic knob. Left-sided pacemaker. Degenerative changes in the spine. Lines and tubes in stable position. Impression: Persistent mild to moderate venous congestion. Persistent patchy airspace opacities at both lung bases. Worsening small bilateral pleural effusions. Biapical pleural thickening with upper lobe granulomatous changes. Reticulated opacification seen within the right upper to mid lung zone as well as the left lung apex. Cardiomegaly. Calcification at the aortic knob. Left-sided pacemaker. Degenerative changes in the spine.
[2018-05-11] MEDS ORDERED: Multiple Vitamins Tab PO SCH (11:00)
[2018-05-11] MEDS: Meropenem 500 MG in Sodium Chloride 0.9% 100 ML IVPB SCH ×2 (11:00→23:00)
[2018-05-11] MEDS: Phenylephrine 30 MG in Dextrose 5% In Water 250 ML IV PRN (11:00)
[2018-05-11] MEDS: Albumin Human 25% (12.5 gm/50 ml) IV SCH ×3 (11:00→21:45)
--- NOTE | 2018-05-11 11:35 | CP.CCUPN ---
<Natasha Khan - Last Filed: 05/11/18 18:21> CCU Subjective - Physician Review Events Since Last Encounter (Free Text): 05/11/18 11:33 no over night events reported Subjective (Free Text): 05/11/18 11:33 Patient was seen and examined this morning. He is confused, talking to himself. He has a productive cough. Critical Care Time Spent (in minutes): 35 CCU Objective - Vital Signs / Intake & Output Vital Signs (Last 4 hours): Vital Signs Pulse Resp BP Pulse Ox 05/11/18 11:00 87 19 145/34 L 98 Intake and Output (Last 8hrs): Intake & Output 05/10/18 05/11/18 05/11/18 22:59 06:59 14:59 Intake Total 1145.0 965 350 Output Total 0 200 Balance 1145.0 765 350 Weight 120 lb 9.6 oz Intake: IV 132.3 0 250 Intake, IV Amount 912.7 915 100 Right 100 Right PICC 700 800 100 Right PICC Distal Port 112.7 115 Oral 100 50 0 Output: Urine 0 200 Urine, Voided 0 200 Stool 0 Emesis 0 Other: # Voids Urine, Voided 0 0 0 # Bowel Movements 0 0 0 - Physical Exam Head: Positive for: Atraumatic, Normocephalic Pupils: Positive for: PERRL Extroacular Muscles: Positive for: EOMI Conjunctiva: Positive for: Normal Mouth: Positive for: Dry Pharnyx: Negative for: ERYTHEMA Respiratory/Chest: Positive for: Clear to Auscultation. Negative for: Respira tory Distress, Accessory Muscle Use Cardiovascular: Positive for: Regular Rate and Rhythm, Normal S1, S2. Negative for: Murmurs Abdomen: Positive for: Normal Bowel Sounds. Negative for: Tenderness, Distention, Peritoneal Signs Upper Extremity: Positive for: Swelling, Erythema, Neurovascularly Intact, Other (PICC in RUE, skin sloughing) Lower Extremity: Positive for: Erythema, Neurovascularly Intact Neurological: Positive for: GCS=15, Other (much improved from presentation yesterday) Psychiatric: Positive for: Alert, Oriented x 3. Negative for: Agitated - Medications Active Medications: Active Medications Generic Name Dose Route Start Last Admin Trade Name Freq PRN Reason Stop Dose Admin Albumin Human 25 gm 05/11/18 10:00 05/11/18 11:00 Albumin Human 25% (12.5 Gm/50 Ml) IV 25 gm Q6H FAHEEM Administration Albuterol/Ipratropium 3 ml 05/09/18 00:00 05/11/18 07:28 Duoneb 3 Mg/0.5 Mg (3 Ml) Ud INH 3 ml RQ8 FAHEEM Administration Calcium Acetate 667 mg 05/11/18 10:00 05/11/18 09:43 Phoslo GT 667 mg TID FAHEEM Administration Collagenase 0 gm 05/11/18 10:45 Santyl TOP DAILY FAHEEM Cyanocobalamin 1,000 mcg 05/11/18 10:00 05/11/18 11:00 Vitamin B12 1000 Mcg/Ml Inj IM 1,000 mcg DAILY FAHEEM Administration Dextrose 0 ml 05/08/18 17:53 Dextrose 50% Inj IV STAT PRN Hypoglycemia Protocol Protocol Dextrose 0 gm 05/08/18 17:53 Glutose 15 PO ONCE PRN Hypoglycemia Protocol Protocol Ethambutol HCl 1,200 mg 05/09/18 10:00 05/11/18 09:42 Myambutol PO 1,200 mg TTS FAHEEM Administration Protocol Folic Acid 1 mg 05/09/18 10:00 05/11/18 09:43 Folic Acid PO 1 mg DAILY FAHEEM Administration Furosemide 40 mg 05/11/18 10:00 05/11/18 11:00 Lasix IVP 40 mg DAILY FAHEEM Administration Glucagon 0 mg 05/08/18 17:53 Glucagen Diagnostic Kit IM STAT PRN Hypoglycemia Protocol Protocol Hydrocortisone Sodium Succinate 100 mg 05/11/18 10:00 05/11/18 11:00 Solu-Cortef IV 100 mg Q8H FAHEEM Administration Dextrose 1,000 mls @ 0 mls/hr 05/08/18 17:53 Dextrose 5% In Water 1000 Ml IV .Q0M PRN Hypoglycemia Protocol Protocol Per Protocol Daptomycin 300 mg/ Sodium 100 mls @ 200 mls/hr 05/10/18 18:30 05/10/18 18:31 Chloride IV 200 mls/hr Q48H FAHEEM Administration Micafungin Sodium 100 mg/ 100 mls @ 100 mls/hr 05/10/18 20:00 05/10/18 20:48 Sodium Chloride IV 100 mls/hr Q24H FAHEEM Administration Protocol Phenylephrine HCl 30 mg/ 253 mls @ 10.12 mls/hr 05/10/18 20:56 05/11/18 11:00 Dextrose IV 79.05 mcg/min .Q24H PRN 40 mls/hr TITRATE PER MD ORDER Administration Protocol 20 MCG/MIN Doxycycline Hyclate 100 mg/ 100 mls @ 100 mls/hr 05/11/18 10:00 05/11/18 10:00 Sodium Chloride IVPB 100 mls/hr Q12H FAHEEM Administration Protocol Meropenem 500 mg/ Sodium 100 mls @ 100 mls/hr 05/11/18 11:00 05/11/18 11:00 Chloride IVPB 100 mls/hr Q12H FAHEEM Administration Protocol Insulin Human Regular 0 unit 05/09/18 16:30 05/11/18 07:40 Novolin R SC Not Given ACHS FAHEEM Protocol Isoniazid 300 mg 05/09/18 10:00 05/11/18 09:42 Niazid PO 300 mg DAILY FAHEEM Administration Protocol Levothyroxine Sodium 200 mcg 05/10/18 10:00 05/11/18 06:23 Levothyroxine IVP 200 mcg DAILY@0630 FAHEEM Administration Multivitamins 1 tab 05/11/18 11:00 05/11/18 11:09 Hexavitamin PO 1 tab DAILY FAHEEM Administration Pantoprazole Sodium 40 mg 05/09/18 10:00 05/11/18 09:47 Protonix Ec Tab PO 40 mg DAILY FAHEEM Administration Pyridoxine HCl 50 mg 05/09/18 10:00 05/11/18 09:47 Vitamin B6 50 Mg Tab PO 50 mg DAILY FAHEEM Administration Rifampin 600 mg 05/09/18 10:00 05/11/18 09:48 Rifampin Cap PO 600 mg DAILY FAHEEM Administration Protocol Tacrolimus 5 mg 05/08/18 18:00 05/11/18 09:48 Prograf PO 5 mg BID FAHEEM Administration Thiamine HCl 200 mg 05/11/18 09:45 05/11/18 10:45 Vitamin B1 Inj IV 200 mg Q8H FAHEEM Administration Vitamin A 0 ea 05/11/18 18:00 Vitamin A & D Oint Ud Foilpak TOP BID FAHEEM - Patient Studies Lab Studies: Microbiology Studies 05/10/18 12:04 Gram Stain - Final Sputum Sputum Culture - Preliminary Gram Negative Ruben 05/08/18 12:50 Blood Culture - Preliminary Blood NO GROWTH AFTER 48 HOURS 05/08/18 12:20 Blood Culture - Preliminary Blood NO GROWTH AFTER 48 HOURS Lab Studies 05/11/18 05/11/18 05/11/18 Range/Units 07:25 06:32 06:32 WBC (4.8-10.8) K/uL RBC (4.40-5.90) Mil/uL Hgb (12.0-18.0) g/dL Hct (35.0-51.0) % MCV (80.0-94.0) fL MCH (27.0-31.0) pg MCHC (33.0-37.0) g/dL RDW (11.5-14.5) % Plt Count (130-400) K/uL MPV (7.2-11.7) fL Neut % (Auto) (50.0-75.0) % Lymph % (Auto) (20.0-40.0) % Leake % (Auto) (0.0-10.0) % Eos % (Auto) (0.0-4.0) % Baso % (Auto) (0.0-2.0) % Neut # (Auto) (1.8-7.0) K/uL Lymph # (Auto) (1.0-4.3) K/uL Leake # (Auto) (0.0-0.8) K/uL Eos # (Auto) (0.0-0.7) K/uL Baso # (Auto) (0.0-0.2) K/uL Neutrophils % (Manual) (50-75) % Band Neutrophils % (0-2) % Lymphocytes % (Manual) (20-40) % Monocytes % (Manual) (0-10) % Platelet Estimate (NORMAL) Polychromasia Hypochromasia (manual) Anisocytosis (manual) Ovalocytes David Cells PT 32.2 H (9.7-12.2) SECONDS INR 2.9 APTT 54 H D (21-34) SECONDS Fibrinogen (200-400) mg/dL Fibrin Degrad Products (NEGATIVE) Fibrin Degrad Prod, Qt (<10) ug/mL pO2 (30-55) mm/Hg VBG pH (7.32-7.43) VBG pCO2 (40-60) mmHg VBG HCO3 mmol/L VBG Total CO2 (22-28) mmol/L VBG O2 Sat (Calc) (40-65) % VBG Base Excess (0.0-2.0) mmol/L VBG Potassium (3.6-5.2) mmol/L Sodium 144 (132-148) mmol/l Chloride 106 (98-107) mmol/L Glucose (75-110) mg/dl Lactate (0.7-2.1) mmol/L Crit Value Called To Crit Value Called By Crit Value Read Back Blood Gas Notified Time Potassium 4.2 (3.6-5.2) mmol/L Carbon Dioxide 23 (22-30) mmol/L Anion Gap 20 (10-20) BUN 35 H (9-20) mg/dL Creatinine 2.8 H (0.8-1.5) mg/dL Est GFR ( Amer) 27 Est GFR (Non-Af Amer) 22 POC Glucose (mg/dL) 149 H (65-110) mg/dL Random Glucose 127 H (75-110) mg/dL Calcium 6.6 L (8.6-10.4) mg/dl Phosphorus 6.9 H (2.5-4.5) mg/dL Magnesium 2.0 (1.6-2.3) mg/dL Total Bilirubin 0.6 (0.2-1.3) mg/dL AST 21 (17-59) U/L ALT 16 L (21-72) U/L Alkaline Phosphatase 63 (38-126) U/L Total Protein 5.4 L (6.3-8.3) g/dL Albumin 2.8 L (3.5-5.0) g/dL Globulin 2.6 (2.2-3.9) gm/dL Albumin/Globulin Ratio 1.1 (1.0-2.1) Venous Blood Potassium (3.6-5.2) mmol/L C. difficile Ag & Toxin (NEGATIVE) 05/11/18 05/10/18 05/10/18 Range/Units 06:32 21:30 17:47 WBC 10.2 (4.8-10.8) K/uL RBC 2.41 L (4.40-5.90) Mil/uL Hgb 7.4 L (12.0-18.0) g/dL Hct 21.6 L (35.0-51.0) % MCV 89.5 (80.0-94.0) fL MCH 30.5 (27.0-31.0) pg MCHC 34.1 (33.0-37.0) g/dL RDW 26.1 H (11.5-14.5) % Plt Count 178 (130-400) K/uL MPV 8.4 (7.2-11.7) fL Neut % (Auto) 91.4 H (50.0-75.0) % Lymph % (Auto) 3.7 L (20.0-40.0) % Leake % (Auto) 4.3 (0.0-10.0) % Eos % (Auto) 0.1 (0.0-4.0) % Baso % (Auto) 0.5 (0.0-2.0) % Neut # (Auto) 9.3 H (1.8-7.0) K/uL Lymph # (Auto) 0.4 L (1.0-4.3) K/uL Leake # (Auto) 0.4 (0.0-0.8) K/uL Eos # (Auto) 0.0 (0.0-0.7) K/uL Baso # (Auto) 0.0 (0.0-0.2) K/uL Neutrophils % (Manual) 86 H (50-75) % Band Neutrophils % 9 H (0-2) % Lymphocytes % (Manual) 2 L (20-40) % Monocytes % (Manual) 3 (0-10) % Platelet Estimate Normal (NORMAL) Polychromasia Slight Hypochromasia (manual) Slight Anisocytosis (manual) Moderate Ovalocytes Slight David Cells Slight PT (9.7-12.2) SECONDS INR APTT (21-34) SECONDS Fibrinogen (200-400) mg/dL Fibrin Degrad Products (NEGATIVE) Fibrin Degrad Prod, Qt (<10) ug/mL pO2 26 L (30-55) mm/Hg VBG pH 7.49 H (7.32-7.43) VBG pCO2 59 (40-60) mmHg VBG HCO3 38.0 mmol/L VBG Total CO2 46.8 H (22-28) mmol/L VBG O2 Sat (Calc) 52.4 (40-65) % VBG Base Excess 18.3 H (0.0-2.0) mmol/L VBG Potassium 3.5 L (3.6-5.2) mmol/L Sodium 141.0 (132-148) mmol/l Chloride 97.0 L (98-107) mmol/L Glucose 700 H* D (75-110) mg/dl Lactate 3.4 H (0.7-2.1) mmol/L Crit Value Called To Leobardo arteaga Crit Value Called By Alexander Crit Value Read Back Y Blood Gas Notified Time 1751 Potassium (3.6-5.2) mmol/L Carbon Dioxide (22-30) mmol/L Anion Gap (10-20) BUN (9-20) mg/dL Creatinine (0.8-1.5) mg/dL Est GFR ( Amer) Est GFR (Non-Af Amer) POC Glucose (mg/dL) 167 H (65-110) mg/dL Random Glucose (75-110) mg/dL Calcium (8.6-10.4) mg/dl Phosphorus (2.5-4.5) mg/dL Magnesium (1.6-2.3) mg/dL Total Bilirubin (0.2-1.3) mg/dL AST (17-59) U/L ALT (21-72) U/L Alkaline Phosphatase (38-126) U/L Total Protein (6.3-8.3) g/dL Albumin (3.5-5.0) g/dL Globulin (2.2-3.9) gm/dL Albumin/Globulin Ratio (1.0-2.1) Venous Blood Potassium 3.5 L (3.6-5.2) mmol/L C. difficile Ag & Toxin (NEGATIVE) 05/10/18 05/10/18 05/10/18 Range/Units 16:04 14:24 11:29 WBC (4.8-10.8) K/uL RBC (4.40-5.90) Mil/uL Hgb (12.0-18.0) g/dL Hct (35.0-51.0) % MCV (80.0-94.0) fL MCH (27.0-31.0) pg MCHC (33.0-37.0) g/dL RDW (11.5-14.5) % Plt Count (130-400) K/uL MPV (7.2-11.7) fL Neut % (Auto) (50.0-75.0) % Lymph % (Auto) (20.0-40.0) % Leake % (Auto) (0.0-10.0) % Eos % (Auto) (0.0-4.0) % Baso % (Auto) (0.0-2.0) % Neut # (Auto) (1.8-7.0) K/uL Lymph # (Auto) (1.0-4.3) K/uL Leake # (Auto) (0.0-0.8) K/uL Eos # (Auto) (0.0-0.7) K/uL Baso # (Auto) (0.0-0.2) K/uL Neutrophils % (Manual) (50-75) % Band Neutrophils % (0-2) % Lymphocytes % (Manual) (20-40) % Monocytes % (Manual) (0-10) % Platelet Estimate (NORMAL) Polychromasia Hypochromasia (manual) Anisocytosis (manual) Ovalocytes [place] Cells PT (9.7-12.2) SECONDS INR APTT (21-34) SECONDS Fibrinogen 279 (200-400) mg/dL Fibrin Degrad Products Positive H (NEGATIVE) Fibrin Degrad Prod, Qt >40 H (<10) ug/mL pO2 (30-55) mm/Hg VBG pH (7.32-7.43) VBG pCO2 (40-60) mmHg VBG HCO3 mmol/L VBG Total CO2 (22-28) mmol/L VBG O2 Sat (Calc) (40-65) % VBG Base Excess (0.0-2.0) mmol/L VBG Potassium (3.6-5.2) mmol/L Sodium (132-148) mmol/l Chloride (98-107) mmol/L Glucose (75-110) mg/dl Lactate (0.7-2.1) mmol/L Crit Value Called To Crit Value Called By Crit Value Read Back Blood Gas Notified Time Potassium (3.6-5.2) mmol/L Carbon Dioxide (22-30) mmol/L Anion Gap (10-20) BUN (9-20) mg/dL Creatinine (0.8-1.5) mg/dL Est GFR ( Amer) Est GFR (Non-Af Amer) POC Glucose (mg/dL) 210 H 190 H (65-110) mg/dL Random Glucose (75-110) mg/dL Calcium (8.6-10.4) mg/dl Phosphorus (2.5-4.5) mg/dL Magnesium (1.6-2.3) mg/dL Total Bilirubin (0.2-1.3) mg/dL AST (17-59) U/L ALT (21-72) U/L Alkaline Phosphatase (38-126) U/L Total Protein (6.3-8.3) g/dL Albumin (3.5-5.0) g/dL Globulin (2.2-3.9) gm/dL Albumin/Globulin Ratio (1.0-2.1) Venous Blood Potassium (3.6-5.2) mmol/L C. difficile Ag & Toxin (NEGATIVE) 05/10/18 Range/Units 10:09 WBC (4.8-10.8) K/uL RBC (4.40-5.90) Mil/uL Hgb (12.0-18.0) g/dL Hct (35.0-51.0) % MCV (80.0-94.0) fL MCH (27.0-31.0) pg MCHC (33.0-37.0) g/dL RDW (11.5-14.5) % Plt Count (130-400) K/uL MPV (7.2-11.7) fL Neut % (Auto) (50.0-75.0) % Lymph % (Auto) (20.0-40.0) % Leake % (Auto) (0.0-10.0) % Eos % (Auto) (0.0-4.0) % Baso % (Auto) (0.0-2.0) % Neut # (Auto) (1.8-7.0) K/uL Lymph # (Auto) (1.0-4.3) K/uL Leake # (Auto) (0.0-0.8) K/uL Eos # (Auto) (0.0-0.7) K/uL Baso # (Auto) (0.0-0.2) K/uL Neutrophils % (Manual) (50-75) % Band Neutrophils % (0-2) % Lymphocytes % (Manual) (20-40) % Monocytes % (Manual) (0-10) % Platelet Estimate (NORMAL) Polychromasia Hypochromasia (manual) Anisocytosis (manual) Ovalocytes David Cells PT (9.7-12.2) SECONDS INR APTT (21-34) SECONDS Fibrinogen (200-400) mg/dL Fibrin Degrad Products (NEGATIVE) Fibrin Degrad Prod, Qt (<10) ug/mL pO2 (30-55) mm/Hg VBG pH (7.32-7.43) VBG pCO2 (40-60) mmHg VBG HCO3 mmol/L VBG Total CO2 (22-28) mmol/L VBG O2 Sat (Calc) (40-65) % VBG Base Excess (0.0-2.0) mmol/L VBG Potassium (3.6-5.2) mmol/L Sodium (132-148) mmol/l Chloride (98-107) mmol/L Glucose (75-110) mg/dl Lactate (0.7-2.1) mmol/L Crit Value Called To Crit Value Called By Crit Value Read Back Blood Gas Notified Time Potassium (3.6-5.2) mmol/L Carbon Dioxide (22-30) mmol/L Anion Gap (10-20) BUN (9-20) mg/dL Creatinine (0.8-1.5) mg/dL Est GFR ( Amer) Est GFR (Non-Af Amer) POC Glucose (mg/dL) (65-110) mg/dL Random Glucose (75-110) mg/dL Calcium (8.6-10.4) mg/dl Phosphorus (2.5-4.5) mg/dL Magnesium (1.6-2.3) mg/dL Total Bilirubin (0.2-1.3) mg/dL AST (17-59) U/L ALT (21-72) U/L Alkaline Phosphatase (38-126) U/L Total Protein (6.3-8.3) g/dL Albumin (3.5-5.0) g/dL Globulin (2.2-3.9) gm/dL Albumin/Globulin Ratio (1.0-2.1) Venous Blood Potassium (3.6-5.2) mmol/L C. difficile Ag & Toxin Negative (NEGATIVE) Laboratory Results - last 24 hr 05/10/18 05/10/18 05/10/18 10:09 11:29 14:24 WBC RBC Hgb Hct MCV MCH MCHC RDW Plt Count MPV Neut % (Auto) Lymph % (Auto) Leake % (Auto) Eos % (Auto) Baso % (Auto) Neut # (Auto) Lymph # (Auto) Leake # (Auto) Eos # (Auto) Baso # (Auto) Neutrophils % (Manual) Band Neutrophils % Lymphocytes % (Manual) Monocytes % (Manual) Platelet Estimate Polychromasia Hypochromasia (manual) Anisocytosis (manual) Ovalocytes David Cells PT INR APTT Fibrinogen 279 Fibrin Degrad Products Positive H Fibrin Degrad Prod, Qt >40 H pO2 VBG pH VBG pCO2 VBG HCO3 VBG Total CO2 VBG O2 Sat (Calc) VBG Base Excess VBG Potassium Sodium Chloride Glucose Lactate Crit Value Called To Crit Value Called By Crit Value Read Back Blood Gas Notified Time Potassium Carbon Dioxide Anion Gap BUN Creatinine Est GFR ( Amer) Est GFR (Non-Af Amer) POC Glucose (mg/dL) 190 H Random Glucose Calcium Phosphorus Magnesium Total Bilirubin AST ALT Alkaline Phosphatase Total Protein Albumin Globulin Albumin/Globulin Ratio Venous Blood Potassium C. difficile Ag & Toxin Negative 05/10/18 05/10/18 05/10/18 16:04 17:47 21:30 WBC RBC Hgb Hct MCV MCH MCHC RDW Plt Count MPV Neut % (Auto) Lymph % (Auto) Leake % (Auto) Eos % (Auto) Baso % (Auto) Neut # (Auto) Lymph # (Auto) Leake # (Auto) Eos # (Auto) Baso # (Auto) Neutrophils % (Manual) Band Neutrophils % Lymphocytes % (Manual) Monocytes % (Manual) Platelet Estimate Polychromasia Hypochromasia (manual) Anisocytosis (manual) Ovalocytes David Cells PT INR APTT Fibrinogen Fibrin Degrad Products Fibrin Degrad Prod, Qt pO2 26 L VBG pH 7.49 H VBG pCO2 59 VBG HCO3 38.0 VBG Total CO2 46.8 H VBG O2 Sat (Calc) 52.4 VBG Base Excess 18.3 H VBG Potassium 3.5 L Sodium 141.0 Chloride 97.0 L Glucose 700 H* D Lactate 3.4 H Crit Value Called To Leobardo arteaga Crit Value Called By Alexander Crit Value Read Back Y Blood Gas Notified Time 175 Potassium Carbon Dioxide Anion Gap BUN Creatinine Est GFR ( Amer) Est GFR (Non-Af Amer) POC Glucose (mg/dL) 210 H 167 H Random Glucose Calcium Phosphorus Magnesium Total Bilirubin AST ALT Alkaline Phosphatase Total Protein Albumin Globulin Albumin/Globulin Ratio Venous Blood Potassium 3.5 L C. difficile Ag & Toxin 05/11/18 05/11/18 05/11/18 06:32 06:32 06:32 WBC 10.2 RBC 2.41 L Hgb 7.4 L Hct 21.6 L MCV 89.5 MCH 30.5 MCHC 34.1 RDW 26.1 H Plt Count 178 MPV 8.4 Neut % (Auto) 91.4 H Lymph % (Auto) 3.7 L Leake % (Auto) 4.3 Eos % (Auto) 0.1 Baso % (Auto) 0.5 Neut # (Auto) 9.3 H Lymph # (Auto) 0.4 L Leake # (Auto) 0.4 Eos # (Auto) 0.0 Baso # (Auto) 0.0 Neutrophils % (Manual) 86 H Band Neutrophils % 9 H Lymphocytes % (Manual) 2 L Monocytes % (Manual) 3 Platelet Estimate Normal Polychromasia Slight Hypochromasia (manual) Slight Anisocytosis (manual) Moderate Ovalocytes Slight David Cells Slight PT 32.2 H INR 2.9 APTT 54 H D Fibrinogen Fibrin Degrad Products Fibrin Degrad Prod, Qt pO2 VBG pH VBG pCO2 VBG HCO3 VBG Total CO2 VBG O2 Sat (Calc) VBG Base Excess VBG Potassium Sodium 144 Chloride 106 Glucose Lactate Crit Value Called To Crit Value Called By Crit Value Read Back Blood Gas Notified Time Potassium 4.2 Carbon Dioxide 23 Anion Gap 20 BUN 35 H Creatinine 2.8 H Est GFR ( Amer) 27 Est GFR (Non-Af Amer) 22 POC Glucose (mg/dL) Random Glucose 127 H Calcium 6.6 L Phosphorus 6.9 H Magnesium 2.0 Total Bilirubin 0.6 AST 21 ALT 16 L Alkaline Phosphatase 63 Total Protein 5.4 L Albumin 2.8 L Globulin 2.6 Albumin/Globulin Ratio 1.1 Venous Blood Potassium C. difficile Ag & Toxin 05/11/18 07:25 WBC RBC Hgb Hct MCV MCH MCHC RDW Plt Count MPV Neut % (Auto) Lymph % (Auto) Leake % (Auto) Eos % (Auto) Baso % (Auto) Neut # (Auto) Lymph # (Auto) Leake # (Auto) Eos # (Auto) Baso # (Auto) Neutrophils % (Manual) Band Neutrophils % Lymphocytes % (Manual) Monocytes % (Manual) Platelet Estimate Polychromasia Hypochromasia (manual) Anisocytosis (manual) Ovalocytes [place] Cells PT INR APTT Fibrinogen Fibrin Degrad Products Fibrin Degrad Prod, Qt pO2 VBG pH VBG pCO2 VBG HCO3 VBG Total CO2 VBG O2 Sat (Calc) VBG Base Excess VBG Potassium Sodium Chloride Glucose Lactate Crit Value Called To Crit Value Called By Crit Value Read Back Blood Gas Notified Time Potassium Carbon Dioxide Anion Gap BUN Creatinine Est GFR ( Amer) Est GFR (Non-Af Amer) POC Glucose (mg/dL) 149 H Random Glucose Calcium Phosphorus Magnesium Total Bilirubin AST ALT Alkaline Phosphatase Total Protein Albumin Globulin Albumin/Globulin Ratio Venous Blood Potassium C. difficile Ag & Toxin Fingerstick Blood Sugar Results: 149 Review of Systems - Review of Systems Systems not reviewed;Unavailable: Altered Mental Status Critical Care Progress Note - Extremities/Vascular Does the Patient have a Central Venous Catheter?: No Does the Patient need a Central Venous Catheter?: No Does the Patient have a Ramires Catheter?: No Does the Patient need a Ramires Catheter?: No - Prophylaxis GI Prophylaxis GI: PPI - Prophylaxis DVT Prophylaxis DVT: Not Indicated - Nutrition Nutrition: Nutrition Category Date Time Status Liquid Diet [DIET] Diets 05/11/18 Breakfast Active Assessment/Plan - Assessment and Plan (Free Text) Assessment: Patient is a 72 yo male with multiple medical issues who presented with slurred speech and edematous upper extremities. Patient was found to be hypothermic, hypoglycemic, and hypotensive. 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 He has been taken off isolation. His mental status continues to wax and wane. He is weak with poor appetite and has a productive cough. Plan: Neuro: AMS- delirium - [place] patient - Neuro checks CV: Hypotension- septic shock - Monitor vitals- hypotension improving with drip - Levophed drip CHF (HFpEF) - CXR 05/11: mild-mod venous congestion, worsening small b/l pleural effusions, reticulated opacifiction in R upper-mid lung and L apex, cardiomegaly - CT chest/abd/pelvis: moderate b/l pleural effusions, chronic fibrotic changes, moderate pericardial effusions, diffuse anasarca - Echo: EF 66%, no vegetation seen, mild-mod TR, RV systolic pressure 40-50 mmHg, small-mod pericardial effusion - Discontinue IVF Afib - Eliquis 2.5 mg PO BID- hold due to increasing coags Pulm: - CXR 05/11: mild-mod venous congestion, worsening small b/l pleural effusions, reticulated opacifiction in R upper-mid lung and L apex, cardiomegaly - CT chest/abd/pelvis: moderate b/l pleural effusions, chronic fibrotic changes, moderate pericardial effusions, diffuse anasarca - Maintain spO2>92%- supplemental O2 PRN - Duoneb Q8H - Lasix 80 mg IV Q12H GI: Anasarca - CT chest/abd/pelvis: moderate b/l pleural effusions, chronic fibrotic changes, moderate pericardial effusions, diffuse anasarca - Decreased albumin (2.8) - Albumin 25 g IV Q6H - Clear liquid diet - Glucerna supplements x3 - Protonix 40 mg PO daily - CMP daily - Contracts Specialist consulted Renal: Renal failure - s/p R kidney transplant in 2004 - Oliguric - Renal u/s: no abnormalities visualized - CMP daily - Replete electrolytes PRN - Solu-cortef 100 mg IV Q8H - Tacrolimus 5 mg PO BID - Tacrolimus level low normal (6.8) - Nephrology consulted (Ghanshyam)- recommended HD, patient and family refused at this time Endo: T2DM - Maintain euglycemia - Hypoglycemia protocol - Accuchecks ACHS with low dose regular ISS Hypothyroidism - TSH improving (42.6->19.3), free T4 wnl - Thyroid Abs pending - Synthroid 200 mcg IV daily - Endocrinology consulted (Cam) Heme: Coagulopathy - PT/INR/PTT increasing- hold Eliquis - Fibrin wnl, and fibrinogen degradation products >40 - Anemic at BL- decreasing Hgb (7.4) - Monitor H&H - Folic acid 1 mg PO daily - Thiamine 200 mg IV Q8H ID: Septic shock - Temp 88.6 on admission, improved to 97.5 - Lactate wnl - Leukocytosis improving (sepsis vs steroids)- 9 bands - Procal 3.68 - Active warming protocol - Sputum Cx: GNR - Urine Cx no growth - Blood Cx no growth >24hrs - MRSA screen negative - HIV negative - C. diff negative - Continue Rifampin 600 mg PO daily - Continue Isoniazid 300 mg PO daily - Continue Ethambutol 1200 mg PO TTS - Continue Vit B6 50 mg PO daily - Aztreonam 1 g IV Q8H - Daptomycin 630 mg IV Q48H - Doxycycline 100 mg IV Q12H - Folic acid 1 mg PO daily - Thiamine 200 mg IV Q8H - Cyanocobalmin 1000 mcg IM daily - Ortho consulted ([place])- possible L knee joint aspiration - ID consulted ([facility]) PPx: VTE: contraindicated GI: PTX 40 mg PO daily PT/OT/ST Code status: DNR/DNI (POLST) Case discussed with attending, Dr. Malvin Barnett. PGY-1 Natasha Khan D.O. <Roman Barnett - Last Filed: 05/12/18 13:53> CCU Objective - Vital Signs / Intake & Output Vital Signs (Last 4 hours): Vital Signs Pulse Resp BP Pulse Ox 05/12/18 12:06 92 H 23 166/68 H 100 05/12/18 11:37 89 15 156/72 H 100 05/12/18 11:15 103/54 L 05/12/18 11:05 90 24 103/54 L 100 05/12/18 10:06 90 25 H 94/59 L 100 05/12/18 09:55 82 21 115/74 100 05/12/18 09:05 90 22 119/64 100 Intake and Output (Last 8hrs): Intake & Output 05/11/18 05/12/18 05/12/18 22:59 06:59 14:59 Intake Total 850 415 650 Output Total 150 Balance 850 265 650 Weight 120 lb 14.4 oz Intake: IV 165 Intake, IV Amount 440 100 450 Right 400 100 450 Right PICC Distal Port 40 Oral 360 200 Albumin 50 150 Output: Urine 150 Straight 150 Urine, Voided 0 Other: # Voids Urine, Voided 0 # Bowel Movements 4 - Medications Active Medications: Active Medications Generic Name Dose Route Start Last Admin Trade Name Freq PRN Reason Stop Dose Admin Albuterol/Ipratropium 3 ml 05/09/18 00:00 11/02/18 07:57 Duoneb 3 Mg/0.5 Mg (3 Ml) Ud INH 3 ml RQ8 FAHEEM Administration Calcium Acetate 667 mg 05/12/18 08:00 05/12/18 12:50 Phoslo PO Not Given TIDCC FAHEEM Collagenase 0 gm 05/11/18 11:00 05/12/18 11:17 Santyl TOP 1 oin DAILY FAHEEM Administration Cyanocobalamin 1,000 mcg 05/12/18 10:00 Vitamin B12 1000 Mcg Tab PO DAILY FAHEEM Dextrose 0 ml 05/08/18 17:53 Dextrose 50% Inj IV STAT PRN Hypoglycemia Protocol Protocol Dextrose 0 gm 05/08/18 17:53 Glutose 15 PO ONCE PRN Hypoglycemia Protocol Protocol Folic Acid 1 mg 05/09/18 10:00 05/12/18 11:14 Folic Acid PO 1 mg DAILY FAHEEM Administration Furosemide 80 mg 05/11/18 22:00 05/12/18 11:15 Lasix IVP 80 mg Q12 FAHEEM Administration Glucagon 0 mg 05/08/18 17:53 Glucagen Diagnostic Kit IM STAT PRN Hypoglycemia Protocol Protocol Hydrocortisone Sodium Succinate 100 mg 05/11/18 10:00 05/12/18 11:18 Solu-Cortef IV 100 mg Q8H FAHEEM Administration Dextrose 1,000 mls @ 0 mls/hr 05/08/18 17:53 Dextrose 5% In Water 1000 Ml IV .Q0M PRN Hypoglycemia Protocol Protocol Per Protocol Daptomycin 300 mg/ Sodium 100 mls @ 200 mls/hr 05/10/18 18:30 05/10/18 18:31 Chloride IV 200 mls/hr Q48H FAHEEM Administration Micafungin Sodium 100 mg/ 100 mls @ 100 mls/hr 05/10/18 20:00 05/11/18 20:31 Sodium Chloride IV 100 mls/hr Q24H FAHEEM Administration Protocol Phenylephrine HCl 30 mg/ 253 mls @ 10.12 mls/hr 05/10/18 20:56 05/11/18 23:00 Dextrose IV 0 mcg/min .Q24H PRN 0 mls/hr TITRATE PER MD ORDER Titration Protocol 20 MCG/MIN Doxycycline Hyclate 100 mg/ 100 mls @ 100 mls/hr 05/11/18 10:00 05/12/18 11:18 Sodium Chloride IVPB 100 mls/hr Q12H [facility] Administration Protocol Meropenem 500 mg/ Sodium 100 mls @ 100 mls/hr 05/11/18 11:00 05/12/18 11:16 Chloride IVPB 100 mls/hr Q12H [facility] Administration Protocol Phytonadione 10 mg/ Sodium 51 mls @ 102 mls/hr 05/12/18 10:00 05/12/18 11:19 Chloride IVPB 05/14/18 10:29 102 mls/hr DAILY [facility] Administration Insulin Human Regular 0 unit 05/09/18 16:30 05/12/18 11:44 Novolin R SC Not Given ACHS [facility] Protocol Isoniazid 300 mg 05/09/18 10:00 05/12/18 11:16 Niazid PO 300 mg DAILY [facility] Administration Protocol Lactic Acid 0 gm 05/12/18 07:00 05/12/18 11:14 Lac-Hydrin 12% Lotion (225 G) EXT 1 applic Q8 [facility] Administration Levothyroxine Sodium 200 mcg 05/10/18 10:00 05/12/18 06:50 Levothyroxine IVP 200 mcg DAILY@0630 [facility] Administration Multivitamins/Vitamin C 5 ml 05/12/18 10:00 05/12/18 12:49 Multi-Delyn Liquid PO 5 ml DAILY [facility] Administration Pantoprazole Sodium 40 mg 05/09/18 10:00 05/12/18 11:17 Protonix Ec Tab PO 40 mg DAILY [facility] Administration Pyridoxine HCl 50 mg 05/09/18 10:00 05/12/18 11:19 Vitamin B6 50 Mg Tab PO 50 mg DAILY [facility] Administration Rifampin 600 mg 05/09/18 10:00 05/12/18 11:17 Rifampin Cap PO 600 mg DAILY [facility] Administration Protocol Tacrolimus 5 mg 05/08/18 18:00 05/12/18 11:16 Prograf PO 5 mg BID [facility] Administration Thiamine HCl 200 mg 05/11/18 09:45 05/12/18 11:57 Vitamin B1 Inj IV 200 mg Q8H [facility] Administration Vitamin A 0 ea 05/11/18 18:00 05/12/18 11:18 Vitamin A & D Oint Ud Foilpak TOP 1 ea BID [facility] Administration - Patient Studies Lab Studies: Microbiology Studies 05/08/18 12:50 Blood Culture - Preliminary Blood NO GROWTH AFTER 4 DAYS 05/08/18 12:20 Blood Culture - Preliminary Blood NO GROWTH AFTER 4 DAYS 05/10/18 12:04 Gram Stain - Final Sputum Sputum Culture - Final Escherichia Coli Lab Studies 05/12/18 05/12/18 05/12/18 Range/Units 11:19 07:24 06:14 WBC (4.8-10.8) K/uL RBC (4.40-5.90) Mil/uL Hgb (12.0-18.0) g/dL Hct (35.0-51.0) % MCV (80.0-94.0) fL MCH (27.0-31.0) pg MCHC (33.0-37.0) g/dL RDW (11.5-14.5) % Plt Count (130-400) K/uL MPV (7.2-11.7) fL Neut % (Auto) (50.0-75.0) % Lymph % (Auto) (20.0-40.0) % Leake % (Auto) (0.0-10.0) % Eos % (Auto) (0.0-4.0) % Baso % (Auto) (0.0-2.0) % Neut # (Auto) (1.8-7.0) K/uL Lymph # (Auto) (1.0-4.3) K/uL Leake # (Auto) (0.0-0.8) K/uL Eos # (Auto) (0.0-0.7) K/uL Baso # (Auto) (0.0-0.2) K/uL Neutrophils % (Manual) (50-75) % Band Neutrophils % (0-2) % Lymphocytes % (Manual) (20-40) % Monocytes % (Manual) (0-10) % Nucleated RBC % (0-0) % Platelet Estimate (NORMAL) Polychromasia Hypochromasia (manual) Anisocytosis (manual) Ovalocytes PT (9.7-12.2) SECONDS INR APTT (21-34) SECONDS Sodium (132-148) mmol/L Potassium (3.6-5.2) mmol/L Chloride (98-107) mmol/L Carbon Dioxide (22-30) mmol/L Anion Gap (10-20) BUN (9-20) mg/dL Creatinine (0.8-1.5) mg/dL Est GFR ( Amer) Est GFR (Non-Af Amer) POC Glucose (mg/dL) 140 H 91 (65-110) mg/dL Random Glucose (75-110) mg/dL Calcium (8.6-10.4) mg/dl Phosphorus (2.5-4.5) mg/dL Magnesium (1.6-2.3) mg/dL Total Bilirubin (0.2-1.3) mg/dL AST (17-59) U/L ALT (21-72) U/L Alkaline Phosphatase (38-126) U/L Total Protein (6.3-8.3) g/dL Albumin (3.5-5.0) g/dL Globulin (2.2-3.9) gm/dL Albumin/Globulin Ratio (1.0-2.1) Vitamin B12 (239-931) pg/mL Folate ng/mL Free T4 2.00 (0.78-2.19) ng/dL Thyroxine (T4) (5.5-11.0) ug/dL TSH 3rd Generation (0.46-4.68) mIU/L Tacrolimus (LC/MS/MS) (5.0-20.0) mcg/L Thyroglobulin Antibody (< OR = 1) IU/mL Blood Type Antibody Screen 05/12/18 05/12/18 05/12/18 Range/Units 06:14 06:14 06:14 WBC 8.2 (4.8-10.8) K/uL RBC 2.23 L (4.40-5.90) Mil/uL Hgb 6.8 L (12.0-18.0) g/dL Hct 20.3 L (35.0-51.0) % MCV 91.2 (80.0-94.0) fL MCH 30.5 (27.0-31.0) pg MCHC 33.5 (33.0-37.0) g/dL RDW 26.9 H (11.5-14.5) % Plt Count 131 (130-400) K/uL MPV 8.1 (7.2-11.7) fL Neut % (Auto) 88.0 H (50.0-75.0) % Lymph % (Auto) 6.0 L (20.0-40.0) % Leake % (Auto) 5.5 (0.0-10.0) % Eos % (Auto) 0.3 (0.0-4.0) % Baso % (Auto) 0.2 (0.0-2.0) % Neut # (Auto) 7.3 H (1.8-7.0) K/uL Lymph # (Auto) 0.5 L (1.0-4.3) K/uL Leake # (Auto) 0.4 (0.0-0.8) K/uL Eos # (Auto) 0.0 (0.0-0.7) K/uL Baso # (Auto) 0.0 (0.0-0.2) K/uL Neutrophils % (Manual) 86 H (50-75) % Band Neutrophils % 3 H (0-2) % Lymphocytes % (Manual) 5 L (20-40) % Monocytes % (Manual) 6 (0-10) % Nucleated RBC % 1 H (0-0) % Platelet Estimate Normal (NORMAL) Polychromasia Slight Hypochromasia (manual) Slight Anisocytosis (manual) Moderate Ovalocytes Slight PT 54.5 H D (9.7-12.2) SECONDS INR 5.0 H* D APTT 57 H (21-34) SECONDS Sodium 145 (132-148) mmol/L Potassium 4.2 (3.6-5.2) mmol/L Chloride 107 (98-107) mmol/L Carbon Dioxide 18 L (22-30) mmol/L Anion Gap 24 H (10-20) BUN 39 H (9-20) mg/dL Creatinine 3.6 H (0.8-1.5) mg/dL Est GFR ( Amer) 20 Est GFR (Non-Af Amer) 17 POC Glucose (mg/dL) (65-110) mg/dL Random Glucose 82 (75-110) mg/dL Calcium 6.8 L (8.6-10.4) mg/dl Phosphorus 6.7 H (2.5-4.5) mg/dL Magnesium 2.0 (1.6-2.3) mg/dL Total Bilirubin 1.2 (0.2-1.3) mg/dL AST 107 H D (17-59) U/L ALT 19 L (21-72) U/L Alkaline Phosphatase 80 (38-126) U/L Total Protein 6.1 L (6.3-8.3) g/dL Albumin 4.0 (3.5-5.0) g/dL Globulin 2.1 L (2.2-3.9) gm/dL Albumin/Globulin Ratio 1.9 (1.0-2.1) Vitamin B12 > 1000 H (239-931) pg/mL Folate > 20.0 ng/mL Free T4 (0.78-2.19) ng/dL Thyroxine (T4) 3.04 L (5.5-11.0) ug/dL TSH 3rd Generation 4.03 (0.46-4.68) mIU/L Tacrolimus (LC/MS/MS) (5.0-20.0) mcg/L Thyroglobulin Antibody (< OR = 1) IU/mL Blood Type Antibody Screen 05/11/18 05/11/18 05/11/18 Range/Units 21:23 16:11 13:59 WBC (4.8-10.8) K/uL RBC (4.40-5.90) Mil/uL Hgb (12.0-18.0) g/dL Hct (35.0-51.0) % MCV (80.0-94.0) fL MCH (27.0-31.0) pg MCHC (33.0-37.0) g/dL RDW (11.5-14.5) % Plt Count (130-400) K/uL MPV (7.2-11.7) fL Neut % (Auto) (50.0-75.0) % Lymph % (Auto) (20.0-40.0) % Leake % (Auto) (0.0-10.0) % Eos % (Auto) (0.0-4.0) % Baso % (Auto) (0.0-2.0) % Neut # (Auto) (1.8-7.0) K/uL Lymph # (Auto) (1.0-4.3) K/uL Leake # (Auto) (0.0-0.8) K/uL Eos # (Auto) (0.0-0.7) K/uL Baso # (Auto) (0.0-0.2) K/uL Neutrophils % (Manual) (50-75) % Band Neutrophils % (0-2) % Lymphocytes % (Manual) (20-40) % Monocytes % (Manual) (0-10) % Nucleated RBC % (0-0) % Platelet Estimate (NORMAL) Polychromasia Hypochromasia (manual) Anisocytosis (manual) Ovalocytes PT (9.7-12.2) SECONDS INR APTT (21-34) SECONDS Sodium (132-148) mmol/L Potassium (3.6-5.2) mmol/L Chloride (98-107) mmol/L Carbon Dioxide (22-30) mmol/L Anion Gap (10-20) BUN (9-20) mg/dL Creatinine (0.8-1.5) mg/dL Est GFR ( Amer) Est GFR (Non-Af Amer) POC Glucose (mg/dL) 119 H 144 H (65-110) mg/dL Random Glucose (75-110) mg/dL Calcium (8.6-10.4) mg/dl Phosphorus (2.5-4.5) mg/dL Magnesium (1.6-2.3) mg/dL Total Bilirubin (0.2-1.3) mg/dL AST (17-59) U/L ALT (21-72) U/L Alkaline Phosphatase (38-126) U/L Total Protein (6.3-8.3) g/dL Albumin (3.5-5.0) g/dL Globulin (2.2-3.9) gm/dL Albumin/Globulin Ratio (1.0-2.1) Vitamin B12 (239-931) pg/mL Folate ng/mL Free T4 (0.78-2.19) ng/dL Thyroxine (T4) (5.5-11.0) ug/dL TSH 3rd Generation (0.46-4.68) mIU/L Tacrolimus (LC/MS/MS) (5.0-20.0) mcg/L Thyroglobulin Antibody (< OR = 1) IU/mL Blood Type O POSITIVE Antibody Screen Negative 05/11/18 05/11/18 05/10/18 Range/Units 11:17 06:32 07:06 WBC (4.8-10.8) K/uL RBC (4.40-5.90) Mil/uL Hgb (12.0-18.0) g/dL Hct (35.0-51.0) % MCV (80.0-94.0) fL MCH (27.0-31.0) pg MCHC (33.0-37.0) g/dL RDW (11.5-14.5) % Plt Count (130-400) K/uL MPV (7.2-11.7) fL Neut % (Auto) (50.0-75.0) % Lymph % (Auto) (20.0-40.0) % Leake % (Auto) (0.0-10.0) % Eos % (Auto) (0.0-4.0) % Baso % (Auto) (0.0-2.0) % Neut # (Auto) (1.8-7.0) K/uL Lymph # (Auto) (1.0-4.3) K/uL Leake # (Auto) (0.0-0.8) K/uL Eos # (Auto) (0.0-0.7) K/uL Baso # (Auto) (0.0-0.2) K/uL Neutrophils % (Manual) (50-75) % Band Neutrophils % (0-2) % Lymphocytes % (Manual) (20-40) % Monocytes % (Manual) (0-10) % Nucleated RBC % (0-0) % Platelet Estimate (NORMAL) Polychromasia Hypochromasia (manual) Anisocytosis (manual) Ovalocytes PT (9.7-12.2) SECONDS INR APTT (21-34) SECONDS Sodium (132-148) mmol/L Potassium (3.6-5.2) mmol/L Chloride (98-107) mmol/L Carbon Dioxide (22-30) mmol/L Anion Gap (10-20) BUN (9-20) mg/dL Creatinine (0.8-1.5) mg/dL Est GFR ( Amer) Est GFR (Non-Af Amer) POC Glucose (mg/dL) 119 H (65-110) mg/dL Random Glucose (75-110) mg/dL Calcium (8.6-10.4) mg/dl Phosphorus (2.5-4.5) mg/dL Magnesium (1.6-2.3) mg/dL Total Bilirubin (0.2-1.3) mg/dL AST (17-59) U/L ALT (21-72) U/L Alkaline Phosphatase (38-126) U/L Total Protein (6.3-8.3) g/dL Albumin (3.5-5.0) g/dL Globulin (2.2-3.9) gm/dL Albumin/Globulin Ratio (1.0-2.1) Vitamin B12 (239-931) pg/mL Folate ng/mL Free T4 (0.78-2.19) ng/dL Thyroxine (T4) (5.5-11.0) ug/dL TSH 3rd Generation (0.46-4.68) mIU/L Tacrolimus (LC/MS/MS) 4.6 L (5.0-20.0) mcg/L Thyroglobulin Antibody <1 (< OR = 1) IU/mL Blood Type Antibody Screen 05/09/18 Range/Units 17:26 WBC (4.8-10.8) K/uL RBC (4.40-5.90) Mil/uL Hgb (12.0-18.0) g/dL Hct (35.0-51.0) % MCV (80.0-94.0) fL MCH (27.0-31.0) pg MCHC (33.0-37.0) g/dL RDW (11.5-14.5) % Plt Count (130-400) K/uL MPV (7.2-11.7) fL Neut % (Auto) (50.0-75.0) % Lymph % (Auto) (20.0-40.0) % Leake % (Auto) (0.0-10.0) % Eos % (Auto) (0.0-4.0) % Baso % (Auto) (0.0-2.0) % Neut # (Auto) (1.8-7.0) K/uL Lymph # (Auto) (1.0-4.3) K/uL Leake # (Auto) (0.0-0.8) K/uL Eos # (Auto) (0.0-0.7) K/uL Baso # (Auto) (0.0-0.2) K/uL Neutrophils % (Manual) (50-75) % Band Neutrophils % (0-2) % Lymphocytes % (Manual) (20-40) % Monocytes % (Manual) (0-10) % Nucleated RBC % (0-0) % Platelet Estimate (NORMAL) Polychromasia Hypochromasia (manual) Anisocytosis (manual) Ovalocytes PT (9.7-12.2) SECONDS INR APTT (21-34) SECONDS Sodium (132-148) mmol/L Potassium (3.6-5.2) mmol/L Chloride (98-107) mmol/L Carbon Dioxide (22-30) mmol/L Anion Gap (10-20) BUN (9-20) mg/dL Creatinine (0.8-1.5) mg/dL Est GFR ( Amer) Est GFR (Non-Af Amer) POC Glucose (mg/dL) (65-110) mg/dL Random Glucose (75-110) mg/dL Calcium (8.6-10.4) mg/dl Phosphorus (2.5-4.5) mg/dL Magnesium (1.6-2.3) mg/dL Total Bilirubin (0.2-1.3) mg/dL AST (17-59) U/L ALT (21-72) U/L Alkaline Phosphatase (38-126) U/L Total Protein (6.3-8.3) g/dL Albumin (3.5-5.0) g/dL Globulin (2.2-3.9) gm/dL Albumin/Globulin Ratio (1.0-2.1) Vitamin B12 (239-931) pg/mL Folate ng/mL Free T4 (0.78-2.19) ng/dL Thyroxine (T4) (5.5-11.0) ug/dL TSH 3rd Generation (0.46-4.68) mIU/L Tacrolimus (LC/MS/MS) 6.8 (5.0-20.0) mcg/L Thyroglobulin Antibody (< OR = 1) IU/mL Blood Type Antibody Screen Laboratory Results - last 24 hr 05/09/18 05/10/18 05/11/18 17:26 07:06 06:32 WBC RBC Hgb Hct MCV MCH MCHC RDW Plt Count MPV Neut % (Auto) Lymph % (Auto) Leake % (Auto) Eos % (Auto) Baso % (Auto) Neut # (Auto) Lymph # (Auto) Leake # (Auto) Eos # (Auto) Baso # (Auto) Neutrophils % (Manual) Band Neutrophils % Lymphocytes % (Manual) Monocytes % (Manual) Nucleated RBC % Platelet Estimate Polychromasia Hypochromasia (manual) Anisocytosis (manual) Ovalocytes PT INR APTT Sodium Potassium Chloride Carbon Dioxide Anion Gap BUN Creatinine Est GFR ( Amer) Est GFR (Non-Af Amer) POC Glucose (mg/dL) Random Glucose Calcium Phosphorus Magnesium Total Bilirubin AST ALT Alkaline Phosphatase Total Protein Albumin Globulin Albumin/Globulin Ratio Vitamin B12 Folate Free T4 Thyroxine (T4) TSH 3rd Generation Tacrolimus (LC/MS/MS) 6.8 4.6 L Thyroglobulin Antibody <1 Blood Type Antibody Screen 05/11/18 05/11/18 05/11/18 11:17 13:59 16:11 WBC RBC Hgb Hct MCV MCH MCHC RDW Plt Count MPV Neut % (Auto) Lymph % (Auto) Leake % (Auto) Eos % (Auto) Baso % (Auto) Neut # (Auto) Lymph # (Auto) Leake # (Auto) Eos # (Auto) Baso # (Auto) Neutrophils % (Manual) Band Neutrophils % Lymphocytes % (Manual) Monocytes % (Manual) Nucleated RBC % Platelet Estimate Polychromasia Hypochromasia (manual) Anisocytosis (manual) Ovalocytes PT INR APTT Sodium Potassium Chloride Carbon Dioxide Anion Gap BUN Creatinine Est GFR ( Amer) Est GFR (Non-Af Amer) POC Glucose (mg/dL) 119 H 144 H Random Glucose Calcium Phosphorus Magnesium Total Bilirubin AST ALT Alkaline Phosphatase Total Protein Albumin Globulin Albumin/Globulin Ratio Vitamin B12 Folate Free T4 Thyroxine (T4) TSH 3rd Generation Tacrolimus (LC/MS/MS) Thyroglobulin Antibody Blood Type O POSITIVE Antibody Screen Negative 05/11/18 05/12/18 05/12/18 21:23 06:14 06:14 WBC 8.2 RBC 2.23 L Hgb 6.8 L Hct 20.3 L MCV 91.2 MCH 30.5 MCHC 33.5 RDW 26.9 H Plt Count 131 MPV 8.1 Neut % (Auto) 88.0 H Lymph % (Auto) 6.0 L Leake % (Auto) 5.5 Eos % (Auto) 0.3 Baso % (Auto) 0.2 Neut # (Auto) 7.3 H Lymph # (Auto) 0.5 L Leake # (Auto) 0.4 Eos # (Auto) 0.0 Baso # (Auto) 0.0 Neutrophils % (Manual) 86 H Band Neutrophils % 3 H Lymphocytes % (Manual) 5 L Monocytes % (Manual) 6 Nucleated RBC % 1 H Platelet Estimate Normal Polychromasia Slight Hypochromasia (manual) Slight Anisocytosis (manual) Moderate Ovalocytes Slight PT INR APTT Sodium 145 Potassium 4.2 Chloride 107 Carbon Dioxide 18 L Anion Gap 24 H BUN 39 H Creatinine 3.6 H Est GFR ( Amer) 20 Est GFR (Non-Af Amer) 17 POC Glucose (mg/dL) 119 H Random Glucose 82 Calcium 6.8 L Phosphorus 6.7 H Magnesium 2.0 Total Bilirubin 1.2 AST 107 H D ALT 19 L Alkaline Phosphatase 80 Total Protein 6.1 L Albumin 4.0 Globulin 2.1 L Albumin/Globulin Ratio 1.9 Vitamin B12 > 1000 H Folate > 20.0 Free T4 Thyroxine (T4) 3.04 L TSH 3rd Generation 4.03 Tacrolimus (LC/MS/MS) Thyroglobulin Antibody Blood Type Antibody Screen 05/12/18 05/12/18 05/12/18 06:14 06:14 07:24 WBC RBC Hgb Hct MCV MCH MCHC RDW Plt Count MPV Neut % (Auto) Lymph % (Auto) Leake % (Auto) Eos % (Auto) Baso % (Auto) Neut # (Auto) Lymph # (Auto) Leake # (Auto) Eos # (Auto) Baso # (Auto) Neutrophils % (Manual) Band Neutrophils % Lymphocytes % (Manual) Monocytes % (Manual) Nucleated RBC % Platelet Estimate Polychromasia Hypochromasia (manual) Anisocytosis (manual) Ovalocytes PT 54.5 H D INR 5.0 H* D APTT 57 H Sodium Potassium Chloride Carbon Dioxide Anion Gap BUN Creatinine Est GFR ( Amer) Est GFR (Non-Af Amer) POC Glucose (mg/dL) 91 Random Glucose Calcium Phosphorus Magnesium Total Bilirubin AST ALT Alkaline Phosphatase Total Protein Albumin Globulin Albumin/Globulin Ratio Vitamin B12 Folate Free T4 2.00 Thyroxine (T4) TSH 3rd Generation Tacrolimus (LC/MS/MS) Thyroglobulin Antibody Blood Type Antibody Screen 05/12/18 11:19 WBC RBC Hgb Hct MCV MCH MCHC RDW Plt Count MPV Neut % (Auto) Lymph % (Auto) Leake % (Auto) Eos % (Auto) Baso % (Auto) Neut # (Auto) Lymph # (Auto) Leake # (Auto) Eos # (Auto) Baso # (Auto) Neutrophils % (Manual) Band Neutrophils % Lymphocytes % (Manual) Monocytes % (Manual) Nucleated RBC % Platelet Estimate Polychromasia Hypochromasia (manual) Anisocytosis (manual) Ovalocytes PT INR APTT Sodium Potassium Chloride Carbon Dioxide Anion Gap BUN Creatinine Est GFR ( Amer) Est GFR (Non-Af Amer) POC Glucose (mg/dL) 140 H Random Glucose Calcium Phosphorus Magnesium Total Bilirubin AST ALT Alkaline Phosphatase Total Protein Albumin Globulin Albumin/Globulin Ratio Vitamin B12 Folate Free T4 Thyroxine (T4) TSH 3rd Generation Tacrolimus (LC/MS/MS) Thyroglobulin Antibody Blood Type Antibody Screen Critical Care Progress Note - Nutrition Nutrition: Nutrition Category Date Time Status Liquid Diet [DIET] Diets 05/11/18 Breakfast Active Assessment/Plan - Assessment and Plan (Free Text) Plan: Patient seen and examined at bedside. Patient has h/o TB (roca sensitive), h/o CKD stage III, on broad spectrum abx -continue treatment for TB, sputum AFB neg, continue rx as per ID -CKD stage III: continue rx a per renal -PAtient refused hemodialysis -continue albumin and titrate off phemephrine -monitor for dic -keep fibrinogen > 150 -contineu dvt/pud ppx -Goals of care: DNR/DNI. -Family unsure about HD, patinet refused; however patient's son wants patient to have HD. ADvised family to inform ICU tem when consensus obtained. above resident documents my clinical management and physical exam. - Date & Time Date: 05/11/18 Time: 19:00
[2018-05-11] MEDS: Collagenase 250 Units/gm Ointment(30 gm) TOP SCH (12:00)
--- NOTE | 2018-05-11 14:23 | CP.PCM.PCO ---
Addendum Addendum: Discussed with family (son, [id number], )- patient adamant about not having hemodialysis catheter. Risks, benefits, and alternatives to hemodialysis were explained. patient verbalized understanding. Continue to monitor.
--- NOTE | 2018-05-11 17:40 | CP.PCM.PN ---
Subjective - Date & Time of Evaluation Date of Evaluation: 05/11/18 Time of Evaluation: 09:00 - Subjective Subjective: confused and congested on pressors Objective - Vital Signs/Intake and Output Vital Signs (last 24 hours): Temp Pulse Resp BP Pulse Ox 97.6 F 79 20 128/48 L 98 05/11/18 16:00 05/11/18 17:00 05/11/18 17:00 05/11/18 16:53 05/11/18 17:00 Intake and Output: 05/11/18 05/11/18 06:59 18:59 Intake Total 1428.4 1386 Output Total 200 Balance 1228.4 1386 - Medications Medications: Current Medications Albumin Human (Albumin Human 25% (12.5 Gm/50 Ml)) 25 gm IV Q6H [facility] Last Admin: 05/11/18 16:00 Dose: 25 gm Albuterol/Ipratropium (Duoneb 3 Mg/0.5 Mg (3 Ml) Ud) 3 ml INH RQ8 [facility] Last Admin: 05/11/18 07:28 Dose: 3 ml Calcium Acetate (Phoslo) 667 mg GT TID [facility] Last Admin: 05/11/18 17:34 Dose: 667 mg Collagenase (Santyl) 0 gm TOP DAILY [facility] Last Admin: 05/11/18 12:00 Dose: 1 oin Cyanocobalamin (Vitamin B12 1000 Mcg/Ml Inj) 1,000 mcg IM DAILY [facility] Last Admin: 05/11/18 11:00 Dose: 1,000 mcg Dextrose (Dextrose 50% Inj) 0 ml IV STAT PRN; Protocol PRN Reason: Hypoglycemia Protocol Dextrose (Glutose 15) 0 gm PO ONCE PRN; Protocol PRN Reason: Hypoglycemia Protocol Ethambutol HCl (Myambutol) 1,200 mg PO TTS [facility]; Protocol Last Admin: 05/11/18 09:42 Dose: 1,200 mg Folic Acid (Folic Acid) 1 mg PO DAILY [facility] Last Admin: 05/11/18 09:43 Dose: 1 mg Furosemide (Lasix) 80 mg IVP Q12 [facility] Glucagon (Glucagen Diagnostic Kit) 0 mg IM STAT PRN; Protocol PRN Reason: Hypoglycemia Protocol Hydrocortisone Sodium Succinate (Solu-Cortef) 100 mg IV Q8H [facility] Last Admin: 05/11/18 17:34 Dose: 100 mg Dextrose (Dextrose 5% In Water 1000 Ml) 1,000 mls @ 0 mls/hr IV .Q0M PRN; Protocol PRN Reason: Hypoglycemia Protocol Daptomycin 300 mg/ Sodium (Chloride) 100 mls @ 200 mls/hr IV Q48H [facility] Last Admin: 05/10/18 18:31 Dose: 200 mls/hr Micafungin Sodium 100 mg/ (Sodium Chloride) 100 mls @ 100 mls/hr IV Q24H [facility]; Protocol Last Admin: 05/10/18 20:48 Dose: 100 mls/hr Phenylephrine HCl 30 mg/ (Dextrose) 253 mls @ 10.12 mls/hr IV .Q24H PRN; Protocol PRN Reason: TITRATE PER MD ORDER Last Admin: 05/11/18 11:00 Dose: 79.05 mcg/min, 40 mls/hr Doxycycline Hyclate 100 mg/ (Sodium Chloride) 100 mls @ 100 mls/hr IVPB Q12H [facility]; Protocol Last Admin: 05/11/18 10:00 Dose: 100 mls/hr Meropenem 500 mg/ Sodium (Chloride) 100 mls @ 100 mls/hr IVPB Q12H [facility]; P rotocol Last Admin: 05/11/18 11:00 Dose: 100 mls/hr Insulin Human Regular (Novolin R) 0 unit SC ACHS [facility]; Protocol Last Admin: 05/11/18 16:57 Dose: Not Given Isoniazid (Niazid) 300 mg PO DAILY [facility]; Protocol Last Admin: 05/11/18 09:42 Dose: 300 mg Levothyroxine Sodium (Levothyroxine) 200 mcg IVP DAILY@0630 [facility] Last Admin: 05/11/18 06:23 Dose: 200 mcg Multivitamins (Hexavitamin) 1 tab PO DAILY [facility] Last Admin: 05/11/18 11:09 Dose: 1 tab Pantoprazole Sodium (Protonix Ec Tab) 40 mg PO DAILY [facility] Last Admin: 05/11/18 09:47 Dose: 40 mg Pyridoxine HCl (Vitamin B6 50 Mg Tab) 50 mg PO DAILY [facility] Last Admin: 05/11/18 09:47 Dose: 50 mg Rifampin (Rifampin Cap) 600 mg PO DAILY [facility]; Protocol Last Admin: 05/11/18 09:48 Dose: 600 mg Tacrolimus (Prograf) 5 mg PO BID [facility] Last Admin: 05/11/18 17:34 Dose: 5 mg Thiamine HCl (Vitamin B1 Inj) 200 mg IV Q8H [facility] Last Admin: 05/11/18 17:35 Dose: 200 mg Vitamin A (Vitamin A & D Oint Ud Foilpak) 0 ea TOP BID [facility] - Labs Labs: 05/11/18 06:32 05/11/18 06:32 PT 32.2 SECONDS (9.7-12.2) H 05/11/18 06:32 INR 2.9 05/11/18 06:32 APTT 54 SECONDS (21-34) H D 05/11/18 06:32 - Constitutional Appears: Confused, Cachectic, Chronically Ill - Head Exam Head Exam: NORMOCEPHALIC - Eye Exam Eye Exam: absent: Scleral icterus - ENT Exam ENT Exam: Mucous Membranes Dry - Neck Exam Neck Exam: absent: Lymphadenopathy - Respiratory Exam Respiratory Exam: Prolonged Expiratory Phase - Cardiovascular Exam Cardiovascular Exam: REGULAR RHYTHM - GI/Abdominal Exam GI & Abdominal Exam: Distended - Rectal Exam Rectal Exam: Deferred - Exam Exam: NORMAL INSPECTION - Extremities Exam Extremities Exam: absent: Pedal Edema - Back Exam Back Exam: absent: CVA tenderness (L), CVA tenderness (R) Assessment and Plan (1) Acute confusion Status: Acute (2) Exfoliative dermatitis Status: Acute (3) Hypothermia Status: Acute (4) Sepsis Status: Acute (5) Anemia Status: Acute (6) Bronchiectasis with acute exacerbation Status: Acute (7) CKD (chronic kidney disease) stage 3, GFR 30-59 ml/min Status: Acute (8) COPD bronchitis Status: Acute (9) Cardiomyopathy Status: Acute (10) Chronic atrial fibrillation Status: Acute (11) Chronic kidney disease, stage III (moderate) Status: Acute (12) DM type 2 (diabetes mellitus, type 2) Status: Acute (13) Gout Status: Acute (14) HTN (hypertension), benign Status: Acute (15) History of kidney transplant Status: Acute (16) Kidney transplant recipient Status: Acute (17) SIRS (systemic inflammatory response syndrome) Status: Acute (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 - Assessment and Plan (Free Text) Assessment: cont iv antibiotics Cubicin/ merrem/ mycamine + TB meds may need HD
[2018-05-11] MEDS: Vitamins A & D Oint UD Foilpak TOP SCH (17:47)
[2018-05-11] MEDS: Micafungin 100 MG in Sodium Chloride 0.9% 100 ML IV SCH (20:31)
--- NOTE | 2018-05-11 23:38 | CP.PCM.PN ---
Subjective - Date & Time of Evaluation Date of Evaluation: 05/11/18 Time of Evaluation: 20:30 - Subjective Subjective: Patient confused, short of breath. Off vasopressor. Poor urine output with raising creatinine. CXR revealed CHF. IVF held and patient was started on Lasix 80 mg IV q 12h. Objective - Vital Signs/Intake and Output Vital Signs (last 24 hours): Temp Pulse Resp BP Pulse Ox 97.6 F 87 22 109/55 L 100 05/11/18 16:00 05/11/18 19:24 05/11/18 19:24 05/11/18 21:44 05/11/18 19:24 Intake and Output: 05/11/18 05/12/18 18:59 06:59 Intake Total 1904 Balance 1904 - Medications Medications: Current Medications Albumin Human (Albumin Human 25% (12.5 Gm/50 Ml)) 25 gm IV Q6H [facility] Last Admin: 05/11/18 21:45 Dose: 25 gm Albuterol/Ipratropium (Duoneb 3 Mg/0.5 Mg (3 Ml) Ud) 3 ml INH RQ8 [facility] Last Admin: 05/11/18 16:40 Dose: 3 ml Calcium Acetate (Phoslo) 667 mg GT TID [facility] Last Admin: 05/11/18 17:34 Dose: 667 mg Collagenase (Santyl) 0 gm TOP DAILY [facility] Last Admin: 05/11/18 12:00 Dose: 1 oin Cyanocobalamin (Vitamin B12 1000 Mcg/Ml Inj) 1,000 mcg IM DAILY [facility] Last Admin: 05/11/18 11:00 Dose: 1,000 mcg Dextrose (Dextrose 50% Inj) 0 ml IV STAT PRN; Protocol PRN Reason: Hypoglycemia Protocol Dextrose (Glutose 15) 0 gm PO ONCE PRN; Protocol PRN Reason: Hypoglycemia Protocol Ethambutol HCl (Myambutol) 1,200 mg PO TTS [facility]; Protocol Last Admin: 05/11/18 09:42 Dose: 1,200 mg Folic Acid (Folic Acid) 1 mg PO DAILY [facility] Last Admin: 05/11/18 09:43 Dose: 1 mg Furosemide (Lasix) 80 mg IVP Q12 [facility] Last Admin: 05/11/18 21:44 Dose: 80 mg Glucagon (Glucagen Diagnostic Kit) 0 mg IM STAT PRN; Protocol PRN Reason: Hypoglycemia Protocol Hydrocortisone Sodium Succinate (Solu-Cortef) 100 mg IV Q8H [facility] Last Admin: 05/11/18 17:34 Dose: 100 mg Dextrose (Dextrose 5% In Water 1000 Ml) 1,000 mls @ 0 mls/hr IV .Q0M PRN; Protocol PRN Reason: Hypoglycemia Protocol Daptomycin 300 mg/ Sodium (Chloride) 100 mls @ 200 mls/hr IV Q48H [facility] Last Admin: 05/10/18 18:31 Dose: 200 mls/hr Micafungin Sodium 100 mg/ (Sodium Chloride) 100 mls @ 100 mls/hr IV Q24H [facility]; Protocol Last Admin: 05/11/18 20:31 Dose: 100 mls/hr Phenylephrine HCl 30 mg/ (Dextrose) 253 mls @ 10.12 mls/hr IV .Q24H PRN; Protocol PRN Reason: TITRATE PER MD ORDER Last Titration: 05/11/18 13:30 Dose: 39.52 mcg/min, 20 mls/hr Doxycycline Hyclate 100 mg/ (Sodium Chloride) 100 mls @ 100 mls/hr IVPB Q12H [facility]; Protocol Last Admin: 05/11/18 21:44 Dose: 100 mls/hr Meropenem 500 mg/ Sodium (Chloride) 100 mls @ 100 mls/hr IVPB Q12H [facility]; Protocol Last Admin: 05/11/18 11:00 Dose: 100 mls/hr Insulin Human Regular (Novolin R) 0 unit SC ACHS [facility]; Protocol Last Admin: 05/11/18 21:37 Dose: Not Given Isoniazid (Niazid) 300 mg PO DAILY [facility]; Protocol Last Admin: 05/11/18 09:42 Dose: 300 mg Levothyroxine Sodium (Levothyroxine) 200 mcg IVP DAILY@0630 [facility] Last Admin: 05/11/18 06:23 Dose: 200 mcg Multivitamins (Hexavitamin) 1 tab PO DAILY [facility] Last Admin: 05/11/18 11:09 Dose: 1 tab Pantoprazole Sodium (Protonix Ec Tab) 40 mg PO DAILY [facility] Last Admin: 05/11/18 09:47 Dose: 40 mg Pyridoxine HCl (Vitamin B6 50 Mg Tab) 50 mg PO DAILY [facility] Last Admin: 05/11/18 09:47 Dose: 50 mg Rifampin (Rifampin Cap) 600 mg PO DAILY [facility]; Protocol Last Admin: 05/11/18 09:48 Dose: 600 mg Tacrolimus (Prograf) 5 mg PO BID [facility] Last Admin: 05/11/18 17:34 Dose: 5 mg Thiamine HCl (Vitamin B1 Inj) 200 mg IV Q8H [facility] Last Admin: 05/11/18 17:35 Dose: 200 mg Vitamin A (Vitamin A & D Oint Ud Foilpak) 0 ea TOP BID [facility] Last Admin: 05/11/18 17:47 Dose: Not Given - Labs Labs: 05/11/18 06:32 05/11/18 06:32 PT 32.2 SECONDS (9.7-12.2) H 05/11/18 06:32 INR 2.9 05/11/18 06:32 APTT 54 SECONDS (21-34) H D 05/11/18 06:32 - Constitutional Appears: In Acute Distress, Confused, Cachectic, Chronically Ill - Head Exam Head Exam: NORMAL INSPECTION - Eye Exam Eye Exam: Normal appearance - ENT Exam ENT Exam: Normal Exam - Neck Exam Neck Exam: Normal Inspection - Respiratory Exam Respiratory Exam: Rhonchi Additional comments: Rhonchi bilaterally. - Cardiovascular Exam Cardiovascular Exam: Irregular Rhythm, Murmur - GI/Abdominal Exam GI & Abdominal Exam: Soft, Normal Bowel Sounds - Rectal Exam Rectal Exam: Deferred - Extremities Exam Extremities Exam: Pedal Edema Additional comments: Tender left knee. - Back Exam Back Exam: NORMAL INSPECTION - Neurological Exam Neurological Exam: Alert, Awake Additional comments: Confused. - Psychiatric Exam Psychiatric exam: Anxious - Skin Skin Exam: Warm Additional comments: Open wounds of the left knee. Assessment and Plan (1) Hypothermia Status: Resolved (2) Hypoglycemia Status: Resolved (3) Hypotension Status: Resolved (4) Acute confusion Status: Acute (5) Exfoliative dermatitis Status: Resolved (6) Acute on chronic diastolic CHF (congestive heart failure) Assessment & Plan: due to volume overload and acute renal failure. Agree with holding IVF and start Lasix 80 mg IV q 12h. Status: Acute
--- NOTE | 2018-05-11 23:51 | PN ---
DATE: 05/11/2018 ENDO FOLLOWUP NOTE LOCATION: ICU room 10. This is a 72-year-old male with recent uncontrolled type 2 insulin-requiring diabetes, now being followed closely for overt hypothyroidism noted both historically, clinically and biochemically as noted thereof. His glucose values are near optimal ranges on 119 to 149 mg/dL. The chemistry today showed a BUN of 35, sodium 144, potassium 4.2, chloride 106, CO2 of 23, glucose 127, and creatinine 2.8. His latest thyroid study showed a TSH of 19.30 and a T4 of 4.19 and a free T4 of 1.78. So at this time, we will continue the levothyroxine given parenterally at 200 mcg IV push once daily in the morning as ordered. We will obtain serial thyroid studies and adjust his dose regimen accordingly and also consider switching over to oral replacement therapy as indicated. We will follow. Isamar Shane MD
[2018-05-12] MEDS: Thiamine 100 mg/ml Inj IV SCH ×3 (01:48→19:26)
[2018-05-12] MEDS: Albuterol-Ipratrop 3 mg / 0.5 (3 ml) UD INH SCH ×5 (01:53→19:42)
[2018-05-12] MEDS: Albumin Human 25% (12.5 gm/50 ml) IV SCH (03:53)
[2018-05-12 06:25] LABS: BASO % 0.2 % (0.0-2.0); EOS % 0.3 % (0.0-4.0); HEMOGLOBIN 6.8 g/dL (12.0-18.0); LYMPH # 0.5 K/uL (1.0-4.3); MEAN CELL VOLUME 91.2 fL (80.0-94.0); MEAN CORPUSCULAR HEMOGLOBIN 30.5 pg (27.0-31.0); MEAN CORPUSCULAR HGB CONC 33.5 g/dL (33.0-37.0); MEAN PLATELET VOLUME 8.1 fL (7.2-11.7); MONO # 0.4 K/uL (0.0-0.8); MONO % 5.5 % (0.0-10.0); NEUT # 7.3 K/uL (1.8-7.0); NRBC % 2.8 % (0.0-2.0); PLATELET COUNT 131 K/uL (130-400); RBC 2.23 Mil/uL (4.40-5.90); RED CELL DISTRIBUTION WIDTH 26.9 % (11.5-14.5); WHITE BLOOD COUNT 8.2 K/uL (4.8-10.8)
[2018-05-12 06:46] LABS: PROTHROMBIN TIME 54.5 SECONDS (9.7-12.2)
[2018-05-12] MEDS: Levothyroxine 200 mcg (0.2 mg) Inj IVP SCH (06:50)
[2018-05-12 07:03] LABS: T4 3.04 ug/dL (5.5-11.0)
[2018-05-12 07:14] LABS: ALB/GLOB RATIO 1.9 (1.0-2.1); ALT/SGPT 19 U/L (21-72); AST/SGOT 107 U/L (17-59); BLOOD UREA NITROGEN 39 mg/dL (9-20); CALCIUM 6.8 mg/dl (8.6-10.4); GFR NON-AFRICAN AMERICAN 17
[2018-05-12 08:13] LABS: BANDS 3 % (0-2); LYMPHOCYTE 5 % (20-40); MONOCYTE 6 % (0-10); NEUTROPHIL 86 % (50-75); NUCLEATED RED BLOOD CELL 1 % (0-0); TOTAL CELLS COUNTED 100
[2018-05-12 08:14] LABS: ANISOCYTOSIS MODERATE; HYPOCHROMIC SLIGHT; PLATELET ESTIMATE NORMAL (NORMAL); POLYCHROMIC SLIGHT
[2018-05-12 08:15] LABS: OVALOCYTES SLIGHT
[2018-05-12] MEDS: (Novolin R) Insulin Human Regular 100 units/ml vial SC SCH ×4 (08:25→22:00)
--- NOTE | 2018-05-12 08:26 | RAD ---
Date of service: 05/12/2018 HISTORY: ?congestion/fluid overload COMPARISON: 05/11/2018 FINDINGS: The right central line terminates in the subclavian vein LUNGS: The lungs are hyperinflated. There are chronic changes in both lungs. There are fibrotic changes in the upper lobes. There is also pulmonary venous congestion. PLEURA: Small effusions. No pneumothorax. CARDIOVASCULAR: Persistent moderate cardiomegaly and prominent central vasculature. There is stable position of left-sided permanent pacing device. Macro arge OSSEOUS STRUCTURES: Within normal limits for the patient's age. VISUALIZED UPPER ABDOMEN: Normal. OTHER FINDINGS: None. IMPRESSION: Pulmonary venous congestion and small pleural effusions. Background of COPD.
[2018-05-12] MEDS ORDERED: metOLazone 5 MG TAB PO ONE (09:00)
[2018-05-12 09:48] LABS: FOLATE > 20.0 ng/mL
[2018-05-12] MEDS ORDERED: Phytonadione 10 mg/ml Inj (Adult) IV SCH (10:00)
--- NOTE | 2018-05-12 10:04 | CP.CCUPN ---
<Natasha Khan - Last Filed: 05/12/18 10:02> CCU Subjective - Physician Review Events Since Last Encounter (Free Text): 05/12/18 10:02 Patient continued to be oliguric overnight, straight cath 150 mL. Subjective (Free Text): 05/12/18 10:02 Patient was seen and examined this morning. He still does not want to pursue HD. He and family are agreeable to hospice evaluation. CCU Objective - Vital Signs / Intake & Output Vital Signs (Last 4 hours): Vital Signs Pulse Resp BP Pulse Ox 05/12/18 08:54 91 H 23 136/58 L 100 05/12/18 08:28 94 H 32 H 118/77 98 05/12/18 07:54 86 16 109/43 L 05/12/18 07:24 81 18 87/65 L 05/12/18 06:54 86 27 H 114/93 H 98 05/12/18 06:23 80 22 133/59 L 100 Intake and Output (Last 8hrs): Intake & Output 05/11/18 05/12/18 05/12/18 22:59 06:59 14:59 Intake Total 850 415 0 Output Total 150 Balance 850 265 0 Weight 120 lb 14.4 oz Intake: IV 165 Intake, IV Amount 440 100 0 Right 400 100 0 Right PICC Distal Port 40 Oral 360 Albumin 50 150 Output: Urine 150 Straight 150 Urine, Voided 0 Other: # Voids Urine, Voided 0 # Bowel Movements 4 - Physical Exam Head: Positive for: Atraumatic, Normocephalic Pupils: Positive for: PERRL Extroacular Muscles: Positive for: EOMI Conjunctiva: Positive for: Normal Mouth: Positive for: Dry Pharnyx: Negative for: ERYTHEMA Respiratory/Chest: Positive for: Clear to Auscultation. Negative for: Respiratory Distress, Accessory Muscle Use Cardiovascular: Positive for: Regular Rate and Rhythm, Normal S1, S2. Negative for: Murmurs Abdomen: Positive for: Normal Bowel Sounds. Negative for: Tenderness, Diste ntion, Peritoneal Signs Upper Extremity: Positive for: Swelling, Erythema, Neurovascularly Intact, Other (PICC in RUE, skin sloughing) Lower Extremity: Positive for: Erythema, Neurovascularly Intact Neurological: Positive for: GCS=15, Other (much improved from presentation yesterday) Psychiatric: Positive for: Alert, Oriented x 3. Negative for: Agitated - Medications Active Medications: Active Medications Generic Name Dose Route Start Last Admin Trade Name Freq PRN Reason Stop Dose Admin Albuterol/Ipratropium 3 ml 05/09/18 00:00 05/12/18 07:57 Duoneb 3 Mg/0.5 Mg (3 Ml) Ud INH 3 ml RQ8 FAHEEM Administration Calcium Acetate 667 mg 05/12/18 08:00 05/12/18 08:46 Phoslo PO 667 mg TIDCC FAHEEM Administration Collagenase 0 gm 05/11/18 11:00 05/11/18 12:00 Santyl TOP 1 oin DAILY FAHEEM Administration Cyanocobalamin 1,000 mcg 05/12/18 10:00 Vitamin B12 1000 Mcg Tab PO DAILY FAHEEM Dextrose 0 ml 05/08/18 17:53 Dextrose 50% Inj IV STAT PRN Hypoglycemia Protocol Protocol Dextrose 0 gm 05/08/18 17:53 Glutose 15 PO ONCE PRN Hypoglycemia Protocol Protocol Folic Acid 1 mg 05/09/18 10:00 05/11/18 09:43 Folic Acid PO 1 mg DAILY FAHEEM Administration Furosemide 80 mg 05/11/18 22:00 05/11/18 21:44 Lasix IVP 80 mg Q12 FAHEEM Administration Glucagon 0 mg 05/08/18 17:53 Glucagen Diagnostic Kit IM STAT PRN Hypoglycemia Protocol Protocol Hydrocortisone Sodium Succinate 100 mg 05/11/18 10:00 05/12/18 01:47 Solu-Cortef IV 100 mg Q8H FAHEEM Administration Dextrose 1,000 mls @ 0 mls/hr 05/08/18 17:53 Dextrose 5% In Water 1000 Ml IV .Q0M PRN Hypoglycemia Protocol Protocol Per Protocol Daptomycin 300 mg/ Sodium 100 mls @ 200 mls/hr 05/10/18 18:30 05/10/18 18:31 Chloride IV 200 mls/hr Q48H FAHEEM Administration Micafungin Sodium 100 mg/ 100 mls @ 100 mls/hr 05/10/18 20:00 05/11/18 20:31 Sodium Chloride IV 100 mls/hr Q24H FAHEEM Administration Protocol Phenylephrine HCl 30 mg/ 253 mls @ 10.12 mls/hr 05/10/18 20:56 05/11/18 23:00 Dextrose IV 0 mcg/min .Q24H PRN 0 mls/hr TITRATE PER MD ORDER Titration Protocol 20 MCG/MIN Doxycycline Hyclate 100 mg/ 100 mls @ 100 mls/hr 05/11/18 10:00 05/11/18 21:44 Sodium Chloride IVPB 100 mls/hr Q12H FAHEEM Administration Protocol Meropenem 500 mg/ Sodium 100 mls @ 100 mls/hr 05/11/18 11:00 05/11/18 23:00 Chloride IVPB 100 mls/hr Q12H FAHEEM Administration Protocol Phytonadione 10 mg/ Sodium 51 mls @ 102 mls/hr 05/12/18 10:00 Chloride IVPB 05/14/18 10:29 DAILY FAHEEM Insulin Human Regular 0 unit 05/09/18 16:30 05/12/18 08:25 Novolin R SC Not Given ACHS FAHEEM Protocol Isoniazid 300 mg 05/09/18 10:00 05/11/18 09:42 Niazid PO 300 mg DAILY FAHEEM Administration Protocol Lactic Acid 0 gm 05/12/18 07:00 Lac-Hydrin 12% Lotion (225 G) EXT Q8 FAHEEM Levothyroxine Sodium 200 mcg 05/10/18 10:00 05/12/18 06:50 Levothyroxine IVP 200 mcg DAILY@0630 FAHEEM Administration Multivitamins/Vitamin C 5 ml 05/12/18 10:00 Multi-Delyn Liquid PO DAILY FAHEEM Pantoprazole Sodium 40 mg 05/09/18 10:00 05/11/18 09:47 Protonix Ec Tab PO 40 mg DAILY FAHEEM Administration Pyridoxine HCl 50 mg 05/09/18 10:00 05/11/18 09:47 Vitamin B6 50 Mg Tab PO 50 mg DAILY FAHEEM Administration Rifampin 600 mg 05/09/18 10:00 05/11/18 09:48 Rifampin Cap PO 600 mg DAILY FAHEEM Administration Protocol Tacrolimus 5 mg 05/08/18 18:00 05/11/18 17:34 Prograf PO 5 mg BID FAHEEM Administration Thiamine HCl 200 mg 05/11/18 09:45 05/12/18 01:48 Vitamin B1 Inj IV 200 mg Q8H FAHEEM Administration Vitamin A 0 ea 05/11/18 18:00 05/11/18 17:47 Vitamin A & D Oint Ud Foilpak TOP Not Given BID FAHEEM - Patient Studies Lab Studies: Microbiology Studies 05/10/18 12:04 Gram Stain - Final Sputum Sputum Culture - Preliminary Escherichia Coli 05/08/18 12:50 Blood Culture - Preliminary Blood NO GROWTH AFTER 3 DAYS 05/08/18 12:20 Blood Culture - Preliminary Blood NO GROWTH AFTER 3 DAYS Lab Studies 05/12/18 05/12/18 05/12/18 Range/Units 07:24 06:14 06:14 WBC (4.8-10.8) K/uL RBC (4.40-5.90) Mil/uL Hgb (12.0-18.0) g/dL Hct (35.0-51.0) % MCV (80.0-94.0) fL MCH (27.0-31.0) pg MCHC (33.0-37.0) g/dL RDW (11.5-14.5) % Plt Count (130-400) K/uL MPV (7.2-11.7) fL Neut % (Auto) (50.0-75.0) % Lymph % (Auto) (20.0-40.0) % Jess[place] % (Auto) (0.0-10.0) % Eos % (Auto) (0.0-4.0) % Baso % (Auto) (0.0-2.0) % Neut # (Auto) (1.8-7.0) K/uL Lymph # (Auto) (1.0-4.3) K/uL Jess[place] # (Auto) (0.0-0.8) K/uL Eos # (Auto) (0.0-0.7) K/uL Baso # (Auto) (0.0-0.2) K/uL Neutrophils % (Manual) (50-75) % Band Neutrophils % (0-2) % Lymphocytes % (Manual) (20-40) % Monocytes % (Manual) (0-10) % Nucleated RBC % (0-0) % Platelet Estimate (NORMAL) Polychromasia Hypochromasia (manual) Anisocytosis (manual) Ovalocytes PT 54.5 H D (9.7-12.2) SECONDS INR 5.0 H* D APTT 57 H (21-34) SECONDS Sodium (132-148) mmol/L Potassium (3.6-5.2) mmol/L Chloride (98-107) mmol/L Carbon Dioxide (22-30) mmol/L Anion Gap (10-20) BUN (9-20) mg/dL Creatinine (0.8-1.5) mg/dL Est GFR ( Amer) Est GFR (Non-Af Amer) POC Glucose (mg/dL) 91 (65-110) mg/dL Random Glucose (75-110) mg/dL Calcium (8.6-10.4) mg/dl Phosphorus (2.5-4.5) mg/dL Magnesium (1.6-2.3) mg/dL Total Bilirubin (0.2-1.3) mg/dL AST (17-59) U/L ALT (21-72) U/L Alkaline Phosphatase (38-126) U/L Total Protein (6.3-8.3) g/dL Albumin (3.5-5.0) g/dL Globulin (2.2-3.9) gm/dL Albumin/Globulin Ratio (1.0-2.1) Vitamin B12 (239-931) pg/mL Folate ng/mL Free T4 2.00 (0.78-2.19) ng/dL Thyroxine (T4) (5.5-11.0) ug/dL TSH 3rd Generation (0.46-4.68) mIU/L Tacrolimus (LC/MS/MS) (5.0-20.0) mcg/L Thyroglobulin Antibody (< OR = 1) IU/mL Blood Type Antibody Screen 05/12/18 05/12/18 05/11/18 Range/Units 06:14 06:14 21:23 WBC 8.2 (4.8-10.8) K/uL RBC 2.23 L (4.40-5.90) Mil/uL Hgb 6.8 L (12.0-18.0) g/dL Hct 20.3 L (35.0-51.0) % MCV 91.2 (80.0-94.0) fL MCH 30.5 (27.0-31.0) pg MCHC 33.5 (33.0-37.0) g/dL RDW 26.9 H (11.5-14.5) % Plt Count 131 (130-400) K/uL MPV 8.1 (7.2-11.7) fL Neut % (Auto) 88.0 H (50.0-75.0) % Lymph % (Auto) 6.0 L (20.0-40.0) % Jess[place] % (Auto) 5.5 (0.0-10.0) % Eos % (Auto) 0.3 (0.0-4.0) % Baso % (Auto) 0.2 (0.0-2.0) % Neut # (Auto) 7.3 H (1.8-7.0) K/uL Lymph # (Auto) 0.5 L (1.0-4.3) K/uL Jess[place] # (Auto) 0.4 (0.0-0.8) K/uL Eos # (Auto) 0.0 (0.0-0.7) K/uL Baso # (Auto) 0.0 (0.0-0.2) K/uL Neutrophils % (Manual) 86 H (50-75) % Band Neutrophils % 3 H (0-2) % Lymphocytes % (Manual) 5 L (20-40) % Monocytes % (Manual) 6 (0-10) % Nucleated RBC % 1 H (0-0) % Platelet Estimate Normal (NORMAL) Polychromasia Slight Hypochromasia (manual) Slight Anisocytosis (manual) Moderate Ovalocytes Slight PT (9.7-12.2) SECONDS INR APTT (21-34) SECONDS Sodium 145 (132-148) mmol/L Potassium 4.2 (3.6-5.2) mmol/L Chloride 107 (98-107) mmol/L Carbon Dioxide 18 L (22-30) mmol/L Anion Gap 24 H (10-20) BUN 39 H (9-20) mg/dL Creatinine 3.6 H (0.8-1.5) mg/dL Est GFR ( Amer) 20 Est GFR (Non-Af Amer) 17 POC Glucose (mg/dL) 119 H (65-110) mg/dL Random Glucose 82 (75-110) mg/dL Calcium 6.8 L (8.6-10.4) mg/dl Phosphorus 6.7 H (2.5-4.5) mg/dL Magnesium 2.0 (1.6-2.3) mg/dL Total Bilirubin 1.2 (0.2-1.3) mg/dL AST 107 H D (17-59) U/L ALT 19 L (21-72) U/L Alkaline Phosphatase 80 (38-126) U/L Total Protein 6.1 L (6.3-8.3) g/dL Albumin 4.0 (3.5-5.0) g/dL Globulin 2.1 L (2.2-3.9) gm/dL Albumin/Globulin Ratio 1.9 (1.0-2.1) Vitamin B12 > 1000 H (239-931) pg/mL Folate > 20.0 ng/mL Free T4 (0.78-2.19) ng/dL Thyroxine (T4) 3.04 L (5.5-11.0) ug/dL TSH 3rd Generation 4.03 (0.46-4.68) mIU/L Tacrolimus (LC/MS/MS) (5.0-20.0) mcg/L Thyroglobulin Antibody (< OR = 1) IU/mL Blood Type Antibody Screen 05/11/18 05/11/18 05/11/18 Range/Units 16:11 13:59 11:17 WBC (4.8-10.8) K/uL RBC (4.40-5.90) Mil/uL Hgb (12.0-18.0) g/dL Hct (35.0-51.0) % MCV (80.0-94.0) fL MCH (27.0-31.0) pg MCHC (33.0-37.0) g/dL RDW (11.5-14.5) % Plt Count (130-400) K/uL MPV (7.2-11.7) fL Neut % (Auto) (50.0-75.0) % Lymph % (Auto) (20.0-40.0) % Jess[place] % (Auto) (0.0-10.0) % Eos % (Auto) (0.0-4.0) % Baso % (Auto) (0.0-2.0) % Neut # (Auto) (1.8-7.0) K/uL Lymph # (Auto) (1.0-4.3) K/uL [place] # (Auto) (0.0-0.8) K/uL Eos # (Auto) (0.0-0.7) K/uL Baso # (Auto) (0.0-0.2) K/uL Neutrophils % (Manual) (50-75) % Band Neutrophils % (0-2) % Lymphocytes % (Manual) (20-40) % Monocytes % (Manual) (0-10) % Nucleated RBC % (0-0) % Platelet Estimate (NORMAL) Polychromasia Hypochromasia (manual) Anisocytosis (manual) Ovalocytes PT (9.7-12.2) SECONDS INR APTT (21-34) SECONDS Sodium (132-148) mmol/L Potassium (3.6-5.2) mmol/L Chloride (98-107) mmol/L Carbon Dioxide (22-30) mmol/L Anion Gap (10-20) BUN (9-20) mg/dL Creatinine (0.8-1.5) mg/dL Est GFR ( Amer) Est GFR (Non-Af Amer) POC Glucose (mg/dL) 144 H 119 H (65-110) mg/dL Random Glucose (75-110) mg/dL Calcium (8.6-10.4) mg/dl Phosphorus (2.5-4.5) mg/dL Magnesium (1.6-2.3) mg/dL Total Bilirubin (0.2-1.3) mg/dL AST (17-59) U/L ALT (21-72) U/L Alkaline Phosphatase (38-126) U/L Total Protein (6.3-8.3) g/dL Albumin (3.5-5.0) g/dL Globulin (2.2-3.9) gm/dL Albumin/Globulin Ratio (1.0-2.1) Vitamin B12 (239-931) pg/mL Folate ng/mL Free T4 (0.78-2.19) ng/dL Thyroxine (T4) (5.5-11.0) ug/dL TSH 3rd Generation (0.46-4.68) mIU/L Tacrolimus (LC/MS/MS) (5.0-20.0) mcg/L Thyroglobulin Antibody (< OR = 1) IU/mL Blood Type O POSITIVE Antibody Screen Negative 05/11/18 05/10/18 05/09/18 Range/Units 07:25 07:06 17:26 WBC (4.8-10.8) K/uL RBC (4.40-5.90) Mil/uL Hgb (12.0-18.0) g/dL Hct (35.0-51.0) % MCV (80.0-94.0) fL MCH (27.0-31.0) pg MCHC (33.0-37.0) g/dL RDW (11.5-14.5) % Plt Count (130-400) K/uL MPV (7.2-11.7) fL Neut % (Auto) (50.0-75.0) % Lymph % (Auto) (20.0-40.0) % Jess[place] % (Auto) (0.0-10.0) % Eos % (Auto) (0.0-4.0) % Baso % (Auto) (0.0-2.0) % Neut # (Auto) (1.8-7.0) K/uL Lymph # (Auto) (1.0-4.3) K/uL [place] # (Auto) (0.0-0.8) K/uL Eos # (Auto) (0.0-0.7) K/uL Baso # (Auto) (0.0-0.2) K/uL Neutrophils % (Manual) (50-75) % Band Neutrophils % (0-2) % Lymphocytes % (Manual) (20-40) % Monocytes % (Manual) (0-10) % Nucleated RBC % (0-0) % Platelet Estimate (NORMAL) Polychromasia Hypochromasia (manual) Anisocytosis (manual) Ovalocytes PT (9.7-12.2) SECONDS INR APTT (21-34) SECONDS Sodium (132-148) mmol/L Potassium (3.6-5.2) mmol/L Chloride (98-107) mmol/L Carbon Dioxide (22-30) mmol/L Anion Gap (10-20) BUN (9-20) mg/dL Creatinine (0.8-1.5) mg/dL Est GFR ( Amer) Est GFR (Non-Af Amer) POC Glucose (mg/dL) 149 H (65-110) mg/dL Random Glucose (75-110) mg/dL Calcium (8.6-10.4) mg/dl Phosphorus (2.5-4.5) mg/dL Magnesium (1.6-2.3) mg/dL Total Bilirubin (0.2-1.3) mg/dL AST (17-59) U/L ALT (21-72) U/L Alkaline Phosphatase (38-126) U/L Total Protein (6.3-8.3) g/dL Albumin (3.5-5.0) g/dL Globulin (2.2-3.9) gm/dL Albumin/Globulin Ratio (1.0-2.1) Vitamin B12 (239-931) pg/mL Folate ng/mL Free T4 (0.78-2.19) ng/dL Thyroxine (T4) (5.5-11.0) ug/dL TSH 3rd Generation (0.46-4.68) mIU/L Tacrolimus (LC/MS/MS) 6.8 (5.0-20.0) mcg/L Thyroglobulin Antibody <1 (< OR = 1) IU/mL Blood Type Antibody Screen Laboratory Results - last 24 hr 05/09/18 05/10/18 05/11/18 17:26 07:06 07:25 WBC RBC Hgb Hct MCV MCH MCHC RDW Plt Count MPV Neut % (Auto) Lymph % (Auto) Jess[place] % (Auto) Eos % (Auto) Baso % (Auto) Neut # (Auto) Lymph # (Auto) Jess[place] # (Auto) Eos # (Auto) Baso # (Auto) Neutrophils % (Manual) Band Neutrophils % Lymphocytes % (Manual) Monocytes % (Manual) Nucleated RBC % Platelet Estimate Polychromasia Hypochromasia (manual) Anisocytosis (manual) Ovalocytes PT INR APTT Sodium Potassium Chloride Carbon Dioxide Anion Gap BUN Creatinine Est GFR ( Amer) Est GFR (Non-Af Amer) POC Glucose (mg/dL) 149 H Random Glucose Calcium Phosphorus Magnesium Total Bilirubin AST ALT Alkaline Phosphatase Total Protein Albumin Globulin Albumin/Globulin Ratio Vitamin B12 Folate Free T4 Thyroxine (T4) TSH 3rd Generation Tacrolimus (LC/MS/MS) 6.8 Thyroglobulin Antibody <1 Blood Type Antibody Screen 05/11/18 05/11/18 05/11/18 11:17 13:59 16:11 WBC RBC Hgb Hct MCV MCH MCHC RDW Plt Count MPV Neut % (Auto) Lymph % (Auto) Jess[place] % (Auto) Eos % (Auto) Baso % (Auto) Neut # (Auto) Lymph # (Auto) Jess[place] # (Auto) Eos # (Auto) Baso # (Auto) Neutrophils % (Manual) Band Neutrophils % Lymphocytes % (Manual) Monocytes % (Manual) Nucleated RBC % Platelet Estimate Polychromasia Hypochromasia (manual) Anisocytosis (manual) Ovalocytes PT INR APTT Sodium Potassium Chloride Carbon Dioxide Anion Gap BUN Creatinine Est GFR ( Amer) Est GFR (Non-Af Amer) POC Glucose (mg/dL) 119 H 144 H Random Glucose Calcium Phosphorus Magnesium Total Bilirubin AST ALT Alkaline Phosphatase Total Protein Albumin Globulin Albumin/Globulin Ratio Vitamin B12 Folate Free T4 Thyroxine (T4) TSH 3rd Generation Tacrolimus (LC/MS/MS) Thyroglobulin Antibody Blood Type O POSITIVE Antibody Screen Negative 05/11/18 05/12/18 05/12/18 21:23 06:14 06:14 WBC 8.2 RBC 2.23 L Hgb 6.8 L Hct 20.3 L MCV 91.2 MCH 30.5 MCHC 33.5 RDW 26.9 H Plt Count 131 MPV 8.1 Neut % (Auto) 88.0 H Lymph % (Auto) 6.0 L [place] % (Auto) 5.5 Eos % (Auto) 0.3 Baso % (Auto) 0.2 Neut # (Auto) 7.3 H Lymph # (Auto) 0.5 L [place] # (Auto) 0.4 Eos # (Auto) 0.0 Baso # (Auto) 0.0 Neutrophils % (Manual) 86 H Band Neutrophils % 3 H Lymphocytes % (Manual) 5 L Monocytes % (Manual) 6 Nucleated RBC % 1 H Platelet Estimate Normal Polychromasia Slight Hypochromasia (manual) Slight Anisocytosis (manual) Moderate Ovalocytes Slight PT INR APTT Sodium 145 Potassium 4.2 Chloride 107 Carbon Dioxide 18 L Anion Gap 24 H BUN 39 H Creatinine 3.6 H Est GFR ( Amer) 20 Est GFR (Non-Af Amer) 17 POC Glucose (mg/dL) 119 H Random Glucose 82 Calcium 6.8 L Phosphorus 6.7 H Magnesium 2.0 Total Bilirubin 1.2 AST 107 H D ALT 19 L Alkaline Phosphatase 80 Total Protein 6.1 L Albumin 4.0 Globulin 2.1 L Albumin/Globulin Ratio 1.9 Vitamin B12 > 1000 H Folate > 20.0 Free T4 Thyroxine (T4) 3.04 L TSH 3rd Generation 4.03 Tacrolimus (LC/MS/MS) Thyroglobulin Antibody Blood Type Antibody Screen 05/12/18 05/12/18 05/12/18 06:14 06:14 07:24 WBC RBC Hgb Hct MCV MCH MCHC RDW Plt Count MPV Neut % (Auto) Lymph % (Auto) [place] % (Auto) Eos % (Auto) Baso % (Auto) Neut # (Auto) Lymph # (Auto) [place] # (Auto) Eos # (Auto) Baso # (Auto) Neutrophils % (Manual) Band Neutrophils % Lymphocytes % (Manual) Monocytes % (Manual) Nucleated RBC % Platelet Estimate Polychromasia Hypochromasia (manual) Anisocytosis (manual) Ovalocytes PT 54.5 H D INR 5.0 H* D APTT 57 H Sodium Potassium Chloride Carbon Dioxide Anion Gap BUN Creatinine Est GFR ( Amer) Est GFR (Non-Af Amer) POC Glucose (mg/dL) 91 Random Glucose Calcium Phosphorus Magnesium Total Bilirubin AST ALT Alkaline Phosphatase Total Protein Albumin Globulin Albumin/Globulin Ratio Vitamin B12 Folate Free T4 2.00 Thyroxine (T4) TSH 3rd Generation Tacrolimus (LC/MS/MS) Thyroglobulin Antibody Blood Type Antibody Screen Fingerstick Blood Sugar Results: 91 Review of Systems - Review of Systems Systems not reviewed;Unavailable: Altered Mental Status Critical Care Progress Note - Extremities/Vascular Does the Patient have a Central Venous Catheter?: No Does the Patient need a Central Venous Catheter?: No Does the Patient have a Ramires Catheter?: No Does the Patient need a Ramires Catheter?: No - Prophylaxis GI Prophylaxis GI: PPI - Prophylaxis DVT Prophylaxis DVT: Not Indicated - Nutrition Nutrition: Nutrition Category Date Time Status Liquid Diet [DIET] Diets 05/11/18 Breakfast Active Assessment/Plan - Assessment and Plan (Free Text) Assessment: Patient is a 72 yo male with multiple medical issues who presented with slurred speech and edematous upper extremities. Patient was found to be hypothermic, hypoglycemic, and hypotensive. 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 He has been taken off isolation. His mental status continues to wax and wane. He is weak with poor appetite and has a productive cough. Plan: Neuro: AMS- delirium - [place] patient - Neuro checks CV: Hypotension- septic shock, improved - Monitor vitals - Off Levophed drip CHF (HFpEF) - s/p AICD/pacemaker - CXR 05/11: mild-mod venous congestion, worsening small b/l pleural effusions, reticulated opacifiction in R upper-mid lung and L apex, cardiomegaly - CT chest/abd/pelvis: moderate b/l pleural effusions, chronic fibrotic changes, moderate pericardial effusions, diffuse anasarca - Echo: EF 66%, no vegetation seen, mild-mod TR, RV systolic pressure 40-50 mmHg, small-mod pericardial effusion - Discontinue IVF Afib - Eliquis 2.5 mg PO BID- hold due to increasing coags Pulm: - CXR 05/11: mild-mod venous congestion, worsening small b/l pleural effusions, reticulated opacifiction in R upper-mid lung and L apex, cardiomegaly - CXR 05/12: pulm venous congestion, small pleural effusions, background COPD - CT chest/abd/pelvis: moderate b/l pleural effusions, chronic fibrotic changes, moderate pericardial effusions, diffuse anasarca - Maintain spO2>92%- supplemental O2 PRN - Duoneb Q8H - Lasix 80 mg IV Q12H GI: Anasarca - CT chest/abd/pelvis: moderate b/l pleural effusions, chronic fibrotic changes, moderate pericardial effusions, diffuse anasarca - Decreased albumin- improved (4) - Discontinue Albumin 25 g IV Q6H - Metolazone 5 mg PO x1 - Clear liquid diet - Glucerna supplements x3 - MV/vit C - Protonix 40 mg PO daily - CMP daily - 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 Renal: Renal failure - s/p R kidney transplant in 2004 - Oliguric - Renal u/s: no abnormalities visualized - Elevated BUN, Cr worsening (39, 3.6) - CMP daily - Replete electrolytes PRN - Phoslo 667 mg PO TID - Solu-cortef 100 mg IV Q8H - Tacrolimus 5 mg PO BID - Tacrolimus level low normal (6.8) - Nephrology consulted (Ghanshyam)- recommended HD, patient and family refuse at this time Endo: T2DM - Maintain euglycemia - Hypoglycemia protocol - Accuchecks ACHS with low dose regular ISS Hypothyroidism - TSH improving (42.6->19.3), free T4 wnl - Thyroid Abs pending - Synthroid 200 mcg IV daily - Endocrinology consulted (Cam) Heme: Coagulopathy - PT/INR/PTT increasing- hold Eliquis - Vit K 10 mg IV x 3days - 2u FFP - Fibrinogen wnl, and fibrinogen degradation products >40 - Anemic at BL- decreasing Hgb (6.8) - 1u PRBC - FOBT pending - Monitor H&H - Folic acid 1 mg PO daily - Thiamine 200 mg IV Q8H ID: Septic shock - Temp 88.6 on admission, improved to 98.1 - Lactate wnl - Leukocytosis improving (sepsis vs steroids)- 9 bands - Procal 3.68 - Active warming protocol - Sputum Cx: GNR - Urine Cx no growth - Blood Cx no growth >24hrs - MRSA screen negative - HIV negative - C. diff negative - Rifampin 600 mg PO daily - Isoniazid 300 mg PO daily - Discontinue Ethambutol 1200 mg PO TTS - Vit B6 50 mg PO daily - Discontinue Aztreonam 1 g IV Q8H - Meropenem 500 mg IV Q12H- started 05/11 - Daptomycin 630 mg IV Q48H - Doxycycline 100 mg IV Q12H- started 05/11 - Ortho consulted (La)- no procedures indicated at this time, rec plastics - ID consulted (Charity) Integumentary: - Folic acid 1 mg PO daily - Thiamine 200 mg IV Q8H - Cyanocobalmin 1000 mcg IM daily - Vit A%D ointment - Collagenase - Lac-hydrin - Wound care consult PPx: VTE: contraindicated GI: PTX 40 mg PO daily PT/OT/ST Code status: DNR/DNI (POLST) Palliative consult- patient and family agreeable to hospice eval Hospice eval pending Case discussed with attending, Dr. Malvin Barnett. PGY-1 Natasha Khan D.O. <Roman Barnett - Last Filed: 05/12/18 13:56> CCU Objective - Vital Signs / Intake & Output Vital Signs (Last 4 hours): Vital Signs Pulse Resp BP Pulse Ox 05/12/18 13:28 184/91 H 05/12/18 12:06 92 H 23 166/68 H 100 05/12/18 11:37 89 15 156/72 H 100 05/12/18 11:15 103/54 L 05/12/18 11:05 90 24 103/54 L 100 05/12/18 10:06 90 25 H 94/59 L 100 05/12/18 09:55 82 21 115/74 100 Intake and Output (Last 8hrs): Intake & Output 05/11/18 05/12/18 05/12/18 22:59 06:59 14:59 Intake Total 850 415 650 Output Total 150 Balance 850 265 650 Weight 120 lb 14.4 oz Intake: IV 165 Intake, IV Amount 440 100 450 Right 400 100 450 Right PICC Distal Port 40 Oral 360 200 Albumin 50 150 Output: Urine 150 Straight 150 Urine, Voided 0 Other: # Voids Urine, Voided 0 # Bowel Movements 4 - Medications Active Medications: Active Medications Generic Name Dose Route Start Last Admin Trade Name Freq PRN Reason Stop Dose Admin Albuterol/Ipratropium 3 ml 05/09/18 00:00 05/12/18 07:57 Duoneb 3 Mg/0.5 Mg (3 Ml) Ud INH 3 ml RQ8 FAHEEM Administration Calcium Acetate 1,334 mg 05/12/18 13:21 Phoslo PO TIDCC FAHEEM Collagenase 0 gm 05/11/18 11:00 05/12/18 11:17 Santyl TOP 1 oin DAILY FAHEEM Administration Cyanocobalamin 1,000 mcg 05/12/18 10:00 Vitamin B12 1000 Mcg Tab PO DAILY FAHEEM Dextrose 0 ml 05/08/18 17:53 Dextrose 50% Inj IV STAT PRN Hypoglycemia Protocol Protocol Dextrose 0 gm 05/08/18 17:53 Glutose 15 PO ONCE PRN Hypoglycemia Protocol Protocol Folic Acid 1 mg 05/09/18 10:00 05/12/18 11:14 Folic Acid PO 1 mg DAILY FAHEEM Administration Furosemide 80 mg 05/11/18 22:00 05/12/18 11:15 Lasix IVP 80 mg Q12 FAHEEM Administration Glucagon 0 mg 05/08/18 17:53 Glucagen Diagnostic Kit IM STAT PRN Hypoglycemia Protocol Protocol Hydrocortisone Sodium Succinate 100 mg 05/11/18 10:00 05/12/18 11:18 Solu-Cortef IV 100 mg Q8H FAHEEM Administration Dextrose 1,000 mls @ 0 mls/hr 05/08/18 17:53 Dextrose 5% In Water 1000 Ml IV .Q0M PRN Hypoglycemia Protocol Protocol Per Protocol Daptomycin 300 mg/ Sodium 100 mls @ 200 mls/hr 05/10/18 18:30 05/10/18 18:31 Chloride IV 200 mls/hr Q48H FAHEEM Administration Micafungin Sodium 100 mg/ 100 mls @ 100 mls/hr 05/10/18 20:00 05/11/18 20:31 Sodium Chloride IV 100 mls/hr Q24H FAHEEM Administration Protocol Phenylephrine HCl 30 mg/ 253 mls @ 10.12 mls/hr 05/10/18 20:56 05/11/18 23:00 Dextrose IV 0 mcg/min .Q24H PRN 0 mls/hr TITRATE PER MD ORDER Titration Protocol 20 MCG/MIN Doxycycline Hyclate 100 mg/ 100 mls @ 100 mls/hr 05/11/18 10:00 05/12/18 11:18 Sodium Chloride IVPB 100 mls/hr Q12H FAHEEM Administration Protocol Meropenem 500 mg/ Sodium 100 mls @ 100 mls/hr 05/11/18 11:00 05/12/18 11:16 Chloride IVPB 100 mls/hr Q12H FAHEEM Administration Protocol Phytonadione 10 mg/ Sodium 51 mls @ 102 mls/hr 05/12/18 10:00 05/12/18 11:19 Chloride IVPB 05/14/18 10:29 102 mls/hr DAILY FAHEEM Administration Insulin Human Regular 0 unit 05/09/18 16:30 05/12/18 11:44 Novolin R SC Not Given ACHS FAHEEM Protocol Isoniazid 300 mg 05/09/18 10:00 05/12/18 11:16 Niazid PO 300 mg DAILY FAHEEM Administration Protocol Lactic Acid 0 gm 05/12/18 07:00 05/12/18 13:49 Lac-Hydrin 12% Lotion (225 G) EXT 1 applic Q8 FAHEEM Administration Levothyroxine Sodium 200 mcg 05/10/18 10:00 05/12/18 06:50 Levothyroxine IVP 200 mcg DAILY@0630 FAHEEM Administration Multivitamins/Vitamin C 5 ml 05/12/18 10:00 05/12/18 12:49 Multi-Delyn Liquid PO 5 ml DAILY FAHEEM Administration Pantoprazole Sodium 40 mg 05/09/18 10:00 05/12/18 11:17 Protonix Ec Tab PO 40 mg DAILY FAHEEM Administration Pyridoxine HCl 50 mg 05/09/18 10:00 05/12/18 11:19 Vitamin B6 50 Mg Tab PO 50 mg DAILY FAHEEM Administration Rifampin 600 mg 05/09/18 10:00 05/12/18 11:17 Rifampin Cap PO 600 mg DAILY FAHEEM Administration Protocol Tacrolimus 5 mg 05/08/18 18:00 05/12/18 11:16 Prograf PO 5 mg BID FAHEEM Administration Thiamine HCl 200 mg 05/11/18 09:45 05/12/18 11:57 Vitamin B1 Inj IV 200 mg Q8H FAHEEM Administration Vitamin A 0 ea 05/11/18 18:00 05/12/18 11:18 Vitamin A & D Oint Ud Foilpak TOP 1 ea BID FAHEEM Administration - Patient Studies Lab Studies: Microbiology Studies 05/08/18 12:50 Blood Culture - Preliminary Blood NO GROWTH AFTER 4 DAYS 05/08/18 12:20 Blood Culture - Preliminary Blood NO GROWTH AFTER 4 DAYS 05/10/18 12:04 Gram Stain - Final Sputum Sputum Culture - Final Escherichia Coli Lab Studies 05/12/18 05/12/18 05/12/18 Range/Units 11:19 07:24 06:14 WBC (4.8-10.8) K/uL RBC (4.40-5.90) Mil/uL Hgb (12.0-18.0) g/dL Hct (35.0-51.0) % MCV (80.0-94.0) fL MCH (27.0-31.0) pg MCHC (33.0-37.0) g/dL RDW (11.5-14.5) % Plt Count (130-400) K/uL MPV (7.2-11.7) fL Neut % (Auto) (50.0-75.0) % Lymph % (Auto) (20.0-40.0) % [place] % (Auto) (0.0-10.0) % Eos % (Auto) (0.0-4.0) % Baso % (Auto) (0.0-2.0) % Neut # (Auto) (1.8-7.0) K/uL Lymph # (Auto) (1.0-4.3) K/uL [place] # (Auto) (0.0-0.8) K/uL Eos # (Auto) (0.0-0.7) K/uL Baso # (Auto) (0.0-0.2) K/uL Neutrophils % (Manual) (50-75) % Band Neutrophils % (0-2) % Lymphocytes % (Manual) (20-40) % Monocytes % (Manual) (0-10) % Nucleated RBC % (0-0) % Platelet Estimate (NORMAL) Polychromasia Hypochromasia (manual) Anisocytosis (manual) Ovalocytes PT (9.7-12.2) SECONDS INR APTT (21-34) SECONDS Sodium (132-148) mmol/L Potassium (3.6-5.2) mmol/L Chloride (98-107) mmol/L Carbon Dioxide (22-30) mmol/L Anion Gap (10-20) BUN (9-20) mg/dL Creatinine (0.8-1.5) mg/dL Est GFR ( Amer) Est GFR (Non-Af Amer) POC Glucose (mg/dL) 140 H 91 (65-110) mg/dL Random Glucose (75-110) mg/dL Calcium (8.6-10.4) mg/dl Phosphorus (2.5-4.5) mg/dL Magnesium (1.6-2.3) mg/dL Total Bilirubin (0.2-1.3) mg/dL AST (17-59) U/L ALT (21-72) U/L Alkaline Phosphatase (38-126) U/L Total Protein (6.3-8.3) g/dL Albumin (3.5-5.0) g/dL Globulin (2.2-3.9) gm/dL Albumin/Globulin Ratio (1.0-2.1) Vitamin B12 (239-931) pg/mL Folate ng/mL Free T4 2.00 (0.78-2.19) ng/dL Thyroxine (T4) (5.5-11.0) ug/dL TSH 3rd Generation (0.46-4.68) mIU/L Tacrolimus (LC/MS/MS) (5.0-20.0) mcg/L Thyroglobulin Antibody (< OR = 1) IU/mL Blood Type Antibody Screen 05/12/18 05/12/18 05/12/18 Range/Units 06:14 06:14 06:14 WBC 8.2 (4.8-10.8) K/uL RBC 2.23 L (4.40-5.90) Mil/uL Hgb 6.8 L (12.0-18.0) g/dL Hct 20.3 L (35.0-51.0) % MCV 91.2 (80.0-94.0) fL MCH 30.5 (27.0-31.0) pg MCHC 33.5 (33.0-37.0) g/dL RDW 26.9 H (11.5-14.5) % Plt Count 131 (130-400) K/uL MPV 8.1 (7.2-11.7) fL Neut % (Auto) 88.0 H (50.0-75.0) % Lymph % (Auto) 6.0 L (20.0-40.0) % [place] % (Auto) 5.5 (0.0-10.0) % Eos % (Auto) 0.3 (0.0-4.0) % Baso % (Auto) 0.2 (0.0-2.0) % Neut # (Auto) 7.3 H (1.8-7.0) K/uL Lymph # (Auto) 0.5 L (1.0-4.3) K/uL [place] # (Auto) 0.4 (0.0-0.8) K/uL Eos # (Auto) 0.0 (0.0-0.7) K/uL Baso # (Auto) 0.0 (0.0-0.2) K/uL Neutrophils % (Manual) 86 H (50-75) % Band Neutrophils % 3 H (0-2) % Lymphocytes % (Manual) 5 L (20-40) % Monocytes % (Manual) 6 (0-10) % Nucleated RBC % 1 H (0-0) % Platelet Estimate Normal (NORMAL) Polychromasia Slight Hypochromasia (manual) Slight Anisocytosis (manual) Moderate Ovalocytes Slight PT 54.5 H D (9.7-12.2) SECONDS INR 5.0 H* D APTT 57 H (21-34) SECONDS Sodium 145 (132-148) mmol/L Potassium 4.2 (3.6-5.2) mmol/L Chloride 107 (98-107) mmol/L Carbon Dioxide 18 L (22-30) mmol/L Anion Gap 24 H (10-20) BUN 39 H (9-20) mg/dL Creatinine 3.6 H (0.8-1.5) mg/dL Est GFR ( Amer) 20 Est GFR (Non-Af Amer) 17 POC Glucose (mg/dL) (65-110) mg/dL Random Glucose 82 (75-110) mg/dL Calcium 6.8 L (8.6-10.4) mg/dl Phosphorus 6.7 H (2.5-4.5) mg/dL Magnesium 2.0 (1.6-2.3) mg/dL Total Bilirubin 1.2 (0.2-1.3) mg/dL AST 107 H D (17-59) U/L ALT 19 L (21-72) U/L Alkaline Phosphatase 80 (38-126) U/L Total Protein 6.1 L (6.3-8.3) g/dL Albumin 4.0 (3.5-5.0) g/dL Globulin 2.1 L (2.2-3.9) gm/dL Albumin/Globulin Ratio 1.9 (1.0-2.1) Vitamin B12 > 1000 H (239-931) pg/mL Folate > 20.0 ng/mL Free T4 (0.78-2.19) ng/dL Thyroxine (T4) 3.04 L (5.5-11.0) ug/dL TSH 3rd Generation 4.03 (0.46-4.68) mIU/L Tacrolimus (LC/MS/MS) (5.0-20.0) mcg/L Thyroglobulin Antibody (< OR = 1) IU/mL Blood Type Antibody Screen 05/11/18 05/11/18 05/11/18 Range/Units 21:23 16:11 13:59 WBC (4.8-10.8) K/uL RBC (4.40-5.90) Mil/uL Hgb (12.0-18.0) g/dL Hct (35.0-51.0) % MCV (80.0-94.0) fL MCH (27.0-31.0) pg MCHC (33.0-37.0) g/dL RDW (11.5-14.5) % Plt Count (130-400) K/uL MPV (7.2-11.7) fL Neut % (Auto) (50.0-75.0) % Lymph % (Auto) (20.0-40.0) % [place] % (Auto) (0.0-10.0) % Eos % (Auto) (0.0-4.0) % Baso % (Auto) (0.0-2.0) % Neut # (Auto) (1.8-7.0) K/uL Lymph # (Auto) (1.0-4.3) K/uL [place] # (Auto) (0.0-0.8) K/uL Eos # (Auto) (0.0-0.7) K/uL Baso # (Auto) (0.0-0.2) K/uL Neutrophils % (Manual) (50-75) % Band Neutrophils % (0-2) % Lymphocytes % (Manual) (20-40) % Monocytes % (Manual) (0-10) % Nucleated RBC % (0-0) % Platelet Estimate (NORMAL) Polychromasia Hypochromasia (manual) Anisocytosis (manual) Ovalocytes PT (9.7-12.2) SECONDS INR APTT (21-34) SECONDS Sodium (132-148) mmol/L Potassium (3.6-5.2) mmol/L Chloride (98-107) mmol/L Carbon Dioxide (22-30) mmol/L Anion Gap (10-20) BUN (9-20) mg/dL Creatinine (0.8-1.5) mg/dL Est GFR ( Amer) Est GFR (Non-Af Amer) POC Glucose (mg/dL) 119 H 144 H (65-110) mg/dL Random Glucose (75-110) mg/dL Calcium (8.6-10.4) mg/dl Phosphorus (2.5-4.5) mg/dL Magnesium (1.6-2.3) mg/dL Total Bilirubin (0.2-1.3) mg/dL AST (17-59) U/L ALT (21-72) U/L Alkaline Phosphatase (38-126) U/L Total Protein (6.3-8.3) g/dL Albumin (3.5-5.0) g/dL Globulin (2.2-3.9) gm/dL Albumin/Globulin Ratio (1.0-2.1) Vitamin B12 (239-931) pg/mL Folate ng/mL Free T4 (0.78-2.19) ng/dL Thyroxine (T4) (5.5-11.0) ug/dL TSH 3rd Generation (0.46-4.68) mIU/L Tacrolimus (LC/MS/MS) (5.0-20.0) mcg/L Thyroglobulin Antibody (< OR = 1) IU/mL Blood Type O POSITIVE Antibody Screen Negative 05/11/18 05/11/18 05/10/18 Range/Units 11:17 06:32 07:06 WBC (4.8-10.8) K/uL RBC (4.40-5.90) Mil/uL Hgb (12.0-18.0) g/dL Hct (35.0-51.0) % MCV (80.0-94.0) fL MCH (27.0-31.0) pg MCHC (33.0-37.0) g/dL RDW (11.5-14.5) % Plt Count (130-400) K/uL MPV (7.2-11.7) fL Neut % (Auto) (50.0-75.0) % Lymph % (Auto) (20.0-40.0) % [place] % (Auto) (0.0-10.0) % Eos % (Auto) (0.0-4.0) % Baso % (Auto) (0.0-2.0) % Neut # (Auto) (1.8-7.0) K/uL Lymph # (Auto) (1.0-4.3) K/uL [place] # (Auto) (0.0-0.8) K/uL Eos # (Auto) (0.0-0.7) K/uL Baso # (Auto) (0.0-0.2) K/uL Neutrophils % (Manual) (50-75) % Band Neutrophils % (0-2) % Lymphocytes % (Manual) (20-40) % Monocytes % (Manual) (0-10) % Nucleated RBC % (0-0) % Platelet Estimate (NORMAL) Polychromasia Hypochromasia (manual) Anisocytosis (manual) Ovalocytes PT (9.7-12.2) SECONDS INR APTT (21-34) SECONDS Sodium (132-148) mmol/L Potassium (3.6-5.2) mmol/L Chloride (98-107) mmol/L Carbon Dioxide (22-30) mmol/L Anion Gap (10-20) BUN (9-20) mg/dL Creatinine (0.8-1.5) mg/dL Est GFR ( Amer) Est GFR (Non-Af Amer) POC Glucose (mg/dL) 119 H (65-110) mg/dL Random Glucose (75-110) mg/dL Calcium (8.6-10.4) mg/dl Phosphorus (2.5-4.5) mg/dL Magnesium (1.6-2.3) mg/dL Total Bilirubin (0.2-1.3) mg/dL AST (17-59) U/L ALT (21-72) U/L Alkaline Phosphatase (38-126) U/L Total Protein (6.3-8.3) g/dL Albumin (3.5-5.0) g/dL Globulin (2.2-3.9) gm/dL Albumin/Globulin Ratio (1.0-2.1) Vitamin B12 (239-931) pg/mL Folate ng/mL Free T4 (0.78-2.19) ng/dL Thyroxine (T4) (5.5-11.0) ug/dL TSH 3rd Generation (0.46-4.68) mIU/L Tacrolimus (LC/MS/MS) 4.6 L (5.0-20.0) mcg/L Thyroglobulin Antibody <1 (< OR = 1) IU/mL Blood Type Antibody Screen 05/09/18 Range/Units 17:26 WBC (4.8-10.8) K/uL RBC (4.40-5.90) Mil/uL Hgb (12.0-18.0) g/dL Hct (35.0-51.0) % MCV (80.0-94.0) fL MCH (27.0-31.0) pg MCHC (33.0-37.0) g/dL RDW (11.5-14.5) % Plt Count (130-400) K/uL MPV (7.2-11.7) fL Neut % (Auto) (50.0-75.0) % Lymph % (Auto) (20.0-40.0) % [place] % (Auto) (0.0-10.0) % Eos % (Auto) (0.0-4.0) % Baso % (Auto) (0.0-2.0) % Neut # (Auto) (1.8-7.0) K/uL Lymph # (Auto) (1.0-4.3) K/uL [place] # (Auto) (0.0-0.8) K/uL Eos # (Auto) (0.0-0.7) K/uL Baso # (Auto) (0.0-0.2) K/uL Neutrophils % (Manual) (50-75) % Band Neutrophils % (0-2) % Lymphocytes % (Manual) (20-40) % Monocytes % (Manual) (0-10) % Nucleated RBC % (0-0) % Platelet Estimate (NORMAL) Polychromasia Hypochromasia (manual) Anisocytosis (manual) Ovalocytes PT (9.7-12.2) SECONDS INR APTT (21-34) SECONDS Sodium (132-148) mmol/L Potassium (3.6-5.2) mmol/L Chloride (98-107) mmol/L Carbon Dioxide (22-30) mmol/L Anion Gap (10-20) BUN (9-20) mg/dL Creatinine (0.8-1.5) mg/dL Est GFR ( Amer) Est GFR (Non-Af Amer) POC Glucose (mg/dL) (65-110) mg/dL Random Glucose (75-110) mg/dL Calcium (8.6-10.4) mg/dl Phosphorus (2.5-4.5) mg/dL Magnesium (1.6-2.3) mg/dL Total Bilirubin (0.2-1.3) mg/dL AST (17-59) U/L ALT (21-72) U/L Alkaline Phosphatase (38-126) U/L Total Protein (6.3-8.3) g/dL Albumin (3.5-5.0) g/dL Globulin (2.2-3.9) gm/dL Albumin/Globulin Ratio (1.0-2.1) Vitamin B12 (239-931) pg/mL Folate ng/mL Free T4 (0.78-2.19) ng/dL Thyroxine (T4) (5.5-11.0) ug/dL TSH 3rd Generation (0.46-4.68) mIU/L Tacrolimus (LC/MS/MS) 6.8 (5.0-20.0) mcg/L Thyroglobulin Antibody (< OR = 1) IU/mL Blood Type Antibody Screen Laboratory Results - last 24 hr 05/09/18 05/10/18 05/11/18 17:26 07:06 06:32 WBC RBC Hgb Hct MCV MCH MCHC RDW Plt Count MPV Neut % (Auto) Lymph % (Auto) [place] % (Auto) Eos % (Auto) Baso % (Auto) Neut # (Auto) Lymph # (Auto) [place] # (Auto) Eos # (Auto) Baso # (Auto) Neutrophils % (Manual) Band Neutrophils % Lymphocytes % (Manual) Monocytes % (Manual) Nucleated RBC % Platelet Estimate Polychromasia Hypochromasia (manual) Anisocytosis (manual) Ovalocytes PT INR APTT Sodium Potassium Chloride Carbon Dioxide Anion Gap BUN Creatinine Est GFR ( Amer) Est GFR (Non-Af Amer) POC Glucose (mg/dL) Random Glucose Calcium Phosphorus Magnesium Total Bilirubin AST ALT Alkaline Phosphatase Total Protein Albumin Globulin Albumin/Globulin Ratio Vitamin B12 Folate Free T4 Thyroxine (T4) TSH 3rd Generation Tacrolimus (LC/MS/MS) 6.8 4.6 L Thyroglobulin Antibody <1 Blood Type Antibody Screen 05/11/18 05/11/18 05/11/18 11:17 13:59 16:11 WBC RBC Hgb Hct MCV MCH MCHC RDW Plt Count MPV Neut % (Auto) Lymph % (Auto) [place] % (Auto) Eos % (Auto) Baso % (Auto) Neut # (Auto) Lymph # (Auto) [place] # (Auto) Eos # (Auto) Baso # (Auto) Neutrophils % (Manual) Band Neutrophils % Lymphocytes % (Manual) Monocytes % (Manual) Nucleated RBC % Platelet Estimate Polychromasia Hypochromasia (manual) Anisocytosis (manual) Ovalocytes PT INR APTT Sodium Potassium Chloride Carbon Dioxide Anion Gap BUN Creatinine Est GFR ( Amer) Est GFR (Non-Af Amer) POC Glucose (mg/dL) 119 H 144 H Random Glucose Calcium Phosphorus Magnesium Total Bilirubin AST ALT Alkaline Phosphatase Total Protein Albumin Globulin Albumin/Globulin Ratio Vitamin B12 Folate Free T4 Thyroxine (T4) TSH 3rd Generation Tacrolimus (LC/MS/MS) Thyroglobulin Antibody Blood Type O POSITIVE Antibody Screen Negative 05/11/18 05/12/18 05/12/18 21:23 06:14 06:14 WBC 8.2 RBC 2.23 L Hgb 6.8 L Hct 20.3 L MCV 91.2 MCH 30.5 MCHC 33.5 RDW 26.9 H Plt Count 131 MPV 8.1 Neut % (Auto) 88.0 H Lymph % (Auto) 6.0 L [place] % (Auto) 5.5 Eos % (Auto) 0.3 Baso % (Auto) 0.2 Neut # (Auto) 7.3 H Lymph # (Auto) 0.5 L [place] # (Auto) 0.4 Eos # (Auto) 0.0 Baso # (Auto) 0.0 Neutrophils % (Manual) 86 H Band Neutrophils % 3 H Lymphocytes % (Manual) 5 L Monocytes % (Manual) 6 Nucleated RBC % 1 H Platelet Estimate Normal Polychromasia Slight Hypochromasia (manual) Slight Anisocytosis (manual) Moderate Ovalocytes Slight PT INR APTT Sodium 145 Potassium 4.2 Chloride 107 Carbon Dioxide 18 L Anion Gap 24 H BUN 39 H Creatinine 3.6 H Est GFR ( Amer) 20 Est GFR (Non-Af Amer) 17 POC Glucose (mg/dL) 119 H Random Glucose 82 Calcium 6.8 L Phosphorus 6.7 H Magnesium 2.0 Total Bilirubin 1.2 AST 107 H D ALT 19 L Alkaline Phosphatase 80 Total Protein 6.1 L Albumin 4.0 Globulin 2.1 L Albumin/Globulin Ratio 1.9 Vitamin B12 > 1000 H Folate > 20.0 Free T4 Thyroxine (T4) 3.04 L TSH 3rd Generation 4.03 Tacrolimus (LC/MS/MS) Thyroglobulin Antibody Blood Type Antibody Screen 05/12/18 05/12/18 05/12/18 06:14 06:14 07:24 WBC RBC Hgb Hct MCV MCH MCHC RDW Plt Count MPV Neut % (Auto) Lymph % (Auto) [place] % (Auto) Eos % (Auto) Baso % (Auto) Neut # (Auto) Lymph # (Auto) [place] # (Auto) Eos # (Auto) Baso # (Auto) Neutrophils % (Manual) Band Neutrophils % Lymphocytes % (Manual) Monocytes % (Manual) Nucleated RBC % Platelet Estimate Polychromasia Hypochromasia (manual) Anisocytosis (manual) Ovalocytes PT 54.5 H D INR 5.0 H* D APTT 57 H Sodium Potassium Chloride Carbon Dioxide Anion Gap BUN Creatinine Est GFR ( Amer) Est GFR (Non-Af Amer) POC Glucose (mg/dL) 91 Random Glucose Calcium Phosphorus Magnesium Total Bilirubin AST ALT Alkaline Phosphatase Total Protein Albumin Globulin Albumin/Globulin Ratio Vitamin B12 Folate Free T4 2.00 Thyroxine (T4) TSH 3rd Generation Tacrolimus (LC/MS/MS) Thyroglobulin Antibody Blood Type Antibody Screen 05/12/18 11:19 WBC RBC Hgb Hct MCV MCH MCHC RDW Plt Count MPV Neut % (Auto) Lymph % (Auto) [place] % (Auto) Eos % (Auto) Baso % (Auto) Neut # (Auto) Lymph # (Auto) [place] # (Auto) Eos # (Auto) Baso # (Auto) Neutrophils % (Manual) Band Neutrophils % Lymphocytes % (Manual) Monocytes % (Manual) Nucleated RBC % Platelet Estimate Polychromasia Hypochromasia (manual) Anisocytosis (manual) Ovalocytes PT INR APTT Sodium Potassium Chloride Carbon Dioxide Anion Gap BUN Creatinine Est GFR ( Amer) Est GFR (Non-Af Amer) POC Glucose (mg/dL) 140 H Random Glucose Calcium Phosphorus Magnesium Total Bilirubin AST ALT Alkaline Phosphatase Total Protein Albumin Globulin Albumin/Globulin Ratio Vitamin B12 Folate Free T4 Thyroxine (T4) TSH 3rd Generation Tacrolimus (LC/MS/MS) Thyroglobulin Antibody Blood Type Antibody Screen Critical Care Progress Note - Nutrition Nutrition: Nutrition Category Date Time Status Liquid Diet [DIET] Diets 05/11/18 Breakfast Active Assessment/Plan - Assessment and Plan (Free Text) Plan: Patient seen and examined at bedside. Patient has h/o TB (roca sensitive), h/o CKD stage III, on broad spectrum abx -continue treatment for TB, sputum AFB neg, continue rx as per ID -CKD stage III: continue rx a per renal -PAtient agreed to hemodialysis after Hospice eval -off phemephrine -Anemia: transfuse blood, no clinical overt bleeding, check fecal occult blood -monitor for dic, ffp and cryo to keep fibrinogen >150 -contineu dvt/pud ppx -Goals of care: DNR/DNI. above resident documents my clinical management and physical exam. - Date & Time Date: 05/12/18 Time: 13:56
--- NOTE | 2018-05-12 10:57 | CP.PCM.CON ---
History of Present Illness - History of Present Illness History of Present Illness: Palliative consult requested by Bill the vice president compliance for comfort care discussion Patient is a 72 yo male admitted from home where family noted him being more lethargic and with B/L upper arms swelling which was increasing. CT pelvic and chest was significant for pleural effusion, fluid collection in colon and small bowels suspicious of enerocolitis, and generalized anasacra. US of right kidney revealed normal right kidney transplant. 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 His last dose should of been on 05/12/2018. On this admission patient was found to be with E coli in sputum. He is on multiple IV antbiotics. Sputun C&S was negative TB X 3.Doctor Ghanshyam called on consult. Patient is refusing HD. Patient was straight cath last night with 125 cc of urine out. Nursing is concerned as patient is refusing HD. BUN 39, Slope Hoist Operator 3.6. Hb dropped to 6.8. Hospice considered. 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 Hx: , lives at home, has a VNS Fam. Hx: parents natural Review of Systems - Constitutional Constitutional: Fatigue, Lethargy, Malaise - EENT Eyes: absent: As Per HPI, Blind Spots, Blurred Vision, Change in Vision, Decreased Night Vision, Diplopia, Discharge, Dry Eye, Exophthalmos, Floaters, Irritation, Itchy Eyes, Loss of Peripheral Vision, Pain, Photophobia, Requires Corrective Lenses, Sees Flashes, Spots in Vision, Tunnel Vision, Other Visual Disturbances, Loss of Vision, Other Ears: absent: As Per HPI, Decreased Hearing, Ear Discharge, Ear Pain, Tinnitus, Abnormal Hearing, Disequilibrium, Dizziness, Other Nose/Mouth/Throat: absent: As Per HPI, Epistaxis, Nasal Congestion, Nasal Discharge, Nasal Obstruction, Nasal Trauma, Nose Pain, Post Nasal Drip, Sinus Pain, Sinus Pressure, Bleeding Gums, Change in Voice, Dental Pain, Dry Mouth, Dysphagia, Halitosis, Hoarsness, Lip Swelling, Mouth Lesions, Mouth Pain, Odynophagia, Sore Throat, Throat Swelling, Tongue Swelling, Facial Pain, Neck Pain, Neck Mass, Other - Cardiovascular Cardiovascular: Dyspnea - Respiratory Respiratory: Dyspnea, Chest Congestion - Gastrointestinal Additional comments: incontinent - Genitourinary Additional comments: urine retention - Musculoskeletal Musculoskeletal: Arthralgias, Atrophy, Muscle Weakness, Myalgias, Stiffness - Integumentary Integumentary: Change in Pigmentation, Erythema, New Lesions, Non-Healing Lesions, Swelling - Neurological Neurological: Focal Weakness - Psychiatric Psychiatric: absent: As Per HPI, Abnormal Sleep Pattern, Anhedonia, Anxiety, Auditory Hallucinations, Behavioral Changes, Change in Appetite, Change in Libido, Confusion, Depression, Difficulty Concentrating, Hallucinations, Homicidal Ideation, Hopelessness, Irritability, Memory Loss, Mood Swings, Panic Attacks, Paranoia, Suicidal Ideation, Visual Hallucinations, Tactile Hallucinations, Other - Hematologic/Lymphatic Hematologic: absent: As Per HPI, Easy Bleeding, Easy Bruising, Lymphadenopathy, Other Past Patient History - Infectious Disease Hx of Infectious Diseases: C.diff - Tetanus Immunizations Tetanus Immunization: Unknown - Past Medical History & Family History Past Medical History?: Yes Past Family History: Reviewed and not pertinent - Past Social History Smoking Status: Former Smoker Chewing Tobacco Use: No Cigar Use: No Alcohol: None Drugs: Denies Home Situation {Lives}: With Family (mother) - CARDIAC Hx Congestive Heart Failure: Yes Hx Hypercholesterolemia: Yes Hx Hypertension: Yes - PULMONARY Hx Chronic Obstructive Pulmonary Disease (COPD): Yes (Emphysema,) - NEUROLOGICAL Hx Neurological Disorder: Yes - HEENT Hx HEENT Problems: Yes Hx Cataracts: Yes (bilat iol,had surgery) - RENAL Hx Chronic Kidney Disease: Yes (s/p renal transplant) - ENDOCRINE/METABOLIC Hx Hypothyroidism: Yes - HEMATOLOGICAL/ONCOLOGICAL Hx Anemia: Yes - INTEGUMENTARY Hx Dermatological Problems: Yes (sun sentivity) Hx Eczema: Yes - MUSCULOSKELETAL/RHEUMATOLOGICAL Hx Arthritis: Yes (Gout) - GASTROINTESTINAL Hx Gastritis: Yes - GENITOURINARY/GYNECOLOGICAL Hx Genitourinary Disorders: No - PSYCHIATRIC Hx Substance Use: No - SURGICAL HISTORY Hx Surgeries: Yes (Hemicolectomy for colon cancer) Hx Angiogram: Yes (ICD insertion for ventricular tachycardia.) Hx Cataract Extraction: Yes Hx Cardiac Catheterization: Yes Hx Kidney Transplant: Yes () Other/Comment: THYROID SURGERY-2004. Hx of perforated bowel corrected with surgery. AICD - ANESTHESIA Hx Anesthesia: Yes Hx Anesthesia Reactions: No Hx Malignant Hyperthermia: No Meds Allergies/Adverse Reactions: Allergies Allergy/AdvReac Type Severity Reaction Status Date / Time metoprolol Allergy Intermediate ITCHING Verified 02/01/18 11:29 - Medications Medications: Current Medications Albuterol/Ipratropium (Duoneb 3 Mg/0.5 Mg (3 Ml) Ud) 3 ml INH RQ8 [facility] Last Admin: 05/12/18 07:57 Dose: 3 ml Calcium Acetate (Phoslo) 667 mg PO TIDCC [facility] Last Admin: 05/12/18 08:46 Dose: 667 mg Collagenase (Santyl) 0 gm TOP DAILY [facility] Last Admin: 05/11/18 12:00 Dose: 1 oin Cyanocobalamin (Vitamin B12 1000 Mcg Tab) 1,000 mcg PO DAILY [facility] Dextrose (Dextrose 50% Inj) 0 ml IV STAT PRN; Protocol PRN Reason: Hypoglycemia Protocol Dextrose (Glutose 15) 0 gm PO ONCE PRN; Protocol PRN Reason: Hypoglycemia Protocol Folic Acid (Folic Acid) 1 mg PO DAILY [facility] Last Admin: 05/11/18 09:43 Dose: 1 mg Furosemide (Lasix) 80 mg IVP Q12 [facility] Last Admin: 05/11/18 21:44 Dose: 80 mg Glucagon (Glucagen Diagnostic Kit) 0 mg IM STAT PRN; Protocol PRN Reason: Hypoglycemia Protocol Hydrocortisone Sodium Succinate (Solu-Cortef) 100 mg IV Q8H [facility] Last Admin: 05/12/18 01:47 Dose: 100 mg Dextrose (Dextrose 5% In Water 1000 Ml) 1,000 mls @ 0 mls/hr IV .Q0M PRN; P rotocol PRN Reason: Hypoglycemia Protocol Daptomycin 300 mg/ Sodium (Chloride) 100 mls @ 200 mls/hr IV Q48H [facility] Last Admin: 05/10/18 18:31 Dose: 200 mls/hr Micafungin Sodium 100 mg/ (Sodium Chloride) 100 mls @ 100 mls/hr IV Q24H [facility]; Protocol Last Admin: 05/11/18 20:31 Dose: 100 mls/hr Phenylephrine HCl 30 mg/ (Dextrose) 253 mls @ 10.12 mls/hr IV .Q24H PRN; Protocol PRN Reason: TITRATE PER MD ORDER Last Titration: 05/11/18 23:00 Dose: 0 mcg/min, 0 mls/hr Doxycycline Hyclate 100 mg/ (Sodium Chloride) 100 mls @ 100 mls/hr IVPB Q12H [facility]; Protocol Last Admin: 05/11/18 21:44 Dose: 100 mls/hr Meropenem 500 mg/ Sodium (Chloride) 100 mls @ 100 mls/hr IVPB Q12H [facility]; Protocol Last Admin: 05/11/18 23:00 Dose: 100 mls/hr Phytonadione 10 mg/ Sodium (Chloride) 51 mls @ 102 mls/hr IVPB DAILY [facility] Stop: 05/14/18 10:29 Insulin Human Regular (Novolin R) 0 unit SC ACHS [facility]; Protocol Last Admin: 05/12/18 08:25 Dose: Not Given Isoniazid (Niazid) 300 mg PO DAILY [facility]; Protocol Last Admin: 05/11/18 09:42 Dose: 300 mg Lactic Acid (Lac-Hydrin 12% Lotion (225 G)) 0 gm EXT Q8 [facility] Levothyroxine Sodium (Levothyroxine) 200 mcg IVP DAILY@0630 [facility] Last Admin: 05/12/18 06:50 Dose: 200 mcg Multivitamins/Vitamin C (Multi-Delyn Liquid) 5 ml PO DAILY [facility] Pantoprazole Sodium (Protonix Ec Tab) 40 mg PO DAILY [facility] Last Admin: 05/11/18 09:47 Dose: 40 mg Pyridoxine HCl (Vitamin B6 50 Mg Tab) 50 mg PO DAILY [facility] Last Admin: 05/11/18 09:47 Dose: 50 mg Rifampin (Rifampin Cap) 600 mg PO DAILY [facility]; Protocol Last Admin: 05/11/18 09:48 Dose: 600 mg Tacrolimus (Prograf) 5 mg PO BID [facility] Last Admin: 05/11/18 17:34 Dose: 5 mg Thiamine HCl (Vitamin B1 Inj) 200 mg IV Q8H [facility] Last Admin: 05/12/18 01:48 Dose: 200 mg Vitamin A (Vitamin A & D Oint Ud Foilpak) 0 ea TOP BID [facility] Last Admin: 05/11/18 17:47 Dose: Not Given Physical Exam - Constitutional Appears: In Acute Distress, Chronically Ill - Head Exam Head Exam: ATRAUMATIC, NORMAL INSPECTION, NORMOCEPHALIC - Eye Exam Eye Exam: EOMI, Normal appearance, PERRL Pupil Exam: NORMAL ACCOMODATION, PERRL - ENT Exam ENT Exam: Mucous Membranes Moist, Normal Exam - Neck Exam Neck exam: Positive for: Normal Inspection - Respiratory Exam Respiratory Exam: Decreased Breath Sounds, Rhonchi Additional comments: congested - Cardiovascular Exam Cardiovascular Exam: Tachycardia - GI/Abdominal Exam GI & Abdominal Exam: Normal Bowel Sounds, Soft - Rectal Exam Rectal Exam: Deferred - Exam Additional comments: urinary retention - Extremities Exam Extremities exam: Positive for: joint swelling, pedal edema, tenderness - Back Exam Back exam: rash noted - Neurological Exam Neurological exam: Alert, Oriented x3 - Psychiatric Exam Psychiatric exam: Flat Affect - Skin Skin Exam: Diaphoretic, Mottled, Pallor, Rash, Urticaria, Vesicles Results - Vital Signs Recent Vital Signs: Last Vital Signs Temp 98.1 F 05/12/18 04:00 Pulse 90 05/12/18 10:06 Resp 25 H 05/12/18 10:06 BP 94/59 L 05/12/18 10:06 Pulse Ox 100 05/12/18 10:06 - Labs Result Diagrams: 05/12/18 06:14 05/12/18 06:14 Labs: Laboratory Results - last 24 hr 05/09/18 05/10/18 05/11/18 17:26 07:06 07:25 WBC RBC Hgb Hct MCV MCH MCHC RDW Plt Count MPV Neut % (Auto) Lymph % (Auto) [place]gs % (Auto) Eos % (Auto) Baso % (Auto) Neut # (Auto) Lymph # (Auto) [place] # (Auto) Eos # (Auto) Baso # (Auto) Neutrophils % (Manual) Band Neutrophils % Lymphocytes % (Manual) Monocytes % (Manual) Nucleated RBC % Platelet Estimate Polychromasia Hypochromasia (manual) Anisocytosis (manual) Ovalocytes PT INR APTT Sodium Potassium Chloride Carbon Dioxide Anion Gap BUN Creatinine Est GFR ( Amer) Est GFR (Non-Af Amer) POC Glucose (mg/dL) 149 H Random Glucose Calcium Phosphorus Magnesium Total Bilirubin AST ALT Alkaline Phosphatase Total Protein Albumin Globulin Albumin/Globulin Ratio Vitamin B12 Folate Free T4 Thyroxine (T4) TSH 3rd Generation Tacrolimus (LC/MS/MS) 6.8 Thyroglobulin Antibody <1 Blood Type Antibody Screen 05/11/18 05/11/18 05/11/18 11:17 13:59 16:11 WBC RBC Hgb Hct MCV MCH MCHC RDW Plt Count MPV Neut % (Auto) Lymph % (Auto) [place] % (Auto) Eos % (Auto) Baso % (Auto) Neut # (Auto) Lymph # (Auto) [place] # (Auto) Eos # (Auto) Baso # (Auto) Neutrophils % (Manual) Band Neutrophils % Lymphocytes % (Manual) Monocytes % (Manual) Nucleated RBC % Platelet Estimate Polychromasia Hypochromasia (manual) Anisocytosis (manual) Ovalocytes PT INR APTT Sodium Potassium Chloride Carbon Dioxide Anion Gap BUN Creatinine Est GFR ( Amer) Est GFR (Non-Af Amer) POC Glucose (mg/dL) 119 H 144 H Random Glucose Calcium Phosphorus Magnesium Total Bilirubin AST ALT Alkaline Phosphatase Total Protein Albumin Globulin Albumin/Globulin Ratio Vitamin B12 Folate Free T4 Thyroxine (T4) TSH 3rd Generation Tacrolimus (LC/MS/MS) Thyroglobulin Antibody Blood Type O POSITIVE Antibody Screen Negative 05/11/18 05/12/18 05/12/18 21:23 06:14 06:14 WBC 8.2 RBC 2.23 L Hgb 6.8 L Hct 20.3 L MCV 91.2 MCH 30.5 MCHC 33.5 RDW 26.9 H Plt Count 131 MPV 8.1 Neut % (Auto) 88.0 H Lymph % (Auto) 6.0 L Twiggs % (Auto) 5.5 Eos % (Auto) 0.3 Baso % (Auto) 0.2 Neut # (Auto) 7.3 H Lymph # (Auto) 0.5 L [place] # (Auto) 0.4 Eos # (Auto) 0.0 Baso # (Auto) 0.0 Neutrophils % (Manual) 86 H Band Neutrophils % 3 H Lymphocytes % (Manual) 5 L Monocytes % (Manual) 6 Nucleated RBC % 1 H Platelet Estimate Normal Polychromasia Slight Hypochromasia (manual) Slight Anisocytosis (manual) Moderate Ovalocytes Slight PT INR APTT Sodium 145 Potassium 4.2 Chloride 107 Carbon Dioxide 18 L Anion Gap 24 H BUN 39 H Creatinine 3.6 H Est GFR ( Amer) 20 Est GFR (Non-Af Amer) 17 POC Glucose (mg/dL) 119 H Random Glucose 82 Calcium 6.8 L Phosphorus 6.7 H Magnesium 2.0 Total Bilirubin 1.2 AST 107 H D ALT 19 L Alkaline Phosphatase 80 Total Protein 6.1 L Albumin 4.0 Globulin 2.1 L Albumin/Globulin Ratio 1.9 Vitamin B12 > 1000 H Folate > 20.0 Free T4 Thyroxine (T4) 3.04 L TSH 3rd Generation 4.03 Tacrolimus (LC/MS/MS) Thyroglobulin Antibody Blood Type Antibody Screen 05/12/18 05/12/18 05/12/18 06:14 06:14 07:24 WBC RBC Hgb Hct MCV MCH MCHC RDW Plt Count MPV Neut % (Auto) Lymph % (Auto) Tw[place]gs % (Auto) Eos % (Auto) Baso % (Auto) Neut # (Auto) Lymph # (Auto) [place] # (Auto) Eos # (Auto) Baso # (Auto) Neutrophils % (Manual) Band Neutrophils % Lymphocytes % (Manual) Monocytes % (Manual) Nucleated RBC % Platelet Estimate Polychromasia Hypochromasia (manual) Anisocytosis (manual) Ovalocytes PT 54.5 H D INR 5.0 H* D APTT 57 H Sodium Potassium Chloride Carbon Dioxide Anion Gap BUN Creatinine Est GFR ( Amer) Est GFR (Non-Af Amer) POC Glucose (mg/dL) 91 Random Glucose Calcium Phosphorus Magnesium Total Bilirubin AST ALT Alkaline Phosphatase Total Protein Albumin Globulin Albumin/Globulin Ratio Vitamin B12 Folate Free T4 2.00 Thyroxine (T4) TSH 3rd Generation Tacrolimus (LC/MS/MS) Thyroglobulin Antibody Blood Type Antibody Screen Assessment & Plan - Assessment and Plan (Free Text) Assessment: Palliative consult DNR/DNI, POLST on chart, PPS 10% I reviewed Medical records, all diagnostic studies, examined and interviewed the patient. Patient is alert, oriented X 3, verbal, speech is soft. Patient looks very ill. Skin is with multiple vesicles, mottled, moist with edema to upper extremities and redness. Patient is unable to reposition in bed on his own due to weakness. Lungs are congested with a lot of ronchi on auscultation. Abdomen is soft. Patient is able to swallow and states is hungry. urine output low; 125 cc last night after straight cath. Patient is refusing HD. lasix 80 mg BID on board. BP 136/58, HR 91, RR 26 WBC 8.2, Hb 6.8, PT 54.5, INR 50., BUN 39, Slope Hoist Operator 3.6. E Coli in the sputum, on IV antibiotics. Patient's son and at bed side. In their presence I reviewed with patient his clinical condition and offered my concerns that he may without the HD. Patient acknowledged it but was very adamant about HD. His son Rashad tried to convince him but patient was very categoric. patient stated he was tired. I discussed options of comfort care directed toward symptoms control one of them being a Morphine in case of respiratory distress. Family and patient agreed. I shared this with Doctor Joe acuna the ICU intesivist and with SS and Case management. The medical officer psychiatry placed the order for hospice eval. Impression * Chronically ill male with significantly decreased quality of life. * Patient reports being tired * urinary retention * Chronic skin condition with vesicles and swelling * Patient does not wish to further pursue HD. Patient wishes to be allowed natu ral * Patient and family agreed with comfort care Suggestion * Supportive care to promote comfort * O2 supplement * Morphine PRN respiratory support * Hospice evaluation * DNR/DNI Advance care planing 35 min Thank you for llowing me to assist you with care of this patient. Palliative care will sign off at this time.
[2018-05-12] MEDS: Ammonium Lactate 12% Lotion (225 g) EXT SCH ×3 (11:14→22:00)
[2018-05-12] MEDS: Meropenem 500 MG in Sodium Chloride 0.9% 100 ML IVPB SCH ×2 (11:16→22:59)
[2018-05-12] MEDS: Collagenase 250 Units/gm Ointment(30 gm) TOP SCH (11:17)
[2018-05-12] MEDS: Pantoprazole 40 mg EC Tab PO SCH (11:17)
[2018-05-12] MEDS: Vitamins A & D Oint UD Foilpak TOP SCH ×2 (11:18→18:08)
[2018-05-12] MEDS: Phytonadione 10 MG in Sodium Chloride 0.9% 50 ML IVPB SCH (11:19)
[2018-05-12] MEDS: Multiple Vitamins Oral Solution PO SCH (12:49)
--- NOTE | 2018-05-12 13:18 | CP.PCM.PN ---
Subjective - Date & Time of Evaluation Date of Evaluation: 05/12/18 Time of Evaluation: 13:15 - Subjective Subjective: Appears more congested CXR with CHF Rash desquamating now ESBL in sputum More oliguric and in YVAN Recommended dialysis to family; discussed at length Patient refusing dialysis tacro levels acceptable Objective - Vital Signs/Intake and Output Vital Signs (last 24 hours): Temp Pulse Resp BP Pulse Ox 98.1 F 92 H 23 166/68 H 100 05/12/18 04:00 05/12/18 12:06 05/12/18 12:06 05/12/18 12:06 05/12/18 12:06 Intake and Output: 05/12/18 05/12/18 06:59 18:59 Intake Total 665 650 Output Total 150 Balance 515 650 - Medications Medications: Current Medications Albuterol/Ipratropium (Duoneb 3 Mg/0.5 Mg (3 Ml) Ud) 3 ml INH RQ8 [facility] Last Admin: 05/12/18 07:57 Dose: 3 ml Calcium Acetate (Phoslo) 667 mg PO TIDCC [facility] Last Admin: 05/12/18 12:50 Dose: Not Given Collagenase (Santyl) 0 gm TOP DAILY [facility] Last Admin: 05/12/18 11:17 Dose: 1 oin Cyanocobalamin (Vitamin B12 1000 Mcg Tab) 1,000 mcg PO DAILY [facility] Dextrose (Dextrose 50% Inj) 0 ml IV STAT PRN; Protocol PRN Reason: Hypoglycemia Protocol Dextrose (Glutose 15) 0 gm PO ONCE PRN; Protocol PRN Reason: Hypoglycemia Protocol Folic Acid (Folic Acid) 1 mg PO DAILY [facility] Last Admin: 05/12/18 11:14 Dose: 1 mg Furosemide (Lasix) 80 mg IVP Q12 [facility] Last Admin: 05/12/18 11:15 Dose: 80 mg Glucagon (Glucagen Diagnostic Kit) 0 mg IM STAT PRN; Protocol PRN Reason: Hypoglycemia Protocol Hydrocortisone Sodium Succinate (Solu-Cortef) 100 mg IV Q8H [facility] Last Admin: 05/12/18 11:18 Dose: 100 mg Dextrose (Dextrose 5% In Water 1000 Ml) 1,000 mls @ 0 mls/hr IV .Q0M PRN; Protocol PRN Reason: Hypoglycemia Protocol Daptomycin 300 mg/ Sodium (Chloride) 100 mls @ 200 mls/hr IV Q48H [facility] Last Admin: 05/10/18 18:31 Dose: 200 mls/hr Micafungin Sodium 100 mg/ (Sodium Chloride) 100 mls @ 100 mls/hr IV Q24H [facility]; Protocol Last Admin: 05/11/18 20:31 Dose: 100 mls/hr Phenylephrine HCl 30 mg/ (Dextrose) 253 mls @ 10.12 mls/hr IV .Q24H PRN; Protocol PRN Reason: TITRATE PER MD ORDER Last Titration: 05/11/18 23:00 Dose: 0 mcg/min, 0 mls/hr Doxycycline Hyclate 100 mg/ (Sodium Chloride) 100 mls @ 100 mls/hr IVPB Q12H [facility]; Protocol Last Admin: 05/12/18 11:18 Dose: 100 mls/hr Meropenem 500 mg/ Sodium (Chloride) 100 mls @ 100 mls/hr IVPB Q12H [facility]; Protocol Last Admin: 05/12/18 11:16 Dose: 100 mls/hr Phytonadione 10 mg/ Sodium (Chloride) 51 mls @ 102 mls/hr IVPB DAILY [facility] Stop: 05/14/18 10:29 Last Admin: 05/12/18 11:19 Dose: 102 mls/hr Insulin Human Regular (Novolin R) 0 unit SC ACHS [facility]; Protocol Last Admin: 05/12/18 11:44 Dose: Not Given Isoniazid (Niazid) 300 mg PO DAILY [facility]; Protocol Last Admin: 05/12/18 11:16 Dose: 300 mg Lactic Acid (Lac-Hydrin 12% Lotion (225 G)) 0 gm EXT Q8 [facility] Last Admin: 05/12/18 11:14 Dose: 1 applic Levothyroxine Sodium (Levothyroxine) 200 mcg IVP DAILY@0630 [facility] Last Admin: 05/12/18 06:50 Dose: 200 mcg Multivitamins/Vitamin C (Multi-Delyn Liquid) 5 ml PO DAILY [facility] Last Admin: 05/12/18 12:49 Dose: 5 ml Pantoprazole Sodium (Protonix Ec Tab) 40 mg PO DAILY [facility] Last Admin: 05/12/18 11:17 Dose: 40 mg Pyridoxine HCl (Vitamin B6 50 Mg Tab) 50 mg PO DAILY [facility] Last Admin: 05/12/18 11:19 Dose: 50 mg Rifampin (Rifampin Cap) 600 mg PO DAILY [facility]; Protocol Last Admin: 05/12/18 11:17 Dose: 600 mg Tacrolimus (Prograf) 5 mg PO BID [facility] Last Admin: 05/12/18 11:16 Dose: 5 mg Thiamine HCl (Vitamin B1 Inj) 200 mg IV Q8H [facility] Last Admin: 05/12/18 11:57 Dose: 200 mg Vitamin A (Vitamin A & D Oint Ud Foilpak) 0 ea TOP BID [facility] Last Admin: 05/12/18 11:18 Dose: 1 ea - Labs Labs: 05/12/18 06:14 05/12/18 06:14 PT 54.5 SECONDS (9.7-12.2) H D 05/12/18 06:14 INR 5.0 H* D 05/12/18 06:14 APTT 57 SECONDS (21-34) H 05/12/18 06:14 - Constitutional Appears: Toxic, In Acute Distress, Chronically Ill - Head Exam Head Exam: ATRAUMATIC, NORMAL INSPECTION - Eye Exam Eye Exam: EOMI, Normal appearance - Neck Exam Neck Exam: Normal Inspection. absent: Tenderness - Respiratory Exam Respiratory Exam: Rhonchi, Respiratory Distress - Cardiovascular Exam Cardiovascular Exam: Tachycardia, +S1 - GI/Abdominal Exam GI & Abdominal Exam: Soft. absent: Tenderness - Extremities Exam Extremities Exam: Normal Inspection. 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
[2018-05-12] MEDS ORDERED: Albumin Human 25% (12.5 gm/50 ml) IV SCH ×3 (15:00)
--- NOTE | 2018-05-12 15:28 | PCM.PROC ---
Procedures Attestation:: I certify that I have explained the specified Operation(s) or Procedure(s), risks, benefits and reasonable alternatives to the Patient and/or other person responsible. The opportunity was given to ask questions and all questions answered - Central Line Placement Right Internal Jugular Aseptic technique was employed throughout the procedure: Hand Hygiene done prior to procedure, Full sterile barriers (mask, hair cover, sterile gown, sterile gloves), Full body sterile drape, Chloraprep Antiseptic: 30 second prep for IJ or SC sites Pt. Placed on Pulse Ox Monitor: Yes Central Line Prep: Chlorhexidine-Alcohol Combination Local Anesthesia Used: Lidocaine 1% Amount of Anesthesia Used (mls): 5 Ultrasound Used for Placement: Yes Patient Tolerated Procedure: Well Additional Comments: Guide wire was unable to be advanced further than 10 cm. Clots were evident on guide wire when removed. Suspect thrombus in SVC, possibly due to midline. Unsuccessful placement of IJ catheter. Pressure was held on are of entry and was secured with dry, clean dressing.
--- NOTE | 2018-05-12 15:34 | PCM.PROC ---
Procedures Attestation:: I certify that I have explained the specified Operation(s) or Procedure(s), risks, benefits and reasonable alternatives to the Patient and/or other person responsible. The opportunity was given to ask questions and all questions answered - Central Line Placement Right Femoral Hemodialysis Access Aseptic technique was employed throughout the procedure: Hand Hygiene done prior to procedure, Full sterile barriers (mask, hair cover, sterile gown, sterile gloves), Full body sterile drape, Chloraprep Antiseptic: 2 minute prep for Femoral Pt. Placed on Pulse Ox Monitor: Yes Central Line Prep: Chlorhexidine-Alcohol Combination Local Anesthesia Used: Lidocaine 1% Amount of Anesthesia Used (mls): 5 Ultrasound Used for Placement: Yes Central Line Lumen Inserted: triple Central Line Length: 30 cm Post Procedure: Sutured in Place, Good Blood Return, All Ports Aspirated, Flushed, Capped, Sterile Dressing Applied Secured by: Suture Post procedure dressing: Clear vapor permeable, Chlorhexidine disc (Biopatch) Patient Tolerated Procedure: Well, No Complications Immediate Complications: None
[2018-05-12] MEDS ORDERED: Albumin Human 25% (12.5 gm/50 ml) IV PRN (16:00)
[2018-05-12] MEDS ORDERED: Phenylephrine 30 MG in Dextrose 5% In Water 250 ML IV PRN (17:23)
[2018-05-12] MEDS ORDERED: Verapamil 2 ML ONE ×3 (17:25→17:26)
[2018-05-12] MEDS ORDERED: Pantoprazole 80 MG in Sodium Chloride 0.9% 100 ML IV SCH (19:00)
[2018-05-12] MEDS ORDERED: Pantoprazole 80 MG in Sodium Chloride 0.9% 100 ML IVP SCH (19:00)
--- NOTE | 2018-05-12 19:46 | CP.PCM.PN ---
Subjective - Date & Time of Evaluation Date of Evaluation: 05/12/18 Time of Evaluation: 09:00 - Subjective Subjective: WEAK LETHARGIC NAD ESBL E COLI IN SPUTUM IV MERREM IN PROGRESS Objective - Vital Signs/Intake and Output Vital Signs (last 24 hours): Temp Pulse Resp BP Pulse Ox 97.4 F L 121 H 26 H 70/45 L 100 05/12/18 15:55 05/12/18 18:06 05/12/18 18:06 05/12/18 18:06 05/12/18 18:06 Intake and Output: 05/12/18 05/13/18 18:59 06:59 Intake Total 650 43 Balance 650 43 - Medications Medications: Current Medications Albumin Human (Albumin Human 25% (12.5 Gm/50 Ml)) 37.5 gm IV DAILY PRN PRN Reason: PER HD IF SBP IS LESS THAN 90 Albuterol/Ipratropium (Duoneb 3 Mg/0.5 Mg (3 Ml) Ud) 3 ml INH RQ4 [facility] Last Admin: 05/12/18 19:42 Dose: 3 ml Bumetanide (Bumex) 1 mg IVP Q6H [facility] Stop: 05/13/18 07:01 Last Admin: 05/12/18 19:33 Dose: Not Given Calcium Acetate (Phoslo) 1,334 mg PO TIDCC [facility] Last Admin: 05/12/18 18:07 Dose: Not Given Collagenase (Santyl) 0 gm TOP DAILY [facility] Last Admin: 05/12/18 11:17 Dose: 1 oin Cyanocobalamin (Vitamin B12 1000 Mcg Tab) 1,000 mcg PO DAILY [facility] Last Admin: 05/12/18 10:48 Dose: Not Given Dextrose (Dextrose 50% Inj) 0 ml IV STAT PRN; Protocol PRN Reason: Hypoglycemia Protocol Dextrose (Glutose 15) 0 gm PO ONCE PRN; Protocol PRN Reason: Hypoglycemia Protocol Folic Acid (Folic Acid) 1 mg PO DAILY [facility] Last Admin: 05/12/18 11:14 Dose: 1 mg Furosemide (Lasix) 80 mg IVP Q12 [facility] Last Admin: 05/12/18 11:15 Dose: 80 mg Glucagon (Glucagen Diagnostic Kit) 0 mg IM STAT PRN; Protocol PRN Reason: Hypoglycemia Protocol Hydrocortisone Sodium Succinate (Solu-Cortef) 100 mg IV Q8H [facility] Last Admin: 05/12/18 19:25 Dose: 100 mg Dextrose (Dextrose 5% In Water 1000 Ml) 1,000 mls @ 0 mls/hr IV .Q0M PRN; Protocol PRN Reason: Hypoglycemia Protocol Daptomycin 300 mg/ Sodium (Chloride) 100 mls @ 200 mls/hr IV Q48H [facility] Last Admin: 05/12/18 19:39 Dose: 200 mls/hr Micafungin Sodium 100 mg/ (Sodium Chloride) 100 mls @ 100 mls/hr IV Q24H [facility]; Protocol Last Admin: 05/11/18 20:31 Dose: 100 mls/hr Doxycycline Hyclate 100 mg/ (Sodium Chloride) 100 mls @ 100 mls/hr IVPB Q12H [facility]; Protocol Last Admin: 05/12/18 11:18 Dose: 100 mls/hr Meropenem 500 mg/ Sodium (Chloride) 100 mls @ 100 mls/hr IVPB Q12H [facility]; Protocol Last Admin: 05/12/18 11:16 Dose: 100 mls/hr Phytonadione 10 mg/ Sodium (Chloride) 51 mls @ 102 mls/hr IVPB DAILY [facility] Stop: 05/14/18 10:29 Last Admin: 05/12/18 11:19 Dose: 102 mls/hr Phenylephrine HCl 30 mg/ (Dextrose) 253 mls @ 10.12 mls/hr IV .Q24H PRN; Protocol PRN Reason: TITRATE PER MD ORDER Last Titration: 05/12/18 19:20 Dose: 70 mcg/min, 35.42 mls/hr Pantoprazole Sodium 80 mg/ (Sodium Chloride) 100 mls @ 10 mls/hr IV .Q10H [facility] Insulin Human Regular (Novolin R) 0 unit SC ACHS [facility]; Protocol Last Admin: 05/12/18 16:48 Dose: Not Given Isoniazid (Niazid) 300 mg PO DAILY [facility]; Protocol Last Admin: 05/12/18 11:16 Dose: 300 mg Lactic Acid (Lac-Hydrin 12% Lotion (225 G)) 0 gm EXT Q8 [facility] Last Admin: 05/12/18 13:49 Dose: 1 applic Levothyroxine Sodium (Synthroid) 150 mcg PO DAILY@0630 [facility] Multivitamins/Vitamin C (Multi-Delyn Liquid) 5 ml PO DAILY [facility] Last Admin: 05/12/18 12:49 Dose: 5 ml Pyridoxine HCl (Vitamin B6 50 Mg Tab) 50 mg PO DAILY [facility] Last Admin: 05/12/18 11:19 Dose: 50 mg Rifampin (Rifampin Cap) 600 mg PO DAILY [facility]; Protocol Last Admin: 05/12/18 11:17 Dose: 600 mg Tacrolimus (Prograf) 5 mg PO BID [facility] Last Admin: 05/12/18 18:07 Dose: Not Given Thiamine HCl (Vitamin B1 Inj) 200 mg IV Q8H [facility] Last Admin: 05/12/18 19:26 Dose: 200 mg Vitamin A (Vitamin A & D Oint Ud Foilpak) 0 ea TOP BID [facility] Last Admin: 05/12/18 18:08 Dose: 1 ea - Labs Labs: 05/12/18 06:14 05/12/18 06:14 PT 54.5 SECONDS (9.7-12.2) H D 05/12/18 06:14 INR 5.0 H* D 05/12/18 06:14 APTT 57 SECONDS (21-34) H 05/12/18 06:14 - Constitutional Appears: Toxic, Cachectic, Chronically Ill - Head Exam Head Exam: NORMOCEPHALIC - Eye Exam Eye Exam: absent: Scleral icterus - ENT Exam ENT Exam: Mucous Membranes Dry - Neck Exam Neck Exam: absent: Lymphadenopathy - Respiratory Exam Respiratory Exam: Decreased Breath Sounds - Cardiovascular Exam Cardiovascular Exam: REGULAR RHYTHM - GI/Abdominal Exam GI & Abdominal Exam: Distended - Rectal Exam Rectal Exam: Deferred - Exam Exam: NORMAL INSPECTION Assessment and Plan (1) Acute confusion Status: Acute (2) Exfoliative dermatitis Status: Resolved (3) Hypothermia Status: Resolved (4) Sepsis Status: Acute (5) Anemia Status: Acute (6) Bronchiectasis with acute exacerbation Status: Acute (7) CKD (chronic kidney disease) stage 3, GFR 30-59 ml/min Status: Acute (8) COPD bronchitis Status: Acute (9) Cardiomyopathy Status: Acute (10) Chronic atrial fibrillation Status: Acute (11) Chronic kidney disease, stage III (moderate) Status: Acute (12) DM type 2 (diabetes mellitus, type 2) Status: Acute (13) Gout Status: Acute (14) HTN (hypertension), benign Status: Acute (15) History of kidney transplant Status: Acute (16) Kidney transplant recipient Status: Acute (17) SIRS (systemic inflammatory response syndrome) Status: Acute (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 - Assessment and Plan (Free Text) Assessment: CONT IV RX ESBL IN SPUTUM- DROPLET ISO
[2018-05-12] MEDS: Micafungin 100 MG in Sodium Chloride 0.9% 100 ML IV SCH (20:00)
--- NOTE | 2018-05-12 22:10 | PN ---
DATE: 04/11/2018 ENDOCRINOLOGY FOLLOWUP NOTE LOCATION: ICU room 10. This is a 72-year-old male with overt hypothyroidism noted initially both historically, clinically and biochemically and improved remarkably with levothyroxine given parenterally as noted. His glycemic profile has also remained improved and has ranged from 91 to 140 and 160 mg/dL. His latest chemistry showed a BUN of 39, sodium 145, potassium 4.2, chloride 107, CO2 of 18, glucose 82, and creatinine 3.6. The latest thyroid studies now showed a T4 of 3.04 with a free T4 of 2 and a TSH of 4.03 which is a remarkable improvement as noted otherwise. So at this time, we will discontinue the levothyroxine given parenterally as noted. We will resume oral levothyroxine given as 200 mcg once daily as ordered. We will obtain serial chemistries and supplement accordingly as needed. We will follow. Isamar Shane MD
[2018-05-12 22:26] LABS: BASO % 0.3 % (0.0-2.0); EOS % 0.1 % (0.0-4.0); LYMPH # 0.3 K/uL (1.0-4.3); LYMPH % 2.9 % (20.0-40.0); MEAN CELL VOLUME 91.9 fL (80.0-94.0); MEAN CORPUSCULAR HEMOGLOBIN 30.1 pg (27.0-31.0); MEAN CORPUSCULAR HGB CONC 32.8 g/dL (33.0-37.0); MEAN PLATELET VOLUME 8.2 fL (7.2-11.7); MONO # 0.7 K/uL (0.0-0.8); MONO % 7.2 % (0.0-10.0); NEUT # 9.3 K/uL (1.8-7.0); NEUT % 89.5 % (50.0-75.0); NRBC % 6.5 % (0.0-2.0); RBC 2.15 Mil/uL (4.40-5.90); RED CELL DISTRIBUTION WIDTH 26.8 % (11.5-14.5); WHITE BLOOD COUNT 10.4 K/uL (4.8-10.8)
[2018-05-12 22:34] LABS: HEMOGLOBIN 6.5 g/dL (12.0-18.0)
[2018-05-12 22:35] LABS: PLATELET COUNT 130 K/uL (130-400)
[2018-05-12 22:37] LABS: INR 1.7; PROTHROMBIN TIME 19.1 SECONDS (9.7-12.2)
[2018-05-12 23:06] LABS: BANDS 9 % (0-2); LYMPHOCYTE 3 % (20-40); METAMYELOCYTE 1 % (0-0); MONOCYTE 4 % (0-10); NEUTROPHIL 83 % (50-75); NUCLEATED RED BLOOD CELL 10 % (0-0); PLATELET ESTIMATE NORMAL (NORMAL); TOTAL CELLS COUNTED 100
[2018-05-12 23:07] LABS: ANISOCYTOSIS MODERATE; HYPOCHROMIC SLIGHT; OVALOCYTES SLIGHT; POLYCHROMIC SLIGHT
--- NOTE | 2018-05-12 23:45 | CP.PCM.PN ---
Subjective - Date & Time of Evaluation Date of Evaluation: 05/12/18 Time of Evaluation: 20:00 - Subjective Subjective: Patient now agrees to have HD. However the first HD had to be cut short because of tachycardia. Patient is slightly less dyspneic. Sputum grew E Coli with (+) ESBL. Now on IV Merrem, Doxycycline, Mycafungin. Objective - Vital Signs/Intake and Output Vital Signs (last 24 hours): Temp Pulse Resp BP Pulse Ox 97.6 F 80 29 H 141/67 100 05/12/18 16:00 05/12/18 20:25 05/12/18 20:25 05/12/18 21:29 05/12/18 20:25 Intake and Output: 05/12/18 05/13/18 18:59 06:59 Intake Total 1090 178 Output Total 0 Balance 1090 178 - Medications Medications: Current Medications Albumin Human (Albumin Human 25% (12.5 Gm/50 Ml)) 37.5 gm IV DAILY PRN PRN Reason: PER HD IF SBP IS LESS THAN 90 Albuterol/Ipratropium (Duoneb 3 Mg/0.5 Mg (3 Ml) Ud) 3 ml INH RQ4 [facility] Last Admin: 05/12/18 19:42 Dose: 3 ml Bumetanide (Bumex) 1 mg IVP Q6H [facility] Stop: 05/13/18 07:01 Last Admin: 05/12/18 19:33 Dose: Not Given Calcium Acetate (Phoslo) 1,334 mg PO TIDCC [facility] Last Admin: 05/12/18 18:07 Dose: Not Given Collagenase (Santyl) 0 gm TOP DAILY [facility] Last Admin: 05/12/18 11:17 Dose: 1 oin Cyanocobalamin (Vitamin B12 1000 Mcg Tab) 1,000 mcg PO DAILY [facility] Last Admin: 05/12/18 10:48 Dose: Not Given Dextrose (Dextrose 50% Inj) 0 ml IV STAT PRN; Protocol PRN Reason: Hypoglycemia Protocol Dextrose (Glutose 15) 0 gm PO ONCE PRN; Protocol PRN Reason: Hypoglycemia Protocol Folic Acid (Folic Acid) 1 mg PO DAILY [facility] Last Admin: 05/12/18 11:14 Dose: 1 mg Furosemide (Lasix) 80 mg IVP Q12 [facility] Last Admin: 05/12/18 21:29 Dose: 80 mg Glucagon (Glucagen Diagnostic Kit) 0 mg IM STAT PRN; Protocol PRN Reason: Hypoglycemia Protocol Hydrocortisone Sodium Succinate (Solu-Cortef) 100 mg IV Q8H [facility] Last Admin: 05/12/18 19:25 Dose: 100 mg Dextrose (Dextrose 5% In Water 1000 Ml) 1,000 mls @ 0 mls/hr IV .Q0M PRN; Protocol PRN Reason: Hypoglycemia Protocol Daptomycin 300 mg/ Sodium (Chloride) 100 mls @ 200 mls/hr IV Q48H [facility] Last Admin: 05/12/18 19:39 Dose: 200 mls/hr Micafungin Sodium 100 mg/ (Sodium Chloride) 100 mls @ 100 mls/hr IV Q24H [facility]; Protocol Last Admin: 05/12/18 20:00 Dose: 100 mls/hr Doxycycline Hyclate 100 mg/ (Sodium Chloride) 100 mls @ 100 mls/hr IVPB Q12H [facility]; Protocol Last Admin: 05/12/18 21:31 Dose: 100 mls/hr Meropenem 500 mg/ Sodium (Chloride) 100 mls @ 100 mls/hr IVPB Q12H [facility]; Protocol Last Admin: 05/12/18 22:59 Dose: 100 mls/hr Phytonadione 10 mg/ Sodium (Chloride) 51 mls @ 102 mls/hr IVPB DAILY [facility] Stop: 05/14/18 10:29 Last Admin: 05/12/18 11:19 Dose: 102 mls/hr Phenylephrine HCl 30 mg/ (Dextrose) 253 mls @ 10.12 mls/hr IV .Q24H PRN; Protocol PRN Reason: TITRATE PER MD ORDER Last Titration: 05/12/18 19:20 Dose: 70 mcg/min, 35.42 mls/hr Insulin Human Regular (Novolin R) 0 unit SC ACHS [facility]; Protocol Last Admin: 05/12/18 22:00 Dose: Not Given Isoniazid (Niazid) 300 mg PO DAILY [facility]; Protocol Last Admin: 05/12/18 11:16 Dose: 300 mg Lactic Acid (Lac-Hydrin 12% Lotion (225 G)) 0 gm EXT Q8 [facility] Last Admin: 05/12/18 13:49 Dose: 1 applic Levothyroxine Sodium (Synthroid) 150 mcg PO DAILY@0630 [facility] Multivitamins/Vitamin C (Multi-Delyn Liquid) 5 ml PO DAILY [facility] Last Admin: 05/12/18 12:49 Dose: 5 ml Pantoprazole Sodium (Protonix Inj) 40 mg IVP Q12H [facility] Last Admin: 05/12/18 22:00 Dose: 40 mg Pyridoxine HCl (Vitamin B6 50 Mg Tab) 50 mg PO DAILY [facility] Last Admin: 05/12/18 11:19 Dose: 50 mg Rifampin (Rifampin Cap) 600 mg PO DAILY [facility]; Protocol Last Admin: 05/12/18 11:17 Dose: 600 mg Tacrolimus (Prograf) 5 mg PO BID [facility] Last Admin: 05/12/18 18:07 Dose: Not Given Thiamine HCl (Vitamin B1 Inj) 200 mg IV Q8H [facility] Last Admin: 05/12/18 19:26 Dose: 200 mg Vitamin A (Vitamin A & D Oint Ud Foilpak) 0 ea TOP BID [facility] Last Admin: 05/12/18 18:08 Dose: 1 ea - Labs Labs: 05/12/18 22:15 05/12/18 06:14 PT 19.1 SECONDS (9.7-12.2) H D 05/12/18 22:15 INR 1.7 D 05/12/18 22:15 APTT 39 SECONDS (21-34) H D 05/12/18 22:15 - Constitutional Appears: Confused, Cachectic, Chronically Ill - Head Exam Head Exam: NORMAL INSPECTION - Eye Exam Eye Exam: Normal appearance Pupil Exam: NORMAL ACCOMODATION - ENT Exam ENT Exam: Normal Exam - Neck Exam Neck Exam: Normal Inspection - Respiratory Exam Additional comments: Slightly tachypneic. - Cardiovascular Exam Cardiovascular Exam: REGULAR RHYTHM, Murmur - GI/Abdominal Exam GI & Abdominal Exam: Soft, Normal Bowel Sounds - Rectal Exam Rectal Exam: Deferred - Back Exam Back Exam: NORMAL INSPECTION - Neurological Exam Additional comments: Lethargic. - Skin Additional comments: Desquamation of skin. Assessment and Plan (1) Hypothermia Status: Resolved (2) Hypoglycemia Status: Resolved (3) Hypotension Status: Resolved (4) Acute confusion Status: Acute (5) Exfoliative dermatitis Status: Resolved (6) Acute on chronic diastolic CHF (congestive heart failure) Status: Acute (7) YVAN (acute kidney injury) Assessment & Plan: Scheduled for HD in AM. Status: Acute
[2018-05-13] MEDS: Albuterol-Ipratrop 3 mg / 0.5 (3 ml) UD INH SCH ×6 (00:58→19:32)
[2018-05-13] MEDS: Thiamine 100 mg/ml Inj IV SCH ×3 (01:36→17:40)
[2018-05-13] MEDS: Ammonium Lactate 12% Lotion (225 g) EXT SCH ×3 (05:35→22:00)
[2018-05-13] MEDS: Levothyroxine 150 MCG TAB PO SCH (05:36)
[2018-05-13] MEDS: (Novolin R) Insulin Human Regular 100 units/ml vial SC SCH ×4 (07:30→22:00)
[2018-05-13 08:39] LABS: EOS % 0.2 % (0.0-4.0); HEMOGLOBIN 8.3 g/dL (12.0-18.0)
[2018-05-13 08:48] LABS: INR 1.3; PROTHROMBIN TIME 14.4 SECONDS (9.7-12.2)
[2018-05-13 08:49] LABS: BASO % 0.4 % (0.0-2.0); LYMPH # 0.7 K/uL (1.0-4.3); LYMPH % 6.5 % (20.0-40.0); MEAN CORPUSCULAR HEMOGLOBIN 29.3 pg (27.0-31.0); MEAN CORPUSCULAR HGB CONC 33.1 g/dL (33.0-37.0); MEAN PLATELET VOLUME 7.7 fL (7.2-11.7); MONO # 0.7 K/uL (0.0-0.8); MONO % 6.8 % (0.0-10.0); NEUT # 9.2 K/uL (1.8-7.0); NEUT % 86.1 % (50.0-75.0); PLATELET COUNT 119 K/uL (130-400); RBC 2.82 Mil/uL (4.40-5.90); RED CELL DISTRIBUTION WIDTH 24.4 % (11.5-14.5); WHITE BLOOD COUNT 10.7 K/uL (4.8-10.8)
[2018-05-13 08:52] LABS: MEAN CELL VOLUME 89.6 fL (80.0-94.0); NRBC % 5.8 % (0.0-2.0)
[2018-05-13] MEDS: Collagenase 250 Units/gm Ointment(30 gm) TOP SCH (09:00)
[2018-05-13 09:19] LABS: LYMPHOCYTE 7 % (20-40); MONOCYTE 6 % (0-10); NEUTROPHIL 87 % (50-75); NUCLEATED RED BLOOD CELL 8 % (0-0); PLATELET ESTIMATE SLIGHTLY DECREASED (NORMAL); TOTAL CELLS COUNTED 100
[2018-05-13 09:20] LABS: ALB/GLOB RATIO 1.9 (1.0-2.1); ALBUMIN 4.1 g/dL (3.5-5.0); ANISOCYTOSIS MODERATE; BURR CELLS SLIGHT; CALCIUM 6.9 mg/dl (8.6-10.4); HYPOCHROMIC SLIGHT; POIKILOCYTOSIS SLIGHT; POLYCHROMIC SLIGHT; TOXIC GRANULATION PRESENT
[2018-05-13 09:21] LABS: LARGE PLATELETS PRESENT
--- NOTE | 2018-05-13 10:02 | CP.PCM.PN ---
Subjective - Date & Time of Evaluation Date of Evaluation: 05/13/18 Time of Evaluation: 09:59 - Subjective Subjective: Patient awake, alert, more communicative. right femoral HD cath not bleeding, INR 1.2 Objective - Vital Signs/Intake and Output Vital Signs (last 24 hours): Temp Pulse Resp BP Pulse Ox 97.7 F 94 H 22 160/86 H 96 05/13/18 05:32 05/13/18 05:32 05/13/18 05:32 05/13/18 05:32 05/13/18 05:32 Intake and Output: 05/13/18 05/13/18 06:59 18:59 Intake Total 1731.0 0 Balance 1731.0 0 - Medications Medications: Current Medications Albumin Human (Albumin Human 25% (12.5 Gm/50 Ml)) 37.5 gm IV DAILY PRN PRN Reason: PER HD IF SBP IS LESS THAN 90 Albuterol/Ipratropium (Duoneb 3 Mg/0.5 Mg (3 Ml) Ud) 3 ml INH RQ4 [facility] Last Admin: 05/13/18 07:43 Dose: 3 ml Calcium Acetate (Phoslo) 1,334 mg PO TIDCC [facility] Last Admin: 05/12/18 18:07 Dose: Not Given Collagenase (Santyl) 0 gm TOP DAILY [facility] Last Admin: 05/12/18 11:17 Dose: 1 oin Cyanocobalamin (Vitamin B12 1000 Mcg Tab) 1,000 mcg PO DAILY [facility] Last Admin: 05/12/18 10:48 Dose: Not Given Dextrose (Dextrose 50% Inj) 0 ml IV STAT PRN; Protocol PRN Reason: Hypoglycemia Protocol Dextrose (Glutose 15) 0 gm PO ONCE PRN; Protocol PRN Reason: Hypoglycemia Protocol Folic Acid (Folic Acid) 1 mg PO DAILY [facility] Last Admin: 05/12/18 11:14 Dose: 1 mg Glucagon (Glucagen Diagnostic Kit) 0 mg IM STAT PRN; Protocol PRN Reason: Hypoglycemia Protocol Hydrocortisone Sodium Succinate (Solu-Cortef) 100 mg IV Q8H [facility] Last Admin: 05/13/18 01:49 Dose: 100 mg Dextrose (Dextrose 5% In Water 1000 Ml) 1,000 mls @ 0 mls/hr IV .Q0M PRN; Protocol PRN Reason: Hypoglycemia Protocol Daptomycin 300 mg/ Sodium (Chloride) 100 mls @ 200 mls/hr IV Q48H [facility] Last Admin: 05/12/18 19:39 Dose: 200 mls/hr Micafungin Sodium 100 mg/ (Sodium Chloride) 100 mls @ 100 mls/hr IV Q24H [facility]; Protocol Last Admin: 05/12/18 20:00 Dose: 100 mls/hr Doxycycline Hyclate 100 mg/ (Sodium Chloride) 100 mls @ 100 mls/hr IVPB Q12H [facility]; Protocol Last Admin: 05/12/18 21:31 Dose: 100 mls/hr Meropenem 500 mg/ Sodium (Chloride) 100 mls @ 100 mls/hr IVPB Q12H [facility]; Protocol Last Admin: 05/12/18 22:59 Dose: 100 mls/hr Phytonadione 10 mg/ Sodium (Chloride) 51 mls @ 102 mls/hr IVPB DAILY [facility] Stop: 05/14/18 10:29 Last Admin: 05/12/18 11:19 Dose: 102 mls/hr Insulin Human Regular (Novolin R) 0 unit SC ACHS [facility]; Protocol Last Admin: 05/12/18 22:00 Dose: Not Given Isoniazid (Niazid) 300 mg PO DAILY [facility]; Protocol Last Admin: 05/12/18 11:16 Dose: 300 mg Lactic Acid (Lac-Hydrin 12% Lotion (225 G)) 0 gm EXT Q8 [facility] Last Admin: 05/13/18 05:35 Dose: 1 applic Levothyroxine Sodium (Synthroid) 150 mcg PO DAILY@0630 [facility] Last Admin: 05/13/18 05:36 Dose: Not Given Metolazone (Zaroxolyn) 5 mg PO ONCE ONE Stop: 05/13/18 09:58 Multivitamins/Vitamin C (Multi-Delyn Liquid) 5 ml PO DAILY [facility] Last Admin: 05/12/18 12:49 Dose: 5 ml Pantoprazole Sodium (Protonix Inj) 40 mg IVP Q12H [facility] Last Admin: 05/12/18 22:00 Dose: 40 mg Pyridoxine HCl (Vitamin B6 50 Mg Tab) 50 mg PO DAILY [facility] Last Admin: 05/12/18 11:19 Dose: 50 mg Rifampin (Rifampin Cap) 600 mg PO DAILY [facility]; Protocol Last Admin: 05/12/18 11:17 Dose: 600 mg Tacrolimus (Prograf) 5 mg PO BID [facility] Last Admin: 05/12/18 18:07 Dose: Not Given Thiamine HCl (Vitamin B1 Inj) 200 mg IV Q8H [facility] Last Admin: 05/13/18 01:36 Dose: 200 mg Vitamin A (Vitamin A & D Oint Ud Foilpak) 0 ea TOP BID [facility] Last Admin: 05/12/18 18:08 Dose: 1 ea - Labs Labs: 05/13/18 08:31 05/13/18 08:31 PT 14.4 SECONDS (9.7-12.2) H 05/13/18 08:31 INR 1.3 05/13/18 08:31 APTT 37 SECONDS (21-34) H 05/13/18 08:31 - Head Exam Head Exam: NORMAL INSPECTION - Eye Exam Eye Exam: EOMI - Neck Exam Neck Exam: Full ROM - Respiratory Exam Respiratory Exam: Clear to Ausculation Bilateral, Rales, Wheezes - Cardiovascular Exam Cardiovascular Exam: +S1, +S2, Murmur - GI/Abdominal Exam GI & Abdominal Exam: Soft, Hyperactive Bowel Sounds. absent: Guarding, Rigid, Tenderness - Extremities Exam Extremities Exam: Pedal Edema - Skin Additional comments: descqamative all over skin Assessment and Plan - Assessment and Plan (Free Text) Assessment: -YVAN/CKD: continue HD consider 3.5 K bath or higher to avoid arrythmia -Sepsis: MDRO: continue abx as per ID -not on pressors -h/o TB: roca sensitive as per infection control; however, no sensitivity available from [facility], de-escalate RIPE therapy -SKIN: descamative disorder improving -Clot right: obtain US lower and upper extremities -post HD, OOB to chair -vascular eval for left AV fistula eval -continue dvt/pud ppx -continue oral diet as tolerated. -Patient off pressors, BP stable. -GOals of care: continue DNr/DNI
--- NOTE | 2018-05-13 10:09 | CP.PCM.PN ---
Subjective - Date & Time of Evaluation Date of Evaluation: 05/13/18 Time of Evaluation: 10:06 - Subjective Subjective: Notes reviewed Discussed with icu nursing staff Minimal dialysis due to hypotension and arrhythmia Stabilized overnight, bp up now Remains poorly responsive 10 point ros unobtainable due to ams Objective - Vital Signs/Intake and Output Vital Signs (last 24 hours): Temp Pulse Resp BP Pulse Ox 97.7 F 94 H 22 160/86 H 96 05/13/18 05:32 05/13/18 05:32 05/13/18 05:32 05/13/18 05:32 05/13/18 05:32 Intake and Output: 05/13/18 05/13/18 06:59 18:59 Intake Total 1731.0 0 Balance 1731.0 0 - Medications Medications: Current Medications Albumin Human (Albumin Human 25% (12.5 Gm/50 Ml)) 37.5 gm IV DAILY PRN PRN Reason: PER HD IF SBP IS LESS THAN 90 Albuterol/Ipratropium (Duoneb 3 Mg/0.5 Mg (3 Ml) Ud) 3 ml INH RQ4 [facility] Last Admin: 05/13/18 07:43 Dose: 3 ml Bumetanide (Bumex) 3 mg IVP ONCE [facility] Stop: 05/13/18 09:59 Calcium Acetate (Phoslo) 1,334 mg PO TIDCC [facility] Last Admin: 05/12/18 18:07 Dose: Not Given Collagenase (Santyl) 0 gm TOP DAILY [facility] Last Admin: 05/12/18 11:17 Dose: 1 oin Cyanocobalamin (Vitamin B12 1000 Mcg Tab) 1,000 mcg PO DAILY [facility] Last Admin: 05/12/18 10:48 Dose: Not Given Dextrose (Dextrose 50% Inj) 0 ml IV STAT PRN; Protocol PRN Reason: Hypoglycemia Protocol Dextrose (Glutose 15) 0 gm PO ONCE PRN; Protocol PRN Reason: Hypoglycemia Protocol Folic Acid (Folic Acid) 1 mg PO DAILY [facility] Last Admin: 05/12/18 11:14 Dose: 1 mg Glucagon (Glucagen Diagnostic Kit) 0 mg IM STAT PRN; Protocol PRN Reason: Hypoglycemia Protocol Hydrocortisone Sodium Succinate (Solu-Cortef) 100 mg IV Q8H [facility] Last Admin: 05/13/18 01:49 Dose: 100 mg Dextrose (Dextrose 5% In Water 1000 Ml) 1,000 mls @ 0 mls/hr IV .Q0M PRN; Protocol PRN Reason: Hypoglycemia Protocol Daptomycin 300 mg/ Sodium (Chloride) 100 mls @ 200 mls/hr IV Q48H [facility] Last Admin: 05/12/18 19:39 Dose: 200 mls/hr Micafungin Sodium 100 mg/ (Sodium Chloride) 100 mls @ 100 mls/hr IV Q24H [facility]; Protocol Last Admin: 05/12/18 20:00 Dose: 100 mls/hr Doxycycline Hyclate 100 mg/ (Sodium Chloride) 100 mls @ 100 mls/hr IVPB Q12H [facility]; Protocol Last Admin: 05/12/18 21:31 Dose: 100 mls/hr Meropenem 500 mg/ Sodium (Chloride) 100 mls @ 100 mls/hr IVPB Q12H [facility]; Protocol Last Admin: 05/12/18 22:59 Dose: 100 mls/hr Phytonadione 10 mg/ Sodium (Chloride) 51 mls @ 102 mls/hr IVPB DAILY [facility] Stop: 05/14/18 10:29 Last Admin: 05/12/18 11:19 Dose: 102 mls/hr Insulin Human Regular (Novolin R) 0 unit SC ACHS [facility]; Protocol Last Admin: 05/12/18 22:00 Dose: Not Given Isoniazid (Niazid) 300 mg PO DAILY [facility]; Protocol Last Admin: 05/12/18 11:16 Dose: 300 mg Lactic Acid (Lac-Hydrin 12% Lotion (225 G)) 0 gm EXT Q8 [facility] Last Admin: 05/13/18 05:35 Dose: 1 applic Levothyroxine Sodium (Synthroid) 150 mcg PO DAILY@0630 [facility] Last Admin: 05/13/18 05:36 Dose: Not Given Metolazone (Zaroxolyn) 5 mg PO ONCE ONE Stop: 05/13/18 09:58 Multivitamins/Vitamin C (Multi-Delyn Liquid) 5 ml PO DAILY [facility] Last Admin: 05/12/18 12:49 Dose: 5 ml Pantoprazole Sodium (Protonix Inj) 40 mg IVP Q12H [facility] Last Admin: 05/12/18 22:00 Dose: 40 mg Pyridoxine HCl (Vitamin B6 50 Mg Tab) 50 mg PO DAILY [facility] Last Admin: 05/12/18 11:19 Dose: 50 mg Rifampin (Rifampin Cap) 600 mg PO DAILY [facility]; Protocol Last Admin: 05/12/18 11:17 Dose: 600 mg Tacrolimus (Prograf) 5 mg PO BID [facility] Last Admin: 05/12/18 18:07 Dose: Not Given Thiamine HCl (Vitamin B1 Inj) 200 mg IV Q8H [facility] Last Admin: 05/13/18 01:36 Dose: 200 mg Vitamin A (Vitamin A & D Oint Ud Foilpak) 0 ea TOP BID [facility] Last Admin: 05/12/18 18:08 Dose: 1 ea - Labs Labs: 05/13/18 08:31 05/13/18 08:31 PT 14.4 SECONDS (9.7-12.2) H 05/13/18 08:31 INR 1.3 05/13/18 08:31 APTT 37 SECONDS (21-34) H 05/13/18 08:31 - Constitutional Appears: Confused, Chronically Ill - Head Exam Head Exam: ATRAUMATIC, NORMOCEPHALIC - Eye Exam Eye Exam: absent: Conjunctival injection, Scleral icterus - ENT Exam ENT Exam: Mucous Membranes Moist, Normal Oropharynx - Respiratory Exam Respiratory Exam: Rales, Rhonchi, Wheezes - Cardiovascular Exam Cardiovascular Exam: +S1, +S2. absent: JVD - GI/Abdominal Exam GI & Abdominal Exam: Soft, Normal Bowel Sounds - Extremities Exam Extremities Exam: Pedal Edema. absent: Joint Swelling - Neurological Exam Neurological Exam: Awake. absent: Alert, Oriented x3 - Skin Skin Exam: Intact, Warm Assessment and Plan (1) YVAN (acute kidney injury) Status: Acute (2) Acute confusion Status: Acute (3) SVT (supraventricular tachycardia) Status: Acute (4) Sepsis Status: Acute (5) Exfoliative dermatitis Status: Resolved (6) Anemia Status: Acute (7) COPD bronchitis Status: Acute (8) Cardiomyopathy Status: Acute (9) DM type 2 (diabetes mellitus, type 2) Status: Acute (10) Gout Status: Acute (11) History of kidney transplant Status: Acute - Assessment and Plan (Free Text) Assessment: Remains with ams Received blood products, no further bleeding Schedule dialysis today - uf as tolerated Monitor bp in icu Abx as ordered Not clear that transplant will recover at this point
[2018-05-13] MEDS: Vitamins A & D Oint UD Foilpak TOP SCH ×2 (10:31→15:00)
[2018-05-13] MEDS: Multiple Vitamins Oral Solution PO SCH (10:31)
[2018-05-13] MEDS: Phytonadione 10 MG in Sodium Chloride 0.9% 50 ML IVPB SCH (10:33)
[2018-05-13] MEDS: Meropenem 500 MG in Sodium Chloride 0.9% 100 ML IVPB SCH ×2 (10:33→22:35)
[2018-05-13] MEDS ORDERED: metOLazone 5 MG TAB PO ONE (11:00)
--- NOTE | 2018-05-13 12:46 | RAD ---
Date of service: 05/13/2018 HISTORY: effusion COMPARISON: Portable chest 06/08/2018. 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 Limited patchy density is developing in the right base suspicious for atelectasis or infiltrate. PLEURA: Trace bilateral pleural effusion remains suspected. CARDIOVASCULAR: Calcific atherosclerotic changes are seen related to the thoracic aorta. Cardiomegaly is stable. Mild pulmonary vascular congestion remains. AICD/pacemaker reiterated with prior midline PICC now removed. OSSEOUS STRUCTURES: No significant abnormalities. VISUALIZED UPPER ABDOMEN: Normal. OTHER FINDINGS: None. IMPRESSION: Limited pulmonary vascular congestion unchanged. Limited patchy atelectasis or infiltrate developing in the right base trace bilateral pleural effusions reiterated. Right PICC removed. Cardiomegaly appears stable.
[2018-05-13] MEDS ORDERED: Verapamil 2 ML ONE (16:54)
--- NOTE | 2018-05-13 16:54 | CP.PCM.PN ---
Subjective - Date & Time of Evaluation Date of Evaluation: 05/13/18 Time of Evaluation: 16:52 - Subjective Subjective: Patient is having HD. BP: 170/80 HR: 134-150 bpm. Objective - Vital Signs/Intake and Output Vital Signs (last 24 hours): Temp Pulse Resp BP Pulse Ox 97.5 F L 98 H 15 173/81 H 100 05/13/18 14:40 05/13/18 14:40 05/13/18 14:40 05/13/18 16:40 05/13/18 14:40 Intake and Output: 05/13/18 05/13/18 06:59 18:59 Intake Total 1731.0 510 Output Total 0 Balance 1731.0 510 - Medications Medications: Current Medications Albumin Human (Albumin Human 25% (12.5 Gm/50 Ml)) 37.5 gm IV DAILY PRN PRN Reason: PER HD IF SBP IS LESS THAN 90 Albuterol/Ipratropium (Duoneb 3 Mg/0.5 Mg (3 Ml) Ud) 3 ml INH RQ4 [facility]S [facility]CLUDE 234 BEDS AT [facility] Last Admin: 05/13/18 16:11 Dose: 3 ml Bumetanide (Bumex) 3 mg IVP ONCE COUNTS INCLUDE 234 BEDS AT THE [facility] Last Admin: 05/13/18 10:35 Dose: 3 mg Calcium Acetate (Phoslo) 1,334 mg PO TIDCC COUNTS INCLUDE 234 BEDS AT THE [facility] Last Admin: 05/13/18 12:22 Dose: 1,334 mg Collagenase (Santyl) 0 gm TOP DAILY COUNTS INCLUDE 234 BEDS AT THE [facility] Last Admin: 05/13/18 09:00 Dose: 1 oin Cyanocobalamin (Vitamin B12 1000 Mcg Tab) 1,000 mcg PO DAILY COUNTS INCLUDE 234 BEDS AT THE [facility] Last Admin: 05/13/18 10:32 Dose: 1,000 mcg Dextrose (Dextrose 50% Inj) 0 ml IV STAT PRN; Protocol PRN Reason: Hypoglycemia Protocol Dextrose (Glutose 15) 0 gm PO ONCE PRN; Protocol PRN Reason: Hypoglycemia Protocol Diltiazem HCl (Cardizem Cd) 180 mg PO DAILY COUNTS INCLUDE 234 BEDS AT THE [facility] Folic Acid (Folic Acid) 1 mg PO DAILY COUNTS INCLUDE 234 BEDS AT THE [facility] Last Admin: 05/13/18 10:38 Dose: 1 mg Glucagon (Glucagen Diagnostic Kit) 0 mg IM STAT PRN; Protocol PRN Reason: Hypoglycemia Protocol Hydrocortisone Sodium Succinate (Solu-Cortef) 100 mg IV Q8H COUNTS INCLUDE 234 BEDS AT THE [facility] Last Admin: 05/13/18 10:34 Dose: 100 mg Dextrose (Dextrose 5% In Water 1000 Ml) 1,000 mls @ 0 mls/hr IV .Q0M PRN; Protocol PRN Reason: Hypoglycemia Protocol Daptomycin 300 mg/ Sodium (Chloride) 100 mls @ 200 mls/hr IV Q48H COUNTS INCLUDE 234 BEDS AT THE [facility] Last Admin: 05/12/18 19:39 Dose: 200 mls/hr Micafungin Sodium 100 mg/ (Sodium Chloride) 100 mls @ 100 mls/hr IV Q24H [facility]; Protocol Last Admin: 05/12/18 20:00 Dose: 100 mls/hr Doxycycline Hyclate 100 mg/ (Sodium Chloride) 100 mls @ 100 mls/hr IVPB Q12H S ; Protocol Last Admin: 05/13/18 10:33 Dose: 100 mls/hr Meropenem 500 mg/ Sodium (Chloride) 100 mls @ 100 mls/hr IVPB Q12H [facility]; Protocol Last Admin: 05/13/18 10:33 Dose: 100 mls/hr Phytonadione 10 mg/ Sodium (Chloride) 51 mls @ 102 mls/hr IVPB DAILY [facility] Stop: 05/14/18 10:29 Last Admin: 05/13/18 10:33 Dose: 102 mls/hr Insulin Human Regular (Novolin R) 0 unit SC ACHS [facility]; Protocol Last Admin: 05/13/18 12:20 Dose: Not Given Isoniazid (Niazid) 300 mg PO DAILY COUNTS INCLUDE 234 BEDS AT THE [facility]; Protocol Last Admin: 05/13/18 10:31 Dose: 300 mg Lactic Acid (Lac-Hydrin 12% Lotion (225 G)) 0 gm EXT Q8 [facility] Last Admin: 05/13/18 14:16 Dose: Not Given Levothyroxine Sodium (Synthroid) 150 mcg PO DAILY@0630 [facility] Last Admin: 05/13/18 05:36 Dose: Not Given Multivitamins/Vitamin C (Multi-Delyn Liquid) 5 ml PO DAILY COUNTS INCLUDE 234 BEDS AT THE [facility] Last Admin: 05/13/18 10:31 Dose: 5 ml Pantoprazole Sodium (Protonix Inj) 40 mg IVP Q12H [facility] Last Admin: 05/13/18 10:34 Dose: 40 mg Pyridoxine HCl (Vitamin B6 50 Mg Tab) 50 mg PO DAILY [facility] Last Admin: 05/13/18 10:32 Dose: 50 mg Rifampin (Rifampin Cap) 600 mg PO DAILY COUNTS INCLUDE 234 BEDS AT THE [facility]; Protocol Last Admin: 05/13/18 10:32 Dose: 600 mg Tacrolimus (Prograf) 5 mg PO BID COUNTS INCLUDE 234 BEDS AT THE [facility] Last Admin: 05/13/18 10:31 Dose: 5 mg Thiamine HCl (Vitamin B1 Inj) 200 mg IV Q8H COUNTS INCLUDE 234 BEDS AT THE [facility] Last Admin: 05/13/18 10:35 Dose: 200 mg Vitamin A (Vitamin A & D Oint Ud Foilpak) 0 ea TOP BID COUNTS INCLUDE 234 BEDS AT THE [facility] Last Admin: 05/13/18 10:31 Dose: 1 ea - Labs Labs: 05/13/18 08:31 05/13/18 08:31 PT 14.4 SECONDS (9.7-12.2) H 05/13/18 08:31 INR 1.3 05/13/18 08:31 APTT 37 SECONDS (21-34) H 05/13/18 08:31 - Constitutional Appears: No Acute Distress, Cachectic, Chronically Ill - Head Exam Head Exam: NORMAL INSPECTION - Eye Exam Eye Exam: Normal appearance - ENT Exam ENT Exam: Normal Exam - Neck Exam Neck Exam: Normal Inspection - Respiratory Exam Respiratory Exam: Rhonchi - Cardiovascular Exam Cardiovascular Exam: Tachycardia, Irregular Rhythm - GI/Abdominal Exam GI & Abdominal Exam: Soft, Normal Bowel Sounds - Rectal Exam Rectal Exam: Deferred - Extremities Exam Extremities Exam: Pedal Edema - Back Exam Back Exam: NORMAL INSPECTION - Neurological Exam Neurological Exam: Alert, Awake - Psychiatric Exam Psychiatric exam: Anxious - Skin Additional comments: Desquamation of skin Assessment and Plan (1) Hypothermia Status: Resolved (2) Hypoglycemia Status: Resolved (3) Hypotension Status: Resolved (4) Acute confusion Status: Acute (5) Exfoliative dermatitis Status: Resolved (6) Acute on chronic diastolic CHF (congestive heart failure) Status: Acute (7) YVAN (acute kidney injury) Assessment & Plan: Tolerating HD. Status: Acute
[2018-05-13] MEDS ORDERED: Phenylephrine 30 MG in Dextrose 5% In Water 250 ML IV PRN (17:00)
[2018-05-13] MEDS: Albumin Human 25% (12.5 gm/50 ml) IV SCH ×5 (17:23→20:12)
[2018-05-13] MEDS: Micafungin 100 MG in Sodium Chloride 0.9% 100 ML IV SCH (20:00)
[2018-05-14] MEDS: Albuterol-Ipratrop 3 mg / 0.5 (3 ml) UD INH SCH ×6 (00:01→19:39)
[2018-05-14] MEDS: Thiamine 100 mg/ml Inj IV SCH ×3 (01:30→17:01)
[2018-05-14 06:21] LABS: BASO % 0.2 % (0.0-2.0); EOS % 0.2 % (0.0-4.0); HEMOGLOBIN 8.2 g/dL (12.0-18.0); LYMPH # 0.3 K/uL (1.0-4.3); LYMPH % 2.4 % (20.0-40.0); MEAN CELL VOLUME 90.3 fL (80.0-94.0); MEAN CORPUSCULAR HEMOGLOBIN 29.6 pg (27.0-31.0); MEAN CORPUSCULAR HGB CONC 32.7 g/dL (33.0-37.0); MEAN PLATELET VOLUME 8.5 fL (7.2-11.7); MONO # 0.7 K/uL (0.0-0.8); MONO % 5.6 % (0.0-10.0); NEUT # 10.7 K/uL (1.8-7.0); NEUT % 91.6 % (50.0-75.0); NRBC % 4.9 % (0.0-2.0); PLATELET COUNT 98 K/uL (130-400); RBC 2.79 Mil/uL (4.40-5.90); RED CELL DISTRIBUTION WIDTH 24.9 % (11.5-14.5); WHITE BLOOD COUNT 11.6 K/uL (4.8-10.8)
[2018-05-14] MEDS: Levothyroxine 150 MCG TAB PO SCH (06:39)
[2018-05-14] MEDS: Ammonium Lactate 12% Lotion (225 g) EXT SCH ×3 (06:40→21:28)
[2018-05-14 06:49] LABS: ALB/GLOB RATIO 2.1 (1.0-2.1); ALBUMIN 4.3 g/dL (3.5-5.0)
[2018-05-14] MEDS: (Novolin R) Insulin Human Regular 100 units/ml vial SC SCH ×4 (08:14→21:22)
[2018-05-14 08:50] LABS: BANDS 9 % (0-2); LYMPHOCYTE 2 % (20-40); METAMYELOCYTE 1 % (0-0); MONOCYTE 6 % (0-10); MYELOCYTE 1 % (0-0); NEUTROPHIL 81 % (50-75); NUCLEATED RED BLOOD CELL 6 % (0-0); PLATELET ESTIMATE DECREASED (NORMAL); TOTAL CELLS COUNTED 100
[2018-05-14 08:51] LABS: ANISOCYTOSIS MARKED; HYPOCHROMIC SLIGHT; POIKILOCYTOSIS MODERATE; POLYCHROMIC SLIGHT; TOXIC GRANULATION PRESENT
[2018-05-14 08:52] LABS: BURR CELLS SLIGHT; OVALOCYTES SLIGHT; SCHISTOCYTES SLIGHT
[2018-05-14 08:53] LABS: LARGE PLATELETS PRESENT
[2018-05-14] MEDS: diltiaZEM 180 mg/24 Hours CD Cap PO SCH (09:03)
[2018-05-14] MEDS: Multiple Vitamins Oral Solution PO SCH (09:05)
[2018-05-14] MEDS: Vitamins A & D Oint UD Foilpak TOP SCH ×2 (09:08→17:01)
[2018-05-14] MEDS: Phytonadione 10 MG in Sodium Chloride 0.9% 50 ML IVPB SCH (10:36)
--- NOTE | 2018-05-14 10:48 | CP.PCM.PN ---
Subjective - Date & Time of Evaluation Date of Evaluation: 05/14/18 Time of Evaluation: 10:00 - Subjective Subjective: Patient awake, not on pressors, BP stable, poor oral intake Objective - Vital Signs/Intake and Output Vital Signs (last 24 hours): Temp Pulse Resp BP Pulse Ox 97.1 F L 104 H 17 170/78 H 100 05/14/18 05:00 05/14/18 08:00 05/14/18 08:00 05/14/18 07:49 05/14/18 08:00 Intake and Output: 05/14/18 05/14/18 06:59 18:59 Intake Total 100 Output Total 0 Balance 100 - Medications Medications: Current Medications Albumin Human (Albumin Human 25% (12.5 Gm/50 Ml)) 37.5 gm IV DAILY PRN PRN Reason: PER HD IF SBP IS LESS THAN 90 Albuterol/Ipratropium (Duoneb 3 Mg/0.5 Mg (3 Ml) Ud) 3 ml INH RQ4 [facility] Last Admin: 05/14/18 07:30 Dose: 3 ml Bumetanide (Bumex) 3 mg IVP ONCE [facility] Last Admin: 05/13/18 10:35 Dose: 3 mg Calcium Acetate (Phoslo) 1,334 mg PO TIDCC [facility] Last Admin: 05/14/18 09:02 Dose: 1,334 mg Collagenase (Santyl) 0 gm TOP DAILY [facility] Last Admin: 05/13/18 09:00 Dose: 1 oin Cyanocobalamin (Vitamin B12 1000 Mcg Tab) 1,000 mcg PO DAILY [facility] Last Admin: 05/14/18 09:05 Dose: 1,000 mcg Dextrose (Dextrose 50% Inj) 0 ml IV STAT PRN; Protocol PRN Reason: Hypoglycemia Protocol Dextrose (Glutose 15) 0 gm PO ONCE PRN; Protocol PRN Reason: Hypoglycemia Protocol Diltiazem HCl (Cardizem Cd) 180 mg PO DAILY [facility] Last Admin: 05/14/18 09:03 Dose: 180 mg Folic Acid (Folic Acid) 1 mg PO DAILY [facility] Last Admin: 05/14/18 09:04 Dose: 1 mg Glucagon (Glucagen Diagnostic Kit) 0 mg IM STAT PRN; Protocol PRN Reason: Hypoglycemia Protocol Hydrocortisone Sodium Succinate (Solu-Cortef) 100 mg IV Q8H [facility] Last Admin: 05/14/18 09:27 Dose: 100 mg Dextrose (Dextrose 5% In Water 1000 Ml) 1,000 mls @ 0 mls/hr IV .Q0M PRN; Protocol PRN Reason: Hypoglycemia Protocol Daptomycin 300 mg/ Sodium (Chloride) 100 mls @ 200 mls/hr IV Q48H [facility] Last Admin: 05/12/18 19:39 Dose: 200 mls/hr Micafungin Sodium 100 mg/ (Sodium Chloride) 100 mls @ 100 mls/hr IV Q24H [facility]; Protocol Last Admin: 05/13/18 20:00 Dose: 100 mls/hr Meropenem 500 mg/ Sodium (Chloride) 100 mls @ 100 mls/hr IVPB Q12H [facility]; Protocol Last Admin: 05/13/18 22:35 Dose: 100 mls/hr Phenylephrine HCl 30 mg/ (Dextrose) 253 mls @ 20.24 mls/hr IV .[id number] PRN; Protocol PRN Reason: TITRATE PER MD ORDER Last Titration: 05/13/18 18:30 Dose: 0 mcg/min, 0 mls/hr Insulin Human Regular (Novolin R) 0 unit SC ACHS [facility]; Protocol Last Admin: 05/14/18 08:14 Dose: Not Given Isoniazid (Niazid) 300 mg PO DAILY [facility]; Protocol Last Admin: 05/14/18 09:03 Dose: 300 mg Lactic Acid (Lac-Hydrin 12% Lotion (225 G)) 0 gm EXT Q8 [facility] Last Admin: 05/14/18 06:40 Dose: 1 applic Levothyroxine Sodium (Synthroid) 150 mcg PO DAILY@0630 [facility] Last Admin: 05/14/18 06:39 Dose: 150 mcg Multivitamins/Vitamin C (Multi-Delyn Liquid) 5 ml PO DAILY [facility] Last Admin: 05/14/18 09:05 Dose: 5 ml Pantoprazole Sodium (Protonix Inj) 40 mg IVP Q12H [facility] Last Admin: 05/14/18 09:04 Dose: 40 mg Pyridoxine HCl (Vitamin B6 50 Mg Tab) 50 mg PO DAILY [facility] Last Admin: 05/14/18 09:06 Dose: 50 mg Rifampin (Rifampin Cap) 600 mg PO DAILY [facility]; Protocol Last Admin: 05/14/18 09:05 Dose: 600 mg Tacrolimus (Prograf) 5 mg PO BID [facility] Last Admin: 05/14/18 09:05 Dose: 5 mg Thiamine HCl (Vitamin B1 Inj) 200 mg IV Q8H [facility] Last Admin: 05/14/18 09:04 Dose: 200 mg Verapamil HCl (Verapamil Inj) 2.5 mg IVP Q6H PRN PRN Reason: Heart rate Last Admin: 05/14/18 08:34 Dose: 2.5 mg Vitamin A (Vitamin A & D Oint Ud Foilpak) 0 ea TOP BID [facility] Last Admin: 05/14/18 09:08 Dose: 1 ea - Labs Labs: 05/14/18 06:18 05/14/18 06:18 PT 14.4 SECONDS (9.7-12.2) H 05/13/18 08:31 INR 1.3 05/13/18 08:31 APTT 37 SECONDS (21-34) H 05/13/18 08:31 Assessment and Plan - Assessment and Plan (Free Text) Assessment: -YVAN/CKD: continue HD consider 3.5 K bath or higher to avoid arrythmia -Sepsis: MDRO: continue abx as per ID -not on pressors -Arrythmia: continue diltiazem oral, PRN verapamil -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 - DNr/DNI -Continue to monitor PT/OT -activity oob to chair
[2018-05-14] MEDS: Meropenem 500 MG in Sodium Chloride 0.9% 100 ML IVPB SCH ×2 (10:53→22:17)
[2018-05-14] MEDS: Collagenase 250 Units/gm Ointment(30 gm) TOP SCH (10:53)
--- NOTE | 2018-05-14 15:27 | CP.PCM.PN ---
Subjective - Date & Time of Evaluation Date of Evaluation: 05/14/18 Time of Evaluation: 07:00 - Subjective Subjective: events noted ESBL sputum blood c/s neg renewed Merrem await cardio eval re FERNANDO findings Objective - Vital Signs/Intake and Output Vital Signs (last 24 hours): Temp Pulse Resp BP Pulse Ox 97.4 F L 114 H 23 171/93 H 98 05/14/18 13:00 05/14/18 13:35 05/14/18 13:35 05/14/18 13:35 05/14/18 13:00 Intake and Output: 05/14/18 05/14/18 06:59 18:59 Intake Total 500 Output Total 0 Balance 500 - Medications Medications: Current Medications Albumin Human (Albumin Human 25% (12.5 Gm/50 Ml)) 37.5 gm IV DAILY PRN PRN Reason: PER HD IF SBP IS LESS THAN 90 Albuterol/Ipratropium (Duoneb 3 Mg/0.5 Mg (3 Ml) Ud) 3 ml INH RQ4 [facility] Last Admin: 05/14/18 12:03 Dose: 3 ml Bumetanide (Bumex) 3 mg IVP ONCE [facility] Last Admin: 05/13/18 10:35 Dose: 3 mg Calcium Acetate (Phoslo) 1,334 mg PO TIDCC [facility] Last Admin: 05/14/18 11:01 Dose: 1,334 mg Collagenase (Santyl) 0 gm TOP DAILY [facility] Last Admin: 05/14/18 10:53 Dose: 1 oin Cyanocobalamin (Vitamin B12 1000 Mcg Tab) 1,000 mcg PO DAILY [facility] Last Admin: 05/14/18 09:05 Dose: 1,000 mcg Dextrose (Dextrose 50% Inj) 0 ml IV STAT PRN; Protocol PRN Reason: Hypoglycemia Protocol Dextrose (Glutose 15) 0 gm PO ONCE PRN; Protocol PRN Reason: Hypoglycemia Protocol Diltiazem HCl (Cardizem Cd) 180 mg PO DAILY [facility] Last Admin: 05/14/18 09:03 Dose: 180 mg Folic Acid (Folic Acid) 1 mg PO DAILY [facility] Last Admin: 05/14/18 09:04 Dose: 1 mg Glucagon (Glucagen Diagnostic Kit) 0 mg IM STAT PRN; Protocol PRN Reason: Hypoglycemia Protocol Heparin Sodium (Porcine) (Heparin) 5,000 units SC Q12 [facility] Last Admin: 05/14/18 11:00 Dose: 5,000 units Dextrose (Dextrose 5% In Water 1000 Ml) 1,000 mls @ 0 mls/hr IV .Q0M PRN; Protocol PRN Reason: Hypoglycemia Protocol Daptomycin 300 mg/ Sodium (Chloride) 100 mls @ 200 mls/hr IV Q48H [facility] Last Admin: 05/12/18 19:39 Dose: 200 mls/hr Micafungin Sodium 100 mg/ (Sodium Chloride) 100 mls @ 100 mls/hr IV Q24H [facility]; Protocol Last Admin: 05/13/18 20:00 Dose: 100 mls/hr Phenylephrine HCl 30 mg/ (Dextrose) 253 mls @ 20.24 mls/hr IV .[id number] PRN; Protocol PRN Reason: TITRATE PER MD ORDER Last Titration: 05/13/18 18:30 Dose: 0 mcg/min, 0 mls/hr Meropenem 500 mg/ Sodium (Chloride) 100 mls @ 100 mls/hr IVPB Q12H [facility]; Protocol Insulin Human Regular (Novolin R) 0 unit SC ACHS [facility]; Protocol Last Admin: 05/14/18 11:47 Dose: Not Given Lactic Acid (Lac-Hydrin 12% Lotion (225 G)) 0 gm EXT Q8 [facility] Last Admin: 05/14/18 13:52 Dose: 1 applic Levothyroxine Sodium (Synthroid) 150 mcg PO DAILY@0630 [facility] Last Admin: 05/14/18 06:39 Dose: 150 mcg Multivitamins/Vitamin C (Multi-Delyn Liquid) 5 ml PO DAILY [facility] Last Admin: 05/14/18 09:05 Dose: 5 ml Pantoprazole Sodium (Protonix Inj) 40 mg IVP Q12H [facility] Last Admin: 05/14/18 09:04 Dose: 40 mg Pyridoxine HCl (Vitamin B6 50 Mg Tab) 50 mg PO DAILY [facility] Last Admin: 05/14/18 09:06 Dose: 50 mg Tacrolimus (Prograf) 5 mg PO BID [facility] Last Admin: 05/14/18 09:05 Dose: 5 mg Thiamine HCl (Vitamin B1 Inj) 200 mg IV Q8H [facility] Last Admin: 05/14/18 09:04 Dose: 200 mg Verapamil HCl (Verapamil Inj) 2.5 mg IVP Q6H PRN PRN Reason: Heart rate Last Admin: 05/14/18 14:29 Dose: 2.5 mg Vitamin A (Vitamin A & D Oint Ud Foilpak) 0 ea TOP BID [facility] Last Admin: 05/14/18 09:08 Dose: 1 ea - Labs Labs: 05/14/18 06:18 05/14/18 06:18 PT 14.4 SECONDS (9.7-12.2) H 05/13/18 08:31 INR 1.3 05/13/18 08:31 APTT 37 SECONDS (21-34) H 05/13/18 08:31 - Constitutional Appears: Confused, Cachectic, Chronically Ill - Head Exam Head Exam: NORMOCEPHALIC - Eye Exam Eye Exam: absent: Scleral icterus - ENT Exam ENT Exam: Mucous Membranes Dry - Neck Exam Neck Exam: absent: Lymphadenopathy - Respiratory Exam Respiratory Exam: Decreased Breath Sounds - Cardiovascular Exam Cardiovascular Exam: Tachycardia, REGULAR RHYTHM - GI/Abdominal Exam GI & Abdominal Exam: Distended, Soft - Rectal Exam Rectal Exam: Deferred - Exam Exam: NORMAL INSPECTION Assessment and Plan (1) Acute confusion Status: Acute (2) Exfoliative dermatitis Status: Resolved (3) Hypothermia Status: Resolved (4) Sepsis Status: Acute (5) Anemia Status: Acute (6) Bronchiectasis with acute exacerbation Status: Acute (7) CKD (chronic kidney disease) stage 3, GFR 30-59 ml/min Status: Acute (8) COPD bronchitis Status: Acute (9) Cardiomyopathy Status: Acute (10) Chronic atrial fibrillation Status: Acute (11) Chronic kidney disease, stage III (moderate) Status: Acute (12) DM type 2 (diabetes mellitus, type 2) Status: Acute (13) Gout Status: Acute (14) HTN (hypertension), benign Status: Acute (15) History of kidney transplant Status: Acute (16) Kidney transplant recipient Status: Acute (17) SIRS (systemic inflammatory response syndrome) Status: Acute (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
--- NOTE | 2018-05-14 16:25 | PN ---
DATE: 05/14/2018 ENDOCRINOLOGY FOLLOWUP NOTE LOCATION: In ICU room 10. SUBJECTIVE: This is a 72-year-old male with recent altered mental status and ongoing bacteremia with IV antibiotic management and also anti-TB management as given and is being followed closely for metabolic management because of overt hypothyroidism as noted thereof. He has ongoing hemodialysis as noted, but has been refusing episodically the dialysis treatments as recommended. LABORATORY DATA: His latest chemistry showed a BUN of 30, sodium 147, potassium 3.8, chloride 109, CO2 of 20, glucose 107, and creatinine 2.8. His glucose levels have ranged from 118 to 131 mg/dL. His latest thyroid studies showed a T4 of 3.04 with a TSH of 4.03 and a free T4 of 2. ASSESSMENT AND PLAN: So at this time, he has been switched over from intravenous levothyroxine to oral levothyroxine given as 150 mcg once daily in the morning as ordered. We will obtain serial thyroid studies and adjust his dose regimen accordingly. We will follow this. Isamar Shane MD
[2018-05-14] MEDS: Micafungin 100 MG in Sodium Chloride 0.9% 100 ML IV SCH (20:35)
[2018-05-15] MEDS: Albuterol-Ipratrop 3 mg / 0.5 (3 ml) UD INH SCH ×5 (00:22→19:36)
[2018-05-15] MEDS: Thiamine 100 mg/ml Inj IV SCH ×3 (00:57→18:00)
[2018-05-15] MEDS: Ammonium Lactate 12% Lotion (225 g) EXT SCH ×3 (06:17→22:29)
[2018-05-15] MEDS: Levothyroxine 150 MCG TAB PO SCH (06:19)
[2018-05-15 06:37] LABS: BASO % 0.1 % (0.0-2.0); EOS # 0.1 K/uL (0.0-0.7); EOS % 0.7 % (0.0-4.0); HEMOGLOBIN 9.1 g/dL (12.0-18.0); LYMPH # 0.9 K/uL (1.0-4.3); LYMPH % 7.2 % (20.0-40.0); MEAN CELL VOLUME 91.3 fL (80.0-94.0); MEAN CORPUSCULAR HEMOGLOBIN 29.9 pg (27.0-31.0); MEAN CORPUSCULAR HGB CONC 32.7 g/dL (33.0-37.0); MEAN PLATELET VOLUME 8.8 fL (7.2-11.7); MONO # 0.7 K/uL (0.0-0.8); MONO % 5.2 % (0.0-10.0); NEUT % 86.8 % (50.0-75.0); NRBC % 6.2 % (0.0-2.0); PLATELET COUNT 104 K/uL (130-400); RBC 3.04 Mil/uL (4.40-5.90); RED CELL DISTRIBUTION WIDTH 24.9 % (11.5-14.5); WHITE BLOOD COUNT 12.7 K/uL (4.8-10.8)
[2018-05-15 06:57] LABS: ALB/GLOB RATIO 1.6 (1.0-2.1); ALBUMIN 3.8 g/dL (3.5-5.0); CALCIUM 8.2 mg/dl (8.6-10.4)
[2018-05-15 07:08] LABS: T4 1.22 ug/dL (5.5-11.0)
[2018-05-15] MEDS: (Novolin R) Insulin Human Regular 100 units/ml vial SC SCH ×4 (07:30→21:16)
--- NOTE | 2018-05-15 08:04 | CP.CCUPN ---
<Natasha Khan - Last Filed: 05/15/18 12:02> CCU Subjective - Physician Review Events Since Last Encounter (Free Text): 05/15/18 08:03 no over night events reported Subjective (Free Text): 05/15/18 08:03 Patient was seen and examined this morning. He is on BiPAP. No acute distress. Critical Care Time Spent (in minutes): 35 CCU Objective - Vital Signs / Intake & Output Vital Signs (Last 4 hours): Vital Signs Pulse Resp BP Pulse Ox 05/15/18 06:20 128 H 05/15/18 06:04 135 H 17 131/79 100 05/15/18 05:15 138 H 34 H 156/83 H 98 05/15/18 04:26 118 H Intake and Output (Last 8hrs): Intake & Output 05/14/18 05/15/18 05/15/18 22:59 06:59 14:59 Intake Total 350 Output Total 0 100 Balance 350 -100 Weight 124 lb 11.2 oz Intake: Intake, IV Amount 200 Right Femoral Side-Port 200 Oral 150 Output: Urine 100 Urine, Voided 100 Emesis 0 Other: # Voids Urine, Voided 1 0 # Bowel Movements 0 0 - Physical Exam Head: Positive for: Atraumatic, Normocephalic Pupils: Positive for: PERRL Extroacular Muscles: Positive for: EOMI Conjunctiva: Positive for: Normal Mouth: Positive for: Dry Pharnyx: Negative for: ERYTHEMA Respiratory/Chest: Positive for: Other (BiPAP). Negative for: Respiratory Distress, Accessory Muscle Use Cardiovascular: Positive for: Regular Rate and Rhythm, Normal S1, S2, Other (trialysis cath in R femoral). Negative for: Murmurs Abdomen: Positive for: Normal Bowel Sounds. Negative for: Tenderness, Distention, Peritoneal Signs Upper Extremity: Positive for: Swelling, Erythema, Neurovascularly Intact, Other (b/l skin sloughing) Lower Extremity: Positive for: Erythema, Neurovascularly Intact Neurological: Positive for: GCS=15, CN II-XII Intact Psychiatric: Positive for: Alert, Oriented x 3. Negative for: Agitated - Medications Active Medications: Active Medications Generic Name Dose Route Start Last Admin Trade Name Freq PRN Reason Stop Dose Admin Albumin Human 37.5 gm 05/12/18 16:00 Albumin Human 25% (12.5 Gm/50 Ml) IV DAILY PRN PER HD IF SBP IS LESS THAN 90 Albuterol/Ipratropium 3 ml 05/12/18 19:00 05/15/18 07:20 Duoneb 3 Mg/0.5 Mg (3 Ml) Ud INH 3 ml RQ4 FAHEEM Administration Bumetanide 3 mg 05/13/18 10:30 05/13/18 10:35 Bumex IVP 3 mg ONCE FAHEEM Administration Calcium Acetate 1,334 mg 05/12/18 13:21 05/14/18 17:00 Phoslo PO 1,334 mg TIDCC FHAEEM Administration Collagenase 0 gm 05/11/18 11:00 05/14/18 10:53 Santyl TOP 1 oin DAILY FAHEEM Administration Cyanocobalamin 1,000 mcg 05/12/18 10:00 05/14/18 09:05 Vitamin B12 1000 Mcg Tab PO 1,000 mcg DAILY FAHEEM Administration Dextrose 0 ml 05/08/18 17:53 Dextrose 50% Inj IV STAT PRN Hypoglycemia Protocol Protocol Dextrose 0 gm 05/08/18 17:53 Glutose 15 PO ONCE PRN Hypoglycemia Protocol Protocol Diltiazem HCl 180 mg 05/14/18 10:00 05/14/18 09:03 Cardizem Cd PO 180 mg DAILY FAHEEM Administration Folic Acid 1 mg 05/09/18 10:00 05/14/18 09:04 Folic Acid PO 1 mg DAILY FAHEEM Administration Glucagon 0 mg 05/08/18 17:53 Glucagen Diagnostic Kit IM STAT PRN Hypoglycemia Protocol Protocol Heparin Sodium (Porcine) 5,000 units 05/14/18 11:00 05/14/18 22:17 Heparin SC 5,000 units Q12 FAHEEM Administration Dextrose 1,000 mls @ 0 mls/hr 05/08/18 17:53 Dextrose 5% In Water 1000 Ml IV .Q0M PRN Hypoglycemia Protocol Protocol Per Protocol Daptomycin 300 mg/ Sodium 100 mls @ 200 mls/hr 05/10/18 18:30 05/14/18 17:30 Chloride IV 200 mls/hr Q48H FAHEEM Administration Micafungin Sodium 100 mg/ 100 mls @ 100 mls/hr 05/10/18 20:00 05/14/18 20:35 Sodium Chloride IV 100 mls/hr Q24H FAHEEM Administration Protocol Phenylephrine HCl 30 mg/ 253 mls @ 20.24 mls/hr 05/13/18 17:00 05/13/18 18:30 Dextrose IV 0 mcg/min .[id number] PRN 0 mls/hr TITRATE PER MD ORDER Titration Protocol 40 MCG/MIN Meropenem 500 mg/ Sodium 100 mls @ 100 mls/hr 05/14/18 23:00 05/14/18 22:17 Chloride IVPB 100 mls/hr Q12H FAHEEM Administration Protocol Insulin Human Regular 0 unit 05/09/18 16:30 05/14/18 21:22 Novolin R SC Not Given ACHS FAHEEM Protocol Lactic Acid 0 gm 05/12/18 07:00 05/15/18 06:17 Lac-Hydrin 12% Lotion (225 G) EXT 1 applic Q8 FAHEEM Administration Levothyroxine Sodium 150 mcg 05/13/18 06:30 05/15/18 06:19 Synthroid PO 150 mcg DAILY@0630 FAHEEM Administration Multivitamins/Vitamin C 5 ml 05/12/18 10:00 05/14/18 09:05 Multi-Delyn Liquid PO 5 ml DAILY FAHEEM Administration Pantoprazole Sodium 40 mg 05/12/18 21:00 05/14/18 20:35 Protonix Inj IVP 40 mg Q12H FAHEEM Administration Potassium Chloride 40 meq 05/15/18 08:15 Potassium Chloride Oral Soln PO 05/15/18 08:16 ONCE ONE Pyridoxine HCl 50 mg 05/09/18 10:00 05/14/18 09:06 Vitamin B6 50 Mg Tab PO 50 mg DAILY FAHEEM Administration Tacrolimus 5 mg 05/08/18 18:00 05/14/18 17:01 Prograf PO 5 mg BID FAHEEM Administration Thiamine HCl 200 mg 05/11/18 09:45 05/15/18 00:57 Vitamin B1 Inj IV 200 mg Q8H FAHEEM Administration Verapamil HCl 2.5 mg 05/13/18 16:52 05/15/18 03:35 Verapamil Inj IVP 2.5 mg Q6H PRN Administration Heart rate Vitamin A 0 ea 05/11/18 18:00 05/14/18 17:01 Vitamin A & D Oint Ud Foilpak TOP 1 ea BID FAHEEM Administration - Patient Studies Lab Studies: Lab Studies 05/15/18 05/15/18 05/15/18 Range/Units 07:23 06:27 06:27 WBC (4.8-10.8) K/uL RBC (4.40-5.90) Mil/uL Hgb (12.0-18.0) g/dL Hct (35.0-51.0) % MCV (80.0-94.0) fL MCH (27.0-31.0) pg MCHC (33.0-37.0) g/dL RDW (11.5-14.5) % Plt Count (130-400) K/uL MPV (7.2-11.7) fL Neut % (Auto) (50.0-75.0) % Lymph % (Auto) (20.0-40.0) % [place] % (Auto) (0.0-10.0) % Eos % (Auto) (0.0-4.0) % Baso % (Auto) (0.0-2.0) % Neut # (Auto) (1.8-7.0) K/uL Lymph # (Auto) (1.0-4.3) K/uL [place] # (Auto) (0.0-0.8) K/uL Eos # (Auto) (0.0-0.7) K/uL Baso # (Auto) (0.0-0.2) K/uL Neutrophils % (Manual) (50-75) % Band Neutrophils % (0-2) % Lymphocytes % (Manual) (20-40) % Monocytes % (Manual) (0-10) % Metamyelocytes % (0-0) % Myelocytes % (0-0) % Nucleated RBC % (0-0) % Toxic Granulation Platelet Estimate (NORMAL) Large Platelets Polychromasia Hypochromasia (manual) Poikilocytosis (manual Basophilic Stippling Anisocytosis (manual) Ovalocytes [employer] Cells Schistocytes Sodium 148 (132-148) mmol/L Potassium 3.5 L (3.6-5.2) mmol/L Chloride 110 H (98-107) mmol/L Carbon Dioxide 24 (22-30) mmol/L Anion Gap 17 (10-20) BUN 45 H (9-20) mg/dL Creatinine 3.3 H (0.8-1.5) mg/dL Est GFR ( Amer) 22 Est GFR (Non-Af Amer) 19 POC Glucose (mg/dL) 93 (65-110) mg/dL Random Glucose 107 (75-110) mg/dL Calcium 8.2 L (8.6-10.4) mg/dl Phosphorus 5.1 H (2.5-4.5) mg/dL Magnesium 1.9 (1.6-2.3) mg/dL Total Bilirubin 1.2 (0.2-1.3) mg/dL AST 88 H D (17-59) U/L ALT 75 H (21-72) U/L Alkaline Phosphatase 75 (38-126) U/L Total Protein 6.1 L (6.3-8.3) g/dL Albumin 3.8 (3.5-5.0) g/dL Globulin 2.3 (2.2-3.9) gm/dL Albumin/Globulin Ratio 1.6 (1.0-2.1) Free T4 0.45 L (0.78-2.19) ng/dL Thyroxine (T4) 1.22 L (5.5-11.0) ug/dL 05/15/18 05/15/18 05/14/18 Range/Units 06:26 01:16 21:16 WBC 12.7 H (4.8-10.8) K/uL RBC 3.04 L (4.40-5.90) Mil/uL Hgb 9.1 L (12.0-18.0) g/dL Hct 27.8 L (35.0-51.0) % MCV 91.3 (80.0-94.0) fL MCH 29.9 (27.0-31.0) pg MCHC 32.7 L (33.0-37.0) g/dL RDW 24.9 H (11.5-14.5) % Plt Count 104 L (130-400) K/uL MPV 8.8 (7.2-11.7) fL Neut % (Auto) 86.8 H (50.0-75.0) % Lymph % (Auto) 7.2 L (20.0-40.0) % [place] % (Auto) 5.2 (0.0-10.0) % Eos % (Auto) 0.7 (0.0-4.0) % Baso % (Auto) 0.1 (0.0-2.0) % Neut # (Auto) 11.0 H (1.8-7.0) K/uL Lymph # (Auto) 0.9 L (1.0-4.3) K/uL [place] # (Auto) 0.7 (0.0-0.8) K/uL Eos # (Auto) 0.1 (0.0-0.7) K/uL Baso # (Auto) 0.0 (0.0-0.2) K/uL Neutrophils % (Manual) (50-75) % Band Neutrophils % (0-2) % Lymphocytes % (Manual) (20-40) % Monocytes % (Manual) (0-10) % Metamyelocytes % (0-0) % Myelocytes % (0-0) % Nucleated RBC % (0-0) % Toxic Granulation Platelet Estimate (NORMAL) Large Platelets Polychromasia Hypochromasia (manual) Poikilocytosis (manual Basophilic Stippling Anisocytosis (manual) Ovalocytes [employer] Cells Schistocytes Sodium (132-148) mmol/L Potassium (3.6-5.2) mmol/L Chloride (98-107) mmol/L Carbon Dioxide (22-30) mmol/L Anion Gap (10-20) BUN (9-20) mg/dL Creatinine (0.8-1.5) mg/dL Est GFR ( Amer) Est GFR (Non-Af Amer) POC Glucose (mg/dL) 129 H 151 H (65-110) mg/dL Random Glucose (75-110) mg/dL Calcium (8.6-10.4) mg/dl Phosphorus (2.5-4.5) mg/dL Magnesium (1.6-2.3) mg/dL Total Bilirubin (0.2-1.3) mg/dL AST (17-59) U/L ALT (21-72) U/L Alkaline Phosphatase (38-126) U/L Total Protein (6.3-8.3) g/dL Albumin (3.5-5.0) g/dL Globulin (2.2-3.9) gm/dL Albumin/Globulin Ratio (1.0-2.1) Free T4 (0.78-2.19) ng/dL Thyroxine (T4) (5.5-11.0) ug/dL 05/14/18 05/14/18 05/14/18 Range/Units 16:11 12:26 06:18 WBC (4.8-10.8) K/uL RBC (4.40-5.90) Mil/uL Hgb (12.0-18.0) g/dL Hct (35.0-51.0) % MCV (80.0-94.0) fL MCH (27.0-31.0) pg MCHC (33.0-37.0) g/dL RDW (11.5-14.5) % Plt Count (130-400) K/uL MPV (7.2-11.7) fL Neut % (Auto) (50.0-75.0) % Lymph % (Auto) (20.0-40.0) % [place] % (Auto) (0.0-10.0) % Eos % (Auto) (0.0-4.0) % Baso % (Auto) (0.0-2.0) % Neut # (Auto) (1.8-7.0) K/uL Lymph # (Auto) (1.0-4.3) K/uL [place] # (Auto) (0.0-0.8) K/uL Eos # (Auto) (0.0-0.7) K/uL Baso # (Auto) (0.0-0.2) K/uL Neutrophils % (Manual) 81 H (50-75) % Band Neutrophils % 9 H (0-2) % Lymphocytes % (Manual) 2 L (20-40) % Monocytes % (Manual) 6 (0-10) % Metamyelocytes % 1 H (0-0) % Myelocytes % 1 H (0-0) % Nucleated RBC % 6 H (0-0) % Toxic Granulation Present Platelet Estimate Decreased L (NORMAL) Large Platelets Present Polychromasia Slight Hypochromasia (manual) Slight Poikilocytosis (manual Moderate Basophilic Stippling Slight Anisocytosis (manual) Marked Ovalocytes Slight [employer] Cells Slight Schistocytes Slight Sodium (132-148) mmol/L Potassium (3.6-5.2) mmol/L Chloride (98-107) mmol/L Carbon Dioxide (22-30) mmol/L Anion Gap (10-20) BUN (9-20) mg/dL Creatinine (0.8-1.5) mg/dL Est GFR ( Amer) Est GFR (Non-Af Amer) POC Glucose (mg/dL) 197 H 134 H (65-110) mg/dL Random Glucose (75-110) mg/dL Calcium (8.6-10.4) mg/dl Phosphorus (2.5-4.5) mg/dL Magnesium (1.6-2.3) mg/dL Total Bilirubin (0.2-1.3) mg/dL AST (17-59) U/L ALT (21-72) U/L Alkaline Phosphatase (38-126) U/L Total Protein (6.3-8.3) g/dL Albumin (3.5-5.0) g/dL Globulin (2.2-3.9) gm/dL Albumin/Globulin Ratio (1.0-2.1) Free T4 (0.78-2.19) ng/dL Thyroxine (T4) (5.5-11.0) ug/dL Laboratory Results - last 24 hr 05/14/18 05/14/18 05/14/18 06:18 12:26 16:11 WBC RBC Hgb Hct MCV MCH MCHC RDW Plt Count MPV Neut % (Auto) Lymph % (Auto) [place] % (Auto) Eos % (Auto) Baso % (Auto) Neut # (Auto) Lymph # (Auto) [place] # (Auto) Eos # (Auto) Baso # (Auto) Neutrophils % (Manual) 81 H Band Neutrophils % 9 H Lymphocytes % (Manual) 2 L Monocytes % (Manual) 6 Metamyelocytes % 1 H Myelocytes % 1 H Nucleated RBC % 6 H Toxic Granulation Present Platelet Estimate Decreased L Large Platelets Present Polychromasia Slight Hypochromasia (manual) Slight Poikilocytosis (manual Moderate Basophilic Stippling Slight Anisocytosis (manual) Marked Ovalocytes Slight [employer] Cells Slight Schistocytes Slight Sodium Potassium Chloride Carbon Dioxide Anion Gap BUN Creatinine Est GFR ( Amer) Est GFR (Non-Af Amer) POC Glucose (mg/dL) 134 H 197 H Random Glucose Calcium Phosphorus Magnesium Total Bilirubin AST ALT Alkaline Phosphatase Total Protein Albumin Globulin Albumin/Globulin Ratio Free T4 Thyroxine (T4) 05/14/18 05/15/18 05/15/18 21:16 01:16 06:26 WBC 12.7 H RBC 3.04 L Hgb 9.1 L Hct 27.8 L MCV 91.3 MCH 29.9 MCHC 32.7 L RDW 24.9 H Plt Count 104 L MPV 8.8 Neut % (Auto) 86.8 H Lymph % (Auto) 7.2 L [place] % (Auto) 5.2 Eos % (Auto) 0.7 Baso % (Auto) 0.1 Neut # (Auto) 11.0 H Lymph # (Auto) 0.9 L [place] # (Auto) 0.7 Eos # (Auto) 0.1 Baso # (Auto) 0.0 Neutrophils % (Manual) Band Neutrophils % Lymphocytes % (Manual) Monocytes % (Manual) Metamyelocytes % Myelocytes % Nucleated RBC % Toxic Granulation Platelet Estimate Large Platelets Polychromasia Hypochromasia (manual) Poikilocytosis (manual Basophilic Stippling Anisocytosis (manual) Ovalocytes [employer] [place] Cells Schistocytes Sodium Potassium Chloride Carbon Dioxide Anion Gap BUN Creatinine Est GFR ( Amer) Est GFR (Non-Af Amer) POC Glucose (mg/dL) 151 H 129 H Random Glucose Calcium Phosphorus Magnesium Total Bilirubin AST ALT Alkaline Phosphatase Total Protein Albumin Globulin Albumin/Globulin Ratio Free T4 Thyroxine (T4) 05/15/18 05/15/18 05/15/18 06:27 06:27 07:23 WBC RBC Hgb Hct MCV MCH MCHC RDW Plt Count MPV Neut % (Auto) Lymph % (Auto) [place] % (Auto) Eos % (Auto) Baso % (Auto) Neut # (Auto) Lymph # (Auto) [place] # (Auto) Eos # (Auto) Baso # (Auto) Neutrophils % (Manual) Band Neutrophils % Lymphocytes % (Manual) Monocytes % (Manual) Metamyelocytes % Myelocytes % Nucleated RBC % Toxic Granulation Platelet Estimate Large Platelets Polychromasia Hypochromasia (manual) Poikilocytosis (manual Basophilic Stippling Anisocytosis (manual) Ovalocytes [place] Cells Schistocytes Sodium 148 Potassium 3.5 L Chloride 110 H Carbon Dioxide 24 Anion Gap 17 BUN 45 H Creatinine 3.3 H Est GFR ( Amer) 22 Est GFR (Non-Af Amer) 19 POC Glucose (mg/dL) 93 Random Glucose 107 Calcium 8.2 L Phosphorus 5.1 H Magnesium 1.9 Total Bilirubin 1.2 AST 88 H D ALT 75 H Alkaline Phosphatase 75 Total Protein 6.1 L Albumin 3.8 Globulin 2.3 Albumin/Globulin Ratio 1.6 Free T4 0.45 L Thyroxine (T4) 1.22 L Fingerstick Blood Sugar Results: 151 Results Reviewed to Date: Yes Review of Systems - Review of Systems Systems not reviewed;Unavailable: Altered Mental Status (lethargic) Critical Care Progress Note - Extremities/Vascular Does the Patient have a Central Venous Catheter?: Yes Insertion Site: Femoral Vein (right) Does the Patient need a Central Venous Catheter?: Yes Does the Patient have a Ramires Catheter?: No Does the Patient need a Ramires Catheter?: No - Prophylaxis GI Prophylaxis GI: PPI - Prophylaxis DVT Prophylaxis DVT: Heparin SQ - Nutrition Nutrition: Nutrition Category Date Time Status NPO Diet [DIET] Diets 05/12/18 Dinner Active Assessment/Plan - Assessment and Plan (Free Text) Assessment: Patient is a 72 yo male with multiple medical issues who presented with slurred speech and edematous upper extremities. Patient was found to be hypothermic, hypoglycemic, and hypotensive. 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 He has been taken off isolation. His mental status continues to wax and wane. He is weak with poor appetite and has a productive cough. Plan: Neuro: AMS- delirium - [place] patient - Neuro checks CV: Hypotension- septic shock, improved - Monitor vitals - Off pressors - Albumin 37.5 g IV daily PRN if SBP <90 CHF (HFpEF) - s/p AICD/pacemaker - CXR 05/11: mild-mod venous congestion, worsening small b/l pleural effusions, reticulated opacifiction in R upper-mid lung and L apex, cardiomegaly - CT chest/abd/pelvis 05/10: moderate b/l pleural effusions, chronic fibrotic changes, moderate pericardial effusions, diffuse anasarca - Echo 05/08: EF 66%, no vegetation seen, mild-mod TR, RV systolic pressure 40- 50 mmHg, small-mod pericardial effusion Afib, RVR - Verapamil 2.5 mg IV Q6H PRN - Diltiazem 180 mg PO daily - Eliquis 2.5 mg PO BID- hold Pulm: Respiratory distress- 2/2 fluid overload - CXR 05/11: mild-mod venous congestion, worsening small b/l pleural effusions, reticulated opacifiction in R upper-mid lung and L apex, cardiomegaly - CXR 05/12: pulm venous congestion, small pleural effusions, background COPD - CT chest/abd/pelvis 05/10: moderate b/l pleural effusions, chronic fibrotic changes, moderate pericardial effusions, diffuse anasarca - Maintain spO2>92%- supplemental O2, BiPAP PRN - Duoneb Q4H GI: Anasarca - CT chest/abd/pelvis 05/10: moderate b/l pleural effusions, chronic fibrotic changes, moderate pericardial effusions, diffuse anasarca - Decreased albumin- improved (3.8) Poor PO intake - Clear liquid diet - Glucerna supplements x3 - MV/vit C - Protonix 40 mg PO daily - [place] Operator consulted Renal: Renal failure - s/p R kidney transplant in 2004 - Oliguric- bladder scans do not show urinary retention - Renal u/s: no abnormalities visualized - Elevated BUN, Cr worsening (45, 3.3) - HD on 05/12, 05/13, stopped prematurely due to SVT/Vtach - CMP daily - Replete electrolytes PRN - Phoslo 1334 mg PO TID - Solu-cortef 100 mg IV Q8H - Decrease Tacrolimus to 4 mg PO BID - Tacrolimus level low normal (6.8->4.6)- continue to monitor - Nephrology consulted (Ghanshyam)- rec "SLED" HD today 05/15 Endo: T2DM - Maintain euglycemia - Hypoglycemia protocol - Accuchecks ACHS with low dose regular ISS Hypothyroidism - TSH improved (42.6->19.3->4.03), free T4 low (0.45), total T4 low (1.22) - Thyroid Abs not detected - Decrease Synthroid to 150 mcg PO daily - Endocrinology consulted (Cam) Heme: Coagulopathy - PT/INR/PTT improved- s/p 4u FFP on 05/12 and Vit K 10 mg IV x 3 days - Mild thrombocytopenia (109) - Fibrinogen low (196), and fibrinogen degradation products >40 - Monitor coags- cryoprecip if fibrinogen <150 - Venous Dopplers of extremities pending Anemia - Anemic at BL- stable s/p 1u PRBC on 05/12 - FOBT negative - Monitor CBC - Folic acid 1 mg PO daily - Thiamine 200 mg IV Q8H ID: Septic shock- improving - Temp 88.6 on admission, resolved - Mild leukocytosis (sepsis vs steroids)- 8 bands - Lactate wnl - Procal 3.68 - Sputum Cx: ESBL - Blood, Urine Cx no growth - MRSA screen negative - HIV negative - C. 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 - L knee XR: moderate suprapatellar effusion and soft tissue swelling - Rifampin 600 mg PO daily - Isoniazid 300 mg PO daily - Ortho consulted (La)- no procedures indicated at this time, rec plastics - ID consulted (Charity)- continue dual TB therapy Integumentary: Desquamating rash - Mucous membranes NOT involved - Folic acid 1 mg PO daily - Thiamine 200 mg IV Q8H - Cyanocobalmin 1000 mcg PO daily - Vit A%D ointment - Collagenase - Lac-hydrin - Wound care consult PPx: VTE: Heparin 5000 units SC Q12H GI: PTX 40 mg PO daily PT/OT/ST- OOB to chair Code status: DNR/DNI (POLST) Palliative consult- patient and family initially agreeable to hospice eval Hospice eval- patient and family now willing to pursue further treatment Case discussed with attending, Dr. Cobb. PGY-1 Natasha Khan D.O. <Ajay Cobb - Last Filed: 05/15/18 14:30> CCU Objective - Vital Signs / Intake & Output Vital Signs (Last 4 hours): Vital Signs Pulse 05/15/18 14:01 148 H Intake and Output (Last 8hrs): Intake & Output 05/14/18 05/15/18 05/15/18 22:59 06:59 14:59 Intake Total 350 50 Output Total 0 100 Balance 350 -100 50 Weight 124 lb 11.2 oz Intake: Intake, IV Amount 200 50 Right Femoral Side-Port 200 50 Oral 150 0 Output: Urine 100 Urine, Voided 100 Emesis 0 Other: # Voids Urine, Voided 1 0 # Bowel Movements 0 0 - Medications Active Medications: Active Medications Generic Name Dose Route Start Last Admin Trade Name Freq PRN Reason Stop Dose Admin Albumin Human 37.5 gm 05/12/18 16:00 Albumin Human 25% (12.5 Gm/50 Ml) IV DAILY PRN PER HD IF SBP IS LESS THAN 90 Albuterol/Ipratropium 3 ml 05/12/18 19:00 05/15/18 11:48 Duoneb 3 Mg/0.5 Mg (3 Ml) Ud INH 3 ml RQ4 FAHEEM Administration Calcium Acetate 1,334 mg 05/12/18 13:21 05/15/18 13:02 Phoslo PO 1,334 mg TIDCC FAHEEM Administration Collagenase 0 gm 05/11/18 11:00 05/15/18 10:41 Santyl TOP 1 oin DAILY FAHEEM Administration Cyanocobalamin 1,000 mcg 05/12/18 10:00 05/15/18 10:35 Vitamin B12 1000 Mcg Tab PO 1,000 mcg DAILY FAHEEM Administration Dextrose 0 ml 05/08/18 17:53 Dextrose 50% Inj IV STAT PRN Hypoglycemia Protocol Protocol Dextrose 0 gm 05/08/18 17:53 Glutose 15 PO ONCE PRN Hypoglycemia Protocol Protocol Diltiazem HCl 180 mg 05/14/18 10:00 05/15/18 10:31 Cardizem Cd PO 180 mg DAILY FAHEEM Administration Folic Acid 1 mg 05/09/18 10:00 05/15/18 10:31 Folic Acid PO 1 mg DAILY FAHEEM Administration Glucagon 0 mg 05/08/18 17:53 Glucagen Diagnostic Kit IM STAT PRN Hypoglycemia Protocol Protocol Heparin Sodium (Porcine) 5,000 units 05/14/18 11:00 05/15/18 10:32 Heparin SC 5,000 units Q12 FAHEEM Administration Dextrose 1,000 mls @ 0 mls/hr 05/08/18 17:53 Dextrose 5% In Water 1000 Ml IV .Q0M PRN Hypoglycemia Protocol Protocol Per Protocol Daptomycin 300 mg/ Sodium 100 mls @ 200 mls/hr 05/10/18 18:30 05/14/18 17:30 Chloride IV 200 mls/hr Q48H FAHEEM Administration Micafungin Sodium 100 mg/ 100 mls @ 100 mls/hr 05/10/18 20:00 05/14/18 20:35 Sodium Chloride IV 100 mls/hr Q24H FAHEEM Administration Protocol Phenylephrine HCl 30 mg/ 253 mls @ 20.24 mls/hr 05/13/18 17:00 05/13/18 18:30 Dextrose IV 0 mcg/min .[id number] PRN 0 mls/hr TITRATE PER MD ORDER Titration Protocol 40 MCG/MIN Meropenem 500 mg/ Sodium 100 mls @ 100 mls/hr 05/14/18 23:00 05/15/18 10:32 Chloride IVPB 100 mls/hr Q12H FAHEEM Administration Protocol Insulin Human Regular 0 unit 05/09/18 16:30 05/15/18 11:30 Novolin R SC Not Given ACHS FAHEEM Protocol Isoniazid 300 mg 05/15/18 12:00 05/15/18 13:05 Niazid PO 300 mg DAILY FAHEEM Administration Protocol Lactic Acid 0 gm 05/12/18 07:00 05/15/18 13:11 Lac-Hydrin 12% Lotion (225 G) EXT 1 applic Q8 FAHEEM Administration Levothyroxine Sodium 150 mcg 05/13/18 06:30 05/15/18 06:19 Synthroid PO 150 mcg DAILY@0630 FAHEEM Administration Multivitamins 1 tab 05/15/18 13:00 05/15/18 13:09 Hexavitamin PO 1 tab DAILY FAHEEM Administration Pantoprazole Sodium 40 mg 05/12/18 21:00 05/15/18 08:28 Protonix Inj IVP 40 mg Q12H FAHEEM Administration Pyridoxine HCl 50 mg 05/09/18 10:00 05/15/18 10:36 Vitamin B6 50 Mg Tab PO 50 mg DAILY FAHEEM Administration Rifampin 600 mg 05/15/18 12:00 05/15/18 13:03 Rifampin Cap PO 600 mg DAILY FAHEEM Administration Protocol Tacrolimus 4 mg 05/15/18 11:35 Prograf Cap PO BID FAHEEM Thiamine HCl 200 mg 05/11/18 09:45 05/15/18 10:34 Vitamin B1 Inj IV 200 mg Q8H FAHEEM Administration Verapamil HCl 2.5 mg 05/13/18 16:52 05/15/18 03:35 Verapamil Inj IVP 2.5 mg Q6H PRN Administration Heart rate Vitamin A 0 ea 05/11/18 18:00 05/15/18 10:34 Vitamin A & D Oint Ud Foilpak TOP 1 ea BID FAHEEM Administration - Patient Studies Lab Studies: Lab Studies 05/15/18 05/15/18 05/15/18 Range/Units 11:06 07:23 06:27 WBC (4.8-10.8) K/uL RBC (4.40-5.90) Mil/uL Hgb (12.0-18.0) g/dL Hct (35.0-51.0) % MCV (80.0-94.0) fL MCH (27.0-31.0) pg MCHC (33.0-37.0) g/dL RDW (11.5-14.5) % Plt Count (130-400) K/uL MPV (7.2-11.7) fL Neut % (Auto) (50.0-75.0) % Lymph % (Auto) (20.0-40.0) % [place] % (Auto) (0.0-10.0) % Eos % (Auto) (0.0-4.0) % Baso % (Auto) (0.0-2.0) % Neut # (Auto) (1.8-7.0) K/uL Lymph # (Auto) (1.0-4.3) K/uL [place] # (Auto) (0.0-0.8) K/uL Eos # (Auto) (0.0-0.7) K/uL Baso # (Auto) (0.0-0.2) K/uL Neutrophils % (Manual) (50-75) % Band Neutrophils % (0-2) % Lymphocytes % (Manual) (20-40) % Monocytes % (Manual) (0-10) % Eosinophils % (Manual) (0-4) % Myelocytes % (0-0) % Nucleated RBC % (0-0) % Platelet Estimate (NORMAL) Polychromasia Hypochromasia (manual) Anisocytosis (manual) Tear Drop Cells Ovalocytes Sodium (132-148) mmol/L Potassium (3.6-5.2) mmol/L Chloride (98-107) mmol/L Carbon Dioxide (22-30) mmol/L Anion Gap (10-20) BUN (9-20) mg/dL Creatinine (0.8-1.5) mg/dL Est GFR ( Amer) Est GFR (Non-Af Amer) POC Glucose (mg/dL) 88 93 (65-110) mg/dL Random Glucose (75-110) mg/dL Calcium (8.6-10.4) mg/dl Phosphorus (2.5-4.5) mg/dL Magnesium (1.6-2.3) mg/dL Total Bilirubin (0.2-1.3) mg/dL AST (17-59) U/L ALT (21-72) U/L Alkaline Phosphatase (38-126) U/L Total Protein (6.3-8.3) g/dL Albumin (3.5-5.0) g/dL Globulin (2.2-3.9) gm/dL Albumin/Globulin Ratio (1.0-2.1) Free T4 0.45 L (0.78-2.19) ng/dL Thyroxine (T4) (5.5-11.0) ug/dL 05/15/18 05/15/18 05/15/18 Range/Units 06:27 06:26 01:16 WBC 12.7 H (4.8-10.8) K/uL RBC 3.04 L (4.40-5.90) Mil/uL Hgb 9.1 L (12.0-18.0) g/dL Hct 27.8 L (35.0-51.0) % MCV 91.3 (80.0-94.0) fL MCH 29.9 (27.0-31.0) pg MCHC 32.7 L (33.0-37.0) g/dL RDW 24.9 H (11.5-14.5) % Plt Count 104 L (130-400) K/uL MPV 8.8 (7.2-11.7) fL Neut % (Auto) 86.8 H (50.0-75.0) % Lymph % (Auto) 7.2 L (20.0-40.0) % [place] % (Auto) 5.2 (0.0-10.0) % Eos % (Auto) 0.7 (0.0-4.0) % Baso % (Auto) 0.1 (0.0-2.0) % Neut # (Auto) 11.0 H (1.8-7.0) K/uL Lymph # (Auto) 0.9 L (1.0-4.3) K/uL [place] # (Auto) 0.7 (0.0-0.8) K/uL Eos # (Auto) 0.1 (0.0-0.7) K/uL Baso # (Auto) 0.0 (0.0-0.2) K/uL Neutrophils % (Manual) 72 (50-75) % Band Neutrophils % 8 H (0-2) % Lymphocytes % (Manual) 11 L (20-40) % Monocytes % (Manual) 6 (0-10) % Eosinophils % (Manual) 1 (0-4) % Myelocytes % 2 H (0-0) % Nucleated RBC % 5 H (0-0) % Platelet Estimate Slightly decreased L (NORMAL) Polychromasia Slight Hypochromasia (manual) Slight Anisocytosis (manual) Moderate Tear Drop Cells Slight Ovalocytes Slight Sodium 148 (132-148) mmol/L Potassium 3.5 L (3.6-5.2) mmol/L Chloride 110 H (98-107) mmol/L Carbon Dioxide 24 (22-30) mmol/L Anion Gap 17 (10-20) BUN 45 H (9-20) mg/dL Creatinine 3.3 H (0.8-1.5) mg/dL Est GFR ( Amer) 22 Est GFR (Non-Af Amer) 19 POC Glucose (mg/dL) 129 H (65-110) mg/dL Random Glucose 107 (75-110) mg/dL Calcium 8.2 L (8.6-10.4) mg/dl Phosphorus 5.1 H (2.5-4.5) mg/dL Magnesium 1.9 (1.6-2.3) mg/dL Total Bilirubin 1.2 (0.2-1.3) mg/dL AST 88 H D (17-59) U/L ALT 75 H (21-72) U/L Alkaline Phosphatase 75 (38-126) U/L Total Protein 6.1 L (6.3-8.3) g/dL Albumin 3.8 (3.5-5.0) g/dL Globulin 2.3 (2.2-3.9) gm/dL Albumin/Globulin Ratio 1.6 (1.0-2.1) Free T4 (0.78-2.19) ng/dL Thyroxine (T4) 1.22 L (5.5-11.0) ug/dL 05/14/18 05/14/18 Range/Units 21:16 16:11 WBC (4.8-10.8) K/uL RBC (4.40-5.90) Mil/uL Hgb (12.0-18.0) g/dL Hct (35.0-51.0) % MCV (80.0-94.0) fL MCH (27.0-31.0) pg MCHC (33.0-37.0) g/dL RDW (11.5-14.5) % Plt Count (130-400) K/uL MPV (7.2-11.7) fL Neut % (Auto) (50.0-75.0) % Lymph % (Auto) (20.0-40.0) % [place] % (Auto) (0.0-10.0) % Eos % (Auto) (0.0-4.0) % Baso % (Auto) (0.0-2.0) % Neut # (Auto) (1.8-7.0) K/uL Lymph # (Auto) (1.0-4.3) K/uL [place] # (Auto) (0.0-0.8) K/uL Eos # (Auto) (0.0-0.7) K/uL Baso # (Auto) (0.0-0.2) K/uL Neutrophils % (Manual) (50-75) % Band Neutrophils % (0-2) % Lymphocytes % (Manual) (20-40) % Monocytes % (Manual) (0-10) % Eosinophils % (Manual) (0-4) % Myelocytes % (0-0) % Nucleated RBC % (0-0) % Platelet Estimate (NORMAL) Polychromasia Hypochromasia (manual) Anisocytosis (manual) Tear Drop Cells Ovalocytes Sodium (132-148) mmol/L Potassium (3.6-5.2) mmol/L Chloride (98-107) mmol/L Carbon Dioxide (22-30) mmol/L Anion Gap (10-20) BUN (9-20) mg/dL Creatinine (0.8-1.5) mg/dL Est GFR ( Amer) Est GFR (Non-Af Amer) POC Glucose (mg/dL) 151 H 197 H (65-110) mg/dL Random Glucose (75-110) mg/dL Calcium (8.6-10.4) mg/dl Phosphorus (2.5-4.5) mg/dL Magnesium (1.6-2.3) mg/dL Total Bilirubin (0.2-1.3) mg/dL AST (17-59) U/L ALT (21-72) U/L Alkaline Phosphatase (38-126) U/L Total Protein (6.3-8.3) g/dL Albumin (3.5-5.0) g/dL Globulin (2.2-3.9) gm/dL Albumin/Globulin Ratio (1.0-2.1) Free T4 (0.78-2.19) ng/dL Thyroxine (T4) (5.5-11.0) ug/dL Laboratory Results - last 24 hr 05/14/18 05/14/18 05/15/18 16:11 21:16 01:16 WBC RBC Hgb Hct MCV MCH MCHC RDW Plt Count MPV Neut % (Auto) Lymph % (Auto) [place] % (Auto) Eos % (Auto) Baso % (Auto) Neut # (Auto) Lymph # (Auto) [place] # (Auto) Eos # (Auto) Baso # (Auto) Neutrophils % (Manual) Band Neutrophils % Lymphocytes % (Manual) Monocytes % (Manual) Eosinophils % (Manual) Myelocytes % Nucleated RBC % Platelet Estimate Polychromasia Hypochromasia (manual) Anisocytosis (manual) Tear Drop Cells Ovalocytes Sodium Potassium Chloride Carbon Dioxide Anion Gap BUN Creatinine Est GFR ( Amer) Est GFR (Non-Af Amer) POC Glucose (mg/dL) 197 H 151 H 129 H Random Glucose Calcium Phosphorus Magnesium Total Bilirubin AST ALT Alkaline Phosphatase Total Protein Albumin Globulin Albumin/Globulin Ratio Free T4 Thyroxine (T4) 05/15/18 05/15/18 05/15/18 06:26 06:27 06:27 WBC 12.7 H RBC 3.04 L Hgb 9.1 L Hct 27.8 L MCV 91.3 MCH 29.9 MCHC 32.7 L RDW 24.9 H Plt Count 104 L MPV 8.8 Neut % (Auto) 86.8 H Lymph % (Auto) 7.2 L [place] % (Auto) 5.2 Eos % (Auto) 0.7 Baso % (Auto) 0.1 Neut # (Auto) 11.0 H Lymph # (Auto) 0.9 L [place] # (Auto) 0.7 Eos # (Auto) 0.1 Baso # (Auto) 0.0 Neutrophils % (Manual) 72 Band Neutrophils % 8 H Lymphocytes % (Manual) 11 L Monocytes % (Manual) 6 Eosinophils % (Manual) 1 Myelocytes % 2 H Nucleated RBC % 5 H Platelet Estimate Slightly decreased L Polychromasia Slight Hypochromasia (manual) Slight Anisocytosis (manual) Moderate Tear Drop Cells Slight Ovalocytes Slight Sodium 148 Potassium 3.5 L Chloride 110 H Carbon Dioxide 24 Anion Gap 17 BUN 45 H Creatinine 3.3 H Est GFR ( Amer) 22 Est GFR (Non-Af Amer) 19 POC Glucose (mg/dL) Random Glucose 107 Calcium 8.2 L Phosphorus 5.1 H Magnesium 1.9 Total Bilirubin 1.2 AST 88 H D ALT 75 H Alkaline Phosphatase 75 Total Protein 6.1 L Albumin 3.8 Globulin 2.3 Albumin/Globulin Ratio 1.6 Free T4 0.45 L Thyroxine (T4) 1.22 L 05/15/18 05/15/18 07:23 11:06 WBC RBC Hgb Hct MCV MCH MCHC RDW Plt Count MPV Neut % (Auto) Lymph % (Auto) [place] % (Auto) Eos % (Auto) Baso % (Auto) Neut # (Auto) Lymph # (Auto) [place] # (Auto) Eos # (Auto) Baso # (Auto) Neutrophils % (Manual) Band Neutrophils % Lymphocytes % (Manual) Monocytes % (Manual) Eosinophils % (Manual) Myelocytes % Nucleated RBC % Platelet Estimate Polychromasia Hypochromasia (manual) Anisocytosis (manual) Tear Drop Cells Ovalocytes Sodium Potassium Chloride Carbon Dioxide Anion Gap BUN Creatinine Est GFR ( Amer) Est GFR (Non-Af Amer) POC Glucose (mg/dL) 93 88 Random Glucose Calcium Phosphorus Magnesium Total Bilirubin AST ALT Alkaline Phosphatase Total Protein Albumin Globulin Albumin/Globulin Ratio Free T4 Thyroxine (T4) Critical Care Progress Note - Nutrition Nutrition: Nutrition Category Date Time Status Pureed [Dysphagia/Modified Consistency Diet] [DIET] Diets 05/15/18 Lunch Active Assessment/Plan - Assessment and Plan (Free Text) Plan: Patient is DNR/DNI. Family at bedside. Spoke to the carton forming machine helper. I agree with the current the resident note. Will follow the patient
[2018-05-15] MEDS: Potassium Chloride 20 mEq/15 ml LIQ UD PO ONE ×2 (08:15→08:28)
--- NOTE | 2018-05-15 08:22 | PN ---
DATE: 05/13/2018 LOCATION: In ICU, room 10. SUBJECTIVE: This is a 72-year-old male with bacteremia and currently receiving IV antibiotic management, and also had overt hypothyroidism on admission and received parenteral levothyroxine replacement therapy and tolerated very well. His repeat thyroid studies have improved remarkably with aforementioned modality of treatment and has been switched over starting today, on oral levothyroxine replacement therapy. LABORATORY DATA: His latest chemistries show a BUN of 36, sodium 145, potassium 3.8, chloride 106, CO2 20, glucose 99, and creatinine 3.4. His glucose levels have ranged from 115 to 133 and 160 mg/dL. His latest thyroid studies show a T4 of 3.04, with a TSH of 4.03, and a free T4 of 2. ASSESSMENT AND PLAN: So at this time, we will continue the oral levothyroxine therapy given at 150 mcg p.o. once daily as ordered. We will obtain serial chemistries and supplement accordingly as needed. We will obtain serial thyroid studies and adjust his dose regimen accordingly. Isamar Shane MD
[2018-05-15 08:34] LABS: BANDS 8 % (0-2); EOSINOPHIL 1 % (0-4); LYMPHOCYTE 11 % (20-40); MONOCYTE 6 % (0-10); MYELOCYTE 2 % (0-0); NEUTROPHIL 72 % (50-75); NUCLEATED RED BLOOD CELL 5 % (0-0); TOTAL CELLS COUNTED 100
[2018-05-15 08:35] LABS: ANISOCYTOSIS MODERATE; HYPOCHROMIC SLIGHT; PLATELET ESTIMATE SLIGHTLY DECREASED (NORMAL); POLYCHROMIC SLIGHT
[2018-05-15 08:36] LABS: OVALOCYTES SLIGHT; TEARDROP CELLS SLIGHT
[2018-05-15] MEDS: diltiaZEM 180 mg/24 Hours CD Cap PO SCH (10:31)
[2018-05-15] MEDS: Meropenem 500 MG in Sodium Chloride 0.9% 100 ML IVPB SCH ×2 (10:32→22:29)
[2018-05-15] MEDS: Vitamins A & D Oint UD Foilpak TOP SCH ×2 (10:34→17:53)
[2018-05-15] MEDS: Collagenase 250 Units/gm Ointment(30 gm) TOP SCH (10:41)
--- NOTE | 2018-05-15 11:34 | CP.PCM.PN ---
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 Can try "slower" dialysis- eg "SLED" type of HD- needs to be modified due to nursing concerns Creat increased; need to recheck tacro levels- on diltiazem now; can empirically lower tacro dose Objective - Vital Signs/Intake and Output Vital Signs (last 24 hours): Temp Pulse Resp BP Pulse Ox 97.6 F 148 H 29 H 144/96 H 99 05/15/18 08:00 05/15/18 09:00 05/15/18 09:00 05/15/18 09:03 05/15/18 09:00 Intake and Output: 05/15/18 05/15/18 06:59 18:59 Intake Total 200 50 Output Total 100 Balance 100 50 - Medications Medications: Current Medications Albumin Human (Albumin Human 25% (12.5 Gm/50 Ml)) 37.5 gm IV DAILY PRN PRN Reason: PER HD IF SBP IS LESS THAN 90 Albuterol/Ipratropium (Duoneb 3 Mg/0.5 Mg (3 Ml) Ud) 3 ml INH RQ4 [facility] Last Admin: 05/15/18 07:20 Dose: 3 ml Bumetanide (Bumex) 3 mg IVP ONCE [facility] Last Admin: 05/13/18 10:35 Dose: 3 mg Calcium Acetate (Phoslo) 1,334 mg PO TIDCC [facility] Last Admin: 05/15/18 08:27 Dose: 1,334 mg Collagenase (Santyl) 0 gm TOP DAILY [facility] Last Admin: 05/15/18 10:41 Dose: 1 oin Cyanocobalamin (Vitamin B12 1000 Mcg Tab) 1,000 mcg PO DAILY [facility] Last Admin: 05/15/18 10:35 Dose: 1,000 mcg Dextrose (Dextrose 50% Inj) 0 ml IV STAT PRN; Protocol PRN Reason: Hypoglycemia Protocol Dextrose (Glutose 15) 0 gm PO ONCE PRN; Protocol PRN Reason: Hypoglycemia Protocol Diltiazem HCl (Cardizem Cd) 180 mg PO DAILY [facility] Last Admin: 05/15/18 10:31 Dose: 180 mg Folic Acid (Folic Acid) 1 mg PO DAILY [facility] Last Admin: 05/15/18 10:31 Dose: 1 mg Glucagon (Glucagen Diagnostic Kit) 0 mg IM STAT PRN; Protocol PRN Reason: Hypoglycemia Protocol Heparin Sodium (Porcine) (Heparin) 5,000 units SC Q12 [facility] Last Admin: 05/15/18 10:32 Dose: 5,000 units Dextrose (Dextrose 5% In Water 1000 Ml) 1,000 mls @ 0 mls/hr IV .Q0M PRN; Protocol PRN Reason: Hypoglycemia Protocol Daptomycin 300 mg/ Sodium (Chloride) 100 mls @ 200 mls/hr IV Q48H [facility] Last Admin: 05/14/18 17:30 Dose: 200 mls/hr Micafungin Sodium 100 mg/ (Sodium Chloride) 100 mls @ 100 mls/hr IV Q24H [facility]; Protocol Last Admin: 05/14/18 20:35 Dose: 100 mls/hr Phenylephrine HCl 30 mg/ (Dextrose) 253 mls @ 20.24 mls/hr IV .[id number] PRN; Protocol PRN Reason: TITRATE PER MD ORDER Last Titration: 05/13/18 18:30 Dose: 0 mcg/min, 0 mls/hr Meropenem 500 mg/ Sodium (Chloride) 100 mls @ 100 mls/hr IVPB Q12H [facility]; Protocol Last Admin: 05/15/18 10:32 Dose: 100 mls/hr Potassium Chloride (Potassium Chloride 20 Meq/100 Ml) 20 meq in 100 mls @ 50 mls/hr IVPB Q2H [facility] Stop: 05/15/18 13:29 Last Admin: 05/15/18 09:07 Dose: 50 mls/hr Insulin Human Regular (Novolin R) 0 unit SC ACHS [facility]; Protocol Last Admin: 05/15/18 07:30 Dose: Not Given Isoniazid (Niazid) 300 mg PO DAILY [facility]; Protocol Lactic Acid (Lac-Hydrin 12% Lotion (225 G)) 0 gm EXT Q8 [facility] Last Admin: 05/15/18 06:17 Dose: 1 applic Levothyroxine Sodium (Synthroid) 150 mcg PO DAILY@0630 [facility] Last Admin: 05/15/18 06:19 Dose: 150 mcg Multivitamins/Vitamin C (Multi-Delyn Liquid) 5 ml PO DAILY [facility] Last Admin: 05/14/18 09:05 Dose: 5 ml Pantoprazole Sodium (Protonix Inj) 40 mg IVP Q12H [facility] Last Admin: 05/15/18 08:28 Dose: 40 mg Pyridoxine HCl (Vitamin B6 50 Mg Tab) 50 mg PO DAILY [facility] Last Admin: 05/15/18 10:36 Dose: 50 mg Rifampin (Rifampin Cap) 600 mg PO DAILY [facility]; Protocol Tacrolimus (Prograf) 5 mg PO BID [facility] Last Admin: 05/15/18 10:34 Dose: 5 mg Thiamine HCl (Vitamin B1 Inj) 200 mg IV Q8H [facility] Last Admin: 05/15/18 10:34 Dose: 200 mg Verapamil HCl (Verapamil Inj) 2.5 mg IVP Q6H PRN PRN Reason: Heart rate Last Admin: 05/15/18 03:35 Dose: 2.5 mg Vitamin A (Vitamin A & D Oint Ud Foilpak) 0 ea TOP BID [facility] Last Admin: 05/15/18 10:34 Dose: 1 ea - Labs Labs: 05/15/18 06:26 05/15/18 06:27 PT 14.4 SECONDS (9.7-12.2) H 05/13/18 08:31 INR 1.3 05/13/18 08:31 APTT 37 SECONDS (21-34) H 05/13/18 08:31 - Constitutional Appears: In Acute Distress, Confused, Chronically Ill - Head Exam Head Exam: ATRAUMATIC, NORMAL INSPECTION - Eye Exam Eye Exam: EOMI, Normal appearance - Neck Exam Neck Exam: Normal Inspection. absent: Tenderness - Respiratory Exam Respiratory Exam: Rhonchi, Wheezes, Respiratory Distress - Cardiovascular Exam Cardiovascular Exam: Tachycardia, Irregular Rhythm - GI/Abdominal Exam GI & Abdominal Exam: Soft. 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
[2018-05-15] MEDS: Multiple Vitamins Tab PO SCH (13:09)
--- NOTE | 2018-05-15 14:56 | CP.PCM.PN ---
Subjective - Date & Time of Evaluation Date of Evaluation: 05/15/18 Time of Evaluation: 14:52 - Subjective Subjective: Patient is on Bi Pap, eyes closed, did not respond to verbal/ tactile stimuli. RR 29, FiO2 50%. HR 148. Patient is lethargic. Patient is not taking PO due to lethargy and SOB. Doctor Ghanshyam is applying more gentle form of HD. BUN 45, Box Machine Operator 3.3. Per family ( Son Rashad) patient changed his mind regarding HD as he " was afraid of hospice". I discussed patient's condition with the son. Objective - Vital Signs/Intake and Output Vital Signs (last 24 hours): Temp Pulse Resp BP Pulse Ox 97.6 F 148 H 29 H 144/96 H 99 05/15/18 08:00 05/15/18 14:01 05/15/18 09:00 05/15/18 09:03 05/15/18 09:00 Intake and Output: 05/15/18 05/15/18 06:59 18:59 Intake Total 200 50 Output Total 100 Balance 100 50 - Medications Medications: Current Medications Albumin Human (Albumin Human 25% (12.5 Gm/50 Ml)) 37.5 gm IV DAILY PRN PRN Reason: PER HD IF SBP IS LESS THAN 90 Albuterol/Ipratropium (Duoneb 3 Mg/0.5 Mg (3 Ml) Ud) 3 ml INH RQ4 [facility] Last Admin: 05/15/18 11:48 Dose: 3 ml Calcium Acetate (Phoslo) 1,334 mg PO TIDCC [facility] Last Admin: 05/15/18 13:02 Dose: 1,334 mg Collagenase (Santyl) 0 gm TOP DAILY [facility] Last Admin: 05/15/18 10:41 Dose: 1 oin Cyanocobalamin (Vitamin B12 1000 Mcg Tab) 1,000 mcg PO DAILY [facility] Last Admin: 05/15/18 10:35 Dose: 1,000 mcg Dextrose (Dextrose 50% Inj) 0 ml IV STAT PRN; Protocol PRN Reason: Hypoglycemia Protocol Dextrose (Glutose 15) 0 gm PO ONCE PRN; Protocol PRN Reason: Hypoglycemia Protocol Diltiazem HCl (Cardizem Cd) 180 mg PO DAILY [facility] Last Admin: 05/15/18 10:31 Dose: 180 mg Folic Acid (Folic Acid) 1 mg PO DAILY [facility] Last Admin: 05/15/18 10:31 Dose: 1 mg Glucagon (Glucagen Diagnostic Kit) 0 mg IM STAT PRN; Protocol PRN Reason: Hypoglycemia Protocol Heparin Sodium (Porcine) (Heparin) 5,000 units SC Q12 [facility] Last Admin: 05/15/18 10:32 Dose: 5,000 units Dextrose (Dextrose 5% In Water 1000 Ml) 1,000 mls @ 0 mls/hr IV .Q0M PRN; Protocol PRN Reason: Hypoglycemia Protocol Daptomycin 300 mg/ Sodium (Chloride) 100 mls @ 200 mls/hr IV Q48H [facility] Last Admin: 05/14/18 17:30 Dose: 200 mls/hr Micafungin Sodium 100 mg/ (Sodium Chloride) 100 mls @ 100 mls/hr IV Q24H [facility]; Protocol Last Admin: 05/14/18 20:35 Dose: 100 mls/hr Phenylephrine HCl 30 mg/ (Dextrose) 253 mls @ 20.24 mls/hr IV .[id number] PRN; Protocol PRN Reason: TITRATE PER MD ORDER Last Titration: 05/13/18 18:30 Dose: 0 mcg/min, 0 mls/hr Meropenem 500 mg/ Sodium (Chloride) 100 mls @ 100 mls/hr IVPB Q12H [facility]; Protocol Last Admin: 05/15/18 10:32 Dose: 100 mls/hr Insulin Human Regular (Novolin R) 0 unit SC ACHS [facility]; Protocol Last Admin: 05/15/18 11:30 Dose: Not Given Isoniazid (Niazid) 300 mg PO DAILY [facility]; Protocol Last Admin: 05/15/18 13:05 Dose: 300 mg Lactic Acid (Lac-Hydrin 12% Lotion (225 G)) 0 gm EXT Q8 [facility] Last Admin: 05/15/18 13:11 Dose: 1 applic Levothyroxine Sodium (Synthroid) 150 mcg PO DAILY@0630 [facility] Last Admin: 05/15/18 06:19 Dose: 150 mcg Multivitamins (Hexavitamin) 1 tab PO DAILY [facility] Last Admin: 05/15/18 13:09 Dose: 1 tab Pantoprazole Sodium (Protonix Inj) 40 mg IVP Q12H [facility] Last Admin: 05/15/18 08:28 Dose: 40 mg Pyridoxine HCl (Vitamin B6 50 Mg Tab) 50 mg PO DAILY [facility] Last Admin: 05/15/18 10:36 Dose: 50 mg Rifampin (Rifampin Cap) 600 mg PO DAILY [facility]; Protocol Last Admin: 05/15/18 13:03 Dose: 600 mg Tacrolimus (Prograf Cap) 4 mg PO BID [facility] Thiamine HCl (Vitamin B1 Inj) 200 mg IV Q8H [facility] Last Admin: 05/15/18 10:34 Dose: 200 mg Verapamil HCl (Verapamil Inj) 2.5 mg IVP Q6H PRN PRN Reason: Heart rate Last Admin: 05/15/18 03:35 Dose: 2.5 mg Vitamin A (Vitamin A & D Oint Ud Foilpak) 0 ea TOP BID [facility] Last Admin: 05/15/18 10:34 Dose: 1 ea - Labs Labs: 05/15/18 06:26 05/15/18 06:27 PT 14.4 SECONDS (9.7-12.2) H 05/13/18 08:31 INR 1.3 05/13/18 08:31 APTT 37 SECONDS (21-34) H 05/13/18 08:31 - Constitutional Appears: In Acute Distress, Chronically Ill - Head Exam Head Exam: ATRAUMATIC, NORMAL INSPECTION, NORMOCEPHALIC - Eye Exam Eye Exam: EOMI, Normal appearance, PERRL Pupil Exam: NORMAL ACCOMODATION, PERRL - ENT Exam ENT Exam: Mucous Membranes Moist, Normal Exam - Neck Exam Neck Exam: Normal Inspection - Respiratory Exam Respiratory Exam: Decreased Breath Sounds, Rhonchi Additional comments: tachypnea - Cardiovascular Exam Cardiovascular Exam: Tachycardia, Irregular Rhythm - GI/Abdominal Exam GI & Abdominal Exam: Diminished Bowel Sounds - Rectal Exam Rectal Exam: Deferred - Exam Additional comments: Oliguria 100 cc - Extremities Exam Extremities Exam: Pedal Edema Additional comments: swelling to upper extremities - Back Exam Back Exam: NORMAL INSPECTION - Neurological Exam Neurological Exam: Altered Neuro motor strength exam: Left Upper Extremity: 0, Right Upper Extremity: 0, Left Lower Extremity: 0, Right Lower Extremity: 0 - Psychiatric Exam Psychiatric exam: Depressed, Flat Affect - Skin Skin Exam: Diaphoretic, Erythema, Mottled, Urticaria, Vesicles Assessment and Plan - Assessment and Plan (Free Text) Assessment: Patient examined in bed, very lethargic, does not respond to verbal or tactile stimuli with BiPap on at 50 % FiO2. Breathing is fast and shallow, RR 29. Patient does not take PO due to his SOB and lethargy. Per patient's son, patient changed his mind against HD as he was " afraid of hospice". Doctor Ghanshyam is applying shorter lasting and gentle form of HD. BP 144/96, HR 148. Oliguria , 100cc/24 hr urine output. BUN 45, Box Machine Operator 3.3. I reviewed patient's condition once again with patient's son Rashad and offered my concerns regarding poor quality of life and poor prognosis of his father. I further discussed his father's inability to tolerate PO intake what will further lead him to malnutrition and electrolyte imbalance. I elicited his expectations and goals of care. The son Rashad said that patient's sisters and other family members felt that the patient should be given all chances in recovery. The son is emphisizing that " he is the only child " and is difficult for him to let his father go. I remained him of his father's wishes to be left alone and to stop all further HD as he was tired, and of obligation to respect patient's wishes when it comes to end of life care. In this case there is no need for decision to be made as patient was able to voice his wishes last Tuesday, what was witnessed by the son, the , the nurse and myself. Impression * Patient looks worse than he was on Tuesday , the last time I saw him * Patient is very lethargic and is not interacting * BiPap dependent * I feel that patient's family had influence on his wishes against HD what resulted in further suffering of this very sick man, when meaningful recovery is not expected * Anticipatory anxiety and grieving among the family especially the son Suggestions * Promote comfort, turn and reposition * Continue BiPap * Attempt PO feedings if patient gets more alert. Aspiration precautions * Update family daily on condition of this patient * Offer emotional support to a family Palliative care will continue to support the family during this very difficult time for them. Advance care planing 30 min
[2018-05-15] MEDS: Micafungin 100 MG in Sodium Chloride 0.9% 100 ML IV SCH (20:30)
[2018-05-15] MEDS: Dextrose 50% SYRINGE Inj (50 ml) IV PRN (21:25)
--- NOTE | 2018-05-15 22:57 | CP.PCM.PN ---
Subjective - Date & Time of Evaluation Date of Evaluation: 05/15/18 Time of Evaluation: 21:00 - Subjective Subjective: Patient still SOB. Just finished HD. Telemetry shows atrial fib with RVR. Objective - Vital Signs/Intake and Output Vital Signs (last 24 hours): Temp Pulse Resp BP Pulse Ox 97.5 F L 117 H 32 H 124/65 100 05/15/18 16:00 05/15/18 22:42 05/15/18 22:08 05/15/18 22:08 05/15/18 22:08 Intake and Output: 05/15/18 05/16/18 18:59 06:59 Intake Total 900 400 Output Total 100 1000 Balance 800 -600 - Medications Medications: Current Medications Acetaminophen (Tylenol 325mg Tab) 650 mg PO STAT STA Stop: 05/15/18 22:55 Albumin Human (Albumin Human 25% (12.5 Gm/50 Ml)) 37.5 gm IV DAILY PRN PRN Reason: PER HD IF SBP IS LESS THAN 90 Albuterol/Ipratropium (Duoneb 3 Mg/0.5 Mg (3 Ml) Ud) 3 ml INH RQ4 [facility] Last Admin: 05/15/18 19:36 Dose: Not Given Calcium Acetate (Phoslo) 1,334 mg PO TIDCC [facility] Last Admin: 05/15/18 17:53 Dose: 1,334 mg Collagenase (Santyl) 0 gm TOP DAILY [facility] Last Admin: 05/15/18 10:41 Dose: 1 oin Cyanocobalamin (Vitamin B12 1000 Mcg Tab) 1,000 mcg PO DAILY [facility] Last Admin: 05/15/18 10:35 Dose: 1,000 mcg Dextrose (Dextrose 50% Inj) 0 ml IV STAT PRN; Protocol PRN Reason: Hypoglycemia Protocol Last Admin: 05/15/18 21:25 Dose: 50 ml Dextrose (Glutose 15) 0 gm PO ONCE PRN; Protocol PRN Reason: Hypoglycemia Protocol Diltiazem HCl (Cardizem Cd) 180 mg PO DAILY [facility] Last Admin: 05/15/18 10:31 Dose: 180 mg Folic Acid (Folic Acid) 1 mg PO DAILY [facility] Last Admin: 05/15/18 10:31 Dose: 1 mg Glucagon (Glucagen Diagnostic Kit) 0 mg IM STAT PRN; Protocol PRN Reason: Hypoglycemia Protocol Heparin Sodium (Porcine) (Heparin) 5,000 units SC Q12 [facility] Last Admin: 05/15/18 22:30 Dose: 5,000 units Daptomycin 300 mg/ Sodium (Chloride) 100 mls @ 200 mls/hr IV Q48H [facility] Last Admin: 05/14/18 17:30 Dose: 200 mls/hr Micafungin Sodium 100 mg/ (Sodium Chloride) 100 mls @ 100 mls/hr IV Q24H [facility]; Protocol Last Admin: 05/15/18 20:30 Dose: 100 mls/hr Phenylephrine HCl 30 mg/ (Dextrose) 253 mls @ 20.24 mls/hr IV .[id number] PRN; Protocol PRN Reason: TITRATE PER MD ORDER Last Titration: 05/13/18 18:30 Dose: 0 mcg/min, 0 mls/hr Meropenem 500 mg/ Sodium (Chloride) 100 mls @ 100 mls/hr IVPB Q12H [facility]; Protocol Last Admin: 05/15/18 22:29 Dose: 100 mls/hr Insulin Human Regular (Novolin R) 0 unit SC ACHS [facility]; Protocol Last Admin: 05/15/18 21:16 Dose: Not Given Isoniazid (Niazid) 300 mg PO DAILY [facility]; Protocol Last Admin: 05/15/18 13:05 Dose: 300 mg Lactic Acid (Lac-Hydrin 12% Lotion (225 G)) 0 gm EXT Q8 [facility] Last Admin: 05/15/18 22:29 Dose: 1 applic Levothyroxine Sodium (Synthroid) 200 mcg PO DAILY@0630 [facility] Multivitamins (Hexavitamin) 1 tab PO DAILY [facility] Last Admin: 05/15/18 13:09 Dose: 1 tab Pantoprazole Sodium (Protonix Inj) 40 mg IVP Q12H [facility] Last Admin: 05/15/18 20:30 Dose: 40 mg Pyridoxine HCl (Vitamin B6 50 Mg Tab) 50 mg PO DAILY [facility] Last Admin: 05/15/18 10:36 Dose: 50 mg Rifampin (Rifampin Cap) 600 mg PO DAILY [facility]; Protocol Last Admin: 05/15/18 13:03 Dose: 600 mg Tacrolimus (Prograf Cap) 4 mg PO BID [facility] Last Admin: 05/15/18 17:54 Dose: 4 mg Thiamine HCl (Vitamin B1 Inj) 200 mg IV Q8H [facility] Last Admin: 05/15/18 18:00 Dose: 200 mg Verapamil HCl (Verapamil Inj) 2.5 mg IVP Q6H PRN PRN Reason: Heart rate Last Admin: 05/15/18 21:00 Dose: 2.5 mg Vitamin A (Vitamin A & D Oint Ud Foilpak) 0 ea TOP BID [facility] Last Admin: 05/15/18 17:53 Dose: 1 ea - Labs Labs: 05/15/18 06:26 05/15/18 06:27 PT 14.4 SECONDS (9.7-12.2) H 05/13/18 08:31 INR 1.3 05/13/18 08:31 APTT 37 SECONDS (21-34) H 05/13/18 08:31 - Constitutional Appears: Cachectic, Chronically Ill - Head Exam Head Exam: NORMAL INSPECTION - Eye Exam Eye Exam: Normal appearance - ENT Exam ENT Exam: Normal Exam - Neck Exam Neck Exam: Normal Inspection - Respiratory Exam Respiratory Exam: Rhonchi Additional comments: Rhonchi bilaterally. - Cardiovascular Exam Cardiovascular Exam: Tachycardia, Irregular Rhythm - GI/Abdominal Exam GI & Abdominal Exam: Soft, Normal Bowel Sounds - Rectal Exam Rectal Exam: Deferred - Extremities Exam Extremities Exam: Pedal Edema - Back Exam Back Exam: NORMAL INSPECTION - Neurological Exam Neurological Exam: Awake, Oriented x3 - Psychiatric Exam Psychiatric exam: Anxious - Skin Additional comments: Skin desquamation. Assessment and Plan (1) Hypothermia Status: Resolved (2) Hypoglycemia Status: Resolved (3) Hypotension Status: Resolved (4) Acute confusion Status: Resolved (5) Exfoliative dermatitis Status: Resolved (6) Acute on chronic diastolic CHF (congestive heart failure) Assessment & Plan: Needs more HD Status: Acute (7) YVAN (acute kidney injury) Assessment & Plan: HD as per Nephrologists. Status: Acute
--- NOTE | 2018-05-16 00:02 | PN ---
DATE: 05/15/2018 LOCATION: In ICU, room 10. SUBJECTIVE: This is a 72-year-old male with recent overt hypothyroidism noted historically, clinically and biochemically and is now being followed closely for metabolic management. His glycemic levels are also near optimal at this time, ranging from 88 to 93 and 129 mg/dL. LABORATORY DATA: His latest chemistry showed a BUN of 45, sodium 148, potassium 3.5, chloride 110, CO2 of 24, glucose 107 and creatinine 3.3. His TSH levels are pending at this time, but the repeat total T4 is 1.22 with a free T4 of 0.45 which are both low as noted. PLAN: So at this time, we will titrate once again his levothyroxine to a higher dose of 200 mcg p.o. once daily in the morning as ordered. We will obtain serial chemistries and supplement accordingly as needed. We will follow. Isamar Shane MD
[2018-05-16] MEDS: Albuterol-Ipratrop 3 mg / 0.5 (3 ml) UD INH SCH ×6 (01:20→19:56)
[2018-05-16] MEDS: Thiamine 100 mg/ml Inj IV SCH ×3 (02:18→18:08)
[2018-05-16 05:09] LABS: HEMOGLOBIN 9.6 g/dL (12.0-18.0); MEAN CELL VOLUME 91.5 fL (80.0-94.0); MEAN CORPUSCULAR HEMOGLOBIN 30.1 pg (27.0-31.0); MEAN CORPUSCULAR HGB CONC 32.9 g/dL (33.0-37.0); PLATELET COUNT 74 K/uL (130-400); RED CELL DISTRIBUTION WIDTH 24.9 % (11.5-14.5)
[2018-05-16 05:24] LABS: INR 1.2; PROTHROMBIN TIME 13.3 SECONDS (9.7-12.2)
[2018-05-16] MEDS: Ammonium Lactate 12% Lotion (225 g) EXT SCH ×3 (05:31→22:00)
[2018-05-16 05:38] LABS: ALB/GLOB RATIO 1.3 (1.0-2.1); ALBUMIN 3.2 g/dL (3.5-5.0); CALCIUM 8.5 mg/dl (8.6-10.4)
[2018-05-16] MEDS ORDERED: Dextrose 50% SYRINGE Inj (50 ml) ONE ×2 (06:21→21:24)
[2018-05-16 06:30] LABS: ANISOCYTOSIS MODERATE; BANDS 4 % (0-2); EOSINOPHIL 3 % (0-4); LYMPHOCYTE 10 % (20-40); MONOCYTE 5 % (0-10); NEUTROPHIL 77 % (50-75); NUCLEATED RED BLOOD CELL 2 % (0-0); PLATELET ESTIMATE DECREASED (NORMAL); REACTIVE LYMPHOCYTES 1 % (0-0); TOTAL CELLS COUNTED 100
[2018-05-16] MEDS ORDERED: Levothyroxine 200 MCG TAB PO SCH (06:30)
[2018-05-16 06:31] LABS: POLYCHROMIC MODERATE; SCHISTOCYTES SLIGHT
[2018-05-16 06:32] LABS: OVALOCYTES SLIGHT; TEARDROP CELLS SLIGHT
[2018-05-16 06:35] LABS: TOXIC GRANULATION PRESENT
[2018-05-16] MEDS: Dextrose 50% SYRINGE Inj (50 ml) IV PRN ×2 (06:37→21:23)
[2018-05-16] MEDS: (Novolin R) Insulin Human Regular 100 units/ml vial SC SCH ×4 (07:30→21:51)
--- NOTE | 2018-05-16 07:43 | CP.CCUPN ---
<Natasha Khan - Last Filed: 05/16/18 11:05> CCU Subjective - Physician Review Events Since Last Encounter (Free Text): 05/16/18 07:41 no over night events, patient still on BiPAP Subjective (Free Text): 05/16/18 07:42 Patient was seen and examined this morning. He is on BiPAP. He can follow simple commands. 05/16/18 11:05 Discussion with family. They wish to keep patient DNR/DNI but continue active treatment, including HD, as per patient's wishes. Critical Care Time Spent (in minutes): 35 CCU Objective - Vital Signs / Intake & Output Vital Signs (Last 4 hours): Vital Signs Temp Pulse Resp BP Pulse Ox 05/16/18 06:09 120 H 22 122/56 L 92 L 05/16/18 06:06 108 H 05/16/18 06:00 116 H 28 H 93 L 05/16/18 05:38 118 H 24 115/64 91 L 05/16/18 05:08 105 H 24 127/61 93 L 05/16/18 05:00 117 H 24 91 L 05/16/18 04:38 108 H 25 H 120/66 95 05/16/18 04:08 116 H 23 113/72 86 L 05/16/18 04:00 97.8 F 140 H 25 H 89 L Intake and Output (Last 8hrs): Intake & Output 05/15/18 05/16/18 05/16/18 22:59 06:59 14:59 Intake Total 400 Output Total 1000 Balance -600 Weight 123 lb 1.6 oz Intake: Intake, IV Amount 200 Right Femoral Side-Port 200 Oral 200 Output: Urine 0 Straight 0 Other 1000 Other: # Voids Urine, Voided 1 # Bowel Movements 1 0 - Physical Exam Head: Positive for: Atraumatic, Normocephalic Pupils: Positive for: PERRL Extroacular Muscles: Positive for: EOMI Conjunctiva: Positive for: Normal Mouth: Positive for: Dry Pharnyx: Negative for: ERYTHEMA Respiratory/Chest: Positive for: Other (BiPAP). Negative for: Respiratory Distress, Accessory Muscle Use Cardiovascular: Positive for: Normal S1, S2, Irregular Rhythm (Afib RVR), Tachycardic, Other (trialysis cath in R femoral). Negative for: Murmurs Abdomen: Positive for: Normal Bowel Sounds. Negative for: Tenderness, Distention, Peritoneal Signs Upper Extremity: Positive for: Swelling, Erythema, Neurovascularly Intact, Other (b/l skin sloughing) Lower Extremity: Positive for: Erythema, Neurovascularly Intact Neurological: Positive for: GCS=15, CN II-XII Intact Psychiatric: Positive for: Alert, Oriented x 3. Negative for: Agitated - Medications Active Medications: Active Medications Generic Name Dose Route Start Last Admin Trade Name Freq PRN Reason Stop Dose Admin Albumin Human 37.5 gm 05/12/18 16:00 Albumin Human 25% (12.5 Gm/50 Ml) IV DAILY PRN PER HD IF SBP IS LESS THAN 90 Albuterol/Ipratropium 3 ml 05/12/18 19:00 05/16/18 04:28 Duoneb 3 Mg/0.5 Mg (3 Ml) Ud INH 3 ml RQ4 FAHEEM Administration Calcium Acetate 1,334 mg 05/12/18 13:21 05/15/18 17:53 Phoslo PO 1,334 mg TIDCC FAHEEM Administration Collagenase 0 gm 05/11/18 11:00 05/15/18 10:41 Santyl TOP 1 oin DAILY FAHEEM Administration Cyanocobalamin 1,000 mcg 05/12/18 10:00 05/15/18 10:35 Vitamin B12 1000 Mcg Tab PO 1,000 mcg DAILY FAHEEM Administration Dextrose 0 ml 05/08/18 17:53 05/16/18 06:37 Dextrose 50% Inj IV 50 ml STAT PRN Administration Hypoglycemia Protocol Protocol Dextrose 0 gm 05/08/18 17:53 Glutose 15 PO ONCE PRN Hypoglycemia Protocol Protocol Diltiazem HCl 180 mg 05/14/18 10:00 05/15/18 10:31 Cardizem Cd PO 180 mg DAILY FAHEEM Administration Folic Acid 1 mg 05/09/18 10:00 05/15/18 10:31 Folic Acid PO 1 mg DAILY FAHEEM Administration Glucagon 0 mg 05/08/18 17:53 Glucagen Diagnostic Kit IM STAT PRN Hypoglycemia Protocol Protocol Heparin Sodium (Porcine) 5,000 units 05/14/18 11:00 05/15/18 22:30 Heparin SC 5,000 units Q12 FAHEEM Administration Daptomycin 300 mg/ Sodium 100 mls @ 200 mls/hr 05/10/18 18:30 05/14/18 17:30 Chloride IV 200 mls/hr Q48H FAHEEM Administration Micafungin Sodium 100 mg/ 100 mls @ 100 mls/hr 05/10/18 20:00 05/15/18 20:30 Sodium Chloride IV 100 mls/hr Q24H FAHEEM Administration Protocol Phenylephrine HCl 30 mg/ 253 mls @ 20.24 mls/hr 05/13/18 17:00 05/13/18 18:30 Dextrose IV 0 mcg/min .[id number] PRN 0 mls/hr TITRATE PER MD ORDER Titration Protocol 40 MCG/MIN Meropenem 500 mg/ Sodium 100 mls @ 100 mls/hr 05/14/18 23:00 05/15/18 22:29 Chloride IVPB 100 mls/hr Q12H FAHEEM Administration Protocol Insulin Human Regular 0 unit 05/09/18 16:30 05/15/18 21:16 Novolin R SC Not Given ACHS FAHEEM Protocol Isoniazid 300 mg 05/15/18 12:00 05/15/18 13:05 Niazid PO 300 mg DAILY FAHEEM Administration Protocol Lactic Acid 0 gm 05/12/18 07:00 05/16/18 05:31 Lac-Hydrin 12% Lotion (225 G) EXT 1 applic Q8 FAHEEM Administration Levothyroxine Sodium 200 mcg 05/16/18 06:30 05/16/18 05:30 Synthroid PO 200 mcg DAILY@0630 FAHEEM Administration Multivitamins 1 tab 05/15/18 13:00 05/15/18 13:09 Hexavitamin PO 1 tab DAILY FAHEEM Administration Pantoprazole Sodium 40 mg 05/12/18 21:00 05/15/18 20:30 Protonix Inj IVP 40 mg Q12H FAHEEM Administration Pyridoxine HCl 50 mg 05/09/18 10:00 05/15/18 10:36 Vitamin B6 50 Mg Tab PO 50 mg DAILY FAHEEM Administration Rifampin 600 mg 05/15/18 12:00 05/15/18 13:03 Rifampin Cap PO 600 mg DAILY FAHEEM Administration Protocol Tacrolimus 4 mg 05/15/18 11:35 05/15/18 17:54 Prograf Cap PO 4 mg BID FAHEEM Administration Thiamine HCl 200 mg 05/11/18 09:45 05/16/18 02:18 Vitamin B1 Inj IV 200 mg Q8H FAHEEM Administration Verapamil HCl 2.5 mg 05/13/18 16:52 05/15/18 21:00 Verapamil Inj IVP 2.5 mg Q6H PRN Administration Heart rate Vitamin A 0 ea 05/11/18 18:00 05/15/18 17:53 Vitamin A & D Oint Ud Foilpak TOP 1 ea BID FAHEEM Administration - Patient Studies Lab Studies: Lab Studies 05/16/18 05/16/18 05/16/18 Range/Units 06:18 05:05 05:05 WBC 12.0 H (4.8-10.8) K/uL RBC 3.20 L (4.40-5.90) Mil/uL Hgb 9.6 L (12.0-18.0) g/dL Hct 29.3 L (35.0-51.0) % MCV 91.5 (80.0-94.0) fL MCH 30.1 (27.0-31.0) pg MCHC 32.9 L (33.0-37.0) g/dL RDW 24.9 H (11.5-14.5) % Plt Count 74 L D (130-400) K/uL MPV 9.0 (7.2-11.7) fL Neutrophils % (Manual) 77 H (50-75) % Band Neutrophils % 4 H (0-2) % Lymphocytes % (Manual) 10 L (20-40) % Reactive Lymphs % 1 H (0-0) % Monocytes % (Manual) 5 (0-10) % Eosinophils % (Manual) 3 (0-4) % Myelocytes % (0-0) % Nucleated RBC % 2 H (0-0) % Toxic Granulation Present Platelet Estimate Decreased L (NORMAL) Polychromasia Moderate Hypochromasia (manual) Basophilic Stippling Slight Anisocytosis (manual) Moderate Macrocytosis (manual) Slight Tear Drop Cells Slight Ovalocytes Slight Schistocytes Slight PT 13.3 H (9.7-12.2) SECONDS INR 1.2 APTT 41 H (21-34) SECONDS Sodium (132-148) mmol/L Potassium (3.6-5.2) mmol/L Chloride (98-107) mmol/L Carbon Dioxide (22-30) mmol/L Anion Gap (10-20) BUN (9-20) mg/dL Creatinine (0.8-1.5) mg/dL Est GFR ( Amer) Est GFR (Non-Af Amer) POC Glucose (mg/dL) 58 L (65-110) mg/dL Random Glucose (75-110) mg/dL Calcium (8.6-10.4) mg/dl Phosphorus (2.5-4.5) mg/dL Magnesium (1.6-2.3) mg/dL Total Bilirubin (0.2-1.3) mg/dL AST (17-59) U/L ALT (21-72) U/L Alkaline Phosphatase (38-126) U/L Total Protein (6.3-8.3) g/dL Albumin (3.5-5.0) g/dL Globulin (2.2-3.9) gm/dL Albumin/Globulin Ratio (1.0-2.1) Tacrolimus (LC/MS/MS) (5.0-20.0) mcg/L 05/16/18 05/15/18 05/15/18 Range/Units 05:05 21:37 21:17 WBC (4.8-10.8) K/uL RBC (4.40-5.90) Mil/uL Hgb (12.0-18.0) g/dL Hct (35.0-51.0) % MCV (80.0-94.0) fL MCH (27.0-31.0) pg MCHC (33.0-37.0) g/dL RDW (11.5-14.5) % Plt Count (130-400) K/uL MPV (7.2-11.7) fL Neutrophils % (Manual) (50-75) % Band Neutrophils % (0-2) % Lymphocytes % (Manual) (20-40) % Reactive Lymphs % (0-0) % Monocytes % (Manual) (0-10) % Eosinophils % (Manual) (0-4) % Myelocytes % (0-0) % Nucleated RBC % (0-0) % Toxic Granulation Platelet Estimate (NORMAL) Polychromasia Hypochromasia (manual) Basophilic Stippling Anisocytosis (manual) Macrocytosis (manual) Tear Drop Cells Ovalocytes Schistocytes PT (9.7-12.2) SECONDS INR APTT (21-34) SECONDS Sodium 146 (132-148) mmol/L Potassium 4.2 (3.6-5.2) mmol/L Chloride 110 H (98-107) mmol/L Carbon Dioxide 27 (22-30) mmol/L Anion Gap 14 (10-20) BUN 28 H (9-20) mg/dL Creatinine 2.2 H (0.8-1.5) mg/dL Est GFR ( Amer) 36 Est GFR (Non-Af Amer) 30 POC Glucose (mg/dL) 97 57 L (65-110) mg/dL Random Glucose 57 L (75-110) mg/dL Calcium 8.5 L (8.6-10.4) mg/dl Phosphorus 3.5 (2.5-4.5) mg/dL Magnesium 1.8 (1.6-2.3) mg/dL Total Bilirubin 1.9 H (0.2-1.3) mg/dL AST 52 (17-59) U/L ALT 62 (21-72) U/L Alkaline Phosphatase 72 (38-126) U/L Total Protein 5.6 L (6.3-8.3) g/dL Albumin 3.2 L (3.5-5.0) g/dL Globulin 2.4 (2.2-3.9) gm/dL Albumin/Globulin Ratio 1.3 (1.0-2.1) Tacrolimus (LC/MS/MS) (5.0-20.0) mcg/L 05/15/18 05/15/18 05/15/18 Range/Units 21:15 16:23 11:06 WBC (4.8-10.8) K/uL RBC (4.40-5.90) Mil/uL Hgb (12.0-18.0) g/dL Hct (35.0-51.0) % MCV (80.0-94.0) fL MCH (27.0-31.0) pg MCHC (33.0-37.0) g/dL RDW (11.5-14.5) % Plt Count (130-400) K/uL MPV (7.2-11.7) fL Neutrophils % (Manual) (50-75) % Band Neutrophils % (0-2) % Lymphocytes % (Manual) (20-40) % Reactive Lymphs % (0-0) % Monocytes % (Manual) (0-10) % Eosinophils % (Manual) (0-4) % Myelocytes % (0-0) % Nucleated RBC % (0-0) % Toxic Granulation Platelet Estimate (NORMAL) Polychromasia Hypochromasia (manual) Basophilic Stippling Anisocytosis (manual) Macrocytosis (manual) Tear Drop Cells Ovalocytes Schistocytes PT (9.7-12.2) SECONDS INR APTT (21-34) SECONDS Sodium (132-148) mmol/L Potassium (3.6-5.2) mmol/L Chloride (98-107) mmol/L Carbon Dioxide (22-30) mmol/L Anion Gap (10-20) BUN (9-20) mg/dL Creatinine (0.8-1.5) mg/dL Est GFR ( Amer) Est GFR (Non-Af Amer) POC Glucose (mg/dL) 57 L 91 88 (65-110) mg/dL Random Glucose (75-110) mg/dL Calcium (8.6-10.4) mg/dl Phosphorus (2.5-4.5) mg/dL Magnesium (1.6-2.3) mg/dL Total Bilirubin (0.2-1.3) mg/dL AST (17-59) U/L ALT (21-72) U/L Alkaline Phosphatase (38-126) U/L Total Protein (6.3-8.3) g/dL Albumin (3.5-5.0) g/dL Globulin (2.2-3.9) gm/dL Albumin/Globulin Ratio (1.0-2.1) Tacrolimus (LC/MS/MS) (5.0-20.0) mcg/L 05/15/18 05/12/18 Range/Units 06:26 06:14 WBC (4.8-10.8) K/uL RBC (4.40-5.90) Mil/uL Hgb (12.0-18.0) g/dL Hct (35.0-51.0) % MCV (80.0-94.0) fL MCH (27.0-31.0) pg MCHC (33.0-37.0) g/dL RDW (11.5-14.5) % Plt Count (130-400) K/uL MPV (7.2-11.7) fL Neutrophils % (Manual) 72 (50-75) % Band Neutrophils % 8 H (0-2) % Lymphocytes % (Manual) 11 L (20-40) % Reactive Lymphs % (0-0) % Monocytes % (Manual) 6 (0-10) % Eosinophils % (Manual) 1 (0-4) % Myelocytes % 2 H (0-0) % Nucleated RBC % 5 H (0-0) % Toxic Granulation Platelet Estimate Slightly decreased L (NORMAL) Polychromasia Slight Hypochromasia (manual) Slight Basophilic Stippling Anisocytosis (manual) Moderate Macrocytosis (manual) Tear Drop Cells Slight Ovalocytes Slight Schistocytes PT (9.7-12.2) SECONDS INR APTT (21-34) SECONDS Sodium (132-148) mmol/L Potassium (3.6-5.2) mmol/L Chloride (98-107) mmol/L Carbon Dioxide (22-30) mmol/L Anion Gap (10-20) BUN (9-20) mg/dL Creatinine (0.8-1.5) mg/dL Est GFR ( Amer) Est GFR (Non-Af Amer) POC Glucose (mg/dL) (65-110) mg/dL Random Glucose (75-110) mg/dL Calcium (8.6-10.4) mg/dl Phosphorus (2.5-4.5) mg/dL Magnesium (1.6-2.3) mg/dL Total Bilirubin (0.2-1.3) mg/dL AST (17-59) U/L ALT (21-72) U/L Alkaline Phosphatase (38-126) U/L Total Protein (6.3-8.3) g/dL Albumin (3.5-5.0) g/dL Globulin (2.2-3.9) gm/dL Albumin/Globulin Ratio (1.0-2.1) Tacrolimus (LC/MS/MS) 8.1 (5.0-20.0) mcg/L Laboratory Results - last 24 hr 05/12/18 05/15/18 05/15/18 06:14 06:26 11:06 WBC RBC Hgb Hct MCV MCH MCHC RDW Plt Count MPV Neutrophils % (Manual) 72 Band Neutrophils % 8 H Lymphocytes % (Manual) 11 L Reactive Lymphs % Monocytes % (Manual) 6 Eosinophils % (Manual) 1 Myelocytes % 2 H Nucleated RBC % 5 H Toxic Granulation Platelet Estimate Slightly decreased L Polychromasia Slight Hypochromasia (manual) Slight Basophilic Stippling Anisocytosis (manual) Moderate Macrocytosis (manual) Tear Drop Cells Slight Ovalocytes Slight Schistocytes PT INR APTT Sodium Potassium Chloride Carbon Dioxide Anion Gap BUN Creatinine Est GFR ( Amer) Est GFR (Non- Amer) POC Glucose (mg/dL) 88 Random Glucose Calcium Phosphorus Magnesium Total Bilirubin AST ALT Alkaline Phosphatase Total Protein Albumin Globulin Albumin/Globulin Ratio Tacrolimus (LC/MS/MS) 8.1 05/15/18 05/15/18 05/15/18 16:23 21:15 21:17 WBC RBC Hgb Hct MCV MCH MCHC RDW Plt Count MPV Neutrophils % (Manual) Band Neutrophils % Lymphocytes % (Manual) Reactive Lymphs % Monocytes % (Manual) Eosinophils % (Manual) Myelocytes % Nucleated RBC % Toxic Granulation Platelet Estimate Polychromasia Hypochromasia (manual) Basophilic Stippling Anisocytosis (manual) Macrocytosis (manual) Tear Drop Cells Ovalocytes Schistocytes PT INR APTT Sodium Potassium Chloride Carbon Dioxide Anion Gap BUN Creatinine Est GFR ( Amer) Est GFR (Non-Af Amer) POC Glucose (mg/dL) 91 57 L 57 L Random Glucose Calcium Phosphorus Magnesium Total Bilirubin AST ALT Alkaline Phosphatase Total Protein Albumin Globulin Albumin/Globulin Ratio Tacrolimus (LC/MS/MS) 05/15/18 05/16/18 05/16/18 21:37 05:05 05:05 WBC 12.0 H RBC 3.20 L Hgb 9.6 L Hct 29.3 L MCV 91.5 MCH 30.1 MCHC 32.9 L RDW 24.9 H Plt Count 74 L D MPV 9.0 Neutrophils % (Manual) 77 H Band Neutrophils % 4 H Lymphocytes % (Manual) 10 L Reactive Lymphs % 1 H Monocytes % (Manual) 5 Eosinophils % (Manual) 3 Myelocytes % Nucleated RBC % 2 H Toxic Granulation Present Platelet Estimate Decreased L Polychromasia Moderate Hypochromasia (manual) Basophilic Stippling Slight Anisocytosis (manual) Moderate Macrocytosis (manual) Slight Tear Drop Cells Slight Ovalocytes Slight Schistocytes Slight PT INR APTT Sodium 146 Potassium 4.2 Chloride 110 H Carbon Dioxide 27 Anion Gap 14 BUN 28 H Creatinine 2.2 H Est GFR ( Amer) 36 Est GFR (Non-Af Amer) 30 POC Glucose (mg/dL) 97 Random Glucose 57 L Calcium 8.5 L Phosphorus 3.5 Magnesium 1.8 Total Bilirubin 1.9 H AST 52 ALT 62 Alkaline Phosphatase 72 Total Protein 5.6 L Albumin 3.2 L Globulin 2.4 Albumin/Globulin Ratio 1.3 Tacrolimus (LC/MS/MS) 05/16/18 05/16/18 05:05 06:18 WBC RBC Hgb Hct MCV MCH MCHC RDW Plt Count MPV Neutrophils % (Manual) Band Neutrophils % Lymphocytes % (Manual) Reactive Lymphs % Monocytes % (Manual) Eosinophils % (Manual) Myelocytes % Nucleated RBC % Toxic Granulation Platelet Estimate Polychromasia Hypochromasia (manual) Basophilic Stippling Anisocytosis (manual) Macrocytosis (manual) Tear Drop Cells Ovalocytes Schistocytes PT 13.3 H INR 1.2 APTT 41 H Sodium Potassium Chloride Carbon Dioxide Anion Gap BUN Creatinine Est GFR ( Amer) Est GFR (Non-Af Amer) POC Glucose (mg/dL) 58 L Random Glucose Calcium Phosphorus Magnesium Total Bilirubin AST ALT Alkaline Phosphatase Total Protein Albumin Globulin Albumin/Globulin Ratio Tacrolimus (LC/MS/MS) Fingerstick Blood Sugar Results: 57 Review of Systems - Review of Systems Systems not reviewed;Unavailable: Acuity of Condition Critical Care Progress Note - Extremities/Vascular Does the Patient have a Central Venous Catheter?: Yes Insertion Site: Femoral Vein (R) Does the Patient need a Central Venous Catheter?: Yes Does the Patient have a Ramires Catheter?: No Does the Patient need a Ramires Catheter?: No - Prophylaxis GI Prophylaxis GI: PPI - Prophylaxis DVT Prophylaxis DVT: Heparin SQ - Nutrition Nutrition: Nutrition Category Date Time Status Pureed [Dysphagia/Modified Consistency Diet] [DIET] Diets 05/15/18 Lunch Active Assessment/Plan - Assessment and Plan (Free Text) Assessment: Patient is a 72 yo male with multiple medical issues who presented with slurred speech and edematous upper extremities. Patient was found to be hypothermic, hypoglycemic, and hypotensive. 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 He has been taken off isolation. His mental status continues to wax and wane. He is weak with poor appetite and has a productive cough. He started HD on 05/12. Patient developed SVT/Vtach and HD was permaturely stopped. Similar episode happened during HD on 05/13. He completed a "SLED" HD 05/15. He is now requiring BiPAP. He has minimal PO intake. Plan: Neuro: AMS- delirium - [facility] patient - Neuro checks CV: Hypotension- septic shock, improved - Monitor vitals - Off pressors - Albumin 37.5 g IV daily PRN if SBP <90 CHF (HFpEF) - s/p AICD/pacemaker - CXR 05/11: mild-mod venous congestion, worsening small b/l pleural effusions, reticulated opacifiction in R upper-mid lung and L apex, cardiomegaly - CT chest/abd/pelvis 05/10: moderate b/l pleural effusions, chronic fibrotic changes, moderate pericardial effusions, diffuse anasarca - Echo 05/08: EF 66%, no vegetation seen, mild-mod TR, RV systolic pressure 40- 50 mmHg, small-mod pericardial effusion - Subsequent CXR continue to show congestion Afib, RVR - Verapamil 2.5 mg IV Q6H PRN - Diltiazem 180 mg PO daily - Eliquis 2.5 mg PO BID- hold Pulm: ARDS- 2/2 fluid overload, on BiPAP, DNI - CXR 05/11: mild-mod venous congestion, worsening small b/l pleural effusions, reticulated opacifiction in R upper-mid lung and L apex, cardiomegaly - CXR 05/12: pulm venous congestion, small pleural effusions, background COPD - CT chest/abd/pelvis 05/10: moderate b/l pleural effusions, chronic fibrotic changes, moderate pericardial effusions, diffuse anasarca - Maintain spO2>92%- supplemental O2, BiPAP PRN - Duoneb Q4H GI: Anasarca - CT chest/abd/pelvis 05/10: moderate b/l pleural effusions, chronic fibrotic changes, moderate pericardial effusions, diffuse anasarca - Decreased albumin- stable (3.2) Poor PO intake - Pureed diet - Glucerna supplements x3 - MV/vit C - Protonix 40 mg PO daily - [place] consulted Renal: Renal failure - s/p R kidney transplant in 2004 - Oliguric- bladder scans do not show urinary retention - Renal u/s: no abnormalities visualized - Elevated BUN, Cr improving with HD (28, 2.2) - HD on 05/12, 05/13, stopped prematurely due to SVT/Vtach - SLED HD on 05/15- completed session - Will get HD today 05/16 - CMP daily - Replete electrolytes PRN - Phoslo 1334 mg PO TID - Solu-cortef 100 mg IV Q8H - Tacrolimus 4 mg PO BID - Tacrolimus level low normal (6.8->4.6->8.1)- continue to monitor - Nephrology consulted (Ghanshyam)- rec "SLED" HD today 05/15 Endo: T2DM - Maintain euglycemia - Hypoglycemia protocol - Accuchecks ACHS with low dose regular ISS Hypothyroidism - TSH improved (42.6->19.3->4.03), free T4 low (0.45), total T4 low (1.22) - Thyroid Abs not detected - Increase Synthroid to 200 mcg PO daily - Endocrinology consulted ([place]) Heme: Coagulopathy - PT/INR/PTT improved- s/p 4u FFP on 05/12 and Vit K 10 mg IV x 3 days - Fibrinogen low (196), and fibrinogen degradation products >40 - Monitor coags- cryoprecip if fibrinogen <150 - Venous Dopplers of extremities pending Thrombocytopenia - Plts decreasing (74) - Hold ppx heparin Anemia - Anemic at BL- stable s/p 1u PRBC on 05/12 - FOBT negative - Monitor CBC - Folic acid 1 mg PO daily - Thiamine 200 mg IV Q8H ID: Septic shock- improving - Temp 88.6 on admission, resolved - Mild leukocytosis, stable (sepsis vs steroids)- 4 bands - Lactate wnl - Procal 3.68 - Sputum Cx: ESBL - Blood, Urine Cx no growth - MRSA screen negative - HIV negative - C. diff negative - Vit B6 50 mg PO daily - Meropenem 500 mg IV Q12H- started 05/11 - Daptomycin 300 mg IV Q48H- started 05/10 - Micafungin 100 mg IV daily TB in L knee - L knee XR: moderate suprapatellar effusion and soft tissue swelling - Rifampin 600 mg PO daily - Isoniazid 300 mg PO daily - Ortho consulted ([place])- no procedures indicated at this time, rec plastics - ID consulted (Charity)- continue dual TB therapy Integumentary: Desquamating rash - Mucous membranes NOT involved - Folic acid 1 mg PO daily - Thiamine 200 mg IV Q8H - Cyanocobalmin 1000 mcg PO daily - Vit A%D ointment - Collagenase - Lac-hydrin - Wound care consult PPx: VTE: contraindicated due to decreasing Plts, skin inflammation GI: PTX 40 mg PO daily PT/OT/ST- OOB to chair Code status: DNR/DNI (POLST) Palliative consult- patient and family initially agreeable to hospice eval Hospice eval- patient and family now willing to pursue further treatment Case discussed with attending, Dr. Bond. PGY-1 Natasha Khan D.O. <Sarthak Bond S - Last Filed: 05/16/18 17:34> CCU Subjective - Physician Review Critical Care Time Spent (in minutes): 45 CCU Objective - Vital Signs / Intake & Output Vital Signs (Last 4 hours): Vital Signs Temp Pulse Pulse Resp BP BP Pulse Ox 05/16/18 17:20 124/66 05/16/18 16:50 117/73 05/16/18 16:20 124/53 L 05/16/18 15:50 126/66 05/16/18 15:20 113/49 L 05/16/18 15:05 126/62 05/16/18 14:50 138/62 05/16/18 14:37 92 H 20 124/64 96 05/16/18 14:35 124/64 05/16/18 14:22 112 H 27 H 132/69 100 05/16/18 14:20 97.6 F 100 H 21 132/69 100 05/16/18 14:10 97.6 F 100 H 23 124/55 L 05/16/18 14:08 100 H 31 H 124/55 L 95 05/16/18 14:00 100 H 18 100 05/16/18 13:58 109 H 22 136/57 L 05/16/18 13:32 120 H Intake and Output (Last 8hrs): Intake & Output 05/16/18 05/16/18 05/16/18 06:59 14:59 22:59 Weight 123 lb 1.6 oz Other: # Voids Urine, Voided 1 # Bowel Movements 0 - Medications Active Medications: Active Medications Generic Name Dose Route Start Last Admin Trade Name Freq PRN Reason Stop Dose Admin Albumin Human 37.5 gm 05/12/18 16:00 Albumin Human 25% (12.5 Gm/50 Ml) IV DAILY PRN PER HD IF SBP IS LESS THAN 90 Albumin Human 12.5 gm 05/16/18 11:47 Albumin Human 25% (12.5 Gm/50 Ml) IV ONCE PRN hypotension Albuterol/Ipratropium 3 ml 05/12/18 19:00 05/16/18 16:02 Duoneb 3 Mg/0.5 Mg (3 Ml) Ud INH 3 ml RQ4 FAHEEM Administration Calcium Acetate 1,334 mg 05/12/18 13:21 05/16/18 16:56 Phoslo PO Not Given TIDCC FAHEEM Collagenase 0 gm 05/11/18 11:00 05/16/18 10:58 Santyl TOP 1 oin DAILY FAHEEM Administration Cyanocobalamin 1,000 mcg 05/12/18 10:00 05/16/18 14:03 Vitamin B12 1000 Mcg Tab PO 1,000 mcg DAILY FAHEEM Administration Dextrose 0 ml 05/08/18 17:53 05/16/18 06:37 Dextrose 50% Inj IV 50 ml STAT PRN Administration Hypoglycemia Protocol Protocol Dextrose 0 gm 05/08/18 17:53 Glutose 15 PO ONCE PRN Hypoglycemia Protocol Protocol Diltiazem HCl 180 mg 05/14/18 10:00 05/16/18 14:00 Cardizem Cd PO Not Given DAILY FAHEEM Folic Acid 1 mg 05/09/18 10:00 05/16/18 14:00 Folic Acid PO Not Given DAILY FAHEEM Glucagon 0 mg 05/08/18 17:53 Glucagen Diagnostic Kit IM STAT PRN Hypoglycemia Protocol Protocol Heparin Sodium (Porcine) 5,000 units 05/14/18 11:00 05/16/18 10:41 Heparin SC Not Given Q12 FAHEEM Hydrocortisone Sodium Succinate 100 mg 05/16/18 10:45 05/16/18 10:53 Solu-Cortef IV 100 mg Q8H FAHEEM Administration Daptomycin 300 mg/ Sodium 100 mls @ 200 mls/hr 05/10/18 18:30 05/14/18 17:30 Chloride IV 200 mls/hr Q48H FAHEEM Administration Micafungin Sodium 100 mg/ 100 mls @ 100 mls/hr 05/10/18 20:00 05/15/18 20:30 Sodium Chloride IV 100 mls/hr Q24H FAHEEM Administration Protocol Phenylephrine HCl 30 mg/ 253 mls @ 20.24 mls/hr 05/13/18 17:00 05/13/18 18:30 Dextrose IV 0 mcg/min .[id number] PRN 0 mls/hr TITRATE PER MD ORDER Titration Protocol 40 MCG/MIN Meropenem 500 mg/ Sodium 100 mls @ 100 mls/hr 05/14/18 23:00 05/16/18 10:06 Chloride IVPB 100 mls/hr Q12H FAHEEM Administration Protocol Insulin Human Regular 0 unit 05/16/18 16:50 Novolin R SC ACHS FAHEEM Protocol Isoniazid 300 mg 05/15/18 12:00 05/16/18 14:00 Niazid PO Not Given DAILY FAHEEM Protocol Lactic Acid 0 gm 05/12/18 07:00 05/16/18 14:05 Lac-Hydrin 12% Lotion (225 G) EXT 1 applic Q8 FAHEEM Administration Levothyroxine Sodium 200 mcg 05/16/18 06:30 05/16/18 05:30 Synthroid PO 200 mcg DAILY@0630 FAHEEM Administration Multivitamins 1 tab 05/15/18 13:00 05/16/18 14:01 Hexavitamin PO Not Given DAILY FAHEEM Pantoprazole Sodium 40 mg 05/12/18 21:00 05/16/18 10:05 Protonix Inj IVP 40 mg Q12H FAHEEM Administration Pyridoxine HCl 50 mg 05/09/18 10:00 05/16/18 14:08 Vitamin B6 50 Mg Tab PO Not Given DAILY FAHEEM Rifampin 600 mg 05/15/18 12:00 05/16/18 13:59 Rifampin Cap PO 600 mg DAILY FAHEEM Administration Protocol Tacrolimus 4 mg 05/15/18 11:35 05/16/18 13:54 Prograf Cap PO Not Given BID FAHEEM Thiamine HCl 200 mg 05/11/18 09:45 05/16/18 10:06 Vitamin B1 Inj IV 200 mg Q8H FAHEEM Administration Verapamil HCl 2.5 mg 05/13/18 16:52 05/15/18 21:00 Verapamil Inj IVP 2.5 mg Q6H PRN Administration Heart rate Vitamin A 0 ea 05/11/18 18:00 05/16/18 10:06 Vitamin A & D Oint Ud Foilpak TOP 1 ea BID FAHEEM Administration - Patient Studies Lab Studies: Lab Studies 05/16/18 05/16/18 05/16/18 Range/Units 12:10 11:28 11:26 WBC (4.8-10.8) K/uL RBC (4.40-5.90) Mil/uL Hgb (12.0-18.0) g/dL Hct (35.0-51.0) % MCV (80.0-94.0) fL MCH (27.0-31.0) pg MCHC (33.0-37.0) g/dL RDW (11.5-14.5) % Plt Count (130-400) K/uL MPV (7.2-11.7) fL Neutrophils % (Manual) (50-75) % Band Neutrophils % (0-2) % Lymphocytes % (Manual) (20-40) % Reactive Lymphs % (0-0) % Monocytes % (Manual) (0-10) % Eosinophils % (Manual) (0-4) % Nucleated RBC % (0-0) % Toxic Granulation Platelet Estimate (NORMAL) Polychromasia Basophilic Stippling Anisocytosis (manual) Macrocytosis (manual) Tear Drop Cells Ovalocytes Schistocytes PT (9.7-12.2) SECONDS INR APTT (21-34) SECONDS Fibrinogen 235 (200-400) mg/dL Fibrin Degrad Products Positive H (NEGATIVE) Fibrin Degrad Prod, Qt >10<40 H (<10) ug/mL Puncture Site pCO2 (35-45) mm/Hg pO2 (80-100) mm/Hg HCO3 (21-28) mmol/L ABG pH (7.35-7.45) ABG Total CO2 (22-28) mmol/L ABG O2 Saturation (95-98) % ABG Base Excess (-2.0-3.0) mmol/L Nehemiah Test ABG Potassium (3.6-5.2) mmol/L A-a O2 Difference mm/Hg Respiratory Index Glucose (75-110) mg/dl Lactate (0.7-2.1) mmol/L FiO2 % Inspiratory BiPAP Expiratory BiPAP Crit Value Called To Crit Value Called By Crit Value Read Back Blood Gas Notified Time Sodium (132-148) mmol/L Potassium (3.6-5.2) mmol/L Chloride (98-107) mmol/L Carbon Dioxide (22-30) mmol/L Anion Gap (10-20) BUN (9-20) mg/dL Creatinine (0.8-1.5) mg/dL Est GFR ( Amer) Est GFR (Non-Af Amer) POC Glucose (mg/dL) 30 L* 56 L (65-110) mg/dL Random Glucose (75-110) mg/dL Calcium (8.6-10.4) mg/dl Phosphorus (2.5-4.5) mg/dL Magnesium (1.6-2.3) mg/dL Total Bilirubin (0.2-1.3) mg/dL AST (17-59) U/L ALT (21-72) U/L Alkaline Phosphatase (38-126) U/L Total Protein (6.3-8.3) g/dL Albumin (3.5-5.0) g/dL Globulin (2.2-3.9) gm/dL Albumin/Globulin Ratio (1.0-2.1) Arterial Blood Potassium (3.6-5.2) mmol/L 05/16/18 05/16/18 05/16/18 Range/Units 08:23 07:25 06:18 WBC (4.8-10.8) K/uL RBC (4.40-5.90) Mil/uL Hgb (12.0-18.0) g/dL Hct (35.0-51.0) % MCV (80.0-94.0) fL MCH (27.0-31.0) pg MCHC (33.0-37.0) g/dL RDW (11.5-14.5) % Plt Count (130-400) K/uL MPV (7.2-11.7) fL Neutrophils % (Manual) (50-75) % Band Neutrophils % (0-2) % Lymphocytes % (Manual) (20-40) % Reactive Lymphs % (0-0) % Monocytes % (Manual) (0-10) % Eosinophils % (Manual) (0-4) % Nucleated RBC % (0-0) % Toxic Granulation Platelet Estimate (NORMAL) Polychromasia Basophilic Stippling Anisocytosis (manual) Macrocytosis (manual) Tear Drop Cells Ovalocytes Schistocytes PT (9.7-12.2) SECONDS INR APTT (21-34) SECONDS Fibrinogen (200-400) mg/dL Fibrin Degrad Products (NEGATIVE) Fibrin Degrad Prod, Qt (<10) ug/mL Puncture Site Lb pCO2 51 H (35-45) mm/Hg pO2 53 L (80-100) mm/Hg HCO3 21.9 (21-28) mmol/L ABG pH 7.28 L (7.35-7.45) ABG Total CO2 25.6 (22-28) mmol/L ABG O2 Saturation 88.4 L (95-98) % ABG Base Excess -3.3 L (-2.0-3.0) mmol/L Nehemiah Test Na ABG Potassium 3.3 L (3.6-5.2) mmol/L A-a O2 Difference 240.0 mm/Hg Respiratory Index 4.5 Glucose 78 (75-110) mg/dl Lactate 0.9 (0.7-2.1) mmol/L FiO2 50.0 % Inspiratory BiPAP 12 Expiratory BiPAP 5 Crit Value Called To Dr bond Crit Value Called By Kg mauricio outdoor studies director Crit Value Read Back Y Blood Gas Notified Time 830 Sodium 149.0 H (132-148) mmol/L Potassium (3.6-5.2) mmol/L Chloride 121.0 H (98-107) mmol/L Carbon Dioxide (22-30) mmol/L Anion Gap (10-20) BUN (9-20) mg/dL Creatinine (0.8-1.5) mg/dL Est GFR ( Amer) Est GFR (Non-Af Amer) POC Glucose (mg/dL) 101 58 L (65-110) mg/dL Random Glucose (75-110) mg/dL Calcium (8.6-10.4) mg/dl Phosphorus (2.5-4.5) mg/dL Magnesium (1.6-2.3) mg/dL Total Bilirubin (0.2-1.3) mg/dL AST (17-59) U/L ALT (21-72) U/L Alkaline Phosphatase (38-126) U/L Total Protein (6.3-8.3) g/dL Albumin (3.5-5.0) g/dL Globulin (2.2-3.9) gm/dL Albumin/Globulin Ratio (1.0-2.1) Arterial Blood Potassium 3.3 L (3.6-5.2) mmol/L 05/16/18 05/16/18 05/16/18 Range/Units 05:05 05:05 05:05 WBC 12.0 H (4.8-10.8) K/uL RBC 3.20 L (4.40-5.90) Mil/uL Hgb 9.6 L (12.0-18.0) g/dL Hct 29.3 L (35.0-51.0) % MCV 91.5 (80.0-94.0) fL MCH 30.1 (27.0-31.0) pg MCHC 32.9 L (33.0-37.0) g/dL RDW 24.9 H (11.5-14.5) % Plt Count 74 L D (130-400) K/uL MPV 9.0 (7.2-11.7) fL Neutrophils % (Manual) 77 H (50-75) % Band Neutrophils % 4 H (0-2) % Lymphocytes % (Manual) 10 L (20-40) % Reactive Lymphs % 1 H (0-0) % Monocytes % (Manual) 5 (0-10) % Eosinophils % (Manual) 3 (0-4) % Nucleated RBC % 2 H (0-0) % Toxic Granulation Present Platelet Estimate Decreased L (NORMAL) Polychromasia Moderate Basophilic Stippling Slight Anisocytosis (manual) Moderate Macrocytosis (manual) Slight Tear Drop Cells Slight Ovalocytes Slight Schistocytes Slight PT 13.3 H (9.7-12.2) SECONDS INR 1.2 APTT 41 H (21-34) SECONDS Fibrinogen (200-400) mg/dL Fibrin Degrad Products (NEGATIVE) Fibrin Degrad Prod, Qt (<10) ug/mL Puncture Site pCO2 (35-45) mm/Hg pO2 (80-100) mm/Hg HCO3 (21-28) mmol/L ABG pH (7.35-7.45) ABG Total CO2 (22-28) mmol/L ABG O2 Saturation (95-98) % ABG Base Excess (-2.0-3.0) mmol/L Nehemiah Test ABG Potassium (3.6-5.2) mmol/L A-a O2 Difference mm/Hg Respiratory Index Glucose (75-110) mg/dl Lactate (0.7-2.1) mmol/L FiO2 % Inspiratory BiPAP Expiratory BiPAP Crit Value Called To Crit Value Called By Crit Value Read Back Blood Gas Notified Time Sodium 146 (132-148) mmol/L Potassium 4.2 (3.6-5.2) mmol/L Chloride 110 H (98-107) mmol/L Carbon Dioxide 27 (22-30) mmol/L Anion Gap 14 (10-20) BUN 28 H (9-20) mg/dL Creatinine 2.2 H (0.8-1.5) mg/dL Est GFR ( Amer) 36 Est GFR (Non-Af Amer) 30 POC Glucose (mg/dL) (65-110) mg/dL Random Glucose 57 L (75-110) mg/dL Calcium 8.5 L (8.6-10.4) mg/dl Phosphorus 3.5 (2.5-4.5) mg/dL Magnesium 1.8 (1.6-2.3) mg/dL Total Bilirubin 1.9 H (0.2-1.3) mg/dL AST 52 (17-59) U/L ALT 62 (21-72) U/L Alkaline Phosphatase 72 (38-126) U/L Total Protein 5.6 L (6.3-8.3) g/dL Albumin 3.2 L (3.5-5.0) g/dL Globulin 2.4 (2.2-3.9) gm/dL Albumin/Globulin Ratio 1.3 (1.0-2.1) Arterial Blood Potassium (3.6-5.2) mmol/L 05/15/18 05/15/18 05/15/18 Range/Units 21:37 21:17 21:15 WBC (4.8-10.8) K/uL RBC (4.40-5.90) Mil/uL Hgb (12.0-18.0) g/dL Hct (35.0-51.0) % MCV (80.0-94.0) fL MCH (27.0-31.0) pg MCHC (33.0-37.0) g/dL RDW (11.5-14.5) % Plt Count (130-400) K/uL MPV (7.2-11.7) fL Neutrophils % (Manual) (50-75) % Band Neutrophils % (0-2) % Lymphocytes % (Manual) (20-40) % Reactive Lymphs % (0-0) % Monocytes % (Manual) (0-10) % Eosinophils % (Manual) (0-4) % Nucleated RBC % (0-0) % Toxic Granulation Platelet Estimate (NORMAL) Polychromasia Basophilic Stippling Anisocytosis (manual) Macrocytosis (manual) Tear Drop Cells Ovalocytes Schistocytes PT (9.7-12.2) SECONDS INR APTT (21-34) SECONDS Fibrinogen (200-400) mg/dL Fibrin Degrad Products (NEGATIVE) Fibrin Degrad Prod, Qt (<10) ug/mL Puncture Site pCO2 (35-45) mm/Hg pO2 (80-100) mm/Hg HCO3 (21-28) mmol/L ABG pH (7.35-7.45) ABG Total CO2 (22-28) mmol/L ABG O2 Saturation (95-98) % ABG Base Excess (-2.0-3.0) mmol/L Nehemiah Test ABG Potassium (3.6-5.2) mmol/L A-a O2 Difference mm/Hg Respiratory Index Glucose (75-110) mg/dl Lactate (0.7-2.1) mmol/L FiO2 % Inspiratory BiPAP Expiratory BiPAP Crit Value Called To Crit Value Called By Crit Value Read Back Blood Gas Notified Time Sodium (132-148) mmol/L Potassium (3.6-5.2) mmol/L Chloride (98-107) mmol/L Carbon Dioxide (22-30) mmol/L Anion Gap (10-20) BUN (9-20) mg/dL Creatinine (0.8-1.5) mg/dL Est GFR ( Amer) Est GFR (Non-Af Amer) POC Glucose (mg/dL) 97 57 L 57 L (65-110) mg/dL Random Glucose (75-110) mg/dL Calcium (8.6-10.4) mg/dl Phosphorus (2.5-4.5) mg/dL Magnesium (1.6-2.3) mg/dL Total Bilirubin (0.2-1.3) mg/dL AST (17-59) U/L ALT (21-72) U/L Alkaline Phosphatase (38-126) U/L Total Protein (6.3-8.3) g/dL Albumin (3.5-5.0) g/dL Globulin (2.2-3.9) gm/dL Albumin/Globulin Ratio (1.0-2.1) Arterial Blood Potassium (3.6-5.2) mmol/L Laboratory Results - last 24 hr 05/15/18 05/15/18 05/15/18 21:15 21:17 21:37 WBC RBC Hgb Hct MCV MCH MCHC RDW Plt Count MPV Neutrophils % (Manual) Band Neutrophils % Lymphocytes % (Manual) Reactive Lymphs % Monocytes % (Manual) Eosinophils % (Manual) Nucleated RBC % Toxic Granulation Platelet Estimate Polychromasia Basophilic Stippling Anisocytosis (manual) Macrocytosis (manual) Tear Drop Cells Ovalocytes Schistocytes PT INR APTT Fibrinogen Fibrin Degrad Products Fibrin Degrad Prod, Qt Puncture Site pCO2 pO2 HCO3 ABG pH ABG Total CO2 ABG O2 Saturation ABG Base Excess Nehemiah Test ABG Potassium A-a O2 Difference Respiratory Index Glucose Lactate FiO2 Inspiratory BiPAP Expiratory BiPAP Crit Value Called To Crit Value Called By Crit Value Read Back Blood Gas Notified Time Sodium Potassium Chloride Carbon Dioxide Anion Gap BUN Creatinine Est GFR ( Amer) Est GFR (Non-Af Amer) POC Glucose (mg/dL) 57 L 57 L 97 Random Glucose Calcium Phosphorus Magnesium Total Bilirubin AST ALT Alkaline Phosphatase Total Protein Albumin Globulin Albumin/Globulin Ratio Arterial Blood Potassium 05/16/18 05/16/18 05/16/18 05:05 05:05 05:05 WBC 12.0 H RBC 3.20 L Hgb 9.6 L Hct 29.3 L MCV 91.5 MCH 30.1 MCHC 32.9 L RDW 24.9 H Plt Count 74 L D MPV 9.0 Neutrophils % (Manual) 77 H Band Neutrophils % 4 H Lymphocytes % (Manual) 10 L Reactive Lymphs % 1 H Monocytes % (Manual) 5 Eosinophils % (Manual) 3 Nucleated RBC % 2 H Toxic Granulation Present Platelet Estimate Decreased L Polychromasia Moderate Basophilic Stippling Slight Anisocytosis (manual) Moderate Macrocytosis (manual) Slight Tear Drop Cells Slight Ovalocytes Slight Schistocytes Slight PT 13.3 H INR 1.2 APTT 41 H Fibrinogen Fibrin Degrad Products Fibrin Degrad Prod, Qt Puncture Site pCO2 pO2 HCO3 ABG pH ABG Total CO2 ABG O2 Saturation ABG Base Excess Nehemiah Test ABG Potassium A-a O2 Difference Respiratory Index Glucose Lactate FiO2 Inspiratory BiPAP Expiratory BiPAP Crit Value Called To Crit Value Called By Crit Value Read Back Blood Gas Notified Time Sodium 146 Potassium 4.2 Chloride 110 H Carbon Dioxide 27 Anion Gap 14 BUN 28 H Creatinine 2.2 H Est GFR ( Amer) 36 Est GFR (Non-Af Amer) 30 POC Glucose (mg/dL) Random Glucose 57 L Calcium 8.5 L Phosphorus 3.5 Magnesium 1.8 Total Bilirubin 1.9 H AST 52 ALT 62 Alkaline Phosphatase 72 Total Protein 5.6 L Albumin 3.2 L Globulin 2.4 Albumin/Globulin Ratio 1.3 Arterial Blood Potassium 05/16/18 05/16/18 05/16/18 06:18 07:25 08:23 WBC RBC Hgb Hct MCV MCH MCHC RDW Plt Count MPV Neutrophils % (Manual) Band Neutrophils % Lymphocytes % (Manual) Reactive Lymphs % Monocytes % (Manual) Eosinophils % (Manual) Nucleated RBC % Toxic Granulation Platelet Estimate Polychromasia Basophilic Stippling Anisocytosis (manual) Macrocytosis (manual) Tear Drop Cells Ovalocytes Schistocytes PT INR APTT Fibrinogen Fibrin Degrad Products Fibrin Degrad Prod, Qt Puncture Site Lb pCO2 51 H pO2 53 L HCO3 21.9 ABG pH 7.28 L ABG Total CO2 25.6 ABG O2 Saturation 88.4 L ABG Base Excess -3.3 L Nehemiah Test Na ABG Potassium 3.3 L A-a O2 Difference 240.0 Respiratory Index 4.5 Glucose 78 Lactate 0.9 FiO2 50.0 Inspiratory BiPAP 12 Expiratory BiPAP 5 Crit Value Called To Dr bond Crit Value Called By Kg mauricio outdoor studies director Crit Value Read Back Y Blood Gas Notified Time 830 Sodium 149.0 H Potassium Chloride 121.0 H Carbon Dioxide Anion Gap BUN Creatinine Est GFR ( Amer) Est GFR (Non-Af Amer) POC Glucose (mg/dL) 58 L 101 Random Glucose Calcium Phosphorus Magnesium Total Bilirubin AST ALT Alkaline Phosphatase Total Protein Albumin Globulin Albumin/Globulin Ratio Arterial Blood Potassium 3.3 L 05/16/18 05/16/18 05/16/18 11:26 11:28 12:10 WBC RBC Hgb Hct MCV MCH MCHC RDW Plt Count MPV Neutrophils % (Manual) Band Neutrophils % Lymphocytes % (Manual) Reactive Lymphs % Monocytes % (Manual) Eosinophils % (Manual) Nucleated RBC % Toxic Granulation Platelet Estimate Polychromasia Basophilic Stippling Anisocytosis (manual) Macrocytosis (manual) Tear Drop Cells Ovalocytes Schistocytes PT INR APTT Fibrinogen 235 Fibrin Degrad Products Positive H Fibrin Degrad Prod, Qt >10<40 H Puncture Site pCO2 pO2 HCO3 ABG pH ABG Total CO2 ABG O2 Saturation ABG Base Excess Nehemiah Test ABG Potassium A-a O2 Difference Respiratory Index Glucose Lactate FiO2 Inspiratory BiPAP Expiratory BiPAP Crit Value Called To Crit Value Called By Crit Value Read Back Blood Gas Notified Time Sodium Potassium Chloride Carbon Dioxide Anion Gap BUN Creatinine Est GFR ( Amer) Est GFR (Non-Af Amer) POC Glucose (mg/dL) 56 L 30 L* Random Glucose Calcium Phosphorus Magnesium Total Bilirubin AST ALT Alkaline Phosphatase Total Protein Albumin Globulin Albumin/Globulin Ratio Arterial Blood Potassium Critical Care Progress Note - Nutrition Nutrition: Nutrition Category Date Time Status Pureed [Dysphagia/Modified Consistency Diet] [DIET] Diets 05/15/18 Lunch Active Attending/Attestation - Attestation I have personally seen and examined this patient.: Yes I have fully participated in the care of the patient.: Yes I have reviewed all pertinent clinical information: Yes Notes (Text): 05/16/18 17:32 patient seen and examined in the intensive care unit. Continue BiPAP Patient does not want intubation or any other aggressive measures Continue hemodialysis continue present treatment for now Case discussed with family at length Prognosis poor
[2018-05-16 08:30] LABS: ARTERIAL BLOOD GAS HCO3 21.9 mmol/L (21-28); ARTERIAL BLOOD GAS O2 SAT 88.4 % (95-98); ARTERIAL BLOOD GAS PCO2 51 mm/Hg (35-45); ARTERIAL BLOOD GAS PH 7.28 (7.35-7.45); ARTERIAL BLOOD GAS PO2 53 mm/Hg (80-100); ARTERIAL BLOOD GAS TCO2 25.6 mmol/L (22-28)
[2018-05-16] MEDS ORDERED: Multiple Vitamins Tab PO SCH (10:00)
[2018-05-16] MEDS: Meropenem 500 MG in Sodium Chloride 0.9% 100 ML IVPB SCH ×2 (10:06→22:00)
[2018-05-16] MEDS: Vitamins A & D Oint UD Foilpak TOP SCH ×2 (10:06→18:05)
[2018-05-16] MEDS: Collagenase 250 Units/gm Ointment(30 gm) TOP SCH (10:58)
--- NOTE | 2018-05-16 11:40 | CP.PCM.PN ---
Subjective - Date & Time of Evaluation Date of Evaluation: 05/16/18 Time of Evaluation: 11:38 - Subjective Subjective: seen and examined minimal uop tolerated SLED dyspneic, on bipap. son at bedside, care discussed w/ him Objective - Vital Signs/Intake and Output Vital Signs (last 24 hours): Temp Pulse Resp BP Pulse Ox 97.8 F 120 H 22 122/56 L 92 L 05/16/18 04:00 05/16/18 08:30 05/16/18 06:09 05/16/18 06:09 05/16/18 06:09 Intake and Output: 05/16/18 05/16/18 06:59 18:59 Intake Total 400 Output Total 1000 Balance -600 - Medications Medications: Current Medications Albumin Human (Albumin Human 25% (12.5 Gm/50 Ml)) 37.5 gm IV DAILY PRN PRN Reason: PER HD IF SBP IS LESS THAN 90 Albuterol/Ipratropium (Duoneb 3 Mg/0.5 Mg (3 Ml) Ud) 3 ml INH RQ4 [facility] Last Admin: 05/16/18 08:20 Dose: 3 ml Calcium Acetate (Phoslo) 1,334 mg PO TIDCC [facility] Last Admin: 05/16/18 08:34 Dose: Not Given Collagenase (Santyl) 0 gm TOP DAILY [facility] Last Admin: 05/16/18 10:58 Dose: 1 oin Cyanocobalamin (Vitamin B12 1000 Mcg Tab) 1,000 mcg PO DAILY [facility] Last Admin: 05/15/18 10:35 Dose: 1,000 mcg Dextrose (Dextrose 50% Inj) 0 ml IV STAT PRN; Protocol PRN Reason: Hypoglycemia Protocol Last Admin: 05/16/18 06:37 Dose: 50 ml Dextrose (Glutose 15) 0 gm PO ONCE PRN; Protocol PRN Reason: Hypoglycemia Protocol Diltiazem HCl (Cardizem Cd) 180 mg PO DAILY [facility] Last Admin: 05/15/18 10:31 Dose: 180 mg Folic Acid (Folic Acid) 1 mg PO DAILY [facility] Last Admin: 05/15/18 10:31 Dose: 1 mg Glucagon (Glucagen Diagnostic Kit) 0 mg IM STAT PRN; Protocol PRN Reason: Hypoglycemia Protocol Heparin Sodium (Porcine) (Heparin) 5,000 units SC Q12 [facility] Last Admin: 05/16/18 10:41 Dose: Not Given Hydrocortisone Sodium Succinate (Solu-Cortef) 100 mg IV Q8H [facility] Last Admin: 05/16/18 10:53 Dose: 100 mg Daptomycin 300 mg/ Sodium (Chloride) 100 mls @ 200 mls/hr IV Q48H [facility] Last Admin: 05/14/18 17:30 Dose: 200 mls/hr Micafungin Sodium 100 mg/ (Sodium Chloride) 100 mls @ 100 mls/hr IV Q24H [facility]; Protocol Last Admin: 05/15/18 20:30 Dose: 100 mls/hr Phenylephrine HCl 30 mg/ (Dextrose) 253 mls @ 20.24 mls/hr IV .[id number] PRN; Protocol PRN Reason: TITRATE PER MD ORDER Last Titration: 05/13/18 18:30 Dose: 0 mcg/min, 0 mls/hr Meropenem 500 mg/ Sodium (Chloride) 100 mls @ 100 mls/hr IVPB Q12H [facility]; Protocol Last Admin: 05/16/18 10:06 Dose: 100 mls/hr Insulin Human Regular (Novolin R) 0 unit SC ACHS [facility]; Protocol Last Admin: 05/16/18 07:30 Dose: Not Given Isoniazid (Niazid) 300 mg PO DAILY [facility]; Protocol Last Admin: 05/15/18 13:05 Dose: 300 mg Lactic Acid (Lac-Hydrin 12% Lotion (225 G)) 0 gm EXT Q8 [facility] Last Admin: 05/16/18 05:31 Dose: 1 applic Levothyroxine Sodium (Synthroid) 200 mcg PO DAILY@0630 [facility] Last Admin: 05/16/18 05:30 Dose: 200 mcg Multivitamins (Hexavitamin) 1 tab PO DAILY [facility] Last Admin: 05/15/18 13:09 Dose: 1 tab Pantoprazole Sodium (Protonix Inj) 40 mg IVP Q12H [facility] Last Admin: 05/16/18 10:05 Dose: 40 mg Pyridoxine HCl (Vitamin B6 50 Mg Tab) 50 mg PO DAILY [facility] Last Admin: 05/15/18 10:36 Dose: 50 mg Rifampin (Rifampin Cap) 600 mg PO DAILY [facility]; Protocol Last Admin: 05/15/18 13:03 Dose: 600 mg Tacrolimus (Prograf Cap) 4 mg PO BID [facility] Last Admin: 05/15/18 17:54 Dose: 4 mg Thiamine HCl (Vitamin B1 Inj) 200 mg IV Q8H [facility] Last Admin: 05/16/18 10:06 Dose: 200 mg Verapamil HCl (Verapamil Inj) 2.5 mg IVP Q6H PRN PRN Reason: Heart rate Last Admin: 05/15/18 21:00 Dose: 2.5 mg Vitamin A (Vitamin A & D Oint Ud Foilpak) 0 ea TOP BID [facility] Last Admin: 05/16/18 10:06 Dose: 1 ea - Labs Labs: 05/16/18 05:05 05/16/18 05:05 PT 13.3 SECONDS (9.7-12.2) H 05/16/18 05:05 INR 1.2 05/16/18 05:05 APTT 41 SECONDS (21-34) H 05/16/18 05:05 - Constitutional Appears: In Acute Distress, Chronically Ill - Head Exam Head Exam: NORMAL INSPECTION, NORMOCEPHALIC - Eye Exam Eye Exam: Normal appearance, PERRL - ENT Exam Additional comments: bipap mask - Respiratory Exam Respiratory Exam: Decreased Breath Sounds, Rhonchi, Respiratory Distress, NORMAL BREATHING PATTERN - Cardiovascular Exam Cardiovascular Exam: Tachycardia, Irregular Rhythm, RRR - GI/Abdominal Exam GI & Abdominal Exam: Distended, Soft - Extremities Exam Extremities Exam: Normal Inspection, Pedal Edema - Neurological Exam Neurological Exam: Alert, Awake - Skin Skin Exam: Dry, Intact Assessment and Plan (1) Acute confusion Status: Resolved (2) Exfoliative dermatitis Status: Resolved (3) Sepsis Status: Acute (4) CKD (chronic kidney disease) stage 3, GFR 30-59 ml/min Status: Acute (5) Chronic atrial fibrillation Status: Acute (6) DM type 2 (diabetes mellitus, type 2) Status: Acute (7) History of kidney transplant Status: Acute - Assessment and Plan (Free Text) Assessment: SLED today, estimated uf 1.5L if patient agreeable low temp dialysate, albumin for bp support poor prognosis
[2018-05-16] MEDS ORDERED: Dextrose 50% SYRINGE Inj (50 ml) IV STA (12:08)
[2018-05-16 12:32] LABS: FIBRINOGEN 235 mg/dL (200-400)
[2018-05-16 12:35] LABS: FDP INTERPRETATION POSITIVE (NEGATIVE)
[2018-05-16 12:36] LABS: FDP QUANTITY >10<40 ug/mL (<10)
--- NOTE | 2018-05-16 13:38 | RAD ---
Date of service: 05/16/2018 HISTORY: fluid overload COMPARISON: 05/13/2018 FINDINGS: LUNGS: Patchy bilateral pulmonary opacities slightly increased at right base and increased in upper left jorge thorax. Evaluation somewhat limited by oblique positioning of the patient. The findings are nonspecific. This may reflect pulmonary edema or pneumonia or pulmonary hemorrhage. PLEURA: Small bilateral pleural effusion. No pneumothorax. CARDIOVASCULAR: Normal heart size. AICD. Congestive change noted. Normal cardiac size. No pulmonary vascular congestion. OSSEOUS STRUCTURES: No significant abnormalities. VISUALIZED UPPER ABDOMEN: Normal. OTHER FINDINGS: None. IMPRESSION: Increasing bilateral pulmonary infiltrates, nonspecific. Small bilateral pleural effusion.
[2018-05-16] MEDS: diltiaZEM 180 mg/24 Hours CD Cap PO SCH (14:00)
[2018-05-16] MEDS: Multiple Vitamins Tab PO SCH (14:01)
[2018-05-16] MEDS: Micafungin 100 MG in Sodium Chloride 0.9% 100 ML IV SCH (20:45)
--- NOTE | 2018-05-16 22:39 | PN ---
DATE: 05/16/2018 ENDOCRINOLOGY FOLLOWUP NOTE LOCATION: ICU room 10. This is a 72-year-old male with ongoing IV antibiotic management for bacteremia and severe undernutrition and is now being followed closely for metabolic management. His repeat chemistry today showed a BUN of 28, sodium 146, potassium 4.2, chloride 110, CO2 of 27, glucose 57, and creatinine 2.2. His glucose values have been on the extremely low side of normal today ranging from 30 to 56 and 101 mg/dL. The patient is not on any kind of basal insulin at this time as noted. He is only on a coverage scale with regular insulin for correction as indicated. So at this time, he remains clinically euthyroid and biochemically has improved remarkably as noted. The repeat thyroid study showed a total T4 thyroxine level of 1.22 and the TSH level was not done even it was actually ordered with a free T4 of 0.45. We will repeat the thyroid studies to include the TSH, which was originally ordered and not done otherwise. We will continue the levothyroxine given as 200 mcg once daily in the morning as ordered. We will obtain serial chemistries and supplement accordingly as needed. We will follow. Isamar Shane MD
--- NOTE | 2018-05-17 00:53 | CP.PCM.PN ---
Subjective - Date & Time of Evaluation Date of Evaluation: 05/16/18 Time of Evaluation: 19:00 - Subjective Subjective: Patient tolerated HD today, but remains dyspneic and in on BIPAP, with poor appetite, and hypoglycemia. CXR reveals CHF. Objective - Vital Signs/Intake and Output Vital Signs (last 24 hours): Temp Pulse Resp BP Pulse Ox 97.4 F L 108 H 17 124/51 L 100 05/16/18 17:50 05/16/18 23:00 05/16/18 23:00 05/16/18 22:53 05/16/18 23:00 Intake and Output: 05/16/18 05/17/18 18:59 06:59 Intake Total 380 200 Balance 380 200 - Medications Medications: Current Medications Albumin Human (Albumin Human 25% (12.5 Gm/50 Ml)) 37.5 gm IV DAILY PRN PRN Reason: PER HD IF SBP IS LESS THAN 90 Albumin Human (Albumin Human 25% (12.5 Gm/50 Ml)) 12.5 gm IV ONCE PRN PRN Reason: hypotension Albuterol/Ipratropium (Duoneb 3 Mg/0.5 Mg (3 Ml) Ud) 3 ml INH RQ4 [facility] Last Admin: 05/16/18 19:56 Dose: 3 ml Calcium Acetate (Phoslo) 1,334 mg PO TIDCC [facility] Last Admin: 05/16/18 16:56 Dose: Not Given Collagenase (Santyl) 0 gm TOP DAILY [facility] Last Admin: 05/16/18 10:58 Dose: 1 oin Cyanocobalamin (Vitamin B12 1000 Mcg Tab) 1,000 mcg PO DAILY [facility] Last Admin: 05/16/18 14:03 Dose: 1,000 mcg Dextrose (Dextrose 50% Inj) 0 ml IV STAT PRN; Protocol PRN Reason: Hypoglycemia Protocol Last Admin: 05/16/18 21:23 Dose: 50 ml Dextrose (Glutose 15) 0 gm PO ONCE PRN; Protocol PRN Reason: Hypoglycemia Protocol Diltiazem HCl (Cardizem Cd) 180 mg PO DAILY [facility] Last Admin: 05/16/18 14:00 Dose: Not Given Folic Acid (Folic Acid) 1 mg PO DAILY [facility] Last Admin: 05/16/18 14:00 Dose: Not Given Glucagon (Glucagen Diagnostic Kit) 0 mg IM STAT PRN; Protocol PRN Reason: Hypoglycemia Protocol Heparin Sodium (Porcine) (Heparin) 5,000 units SC Q12 [facility] Last Admin: 05/16/18 10:41 Dose: Not Given Hydrocortisone Sodium Succinate (Solu-Cortef) 100 mg IV Q8H [facility] Last Admin: 05/16/18 18:05 Dose: 100 mg Daptomycin 300 mg/ Sodium (Chloride) 100 mls @ 200 mls/hr IV Q48H [facility] Last Admin: 05/16/18 18:03 Dose: 200 mls/hr Micafungin Sodium 100 mg/ (Sodium Chloride) 100 mls @ 100 mls/hr IV Q24H [facility]; Protocol Last Admin: 05/16/18 20:45 Dose: 100 mls/hr Phenylephrine HCl 30 mg/ (Dextrose) 253 mls @ 20.24 mls/hr IV .[id number] PRN; Protocol PRN Reason: TITRATE PER MD ORDER Last Titration: 05/13/18 18:30 Dose: 0 mcg/min, 0 mls/hr Meropenem 500 mg/ Sodium (Chloride) 100 mls @ 100 mls/hr IVPB Q12H [facility]; Protocol Last Admin: 05/16/18 10:06 Dose: 100 mls/hr Dextrose (Dextrose 10% In Water) 500 mls @ 20 mls/hr IV .Q24H [facility] Insulin Human Regular (Novolin R) 0 unit SC ACHS [facility]; Protocol Last Admin: 05/16/18 21:51 Dose: Not Given Isoniazid (Niazid) 300 mg PO DAILY [facility]; Protocol Last Admin: 05/16/18 14:00 Dose: Not Given Lactic Acid (Lac-Hydrin 12% Lotion (225 G)) 0 gm EXT Q8 [facility] Last Admin: 05/16/18 14:05 Dose: 1 applic Levothyroxine Sodium (Synthroid) 200 mcg PO DAILY@0630 [facility] Last Admin: 05/16/18 05:30 Dose: 200 mcg Multivitamins (Hexavitamin) 1 tab PO DAILY [facility] Last Admin: 05/16/18 14:01 Dose: Not Given Pantoprazole Sodium (Protonix Inj) 40 mg IVP Q12H [facility] Last Admin: 05/16/18 20:45 Dose: 40 mg Pyridoxine HCl (Vitamin B6 50 Mg Tab) 50 mg PO DAILY [facility] Last Admin: 05/16/18 14:08 Dose: Not Given Rifampin (Rifampin Cap) 600 mg PO DAILY [facility]; Protocol Last Admin: 05/16/18 13:59 Dose: 600 mg Tacrolimus (Prograf Cap) 4 mg PO BID [facility] Last Admin: 05/16/18 18:05 Dose: Not Given Thiamine HCl (Vitamin B1 Inj) 200 mg IV Q8H [facility] Last Admin: 05/16/18 18:08 Dose: 200 mg Verapamil HCl (Verapamil Inj) 2.5 mg IVP Q6H PRN PRN Reason: Heart rate Last Admin: 05/15/18 21:00 Dose: 2.5 mg Vitamin A (Vitamin A & D Oint Ud Foilpak) 0 ea TOP BID [facility] Last Admin: 05/16/18 18:05 Dose: 1 ea - Labs Labs: 05/16/18 05:05 05/16/18 05:05 PT 13.3 SECONDS (9.7-12.2) H 05/16/18 05:05 INR 1.2 05/16/18 05:05 APTT 41 SECONDS (21-34) H 05/16/18 05:05 - Constitutional Appears: In Acute Distress, Cachectic, Chronically Ill - Head Exam Head Exam: NORMAL INSPECTION - ENT Exam ENT Exam: Normal Exam - Neck Exam Neck Exam: Normal Inspection - Respiratory Exam Respiratory Exam: Rhonchi - Cardiovascular Exam Cardiovascular Exam: Irregular Rhythm - GI/Abdominal Exam GI & Abdominal Exam: Soft, Normal Bowel Sounds - Rectal Exam Rectal Exam: Deferred - Extremities Exam Extremities Exam: Pedal Edema - Back Exam Back Exam: NORMAL INSPECTION - Neurological Exam Neurological Exam: Alert, Oriented x3 - Psychiatric Exam Psychiatric exam: Anxious - Skin Skin Exam: Dry, Intact Assessment and Plan (1) Hypothermia Status: Resolved (2) Hypoglycemia Status: Resolved (3) Hypotension Status: Resolved (4) Acute confusion Status: Resolved (5) Exfoliative dermatitis Status: Resolved (6) Acute on chronic diastolic CHF (congestive heart failure) Assessment & Plan: Needs more HD. Status: Acute (7) YVAN (acute kidney injury) Assessment & Plan: HD as per Nephrologists. Status: Acute
[2018-05-17] MEDS: Albuterol-Ipratrop 3 mg / 0.5 (3 ml) UD INH SCH ×6 (00:55→19:34)
[2018-05-17] MEDS: Thiamine 100 mg/ml Inj IV SCH ×3 (01:59→18:25)
[2018-05-17 04:40] LABS: BASO % 0.1 % (0.0-2.0); HEMOGLOBIN 9.5 g/dL (12.0-18.0); LYMPH # 0.4 K/uL (1.0-4.3); LYMPH % 1.7 % (20.0-40.0); MEAN CELL VOLUME 93.8 fL (80.0-94.0); MEAN CORPUSCULAR HEMOGLOBIN 29.4 pg (27.0-31.0); MEAN CORPUSCULAR HGB CONC 31.3 g/dL (33.0-37.0); MEAN PLATELET VOLUME 9.4 fL (7.2-11.7); MONO # 0.3 K/uL (0.0-0.8); MONO % 1.6 % (0.0-10.0); NEUT # 20.6 K/uL (1.8-7.0); NEUT % 96.6 % (50.0-75.0); NRBC % 1.1 % (0.0-2.0); PLATELET COUNT 66 K/uL (130-400); RBC 3.24 Mil/uL (4.40-5.90); RED CELL DISTRIBUTION WIDTH 24.7 % (11.5-14.5); WHITE BLOOD COUNT 21.3 K/uL (4.8-10.8)
[2018-05-17 04:53] LABS: INR 1.1; PROTHROMBIN TIME 12.2 SECONDS (9.7-12.2)
[2018-05-17 05:02] LABS: ALB/GLOB RATIO 1.2 (1.0-2.1)
[2018-05-17 05:18] LABS: T4 1.01 ug/dL (5.5-11.0)
[2018-05-17] MEDS: Levothyroxine 200 mcg (0.2 mg) Inj IVP SCH (06:26)
[2018-05-17] MEDS: Ammonium Lactate 12% Lotion (225 g) EXT SCH ×3 (06:27→22:31)
[2018-05-17 08:05] LABS: ANISOCYTOSIS MODERATE; BANDS 36 % (0-2); LYMPHOCYTE 4 % (20-40); MONOCYTE 4 % (0-10); NEUTROPHIL 56 % (50-75); PLATELET ESTIMATE DECREASED (NORMAL); POLYCHROMIC SLIGHT; TOTAL CELLS COUNTED 100
[2018-05-17 08:06] LABS: OVALOCYTES SLIGHT
[2018-05-17 08:09] LABS: HYPOCHROMIC MODERATE
[2018-05-17 08:10] LABS: SCHISTOCYTES SLIGHT; TARGET CELLS SLIGHT
--- NOTE | 2018-05-17 08:10 | CP.CCUPN ---
<Natasha Khan - Last Filed: 05/17/18 13:39> CCU Subjective - Physician Review Events Since Last Encounter (Free Text): 05/17/18 08:09 patient tolerated HD yesterday 05/17/18 08:11 patient reportedly hypothermic last night, also some agitation Subjective (Free Text): 05/17/18 08:09 Patient was seen and examined this morning. He is on BiPAP. Very lethargic. Critical Care Time Spent (in minutes): 35 CCU Objective - Vital Signs / Intake & Output Vital Signs (Last 4 hours): Vital Signs Pulse Resp BP Pulse Ox 05/17/18 07:50 100 H 05/17/18 06:00 93 H 16 100 05/17/18 05:53 93 H 16 131/56 L 100 05/17/18 05:49 89 20 133/47 L 100 05/17/18 05:30 91 H 05/17/18 05:00 86 100 05/17/18 04:53 89 123/59 L 100 Intake and Output (Last 8hrs): Intake & Output 05/16/18 05/17/18 05/17/18 22:59 06:59 14:59 Intake Total 300 140 Balance 300 140 Weight 120 lb 9.6 oz Intake: Intake, IV Amount 300 140 Right 140 Right Femoral Side-Port 300 0 Other: # Voids Urine, Voided 0 # Bowel Movements 1 - Physical Exam Head: Positive for: Atraumatic, Normocephalic Pupils: Positive for: PERRL Extroacular Muscles: Positive for: EOMI Conjunctiva: Positive for: Normal Mouth: Positive for: Dry Pharnyx: Negative for: ERYTHEMA Respiratory/Chest: Positive for: Other (BiPAP). Negative for: Respiratory Distress, Accessory Muscle Use Cardiovascular: Positive for: Normal S1, S2, Irregular Rhythm (Afib RVR), Tachycardic, Other (trialysis cath in R femoral). Negative for: Murmurs Abdomen: Positive for: Normal Bowel Sounds. Negative for: Tenderness, Distention, Peritoneal Signs Upper Extremity: Positive for: Swelling, Erythema, Neurovascularly Intact, Other (b/l skin sloughing) Lower Extremity: Positive for: Erythema, Neurovascularly Intact Neurological: Positive for: GCS=15, CN II-XII Intact Psychiatric: Positive for: Alert, Oriented x 3. Negative for: Agitated - Medications Active Medications: Active Medications Generic Name Dose Route Start Last Admin Trade Name Freq PRN Reason Stop Dose Admin Albumin Human 37.5 gm 05/12/18 16:00 Albumin Human 25% (12.5 Gm/50 Ml) IV DAILY PRN PER HD IF SBP IS LESS THAN 90 Albumin Human 12.5 gm 05/16/18 11:47 Albumin Human 25% (12.5 Gm/50 Ml) IV ONCE PRN hypotension Albuterol/Ipratropium 3 ml 05/12/18 19:00 05/17/18 07:36 Duoneb 3 Mg/0.5 Mg (3 Ml) Ud INH 3 ml RQ4 FAEHEM Administration Calcium Acetate 1,334 mg 05/12/18 13:21 05/16/18 16:56 Phoslo PO Not Given TIDCC FAHEEM Collagenase 0 gm 05/11/18 11:00 05/16/18 10:58 Santyl TOP 1 oin DAILY FAHEEM Administration Cyanocobalamin 1,000 mcg 05/12/18 10:00 05/16/18 14:03 Vitamin B12 1000 Mcg Tab PO 1,000 mcg DAILY FAHEEM Administration Dextrose 0 ml 05/08/18 17:53 05/16/18 21:23 Dextrose 50% Inj IV 50 ml STAT PRN Administration Hypoglycemia Protocol Protocol Dextrose 0 gm 05/08/18 17:53 Glutose 15 PO ONCE PRN Hypoglycemia Protocol Protocol Diltiazem HCl 180 mg 05/14/18 10:00 05/16/18 14:00 Cardizem Cd PO Not Given DAILY FAHEEM Folic Acid 1 mg 05/09/18 10:00 05/16/18 14:00 Folic Acid PO Not Given DAILY FAHEEM Glucagon 0 mg 05/08/18 17:53 Glucagen Diagnostic Kit IM STAT PRN Hypoglycemia Protocol Protocol Heparin Sodium (Porcine) 5,000 units 05/14/18 11:00 05/16/18 10:41 Heparin SC Not Given Q12 FAHEEM Hydrocortisone Sodium Succinate 100 mg 05/16/18 10:45 05/17/18 01:59 Solu-Cortef IV 100 mg Q8H FAHEEM Administration Daptomycin 300 mg/ Sodium 100 mls @ 200 mls/hr 05/10/18 18:30 05/16/18 18:03 Chloride IV 200 mls/hr Q48H FAHEEM Administration Micafungin Sodium 100 mg/ 100 mls @ 100 mls/hr 10/31/18 20:00 05/16/18 20:45 Sodium Chloride IV 100 mls/hr Q24H FAHEEM Administration Protocol Phenylephrine HCl 30 mg/ 253 mls @ 20.24 mls/hr 05/13/18 17:00 05/13/18 18:30 Dextrose IV 0 mcg/min .[id number] PRN 0 mls/hr TITRATE PER MD ORDER Titration Protocol 40 MCG/MIN Meropenem 500 mg/ Sodium 100 mls @ 100 mls/hr 05/14/18 23:00 05/16/18 22:00 Chloride IVPB 100 mls/hr Q12H FAHEEM Administration Protocol Dextrose 500 mls @ 10 mls/hr 05/17/18 07:00 Dextrose 10% In Water IV .Q24H FAHEEM Insulin Human Regular 0 unit 05/16/18 16:50 05/16/18 21:51 Novolin R SC Not Given ACHS FAHEEM Protocol Isoniazid 300 mg 05/15/18 12:00 05/16/18 14:00 Niazid PO Not Given DAILY FAHEEM Protocol Lactic Acid 0 gm 05/12/18 07:00 05/17/18 06:27 Lac-Hydrin 12% Lotion (225 G) EXT 1 applic Q8 FAHEEM Administration Levothyroxine Sodium 200 mcg 05/17/18 06:00 05/17/18 06:26 Levothyroxine IVP 200 mcg Q24H FAHEEM Administration Multivitamins 1 tab 05/15/18 13:00 05/16/18 14:01 Hexavitamin PO Not Given DAILY FAHEEM Pantoprazole Sodium 40 mg 05/12/18 21:00 05/16/18 20:45 Protonix Inj IVP 40 mg Q12H FAHEEM Administration Pyridoxine HCl 50 mg 05/09/18 10:00 05/16/18 14:08 Vitamin B6 50 Mg Tab PO Not Given DAILY FAHEEM Rifampin 600 mg 05/15/18 12:00 05/16/18 13:59 Rifampin Cap PO 600 mg DAILY FAHEEM Administration Protocol Tacrolimus 4 mg 05/15/18 11:35 05/16/18 18:05 Prograf Cap PO Not Given BID FAHEEM Thiamine HCl 200 mg 05/11/18 09:45 05/17/18 01:59 Vitamin B1 Inj IV 200 mg Q8H FAHEEM Administration Verapamil HCl 2.5 mg 05/13/18 16:52 05/15/18 21:00 Verapamil Inj IVP 2.5 mg Q6H PRN Administration Heart rate Vitamin A 0 ea 05/11/18 18:00 05/16/18 18:05 Vitamin A & D Oint Ud Foilpak TOP 1 ea BID FAHEEM Administration - Patient Studies Lab Studies: Lab Studies 05/17/18 05/17/18 05/17/18 Range/Units 07:25 04:38 04:38 WBC 21.3 H D (4.8-10.8) K/uL RBC 3.24 L (4.40-5.90) Mil/uL Hgb 9.5 L (12.0-18.0) g/dL Hct 30.4 L (35.0-51.0) % MCV 93.8 D (80.0-94.0) fL MCH 29.4 (27.0-31.0) pg MCHC 31.3 L (33.0-37.0) g/dL RDW 24.7 H (11.5-14.5) % Plt Count 66 L (130-400) K/uL MPV 9.4 (7.2-11.7) fL Neut % (Auto) 96.6 H (50.0-75.0) % Lymph % (Auto) 1.7 L (20.0-40.0) % [place] % (Auto) 1.6 (0.0-10.0) % Eos % (Auto) 0.0 (0.0-4.0) % Baso % (Auto) 0.1 (0.0-2.0) % Neut # (Auto) 20.6 H (1.8-7.0) K/uL Lymph # (Auto) 0.4 L (1.0-4.3) K/uL [place] # (Auto) 0.3 (0.0-0.8) K/uL Eos # (Auto) 0.0 (0.0-0.7) K/uL Baso # (Auto) 0.0 (0.0-0.2) K/uL PT (9.7-12.2) SECONDS INR APTT (21-34) SECONDS Fibrinogen (200-400) mg/dL Fibrin Degrad Products (NEGATIVE) Fibrin Degrad Prod, Qt (<10) ug/mL Puncture Site pCO2 (35-45) mm/Hg pO2 (80-100) mm/Hg HCO3 (21-28) mmol/L ABG pH (7.35-7.45) ABG Total CO2 (22-28) mmol/L ABG O2 Saturation (95-98) % ABG Base Excess (-2.0-3.0) mmol/L Nehemiah Test ABG Potassium (3.6-5.2) mmol/L A-a O2 Difference mm/Hg Respiratory Index Sodium 142 (132-148) mmol/l Chloride 105 (98-107) mmol/L Glucose (75-110) mg/dl Lactate (0.7-2.1) mmol/L FiO2 % Inspiratory BiPAP Expiratory BiPAP Crit Value Called To Crit Value Called By Crit Value Read Back Blood Gas Notified Time Potassium 5.1 (3.6-5.2) mmol/L Carbon Dioxide 28 (22-30) mmol/L Anion Gap 14 (10-20) BUN 22 H (9-20) mg/dL Creatinine 1.9 H (0.8-1.5) mg/dL Est GFR ( Amer) 42 Est GFR (Non-Af Amer) 35 POC Glucose (mg/dL) 92 (65-110) mg/dL Random Glucose 160 H (75-110) mg/dL Calcium 8.0 L (8.6-10.4) mg/dl Phosphorus 4.4 (2.5-4.5) mg/dL Magnesium 1.7 (1.6-2.3) mg/dL Total Bilirubin 1.4 H (0.2-1.3) mg/dL AST 40 (17-59) U/L ALT 62 (21-72) U/L Alkaline Phosphatase 76 (38-126) U/L Total Protein 5.5 L (6.3-8.3) g/dL Albumin 3.0 L (3.5-5.0) g/dL Globulin 2.5 (2.2-3.9) gm/dL Albumin/Globulin Ratio 1.2 (1.0-2.1) Thyroxine (T4) 1.01 L (5.5-11.0) ug/dL TSH 3rd Generation 4.26 (0.46-4.68) mIU/L Arterial Blood Potassium (3.6-5.2) mmol/L Tacrolimus (LC/MS/MS) (5.0-20.0) mcg/L 05/17/18 05/17/18 05/16/18 Range/Units 04:38 04:27 23:46 WBC (4.8-10.8) K/uL RBC (4.40-5.90) Mil/uL Hgb (12.0-18.0) g/dL Hct (35.0-51.0) % MCV (80.0-94.0) fL MCH (27.0-31.0) pg MCHC (33.0-37.0) g/dL RDW (11.5-14.5) % Plt Count (130-400) K/uL MPV (7.2-11.7) fL Neut % (Auto) (50.0-75.0) % Lymph % (Auto) (20.0-40.0) % [place] % (Auto) (0.0-10.0) % Eos % (Auto) (0.0-4.0) % Baso % (Auto) (0.0-2.0) % Neut # (Auto) (1.8-7.0) K/uL Lymph # (Auto) (1.0-4.3) K/uL [place] # (Auto) (0.0-0.8) K/uL Eos # (Auto) (0.0-0.7) K/uL Baso # (Auto) (0.0-0.2) K/uL PT 12.2 (9.7-12.2) SECONDS INR 1.1 APTT 42 H (21-34) SECONDS Fibrinogen (200-400) mg/dL Fibrin Degrad Products (NEGATIVE) Fibrin Degrad Prod, Qt (<10) ug/mL Puncture Site pCO2 (35-45) mm/Hg pO2 (80-100) mm/Hg HCO3 (21-28) mmol/L ABG pH (7.35-7.45) ABG Total CO2 (22-28) mmol/L ABG O2 Saturation (95-98) % ABG Base Excess (-2.0-3.0) mmol/L Nehemiah Test ABG Potassium (3.6-5.2) mmol/L A-a O2 Difference mm/Hg Respiratory Index Sodium (132-148) mmol/l Chloride (98-107) mmol/L Glucose (75-110) mg/dl Lactate (0.7-2.1) mmol/L FiO2 % Inspiratory BiPAP Expiratory BiPAP Crit Value Called To Crit Value Called By Crit Value Read Back Blood Gas Notified Time Potassium (3.6-5.2) mmol/L Carbon Dioxide (22-30) mmol/L Anion Gap (10-20) BUN (9-20) mg/dL Creatinine (0.8-1.5) mg/dL Est GFR ( Amer) Est GFR (Non-Af Amer) POC Glucose (mg/dL) 143 H 138 H (65-110) mg/dL Random Glucose (75-110) mg/dL Calcium (8.6-10.4) mg/dl Phosphorus (2.5-4.5) mg/dL Magnesium (1.6-2.3) mg/dL Total Bilirubin (0.2-1.3) mg/dL AST (17-59) U/L ALT (21-72) U/L Alkaline Phosphatase (38-126) U/L Total Protein (6.3-8.3) g/dL Albumin (3.5-5.0) g/dL Globulin (2.2-3.9) gm/dL Albumin/Globulin Ratio (1.0-2.1) Thyroxine (T4) (5.5-11.0) ug/dL TSH 3rd Generation (0.46-4.68) mIU/L Arterial Blood Potassium (3.6-5.2) mmol/L Tacrolimus (LC/MS/MS) (5.0-20.0) mcg/L 05/16/18 05/16/18 05/16/18 Range/Units 21:59 21:17 21:15 WBC (4.8-10.8) K/uL RBC (4.40-5.90) Mil/uL Hgb (12.0-18.0) g/dL Hct (35.0-51.0) % MCV (80.0-94.0) fL MCH (27.0-31.0) pg MCHC (33.0-37.0) g/dL RDW (11.5-14.5) % Plt Count (130-400) K/uL MPV (7.2-11.7) fL Neut % (Auto) (50.0-75.0) % Lymph % (Auto) (20.0-40.0) % [place] % (Auto) (0.0-10.0) % Eos % (Auto) (0.0-4.0) % Baso % (Auto) (0.0-2.0) % Neut # (Auto) (1.8-7.0) K/uL Lymph # (Auto) (1.0-4.3) K/uL [place] # (Auto) (0.0-0.8) K/uL Eos # (Auto) (0.0-0.7) K/uL Baso # (Auto) (0.0-0.2) K/uL PT (9.7-12.2) SECONDS INR APTT (21-34) SECONDS Fibrinogen (200-400) mg/dL Fibrin Degrad Products (NEGATIVE) Fibrin Degrad Prod, Qt (<10) ug/mL Puncture Site pCO2 (35-45) mm/Hg pO2 (80-100) mm/Hg HCO3 (21-28) mmol/L ABG pH (7.35-7.45) ABG Total CO2 (22-28) mmol/L ABG O2 Saturation (95-98) % ABG Base Excess (-2.0-3.0) mmol/L Nehemiah Test ABG Potassium (3.6-5.2) mmol/L A-a O2 Difference mm/Hg Respiratory Index Sodium (132-148) mmol/l Chloride (98-107) mmol/L Glucose (75-110) mg/dl Lactate (0.7-2.1) mmol/L FiO2 % Inspiratory BiPAP Expiratory BiPAP Crit Value Called To Crit Value Called By Crit Value Read Back Blood Gas Notified Time Potassium (3.6-5.2) mmol/L Carbon Dioxide (22-30) mmol/L Anion Gap (10-20) BUN (9-20) mg/dL Creatinine (0.8-1.5) mg/dL Est GFR ( Amer) Est GFR (Non-Af Amer) POC Glucose (mg/dL) 136 H 60 L 66 (65-110) mg/dL Random Glucose (75-110) mg/dL Calcium (8.6-10.4) mg/dl Phosphorus (2.5-4.5) mg/dL Magnesium (1.6-2.3) mg/dL Total Bilirubin (0.2-1.3) mg/dL AST (17-59) U/L ALT (21-72) U/L Alkaline Phosphatase (38-126) U/L Total Protein (6.3-8.3) g/dL Albumin (3.5-5.0) g/dL Globulin (2.2-3.9) gm/dL Albumin/Globulin Ratio (1.0-2.1) Thyroxine (T4) (5.5-11.0) ug/dL TSH 3rd Generation (0.46-4.68) mIU/L Arterial Blood Potassium (3.6-5.2) mmol/L Tacrolimus (LC/MS/MS) (5.0-20.0) mcg/L 05/16/18 05/16/18 05/16/18 Range/Units 16:14 12:10 11:51 WBC (4.8-10.8) K/uL RBC (4.40-5.90) Mil/uL Hgb (12.0-18.0) g/dL Hct (35.0-51.0) % MCV (80.0-94.0) fL MCH (27.0-31.0) pg MCHC (33.0-37.0) g/dL RDW (11.5-14.5) % Plt Count (130-400) K/uL MPV (7.2-11.7) fL Neut % (Auto) (50.0-75.0) % Lymph % (Auto) (20.0-40.0) % [place] % (Auto) (0.0-10.0) % Eos % (Auto) (0.0-4.0) % Baso % (Auto) (0.0-2.0) % Neut # (Auto) (1.8-7.0) K/uL Lymph # (Auto) (1.0-4.3) K/uL [place] # (Auto) (0.0-0.8) K/uL Eos # (Auto) (0.0-0.7) K/uL Baso # (Auto) (0.0-0.2) K/uL PT (9.7-12.2) SECONDS INR APTT (21-34) SECONDS Fibrinogen 235 (200-400) mg/dL Fibrin Degrad Products Positive H (NEGATIVE) Fibrin Degrad Prod, Qt >10<40 H (<10) ug/mL Puncture Site pCO2 (35-45) mm/Hg pO2 (80-100) mm/Hg HCO3 (21-28) mmol/L ABG pH (7.35-7.45) ABG Total CO2 (22-28) mmol/L ABG O2 Saturation (95-98) % ABG Base Excess (-2.0-3.0) mmol/L Nehemiah Test ABG Potassium (3.6-5.2) mmol/L A-a O2 Difference mm/Hg Respiratory Index Sodium (132-148) mmol/l Chloride (98-107) mmol/L Glucose (75-110) mg/dl Lactate (0.7-2.1) mmol/L FiO2 % Inspiratory BiPAP Expiratory BiPAP Crit Value Called To Crit Value Called By Crit Value Read Back Blood Gas Notified Time Potassium (3.6-5.2) mmol/L Carbon Dioxide (22-30) mmol/L Anion Gap (10-20) BUN (9-20) mg/dL Creatinine (0.8-1.5) mg/dL Est GFR ( Amer) Est GFR (Non-Af Amer) POC Glucose (mg/dL) 82 111 H (65-110) mg/dL Random Glucose (75-110) mg/dL Calcium (8.6-10.4) mg/dl Phosphorus (2.5-4.5) mg/dL Magnesium (1.6-2.3) mg/dL Total Bilirubin (0.2-1.3) mg/dL AST (17-59) U/L ALT (21-72) U/L Alkaline Phosphatase (38-126) U/L Total Protein (6.3-8.3) g/dL Albumin (3.5-5.0) g/dL Globulin (2.2-3.9) gm/dL Albumin/Globulin Ratio (1.0-2.1) Thyroxine (T4) (5.5-11.0) ug/dL TSH 3rd Generation (0.46-4.68) mIU/L Arterial Blood Potassium (3.6-5.2) mmol/L Tacrolimus (LC/MS/MS) (5.0-20.0) mcg/L 05/16/18 05/16/18 05/16/18 Range/Units 11:28 11:26 08:23 WBC (4.8-10.8) K/uL RBC (4.40-5.90) Mil/uL Hgb (12.0-18.0) g/dL Hct (35.0-51.0) % MCV (80.0-94.0) fL MCH (27.0-31.0) pg MCHC (33.0-37.0) g/dL RDW (11.5-14.5) % Plt Count (130-400) K/uL MPV (7.2-11.7) fL Neut % (Auto) (50.0-75.0) % Lymph % (Auto) (20.0-40.0) % [place] % (Auto) (0.0-10.0) % Eos % (Auto) (0.0-4.0) % Baso % (Auto) (0.0-2.0) % Neut # (Auto) (1.8-7.0) K/uL Lymph # (Auto) (1.0-4.3) K/uL [place] # (Auto) (0.0-0.8) K/uL Eos # (Auto) (0.0-0.7) K/uL Baso # (Auto) (0.0-0.2) K/uL PT (9.7-12.2) SECONDS INR APTT (21-34) SECONDS Fibrinogen (200-400) mg/dL Fibrin Degrad Products (NEGATIVE) Fibrin Degrad Prod, Qt (<10) ug/mL Puncture Site Lb pCO2 51 H (35-45) mm/Hg pO2 53 L (80-100) mm/Hg HCO3 21.9 (21-28) mmol/L ABG pH 7.28 L (7.35-7.45) ABG Total CO2 25.6 (22-28) mmol/L ABG O2 Saturation 88.4 L (95-98) % ABG Base Excess -3.3 L (-2.0-3.0) mmol/L Nehemiah Test Na ABG Potassium 3.3 L (3.6-5.2) mmol/L A-a O2 Difference 240.0 mm/Hg Respiratory Index 4.5 Sodium 149.0 H (132-148) mmol/l Chloride 121.0 H (98-107) mmol/L Glucose 78 (75-110) mg/dl Lactate 0.9 (0.7-2.1) mmol/L FiO2 50.0 % Inspiratory BiPAP 12 Expiratory BiPAP 5 Crit Value Called To Dr bond 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 Crit Value Read Back Y Blood Gas Notified Time 830 Potassium (3.6-5.2) mmol/L Carbon Dioxide (22-30) mmol/L Anion Gap (10-20) BUN (9-20) mg/dL Creatinine (0.8-1.5) mg/dL Est GFR ( Amer) Est GFR (Non-Af Amer) POC Glucose (mg/dL) 30 L* 56 L (65-110) mg/dL Random Glucose (75-110) mg/dL Calcium (8.6-10.4) mg/dl Phosphorus (2.5-4.5) mg/dL Magnesium (1.6-2.3) mg/dL Total Bilirubin (0.2-1.3) mg/dL AST (17-59) U/L ALT (21-72) U/L Alkaline Phosphatase (38-126) U/L Total Protein (6.3-8.3) g/dL Albumin (3.5-5.0) g/dL Globulin (2.2-3.9) gm/dL Albumin/Globulin Ratio (1.0-2.1) Thyroxine (T4) (5.5-11.0) ug/dL TSH 3rd Generation (0.46-4.68) mIU/L Arterial Blood Potassium 3.3 L (3.6-5.2) mmol/L Tacrolimus (LC/MS/MS) (5.0-20.0) mcg/L 05/16/18 05/15/18 Range/Units 07:25 06:27 WBC (4.8-10.8) K/uL RBC (4.40-5.90) Mil/uL Hgb (12.0-18.0) g/dL Hct (35.0-51.0) % MCV (80.0-94.0) fL MCH (27.0-31.0) pg MCHC (33.0-37.0) g/dL RDW (11.5-14.5) % Plt Count (130-400) K/uL MPV (7.2-11.7) fL Neut % (Auto) (50.0-75.0) % Lymph % (Auto) (20.0-40.0) % [place] % (Auto) (0.0-10.0) % Eos % (Auto) (0.0-4.0) % Baso % (Auto) (0.0-2.0) % Neut # (Auto) (1.8-7.0) K/uL Lymph # (Auto) (1.0-4.3) K/uL [place] # (Auto) (0.0-0.8) K/uL Eos # (Auto) (0.0-0.7) K/uL Baso # (Auto) (0.0-0.2) K/uL PT (9.7-12.2) SECONDS INR APTT (21-34) SECONDS Fibrinogen (200-400) mg/dL Fibrin Degrad Products (NEGATIVE) Fibrin Degrad Prod, Qt (<10) ug/mL Puncture Site pCO2 (35-45) mm/Hg pO2 (80-100) mm/Hg HCO3 (21-28) mmol/L ABG pH (7.35-7.45) ABG Total CO2 (22-28) mmol/L ABG O2 Saturation (95-98) % ABG Base Excess (-2.0-3.0) mmol/L Nehemiah Test ABG Potassium (3.6-5.2) mmol/L A-a O2 Difference mm/Hg Respiratory Index Sodium (132-148) mmol/l Chloride (98-107) mmol/L Glucose (75-110) mg/dl Lactate (0.7-2.1) mmol/L FiO2 % Inspiratory BiPAP Expiratory BiPAP Crit Value Called To Crit Value Called By Crit Value Read Back Blood Gas Notified Time Potassium (3.6-5.2) mmol/L Carbon Dioxide (22-30) mmol/L Anion Gap (10-20) BUN (9-20) mg/dL Creatinine (0.8-1.5) mg/dL Est GFR ( Amer) Est GFR (Non-Af Amer) POC Glucose (mg/dL) 101 (65-110) mg/dL Random Glucose (75-110) mg/dL Calcium (8.6-10.4) mg/dl Phosphorus (2.5-4.5) mg/dL Magnesium (1.6-2.3) mg/dL Total Bilirubin (0.2-1.3) mg/dL AST (17-59) U/L ALT (21-72) U/L Alkaline Phosphatase (38-126) U/L Total Protein (6.3-8.3) g/dL Albumin (3.5-5.0) g/dL Globulin (2.2-3.9) gm/dL Albumin/Globulin Ratio (1.0-2.1) Thyroxine (T4) (5.5-11.0) ug/dL TSH 3rd Generation (0.46-4.68) mIU/L Arterial Blood Potassium (3.6-5.2) mmol/L Tacrolimus (LC/MS/MS) 23.7 H (5.0-20.0) mcg/L Laboratory Results - last 24 hr 05/15/18 05/16/18 05/16/18 06:27 07:25 08:23 WBC RBC Hgb Hct MCV MCH MCHC RDW Plt Count MPV Neut % (Auto) Lymph % (Auto) [place] % (Auto) Eos % (Auto) Baso % (Auto) Neut # (Auto) Lymph # (Auto) [place] # (Auto) Eos # (Auto) Baso # (Auto) PT INR APTT Fibrinogen Fibrin Degrad Products Fibrin Degrad Prod, Qt Puncture Site Lb pCO2 51 H pO2 53 L HCO3 21.9 ABG pH 7.28 L ABG Total CO2 25.6 ABG O2 Saturation 88.4 L ABG Base Excess -3.3 L Nehemiah Test Na ABG Potassium 3.3 L A-a O2 Difference 240.0 Respiratory Index 4.5 Sodium 149.0 H Chloride 121.0 H Glucose 78 Lactate 0.9 FiO2 50.0 Inspiratory BiPAP 12 Expiratory BiPAP 5 Crit Value Called To Dr bond Crit Value 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 Crit Value Read Back Y Blood Gas Notified Time 830 Potassium Carbon Dioxide Anion Gap BUN Creatinine Est GFR ( Amer) Est GFR (Non-Af Amer) POC Glucose (mg/dL) 101 Random Glucose Calcium Phosphorus Magnesium Total Bilirubin AST ALT Alkaline Phosphatase Total Protein Albumin Globulin Albumin/Globulin Ratio Thyroxine (T4) TSH 3rd Generation Arterial Blood Potassium 3.3 L Tacrolimus (LC/MS/MS) 23.7 H 05/16/18 05/16/18 05/16/18 11:26 11:28 11:51 WBC RBC Hgb Hct MCV MCH MCHC RDW Plt Count MPV Neut % (Auto) Lymph % (Auto) [place] % (Auto) Eos % (Auto) Baso % (Auto) Neut # (Auto) Lymph # (Auto) [place] # (Auto) Eos # (Auto) Baso # (Auto) PT INR APTT Fibrinogen Fibrin Degrad Products Fibrin Degrad Prod, Qt Puncture Site pCO2 pO2 HCO3 ABG pH ABG Total CO2 ABG O2 Saturation ABG Base Excess Nehemiah Test ABG Potassium A-a O2 Difference Respiratory Index Sodium Chloride Glucose Lactate FiO2 Inspiratory BiPAP Expiratory BiPAP Crit Value Called To Crit Value Called By Crit Value Read Back Blood Gas Notified Time Potassium Carbon Dioxide Anion Gap BUN Creatinine Est GFR ( Amer) Est GFR (Non-Af Amer) POC Glucose (mg/dL) 56 L 30 L* 111 H Random Glucose Calcium Phosphorus Magnesium Total Bilirubin AST ALT Alkaline Phosphatase Total Protein Albumin Globulin Albumin/Globulin Ratio Thyroxine (T4) TSH 3rd Generation Arterial Blood Potassium Tacrolimus (LC/MS/MS) 05/16/18 05/16/18 05/16/18 12:10 16:14 21:15 WBC RBC Hgb Hct MCV MCH MCHC RDW Plt Count MPV Neut % (Auto) Lymph % (Auto) [place] % (Auto) Eos % (Auto) Baso % (Auto) Neut # (Auto) Lymph # (Auto) [place] # (Auto) Eos # (Auto) Baso # (Auto) PT INR APTT Fibrinogen 235 Fibrin Degrad Products Positive H Fibrin Degrad Prod, Qt >10<40 H Puncture Site pCO2 pO2 HCO3 ABG pH ABG Total CO2 ABG O2 Saturation ABG Base Excess Nehemiah Test ABG Potassium A-a O2 Difference Respiratory Index Sodium Chloride Glucose Lactate FiO2 Inspiratory BiPAP Expiratory BiPAP Crit Value Called To Crit Value Called By Crit Value Read Back Blood Gas Notified Time Potassium Carbon Dioxide Anion Gap BUN Creatinine Est GFR ( Amer) Est GFR (Non-Af Amer) POC Glucose (mg/dL) 82 66 Random Glucose Calcium Phosphorus Magnesium Total Bilirubin AST ALT Alkaline Phosphatase Total Protein Albumin Globulin Albumin/Globulin Ratio Thyroxine (T4) TSH 3rd Generation Arterial Blood Potassium Tacrolimus (LC/MS/MS) 05/16/18 05/16/18 05/16/18 21:17 21:59 23:46 WBC RBC Hgb Hct MCV MCH MCHC RDW Plt Count MPV Neut % (Auto) Lymph % (Auto) [place] % (Auto) Eos % (Auto) Baso % (Auto) Neut # (Auto) Lymph # (Auto) [place] # (Auto) Eos # (Auto) Baso # (Auto) PT INR APTT Fibrinogen Fibrin Degrad Products Fibrin Degrad Prod, Qt Puncture Site pCO2 pO2 HCO3 ABG pH ABG Total CO2 ABG O2 Saturation ABG Base Excess Nehemiah Test ABG Potassium A-a O2 Difference Respiratory Index Sodium Chloride Glucose Lactate FiO2 Inspiratory BiPAP Expiratory BiPAP Crit Value Called To Crit Value Called By Crit Value Read Back Blood Gas Notified Time Potassium Carbon Dioxide Anion Gap BUN Creatinine Est GFR ( Amer) Est GFR (Non-Af Amer) POC Glucose (mg/dL) 60 L 136 H 138 H Random Glucose Calcium Phosphorus Magnesium Total Bilirubin AST ALT Alkaline Phosphatase Total Protein Albumin Globulin Albumin/Globulin Ratio Thyroxine (T4) TSH 3rd Generation Arterial Blood Potassium Tacrolimus (LC/MS/MS) 05/17/18 05/17/18 05/17/18 04:27 04:38 04:38 WBC RBC Hgb Hct MCV MCH MCHC RDW Plt Count MPV Neut % (Auto) Lymph % (Auto) [place] % (Auto) Eos % (Auto) Baso % (Auto) Neut # (Auto) Lymph # (Auto) [place] # (Auto) Eos # (Auto) Baso # (Auto) PT 12.2 INR 1.1 APTT 42 H Fibrinogen Fibrin Degrad Products Fibrin Degrad Prod, Qt Puncture Site pCO2 pO2 HCO3 ABG pH ABG Total CO2 ABG O2 Saturation ABG Base Excess Nehemiah Test ABG Potassium A-a O2 Difference Respiratory Index Sodium 142 Chloride 105 Glucose Lactate FiO2 Inspiratory BiPAP Expiratory BiPAP Crit Value Called To Crit Value Called By Crit Value Read Back Blood Gas Notified Time Potassium 5.1 Carbon Dioxide 28 Anion Gap 14 BUN 22 H Creatinine 1.9 H Est GFR ( Amer) 42 Est GFR (Non-Af Amer) 35 POC Glucose (mg/dL) 143 H Random Glucose 160 H Calcium 8.0 L Phosphorus 4.4 Magnesium 1.7 Total Bilirubin 1.4 H AST 40 ALT 62 Alkaline Phosphatase 76 Total Protein 5.5 L Albumin 3.0 L Globulin 2.5 Albumin/Globulin Ratio 1.2 Thyroxine (T4) 1.01 L TSH 3rd Generation 4.26 Arterial Blood Potassium Tacrolimus (LC/MS/MS) 05/17/18 05/17/18 04:38 07:25 WBC 21.3 H D RBC 3.24 L Hgb 9.5 L Hct 30.4 L MCV 93.8 D MCH 29.4 MCHC 31.3 L RDW 24.7 H Plt Count 66 L MPV 9.4 Neut % (Auto) 96.6 H Lymph % (Auto) 1.7 L [place] % (Auto) 1.6 Eos % (Auto) 0.0 Baso % (Auto) 0.1 Neut # (Auto) 20.6 H Lymph # (Auto) 0.4 L [place] # (Auto) 0.3 Eos # (Auto) 0.0 Baso # (Auto) 0.0 PT INR APTT Fibrinogen Fibrin Degrad Products Fibrin Degrad Prod, Qt Puncture Site pCO2 pO2 HCO3 ABG pH ABG Total CO2 ABG O2 Saturation ABG Base Excess Nehemiah Test ABG Potassium A-a O2 Difference Respiratory Index Sodium Chloride Glucose Lactate FiO2 Inspiratory BiPAP Expiratory BiPAP Crit Value Called To Crit Value Called By Crit Value Read Back Blood Gas Notified Time Potassium Carbon Dioxide Anion Gap BUN Creatinine Est GFR ( Amer) Est GFR (Non-Af Amer) POC Glucose (mg/dL) 92 Random Glucose Calcium Phosphorus Magnesium Total Bilirubin AST ALT Alkaline Phosphatase Total Protein Albumin Globulin Albumin/Globulin Ratio Thyroxine (T4) TSH 3rd Generation Arterial Blood Potassium Tacrolimus (LC/MS/MS) Fingerstick Blood Sugar Results: 82 Review of Systems - Review of Systems Systems not reviewed;Unavailable: Altered Mental Status (lethargic) Critical Care Progress Note - Extremities/Vascular Does the Patient have a Central Venous Catheter?: Yes Insertion Site: Femoral Vein (right) Does the Patient need a Central Venous Catheter?: Yes Does the Patient have a Ramires Catheter?: No Does the Patient need a Ramires Catheter?: No - Prophylaxis GI Prophylaxis GI: PPI - Prophylaxis DVT Prophylaxis DVT: Not Indicated - Nutrition Nutrition: Nutrition Category Date Time Status Pureed [Dysphagia/Modified Consistency Diet] [DIET] Diets 05/15/18 Lunch Active Assessment/Plan - Assessment and Plan (Free Text) Assessment: Patient is a 72 yo male with multiple medical issues who presented with slurred speech and edematous upper extremities. Patient was found to be hypothermic, hypoglycemic, and hypotensive. 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 He has been taken off isolation. His mental status continues to wax and wane. He is weak with poor appetite and has a productive cough. He started HD on 05/12. Patient developed SVT/Vtach and HD was permaturely stopped. Similar episo de happened during HD on 05/13. He completed a "SLED" HD 05/15. He is now requiring BiPAP. He has minimal PO intake. More oliguric. next HD planned for 05/18. Plan: Neuro: AMS- delirium - [place] patient - Neuro checks CV: Afib, RVR - Verapamil 2.5 mg IV Q6H PRN - Diltiazem 180 mg PO daily - Eliquis 2.5 mg PO BID- hold Hypotension- septic shock, improved - Monitor vitals - Off pressors - Albumin 37.5 g IV daily PRN if SBP <90 CHF (HFpEF) - s/p AICD/pacemaker - CXR 05/11: mild-mod venous congestion, worsening small b/l pleural effusions, reticulated opacifiction in R upper-mid lung and L apex, cardiomegaly - CT chest/abd/pelvis 05/10: moderate b/l pleural effusions, chronic fibrotic changes, moderate pericardial effusions, diffuse anasarca - Echo 05/08: EF 66%, no vegetation seen, mild-mod TR, RV systolic pressure 40- 50 mmHg, small-mod pericardial effusion - Subsequent CXR continue to show congestion, b/l infiltrates, b/l pleural effusions Pulm: ARDS- 2/2 fluid overload and/or PNA, on BiPAP, DNI - CXR 05/11: mild-mod venous congestion, worsening small b/l pleural effusions, reticulated opacifiction in R upper-mid lung and L apex, cardiomegaly - CXR 05/12: pulm venous congestion, small pleural effusions, background COPD - CT chest/abd/pelvis 05/10: moderate b/l pleural effusions, chronic fibrotic changes, moderate pericardial effusions, diffuse anasarca - Maintain spO2>92%- supplemental O2, BiPAP PRN - ABG: pH 7.2, pCO2 70, pO2 37 - Duoneb Q6H GI: Anasarca - CT chest/abd/pelvis 05/10: moderate b/l pleural effusions, chronic fibrotic changes, moderate pericardial effusions, diffuse anasarca - Decreased albumin- stable (3.0) Poor PO intake - Pureed diet - Glucerna supplements x3 - MV/vit C - Protonix 40 mg PO daily - Bulk Delivery Driver consulted Renal: Renal failure - s/p R kidney transplant in 2004 - Oliguric - Renal u/s: no abnormalities visualized - Elevated BUN, Cr improving with HD (22, 1.9) - HD on 05/12, 05/13, stopped prematurely due to SVT/Vtach - SLED HD on 05/15, 05/16- completed sessions without complications - Next HD tomorrow 05/18 - CMP daily - Replete electrolytes PRN - Phoslo 1334 mg PO TID - Solu-cortef 100 mg IV Q8H - Tacrolimus 4 mg PO BID- hold - Tacrolimus level elevated (6.8->4.6->8.1->23.7)- continue to monitor - Nephrology consulted (Ghanshyam)- suspect Tacrolimus level elevated due to starting diltiazem, discontinuing ethambutol Endo: T2DM - Maintain euglycemia - Hypoglycemia protocol - Accuchecks ACHS with low dose regular ISS Hypothyroidism - TSH improved (42.6->19.3->4.03), free T4 low (0.45), total T4 low (1.22) - Thyroid Abs not detected - Synthroid to 200 mcg IV daily - Endocrinology consulted (Cam) Heme: Thrombocytopenia - Plts decreasing (66) - Hold ppx heparin - HIT Abs pending Coagulopathy - PT/INR/PTT improved- s/p 4u FFP on 05/12 and Vit K 10 mg IV x 3 days - Fibrinogen wnl (235), and fibrinogen degradation products >40 - Monitor coags- cryoprecip if fibrinogen <150 - Venous Dopplers LE: no DVT Anemia - Anemic at BL- stable s/p 1u PRBC on 05/12 - FOBT negative - Monitor CBC - Folic acid 1 mg PO daily - Thiamine 200 mg IV Q8H ID: Septic shock- improved form initial presentation, now worsening sepsis with concern for hospital acquired PNA - Temp 88.6 on admission, improving (96-97) - Warming blanket - Leukocytosis, worsening- 36 bands - Lactate wnl - Procal 3.68 - Sputum Cx: ESBL - Blood, Urine Cx no growth - Repeat Cx pending - MRSA screen negative - HIV negative - C. 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 - L knee XR: moderate suprapatellar effusion and soft tissue swelling - Rifampin 600 mg PO daily - Isoniazid 300 mg PO daily - Vit B6 50 mg PO daily - Ortho consulted (La)- no procedures indicated at this time, rec plastics - ID consulted (Charity)- continue dual TB therapy Integumentary: Desquamating rash- improving - Mucous membranes NOT involved - Folic acid 1 mg PO daily - Thiamine 200 mg IV Q8H - Cyanocobalmin 1000 mcg PO daily - Vit A&D ointment - Collagenase - Lac-hydrin - Wound care consult PPx: VTE: contraindicated due to decreasing Plts, skin inflammation GI: PTX 40 mg PO daily PT/OT/ST- OOB to chair Code status: DNR/DNI (POLST) Palliative consult- patient and family initially agreeable to hospice eval Hospice eval- patient and family now willing to pursue further treatment but still DNR/DNI Case discussed with attending, Dr. Bond. PGY-1 Natasha Khan D.O. <Sarthak Bond S - Last Filed: 05/17/18 17:30> CCU Objective - Vital Signs / Intake & Output Vital Signs (Last 4 hours): Vital Signs Pulse Resp BP Pulse Ox 05/17/18 16:00 91 H 14 100 05/17/18 15:54 90 15 145/97 H 100 05/17/18 15:52 90 05/17/18 15:00 89 16 100 05/17/18 14:56 90 15 146/86 100 05/17/18 14:00 89 13 100 05/17/18 13:54 93 H 14 123/71 Intake and Output (Last 8hrs): Intake & Output 05/17/18 05/17/18 05/17/18 06:59 14:59 22:59 Intake Total 140 440 10 Balance 140 440 10 Weight 120 lb 9.6 oz Intake: Intake, IV Amount 140 440 10 Right 140 440 10 Right Femoral Side-Port 0 - Medications Active Medications: Active Medications Generic Name Dose Route Start Last Admin Trade Name Freq PRN Reason Stop Dose Admin Albumin Human 37.5 gm 05/12/18 16:00 Albumin Human 25% (12.5 Gm/50 Ml) IV DAILY PRN PER HD IF SBP IS LESS THAN 90 Albumin Human 12.5 gm 05/16/18 11:47 Albumin Human 25% (12.5 Gm/50 Ml) IV ONCE PRN hypotension Albuterol/Ipratropium 3 ml 05/12/18 19:00 05/17/18 15:51 Duoneb 3 Mg/0.5 Mg (3 Ml) Ud INH 3 ml RQ4 FAHEEM Administration Calcium Acetate 1,334 mg 05/12/18 13:21 05/17/18 09:12 Phoslo PO 1,334 mg TIDCC FAHEEM Administration Collagenase 0 gm 05/11/18 11:00 05/17/18 10:38 Santyl TOP 1 oin DAILY FAHEEM Administration Cyanocobalamin 1,000 mcg 05/12/18 10:00 05/17/18 09:14 Vitamin B12 1000 Mcg Tab PO 1,000 mcg DAILY FAHEEM Administration Dextrose 0 ml 05/08/18 17:53 05/16/18 21:23 Dextrose 50% Inj IV 50 ml STAT PRN Administration Hypoglycemia Protocol Protocol Dextrose 0 gm 05/08/18 17:53 Glutose 15 PO ONCE PRN Hypoglycemia Protocol Protocol Diltiazem HCl 180 mg 05/14/18 10:00 05/17/18 09:12 Cardizem Cd PO 180 mg DAILY FAHEEM Administration Folic Acid 1 mg 05/09/18 10:00 05/17/18 09:12 Folic Acid PO 1 mg DAILY FAHEEM Administration Glucagon 0 mg 05/08/18 17:53 Glucagen Diagnostic Kit IM STAT PRN Hypoglycemia Protocol Protocol Heparin Sodium (Porcine) 5,000 units 05/14/18 11:00 05/16/18 10:41 Heparin SC Not Given Q12 FAHEEM Hydrocortisone Sodium Succinate 100 mg 05/16/18 10:45 05/17/18 12:14 Solu-Cortef IV 100 mg Q8H FAHEEM Administration Daptomycin 300 mg/ Sodium 100 mls @ 200 mls/hr 05/10/18 18:30 05/16/18 18:03 Chloride IV 200 mls/hr Q48H FAHEEM Administration Micafungin Sodium 100 mg/ 100 mls @ 100 mls/hr 05/10/18 20:00 05/16/18 20:45 Sodium Chloride IV 100 mls/hr Q24H FAHEEM Administration Protocol Phenylephrine HCl 30 mg/ 253 mls @ 20.24 mls/hr 05/13/18 17:00 05/13/18 18:30 Dextrose IV 0 mcg/min .[id number] PRN 0 mls/hr TITRATE PER MD ORDER Titration Protocol 40 MCG/MIN Meropenem 500 mg/ Sodium 100 mls @ 100 mls/hr 05/14/18 23:00 05/17/18 12:13 Chloride IVPB 100 mls/hr Q12H FAHEEM Administration Protocol Dextrose 500 mls @ 10 mls/hr 05/17/18 07:00 Dextrose 10% In Water IV .Q24H FAHEEM Insulin Human Regular 0 unit 05/16/18 16:50 05/17/18 13:13 Novolin R SC Not Given ACHS FAHEEM Protocol Isoniazid 300 mg 05/15/18 12:00 05/17/18 12:14 Niazid PO 300 mg DAILY FAHEEM Administration Protocol Lactic Acid 0 gm 05/12/18 07:00 05/17/18 14:00 Lac-Hydrin 12% Lotion (225 G) EXT 1 applic Q8 FAHEEM Administration Levothyroxine Sodium 200 mcg 05/17/18 06:00 05/17/18 06:26 Levothyroxine IVP 200 mcg Q24H FAHEEM Administration Multivitamins 1 tab 05/15/18 13:00 05/16/18 14:01 Hexavitamin PO Not Given DAILY FAHEEM Pantoprazole Sodium 40 mg 05/12/18 21:00 05/17/18 09:11 Protonix Inj IVP 40 mg Q12H FAHEEM Administration Pyridoxine HCl 50 mg 05/09/18 10:00 05/17/18 09:14 Vitamin B6 50 Mg Tab PO 50 mg DAILY FAHEEM Administration Rifampin 600 mg 05/15/18 12:00 05/17/18 09:13 Rifampin Cap PO 600 mg DAILY FAHEEM Administration Protocol Tacrolimus 4 mg 05/15/18 11:35 05/17/18 10:16 Prograf Cap PO Not Given BID FAHEEM Thiamine HCl 200 mg 05/11/18 09:45 05/17/18 09:11 Vitamin B1 Inj IV 200 mg Q8H FAHEEM Administration Verapamil HCl 2.5 mg 05/13/18 16:52 05/15/18 21:00 Verapamil Inj IVP 2.5 mg Q6H PRN Administration Heart rate Vitamin A 0 ea 05/11/18 18:00 05/17/18 09:12 Vitamin A & D Oint Ud Foilpak TOP 1 ea BID FAHEEM Administration - Patient Studies Lab Studies: Lab Studies 05/17/18 05/17/18 05/17/18 Range/Units 12:22 11:12 08:27 WBC (4.8-10.8) K/uL RBC (4.40-5.90) Mil/uL Hgb (12.0-18.0) g/dL Hct (35.0-51.0) % MCV (80.0-94.0) fL MCH (27.0-31.0) pg MCHC (33.0-37.0) g/dL RDW (11.5-14.5) % Plt Count (130-400) K/uL MPV (7.2-11.7) fL Neut % (Auto) (50.0-75.0) % Lymph % (Auto) (20.0-40.0) % [place] % (Auto) (0.0-10.0) % Eos % (Auto) (0.0-4.0) % Baso % (Auto) (0.0-2.0) % Neut # (Auto) (1.8-7.0) K/uL Lymph # (Auto) (1.0-4.3) K/uL [place] # (Auto) (0.0-0.8) K/uL Eos # (Auto) (0.0-0.7) K/uL Baso # (Auto) (0.0-0.2) K/uL Neutrophils % (Manual) (50-75) % Band Neutrophils % (0-2) % Lymphocytes % (Manual) (20-40) % Monocytes % (Manual) (0-10) % Platelet Estimate (NORMAL) Polychromasia Hypochromasia (manual) Anisocytosis (manual) Macrocytosis (manual) Target Cells Ovalocytes Schistocytes PT (9.7-12.2) SECONDS INR APTT (21-34) SECONDS Puncture Site Rra pCO2 70 H (35-45) mm/Hg pO2 37 L* (80-100) mm/Hg HCO3 22.0 (21-28) mmol/L ABG pH 7.20 L (7.35-7.45) ABG Total CO2 29.5 H (22-28) mmol/L ABG O2 Saturation 73.3 L (95-98) % ABG Base Excess -2.3 L (-2.0-3.0) mmol/L Nehemiah Test Pos ABG Potassium 4.7 (3.6-5.2) mmol/L A-a O2 Difference 589.0 mm/Hg Respiratory Index 15.9 Glucose 140 H (75-110) mg/dl Lactate 1.7 (0.7-2.1) mmol/L Vent Mode Bipap FiO2 100.0 % Inspiratory BiPAP 12 Expiratory BiPAP 5 Crit Value Called To Dr bond Crit Value Called By Florencio ryan manager mobility Crit Value Read Back Y Blood Gas Notified Time 900 Sodium 144.0 (132-148) mmol/L Potassium (3.6-5.2) mmol/L Chloride 113.0 H (98-107) mmol/L Carbon Dioxide (22-30) mmol/L Anion Gap (10-20) BUN (9-20) mg/dL Creatinine (0.8-1.5) mg/dL Est GFR ( Amer) Est GFR (Non-Af Amer) POC Glucose (mg/dL) 139 H (65-110) mg/dL Random Glucose (75-110) mg/dL Calcium (8.6-10.4) mg/dl Phosphorus (2.5-4.5) mg/dL Magnesium (1.6-2.3) mg/dL Total Bilirubin (0.2-1.3) mg/dL AST (17-59) U/L ALT (21-72) U/L Alkaline Phosphatase (38-126) U/L Total Protein (6.3-8.3) g/dL Albumin (3.5-5.0) g/dL Globulin (2.2-3.9) gm/dL Albumin/Globulin Ratio (1.0-2.1) Thyroxine (T4) (5.5-11.0) ug/dL TSH 3rd Generation (0.46-4.68) mIU/L Arterial Blood Potassium 4.7 (3.6-5.2) mmol/L Urine Color Jing (YELLOW) Urine Clarity Hazy (Clear) Urine pH 5.0 (5.0-8.0) Ur Specific Holt 1.025 (1.003-1.030) Urine Protein 2+ H (NEGATIVE) mg/dL Urine Glucose (UA) 1+ H (Normal) mg/dL Urine Ketones Negative (NEGATIVE) mg/dL Urine Blood 3+ H (NEGATIVE) Urine Nitrate Negative (NEGATIVE) Urine Bilirubin Negative (NEGATIVE) Urine Urobilinogen Normal (0.2-1.0) mg/dL Ur Leukocyte Esterase Trace (Negative) Vicente/uL Urine WBC (Auto) 3 (0-5) /hpf Urine RBC (Auto) 296 H (0-3) /hpf Ur Squamous Epith Cells 4 (0-5) /hpf Amorphous Sediment Rare H (<OCC) /ul Urine Bacteria Few H (<OCC) Hyaline Casts 3-5 H (0-2) /lpf Urine Yeast (Budding) Many H (NEGATIVE) /hpf Tacrolimus (LC/MS/MS) (5.0-20.0) mcg/L 05/17/18 05/17/18 05/17/18 Range/Units 07:25 04:38 04:38 WBC 21.3 H D (4.8-10.8) K/uL RBC 3.24 L (4.40-5.90) Mil/uL Hgb 9.5 L (12.0-18.0) g/dL Hct 30.4 L (35.0-51.0) % MCV 93.8 D (80.0-94.0) fL MCH 29.4 (27.0-31.0) pg MCHC 31.3 L (33.0-37.0) g/dL RDW 24.7 H (11.5-14.5) % Plt Count 66 L (130-400) K/uL MPV 9.4 (7.2-11.7) fL Neut % (Auto) 96.6 H (50.0-75.0) % Lymph % (Auto) 1.7 L (20.0-40.0) % [place] % (Auto) 1.6 (0.0-10.0) % Eos % (Auto) 0.0 (0.0-4.0) % Baso % (Auto) 0.1 (0.0-2.0) % Neut # (Auto) 20.6 H (1.8-7.0) K/uL Lymph # (Auto) 0.4 L (1.0-4.3) K/uL [place] # (Auto) 0.3 (0.0-0.8) K/uL Eos # (Auto) 0.0 (0.0-0.7) K/uL Baso # (Auto) 0.0 (0.0-0.2) K/uL Neutrophils % (Manual) 56 (50-75) % Band Neutrophils % 36 H* (0-2) % Lymphocytes % (Manual) 4 L (20-40) % Monocytes % (Manual) 4 (0-10) % Platelet Estimate Decreased L (NORMAL) Polychromasia Slight Hypochromasia (manual) Moderate Anisocytosis (manual) Moderate Macrocytosis (manual) Slight Target Cells Slight Ovalocytes Slight Schistocytes Slight PT (9.7-12.2) SECONDS INR APTT (21-34) SECONDS Puncture Site pCO2 (35-45) mm/Hg pO2 (80-100) mm/Hg HCO3 (21-28) mmol/L ABG pH (7.35-7.45) ABG Total CO2 (22-28) mmol/L ABG O2 Saturation (95-98) % ABG Base Excess (-2.0-3.0) mmol/L Nehemiah Test ABG Potassium (3.6-5.2) mmol/L A-a O2 Difference mm/Hg Respiratory Index Glucose (75-110) mg/dl Lactate (0.7-2.1) mmol/L Vent Mode FiO2 % Inspiratory BiPAP Expiratory BiPAP Crit Value Called To Crit Value Called By Crit Value Read Back Blood Gas Notified Time Sodium 142 (132-148) mmol/L Potassium 5.1 (3.6-5.2) mmol/L Chloride 105 (98-107) mmol/L Carbon Dioxide 28 (22-30) mmol/L Anion Gap 14 (10-20) BUN 22 H (9-20) mg/dL Creatinine 1.9 H (0.8-1.5) mg/dL Est GFR ( Amer) 42 Est GFR (Non-Af Amer) 35 POC Glucose (mg/dL) 92 (65-110) mg/dL Random Glucose 160 H (75-110) mg/dL Calcium 8.0 L (8.6-10.4) mg/dl Phosphorus 4.4 (2.5-4.5) mg/dL Magnesium 1.7 (1.6-2.3) mg/dL Total Bilirubin 1.4 H (0.2-1.3) mg/dL AST 40 (17-59) U/L ALT 62 (21-72) U/L Alkaline Phosphatase 76 (38-126) U/L Total Protein 5.5 L (6.3-8.3) g/dL Albumin 3.0 L (3.5-5.0) g/dL Globulin 2.5 (2.2-3.9) gm/dL Albumin/Globulin Ratio 1.2 (1.0-2.1) Thyroxine (T4) 1.01 L (5.5-11.0) ug/dL TSH 3rd Generation 4.26 (0.46-4.68) mIU/L Arterial Blood Potassium (3.6-5.2) mmol/L Urine Color (YELLOW) Urine Clarity (Clear) Urine pH (5.0-8.0) Ur Specific Holt (1.003-1.030) Urine Protein (NEGATIVE) mg/dL Urine Glucose (UA) (Normal) mg/dL Urine Ketones (NEGATIVE) mg/dL Urine Blood (NEGATIVE) Urine Nitrate (NEGATIVE) Urine Bilirubin (NEGATIVE) Urine Urobilinogen (0.2-1.0) mg/dL Ur Leukocyte Esterase (Negative) Vicente/uL Urine WBC (Auto) (0-5) /hpf Urine RBC (Auto) (0-3) /hpf Ur Squamous Epith Cells (0-5) /hpf Amorphous Sediment (<OCC) /ul Urine Bacteria (<OCC) Hyaline Casts (0-2) /lpf Urine Yeast (Budding) (NEGATIVE) /hpf Tacrolimus (LC/MS/MS) (5.0-20.0) mcg/L 05/17/18 05/17/18 05/16/18 Range/Units 04:38 04:27 23:46 WBC (4.8-10.8) K/uL RBC (4.40-5.90) Mil/uL Hgb (12.0-18.0) g/dL Hct (35.0-51.0) % MCV (80.0-94.0) fL MCH (27.0-31.0) pg MCHC (33.0-37.0) g/dL RDW (11.5-14.5) % Plt Count (130-400) K/uL MPV (7.2-11.7) fL Neut % (Auto) (50.0-75.0) % Lymph % (Auto) (20.0-40.0) % [place] % (Auto) (0.0-10.0) % Eos % (Auto) (0.0-4.0) % Baso % (Auto) (0.0-2.0) % Neut # (Auto) (1.8-7.0) K/uL Lymph # (Auto) (1.0-4.3) K/uL [place] # (Auto) (0.0-0.8) K/uL Eos # (Auto) (0.0-0.7) K/uL Baso # (Auto) (0.0-0.2) K/uL Neutrophils % (Manual) (50-75) % Band Neutrophils % (0-2) % Lymphocytes % (Manual) (20-40) % Monocytes % (Manual) (0-10) % Platelet Estimate (NORMAL) Polychromasia Hypochromasia (manual) Anisocytosis (manual) Macrocytosis (manual) Target Cells Ovalocytes Schistocytes PT 12.2 (9.7-12.2) SECONDS INR 1.1 APTT 42 H (21-34) SECONDS Puncture Site pCO2 (35-45) mm/Hg pO2 (80-100) mm/Hg HCO3 (21-28) mmol/L ABG pH (7.35-7.45) ABG Total CO2 (22-28) mmol/L ABG O2 Saturation (95-98) % ABG Base Excess (-2.0-3.0) mmol/L Nehemiah Test ABG Potassium (3.6-5.2) mmol/L A-a O2 Difference mm/Hg Respiratory Index Glucose (75-110) mg/dl Lactate (0.7-2.1) mmol/L Vent Mode FiO2 % Inspiratory BiPAP Expiratory BiPAP Crit Value Called To Crit Value Called By Crit Value Read Back Blood Gas Notified Time Sodium (132-148) mmol/L Potassium (3.6-5.2) mmol/L Chloride (98-107) mmol/L Carbon Dioxide (22-30) mmol/L Anion Gap (10-20) BUN (9-20) mg/dL Creatinine (0.8-1.5) mg/dL Est GFR ( Amer) Est GFR (Non-Af Amer) POC Glucose (mg/dL) 143 H 138 H (65-110) mg/dL Random Glucose (75-110) mg/dL Calcium (8.6-10.4) mg/dl Phosphorus (2.5-4.5) mg/dL Magnesium (1.6-2.3) mg/dL Total Bilirubin (0.2-1.3) mg/dL AST (17-59) U/L ALT (21-72) U/L Alkaline Phosphatase (38-126) U/L Total Protein (6.3-8.3) g/dL Albumin (3.5-5.0) g/dL Globulin (2.2-3.9) gm/dL Albumin/Globulin Ratio (1.0-2.1) Thyroxine (T4) (5.5-11.0) ug/dL TSH 3rd Generation (0.46-4.68) mIU/L Arterial Blood Potassium (3.6-5.2) mmol/L Urine Color (YELLOW) Urine Clarity (Clear) Urine pH (5.0-8.0) Ur Specific Holt (1.003-1.030) Urine Protein (NEGATIVE) mg/dL Urine Glucose (UA) (Normal) mg/dL Urine Ketones (NEGATIVE) mg/dL Urine Blood (NEGATIVE) Urine Nitrate (NEGATIVE) Urine Bilirubin (NEGATIVE) Urine Urobilinogen (0.2-1.0) mg/dL Ur Leukocyte Esterase (Negative) Vicente/uL Urine WBC (Auto) (0-5) /hpf Urine RBC (Auto) (0-3) /hpf Ur Squamous Epith Cells (0-5) /hpf Amorphous Sediment (<OCC) /ul Urine Bacteria (<OCC) Hyaline Casts (0-2) /lpf Urine Yeast (Budding) (NEGATIVE) /hpf Tacrolimus (LC/MS/MS) (5.0-20.0) mcg/L 05/16/18 05/16/18 05/16/18 Range/Units 21:59 21:17 21:15 WBC (4.8-10.8) K/uL RBC (4.40-5.90) Mil/uL Hgb (12.0-18.0) g/dL Hct (35.0-51.0) % MCV (80.0-94.0) fL MCH (27.0-31.0) pg MCHC (33.0-37.0) g/dL RDW (11.5-14.5) % Plt Count (130-400) K/uL MPV (7.2-11.7) fL Neut % (Auto) (50.0-75.0) % Lymph % (Auto) (20.0-40.0) % [place] % (Auto) (0.0-10.0) % Eos % (Auto) (0.0-4.0) % Baso % (Auto) (0.0-2.0) % Neut # (Auto) (1.8-7.0) K/uL Lymph # (Auto) (1.0-4.3) K/uL [place] # (Auto) (0.0-0.8) K/uL Eos # (Auto) (0.0-0.7) K/uL Baso # (Auto) (0.0-0.2) K/uL Neutrophils % (Manual) (50-75) % Band Neutrophils % (0-2) % Lymphocytes % (Manual) (20-40) % Monocytes % (Manual) (0-10) % Platelet Estimate (NORMAL) Polychromasia Hypochromasia (manual) Anisocytosis (manual) Macrocytosis (manual) Target Cells Ovalocytes Schistocytes PT (9.7-12.2) SECONDS INR APTT (21-34) SECONDS Puncture Site pCO2 (35-45) mm/Hg pO2 (80-100) mm/Hg HCO3 (21-28) mmol/L ABG pH (7.35-7.45) ABG Total CO2 (22-28) mmol/L ABG O2 Saturation (95-98) % ABG Base Excess (-2.0-3.0) mmol/L Nehemiah Test ABG Potassium (3.6-5.2) mmol/L A-a O2 Difference mm/Hg Respiratory Index Glucose (75-110) mg/dl Lactate (0.7-2.1) mmol/L Vent Mode FiO2 % Inspiratory BiPAP Expiratory BiPAP Crit Value Called To Crit Value Called By Crit Value Read Back Blood Gas Notified Time Sodium (132-148) mmol/L Potassium (3.6-5.2) mmol/L Chloride (98-107) mmol/L Carbon Dioxide (22-30) mmol/L Anion Gap (10-20) BUN (9-20) mg/dL Creatinine (0.8-1.5) mg/dL Est GFR ( Amer) Est GFR (Non-Af Amer) POC Glucose (mg/dL) 136 H 60 L 66 (65-110) mg/dL Random Glucose (75-110) mg/dL Calcium (8.6-10.4) mg/dl Phosphorus (2.5-4.5) mg/dL Magnesium (1.6-2.3) mg/dL Total Bilirubin (0.2-1.3) mg/dL AST (17-59) U/L ALT (21-72) U/L Alkaline Phosphatase (38-126) U/L Total Protein (6.3-8.3) g/dL Albumin (3.5-5.0) g/dL Globulin (2.2-3.9) gm/dL Albumin/Globulin Ratio (1.0-2.1) Thyroxine (T4) (5.5-11.0) ug/dL TSH 3rd Generation (0.46-4.68) mIU/L Arterial Blood Potassium (3.6-5.2) mmol/L Urine Color (YELLOW) Urine Clarity (Clear) Urine pH (5.0-8.0) Ur Specific Holt (1.003-1.030) Urine Protein (NEGATIVE) mg/dL Urine Glucose (UA) (Normal) mg/dL Urine Ketones (NEGATIVE) mg/dL Urine Blood (NEGATIVE) Urine Nitrate (NEGATIVE) Urine Bilirubin (NEGATIVE) Urine Urobilinogen (0.2-1.0) mg/dL Ur Leukocyte Esterase (Negative) Vicente/uL Urine WBC (Auto) (0-5) /hpf Urine RBC (Auto) (0-3) /hpf Ur Squamous Epith Cells (0-5) /hpf Amorphous Sediment (<OCC) /ul Urine Bacteria (<OCC) Hyaline Casts (0-2) /lpf Urine Yeast (Budding) (NEGATIVE) /hpf Tacrolimus (LC/MS/MS) (5.0-20.0) mcg/L 05/16/18 05/16/18 05/16/18 Range/Units 16:14 11:51 07:52 WBC (4.8-10.8) K/uL RBC (4.40-5.90) Mil/uL Hgb (12.0-18.0) g/dL Hct (35.0-51.0) % MCV (80.0-94.0) fL MCH (27.0-31.0) pg MCHC (33.0-37.0) g/dL RDW (11.5-14.5) % Plt Count (130-400) K/uL MPV (7.2-11.7) fL Neut % (Auto) (50.0-75.0) % Lymph % (Auto) (20.0-40.0) % [place] % (Auto) (0.0-10.0) % Eos % (Auto) (0.0-4.0) % Baso % (Auto) (0.0-2.0) % Neut # (Auto) (1.8-7.0) K/uL Lymph # (Auto) (1.0-4.3) K/uL [place] # (Auto) (0.0-0.8) K/uL Eos # (Auto) (0.0-0.7) K/uL Baso # (Auto) (0.0-0.2) K/uL Neutrophils % (Manual) (50-75) % Band Neutrophils % (0-2) % Lymphocytes % (Manual) (20-40) % Monocytes % (Manual) (0-10) % Platelet Estimate (NORMAL) Polychromasia Hypochromasia (manual) Anisocytosis (manual) Macrocytosis (manual) Target Cells Ovalocytes Schistocytes PT (9.7-12.2) SECONDS INR APTT (21-34) SECONDS Puncture Site pCO2 (35-45) mm/Hg pO2 (80-100) mm/Hg HCO3 (21-28) mmol/L ABG pH (7.35-7.45) ABG Total CO2 (22-28) mmol/L ABG O2 Saturation (95-98) % ABG Base Excess (-2.0-3.0) mmol/L Nehemiah Test ABG Potassium (3.6-5.2) mmol/L A-a O2 Difference mm/Hg Respiratory Index Glucose (75-110) mg/dl Lactate (0.7-2.1) mmol/L Vent Mode FiO2 % Inspiratory BiPAP Expiratory BiPAP Crit Value Called To Crit Value Called By Crit Value Read Back Blood Gas Notified Time Sodium (132-148) mmol/L Potassium (3.6-5.2) mmol/L Chloride (98-107) mmol/L Carbon Dioxide (22-30) mmol/L Anion Gap (10-20) BUN (9-20) mg/dL Creatinine (0.8-1.5) mg/dL Est GFR ( Amer) Est GFR (Non-Af Amer) POC Glucose (mg/dL) 82 111 H (65-110) mg/dL Random Glucose (75-110) mg/dL Calcium (8.6-10.4) mg/dl Phosphorus (2.5-4.5) mg/dL Magnesium (1.6-2.3) mg/dL Total Bilirubin (0.2-1.3) mg/dL AST (17-59) U/L ALT (21-72) U/L Alkaline Phosphatase (38-126) U/L Total Protein (6.3-8.3) g/dL Albumin (3.5-5.0) g/dL Globulin (2.2-3.9) gm/dL Albumin/Globulin Ratio (1.0-2.1) Thyroxine (T4) (5.5-11.0) ug/dL TSH 3rd Generation (0.46-4.68) mIU/L Arterial Blood Potassium (3.6-5.2) mmol/L Urine Color (YELLOW) Urine Clarity (Clear) Urine pH (5.0-8.0) Ur Specific Holt (1.003-1.030) Urine Protein (NEGATIVE) mg/dL Urine Glucose (UA) (Normal) mg/dL Urine Ketones (NEGATIVE) mg/dL Urine Blood (NEGATIVE) Urine Nitrate (NEGATIVE) Urine Bilirubin (NEGATIVE) Urine Urobilinogen (0.2-1.0) mg/dL Ur Leukocyte Esterase (Negative) Vicente/uL Urine WBC (Auto) (0-5) /hpf Urine RBC (Auto) (0-3) /hpf Ur Squamous Epith Cells (0-5) /hpf Amorphous Sediment (<OCC) /ul Urine Bacteria (<OCC) Hyaline Casts (0-2) /lpf Urine Yeast (Budding) (NEGATIVE) /hpf Tacrolimus (LC/MS/MS) 18.7 (5.0-20.0) mcg/L 05/15/18 Range/Units 06:27 WBC (4.8-10.8) K/uL RBC (4.40-5.90) Mil/uL Hgb (12.0-18.0) g/dL Hct (35.0-51.0) % MCV (80.0-94.0) fL MCH (27.0-31.0) pg MCHC (33.0-37.0) g/dL RDW (11.5-14.5) % Plt Count (130-400) K/uL MPV (7.2-11.7) fL Neut % (Auto) (50.0-75.0) % Lymph % (Auto) (20.0-40.0) % [place] % (Auto) (0.0-10.0) % Eos % (Auto) (0.0-4.0) % Baso % (Auto) (0.0-2.0) % Neut # (Auto) (1.8-7.0) K/uL Lymph # (Auto) (1.0-4.3) K/uL [place] # (Auto) (0.0-0.8) K/uL Eos # (Auto) (0.0-0.7) K/uL Baso # (Auto) (0.0-0.2) K/uL Neutrophils % (Manual) (50-75) % Band Neutrophils % (0-2) % Lymphocytes % (Manual) (20-40) % Monocytes % (Manual) (0-10) % Platelet Estimate (NORMAL) Polychromasia Hypochromasia (manual) Anisocytosis (manual) Macrocytosis (manual) Target Cells Ovalocytes Schistocytes PT (9.7-12.2) SECONDS INR APTT (21-34) SECONDS Puncture Site pCO2 (35-45) mm/Hg pO2 (80-100) mm/Hg HCO3 (21-28) mmol/L ABG pH (7.35-7.45) ABG Total CO2 (22-28) mmol/L ABG O2 Saturation (95-98) % ABG Base Excess (-2.0-3.0) mmol/L Nehemiah Test ABG Potassium (3.6-5.2) mmol/L A-a O2 Difference mm/Hg Respiratory Index Glucose (75-110) mg/dl Lactate (0.7-2.1) mmol/L Vent Mode FiO2 % Inspiratory BiPAP Expiratory BiPAP Crit Value Called To Crit Value Called By Crit Value Read Back Blood Gas Notified Time Sodium (132-148) mmol/L Potassium (3.6-5.2) mmol/L Chloride (98-107) mmol/L Carbon Dioxide (22-30) mmol/L Anion Gap (10-20) BUN (9-20) mg/dL Creatinine (0.8-1.5) mg/dL Est GFR ( Amer) Est GFR (Non-Af Amer) POC Glucose (mg/dL) (65-110) mg/dL Random Glucose (75-110) mg/dL Calcium (8.6-10.4) mg/dl Phosphorus (2.5-4.5) mg/dL Magnesium (1.6-2.3) mg/dL Total Bilirubin (0.2-1.3) mg/dL AST (17-59) U/L ALT (21-72) U/L Alkaline Phosphatase (38-126) U/L Total Protein (6.3-8.3) g/dL Albumin (3.5-5.0) g/dL Globulin (2.2-3.9) gm/dL Albumin/Globulin Ratio (1.0-2.1) Thyroxine (T4) (5.5-11.0) ug/dL TSH 3rd Generation (0.46-4.68) mIU/L Arterial Blood Potassium (3.6-5.2) mmol/L Urine Color (YELLOW) Urine Clarity (Clear) Urine pH (5.0-8.0) Ur Specific Holt (1.003-1.030) Urine Protein (NEGATIVE) mg/dL Urine Glucose (UA) (Normal) mg/dL Urine Ketones (NEGATIVE) mg/dL Urine Blood (NEGATIVE) Urine Nitrate (NEGATIVE) Urine Bilirubin (NEGATIVE) Urine Urobilinogen (0.2-1.0) mg/dL Ur Leukocyte Esterase (Negative) Vicente/uL Urine WBC (Auto) (0-5) /hpf Urine RBC (Auto) (0-3) /hpf Ur Squamous Epith Cells (0-5) /hpf Amorphous Sediment (<OCC) /ul Urine Bacteria (<OCC) Hyaline Casts (0-2) /lpf Urine Yeast (Budding) (NEGATIVE) /hpf Tacrolimus (LC/MS/MS) 23.7 H (5.0-20.0) mcg/L Laboratory Results - last 24 hr 05/15/18 05/16/18 05/16/18 06:27 07:52 11:51 WBC RBC Hgb Hct MCV MCH MCHC RDW Plt Count MPV Neut % (Auto) Lymph % (Auto) [place] % (Auto) Eos % (Auto) Baso % (Auto) Neut # (Auto) Lymph # (Auto) [place] # (Auto) Eos # (Auto) Baso # (Auto) Neutrophils % (Manual) Band Neutrophils % Lymphocytes % (Manual) Monocytes % (Manual) Platelet Estimate Polychromasia Hypochromasia (manual) Anisocytosis (manual) Macrocytosis (manual) Target Cells Ovalocytes Schistocytes PT INR APTT Puncture Site pCO2 pO2 HCO3 ABG pH ABG Total CO2 ABG O2 Saturation ABG Base Excess Nehemiah Test ABG Potassium A-a O2 Difference Respiratory Index Glucose Lactate Vent Mode FiO2 Inspiratory BiPAP Expiratory BiPAP Crit Value Called To Crit Value Called By Crit Value Read Back Blood Gas Notified Time Sodium Potassium Chloride Carbon Dioxide Anion Gap BUN Creatinine Est GFR ( Amer) Est GFR (Non-Af Amer) POC Glucose (mg/dL) 111 H Random Glucose Calcium Phosphorus Magnesium Total Bilirubin AST ALT Alkaline Phosphatase Total Protein Albumin Globulin Albumin/Globulin Ratio Thyroxine (T4) TSH 3rd Generation Arterial Blood Potassium Urine Color Urine Clarity Urine pH Ur Specific Holt Urine Protein Urine Glucose (UA) Urine Ketones Urine Blood Urine Nitrate Urine Bilirubin Urine Urobilinogen Ur Leukocyte Esterase Urine WBC (Auto) Urine RBC (Auto) Ur Squamous Epith Cells Amorphous Sediment Urine Bacteria Hyaline Casts Urine Yeast (Budding) Tacrolimus (LC/MS/MS) 23.7 H 18.7 05/16/18 05/16/18 05/16/18 16:14 21:15 21:17 WBC RBC Hgb Hct MCV MCH MCHC RDW Plt Count MPV Neut % (Auto) Lymph % (Auto) [place] % (Auto) Eos % (Auto) Baso % (Auto) Neut # (Auto) Lymph # (Auto) [place] # (Auto) Eos # (Auto) Baso # (Auto) Neutrophils % (Manual) Band Neutrophils % Lymphocytes % (Manual) Monocytes % (Manual) Platelet Estimate Polychromasia Hypochromasia (manual) Anisocytosis (manual) Macrocytosis (manual) Target Cells Ovalocytes Schistocytes PT INR APTT Puncture Site pCO2 pO2 HCO3 ABG pH ABG Total CO2 ABG O2 Saturation ABG Base Excess Nehemiah Test ABG Potassium A-a O2 Difference Respiratory Index Glucose Lactate Vent Mode FiO2 Inspiratory BiPAP Expiratory BiPAP Crit Value Called To Crit Value Called By Crit Value Read Back Blood Gas Notified Time Sodium Potassium Chloride Carbon Dioxide Anion Gap BUN Creatinine Est GFR ( Amer) Est GFR (Non-Af Amer) POC Glucose (mg/dL) 82 66 60 L Random Glucose Calcium Phosphorus Magnesium Total Bilirubin AST ALT Alkaline Phosphatase Total Protein Albumin Globulin Albumin/Globulin Ratio Thyroxine (T4) TSH 3rd Generation Arterial Blood Potassium Urine Color Urine Clarity Urine pH Ur Specific Holt Urine Protein Urine Glucose (UA) Urine Ketones Urine Blood Urine Nitrate Urine Bilirubin Urine Urobilinogen Ur Leukocyte Esterase Urine WBC (Auto) Urine RBC (Auto) Ur Squamous Epith Cells Amorphous Sediment Urine Bacteria Hyaline Casts Urine Yeast (Budding) Tacrolimus (LC/MS/MS) 05/16/18 05/16/18 05/17/18 21:59 23:46 04:27 WBC RBC Hgb Hct MCV MCH MCHC RDW Plt Count MPV Neut % (Auto) Lymph % (Auto) [place] % (Auto) Eos % (Auto) Baso % (Auto) Neut # (Auto) Lymph # (Auto) [place] # (Auto) Eos # (Auto) Baso # (Auto) Neutrophils % (Manual) Band Neutrophils % Lymphocytes % (Manual) Monocytes % (Manual) Platelet Estimate Polychromasia Hypochromasia (manual) Anisocytosis (manual) Macrocytosis (manual) Target Cells Ovalocytes Schistocytes PT INR APTT Puncture Site pCO2 pO2 HCO3 ABG pH ABG Total CO2 ABG O2 Saturation ABG Base Excess Nehemiah Test ABG Potassium A-a O2 Difference Respiratory Index Glucose Lactate Vent Mode FiO2 Inspiratory BiPAP Expiratory BiPAP Crit Value Called To Crit Value Called By Crit Value Read Back Blood Gas Notified Time Sodium Potassium Chloride Carbon Dioxide Anion Gap BUN Creatinine Est GFR ( Amer) Est GFR (Non-Af Amer) POC Glucose (mg/dL) 136 H 138 H 143 H Random Glucose Calcium Phosphorus Magnesium Total Bilirubin AST ALT Alkaline Phosphatase Total Protein Albumin Globulin Albumin/Globulin Ratio Thyroxine (T4) TSH 3rd Generation Arterial Blood Potassium Urine Color Urine Clarity Urine pH Ur Specific Holt Urine Protein Urine Glucose (UA) Urine Ketones Urine Blood Urine Nitrate Urine Bilirubin Urine Urobilinogen Ur Leukocyte Esterase Urine WBC (Auto) Urine RBC (Auto) Ur Squamous Epith Cells Amorphous Sediment Urine Bacteria Hyaline Casts Urine Yeast (Budding) Tacrolimus (LC/MS/MS) 05/17/18 05/17/18 05/17/18 04:38 04:38 04:38 WBC 21.3 H D RBC 3.24 L Hgb 9.5 L Hct 30.4 L MCV 93.8 D MCH 29.4 MCHC 31.3 L RDW 24.7 H Plt Count 66 L MPV 9.4 Neut % (Auto) 96.6 H Lymph % (Auto) 1.7 L [place] % (Auto) 1.6 Eos % (Auto) 0.0 Baso % (Auto) 0.1 Neut # (Auto) 20.6 H Lymph # (Auto) 0.4 L [place] # (Auto) 0.3 Eos # (Auto) 0.0 Baso # (Auto) 0.0 Neutrophils % (Manual) 56 Band Neutrophils % 36 H* Lymphocytes % (Manual) 4 L Monocytes % (Manual) 4 Platelet Estimate Decreased L Polychromasia Slight Hypochromasia (manual) Moderate Anisocytosis (manual) Moderate Macrocytosis (manual) Slight Target Cells Slight Ovalocytes Slight Schistocytes Slight PT 12.2 INR 1.1 APTT 42 H Puncture Site pCO2 pO2 HCO3 ABG pH ABG Total CO2 ABG O2 Saturation ABG Base Excess Nehemiah Test ABG Potassium A-a O2 Difference Respiratory Index Glucose Lactate Vent Mode FiO2 Inspiratory BiPAP Expiratory BiPAP Crit Value Called To Crit Value Called By Crit Value Read Back Blood Gas Notified Time Sodium 142 Potassium 5.1 Chloride 105 Carbon Dioxide 28 Anion Gap 14 BUN 22 H Creatinine 1.9 H Est GFR ( Amer) 42 Est GFR (Non-Af Amer) 35 POC Glucose (mg/dL) Random Glucose 160 H Calcium 8.0 L Phosphorus 4.4 Magnesium 1.7 Total Bilirubin 1.4 H AST 40 ALT 62 Alkaline Phosphatase 76 Total Protein 5.5 L Albumin 3.0 L Globulin 2.5 Albumin/Globulin Ratio 1.2 Thyroxine (T4) 1.01 L TSH 3rd Generation 4.26 Arterial Blood Potassium Urine Color Urine Clarity Urine pH Ur Specific Holt Urine Protein Urine Glucose (UA) Urine Ketones Urine Blood Urine Nitrate Urine Bilirubin Urine Urobilinogen Ur Leukocyte Esterase Urine WBC (Auto) Urine RBC (Auto) Ur Squamous Epith Cells Amorphous Sediment Urine Bacteria Hyaline Casts Urine Yeast (Budding) Tacrolimus (LC/MS/MS) 05/17/18 05/17/18 05/17/18 07:25 08:27 11:12 WBC RBC Hgb Hct MCV MCH MCHC RDW Plt Count MPV Neut % (Auto) Lymph % (Auto) [place] % (Auto) Eos % (Auto) Baso % (Auto) Neut # (Auto) Lymph # (Auto) [place] # (Auto) Eos # (Auto) Baso # (Auto) Neutrophils % (Manual) Band Neutrophils % Lymphocytes % (Manual) Monocytes % (Manual) Platelet Estimate Polychromasia Hypochromasia (manual) Anisocytosis (manual) Macrocytosis (manual) Target Cells Ovalocytes Schistocytes PT INR APTT Puncture Site Rra pCO2 70 H pO2 37 L* HCO3 22.0 ABG pH 7.20 L ABG Total CO2 29.5 H ABG O2 Saturation 73.3 L ABG Base Excess -2.3 L Nehemiah Test Pos ABG Potassium 4.7 A-a O2 Difference 589.0 Respiratory Index 15.9 Glucose 140 H Lactate 1.7 Vent Mode Bipap FiO2 100.0 Inspiratory BiPAP 12 Expiratory BiPAP 5 Crit Value Called To Dr bond Crit Value Called By Florencio ryan manager mobility Crit Value Read Back Y Blood Gas Notified Time 900 Sodium 144.0 Potassium Chloride 113.0 H Carbon Dioxide Anion Gap BUN Creatinine Est GFR ( Amer) Est GFR (Non-Af Amer) POC Glucose (mg/dL) 92 139 H Random Glucose Calcium Phosphorus Magnesium Total Bilirubin AST ALT Alkaline Phosphatase Total Protein Albumin Globulin Albumin/Globulin Ratio Thyroxine (T4) TSH 3rd Generation Arterial Blood Potassium 4.7 Urine Color Urine Clarity Urine pH Ur Specific Holt Urine Protein Urine Glucose (UA) Urine Ketones Urine Blood Urine Nitrate Urine Bilirubin Urine Urobilinogen Ur Leukocyte Esterase Urine WBC (Auto) Urine RBC (Auto) Ur Squamous Epith Cells Amorphous Sediment Urine Bacteria Hyaline Casts Urine Yeast (Budding) Tacrolimus (LC/MS/MS) 05/17/18 12:22 WBC RBC Hgb Hct MCV MCH MCHC RDW Plt Count MPV Neut % (Auto) Lymph % (Auto) [place] % (Auto) Eos % (Auto) Baso % (Auto) Neut # (Auto) Lymph # (Auto) [place] # (Auto) Eos # (Auto) Baso # (Auto) Neutrophils % (Manual) Band Neutrophils % Lymphocytes % (Manual) Monocytes % (Manual) Platelet Estimate Polychromasia Hypochromasia (manual) Anisocytosis (manual) Macrocytosis (manual) Target Cells Ovalocytes Schistocytes PT INR APTT Puncture Site pCO2 pO2 HCO3 ABG pH ABG Total CO2 ABG O2 Saturation ABG Base Excess Nehemiah Test ABG Potassium A-a O2 Difference Respiratory Index Glucose Lactate Vent Mode FiO2 Inspiratory BiPAP Expiratory BiPAP Crit Value Called To Crit Value Called By Crit Value Read Back Blood Gas Notified Time Sodium Potassium Chloride Carbon Dioxide Anion Gap BUN Creatinine Est GFR ( Amer) Est GFR (Non-Af Amer) POC Glucose (mg/dL) Random Glucose Calcium Phosphorus Magnesium Total Bilirubin AST ALT Alkaline Phosphatase Total Protein Albumin Globulin Albumin/Globulin Ratio Thyroxine (T4) TSH 3rd Generation Arterial Blood Potassium Urine Color Jing Urine Clarity Hazy Urine pH 5.0 Ur Specific Holt 1.025 Urine Protein 2+ H Urine Glucose (UA) 1+ H Urine Ketones Negative Urine Blood 3+ H Urine Nitrate Negative Urine Bilirubin Negative Urine Urobilinogen Normal Ur Leukocyte Esterase Trace Urine WBC (Auto) 3 Urine RBC (Auto) 296 H Ur Squamous Epith Cells 4 Amorphous Sediment Rare H Urine Bacteria Few H Hyaline Casts 3-5 H Urine Yeast (Budding) Many H Tacrolimus (LC/MS/MS) Critical Care Progress Note - Nutrition Nutrition: Nutrition Category Date Time Status Pureed [Dysphagia/Modified Consistency Diet] [DIET] Diets 05/15/18 Lunch Active Attending/Attestation - Attestation I have personally seen and examined this patient.: Yes I have fully participated in the care of the patient.: Yes I have reviewed all pertinent clinical information: Yes Notes (Text): 05/17/18 17:29 patient seen and examined in the intensive care unit. Patient remains on BiPAP with increasing shortness of breath Elevated white count with bandemia noted Bilateral lung infiltrate Pancultures done Continue antibiotics Continue hemodialysis Prognosis poor
[2018-05-17] MEDS: (Novolin R) Insulin Human Regular 100 units/ml vial SC SCH ×4 (08:37→22:27)
[2018-05-17 09:00] LABS: ABG ALLEN TEST POS; ARTERIAL BLOOD GAS O2 SAT 73.3 % (95-98); ARTERIAL BLOOD GAS PCO2 70 mm/Hg (35-45); ARTERIAL BLOOD GAS PO2 37 mm/Hg (80-100); ARTERIAL BLOOD GAS TCO2 29.5 mmol/L (22-28)
[2018-05-17] MEDS ORDERED: Magnesium Sulfate 1 gm in D5W 1 GM/100 ML BAG IVPB ONE (09:00)
[2018-05-17] MEDS: diltiaZEM 180 mg/24 Hours CD Cap PO SCH (09:12)
[2018-05-17] MEDS: Vitamins A & D Oint UD Foilpak TOP SCH ×2 (09:12→18:26)
--- NOTE | 2018-05-17 09:15 | RAD ---
Date of service: 05/17/2018 HISTORY: ARDS COMPARISON: Portable chest 05/16/2018. FINDINGS: LUNGS: Heterogeneous infiltrates are unchanged at the right and appears somewhat diminished at the left spiculate at the lateral apex. PLEURA: Mild bilateral pleural effusions are unchanged. No pneumothorax bilaterally. CARDIOVASCULAR: Calcific atherosclerotic changes are seen related to the thoracic aorta. Cardiomegaly appears stable. No definitive pulmonary vascular congestion AICD/pacemaker reiterated. OSSEOUS STRUCTURES: No significant abnormalities. VISUALIZED UPPER ABDOMEN: Normal. OTHER FINDINGS: None. IMPRESSION: Bilateral heterogeneous infiltrates appear slightly improved at the left and unchanged at the right small bilateral pleural effusions reiterated.
[2018-05-17] MEDS: Collagenase 250 Units/gm Ointment(30 gm) TOP SCH (10:38)
[2018-05-17] MEDS: Meropenem 500 MG in Sodium Chloride 0.9% 100 ML IVPB SCH ×2 (12:13→22:29)
[2018-05-17 12:39] LABS: SQUAMOUS EPITHIAL 4 /hpf (0-5); URINE AMORPHOUS SEDIMENT RARE /ul (<OCC); URINE BACTERIA FEW (<OCC); URINE BILIRUBIN NEGATIVE (NEGATIVE); URINE BLOOD 3+ (NEGATIVE); URINE CLARITY Hazy (Clear); URINE COLOR Amber (YELLOW); URINE GLUCOSE (UA) 1+ mg/dL (Normal); URINE LEUKOCYTE ESTERASE TRACE Leu/uL (Negative); URINE PROTEIN 2+ mg/dL (NEGATIVE); URINE UROBILINOGEN NORMAL mg/dL (0.2-1.0)
--- NOTE | 2018-05-17 13:33 | CP.PCM.PN ---
Subjective - Date & Time of Evaluation Date of Evaluation: 05/17/18 Time of Evaluation: 13:31 - Subjective Subjective: lethargic on bipap adequate oxygenation on SLED last night, 1.5 kg uf minimal u/o unable to obtain ROS due to mental status Objective - Vital Signs/Intake and Output Vital Signs (last 24 hours): Temp Pulse Resp BP Pulse Ox 96 F L 90 13 129/114 H 100 05/17/18 12:00 05/17/18 13:00 05/17/18 13:00 05/17/18 12:54 05/17/18 13:00 Intake and Output: 05/17/18 05/17/18 06:59 18:59 Intake Total 340 430 Balance 340 430 - Medications Medications: Current Medications Albumin Human (Albumin Human 25% (12.5 Gm/50 Ml)) 37.5 gm IV DAILY PRN PRN Reason: PER HD IF SBP IS LESS THAN 90 Albumin Human (Albumin Human 25% (12.5 Gm/50 Ml)) 12.5 gm IV ONCE PRN PRN Reason: hypotension Albuterol/Ipratropium (Duoneb 3 Mg/0.5 Mg (3 Ml) Ud) 3 ml INH RQ4 [facility] Last Admin: 05/17/18 11:22 Dose: 3 ml Calcium Acetate (Phoslo) 1,334 mg PO TIDCC [facility] Last Admin: 05/17/18 09:12 Dose: 1,334 mg Collagenase (Santyl) 0 gm TOP DAILY [facility] Last Admin: 05/17/18 10:38 Dose: 1 oin Cyanocobalamin (Vitamin B12 1000 Mcg Tab) 1,000 mcg PO DAILY [facility] Last Admin: 05/17/18 09:14 Dose: 1,000 mcg Dextrose (Dextrose 50% Inj) 0 ml IV STAT PRN; Protocol PRN Reason: Hypoglycemia Protocol Last Admin: 05/16/18 21:23 Dose: 50 ml Dextrose (Glutose 15) 0 gm PO ONCE PRN; Protocol PRN Reason: Hypoglycemia Protocol Diltiazem HCl (Cardizem Cd) 180 mg PO DAILY [facility] Last Admin: 05/17/18 09:12 Dose: 180 mg Folic Acid (Folic Acid) 1 mg PO DAILY [facility] Last Admin: 05/17/18 09:12 Dose: 1 mg Glucagon (Glucagen Diagnostic Kit) 0 mg IM STAT PRN; Protocol PRN Reason: Hypoglycemia Protocol Heparin Sodium (Porcine) (Heparin) 5,000 units SC Q12 [facility] Last Admin: 05/16/18 10:41 Dose: Not Given Hydrocortisone Sodium Succinate (Solu-Cortef) 100 mg IV Q8H [facility] Last Admin: 05/17/18 12:14 Dose: 100 mg Daptomycin 300 mg/ Sodium (Chloride) 100 mls @ 200 mls/hr IV Q48H [facility] Last Admin: 05/16/18 18:03 Dose: 200 mls/hr Micafungin Sodium 100 mg/ (Sodium Chloride) 100 mls @ 100 mls/hr IV Q24H [facility]; P rotocol Last Admin: 05/16/18 20:45 Dose: 100 mls/hr Phenylephrine HCl 30 mg/ (Dextrose) 253 mls @ 20.24 mls/hr IV .[id number] PRN; Protocol PRN Reason: TITRATE PER MD ORDER Last Titration: 05/13/18 18:30 Dose: 0 mcg/min, 0 mls/hr Meropenem 500 mg/ Sodium (Chloride) 100 mls @ 100 mls/hr IVPB Q12H [facility]; Protocol Last Admin: 05/17/18 12:13 Dose: 100 mls/hr Dextrose (Dextrose 10% In Water) 500 mls @ 10 mls/hr IV .Q24H [facility] Insulin Human Regular (Novolin R) 0 unit SC ACHS [facility]; Protocol Last Admin: 05/17/18 13:13 Dose: Not Given Isoniazid (Niazid) 300 mg PO DAILY [facility]; Protocol Last Admin: 05/17/18 12:14 Dose: 300 mg Lactic Acid (Lac-Hydrin 12% Lotion (225 G)) 0 gm EXT Q8 [facility] Last Admin: 05/17/18 06:27 Dose: 1 applic Levothyroxine Sodium (Levothyroxine) 200 mcg IVP Q24H [facility] Last Admin: 05/17/18 06:26 Dose: 200 mcg Multivitamins (Hexavitamin) 1 tab PO DAILY [facility] Last Admin: 05/16/18 14:01 Dose: Not Given Pantoprazole Sodium (Protonix Inj) 40 mg IVP Q12H [facility] Last Admin: 05/17/18 09:11 Dose: 40 mg Pyridoxine HCl (Vitamin B6 50 Mg Tab) 50 mg PO DAILY [facility] Last Admin: 11/07/18 09:14 Dose: 50 mg Rifampin (Rifampin Cap) 600 mg PO DAILY [facility]; Protocol Last Admin: 05/17/18 09:13 Dose: 600 mg Tacrolimus (Prograf Cap) 4 mg PO BID [facility] Last Admin: 05/17/18 10:16 Dose: Not Given Thiamine HCl (Vitamin B1 Inj) 200 mg IV Q8H [facility] Last Admin: 05/17/18 09:11 Dose: 200 mg Verapamil HCl (Verapamil Inj) 2.5 mg IVP Q6H PRN PRN Reason: Heart rate Last Admin: 05/15/18 21:00 Dose: 2.5 mg Vitamin A (Vitamin A & D Oint Ud Foilpak) 0 ea TOP BID [facility] Last Admin: 05/17/18 09:12 Dose: 1 ea - Labs Labs: 05/17/18 04:38 05/17/18 04:38 PT 12.2 SECONDS (9.7-12.2) 05/17/18 04:38 INR 1.1 05/17/18 04:38 APTT 42 SECONDS (21-34) H 05/17/18 04:38 - Constitutional Appears: Confused, Chronically Ill - Head Exam Head Exam: ATRAUMATIC, NORMAL INSPECTION - Eye Exam Eye Exam: EOMI - ENT Exam ENT Exam: Mucous Membranes Moist - Neck Exam Neck Exam: Full ROM. absent: Lymphadenopathy - Respiratory Exam Respiratory Exam: Decreased Breath Sounds - Cardiovascular Exam Cardiovascular Exam: Tachycardia. absent: Rubs - GI/Abdominal Exam GI & Abdominal Exam: Distended, Soft. absent: Guarding - Extremities Exam Extremities Exam: Pedal Edema - Neurological Exam Neurological Exam: absent: Alert, Awake, Oriented x3 Assessment and Plan - Assessment and Plan (Free Text) Plan: sepsis syndrome svt fluid overload acute kidney injury of renal transplant, oliguric, on HD HD planned for tomorrow continue same
--- NOTE | 2018-05-17 14:13 | CP.PCM.PN ---
Subjective - Date & Time of Evaluation Date of Evaluation: 05/17/18 Time of Evaluation: 14:10 - Subjective Subjective: Patient lethargic, not answering questions at this time. Objective - Vital Signs/Intake and Output Vital Signs (last 24 hours): Temp Pulse Resp BP Pulse Ox 96 F L 90 13 129/114 H 100 05/17/18 12:00 05/17/18 13:00 05/17/18 13:00 05/17/18 12:54 05/17/18 13:00 Intake and Output: 05/17/18 05/17/18 06:59 18:59 Intake Total 340 430 Balance 340 430 - Medications Medications: Current Medications Albumin Human (Albumin Human 25% (12.5 Gm/50 Ml)) 37.5 gm IV DAILY PRN PRN Reason: PER HD IF SBP IS LESS THAN 90 Albumin Human (Albumin Human 25% (12.5 Gm/50 Ml)) 12.5 gm IV ONCE PRN PRN Reason: hypotension Albuterol/Ipratropium (Duoneb 3 Mg/0.5 Mg (3 Ml) Ud) 3 ml INH RQ4 [facility] Last Admin: 05/17/18 11:22 Dose: 3 ml Calcium Acetate (Phoslo) 1,334 mg PO TIDCC [facility] Last Admin: 05/17/18 09:12 Dose: 1,334 mg Collagenase (Santyl) 0 gm TOP DAILY [facility] Last Admin: 05/17/18 10:38 Dose: 1 oin Cyanocobalamin (Vitamin B12 1000 Mcg Tab) 1,000 mcg PO DAILY [facility] Last Admin: 05/17/18 09:14 Dose: 1,000 mcg Dextrose (Dextrose 50% Inj) 0 ml IV STAT PRN; Protocol PRN Reason: Hypoglycemia Protocol Last Admin: 05/16/18 21:23 Dose: 50 ml Dextrose (Glutose 15) 0 gm PO ONCE PRN; Protocol PRN Reason: Hypoglycemia Protocol Diltiazem HCl (Cardizem Cd) 180 mg PO DAILY [facility] Last Admin: 05/17/18 09:12 Dose: 180 mg Folic Acid (Folic Acid) 1 mg PO DAILY [facility] Last Admin: 05/17/18 09:12 Dose: 1 mg Glucagon (Glucagen Diagnostic Kit) 0 mg IM STAT PRN; Protocol PRN Reason: Hypoglycemia Protocol Heparin Sodium (Porcine) (Heparin) 5,000 units SC Q12 [facility] Last Admin: 05/16/18 10:41 Dose: Not Given Hydrocortisone Sodium Succinate (Solu-Cortef) 100 mg IV Q8H [facility] Last Admin: 05/17/18 12:14 Dose: 100 mg Daptomycin 300 mg/ Sodium (Chloride) 100 mls @ 200 mls/hr IV Q48H [facility] Last Admin: 05/16/18 18:03 Dose: 200 mls/hr Micafungin Sodium 100 mg/ (Sodium Chloride) 100 mls @ 100 mls/hr IV Q24H [facility]; Protocol Last Admin: 05/16/18 20:45 Dose: 100 mls/hr Phenylephrine HCl 30 mg/ (Dextrose) 253 mls @ 20.24 mls/hr IV .[id number] PRN; Protocol PRN Reason: TITRATE PER MD ORDER Last Titration: 05/13/18 18:30 Dose: 0 mcg/min, 0 mls/hr Meropenem 500 mg/ Sodium (Chloride) 100 mls @ 100 mls/hr IVPB Q12H [facility]; Protocol Last Admin: 05/17/18 12:13 Dose: 100 mls/hr Dextrose (Dextrose 10% In Water) 500 mls @ 10 mls/hr IV .Q24H [facility] Insulin Human Regular (Novolin R) 0 unit SC ACHS [facility]; Protocol Last Admin: 05/17/18 13:13 Dose: Not Given Isoniazid (Niazid) 300 mg PO DAILY [facility]; Protocol Last Admin: 05/17/18 12:14 Dose: 300 mg Lactic Acid (Lac-Hydrin 12% Lotion (225 G)) 0 gm EXT Q8 [facility] Last Admin: 05/17/18 06:27 Dose: 1 applic Levothyroxine Sodium (Levothyroxine) 200 mcg IVP Q24H [facility] Last Admin: 05/17/18 06:26 Dose: 200 mcg Multivitamins (Hexavitamin) 1 tab PO DAILY [facility] Last Admin: 05/16/18 14:01 Dose: Not Given Pantoprazole Sodium (Protonix Inj) 40 mg IVP Q12H [facility] Last Admin: 05/17/18 09:11 Dose: 40 mg Pyridoxine HCl (Vitamin B6 50 Mg Tab) 50 mg PO DAILY [facility] Last Admin: 05/17/18 09:14 Dose: 50 mg Rifampin (Rifampin Cap) 600 mg PO DAILY [facility]; Protocol Last Admin: 05/17/18 09:13 Dose: 600 mg Tacrolimus (Prograf Cap) 4 mg PO BID [facility] Last Admin: 05/17/18 10:16 Dose: Not Given Thiamine HCl (Vitamin B1 Inj) 200 mg IV Q8H [facility] Last Admin: 05/17/18 09:11 Dose: 200 mg Verapamil HCl (Verapamil Inj) 2.5 mg IVP Q6H PRN PRN Reason: Heart rate Last Admin: 05/15/18 21:00 Dose: 2.5 mg Vitamin A (Vitamin A & D Oint Ud Foilpak) 0 ea TOP BID [facility] Last Admin: 05/17/18 09:12 Dose: 1 ea - Labs Labs: 05/17/18 04:38 05/17/18 04:38 PT 12.2 SECONDS (9.7-12.2) 05/17/18 04:38 INR 1.1 05/17/18 04:38 APTT 42 SECONDS (21-34) H 05/17/18 04:38 - Extremities Exam Additional comments: Left knee: dressing intact with santyl, tissue appears healthier, no granulation deep at this time no effusion, not warm, joint appears stable no erythema, no odor, no drainage Assessment and Plan (1) Surgical wound dehiscence Assessment & Plan: appears to be improvement with santyl recommend plastic surgery consultation as per Dr. Tovar no clinical evidence of infection at this time d/w Dr. 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
--- NOTE | 2018-05-17 16:39 | PN ---
DATE: 05/17/2018 ENDOCRINOLOGY FOLLOWUP NOTE LOCATION: In ICU room 10. SUBJECTIVE: This is a 72-year-old male with recent overt hypothyroidism noted both historically, clinically and biochemically and is now being followed closely for metabolic management. LABORATORY DATA: His repeat chemistry today showed a BUN of 22, sodium 142, potassium 5.1, chloride 105, CO2 of 28, glucose 160, and creatinine 1.9. His repeat thyroid studies showed a T4 of 1.01 because of the extremely low albumin of 3 and expected low thyroxine binding globulin levels accordingly. His TSH; however, is now 4.26, which is close to normal as noted. ASSESSMENT AND PLAN: We will continue the modified levothyroxine given as 200 mcg once daily as given intravenously push once again. He was previously on the 200 mcg orally as initially started. We will obtain serial thyroid studies and titrate his dose regimen accordingly. Isamar Shane MD
[2018-05-17] MEDS: Micafungin 100 MG in Sodium Chloride 0.9% 100 ML IV SCH (19:58)
--- NOTE | 2018-05-17 22:33 | CP.PCM.PN ---
Subjective - Date & Time of Evaluation Date of Evaluation: 05/17/18 Time of Evaluation: 19:30 - Subjective Subjective: Patient lethargic, dyspneic, on BIPAP. CXR: less CHF. WBC: 22,300 with 56 PMN and 36 bands. Hgb:9.6 Objective - Vital Signs/Intake and Output Vital Signs (last 24 hours): Temp Pulse Resp BP Pulse Ox 97.5 F L 88 13 104/62 97 05/17/18 16:00 05/17/18 22:18 05/17/18 22:18 05/17/18 22:18 05/17/18 21:19 Intake and Output: 05/17/18 05/18/18 18:59 06:59 Intake Total 480 130 Balance 480 130 - Medications Medications: Current Medications Albumin Human (Albumin Human 25% (12.5 Gm/50 Ml)) 37.5 gm IV DAILY PRN PRN Reason: PER HD IF SBP IS LESS THAN 90 Albumin Human (Albumin Human 25% (12.5 Gm/50 Ml)) 12.5 gm IV ONCE PRN PRN Reason: hypotension Albuterol/Ipratropium (Duoneb 3 Mg/0.5 Mg (3 Ml) Ud) 3 ml INH RQ4 [facility] Last Admin: 05/17/18 19:34 Dose: 3 ml Calcium Acetate (Phoslo) 1,334 mg PO TIDCC [facility] Last Admin: 05/17/18 18:26 Dose: 1,334 mg Collagenase (Santyl) 0 gm TOP DAILY [facility] Last Admin: 05/17/18 10:38 Dose: 1 oin Cyanocobalamin (Vitamin B12 1000 Mcg Tab) 1,000 mcg PO DAILY [facility] Last Admin: 05/17/18 09:14 Dose: 1,000 mcg Dextrose (Dextrose 50% Inj) 0 ml IV STAT PRN; Protocol PRN Reason: Hypoglycemia Protocol Last Admin: 05/16/18 21:23 Dose: 50 ml Dextrose (Glutose 15) 0 gm PO ONCE PRN; Protocol PRN Reason: Hypoglycemia Protocol Diltiazem HCl (Cardizem Cd) 180 mg PO DAILY [facility] Last Admin: 05/17/18 09:12 Dose: 180 mg Folic Acid (Folic Acid) 1 mg PO DAILY [facility] Last Admin: 05/17/18 09:12 Dose: 1 mg Glucagon (Glucagen Diagnostic Kit) 0 mg IM STAT PRN; Protocol PRN Reason: Hypoglycemia Protocol Heparin Sodium (Porcine) (Heparin) 5,000 units SC Q12 [facility] Last Admin: 05/16/18 10:41 Dose: Not Given Hydrocortisone Sodium Succinate (Solu-Cortef) 100 mg IV Q8H [facility] Last Admin: 05/17/18 18:24 Dose: 100 mg Daptomycin 300 mg/ Sodium (Chloride) 100 mls @ 200 mls/hr IV Q48H [facility] Last Admin: 05/16/18 18:03 Dose: 200 mls/hr Micafungin Sodium 100 mg/ (Sodium Chloride) 100 mls @ 100 mls/hr IV Q24H [facility]; Protocol Last Admin: 05/17/18 19:58 Dose: 100 mls/hr Phenylephrine HCl 30 mg/ (Dextrose) 253 mls @ 20.24 mls/hr IV .[id number] PRN; Protocol PRN Reason: TITRATE PER MD ORDER Last Titration: 05/13/18 18:30 Dose: 0 mcg/min, 0 mls/hr Meropenem 500 mg/ Sodium (Chloride) 100 mls @ 100 mls/hr IVPB Q12H [facility]; Protocol Last Admin: 05/17/18 12:13 Dose: 100 mls/hr Dextrose (Dextrose 10% In Water) 500 mls @ 10 mls/hr IV .Q24H [facility] Last Admin: 05/17/18 12:00 Dose: Not Given Insulin Human Regular (Novolin R) 0 unit SC ACHS [facility]; Protocol Last Admin: 05/17/18 22:27 Dose: Not Given Isoniazid (Niazid) 300 mg PO DAILY [facility]; Protocol Last Admin: 05/17/18 12:14 Dose: 300 mg Lactic Acid (Lac-Hydrin 12% Lotion (225 G)) 0 gm EXT Q8 [facility] Last Admin: 05/17/18 14:00 Dose: 1 applic Levothyroxine Sodium (Levothyroxine) 200 mcg IVP Q24H [facility] Last Admin: 05/17/18 06:26 Dose: 200 mcg Multivitamins (Hexavitamin) 1 tab PO DAILY [facility] Last Admin: 05/16/18 14:01 Dose: Not Given Pantoprazole Sodium (Protonix Inj) 40 mg IVP Q12H [facility] Last Admin: 05/17/18 20:02 Dose: 40 mg Pyridoxine HCl (Vitamin B6 50 Mg Tab) 50 mg PO DAILY [facility] Last Admin: 05/17/18 09:14 Dose: 50 mg Rifampin (Rifampin Cap) 600 mg PO DAILY [facility]; Protocol Last Admin: 05/17/18 09:13 Dose: 600 mg Tacrolimus (Prograf Cap) 4 mg PO BID [facility] Last Admin: 05/17/18 10:16 Dose: Not Given Thiamine HCl (Vitamin B1 Inj) 200 mg IV Q8H [facility] Last Admin: 05/17/18 18:25 Dose: 200 mg Verapamil HCl (Verapamil Inj) 2.5 mg IVP Q6H PRN PRN Reason: Heart rate Last Admin: 05/15/18 21:00 Dose: 2.5 mg Vitamin A (Vitamin A & D Oint Ud Foilpak) 0 ea TOP BID [facility] Last Admin: 05/17/18 18:26 Dose: 1 ea - Labs Labs: 05/17/18 04:38 05/17/18 04:38 PT 12.2 SECONDS (9.7-12.2) 05/17/18 04:38 INR 1.1 05/17/18 04:38 APTT 42 SECONDS (21-34) H 05/17/18 04:38 - Constitutional Appears: In Acute Distress, Cachectic, Chronically Ill - Head Exam Head Exam: NORMAL INSPECTION - Eye Exam Eye Exam: Normal appearance - ENT Exam ENT Exam: Normal Exam - Respiratory Exam Respiratory Exam: Rhonchi Additional comments: Rhonchi bilaterally - Cardiovascular Exam Cardiovascular Exam: Irregular Rhythm - GI/Abdominal Exam GI & Abdominal Exam: Normal Bowel Sounds - Extremities Exam Extremities Exam: Pedal Edema - Back Exam Back Exam: NORMAL INSPECTION - Neurological Exam Additional comments: Patient lethargic. Assessment and Plan (1) Hypothermia Status: Resolved (2) Hypoglycemia Status: Resolved (3) Hypotension Status: Resolved (4) Acute confusion Status: Resolved (5) Exfoliative dermatitis Status: Resolved (6) Acute on chronic diastolic CHF (congestive heart failure) Status: Acute (7) YVAN (acute kidney injury) Status: Acute (8) Sepsis Assessment & Plan: IV antibiotics as per Dr Nash. Status: Acute
[2018-05-18] MEDS: Albuterol-Ipratrop 3 mg / 0.5 (3 ml) UD INH SCH ×6 (00:52→20:51)
[2018-05-18] MEDS: Thiamine 100 mg/ml Inj IV SCH ×3 (02:07→19:03)
[2018-05-18 06:27] LABS: PROTHROMBIN TIME 10.8 SECONDS (9.7-12.2)
[2018-05-18 06:29] LABS: BASO % 0.1 % (0.0-2.0); HEMOGLOBIN 9.4 g/dL (12.0-18.0); LYMPH # 0.4 K/uL (1.0-4.3); LYMPH % 2.5 % (20.0-40.0); MEAN CELL VOLUME 93.7 fL (80.0-94.0); MEAN CORPUSCULAR HEMOGLOBIN 29.9 pg (27.0-31.0); MEAN CORPUSCULAR HGB CONC 31.9 g/dL (33.0-37.0); MEAN PLATELET VOLUME 9.9 fL (7.2-11.7); MONO # 0.4 K/uL (0.0-0.8); MONO % 2.3 % (0.0-10.0); NEUT # 16.3 K/uL (1.8-7.0); NEUT % 95.1 % (50.0-75.0); NRBC % 0.7 % (0.0-2.0); PLATELET COUNT 79 K/uL (130-400); RBC 3.15 Mil/uL (4.40-5.90); RED CELL DISTRIBUTION WIDTH 25.3 % (11.5-14.5); WHITE BLOOD COUNT 17.1 K/uL (4.8-10.8)
[2018-05-18 06:39] LABS: ALB/GLOB RATIO 1.2 (1.0-2.1); ALBUMIN 3.1 g/dL (3.5-5.0); CALCIUM 8.4 mg/dl (8.6-10.4)
[2018-05-18] MEDS: Levothyroxine 200 mcg (0.2 mg) Inj IVP SCH (06:43)
[2018-05-18] MEDS: Ammonium Lactate 12% Lotion (225 g) EXT SCH ×3 (06:44→21:03)
--- NOTE | 2018-05-18 07:21 | CP.CCUPN ---
<Natasha Khan - Last Filed: 05/18/18 12:29> CCU Subjective - Physician Review Events Since Last Encounter (Free Text): 05/18/18 07:19 hypothermic over night (94.4)- oni ruth Subjective (Free Text): 05/18/18 07:20 Patient was seen and examined this morning. Still on BiPAP. Plan for HD today. 05/18/18 12:29 Patient breathing well on humidified aerosolized. Tolerating HD. Complaining of RUQ pain. Critical Care Time Spent (in minutes): 35 CCU Objective - Vital Signs / Intake & Output Vital Signs (Last 4 hours): Vital Signs Temp Pulse Resp BP Pulse Ox 05/18/18 06:18 94 H 19 132/69 100 05/18/18 06:07 93 H 05/18/18 05:18 92 H 13 135/73 100 05/18/18 04:13 79 12 124/45 L 100 05/18/18 04:00 97.4 F L Intake and Output (Last 8hrs): Intake & Output 05/17/18 05/18/18 05/18/18 22:59 06:59 14:59 Intake Total 280 80 10 Balance 280 80 10 Weight 122 lb 12.8 oz Intake: Intake, IV Amount 280 80 10 Right 80 80 10 Right Femoral Side-Port 200 Other: # Voids Urine, Voided 1 - Physical Exam Head: Positive for: Atraumatic, Normocephalic Pupils: Positive for: PERRL Extroacular Muscles: Positive for: EOMI Conjunctiva: Positive for: Normal Mouth: Positive for: Dry Pharnyx: Negative for: ERYTHEMA Respiratory/Chest: Positive for: Other (BiPAP). Negative for: Respiratory Distress, Accessory Muscle Use Cardiovascular: Positive for: Normal S1, S2, Irregular Rhythm (Afib RVR), Tachycardic, Other (trialysis cath in R femoral). Negative for: Murmurs Abdomen: Positive for: Normal Bowel Sounds. Negative for: Tenderness, Distention, Peritoneal Signs Upper Extremity: Positive for: Swelling, Erythema, Neurovascularly Intact, Other (b/l skin sloughing) Lower Extremity: Positive for: Erythema, Neurovascularly Intact Neurological: Positive for: GCS=15, CN II-XII Intact Psychiatric: Positive for: Alert, Oriented x 3. Negative for: Agitated - Medications Active Medications: Active Medications Generic Name Dose Route Start Last Admin Trade Name Freq PRN Reason Stop Dose Admin Albumin Human 37.5 gm 05/12/18 16:00 Albumin Human 25% (12.5 Gm/50 Ml) IV DAILY PRN PER HD IF SBP IS LESS THAN 90 Albumin Human 12.5 gm 05/16/18 11:47 Albumin Human 25% (12.5 Gm/50 Ml) IV ONCE PRN hypotension Albuterol/Ipratropium 3 ml 05/12/18 19:00 05/18/18 04:15 Duoneb 3 Mg/0.5 Mg (3 Ml) Ud INH 3 ml RQ4 FAHEEM Administration Calcium Acetate 1,334 mg 05/12/18 13:21 05/17/18 18:26 Phoslo PO 1,334 mg TIDCC FAHEEM Administration Collagenase 0 gm 05/11/18 11:00 05/17/18 10:38 Santyl TOP 1 oin DAILY FAHEEM Administration Cyanocobalamin 1,000 mcg 05/12/18 10:00 05/17/18 09:14 Vitamin B12 1000 Mcg Tab PO 1,000 mcg DAILY FAHEEM Administration Dextrose 0 ml 05/08/18 17:53 05/16/18 21:23 Dextrose 50% Inj IV 50 ml STAT PRN Administration Hypoglycemia Protocol Protocol Dextrose 0 gm 05/08/18 17:53 Glutose 15 PO ONCE PRN Hypoglycemia Protocol Protocol Diltiazem HCl 180 mg 05/14/18 10:00 05/17/18 09:12 Cardizem Cd PO 180 mg DAILY FAHEEM Administration Folic Acid 1 mg 05/09/18 10:00 05/17/18 09:12 Folic Acid PO 1 mg DAILY FAHEEM Administration Glucagon 0 mg 05/08/18 17:53 Glucagen Diagnostic Kit IM STAT PRN Hypoglycemia Protocol Protocol Heparin Sodium (Porcine) 5,000 units 05/14/18 11:00 05/16/18 10:41 Heparin SC Not Given Q12 FAHEEM Hydrocortisone Sodium Succinate 100 mg 05/16/18 10:45 05/18/18 02:07 Solu-Cortef IV 100 mg Q8H FAHEEM Administration Daptomycin 300 mg/ Sodium 100 mls @ 200 mls/hr 05/10/18 18:30 05/16/18 18:03 Chloride IV 200 mls/hr Q48H FAHEEM Administration Micafungin Sodium 100 mg/ 100 mls @ 100 mls/hr 05/10/18 20:00 05/17/18 19:58 Sodium Chloride IV 100 mls/hr Q24H FAHEEM Administration Protocol Phenylephrine HCl 30 mg/ 253 mls @ 20.24 mls/hr 05/13/18 17:00 05/13/18 18:30 Dextrose IV 0 mcg/min .[id number] PRN 0 mls/hr TITRATE PER MD ORDER Titration Protocol 40 MCG/MIN Meropenem 500 mg/ Sodium 100 mls @ 100 mls/hr 05/14/18 23:00 05/17/18 22:29 Chloride IVPB 100 mls/hr Q12H FAHEEM Administration Protocol Dextrose 500 mls @ 10 mls/hr 05/17/18 07:00 05/17/18 12:00 Dextrose 10% In Water IV Not Given .Q24H FAHEEM Insulin Human Regular 0 unit 05/16/18 16:50 05/17/18 22:27 Novolin R SC Not Given ACHS FAHEEM Protocol Isoniazid 300 mg 05/15/18 12:00 05/17/18 12:14 Niazid PO 300 mg DAILY [facility] Administration Protocol Lactic Acid 0 gm 05/12/18 07:00 05/18/18 06:44 Lac-Hydrin 12% Lotion (225 G) EXT 1 applic Q8 FAHEEM Administration Levothyroxine Sodium 200 mcg 05/17/18 06:00 05/18/18 06:43 Levothyroxine IVP 200 mcg Q24H FAHEEM Administration Multivitamins 1 tab 05/15/18 13:00 05/16/18 14:01 Hexavitamin PO Not Given DAILY [facility] Pantoprazole Sodium 40 mg 05/12/18 21:00 05/17/18 20:02 Protonix Inj IVP 40 mg Q12H FAHEEM Administration Pyridoxine HCl 50 mg 05/09/18 10:00 05/17/18 09:14 Vitamin B6 50 Mg Tab PO 50 mg DAILY FAHE[facility] Administration Rifampin 600 mg 05/15/18 12:00 05/17/18 09:13 Rifampin Cap PO 600 mg DAILY FAHEEM Administration Protocol Tacrolimus 4 mg 05/15/18 11:35 05/17/18 10:16 Prograf Cap PO Not Given BID [facility] Thiamine HCl 200 mg 05/11/18 09:45 05/18/18 02:07 Vitamin B1 Inj IV 200 mg Q8H FAHEEM Administration Verapamil HCl 2.5 mg 05/13/18 16:52 05/15/18 21:00 Verapamil Inj IVP 2.5 mg Q6H PRN Administration Heart rate Vitamin A 0 ea 05/11/18 18:00 05/17/18 18:26 Vitamin A & D Oint Ud Foilpak TOP 1 ea BID FAHEEM Administration - Patient Studies Lab Studies: Lab Studies 05/18/18 05/18/18 05/18/18 Range/Units 06:15 06:15 06:15 WBC 17.1 H (4.8-10.8) K/uL RBC 3.15 L (4.40-5.90) Mil/uL Hgb 9.4 L (12.0-18.0) g/dL Hct 29.5 L (35.0-51.0) % MCV 93.7 (80.0-94.0) fL MCH 29.9 (27.0-31.0) pg MCHC 31.9 L (33.0-37.0) g/dL RDW 25.3 H (11.5-14.5) % Plt Count 79 L (130-400) K/uL MPV 9.9 (7.2-11.7) fL Neut % (Auto) 95.1 H (50.0-75.0) % Lymph % (Auto) 2.5 L (20.0-40.0) % [place] % (Auto) 2.3 (0.0-10.0) % Eos % (Auto) 0.0 (0.0-4.0) % Baso % (Auto) 0.1 (0.0-2.0) % Neut # (Auto) 16.3 H (1.8-7.0) K/uL Lymph # (Auto) 0.4 L (1.0-4.3) K/uL [place] # (Auto) 0.4 (0.0-0.8) K/uL Eos # (Auto) 0.0 (0.0-0.7) K/uL Baso # (Auto) 0.0 (0.0-0.2) K/uL Neutrophils % (Manual) (50-75) % Band Neutrophils % (0-2) % Lymphocytes % (Manual) (20-40) % Monocytes % (Manual) (0-10) % Platelet Estimate (NORMAL) Polychromasia Hypochromasia (manual) Anisocytosis (manual) Macrocytosis (manual) Target Cells Ovalocytes Schistocytes PT 10.8 (9.7-12.2) SECONDS INR 1.0 APTT 40 H (21-34) SECONDS Puncture Site pCO2 (35-45) mm/Hg pO2 (80-100) mm/Hg HCO3 (21-28) mmol/L ABG pH (7.35-7.45) ABG Total CO2 (22-28) mmol/L ABG O2 Saturation (95-98) % ABG Base Excess (-2.0-3.0) mmol/L Nehemiah Test ABG Potassium (3.6-5.2) mmol/L A-a O2 Difference mm/Hg Respiratory Index Sodium 143 (132-148) mmol/l Chloride 107 (98-107) mmol/L Glucose (75-110) mg/dl Lactate (0.7-2.1) mmol/L Vent Mode FiO2 % Inspiratory BiPAP Expiratory BiPAP Crit Value Called To Crit Value Called By Crit Value Read Back Blood Gas Notified Time Potassium 4.8 (3.6-5.2) mmol/L Carbon Dioxide 27 (22-30) mmol/L Anion Gap 13 (10-20) BUN 30 H (9-20) mg/dL Creatinine 2.5 H (0.8-1.5) mg/dL Est GFR ( Amer) 31 Est GFR (Non-Af Amer) 26 POC Glucose (mg/dL) (65-110) mg/dL Random Glucose 144 H (75-110) mg/dL Calcium 8.4 L (8.6-10.4) mg/dl Phosphorus 4.2 (2.5-4.5) mg/dL Magnesium 2.0 (1.6-2.3) mg/dL Total Bilirubin 2.2 H (0.2-1.3) mg/dL AST 28 (17-59) U/L ALT 47 (21-72) U/L Alkaline Phosphatase 91 (38-126) U/L Total Protein 5.6 L (6.3-8.3) g/dL Albumin 3.1 L (3.5-5.0) g/dL Globulin 2.5 (2.2-3.9) gm/dL Albumin/Globulin Ratio 1.2 (1.0-2.1) Arterial Blood Potassium (3.6-5.2) mmol/L Urine Color (YELLOW) Urine Clarity (Clear) Urine pH (5.0-8.0) Ur Specific [place] (1.003-1.030) Urine Protein (NEGATIVE) mg/dL Urine Glucose (UA) (Normal) mg/dL Urine Ketones (NEGATIVE) mg/dL Urine Blood (NEGATIVE) Urine Nitrate (NEGATIVE) Urine Bilirubin (NEGATIVE) Urine Urobilinogen (0.2-1.0) mg/dL Ur Leukocyte Esterase (Negative) Vicente/uL Urine WBC (Auto) (0-5) /hpf Urine RBC (Auto) (0-3) /hpf Ur Squamous Epith Cells (0-5) /hpf Amorphous Sediment (<OCC) /ul Urine Bacteria (<OCC) Hyaline Casts (0-2) /lpf Urine Yeast (Budding) (NEGATIVE) /hpf Tacrolimus (LC/MS/MS) (5.0-20.0) mcg/L 05/17/18 05/17/18 05/17/18 Range/Units 21:38 16:18 12:22 WBC (4.8-10.8) K/uL RBC (4.40-5.90) Mil/uL Hgb (12.0-18.0) g/dL Hct (35.0-51.0) % MCV (80.0-94.0) fL MCH (27.0-31.0) pg MCHC (33.0-37.0) g/dL RDW (11.5-14.5) % Plt Count (130-400) K/uL MPV (7.2-11.7) fL Neut % (Auto) (50.0-75.0) % Lymph % (Auto) (20.0-40.0) % [place] % (Auto) (0.0-10.0) % Eos % (Auto) (0.0-4.0) % Baso % (Auto) (0.0-2.0) % Neut # (Auto) (1.8-7.0) K/uL Lymph # (Auto) (1.0-4.3) K/uL [place] # (Auto) (0.0-0.8) K/uL Eos # (Auto) (0.0-0.7) K/uL Baso # (Auto) (0.0-0.2) K/uL Neutrophils % (Manual) (50-75) % Band Neutrophils % (0-2) % Lymphocytes % (Manual) (20-40) % Monocytes % (Manual) (0-10) % Platelet Estimate (NORMAL) Polychromasia Hypochromasia (manual) Anisocytosis (manual) Macrocytosis (manual) Target Cells Ovalocytes Schistocytes PT (9.7-12.2) SECONDS INR APTT (21-34) SECONDS Puncture Site pCO2 (35-45) mm/Hg pO2 (80-100) mm/Hg HCO3 (21-28) mmol/L ABG pH (7.35-7.45) ABG Total CO2 (22-28) mmol/L ABG O2 Saturation (95-98) % ABG Base Excess (-2.0-3.0) mmol/L Nehemiah Test ABG Potassium (3.6-5.2) mmol/L A-a O2 Difference mm/Hg Respiratory Index Sodium (132-148) mmol/l Chloride (98-107) mmol/L Glucose (75-110) mg/dl Lactate (0.7-2.1) mmol/L Vent Mode FiO2 % Inspiratory BiPAP Expiratory BiPAP Crit Value Called To Crit Value Called By Crit Value Read Back Blood Gas Notified Time Potassium (3.6-5.2) mmol/L Carbon Dioxide (22-30) mmol/L Anion Gap (10-20) BUN (9-20) mg/dL Creatinine (0.8-1.5) mg/dL Est GFR ( Amer) Est GFR (Non-Af Amer) POC Glucose (mg/dL) 116 H 142 H (65-110) mg/dL Random Glucose (75-110) mg/dL Calcium (8.6-10.4) mg/dl Phosphorus (2.5-4.5) mg/dL Magnesium (1.6-2.3) mg/dL Total Bilirubin (0.2-1.3) mg/dL AST (17-59) U/L ALT (21-72) U/L Alkaline Phosphatase (38-126) U/L Total Protein (6.3-8.3) g/dL Albumin (3.5-5.0) g/dL Globulin (2.2-3.9) gm/dL Albumin/Globulin Ratio (1.0-2.1) Arterial Blood Potassium (3.6-5.2) mmol/L Urine Color Jing (YELLOW) Urine Clarity Hazy (Clear) Urine pH 5.0 (5.0-8.0) Ur Specific [place] 1.025 (1.003-1.030) Urine Protein 2+ H (NEGATIVE) mg/dL Urine Glucose (UA) 1+ H (Normal) mg/dL Urine Ketones Negative (NEGATIVE) mg/dL Urine Blood 3+ H (NEGATIVE) Urine Nitrate Negative (NEGATIVE) Urine Bilirubin Negative (NEGATIVE) Urine Urobilinogen Normal (0.2-1.0) mg/dL Ur Leukocyte Esterase Trace (Negative) Vicente/uL Urine WBC (Auto) 3 (0-5) /hpf Urine RBC (Auto) 296 H (0-3) /hpf Ur Squamous Epith Cells 4 (0-5) /hpf Amorphous Sediment Rare H (<OCC) /ul Urine Bacteria Few H (<OCC) Hyaline Casts 3-5 H (0-2) /lpf Urine Yeast (Budding) Many H (NEGATIVE) /hpf Tacrolimus (LC/MS/MS) (5.0-20.0) mcg/L 05/17/18 05/17/18 05/17/18 Range/Units 11:12 08:27 07:25 WBC (4.8-10.8) K/uL RBC (4.40-5.90) Mil/uL Hgb (12.0-18.0) g/dL Hct (35.0-51.0) % MCV (80.0-94.0) fL MCH (27.0-31.0) pg MCHC (33.0-37.0) g/dL RDW (11.5-14.5) % Plt Count (130-400) K/uL MPV (7.2-11.7) fL Neut % (Auto) (50.0-75.0) % Lymph % (Auto) (20.0-40.0) % [place] % (Auto) (0.0-10.0) % Eos % (Auto) (0.0-4.0) % Baso % (Auto) (0.0-2.0) % Neut # (Auto) (1.8-7.0) K/uL Lymph # (Auto) (1.0-4.3) K/uL [place] # (Auto) (0.0-0.8) K/uL Eos # (Auto) (0.0-0.7) K/uL Baso # (Auto) (0.0-0.2) K/uL Neutrophils % (Manual) (50-75) % Band Neutrophils % (0-2) % Lymphocytes % (Manual) (20-40) % Monocytes % (Manual) (0-10) % Platelet Estimate (NORMAL) Polychromasia Hypochromasia (manual) Anisocytosis (manual) Macrocytosis (manual) Target Cells Ovalocytes Schistocytes PT (9.7-12.2) SECONDS INR APTT (21-34) SECONDS Puncture Site Rra pCO2 70 H (35-45) mm/Hg pO2 37 L* (80-100) mm/Hg HCO3 22.0 (21-28) mmol/L ABG pH 7.20 L (7.35-7.45) ABG Total CO2 29.5 H (22-28) mmol/L ABG O2 Saturation 73.3 L (95-98) % ABG Base Excess -2.3 L (-2.0-3.0) mmol/L Nehemiah Test Pos ABG Potassium 4.7 (3.6-5.2) mmol/L A-a O2 Difference 589.0 mm/Hg Respiratory Index 15.9 Sodium 144.0 (132-148) mmol/l Chloride 113.0 H (98-107) mmol/L Glucose 140 H (75-110) mg/dl Lactate 1.7 (0.7-2.1) mmol/L Vent Mode Bipap FiO2 100.0 % Inspiratory BiPAP 12 Expiratory BiPAP 5 Crit Value Called To Dr bond Crit Value Called By Florencio ryan marine diesel technician Crit Value Read Back Y Blood Gas Notified Time 900 Potassium (3.6-5.2) mmol/L Carbon Dioxide (22-30) mmol/L Anion Gap (10-20) BUN (9-20) mg/dL Creatinine (0.8-1.5) mg/dL Est GFR ( Amer) Est GFR (Non-Af Amer) POC Glucose (mg/dL) 139 H 92 (65-110) mg/dL Random Glucose (75-110) mg/dL Calcium (8.6-10.4) mg/dl Phosphorus (2.5-4.5) mg/dL Magnesium (1.6-2.3) mg/dL Total Bilirubin (0.2-1.3) mg/dL AST (17-59) U/L ALT (21-72) U/L Alkaline Phosphatase (38-126) U/L Total Protein (6.3-8.3) g/dL Albumin (3.5-5.0) g/dL Globulin (2.2-3.9) gm/dL Albumin/Globulin Ratio (1.0-2.1) Arterial Blood Potassium 4.7 (3.6-5.2) mmol/L Urine Color (YELLOW) Urine Clarity (Clear) Urine pH (5.0-8.0) Ur Specific [place] (1.003-1.030) Urine Protein (NEGATIVE) mg/dL Urine Glucose (UA) (Normal) mg/dL Urine Ketones (NEGATIVE) mg/dL Urine Blood (NEGATIVE) Urine Nitrate (NEGATIVE) Urine Bilirubin (NEGATIVE) Urine Urobilinogen (0.2-1.0) mg/dL Ur Leukocyte Esterase (Negative) Vicente/uL Urine WBC (Auto) (0-5) /hpf Urine RBC (Auto) (0-3) /hpf Ur Squamous Epith Cells (0-5) /hpf Amorphous Sediment (<OCC) /ul Urine Bacteria (<OCC) Hyaline Casts (0-2) /lpf Urine Yeast (Budding) (NEGATIVE) /hpf Tacrolimus (LC/MS/MS) (5.0-20.0) mcg/L 05/17/18 05/16/18 Range/Units 04:38 07:52 WBC (4.8-10.8) K/uL RBC (4.40-5.90) Mil/uL Hgb (12.0-18.0) g/dL Hct (35.0-51.0) % MCV (80.0-94.0) fL MCH (27.0-31.0) pg MCHC (33.0-37.0) g/dL RDW (11.5-14.5) % Plt Count (130-400) K/uL MPV (7.2-11.7) fL Neut % (Auto) (50.0-75.0) % Lymph % (Auto) (20.0-40.0) % [place] % (Auto) (0.0-10.0) % Eos % (Auto) (0.0-4.0) % Baso % (Auto) (0.0-2.0) % Neut # (Auto) (1.8-7.0) K/uL Lymph # (Auto) (1.0-4.3) K/uL [place] # (Auto) (0.0-0.8) K/uL Eos # (Auto) (0.0-0.7) K/uL Baso # (Auto) (0.0-0.2) K/uL Neutrophils % (Manual) 56 (50-75) % Band Neutrophils % 36 H* (0-2) % Lymphocytes % (Manual) 4 L (20-40) % Monocytes % (Manual) 4 (0-10) % Platelet Estimate Decreased L (NORMAL) Polychromasia Slight Hypochromasia (manual) Moderate Anisocytosis (manual) Moderate Macrocytosis (manual) Slight Target Cells Slight Ovalocytes Slight Schistocytes Slight PT (9.7-12.2) SECONDS INR APTT (21-34) SECONDS Puncture Site pCO2 (35-45) mm/Hg pO2 (80-100) mm/Hg HCO3 (21-28) mmol/L ABG pH (7.35-7.45) ABG Total CO2 (22-28) mmol/L ABG O2 Saturation (95-98) % ABG Base Excess (-2.0-3.0) mmol/L Nehemiah Test ABG Potassium (3.6-5.2) mmol/L A-a O2 Difference mm/Hg Respiratory Index Sodium (132-148) mmol/l Chloride (98-107) mmol/L Glucose (75-110) mg/dl Lactate (0.7-2.1) mmol/L Vent Mode FiO2 % Inspiratory BiPAP Expiratory BiPAP Crit Value Called To Crit Value Called By Crit Value Read Back Blood Gas Notified Time Potassium (3.6-5.2) mmol/L Carbon Dioxide (22-30) mmol/L Anion Gap (10-20) BUN (9-20) mg/dL Creatinine (0.8-1.5) mg/dL Est GFR ( Amer) Est GFR (Non-Af Amer) POC Glucose (mg/dL) (65-110) mg/dL Random Glucose (75-110) mg/dL Calcium (8.6-10.4) mg/dl Phosphorus (2.5-4.5) mg/dL Magnesium (1.6-2.3) mg/dL Total Bilirubin (0.2-1.3) mg/dL AST (17-59) U/L ALT (21-72) U/L Alkaline Phosphatase (38-126) U/L Total Protein (6.3-8.3) g/dL Albumin (3.5-5.0) g/dL Globulin (2.2-3.9) gm/dL Albumin/Globulin Ratio (1.0-2.1) Arterial Blood Potassium (3.6-5.2) mmol/L Urine Color (YELLOW) Urine Clarity (Clear) Urine pH (5.0-8.0) Ur Specific [place] (1.003-1.030) Urine Protein (NEGATIVE) mg/dL Urine Glucose (UA) (Normal) mg/dL Urine Ketones (NEGATIVE) mg/dL Urine Blood (NEGATIVE) Urine Nitrate (NEGATIVE) Urine Bilirubin (NEGATIVE) Urine Urobilinogen (0.2-1.0) mg/dL Ur Leukocyte Esterase (Negative) Vicente/uL Urine WBC (Auto) (0-5) /hpf Urine RBC (Auto) (0-3) /hpf Ur Squamous Epith Cells (0-5) /hpf Amorphous Sediment (<OCC) /ul Urine Bacteria (<OCC) Hyaline Casts (0-2) /lpf Urine Yeast (Budding) (NEGATIVE) /hpf Tacrolimus (LC/MS/MS) 18.7 (5.0-20.0) mcg/L Laboratory Results - last 24 hr 05/16/18 05/17/18 05/17/18 07:52 04:38 07:25 WBC RBC Hgb Hct MCV MCH MCHC RDW Plt Count MPV Neut % (Auto) Lymph % (Auto) [place] % (Auto) Eos % (Auto) Baso % (Auto) Neut # (Auto) Lymph # (Auto) [place] # (Auto) Eos # (Auto) Baso # (Auto) Neutrophils % (Manual) 56 Band Neutrophils % 36 H* Lymphocytes % (Manual) 4 L Monocytes % (Manual) 4 Platelet Estimate Decreased L Polychromasia Slight Hypochromasia (manual) Moderate Anisocytosis (manual) Moderate Macrocytosis (manual) Slight Target Cells Slight Ovalocytes Slight Schistocytes Slight PT INR APTT Puncture Site pCO2 pO2 HCO3 ABG pH ABG Total CO2 ABG O2 Saturation ABG Base Excess Nehemiah Test ABG Potassium A-a O2 Difference Respiratory Index Sodium Chloride Glucose Lactate Vent Mode FiO2 Inspiratory BiPAP Expiratory BiPAP Crit Value Called To Crit Value Called By Crit Value Read Back Blood Gas Notified Time Potassium Carbon Dioxide Anion Gap BUN Creatinine Est GFR ( Amer) Est GFR (Non-Af Amer) POC Glucose (mg/dL) 92 Random Glucose Calcium Phosphorus Magnesium Total Bilirubin AST ALT Alkaline Phosphatase Total Protein Albumin Globulin Albumin/Globulin Ratio Arterial Blood Potassium Urine Color Urine Clarity Urine pH Ur Specific [place] Urine Protein Urine Glucose (UA) Urine Ketones Urine Blood Urine Nitrate Urine Bilirubin Urine Urobilinogen Ur Leukocyte Esterase Urine WBC (Auto) Urine RBC (Auto) Ur Squamous Epith Cells Amorphous Sediment Urine Bacteria Hyaline Casts Urine Yeast (Budding) Tacrolimus (LC/MS/MS) 18.7 05/17/18 05/17/18 05/17/18 08:27 11:12 12:22 WBC RBC Hgb Hct MCV MCH MCHC RDW Plt Count MPV Neut % (Auto) Lymph % (Auto) [place] % (Auto) Eos % (Auto) Baso % (Auto) Neut # (Auto) Lymph # (Auto) [place] # (Auto) Eos # (Auto) Baso # (Auto) Neutrophils % (Manual) Band Neutrophils % Lymphocytes % (Manual) Monocytes % (Manual) Platelet Estimate Polychromasia Hypochromasia (manual) Anisocytosis (manual) Macrocytosis (manual) Target Cells Ovalocytes Schistocytes PT INR APTT Puncture Site Rra pCO2 70 H pO2 37 L* HCO3 22.0 ABG pH 7.20 L ABG Total CO2 29.5 H ABG O2 Saturation 73.3 L ABG Base Excess -2.3 L Nehemiah Test Pos ABG Potassium 4.7 A-a O2 Difference 589.0 Respiratory Index 15.9 Sodium 144.0 Chloride 113.0 H Glucose 140 H Lactate 1.7 Vent Mode Bipap FiO2 100.0 Inspiratory BiPAP 12 Expiratory BiPAP 5 Crit Value Called To Dr varun Crit Value Called By Florencio ryan marine diesel technician Crit Value Read Back Y Blood Gas Notified Time 900 Potassium Carbon Dioxide Anion Gap BUN Creatinine Est GFR ( Amer) Est GFR (Non-Af Amer) POC Glucose (mg/dL) 139 H Random Glucose Calcium Phosphorus Magnesium Total Bilirubin AST ALT Alkaline Phosphatase Total Protein Albumin Globulin Albumin/Globulin Ratio Arterial Blood Potassium 4.7 Urine Color Jing Urine Clarity Hazy Urine pH 5.0 Ur Specific [place] 1.025 Urine Protein 2+ H Urine Glucose (UA) 1+ H Urine Ketones Negative Urine Blood 3+ H Urine Nitrate Negative Urine Bilirubin Negative Urine Urobilinogen Normal Ur Leukocyte Esterase Trace Urine WBC (Auto) 3 Urine RBC (Auto) 296 H Ur Squamous Epith Cells 4 Amorphous Sediment Rare H Urine Bacteria Few H Hyaline Casts 3-5 H Urine Yeast (Budding) Many H Tacrolimus (LC/MS/MS) 05/17/18 05/17/18 05/18/18 16:18 21:38 06:15 WBC RBC Hgb Hct MCV MCH MCHC RDW Plt Count MPV Neut % (Auto) Lymph % (Auto) [place] % (Auto) Eos % (Auto) Baso % (Auto) Neut # (Auto) Lymph # (Auto) [place] # (Auto) Eos # (Auto) Baso # (Auto) Neutrophils % (Manual) Band Neutrophils % Lymphocytes % (Manual) Monocytes % (Manual) Platelet Estimate Polychromasia Hypochromasia (manual) Anisocytosis (manual) Macrocytosis (manual) Target Cells Ovalocytes Schistocytes PT 10.8 INR 1.0 APTT 40 H Puncture Site pCO2 pO2 HCO3 ABG pH ABG Total CO2 ABG O2 Saturation ABG Base Excess Nehemiah Test ABG Potassium A-a O2 Difference Respiratory Index Sodium Chloride Glucose Lactate Vent Mode FiO2 Inspiratory BiPAP Expiratory BiPAP Crit Value Called To Crit Value Called By Crit Value Read Back Blood Gas Notified Time Potassium Carbon Dioxide Anion Gap BUN Creatinine Est GFR ( Amer) Est GFR (Non-Af Amer) POC Glucose (mg/dL) 142 H 116 H Random Glucose Calcium Phosphorus Magnesium Total Bilirubin AST ALT Alkaline Phosphatase Total Protein Albumin Globulin Albumin/Globulin Ratio Arterial Blood Potassium Urine Color Urine Clarity Urine pH Ur Specific [place] Urine Protein Urine Glucose (UA) Urine Ketones Urine Blood Urine Nitrate Urine Bilirubin Urine Urobilinogen Ur Leukocyte Esterase Urine WBC (Auto) Urine RBC (Auto) Ur Squamous Epith Cells Amorphous Sediment Urine Bacteria Hyaline Casts Urine Yeast (Budding) Tacrolimus (LC/MS/MS) 05/18/18 05/18/18 06:15 06:15 WBC 17.1 H RBC 3.15 L Hgb 9.4 L Hct 29.5 L MCV 93.7 MCH 29.9 MCHC 31.9 L RDW 25.3 H Plt Count 79 L MPV 9.9 Neut % (Auto) 95.1 H Lymph % (Auto) 2.5 L [place] % (Auto) 2.3 Eos % (Auto) 0.0 Baso % (Auto) 0.1 Neut # (Auto) 16.3 H Lymph # (Auto) 0.4 L [place] # (Auto) 0.4 Eos # (Auto) 0.0 Baso # (Auto) 0.0 Neutrophils % (Manual) Band Neutrophils % Lymphocytes % (Manual) Monocytes % (Manual) Platelet Estimate Polychromasia Hypochromasia (manual) Anisocytosis (manual) Macrocytosis (manual) Target Cells Ovalocytes Schistocytes PT INR APTT Puncture Site pCO2 pO2 HCO3 ABG pH ABG Total CO2 ABG O2 Saturation ABG Base Excess Nehemiah Test ABG Potassium A-a O2 Difference Respiratory Index Sodium 143 Chloride 107 Glucose Lactate Vent Mode FiO2 Inspiratory BiPAP Expiratory BiPAP Crit Value Called To Crit Value Called By Crit Value Read Back Blood Gas Notified Time Potassium 4.8 Carbon Dioxide 27 Anion Gap 13 BUN 30 H Creatinine 2.5 H Est GFR ( Amer) 31 Est GFR (Non-Af Amer) 26 POC Glucose (mg/dL) Random Glucose 144 H Calcium 8.4 L Phosphorus 4.2 Magnesium 2.0 Total Bilirubin 2.2 H AST 28 ALT 47 Alkaline Phosphatase 91 Total Protein 5.6 L Albumin 3.1 L Globulin 2.5 Albumin/Globulin Ratio 1.2 Arterial Blood Potassium Urine Color Urine Clarity Urine pH Ur Specific [place] Urine Protein Urine Glucose (UA) Urine Ketones Urine Blood Urine Nitrate Urine Bilirubin Urine Urobilinogen Ur Leukocyte Esterase Urine WBC (Auto) Urine RBC (Auto) Ur Squamous Epith Cells Amorphous Sediment Urine Bacteria Hyaline Casts Urine Yeast (Budding) Tacrolimus (LC/MS/MS) Fingerstick Blood Sugar Results: 116 Review of Systems - Review of Systems Systems not reviewed;Unavailable: Acuity of Condition Critical Care Progress Note - Extremities/Vascular Does the Patient have a Central Venous Catheter?: Yes Insertion Site: Femoral Vein (right) Does the Patient need a Central Venous Catheter?: Yes Does the Patient have a Ramires Catheter?: No Does the Patient need a Ramires Catheter?: No - Prophylaxis GI Prophylaxis GI: PPI - Prophylaxis DVT Prophylaxis DVT: Not Indicated - Nutrition Nutrition: Nutrition Category Date Time Status Pureed [Dysphagia/Modified Consistency Diet] [DIET] Diets 05/15/18 Lunch Active Assessment/Plan - Assessment and Plan (Free Text) Assessment: Patient is a 72 yo male with multiple medical issues who presented with slurred speech and edematous upper extremities. Patient was found to be hypothermic, hypoglycemic, and hypotensive. 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 He has been taken off isolation. His mental status continues to wax and wane. He is weak with poor appetite and has a productive cough. He started HD on 05/12. Patient developed SVT/Vtach and HD was permaturely stopped. Similar episode happened during HD on 05/13. He completed a "SLED" HD 05/15 and 05/16. He is being trialed off of BiPAP. PO intake increasing. HD today 05/18, will likely need every day. Plan: Neuro: AMS- delirium, improving - [place] patient - Neuro checks CV: Afib, RVR - Verapamil 2.5 mg IV Q6H PRN - Diltiazem 180 mg PO daily - Eliquis 2.5 mg PO BID- hold Hypotension- septic shock, improved - Monitor vitals - Off pressors - Albumin 37.5 g IV daily PRN if SBP <90 CHF (HFpEF) - s/p AICD/pacemaker - CXR 05/11: mild-mod venous congestion, worsening small b/l pleural effusions, r eticulated opacifiction in R upper-mid lung and L apex, cardiomegaly - CT chest/abd/pelvis 05/10: moderate b/l pleural effusions, chronic fibrotic changes, moderate pericardial effusions, diffuse anasarca - Echo 05/08: EF 66%, no vegetation seen, mild-mod TR, RV systolic pressure 40- 50 mmHg, small-mod pericardial effusion - Subsequent CXR continue to show congestion, b/l infiltrates, b/l pleural e ffusions Pulm: ARDS, improving- 2/2 fluid overload and/or PNA, DNI - CXR 05/11: mild-mod venous congestion, worsening small b/l pleural effusions, reticulated opacifiction in R upper-mid lung and L apex, cardiomegaly - CXR 05/12: pulm venous congestion, small pleural effusions, background COPD - CT chest/abd/pelvis 05/10: moderate b/l pleural effusions, chronic fibrotic changes, moderate pericardial effusions, diffuse anasarca - Maintain spO2>92%- supplemental O2, BiPAP PRN - ABG 05/17: pH 7.2, pCO2 70, pO2 37 - Duoneb Q4H GI: RUQ pain- suspect constipation - Abd u/s pending Anasarca - CT chest/abd/pelvis 05/10: moderate b/l pleural effusions, chronic fibrotic changes, moderate pericardial effusions, diffuse anasarca - Decreased albumin- stable (3.0) Poor PO intake, improving - Pureed diet - Glucerna supplements x3 - MV/vit C - Protonix 40 mg PO daily - Health Promotion Manager consulted Renal: Renal failure - s/p R kidney transplant in 2004 - Now anuric - Renal u/s: no abnormalities visualized - Elevated BUN, Cr stable/slight improvement with HD (30, 2.5) - HD on 05/12, 05/13, stopped prematurely due to SVT/Vtach - SLED HD on 05/15, 05/16- completed sessions without complications - Next HD today 05/18, will likely be daily - CMP daily - Replete electrolytes PRN - Phoslo 1334 mg PO TID - Solu-cortef 100 mg IV Q8H - Tacrolimus 4 mg PO BID- hold - Tacrolimus level elevated (6.8->4.6->8.1->23.7->18.7)- continue to monitor - Nephrology consulted (Ghanshyam) - Vascular surgery consulted (Sharon)- eval old L AVF for HD access Endo: T2DM - Maintain euglycemia - Hypoglycemia protocol - Accuchecks ACHS with low dose regular ISS Hypothyroidism - TSH improved (42.6->19.3->4.03), free T4 low (0.45), total T4 low (1.22) - Thyroid Abs not detected - Synthroid to 200 mcg IV daily - Endocrinology consulted (Cam) Heme: Thrombocytopenia - Plts stable (79) - Hold ppx heparin - HIT Abs pending Coagulopathy - PT/INR/PTT improved- s/p 4u FFP on 05/12 and Vit K 10 mg IV x 3 days - Fibrinogen wnl (235), and fibrinogen degradation products >40 - Monitor coags- cryoprecip if fibrinogen <150 - Venous Dopplers LE: no DVT Anemia - Anemic at BL- stable s/p 1u PRBC on 05/12 - FOBT negative - Monitor CBC - Folic acid 1 mg PO daily - Thiamine 200 mg IV Q8H ID: Septic shock- improved form initial presentation, now worsening sepsis with concern for hospital acquired PNA - Temp 88.6 on admission, improving (96-97) - Warming blanket - Leukocytosis, worsening- 24 bands - Lactate wnl - Procal 3.68 - Sputum Cx: ESBL - Blood, Urine Cx no growth - Repeat Cx no growth >24 hrs - MRSA screen negative - HIV negative - C. 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 - L knee XR: moderate suprapatellar effusion and soft tissue swelling - Rifampin 600 mg PO daily - Isoniazid 300 mg PO daily - Vit B6 50 mg PO daily - Ortho consulted (La)- no procedures indicated at this time, rec plastics - ID consulted (Charity)- continue dual TB therapy Integumentary: Desquamating rash- improving - Mucous membranes NOT involved - Folic acid 1 mg PO daily - Thiamine 200 mg IV Q8H - Cyanocobalmin 1000 mcg PO daily - Vit A&D ointment - Collagenase - Lac-hydrin - Wound care consult PPx: VTE: contraindicated due to decreasing Plts, skin inflammation GI: PTX 40 mg PO daily PT/OT/ST- OOB to chair Code status: DNR/DNI (POLST) Palliative consult- patient and family initially agreeable to hospice eval Hospice eval- patient and family now willing to pursue further treatment but still DNR/DNI Case discussed with attending, Dr. Malvin Barnett. PGY-1 Natasha Khan D.O. <Roman Barnett - Last Filed: 11/08/18 13:33> CCU Objective - Vital Signs / Intake & Output Vital Signs (Last 4 hours): Vital Signs Temp Pulse Pulse Resp BP BP Pulse Ox 05/18/18 13:00 102/42 L 05/18/18 12:30 117/48 L 05/18/18 12:00 101/58 L 05/18/18 11:30 100/64 05/18/18 11:00 102/45 L 05/18/18 10:45 92/53 L 05/18/18 10:30 105/52 L 05/18/18 10:15 118/52 L 05/18/18 10:00 94.6 F L 96 H 24 119/60 96 05/18/18 09:55 94.6 F L 90 19 121/52 L Intake and Output (Last 8hrs): Intake & Output 05/17/18 05/18/18 05/18/18 22:59 06:59 14:59 Intake Total 280 80 10 Balance 280 80 10 Weight 130 lb 9.6 oz Intake: Intake, IV Amount 280 80 10 Right 80 80 10 Right Femoral Side-Port 200 Other: # Voids Urine, Voided 1 - Medications Active Medications: Active Medications Generic Name Dose Route Start Last Admin Trade Name Freq PRN Reason Stop Dose Admin Albumin Human 37.5 gm 05/12/18 16:00 Albumin Human 25% (12.5 Gm/50 Ml) IV DAILY PRN PER HD IF SBP IS LESS THAN 90 Albumin Human 12.5 gm 05/16/18 11:47 05/18/18 10:36 Albumin Human 25% (12.5 Gm/50 Ml) IV 12.5 gm ONCE PRN Administration hypotension Albuterol/Ipratropium 3 ml 05/12/18 19:00 05/18/18 07:15 Duoneb 3 Mg/0.5 Mg (3 Ml) Ud INH 3 ml RQ4 FAHEEM Administration Calcium Acetate 1,334 mg 05/12/18 13:21 05/18/18 12:00 Phoslo PO 1,334 mg TIDCC FAHEEM Administration Collagenase 0 gm 05/11/18 11:00 05/17/18 10:38 Santyl TOP 1 oin DAILY FAHEEM Administration Cyanocobalamin 1,000 mcg 05/12/18 10:00 05/17/18 09:14 Vitamin B12 1000 Mcg Tab PO 1,000 mcg DAILY FAHEEM Administration Dextrose 0 ml 05/08/18 17:53 05/16/18 21:23 Dextrose 50% Inj IV 50 ml STAT PRN Administration Hypoglycemia Protocol Protocol Dextrose 0 gm 05/08/18 17:53 Glutose 15 PO ONCE PRN Hypoglycemia Protocol Protocol Diltiazem HCl 180 mg 05/14/18 10:00 05/18/18 10:37 Cardizem Cd PO 180 mg DAILY FAHEEM Administration Docusate Sodium 100 mg 05/18/18 18:00 Colace PO BID FAHEEM Folic Acid 1 mg 05/09/18 10:00 05/18/18 10:37 Folic Acid PO 1 mg DAILY FAHEEM Administration Glucagon 0 mg 05/08/18 17:53 Glucagen Diagnostic Kit IM STAT PRN Hypoglycemia Protocol Protocol Heparin Sodium (Porcine) 5,000 units 05/14/18 11:00 05/16/18 10:41 Heparin SC Not Given Q12 FAHEEM Hydrocortisone Sodium Succinate 100 mg 05/16/18 10:45 05/18/18 10:39 Solu-Cortef IV 100 mg Q8H FAHEEM Administration Daptomycin 300 mg/ Sodium 100 mls @ 200 mls/hr 05/10/18 18:30 05/16/18 18:03 Chloride IV 200 mls/hr Q48H FAHEEM Administration Micafungin Sodium 100 mg/ 100 mls @ 100 mls/hr 05/10/18 20:00 05/17/18 19:58 Sodium Chloride IV 100 mls/hr Q24H FAHEEM Administration Protocol Phenylephrine HCl 30 mg/ 253 mls @ 20.24 mls/hr 05/13/18 17:00 05/13/18 18:30 Dextrose IV 0 mcg/min .[id number] PRN 0 mls/hr TITRATE PER MD ORDER Titration Protocol 40 MCG/MIN Meropenem 500 mg/ Sodium 100 mls @ 100 mls/hr 05/14/18 23:00 05/18/18 10:40 Chloride IVPB 100 mls/hr Q12H FAHEEM Administration Protocol Dextrose 500 mls @ 10 mls/hr 05/17/18 07:00 05/18/18 07:23 Dextrose 10% In Water IV 10 mls/hr .Q24H FAHEEM Administration Insulin Human Regular 0 unit 05/16/18 16:50 05/18/18 11:30 Novolin R SC Not Given ACHS FAHEEM Protocol Isoniazid 300 mg 05/15/18 12:00 05/18/18 10:38 Niazid PO 300 mg DAILY FAHEEM Administration Protocol Lactic Acid 0 gm 05/12/18 07:00 05/18/18 06:44 Lac-Hydrin 12% Lotion (225 G) EXT 1 applic Q8 FAHEEM Administration Levothyroxine Sodium 200 mcg 05/17/18 06:00 05/18/18 06:43 Levothyroxine IVP 200 mcg Q24H FAHEEM Administration Multivitamins 1 tab 05/15/18 13:00 05/18/18 10:38 Hexavitamin PO 1 tab DAILY FAHEEM Administration Pantoprazole Sodium 40 mg 05/12/18 21:00 05/18/18 10:36 Protonix Inj IVP 40 mg Q12H FAHEEM Administration Polyethylene Glycol 17 gm 05/18/18 12:14 Miralax PO BID PRN Constipation Pyridoxine HCl 50 mg 05/09/18 10:00 05/17/18 09:14 Vitamin B6 50 Mg Tab PO 50 mg DAILY FAHEEM Administration Rifampin 600 mg 05/15/18 12:00 05/17/18 09:13 Rifampin Cap PO 600 mg DAILY FAHEEM Administration Protocol Tacrolimus 4 mg 05/15/18 11:35 05/17/18 10:16 Prograf Cap PO Not Given BID FAHEEM Thiamine HCl 200 mg 05/11/18 09:45 05/18/18 10:38 Vitamin B1 Inj IV 200 mg Q8H FAHEEM Administration Verapamil HCl 2.5 mg 05/13/18 16:52 05/15/18 21:00 Verapamil Inj IVP 2.5 mg Q6H PRN Administration Heart rate Vitamin A 0 ea 05/11/18 18:00 05/18/18 10:37 Vitamin A & D Oint Ud Foilpak TOP 1 ea BID FAHEEM Administration - Patient Studies Lab Studies: Microbiology Studies 05/17/18 09:30 Blood Culture - Preliminary Blood NO GROWTH AFTER 24 HOURS 05/17/18 09:00 Blood Culture - Preliminary Blood NO GROWTH AFTER 24 HOURS Lab Studies 05/18/18 05/18/18 05/18/18 Range/Units 07:08 06:15 06:15 WBC 17.1 H (4.8-10.8) K/uL RBC 3.15 L (4.40-5.90) Mil/uL Hgb 9.4 L (12.0-18.0) g/dL Hct 29.5 L (35.0-51.0) % MCV 93.7 (80.0-94.0) fL MCH 29.9 (27.0-31.0) pg MCHC 31.9 L (33.0-37.0) g/dL RDW 25.3 H (11.5-14.5) % Plt Count 79 L (130-400) K/uL MPV 9.9 (7.2-11.7) fL Neut % (Auto) 95.1 H (50.0-75.0) % Lymph % (Auto) 2.5 L (20.0-40.0) % [place] % (Auto) 2.3 (0.0-10.0) % Eos % (Auto) 0.0 (0.0-4.0) % Baso % (Auto) 0.1 (0.0-2.0) % Neut # (Auto) 16.3 H (1.8-7.0) K/uL Lymph # (Auto) 0.4 L (1.0-4.3) K/uL [place] # (Auto) 0.4 (0.0-0.8) K/uL Eos # (Auto) 0.0 (0.0-0.7) K/uL Baso # (Auto) 0.0 (0.0-0.2) K/uL Neutrophils % (Manual) 71 (50-75) % Band Neutrophils % 24 H* (0-2) % Lymphocytes % (Manual) 4 L (20-40) % Monocytes % (Manual) 1 (0-10) % Platelet Estimate Decreased L (NORMAL) Polychromasia Slight Hypochromasia (manual) Slight Anisocytosis (manual) Moderate Macrocytosis (manual) Slight PT (9.7-12.2) SECONDS INR APTT (21-34) SECONDS Sodium 143 (132-148) mmol/L Potassium 4.8 (3.6-5.2) mmol/L Chloride 107 (98-107) mmol/L Carbon Dioxide 27 (22-30) mmol/L Anion Gap 13 (10-20) BUN 30 H (9-20) mg/dL Creatinine 2.5 H (0.8-1.5) mg/dL Est GFR ( Amer) 31 Est GFR (Non-Af Amer) 26 POC Glucose (mg/dL) (65-110) mg/dL Random Glucose 144 H (75-110) mg/dL Calcium 8.4 L (8.6-10.4) mg/dl Phosphorus 4.2 (2.5-4.5) mg/dL Magnesium 2.0 (1.6-2.3) mg/dL Total Bilirubin 2.2 H (0.2-1.3) mg/dL AST 28 (17-59) U/L ALT 47 (21-72) U/L Alkaline Phosphatase 91 (38-126) U/L Total Protein 5.6 L (6.3-8.3) g/dL Albumin 3.1 L (3.5-5.0) g/dL Globulin 2.5 (2.2-3.9) gm/dL Albumin/Globulin Ratio 1.2 (1.0-2.1) Cortisol AM Sample > 123.0 H (4.46-22.7) ug/dL Tacrolimus (LC/MS/MS) (5.0-20.0) mcg/L 05/18/18 05/17/18 05/17/18 Range/Units 06:15 21:38 16:18 WBC (4.8-10.8) K/uL RBC (4.40-5.90) Mil/uL Hgb (12.0-18.0) g/dL Hct (35.0-51.0) % MCV (80.0-94.0) fL MCH (27.0-31.0) pg MCHC (33.0-37.0) g/dL RDW (11.5-14.5) % Plt Count (130-400) K/uL MPV (7.2-11.7) fL Neut % (Auto) (50.0-75.0) % Lymph % (Auto) (20.0-40.0) % [place] % (Auto) (0.0-10.0) % Eos % (Auto) (0.0-4.0) % Baso % (Auto) (0.0-2.0) % Neut # (Auto) (1.8-7.0) K/uL Lymph # (Auto) (1.0-4.3) K/uL [place] # (Auto) (0.0-0.8) K/uL Eos # (Auto) (0.0-0.7) K/uL Baso # (Auto) (0.0-0.2) K/uL Neutrophils % (Manual) (50-75) % Band Neutrophils % (0-2) % Lymphocytes % (Manual) (20-40) % Monocytes % (Manual) (0-10) % Platelet Estimate (NORMAL) Polychromasia Hypochromasia (manual) Anisocytosis (manual) Macrocytosis (manual) PT 10.8 (9.7-12.2) SECONDS INR 1.0 APTT 40 H (21-34) SECONDS Sodium (132-148) mmol/L Potassium (3.6-5.2) mmol/L Chloride (98-107) mmol/L Carbon Dioxide (22-30) mmol/L Anion Gap (10-20) BUN (9-20) mg/dL Creatinine (0.8-1.5) mg/dL Est GFR ( Amer) Est GFR (Non-Af Amer) POC Glucose (mg/dL) 116 H 142 H (65-110) mg/dL Random Glucose (75-110) mg/dL Calcium (8.6-10.4) mg/dl Phosphorus (2.5-4.5) mg/dL Magnesium (1.6-2.3) mg/dL Total Bilirubin (0.2-1.3) mg/dL AST (17-59) U/L ALT (21-72) U/L Alkaline Phosphatase (38-126) U/L Total Protein (6.3-8.3) g/dL Albumin (3.5-5.0) g/dL Globulin (2.2-3.9) gm/dL Albumin/Globulin Ratio (1.0-2.1) Cortisol AM Sample (4.46-22.7) ug/dL Tacrolimus (LC/MS/MS) (5.0-20.0) mcg/L 05/16/18 Range/Units 07:52 WBC (4.8-10.8) K/uL RBC (4.40-5.90) Mil/uL Hgb (12.0-18.0) g/dL Hct (35.0-51.0) % MCV (80.0-94.0) fL MCH (27.0-31.0) pg MCHC (33.0-37.0) g/dL RDW (11.5-14.5) % Plt Count (130-400) K/uL MPV (7.2-11.7) fL Neut % (Auto) (50.0-75.0) % Lymph % (Auto) (20.0-40.0) % [place] % (Auto) (0.0-10.0) % Eos % (Auto) (0.0-4.0) % Baso % (Auto) (0.0-2.0) % Neut # (Auto) (1.8-7.0) K/uL Lymph # (Auto) (1.0-4.3) K/uL [place] # (Auto) (0.0-0.8) K/uL Eos # (Auto) (0.0-0.7) K/uL Baso # (Auto) (0.0-0.2) K/uL Neutrophils % (Manual) (50-75) % Band Neutrophils % (0-2) % Lymphocytes % (Manual) (20-40) % Monocytes % (Manual) (0-10) % Platelet Estimate (NORMAL) Polychromasia Hypochromasia (manual) Anisocytosis (manual) Macrocytosis (manual) PT (9.7-12.2) SECONDS INR APTT (21-34) SECONDS Sodium (132-148) mmol/L Potassium (3.6-5.2) mmol/L Chloride (98-107) mmol/L Carbon Dioxide (22-30) mmol/L Anion Gap (10-20) BUN (9-20) mg/dL Creatinine (0.8-1.5) mg/dL Est GFR ( Amer) Est GFR (Non-Af Amer) POC Glucose (mg/dL) (65-110) mg/dL Random Glucose (75-110) mg/dL Calcium (8.6-10.4) mg/dl Phosphorus (2.5-4.5) mg/dL Magnesium (1.6-2.3) mg/dL Total Bilirubin (0.2-1.3) mg/dL AST (17-59) U/L ALT (21-72) U/L Alkaline Phosphatase (38-126) U/L Total Protein (6.3-8.3) g/dL Albumin (3.5-5.0) g/dL Globulin (2.2-3.9) gm/dL Albumin/Globulin Ratio (1.0-2.1) Cortisol AM Sample (4.46-22.7) ug/dL Tacrolimus (LC/MS/MS) 18.7 (5.0-20.0) mcg/L Laboratory Results - last 24 hr 05/16/18 05/17/18 05/17/18 07:52 16:18 21:38 WBC RBC Hgb Hct MCV MCH MCHC RDW Plt Count MPV Neut % (Auto) Lymph % (Auto) [place] % (Auto) Eos % (Auto) Baso % (Auto) Neut # (Auto) Lymph # (Auto) [place] # (Auto) Eos # (Auto) Baso # (Auto) Neutrophils % (Manual) Band Neutrophils % Lymphocytes % (Manual) Monocytes % (Manual) Platelet Estimate Polychromasia Hypochromasia (manual) Anisocytosis (manual) Macrocytosis (manual) PT INR APTT Sodium Potassium Chloride Carbon Dioxide Anion Gap BUN Creatinine Est GFR ( Amer) Est GFR (Non-Af Amer) POC Glucose (mg/dL) 142 H 116 H Random Glucose Calcium Phosphorus Magnesium Total Bilirubin AST ALT Alkaline Phosphatase Total Protein Albumin Globulin Albumin/Globulin Ratio Cortisol AM Sample Tacrolimus (LC/MS/MS) 18.7 05/18/18 05/18/18 05/18/18 06:15 06:15 06:15 WBC 17.1 H RBC 3.15 L Hgb 9.4 L Hct 29.5 L MCV 93.7 MCH 29.9 MCHC 31.9 L RDW 25.3 H Plt Count 79 L MPV 9.9 Neut % (Auto) 95.1 H Lymph % (Auto) 2.5 L [place] % (Auto) 2.3 Eos % (Auto) 0.0 Baso % (Auto) 0.1 Neut # (Auto) 16.3 H Lymph # (Auto) 0.4 L [place] # (Auto) 0.4 Eos # (Auto) 0.0 Baso # (Auto) 0.0 Neutrophils % (Manual) 71 Band Neutrophils % 24 H* Lymphocytes % (Manual) 4 L Monocytes % (Manual) 1 Platelet Estimate Decreased L Polychromasia Slight Hypochromasia (manual) Slight Anisocytosis (manual) Moderate Macrocytosis (manual) Slight PT 10.8 INR 1.0 APTT 40 H Sodium 143 Potassium 4.8 Chloride 107 Carbon Dioxide 27 Anion Gap 13 BUN 30 H Creatinine 2.5 H Est GFR ( Amer) 31 Est GFR (Non-Af Amer) 26 POC Glucose (mg/dL) Random Glucose 144 H Calcium 8.4 L Phosphorus 4.2 Magnesium 2.0 Total Bilirubin 2.2 H AST 28 ALT 47 Alkaline Phosphatase 91 Total Protein 5.6 L Albumin 3.1 L Globulin 2.5 Albumin/Globulin Ratio 1.2 Cortisol AM Sample Tacrolimus (LC/MS/MS) 05/18/18 07:08 WBC RBC Hgb Hct MCV MCH MCHC RDW Plt Count MPV Neut % (Auto) Lymph % (Auto) [place] % (Auto) Eos % (Auto) Baso % (Auto) Neut # (Auto) Lymph # (Auto) [place] # (Auto) Eos # (Auto) Baso # (Auto) Neutrophils % (Manual) Band Neutrophils % Lymphocytes % (Manual) Monocytes % (Manual) Platelet Estimate Polychromasia Hypochromasia (manual) Anisocytosis (manual) Macrocytosis (manual) PT INR APTT Sodium Potassium Chloride Carbon Dioxide Anion Gap BUN Creatinine Est GFR ( Amer) Est GFR (Non-Af Amer) POC Glucose (mg/dL) Random Glucose Calcium Phosphorus Magnesium Total Bilirubin AST ALT Alkaline Phosphatase Total Protein Albumin Globulin Albumin/Globulin Ratio Cortisol AM Sample > 123.0 H Tacrolimus (LC/MS/MS) Critical Care Progress Note - Nutrition Nutrition: Nutrition Category Date Time Status Pureed [Dysphagia/Modified Consistency Diet] [DIET] Diets 05/15/18 Lunch Active Assessment/Plan - Assessment and Plan (Free Text) Plan: Patient seen and examined at bedside. Patient awake alert. -not on pressors -HD today -no tachycardia today -obtain vasular eval for left arm AVF or [id number] catheter. -Above resident documents my clinical management and physical exam Patient remains hemodynamically stable. - Date & Time Date: 05/18/18 Time: 13:33
[2018-05-18] MEDS: (Novolin R) Insulin Human Regular 100 units/ml vial SC SCH ×4 (07:43→21:25)
--- NOTE | 2018-05-18 08:42 | CP.PCM.PN ---
Subjective - Date & Time of Evaluation Date of Evaluation: 05/18/18 Time of Evaluation: 08:39 - Subjective Subjective: Remains on bipap, dyspneic still oliguric CXR with CHF, severe tacro levels high- being held Objective - Vital Signs/Intake and Output Vital Signs (last 24 hours): Temp Pulse Resp BP Pulse Ox 97.4 F L 92 H 10 L 127/49 L 100 05/18/18 04:00 05/18/18 07:19 05/18/18 07:19 05/18/18 07:19 05/18/18 07:19 Intake and Output: 05/18/18 05/18/18 06:59 18:59 Intake Total 320 10 Balance 320 10 - Medications Medications: Current Medications Albumin Human (Albumin Human 25% (12.5 Gm/50 Ml)) 37.5 gm IV DAILY PRN PRN Reason: PER HD IF SBP IS LESS THAN 90 Albumin Human (Albumin Human 25% (12.5 Gm/50 Ml)) 12.5 gm IV ONCE PRN PRN Reason: hypotension Albuterol/Ipratropium (Duoneb 3 Mg/0.5 Mg (3 Ml) Ud) 3 ml INH RQ4 [facility] Last Admin: 05/18/18 07:15 Dose: 3 ml Calcium Acetate (Phoslo) 1,334 mg PO TIDCC [facility] Last Admin: 05/18/18 07:47 Dose: 1,334 mg Collagenase (Santyl) 0 gm TOP DAILY [facility] Last Admin: 05/17/18 10:38 Dose: 1 oin Cyanocobalamin (Vitamin B12 1000 Mcg Tab) 1,000 mcg PO DAILY [facility] Last Admin: 05/17/18 09:14 Dose: 1,000 mcg Dextrose (Dextrose 50% Inj) 0 ml IV STAT PRN; Protocol PRN Reason: Hypoglycemia Protocol Last Admin: 05/16/18 21:23 Dose: 50 ml Dextrose (Glutose 15) 0 gm PO ONCE PRN; Protocol PRN Reason: Hypoglycemia Protocol Diltiazem HCl (Cardizem Cd) 180 mg PO DAILY [facility] Last Admin: 05/17/18 09:12 Dose: 180 mg Folic Acid (Folic Acid) 1 mg PO DAILY [facility] Last Admin: 05/17/18 09:12 Dose: 1 mg Glucagon (Glucagen Diagnostic Kit) 0 mg IM STAT PRN; Protocol PRN Reason: Hypoglycemia Protocol Heparin Sodium (Porcine) (Heparin) 5,000 units SC Q12 FAHEEM Last Admin: 05/16/18 10:41 Dose: Not Given Hydrocortisone Sodium Succinate (Solu-Cortef) 100 mg IV Q8H FAHEEM Last Admin: 05/18/18 02:07 Dose: 100 mg Daptomycin 300 mg/ Sodium (Chloride) 100 mls @ 200 mls/hr IV Q48H FAHEEM Last Admin: 05/16/18 18:03 Dose: 200 mls/hr Micafungin Sodium 100 mg/ (Sodium Chloride) 100 mls @ 100 mls/hr IV Q24H FAHEEM; Protocol Last Admin: 05/17/18 19:58 Dose: 100 mls/hr Phenylephrine HCl 30 mg/ (Dextrose) 253 mls @ 20.24 mls/hr IV .[id number] PRN; Protocol PRN Reason: TITRATE PER MD ORDER Last Titration: 05/13/18 18:30 Dose: 0 mcg/min, 0 mls/hr Meropenem 500 mg/ Sodium (Chloride) 100 mls @ 100 mls/hr IVPB Q12H FAHEEM; Protocol Last Admin: 05/17/18 22:29 Dose: 100 mls/hr Dextrose (Dextrose 10% In Water) 500 mls @ 10 mls/hr IV .Q24H FAHEEM Last Admin: 05/18/18 07:23 Dose: 10 mls/hr Insulin Human Regular (Novolin R) 0 unit SC ACHS FAHEEM; Protocol Last Admin: 05/18/18 07:43 Dose: Not Given Isoniazid (Niazid) 300 mg PO DAILY [facility]; Protocol Last Admin: 05/17/18 12:14 Dose: 300 mg Lactic Acid (Lac-Hydrin 12% Lotion (225 G)) 0 gm EXT Q8 FAHEEM Last Admin: 05/18/18 06:44 Dose: 1 applic Levothyroxine Sodium (Levothyroxine) 200 mcg IVP Q24H [facility] Last Admin: 05/18/18 06:43 Dose: 200 mcg Multivitamins (Hexavitamin) 1 tab PO DAILY [facility] Last Admin: 05/16/18 14:01 Dose: Not Given Pantoprazole Sodium (Protonix Inj) 40 mg IVP Q12H FAHEEM Last Admin: 05/17/18 20:02 Dose: 40 mg Pyridoxine HCl (Vitamin B6 50 Mg Tab) 50 mg PO DAILY [facility] Last Admin: 05/17/18 09:14 Dose: 50 mg Rifampin (Rifampin Cap) 600 mg PO DAILY [facility]; Protocol Last Admin: 05/17/18 09:13 Dose: 600 mg Tacrolimus (Prograf Cap) 4 mg PO BID [facility] Last Admin: 05/17/18 10:16 Dose: Not Given Thiamine HCl (Vitamin B1 Inj) 200 mg IV Q8H [facility] Last Admin: 05/18/18 02:07 Dose: 200 mg Verapamil HCl (Verapamil Inj) 2.5 mg IVP Q6H PRN PRN Reason: Heart rate Last Admin: 05/15/18 21:00 Dose: 2.5 mg Vitamin A (Vitamin A & D Oint Ud Foilpak) 0 ea TOP BID [facility] Last Admin: 05/17/18 18:26 Dose: 1 ea - Labs Labs: 05/18/18 06:15 05/18/18 06:15 PT 10.8 SECONDS (9.7-12.2) 05/18/18 06:15 INR 1.0 05/18/18 06:15 APTT 40 SECONDS (21-34) H 05/18/18 06:15 - Constitutional Appears: In Acute Distress, Confused, Chronically Ill - Head Exam Head Exam: ATRAUMATIC, NORMAL INSPECTION - Eye Exam Eye Exam: EOMI, Normal appearance - Neck Exam Neck Exam: Normal Inspection. absent: Tenderness - Respiratory Exam Respiratory Exam: Rhonchi, Respiratory Distress - Cardiovascular Exam Cardiovascular Exam: Tachycardia, Irregular Rhythm - GI/Abdominal Exam GI & Abdominal Exam: Soft. absent: Tenderness - Extremities Exam Extremities Exam: Normal Inspection. 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 feedings monitor lytes
[2018-05-18 08:47] LABS: BANDS 24 % (0-2); LYMPHOCYTE 4 % (20-40); MONOCYTE 1 % (0-10); NEUTROPHIL 71 % (50-75); PLATELET ESTIMATE DECREASED (NORMAL); TOTAL CELLS COUNTED 100
[2018-05-18 08:48] LABS: ANISOCYTOSIS MODERATE; HYPOCHROMIC SLIGHT; POLYCHROMIC SLIGHT
[2018-05-18] MEDS: Albumin Human 25% (12.5 gm/50 ml) IV PRN (10:36)
[2018-05-18] MEDS: diltiaZEM 180 mg/24 Hours CD Cap PO SCH (10:37)
[2018-05-18] MEDS: Vitamins A & D Oint UD Foilpak TOP SCH ×2 (10:37→17:34)
[2018-05-18] MEDS: Multiple Vitamins Tab PO SCH (10:38)
[2018-05-18] MEDS: Meropenem 500 MG in Sodium Chloride 0.9% 100 ML IVPB SCH ×2 (10:40→23:49)
[2018-05-18] MEDS ORDERED: Albumin Human 25% (12.5 gm/50 ml) IV ONE (11:00)
--- NOTE | 2018-05-18 12:07 | VASCLAB ---
Date of service: 05/15/2018 PROCEDURE: Upper Extremity Venous Duplex Exam HISTORY: Upper extremities swelling, r/o DVT PRIORS: None. TECHNIQUE: Bilateral upper extremity, internal jugular, subclavian, axillary, brachial, ulnar, radial, basilic and upper cephalic veins were evaluated. Flow was assessed with color Doppler, compressibility, assessment of phasic flow and augmentation response. Report prepared by Cristina Gates Britt FINDINGS: RIGHT: 1. Internal Jugular: 1.1. Compressibility - Fully compressible: Thrombus - None : Flow - Phasic: Augmentation -Normal: Reflux - None. 2. Subclavian: 2.1. Compressibility - Fully compressible: Thrombus - None : Flow - Phasic: Augmentation -Normal: Reflux - None. 3. Axillary: 3.1. Compressibility - Fully compressible: Thrombus - None : Flow - Phasic: Augmentation -Normal: Reflux - None. 4. Brachial: (Distal view only) dressing in upper arm. 4.1. Compressibility - Fully compressible: Thrombus - None: Flow - Phasic: Augmentation -Normal: Reflux - None. 5. Ulnar: 5.1. Compressibility - Fully compressible: Thrombus - None: Flow - Phasic: Augmentation -Normal: Reflux - None. 6. Radial: 6.1. Compressibility - Fully compressible: Thrombus - None: Flow - Phasic: Augmentation - Normal: Reflux - None. 7. Cephalic: 7.1. Compressibility - Fully compressible: Thrombus - None: Flow - Phasic: Augmentation -Normal: Reflux - None. 8. Basilic: 8.1. Not visualized. LEFT: 1. Internal Jugular: 1.1. Compressibility - Fully compressible: Thrombus - None : Flow - Phasic: Augmentation -Normal: Reflux - None. 2. Subclavian: 2.1. Thrombus - None : Flow - Phasic: Augmentation -Normal: Reflux - None. 3. Axillary: 3.1. Compressibility - Fully compressible: Thrombus - None : Flow - Phasic: Augmentation -Normal: Reflux - None. 4. Brachial: 4.1. Compressibility - Fully compressible: Thrombus - None: Flow - Phasic: Augmentation -Normal: Reflux - None. 5. Ulnar: 5.1. Compressibility - Fully compressible: Thrombus - None: Flow - Phasic: Augmentation -Normal: Reflux - None. 6. Radial: 6.1. Compressibility - Fully compressible: Thrombus - None: Flow - Phasic: Augmentation - Normal: Reflux - None. 7. Cephalic: (Upper arm view) 7.1. Compressibility - Fully compressible: Thrombus - None: Flow - Phasic: Augmentation -Normal: Reflux - None. 8. Basilic: (Upper arm view) 8.1. Compressibility - Fully compressible: Thrombus - None: Flow - Phasic: Augmentation -Normal: Reflux - None. OTHER FINDINGS: Right: None. Left: The left subclavian vein appeared patent by color fill analysis. Unable to compress the subclavian vein due to implanted device in area. Incidental finding of a non functioning dialysis shunt. IMPRESSION: Right: No evidence of vein thrombosis of the right upper extremity with excellent venous flow. Normal valve function noted of the right side. Left: No evidence of vein thrombosis of the left upper extremity with excellent venous flow. Normal valve function noted of the left side.
[2018-05-18] MEDS ORDERED: POLYETHYLENE GLYCOL 3350 17 GM/Dose PACKET PO PRN (12:14)
--- NOTE | 2018-05-18 12:34 | VASCLAB ---
Date of service: 05/15/2018 PROCEDURE: Lower Extremity Venous Duplex Exam. HISTORY: Swelling, r/o DVT PRIORS: 03/28/2010, normal. TECHNIQUE: Bilateral common femoral, femoral, popliteal and posterior tibial, peroneal and great saphenous veins were evaluated. Flow was assessed with color Doppler, compressibility, assessment of phasic flow and augmentation response. Report prepared by BROOKE Gomez FINDINGS: RIGHT: 1. Common Femoral Vein: 1.1. Unable to examine/catheter in place. 2. Femoral Vein: (mid and distal views only) 2.1. Compressibility - Fully compressible: Thrombus - None : Flow - Phasic: Augmentation -Normal: Reflux - None. 3. Popliteal Vein: 3.1. Compressibility - Fully compressible: Thrombus - None : Flow - Phasic: Augmentation -Normal: Reflux - None. 4. Posterior Tibial Vein: 4.1. Compressibility - Fully compressible: Thrombus - None: Flow - Phasic: Augmentation -Normal: Reflux - None. 5. Peroneal Vein: 5.1. Compressibility - Fully compressible: Thrombus - None: Flow - Phasic: Augmentation -Normal: Reflux - None. 6. Great Saphenous Vein: 6.1. Compressibility - Fully compressible: Thrombus - None: Flow - Phasic: Augmentation - Normal: Reflux - None. LEFT: 1. Common Femoral Vein: 1.1. Compressibility - Fully compressible: Thrombus - None: Flow - Phasic: Augmentation -Normal: Reflux - None. 2. Femoral Vein: 2.1. Compressibility - Fully compressible: Thrombus - None: Flow - Phasic: Augmentation -Normal: Reflux - None. 3. Popliteal Vein: 3.1. Compressibility - Fully compressible: Thrombus - None : Flow - Phasic: Augmentation -Normal: Reflux - None. 4. Posterior Tibial Vein: 4.1. Compressibility - Fully compressible: Thrombus - None: Flow - Phasic: Augmentation -Normal: Reflux - None. 5. Peroneal Vein: 5.1. Compressibility - Fully compressible: Thrombus - None: Flow - Phasic: Augmentation -Normal: Reflux - None. 6. Great Saphenous Vein: 6.1. Compressibility - Fully compressible: Thrombus - None: Flow - Phasic: Augmentation - Normal: Reflux - None. OTHER FINDINGS: Right: None significant. Left: None significant. IMPRESSION: Right: No evidence of deep or superficial vein thrombosis of the right lower extremity. Normal valve function noted of the right side. Right common femoral vein not seen. Left: No evidence of deep or superficial vein thrombosis of the left lower extremity. Normal valve function noted of the left side.
[2018-05-18] MEDS: Collagenase 250 Units/gm Ointment(30 gm) TOP SCH (13:42)
--- NOTE | 2018-05-18 18:21 | CP.PCM.CON ---
History of Present Illness - History of Present Illness History of Present Illness: Vascular surgery consult note for Dr. Herrera Pt is a 72M with PMH including COPD, CHF with left placed AICD, ESRD for which he had an AVF creation 13 years ago but underwent a subsequent renal transplant and was taken off dialysis. Patient was recently admitted to the ICU for septic shock and had a femoral shiley inserted in the ICU for HD for recurrent renal failure. There was an attempt to place a catheter in the R IJ but it was unsuccessful d/t resistence to the wire and a clot was removed when the wire was retracted. Patient has continued need HD and has been stabilizing, so ICU team has requested evaluation for more permanent HD access. Patient has bilateral upper extremity edema and erythema, some increased work of breathing on high flow nasal cannula, but is alert and able to interact. Pt has a current DNR/DNI status, but after long talks with family and patient, patient is willing to temporarily rescind DNI only for the period of the operation, if intubation is necessary, with extubation shortly after the operation. US of the upper extremity BL showed no evidence of thrombus, but showed no flow through the AVF of the left upper extremity PMH: COPD, CHF, ESRD, DM, TB of the bone, cardiomyopathy, HLD, hypothyroidism, PUD PSH: renal transplant, AVF left upper extremity, AICD placement ALL: metoprolol Review of Systems - Review of Systems All systems: reviewed and no additional remarkable complaints except (as per HPI) Past Patient History - Infectious Disease Hx of Infectious Diseases: C.diff - Tetanus Immunizations Tetanus Immunization: Unknown - Past Medical History & Family History Past Medical History?: Yes Past Family History: Reviewed and not pertinent - Past Social History Smoking Status: Former Smoker Chewing Tobacco Use: No Cigar Use: No Alcohol: None Drugs: Denies Home Situation {Lives}: With Family (mother) - CARDIAC Hx Congestive Heart Failure: Yes Hx Hypercholesterolemia: Yes Hx Hypertension: Yes - PULMONARY Hx Chronic Obstructive Pulmonary Disease (COPD): Yes (Emphysema,) - NEUROLOGICAL Hx Neurological Disorder: Yes - HEENT Hx HEENT Problems: Yes Hx Cataracts: Yes (bilat iol,had surgery) - RENAL Hx Chronic Kidney Disease: Yes (s/p renal transplant) - ENDOCRINE/METABOLIC Hx Hypothyroidism: Yes - HEMATOLOGICAL/ONCOLOGICAL Hx Anemia: Yes - INTEGUMENTARY Hx Dermatological Problems: Yes (sun sentivity) Hx Eczema: Yes - MUSCULOSKELETAL/RHEUMATOLOGICAL Hx Arthritis: Yes (Gout) - GASTROINTESTINAL Hx Gastritis: Yes - GENITOURINARY/GYNECOLOGICAL Hx Genitourinary Disorders: No - PSYCHIATRIC Hx Substance Use: No - SURGICAL HISTORY Hx Surgeries: Yes (Hemicolectomy for colon cancer) Hx Angiogram: Yes (ICD insertion for ventricular tachycardia.) Hx Cataract Extraction: Yes Hx Cardiac Catheterization: Yes Hx Kidney Transplant: Yes () Other/Comment: THYROID SURGERY-2004. Hx of perforated bowel corrected with surgery. AICD - ANESTHESIA Hx Anesthesia: Yes Hx Anesthesia Reactions: No Hx Malignant Hyperthermia: No Meds Allergies/Adverse Reactions: Allergies Allergy/AdvReac Type Severity Reaction Status Date / Time metoprolol Allergy Intermediate ITCHING Verified 02/01/18 11:29 - Medications Medications: Current Medications Albumin Human (Albumin Human 25% (12.5 Gm/50 Ml)) 37.5 gm IV DAILY PRN PRN Reason: PER HD IF SBP IS LESS THAN 90 Albumin Human (Albumin Human 25% (12.5 Gm/50 Ml)) 12.5 gm IV ONCE PRN PRN Reason: hypotension Last Admin: 05/18/18 10:36 Dose: 12.5 gm Albuterol/Ipratropium (Duoneb 3 Mg/0.5 Mg (3 Ml) Ud) 3 ml INH RQ4 [facility] Last Admin: 05/18/18 16:12 Dose: 3 ml Calcium Acetate (Phoslo) 1,334 mg PO TIDCC [facility] Last Admin: 05/18/18 17:25 Dose: Not Given Collagenase (Santyl) 0 gm TOP DAILY [facility] Last Admin: 05/18/18 13:42 Dose: 1 oin Cyanocobalamin (Vitamin B12 1000 Mcg Tab) 1,000 mcg PO DAILY [facility] Last Admin: 05/18/18 11:00 Dose: 1,000 mcg Dextrose (Dextrose 50% Inj) 0 ml IV STAT PRN; Protocol PRN Reason: Hypoglycemia Protocol Last Admin: 05/16/18 21:23 Dose: 50 ml Dextrose (Glutose 15) 0 gm PO ONCE PRN; Protocol PRN Reason: Hypoglycemia Protocol Diltiazem HCl (Cardizem Cd) 180 mg PO DAILY [facility] Last Admin: 05/18/18 10:37 Dose: 180 mg Docusate Sodium (Colace) 100 mg PO BID PRN PRN Reason: Constipation Folic Acid (Folic Acid) 1 mg PO DAILY [facility] Last Admin: 05/18/18 10:37 Dose: 1 mg Glucagon (Glucagen Diagnostic Kit) 0 mg IM STAT PRN; Protocol PRN Reason: Hypoglycemia Protocol Heparin Sodium (Porcine) (Heparin) 5,000 units SC Q12 [facility] Last Admin: 05/16/18 10:41 Dose: Not Given Hydrocortisone Sodium Succinate (Solu-Cortef) 100 mg IV Q8H [facility] Last Admin: 05/18/18 17:51 Dose: 100 mg Daptomycin 300 mg/ Sodium (Chloride) 100 mls @ 200 mls/hr IV Q48H [facility] Last Admin: 05/18/18 17:33 Dose: 200 mls/hr Micafungin Sodium 100 mg/ (Sodium Chloride) 100 mls @ 100 mls/hr IV Q24H [facility]; Protocol Last Admin: 05/17/18 19:58 Dose: 100 mls/hr Phenylephrine HCl 30 mg/ (Dextrose) 253 mls @ 20.24 mls/hr IV .[id number] PRN; Protocol PRN Reason: TITRATE PER MD ORDER Last Titration: 05/13/18 18:30 Dose: 0 mcg/min, 0 mls/hr Meropenem 500 mg/ Sodium (Chloride) 100 mls @ 100 mls/hr IVPB Q12H [facility]; Prot ocol Last Admin: 05/18/18 10:40 Dose: 100 mls/hr Dextrose (Dextrose 10% In Water) 500 mls @ 10 mls/hr IV .Q24H [facility] Last Admin: 05/18/18 07:23 Dose: 10 mls/hr Insulin Human Regular (Novolin R) 0 unit SC ACHS [facility]; Protocol Last Admin: 05/18/18 16:30 Dose: Not Given Isoniazid (Niazid) 300 mg PO DAILY [facility]; Protocol Last Admin: 05/18/18 10:38 Dose: 300 mg Lactic Acid (Lac-Hydrin 12% Lotion (225 G)) 0 gm EXT Q8 [facility] Last Admin: 05/18/18 13:41 Dose: 1 applic Levothyroxine Sodium (Levothyroxine) 200 mcg IVP Q24H [facility] Last Admin: 05/18/18 06:43 Dose: 200 mcg Multivitamins (Hexavitamin) 1 tab PO DAILY [facility] Last Admin: 05/18/18 10:38 Dose: 1 tab Pantoprazole Sodium (Protonix Inj) 40 mg IVP Q12H [facility] Last Admin: 05/18/18 10:36 Dose: 40 mg Polyethylene Glycol (Miralax) 17 gm PO BID PRN PRN Reason: Constipation Pyridoxine HCl (Vitamin B6 50 Mg Tab) 50 mg PO DAILY [facility] Last Admin: 05/18/18 11:00 Dose: 50 mg Rifampin (Rifampin Cap) 600 mg PO DAILY [facility]; Protocol Last Admin: 05/18/18 11:00 Dose: 600 mg Tacrolimus (Prograf Cap) 4 mg PO BID [facility] Last Admin: 05/17/18 10:16 Dose: Not Given Thiamine HCl (Vitamin B1 Inj) 200 mg IV Q8H [facility] Last Admin: 05/18/18 10:38 Dose: 200 mg Verapamil HCl (Verapamil Inj) 2.5 mg IVP Q6H PRN PRN Reason: Heart rate Last Admin: 05/15/18 21:00 Dose: 2.5 mg Vitamin A (Vitamin A & D Oint Ud Foilpak) 0 ea TOP BID [facility] Last Admin: 05/18/18 17:34 Dose: 1 ea Physical Exam - Constitutional Appears: No Acute Distress - Head Exam Head Exam: ATRAUMATIC, NORMOCEPHALIC - Eye Exam Eye Exam: Conjunctival injection, Normal appearance. absent: Scleral icterus - ENT Exam ENT Exam: Mucous Membranes Moist, Normal Oropharynx - Respiratory Exam Respiratory Exam: absent: NORMAL BREATHING PATTERN Additional comments: tachypnea, productive cough - Cardiovascular Exam Cardiovascular Exam: Tachycardia, REGULAR RHYTHM - GI/Abdominal Exam GI & Abdominal Exam: Soft. absent: Distended, Tenderness - Extremities Exam Additional comments: BL 2+ pitting edema, mild erythema BL neck and chest and arms without localized rash - Neurological Exam Neurological exam: Alert, Oriented x3 - Psychiatric Exam Psychiatric exam: Normal Affect, Normal Mood - Skin Skin Exam: Dry, Erythema, Warm Results - Vital Signs Recent Vital Signs: Last Vital Signs Temp 97.5 F L 05/18/18 16:00 Pulse 134 H 05/18/18 17:00 Resp 28 H 05/18/18 17:00 BP 115/58 L 05/18/18 16:35 Pulse Ox 100 05/18/18 17:00 - Labs Result Diagrams: 05/18/18 06:15 11/08/18 06:15 Labs: Laboratory Results - last 24 hr 05/17/18 05/17/18 05/18/18 16:18 21:38 06:15 WBC RBC Hgb Hct MCV MCH MCHC RDW Plt Count MPV Neut % (Auto) Lymph % (Auto) King % (Auto) Eos % (Auto) Baso % (Auto) Neut # (Auto) Lymph # (Auto) King # (Auto) Eos # (Auto) Baso # (Auto) Neutrophils % (Manual) Band Neutrophils % Lymphocytes % (Manual) Monocytes % (Manual) Platelet Estimate Polychromasia Hypochromasia (manual) Anisocytosis (manual) Macrocytosis (manual) PT 10.8 INR 1.0 APTT 40 H Sodium Potassium Chloride Carbon Dioxide Anion Gap BUN Creatinine Est GFR ( Amer) Est GFR (Non-Af Amer) POC Glucose (mg/dL) 142 H 116 H Random Glucose Calcium Phosphorus Magnesium Total Bilirubin AST ALT Alkaline Phosphatase Total Protein Albumin Globulin Albumin/Globulin Ratio Cortisol AM Sample 05/18/18 05/18/18 05/18/18 06:15 06:15 07:08 WBC 17.1 H RBC 3.15 L Hgb 9.4 L Hct 29.5 L MCV 93.7 MCH 29.9 MCHC 31.9 L RDW 25.3 H Plt Count 79 L MPV 9.9 Neut % (Auto) 95.1 H Lymph % (Auto) 2.5 L King % (Auto) 2.3 Eos % (Auto) 0.0 Baso % (Auto) 0.1 Neut # (Auto) 16.3 H Lymph # (Auto) 0.4 L King # (Auto) 0.4 Eos # (Auto) 0.0 Baso # (Auto) 0.0 Neutrophils % (Manual) 71 Band Neutrophils % 24 H* Lymphocytes % (Manual) 4 L Monocytes % (Manual) 1 Platelet Estimate Decreased L Polychromasia Slight Hypochromasia (manual) Slight Anisocytosis (manual) Moderate Macrocytosis (manual) Slight PT INR APTT Sodium 143 Potassium 4.8 Chloride 107 Carbon Dioxide 27 Anion Gap 13 BUN 30 H Creatinine 2.5 H Est GFR ( Amer) 31 Est GFR (Non-Af Amer) 26 POC Glucose (mg/dL) Random Glucose 144 H Calcium 8.4 L Phosphorus 4.2 Magnesium 2.0 Total Bilirubin 2.2 H AST 28 ALT 47 Alkaline Phosphatase 91 Total Protein 5.6 L Albumin 3.1 L Globulin 2.5 Albumin/Globulin Ratio 1.2 Cortisol AM Sample > 123.0 H Assessment & Plan - Assessment and Plan (Free Text) Assessment: 72M with recurrent ESRD Plan: Permacath insertion under IV sedation tomorrow NPO after midnight trend labs continue antibiotics per ID HD per nephro Continue medical management per primary/ICU Discussed with Dr. Herrera, who agrees with above Deann Merino, PGY2
--- NOTE | 2018-05-18 19:27 | CP.PCM.PN ---
Subjective - Date & Time of Evaluation Date of Evaluation: 05/18/18 Time of Evaluation: 08:00 - Subjective Subjective: IV rx in progress seen at bedside meds renewed Objective - Vital Signs/Intake and Output Vital Signs (last 24 hours): Temp Pulse Resp BP Pulse Ox 97.5 F L 130 H 22 129/51 L 100 05/18/18 16:00 05/18/18 19:00 05/18/18 19:00 05/18/18 18:37 05/18/18 19:00 Intake and Output: 05/18/18 05/19/18 18:59 06:59 Intake Total 660 10 Balance 660 10 - Medications Medications: Current Medications Albumin Human (Albumin Human 25% (12.5 Gm/50 Ml)) 37.5 gm IV DAILY PRN PRN Reason: PER HD IF SBP IS LESS THAN 90 Albumin Human (Albumin Human 25% (12.5 Gm/50 Ml)) 12.5 gm IV ONCE PRN PRN Reason: hypotension Last Admin: 05/18/18 10:36 Dose: 12.5 gm Albuterol/Ipratropium (Duoneb 3 Mg/0.5 Mg (3 Ml) Ud) 3 ml INH RQ4 [facility] Last Admin: 05/18/18 16:12 Dose: 3 ml Calcium Acetate (Phoslo) 1,334 mg PO TIDCC [facility] Last Admin: 05/18/18 17:25 Dose: Not Given Collagenase (Santyl) 0 gm TOP DAILY [facility] Last Admin: 05/18/18 13:42 Dose: 1 oin Cyanocobalamin (Vitamin B12 1000 Mcg Tab) 1,000 mcg PO DAILY [facility] Last Admin: 05/18/18 11:00 Dose: 1,000 mcg Dextrose (Dextrose 50% Inj) 0 ml IV STAT PRN; Protocol PRN Reason: Hypoglycemia Protocol Last Admin: 05/16/18 21:23 Dose: 50 ml Dextrose (Glutose 15) 0 gm PO ONCE PRN; Protocol PRN Reason: Hypoglycemia Protocol Diltiazem HCl (Cardizem Cd) 180 mg PO DAILY [facility] Last Admin: 05/18/18 10:37 Dose: 180 mg Docusate Sodium (Colace) 100 mg PO BID PRN PRN Reason: Constipation Folic Acid (Folic Acid) 1 mg PO DAILY [facility] Last Admin: 05/18/18 10:37 Dose: 1 mg Glucagon (Glucagen Diagnostic Kit) 0 mg IM STAT PRN; Protocol PRN Reason: Hypoglycemia Protocol Heparin Sodium (Porcine) (Heparin) 5,000 units SC Q12 [facility] Last Admin: 05/16/18 10:41 Dose: Not Given Hydrocortisone Sodium Succinate (Solu-Cortef) 100 mg IV Q8H [facility] Last Admin: 05/18/18 17:51 Dose: 100 mg Daptomycin 300 mg/ Sodium (Chloride) 100 mls @ 200 mls/hr IV Q48H [facility] Last Admin: 05/18/18 17:33 Dose: 200 mls/hr Micafungin Sodium 100 mg/ (Sodium Chloride) 100 mls @ 100 mls/hr IV Q24H [facility]; Protocol Last Admin: 05/17/18 19:58 Dose: 100 mls/hr Phenylephrine HCl 30 mg/ (Dextrose) 253 mls @ 20.24 mls/hr IV .[id number] PRN; Protocol PRN Reason: TITRATE PER MD ORDER Last Titration: 05/13/18 18:30 Dose: 0 mcg/min, 0 mls/hr Meropenem 500 mg/ Sodium (Chloride) 100 mls @ 100 mls/hr IVPB Q12H [facility]; Protocol Last Admin: 05/18/18 10:40 Dose: 100 mls/hr Dextrose (Dextrose 10% In Water) 500 mls @ 10 mls/hr IV .Q24H [facility] Last Admin: 05/18/18 07:23 Dose: 10 mls/hr Insulin Human Regular (Novolin R) 0 unit SC ACHS [facility]; Protocol Last Admin: 05/18/18 16:30 Dose: Not Given Isoniazid (Niazid) 300 mg PO DAILY [facility]; Protocol Last Admin: 05/18/18 10:38 Dose: 300 mg Lactic Acid (Lac-Hydrin 12% Lotion (225 G)) 0 gm EXT Q8 [facility] Last Admin: 05/18/18 13:41 Dose: 1 applic Levothyroxine Sodium (Levothyroxine) 200 mcg IVP Q24H [facility] Last Admin: 05/18/18 06:43 Dose: 200 mcg Multivitamins (Hexavitamin) 1 tab PO DAILY [facility] Last Admin: 05/18/18 10:38 Dose: 1 tab Pantoprazole Sodium (Protonix Inj) 40 mg IVP Q12H [facility] Last Admin: 05/18/18 10:36 Dose: 40 mg Polyethylene Glycol (Miralax) 17 gm PO BID PRN PRN Reason: Constipation Pyridoxine HCl (Vitamin B6 50 Mg Tab) 50 mg PO DAILY [facility] Last Admin: 05/18/18 11:00 Dose: 50 mg Rifampin (Rifampin Cap) 600 mg PO DAILY [facility]; Protocol Last Admin: 05/18/18 11:00 Dose: 600 mg Tacrolimus (Prograf Cap) 4 mg PO BID [facility] Last Admin: 05/17/18 10:16 Dose: Not Given Thiamine HCl (Vitamin B1 Inj) 200 mg IV Q8H [facility] Last Admin: 05/18/18 19:03 Dose: 200 mg Verapamil HCl (Verapamil Inj) 2.5 mg IVP Q6H PRN PRN Reason: Heart rate Last Admin: 05/15/18 21:00 Dose: 2.5 mg Vitamin A (Vitamin A & D Oint Ud Foilpak) 0 ea TOP BID [facility] Last Admin: 05/18/18 17:34 Dose: 1 ea - Labs Labs: 05/18/18 06:15 05/18/18 06:15 PT 10.8 SECONDS (9.7-12.2) 05/18/18 06:15 INR 1.0 05/18/18 06:15 APTT 40 SECONDS (21-34) H 05/18/18 06:15 Assessment and Plan (1) Acute confusion Status: Resolved (2) Exfoliative dermatitis Status: Resolved (3) Hypothermia Status: Resolved (4) Sepsis Status: Acute (5) Anemia Status: Acute (6) Bronchiectasis with acute exacerbation Status: Acute (7) CKD (chronic kidney disease) stage 3, GFR 30-59 ml/min Status: Acute (8) COPD bronchitis Status: Acute (9) Cardiomyopathy Status: Acute (10) Chronic atrial fibrillation Status: Acute (11) Chronic kidney disease, stage III (moderate) Status: Acute (12) DM type 2 (diabetes mellitus, type 2) Status: Acute (13) Gout Status: Acute (14) HTN (hypertension), benign Status: Acute (15) History of kidney transplant Status: Acute (16) Kidney transplant recipient Status: Acute (17) SIRS (systemic inflammatory response syndrome) Status: Acute (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
[2018-05-18] MEDS: Micafungin 100 MG in Sodium Chloride 0.9% 100 ML IV SCH (20:07)
--- NOTE | 2018-05-18 23:37 | CP.PCM.PN ---
Subjective - Date & Time of Evaluation Date of Evaluation: 05/18/18 Time of Evaluation: 19:30 - Subjective Subjective: Patient alert, dyspneic on BIPAP with FIO2: 100%. BP : 120/60 HR: 112 Afebrile Telemetry: sinus tach with PAC's. for a permacath placement in AM. Objective - Vital Signs/Intake and Output Vital Signs (last 24 hours): Temp Pulse Resp BP Pulse Ox 98 F 105 H 17 129/50 L 100 05/18/18 20:00 05/18/18 23:00 05/18/18 23:00 05/18/18 22:36 05/18/18 23:00 Intake and Output: 05/18/18 05/19/18 18:59 06:59 Intake Total 660 250 Output Total 0 Balance 660 250 - Medications Medications: Current Medications Albumin Human (Albumin Human 25% (12.5 Gm/50 Ml)) 37.5 gm IV DAILY PRN PRN Reason: PER HD IF SBP IS LESS THAN 90 Albumin Human (Albumin Human 25% (12.5 Gm/50 Ml)) 12.5 gm IV ONCE PRN PRN Reason: hypotension Last Admin: 05/18/18 10:36 Dose: 12.5 gm Albuterol/Ipratropium (Duoneb 3 Mg/0.5 Mg (3 Ml) Ud) 3 ml INH RQ4 [facility] Last Admin: 05/18/18 20:51 Dose: 3 ml Calcium Acetate (Phoslo) 1,334 mg PO TIDCC [facility] Last Admin: 05/18/18 17:25 Dose: Not Given Collagenase (Santyl) 0 gm TOP DAILY [facility] Last Admin: 05/18/18 13:42 Dose: 1 oin Cyanocobalamin (Vitamin B12 1000 Mcg Tab) 1,000 mcg PO DAILY [facility] Last Admin: 05/18/18 11:00 Dose: 1,000 mcg Dextrose (Dextrose 50% Inj) 0 ml IV STAT PRN; Protocol PRN Reason: Hypoglycemia Protocol Last Admin: 05/16/18 21:23 Dose: 50 ml Dextrose (Glutose 15) 0 gm PO ONCE PRN; Protocol PRN Reason: Hypoglycemia Protocol Diltiazem HCl (Cardizem Cd) 180 mg PO DAILY [facility] Last Admin: 05/18/18 10:37 Dose: 180 mg Docusate Sodium (Colace) 100 mg PO BID PRN PRN Reason: Constipation Folic Acid (Folic Acid) 1 mg PO DAILY [facility] Last Admin: 05/18/18 10:37 Dose: 1 mg Glucagon (Glucagen Diagnostic Kit) 0 mg IM STAT PRN; Protocol PRN Reason: Hypoglycemia Protocol Heparin Sodium (Porcine) (Heparin) 5,000 units SC Q12 [facility] Last Admin: 05/16/18 10:41 Dose: Not Given Hydrocortisone Sodium Succinate (Solu-Cortef) 100 mg IV Q8H [facility] Last Admin: 05/18/18 17:51 Dose: 100 mg Daptomycin 300 mg/ Sodium (Chloride) 100 mls @ 200 mls/hr IV Q48H [facility] Last Admin: 05/18/18 17:33 Dose: 200 mls/hr Micafungin Sodium 100 mg/ (Sodium Chloride) 100 mls @ 100 mls/hr IV Q24H [facility]; Protocol Last Admin: 05/18/18 20:07 Dose: 100 mls/hr Phenylephrine HCl 30 mg/ (Dextrose) 253 mls @ 20.24 mls/hr IV .[id number] PRN; Protocol PRN Reason: TITRATE PER MD ORDER Last Titration: 05/13/18 18:30 Dose: 0 mcg/min, 0 mls/hr Meropenem 500 mg/ Sodium (Chloride) 100 mls @ 100 mls/hr IVPB Q12H [facility]; Protocol Last Admin: 05/18/18 10:40 Dose: 100 mls/hr Dextrose (Dextrose 10% In Water) 500 mls @ 10 mls/hr IV .Q24H [facility] Last Admin: 05/18/18 07:23 Dose: 10 mls/hr Insulin Human Regular (Novolin R) 0 unit SC ACHS [facility]; Protocol Last Admin: 05/18/18 21:25 Dose: Not Given Isoniazid (Niazid) 300 mg PO DAILY [facility]; Protocol Last Admin: 05/18/18 10:38 Dose: 300 mg Lactic Acid (Lac-Hydrin 12% Lotion (225 G)) 0 gm EXT Q8 [facility] Last Admin: 05/18/18 21:03 Dose: 1 applic Levothyroxine Sodium (Levothyroxine) 200 mcg IVP Q24H [facility] Last Admin: 05/18/18 06:43 Dose: 200 mcg Multivitamins (Hexavitamin) 1 tab PO DAILY [facility] Last Admin: 05/18/18 10:38 Dose: 1 tab Pantoprazole Sodium (Protonix Inj) 40 mg IVP Q12H [facility] Last Admin: 05/18/18 21:11 Dose: 40 mg Polyethylene Glycol (Miralax) 17 gm PO BID PRN PRN Reason: Constipation Pyridoxine HCl (Vitamin B6 50 Mg Tab) 50 mg PO DAILY [facility] Last Admin: 05/18/18 11:00 Dose: 50 mg Rifampin (Rifampin Cap) 600 mg PO DAILY [facility]; Protocol Last Admin: 05/18/18 11:00 Dose: 600 mg Tacrolimus (Prograf Cap) 4 mg PO BID [facility] Last Admin: 05/17/18 10:16 Dose: Not Given Thiamine HCl (Vitamin B1 Inj) 200 mg IV Q8H [facility] Last Admin: 05/18/18 19:03 Dose: 200 mg Verapamil HCl (Verapamil Inj) 2.5 mg IVP Q6H PRN PRN Reason: Heart rate Last Admin: 05/15/18 21:00 Dose: 2.5 mg Vitamin A (Vitamin A & D Oint Ud Foilpak) 0 ea TOP BID [facility] Last Admin: 05/18/18 17:34 Dose: 1 ea - Labs Labs: 05/18/18 06:15 05/18/18 06:15 PT 10.8 SECONDS (9.7-12.2) 05/18/18 06:15 INR 1.0 05/18/18 06:15 APTT 40 SECONDS (21-34) H 05/18/18 06:15 - Constitutional Appears: In Acute Distress, Cachectic, Chronically Ill - Head Exam Head Exam: NORMAL INSPECTION - Eye Exam Eye Exam: Normal appearance - ENT Exam ENT Exam: Normal Exam - Neck Exam Neck Exam: Normal Inspection - Respiratory Exam Respiratory Exam: Rhonchi - Cardiovascular Exam Cardiovascular Exam: Irregular Rhythm - GI/Abdominal Exam GI & Abdominal Exam: Soft, Normal Bowel Sounds - Rectal Exam Rectal Exam: Deferred - Extremities Exam Extremities Exam: Pedal Edema - Back Exam Back Exam: NORMAL INSPECTION - Neurological Exam Neurological Exam: Alert, Awake - Psychiatric Exam Psychiatric exam: Anxious Assessment and Plan (1) Hypothermia Status: Resolved (2) Hypoglycemia Status: Resolved (3) Hypotension Status: Resolved (4) Acute confusion Status: Resolved (5) Exfoliative dermatitis Status: Resolved (6) Acute on chronic diastolic CHF (congestive heart failure) Assessment & Plan: Severe CHF due to fluid overload. To continue HD as per Nephrologists Status: Acute (7) YVAN (acute kidney injury) Assessment & Plan: On HD. Status: Acute (8) Sepsis Assessment & Plan: On IV antibiotics and antifungal IV. Status: Acute
[2018-05-19] MEDS: Albuterol-Ipratrop 3 mg / 0.5 (3 ml) UD INH SCH ×7 (00:28→23:53)
[2018-05-19] MEDS: Thiamine 100 mg/ml Inj IV SCH ×3 (02:25→17:02)
[2018-05-19] MEDS: Levothyroxine 200 mcg (0.2 mg) Inj IVP SCH (05:48)
[2018-05-19] MEDS: Ammonium Lactate 12% Lotion (225 g) EXT SCH ×3 (05:48→22:00)
[2018-05-19 06:16] LABS: BASO # 0.1 K/uL (0.0-0.2); BASO % 0.4 % (0.0-2.0); EOS % 0.1 % (0.0-4.0); HEMOGLOBIN 8.9 g/dL (12.0-18.0); LYMPH # 0.3 K/uL (1.0-4.3); LYMPH % 1.8 % (20.0-40.0); MEAN CELL VOLUME 96.2 fL (80.0-94.0); MEAN CORPUSCULAR HEMOGLOBIN 30.2 pg (27.0-31.0); MEAN CORPUSCULAR HGB CONC 31.4 g/dL (33.0-37.0); MEAN PLATELET VOLUME 9.4 fL (7.2-11.7); MONO # 0.4 K/uL (0.0-0.8); MONO % 2.4 % (0.0-10.0); NEUT # 16.8 K/uL (1.8-7.0); NEUT % 95.3 % (50.0-75.0); NRBC % 1.1 % (0.0-2.0); PLATELET COUNT 71 K/uL (130-400); RBC 2.96 Mil/uL (4.40-5.90); RED CELL DISTRIBUTION WIDTH 25.9 % (11.5-14.5); WHITE BLOOD COUNT 17.7 K/uL (4.8-10.8)
[2018-05-19 06:22] LABS: PROTHROMBIN TIME 10.5 SECONDS (9.7-12.2)
[2018-05-19 06:38] LABS: ALB/GLOB RATIO 1.4 (1.0-2.1); ALBUMIN 3.4 g/dL (3.5-5.0); CALCIUM 7.8 mg/dl (8.6-10.4)
--- NOTE | 2018-05-19 06:57 | PN ---
DATE: 05/18/2018 LOCATION: ICU, room 10. SUBJECTIVE: This is a 72-year-old male with recent overt hypothyroidism, now being followed closely for metabolic management. His glycemic levels are fluctuating, but improved, and glucose values overnight have ranged from 118 to 129 and 144 mg/dL. His latest chemistry shows a BUN of 30, sodium 143, potassium 4.8, chloride 107, CO2 of 27, glucose 199, and creatinine 2.5. The repeat cortisol level is 123. He has been taken off IV steroids at this time and also switched back to IV levothyroxine given parenterally at a dose of 200 mcg daily as ordered. PLAN: We will continue the aforementioned and as his oral intake improves, we will switch him over to oral levothyroxine preparation as ordered. We will follow the patient. Isamar Shane MD
[2018-05-19] MEDS: (Novolin R) Insulin Human Regular 100 units/ml vial SC SCH ×4 (08:23→23:29)
[2018-05-19 08:27] LABS: BANDS 4 % (0-2); LYMPHOCYTE 3 % (20-40); MONOCYTE 1 % (0-10); NEUTROPHIL 92 % (50-75); TOTAL CELLS COUNTED 100
[2018-05-19 08:28] LABS: ANISOCYTOSIS SLIGHT; BURR CELLS SLIGHT; HYPOCHROMIC SLIGHT; PLATELET ESTIMATE DECREASED (NORMAL); POIKILOCYTOSIS SLIGHT
[2018-05-19 08:29] LABS: OVALOCYTES SLIGHT
[2018-05-19] MEDS: Vitamins A & D Oint UD Foilpak TOP SCH ×2 (09:36→17:03)
--- NOTE | 2018-05-19 09:49 | CP.PCM.PN ---
Subjective - Date & Time of Evaluation Date of Evaluation: 05/19/18 Time of Evaluation: 09:43 - Subjective Subjective: Seen on dialysis- to UF 2500ml tolerating HD fairly well Awake, still dyspneic on bipap anuric bp better- off pressors tacro levels have been elevated-tacro on hold Hg low- start EPO Objective - Vital Signs/Intake and Output Vital Signs (last 24 hours): Temp Pulse Resp BP Pulse Ox 96.1 F L 90 13 123/54 L 96 05/19/18 08:00 05/19/18 09:39 05/19/18 08:22 05/19/18 09:39 05/19/18 08:22 Intake and Output: 05/19/18 05/19/18 06:59 18:59 Intake Total 320 20 Output Total 0 0 Balance 320 20 - Medications Medications: Current Medications Albumin Human (Albumin Human 25% (12.5 Gm/50 Ml)) 37.5 gm IV DAILY PRN PRN Reason: PER HD IF SBP IS LESS THAN 90 Albumin Human (Albumin Human 25% (12.5 Gm/50 Ml)) 12.5 gm IV ONCE PRN PRN Reason: hypotension Last Admin: 05/18/18 10:36 Dose: 12.5 gm Albuterol/Ipratropium (Duoneb 3 Mg/0.5 Mg (3 Ml) Ud) 3 ml INH RQ4 [facility] Last Admin: 05/19/18 08:15 Dose: Not Given Calcium Acetate (Phoslo) 1,334 mg PO TIDCC [facility] Last Admin: 05/19/18 08:24 Dose: Not Given Collagenase (Santyl) 0 gm TOP DAILY [facility] Last Admin: 05/18/18 13:42 Dose: 1 oin Cyanocobalamin (Vitamin B12 1000 Mcg Tab) 1,000 mcg PO DAILY [facility] Last Admin: 05/18/18 11:00 Dose: 1,000 mcg Dextrose (Dextrose 50% Inj) 0 ml IV STAT PRN; Protocol PRN Reason: Hypoglycemia Protocol Last Admin: 05/16/18 21:23 Dose: 50 ml Dextrose (Glutose 15) 0 gm PO ONCE PRN; Protocol PRN Reason: Hypoglycemia Protocol Diltiazem HCl (Cardizem Cd) 180 mg PO DAILY [facility] Last Admin: 05/18/18 10:37 Dose: 180 mg Docusate Sodium (Colace) 100 mg PO BID PRN PRN Reason: Constipation Folic Acid (Folic Acid) 1 mg PO DAILY [facility] Last Admin: 05/18/18 10:37 Dose: 1 mg Glucagon (Glucagen Diagnostic Kit) 0 mg IM STAT PRN; Protocol PRN Reason: Hypoglycemia Protocol Heparin Sodium (Porcine) (Heparin) 5,000 units SC Q12 [facility] Last Admin: 05/16/18 10:41 Dose: Not Given Hydrocortisone Sodium Succinate (Solu-Cortef) 100 mg IV Q8H [facility] Last Admin: 05/19/18 02:25 Dose: 100 mg Daptomycin 300 mg/ Sodium (Chloride) 100 mls @ 200 mls/hr IV Q48H [facility] Last Admin: 05/18/18 17:33 Dose: 200 mls/hr Micafungin Sodium 100 mg/ (Sodium Chloride) 100 mls @ 100 mls/hr IV Q24H [facility]; Protocol Last Admin: 05/18/18 20:07 Dose: 100 mls/hr Phenylephrine HCl 30 mg/ (Dextrose) 253 mls @ 20.24 mls/hr IV .[id number] PRN; Protocol PRN Reason: TITRATE PER MD ORDER Last Titration: 05/13/18 18:30 Dose: 0 mcg/min, 0 mls/hr Meropenem 500 mg/ Sodium (Chloride) 100 mls @ 100 mls/hr IVPB Q12H [facility]; Protocol Last Admin: 05/18/18 23:49 Dose: 100 mls/hr Dextrose (Dextrose 10% In Water) 500 mls @ 10 mls/hr IV .Q24H [facility] Last Admin: 05/19/18 08:21 Dose: 10 mls/hr Insulin Human Regular (Novolin R) 0 unit SC ACHS [facility]; Protocol Last Admin: 05/19/18 08:23 Dose: Not Given Isoniazid (Niazid) 300 mg PO DAILY [facility]; Protocol Last Admin: 05/18/18 10:38 Dose: 300 mg Lactic Acid (Lac-Hydrin 12% Lotion (225 G)) 0 gm EXT Q8 [facility] Last Admin: 05/19/18 05:48 Dose: 1 applic Levothyroxine Sodium (Levothyroxine) 200 mcg IVP Q24H [facility] Last Admin: 05/19/18 05:48 Dose: 200 mcg Multivitamins (Hexavitamin) 1 tab PO DAILY [facility] Last Admin: 05/18/18 10:38 Dose: 1 tab Pantoprazole Sodium (Protonix Inj) 40 mg IVP Q12H [facility] Last Admin: 05/19/18 09:35 Dose: 40 mg Polyethylene Glycol (Miralax) 17 gm PO BID PRN PRN Reason: Constipation Pyridoxine HCl (Vitamin B6 50 Mg Tab) 50 mg PO DAILY [facility] Last Admin: 05/18/18 11:00 Dose: 50 mg Rifampin (Rifampin Cap) 600 mg PO DAILY [facility]; Protocol Last Admin: 05/18/18 11:00 Dose: 600 mg Tacrolimus (Prograf Cap) 4 mg PO BID [facility] Last Admin: 05/17/18 10:16 Dose: Not Given Thiamine HCl (Vitamin B1 Inj) 200 mg IV Q8H [facility] Last Admin: 05/19/18 09:35 Dose: 200 mg Verapamil HCl (Verapamil Inj) 2.5 mg IVP Q6H PRN PRN Reason: Heart rate Last Admin: 05/15/18 21:00 Dose: 2.5 mg Vitamin A (Vitamin A & D Oint Ud Foilpak) 0 ea TOP BID [facility] Last Admin: 05/19/18 09:36 Dose: 1 ea - Labs Labs: 05/19/18 06:09 05/19/18 06:09 PT 10.5 SECONDS (9.7-12.2) 05/19/18 06:09 INR 1.0 05/19/18 06:09 APTT 39 SECONDS (21-34) H 05/19/18 06:09 - Constitutional Appears: In Acute Distress, Chronically Ill - Head Exam Head Exam: ATRAUMATIC, NORMAL INSPECTION - Eye Exam Eye Exam: EOMI, Normal appearance - Neck Exam Neck Exam: Normal Inspection. absent: Tenderness - Respiratory Exam Respiratory Exam: Rhonchi, Respiratory Distress - Cardiovascular Exam Cardiovascular Exam: Tachycardia, Irregular Rhythm - GI/Abdominal Exam GI & Abdominal Exam: Soft. absent: Tenderness - Extremities Exam Extremities Exam: Normal Inspection. 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
[2018-05-19] MEDS: Albumin Human 25% (12.5 gm/50 ml) IV PRN (10:06)
--- NOTE | 2018-05-19 10:30 | CP.CCUPN ---
<Natasha Khan - Last Filed: 05/19/18 17:03> CCU Subjective - Physician Review Events Since Last Encounter (Free Text): 05/19/18 16:04 Patient placed back on BiPAP Subjective (Free Text): 05/19/18 07:03 Patient was seen and examined this morning. He was placed back on BiPAP over night. He is alert and appropriately responsive. No acute complaints. No respiratory distress. 05/19/18 16:04 Patient seen after surgery. R IJ permacath placement was attempted and failed. Catheter was placed in R femoral. Patient is alert and on BiPAP. Critical Care Time Spent (in minutes): 35 CCU Objective - Vital Signs / Intake & Output Vital Signs (Last 4 hours): Vital Signs Temp Pulse Pulse Resp BP BP Pulse Ox 05/19/18 10:20 135/63 05/19/18 10:10 113/90 05/19/18 09:55 78/50 L 05/19/18 09:40 90 123/54 L 05/19/18 09:25 114/54 L 05/19/18 09:10 80 141/60 05/19/18 08:55 87 134/66 05/19/18 08:40 96 H 128/54 L 05/19/18 08:25 98 H 136/62 05/19/18 08:23 96 H 05/19/18 08:22 104 H 13 136/62 96 05/19/18 08:10 98 H 131/75 05/19/18 08:07 108 H 15 131/75 100 05/19/18 08:00 96.1 F L 100 H 12 100 05/19/18 07:56 107 H 16 131/60 96 05/19/18 07:55 98 F 105 H 12 131/60 100 05/19/18 07:50 98 F 105 H 12 140/68 05/19/18 07:35 101 H 15 140/68 05/19/18 07:00 113 H 17 97 05/19/18 06:35 97 H 12 131/86 100 Intake and Output (Last 8hrs): Intake & Output 05/18/18 05/19/18 05/19/18 22:59 06:59 14:59 Intake Total 400 180 20 Output Total 0 0 0 Balance 400 180 20 Weight 125 lb 12.8 oz Intake: Intake, IV Amount 280 180 20 Right 80 80 20 Right Femoral Side-Port 200 100 Oral 120 0 Output: Urine 0 0 0 Straight 0 0 Urine, Voided 0 Other: # Voids Urine, Voided 1 # Bowel Movements 1 1 0 - Physical Exam Head: Positive for: Atraumatic, Normocephalic Pupils: Positive for: PERRL Extroacular Muscles: Positive for: EOMI Conjunctiva: Positive for: Normal Mouth: Positive for: Dry Pharnyx: Negative for: ERYTHEMA Respiratory/Chest: Positive for: Other (BiPAP). Negative for: Respiratory Distress, Accessory Muscle Use Cardiovascular: Positive for: Normal S1, S2, Irregular Rhythm (Afib RVR), Tachycardic, Other (trialysis cath in R femoral). Negative for: Murmurs Abdomen: Positive for: Normal Bowel Sounds. Negative for: Tenderness, D istention, Peritoneal Signs Upper Extremity: Positive for: Swelling, Erythema, Neurovascularly Intact, Other (b/l skin sloughing) Lower Extremity: Positive for: Erythema, Neurovascularly Intact Neurological: Positive for: GCS=15, CN II-XII Intact Psychiatric: Positive for: Alert, Oriented x 3. Negative for: Agitated - Medications Active Medications: Active Medications Generic Name Dose Route Start Last Admin Trade Name Freq PRN Reason Stop Dose Admin Albumin Human 37.5 gm 05/12/18 16:00 Albumin Human 25% (12.5 Gm/50 Ml) IV DAILY PRN PER HD IF SBP IS LESS THAN 90 Albumin Human 12.5 gm 05/16/18 11:47 05/19/18 10:06 Albumin Human 25% (12.5 Gm/50 Ml) IV 12.5 gm ONCE PRN Administration hypotension Albuterol/Ipratropium 3 ml 05/12/18 19:00 05/19/18 08:15 Duoneb 3 Mg/0.5 Mg (3 Ml) Ud INH Not Given RQ4 FAHEEM Calcium Acetate 1,334 mg 05/12/18 13:21 05/19/18 08:24 Phoslo PO Not Given TIDCC FAHEEM Collagenase 0 gm 05/11/18 11:00 05/18/18 13:42 Santyl TOP 1 oin DAILY FAHEEM Administration Cyanocobalamin 1,000 mcg 05/12/18 10:00 05/18/18 11:00 Vitamin B12 1000 Mcg Tab PO 1,000 mcg DAILY FAHEEM Administration Dextrose 0 ml 05/08/18 17:53 05/16/18 21:23 Dextrose 50% Inj IV 50 ml STAT PRN Administration Hypoglycemia Protocol Protocol Dextrose 0 gm 05/08/18 17:53 Glutose 15 PO ONCE PRN Hypoglycemia Protocol Protocol Diltiazem HCl 180 mg 05/14/18 10:00 05/18/18 10:37 Cardizem Cd PO 180 mg DAILY FAHEEM Administration Docusate Sodium 100 mg 05/18/18 14:59 Colace PO BID PRN Constipation Epoetin Jean Paul 10,000 unit 05/22/18 09:00 Procrit IV MWF FAHEEM Folic Acid 1 mg 05/09/18 10:00 05/18/18 10:37 Folic Acid PO 1 mg DAILY FAHEEM Administration Glucagon 0 mg 05/08/18 17:53 Glucagen Diagnostic Kit IM STAT PRN Hypoglycemia Protocol Protocol Heparin Sodium (Porcine) 5,000 units 05/14/18 11:00 05/16/18 10:41 Heparin SC Not Given Q12 FAHEEM Hydrocortisone Sodium Succinate 100 mg 05/16/18 10:45 05/19/18 02:25 Solu-Cortef IV 100 mg Q8H FAHEEM Administration Daptomycin 300 mg/ Sodium 100 mls @ 200 mls/hr 05/10/18 18:30 05/18/18 17:33 Chloride IV 200 mls/hr Q48H FAHEEM Administration Micafungin Sodium 100 mg/ 100 mls @ 100 mls/hr 05/10/18 20:00 05/18/18 20:07 Sodium Chloride IV 100 mls/hr Q24H FAHEEM Administration Protocol Phenylephrine HCl 30 mg/ 253 mls @ 20.24 mls/hr 05/13/18 17:00 05/13/18 18:30 Dextrose IV 0 mcg/min .[id number] PRN 0 mls/hr TITRATE PER MD ORDER Titration Protocol 40 MCG/MIN Meropenem 500 mg/ Sodium 100 mls @ 100 mls/hr 05/14/18 23:00 05/18/18 23:49 Chloride IVPB 100 mls/hr Q12H FAHEEM Administration Protocol Dextrose 500 mls @ 10 mls/hr 05/17/18 07:00 05/19/18 08:21 Dextrose 10% In Water IV 10 mls/hr .Q24H FAHEEM Administration Insulin Human Regular 0 unit 05/16/18 16:50 05/19/18 08:23 Novolin R SC Not Given ACHS FAHEEM Protocol Isoniazid 300 mg 05/15/18 12:00 05/18/18 10:38 Niazid PO 300 mg DAILY FAHEEM Administration Protocol Lactic Acid 0 gm 05/12/18 07:00 05/19/18 05:48 Lac-Hydrin 12% Lotion (225 G) EXT 1 applic Q8 FAHEEM Administration Levothyroxine Sodium 200 mcg 05/17/18 06:00 05/19/18 05:48 Levothyroxine IVP 200 mcg Q24H FAHEEM Administration Multivitamins 1 tab 05/15/18 13:00 05/18/18 10:38 Hexavitamin PO 1 tab DAILY FAHEEM Administration Pantoprazole Sodium 40 mg 05/12/18 21:00 05/19/18 09:35 Protonix Inj IVP 40 mg Q12H FAHEEM Administration Polyethylene Glycol 17 gm 05/18/18 12:14 Miralax PO BID PRN Constipation Pyridoxine HCl 50 mg 05/09/18 10:00 05/18/18 11:00 Vitamin B6 50 Mg Tab PO 50 mg DAILY FAHEEM Administration Rifampin 600 mg 05/15/18 12:00 05/18/18 11:00 Rifampin Cap PO 600 mg DAILY FAHEEM Administration Protocol Tacrolimus 4 mg 05/15/18 11:35 05/17/18 10:16 Prograf Cap PO Not Given BID FAHEEM Thiamine HCl 200 mg 05/11/18 09:45 05/19/18 09:35 Vitamin B1 Inj IV 200 mg Q8H FAHEEM Administration Verapamil HCl 2.5 mg 05/13/18 16:52 05/15/18 21:00 Verapamil Inj IVP 2.5 mg Q6H PRN Administration Heart rate Vitamin A 0 ea 05/11/18 18:00 05/19/18 09:36 Vitamin A & D Oint Ud Foilpak TOP 1 ea BID FAHEEM Administration - Patient Studies Lab Studies: Microbiology Studies 05/17/18 09:30 Blood Culture - Preliminary Blood NO GROWTH AFTER 48 HOURS 05/17/18 09:00 Blood Culture - Preliminary Blood NO GROWTH AFTER 48 HOURS 05/17/18 12:22 Urine Culture - Final Urine,Catheterized Yeast Species Lab Studies 05/19/18 05/19/18 05/19/18 Range/Units 07:33 06:09 06:09 WBC 17.7 H (4.8-10.8) K/uL RBC 2.96 L (4.40-5.90) Mil/uL Hgb 8.9 L (12.0-18.0) g/dL Hct 28.5 L (35.0-51.0) % MCV 96.2 H D (80.0-94.0) fL MCH 30.2 (27.0-31.0) pg MCHC 31.4 L (33.0-37.0) g/dL RDW 25.9 H (11.5-14.5) % Plt Count 71 L (130-400) K/uL MPV 9.4 (7.2-11.7) fL Neut % (Auto) 95.3 H (50.0-75.0) % Lymph % (Auto) 1.8 L (20.0-40.0) % Grimes % (Auto) 2.4 (0.0-10.0) % Eos % (Auto) 0.1 (0.0-4.0) % Baso % (Auto) 0.4 (0.0-2.0) % Neut # (Auto) 16.8 H (1.8-7.0) K/uL Lymph # (Auto) 0.3 L (1.0-4.3) K/uL Grimes # (Auto) 0.4 (0.0-0.8) K/uL Eos # (Auto) 0.0 (0.0-0.7) K/uL Baso # (Auto) 0.1 (0.0-0.2) K/uL Neutrophils % (Manual) 92 H (50-75) % Band Neutrophils % 4 H (0-2) % Lymphocytes % (Manual) 3 L (20-40) % Monocytes % (Manual) 1 (0-10) % Platelet Estimate Decreased L (NORMAL) Hypochromasia (manual) Slight Poikilocytosis (manual Slight Anisocytosis (manual) Slight Ovalocytes Slight David Cells Slight PT (9.7-12.2) SECONDS INR APTT (21-34) SECONDS Sodium 140 (132-148) mmol/L Potassium 4.2 (3.6-5.2) mmol/L Chloride 103 (98-107) mmol/L Carbon Dioxide 27 (22-30) mmol/L Anion Gap 14 (10-20) BUN 23 H (9-20) mg/dL Creatinine 1.7 H (0.8-1.5) mg/dL Est GFR ( Amer) 48 Est GFR (Non-Af Amer) 40 POC Glucose (mg/dL) 181 H (65-110) mg/dL Random Glucose 181 H (75-110) mg/dL Calcium 7.8 L (8.6-10.4) mg/dl Phosphorus 3.8 (2.5-4.5) mg/dL Magnesium 1.8 (1.6-2.3) mg/dL Total Bilirubin 0.9 (0.2-1.3) mg/dL AST 29 (17-59) U/L ALT 45 (21-72) U/L Alkaline Phosphatase 115 (38-126) U/L Total Protein 5.8 L (6.3-8.3) g/dL Albumin 3.4 L (3.5-5.0) g/dL Globulin 2.4 (2.2-3.9) gm/dL Albumin/Globulin Ratio 1.4 (1.0-2.1) 05/19/18 05/18/18 05/18/18 Range/Units 06:09 21:08 16:19 WBC (4.8-10.8) K/uL RBC (4.40-5.90) Mil/uL Hgb (12.0-18.0) g/dL Hct (35.0-51.0) % MCV (80.0-94.0) fL MCH (27.0-31.0) pg MCHC (33.0-37.0) g/dL RDW (11.5-14.5) % Plt Count (130-400) K/uL MPV (7.2-11.7) fL Neut % (Auto) (50.0-75.0) % Lymph % (Auto) (20.0-40.0) % Grimes % (Auto) (0.0-10.0) % Eos % (Auto) (0.0-4.0) % Baso % (Auto) (0.0-2.0) % Neut # (Auto) (1.8-7.0) K/uL Lymph # (Auto) (1.0-4.3) K/uL Grimes # (Auto) (0.0-0.8) K/uL Eos # (Auto) (0.0-0.7) K/uL Baso # (Auto) (0.0-0.2) K/uL Neutrophils % (Manual) (50-75) % Band Neutrophils % (0-2) % Lymphocytes % (Manual) (20-40) % Monocytes % (Manual) (0-10) % Platelet Estimate (NORMAL) Hypochromasia (manual) Poikilocytosis (manual Anisocytosis (manual) Ovalocytes David Cells PT 10.5 (9.7-12.2) SECONDS INR 1.0 APTT 39 H (21-34) SECONDS Sodium (132-148) mmol/L Potassium (3.6-5.2) mmol/L Chloride (98-107) mmol/L Carbon Dioxide (22-30) mmol/L Anion Gap (10-20) BUN (9-20) mg/dL Creatinine (0.8-1.5) mg/dL Est GFR ( Amer) Est GFR (Non-Af Amer) POC Glucose (mg/dL) 118 H 144 H (65-110) mg/dL Random Glucose (75-110) mg/dL Calcium (8.6-10.4) mg/dl Phosphorus (2.5-4.5) mg/dL Magnesium (1.6-2.3) mg/dL Total Bilirubin (0.2-1.3) mg/dL AST (17-59) U/L ALT (21-72) U/L Alkaline Phosphatase (38-126) U/L Total Protein (6.3-8.3) g/dL Albumin (3.5-5.0) g/dL Globulin (2.2-3.9) gm/dL Albumin/Globulin Ratio (1.0-2.1) 05/18/18 05/18/18 Range/Units 11:19 07:23 WBC (4.8-10.8) K/uL RBC (4.40-5.90) Mil/uL Hgb (12.0-18.0) g/dL Hct (35.0-51.0) % MCV (80.0-94.0) fL MCH (27.0-31.0) pg MCHC (33.0-37.0) g/dL RDW (11.5-14.5) % Plt Count (130-400) K/uL MPV (7.2-11.7) fL Neut % (Auto) (50.0-75.0) % Lymph % (Auto) (20.0-40.0) % Grimes % (Auto) (0.0-10.0) % Eos % (Auto) (0.0-4.0) % Baso % (Auto) (0.0-2.0) % Neut # (Auto) (1.8-7.0) K/uL Lymph # (Auto) (1.0-4.3) K/uL Grimes # (Auto) (0.0-0.8) K/uL Eos # (Auto) (0.0-0.7) K/uL Baso # (Auto) (0.0-0.2) K/uL Neutrophils % (Manual) (50-75) % Band Neutrophils % (0-2) % Lymphocytes % (Manual) (20-40) % Monocytes % (Manual) (0-10) % Platelet Estimate (NORMAL) Hypochromasia (manual) Poikilocytosis (manual Anisocytosis (manual) Ovalocytes David Cells PT (9.7-12.2) SECONDS INR APTT (21-34) SECONDS Sodium (132-148) mmol/L Potassium (3.6-5.2) mmol/L Chloride (98-107) mmol/L Carbon Dioxide (22-30) mmol/L Anion Gap (10-20) BUN (9-20) mg/dL Creatinine (0.8-1.5) mg/dL Est GFR ( Amer) Est GFR (Non-Af Amer) POC Glucose (mg/dL) 129 H 118 H (65-110) mg/dL Random Glucose (75-110) mg/dL Calcium (8.6-10.4) mg/dl Phosphorus (2.5-4.5) mg/dL Magnesium (1.6-2.3) mg/dL Total Bilirubin (0.2-1.3) mg/dL AST (17-59) U/L ALT (21-72) U/L Alkaline Phosphatase (38-126) U/L Total Protein (6.3-8.3) g/dL Albumin (3.5-5.0) g/dL Globulin (2.2-3.9) gm/dL Albumin/Globulin Ratio (1.0-2.1) Laboratory Results - last 24 hr 05/18/18 05/18/18 05/18/18 07:23 11:19 16:19 WBC RBC Hgb Hct MCV MCH MCHC RDW Plt Count MPV Neut % (Auto) Lymph % (Auto) Grimes % (Auto) Eos % (Auto) Baso % (Auto) Neut # (Auto) Lymph # (Auto) Grimes # (Auto) Eos # (Auto) Baso # (Auto) Neutrophils % (Manual) Band Neutrophils % Lymphocytes % (Manual) Monocytes % (Manual) Platelet Estimate Hypochromasia (manual) Poikilocytosis (manual Anisocytosis (manual) Ovalocytes [place] Cells PT INR APTT Sodium Potassium Chloride Carbon Dioxide Anion Gap BUN Creatinine Est GFR ( Amer) Est GFR (Non-Af Amer) POC Glucose (mg/dL) 118 H 129 H 144 H Random Glucose Calcium Phosphorus Magnesium Total Bilirubin AST ALT Alkaline Phosphatase Total Protein Albumin Globulin Albumin/Globulin Ratio 05/18/18 05/19/18 05/19/18 21:08 06:09 06:09 WBC 17.7 H RBC 2.96 L Hgb 8.9 L Hct 28.5 L MCV 96.2 H D MCH 30.2 MCHC 31.4 L RDW 25.9 H Plt Count 71 L MPV 9.4 Neut % (Auto) 95.3 H Lymph % (Auto) 1.8 L Grimes % (Auto) 2.4 Eos % (Auto) 0.1 Baso % (Auto) 0.4 Neut # (Auto) 16.8 H Lymph # (Auto) 0.3 L Grimes # (Auto) 0.4 Eos # (Auto) 0.0 Baso # (Auto) 0.1 Neutrophils % (Manual) 92 H Band Neutrophils % 4 H Lymphocytes % (Manual) 3 L Monocytes % (Manual) 1 Platelet Estimate Decreased L Hypochromasia (manual) Slight Poikilocytosis (manual Slight Anisocytosis (manual) Slight Ovalocytes Slight David Cells Slight PT 10.5 INR 1.0 APTT 39 H Sodium Potassium Chloride Carbon Dioxide Anion Gap BUN Creatinine Est GFR ( Amer) Est GFR (Non-Af Amer) POC Glucose (mg/dL) 118 H Random Glucose Calcium Phosphorus Magnesium Total Bilirubin AST ALT Alkaline Phosphatase Total Protein Albumin Globulin Albumin/Globulin Ratio 05/19/18 05/19/18 06:09 07:33 WBC RBC Hgb Hct MCV MCH MCHC RDW Plt Count MPV Neut % (Auto) Lymph % (Auto) Grimes % (Auto) Eos % (Auto) Baso % (Auto) Neut # (Auto) Lymph # (Auto) Grimes # (Auto) Eos # (Auto) Baso # (Auto) Neutrophils % (Manual) Band Neutrophils % Lymphocytes % (Manual) Monocytes % (Manual) Platelet Estimate Hypochromasia (manual) Poikilocytosis (manual Anisocytosis (manual) Ovalocytes David Cells PT INR APTT Sodium 140 Potassium 4.2 Chloride 103 Carbon Dioxide 27 Anion Gap 14 BUN 23 H Creatinine 1.7 H Est GFR ( Amer) 48 Est GFR (Non-Af Amer) 40 POC Glucose (mg/dL) 181 H Random Glucose 181 H Calcium 7.8 L Phosphorus 3.8 Magnesium 1.8 Total Bilirubin 0.9 AST 29 ALT 45 Alkaline Phosphatase 115 Total Protein 5.8 L Albumin 3.4 L Globulin 2.4 Albumin/Globulin Ratio 1.4 EKG/Cardiology Studies: Cardiology / EKG Studies 05/19/18 07:00 EKG [ELECTROCARDIOGRAM] Routine Comment: Mode Of Transportation: Reason For Exam: pre-op eval Isolation: Contact Droplet Fingerstick Blood Sugar Results: 181 Review of Systems - Review of Systems Systems not reviewed;Unavailable: Acuity of Condition Critical Care Progress Note - Extremities/Vascular Does the Patient have a Central Venous Catheter?: Yes Insertion Site: Femoral Vein (right) Does the Patient need a Central Venous Catheter?: Yes Does the Patient have a Ramires Catheter?: No Does the Patient need a Ramires Catheter?: No - Prophylaxis GI Prophylaxis GI: PPI - Prophylaxis DVT Prophylaxis DVT: Not Indicated - Nutrition Nutrition: Nutrition Category Date Time Status NPO Diet [DIET] Diets 05/18/18 Dinner Active Assessment/Plan - Assessment and Plan (Free Text) Assessment: Patient is a 72 yo male with multiple medical issues who presented with slurred speech and edematous upper extremities. Patient was found to be hypothermic, hypoglycemic, and hypotensive. 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 He has been taken off isolation. His mental status continues to wax and wane. He is weak with poor appetite and has a productive cough. He started HD on 05/12. Patient developed SVT/Vtach and HD was permaturely stopped. Similar episode happened during HD on 05/13. He completed a "SLED" HD 05/15 and 05/16, 05/18, 05/19. Will need HD 6 days a week. Cath placed in L femoral artery. Plan: Neuro: AMS- delirium, improving - [place] patient - Neuro checks CV: - Will attempt R midline placement Afib, RVR - Verapamil 2.5 mg IV Q6H PRN - Diltiazem 180 mg PO daily - Eliquis 2.5 mg PO BID- hold Hypotension- septic shock, improved - Monitor vitals - Off pressors - Albumin 37.5 g IV daily PRN if SBP <90 CHF (HFpEF) - s/p AICD/pacemaker - CXR 05/11: mild-mod venous congestion, worsening small b/l pleural effusions, reticulated opacifiction in R upper-mid lung and L apex, cardiomegaly - CT chest/abd/pelvis 05/10: moderate b/l pleural effusions, chronic fibrotic changes, moderate pericardial effusions, diffuse anasarca - Echo 05/08: EF 66%, no vegetation seen, mild-mod TR, RV systolic pressure 40- 50 mmHg, small-mod pericardial effusion - Subsequent CXR continue to show congestion, b/l infiltrates, b/l pleural effusions Pulm: ARDS, improving- /2 fluid overload and/or PNA, DNI - CXR 05/11: mild-mod venous congestion, worsening small b/l pleural effusions, reticulated opacifiction in R upper-mid lung and L apex, cardiomegaly - CXR 05/12: pulm venous congestion, small pleural effusions, background COPD - CT chest/abd/pelvis 05/10: moderate b/l pleural effusions, chronic fibrotic changes, moderate pericardial effusions, diffuse anasarca - Maintain spO2>92%- supplemental O2, BiPAP PRN - ABG 05/17: pH 7.2, pCO2 70, pO2 37 - Duoneb Q4H GI: RUQ pain- suspect constipation - Abd u/s: mod ascites, gallstones nd diffuse GB wall thickening that could be due to soft tissue edema and ascites Anasarca - CT chest/abd/pelvis 05/10: moderate b/l pleural effusions, chronic fibrotic changes, moderate pericardial effusions, diffuse anasarca - Decreased albumin, resolved Poor PO intake, improving - Pureed diet - Glucerna supplements x3 - MV/vit C - Protonix 40 mg PO daily - E Business Manager consulted Renal: Renal failure - s/p R kidney transplant in 2004 - Now anuric - Renal u/s: no abnormalities visualized - Elevated BUN, Cr stable/slight improvement with HD (30, 2.5) - HD on 05/12, 05/13, stopped prematurely due to SVT/Vtach - SLED HD on 05/15, 05/16- completed sessions without complications - Next HD today 05/18, will likely be daily - CMP daily - Replete electrolytes PRN - Phoslo 1334 mg PO TID - Solu-cortef 100 mg IV Q8H - Tacrolimus 4 mg PO BID- hold - Tacrolimus level elevated (6.8->4.6->8.1->23.7->18.7)- continue to monitor - Nephrology consulted (Ghanshyam)- HD 6 days/wk - Vascular surgery consulted (Sharon)- cath placement in L femoral 05/19 Endo: T2DM - Maintain euglycemia - Hypoglycemia protocol - Accuchecks ACHS with low dose regular ISS Hypothyroidism - TSH improved (42.6->19.3->4.03), free T4 low (0.45), total T4 low (1.22) - Thyroid Abs not detected - Synthroid to 200 mcg IV daily - Endocrinology consulted (Acosta) Heme: Thrombocytopenia - Plts stable (71) - Hold ppx heparin - HIT Abs pending Coagulopathy - PT/INR/PTT improved- s/p 4u FFP on 05/12 and Vit K 10 mg IV x 3 days - Fibrinogen wnl (235), and fibrinogen degradation products >40 - Monitor coags- cryoprecip if fibrinogen <150 - Venous Dopplers UE and LE: no DVT Anemia - Anemic at BL- stable s/p 1u PRBC on 05/12 - FOBT negative - Monitor CBC - Folic acid 1 mg PO daily - Thiamine 200 mg IV Q8H ID: Septic shock- improved form initial presentation, now worsening sepsis with concern for hospital acquired PNA - Temp 88.6 on admission, improving (96-97) - Warming blanket - Leukocytosis, stable- 4 bands - Lactate wnl - Procal 3.68 - Sputum Cx: ESBL - Blood, Urine Cx no growth - Repeat Blood Cx no growth >48 hrs - Repeat Urine Cx- yeast - MRSA screen negative - HIV negative - C. 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 - L knee XR: moderate suprapatellar effusion and soft tissue swelling - Rifampin 600 mg PO daily - Isoniazid 300 mg PO daily - Vit B6 50 mg PO daily - Ortho consulted (La)- no procedures indicated at this time, rec plastics - ID consulted (Charity)- continue dual TB therapy Integumentary: Desquamating rash- improving - Mucous membranes NOT involved - Folic acid 1 mg PO daily - Thiamine 200 mg IV Q8H - Cyanocobalmin 1000 mcg PO daily - Vit A&D ointment - Collagenase - Lac-hydrin - Wound care consult PPx: VTE: contraindicated due to decreasing Plts, skin inflammation GI: PTX 40 mg PO daily PT/OT/ST- OOB to chair Code status: DNR/DNI (POLST) Palliative consult- patient and family initially agreeable to hospice eval Hospice eval- patient and family now willing to pursue further treatment but still DNR/DNI Case discussed with attending, Dr. Malvin Barnett. PGY-1 Natasha Khan D.O. <Roman Barnett - Last Filed: 05/19/18 18:49> CCU Objective - Vital Signs / Intake & Output Vital Signs (Last 4 hours): Vital Signs Pulse Resp BP Pulse Ox 05/19/18 16:44 96 H 05/19/18 16:07 95 H 12 129/54 L 100 05/19/18 16:00 92 H 12 100 05/19/18 15:52 98 H 12 117/53 L 100 05/19/18 15:37 101 H 11 L 125/59 L 100 05/19/18 15:23 103 H 12 123/64 100 05/19/18 15:07 131/68 05/19/18 15:06 89 100 05/19/18 15:05 61 100 Intake and Output (Last 8hrs): Intake & Output 05/19/18 05/19/18 05/19/18 06:59 14:59 22:59 Intake Total 180 440 30 Output Total 0 2000 Balance 180 -1560 30 Weight 125 lb 12.8 oz Intake: IV 260 Intake, IV Amount 180 180 30 Right 80 80 30 Right Femoral Side-Port 100 100 Oral 0 Output: Urine 0 0 Straight 0 Urine, Voided 0 Other 1999 Other: # Voids Urine, Voided 1 # Bowel Movements 1 0 - Medications Active Medications: Active Medications Generic Name Dose Route Start Last Admin Trade Name Freq PRN Reason Stop Dose Admin Albumin Human 37.5 gm 05/12/18 16:00 Albumin Human 25% (12.5 Gm/50 Ml) IV DAILY PRN PER HD IF SBP IS LESS THAN 90 Albumin Human 12.5 gm 05/16/18 11:47 05/19/18 10:06 Albumin Human 25% (12.5 Gm/50 Ml) IV 12.5 gm ONCE PRN Administration hypotension Albuterol/Ipratropium 3 ml 05/12/18 19:00 05/19/18 16:43 Duoneb 3 Mg/0.5 Mg (3 Ml) Ud INH 3 ml RQ4 FAHEEM Administration Calcium Acetate 1,334 mg 05/12/18 13:21 05/19/18 16:25 Phoslo PO 1,334 mg TIDCC FAHEEM Administration Collagenase 0 gm 05/11/18 11:00 05/19/18 11:58 Santyl TOP 1 oin DAILY FAHEEM Administration Cyanocobalamin 1,000 mcg 05/12/18 10:00 05/19/18 16:24 Vitamin B12 1000 Mcg Tab PO 1,000 mcg DAILY FAHEEM Administration Dextrose 0 ml 05/08/18 17:53 05/16/18 21:23 Dextrose 50% Inj IV 50 ml STAT PRN Administration Hypoglycemia Protocol Protocol Dextrose 0 gm 05/08/18 17:53 Glutose 15 PO ONCE PRN Hypoglycemia Protocol Protocol Diltiazem HCl 180 mg 05/14/18 10:00 05/19/18 16:26 Cardizem Cd PO 180 mg DAILY FAHEEM Administration Docusate Sodium 100 mg 05/18/18 14:59 Colace PO BID PRN Constipation Epoetin Jean Paul 10,000 unit 05/22/18 09:00 Procrit IV MWF FAHEEM Folic Acid 1 mg 05/09/18 10:00 05/19/18 11:48 Folic Acid PO Not Given DAILY FAHEEM Glucagon 0 mg 05/08/18 17:53 Glucagen Diagnostic Kit IM STAT PRN Hypoglycemia Protocol Protocol Heparin Sodium (Porcine) 5,000 units 05/14/18 11:00 05/16/18 10:41 Heparin SC Not Given Q12 FAHEEM Hydrocortisone Sodium Succinate 100 mg 05/16/18 10:45 05/19/18 18:08 Solu-Cortef IV 100 mg Q8H FAHEEM Administration Daptomycin 300 mg/ Sodium 100 mls @ 200 mls/hr 05/10/18 18:30 05/18/18 17:33 Chloride IV 200 mls/hr Q48H FAHEEM Administration Micafungin Sodium 100 mg/ 100 mls @ 100 mls/hr 05/10/18 20:00 05/18/18 20:07 Sodium Chloride IV 100 mls/hr Q24H FAHEEM Administration Protocol Phenylephrine HCl 30 mg/ 253 mls @ 20.24 mls/hr 05/13/18 17:00 05/13/18 18:30 Dextrose IV 0 mcg/min .[id number] PRN 0 mls/hr TITRATE PER MD ORDER Titration Protocol 40 MCG/MIN Meropenem 500 mg/ Sodium 100 mls @ 100 mls/hr 05/14/18 23:00 05/19/18 11:37 Chloride IVPB 100 mls/hr Q12H FAHEEM Administration Protocol Dextrose 500 mls @ 10 mls/hr 05/17/18 07:00 05/19/18 08:21 Dextrose 10% In Water IV 10 mls/hr .Q24H FAHEEM Administration Insulin Human Regular 0 unit 05/16/18 16:50 05/19/18 16:23 Novolin R SC Not Given ACHS FAHEEM Protocol Isoniazid 300 mg 05/15/18 12:00 05/19/18 15:40 Niazid PO 300 mg DAILY FAHEEM Administration Protocol Lactic Acid 0 gm 05/12/18 07:00 05/19/18 15:42 Lac-Hydrin 12% Lotion (225 G) EXT 1 applic Q8 FAHEEM Administration Levothyroxine Sodium 200 mcg 05/17/18 06:00 05/19/18 05:48 Levothyroxine IVP 200 mcg Q24H FAHEEM Administration Multivitamins 1 tab 05/15/18 13:00 05/19/18 15:41 Hexavitamin PO 1 tab DAILY FAHEEM Administration Pantoprazole Sodium 40 mg 05/12/18 21:00 05/19/18 09:35 Protonix Inj IVP 40 mg Q12H FAHEEM Administration Polyethylene Glycol 17 gm 05/18/18 12:14 Miralax PO BID PRN Constipation Pyridoxine HCl 50 mg 05/09/18 10:00 05/19/18 16:24 Vitamin B6 50 Mg Tab PO 50 mg DAILY FAHEEM Administration Rifampin 600 mg 05/15/18 12:00 05/19/18 16:24 Rifampin Cap PO 600 mg DAILY FAHEEM Administration Protocol Tacrolimus 4 mg 05/15/18 11:35 05/17/18 10:16 Prograf Cap PO Not Given BID FAHEEM Thiamine HCl 200 mg 05/11/18 09:45 05/19/18 17:02 Vitamin B1 Inj IV 200 mg Q8H FAHEEM Administration Verapamil HCl 2.5 mg 05/13/18 16:52 05/19/18 11:36 Verapamil Inj IVP 2.5 mg Q6H PRN Administration Heart rate Vitamin A 0 ea 05/11/18 18:00 05/19/18 17:03 Vitamin A & D Oint Ud Foilpak TOP 1 ea BID [facility] Administration - Patient Studies Lab Studies: Microbiology Studies 05/17/18 09:30 Blood Culture - Preliminary Blood NO GROWTH AFTER 48 HOURS 05/17/18 09:00 Blood Culture - Preliminary Blood NO GROWTH AFTER 48 HOURS 05/17/18 12:22 Urine Culture - Final Urine,Catheterized Yeast Species Lab Studies 05/19/18 05/19/18 05/19/18 Range/Units 16:15 12:07 12:07 WBC (4.8-10.8) K/uL RBC (4.40-5.90) Mil/uL Hgb (12.0-18.0) g/dL Hct (35.0-51.0) % MCV (80.0-94.0) fL MCH (27.0-31.0) pg MCHC (33.0-37.0) g/dL RDW (11.5-14.5) % Plt Count (130-400) K/uL MPV (7.2-11.7) fL Neut % (Auto) (50.0-75.0) % Lymph % (Auto) (20.0-40.0) % Grimes % (Auto) (0.0-10.0) % Eos % (Auto) (0.0-4.0) % Baso % (Auto) (0.0-2.0) % Neut # (Auto) (1.8-7.0) K/uL Lymph # (Auto) (1.0-4.3) K/uL Grimes # (Auto) (0.0-0.8) K/uL Eos # (Auto) (0.0-0.7) K/uL Baso # (Auto) (0.0-0.2) K/uL Neutrophils % (Manual) (50-75) % Band Neutrophils % (0-2) % Lymphocytes % (Manual) (20-40) % Monocytes % (Manual) (0-10) % Platelet Estimate (NORMAL) Hypochromasia (manual) Poikilocytosis (manual Anisocytosis (manual) Ovalocytes [place] Cells PT (9.7-12.2) SECONDS INR APTT (21-34) SECONDS Puncture Site pCO2 (35-45) mm/Hg pO2 (80-100) mm/Hg HCO3 (21-28) mmol/L ABG pH (7.35-7.45) ABG Total CO2 (22-28) mmol/L ABG O2 Saturation (95-98) % ABG Base Excess (-2.0-3.0) mmol/L Nehemiah Test ABG Potassium (3.6-5.2) mmol/L A-a O2 Difference mm/Hg Respiratory Index Glucose (75-110) mg/dl Lactate (0.7-2.1) mmol/L Vent Mode FiO2 % Inspiratory BiPAP Expiratory BiPAP Sodium 138 (132-148) mmol/L Potassium 4.3 (3.6-5.2) mmol/L Chloride 97 L (98-107) mmol/L Carbon Dioxide 30 (22-30) mmol/L Anion Gap 15 (10-20) BUN 11 (9-20) mg/dL Creatinine 0.9 (0.8-1.5) mg/dL Est GFR ( Amer) > 60 Est GFR (Non-Af Amer) > 60 POC Glucose (mg/dL) 106 (65-110) mg/dL Random Glucose 113 H (75-110) mg/dL Calcium 8.2 L (8.6-10.4) mg/dl Phosphorus (2.5-4.5) mg/dL Magnesium (1.6-2.3) mg/dL % Saturation 48 (20-55) Ferritin 721.0 ng/mL Total Bilirubin 1.5 H (0.2-1.3) mg/dL AST 75 H D (17-59) U/L ALT 49 (21-72) U/L Alkaline Phosphatase 94 (38-126) U/L Total Protein 7.3 (6.3-8.3) g/dL Albumin 4.3 (3.5-5.0) g/dL Globulin 3.0 (2.2-3.9) gm/dL Albumin/Globulin Ratio 1.4 (1.0-2.1) Arterial Blood Potassium (3.6-5.2) mmol/L Tacrolimus (LC/MS/MS) (5.0-20.0) mcg/L Heparin-induced Plt Ab (Negative) 05/19/18 05/19/18 05/19/18 Range/Units 11:32 10:50 07:33 WBC (4.8-10.8) K/uL RBC (4.40-5.90) Mil/uL Hgb (12.0-18.0) g/dL Hct (35.0-51.0) % MCV (80.0-94.0) fL MCH (27.0-31.0) pg MCHC (33.0-37.0) g/dL RDW (11.5-14.5) % Plt Count (130-400) K/uL MPV (7.2-11.7) fL Neut % (Auto) (50.0-75.0) % Lymph % (Auto) (20.0-40.0) % Grimes % (Auto) (0.0-10.0) % Eos % (Auto) (0.0-4.0) % Baso % (Auto) (0.0-2.0) % Neut # (Auto) (1.8-7.0) K/uL Lymph # (Auto) (1.0-4.3) K/uL Grimes # (Auto) (0.0-0.8) K/uL Eos # (Auto) (0.0-0.7) K/uL Baso # (Auto) (0.0-0.2) K/uL Neutrophils % (Manual) (50-75) % Band Neutrophils % (0-2) % Lymphocytes % (Manual) (20-40) % Monocytes % (Manual) (0-10) % Platelet Estimate (NORMAL) Hypochromasia (manual) Poikilocytosis (manual Anisocytosis (manual) Ovalocytes [place] Cells PT (9.7-12.2) SECONDS INR APTT (21-34) SECONDS Puncture Site Rb pCO2 52 H (35-45) mm/Hg pO2 339 H (80-100) mm/Hg HCO3 28.4 H (21-28) mmol/L ABG pH 7.38 (7.35-7.45) ABG Total CO2 32.4 H (22-28) mmol/L ABG O2 Saturation 99.5 H (95-98) % ABG Base Excess 4.4 H (-2.0-3.0) mmol/L Nehemiah Test Pos ABG Potassium 3.6 (3.6-5.2) mmol/L A-a O2 Difference 309.0 mm/Hg Respiratory Index 0.9 Glucose 120 H (75-110) mg/dl Lactate 1.1 (0.7-2.1) mmol/L Vent Mode Bipap FiO2 100.0 % Inspiratory BiPAP 16 Expiratory BiPAP 10 Sodium 139.0 (132-148) mmol/L Potassium (3.6-5.2) mmol/L Chloride 106.0 (98-107) mmol/L Carbon Dioxide (22-30) mmol/L Anion Gap (10-20) BUN (9-20) mg/dL Creatinine (0.8-1.5) mg/dL Est GFR ( Amer) Est GFR (Non-Af Amer) POC Glucose (mg/dL) 101 181 H (65-110) mg/dL Random Glucose (75-110) mg/dL Calcium (8.6-10.4) mg/dl Phosphorus (2.5-4.5) mg/dL Magnesium (1.6-2.3) mg/dL % Saturation (20-55) Ferritin ng/mL Total Bilirubin (0.2-1.3) mg/dL AST (17-59) U/L ALT (21-72) U/L Alkaline Phosphatase (38-126) U/L Total Protein (6.3-8.3) g/dL Albumin (3.5-5.0) g/dL Globulin (2.2-3.9) gm/dL Albumin/Globulin Ratio (1.0-2.1) Arterial Blood Potassium 3.6 (3.6-5.2) mmol/L Tacrolimus (LC/MS/MS) (5.0-20.0) mcg/L Heparin-induced Plt Ab (Negative) 05/19/18 05/19/18 05/19/18 Range/Units 06:09 06:09 06:09 WBC 17.7 H (4.8-10.8) K/uL RBC 2.96 L (4.40-5.90) Mil/uL Hgb 8.9 L (12.0-18.0) g/dL Hct 28.5 L (35.0-51.0) % MCV 96.2 H D (80.0-94.0) fL MCH 30.2 (27.0-31.0) pg MCHC 31.4 L (33.0-37.0) g/dL RDW 25.9 H (11.5-14.5) % Plt Count 71 L (130-400) K/uL MPV 9.4 (7.2-11.7) fL Neut % (Auto) 95.3 H (50.0-75.0) % Lymph % (Auto) 1.8 L (20.0-40.0) % Grimes % (Auto) 2.4 (0.0-10.0) % Eos % (Auto) 0.1 (0.0-4.0) % Baso % (Auto) 0.4 (0.0-2.0) % Neut # (Auto) 16.8 H (1.8-7.0) K/uL Lymph # (Auto) 0.3 L (1.0-4.3) K/uL Grimes # (Auto) 0.4 (0.0-0.8) K/uL Eos # (Auto) 0.0 (0.0-0.7) K/uL Baso # (Auto) 0.1 (0.0-0.2) K/uL Neutrophils % (Manual) 92 H (50-75) % Band Neutrophils % 4 H (0-2) % Lymphocytes % (Manual) 3 L (20-40) % Monocytes % (Manual) 1 (0-10) % Platelet Estimate Decreased L (NORMAL) Hypochromasia (manual) Slight Poikilocytosis (manual Slight Anisocytosis (manual) Slight Ovalocytes Slight David Cells Slight PT 10.5 (9.7-12.2) SECONDS INR 1.0 APTT 39 H (21-34) SECONDS Puncture Site pCO2 (35-45) mm/Hg pO2 (80-100) mm/Hg HCO3 (21-28) mmol/L ABG pH (7.35-7.45) ABG Total CO2 (22-28) mmol/L ABG O2 Saturation (95-98) % ABG Base Excess (-2.0-3.0) mmol/L Nehemiah Test ABG Potassium (3.6-5.2) mmol/L A-a O2 Difference mm/Hg Respiratory Index Glucose (75-110) mg/dl Lactate (0.7-2.1) mmol/L Vent Mode FiO2 % Inspiratory BiPAP Expiratory BiPAP Sodium 140 (132-148) mmol/L Potassium 4.2 (3.6-5.2) mmol/L Chloride 103 (98-107) mmol/L Carbon Dioxide 27 (22-30) mmol/L Anion Gap 14 (10-20) BUN 23 H (9-20) mg/dL Creatinine 1.7 H (0.8-1.5) mg/dL Est GFR ( Amer) 48 Est GFR (Non-Af Amer) 40 POC Glucose (mg/dL) (65-110) mg/dL Random Glucose 181 H (75-110) mg/dL Calcium 7.8 L (8.6-10.4) mg/dl Phosphorus 3.8 (2.5-4.5) mg/dL Magnesium 1.8 (1.6-2.3) mg/dL % Saturation (20-55) Ferritin ng/mL Total Bilirubin 0.9 (0.2-1.3) mg/dL AST 29 (17-59) U/L ALT 45 (21-72) U/L Alkaline Phosphatase 115 (38-126) U/L Total Protein 5.8 L (6.3-8.3) g/dL Albumin 3.4 L (3.5-5.0) g/dL Globulin 2.4 (2.2-3.9) gm/dL Albumin/Globulin Ratio 1.4 (1.0-2.1) Arterial Blood Potassium (3.6-5.2) mmol/L Tacrolimus (LC/MS/MS) (5.0-20.0) mcg/L Heparin-induced Plt Ab (Negative) 05/18/18 05/18/18 05/17/18 Range/Units 21:08 06:15 12:14 WBC (4.8-10.8) K/uL RBC (4.40-5.90) Mil/uL Hgb (12.0-18.0) g/dL Hct (35.0-51.0) % MCV (80.0-94.0) fL MCH (27.0-31.0) pg MCHC (33.0-37.0) g/dL RDW (11.5-14.5) % Plt Count (130-400) K/uL MPV (7.2-11.7) fL Neut % (Auto) (50.0-75.0) % Lymph % (Auto) (20.0-40.0) % Grimes % (Auto) (0.0-10.0) % Eos % (Auto) (0.0-4.0) % Baso % (Auto) (0.0-2.0) % Neut # (Auto) (1.8-7.0) K/uL Lymph # (Auto) (1.0-4.3) K/uL Grimes # (Auto) (0.0-0.8) K/uL Eos # (Auto) (0.0-0.7) K/uL Baso # (Auto) (0.0-0.2) K/uL Neutrophils % (Manual) (50-75) % Band Neutrophils % (0-2) % Lymphocytes % (Manual) (20-40) % Monocytes % (Manual) (0-10) % Platelet Estimate (NORMAL) Hypochromasia (manual) Poikilocytosis (manual Anisocytosis (manual) Ovalocytes [place] Cells PT (9.7-12.2) SECONDS INR APTT (21-34) SECONDS Puncture Site pCO2 (35-45) mm/Hg pO2 (80-100) mm/Hg HCO3 (21-28) mmol/L ABG pH (7.35-7.45) ABG Total CO2 (22-28) mmol/L ABG O2 Saturation (95-98) % ABG Base Excess (-2.0-3.0) mmol/L Nehemiah Test ABG Potassium (3.6-5.2) mmol/L A-a O2 Difference mm/Hg Respiratory Index Glucose (75-110) mg/dl Lactate (0.7-2.1) mmol/L Vent Mode FiO2 % Inspiratory BiPAP Expiratory BiPAP Sodium (132-148) mmol/L Potassium (3.6-5.2) mmol/L Chloride (98-107) mmol/L Carbon Dioxide (22-30) mmol/L Anion Gap (10-20) BUN (9-20) mg/dL Creatinine (0.8-1.5) mg/dL Est GFR ( Amer) Est GFR (Non-Af Amer) POC Glucose (mg/dL) 118 H (65-110) mg/dL Random Glucose (75-110) mg/dL Calcium (8.6-10.4) mg/dl Phosphorus (2.5-4.5) mg/dL Magnesium (1.6-2.3) mg/dL % Saturation (20-55) Ferritin ng/mL Total Bilirubin (0.2-1.3) mg/dL AST (17-59) U/L ALT (21-72) U/L Alkaline Phosphatase (38-126) U/L Total Protein (6.3-8.3) g/dL Albumin (3.5-5.0) g/dL Globulin (2.2-3.9) gm/dL Albumin/Globulin Ratio (1.0-2.1) Arterial Blood Potassium (3.6-5.2) mmol/L Tacrolimus (LC/MS/MS) 7.8 (5.0-20.0) mcg/L Heparin-induced Plt Ab Negative (Negative) Laboratory Results - last 24 hr 05/17/18 05/18/18 05/18/18 12:14 06:15 21:08 WBC RBC Hgb Hct MCV MCH MCHC RDW Plt Count MPV Neut % (Auto) Lymph % (Auto) Grimes % (Auto) Eos % (Auto) Baso % (Auto) Neut # (Auto) Lymph # (Auto) Grimes # (Auto) Eos # (Auto) Baso # (Auto) Neutrophils % (Manual) Band Neutrophils % Lymphocytes % (Manual) Monocytes % (Manual) Platelet Estimate Hypochromasia (manual) Poikilocytosis (manual Anisocytosis (manual) Ovalocytes David Cells PT INR APTT Puncture Site pCO2 pO2 HCO3 ABG pH ABG Total CO2 ABG O2 Saturation ABG Base Excess Nehemiah Test ABG Potassium A-a O2 Difference Respiratory Index Glucose Lactate Vent Mode FiO2 Inspiratory BiPAP Expiratory BiPAP Sodium Potassium Chloride Carbon Dioxide Anion Gap BUN Creatinine Est GFR ( Amer) Est GFR (Non-Af Amer) POC Glucose (mg/dL) 118 H Random Glucose Calcium Phosphorus Magnesium % Saturation Ferritin Total Bilirubin AST ALT Alkaline Phosphatase Total Protein Albumin Globulin Albumin/Globulin Ratio Arterial Blood Potassium Tacrolimus (LC/MS/MS) 7.8 Heparin-induced Plt Ab Negative 05/19/18 05/19/18 05/19/18 06:09 06:09 06:09 WBC 17.7 H RBC 2.96 L Hgb 8.9 L Hct 28.5 L MCV 96.2 H D MCH 30.2 MCHC 31.4 L RDW 25.9 H Plt Count 71 L MPV 9.4 Neut % (Auto) 95.3 H Lymph % (Auto) 1.8 L Grimes % (Auto) 2.4 Eos % (Auto) 0.1 Baso % (Auto) 0.4 Neut # (Auto) 16.8 H Lymph # (Auto) 0.3 L Grimes # (Auto) 0.4 Eos # (Auto) 0.0 Baso # (Auto) 0.1 Neutrophils % (Manual) 92 H Band Neutrophils % 4 H Lymphocytes % (Manual) 3 L Monocytes % (Manual) 1 Platelet Estimate Decreased L Hypochromasia (manual) Slight Poikilocytosis (manual Slight Anisocytosis (manual) Slight Ovalocytes Slight David Cells Slight PT 10.5 INR 1.0 APTT 39 H Puncture Site pCO2 pO2 HCO3 ABG pH ABG Total CO2 ABG O2 Saturation ABG Base Excess Nehemiah Test ABG Potassium A-a O2 Difference Respiratory Index Glucose Lactate Vent Mode FiO2 Inspiratory BiPAP Expiratory BiPAP Sodium 140 Potassium 4.2 Chloride 103 Carbon Dioxide 27 Anion Gap 14 BUN 23 H Creatinine 1.7 H Est GFR ( Amer) 48 Est GFR (Non-Af Amer) 40 POC Glucose (mg/dL) Random Glucose 181 H Calcium 7.8 L Phosphorus 3.8 Magnesium 1.8 % Saturation Ferritin Total Bilirubin 0.9 AST 29 ALT 45 Alkaline Phosphatase 115 Total Protein 5.8 L Albumin 3.4 L Globulin 2.4 Albumin/Globulin Ratio 1.4 Arterial Blood Potassium Tacrolimus (LC/MS/MS) Heparin-induced Plt Ab 05/19/18 05/19/18 05/19/18 07:33 10:50 11:32 WBC RBC Hgb Hct MCV MCH MCHC RDW Plt Count MPV Neut % (Auto) Lymph % (Auto) Grimes % (Auto) Eos % (Auto) Baso % (Auto) Neut # (Auto) Lymph # (Auto) Grimes # (Auto) Eos # (Auto) Baso # (Auto) Neutrophils % (Manual) Band Neutrophils % Lymphocytes % (Manual) Monocytes % (Manual) Platelet Estimate Hypochromasia (manual) Poikilocytosis (manual Anisocytosis (manual) Ovalocytes David Cells PT INR APTT Puncture Site Rb pCO2 52 H pO2 339 H HCO3 28.4 H ABG pH 7.38 ABG Total CO2 32.4 H ABG O2 Saturation 99.5 H ABG Base Excess 4.4 H Nehemiah Test Pos ABG Potassium 3.6 A-a O2 Difference 309.0 Respiratory Index 0.9 Glucose 120 H Lactate 1.1 Vent Mode Bipap FiO2 100.0 Inspiratory BiPAP 16 Expiratory BiPAP 10 Sodium 139.0 Potassium Chloride 106.0 Carbon Dioxide Anion Gap BUN Creatinine Est GFR ( Amer) Est GFR (Non-Af Amer) POC Glucose (mg/dL) 181 H 101 Random Glucose Calcium Phosphorus Magnesium % Saturation Ferritin Total Bilirubin AST ALT Alkaline Phosphatase Total Protein Albumin Globulin Albumin/Globulin Ratio Arterial Blood Potassium 3.6 Tacrolimus (LC/MS/MS) Heparin-induced Plt Ab 05/19/18 05/19/18 05/19/18 12:07 12:07 16:15 WBC RBC Hgb Hct MCV MCH MCHC RDW Plt Count MPV Neut % (Auto) Lymph % (Auto) Grimes % (Auto) Eos % (Auto) Baso % (Auto) Neut # (Auto) Lymph # (Auto) Grimes # (Auto) Eos # (Auto) Baso # (Auto) Neutrophils % (Manual) Band Neutrophils % Lymphocytes % (Manual) Monocytes % (Manual) Platelet Estimate Hypochromasia (manual) Poikilocytosis (manual Anisocytosis (manual) Ovalocytes David Cells PT INR APTT Puncture Site pCO2 pO2 HCO3 ABG pH ABG Total CO2 ABG O2 Saturation ABG Base Excess Nehemiah Test ABG Potassium A-a O2 Difference Respiratory Index Glucose Lactate Vent Mode FiO2 Inspiratory BiPAP Expiratory BiPAP Sodium 138 Potassium 4.3 Chloride 97 L Carbon Dioxide 30 Anion Gap 15 BUN 11 Creatinine 0.9 Est GFR ( Amer) > 60 Est GFR (Non-Af Amer) > 60 POC Glucose (mg/dL) 106 Random Glucose 113 H Calcium 8.2 L Phosphorus Magnesium % Saturation 48 Ferritin 721.0 Total Bilirubin 1.5 H AST 75 H D ALT 49 Alkaline Phosphatase 94 Total Protein 7.3 Albumin 4.3 Globulin 3.0 Albumin/Globulin Ratio 1.4 Arterial Blood Potassium Tacrolimus (LC/MS/MS) Heparin-induced Plt Ab EKG/Cardiology Studies: Cardiology / EKG Studies 05/19/18 07:00 EKG [ELECTROCARDIOGRAM] Routine Comment: Mode Of Transportation: Reason For Exam: pre-op eval Isolation: Contact Droplet Critical Care Progress Note - Nutrition Nutrition: Nutrition Category Date Time Status Dysphagia/Modified Consistency Diet [DIET] Diets 05/19/18 Dinner Active Assessment/Plan - Assessment and Plan (Free Text) Plan: Patient seen and examined at bedside. Patient drowsy. -Hypercapneic respiratory failure: continue bi-pap -not on pressors -awaiting tunelled HD cath -Above resident documents my clinical management and physical exam Patient remains hemodynamically stable. -continue to monitor -NPO for procedure. -above resident documents my clinical managment and physical exam - Date & Time Date: 05/19/18 Time: 18:49
[2018-05-19 10:59] LABS: ABG ALLEN TEST POS; ARTERIAL BLOOD GAS HCO3 28.4 mmol/L (21-28); ARTERIAL BLOOD GAS O2 SAT 99.5 % (95-98); ARTERIAL BLOOD GAS PCO2 52 mm/Hg (35-45); ARTERIAL BLOOD GAS PH 7.38 (7.35-7.45); ARTERIAL BLOOD GAS PO2 339 mm/Hg (80-100); ARTERIAL BLOOD GAS TCO2 32.4 mmol/L (22-28)
[2018-05-19] MEDS: Meropenem 500 MG in Sodium Chloride 0.9% 100 ML IVPB SCH ×2 (11:37→23:13)
[2018-05-19] MEDS: Multiple Vitamins Tab PO SCH ×2 (11:48→15:41)
[2018-05-19] MEDS: Collagenase 250 Units/gm Ointment(30 gm) TOP SCH (11:58)
[2018-05-19 12:42] LABS: ALB/GLOB RATIO 1.4 (1.0-2.1); ALBUMIN 4.3 g/dL (3.5-5.0); ALT/SGPT 49 U/L (21-72); AST/SGOT 75 U/L (17-59); BLOOD UREA NITROGEN 11 mg/dL (9-20); CALCIUM 8.2 mg/dl (8.6-10.4); GFR NON-AFRICAN AMERICAN > 60
[2018-05-19] MEDS ORDERED: Verapamil 2 ML ONE (13:10)
--- NOTE | 2018-05-19 13:10 | CP.PCM.PN ---
Subjective - Date & Time of Evaluation Date of Evaluation: 05/19/18 Time of Evaluation: 13:07 - Subjective Subjective: Patient slightly more awake. For permacath. No new complaints. Objective - Vital Signs/Intake and Output Vital Signs (last 24 hours): Temp Pulse Resp BP Pulse Ox 98 F 125 H 22 126/71 100 05/19/18 12:00 05/19/18 12:22 05/19/18 12:22 05/19/18 12:22 05/19/18 12:22 Intake and Output: 05/19/18 05/19/18 06:59 18:59 Intake Total 320 160 Output Total 0 2000 Balance 320 -1840 - Medications Medications: Current Medications Albumin Human (Albumin Human 25% (12.5 Gm/50 Ml)) 37.5 gm IV DAILY PRN PRN Reason: PER HD IF SBP IS LESS THAN 90 Albumin Human (Albumin Human 25% (12.5 Gm/50 Ml)) 12.5 gm IV ONCE PRN PRN Reason: hypotension Last Admin: 05/19/18 10:06 Dose: 12.5 gm Albuterol/Ipratropium (Duoneb 3 Mg/0.5 Mg (3 Ml) Ud) 3 ml INH [facility] Last Admin: 05/19/18 08:15 Dose: Not Given Calcium Acetate (Phoslo) 1,334 mg PO [facility] Last Admin: 05/19/18 11:49 Dose: Not Given Collagenase (Santyl) 0 gm TOP DAILY [facility] Last Admin: 05/19/18 11:58 Dose: 1 oin Cyanocobalamin (Vitamin B12 1000 Mcg Tab) 1,000 mcg PO DAILY [facility] Last Admin: 05/18/18 11:00 Dose: 1,000 mcg Dextrose (Dextrose 50% Inj) 0 ml IV STAT PRN; Protocol PRN Reason: Hypoglycemia Protocol Last Admin: 05/16/18 21:23 Dose: 50 ml Dextrose (Glutose 15) 0 gm PO ONCE PRN; Protocol PRN Reason: Hypoglycemia Protocol Diltiazem HCl (Cardizem Cd) 180 mg PO DAILY [facility] Last Admin: 05/18/18 10:37 Dose: 180 mg Docusate Sodium (Colace) 100 mg PO BID PRN PRN Reason: Constipation Epoetin Jean Paul (Procrit) 10,000 unit IV [facility] Folic Acid (Folic Acid) 1 mg PO DAILY [facility] Last Admin: 05/19/18 11:48 Dose: Not Given Glucagon (Glucagen Diagnostic Kit) 0 mg IM STAT PRN; Protocol PRN Reason: Hypoglycemia Protocol Heparin Sodium (Porcine) (Heparin) 5,000 units SC Q12 [facility] Last Admin: 05/16/18 10:41 Dose: Not Given Hydrocortisone Sodium Succinate (Solu-Cortef) 100 mg IV Q8H [facility] Last Admin: 05/19/18 11:56 Dose: 100 mg Daptomycin 300 mg/ Sodium (Chloride) 100 mls @ 200 mls/hr IV Q48H [facility] Last Admin: 05/18/18 17:33 Dose: 200 mls/hr Micafungin Sodium 100 mg/ (Sodium Chloride) 100 mls @ 100 mls/hr IV Q24H [facility]; Protocol Last Admin: 05/18/18 20:07 Dose: 100 mls/hr Phenylephrine HCl 30 mg/ (Dextrose) 253 mls @ 20.24 mls/hr IV .[id number] PRN; Protocol PRN Reason: TITRATE PER MD ORDER Last Titration: 05/13/18 18:30 Dose: 0 mcg/min, 0 mls/hr Meropenem 500 mg/ Sodium (Chloride) 100 mls @ 100 mls/hr IVPB Q12H [facility]; Protocol Last Admin: 05/19/18 11:37 Dose: 100 mls/hr Dextrose (Dextrose 10% In Water) 500 mls @ 10 mls/hr IV .Q24H [facility] Last Admin: 05/19/18 08:21 Dose: 10 mls/hr Insulin Human Regular (Novolin R) 0 unit SC ACHS [facility]; Protocol Last Admin: 05/19/18 12:03 Dose: Not Given Isoniazid (Niazid) 300 mg PO DAILY [facility]; Protocol Last Admin: 05/18/18 10:38 Dose: 300 mg Lactic Acid (Lac-Hydrin 12% Lotion (225 G)) 0 gm EXT Q8 [facility] Last Admin: 05/19/18 05:48 Dose: 1 applic Levothyroxine Sodium (Levothyroxine) 200 mcg IVP Q24H [facility] Last Admin: 05/19/18 05:48 Dose: 200 mcg Multivitamins (Hexavitamin) 1 tab PO DAILY [facility] Last Admin: 05/19/18 11:48 Dose: Not Given Pantoprazole Sodium (Protonix Inj) 40 mg IVP Q12H [facility] Last Admin: 05/19/18 09:35 Dose: 40 mg Polyethylene Glycol (Miralax) 17 gm PO BID PRN PRN Reason: Constipation Pyridoxine HCl (Vitamin B6 50 Mg Tab) 50 mg PO DAILY [facility] Last Admin: 05/18/18 11:00 Dose: 50 mg Rifampin (Rifampin Cap) 600 mg PO DAILY [facility]; Protocol Last Admin: 05/18/18 11:00 Dose: 600 mg Tacrolimus (Prograf Cap) 4 mg PO BID [facility] Last Admin: 05/17/18 10:16 Dose: Not Given Thiamine HCl (Vitamin B1 Inj) 200 mg IV Q8H [facility] Last Admin: 05/19/18 09:35 Dose: 200 mg Verapamil HCl (Verapamil Inj) 2.5 mg IVP Q6H PRN PRN Reason: Heart rate Last Admin: 05/19/18 11:36 Dose: 2.5 mg Vitamin A (Vitamin A & D Oint Ud Foilpak) 0 ea TOP BID [facility] Last Admin: 05/19/18 09:36 Dose: 1 ea - Labs Labs: 05/19/18 06:09 05/19/18 12:07 PT 10.5 SECONDS (9.7-12.2) 05/19/18 06:09 INR 1.0 05/19/18 06:09 APTT 39 SECONDS (21-34) H 05/19/18 06:09 - Extremities Exam Additional comments: Left knee: slowly improving tissue. Still not granulating in. No knee effusion, warmth or redness. Calves soft NT neghomans Assessment and Plan (1) Surgical wound dehiscence Assessment & Plan: recommend plastics consult cont localized wound care no orthopedic intervention indicated d/w Dr. 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
[2018-05-19] MEDS ORDERED: Lidocaine Hydrochloride 10 ML INJ ONE (13:11)
[2018-05-19] MEDS ORDERED: HEPARIN-NS 5,000 UNITS/500 ML 5,000 UNIT/500 ML BAG IV ONE (13:11)
--- NOTE | 2018-05-19 13:17 | US ---
Date of service: 05/18/2018 HISTORY: RUQ pain COMPARISON: Comparison is made to the previous CT dated 05/10/2018 TECHNIQUE: Sonographic evaluation of the abdomen. FINDINGS: LIVER: Measures 15.05 cm. Heterogeneous increased echogenicity of the liver parenchyma. No mass. No intrahepatic bile duct dilatation. GALLBLADDER: Gallstones are seen. There is moderate gallbladder wall thickening measures up to 6 millimeter. COMMON BILE DUCT: Measures 4.5 mm. No stones. No dilatation. PANCREAS: The pancreas is obscured by overlying bowel gas. RIGHT KIDNEY: Measures 9.4 x 5.3 x 5.1cm. Normal echogenicity. No calculus, mass, or hydronephrosis. LEFT KIDNEY: The left kidney is not clearly visualized in this exam SPLEEN: Normal in size and contour. No mass. AORTA: No aneurysmal dilatation. IVC: Unremarkable. OTHER FINDINGS: Moderate amount of ascites noted. Incidentally noted are bilateral pleural effusions. IMPRESSION: Heterogeneous echogenic liver. The left kidney was not clearly visualized in this exam. Gallstones and diffuse gallbladder wall thickening which could be due to soft tissue edema and presence of ascites. The pancreas is not clearly visualized due to overlying bowel gas. Preliminary report contains concordant findings was submitted by [facility].
[2018-05-19] MEDS ORDERED: Propofol 10 mg/ml Inj (20 ML) ONE (13:21)
--- NOTE | 2018-05-19 13:51 | RAD ---
Date of service: 05/19/2018 HISTORY: shortness of breath COMPARISON: Comparison chest 05/17/2018 FINDINGS: LUNGS: Diffuse bilateral infiltrate changes with questionable underlying chronic interstitial disease/fibrosis. More confluent opacities in the right lung base with suspected right-sided effusion. Moderate chronic pleural thickening and adjacent fibrosis/retraction changes. Hazy opacity left lung base likely representing a combination of atelectasis/infiltrate and small to medium-sized effusion.. PLEURA: No significant pleural effusion identified, no pneumothorax apparent. CARDIOVASCULAR: Mild aortic atherosclerotic calcification present. Cardiomegaly. Underlying concomitant mild pulmonary vascular congestion not excluded. No change multi lead pacemaker/defibrillator OSSEOUS STRUCTURES: No significant abnormalities. VISUALIZED UPPER ABDOMEN: Normal. OTHER FINDINGS: None. IMPRESSION: Diffuse bilateral infiltrate changes with questionable underlying chronic interstitial disease/fibrosis. More confluent opacities in the right lung base with suspected right-sided effusion. Moderate chronic pleural thickening and adjacent fibrosis/retraction changes. Hazy opacity left lung base likely representing a combination of atelectasis/infiltrate and small to medium-sized effusion.. Underlying concomitant pulmonary venous congestion not excluded
[2018-05-19] MEDS ORDERED: Iohexol 240 (50 ml) ONE ×2 (14:03→14:20)
[2018-05-19] MEDS ORDERED: Iohexol 240 200 ML ONE (14:20)
--- NOTE | 2018-05-19 15:55 | RAD ---
Date of service: 05/19/2018 PROCEDURE: Intraoperative Fluoroscopy. HISTORY: RENAL FAILURE FINDINGS: Fluoroscopic assistance was provided. Fluoroscopy time = 203.3 sec. Radiation dose = 56.24 mGy Please refer to the operative report from [facility].
[2018-05-19] MEDS: diltiaZEM 180 mg/24 Hours CD Cap PO SCH ×2 (16:26→18:35)
--- NOTE | 2018-05-19 16:39 | RAD ---
Date of service: 05/19/2018 HISTORY: Attempted IJ cath placement COMPARISON: Comparison chest 05/19/2018 at 1253 hr FINDINGS: LUNGS: Redemonstrated are diffuse bilateral infiltrate changes with questionable underlying chronic interstitial disease/fibrosis. More confluent opacities in the right lung base with suspected right-sided effusion. New left upper lobe atelectasis moderate right apical chronic pleural thickening and adjacent fibrosis/retraction changes. Hazy opacity left lung base likely representing a combination of atelectasis/infiltrate and small to medium-sized effusion. PLEURA: As above. No pneumothorax apparent. CARDIOVASCULAR: No aortic atherosclerotic calcification present. Normal cardiac size. No pulmonary vascular congestion. OSSEOUS STRUCTURES: No significant abnormalities. VISUALIZED UPPER ABDOMEN: Normal. OTHER FINDINGS: None. IMPRESSION: Redemonstrated are diffuse bilateral infiltrate changes with questionable underlying chronic interstitial disease/fibrosis. More confluent opacities in the right lung base with suspected right-sided effusion. New left upper lobe atelectasis moderate right apical chronic pleural thickening and adjacent fibrosis/retraction changes. Hazy opacity left lung base likely representing a combination of atelectasis/infiltrate and small to medium-sized effusion. No evidence of pneumothorax.
--- NOTE | 2018-05-19 17:10 | PCM.SURG1 ---
Surgeon's Initial Post Op Note - Surgeon's Notes Surgeon: Dr. Herrera Vehicle Controls Engineer: Dr. Martinez Type of Anesthesia: IV Sedation Anesthesia Administered By: Dr. Rios Pre-Operative Diagnosis: ESRD Operative Findings: attempted R IJ/subclavian permacath Post-Operative Diagnosis: Same Operation Performed: Insertion of L Femoral permacath Specimen/Specimens Removed: none Estimated Blood Loss: EBL {In ML}: 25 Blood Products Given: N/A Drains Used: No Drains Post-Op Condition: Good Date of Surgery/Procedure: 05/19/18 Time of Surgery/Procedure: 17:10
--- NOTE | 2018-05-19 17:51 | CP.PCM.PN ---
Subjective - Date & Time of Evaluation Date of Evaluation: 05/19/18 Time of Evaluation: 06:00 - Subjective Subjective: recent cultures neg comfortable on BiPaP Objective - Vital Signs/Intake and Output Vital Signs (last 24 hours): Temp Pulse Resp BP Pulse Ox 98 F 96 H 12 129/54 L 100 05/19/18 12:00 05/19/18 16:44 05/19/18 16:07 05/19/18 16:07 05/19/18 16:07 Intake and Output: 05/19/18 05/19/18 06:59 18:59 Intake Total 320 470 Output Total 0 2000 Balance 320 -1530 - Medications Medications: Current Medications Albumin Human (Albumin Human 25% (12.5 Gm/50 Ml)) 37.5 gm IV DAILY PRN PRN Reason: PER HD IF SBP IS LESS THAN 90 Albumin Human (Albumin Human 25% (12.5 Gm/50 Ml)) 12.5 gm IV ONCE PRN PRN Reason: hypotension Last Admin: 05/19/18 10:06 Dose: 12.5 gm Albuterol/Ipratropium (Duoneb 3 Mg/0.5 Mg (3 Ml) Ud) 3 ml INH RQ4 [facility] Last Admin: 05/19/18 16:43 Dose: 3 ml Calcium Acetate (Phoslo) 1,334 mg PO TIDCC [facility] Last Admin: 05/19/18 16:25 Dose: 1,334 mg Collagenase (Santyl) 0 gm TOP DAILY [facility] Last Admin: 05/19/18 11:58 Dose: 1 oin Cyanocobalamin (Vitamin B12 1000 Mcg Tab) 1,000 mcg PO DAILY [facility] Last Admin: 05/19/18 16:24 Dose: 1,000 mcg Dextrose (Dextrose 50% Inj) 0 ml IV STAT PRN; Protocol PRN Reason: Hypoglycemia Protocol Last Admin: 05/16/18 21:23 Dose: 50 ml Dextrose (Glutose 15) 0 gm PO ONCE PRN; Protocol PRN Reason: Hypoglycemia Protocol Diltiazem HCl (Cardizem Cd) 180 mg PO DAILY [facility] Last Admin: 05/19/18 16:26 Dose: 180 mg Docusate Sodium (Colace) 100 mg PO BID PRN PRN Reason: Constipation Epoetin Jean Paul (Procrit) 10,000 unit IV [place] [facility] [place] Folic Acid (Folic Acid) 1 mg PO DAILY [facility] Last Admin: 05/19/18 11:48 Dose: Not Given Glucagon (Glucagen Diagnostic Kit) 0 mg IM STAT PRN; Protocol PRN Reason: Hypoglycemia Protocol Heparin Sodium (Porcine) (Heparin) 5,000 units SC Q12 [facility] Last Admin: 05/16/18 10:41 Dose: Not Given Hydrocortisone Sodium Succinate (Solu-Cortef) 100 mg IV Q8H [facility] Last Admin: 05/19/18 11:56 Dose: 100 mg Daptomycin 300 mg/ Sodium (Chloride) 100 mls @ 200 mls/hr IV Q48H [facility] Last Admin: 05/18/18 17:33 Dose: 200 mls/hr Micafungin Sodium 100 mg/ (Sodium Chloride) 100 mls @ 100 mls/hr IV Q24H [facility]; Protocol Last Admin: 05/18/18 20:07 Dose: 100 mls/hr Phenylephrine HCl 30 mg/ (Dextrose) 253 mls @ 20.24 mls/hr IV .[id number] PRN; Protocol PRN Reason: TITRATE PER MD ORDER Last Titration: 05/13/18 18:30 Dose: 0 mcg/min, 0 mls/hr Meropenem 500 mg/ Sodium (Chloride) 100 mls @ 100 mls/hr IVPB Q12H [facility]; Protocol Last Admin: 05/19/18 11:37 Dose: 100 mls/hr Dextrose (Dextrose 10% In Water) 500 mls @ 10 mls/hr IV .Q24H [facility] Last Admin: 05/19/18 08:21 Dose: 10 mls/hr Insulin Human Regular (Novolin R) 0 unit SC ACHS [facility]; Protocol Last Admin: 05/19/18 16:23 Dose: Not Given Isoniazid (Niazid) 300 mg PO DAILY [facility]; Protocol Last Admin: 05/19/18 15:40 Dose: 300 mg Lactic Acid (Lac-Hydrin 12% Lotion (225 G)) 0 gm EXT Q8 [facility] Last Admin: 05/19/18 15:42 Dose: 1 applic Levothyroxine Sodium (Levothyroxine) 200 mcg IVP Q24H [facility] Last Admin: 05/19/18 05:48 Dose: 200 mcg Multivitamins (Hexavitamin) 1 tab PO DAILY [facility] Last Admin: 05/19/18 15:41 Dose: 1 tab Pantoprazole Sodium (Protonix Inj) 40 mg IVP Q12H [facility] Last Admin: 05/19/18 09:35 Dose: 40 mg Polyethylene Glycol (Miralax) 17 gm PO BID PRN PRN Reason: Constipation Pyridoxine HCl (Vitamin B6 50 Mg Tab) 50 mg PO DAILY [facility] Last Admin: 05/19/18 16:24 Dose: 50 mg Rifampin (Rifampin Cap) 600 mg PO DAILY [facility]; Protocol Last Admin: 05/19/18 16:24 Dose: 600 mg Tacrolimus (Prograf Cap) 4 mg PO BID [facility] Last Admin: 05/17/18 10:16 Dose: Not Given Thiamine HCl (Vitamin B1 Inj) 200 mg IV Q8H [facility] Last Admin: 05/19/18 17:02 Dose: 200 mg Verapamil HCl (Verapamil Inj) 2.5 mg IVP Q6H PRN PRN Reason: Heart rate Last Admin: 05/19/18 11:36 Dose: 2.5 mg Vitamin A (Vitamin A & D Oint Ud Foilpak) 0 ea TOP BID [facility] Last Admin: 05/19/18 17:03 Dose: 1 ea - Labs Labs: 05/19/18 06:09 05/19/18 12:07 PT 10.5 SECONDS (9.7-12.2) 05/19/18 06:09 INR 1.0 05/19/18 06:09 APTT 39 SECONDS (21-34) H 05/19/18 06:09 - Constitutional Appears: Non-toxic, Chronically Ill - Head Exam Head Exam: NORMOCEPHALIC - Eye Exam Eye Exam: absent: Scleral icterus - ENT Exam ENT Exam: Mucous Membranes Dry - Neck Exam Neck Exam: absent: Lymphadenopathy - Respiratory Exam Respiratory Exam: Decreased Breath Sounds - Cardiovascular Exam Cardiovascular Exam: REGULAR RHYTHM - GI/Abdominal Exam GI & Abdominal Exam: Distended, Soft - Rectal Exam Rectal Exam: Deferred - Exam Exam: NORMAL INSPECTION - Extremities Exam Extremities Exam: Pedal Edema - Back Exam Back Exam: absent: CVA tenderness (L), CVA tenderness (R) Assessment and Plan (1) Acute confusion Status: Resolved (2) Exfoliative dermatitis Status: Resolved (3) Hypothermia Status: Resolved (4) Sepsis Status: Acute (5) Anemia Status: Acute (6) Bronchiectasis with acute exacerbation Status: Acute (7) CKD (chronic kidney disease) stage 3, GFR 30-59 ml/min Status: Acute (8) COPD bronchitis Status: Acute (9) Cardiomyopathy Status: Acute (10) Chronic atrial fibrillation Status: Acute (11) Chronic kidney disease, stage III (moderate) Status: Acute (12) DM type 2 (diabetes mellitus, type 2) Status: Acute (13) Gout Status: Acute (14) HTN (hypertension), benign Status: Acute (15) History of kidney transplant Status: Acute (16) Kidney transplant recipient Status: Acute (17) SIRS (systemic inflammatory response syndrome) Status: Acute (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
[2018-05-19] MEDS: Albumin Human 25% (12.5 gm/50 ml) IV SCH ×4 (18:50→20:25)
--- NOTE | 2018-05-19 18:53 | CP.PCM.PCO ---
Addendum Addendum: 05/19/18 18:50 Removed right femoral trialysis catheter at 18:22. Maintained firm pressure over site for a total of 20 minutes. Site was not bleeding at 18:42. Dressing was placed over site. Nurse was instructed to check the site every hour for at least 4 hours. During this time, the patient's systolic blood pressure was 70-80s. Suspect due to sedation/anesthesia earlier this afternoon. Patient was given albumin and restarted on Levophed.
[2018-05-19] MEDS: Phenylephrine 30 MG in Dextrose 5% In Water 250 ML IV PRN (19:30)
[2018-05-19] MEDS ORDERED: Absorbable Gelatin Sponge Size 12-7 ONE (19:38)
--- NOTE | 2018-05-19 20:01 | CP.PCM.PCO ---
Addendum Addendum: 05/19/18 19:46 Prefitter informed by nurse that R groin site was bleeding at 1900. Pressure was held for an additional 20 minutes. laboratory engineer techs were called. They placed Femostop on site at 25 mmHg and marked pulses. Nurse was instructed to check site for pulses and bleeding every 15 minutes.
[2018-05-19] MEDS: Micafungin 100 MG in Sodium Chloride 0.9% 100 ML IV SCH (20:52)
[2018-05-19 21:20] LABS: HEMOGLOBIN 7.7 g/dL (12.0-18.0); LYMPH # 0.7 K/uL (1.0-4.3); LYMPH % 2.5 % (20.0-40.0); MEAN CELL VOLUME 95.8 fL (80.0-94.0); MEAN CORPUSCULAR HEMOGLOBIN 29.6 pg (27.0-31.0); MEAN CORPUSCULAR HGB CONC 30.9 g/dL (33.0-37.0); MEAN PLATELET VOLUME 9.1 fL (7.2-11.7); MONO # 0.7 K/uL (0.0-0.8); MONO % 2.8 % (0.0-10.0); NEUT % 94.7 % (50.0-75.0); NRBC % 0.7 % (0.0-2.0); PLATELET COUNT 75 K/uL (130-400); RBC 2.61 Mil/uL (4.40-5.90); RED CELL DISTRIBUTION WIDTH 25.6 % (11.5-14.5); WHITE BLOOD COUNT 26.4 K/uL (4.8-10.8)
[2018-05-19 21:38] LABS: ALB/GLOB RATIO 1.9 (1.0-2.1); ALBUMIN 4.3 g/dL (3.5-5.0); ALT/SGPT 34 U/L (21-72); AST/SGOT 28 U/L (17-59); BLOOD UREA NITROGEN 18 mg/dL (9-20); CALCIUM 8.1 mg/dl (8.6-10.4); GFR NON-AFRICAN AMERICAN 46
[2018-05-19 21:44] LABS: CK-MB 0.51 ng/mL (0.0-3.38)
[2018-05-19 22:17] LABS: BANDS 12 % (0-2); LYMPHOCYTE 6 % (20-40); MONOCYTE 1 % (0-10); NEUTROPHIL 80 % (50-75); REACTIVE LYMPHOCYTES 1 % (0-0); TOTAL CELLS COUNTED 100
[2018-05-19 22:18] LABS: HYPOCHROMIC SLIGHT; LARGE PLATELETS PRESENT; MICROCYTOSIS SLIGHT; OVALOCYTES SLIGHT; PLATELET ESTIMATE DECREASED (NORMAL); SCHISTOCYTES SLIGHT
--- NOTE | 2018-05-19 23:21 | CP.PCM.PN ---
Subjective - Date & Time of Evaluation Date of Evaluation: 05/19/18 Time of Evaluation: 20:00 - Subjective Subjective: Patient is still dyspneic, on BIPAP and vasopressor. HaD HD today and a Permacath insertion. CXR still reveals severe CHF. Objective - Vital Signs/Intake and Output Vital Signs (last 24 hours): Temp Pulse Resp BP Pulse Ox 97.5 F L 114 H 26 H 102/33 L 95 05/19/18 20:00 05/19/18 22:48 05/19/18 22:48 05/19/18 22:48 05/19/18 22:48 Intake and Output: 05/19/18 05/20/18 18:59 06:59 Intake Total 530 7.5 Output Total 2000 Balance -1470 7.5 - Medications Medications: Current Medications Albumin Human (Albumin Human 25% (12.5 Gm/50 Ml)) 37.5 gm IV DAILY PRN PRN Reason: PER HD IF SBP IS LESS THAN 90 Albumin Human (Albumin Human 25% (12.5 Gm/50 Ml)) 12.5 gm IV ONCE PRN PRN Reason: hypotension Last Admin: 05/19/18 10:06 Dose: 12.5 gm Albuterol/Ipratropium (Duoneb 3 Mg/0.5 Mg (3 Ml) Ud) 3 ml INH RQ4 [facility] Last Admin: 05/19/18 20:30 Dose: 3 ml Apixaban (Eliquis) 2.5 mg PO BID [facility] Calcium Acetate (Phoslo) 1,334 mg PO TIDCC [facility] Last Admin: 05/19/18 18:35 Dose: Not Given Collagenase (Santyl) 0 gm TOP DAILY [facility] Last Admin: 05/19/18 11:58 Dose: 1 oin Cyanocobalamin (Vitamin B12 1000 Mcg Tab) 1,000 mcg PO DAILY [facility] Last Admin: 05/19/18 18:35 Dose: Not Given Dextrose (Dextrose 50% Inj) 0 ml IV STAT PRN; Protocol PRN Reason: Hypoglycemia Protocol Last Admin: 05/16/18 21:23 Dose: 50 ml Dextrose (Glutose 15) 0 gm PO ONCE PRN; Protocol PRN Reason: Hypoglycemia Protocol Diltiazem HCl (Cardizem Cd) 180 mg PO DAILY [facility] Last Admin: 05/19/18 18:35 Dose: Not Given Docusate Sodium (Colace) 100 mg PO BID PRN PRN Reason: Constipation Epoetin Jean Paul (Procrit) 10,000 unit IV MWF [facility] Folic Acid (Folic Acid) 1 mg PO DAILY [facility] Last Admin: 05/19/18 11:48 Dose: Not Given Glucagon (Glucagen Diagnostic Kit) 0 mg IM STAT PRN; Protocol PRN Reason: Hypoglycemia Protocol Heparin Sodium (Porcine) (Heparin) 5,000 units SC Q12 [facility] Last Admin: 05/16/18 10:41 Dose: Not Given Hydrocortisone Sodium Succinate (Solu-Cortef) 100 mg IV Q8H [facility] Last Admin: 05/19/18 18:08 Dose: 100 mg Daptomycin 300 mg/ Sodium (Chloride) 100 mls @ 200 mls/hr IV Q48H [facility] Last Admin: 05/18/18 17:33 Dose: 200 mls/hr Micafungin Sodium 100 mg/ (Sodium Chloride) 100 mls @ 100 mls/hr IV Q24H [facility]; Protocol Last Admin: 05/19/18 20:52 Dose: 100 mls/hr Meropenem 500 mg/ Sodium (Chloride) 100 mls @ 100 mls/hr IVPB Q12H [facility]; Protocol Last Admin: 05/19/18 11:37 Dose: 100 mls/hr Dextrose (Dextrose 10% In Water) 500 mls @ 10 mls/hr IV .Q24H [facility] Last Admin: 05/19/18 08:21 Dose: 10 mls/hr Phenylephrine HCl 30 mg/ (Dextrose) 253 mls @ 10.12 mls/hr IV .Q24H PRN; Protocol PRN Reason: TITRATE PER MD ORDER Last Titration: 05/19/18 20:00 Dose: 60 mcg/min, 30.36 mls/hr Insulin Human Regular (Novolin R) 0 unit SC ACHS [facility]; Protocol Last Admin: 05/19/18 16:23 Dose: Not Given Isoniazid (Niazid) 300 mg PO DAILY [facility]; Protocol Last Admin: 05/19/18 18:35 Dose: Not Given Lactic Acid (Lac-Hydrin 12% Lotion (225 G)) 0 gm EXT Q8 [facility] Last Admin: 05/19/18 15:42 Dose: 1 applic Levothyroxine Sodium (Levothyroxine) 200 mcg IVP Q24H [facility] Last Admin: 05/19/18 05:48 Dose: 200 mcg Multivitamins (Hexavitamin) 1 tab PO DAILY [facility] Last Admin: 05/19/18 15:41 Dose: 1 tab Pantoprazole Sodium (Protonix Inj) 40 mg IVP Q12H [facility] Last Admin: 05/19/18 21:04 Dose: 40 mg Polyethylene Glycol (Miralax) 17 gm PO BID PRN PRN Reason: Constipation Pyridoxine HCl (Vitamin B6 50 Mg Tab) 50 mg PO DAILY [facility] Last Admin: 05/19/18 18:35 Dose: Not Given Rifampin (Rifampin Cap) 600 mg PO DAILY [facility]; Protocol Last Admin: 05/19/18 18:35 Dose: Not Given Tacrolimus (Prograf Cap) 4 mg PO BID [facility] Last Admin: 05/17/18 10:16 Dose: Not Given Thiamine HCl (Vitamin B1 Inj) 200 mg IV Q8H [facility] Last Admin: 05/19/18 17:02 Dose: 200 mg Verapamil HCl (Verapamil Inj) 2.5 mg IVP Q6H PRN PRN Reason: Heart rate Last Admin: 05/19/18 11:36 Dose: 2.5 mg Vitamin A (Vitamin A & D Oint Ud Foilpak) 0 ea TOP BID [facility] Last Admin: 05/19/18 17:03 Dose: 1 ea - Labs Labs: 05/19/18 21:14 05/19/18 21:14 PT 10.5 SECONDS (9.7-12.2) 05/19/18 06:09 INR 1.0 05/19/18 06:09 APTT 39 SECONDS (21-34) H 05/19/18 06:09 - Constitutional Appears: In Acute Distress, Chronically Ill - Head Exam Head Exam: NORMAL INSPECTION - Eye Exam Eye Exam: Normal appearance - ENT Exam ENT Exam: Normal Exam - Neck Exam Neck Exam: Normal Inspection - Respiratory Exam Respiratory Exam: Rhonchi Additional comments: Rhonchi heard bilaterally. - Cardiovascular Exam Cardiovascular Exam: Irregular Rhythm, Murmur - GI/Abdominal Exam GI & Abdominal Exam: Soft, Normal Bowel Sounds - Rectal Exam Rectal Exam: Deferred - Extremities Exam Extremities Exam: Pedal Edema - Back Exam Back Exam: NORMAL INSPECTION - Neurological Exam Neurological Exam: Alert, Awake, Oriented x3 - Psychiatric Exam Psychiatric exam: Anxious - Skin Skin Exam: Dry, Intact, Warm Assessment and Plan (1) Hypothermia Status: Resolved (2) Hypoglycemia Status: Resolved (3) Hypotension Assessment & Plan: On Levophed today. Status: Acute (4) Acute confusion Status: Resolved (5) Exfoliative dermatitis Status: Resolved (6) Acute on chronic diastolic CHF (congestive heart failure) Status: Acute (7) YVAN (acute kidney injury) Assessment & Plan: Serum BUN and creatinine normal today. Patient oliguric. To continue HD as per Nephrologists. Status: Acute (8) Sepsis Assessment & Plan: IV antibiotics as per Dr Nash. Status: Acute
[2018-05-20] MEDS: Phenylephrine 30 MG in Dextrose 5% In Water 250 ML IV PRN ×3 (01:15→20:45)
[2018-05-20] MEDS: Thiamine 100 mg/ml Inj IV SCH ×3 (01:33→18:24)
--- NOTE | 2018-05-20 02:21 | OP ---
PROCEDURE DATE: 05/19/2018 PREOPERATIVE DIAGNOSIS: Renal failure. POSTOPERATIVE DIAGNOSIS: Renal failure. PROCEDURES: 1. Placement of arrow long Permcath via left femoral vein with C-arm fluoroscopy, ultrasound-guided puncture, and micropuncture technique. 2. Venogram superior vena cava. SURGEON: Silver Herrera Jr., MD MICROELECTRONICS TECHNICIAN: Dr. Martinez. ANESTHESIA ADMINISTERED BY: Dr. Rios. INDICATIONS: The patient is an elderly man, restarted on dialysis. 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 We then went into the subclavian vein on that side, both times using micropuncture technique and ultrasound, and we were able to puncture again the subclavian vein by taking venogram, we saw that both vessels were occluded, and they did not communicate with superior vena cava which was occluded by the pacemaker defibrillator coming from the other side. So, at this point we stopped. I did made no further attempts at placing the catheter through the neck. We then went to the left groin as patient had indwelling catheter on the right side. Using ultrasound technique, we punctured in longitudinal fashion, advanced the wire centrally and then deployed a long arrow sheath, draping it up to the groin up to the abdominal wall. This was flushed with heparinized saline with good return, it was secured to the skin. Blood loss during procedure was 50 mL. 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 Silver Herrera Jr., MD
[2018-05-20] MEDS: Albuterol-Ipratrop 3 mg / 0.5 (3 ml) UD INH SCH ×5 (03:11→20:36)
--- NOTE | 2018-05-20 03:46 | PN ---
DATE: 05/19/2018 ENDOCRINOLOGY FOLLOWUP NOTE LOCATION: ICU room 10. This is a 72-year-old male with recent acute exacerbation of underlying COPD and bronchiectasis, currently on a BiPAP device and also being followed closely for metabolic management. He had the recent PermCath insertion today as noted with underlying progressive renal insufficiency as noted. His glycemic levels are fluctuating but improved. The glucose values have ranged from 101 to 181 mg/dL. He has no repeat thyroid studies at this time. His chemistry showed a BUN of 11, sodium 138, potassium 4.3, chloride 97, CO2 of 30, glucose 113, and creatinine 0.9. So at this time, we will continue the levothyroxine given as 200 mcg IV push once daily as ordered. We will obtain serial thyroid studies tomorrow and titrate his dose regimen accordingly. We will also repeat the chemistries and supplement accordingly as needed. We will follow. Isamar Shane MD
[2018-05-20] MEDS: Ammonium Lactate 12% Lotion (225 g) EXT SCH ×3 (05:23→22:40)
[2018-05-20 06:14] LABS: HEMOGLOBIN 8.2 g/dL (12.0-18.0); LYMPH # 0.3 K/uL (1.0-4.3); LYMPH % 0.8 % (20.0-40.0); MEAN CELL VOLUME 96.6 fL (80.0-94.0); MEAN CORPUSCULAR HEMOGLOBIN 29.8 pg (27.0-31.0); MEAN CORPUSCULAR HGB CONC 30.8 g/dL (33.0-37.0); MEAN PLATELET VOLUME 9.6 fL (7.2-11.7); MONO # 1.1 K/uL (0.0-0.8); MONO % 3.4 % (0.0-10.0); NEUT # 32.2 K/uL (1.8-7.0); NEUT % 95.8 % (50.0-75.0); NRBC % 1.4 % (0.0-2.0); PLATELET COUNT 89 K/uL (130-400); RBC 2.74 Mil/uL (4.40-5.90); RED CELL DISTRIBUTION WIDTH 26.3 % (11.5-14.5); WHITE BLOOD COUNT 33.6 K/uL (4.8-10.8)
[2018-05-20 06:15] LABS: INR 1.1; PROTHROMBIN TIME 11.7 SECONDS (9.7-12.2)
[2018-05-20 06:29] LABS: ALB/GLOB RATIO 1.9 (1.0-2.1); ALBUMIN 4.2 g/dL (3.5-5.0); CALCIUM 7.7 mg/dl (8.6-10.4)
[2018-05-20 06:41] LABS: T4 1.81 ug/dL (5.5-11.0)
[2018-05-20 09:14] LABS: BANDS 9 % (0-2); LYMPHOCYTE 1 % (20-40); METAMYELOCYTE 1 % (0-0); MONOCYTE 2 % (0-10); NEUTROPHIL 87 % (50-75); NUCLEATED RED BLOOD CELL 2 % (0-0); TOTAL CELLS COUNTED 100
[2018-05-20 09:15] LABS: ANISOCYTOSIS MARKED; PLATELET ESTIMATE DECREASED (NORMAL); POIKILOCYTOSIS MODERATE; POLYCHROMIC SLIGHT
[2018-05-20 09:16] LABS: BURR CELLS SLIGHT; GIANT PLATELETS PRESENT; HYPOCHROMIC MODERATE; LARGE PLATELETS PRESENT; OVALOCYTES SLIGHT; SCHISTOCYTES SLIGHT; TOXIC GRANULATION PRESENT
[2018-05-20] MEDS: Multiple Vitamins Tab PO SCH (09:20)
[2018-05-20] MEDS: diltiaZEM 180 mg/24 Hours CD Cap PO SCH (09:20)
[2018-05-20] MEDS: (Novolin R) Insulin Human Regular 100 units/ml vial SC SCH ×4 (09:21→22:42)
--- NOTE | 2018-05-20 09:38 | CP.PCM.PN ---
Subjective - Date & Time of Evaluation Date of Evaluation: 05/20/18 Time of Evaluation: 09:35 - Subjective Subjective: pt seen and examined on BIPAP lethargic non verbal on phenylephrine ROS- unable to obtain due to clinical condition Objective - Vital Signs/Intake and Output Vital Signs (last 24 hours): Temp Pulse Resp BP Pulse Ox 97.5 F L 84 22 106/37 L 98 05/20/18 08:00 05/20/18 08:30 05/20/18 08:30 05/20/18 08:30 05/20/18 08:30 Intake and Output: 05/20/18 05/20/18 06:59 18:59 Intake Total 1406.0 150 Output Total 0 Balance 1406.0 150 - Medications Medications: Current Medications Albumin Human (Albumin Human 25% (12.5 Gm/50 Ml)) 37.5 gm IV DAILY PRN PRN Reason: PER HD IF SBP IS LESS THAN 90 Albumin Human (Albumin Human 25% (12.5 Gm/50 Ml)) 12.5 gm IV ONCE PRN PRN Reason: hypotension Last Admin: 05/19/18 10:06 Dose: 12.5 gm Albuterol/Ipratropium (Duoneb 3 Mg/0.5 Mg (3 Ml) Ud) 3 ml INH RQ4 [facility] Last Admin: 05/20/18 08:28 Dose: 3 ml Apixaban (Eliquis) 2.5 mg PO BID [facility] Last Admin: 05/20/18 09:20 Dose: Not Given Calcium Acetate (Phoslo) 1,334 mg PO TIDCC [facility] Last Admin: 05/20/18 08:10 Dose: Not Given Collagenase (Santyl) 0 gm TOP DAILY [facility] Last Admin: 05/19/18 11:58 Dose: 1 oin Cyanocobalamin (Vitamin B12 1000 Mcg Tab) 1,000 mcg PO DAILY [facility] Last Admin: 05/20/18 09:21 Dose: Not Given Dextrose (Dextrose 50% Inj) 0 ml IV STAT PRN; Protocol PRN Reason: Hypoglycemia Protocol Last Admin: 05/16/18 21:23 Dose: 50 ml Dextrose (Glutose 15) 0 gm PO ONCE PRN; Protocol PRN Reason: Hypoglycemia Protocol Diltiazem HCl (Cardizem Cd) 180 mg PO DAILY [facility] Last Admin: 05/20/18 09:20 Dose: Not Given Docusate Sodium (Colace) 100 mg PO BID PRN PRN Reason: Constipation Epoetin Jean Paul (Procrit) 10,000 unit IV MWF [facility] Folic Acid (Folic Acid) 1 mg PO DAILY [facility] Last Admin: 05/19/18 11:48 Dose: Not Given Glucagon (Glucagen Diagnostic Kit) 0 mg IM STAT PRN; Protocol PRN Reason: Hypoglycemia Protocol Heparin Sodium (Porcine) (Heparin) 5,000 units SC Q12 [facility] Last Admin: 05/16/18 10:41 Dose: Not Given Hydrocortisone Sodium Succinate (Solu-Cortef) 100 mg IV Q8H [facility] Last Admin: 05/20/18 01:57 Dose: 100 mg Daptomycin 300 mg/ Sodium (Chloride) 100 mls @ 200 mls/hr IV Q48H [facility] Last Admin: 05/18/18 17:33 Dose: 200 mls/hr Micafungin Sodium 100 mg/ (Sodium Chloride) 100 mls @ 100 mls/hr IV Q24H [facility]; Protocol Last Admin: 05/19/18 20:52 Dose: 100 mls/hr Meropenem 500 mg/ Sodium (Chloride) 100 mls @ 100 mls/hr IVPB Q12H [facility]; Pr otocol Last Admin: 05/19/18 23:13 Dose: 100 mls/hr Phenylephrine HCl 30 mg/ (Dextrose) 253 mls @ 10.12 mls/hr IV .Q24H PRN; Protocol PRN Reason: TITRATE PER MD ORDER Last Titration: 05/20/18 07:00 Dose: 40 mcg/min, 20.24 mls/hr Insulin Human Regular (Novolin R) 0 unit SC ACHS [facility]; Protocol Last Admin: 05/20/18 09:21 Dose: Not Given Isoniazid (Niazid) 300 mg PO DAILY [facility]; Protocol Last Admin: 05/20/18 09:20 Dose: Not Given Lactic Acid (Lac-Hydrin 12% Lotion (225 G)) 0 gm EXT Q8 [facility] Last Admin: 05/20/18 05:23 Dose: 1 applic Levothyroxine Sodium (Levothyroxine) 200 mcg IVP Q24H [facility] Multivitamins (Hexavitamin) 1 tab PO DAILY [facility] Last Admin: 05/20/18 09:20 Dose: Not Given Pantoprazole Sodium (Protonix Inj) 40 mg IVP Q12H [facility] Last Admin: 05/19/18 21:04 Dose: 40 mg Polyethylene Glycol (Miralax) 17 gm PO BID PRN PRN Reason: Constipation Pyridoxine HCl (Vitamin B6 50 Mg Tab) 50 mg PO DAILY [facility] Last Admin: 05/20/18 09:21 Dose: Not Given Rifampin (Rifampin Cap) 600 mg PO DAILY [facility]; Protocol Last Admin: 05/20/18 09:21 Dose: Not Given Tacrolimus (Prograf Cap) 4 mg PO BID [facility] Last Admin: 05/17/18 10:16 Dose: Not Given Thiamine HCl (Vitamin B1 Inj) 200 mg IV Q8H [facility] Last Admin: 05/20/18 09:21 Dose: Not Given Verapamil HCl (Verapamil Inj) 2.5 mg IVP Q6H PRN PRN Reason: Heart rate Last Admin: 05/19/18 11:36 Dose: 2.5 mg Vitamin A (Vitamin A & D Oint Ud Foilpak) 0 ea TOP BID [facility] Last Admin: 05/19/18 17:03 Dose: 1 ea - Labs Labs: 05/20/18 05:59 05/20/18 05:59 PT 11.7 SECONDS (9.7-12.2) 05/20/18 05:59 INR 1.1 05/20/18 05:59 APTT 39 SECONDS (21-34) H 05/20/18 05:59 - Constitutional Appears: Older Than Stated Age, Chronically Ill - Head Exam Head Exam: ATRAUMATIC, NORMOCEPHALIC - Eye Exam Eye Exam: Normal appearance - ENT Exam ENT Exam: Mucous Membranes Dry - Neck Exam Neck Exam: Normal Inspection - Respiratory Exam Respiratory Exam: Rhonchi. absent: Wheezes - Cardiovascular Exam Cardiovascular Exam: REGULAR RHYTHM, +S1, +S2 - GI/Abdominal Exam GI & Abdominal Exam: Soft. absent: Tenderness - Extremities Exam Extremities Exam: Pedal Edema. 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
--- NOTE | 2018-05-20 09:56 | CP.PCM.PN ---
Subjective - Date & Time of Evaluation Date of Evaluation: 05/20/18 Time of Evaluation: 08:00 - Subjective Subjective: Vascular Surgery: Dr. Herrera Pt seen and examined. Overnight pt with episodes of hypotension; started on phenylephrine. Pt is s/p L femoral permacath placement; POD#1. Continues to be at his baseline with minimal response to commands. No fevers recorded overnight. Objective - Vital Signs/Intake and Output Vital Signs (last 24 hours): Temp Pulse Resp BP Pulse Ox 97.5 F L 84 22 106/37 L 98 05/20/18 08:00 05/20/18 08:30 05/20/18 08:30 05/20/18 08:30 05/20/18 08:30 Intake and Output: 05/20/18 05/20/18 06:59 18:59 Intake Total 1406.0 150 Output Total 0 Balance 1406.0 150 - Medications Medications: Current Medications Albumin Human (Albumin Human 25% (12.5 Gm/50 Ml)) 37.5 gm IV DAILY PRN PRN Reason: PER HD IF SBP IS LESS THAN 90 Albumin Human (Albumin Human 25% (12.5 Gm/50 Ml)) 12.5 gm IV ONCE PRN PRN Reason: hypotension Last Admin: 05/19/18 10:06 Dose: 12.5 gm Albuterol/Ipratropium (Duoneb 3 Mg/0.5 Mg (3 Ml) Ud) 3 ml INH RQ4 [facility] Last Admin: 05/20/18 08:28 Dose: 3 ml Apixaban (Eliquis) 2.5 mg PO BID [facility] Last Admin: 05/20/18 09:20 Dose: Not Given Calcium Acetate (Phoslo) 1,334 mg PO TIDCC [facility] Last Admin: 05/20/18 08:10 Dose: Not Given Collagenase (Santyl) 0 gm TOP DAILY [facility] Last Admin: 05/19/18 11:58 Dose: 1 oin Cyanocobalamin (Vitamin B12 1000 Mcg Tab) 1,000 mcg PO DAILY [facility] Last Admin: 05/20/18 09:21 Dose: Not Given Dextrose (Dextrose 50% Inj) 0 ml IV STAT PRN; Protocol PRN Reason: Hypoglycemia Protocol Last Admin: 05/16/18 21:23 Dose: 50 ml Dextrose (Glutose 15) 0 gm PO ONCE PRN; Protocol PRN Reason: Hypoglycemia Protocol Diltiazem HCl (Cardizem Cd) 180 mg PO DAILY [facility] Last Admin: 05/20/18 09:20 Dose: Not Given Docusate Sodium (Colace) 100 mg PO BID PRN PRN Reason: Constipation Epoetin Jean Paul (Procrit) 10,000 unit IV MWF [facility] Folic Acid (Folic Acid) 1 mg PO DAILY [facility] Last Admin: 05/19/18 11:48 Dose: Not Given Glucagon (Glucagen Diagnostic Kit) 0 mg IM STAT PRN; Protocol PRN Reason: Hypoglycemia Protocol Heparin Sodium (Porcine) (Heparin) 5,000 units SC Q12 [facility] Last Admin: 05/16/18 10:41 Dose: Not Given Hydrocortisone Sodium Succinate (Solu-Cortef) 100 mg IV Q8H [facility] Last Admin: 05/20/18 01:57 Dose: 100 mg Daptomycin 300 mg/ Sodium (Chloride) 100 mls @ 200 mls/hr IV Q48H [facility] Last Admin: 05/18/18 17:33 Dose: 200 mls/hr Micafungin Sodium 100 mg/ (Sodium Chloride) 100 mls @ 100 mls/hr IV Q24H [facility]; Protocol Last Admin: 05/19/18 20:52 Dose: 100 mls/hr Meropenem 500 mg/ Sodium (Chloride) 100 mls @ 100 mls/hr IVPB Q12H [facility]; Protocol Last Admin: 05/19/18 23:13 Dose: 100 mls/hr Phenylephrine HCl 30 mg/ (Dextrose) 253 mls @ 10.12 mls/hr IV .Q24H PRN; Protocol PRN Reason: TITRATE PER MD ORDER Last Titration: 05/20/18 07:00 Dose: 40 mcg/min, 20.24 mls/hr Insulin Human Regular (Novolin R) 0 unit SC ACHS [facility]; Protocol Last Admin: 05/20/18 09:21 Dose: Not Given Isoniazid (Niazid) 300 mg PO DAILY [facility]; Protocol Last Admin: 05/20/18 09:20 Dose: Not Given Lactic Acid (Lac-Hydrin 12% Lotion (225 G)) 0 gm EXT Q8 [facility] Last Admin: 05/20/18 05:23 Dose: 1 applic Levothyroxine Sodium (Levothyroxine) 200 mcg IVP Q24H [facility] Multivitamins (Hexavitamin) 1 tab PO DAILY [facility] Last Admin: 05/20/18 09:20 Dose: Not Given Pantoprazole Sodium (Protonix Inj) 40 mg IVP Q12H [facility] Last Admin: 05/19/18 21:04 Dose: 40 mg Polyethylene Glycol (Miralax) 17 gm PO BID PRN PRN Reason: Constipation Pyridoxine HCl (Vitamin B6 50 Mg Tab) 50 mg PO DAILY [facility] Last Admin: 05/20/18 09:21 Dose: Not Given Rifampin (Rifampin Cap) 600 mg PO DAILY [facility]; Protocol Last Admin: 05/20/18 09:21 Dose: Not Given Tacrolimus (Prograf Cap) 4 mg PO BID [facility] Last Admin: 05/17/18 10:16 Dose: Not Given Thiamine HCl (Vitamin B1 Inj) 200 mg IV Q8H [facility] Last Admin: 05/20/18 09:21 Dose: Not Given Verapamil HCl (Verapamil Inj) 2.5 mg IVP Q6H PRN PRN Reason: Heart rate Last Admin: 05/19/18 11:36 Dose: 2.5 mg Vitamin A (Vitamin A & D Oint Ud Foilpak) 0 ea TOP BID [facility] Last Admin: 05/19/18 17:03 Dose: 1 ea - Labs Labs: 05/20/18 05:59 05/20/18 05:59 PT 11.7 SECONDS (9.7-12.2) 05/20/18 05:59 INR 1.1 05/20/18 05:59 APTT 39 SECONDS (21-34) H 05/20/18 05:59 - Constitutional Appears: No Acute Distress - Head Exam Head Exam: ATRAUMATIC, NORMOCEPHALIC - Neck Exam Additional comments: R neck dressing clean/dry - Cardiovascular Exam Cardiovascular Exam: RRR - GI/Abdominal Exam GI & Abdominal Exam: Soft - Extremities Exam Additional comments: b/l groin dressings clean/dry. Left femoral permacath in place with dressing - Neurological Exam Neurological Exam: Awake - Skin Skin Exam: Dry, Warm Assessment and Plan - Assessment and Plan (Free Text) Assessment: 72M s/p Left femoral permacath placement; POD#1 Plan: - ok to use permacath for HD - no further surgical intervention at this time - d/w Dr. Sharon Martinez
[2018-05-20] MEDS ORDERED: Levothyroxine 200 mcg (0.2 mg) Inj IVP SCH (10:00)
--- NOTE | 2018-05-20 10:00 | CP.CCUPN ---
CCU Subjective - Physician Review Events Since Last Encounter (Free Text): 05/20/18 09:59 Patient is a 72-year-old male with a renal transplant. Patient admitted to the hospital with the hypothermia, hypotension and sepsis. Patient renal function got deteriorated. Started on hemodialysis, but unable to tolerate. Patient also had a history of tuberculosis, currently he is not able to eat or take any medications by mouth. Patient is extremely lethargic a He is also on BiPAP. Agonal breathing noted. The patient's family at bedside. We'll speak to them regarding the overall prognosis, and the possible hospice treatment. Patient is currently DNR/DNI. In my opinion patient is at high risk for mortality. Overall prognosis very poor Supportive treatment likely. Will discuss with the family CCU Objective - Vital Signs / Intake & Output Vital Signs (Last 4 hours): Vital Signs Temp Pulse Resp BP Pulse Ox 05/20/18 08:30 84 22 106/37 L 98 05/20/18 08:29 90 05/20/18 08:01 85 19 99/42 L 94 L 05/20/18 08:00 97.5 F L 94 H 19 92 L 05/20/18 07:31 92 H 18 112/33 L 94 L 05/20/18 07:30 94 H 17 96 05/20/18 07:00 109 H 23 111/62 83 L 05/20/18 06:30 100 H 22 111/89 97 05/20/18 06:00 99 H 24 109/28 L Intake and Output (Last 8hrs): Intake & Output 05/19/18 05/20/18 05/20/18 22:59 06:59 14:59 Intake Total 495.0 1001.0 150 Output Total 0 0 Balance 495.0 1001.0 150 Weight 114 lb 11.2 oz Intake: IV 57.5 448.5 15 Intake, IV Amount 437.5 552.5 135 RA midline 215 170 30 RA midline "Y" 132.5 382.5 105 Right 40 Right Femoral Side-Port 50 Oral 0 0 Output: Urine 0 0 Urine, Voided 0 0 Other: # Voids Urine, Voided 0 # Bowel Movements 0 - Physical Exam Head: Positive for: Atraumatic, Normocephalic Pupils: Positive for: PERRL Extroacular Muscles: Positive for: EOMI Conjunctiva: Positive for: Normal Mouth: Positive for: Dry Pharnyx: Negative for: ERYTHEMA Respiratory/Chest: Positive for: Other (BiPAP). Negative for: Respiratory Distress, Accessory Muscle Use Cardiovascular: Positive for: Normal S1, S2, Irregular Rhythm (Afib RVR), Tachycardic, Other (trialysis cath in R femoral). Negative for: Murmurs Abdomen: Positive for: Normal Bowel Sounds. Negative for: Tenderness, Distention, Peritoneal Signs Upper Extremity: Positive for: Swelling, Erythema, Neurovascularly Intact, Other (b/l skin sloughing) Lower Extremity: Positive for: Erythema, Neurovascularly Intact Neurological: Positive for: GCS=15, CN II-XII Intact Psychiatric: Positive for: Alert, Oriented x 3. Negative for: Agitated - Medications Active Medications: Active Medications Generic Name Dose Route Start Last Admin Trade Name Freq PRN Reason Stop Dose Admin Albumin Human 37.5 gm 05/12/18 16:00 Albumin Human 25% (12.5 Gm/50 Ml) IV DAILY PRN PER HD IF SBP IS LESS THAN 90 Albumin Human 12.5 gm 05/16/18 11:47 05/19/18 10:06 Albumin Human 25% (12.5 Gm/50 Ml) IV 12.5 gm ONCE PRN Administration hypotension Albuterol/Ipratropium 3 ml 05/12/18 19:00 05/20/18 08:28 Duoneb 3 Mg/0.5 Mg (3 Ml) Ud INH 3 ml RQ4 FAHEEM Administration Apixaban 2.5 mg 05/20/18 10:00 05/20/18 09:20 Eliquis PO Not Given BID FHAEEM Calcium Acetate 1,334 mg 05/12/18 13:21 05/20/18 08:10 Phoslo PO Not Given TIDCC FAHEEM Collagenase 0 gm 05/11/18 11:00 05/19/18 11:58 Santyl TOP 1 oin DAILY FAHEEM Administration Cyanocobalamin 1,000 mcg 05/12/18 10:00 05/20/18 09:21 Vitamin B12 1000 Mcg Tab PO Not Given DAILY FAHEEM Dextrose 0 ml 05/08/18 17:53 05/16/18 21:23 Dextrose 50% Inj IV 50 ml STAT PRN Administration Hypoglycemia Protocol Protocol Dextrose 0 gm 05/08/18 17:53 Glutose 15 PO ONCE PRN Hypoglycemia Protocol Protocol Diltiazem HCl 180 mg 05/14/18 10:00 05/20/18 09:20 Cardizem Cd PO Not Given DAILY [facility] Docusate Sodium 100 mg 05/18/18 14:59 Colace PO BID PRN Constipation Epoetin Jean Paul 10,000 unit 05/22/18 09:00 Procrit IV MWF FAHEEM Folic Acid 1 mg 05/09/18 10:00 05/19/18 11:48 Folic Acid PO Not Given DAILY FAHEEM Glucagon 0 mg 05/08/18 17:53 Glucagen Diagnostic Kit IM STAT PRN Hypoglycemia Protocol Protocol Heparin Sodium (Porcine) 5,000 units 05/14/18 11:00 05/16/18 10:41 Heparin SC Not Given Q12 FAHEEM Hydrocortisone Sodium Succinate 100 mg 05/16/18 10:45 05/20/18 01:57 Solu-Cortef IV 100 mg Q8H FAHEEM Administration Daptomycin 300 mg/ Sodium 100 mls @ 200 mls/hr 05/10/18 18:30 05/18/18 17:33 Chloride IV 200 mls/hr Q48H FAHEEM Administration Micafungin Sodium 100 mg/ 100 mls @ 100 mls/hr 05/10/18 20:00 05/19/18 20:52 Sodium Chloride IV 100 mls/hr Q24H FAHEEM Administration Protocol Meropenem 500 mg/ Sodium 100 mls @ 100 mls/hr 05/14/18 23:00 05/19/18 23:13 Chloride IVPB 100 mls/hr Q12H FAHEEM Administration Protocol Phenylephrine HCl 30 mg/ 253 mls @ 10.12 mls/hr 05/19/18 18:45 05/20/18 07:00 Dextrose IV 40 mcg/min .Q24H PRN 20.24 mls/hr TITRATE PER MD ORDER Titration Protocol 20 MCG/MIN Insulin Human Regular 0 unit 05/16/18 16:50 05/20/18 09:21 Novolin R SC Not Given ACHS FAHEEM Protocol Isoniazid 300 mg 05/15/18 12:00 05/20/18 09:20 Niazid PO Not Given DAILY FAHEEM Protocol Lactic Acid 0 gm 05/12/18 07:00 05/20/18 05:23 Lac-Hydrin 12% Lotion (225 G) EXT 1 applic Q8 FAHEEM Administration Levothyroxine Sodium 200 mcg 05/20/18 10:00 Levothyroxine IVP Q24H [facility] Multivitamins 1 tab 05/15/18 13:00 05/20/18 09:20 Hexavitamin PO Not Given DAILY [facility] Pantoprazole Sodium 40 mg 05/12/18 21:00 05/19/18 21:04 Protonix Inj IVP 40 mg Q12H FAHEEM Administration Polyethylene Glycol 17 gm 05/18/18 12:14 Miralax PO BID PRN Constipation Pyridoxine HCl 50 mg 05/09/18 10:00 05/20/18 09:21 Vitamin B6 50 Mg Tab PO Not Given DAILY [facility] Rifampin 600 mg 05/15/18 12:00 05/20/18 09:21 Rifampin Cap PO Not Given DAILY [facility] Protocol Tacrolimus 4 mg 05/15/18 11:35 05/17/18 10:16 Prograf Cap PO Not Given BID [facility] Thiamine HCl 200 mg 05/11/18 09:45 05/20/18 09:21 Vitamin B1 Inj IV Not Given Q8H [facility] Verapamil HCl 2.5 mg 05/13/18 16:52 05/19/18 11:36 Verapamil Inj IVP 2.5 mg Q6H PRN Administration Heart rate Vitamin A 0 ea 05/11/18 18:00 05/19/18 17:03 Vitamin A & D Oint Ud Foilpak TOP 1 ea BID FAHEEM Administration - Patient Studies Lab Studies: Microbiology Studies 05/17/18 09:30 Blood Culture - Preliminary Blood NO GROWTH AFTER 48 HOURS 05/17/18 09:00 Blood Culture - Preliminary Blood NO GROWTH AFTER 48 HOURS Lab Studies 05/20/18 05/20/18 05/20/18 Range/Units 05:59 05:59 05:59 WBC (4.8-10.8) K/uL RBC (4.40-5.90) Mil/uL Hgb (12.0-18.0) g/dL Hct (35.0-51.0) % MCV (80.0-94.0) fL MCH (27.0-31.0) pg MCHC (33.0-37.0) g/dL RDW (11.5-14.5) % Plt Count (130-400) K/uL MPV (7.2-11.7) fL Neut % (Auto) (50.0-75.0) % Lymph % (Auto) (20.0-40.0) % [place] % (Auto) (0.0-10.0) % Eos % (Auto) (0.0-4.0) % Baso % (Auto) (0.0-2.0) % Neut # (Auto) (1.8-7.0) K/uL Lymph # (Auto) (1.0-4.3) K/uL [place] # (Auto) (0.0-0.8) K/uL Eos # (Auto) (0.0-0.7) K/uL Baso # (Auto) (0.0-0.2) K/uL Neutrophils % (Manual) (50-75) % Band Neutrophils % (0-2) % Lymphocytes % (Manual) (20-40) % Reactive Lymphs % (0-0) % Monocytes % (Manual) (0-10) % Metamyelocytes % (0-0) % Nucleated RBC % (0-0) % Toxic Granulation Platelet Estimate (NORMAL) Large Platelets Giant Platelets Polychromasia Hypochromasia (manual) Poikilocytosis (manual Basophilic Stippling Anisocytosis (manual) Microcytosis (manual) Macrocytosis (manual) Ovalocytes [place] Cells Schistocytes PT 11.7 (9.7-12.2) SECONDS INR 1.1 APTT 39 H (21-34) SECONDS Puncture Site pCO2 (35-45) mm/Hg pO2 (80-100) mm/Hg HCO3 (21-28) mmol/L ABG pH (7.35-7.45) ABG Total CO2 (22-28) mmol/L ABG O2 Saturation (95-98) % ABG Base Excess (-2.0-3.0) mmol/L Nehemiah Test ABG Potassium (3.6-5.2) mmol/L A-a O2 Difference mm/Hg Respiratory Index Sodium (132-148) mmol/l Chloride (98-107) mmol/L Glucose (75-110) mg/dl Lactate (0.7-2.1) mmol/L Vent Mode FiO2 % Inspiratory BiPAP Expiratory BiPAP Potassium (3.6-5.2) mmol/L Carbon Dioxide (22-30) mmol/L Anion Gap (10-20) BUN (9-20) mg/dL Creatinine (0.8-1.5) mg/dL Est GFR ( Amer) Est GFR (Non-Af Amer) POC Glucose (mg/dL) (65-110) mg/dL Random Glucose (75-110) mg/dL Calcium (8.6-10.4) mg/dl Phosphorus 3.5 (2.5-4.5) mg/dL Magnesium 1.8 (1.6-2.3) mg/dL % Saturation (20-55) Ferritin ng/mL Total Bilirubin (0.2-1.3) mg/dL AST (17-59) U/L ALT (21-72) U/L Alkaline Phosphatase (38-126) U/L Total Creatine Kinase (55-170) U/L CK-MB (Mass) (0.0-3.38) ng/mL Troponin I (0.00-0.120) ng/mL Total Protein (6.3-8.3) g/dL Albumin (3.5-5.0) g/dL Globulin (2.2-3.9) gm/dL Albumin/Globulin Ratio (1.0-2.1) Free T4 0.69 L (0.78-2.19) ng/dL Thyroxine (T4) 1.81 L (5.5-11.0) ug/dL TSH 3rd Generation 1.97 (0.46-4.68) mIU/L Arterial Blood Potassium (3.6-5.2) mmol/L Tacrolimus (LC/MS/MS) (5.0-20.0) mcg/L Heparin-induced Plt Ab (Negative) 05/20/18 05/20/18 05/19/18 Range/Units 05:59 05:59 21:14 WBC 33.6 H (4.8-10.8) K/uL RBC 2.74 L (4.40-5.90) Mil/uL Hgb 8.2 L (12.0-18.0) g/dL Hct 26.5 L (35.0-51.0) % MCV 96.6 H (80.0-94.0) fL MCH 29.8 (27.0-31.0) pg MCHC 30.8 L (33.0-37.0) g/dL RDW 26.3 H (11.5-14.5) % Plt Count 89 L (130-400) K/uL MPV 9.6 (7.2-11.7) fL Neut % (Auto) 95.8 H (50.0-75.0) % Lymph % (Auto) 0.8 L (20.0-40.0) % [place] % (Auto) 3.4 (0.0-10.0) % Eos % (Auto) 0.0 (0.0-4.0) % Baso % (Auto) 0.0 (0.0-2.0) % Neut # (Auto) 32.2 H (1.8-7.0) K/uL Lymph # (Auto) 0.3 L (1.0-4.3) K/uL [place] # (Auto) 1.1 H (0.0-0.8) K/uL Eos # (Auto) 0.0 (0.0-0.7) K/uL Baso # (Auto) 0.0 (0.0-0.2) K/uL Neutrophils % (Manual) 87 H (50-75) % Band Neutrophils % 9 H (0-2) % Lymphocytes % (Manual) 1 L (20-40) % Reactive Lymphs % (0-0) % Monocytes % (Manual) 2 (0-10) % Metamyelocytes % 1 H (0-0) % Nucleated RBC % 2 H (0-0) % Toxic Granulation Present Platelet Estimate Decreased L (NORMAL) Large Platelets Present Giant Platelets Present Polychromasia Slight Hypochromasia (manual) Moderate Poikilocytosis (manual Moderate Basophilic Stippling Slight Anisocytosis (manual) Marked Microcytosis (manual) Macrocytosis (manual) Slight Ovalocytes Slight David Cells Slight Schistocytes Slight PT (9.7-12.2) SECONDS INR APTT (21-34) SECONDS Puncture Site pCO2 (35-45) mm/Hg pO2 (80-100) mm/Hg HCO3 (21-28) mmol/L ABG pH (7.35-7.45) ABG Total CO2 (22-28) mmol/L ABG O2 Saturation (95-98) % ABG Base Excess (-2.0-3.0) mmol/L Nehemiah Test ABG Potassium (3.6-5.2) mmol/L A-a O2 Difference mm/Hg Respiratory Index Sodium 141 142 (132-148) mmol/l Chloride 101 99 (98-107) mmol/L Glucose (75-110) mg/dl Lactate (0.7-2.1) mmol/L Vent Mode FiO2 % Inspiratory BiPAP Expiratory BiPAP Potassium 4.2 4.1 (3.6-5.2) mmol/L Carbon Dioxide 28 30 (22-30) mmol/L Anion Gap 16 17 (10-20) BUN 21 H 18 (9-20) mg/dL Creatinine 1.9 H 1.5 (0.8-1.5) mg/dL Est GFR ( Amer) 42 56 Est GFR (Non-Af Amer) 35 46 POC Glucose (mg/dL) (65-110) mg/dL Random Glucose 115 H 115 H (75-110) mg/dL Calcium 7.7 L 8.1 L (8.6-10.4) mg/dl Phosphorus 2.8 (2.5-4.5) mg/dL Magnesium 1.8 (1.6-2.3) mg/dL % Saturation (20-55) Ferritin ng/mL Total Bilirubin 1.2 0.9 (0.2-1.3) mg/dL AST 42 28 (17-59) U/L ALT 42 34 (21-72) U/L Alkaline Phosphatase 89 63 (38-126) U/L Total Creatine Kinase < 20 L (55-170) U/L CK-MB (Mass) 0.51 (0.0-3.38) ng/mL Troponin I 0.0500 (0.00-0.120) ng/mL Total Protein 6.4 6.6 (6.3-8.3) g/dL Albumin 4.2 4.3 (3.5-5.0) g/dL Globulin 2.2 2.2 (2.2-3.9) gm/dL Albumin/Globulin Ratio 1.9 1.9 (1.0-2.1) Free T4 (0.78-2.19) ng/dL Thyroxine (T4) (5.5-11.0) ug/dL TSH 3rd Generation (0.46-4.68) mIU/L Arterial Blood Potassium (3.6-5.2) mmol/L Tacrolimus (LC/MS/MS) (5.0-20.0) mcg/L Heparin-induced Plt Ab (Negative) 05/19/18 05/19/18 05/19/18 Range/Units 21:14 21:08 16:15 WBC 26.4 H (4.8-10.8) K/uL RBC 2.61 L (4.40-5.90) Mil/uL Hgb 7.7 L (12.0-18.0) g/dL Hct 25.0 L (35.0-51.0) % MCV 95.8 H (80.0-94.0) fL MCH 29.6 (27.0-31.0) pg MCHC 30.9 L (33.0-37.0) g/dL RDW 25.6 H (11.5-14.5) % Plt Count 75 L (130-400) K/uL MPV 9.1 (7.2-11.7) fL Neut % (Auto) 94.7 H (50.0-75.0) % Lymph % (Auto) 2.5 L (20.0-40.0) % [place] % (Auto) 2.8 (0.0-10.0) % Eos % (Auto) 0.0 (0.0-4.0) % Baso % (Auto) 0.0 (0.0-2.0) % Neut # (Auto) 25.0 H (1.8-7.0) K/uL Lymph # (Auto) 0.7 L (1.0-4.3) K/uL [place] # (Auto) 0.7 (0.0-0.8) K/uL Eos # (Auto) 0.0 (0.0-0.7) K/uL Baso # (Auto) 0.0 (0.0-0.2) K/uL Neutrophils % (Manual) 80 H (50-75) % Band Neutrophils % 12 H* (0-2) % Lymphocytes % (Manual) 6 L (20-40) % Reactive Lymphs % 1 H (0-0) % Monocytes % (Manual) 1 (0-10) % Metamyelocytes % (0-0) % Nucleated RBC % (0-0) % Toxic Granulation Platelet Estimate Decreased L (NORMAL) Large Platelets Present Giant Platelets Polychromasia Hypochromasia (manual) Slight Poikilocytosis (manual Basophilic Stippling Anisocytosis (manual) Microcytosis (manual) Slight Macrocytosis (manual) Ovalocytes Slight [place] Cells Schistocytes Slight PT (9.7-12.2) SECONDS INR APTT (21-34) SECONDS Puncture Site pCO2 (35-45) mm/Hg pO2 (80-100) mm/Hg HCO3 (21-28) mmol/L ABG pH (7.35-7.45) ABG Total CO2 (22-28) mmol/L ABG O2 Saturation (95-98) % ABG Base Excess (-2.0-3.0) mmol/L Nehemiah Test ABG Potassium (3.6-5.2) mmol/L A-a O2 Difference mm/Hg Respiratory Index Sodium (132-148) mmol/l Chloride (98-107) mmol/L Glucose (75-110) mg/dl Lactate (0.7-2.1) mmol/L Vent Mode FiO2 % Inspiratory BiPAP Expiratory BiPAP Potassium (3.6-5.2) mmol/L Carbon Dioxide (22-30) mmol/L Anion Gap (10-20) BUN (9-20) mg/dL Creatinine (0.8-1.5) mg/dL Est GFR ( Amer) Est GFR (Non-Af Amer) POC Glucose (mg/dL) 125 H 106 (65-110) mg/dL Random Glucose (75-110) mg/dL Calcium (8.6-10.4) mg/dl Phosphorus (2.5-4.5) mg/dL Magnesium (1.6-2.3) mg/dL % Saturation (20-55) Ferritin ng/mL Total Bilirubin (0.2-1.3) mg/dL AST (17-59) U/L ALT (21-72) U/L Alkaline Phosphatase (38-126) U/L Total Creatine Kinase (55-170) U/L CK-MB (Mass) (0.0-3.38) ng/mL Troponin I (0.00-0.120) ng/mL Total Protein (6.3-8.3) g/dL Albumin (3.5-5.0) g/dL Globulin (2.2-3.9) gm/dL Albumin/Globulin Ratio (1.0-2.1) Free T4 (0.78-2.19) ng/dL Thyroxine (T4) (5.5-11.0) ug/dL TSH 3rd Generation (0.46-4.68) mIU/L Arterial Blood Potassium (3.6-5.2) mmol/L Tacrolimus (LC/MS/MS) (5.0-20.0) mcg/L Heparin-induced Plt Ab (Negative) 05/19/18 05/19/18 05/19/18 Range/Units 12:07 12:07 11:32 WBC (4.8-10.8) K/uL RBC (4.40-5.90) Mil/uL Hgb (12.0-18.0) g/dL Hct (35.0-51.0) % MCV (80.0-94.0) fL MCH (27.0-31.0) pg MCHC (33.0-37.0) g/dL RDW (11.5-14.5) % Plt Count (130-400) K/uL MPV (7.2-11.7) fL Neut % (Auto) (50.0-75.0) % Lymph % (Auto) (20.0-40.0) % [place] % (Auto) (0.0-10.0) % Eos % (Auto) (0.0-4.0) % Baso % (Auto) (0.0-2.0) % Neut # (Auto) (1.8-7.0) K/uL Lymph # (Auto) (1.0-4.3) K/uL [place] # (Auto) (0.0-0.8) K/uL Eos # (Auto) (0.0-0.7) K/uL Baso # (Auto) (0.0-0.2) K/uL Neutrophils % (Manual) (50-75) % Band Neutrophils % (0-2) % Lymphocytes % (Manual) (20-40) % Reactive Lymphs % (0-0) % Monocytes % (Manual) (0-10) % Metamyelocytes % (0-0) % Nucleated RBC % (0-0) % Toxic Granulation Platelet Estimate (NORMAL) Large Platelets Giant Platelets Polychromasia Hypochromasia (manual) Poikilocytosis (manual Basophilic Stippling Anisocytosis (manual) Microcytosis (manual) Macrocytosis (manual) Ovalocytes [place] Cells Schistocytes PT (9.7-12.2) SECONDS INR APTT (21-34) SECONDS Puncture Site pCO2 (35-45) mm/Hg pO2 (80-100) mm/Hg HCO3 (21-28) mmol/L ABG pH (7.35-7.45) ABG Total CO2 (22-28) mmol/L ABG O2 Saturation (95-98) % ABG Base Excess (-2.0-3.0) mmol/L Nehemiah Test ABG Potassium (3.6-5.2) mmol/L A-a O2 Difference mm/Hg Respiratory Index Sodium 138 (132-148) mmol/l Chloride 97 L (98-107) mmol/L Glucose (75-110) mg/dl Lactate (0.7-2.1) mmol/L Vent Mode FiO2 % Inspiratory BiPAP Expiratory BiPAP Potassium 4.3 (3.6-5.2) mmol/L Carbon Dioxide 30 (22-30) mmol/L Anion Gap 15 (10-20) BUN 11 (9-20) mg/dL Creatinine 0.9 (0.8-1.5) mg/dL Est GFR ( Amer) > 60 Est GFR (Non-Af Amer) > 60 POC Glucose (mg/dL) 101 (65-110) mg/dL Random Glucose 113 H (75-110) mg/dL Calcium 8.2 L (8.6-10.4) mg/dl Phosphorus (2.5-4.5) mg/dL Magnesium (1.6-2.3) mg/dL % Saturation 48 (20-55) Ferritin 721.0 ng/mL Total Bilirubin 1.5 H (0.2-1.3) mg/dL AST 75 H D (17-59) U/L ALT 49 (21-72) U/L Alkaline Phosphatase 94 (38-126) U/L Total Creatine Kinase (55-170) U/L CK-MB (Mass) (0.0-3.38) ng/mL Troponin I (0.00-0.120) ng/mL Total Protein 7.3 (6.3-8.3) g/dL Albumin 4.3 (3.5-5.0) g/dL Globulin 3.0 (2.2-3.9) gm/dL Albumin/Globulin Ratio 1.4 (1.0-2.1) Free T4 (0.78-2.19) ng/dL Thyroxine (T4) (5.5-11.0) ug/dL TSH 3rd Generation (0.46-4.68) mIU/L Arterial Blood Potassium (3.6-5.2) mmol/L Tacrolimus (LC/MS/MS) (5.0-20.0) mcg/L Heparin-induced Plt Ab (Negative) 05/19/18 05/18/18 05/17/18 Range/Units 10:50 06:15 12:14 WBC (4.8-10.8) K/uL RBC (4.40-5.90) Mil/uL Hgb (12.0-18.0) g/dL Hct (35.0-51.0) % MCV (80.0-94.0) fL MCH (27.0-31.0) pg MCHC (33.0-37.0) g/dL RDW (11.5-14.5) % Plt Count (130-400) K/uL MPV (7.2-11.7) fL Neut % (Auto) (50.0-75.0) % Lymph % (Auto) (20.0-40.0) % [place] % (Auto) (0.0-10.0) % Eos % (Auto) (0.0-4.0) % Baso % (Auto) (0.0-2.0) % Neut # (Auto) (1.8-7.0) K/uL Lymph # (Auto) (1.0-4.3) K/uL [place] # (Auto) (0.0-0.8) K/uL Eos # (Auto) (0.0-0.7) K/uL Baso # (Auto) (0.0-0.2) K/uL Neutrophils % (Manual) (50-75) % Band Neutrophils % (0-2) % Lymphocytes % (Manual) (20-40) % Reactive Lymphs % (0-0) % Monocytes % (Manual) (0-10) % Metamyelocytes % (0-0) % Nucleated RBC % (0-0) % Toxic Granulation Platelet Estimate (NORMAL) Large Platelets Giant Platelets Polychromasia Hypochromasia (manual) Poikilocytosis (manual Basophilic Stippling Anisocytosis (manual) Microcytosis (manual) Macrocytosis (manual) Ovalocytes David Cells Schistocytes PT (9.7-12.2) SECONDS INR APTT (21-34) SECONDS Puncture Site Rb pCO2 52 H (35-45) mm/Hg pO2 339 H (80-100) mm/Hg HCO3 28.4 H (21-28) mmol/L ABG pH 7.38 (7.35-7.45) ABG Total CO2 32.4 H (22-28) mmol/L ABG O2 Saturation 99.5 H (95-98) % ABG Base Excess 4.4 H (-2.0-3.0) mmol/L Nehemiah Test Pos ABG Potassium 3.6 (3.6-5.2) mmol/L A-a O2 Difference 309.0 mm/Hg Respiratory Index 0.9 Sodium 139.0 (132-148) mmol/l Chloride 106.0 (98-107) mmol/L Glucose 120 H (75-110) mg/dl Lactate 1.1 (0.7-2.1) mmol/L Vent Mode Bipap FiO2 100.0 % Inspiratory BiPAP 16 Expiratory BiPAP 10 Potassium (3.6-5.2) mmol/L Carbon Dioxide (22-30) mmol/L Anion Gap (10-20) BUN (9-20) mg/dL Creatinine (0.8-1.5) mg/dL Est GFR ( Amer) Est GFR (Non-Af Amer) POC Glucose (mg/dL) (65-110) mg/dL Random Glucose (75-110) mg/dL Calcium (8.6-10.4) mg/dl Phosphorus (2.5-4.5) mg/dL Magnesium (1.6-2.3) mg/dL % Saturation (20-55) Ferritin ng/mL Total Bilirubin (0.2-1.3) mg/dL AST (17-59) U/L ALT (21-72) U/L Alkaline Phosphatase (38-126) U/L Total Creatine Kinase (55-170) U/L CK-MB (Mass) (0.0-3.38) ng/mL Troponin I (0.00-0.120) ng/mL Total Protein (6.3-8.3) g/dL Albumin (3.5-5.0) g/dL Globulin (2.2-3.9) gm/dL Albumin/Globulin Ratio (1.0-2.1) Free T4 (0.78-2.19) ng/dL Thyroxine (T4) (5.5-11.0) ug/dL TSH 3rd Generation (0.46-4.68) mIU/L Arterial Blood Potassium 3.6 (3.6-5.2) mmol/L Tacrolimus (LC/MS/MS) 7.8 (5.0-20.0) mcg/L Heparin-induced Plt Ab Negative (Negative) Laboratory Results - last 24 hr 05/17/18 05/18/18 05/19/18 12:14 06:15 10:50 WBC RBC Hgb Hct MCV MCH MCHC RDW Plt Count MPV Neut % (Auto) Lymph % (Auto) [place] % (Auto) Eos % (Auto) Baso % (Auto) Neut # (Auto) Lymph # (Auto) [place] # (Auto) Eos # (Auto) Baso # (Auto) Neutrophils % (Manual) Band Neutrophils % Lymphocytes % (Manual) Reactive Lymphs % Monocytes % (Manual) Metamyelocytes % Nucleated RBC % Toxic Granulation Platelet Estimate Large Platelets Giant Platelets Polychromasia Hypochromasia (manual) Poikilocytosis (manual Basophilic Stippling Anisocytosis (manual) Microcytosis (manual) Macrocytosis (manual) Ovalocytes [place] Cells Schistocytes PT INR APTT Puncture Site Rb pCO2 52 H pO2 339 H HCO3 28.4 H ABG pH 7.38 ABG Total CO2 32.4 H ABG O2 Saturation 99.5 H ABG Base Excess 4.4 H Nehemiah Test Pos ABG Potassium 3.6 A-a O2 Difference 309.0 Respiratory Index 0.9 Sodium 139.0 Chloride 106.0 Glucose 120 H Lactate 1.1 Vent Mode Bipap FiO2 100.0 Inspiratory BiPAP 16 Expiratory BiPAP 10 Potassium Carbon Dioxide Anion Gap BUN Creatinine Est GFR ( Amer) Est GFR (Non-Af Amer) POC Glucose (mg/dL) Random Glucose Calcium Phosphorus Magnesium % Saturation Ferritin Total Bilirubin AST ALT Alkaline Phosphatase Total Creatine Kinase CK-MB (Mass) Troponin I Total Protein Albumin Globulin Albumin/Globulin Ratio Free T4 Thyroxine (T4) TSH 3rd Generation Arterial Blood Potassium 3.6 Tacrolimus (LC/MS/MS) 7.8 Heparin-induced Plt Ab Negative 05/19/18 05/19/18 05/19/18 11:32 12:07 12:07 WBC RBC Hgb Hct MCV MCH MCHC RDW Plt Count MPV Neut % (Auto) Lymph % (Auto) [place] % (Auto) Eos % (Auto) Baso % (Auto) Neut # (Auto) Lymph # (Auto) [place] # (Auto) Eos # (Auto) Baso # (Auto) Neutrophils % (Manual) Band Neutrophils % Lymphocytes % (Manual) Reactive Lymphs % Monocytes % (Manual) Metamyelocytes % Nucleated RBC % Toxic Granulation Platelet Estimate Large Platelets Giant Platelets Polychromasia Hypochromasia (manual) Poikilocytosis (manual Basophilic Stippling Anisocytosis (manual) Microcytosis (manual) Macrocytosis (manual) Ovalocytes [place] Cells Schistocytes PT INR APTT Puncture Site pCO2 pO2 HCO3 ABG pH ABG Total CO2 ABG O2 Saturation ABG Base Excess Nehemiah Test ABG Potassium A-a O2 Difference Respiratory Index Sodium 138 Chloride 97 L Glucose Lactate Vent Mode FiO2 Inspiratory BiPAP Expiratory BiPAP Potassium 4.3 Carbon Dioxide 30 Anion Gap 15 BUN 11 Creatinine 0.9 Est GFR ( Amer) > 60 Est GFR (Non-Af Amer) > 60 POC Glucose (mg/dL) 101 Random Glucose 113 H Calcium 8.2 L Phosphorus Magnesium % Saturation 48 Ferritin 721.0 Total Bilirubin 1.5 H AST 75 H D ALT 49 Alkaline Phosphatase 94 Total Creatine Kinase CK-MB (Mass) Troponin I Total Protein 7.3 Albumin 4.3 Globulin 3.0 Albumin/Globulin Ratio 1.4 Free T4 Thyroxine (T4) TSH 3rd Generation Arterial Blood Potassium Tacrolimus (LC/MS/MS) Heparin-induced Plt Ab 05/19/18 05/19/18 05/19/18 16:15 21:08 21:14 WBC 26.4 H RBC 2.61 L Hgb 7.7 L Hct 25.0 L MCV 95.8 H MCH 29.6 MCHC 30.9 L RDW 25.6 H Plt Count 75 L MPV 9.1 Neut % (Auto) 94.7 H Lymph % (Auto) 2.5 L [place] % (Auto) 2.8 Eos % (Auto) 0.0 Baso % (Auto) 0.0 Neut # (Auto) 25.0 H Lymph # (Auto) 0.7 L [place] # (Auto) 0.7 Eos # (Auto) 0.0 Baso # (Auto) 0.0 Neutrophils % (Manual) 80 H Band Neutrophils % 12 H* Lymphocytes % (Manual) 6 L Reactive Lymphs % 1 H Monocytes % (Manual) 1 Metamyelocytes % Nucleated RBC % Toxic Granulation Platelet Estimate Decreased L Large Platelets Present Giant Platelets Polychromasia Hypochromasia (manual) Slight Poikilocytosis (manual Basophilic Stippling Anisocytosis (manual) Microcytosis (manual) Slight Macrocytosis (manual) Ovalocytes Slight [place] Cells Schistocytes Slight PT INR APTT Puncture Site pCO2 pO2 HCO3 ABG pH ABG Total CO2 ABG O2 Saturation ABG Base Excess Nehemiah Test ABG Potassium A-a O2 Difference Respiratory Index Sodium Chloride Glucose Lactate Vent Mode FiO2 Inspiratory BiPAP Expiratory BiPAP Potassium Carbon Dioxide Anion Gap BUN Creatinine Est GFR ( Amer) Est GFR (Non-Af Amer) POC Glucose (mg/dL) 106 125 H Random Glucose Calcium Phosphorus Magnesium % Saturation Ferritin Total Bilirubin AST ALT Alkaline Phosphatase Total Creatine Kinase CK-MB (Mass) Troponin I Total Protein Albumin Globulin Albumin/Globulin Ratio Free T4 Thyroxine (T4) TSH 3rd Generation Arterial Blood Potassium Tacrolimus (LC/MS/MS) Heparin-induced Plt Ab 05/19/18 05/20/18 05/20/18 21:14 05:59 05:59 WBC 33.6 H RBC 2.74 L Hgb 8.2 L Hct 26.5 L MCV 96.6 H MCH 29.8 MCHC 30.8 L RDW 26.3 H Plt Count 89 L MPV 9.6 Neut % (Auto) 95.8 H Lymph % (Auto) 0.8 L [place] % (Auto) 3.4 Eos % (Auto) 0.0 Baso % (Auto) 0.0 Neut # (Auto) 32.2 H Lymph # (Auto) 0.3 L [place] # (Auto) 1.1 H Eos # (Auto) 0.0 Baso # (Auto) 0.0 Neutrophils % (Manual) 87 H Band Neutrophils % 9 H Lymphocytes % (Manual) 1 L Reactive Lymphs % Monocytes % (Manual) 2 Metamyelocytes % 1 H Nucleated RBC % 2 H Toxic Granulation Present Platelet Estimate Decreased L Large Platelets Present Giant Platelets Present Polychromasia Slight Hypochromasia (manual) Moderate Poikilocytosis (manual Moderate Basophilic Stippling Slight Anisocytosis (manual) Marked Microcytosis (manual) Macrocytosis (manual) Slight Ovalocytes Slight David Cells Slight Schistocytes Slight PT INR APTT Puncture Site pCO2 pO2 HCO3 ABG pH ABG Total CO2 ABG O2 Saturation ABG Base Excess Nehemiah Test ABG Potassium A-a O2 Difference Respiratory Index Sodium 142 141 Chloride 99 101 Glucose Lactate Vent Mode FiO2 Inspiratory BiPAP Expiratory BiPAP Potassium 4.1 4.2 Carbon Dioxide 30 28 Anion Gap 17 16 BUN 18 21 H Creatinine 1.5 1.9 H Est GFR ( Amer) 56 42 Est GFR (Non-Af Amer) 46 35 POC Glucose (mg/dL) Random Glucose 115 H 115 H Calcium 8.1 L 7.7 L Phosphorus 2.8 Magnesium 1.8 % Saturation Ferritin Total Bilirubin 0.9 1.2 AST 28 42 ALT 34 42 Alkaline Phosphatase 63 89 Total Creatine Kinase < 20 L CK-MB (Mass) 0.51 Troponin I 0.0500 Total Protein 6.6 6.4 Albumin 4.3 4.2 Globulin 2.2 2.2 Albumin/Globulin Ratio 1.9 1.9 Free T4 Thyroxine (T4) TSH 3rd Generation Arterial Blood Potassium Tacrolimus (LC/MS/MS) Heparin-induced Plt Ab 05/20/18 05/20/18 05/20/18 05:59 05:59 05:59 WBC RBC Hgb Hct MCV MCH MCHC RDW Plt Count MPV Neut % (Auto) Lymph % (Auto) [place] % (Auto) Eos % (Auto) Baso % (Auto) Neut # (Auto) Lymph # (Auto) [place] # (Auto) Eos # (Auto) Baso # (Auto) Neutrophils % (Manual) Band Neutrophils % Lymphocytes % (Manual) Reactive Lymphs % Monocytes % (Manual) Metamyelocytes % Nucleated RBC % Toxic Granulation Platelet Estimate Large Platelets Giant Platelets Polychromasia Hypochromasia (manual) Poikilocytosis (manual Basophilic Stippling Anisocytosis (manual) Microcytosis (manual) Macrocytosis (manual) Ovalocytes David Cells Schistocytes PT 11.7 INR 1.1 APTT 39 H Puncture Site pCO2 pO2 HCO3 ABG pH ABG Total CO2 ABG O2 Saturation ABG Base Excess Nehemiah Test ABG Potassium A-a O2 Difference Respiratory Index Sodium Chloride Glucose Lactate Vent Mode FiO2 Inspiratory BiPAP Expiratory BiPAP Potassium Carbon Dioxide Anion Gap BUN Creatinine Est GFR ( Amer) Est GFR (Non-Af Amer) POC Glucose (mg/dL) Random Glucose Calcium Phosphorus 3.5 Magnesium 1.8 % Saturation Ferritin Total Bilirubin AST ALT Alkaline Phosphatase Total Creatine Kinase CK-MB (Mass) Troponin I Total Protein Albumin Globulin Albumin/Globulin Ratio Free T4 0.69 L Thyroxine (T4) 1.81 L TSH 3rd Generation 1.97 Arterial Blood Potassium Tacrolimus (LC/MS/MS) Heparin-induced Plt Ab EKG/Cardiology Studies: Cardiology / EKG Studies 05/19/18 21:00 EKG [ELECTROCARDIOGRAM] Routine Comment: Mode Of Transportation: Reason For Exam: chest pain Isolation: Contact Droplet Fingerstick Blood Sugar Results: 90 Critical Care Progress Note - Nutrition Nutrition: Nutrition Category Date Time Status Dysphagia/Modified Consistency Diet [DIET] Diets 05/19/18 Dinner Active
[2018-05-20] MEDS: Meropenem 500 MG in Sodium Chloride 0.9% 100 ML IVPB SCH (10:15)
[2018-05-20] MEDS: Vitamins A & D Oint UD Foilpak TOP SCH ×2 (10:16→18:29)
[2018-05-20] MEDS: Collagenase 250 Units/gm Ointment(30 gm) TOP SCH (15:17)
--- NOTE | 2018-05-20 16:17 | PN ---
DATE: 05/20/2018 ENDOCRINOLOGY FOLLOWUP NOTE LOCATION: ICU Room 10. SUBJECTIVE: This is a 72-year-old male with recent overt hypothyroidism and presenting here with hypotension and hypothermia and is now being followed closely in the ICU for hemodynamic monitoring at this time. He also is on ongoing IV antibiotics for underlying bacteremia as noted. His repeat chemistries today showed a BUN of 21, sodium 141, potassium 4.2, chloride 101, CO2 of 28, glucose 115 and creatinine 1.9. His repeat thyroid studies showed TSH of 1.97, which makes him actually euthyroid biochemically with a falsely low normal thyroxine of 1.81, because of the intercurrent physical stressors and a superimposed acute sick euthyroid syndrome. PLAN: We will continue the levothyroxine modified to a dose of 200 mcg IV push, given daily as ordered. We will obtain serial chemistries and supplement accordingly as needed. We will follow with you. Isamar Shane MD
[2018-05-20] MEDS ORDERED: Dextrose 50% SYRINGE Inj (50 ml) IV STA (16:45)
[2018-05-20] MEDS: Micafungin 100 MG in Sodium Chloride 0.9% 100 ML IV SCH (19:22)
[2018-05-20 21:14] VITALS: O2SAT 90
[2018-05-20] MEDS ORDERED: Morphine Sulfate 250 MG in Dextrose 5% In Water 240 ML IV PRN (21:56)
[2018-05-21 00:01] VITALS: BP 115/89; PULSE 86; RESP 18
--- NOTE | 2018-05-21 00:16 | CP.CCUPN ---
CCU Subjective - Physician Review Events Since Last Encounter (Free Text): CCM Called to see unresponisve patient who ws apneic and pulseless. Pt pronounced . Time of 12:10 AM. Family aware. 05/21/18 00:15 CCU Objective - Vital Signs / Intake & Output Vital Signs (Last 4 hours): Vital Signs Pulse Resp BP 05/20/18 23:01 86 18 115/89 05/20/18 22:30 77 20 74/33 L 05/20/18 22:01 75 19 66/43 L 05/20/18 21:34 75 18 91/29 L 05/20/18 21:01 81 19 110/97 H 05/20/18 20:45 89 20 101/24 L 05/20/18 20:37 86 05/20/18 20:30 70 20 101/24 L Intake and Output (Last 8hrs): Intake & Output 05/20/18 05/20/18 05/21/18 14:59 22:59 06:59 Intake Total 345 718.0 Output Total 0 Balance 345 718.0 Intake: IV 15 295.5 Intake, IV Amount 330 422.5 RA midline 170 240 RA midline "Y" 160 182.5 Output: Urine 0 Urine, Voided 0 - Physical Exam Head: Positive for: Atraumatic, Normocephalic Pupils: Positive for: PERRL Extroacular Muscles: Positive for: EOMI Conjunctiva: Positive for: Normal Mouth: Positive for: Dry Pharnyx: Negative for: ERYTHEMA Respiratory/Chest: Positive for: Other (BiPAP). Negative for: Respiratory Distress, Accessory Muscle Use Cardiovascular: Positive for: Normal S1, S2, Irregular Rhythm (Afib RVR), Tachycardic, Other (trialysis cath in R femoral). Negative for: Murmurs Abdomen: Positive for: Normal Bowel Sounds. Negative for: Tenderness, Distention, Peritoneal Signs Upper Extremity: Positive for: Swelling, Erythema, Neurovascularly Intact, Other (b/l skin sloughing) Lower Extremity: Positive for: Erythema, Neurovascularly Intact Neurological: Positive for: GCS=15, CN II-XII Intact Psychiatric: Positive for: Alert, Oriented x 3. Negative for: Agitated - Medications Active Medications: Active Medications Generic Name Dose Route Start Last Admin Trade Name Freq PRN Reason Stop Dose Admin Albumin Human 37.5 gm 05/12/18 16:00 Albumin Human 25% (12.5 Gm/50 Ml) IV DAILY PRN PER HD IF SBP IS LESS THAN 90 Albumin Human 12.5 gm 05/16/18 11:47 05/19/18 10:06 Albumin Human 25% (12.5 Gm/50 Ml) IV 12.5 gm ONCE PRN Administration hypotension Albuterol/Ipratropium 3 ml 05/12/18 19:00 05/20/18 20:36 Duoneb 3 Mg/0.5 Mg (3 Ml) Ud INH 3 ml RQ4 FAHEEM Administration Apixaban 2.5 mg 05/20/18 10:00 05/20/18 17:46 Eliquis PO Not Given BID FAHEEM Calcium Acetate 1,334 mg 05/12/18 13:21 05/20/18 17:18 Phoslo PO Not Given TIDCC FAHEEM Collagenase 0 gm 05/11/18 11:00 05/20/18 15:17 Santyl TOP Not Given DAILY [facility] Cyanocobalamin 1,000 mcg 05/12/18 10:00 05/20/18 09:21 Vitamin B12 1000 Mcg Tab PO Not Given DAILY FAHEEM Dextrose 0 ml 05/08/18 17:53 05/16/18 21:23 Dextrose 50% Inj IV 50 ml STAT PRN Administration Hypoglycemia Protocol Protocol Dextrose 0 gm 05/08/18 17:53 Glutose 15 PO ONCE PRN Hypoglycemia Protocol Protocol Diltiazem HCl 180 mg 05/14/18 10:00 05/20/18 09:20 Cardizem Cd PO Not Given DAILY [facility] Docusate Sodium 100 mg 05/18/18 14:59 Colace PO BID PRN Constipation Epoetin Jean Paul 10,000 unit 05/22/18 09:00 Procrit IV MWF FAHEEM Folic Acid 1 mg 05/09/18 10:00 05/20/18 10:02 Folic Acid PO Not Given DAILY FAHEEM Glucagon 0 mg 05/08/18 17:53 Glucagen Diagnostic Kit IM STAT PRN Hypoglycemia Protocol Protocol Heparin Sodium (Porcine) 5,000 units 05/14/18 11:00 05/16/18 10:41 Heparin SC Not Given Q12 FAHEEM Hydrocortisone Sodium Succinate 100 mg 05/16/18 10:45 05/20/18 18:24 Solu-Cortef IV 100 mg Q8H FAHEEM Administration Daptomycin 300 mg/ Sodium 100 mls @ 200 mls/hr 05/10/18 18:30 05/20/18 18:37 Chloride IV 200 mls/hr Q48H FAHEEM Administration Micafungin Sodium 100 mg/ 100 mls @ 100 mls/hr 05/10/18 20:00 05/20/18 19:22 Sodium Chloride IV 100 mls/hr Q24H FAHEEM Administration Protocol Meropenem 500 mg/ Sodium 100 mls @ 100 mls/hr 05/14/18 23:00 05/20/18 10:15 Chloride IVPB 100 mls/hr Q12H FAHEEM Administration Protocol Phenylephrine HCl 30 mg/ 253 mls @ 10.12 mls/hr 05/19/18 18:45 05/20/18 22:30 Dextrose IV 100 mcg/min .Q24H PRN 50.6 mls/hr TITRATE PER MD ORDER Titration Protocol 20 MCG/MIN Morphine Sulfate 250 mg/ 250 mls @ 2 mls/hr 05/20/18 21:56 05/20/18 22:30 Dextrose IV 2 mg/hr .Q24H PRN 2 mls/hr Shortness of Breath Administration Protocol Insulin Human Regular 0 unit 05/16/18 16:50 05/20/18 22:42 Novolin R SC Not Given ACHS FAHEEM Protocol Isoniazid 300 mg 05/15/18 12:00 05/20/18 09:20 Niazid PO Not Given DAILY FAHEEM Protocol Lactic Acid 0 gm 05/12/18 07:00 05/20/18 22:40 Lac-Hydrin 12% Lotion (225 G) EXT 1 applic Q8 FAHEEM Administration Levothyroxine Sodium 200 mcg 05/20/18 10:00 05/20/18 10:14 Levothyroxine IVP 200 mcg Q24H FAHEEM Administration Multivitamins 1 tab 05/15/18 13:00 05/20/18 09:20 Hexavitamin PO Not Given DAILY FAHEEM Pantoprazole Sodium 40 mg 05/12/18 21:00 05/20/18 21:05 Protonix Inj IVP 40 mg Q12H FAHEEM Administration Polyethylene Glycol 17 gm 05/18/18 12:14 Miralax PO BID PRN Constipation Pyridoxine HCl 50 mg 05/09/18 10:00 05/20/18 09:21 Vitamin B6 50 Mg Tab PO Not Given DAILY FAHEEM Rifampin 600 mg 05/15/18 12:00 05/20/18 09:21 Rifampin Cap PO Not Given DAILY [facility] Protocol Tacrolimus 4 mg 05/15/18 11:35 05/17/18 10:16 Prograf Cap PO Not Given BID FAHEEM Thiamine HCl 200 mg 05/11/18 09:45 05/20/18 18:24 Vitamin B1 Inj IV 200 mg Q8H FAHEEM Administration Verapamil HCl 2.5 mg 05/13/18 16:52 05/19/18 11:36 Verapamil Inj IVP 2.5 mg Q6H PRN Administration Heart rate Vitamin A 0 ea 05/11/18 18:00 05/20/18 18:29 Vitamin A & D Oint Ud Foilpak TOP 1 ea BID FAHEEM Administration - Patient Studies Lab Studies: Microbiology Studies 05/17/18 09:30 Blood Culture - Preliminary Blood NO GROWTH AFTER 3 DAYS 05/17/18 09:00 Blood Culture - Preliminary Blood NO GROWTH AFTER 3 DAYS Lab Studies 05/20/18 05/20/18 05/20/18 Range/Units 05:59 05:59 05:59 WBC (4.8-10.8) K/uL RBC (4.40-5.90) Mil/uL Hgb (12.0-18.0) g/dL Hct (35.0-51.0) % MCV (80.0-94.0) fL MCH (27.0-31.0) pg MCHC (33.0-37.0) g/dL RDW (11.5-14.5) % Plt Count (130-400) K/uL MPV (7.2-11.7) fL Neut % (Auto) (50.0-75.0) % Lymph % (Auto) (20.0-40.0) % [place] % (Auto) (0.0-10.0) % Eos % (Auto) (0.0-4.0) % Baso % (Auto) (0.0-2.0) % Neut # (Auto) (1.8-7.0) K/uL Lymph # (Auto) (1.0-4.3) K/uL [place] # (Auto) (0.0-0.8) K/uL Eos # (Auto) (0.0-0.7) K/uL Baso # (Auto) (0.0-0.2) K/uL Neutrophils % (Manual) (50-75) % Band Neutrophils % (0-2) % Lymphocytes % (Manual) (20-40) % Monocytes % (Manual) (0-10) % Metamyelocytes % (0-0) % Nucleated RBC % (0-0) % Toxic Granulation Platelet Estimate (NORMAL) Large Platelets Giant Platelets Polychromasia Hypochromasia (manual) Poikilocytosis (manual Basophilic Stippling Anisocytosis (manual) Macrocytosis (manual) Ovalocytes David Cells Schistocytes PT 11.7 (9.7-12.2) SECONDS INR 1.1 APTT 39 H (21-34) SECONDS Sodium (132-148) mmol/L Potassium (3.6-5.2) mmol/L Chloride (98-107) mmol/L Carbon Dioxide (22-30) mmol/L Anion Gap (10-20) BUN (9-20) mg/dL Creatinine (0.8-1.5) mg/dL Est GFR ( Amer) Est GFR (Non-Af Amer) Random Glucose (75-110) mg/dL Calcium (8.6-10.4) mg/dl Phosphorus 3.5 (2.5-4.5) mg/dL Magnesium 1.8 (1.6-2.3) mg/dL Total Bilirubin (0.2-1.3) mg/dL AST (17-59) U/L ALT (21-72) U/L Alkaline Phosphatase (38-126) U/L Total Protein (6.3-8.3) g/dL Albumin (3.5-5.0) g/dL Globulin (2.2-3.9) gm/dL Albumin/Globulin Ratio (1.0-2.1) Free T4 0.69 L (0.78-2.19) ng/dL Thyroxine (T4) 1.81 L (5.5-11.0) ug/dL TSH 3rd Generation 1.97 (0.46-4.68) mIU/L 05/20/18 05/20/18 Range/Units 05:59 05:59 WBC 33.6 H (4.8-10.8) K/uL RBC 2.74 L (4.40-5.90) Mil/uL Hgb 8.2 L (12.0-18.0) g/dL Hct 26.5 L (35.0-51.0) % MCV 96.6 H (80.0-94.0) fL MCH 29.8 (27.0-31.0) pg MCHC 30.8 L (33.0-37.0) g/dL RDW 26.3 H (11.5-14.5) % Plt Count 89 L (130-400) K/uL MPV 9.6 (7.2-11.7) fL Neut % (Auto) 95.8 H (50.0-75.0) % Lymph % (Auto) 0.8 L (20.0-40.0) % [place] % (Auto) 3.4 (0.0-10.0) % Eos % (Auto) 0.0 (0.0-4.0) % Baso % (Auto) 0.0 (0.0-2.0) % Neut # (Auto) 32.2 H (1.8-7.0) K/uL Lymph # (Auto) 0.3 L (1.0-4.3) K/uL [place] # (Auto) 1.1 H (0.0-0.8) K/uL Eos # (Auto) 0.0 (0.0-0.7) K/uL Baso # (Auto) 0.0 (0.0-0.2) K/uL Neutrophils % (Manual) 87 H (50-75) % Band Neutrophils % 9 H (0-2) % Lymphocytes % (Manual) 1 L (20-40) % Monocytes % (Manual) 2 (0-10) % Metamyelocytes % 1 H (0-0) % Nucleated RBC % 2 H (0-0) % Toxic Granulation Present Platelet Estimate Decreased L (NORMAL) Large Platelets Present Giant Platelets Present Polychromasia Slight Hypochromasia (manual) Moderate Poikilocytosis (manual Moderate Basophilic Stippling Slight Anisocytosis (manual) Marked Macrocytosis (manual) Slight Ovalocytes Slight David Cells Slight Schistocytes Slight PT (9.7-12.2) SECONDS INR APTT (21-34) SECONDS Sodium 141 (132-148) mmol/L Potassium 4.2 (3.6-5.2) mmol/L Chloride 101 (98-107) mmol/L Carbon Dioxide 28 (22-30) mmol/L Anion Gap 16 (10-20) BUN 21 H (9-20) mg/dL Creatinine 1.9 H (0.8-1.5) mg/dL Est GFR ( Amer) 42 Est GFR (Non-Af Amer) 35 Random Glucose 115 H (75-110) mg/dL Calcium 7.7 L (8.6-10.4) mg/dl Phosphorus (2.5-4.5) mg/dL Magnesium (1.6-2.3) mg/dL Total Bilirubin 1.2 (0.2-1.3) mg/dL AST 42 (17-59) U/L ALT 42 (21-72) U/L Alkaline Phosphatase 89 (38-126) U/L Total Protein 6.4 (6.3-8.3) g/dL Albumin 4.2 (3.5-5.0) g/dL Globulin 2.2 (2.2-3.9) gm/dL Albumin/Globulin Ratio 1.9 (1.0-2.1) Free T4 (0.78-2.19) ng/dL Thyroxine (T4) (5.5-11.0) ug/dL TSH 3rd Generation (0.46-4.68) mIU/L Laboratory Results - last 24 hr 05/20/18 05/20/18 05/20/18 05:59 05:59 05:59 WBC 33.6 H RBC 2.74 L Hgb 8.2 L Hct 26.5 L MCV 96.6 H MCH 29.8 MCHC 30.8 L RDW 26.3 H Plt Count 89 L MPV 9.6 Neut % (Auto) 95.8 H Lymph % (Auto) 0.8 L [place] % (Auto) 3.4 Eos % (Auto) 0.0 Baso % (Auto) 0.0 Neut # (Auto) 32.2 H Lymph # (Auto) 0.3 L [place] # (Auto) 1.1 H Eos # (Auto) 0.0 Baso # (Auto) 0.0 Neutrophils % (Manual) 87 H Band Neutrophils % 9 H Lymphocytes % (Manual) 1 L Monocytes % (Manual) 2 Metamyelocytes % 1 H Nucleated RBC % 2 H Toxic Granulation Present Platelet Estimate Decreased L Large Platelets Present Giant Platelets Present Polychromasia Slight Hypochromasia (manual) Moderate Poikilocytosis (manual Moderate Basophilic Stippling Slight Anisocytosis (manual) Marked Macrocytosis (manual) Slight Ovalocytes Slight David Cells Slight Schistocytes Slight PT 11.7 INR 1.1 APTT 39 H Sodium 141 Potassium 4.2 Chloride 101 Carbon Dioxide 28 Anion Gap 16 BUN 21 H Creatinine 1.9 H Est GFR ( Amer) 42 Est GFR (Non-Af Amer) 35 Random Glucose 115 H Calcium 7.7 L Phosphorus Magnesium Total Bilirubin 1.2 AST 42 ALT 42 Alkaline Phosphatase 89 Total Protein 6.4 Albumin 4.2 Globulin 2.2 Albumin/Globulin Ratio 1.9 Free T4 Thyroxine (T4) TSH 3rd Generation 05/20/18 05/20/18 05:59 05:59 WBC RBC Hgb Hct MCV MCH MCHC RDW Plt Count MPV Neut % (Auto) Lymph % (Auto) [place] % (Auto) Eos % (Auto) Baso % (Auto) Neut # (Auto) Lymph # (Auto) [place] # (Auto) Eos # (Auto) Baso # (Auto) Neutrophils % (Manual) Band Neutrophils % Lymphocytes % (Manual) Monocytes % (Manual) Metamyelocytes % Nucleated RBC % Toxic Granulation Platelet Estimate Large Platelets Giant Platelets Polychromasia Hypochromasia (manual) Poikilocytosis (manual Basophilic Stippling Anisocytosis (manual) Macrocytosis (manual) Ovalocytes [place] Cells Schistocytes PT INR APTT Sodium Potassium Chloride Carbon Dioxide Anion Gap BUN Creatinine Est GFR ( Amer) Est GFR (Non-Af Amer) Random Glucose Calcium Phosphorus 3.5 Magnesium 1.8 Total Bilirubin AST ALT Alkaline Phosphatase Total Protein Albumin Globulin Albumin/Globulin Ratio Free T4 0.69 L Thyroxine (T4) 1.81 L TSH 3rd Generation 1.97 Fingerstick Blood Sugar Results: 91 Critical Care Progress Note - Nutrition Nutrition: Nutrition Category Date Time Status Dysphagia/Modified Consistency Diet [DIET] Diets 05/19/18 Dinner Active
[2018-05-21 01:43] VITALS: TEMP 97.5
[2018-05-22] MEDS ORDERED: Epoetin Alfa 10,000 unit/ml Dialysis IV SCH (09:00)
--- NOTE | 2018-05-24 11:16 | CP.PCM.DIS ---
Provider - Provider Date of Admission: 05/08/18 15:27 Attending physician: Reji Bradshaw MD Primary care physician: Dr. CHRISTIAN SOTOMAYOR Consults: Dr Morrissey ( Nephrology) Dr Nash ( Infectious disease) , Intensivists, Dr Shane ( Endocrinology) , Dr Tovar ( Orthopedist), Dr Ortiz Jr ( Surgery). Time Spent in preparation of Discharge (in minutes): 45 Diagnosis - Discharge Diagnosis (1) Hypothermia Status: Resolved (2) Hypoglycemia Status: Resolved (3) Hypotension Status: Acute (4) Acute confusion Status: Resolved (5) Exfoliative dermatitis Status: Resolved (6) Acute on chronic diastolic CHF (congestive heart failure) Status: Acute (7) YVAN (acute kidney injury) Status: Acute (8) Sepsis Status: Acute Hospital Course - Lab Results Lab Results: Micro Results 05/17/18 09:30 Blood Blood Culture - Final NO GROWTH AFTER 5 DAYS 05/17/18 09:30 Blood Gram Stain - Final TEST NOT PERFORMED 05/17/18 09:00 Blood Blood Culture - Final NO GROWTH AFTER 5 DAYS 05/17/18 09:00 Blood Gram Stain - Final TEST NOT PERFORMED 05/17/18 12:22 Urine,Catheterized Urine Culture - Final Yeast Species 05/08/18 12:50 Blood Blood Culture - Final NO GROWTH AFTER 5 DAYS 05/08/18 12:50 Blood Gram Stain - Final TEST NOT PERFORMED 05/08/18 12:20 Blood Blood Culture - Final NO GROWTH AFTER 5 DAYS 05/08/18 12:20 Blood Gram Stain - Final TEST NOT PERFORMED 05/10/18 12:04 Sputum Gram Stain - Final 05/10/18 12:04 Sputum Sputum Culture - Final Escherichia Coli 05/08/18 19:26 Nose MRSA Culture (Admit) - Final MRSA NOT DETECTED 05/08/18 13:35 Urine Urine Culture - Final No Growth (<1,000 CFU/ML) Most Recent Lab Values WBC 33.6 K/uL (4.8-10.8) H 05/20/18 05:59 RBC 2.74 Mil/uL (4.40-5.90) L 05/20/18 05:59 Hgb 8.2 g/dL (12.0-18.0) L 05/20/18 05:59 Hct 26.5 % (35.0-51.0) L 05/20/18 05:59 MCV 96.6 fL (80.0-94.0) H 05/20/18 05:59 MCH 29.8 pg (27.0-31.0) 05/20/18 05:59 MCHC 30.8 g/dL (33.0-37.0) L 05/20/18 05:59 RDW 26.3 % (11.5-14.5) H 05/20/18 05:59 Plt Count 89 K/uL (130-400) L 05/20/18 05:59 MPV 9.6 fL (7.2-11.7) 05/20/18 05:59 Neut % (Auto) 95.8 % (50.0-75.0) H 05/20/18 05:59 Lymph % (Auto) 0.8 % (20.0-40.0) L 05/20/18 05:59 [place] % (Auto) 3.4 % (0.0-10.0) 05/20/18 05:59 Eos % (Auto) 0.0 % (0.0-4.0) 05/20/18 05:59 Baso % (Auto) 0.0 % (0.0-2.0) 05/20/18 05:59 Neut # (Auto) 32.2 K/uL (1.8-7.0) H 05/20/18 05:59 Lymph # (Auto) 0.3 K/uL (1.0-4.3) L 05/20/18 05:59 [place] # (Auto) 1.1 K/uL (0.0-0.8) H 05/20/18 05:59 Eos # (Auto) 0.0 K/uL (0.0-0.7) 05/20/18 05:59 Baso # (Auto) 0.0 K/uL (0.0-0.2) 05/20/18 05:59 Neutrophils % (Manual) 87 % (50-75) H 05/20/18 05:59 Band Neutrophils % 9 % (0-2) H 05/20/18 05:59 Lymphocytes % (Manual) 1 % (20-40) L 05/20/18 05:59 Reactive Lymphs % 1 % (0-0) H 05/19/18 21:14 Monocytes % (Manual) 2 % (0-10) 05/20/18 05:59 Eosinophils % (Manual) 3 % (0-4) 05/16/18 05:05 Metamyelocytes % 1 % (0-0) H 05/20/18 05:59 Myelocytes % 2 % (0-0) H 05/15/18 06:26 Nucleated RBC % 2 % (0-0) H 05/20/18 05:59 Toxic Granulation Present 05/20/18 05:59 Platelet Estimate Decreased (NORMAL) L 05/20/18 05:59 Large Platelets Present 05/20/18 05:59 Giant Platelets Present 05/20/18 05:59 Polychromasia Slight 05/20/18 05:59 Hypochromasia (manual) Moderate 05/20/18 05:59 Poikilocytosis (manual Moderate 05/20/18 05:59 Basophilic Stippling Slight 05/20/18 05:59 Anisocytosis (manual) Marked 05/20/18 05:59 Microcytosis (manual) Slight 05/19/18 21:14 Macrocytosis (manual) Slight 05/20/18 05:59 Target Cells Slight 05/17/18 04:38 Tear Drop Cells Slight 05/16/18 05:05 Ovalocytes Slight 05/20/18 05:59 [place] Cells Slight 05/20/18 05:59 Schistocytes Slight 05/20/18 05:59 PT 11.7 SECONDS (9.7-12.2) 05/20/18 05:59 INR 1.1 05/20/18 05:59 APTT 39 SECONDS (21-34) H 05/20/18 05:59 Fibrinogen 235 mg/dL (200-400) 05/16/18 12:10 Fibrin Degrad Products Positive (NEGATIVE) H 05/16/18 12:10 Fibrin Degrad Prod, Qt >10<40 ug/mL (<10) H 05/16/18 12:10 Puncture Site Rb 05/19/18 10:50 pCO2 52 mm/Hg (35-45) H 05/19/18 10:50 pO2 339 mm/Hg (80-100) H 05/19/18 10:50 HCO3 28.4 mmol/L (21-28) H 05/19/18 10:50 ABG pH 7.38 (7.35-7.45) 05/19/18 10:50 ABG Total CO2 32.4 mmol/L (22-28) H 05/19/18 10:50 ABG O2 Saturation 99.5 % (95-98) H 05/19/18 10:50 ABG Base Excess 4.4 mmol/L (-2.0-3.0) H 05/19/18 10:50 Nehemiah Test Pos 05/19/18 10:50 ABG Potassium 3.6 mmol/L (3.6-5.2) 05/19/18 10:50 VBG pH 7.49 (7.32-7.43) H 05/10/18 17:47 VBG pCO2 59 mmHg (40-60) 05/10/18 17:47 VBG HCO3 38.0 mmol/L 05/10/18 17:47 VBG Total CO2 46.8 mmol/L (22-28) H 05/10/18 17:47 VBG O2 Sat (Calc) 52.4 % (40-65) 05/10/18 17:47 VBG Base Excess 18.3 mmol/L (0.0-2.0) H 05/10/18 17:47 VBG Potassium 3.5 mmol/L (3.6-5.2) L 05/10/18 17:47 A-a O2 Difference 309.0 mm/Hg 05/19/18 10:50 Respiratory Index 0.9 05/19/18 10:50 Sodium 139.0 mmol/l (132-148) 05/19/18 10:50 Chloride 106.0 mmol/L (98-107) 05/19/18 10:50 Glucose 120 mg/dl (75-110) H 05/19/18 10:50 Lactate 1.1 mmol/L (0.7-2.1) 05/19/18 10:50 Vent Mode Bipap 05/19/18 10:50 FiO2 100.0 % 05/19/18 10:50 Inspiratory BiPAP 16 05/19/18 10:50 Expiratory BiPAP 10 05/19/18 10:50 Crit Value Called To Dr bond 05/17/18 08:27 Crit Value Called By Florencio ryan asp web developer 05/17/18 08:27 Crit Value Read Back Y 05/17/18 08:27 Blood Gas Notified Time 900 05/17/18 08:27 Sodium 141 mmol/L (132-148) 05/20/18 05:59 Potassium 4.2 mmol/L (3.6-5.2) 05/20/18 05:59 Chloride 101 mmol/L (98-107) 05/20/18 05:59 Carbon Dioxide 28 mmol/L (22-30) 05/20/18 05:59 Anion Gap 16 (10-20) 05/20/18 05:59 BUN 21 mg/dL (9-20) H 05/20/18 05:59 Creatinine 1.9 mg/dL (0.8-1.5) H 05/20/18 05:59 Est GFR ( Amer) 42 05/20/18 05:59 Est GFR (Non-Af Amer) 35 05/20/18 05:59 POC Glucose (mg/dL) 94 mg/dL (65-110) 05/20/18 21:31 Random Glucose 115 mg/dL (75-110) H 05/20/18 05:59 Hemoglobin A1c 5.1 % (4.2-6.5) 05/10/18 06:11 Lactic Acid 1.7 mmol/L (0.7-2.1) 05/08/18 15:18 Calcium 7.7 mg/dl (8.6-10.4) L 05/20/18 05:59 Phosphorus 3.5 mg/dL (2.5-4.5) 05/20/18 05:59 Magnesium 1.8 mg/dL (1.6-2.3) 05/20/18 05:59 % Saturation 48 (20-55) 05/19/18 12:07 Ferritin 721.0 ng/mL 05/19/18 12:07 Total Bilirubin 1.2 mg/dL (0.2-1.3) 05/20/18 05:59 AST 42 U/L (17-59) 05/20/18 05:59 ALT 42 U/L (21-72) 05/20/18 05:59 Alkaline Phosphatase 89 U/L (38-126) 05/20/18 05:59 Total Creatine Kinase < 20 U/L (55-170) L 05/19/18 21:14 CK-MB (Mass) 0.51 ng/mL (0.0-3.38) 05/19/18 21:14 Troponin I 0.0500 ng/mL (0.00-0.120) 05/19/18 21:14 Total Protein 6.4 g/dL (6.3-8.3) 05/20/18 05:59 Albumin 4.2 g/dL (3.5-5.0) 05/20/18 05:59 Globulin 2.2 gm/dL (2.2-3.9) 05/20/18 05:59 Albumin/Globulin Ratio 1.9 (1.0-2.1) 05/20/18 05:59 Amylase < 30 U/L (30-110) L 05/08/18 12:44 Lipase < 10 U/L (23-300) L 05/08/18 12:44 Vitamin B12 > 1000 pg/mL (239-931) H 05/12/18 06:14 25-OH Vitamin D Total 52.2 NG/ML (30.0-100.0) 05/10/18 06:11 Folate > 20.0 ng/mL 05/12/18 06:14 Procalcitonin 3.68 NG/ML (0.19-0.49) H 05/09/18 17:26 Free T4 0.69 ng/dL (0.78-2.19) L 05/20/18 05:59 Thyroxine (T4) 1.81 ug/dL (5.5-11.0) L 05/20/18 05:59 TSH 3rd Generation 1.97 mIU/L (0.46-4.68) 05/20/18 05:59 Cortisol AM Sample > 123.0 ug/dL (4.46-22.7) H 05/18/18 07:08 Plasma Cortisol PM 2.00 ug/dL (1.7-14.1) 05/08/18 14:58 Arterial Blood Potassium 3.6 mmol/L (3.6-5.2) 05/19/18 10:50 Venous Blood Potassium 3.5 mmol/L (3.6-5.2) L 05/10/18 17:47 Urine Color Jing (YELLOW) 05/17/18 12:22 Urine Clarity Hazy (Clear) 05/17/18 12:22 Urine pH 5.0 (5.0-8.0) 05/17/18 12:[address] 1.025 (1.003-1.030) 05/17/18 12:22 Urine Protein 2+ mg/dL (NEGATIVE) H 05/17/18 12:22 Urine Glucose (UA) 1+ mg/dL (Normal) H 05/17/18 12:22 Urine Ketones Negative mg/dL (NEGATIVE) 05/17/18 12:22 Urine Blood 3+ (NEGATIVE) H 05/17/18 12:22 Urine Nitrate Negative (NEGATIVE) 05/17/18 12:22 Urine Bilirubin Negative (NEGATIVE) 05/17/18 12:22 Urine Urobilinogen Normal mg/dL (0.2-1.0) 05/17/18 12:22 Ur Leukocyte Esterase Trace Vicente/uL (Negative) 05/17/18 12:22 Urine WBC (Auto) 3 /hpf (0-5) 05/17/18 12:22 Urine RBC (Auto) 296 /hpf (0-3) H 05/17/18 12:22 Ur Squamous Epith Cells 4 /hpf (0-5) 05/17/18 12:22 Amorphous Sediment Rare /ul (<OCC) H 05/17/18 12:22 Urine Bacteria Few (<OCC) H 05/17/18 12:22 Hyaline Casts 3-5 /lpf (0-2) H 05/17/18 12:22 Urine Yeast (Budding) Many /hpf (NEGATIVE) H 05/17/18 12:22 Stool Occult Blood Negative (NEGATIVE) 05/12/18 19:51 Tacrolimus (LC/MS/MS) 3.6 mcg/L (5.0-20.0) L 05/20/18 05:59 Thyroperoxidase Ab <1 IU/mL (<9) 05/10/18 07:06 Thyroglobulin Antibody <1 IU/mL (< OR = 1) 05/10/18 07:06 Heparin-induced Plt Ab Negative (Negative) 05/17/18 12:14 C. difficile Ag & Toxin Negative (NEGATIVE) 05/10/18 10:09 Hep Bs Antigen Negative (NEGATIVE) 05/12/18 16:08 Hep Bs Antibody Negative (NEGATIVE) 05/12/18 16:08 Hep B Core IgM Ab Negative (NEGATIVE) 05/12/18 16:08 Hepatitis C Antibody Negative (NEGATIVE) 05/12/18 16:08 HIV 1&2 Antibody Screen Negative (NEGATIVE) 05/09/18 10:51 Blood Type O POSITIVE 05/11/18 13:59 Antibody Screen Negative 05/11/18 13:59 - Hospital Course Hospital Course: 72 years old [place] male was brought to the ED at [facility], because of sudden onset of slurred speech, confusion after having a blood test done at a laboratory. In the ED, he was found to be hypothermic, hypoglycemic with a generalized exfiolative skin rash. His serum TSH was also elevated. 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 In the ED, he was given IV D10W, IV Solumedrol and IV SYNthroid. and was sent to ICU for monitoring. He is known to have a hypertrophic cardiomyopathy, a s/p ventricular tachycardia with insertion of an automatic cardiac defibrillator, a bronchial asthma, a s/p renal transplant, a gout, a hypertension, a non-insulin dependent diabetes mellitus, a chronic atrial fibrillation, a s/p colon resection for cancer, a hypothyroidism. There is no recent fever, cough, difficulty in urination. 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 In ICU, he was put on Azactam and Cubicin IV by Dr Nash. He was evaluated by Dr Tovar on 05/11/2018, and it was determined that no surgical intervention to the left knee was indicated. The exfioliative dermatitis gradually subsided, but the patient became anuric with raising serum BUN and creatinine. He refused hemodialysis initially, but agreed to have it done on 05/12/2018. He tolerated HD poorly with development of hypotension and tachycardia.. Sputum culture grew E. Coli ESBL (+). His IV antibiotics were changed to Merem, Doxycycline and Mycofungin IV. He became dyspneic and was put on BIPAP with a FIO2 100%. CXR revealed severe CHF. Hgb : 6.5 WBC: 22,000 with 36 B. He received PRC transfusion. On 05/19/2018, an attempt to insert a right subclavian permacath was unsuccessful, and a left femoral Permacath was inserted instead. The patient became hypotensive afterward and had to be put on IV Levophed. On 05/20/2018, he became gradually unresponsive, and was unable to tolerate HD. His respiration became agonal, and he on 05/21/2018 at 12:10 AM with his family present. - Date & Time of H&P Date of H&P: 05/08/18 Discharge Exam - Head Exam Head Exam: ATRAUMATIC, NORMOCEPHALIC Discharge Plan - Follow Up Plan Condition: Disposition: WITH WITHOUT AUTOPSY Clinical Quality Measures - Date & Time of Discharge Summary Date of Discharge Summary: 05/24/18 Time of Discharge Summary: 11:44
--- NOTE | 2018-05-25 17:28 | CARD ---
APPROVED REPORT Date of service: 05/19/2018 EKG Measurement Heart [id number] [id number] <Conclusion> Sinus rhythm with premature atrial complexes and premature ventricular complexes or fusion complexes Left anterior fascicular block ST & T wave abnormality, consider anterolateral ischemia Prolonged QT Abnormal ECG
--- NOTE | 2018-05-25 17:47 | CARD ---
APPROVED REPORT Date of service: 05/19/2018 EKG Measurement Heart [id number] <Conclusion> Sinus rhythm with occasional premature ventricular complexes and premature atrial complexes Left axis deviation Nonspecific T wave abnormality Abnormal ECG
== END 2018-05-21 02:00 | DRG 871 ==
LOC: C.ER 11:32 → C.9I 15:27
PROVIDERS: ADMIT Internal Medicine Cardiovascular Disease; ATTEND Internal Medicine Cardiovascular Disease
PROC: B543ZZA Ultrasonography of Right Jugular Veins, Guidance (ICD-10-PCS; 2018-05-12)
PROC: 05H533Z Insertion of Infusion Device into Right Subclavian Vein, Percutaneous Approach (ICD-10-PCS; 2018-05-12)
PROC: 30233K1 Transfusion of Nonautologous Frozen Plasma into Peripheral Vein, Percutaneous Approach (ICD-10-PCS; 2018-05-12)
PROC: 5A1D70Z Performance of Urinary Filtration, Intermittent, Less than 6 Hours Per Day (ICD-10-PCS; 2018-05-13)
PROC: B5181ZA Fluoroscopy of Superior Vena Cava using Low Osmolar Contrast, Guidance (ICD-10-PCS; 2018-05-19)
PROC: 02HV33Z Insertion of Infusion Device into Superior Vena Cava, Percutaneous Approach (ICD-10-PCS; principal; 2018-05-19 13:45)
DX: A41.9 Sepsis, unspecified organism (principal); N18.6 End stage renal disease; G93.41 Metabolic encephalopathy; I50.33 Acute on chronic diastolic (congestive) heart failure; I33.0 Acute and subacute infective endocarditis; R65.21 Severe sepsis with septic shock; Z94.0 Kidney transplant status; I42.2 Other hypertrophic cardiomyopathy; A15.0 Tuberculosis of lung; I47.2 Ventricular tachycardia; M00.9 Pyogenic arthritis, unspecified; I31.3 Pericardial effusion (noninflammatory); N17.9 Acute kidney failure, unspecified; T81.31XA Disruption of external operation (surgical) wound, not elsewhere classified, initial encounter; T86.19 Other complication of kidney transplant; I13.2 Hypertensive heart and chronic kidney disease with heart failure and with stage 5 chronic kidney disease, or end stage renal disease; I82.210 Acute embolism and thrombosis of superior vena cava; T68.XXXA Hypothermia, initial encounter; L26 Exfoliative dermatitis; I48.2 Chronic atrial fibrillation; E11.649 Type 2 diabetes mellitus with hypoglycemia without coma; E11.22 Type 2 diabetes mellitus with diabetic chronic kidney disease; J44.9 Chronic obstructive pulmonary disease, unspecified; I25.10 Atherosclerotic heart disease of native coronary artery without angina pectoris; M10.9 Gout, unspecified; Z85.038 Personal history of other malignant neoplasm of large intestine; E78.00 Pure hypercholesterolemia, unspecified; E06.3 Autoimmune thyroiditis; E07.81 Sick-euthyroid syndrome; E86.9 Volume depletion, unspecified; G47.33 Obstructive sleep apnea (adult) (pediatric); Y83.8 Other surgical procedures as the cause of abnormal reaction of the patient, or of later complication, without mention of misadventure at the time of the procedure; Z51.5 Encounter for palliative care; Z66 Do not resuscitate; Z99.2 Dependence on renal dialysis; Z91.15 Patient's noncompliance with renal dialysis; Z79.4 Long term (current) use of insulin; D64.9 Anemia, unspecified